=== PATIENT | male | born 2000 | race Caucasian/White ===

== ENCOUNTER 2020-12-19 14:21 | Emergency (ER) | payer OTHER, SELFPAY ==
[2020-12-19 14:35] VITALS: BP 133/93; PULSE 96; RESP 20; TEMP 37.1; O2SAT 100
--- NOTE | 2020-12-19 14:40 | ED.SKABFB ---
HPI - Skin/Abscess/Foreign Bdy General Chief complaint: Skin/Abscess/Foreign Body Stated complaint: Insect Bite Time Seen by Provider: 12/19/20 14:40 Source: patient Mode of arrival: ambulatory Limitations: no limitations History of Present Illness HPI narrative: Erick Triana is a 20 yo male with no PMH who comes to express care with a small lesion on back of L knee. States he has had some pus draining from in the last few days but there is no tenderness no induration no itching. He has been told the past he has high blood pressure he does not take any medication currently does not help PCP Related Data Allergies Allergy/AdvReac Type Severity Reaction Status Date / Time DUST MITES Allergy Unknown Uncoded 12/28/17 16:06 Molds and Smuts Allergy Unknown Uncoded 05/03/19 11:03 Review of Systems Review of Systems: Narrative: CONSTITUTIONAL: Denies fever, chills, sweats. EYES: Denies visual changes, redness, discharge. ENT: Denies rhinorrhea, congestion, sore throat, otalgia. CARDIOVASCULAR: Denies chest pain, palpitations, edema. RESPIRATORY: Denies dyspnea, wheezing, cough GASTROINTESTINAL: Denies abdominal pain, nausea, vomiting, diarrhea. GENITOURINARY: Denies dysuria, hematuria, abnormal discharge SKIN: Denies rash or itching. Lesion back of left knee that is about 2 cm no drainage NEUROLOGIC: Denies numbness, or focal weakness. PSYCHIATRIC: Denies anxiety or depression. [facility], [facility] Past Medical History Medical History Hypertension Family History Family History Other Diabetes mellitus Heart disease Hypertension Social History Social History (Updated 12/19/20 @ 14:53 by Nadine [place] CNP) Smoking status: Never smoker Alcohol intake: current Comments At time of signature, I agree with nursing past medical, surgical, social and family history. There is no relevant family history pertinent to the presenting complaint. Exam Narrative: Exam Narrative: GENERAL: This is a well-nourished, well-developed patient, in mild distress. HEAD: normocephalic, atraumatic. EYES: . Sclera clear/white. Vision is grossly intact. EARS: External ears normal, . Hearing grossly intact. NOSE: External nose normal without nasal discharge, nares without redness, no rhinorrhea. THROAT: Mucous membranes moist, NECK: Neck supple, CARDIOVASCULAR: Regular rate and rhythm without murmurs, gallops, or rubs. RESPIRATORY: Clear to auscultation. Breath sounds equal bilaterally. No wheezes, rales, or rhonchi. GASTROINTESTINAL: Abdomen soft, SKIN: warm, intact with 2 cm lesion on back of left knee with no induration no pain no tenderness it is open but no drainage or pus noted NEURO: awake, alert, and oriented to person, place and time. There were no obvious focal neurologic abnormalities. Steady gait EXTREMITIES: Normal range of motion. BACK: Nontender without deformity Course Course Emergency Course: Patient comes to [facility] states that he has a lesion on the back of his knee( left) he is concerned is a brown recluse spider bite. There is no swelling of his leg he has no tenderness of the area Started on Keflex and told to use Neosporin on area; cover when wearing clothing that will rub on the back of knee Given referral for PCP Vital Signs Vital signs: Vital Signs Temperature 98.7 F 12/19/20 14:35 Pulse Rate 96 12/19/20 14:35 Respiratory Rate 20 12/19/20 14:35 Blood Pressure 133/93 H 12/19/20 14:35 Pulse Oximetry 100 12/19/20 14:35 Temperature 98.7 F 12/19/20 14:35 Pulse Rate 96 12/19/20 14:35 Respiratory Rate 20 12/19/20 14:35 Blood Pressure 133/93 H 12/19/20 14:35 Pulse Oximetry 100 12/19/20 14:35 MDM - Skin/Abscess/Foreign Bdy Differential Diagnosis Differential diagnosis: Likely abscess of skin or subcutaneous tissue, urticaria, cellulitis, insect bites and other
== END 2020-12-19 15:02 | disposition home or self-care (01) ==
PROVIDERS: Emergency Provider Nurse Practitioner
DX: L73.9 Follicular disorder, unspecified (principal); I10 Essential (primary) hypertension; K76.0 Fatty (change of) liver, not elsewhere classified
CPT/HCPCS: 99213; G0463

== ENCOUNTER 2023-11-20 18:43 | Emergency (ER) | payer OTHER, SELFPAY ==
[2023-11-20 18:54] VITALS: BP 126/76; PULSE 60; RESP 16; TEMP 36.4; O2SAT 100
--- NOTE | 2023-11-20 19:01 | ED.ABDPAIN ---
HPI - Abdominal Pain General Chief Complaint: Abdominal Pain Stated Complaint: Stomach and Middle Chest Pain Time Seen by Provider: 11/20/23 19:01 Source: patient Mode of arrival: ambulatory Limitations: no limitations History of Present Illness HPI narrative: 23-year-old male presents with complaint of burning, bubbling and belching to epigastric region and upper esophagus for the past 2 days. Has tried Pepto-Bismol and Tums without relief. Patient reports that he has had problems with indigestion for some time but has never spoke with his primary care physician about it. Patient drinks diet Coke often. Also reports that he eats spicy foods often. Denies nausea vomiting diarrhea. Having normal bowel movements. Afebrile. All systems reviewed and negative except as noted. Related Data Allergies Allergy/AdvReac Type Severity Reaction Status Date / Time No Known Allergies Allergy Verified 11/20/23 18:50 Review of Systems Review of Systems: CONSTITUTIONAL: Denies fever, chills, or sweats. EYES: Denies visual changes, redness, or discharge. ENT: Denies rhinorrhea, congestion, sore throat, or otalgia. CARDIOVASCULAR: Denies chest pain, palpitations, or edema. RESPIRATORY: Denies cough or dyspnea. GASTROINTESTINAL: Denies abdominal pain, nausea, vomiting, or diarrhea. REports burning and bubbling to epigastric region traveling up esophagus with alot of belching. GENITOURINARY: Denies dysuria or hematuria. SKIN: Denies rash or itching. MUSCULOSKELETAL: Denies back pain, joint pain, or myalgia. NEUROLOGIC: Denies headache, numbness, or weakness. PSYCHIATRIC: Denies anxiety or depression. All other systems reviewed are negative, except as documented in HPI. PMFSH Past Medical History Medical History Hypertension Family History Family History Other Diabetes mellitus Heart disease Hypertension Social History Social History (Updated 12/19/20 @ 14:53 by Nadine [place], MAYRLOU) Smoking status: Never smoker Alcohol intake: current Comments At time of signature, agree with nursing past medical, surgical, social and family history. There is no relevant family history pertinent to the presenting complaint. Exam Narrative: GENERAL: This is a well-nourished, well-developed patient, in no apparent distress. HEAD: normocephalic, atraumatic. EYES: PERRL. Sclera clear/white. Vision is grossly intact. EARS: External ears normal NOSE: External nose normal NECK: Neck supple, non-tender without lymphadenopathy, masses or thyromegaly. CARDIOVASCULAR: Regular rate and rhythm without murmurs, gallops, or rubs. RESPIRATORY: Clear to auscultation. Breath sounds equal bilaterally. No wheezes, rales, or rhonchi. GASTROINTESTINAL: Abdomen soft, non-tender, nondistended. Bowel sounds are active. No hepato-splenomegaly, or palpable masses. No guarding. SKIN: warm, Dry, intact with no suspicious lesions or rash, good texture and turgor. NEURO: awake, alert, and oriented to person, place and time. There were no obvious focal neurologic abnormalities. EXTREMITIES: No joint tenderness, effusion, or edema noted. Course Course Level of Care: Express Care Visit Vital Signs Vital signs: Vital Signs Temperature 36.4 C 11/20/23 18:54 Pulse Rate 60 11/20/23 18:54 Respiratory Rate 16 11/20/23 18:54 Blood Pressure 126/76 11/20/23 18:54 Pulse Oximetry 100 11/20/23 18:54 Oxygen Delivery Room Air 11/20/23 18:54 Temperature 36.4 C 11/20/23 18:54 Pulse Rate 60 11/20/23 18:54 Respiratory Rate 16 11/20/23 18:54 Blood Pressure 126/76 11/20/23 18:54 Pulse Oximetry 100 11/20/23 18:54 Oxygen Delivery Room Air 11/20/23 18:54 Reviewed MDM - Abdominal Pain MDM Narrative Medical decision making narrative: no abdominal tenderness on exam. Recommend [id number] Pepcid, improving diet. Recommend follow-up with primary care physician and discuss possible referral to GI specialist. Patient is in no pain distress, nontoxic. Patient is aware of diagnosis, understands and agrees to treatment plan. Anticipatory guidance given. Patient agrees to follow-up as directed and is aware of reasons to seek care at the emergency department. Portions of this record may have been created with voice recognition software Discharge Plan Discharge Clinical Impression: Indigestion Patient Disposition: Home, Self-Care Condition: Stable Instructions: Indigestion (ED) Additional Instructions: Take over the counter pepcid twice a day for indigestion. Avoid foods that increase indigestion symptoms such as spicy, greasy, fatty foods. Carbondated beverages such as soda. Beverages with caffeine such as soda and coffee. [place] fruits and citrus beverages. Chocolate and alcohol. Avoid eating late night meals. See your doctor in 1 week for further evaluation. If you have severe abdominal pain with fever and vomiting go to the ER. Prescriptions: New famotidine 20 mg tablet 20 mg PO BID 30 Days Qty: 60 0RF Follow-up/Referrals: Lio,DAKOTAH Bonilla [Primary Care Provider] - 1 Week Time of Disposition: 19:13
== END 2023-11-20 19:18 | disposition home or self-care (01) ==
PROVIDERS: Emergency Provider Nurse Practitioner Family; PCP Physician Assistant
DX: K30 Functional dyspepsia (principal); I10 Essential (primary) hypertension
CPT/HCPCS: 99213; G0463

== ENCOUNTER 2024-07-30 15:46 | Emergency (ER) | payer OTHER, SELFPAY ==
--- NOTE | ~2024-07-30 | XR_ITS ---
Exam: Abdomen 2V HISTORY: nausea, constipation COMPARISON: None. TECHNIQUE: Supine images of the abdomen and pelvis. FINDINGS: Bowel gas pattern is non-obstructive and nonspecific. There is no free air or deep sulci. No pathologic calcifications are seen. Lung bases are unremarkable. Bones and soft tissues are unremarkable. IMPRESSION: Nonspecific, nonobstructive bowel gas pattern. Reviewed, dictated and finalized at location A. OW GLASS CUTTER OFF
--- NOTE | 2024-07-30 16:07 | ED.URI ---
HPI - URI/Sore Throat General Chief Complaint: Upper Respiratory Infection Stated Complaint: Nausea,Headache,Chills Time Seen by Provider: 07/30/24 16:15 Source: patient and RN notes reviewed Mode of arrival: ambulatory Limitations: no limitations History of Present Illness HPI Narrative: 24-year-old male presented for complaint of nausea for 3 days. Endorses a small episode of vomiting this morning, chills and headache intermittently. Two days ago he went to an outside emergency room on 2 separate occasions for complaint of nausea. He returned the 2nd time requesting a CT scan stating he was dizzy, and was given Ativan but no scan. He says he was prescribed Zofran which helps temporarily. States he had no pain last evening, but pain returned today, and is worse in the mornings. Patient admits to constipation for about 2 weeks. He states he has taken laxatives and several enemas x4 days, but continues to have small stools. Patient denies abdominal pain, hematochezia, melena, fevers or chills. Endorses a diagnosis of gastritis and H pylori 6-8 months ago, and takes pantoprazole occasionally. Stopped taking semaglutide 2 weeks ago. Related Data Home Medications ?Medication ?Instructions ?Recorded ?Confirmed ?Last Taken ?Type pantoprazole 40 mg tablet,delayed 40 mg PO QAM 12/24/23 Unknown History release Allergies Allergy/AdvReac Type Severity Reaction Status Date / Time No Known Allergies Allergy Verified 07/30/24 15:54 Review of Systems Review of Systems: per HPI All systems reviewed & are unremarkable except as noted in HPI and below PMFSH Past Medical History Medical History (Updated 07/30/24 @ 16:46 by Jeanie Lino APRN) H. pylori infection Gastritis Hypertension Surgical History Surgical History History of tonsillectomy Family History Family History Other Diabetes mellitus Heart disease Hypertension Social History Social History Smoking status: Never smoker Alcohol intake: current Substance use: never Do You Feel Safe in your Home?: Yes Lack of Transportation: No Lack of Food: Never True Current Housing: I Have Housing Concerned About Future Housing: No Difficulty Paying Gas/Electric Bills: No Difficulty Paying for Meds: No Currently Unemployed: YES Education: High School Diploma/GED Difficulty w/ Childcare or Family Care: No Comments At time of signature, I have reviewed and agree with nursing past medical, surgical, social and family history unless otherwise noted. Please see nursing chart for further information. There is no relevant family history pertinent to the presenting complaint Exam Narrative: GENERAL: Well-appearing, and in no acute distress. EYES: EOMI. Conjunctivae normal. ENT: Mucous membranes pink and moist. CHEST: No respiratory distress. Clear to auscultation. HEART: Regular rate and rhythm. No murmur appreciated. Normal peripheral pulses. ABDOMEN: abd soft, nondistended, normal active bowel sounds. Nontender abdomen; No guarding, rebound tenderness, asymmetry EXTREMITIES: Normal range of motion. No edema. SKIN: Warm, dry, no rash. Capillary refill normal. Normal skin turgor. NEURO: No focal deficits. Alert and oriented x3. PSYCH: flat affect, appears anxious Course Course Emergency Course: Patient is aware of diagnosis, understands and agrees to treatment plan. Anticipatory guidance given. Patient agrees to follow-up as directed and is aware of reasons to seek care at the emergency department. Portions of this record may have been created with voice recognition software Level of Care: Express Care Visit Vital Signs Vital signs: Vital Signs Temperature 97.4 F L 07/30/24 16:17 Pulse Rate 69 07/30/24 16:17 Respiratory Rate 16 07/30/24 16:17 Blood Pressure 146/89 H 07/30/24 16:17 Pulse Oximetry 99 07/30/24 16:17 Temperature 97.4 F L 07/30/24 16:17 Pulse Rate 69 07/30/24 16:17 Respiratory Rate 16 07/30/24 16:17 Blood Pressure 146/89 H 07/30/24 16:17 Pulse Oximetry 99 07/30/24 16:17 MDM - URI/Sore Throat MDM Narrative Medical decision making narrative: Discussed physical exam findings, neg flu and covid. Offered Rx metoclopramide, refill ppi, and abdominal xray. Pt declined and states he will probably go to another ER. Planned for DC. Advised supportive measures and signs/symptoms to go to the ER. Pt is appropriate for outpt treatment and f/u. At discharge he decided he was agreeable to the abdominal xray. Abdominal xray reviewed with pt. He says he will f/u with pcp tomorrow, nausea is improving and 'it comes and goes.' Advised supportive measures and signs/symptoms to go to the ER. Pt is appropriate for outpt treatment and f/u. Differential Diagnosis Differential diagnosis: Likely other (GERD, PUD, gastritis, pancreatitis, gallbladder disease, hepaitits, acute NM, pericarditis, aortic dissection, pneumonia, pyelonephritis, bowel obstruction, PE, ingested foreign body) Lab Data Labs: Lab Results 07/30/24 Range/Units 16:27 POC Influenza A Ag Negative (Negative) POC Influenza B Ag Negative (Negative) POC SARS CoV-2 Ag Negative (Negative) Discharge Plan Discharge Clinical Impression: Nausea Patient Disposition: Home, Self-Care Condition: Stable Instructions: Acute Nausea and Vomiting (ED) Additional Instructions: Stay hydrated. Take small sips of fluid containing electrolytes frequently. Clear liquids (broth, jello, tea, sprite, pedialyte) slowly advance to [place] foods (bananas, rice, applesauce, toast, crackers) Avoid fatty, greasy, fried or spicy foods. Limit dairy until symptoms are improved. Take the zofran and pantoprazole as previously prescribed Follow-up with your PCP tomorrow. Go to the ER for worsening symptoms or concerns Patient Language: Austrian Prescriptions: No Action pantoprazole 40 mg tablet,delayed release (DR/EC) 40 mg PO QAM Follow-up/Referrals: Lio,DAKOTAH Bonilla [Primary Care Provider] - Time of Disposition: 18:28
[2024-07-30 16:17] VITALS: BP 146/89; PULSE 69; RESP 16; TEMP 36.3; O2SAT 99
[2024-07-30 16:29] LABS: EDCOVIDSCREEN Negative (Negative); EDINFLUASCREEN Negative (Negative); EDINFLUBSCREEN Negative (Negative)
--- OUTSIDE RECORDS SUMMARY | 2024-08-06 19:02 | XMS_ITS | Encounter Summary ---
Author Organization [facility] Address [address] [facility] [place] [address] Care Team Providers Care [employer] Liaison Officer Name Role Phone Godfrey Curry MD Primary Care Provider Dipika Reddy MD Unavailable Reason for Visit * Reason Onset Date Comments Concerns 02/03/2019 Encounter Details Date Type Department Care Team (Late st Contact Info) Description 02/03/[address] [facility] - [facility] [address] [place] [id number] Godfrey Curry MD [address] [place] [phone] Concerns Social History Tobacco Use Types Packs/Day Years Used Date Smoking Tobacco: Never Smokeless Tobacco: Never Alcohol Use Standard Drinks/Week Comments No 0 (1 standard drink = 0.6 oz pur e alcohol) Sex and Gender Information Value Date Recorded Sex Assigned at Not on file Gender Identity Not on file Sexual Orientation Not on file documented as of this encounter Functional Status Functional Status Response Date of Assess ment Is person deaf or have serious hearing difficult y? No 01/20/2018 Is person blind or have serious difficulty seein g? No 01/20/2018 Does person have serious dif ficulty walking/climbing stairs? No 01/20/2018 Does person have difficulty dressing/bathing? No 01/20/2018 Does person have difficulty doing errands alone? No 01/20/2018 Cognitive Status Response Date of Assessm ent Does person have difficulty concentrating/remembering/making decisions? No 01/20/2018 documented as of this encounter Miscellaneous Notes * Telephone Encounter - Sarika Issa MD - 02/03/2019 4:20 PM CDT Mom reports that Erick has had knots on his testicles for quite awhile now. He says one is getting larger. They are not painful and he is having no other symptoms. Does not sound like testicular torsion. Advised that mother make an acute visit for him to come in to be examined. Transferred her to appointment line. Nemesio Issa * Telephone Encounter - Jelly Moulton - 02/03/2019 3:49 PM CDT Erick Triana's, 18 year old male, mother is calling with concerns. Mother requested to speak to or a provider about some concerns she's having about the pt. Mother did not disclose concerns in details but requested a provider please call her back at [phone] Instructed that provider will call back at their earliest convenience. Jelly Moulton 1673 documented in this encounter Plan of Treatment Not on file documented as of this encounter Visit Diagnoses Not on filedocumented in this encounter Care Teams [employer] Liaison Officer Relationship Specialty Start Date End Date Godfrey Curry MD [address] [place] [phone] PCP - General Pediatrics 05/01/14 Dipika eRddy MD [address] [place] [phone] Resident Student Resident 11/27/15 documented as of this encounter
--- OUTSIDE RECORDS SUMMARY | 2024-08-06 19:02 | XMS_ITS | Encounter Summary ---
Author Organization [facility] Address [address] [facility] [place] [address] Care Team Providers Care Outpatient Scheduler Name Role Phone Godfrey Curry MD Primary Care Provider Dipika Reddy MD Unavailable Reason for Visit * Auth/Cert Specialty Diagnoses / Procedures Referred By Contac t Referred To Contact Diagnoses Elevated liver enzymes Elevated liver enzymes [R74.8] Procedures BIOPSY LIVER (NEEDLE/PERCUTANEOUS) Referral ID Status Reason Start Date Expiration Date Visits Re quested Visits Authorized [id number] 1 1 Encounter Details Date Type Department Care Team (Late st Contact Info) Description 01/20/2018 10:48 AM CDT Anesthesia Event [facility] - Endoscopy [address] [place] [address] Js Lang MD [facility] [place] [address] Alok Cisneros MD [address] [place], [place] [id number] Anesthesia Record Procedure Summary Procedure Name Responsible Anesthesiologist Anesthesia Start Time Anesthesia Stop Time BIOPSY LIVER (NEEDLE/PERCUTANEOU S) (Abdomen) Js Lang MD 01/20/18 1048 01/20/18 1110 Events Date Time Event Comment 01/20/2018 0919 1048 An Start 1048 An Start Data 1049 PT Reassessment 1050 An Induction 1056 Timeout Anesthesia part icipated in timeout at the time documented in the record by nursing. 1106 An Emergence 1106 an stop data 1106 Electnc Sig 1106 ANPTO2 1110 An Stop Meds Name Total fentaNYL 100 mcg/2mL injection 25 mcg midazolam 2 mg/2mL injection 2 mg propofol 200mg/20mL injection 300.82 mg isolyte-S pH 7.4 infusion 300 mL * Agents Name Insp. N2O Exp. Sevoflurane Insp. Sevoflurane * Blood No blood administrations on file. Lines, Drains, and Airways Type Details Placement Removal Peripheral IV Date: 01/20/18; Time: 926; Orientation: Left; Placed By: Oliver Lu RN; Tolerance: Well 01/20/18 0927 by Lena Lu RN 01/20/18 1533 by Asif Bateman RN Procedural Site (Incision) 01/20/18; 0959; Right; Flank; 01/20/18; 213901/20/18 0959 by Anna Raman RN 01/20/182139 by Generic, Auto Release documented in this encounter Social History Tobacco Use Types Packs/Day Years Used Date Smoking Tobacco: Never Smokeless Tobacco: Never Alcohol Use Standard Drinks/Week Comments No 0 (1 standard drink = 0.6 oz pur e alcohol) Sex and Gender Information Value Date Recorded Sex Assigned at Not on file Gender Identity Not on file Sexual Orientation Not on file documented as of this encounter Progress Notes * Js Lang MD - 01/20/2018 11:14 AM CDT ANESTHESIA POSTOP EVALUATION NOTE Procedure: BIOPSY LIVER (NEEDLE/PERCUTANEOUS) (Abdomen) Erick Triana is a 17 y.o. male Patient Vitals for the past 6 hrs: BP Temp Pulse Resp SpO2 O2 DEVICE Pain Scale/Observation Pain Rating Score #1 Functional Goal # Sedation Level 01/20/18 0949 117/75 - - - - - - - - - 01/20/18 0911 - 98 ??F (36.7 ??C) 78 16 98 % Room Air No/denies pain;N 0 3 1- Awake and alert Anesthesia Type: MAC Pre-op Diagnosis Codes: * Elevated liver enzymes [R74.8] Postop Diagnosis: See Surgeon Note Mental Status: awake, sufficiently recovered from acute administration of anesthesia to participatein the evaluation and neurologic status has returned to perioperative level Neuro Status: No numbess, tingling or visual disturbances Respiratory Function: natural Cardiac Function: stable Postop Pain: acceptable to the patient Postop Hydration: adequate Postop Nausea: none Assessment: patient tolerated procedure well, no apparent anesthetic complications and no evidence of recall Patient Disposition: Release from Anesthesia Care documented in this encounter Consult Notes * Js Lang MD - 01/20/2018 9:19 AM CDT ANESTHESIA PREOPERATIVE EVALUATION NOTE Procedure: BIOPSY LIVER (NEEDLE/PERCUTANEOUS) (Abdomen) Vitals: Patient Vitals for the past 6 hrs: Temp Pulse Resp SpO2 O2 DEVICE Pain Scale/Observation Pain Rating Score #1 Functional Goal # Sedation Level 01/20/18 0911 98 ??F (36.7 ??C) 78 16 98 % Room Air No/denies pain;N 0 3 1-Awake and alert ANESTHESIA PRE-EVALUATION NOTE History of Present Illness: The patient is a 17-year-old boy with obesity, well- controlled asthma, and elevated liver enzymes (labs checked to start accutane) who is scheduled for liver biopsy with anesthesia. No GERD, KEYANA, or recent URI. NKDA. Grandmother had PONV after anesthesia. Physical Exam: Airway/Mallampati Score: I Mouth Opening Distance: 3 fingerwidths Teeth: normal Heart: regular rate rhythm Lungs: normal Abdomen Exam: obese Review of Systems: History of anesthetic complications: No GERD: GERD: No Shortness of Breath: No ANESTHESIA PLAN ASA Score: 2 NPO Status: No solids since midnight and No liquids within 2 hours Anesthesia Plan: MAC Planned Induction: intravenous Planned Postop Destination: PACU Anesthetic plan was discussed with: family, mother Anesthetic Plan discussion was: Consented The patient's procedural Anesthetic Plan with discussed with the resident. BMI, Height, Weight Tobacco History Estimated body mass index is 36.11 kg/(m^2) as calculated from the following: Height as of this encounter: 1.79 m (5' 10.47 ). Weight as of this encounter: 115.7 kg (255 lb 1.2 oz). History Smoking Status ??? Never Smoker Smokeless Tobacco ??? Never Used Alcohol History Drug History History Alcohol Use No History Drug Use No Outpatient Medications: Inpatient Medications: No current outpatient prescriptions on file. No current facility-administered medications for this encounter. Allergies: No Known Allergies Problem List: Patient Active Problem List Diagnosis Date Noted ??? Elevated liver enzymes 11/10/2017 Priority: Not Prioritized ??? Viral URI 07/12/2015 Priority: Not Prioritized ??? Allergic pharyngitis 12/03/2014 Priority: Not Prioritized ??? Acne 08/23/2015 Onset age 12-13; moderate, inflammatory and comedonal; no Rx; family more motivated to treat than pt; KP; Dad and Grandfather with scarring acne 01/20/16 improvement using ~ 8 g tretinoin and clindamycin per month; significant concern; add BP wash, increase med use, add doxy 50 mg BID 10/14/16 no change S/P minimal meds (filled 1 mo supply 01/2016 only)ec review reviewed treatment details, emphasized the importance of med adherence; Rx doxy 50mg BID, Clindagel, Retin-A 0.05% cr QHS, OTC BPO 07/07/17 reported improvement using therapy, relapse off; restart doxy, tretinoin, BP wash 10/01/17 moderate on max conservative tx; reviewed isotretinoin/iPLEDGE; baseline labs - plan to start 30mg/d (goal 80mg/day) ??? Follow up 05/07/2014 ??? Myopia 11/02/2013 ??? WCC (well child check) 11/02/2013 ??? Obesity 11/02/2013 with acanthosis nigricans and transaminitis (consider RUTLEDGE) 10/05/2017 GI referral Component 10/01/17 11/02/13 Alk Phos 86 (L) ALT 175 (H) 348 (H) AST 66 (H) 164 (H) Protein Total 7.5 Albumin 4.6 Bili 0.4 eGFR Cholesterol 70 TG 109 HDL 31 (L) LDL <20 VLDL CALC (SLH) 22 Chol HDL Ratio <=5.0 2.3 ??? Allergic rhinitis 05/19/2011 ??? Keratosis pilaris 05/19/2011 Upper>lower arms; face; complicated by folliculitis 01/22/16 LE skin Cx neg Strep, neg Staph 10/14/16 unchanged 10/01/17 prominent Medical History: Past Medical History: Diagnosis Date ??? Acne ??? Allergic rhinitis 05/19/2011 ??? Anatomic airway obstruction ??? Ear infection ??? KEYANA (obstructive sleep apnea) post T&A 2006--continued snoring sleep study 09/22/10 AHI 1.5 O2 desat 91% ??? Seasonal allergies ??? Sinusitis ??? Strep throat ??? Thyroid activity decreased ??? Torsion of testicle R testicle ??? Warts Surgical History: Past Surgical History: Procedure Laterality Date ??? ADENOIDECTOMY ??? Tonsillectomy ??? Tonsillectomy and Adenoidectomy 04/01/07 Lab Tests: Recent Labs Component Name 11/12/17 0957 WBC 6.5 HGB 15.3 HCT 45.6 PLTCOUNT 293 INR 1.0 PTT 25.3 Recent Labs Component Name 11/12/17 0957 SODIUM 140 POTASSIUM 4.1 CHLORIDE 104 CO2 27 BUN 17.4 CREATININE 0.68 Recent Labs Component Name 11/12/17 0957 GLUCOSE 85 CALCIUM 9.85 ALT 176* AST 71* No results for input(s): HCG in the last 34674 hours. documented in this encounter Miscellaneous Notes * Addendum Note - Js Lang MD - 01/26/2018 1:22 PM CDT Addendum created 01/26/18 1322 by Js Lang MD Anesthesia Staff edited * Anesthesia Transfer of Care - Alok Cisneros MD - 01/20/2018 11:13 AM CDT ANESTHESIA TRANSFER OF CARE NOTE Today's Date: 01/20/2018 Date of : 2000 Patient: Erick Triana Procedure(s): BIOPSY LIVER (NEEDLE/PERCUTANEOUS) Surgeon(s): Primary: Jose Rafael Thompson MD Preop Diagnosis: Pre-op Diagnois: * Elevated liver enzymes [R74.8] Post-op Diagnosis: * Elevated liver enzymes [R74.8] . No Known Allergies Vitals: Patient Vitals for the past 3 hrs: BP Temp Pulse Resp SpO2 O2 DEVICE Pain Scale/Observation Pain Rating Score #1 Functional Goal # Sedation Level 01/20/1849 117/75 - - - - - - - - - 01/20/18 0911 - 98 ??F (36.7 ??C) 78 16 98 % Room Air No/denies pain;N 0 3 1- Awake and alert Lines, Drains, and Airways Type Details Placement Removal Peripheral IV 01/20/18; 926; Left; Hand; C Aly RN; 20 Gauge; insyte; Anatomical Landmarks; 2; None; Well 01/20/18926 by Lena Lu RN Intraprocedure I/O Totals isolyte-S pH 7.4 infusion Volume infused 300 ml Patient Transfer Location: PACU Transport Airway: supplemental O2 and spontaneous respirations Transport Monitoring: heart rate and continuous pulse oximetry Complications: None Handoff Given? Yes Checklist or Protocol - The guido handoff elements that must be included in the transfer of care checklist include: 1. Identification of patient. 2. Identification of responsible practitioner (PACU nurse or advanced practitioner). 3. Discussion of pertinent medical history. 4. Discussion of the surgical/procedure course (procedure, reason for surgery, procedure performed). 5. Intraoperative anesthetic management and issue/concerns. 6. Expectations/Plans for the early post-procedure period. 7. Opportunity for questions and acknowledgement of understanding of report from the receiving PACUteam. Alok Cisneros MD documented in this encounter Plan of Treatment Not on file documented as of this encounter Visit Diagnoses Not on filedocumented in this encounter Administered Medications Inactive Administered Medications - up to 3 most recent administrations Medication Order MAR Action Action Date Dose Rate Site fentaNYL (PF) (SUBLIMAZE) injection PRN, Starting on Karen 01/20/18 at 1050, Until Karen 01/20/18 at 1113, Anesthesia Intra-op $ Given 01/20/2018 10:50 AM CDT 25 mcg isolyte-S pH 7.4 infusion CONTINUOUS PRN, Starting on Karen 01/20/18 at 1050, Until Karen 01/20/18 at 1113, Anesthesia Intra-op $ New Bag/Syringe 01/20/2018 10:50 AM CDT midazolam (VERSED) injection PRN, Starting on Karen 01/20/18 at 1046, Until Karen 01/20/18 at 1113, Anesthesia Intra-op $ Given 01/20/2018 10:46 AM CDT 2 mg propofol (DIPRIVAN) injection CONTINUOUS PRN, Starting on Karen 01/20/18 at 1050, Until Karen 01/20/18 at 1113, Anesthesia Intra-op $ New Bag/Syringe 01/20/2018 10:50 AM CDT 200 mcg/kg/min 138.84 mL/hr documented in this encounter Care Teams Outpatient Scheduler Relationship Specialty Start Date End Date Labarge, Godfrey Zapata MD [facility] [place] [phone] PCP - General Pediatrics 05/01/14 Dipika Reddy MD [address] [place] [phone] Resident Student Resident 11/27/15 documented as of this encounter
--- OUTSIDE RECORDS SUMMARY | 2024-08-06 19:02 | XMS_ITS | Patient Health Summary ---
Author Organization [facility] Address [address] [place] [address] Care Team Providers Care Svp Monetization Name Role Phone Godfrey Curry MD Primary Care Provider [phone] Dipika Reddy MD Unavailable [phone] Note from [facility],non-owned Affiliates and Associated Physician Practices is amultiple site organization consisting of ambulatory clinics and hospital sitesin [place], [place], [place]. This disclosure is being madepursuant to the Care Everywhere program and may not contain all information available regarding this patient. Last updated 18.[facility] Allergies No known active allergies* Other,Inactive Medications * Be aware that medications may not be up to date on this document. Alwaysverify current medications with the patient. * levocetirizine (XYZAL) 5 MG tablet Take 5 mg by mouth once daily * tretinoin (RETIN-A) 0.05 % cream(Started 07/05/2017) Apply to affected area at bedtime 1 refill remaining * benzoyl peroxide (BENZOYL PEROXIDE) 5 % wash(Started 07/05/2017) Apply to affected area once daily * ibuprofen (MOTRIN) 200 MG tablet Take 400 mg by mouth every 6 hours as needed for Pain * fluticasone propionate (FLONASE) 50 MCG/ACT nasal spray(Started 05/19/2018) [place] 1 spray into each nostril once daily Collaborating Physician: Trevor Mak MD Active Problems Problem Noted Date Diagnosed Date Elevated liver enzymes 11/10/2017 Acne 08/23/2015 Viral URI 07/12/2015 Allergic pharyngitis 12/03/2014 Follow up 05/07/2014 Myopia 11/02/2013 WCC (well child check) 11/02/2013 Obesity 11/02/2013 Allergic rhinitis 05/19/2011 Keratosis pilaris 05/19/2011 Resolved Problems Problem Noted Date Diagnosed Date Resolved Date Cough 05/19/2011 11/02/2013 ADHD (attention deficit hype ractivity disorder) 03/23/2011 12/04/2015 Oppositional defiant disorder 03/23/2011 12/04/2015 Restless legs syndrome (RLS) 12/07/2010 12/04/2015 KEYANA (obstructive sleep apnea) 12/07/2010 12/04/2015 Poor sleep hygiene 12/07/2010 6 Immunizations * DTaP VACCINE IM (6wk-6yrs)(Given 03/19/2006, 01/19/2002, 01/17/2001, 2000, 2000) * HEP A PEDS 2 DOSE(Given 03/19/2006, 10/08/2004) * HEP B VACCINE, PED/ADOL(Given 12/04/2015, 01/19/2002, 2000, 2000) * HIB-PRP-OMP 3 DOSE(Given 01/19/2002, 2000, 2000) * Human Papilloma Virus Vaccine(Given 08/08/2012, 09/25/2011, 07/24/2011) * INFLUENZA(Given 08/17/2013, 06/23/2011) * INFLUENZA VACCINE, QUADR. (FLUZONE; FLULAVAL; FLUARIX; AFLURIA QUADRIVALENT; 6MO+), 0.5 ML (IIV4)(Given 07/12/2015) * MENINGOCOCAL MENINGITIS(Given 07/24/2011) * MMR(Given 03/19/2006, 07/22/2001) * PNEUMOCOCCAL PCV7 CONJ, PEDS(Given 01/19/2002, 01/17/2001, 2000, 2000) * POLIO IPV(Given 03/19/2006, 07/22/2001, 2000, 2000) * TDAP (7yrs+)(Given 07/24/2011) * VARICELLA(Given 12/04/2015, 07/22/2001) Social History Tobacco Use Types Packs/Day Years Used Date Smoking Tobacco: Never Smokeless Tobacco: Never Alcohol Use Standard Drinks/Week Comments No 0 (1 standard drink = 0.6 oz pur e alcohol) Sex and Gender Information Value Date Recorded Sex Assigned at Not on file Gender Identity Not on file Sexual Orientation Not on file Last Filed Vital Signs Vital Sign Reading Time Taken Comments Blood Pressure 150/80 10/25/2018 7:23 PM CDT Pulse 88 10/25/2018 7:24 PM CDT Temperature 36.7 ??C (98 ??F) 10/25/2018 7:23 PM CDT Respiratory Rate 24 10/25/2018 7:24 PM CDT Oxygen Saturation 99% 10/25/2018 7:24 PM CDT Inhaled Oxygen Concentration - - Weight 136.8 kg (301 lb 9.4 oz) 10/25/2018 7:23 PM CDT Height 182.9 cm (6') 05/19/2018 3:25 PM CDT Body Mass Index - - Procedures * EKG 15-LEAD(Performed 10/25/2018) Performed for Other chest pain * XR CHEST 2VW(Performed 10/25/2018) Performed for Other chest pain * HGB HCT PANEL(Performed 01/20/2018) Performed for Liver disorder * US GUIDE NEEDLE PLACEMENT(Performed 01/20/2018) Performed for Elevated liver enzymes * VIRAL CULTURE MISC(Performed 01/20/2018) Performed for Obesity, unspecified classification, unspecified obesity type, unspecified whether serious comorbidity present * BIOPSY LIVER (NEEDLE/PERCUTANEOUS)(Performed 01/20/2018) Performed for Elevated liver enzymes * PATHOLOGY TISSUE EXAM (STL)(Performed 01/20/2018) Performed for Elevated liver enzymes * BLOOD TYPE VERIFICATION(Performed 01/20/2018) * NEEDLE BIOPSY, LIVER(Performed 01/20/2018) Performed for Liver disorder * PREPARE RBC LEUKOREDUCED UNIT(Performed 01/20/2018) * TYPE + SCREEN PANEL(Performed 01/20/2018) Performed for Elevated liver enzymes * PT PTT PANEL(Performed 01/20/2018) Performed for Elevated liver enzymes * CBC W AUTO DIFFERENTIAL(Performed 01/20/2018) Performed for Elevated liver enzymes * CK BLOOD(Performed 11/12/2017) Performed for Liver disorder * PT-INR(Performed 11/12/2017) Performed for Liver disorder * PTT(Performed 11/12/2017) Performed for Liver disorder * TISSUE TRANSGLUTAMINASE AB IGA(Performed 11/12/2017) Performed for Liver disorder * TSH(Performed 11/12/2017) Performed for Liver disorder * IGA BLOOD(Performed 11/12/2017) Performed for Liver disorder * HEPATITIS SCREEN ACUTE(Performed 11/12/2017) Performed for Liver disorder * GGT(Performed 11/12/2017) Performed for Liver disorder * C-REACTIVE PROTEIN(Performed 11/12/2017) Performed for Liver disorder * COMPREHENSIVE METABOLIC PANEL(Performed 11/12/2017) Performed for Liver disorder * CERULOPLASMIN(Performed 11/12/2017) Performed for Liver disorder * BILIRUBIN DIRECT(Performed 11/12/2017) Performed for Liver disorder * SMOOTH MUSCLE ANTIBODY(Performed 11/12/2017) Performed for Liver disorder * MICROSOMAL ANTIBODY LIVER/KIDNEY(Performed 11/12/2017) Performed for Liver disorder * LORI BLOOD SCREEN W/REFLEX TITER(Performed 11/12/2017) Performed for Liver disorder * AMYLASE BLOOD(Performed 11/12/2017) Performed for Liver disorder * LOIJU-0-[id number] BLOOD(Performed 11/12/2017) Performed for Liver disorder * CBC W AUTO DIFFERENTIAL(Performed 11/12/2017) Performed for Liver disorder * TRIGLYCERIDES BLOOD(Performed 10/01/2017) Performed for Encounter for medication monitoring * COMPREHENSIVE METABOLIC PANEL(Performed 10/01/2017) Performed for Encounter for medication monitoring * CBC W AUTO DIFFERENTIAL(Performed 10/01/2017) Performed for Encounter for medication monitoring * CULTURE FUNGUS SKIN HAIR NAIL+FUNGUS SMEAR(Performed 07/05/2017) Performed for Acne vulgaris * CULTURE STAPH AUREUS+STREP A(Performed 01/20/2016) Performed for Acne vulgaris * STREP A SCREEN - POCT (IP) BEAKER(Performed 07/12/2015) * CULTURE STREP GROUP A(Performed 02/04/2015) * STREP A SCREEN DIRECT W RFLX STREP A CULTURE(Performed 02/04/2015) * XR ABD OBSTRUCTION SERIES 2VW(Performed 10/03/2014) Performed for Abdominal pain * URINE MICROSCOPIC ONLY(Performed 10/02/2014) * URINALYSIS REFLEX TO MICROSCOPIC NO CULTURE(Performed 10/02/2014) * CULTURE STREP GROUP A(Performed 04/15/2014) * STREP A SCREEN DIRECT W RFLX STREP A CULTURE(Performed 04/15/2014) * STREP A SCREEN DIRECT W RFLX STREP A CULTURE(Performed 12/18/2013) * CULTURE STREP GROUP A(Performed 12/18/2013) * AST BLOOD(Performed 11/02/2013) Performed for Obesity * ALT(Performed 11/02/2013) Performed for Obesity * LIPID PROFILE(Performed 11/02/2013) Performed for Obesity * URINALYSIS REFLEX TO MICROSCOPIC NO CULTURE(Performed 08/17/2013) * CULTURE URINE(Performed 08/17/2013) * URINE MICROSCOPIC ONLY(Performed 08/17/2013) * LAB RESULTS ORDER(Performed 05/17/2012) * FERRITIN(Performed 04/17/2011) Performed for Restless legs syndrome (RLS) * FERRITIN(Performed 11/13/2010) Performed for Restless legs syndrome (RLS) * PEDIATRIC DIAGNOSTIC POLYSOMNOGRAM(Performed 09/22/2010) * GROSS EXAM PATHOLOGY(Performed 04/01/2007) Results * EKG 15-LEAD (10/25/2018 8:39 PM CDT) Ventricular Rate 74 BPM CG MUSE Atrial Rate 74 BPM CG MUSE P-R Interval 154 ms CG MUSE QRS Duration ms 118 ms CG MUSE Q-T Interval ms 382 ms CG MUSE QTC Calculation (Bezet) 424 ms CG MUSE Calculated P [place] 23 degrees CG MUSE Calculated R [place] -17 degrees CG MUSE Calculated T [place] 22 degrees CG MUSE Interpretation EKG Normal sinus rhythm with sinus arrhythmia Leftward axis No previous ECGs available Confirmed by MICHELET FABIAN ([id number]) on 11/01/2018 12:17:17 PM CG MUSE 10/25/2018 8:39 PM CDT 11/01/2018 12:17 PM CDT Shauna Robles MD ECG ORDERABLES [facility] * XR CHEST PA AND LATERAL (10/25/2018 8:36 PM CDT) Anatomical Region Laterality Modality Chest Radiographic Christine ging 10/26/2018 7:36 AM CDT Impressions 10/26/2018 7:37 AM CDT Clear lungs. Reading Radiologist: Yas Julien MD on 10/26/2018 at 7:37 AM Narrative 10/26/2018 7:37 AM CDT EXAMINATION: CHEST 2 VIEWS HISTORY: 18-year-old with chest pain. COMPARISON: None. FINDINGS: PA and lateral views of the chest demonstrate clear lungs without focal consolidation, pleural effusion, or pneumothorax. The cardiomediastinal silhouette is normal. The visible osseous structures appear intact. Procedure Note Yas Julien MD - 10/26/2018 EXAMINATION: CHEST 2 VIEWS HISTORY: 18-year-old with chest pain. COMPARISON: None. FINDINGS: PA and lateral views of the chest demonstrate clear lungs without focal consolidation, pleural effusion, or pneumothorax. The cardiomediastinal silhouette is normal. The visible osseous structures appear intact. IMPRESSION Clear lungs. Reading Radiologist: Yas Julien MD on 10/26/2018 at 7:37 AM Shauna Robles MD DIAGNOSTIC IMAGIN G ORDERABLES * HGB HCT PANEL (01/20/2018 2:51 PM CDT) Hemoglobin 14.6 13.0 - 16.0 gm/dL 01/20/2018 3:10 PM CDT [facility] Hematocrit 41.5 37.0 - 49.0 % 01/20/2018 3:10 PM CDT [facility] Blood BLOOD SPECIMEN / Unknown Venipuncture / Unknown 01/20/2018 2:51 PM CDT 01/20/2018 3:03 PM CDT Jose Rafael Thompson MD LAB - HEMATOLOGY ORD ERABLES [facility] [address] [place] [address] * US GUIDE NEEDLE PLACEMENT (01/20/2018 11:12 AM CDT) Narrative [facility] - 01/21/2018 9:35 AM CDT No Dictation. Jose Rafael Thompson MD US ORDERABLES [facility] [address] [place] [address] * VIRAL CULTURE MISC (01/20/2018 10:58 AM CDT) Viral Culture No virus isolated. 01/28/2018 8:41 AM CDT [facility] ([facility]) Microbiology NEEDLE BIOPSY OF LIVER / Unknown Collection / Unknown 01/20/2018 10:58 AM CDT 01/20/2018 11:14 AM CDT Narrative [facility] ([facility]) - 01/28/2018 8:41 AM CDT Performed at: ??01 - [facility] [address] ??[id number] Senior Quality Methods Specialist: Wesley Jose MD, Phone: ??[phone] Jose Rafael Thompson MD LAB - MICROBIOLOGY O RDERABLES [facility] ([facility]) [address] [place] [address] * GROSS + MICRO EXAM (STL) (01/20/2018 10:36 AM CDT) Case Report Surgical Pathology Report ? Case: [id number] ? Authorizing Provider: ??Jose Rafael Thompson MD ? Collected: ? 01/20/2018 10:36 AM ? Ordering Location: ? [facility] ?Received: ?01/20/2018 11:34 AM ? Pathologist: ? Judie Childs MD ? Specimen: ?Liver Needle Biopsy, please run ?EM on this specimen ? 01/21/2018 4:03 PM [facility] Final Diagnosis Liver, needle biopsy (A): - Mild steatosis and lobular inflammation - No fibrosis 01/21/2018 4:03 PM [facility] Clinical History The patient is a 17-year-old boy with elevated liver enzymes who underwent liver biopsy to rule out non-alcoholic steatohepatitis (RUTLEDGE). 01/21/2018 4:03 PM [facility] Gross Description Submitted fixed in formalin in one container for gross and microscopic examination labeled with the patient's name, Erick Triana, and liver needle biopsy, is a 1.2 cm in length x 0.1 cm in diameter core of red-brown soft tissue submitted in toto as A1. Additionally submitted in a vial of glutaraldehyde labeled with the patient's name and EM is a 0.3 cm in length x 0.1 cm in diameter core of yellow-mancia soft tissue. The specimen is held for possible electron microscopy. (CT/me) 01/21/2018 4:03 PM [facility] Microscopic Description 2 H&E slides; special stains trichrome, reticulin, PAS, PASD, iron examined. The liver biopsy shows macrovesicular steatosis involving 10-20% of hepatocytes (grade 1), centered on zone 3. There are scattered acidophil bodies present. Few inflammatory infiltrates (<2/20x field, grade 1) are present in the lobules. No ballooning or Nova-Denk bodies are seen. Portal inflammation is minimal to absent, and there is no interface activity or overt bile duct injury. The trichrome stain shows normal portal tracts and central veins without perisinusoidal, portal, or periportal fibrosis. The reticulin stain shows normal lobular architecture with few foci of condensation. The PASD is negative for eoiqt-0-fzdqkzdydop gobules but shows focal pigmented macrophages. The PAS highlights hepatic glycogen. The iron stain is negative. In the correct clinical setting, the histologic findings support a diagnosis of non alcoholic fatty liver disease, with a NAFLD activity score of 2/8. There is no fibrosis (stage 0), and in the absence of ballooning, the findings are insufficient for a diagnosis of non alcoholic steatohepatitis (RUTLEDGE). 01/21/2018 4:03 PM [facility] Disclaimer The performance characteristics of all immunohistochemical and indirect immunofluorescence stains (if any) cited in this report were determined by the Histopathology Laboratory of [facility]. Some of these tests were developed by our own laboratory and have not been cleared or approved by the US Food and Drug Administration (FDA). The FDA does not require this test to go through premarket FDA review. These tests are used for clinical purposes. They should not be regarded as investigational or for research. This laboratory is certified under the Clinical Laboratory Improvement Amendments (CLIA) as qualified to perform high complexity clinical laboratory testing. This case has been personally reviewed and interpreted by the attending (teaching) pathologist. 01/21/2018 4:03 PM [facility] Embedded Images 01/21/2018 4:03 PM T [facility] Pathology/Cytolo gy NEEDLE BIOPSY OF LIVER / Unknown 01/20/2018 10:36 AM CDT 01/20/2018 11:34 AM CDT Jose Rafael Thompson MD LAB - PATHOLOGY/CYTO LOGY ORDERABLES Performing Organization Address City/State/[facility] Co de Phone Number [facility] [address] [place] [address] * BLOOD TYPE VERIFICATION (01/20/2018 10:36 AM CDT) ABO A 01/20/2018 10:43 AM T [facility] Rh Type Positive 01/20/2018 10:43 AM T [facility] Blood Bank BLOOD SPECIMEN / Unknown Lab Venipuncture / Unknown 01/20/2018 10:36 AM CDT 01/20/2018 10:37 AM CDT Jose Rafael Thompson MD LAB - BLOOD BANK ORD ERABLES [facility] [address] [place], [place] [id number] * NEEDLE BIOPSY, LIVER (01/20/2018 9:30 AM CDT) Report Endoscopy POC _ Patient Name: Erick Triana ? Date of : 2000 ? Admit Type: Outpatient Age: 17 ? Gender: Male Attending MD: Jose Rafael Thompson MD ?Order #: [id number] _ Procedure: ? Liver biopsy Indications: ? Abnormal Liver enzymes (no detail) Providers: ? Jose Rafael Thompson MD Referring MD: ?Godfrey Curry MD Medicines: ? General anesthesia Complications: ? No immediate complications. Estimated blood loss: Minimal. _ Procedure: ? Informed consent was obtained. Aseptic technique was used. ? The point of maximal dullness was determined by ? percussion. 1% Lidocaine local anesthesia was injected. ? The depth of the liver was confirmed by spinal needle ? sounding. The liver biopsy was accomplished without ? difficulty. The patient tolerated the procedure fairly ? well. Findings: ? A 9 mm unfragmented core of tissue was obtained. The specimen was ? prepared with formalin and sent for histology. One pass was made with ? the BioPince gun using ultrasound to conor the site. Post Biopsy ? ultrasound looked okay. Impression: ?- Tissue was submitted to pathology. Recommendation: ?- Please call GI office in 2 weeks for the results. ? Keep scheduled appointments. Please keep us informed of ? patient progress. ? Do not hesitate to call GI for any questions / concerns. ? Procedure Code(s): ? --- Professional --- ? 65495, Biopsy of liver, needle; percutaneous ? 50755, Ultrasonic guidance for needle placement (eg, biopsy, aspiration, ? injection, localization device), imaging supervision and interpretation ? --- Technical --- ? 12082, Biopsy of liver, needle; percutaneous ? 02263, Ultrasonic guidance for needle placement (eg, biopsy, aspiration, ? injection, localization device), imaging supervision and interpretation Diagnosis Code(s): ? --- Professional --- ? R74.9, Abnormal serum enzyme level, unspecified ? --- Technical --- ? R74.9, Abnormal serum enzyme level, unspecified CPT copyright 2015 [employer]. All rights reserved. The codes documented in this report are preliminary and upon straight edger review may be revised to meet current compliance requirements. Dr. Jose Rafael Thompson Jose Rafael Thompson MD 01/20/2018 11:15:04 AM This report has been signed electronically. Number of Addenda: 0 Note Initiated On: 01/19/2018 9:30 AM Procedure Date: ? 01/20/2018 9:30:00 AM ? This report has been signed electronically. [facility] 01/20/2018 9:30 AM CDT Jose Rafael Thompson MD GI PROCEDURE ORDERAB LES Performing Organization Address City/State/[facility] Co de Phone Number [facility] [address] [place] [address] * PREPARE (CROSSMATCH) RBC UNIT(S), 1 Units (01/20/2018 9:15 AM CDT) Product Code [id number] [facility] Unit Donor # [id number] C [facility] ABO Donor Type A [facility] Rh Type Unit POS [facility] Unit Status Ret'd [facility] ABO Rh Type Unit APOS [facility] Donor Unit Expiration Date [id number] [facility] Blood Type Barcode [address] [facility] Blood Bank BLOOD SPECIMEN / Unknown 01/20/2018 9:15 AM CDT Jose Rafael Thompson MD LAB - BLOOD BANK ORD ERABLES Performing Organization Address [facility]/ZIP Co de Phone Number [facility] [place] [address] * TYPE + SCREEN PANEL (01/20/2018 9:09 AM CDT) ABO A 01/20/2018 10:42 AM CDT [facility] Rh Type Positive 01/20/2018 10:42 AM CDT [facility] Comment:History checked. Antibody Screen Negative 01/20/2018 10:42 AM CDT [facility] Blood Bank BLOOD SPECIMEN / Unknown Venipuncture / Unknown 01/20/2018 9:09 AM CDT 01/20/2018 9:30 AM CDT Jose Rafael Thompson MD LAB - BLOOD BANK ORD ERABLES Performing Organization Address City/[facility]/ZIP Co de Phone Number [facility] [address] [place] [address] * (ABNORMAL) PT PTT PANEL (01/20/2018 9:09 AM CDT) PT 11.7(H) 9.5 - 11.6 sec 01/20/2018 10:12 AM CDT [facility] INR 1.1 0.9 - 1.1 01/20/2018 10:12 AM CDT [facility] PTT 24.5 21.0 - 32.0 sec 01/20/2018 10:12 AM CDT [facility] Blood BLOOD SPECIMEN / Unknown Venipuncture / Unknown 01/20/2018 9:09 AM CDT 01/20/2018 9:31 AM CDT Narrative [facility] - 01/20/2018 10:12 AM CDT Conventional Warfarin Anticoagulant Therapy: INR Reference Range: ??2.0-3.0 Intensive Warfarin Anticoagulant Therapy: INR Reference Range: ? 2.5-3.5 Heparin Therapeutic Range for PTT: 47.7 - 68.6 seconds. Jose Rafael Thompson MD LAB - COAGULATION OR DERABLES [facility] [address] [place] [address] * (ABNORMAL) CBC W AUTO DIFFERENTIAL (01/20/2018 9:09 AM CDT) Only the most recent of3 resultswithin the time period is included. [facility] WBC 8.5 4.5 - 11.0 x10E9/L 01/20/2018 9:42 AM T [facility] WBC Corrected x10E9/L 01/20/2018 9:42 AM T [facility] RBC 6.07(H) 4.50 - 5.30 x10E12/L 01/20/2018 9:42 AM T [facility] Hemoglobin 16.3(H) 13.0 - 16.0 gm/dL 01/20/2018 9:42 AM T [facility] Hematocrit 47.4 37.0 - 49.0 % 01/20/2018 9:42 AM T [facility] MCV 78.1 78.0 - 98.0 fl 01/20/2018 9:42 AM T [facility] MCH 26.9 25.0 - 35.0 pg 01/20/2018 9:42 AM T [facility] MCHC 34.4 31.0 - 37.0 gm/dL 01/20/2018 9:42 AM [facility] Platelet Count 310 100 - 400 x10E9/L 01/20/2018 9:42 AM T [facility] RDW-CV 12.8 11.5 - 14.0 % 01/20/2018 9:42 AM T [facility] MPV 10.5(H) 6.0 - 9.5 fl 01/20/2018 9:42 AM T [facility] Neutrophils % 49.3 31.0 - 78.0 % 01/20/2018 9:42 AM T [facility] Lymphocytes % 36.9 13.0 - 54.0 % 01/20/2018 9:42 AM T [facility] Monocytes % 7.8 4.0 - 13.0 % 01/20/2018 9:42 AM CDT [facility] Eosinophils % 4.6 0.0 - 8.0 % 01/20/2018 9:42 AM CDT [facility] Basophils % 0.7 % 01/20/2018 9:42 AM CDT [facility] Immature Granulocytes 0.7 % 01/20/2018 9:42 AM CDT [facility] Neutrophil Absolute 4.17 x10E9/L 01/20/2018 9:42 AM CDT [facility] Lymphocytes Absolute 3.12 x10E9/L 01/20/2018 9:42 AM CDT [facility] Monocytes Absolute 0.66 x10E9/L 01/20/2018 9:42 AM CDT [facility] Eosinophils Absolute 0.39 x10E9/L 01/20/2018 9:42 AM CDT [facility] Basophils Absolute 0.06 x10E9/L 01/20/2018 9:42 AM CDT [facility] Immature Granulocytes Absolute 0.06 x10E9/L 01/20/2018 9:42 AM T [facility] nRBC Auto 0 /100 WBC 01/20/2018 9:42 AM T [facility] Blood BLOOD SPECIMEN / Unknown Venipuncture / Unknown 01/20/2018 9:09 AM CDT 01/20/2018 9:30 AM CDT Jose Rafael Thompson MD LAB - HEMATOLOGY ORD ERABLES [place] Organization Address City/State/[facility] Co nj Phone Number [facility] [place] [phone] * TISSUE TRANSGLUTAMINASE AB IGA (11/12/2017 9:57 AM CDT) TTG Antibody IgA <2 0 - 3 U/mL 11/13/2017 3:11 PM CDT [facility] ([facility]) Comment: ?Negative ?0 - ??3 ?Weak Positive ?? 4 - 10 ?Positive ? >10 Tissue Transglutaminase (tTG) has been identified as the endomysial antigen. ??Studies have demonstr- ated that endomysial IgA antibodies have over 99% specificity for gluten sensitive enteropathy. Blood BLOOD SPECIMEN / Unknown Lab Venipuncture / Unknown 11/12/2017 9:57 AM CDT 11/12/2017 10:52 AM CDT Narrative [facility] ([facility]) - 11/13/2017 3:11 PM CDT Performed at: ??01 - [facility] [address] ??[id number] Senior Quality Methods Specialist: Carlos Aleman PhD, Phone: ??[phone] Jose Rafael Thompson MD LAB - SEROLOGY ORDER ASTRID Performing Organization Address City/[facility] Co de Phone Number [facility] ([facility]) [address] [place] [address] * (ABNORMAL) C-REACTIVE PROTEIN (11/12/2017 9:57 AM CDT) Pathologist [facility] C-Reactive Protein 1.00(H) <=0.50 mg/dL 11/12/2017 11:35 AM CDT [facility] Blood BLOOD SPECIMEN / Unknown Lab Venipuncture / Unknown 11/12/2017 9:57 AM CDT 11/12/2017 10:52 AM CDT Jose Rafael Thompson MD LAB - CHEMISTRY HILDA MARIO [facility] [address] [place] [address] * LORI BLOOD SCREEN W/REFLEX TITER (11/12/2017 9:57 AM CDT) LORI Negative Negative 11/13/2017 7:25 AM CDT [facility] Blood BLOOD SPECIMEN / Unknown Lab Venipuncture / Unknown 11/12/2017 9:57 AM CDT 11/12/2017 10:52 AM CDT Jose Rafael Thompson MD LAB - CHEMISTRY HILDA MARIO Performing Organization Address City/[facility]/ZIP Co de Phone Number [facility] [address] [place] [address] * MICROSOMAL ANTIBODY LIVER/KIDNEY (11/12/2017 9:57 AM CDT) Pathologist [facility] Liver-Kidney Microsomal Antibody <1.0 0.0 - 20.0 Units 11/15/2017 4:20 PM CDT [facility] ([facility]) Comment: ?Negative ?0.0 - 20.0 ?Equivocal ??20.1 - 24.9 ?Positive ? >24.9 LKM type 1 antibodies are detected in patients with autoimmune hepatitis type 2 and in up to 8% of patients with chronic HCV infection. Blood BLOOD SPECIMEN / Unknown Lab Venipuncture / Unknown 11/12/2017 9:57 AM CDT 11/12/2017 10:52 AM CDT Narrative [facility] ([facility]) - 11/15/2017 4:20 PM CDT Performed at: ??01 - [facility] [address] [place], [place] ??[id number] Senior Quality Methods Specialist: Carlos Aleman PhD, Phone: ??[phone] Jose Rafael Thompson MD LAB - CHEMISTRY HILDA MARIO Performing Organization Address City/[facility]/ZIP Co de Phone Number [facility] ([facility]) [address] [place] [address] * CERULOPLASMIN (11/12/2017 9:57 AM CDT) Ceruloplasmin 25 17 - 54 mg/dL 11/12/2017 11:56 AM CDT [facility] Blood BLOOD SPECIMEN / Unknown Lab Venipuncture / Unknown 11/12/2017 9:57 AM CDT 11/12/2017 10:52 AM CDT Jose Rafael Thompson MD LAB - CHEMISTRY HILDA MARIO Performing Organization Address [facility]/ZIP Co de Phone Number [facility] [place] [address] * [id number] BLOOD (11/12/2017 9:57 AM CDT) [facility] Tstfw-7-Bvbfzjg psin 147 90 - 200 mg/dL 11/13/2017 8:27 AM CDT [facility] ([facility]) Blood BLOOD SPECIMEN / Unknown Lab Venipuncture / Unknown 11/12/2017 9:57 AM CDT 11/12/2017 10:52 AM CDT Narrative [facility] ([facility]) - 11/13/2017 8:27 AM CDT Performed at: ??01 - [facility] [address] [place], [place] ??[id number] Senior Quality Methods Specialist: Carlos Aleman PhD, Phone: ??[phone] Jose Rafael Thompson MD LAB - CHEMISTRY HILDA MARIO Performing Organization Address City/[facility] Co de Phone Number [facility] ([facility]) [address] [place] [address] * SMOOTH MUSCLE ANTIBODY (11/12/2017 9:57 AM CDT) Pathologist [facility] Actin (Smooth Muscle) Antibody 5 0 - 19 Units 11/13/2017 5:07 PM CDT [facility] ([facility]) Comment: ? Negative ? 0 - 19 ? Weak positive ? 20 - 30 ? Moderate to strong positive ? >30 Actin Antibodies are found in 52-85% of patients with autoimmune hepatitis or chronic active hepatitis and in 22% of patients with primary biliary cirrhosis. Blood BLOOD SPECIMEN / Unknown Lab Venipuncture / Unknown 11/12/2017 9:57 AM CDT 11/12/2017 10:52 AM CDT Narrative [facility] ([facility]) - 11/13/2017 5:07 PM CDT Performed at: ??01 - [facility] [address] [place], [place] ??[id number] Senior Quality Methods Specialist: Carlos Aleman PhD, Phone: ??[phone] Jose Rafael Thompson MD LAB - SEROLOGY ORDER ASTRID [facility] ([facility]) [address] [place] [address] * PTT (11/12/2017 9:57 AM CDT) PTT 25.3 21.0 - 32.0 sec 11/12/2017 11:24 AM CDT [facility] Blood BLOOD SPECIMEN / Unknown Lab Venipuncture / Unknown 11/12/2017 9:57 AM CDT 11/12/2017 10:52 AM CDT Narrative [facility] - 11/12/2017 11:24 AM CDT Heparin Therapeutic Range for PTT: 47.7 - 68.6 seconds. Jose Rafael Thompson MD LAB - COAGULATION OR DERABLES [facility] [place] [address] * PT-INR (11/12/2017 9:57 AM CDT) PT 10.5 9.5 - 11.6 sec 11/12/2017 11:24 AM CDT [facility] INR 1.0 0.9 - 1.1 11/12/2017 11:24 AM CDT [facility] Blood BLOOD SPECIMEN / Unknown Lab Venipuncture / Unknown 11/12/2017 9:57 AM CDT 11/12/2017 10:52 AM CDT Narrative [facility] - 11/12/2017 11:24 AM CDT Conventional Warfarin Anticoagulant Therapy: INR Reference Range: ??2.0-3.0 Intensive Warfarin Anticoagulant Therapy: INR Reference Range: ? 2.5-3.5 Jose Rafael Thompson MD LAB - COAGULATION OR DERABLES Performing Organization Address City/State/[facility] Co [place] Phone Number [facility] [address] [place] [address] * (ABNORMAL) COMPREHENSIVE METABOLIC PANEL (11/12/2017 9:57 AM T) Only the most recent of2 resultswithin the time period is included. [facility] Glucose 85 70 - 105 mg/dL 11/12/2017 11:35 AM [facility] Sodium 140 136 - 145 mmol/L 11/12/2017 11:35 AM [facility] Potassium 4.1 3.5 - 5.1 mmol/L 11/12/2017 11:35 AM [facility] Chloride 104 98 - 107 mmol/L 11/12/2017 11:35 AM [facility] CO2 27 20 - 28 mmol/L 11/12/2017 11:35 AM [facility] Calcium 9.85 9.08 - 10.48 mg/dL 11/12/2017 11:35 AM [facility] Anion Gap 9 5 - 20 mmol/L 11/12/2017 11:35 AM [facility] BUN 17.4 5.3 - 18.7 mg/dL 11/12/2017 11:35 AM [facility] Creatinine 0.68 0.61 - 1.07 mg/dL 11/12/2017 11:35 AM [facility] Alkaline Phosphatase 76(L) 100 - 390 U/L 11/12/2017 11:35 AM [facility] ALT 176(H) 6 - 46 U/L 11/12/2017 11:35 AM [facility] AST 71(H) 3 - 35 U/L 11/12/2017 11:35 AM [facility] Protein Total 7.7 6.3 - 8.2 gm/dL 11/12/2017 11:35 AM CDT [facility] Albumin 4.7 3.3 - 4.9 gm/dL 11/12/2017 11:35 AM T [facility] Bilirubin Total 0.6 0.3 - 1.2 mg/dL 11/12/2017 11:35 AM T [facility] eGFR by MDRD >60 mL/min/1.7 3m2 11/12/2017 11:35 AM T [facility] Comment: eGFR calculations are not performed for children under 18 years old. eGFR by MDRD >60 mL/min/1.7 3m2 11/12/2017 11:35 AM T [facility] Comment: eGFR calculations are not performed for children under 18 years old. Blood BLOOD SPECIMEN / Unknown Lab Venipuncture / Unknown 11/12/2017 9:57 AM CDT 11/12/2017 10:52 AM CDT Jose Rafael Thompson MD LAB - CHEMISTRY HILDA MARIO [facility] [address] [place] [address] * GGT (11/12/2017 9:57 AM CDT) GGT 33 8 - 69 U/L 11/12/2017 11:35 AM T [facility] Blood BLOOD SPECIMEN / Unknown Lab Venipuncture / Unknown 11/12/2017 9:57 AM CDT 11/12/2017 10:52 AM CDT Jose Rafael Thompson MD LAB - CHEMISTRY HILDA MARIO [facility] [address] [place] [address] * CK BLOOD (11/12/2017 9:57 AM CDT) CK 180 30 - 200 U/L 11/12/2017 11:39 AM T [facility] Blood BLOOD SPECIMEN / Unknown Lab Venipuncture / Unknown 11/12/2017 9:57 AM CDT 11/12/2017 10:52 AM CDT Jose Rafael Thompson MD LAB - CHEMISTRY HILDA MARIO Performing Organization Address [facility] Co de Phone Number [facility] [address] [place] [address] * BILIRUBIN DIRECT (11/12/2017 9:57 AM CDT) Bilirubin Direct 0.39 0.11 - 0.64 mg/dL 11/12/2017 11:35 AM CDT [facility] Blood BLOOD SPECIMEN / Unknown Lab Venipuncture / Unknown 11/12/2017 9:57 AM CDT 11/12/2017 10:52 AM CDT Jose Rafael Thompson MD LAB - CHEMISTRY HILDA MARIO Performing Organization Address [facility] Co de Phone Number [facility] [address] [place] [address] * AMYLASE BLOOD (11/12/2017 9:57 AM CDT) Amylase 23 5 - 65 U/L 11/12/2017 11:35 AM CDT [facility] Blood BLOOD SPECIMEN / Unknown Lab Venipuncture / Unknown 11/12/2017 9:57 AM CDT 11/12/2017 10:52 AM CDT Jose Rafael Thompson MD LAB - CHEMISTRY HILDA MARIO Performing Organization Address [facility] Co de Phone Number [facility] [address] [place] [address] * TSH (11/12/2017 9:57 AM CDT) TSH 1.06 0.35 - 4.95 uIU/mL 11/12/2017 11:56 AM CDT [facility] Blood BLOOD SPECIMEN / Unknown Lab Venipuncture / Unknown 11/12/2017 9:57 AM CDT 11/12/2017 10:52 AM CDT Jose Rafael Thompson MD LAB - CHEMISTRY HILDA MARIO Performing Organization Address [facility]/ZIP Co de Phone Number [facility] [address] [place] [address] * HEPATITIS SCREEN ACUTE (11/12/2017 9:57 AM CDT) HAV Antibody IgM Non Reactive Non Reactive 11/12/2017 11:57 AM CDT [facility] HBsAg Non Reactive Non Reactive 11/12/2017 11:57 AM CDT [facility] HBc Antibody IgM Non Reactive Non Reactive 11/12/2017 11:57 AM CDT [facility] HCV Antibody Screen Non Reactive Non Reactive 11/12/2017 11:57 AM CDT [facility] HCV S/C Ratio 0.05 0.00 - 0.79 11/12/2017 11:57 AM CDT [facility] Comment: Ssqlro-vb-irllss ratio (S/CO) <0.80:?? Non Reactive Blood BLOOD SPECIMEN / Unknown Lab Venipuncture / Unknown 11/12/2017 9:57 AM CDT 11/12/2017 10:52 AM CDT Narrative [facility] - 11/12/2017 11:57 AM CDT Non Reactive - Antibodies to Hepatitis C virus (HCV) were not detected, result does not exclude early acute HCV infection. Jose Rafael Thompson MD LAB - CHEMISTRY HILDA MARIO Performing Organization Address [facility] Co de Phone Number [facility] [address] [place] [address] * IGA BLOOD (11/12/2017 9:57 AM CDT) IgA 92 63 - 484 mg/dL 11/12/2017 11:35 AM CDT [facility] Blood BLOOD SPECIMEN / Unknown Lab Venipuncture / Unknown 11/12/2017 9:57 AM CDT 11/12/2017 10:52 AM CDT Jose Rafael Thompson MD LAB - CHEMISTRY HILDA MARIO Performing Organization Address City/[facility]/ZIP Co de Phone Number [facility] [address] [place] [address] * (ABNORMAL) TRIGLYCERIDES BLOOD (10/01/2017 4:54 PM BOOKKEEPING CLERK) Triglycerides 32(L) 46 - 227 mg/dL 10/01/2017 5:49 PM BOOKKEEPING CLERK [facility] Blood BLOOD SPECIMEN / Unknown Lab Venipuncture / Unknown 10/01/2017 4:54 PM BOOKKEEPING CLERK 10/01/2017 5:06 PM BOOKKEEPING CLERK Valdo Pope Jr., MD LAB - CHEMISTRY ORDERABLES Performing Organization Address City/[facility] Co de Phone Number [facility] [address] [place] [address] * CULTURE FUNGUS SKIN HAIR NAIL+FUNGUS SMEAR (07/05/2017 1:50 PM BOOKKEEPING CLERK) Culture No fungus isolated AUNDREA 08/03/2017 9:29 AM BOOKKEEPING CLERK [facility] Fungus Smear No yeast or hyphae seen 08/03/2017 9:29 AM BOOKKEEPING CLERK [facility]CRO[facility] Microbiology TISSUE SPECIMEN FROM SKIN / Unknown Collection / Unknown 07/05/2017 1:50 PM BOOKKEEPING CLERK 07/05/2017 2:49 PM BOOKKEEPING CLERK Elena Eugene PA-C LAB - MICROBIOLOGY ORDERABLES Performing Organization Address [facility] Co de Phone Number [facility] [address] [place] [address], [facility] [phone] * CULTURE STAPH AUREUS+STREP A (01/20/2016 3:00 PM CDT) Culture Negative for Streptococcus Group A/Staphylococcus aureus AUNDREA 01/22/2016 5:49 AM CDT [facility]CRO[facility] Microbiology TISSUE SPECIMEN FROM SKIN / Unknown 01/20/2016 3:00 PM CDT 01/20/2016 5:25 PM CDT Elena Eugene PA-C LAB - MICROBIOLOGY ORDERABLES Performing Organization Address City/[facility]/ZIP Co de Phone Number [facility] [address] [place] [address] [phone] * STREP A SCREEN - POCT (IP) BEAKER (07/12/2015 3:58 PM BOOKKEEPING CLERK) Strep A Rapid POCT negative Negative [facility] POCT TESTING QC Verified Yes Yes [facility] PO CT TESTING Throat swab (specimen) ENTIRE THROAT (SURFACE REGION OF NECK) / Unknown 07/12/2015 3:58 PM BOOKKEEPING CLERK Sarika Aviles MD LAB - POINT OF CARE ORDERABLES Performing Organization Address City/[facility]/ZIP Co de Phone Number [facility] POCT TESTING [address] [place] [address], [facility] [phone] * STREP A SCREEN DIRECT W RFLX STREP A CULTURE (02/04/2015 10:40 PM CDT) Only the most recent of3 resultswithin the time period is included. Strep A Rapid Negative Negative 02/04/2015 10:55 PM CDT [facility] Microbiology ENTIRE THROAT (SURFACE REGION OF NECK) / Unknown 02/04/2015 10:40 PM CDT 02/04/2015 10:45 PM CDT Narrative [facility] - 02/04/2015 10:55 PM CDT Test has reflexed to a Strep A culture. Joselyn Steward MD LAB - MICROB IOLOGY ORDERABLES Performing Organization Address City/[facility]/ZIP Co de Phone Number [facility] [address] [place] [address] * CULTURE STREP GROUP A (02/04/2015 10:40 PM CDT) Only the most recent of3 resultswithin the time period is included. Culture Negative for Beta Hemolytic Streptococcus Group A AUNDREA 02/07/2015 7:16 AM CDT [facility] MICRO[facility] Microbiology ENTIRE THROAT (SURFACE REGION OF NECK) / Unknown 02/04/2015 10:40 PM CDT 02/04/2015 10:45 PM CDT Joselyn Steward MD LAB - MICROB IOLOGY ORDERABLES [facility]CRO[facility] [address] [place], [place] [address], [facility] [phone] * XR ABD OBSTR SERIES (10/03/2014 12:45 AM BOOKKEEPING CLERK) Anatomical Region Laterality Modality Abdomen Radiographic Christine ging 10/03/2014 7:32 AM BOOKKEEPING CLERK Impressions 10/03/2014 7:33 AM BOOKKEEPING CLERK Retained stool. Narrative 10/03/2014 7:33 AM BOOKKEEPING CLERK Exam: Abdomen obstruction series History: 14-year-old male with left-sided back pain and hematuria Comparison: None Findings: Stool is seen throughout the colon and rectum. There is no evidence of bowel obstruction. No pneumatosis or free intraperitoneal air is seen. There are no abnormal calcifications. The visible portions of the lung bases are clear. The osseous structures are intact. Procedure Note Marylou Montano MD - 10/03/2014 Exam: Abdomen obstruction series History: 14-year-old male with left-sided back pain and hematuria Comparison: None Findings: Stool is seen throughout the colon and rectum. There is no evidence of bowel obstruction. No pneumatosis or free intraperitoneal air is seen. There are no abnormal calcifications. The visible portions of the lung bases are clear. The osseous structures are intact. IMPRESSION Retained stool. Marquise Wu MD DIAGNOSTIC IMAGING O RDERABLES * (ABNORMAL) URINALYSIS ROUTINE AUTO (10/02/2014 11:20 PM BOOKKEEPING CLERK) Only the most recent of2 resultswithin the time period is included. Color UA Yellow Straw, Yellow, Dark Yellow 10/02/2014 11:28 PM [facility] Clarity UA Clear 10/02/2014 11:28 PM [facility] Specific [place] UA 1.015 1.005 - 1.030 10/02/2014 11:28 PM [facility] pH UA 6.0 5.0 - 8.0 pH 10/02/2014 11:28 PM [facility] Protein UA Negative Negative 10/02/2014 11:28 PM [facility] Blood UA Trace(A) Negative 10/02/2014 11:28 PM [facility] Leukocyte UA Negative Negative 10/02/2014 11:28 PM [facility] Nitrite UA Negative Negative 10/02/2014 11:28 PM [facility] Glucose UA Negative Negative 10/02/2014 11:28 PM [facility] Ketone UA Negative Negative 10/02/2014 11:28 PM [facility] Bilirubin UA Negative Negative 10/02/2014 11:28 PM [facility] Urobilinogen UA 0.2 0.1 - 1.0 EU/dL 10/02/2014 11:28 PM [facility] Urine URINE SPECIMEN OBTAINED BY CLEAN CATCH PROCEDURE / Unknown 10/02/2014 11:20 PM BOOKKEEPING CLERK 10/02/2014 11:23 PM BOOKKEEPING CLERK Marquise Wu MD LAB - URINALYSIS ORD ERABLES Performing Organization Address [facility] Co de Phone Number [facility] [address] [place] [phone] * URINALYSIS MICROSCOPIC ONLY (10/02/2014 11:20 PM BOOKKEEPING CLERK) Only the most recent of2 resultswithin the time period is included. RBC UA 2-5 0-2, 2-5 # /hpf 10/03/2014 12:13 AM [facility] WBC UA 0-2 0-2, 2-5 # /hpf 10/03/2014 12:13 AM [facility] Bacteria UA None Seen None Seen, Trace 10/03/2014 12:13 AM [facility] Epithelial Cell UA 0-2 0-2, 2-5 10/03/2014 12:13 AM [facility] Urine URINE SPECIMEN OBTAINED BY CLEAN CATCH PROCEDURE / Unknown 10/02/2014 11:20 PM BOOKKEEPING CLERK 10/02/2014 11:23 PM BOOKKEEPING CLERK Jazmin Mathews MD LAB - URINALYSIS ORD ERABLES Performing Organization Address City/[facility]/ZIP Co de Phone Number [facility] [address] [place] [address] * (ABNORMAL) ALT (11/02/2013 4:26 PM CDT) ALT 348(H) 6 - 46 U/L 11/02/2013 5:14 PM CDT [facility] Blood BLOOD SPECIMEN / Unknown Lab Venipuncture / Unknown 11/02/2013 4:26 PM CDT 11/02/2013 4:42 PM CDT [employer] LAB - CHEMISTRY ORDE OpenROV Performing Organization Address [facility] Co de Phone Number [facility] [address] [place] [phone] * (ABNORMAL) AST BLOOD (11/02/2013 4:26 PM CDT) AST 164(H) 3 - 35 U/L 11/02/2013 5:14 PM CDT [facility] Blood BLOOD SPECIMEN / Unknown Lab Venipuncture / Unknown 11/02/2013 4:26 PM CDT 11/02/2013 4:42 PM CDT [employer] LAB - CHEMISTRY ORDE OpenROV Performing Organization Address [facility] Co de Phone Number [facility] [address] [place] [address] * (ABNORMAL) LIPID PROFILE (11/02/2013 4:26 PM CDT) Cholesterol 70 <170 mg/dL 11/02/2013 5:14 PM CDT [facility] Triglycerides 109 42 - 330 mg/dL 11/02/2013 5:14 PM CDT [facility] HDL Cholesterol 31(L) >40 mg/dL 5:14 PM CDT [facility] LDL Calculated <20 <100 mg/dL 11/02/2013 5:14 PM CDT [facility] VLDL Calculated 22 12 - 38 mg/dL 11/02/2013 5:14 PM CDT [facility] Chol HDL Ratio 2.3 <=5.0 11/02/2013 5:14 PM CDT [facility] Blood BLOOD SPECIMEN / Unknown Lab Venipuncture / Unknown 11/02/2013 4:26 PM CDT 11/02/2013 4:42 PM CDT Narrative [facility] - 11/02/2013 5:14 PM CDT Lipid Profile Comment: Adult references ranges are the recommendation of the [employer] , for those patients >18 years old. Cholestrol ??LDL ?? Triglycerides ?HDL ?? -- ?-- ? -- ?<40 ?Low <170 ? <100 ?<150 ? Desirable 170-199 ?? 130-159 ? 150-199 ?Borderline High >200 ?160-189 ? 200-499 ?>60 ?High Risk factor status for Coronary Artery Disease is necessary to place these lab findings in perspective. Note: This test is for fasting patients only. A non-fasting state may alter some of these results. Ivet Hinton DO LAB - CHEMISTRY HILDA MARIO Performing Organization Address [facility] de Phone Number [facility] [address] [place] [address] * GLUCOSE - POINT OF CARE (08/17/2013 3:19 PM BOOKKEEPING CLERK) Blood BLOOD SPECIMEN / Unknown 08/17/2013 3:19 PM BOOKKEEPING CLERK 08/18/2013 9:33 AM BOOKKEEPING CLERK Batsheva Morataya APRN-PRODUCTIVITY ENGINEER LAB - POINT OF CARE ORDERABLES Performing Organization Address [facility] de Phone Number [facility] [address] [place] [address] * CULTURE URINE (08/17/2013 3:15 PM BOOKKEEPING CLERK) Culture <10,000 CFU/mL normal urogenital brian 08/19/2013 6:19 PM BOOKKEEPING CLERK [facility]CRO[facility] Urine URINE SPECIMEN OBTAINED BY CLEAN CATCH PROCEDURE / Unknown 08/17/2013 3:15 PM BOOKKEEPING CLERK 08/17/2013 3:26 PM BOOKKEEPING CLERK Batsheva Morataya CYCLE SPECIALIST-PRODUCTIVITY ENGINEER LAB - MICRO BIOLOGY ORDERABLES Performing Organization Address [facility] Co de Phone Number [facility]CRO[facility] [address] [place] [address], [facility] * LAB RESULTS ORDER (05/17/2012 10:08 AM CDT) Narrative Transcriptions Document, Scanned - 05/17/2012 10:08 AM CDT Scanned Document LAB - THERAPEUTIC DR LYLES MONITORING ORDERABLES * (ABNORMAL) FERRITIN (04/17/2011 10:55 AM CDT) Only the most recent of2 resultswithin the time period is included. Ferritin 124(H) 10 - 105 ng/ml [facility] BLOOD SPECIMEN / Unknown 04/17/2011 10:55 AM CDT 04/17/2011 10:59 AM CDT Daija Lewis MD LAB - CHEMISTRY HILDA MARIO Performing Organization Address [facility] Co de Phone Number [facility] [address] [facility] [place] [address] * PEDIATRIC DIAGNOSTIC POLYSOMNOGRAM (09/22/2010) Signed On Paper Physician [facility] Campbell JACOBSON * GROSS EXAM PATHOLOGY (04/01/2007 1:45 PM CDT) Result CASE NUMBER [id number] [facility] PATH REPORT Comment: ORDERING PHYSICIAN ??MARY MENDOZA SPECIMEN TYPE ?Tonsils CLINICAL HISTORY ? The patient is a 6-year-old boy with adenotonsillar hypertrophy who underwent tonsillectomy and adenoidectomy. GROSS DESCRIPTION ? The specimen labeled with the patient's name and tonsils is received fresh for gross examination only and consists of two egg-shaped, pink-mancia tonsils measuring 3.1 x 2.5 x 1.9 cm and 2.9 x 2.5 x 1.9 cm, weighing approximately 10 grams. On cut surface the tonsils have a cerebriform yellow-mancia appearance. No sections are taken. ??(PN/nab) GROSS DIAGNOSIS ? GROSS DIAGNOSIS ?? TONSILS. This case has been personally reviewed and interpreted by the attending (teaching) pathologist. [employer] ? DAMIR MURPHY PATHOLOGIST ?Elie Rowan M.D. ELECTRONICALLY CHIVO Elie Rowan MISCELLANEOUS SAMPLES / Unknown 04/01/2007 1:45 PM CDT 04/01/2007 2:01 PM CDT Historical Provider LAB - PATHOLOGY/C YTOLOGY ORDERABLES [facility] PATH REPORT Care Teams Svp Monetization Relationship Specialty Start Date End Date Godfrey Curry MD [facility] [place] [id number] PCP - General Pediatrics 05/01/14 Dipika Reddy [facility] [address] [place] [address] Resident Student Resident 11/27/15
--- OUTSIDE RECORDS SUMMARY | 2024-08-06 19:02 | XMS_ITS | Referral Summary ---
Author Organization [facility] Address [address] [place] [address] Care Team Providers Care Low Pressure Boiler Tender Name Role Phone Godfrey Curry MD Primary Care Provider [phone] Dipika Reddy MD Unavailable [phone] Source Comments [facility],non-owned Affiliates and Associated Physician Practices is amultiple site organization consisting of ambulatory clinics and hospital sitesin [place], [place], [place]. This disclosure is being madepursuant to the Care Everywhere program and may not contain all information available regarding this patient. Last updated 18.[facility] Allergies No known active allergies Medications * Be aware that medications may not be up to date on this document. Alwaysverify current medications with the patient. Medication Sig Dispensed Refills Start Date End Date Status levocetirizine (XYZAL) 5 MG tablet Take 5 mg by mouth once daily Active tretinoin (RETIN-A) 0.05 % creamIndications:A cne vulgaris Apply to affected area at bedtime 45 g 1 07/05/2017 Active benzoyl peroxide (BENZOYL PEROXIDE) 5 % wash Apply to affected area once daily 1 bottles 07/05/2017 Active ibuprofen (MOTRIN) 200 MG tablet Take 400 mg by mouth every 6 hours as needed for Pain Active fluticasone propionate (FLONASE) 50 MCG/ACT nasal spray C[place] 1 spray into each nostril once daily Collaborating Physician: Tervor Mak MD 1 bottles 05/19/2018 Active Active Problems Problem Noted Date Diagnosed Date Elevated liver enzymes 11/10/2017 Acne 08/23/2015 Overview (10/01/2017): Onset age 12-13; moderate, inflammatory and comedonal; [...] - plan to start 30mg/d (goal 80mg/day) Viral URI 07/12/2015 Assessment & Plan (07/12/2015 5:00 PM 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 Rapid strep negative. No signs on physical exam of acute bacterial infection. History and physical most consistent with a viral URI. Plan: - Tylenol as needed for fevers and comfort - Encourage plenty of fluids - F/u if symptoms worsen or fail to improve over the next several days - Received flu vaccine today Allergic pharyngitis 12/03/2014 Assessment & Plan (12/03/2014 4:43 PM CDT): Likely is due to worsening in allergies. No posterior erythema, however, cobblestoning present. Sores (?) on tongue are hypertrophic taste buds, non-pathologic. With fever, possibly this is viral pharyngitis, however, based on exam, I still believe this is allergy driven. Plan: Chloriseptic lozenges as needed Encourage fluids and Tylenol as needed Follow up 05/07/2014 Overview (05/02/2022): IMO 2021 Update Assessment & Plan (05/07/2014 4:26 PM CDT): Follow up for ED visit for viral illness now resolved Well exam with some allergic concerns Call or bring patient in for evaluation if symptoms worsen, new symptoms develop, or worried Myopia 11/02/2013 Assessment & Plan (12/04/2015 2:27 PM CDT): Noted on screen. Has seen eye doctor in past and prexcribed contacts. See eye doctor again. Assessment & Plan (11/02/2013 6:47 PM CDT): Difficulty with vision noted especially at school when in back of classroom. Vision screen 20/40 (left) and 20/50 (right). Plan: - Optometry referral [facility] (well child check) 11/02/2013 Assessment & Plan (12/04/2015 2:26 PM CDT): Erick Triana is here for his adolescent well child check and has obesity and normal development. ?? Hep B and Varivax ?? Dental referral for prevention ?? Age appropriate anticipatory guidance provided ?? Return for next well child check; sooner if concerns arise. Assessment & Plan (11/02/2013 6:48 PM CDT): Erick Triana is here for his adolescent well child check with obesity and normal development. Immunizations UTD per report. ?? Immunizations today: none ?? Dental referral for prevention ?? Age appropriate anticipatory guidance provided ?? Return for next well child check sooner if concerns arise. Obesity 11/02/2013 Overview (10/05/2017): with acanthosis nigricans and transaminitis (consider RUTLEDGE) 10/05/2017 GI referral Component 10/01/17 11/02/13 Alk Phos 86 (L) ALT 175 (H) 348 (H) AST 66 (H) 164 (H) Protein Total 7.5 Albumin 4.6 Bili 0.4 eGFR Cholesterol 70 TG 109 HDL 31 (L) LDL <20 VLDL CALC ([facility]) 22 Chol HDL Ratio <=5.0 2.3 Assessment & Plan (12/04/2015 2:29 PM CDT): Discussed continued problem Encouraged diet and exercise. Will check levels including lipid profile, Hgb A1C, AST Assessment & Plan (11/02/2013 6:51 PM CDT): BMI >99%. Has lost approximately 4 lbs in past 2 months. No major lifestyle modifications made. Plan: - Lipid profile - AST/ALT - Follow-up in 3 months if still living in [facility] - Lifestyle modifications reviewed including limiting sugar drinks and sweets. Increased physical activity - Consider referral to weight management clinic if does not move to [place] - Also may be text for teens eligible if still living in [facility] in a year Allergic rhinitis 05/19/2011 Assessment & Plan (05/07/2014 4:28 PM CDT): Hx and exam consistent with allergic rhinitis Has used Claritin in the past Refilled Claritin Social work consult regarding black mold Call or bring patient in for evaluation if symptoms worsen, new symptoms develop, or worried Keratosis pilaris 05/19/2011 Overview (10/01/2017): Upper>lower arms; face; complicated by folliculitis 01/22/16 LE skin Cx neg Strep, neg Staph 10/14/16 unchanged 10/01/17 prominent Resolved Problems Problem Noted Date Diagnosed Date Resolved Date Cough 05/19/2011 11/02/2013 ADHD (attention deficit hype ractivity disorder) 03/23/2011 12/04/2015 Oppositional defiant disorder 03/23/2011 12/04/2015 Overview (10/26/2015): 2015 IMO Updt Restless legs syndrome (RLS) 12/07/2010 12/04/2015 KEYANA (obstructive sleep apnea) 12/07/2010 12/04/2015 Poor sleep hygiene 12/07/2010 6 Immunizations Name Administration Dates Next Due DTaP VACCINE IM (6wk-6yrs) 03/19/2006,,01/17/2001,2000,2000 HEP A PEDS 2 DOSE 03/19/2006,10/08/2004 HEP B VACCINE, PED/ADOL 12/04/2015,01/19,2000,2000 HIB-PRP-OMP 3 DOSE 01/19/2002,2000, 001 Human Papilloma Virus Vaccine 08/08/2012, 012,07/24/2011 INFLUENZA 08/17/2013,06/23/2011 INFLUENZA VACCINE, QUADR. (F LUZONE; FLULAVAL; FLUARIX; AFLURIA QUADRIVALENT; 6MO+), 0.5 ML (IIV4) 07/12/2015 MENINGOCOCAL MENINGITIS 07/24/2011 MMR 03/19/2006,07/22/2001 PNEUMOCOCCAL PCV7 CONJ, PEDS 01/19/2002, 01/17/2001,2000,2000 POLIO IPV 03/19/2006, 1,2000,2000 TDAP (7yrs+) 07/24/2011 VARICELLA 12/04/2015,07/22/2001 Social History Tobacco Use Types Packs/Day Years [...] PM CDT Body Mass Index - - Functional Status Functional Status Response Date of [...] person have difficulty concentrating/remembering/making decisions? No 01/20/2018 Plan of Treatment Not on file Procedures Procedure Name Priority Date/Time Associated Diagnosis Comments HEPATITIS SCREEN ACUTE Routine 11/12/2017 9:57 AM CDT Liver disorder from Last 3 Months or Most Recently Relevant to Health Maintenance Results * HEPATITIS SCREEN ACUTE (11/12/2017 9:57 AM CDT) HAV Antibody IgM Non Reactive Non Reactive 11/12/2017 11:57 AM CDT [facility] HBsAg Non Reactive Non Reactive 11/12/2017 11:57 AM T [facility] HBc Antibody IgM Non Reactive Non Reactive 11/12/2017 11:57 AM T [facility] HCV Antibody Screen Non Reactive Non Reactive 11/12/2017 11:57 AM T [facility] HCV S/C Ratio 0.05 0.00 - 0.79 11/12/2017 11:57 AM T [facility] Comment: Mttlls-yb-glomwa ratio (S/CO) <0.80:?? Non Reactive Blood BLOOD SPECIMEN / Unknown Lab Venipuncture / Unknown 11/12/2017 9:57 AM CDT 11/12/2017 10:52 AM CDT Narrative [facility] - 11/12/2017 11:57 AM CDT Non Reactive - Antibodies to Hepatitis C virus (HCV) were not detected, result does not exclude early acute HCV infection. Jose Rafael Thompson MD LAB - CHEMISTRY HILDA MARIO [facility] [address] [place] [address] from Last 3 Months or Most Recently Relevant to Health Maintenance Care Teams Low Pressure Boiler Tender Relationship Specialty Start Date End Date LabGodfrey griffin MD [address] [place] [phone] PCP - General Pediatrics 05/01/14 Dipika Reddy MD [address] [place] [phone] Resident Student Resident 11/27/15
--- OUTSIDE RECORDS SUMMARY | 2024-08-06 19:02 | XMS_ITS | Encounter Summary ---
Author Organization [facility] Address [address] [place] [address] Care Team Providers Care Wheat Combine Driver Name Role Phone Godfrey Curry MD Primary Care Provider [phone] Dipika Reddy MD Unavailable [phone] Reason for Visit * Reason Onset Date Comments Urinary Problem 11/21/2018 Encounter Details Date Type Department Care Team (Late st Contact Info) Description 11/21/2018 Telephone [facility] Pediatrics - [facility] [place] [address] Fide Lanza, RN Urinary Problem Social History Tobacco Use Types Packs/Day Years [...] encounter Miscellaneous Notes * Telephone Encounter - Sindy Glass - 11/22/2018 1:04 PM CDT Called and mom answered. She states that Erick is worried he has a kidney infection, but he is currently in school. He lives in [place], [place]. I discussed with mom to go to nearby urgent care or health facility to have urine tested and r/o any other pathology. Mom agreeable and will speak with Erick. * Telephone Encounter - Marilu Pisano APRN-CNP - 11/21/2018 11:43 AM CDT Returned call to discuss concerns. No answer, unable to LM. Pt would need to be evaluated, unable to treat without seeing. MARY KATE Jones11/21/201811:45 AM * Telephone Encounter - Fide Lanza RN - 11/21/2018 10:51 AM CDT Erick Alejandrina Triana's called in stating she wants to speak with physician. Requesting antibiotics for a kidney infection. States he is having flank pain to lower back on one side and burning upon urination. Informed that we will not prescribe antibiotics without patient being seen. Erick states he lives far away and cannot make an appointment. Wants a return call from a physician. documented in this encounter Plan of Treatment Not on file documented as of this encounter Visit Diagnoses Not on filedocumented in this encounter Care Teams Wheat Combine Driver Relationship Specialty Start Date End Date Godfrey Curry MD [address] [place] [address] PCP - General Pediatrics 05/01/14 Dipika Reddy MD [address] [place] [phone] Resident Student Resident 11/27/15 documented as of this encounter
--- OUTSIDE RECORDS SUMMARY | 2024-08-06 19:02 | XMS_ITS | Encounter Summary ---
Author Organization [facility] Address [address] [place] [address] Care Team Providers Care Animal Trainer Name Role Phone Godfrey Curry MD Primary Care Provider Dipika Reddy MD Unavailable [phone] Reason for Visit * Auth/Cert Specialty Diagnoses / Procedures Referred By Contac t Referred To Contact Diagnoses Elevated liver enzymes Elevated liver enzymes [R74.8] Procedures BIOPSY LIVER (NEEDLE/PERCUTANEOUS) Referral ID Status Reason Start Date Expiration Date Visits Re quested Visits Authorized [id number] 1 1 Encounter Details Date Type Department Care Team (Late st Contact Info) Description 01/20/2018 10:45 AM CDT - 01/20/2018 11:45 AM CDT Surgery [facility] - Endoscopy [address] [place] [address] Jose Rafael Thompson MD [address] [place] [address] BIOPSY LIVER (NEEDLE/PERCUTANEOUS) Surgery Details Date/Time Status Location OR Service Patient Class Case Class Case Type Trauma Case? 01/20/2018 10:45 AM Posted [facility]o 03 Gastroenterology Surgery Day Care Elective > 5 days Panel 1 Procedure LRB Anes Op Region Wound Class Comments BIOPSY LIVER (NEEDLE/PERCUTANEOUS) General Abdom en Clean Surgeon Surgeon Role Service Panel Jose Rafael Thompson MD Primary Gastroenterology 1 documented in this encounter Social History Tobacco Use Types Packs/Day Years Used Date Smoking Tobacco: Never Smokeless Tobacco: Never Alcohol Use Standard Drinks/Week Comments No 0 (1 standard drink = 0.6 oz pur e alcohol) Sex and Gender Information Value Date Recorded Sex Assigned at Not on file Gender Identity Not on file Sexual Orientation Not on file documented as of this encounter Last Filed Vital Signs Vital Sign Reading Time Taken Comments Blood Pressure 110/62 01/20/2018 3:00 PM CDT Pulse 60 01/20/2018 3:00 PM CDT Temperature 36.6 ??C (97.8 ??F) 01/20/2018 1 1:09 AM CDT Respiratory Rate 16 01/20/2018 3:00 PM CDT Oxygen Saturation 98% 01/20/2018 3:00 PM CDT Inhaled Oxygen Concentration - - Weight 115.7 kg (255 lb 1.2 oz) 01/20/2018 9:01 AM CDT Height 179 cm (5' 10.47 ) 01/20/2018 9:01 AM CDT Body Mass Index 36.11 01/20/2018 9:01 AM CDT Body Mass Index Percentile 98.70% 01/20/2018 9:0 1 AM CDT Growth Chart: [facility] (Boys, 2-2 0 Years) documented in this encounter Functional Status Functional Status Response [...] No 01/20/2018 documented as of this encounter Discharge Summaries * Jose Rafael Thompson MD - 01/20/2018 11:13 AM CDT Images from the original note were not included. SAME DAY SURGERY DISCHARGE SUMMARY Patient ID: Erick Triana [id number] 17 y.o. 2000 Discharge Date: 01/20/2018 Discharge Diagnoses: 1. Elevated liver enzymes 2. Liver disorder 3. Obesity, unspecified classification, unspecified obesity type, unspecified whether serious comorbidity present Discharge Condition: Stable Discharge Medication: Please see Discharge Instructions for a complete list of medications. Discharge Procedure Orders Why you were hospitalized Order Specific Question Answer Comments Your discharge diagnosis is: Liver disorder [20011130] Additional diet instructions Continue pre procedure diet. Activity as tolerated Rest today, and increase activity level tomorrow as tolerated. Post-anesthesia instructions Erick has just had a procedure that required sedation, and should not be left unattended today, since there is a higher risk of falling after having anesthesia. Even though Erick may be awake and alert when he leaves the hospital, the effects of the sedation will most likely be present for at least4 - 6 hours. A quiet day is recommended. Erick should not drive a vehicle, operate farm equipment or heavy machinery, or use the stove to cook for the next 24 hours. When to call provider Call powertrain calibration engineer GI if you have questions or concerns. Follow up with Primary Care Provider (PCP) Followup with primary care doctor. Keep scheduled appointments. Order Specific Question Answer Comments Follow Up Instructions: Followup with primary Care provider. Please followup with GI. Please call GI office for results in 2 weeks. Procedure information Erick had the following procedure performed: Liver Biopsy Order Specific Question Answer Comments Your discharge diagnosis is: Liver disorder [20011130] Recovering after your Uppder Endoscopy -- Erick's throat will probably be slightly sore today. This should go away within the next 24 hours. Use throat lozenges or cough drops to help ease the discomfort. -- Erick may notice small amounts of blood if he had polyps removed or tissue samples taken for biopsy. Recovering after Endoscopy Procedure(s) -- Erick throat will probably be slightly sore today. This should go away within the next 24 hours.Use throat lozenges or cough drops to help ease the discomfort. -- Erick may have some abdominal cramping or bloating. This is caused by the air that is inserted during your procedure, and should go away shortly after your procedure. Biopsy Results Please allow 10-14 days for biopsy results to be finalized. Jose Rafael Thompson MD 01/20/2018 11:13 AM documented in this encounter Discharge Instructions * Discharge Instructions* Asif Bateman RN - 01/20/2018 12:35 PM CDT Rasta received TYLENOL today at 11:30am. Please wait until after 5:30pm to give another dose. If your child has any worsening of their condition, please phone [phone] and ask for the doctor powertrain calibration engineer for GI or return to the Emergency Department. documented in this encounter Medications at Time of Discharge Medication Sig Dispensed Refills Start Date End Date benzoyl peroxide (BENZOYL PEROXIDE) 5 % wash Apply to affected area once daily 1 bottles 07/05/2017 levocetirizine (XYZAL) 5 MG tablet Take 5 mg by mouth once daily tretinoin (RETIN-A) 0.05 % creamIndications:Acne vulgaris Apply to affected area at bedtime 45 g 1 07/05/2017 doxycycline hyclate (VIBRAMYCIN) 100 MG capsule Take 1 capsule by mouth every 12 hours 60 capsule 2 07/05/2017 05/19/2018 documented as of this encounter H&P Notes * Jose Rafael Thompson MD - 01/20/2018 10:24 AM CDT PEDIATRIC GI ATTENDING NOTE 01/20/2018 PRE PROCEDURE NOTE 17 yr/M here for a liver biopsy. PAST MEDICAL HISTORY: Erick's past medical history includes: Past Medical History: Diagnosis Date ??? Acne ??? Allergic rhinitis 05/19/2011 ??? Anatomic airway obstruction ??? Ear infection ??? KEYANA (obstructive sleep apnea) post T&A 2006--continued snoring sleep study 09/22/10 AHI 1.5 O2 desat 91% ??? Seasonal allergies ??? Sinusitis ??? Strep throat ??? Thyroid activity decreased ??? Torsion of testicle R testicle ??? Warts Past Surgical History: Procedure Laterality Date ??? ADENOIDECTOMY ??? Tonsillectomy ??? Tonsillectomy and Adenoidectomy 08/31/07 SOCIAL HISTORY: Social History Social History Narrative Lives at home with mom, step-dad, 3 year old sister and 2 dogs. No smoke exposure at home. Denies sexual activity, alcohol, tobacco, or other drug use. Is bullied at school and in neighbor [place]. For weight and if he were to do anything different including wearing bike helmet. When tells teachers they don't usually do anything. He often ends up getting in trouble. He says doesn't bother him he just ignores them because they are stupid . Never been sexually active. FAMILY HISTORY: Family History Problem Relation Age of Onset ??? Anesthesia Reaction Maternal Grandmother ??? Learning Disability Mother and possibly in maternal grandmother ??? Acne Mother ??? Eczema Mother ??? Miscarriage Mother ??? Depression Other extended maternal family ??? Acne Father ??? Psoriasis Maternal Uncle ??? Heart Disease Maternal Grandfather ??? Bleeding Disorders Neg Hx ??? Childhood Hearing Disorder Neg Hx CURRENT MEDICATIONS: No current facility-administered medications for this encounter. PHYSICAL EXAMINATION: >99 %ile (Z= 2.60) based on CDC 2-20 Years [id number] data using vitals from 01/20/2018. BP 117/75 Pulse 78 Temp 98 ??F (36.7 ??C) Resp 16 Ht 1.79 m (5' 10.47 ) Wt 115.7 kg (255 lb 1.2 oz)SpO2 98% BMI 36.11 kg/m2 General: Patient in no acute distress. HEENT: Atraumatic. Eyes: No redness. No Discharge. Neck: Supple. Nares: Patent. No bleeding. Skin: Okay. Oropharynx: No apparent mouth sores or ulcers. Lymphatic: No significant neck nodes. Chest: Equal air entry bilaterally. Cardiovascular: No apparent murmur. Abdomen: Soft, nontender, nondistended. No organomegaly noted. V/[place] SIGNAL OFFICER: No apparent focal deficits. Extremities: Warm, well perfused. Cap refill less than 2 seconds. 17 yr/M here for a liver biopsy. Physician Declaration: I have explained the nature, purpose, and necessity of the operational/procedure, possible alternative methods of treatment and anesthetic plan, the risks involved and the possibility of complications. documented in this encounter Plan of Treatment Not on file documented as of this encounter Procedures Procedure Name Priority Date/Time Associated Diagnosis Comments HGB HCT PANEL STAT 01/20/2018 2:51 PM CDT Liver disorder VIRAL CULTURE MISC STAT 01/20/2018 10 :58 AM CDT Obesity, unspecified classification, unspecified obesity type, unspecified whether serious comorbidity present BIOPSY LIVER (NEEDLE/PERCUTANEOUS) 01/20/2018 10:36 AM CDT Elevated liver enzymes PATHOLOGY TISSUE EXAM (STL) STAT 01/20/2018 10:36 AM CDT Elevated liver enzymes BLOOD TYPE VERIFICATION Routine 01/20/2018 10:36 AM CDT NEEDLE BIOPSY, LIVER Routine 01/20/2018 9:30 AM CDT Liver disorder PREPARE RBC LEUKOREDUCED UNIT STAT 01/20/2018 9:15 AM CDT TYPE + SCREEN PANEL STAT 01/20/2018 9 :09 AM CDT Elevated liver enzymes PT PTT PANEL STAT 01/20/2018 9:09 AM CDT Elevated liver enzymes CBC W AUTO DIFFERENTIAL AM Draw 01/20/2018 9:09 AM CDT Elevated liver enzymes documented in this encounter Results * HGB HCT PANEL (01/20/2018 2:51 PM CDT) Hemoglobin 14.6 13.0 - 16.0 gm/dL 01/20/2018 3:10 PM CDT [facility] Hematocrit 41.5 37.0 - 49.0 % 01/20/2018 3:10 PM CDT [facility] Blood BLOOD SPECIMEN / Unknown Venipuncture / Unknown 01/20/2018 2:51 PM CDT 01/20/2018 3:03 PM CDT Jose Rafael Thompson MD LAB - HEMATOLOGY ORD ERABLES [facility] [address] [place] [address] * VIRAL CULTURE MISC (01/20/2018 10:58 AM CDT) Viral Culture No virus isolated. 01/28/2018 8:41 AM CDT [facility] ([facility]) Microbiology NEEDLE BIOPSY OF LIVER / Unknown Collection / Unknown 01/20/2018 10:58 AM CDT 01/20/2018 11:14 AM CDT Narrative [facility] ([facility]) - 01/28/2018 8:41 AM CDT Performed at: ??01 - [facility] [address] ??[id number] Photographic Platemaker: Wesley Jose MD, Phone: ??[phone] Jose Rafael Thompson MD LAB - MICROBIOLOGY O [facility] Performing Organization Address City/State/[facility] Co de Phone Number [facility] ([facility]) [address] [place] [address] * GROSS + MICRO EXAM (STL) (01/20/2018 10:36 AM CDT) Case Report Surgical Pathology Report ? Case: [id number] ? Authorizing Provider: ??Jose Rafael Thompson MD ? Collected: ? 01/20/2018 10:36 AM ? Ordering Location: ? [facility] ?Received: ?01/20/2018 11:34 AM ? Pathologist: ? Judie Childs MD ? Specimen: ?Liver Needle Biopsy, please run ?EM on this specimen ? 01/21/2018 4:03 PM [facility] Final Diagnosis Liver, needle biopsy (A): - Mild steatosis and lobular inflammation - No fibrosis 01/21/2018 4:03 PM [facility] Clinical History The patient is a 17-year-old boy with elevated liver enzymes who underwent liver biopsy to rule out non-alcoholic steatohepatitis (RUTLEDGE). 01/21/2018 4:03 PM [facility] Gross Description Submitted fixed in formalin [...] possible electron microscopy. (CT/me) 01/21/2018 4:03 PM [facility] Microscopic Description 2 H&E slides; special [...] of condensation. The PASD is negative for nyvqh-1-abpngsuitiy gobules but shows focal pigmented macrophages. The [...] non alcoholic steatohepatitis (RUTLEDGE). 01/21/2018 4:03 PM [facility] Disclaimer The performance characteristics of all immunohistochemical and indirect immunofluorescence stains (if any) cited in this report were determined by the [facility] of [facility]. Some of these tests were developed by [...] the attending (teaching) pathologist. 01/21/2018 4:03 PM T [facility] Embedded Images 01/21/2018 4:03 PM T [facility] Pathology/Cytolo gy NEEDLE BIOPSY OF LIVER / Unknown 01/20/2018 10:36 AM CDT 01/20/2018 11:34 AM CDT Jose Rafael Thompson MD LAB - PATHOLOGY/CYTO LOGY ORDERABLES Performing Organization Address [facility] Co de Phone Number [facility] [address] [place] [address] * BLOOD TYPE VERIFICATION (01/20/2018 10:36 AM CDT) ABO A 01/20/2018 10:43 AM CDT [facility] Rh Type Positive 01/20/2018 10:43 AM T [facility] Blood Bank BLOOD SPECIMEN / Unknown Lab Venipuncture / Unknown 01/20/2018 10:36 AM CDT 01/20/2018 10:37 AM CDT Jose Rafael Thompson MD LAB - BLOOD BANK ORD ERABLES Performing Organization Address City/[facility]/ZIP Co de Phone Number [facility] [address] [place] [address] * NEEDLE BIOPSY, LIVER (01/20/2018 9:30 AM CDT) Report Endoscopy POC _ Patient Name: Erick Triana ? Date of : 2000 ? Admit Type: Outpatient Age: 17 ? Gender: Male Attending MD: Jose Rafael Thompson MD ?Order #: [id number] _ Procedure: ? Liver biopsy Indications: ? Abnormal Liver enzymes (no detail) Providers: ? Jose Rafael Thompson MD Referring MD: ?Gene Nemesio Curry MD Medicines: ? General anesthesia Complications: [...] Procedure Code(s): ? --- Professional --- ? 45046, Biopsy of liver, needle; percutaneous ? 50674, Ultrasonic guidance for needle placement (eg, biopsy, aspiration, ? injection, localization device), imaging supervision and interpretation ? --- Technical --- ? 09447, Biopsy of liver, needle; percutaneous ? 58444, Ultrasonic guidance for needle placement (eg, biopsy, aspiration, ? injection, localization device), imaging supervision and interpretation Diagnosis Code(s): ? --- Professional --- ? R74.9, Abnormal serum enzyme level, unspecified ? --- Technical --- ? R74.9, Abnormal serum enzyme level, unspecified CPT copyright 2015 [employer]. All rights reserved. The codes documented in this report are preliminary and upon customer field representative review may be revised to meet current compliance requirements. Dr. Jose Rafael Thompson Jose Rafael Thompson MD 01/20/2018 11:15:04 AM This report has been signed electronically. Number of Addenda: 0 Note Initiated On: 01/19/2018 9:30 AM Procedure Date: ? 01/20/2018 9:30:00 AM ? This report has been signed electronically. [facility] 01/20/2018 9:30 AM CDT Jose Rafael Thompson MD GI PROCEDURE ORDERAB LES Performing Organization Address City/State/[facility] Co de Phone Number [facility] [address] [place] [address] * PREPARE (CROSSMATCH) RBC UNIT(S), 1 Units (01/20/2018 9:15 AM CDT) Product Code [id number] [facility] Unit Donor # [id number] C [facility] ABO Donor Type A [facility] Rh Type Unit POS [facility] Unit Status Ret'd [facility] ABO Rh Type Unit APOS [facility] Donor Unit Expiration Date [id number] [facility] Blood Type Barcode [address] [facility] Blood Bank BLOOD SPECIMEN / Unknown 01/20/2018 9:15 AM CDT Jose Rafael Thompson MD LAB - BLOOD BANK ORD ERABLES Performing Organization Address [facility]/ZIP Co de Phone Number [facility] [address] [place] [phone] * TYPE + SCREEN PANEL (01/20/2018 9:09 AM CDT) ABO A 01/20/2018 10:42 AM CDT [facility] Rh Type Positive 01/20/2018 10:42 AM CDT [facility] Comment:History checked. Antibody Screen Negative 01/20/2018 10:42 AM CDT [facility] Blood Bank BLOOD SPECIMEN / Unknown Venipuncture / Unknown 01/20/2018 9:09 AM CDT 01/20/2018 9:30 AM CDT Jose Rafael Thompson MD LAB - BLOOD BANK ORD ERABLES Performing Organization Address [facility] Co de Phone Number [facility] [address] [place] [phone] * (ABNORMAL) PT PTT PANEL (01/20/2018 9:09 AM CDT) PT 11.7(H) 9.5 - 11.6 sec 01/20/2018 10:12 AM CDT [facility] INR 1.1 0.9 - 1.1 01/20/2018 10:12 AM CDT [facility] PTT 24.5 21.0 - 32.0 sec 01/20/2018 10:12 AM CDT [facility] Blood BLOOD SPECIMEN / Unknown Venipuncture / Unknown 01/20/2018 9:09 AM CDT 01/20/2018 9:31 AM CDT Narrative [facility] - 01/20/2018 10:12 AM CDT Conventional Warfarin Anticoagulant Therapy: INR Reference Range: ??2.0-3.0 Intensive Warfarin Anticoagulant Therapy: INR Reference Range: ? 2.5-3.5 Heparin Therapeutic Range for PTT: 47.7 - 68.6 seconds. Jose Rafael Thompson MD LAB - COAGULATION OR DERABLES [facility] [place] [address] * (ABNORMAL) CBC W AUTO DIFFERENTIAL (01/20/2018 9:09 AM CDT) WBC 8.5 4.5 - 11.0 x10E9/L 01/20/2018 9:42 AM CDT [facility] WBC Corrected x10E9/L 01/20/2018 9:42 AM CDT [facility] RBC 6.07(H) 4.50 - 5.30 x10E12/L 01/20/2018 9:42 AM CDT [facility] Hemoglobin 16.3(H) 13.0 - 16.0 gm/dL 01/20/2018 9:42 AM CDT [facility] Hematocrit 47.4 37.0 - 49.0 % 01/20/2018 9:42 AM CDT [facility] MCV 78.1 78.0 - 98.0 fl 01/20/2018 9:42 AM CDT [facility] MCH 26.9 25.0 - 35.0 pg 01/20/2018 9:42 AM CDT [facility] MCHC 34.4 31.0 - 37.0 gm/dL 01/20/2018 9:42 AM CDT [facility] Platelet Count 310 100 - 400 x10E9/L 01/20/2018 9:42 AM CDT [facility] RDW-CV 12.8 11.5 - 14.0 % 01/20/2018 9:42 AM CDT [facility] MPV 10.5(H) 6.0 - 9.5 fl 01/20/2018 9:42 AM CDT [facility] Neutrophils % 49.3 31.0 - 78.0 % 01/20/2018 9:42 AM CDT [facility] Lymphocytes % 36.9 13.0 - 54.0 % 01/20/2018 9:42 AM CDT [facility] Monocytes % 7.8 4.0 - 13.0 % 01/20/2018 9:42 AM CDT [facility] Eosinophils % 4.6 0.0 - 8.0 % 01/20/2018 9:42 AM CDT [facility] Basophils % 0.7 % 01/20/2018 9:42 AM CDT [facility] Immature Granulocytes 0.7 % 01/20/2018 9:42 AM CDT [facility] Neutrophil Absolute 4.17 x10E9/L 01/20/2018 9:42 AM CDT [facility] Lymphocytes Absolute 3.12 x10E9/L 01/20/2018 9:42 AM CDT [facility] Monocytes Absolute 0.66 x10E9/L 01/20/2018 9:42 AM CDT [facility] Eosinophils Absolute 0.39 x10E9/L 01/20/2018 9:42 AM CDT [facility] Basophils Absolute 0.06 x10E9/L 01/20/2018 9:42 AM CDT [facility] Immature Granulocytes Absolute 0.06 x10E9/L 01/20/2018 9:42 AM T [facility] nRBC Auto 0 /100 WBC 01/20/2018 9:42 AM T [facility] Blood BLOOD SPECIMEN / Unknown Venipuncture / Unknown 01/20/2018 9:09 AM CDT 01/20/2018 9:30 AM CDT Jose Rafael Thompson MD LAB - HEMATOLOGY ORD ERABLES Performing Organization Address City/State/[facility] Co de Phone Number [facility] [address] [place] [address] documented in this encounter Visit Diagnoses Diagnosis Elevated liver enzymes- Primary Nonspecific elevation of levels of transaminase or lactic acid dehydrogenase (LDH) Liver disorder Unspecified disorder of liver Obesity, unspecified classification, unspecified obesity type, unspecified whether serious comorbidity present Elevated liver enzymes Nonspecific elevation of levels of transaminase or lactic acid dehydrogenase (LDH) documented in this encounter Administered Medications Inactive Administered Medications - up to 3 most recent administrations Medication Order MAR Action Action Date Dose Rate Site acetaminophen (TYLENOL) tablet 650 mg 650 mg, Oral, EVERY 4 HOURS PRN, Mild Pain, Starting on Karen 01/20/18 at 1127, Until Karen 01/20/18 at 1639 $ Given 01/20/2018 11:32 AM CDT 650 mg isolyte-S pH 7.4 infusion at 115 mL/hr, Intravenous, POST-OP CONTINUOUS, Starting on Karen 01/20/18 at 1130, Until Karen 01/20/18 at 1639, PACU Current Rate 01/20/2018 11:09 AM CDT 115 mL/hr isolyte-S pH 7.4 IV BOLUS 500 mL 500 mL, at 967.74 mL/hr, Administer over 31 Minutes, Intravenous, ONCE, 1 dose, On Karen 01/20/18 at 0945 $ New Bag/Syringe 01/20/2018 9:28 AM CDT 500 mL 967.74 mL/hr lidocaine (XYLOCAINE) 1 % injection PRN, Starting on Karen 01/20/18 at 1101, Until Karen 01/20/18 at 1114, Intra-op $ Given 01/20/2018 11:01 AM CDT 5 mL Operative Site documented in this encounter Active and Recently Administered Medications Times are shown in CDT. Scheduled Medication Order 01/18/2018 01/19/2018 01/20/2018 isolyte-S pH 7.4 IV BOLUS 500 mL (COMPLETED) 500 mL, at 967.74 mL/hr, Administer over 31 Minutes, Intravenous, ONCE, 1 dose, On Karen 01/20/18 at 0945 0928 ($ New Bag/Syri nge - Provider: Lena Lu, CAMRYN)[phone] (Due: Stopped - Provider: Lena Lu, CAMRYN) Continuous Medication Order 01/18/2018 01/19/2018 01/20/2018 isolyte-S pH 7.4 infusion at 115 mL/hr, Intravenous, POST-OP CONTINUOUS, Starting on Karen 01/20/18 at 1130, Until Karen 01/20/18 at 1639, PACU 1109 (Current Rate - Provider: Asif Bateman RN)1445 (Stopped - Provider: Asif Bateman, RN) PRN Medication Order 01/18/2018 01/19/2018 01/20/2018 acetaminophen (TYLENOL) tablet 650 mg 650 mg, Oral, EVERY 4 HOURS PRN, Mild Pain, Starting on Karen 01/20/18 at 1127, Until Karen 01/20/18 at 1639 1132 ($ Given - Prov ider: Asif Bateman, CAMRYN) lidocaine (XYLOCAINE) 1 % injection (CANCELED) PRN, Starting on Karen 01/20/18 at 1101, Until Karen 01/20/18 at 1114, Intra-op 1101 ($ Given - Prov ider: Jose Rafael Thompson MD) ondansetron (ZOFRAN) injection 4 mg 4 mg, Intravenous, ONCE PRN, Nausea/Vomiting, PACU ONLY., 1 dose, Starting on Karen 01/20/18 at 1118, Until Karen 01/20/18 at 1639, Max dose = 4 mg, PACU documented in this encounter Care Teams Animal Trainer Relationship Specialty Start Date End Date Labarge, Godfrey Zapata MD [address] [place] [address] PCP - General Pediatrics 05/01/14 Dipika Reddy MD [facility] [place] [address] Resident Student Resident 11/27/15 documented as of this encounter
--- OUTSIDE RECORDS SUMMARY | 2024-08-06 19:02 | XMS_ITS | Encounter Summary ---
Author Organization [facility] Address [address] [place] [address] Care Team Providers Care Vision Specialist Name Role Phone Godfrey Curry MD Primary Care Provider [phone] Dipika Reddy MD Unavailable [phone] Reason for Referral * Procedure (Routine) - Closed Specialty Diagnoses / Procedures Referred By Nelli pinto Referred To Contact Gastroenterology Diagnoses Liver disorder Procedures NEEDLE BIOPSY, LIVER Jose Rafael Thompson MD [address] [place] [address] Referral ID Status Reason Start Date Expiration Date Visits Re quested Visits Authorized [id number] Closed 11/12/2017 05/11/2018 1 1 Reason for Visit * Auth/Cert Specialty Diagnoses / Procedures Referred By Nelli pinto Referred To Contact Diagnoses Elevated liver enzymes Elevated liver enzymes [R74.8] Procedures BIOPSY LIVER (NEEDLE/PERCUTANEOUS) Referral ID Status Reason Start Date Expiration Date Visits Re quested Visits Authorized [id number] 1 1 Encounter Details Date Type Department Care Team (Latest Contact Info) Description 01/20/2018 8:50 AM CDT - 01/20/2018 3:39 PM CDT Hospital Encounter [facility] - Endoscopy [address] [place] [address] Jose Rafael Thompson MD [address] [place] [address] Surgery General Discharge Disposition: Home or Self Care Social History Tobacco Use Types Packs/Day Years [...] 01/20/2018 9:0 1 AM CDT Growth Chart: [facility] (Boys, 2-2 0 Years) documented in this [...] SURGERY DISCHARGE SUMMARY Patient ID: Erick Triana [id number] 17 y.o. 2000 Discharge Date: 01/20/2018 Discharge [...] 24 hours. When to call provider Call nurse practitioner physicians assistant GI if you have questions or concerns. [...] any worsening of their condition, please phone [phone] and ask for the doctor nurse practitioner physicians assistant for GI or return to the Emergency [...] ??? Tonsillectomy ??? Tonsillectomy and Adenoidectomy 04/01/07 SOCIAL HISTORY: Social History Social History Narrative [...] (Z= 2.60) based on CDC 2-20 Years zldymp-lga-qcm data using vitals from 01/20/2018. BP 117/75 [...] Abdomen: Soft, nontender, nondistended. No organomegaly noted. [employer] ARCHITECT: No apparent focal deficits. Extremities: Warm, well [...] - 16.0 gm/dL 01/20/2018 3:10 PM CDT [facility] Hematocrit 41.5 37.0 - 49.0 % 01/20/2018 3:10 PM CDT [facility] Blood BLOOD SPECIMEN / Unknown Venipuncture / Unknown 01/20/2018 2:51 PM CDT 01/20/2018 3:03 PM CDT Jose Rafael Thompson MD LAB - HEMATOLOGY ORD ERABLES Performing Organization Address City/[facility]/ZIP Co de Phone Number [facility] [place] [address] * VIRAL CULTURE MISC (01/20/2018 10:58 AM CDT) Viral Culture No virus isolated. 01/28/2018 8:41 AM CDT [facility] ([facility]) Microbiology NEEDLE BIOPSY OF LIVER / Unknown Collection / Unknown 01/20/2018 10:58 AM CDT 01/20/2018 11:14 AM CDT Narrative [facility] ([facility]) - 01/28/2018 8:41 AM CDT Performed at: ??01 - [facility] [address] ??[id number] Vice President Business & Corporate Development: Wesley Jose MD, Phone: ??[phone] Jose Rafael Thompson MD LAB - MICROBIOLOGY O RDERABLES [facility] ([facility]) [address] [place] [address] * GROSS + MICRO EXAM (STL) (01/20/2018 10:36 AM CDT) Case Report Surgical Pathology Report ? Case: [id number] ? Authorizing Provider: ??Jose Rafael Thompson MD ? Collected: ? 01/20/2018 10:36 AM ? Ordering Location: ? [facility] ?Received: ?01/20/2018 11:34 AM ? Pathologist: ? Judie Childs MD ? Specimen: ?Liver Needle Biopsy, please run ?EM on this specimen ? 01/21/2018 4:03 PM [facility] Final Diagnosis Liver, needle biopsy (A): - Mild steatosis and lobular inflammation - No fibrosis 01/21/2018 4:03 PM [facility] Clinical History The patient is a 17-year-old boy with elevated liver enzymes who underwent liver biopsy to rule out non-alcoholic steatohepatitis (RUTLEDGE). 01/21/2018 4:03 PM [facility] Gross Description Submitted fixed in formalin [...] possible electron microscopy. (CT/me) 01/21/2018 4:03 PM [facility] Microscopic Description 2 H&E slides; special [...] of condensation. The PASD is negative for thswm-4-juocjqtznva gobules but shows focal pigmented macrophages. The [...] non alcoholic steatohepatitis (RUTLEDGE). 01/21/2018 4:03 PM [facility] Disclaimer The performance characteristics of all immunohistochemical and indirect immunofluorescence stains (if any) cited in this report were determined by the Histopathology Laboratory of [facility]. Some of these tests were developed [...] the attending (teaching) pathologist. 01/21/2018 4:03 PM [facility] Embedded Images 01/21/2018 4:03 PM T [facility] Pathology/Cytolo gy NEEDLE BIOPSY OF LIVER / Unknown 01/20/2018 10:36 AM CDT 01/20/2018 11:34 AM CDT Jose Rafael Thompson MD LAB - PATHOLOGY/CYTO LOGY ORDERABLES Performing Organization Address City/State/[facility] Co de Phone Number [facility] [place] [address] * BLOOD TYPE VERIFICATION (01/20/2018 10:36 AM CDT) ABO A 01/20/2018 10:43 AM CDT [facility] Rh Type Positive 01/20/2018 10:43 AM T [facility] Blood Bank BLOOD SPECIMEN / Unknown Lab Venipuncture / Unknown 01/20/2018 10:36 AM CDT 01/20/2018 10:37 AM CDT Jose Rafael Thompson MD LAB - BLOOD BANK ORD ERABLES [facility] [address] [place] [address] * NEEDLE BIOPSY, LIVER (01/20/2018 9:30 AM CDT) Report Endoscopy POC _ Patient Name: Erick Triana ? Date of : 2000 ? Admit Type: Outpatient Age: 17 ? Gender: Male Attending MD: Jose Rafael Thompson MD ?Order #: [id number] _ Procedure: ? Liver biopsy Indications: ? [...] Procedure Code(s): ? --- Professional --- ? 68065, Biopsy of liver, needle; percutaneous ? 93977, Ultrasonic guidance for needle placement (eg, biopsy, aspiration, ? injection, localization device), imaging supervision and interpretation ? --- Technical --- ? 84473, Biopsy of liver, needle; percutaneous ? 78593, Ultrasonic guidance for needle placement (eg, biopsy, aspiration, ? injection, localization device), imaging supervision and interpretation Diagnosis Code(s): ? --- Professional --- ? R74.9, Abnormal serum enzyme level, unspecified ? --- Technical --- ? R74.9, Abnormal serum enzyme level, unspecified CPT copyright 2015 [employer]. All rights reserved. The codes documented in this report are preliminary and upon tapper bit review may be revised to meet current compliance requirements. Dr. Jose Rafael Thopmson Jose Rafael Thompson MD 01/20/2018 11:15:04 AM This report has been signed electronically. Number of Addenda: 0 Note Initiated On: 01/19/2018 9:30 AM Procedure Date: ? 01/20/2018 9:30:00 AM ? This report has been signed electronically. [facility] 01/20/2018 9:30 AM CDT Jose Rafael Thompson MD GI PROCEDURE ORDERAB LES Performing Organization Address City/State/[facility] Co de Phone Number [facility] [address] [place] [address] * PREPARE (CROSSMATCH) RBC UNIT(S), 1 Units (01/20/2018 9:15 AM CDT) Product Code [id number] [facility] Unit Donor # [id number] [facility] ABO Donor Type A [facility] Rh Type Unit POS [facility] Unit Status Ret'd [facility] ABO Rh Type Unit APOS [facility] Donor Unit Expiration Date [id number] [facility] Blood Type Barcode [address] [facility] Blood Bank BLOOD SPECIMEN / Unknown 01/20/2018 9:15 AM CDT Jose Rafael Thompson MD LAB - BLOOD BANK ORD ERABLES Performing Organization Address [facility]/ZIP Co de Phone Number [facility] [address] [place] [address] * TYPE + SCREEN PANEL (01/20/2018 9:09 AM CDT) ABO A 01/20/2018 10:42 AM CDT [facility] Rh Type Positive 01/20/2018 10:42 AM CDT [facility] Comment:History checked. Antibody Screen Negative 01/20/2018 10:42 AM CDT [facility] Blood Bank BLOOD SPECIMEN / Unknown Venipuncture / Unknown 01/20/2018 9:09 AM CDT 01/20/2018 9:30 AM CDT Jose Rafael Thompson MD LAB - BLOOD BANK ORD ERABLES Performing Organization Address [facility]/ZIP Co de Phone Number [facility] [address] [place] [address] * (ABNORMAL) PT PTT PANEL (01/20/2018 9:09 AM CDT) PT 11.7(H) 9.5 - 11.6 sec 01/20/2018 10:12 AM CDT [facility] INR 1.1 0.9 - 1.1 01/20/2018 10:12 AM CDT [facility] PTT 24.5 21.0 - 32.0 sec 01/20/2018 10:12 AM CDT [facility] Blood BLOOD SPECIMEN / Unknown Venipuncture / Unknown 01/20/2018 9:09 AM CDT 01/20/2018 9:31 AM CDT Narrative [facility] - 01/20/2018 10:12 AM CDT Conventional Warfarin Anticoagulant Therapy: INR Reference Range: ??2.0-3.0 Intensive Warfarin Anticoagulant Therapy: INR Reference Range: ? 2.5-3.5 Heparin Therapeutic Range for PTT: 47.7 - 68.6 seconds. Jose Rafael Thompson MD LAB - COAGULATION OR DERABLES [facility] [address] [place] [address] * (ABNORMAL) CBC W AUTO DIFFERENTIAL (01/20/2018 9:09 AM CDT) WBC 8.5 4.5 - 11.0 x10E9/L 01/20/2018 9:42 AM CDT [facility] WBC Corrected x10E9/L 01/20/2018 9:42 AM T [facility] RBC 6.07(H) 4.50 - 5.30 x10E12/L 01/20/2018 9:42 AM T [facility] Hemoglobin 16.3(H) 13.0 - 16.0 gm/dL 01/20/2018 9:42 AM T [facility] Hematocrit 47.4 37.0 - 49.0 % 01/20/2018 9:42 AM T [facility] MCV 78.1 78.0 - 98.0 fl 01/20/2018 9:42 AM CDT [facility] MCH 26.9 25.0 - 35.0 pg 01/20/2018 9:42 AM CDT [facility] MCHC 34.4 31.0 - 37.0 gm/dL 01/20/2018 9:42 AM T [facility] Platelet Count 310 100 - 400 x10E9/L 01/20/2018 9:42 AM T [facility] RDW-CV 12.8 11.5 - 14.0 % 01/20/2018 9:42 AM T [facility] MPV 10.5(H) 6.0 - 9.5 fl 01/20/2018 9:42 AM T [facility] Neutrophils % 49.3 31.0 - 78.0 % 01/20/2018 9:42 AM CDT [facility] Lymphocytes % 36.9 13.0 - 54.0 % 01/20/2018 9:42 AM CDT [facility] Monocytes % 7.8 4.0 - 13.0 % 01/20/2018 9:42 AM CDT [facility] Eosinophils % 4.6 0.0 - 8.0 % 01/20/2018 9:42 AM CDT [facility] Basophils % 0.7 % 01/20/2018 9:42 AM CDT [facility] Immature Granulocytes 0.7 % 01/20/2018 9:42 AM CDT [facility] Neutrophil Absolute 4.17 x10E9/L 01/20/2018 9:42 AM CDT [facility] Lymphocytes Absolute 3.12 x10E9/L 01/20/2018 9:42 AM CDT [facility] Monocytes Absolute 0.66 x10E9/L 01/20/2018 9:42 AM CDT [facility] Eosinophils Absolute 0.39 x10E9/L 01/20/2018 9:42 AM CDT [facility] Basophils Absolute 0.06 x10E9/L 01/20/2018 9:42 AM CDT [facility] Immature Granulocytes Absolute 0.06 x10E9/L 01/20/2018 9:42 AM T [facility] nRBC Auto 0 /100 WBC 01/20/2018 9:42 AM T [facility] Blood BLOOD SPECIMEN / Unknown Venipuncture / Unknown 01/20/2018 9:09 AM CDT 01/20/2018 9:30 AM CDT Jose Rafael Thompson MD LAB - HEMATOLOGY ORD ERABLES Performing Organization Address City/State/[facility] Co de Phone Number [facility] [place] [address] documented in this encounter Visit Diagnoses Diagnosis Elevated liver enzymes- Primary Nonspecific elevation of levels of transaminase or lactic acid dehydrogenase (LDH) Liver disorder Unspecified disorder of liver Obesity, unspecified classification, unspecified obesity type, unspecified whether serious comorbidity present documented in this encounter Administered Medications Inactive [...] 9:28 AM CDT 500 mL 967.74 mL/hr documented in this encounter Active and Recently Administered Medications Times are shown in CDT. Scheduled Medication Order 01/18/2018 01/19/2018 01/20/2018 isolyte-S pH 7.4 IV BOLUS 500 mL (COMPLETED) 500 mL, at 967.74 mL/hr, Administer over 31 Minutes, Intravenous, ONCE, 1 dose, On Karen 01/20/18 at 0945 0928 ($ New Bag/Syri nge - Provider: Lena Lu RN)0959 (Due: Stopped - Provider: Lena Lu RN) Continuous Medication Order 01/18/2018 01/19/2018 01/20/2018 isolyte-S pH 7.4 infusion at 115 mL/hr, Intravenous, POST-OP CONTINUOUS, Starting on Karen 01/20/18 at 1130, Until Karen 01/20/18 at 1639, PACU 1109 (Current Rate - Provider: Asif Bateman RN)1445 (Stopped - Provider: Asif Bateman RN) PRN Medication Order 01/18/2018 01/19/2018 01/20/2018 acetaminophen (TYLENOL) tablet 650 mg 650 mg, Oral, EVERY 4 HOURS PRN, Mild Pain, Starting on Karen 01/20/18 at 1127, Until Karen 01/20/18 at 1639 1132 ($ Given - Prov ider: Asif Bateman RN) lidocaine (XYLOCAINE) 1 % injection (CANCELED) PRN, [...] PACU documented in this encounter Care Teams Vision Specialist Relationship Specialty Start Date End Date Labarge, Godfrey Zapata MD [facility] [place] [address] PCP - General Pediatrics 05/01/14 Dipika Reddy MD [facility] [place] [address] Resident Student Resident 11/27/15 documented as of this encounter
--- OUTSIDE RECORDS SUMMARY | 2024-08-06 19:02 | XMS_ITS | Clinical Summary ---
Author Organization [facility] Address [address] [facility] [place] [address] Care Team Providers Care Labor Relations Manager Name Role Phone Godfrey Curry MD Primary Care Provider Dipika Reddy MD Unavailable [phone] Source Comments [facility],non-owned Affiliates and Associated Physician Practices is amultiple site organization consisting of ambulatory clinics and hospital sitesin [place], [place], [place] and [place]. This disclosure is being madepursuant to the Care Everywhere program and may not contain all information available regarding this patient. Last updated 18.[facility] Allergies No known active allergies Medications * [...] fluticasone propionate (FLONASE) 50 MCG/ACT nasal spray [place] 1 spray into each nostril once daily Collaborating Physician: Trevor Mak MD 1 bottles 05/19/2018 Active Active [...] 07/12/2015 Assessment & Plan (07/12/2015 5:[address]IO INSTALLER): Assessment: Has had 4 days of cough, [...] and 20/50 (right). Plan: - Optometry referral [facility] (well child check) 11/02/2013 Assessment & Plan [...] in 3 months if [facility] - Lifestyle modifications reviewed including limiting sugar drinks and sweets. Increased physical activity - Consider referral to weight management clinic if does not move to [place] - Also may be text for teens eligible if still living in [facility] in a year Allergic rhinitis 05/19/2011 Assessment [...] 03/19/2006, 1,2000,2000 TDAP (7yrs+) 07/24/2011 VARICELLA 12/04/2015,07/22/2001 Family History Medical History Relation Name Comments Acne Father Heart Disease Maternal Grandfather Anesthesia Reaction Maternal Grandmother Psoriasis Maternal Uncle Acne Mother Eczema Mother Learning Disability Mother and poss ibly in maternal grandmother Miscarriage Mother Depression Other extended matern al family Bleeding Disorders Neg Hx Childhood Hearing Disorder Neg Hx Relation Name Status Comments Father Maternal Grandfather Maternal Grandmother Maternal Uncle Mother Other Social History Tobacco Use Types Packs/Day Years [...] PM CDT Body Mass Index - - Plan of Treatment Health Maintenance Due Date Last Done Comments HIV SCREENING 2015 DTAP/TDAP/TD VACCINES (7 - Td or Tdap) 07/24/2021 07/24/2011, 03/19/2006, 01/19/2002, Additional history exists DEPRESSION SCREENING 08/02/2023 12/04/2015 COVID-19 VACCINE ( season) 2024 INFLUENZA VACCINE (#1) 2024 5, 08/17/2013, 06/23/2011 ZOSTER VACCINE (1 of 2) 2050 HIB VACCINE Completed 01/19/2002, 10/31, 2000 PNEUMOCOCCAL VACCINE Completed 01/19/2002, 01/17/2001, 2000, Additional history exists MENINGOCOCCAL VACCINE Aged Out 07/24/2011 No terri edgard eligible based on patient's age to complete this topic HPV VACCINE Completed 08/08/2012, 09/03, 07/24/2011 HEPATITIS B VACCINE Completed 12/04/2015, 01/19/2002, 2000, Additional history exists HEPATITIS C SCREENING Completed 11/12/2017 Procedures Procedure Name Priority Date/Time Associated Diagnosis Comments HEPATITIS SCREEN ACUTE Routine 11/12/2017 9:57 AM CDT Liver disorder from Last 3 Months or Most Recently Relevant to Health Maintenance Results * HEPATITIS SCREEN ACUTE (11/12/2017 9:57 AM CDT) HAV Antibody IgM Non Reactive Non Reactive 11/12/2017 11:57 AM CDT [facility] HBsAg Non Reactive Non Reactive 11/12/2017 11:57 AM CDT [facility] HBc Antibody IgM Non Reactive Non Reactive 11/12/2017 11:57 AM CDT [facility] HCV Antibody Screen Non Reactive Non Reactive 11/12/2017 11:57 AM CDT [facility] HCV S/C Ratio 0.05 0.00 - 0.79 11/12/2017 11:57 AM CDT [facility] Comment: Oqygnt-re-flsnpg ratio (S/CO) <0.80:?? Non Reactive Blood BLOOD SPECIMEN / Unknown Lab Venipuncture / Unknown 11/12/2017 9:57 AM CDT 11/12/2017 10:52 AM CDT Narrative [facility] - 11/12/2017 11:57 AM CDT Non Reactive - Antibodies to Hepatitis C virus (HCV) were not detected, result does not exclude early acute HCV infection. Jose Rafael Thompson MD LAB - CHEMISTRY HILDA MARIO [facility] [place] [address] from Last 3 Months or Most Recently Relevant to Health Maintenance Care Teams Labor Relations Manager Relationship Specialty Start Date End Date LabargeGodfrey MD [facility] [place] [address] PCP - General Pediatrics 05/01/14 Dipika Reddy MD [address] [place] [address] Resident Student Resident 11/27/15
--- OUTSIDE RECORDS SUMMARY | 2024-08-06 19:02 | XMS_ITS | Encounter Summary ---
Author Organization [facility] Address [address] [facility] [address] Care Team Providers Care Manager Community Name Role Phone Godfrey Curry MD Primary Care Provider [phone] Dipika Reddy MD Unavailable Reason for Visit * Reason Onset Date Comments Results 01/23/2018 Encounter Details Date Type Department Care Team (Late st Contact Info) Description 01/23/2018 Telephone [facility] [address] [place] [id number] Jose Rafael Thompson MD [address] [place] [id number] Results Social History Tobacco Use Types Packs/Day Years [...] Is person blind or have serious difficulty seewilfrido g? No 01/20/2018 Does person have serious dif ficulty walking/climbing stairs? No 01/20/2018 Does person have difficulty dressing/bathing? No 01/20/2018 Does person have difficulty doing errands alone? No 01/20/2018 Cognitive Status Response Date of Assessm ent Does person have difficulty concentrating/remembering/making decisions? No 01/20/2018 documented as of this encounter Miscellaneous Notes * Telephone Encounter - Brianda Irene RN - 01/24/2018 8:[address] Thompson's message with mother. * Telephone Encounter - Jose Rafael Thompson MD - 01/23/2018 11:09 AM CDT Liver biopsy suggests fatty liver disease. Please discuss diet and exercise. Keep us informed of progress. documented in this encounter Plan of Treatment Not on file documented as of this encounter Visit Diagnoses Not on filedocumented in this encounter Care Teams Manager Community Relationship Specialty Start Date End Date Godfrey Curry MD [address] [place] [phone] PCP - General Pediatrics 05/01/14 Dipika Reddy MD [address] [place] [phone] Resident Student Resident 11/27/15 documented as of this encounter
--- OUTSIDE RECORDS SUMMARY | 2024-08-06 19:02 | XMS_ITS | Encounter Summary ---
Author Organization [facility] Address [address] [place] [address] Care Team Providers Care Generation Technologist Name Role Phone Godfrey Curry MD Primary Care Provider [phone] Dipika Reddy MD Unavailable [phone] Reason for Visit * Reason Onset Date Comments Concerns 01/14/2018 Encounter Details Date Type Department Care Team (Late st Contact Info) Description 01/14/[address] [facility] - [facility]ermatology [address] [facility] [place] [address] Rani Solitario MD [address] [facility] [address] [place] [address] Concerns Social History Tobacco Use Types Packs/Day Years Used Date Smoking Tobacco: Never Smokeless Tobacco: Never Alcohol Use Standard Drinks/Week Comments No 0 (1 standard drink = 0.6 oz pur e alcohol) Sex and Gender Information Value Date Recorded Sex Assigned at Not on file Gender Identity Not on file Sexual Orientation Not on file documented as of this encounter Miscellaneous Notes * Telephone Encounter - Marline Gonzáles RN - 01/14/2018 2:42 PM CDT Received phone call from Mom, Giselle, states pt is concerned about having liver biopsy; requestingto have liver enzymes repeated prior to biopsy. Previous note: LV 10/01/17 with plan to initiate isotretinoin. Start of treatment held d/t elevated liver enzymes requiring GI eval. Seen by GI 11/12/17; recs for lab eval, hold isotretinoin--consider alternative treatment. Pt scheduled for liver biopsy 01/06/18. Previously discussed continuing topical acne medications with mom. Of note: Mom called GI 12/06/17 and rescheduled liver biopsy to later date: 01/20/18. D/w Dr. Solitario; recs to have Mom contact GI to discuss. Returned Mom's call with providers recs. documented in this encounter Plan of Treatment Not on file documented as of this encounter Visit Diagnoses Not on filedocumented in this encounter Care Teams Generation Technologist Relationship Specialty Start Date End Date Godfrey Curry MD [facility] [place] [address] PCP - General Pediatrics 05/01/14 Dipika Reddy MD [address] [place] [address] Resident Student Resident 11/27/15 documented as of this encounter
--- OUTSIDE RECORDS SUMMARY | 2024-08-06 19:02 | XMS_ITS | Encounter Summary ---
Author Organization [facility] Address [address] [place] [address] Care Team Providers Care Turbine Engineer Name Role Phone Godfrey Curry MD Primary Care Provider [phone] Dipika Reddy MD Unavailable [phone] Reason for Visit * Reason Comments Chest Pain chest pain off and o n for 4 days - not taking any medication for it. Feels like heart is fluttering per pt. Sharp pain that comes and goes. Denies any pain at this time. Encounter Details Date Type Department Care Team (Late st Contact Info) Description 10/25/2018 7:26 PM CDT - 10/25/2018 9:07 PM CDT Emergency ER at [address] [address] Shane Marquez MD [address] [place] [id number] Other chest pain; Palpitations Discharge Disposition: Home or Self Care Social [...] 9.4 oz) 10/25/2018 7:23 PM CDT Height - - Body Mass Index - - documented in this encounter Functional Status Functional [...] 01/20/2018 documented as of this encounter Discharge Instructions * Discharge Instructions* Shane Marquez MD - 10/25/2018 8:53 PM CDT Heart Palpitations in Adolescents WHAT YOU NEED TO KNOW: Heart palpitations are feelings that your heart races, jumps, throbs, or flutters. You may feel extra beats, no beats for a short time, or skipped beats. You may have these feelings in your chest, throat, or neck. They may happen when you are sitting, standing, or lying. Heart palpitations may be frightening, but are usually not caused by a serious problem. DISCHARGE INSTRUCTIONS: Call 911 or have someone else call for any of the following: ?? You have squeezing, pressure, or pain in your chest. ?? You feel short of breath or have trouble breathing. ?? You faint or lose consciousness. Return to the emergency department if: ?? Your palpitations happen more often or get more intense. Contact your healthcare provider if: ?? You have new or worsening swelling in your feet or ankles. ?? You have questions or concerns about your condition or care. Follow up with your healthcare provider as directed: You may need to follow up with a tombstone carver.You may need more tests to check for heart problems that cause palpitations. Write down your questions so you remember to ask them during your visits. Keep a record: Write down when your palpitations start and stop, what you were doing when they started, and your symptoms. Keep track of what you ate or drank within a few hours of your palpitations.Include anything that seemed to help your symptoms, such as lying down or holding your breath. Thisrecord will help you and your healthcare provider learn what triggers your palpitations. Bring thisrecord with you to your follow up visits. Help prevent heart palpitations: ?? Manage stress and anxiety. Find ways to relax such as listening to music, meditating, exercising, or doing yoga. Talk to someone you trust about your stress or anxiety. You can also talk to a school counselor or a therapist. ?? Get plenty of sleep every night. Ask your healthcare provider how much sleep you need each night. ?? Do not drink caffeine or alcohol. Caffeine and alcohol can make your palpitations worse. Caffeine is found in soda, coffee, tea, chocolate, and drinks that increase your energy. ?? Do not smoke. Nicotine and other chemicals in cigarettes and cigars may damage your heart and blood vessels. Ask your healthcare provider for information if you currently smoke and need help to quit. E-cigarettes or smokeless tobacco still contain nicotine. Talk to your healthcare provider before you use these products. ?? Do not use illegal drugs. Talk to your healthcare provider if you use illegal drugs and want help to quit. ?? Copyright [employer] 2019 Information is for End User's use only and may not be sold, redistributed or otherwise used for commercial purposes. All illustrations and images included in CareNotes?? are the copyrighted property of [employer]. or [employer] The above information is an medication aide only. It is not intended as medical advice for individual conditions or treatments. Talk to your doctor, nurse or pharmacist before following any medical regimen to see if it is safe and effective for you. documented in this encounter Medications at Time of Discharge Medication Sig Dispensed Refills Start Date End Date benzoyl peroxide (BENZOYL PEROXIDE) 5 % wash Apply to affected area once daily 1 bottles 07/05/2017 fluticasone propionate (FLONASE) 50 MCG/ACT nasal spray [place] 1 spray into each nostril once daily Collaborating Physician: Trevor Mak MD 1 bottles 05/19/2018 ibuprofen (MOTRIN) 200 MG tablet Take 400 mg by mouth every 6 hours as needed for Pain levocetirizine (XYZAL) 5 MG tablet Take 5 mg by mouth once daily tretinoin (RETIN-A) 0.05 % creamIndications:Acne vulgaris Apply to affected area at bedtime 45 g 1 07/05/2017 documented as of this encounter ED Notes * Kathrin Carlisle RN - 10/25/2018 9:06 PM CDT Patient discharged in stable condition with [facility]. Instructions provided with verbalized understanding. * Shane Marquez MD - 10/25/2018 8:10 PM CDT Provider contact with the patient: 10/25/2018 8:10 PM [facility] EMERGENCY DEPARTMENT Erick Triana [id number] History Chief Complaint Patient presents with ??? Chest Pain chest pain off and on for 4 days - not taking any medication for it. Feels like heart is flutteringper pt. Sharp pain that comes and goes. Denies any pain at this time. Chief complaint narrative was entered by triage nurse, not by physician. I have read the resident/medical student/LEGAL EXECUTIVE ASSISTANT history. Unless appended by me below, I agree with findings as documented. HPI History provided per: patient Erick Triana is a 18 year old male who presents to ED for evaluation of chest pain that began 4days ago. Pain is intermittent and lasts for a couple seconds then resolves. Patient states that this occurs every 20 minutes. Pain is not made better or worse from anything, it seems random and self-resovles. Patient also endorses intermittent palpitations but states that it does not always occur with chest pain. Denies cough, congestion, and rhinorrhea. No other recent injuries or illnesses. All immunizations are up-to-date. No Known Allergies Review of Systems All relevant systems reviewed and all negative except as noted in resident/medical student/LEGAL EXECUTIVE ASSISTANT and attending HPI/ROS. Constitutional: No activity change, appetite change or fever HENT: No congestion or rhinorrhea Respiratory: No cough or wheezing. +SOB Cardiovascular: +palpitations GI: No abdominal pain, diarrhea, nausea or vomiting : No decreased urine output MS: +chest pain, +left arm pain Neuro: Negative Skin: No rash or wounds All other systems negative except as noted above. Physical Exam I have reviewed the resident/medical student/LEGAL EXECUTIVE ASSISTANT physical exam. Unless appended by me below, I agreewith the PE as documented. Vitals: 10/25/18192210/25/181923 BP: 150/80 Pulse: 88 Resp: 24 Temp: 98 ??F (36.7 ??C) SpO2: 99% Weight: (!) 136.8 kg (301 lb 9.4 oz) Constitutional: Pt appears well-developed and well-nourished; in no acute distress Head: Normocephalic; atraumatic. Eyes: Conjunctivae are normal. ENT: Mucous membranes moist. Neck: Supple. Normal ROM. Cardiovascular: Regular rate and rhythm. S1 and S2 normal. No murmurs, rubs or gallops. Pulmonary: Normal respiratory effort. Breath sounds clear and equal bilaterally; no wheezing, rales, or rhonchi. Abdominal: Soft. No abdominal tenderness. No distension. Musculoskeletal: Chest pain is not reproducible. Extremities: Full ROM. Neurological: Pt is alert and interactive. Skin: No rash or lesions. Nursing notes and vitals reviewed. Procedures Procedures Labs/Orders Orders Placed This Encounter ??? XR CHEST PA AND LATERAL ??? EKG 15-LEAD XR CHEST PA AND LATERAL (Results Pending) 8:40 PM Preliminary view and read of CXR by me: normal No results found for this visit on 10/25/18. ED Course Initial Assessment & Plan: Unclear etiology. Will obtain CXR and EKG. 8:47 PM EKG with questionable delta wave but normal sinus rhythm otherwise. No obvious cause of chest pain.Follow up with cardiology. 8:51 PM The patient remains stable at the time of discharge. My/Our clinical impression was discussed and results were reviewed. The patient/guardian was given the opportunity to ask questions, and I/we addressed them as completely as possible given the information available at present. The therapeutic plan was discussed, instructions were given and the importance of primary care follow up was stressed and encouraged. The patient/guardian voiced understanding of the plan, indications to return, and theneed for follow up. Medical Decision Making Differential Diagnosis: low concern for cardiac etiology vs pulmonary vs GI vs musculoskeletal Medical Decision Making I have reviewed the: Previous Chart, Nursing Notes, Vitals. I have interpreted the following results: 12 Lead EKG, X-Ray, Oxygen Saturation. I have discussed the case with Family/Caregiver. The total time providing critical care (excluding time spent for procedures) was: 0 minutes. Clinical Impression and Disposition Final Diagnosis: Final diagnoses: Other chest pain Palpitations New Medications: Discharge Medication List as of 10/25/2018 9:02 PM I have advised the patient to follow-up with: Godfrey Curry MD [address] [place] [address] [id number] [address] [address] Disposition: Discharged 10/25/2018 8:51 PM Scribe Attestation By signing my name below, I, Shabana Card, attest that this documentation has been prepared under the direction and in the presence of Dr. Marquez Electronically Signed: Shabana Card 10/25/2018 8:10 PM Provider Attestation I, Dr. Marquez, personally performed the services described in this documentation. All medical record entries made by the scribe were at my direction and in my presence. I have reviewed the chart andagree that the record reflects my personal performance and is accurate and complete. I have fully pa rticipated in the care of this patient. I have reviewed all pertinent clinical information available to me during this encounter, including history, physical exam and plan. I have reviewed nursing notes, vital signs, available labs and radiographic studies. With respect to physicians in training and mid-level providers, I, Dr. Marquez, agree with the assessment and plan except if revised in my note. * Shauna Robles MD - 10/25/2018 7:39 PM CDT EMERGENCY DEPARTMENT 10/25/2018 Dear Doctor, We had the pleasure of caring for your patient, Erick Triana in our emergency department on 10/25/2018. A note from the provider(s) who cared for your patient is attached. Should you wish to access any laboratory results, please call . Should you wish to access any radiology results, please call , option 3. In addition, you can access patient information 24 hours a day, from any computer, through [employer], the online version of our electronic medical record. If you would like to use this service, please call Cherise Mejias, Connectivity Coordinator, at . We appreciate the opportunity to care for your patients. If you would like additional information, please call the emergency department directly at . Sincerely, Shauna Robles MD Division of Emergency Medicine [facility], [facility] [place] DES[facility] EMERGENCY DEPARTMENT Provider contact with the patient: 10/25/2018 19:39 Erick Triana [id number] [facility] EMERGENCY DEPARTMENT History Chief Complaint Patient presents with ??? Chest Pain chest pain off and on for 4 days - not taking any medication for it. Feels like heart is flutteringper pt. Sharp pain that comes and goes. Denies any pain at this time. HPI 18 yo male with history of allergies presenting with 4 day history of intermittent chest pain. Describes pain as sharp, 5/10 on left side, episodes last for about 5-10 seconds and self-resolve, come and go about every 20 minutes. L arm pain with one episode last night. Endorsing SOB lately. No light headedness or dizziness, no previous chest pain. Also endorses palpitations during this time, sometimes associated with pain other times no pain. Sometimes having worse pain with deep inspiration. Has not tried any medication for the pain. No nausea, vomiting or diarrhea. Normal PO intake. IUTD, did not receive flu shot. Mother, grandmother and grandfather and uncle with cardiac issues, nothing at young age. No historyof SCD. Unsure of mother's condition but reports that she had a Holter monitor in the past and is currently on daily medication. Reports that he had history of heart murmur at but self-resolved. Past Medical History: Diagnosis Date ??? Acne [...] History: Procedure Laterality Date ??? ADENOIDECTOMY ??? LIVER BIOPSY 01/20/2018 BIOPSY LIVER (NEEDLE/PERCUTANEOUS) ??? Tonsillectomy ??? Tonsillectomy and Adenoidectomy 04/01/07 Social History Social History ??? Marital status: Single Spouse name: N/A ??? Number of children: N/A ??? Years of education: N/A Occupational History ??? Not on file. Social History Main Topics ??? Smoking status: Never Smoker ??? Smokeless tobacco: Never Used ??? Alcohol use No ??? Drug use: No ??? Sexual activity: No Other Topics Concern ??? Not on file Social History Narrative Lives at home with [...] are stupid . Never been sexually active. Medications Current Outpatient Prescriptions Medication Sig Dispense Refill ??? benzoyl peroxide (BENZOYL PEROXIDE) 5 % wash Apply to affected area once daily 1 bottles 0 ??? fluticasone propionate (FLONASE) 50 MCG/ACT nasal spray [place] 1 spray into each nostril once daily Collaborating Physician: Trevor Mak MD 1 bottles 0 ??? ibuprofen (MOTRIN) 200 MG tablet Take 400 mg by mouth every 6 hours as needed for Pain ??? levocetirizine (XYZAL) 5 MG tablet Take 5 mg by mouth once daily ??? tretinoin (RETIN-A) 0.05 % cream Apply to affected area at bedtime 45 g 1 Review of Systems Review of Systems Constitutional: Negative for activity change, appetite change, diaphoresis and fever. HENT: Negative for congestion, mouth sores, rhinorrhea and sore throat. Eyes: Negative for pain, redness and visual disturbance. Respiratory: Positive for shortness of breath. Negative for apnea, cough and wheezing. Cardiovascular: Positive for chest pain and palpitations. Gastrointestinal: Negative for abdominal distention, abdominal pain, constipation, diarrhea, nauseaand vomiting. Genitourinary: Negative for decreased urine volume. Musculoskeletal: Negative. Skin: Negative for rash. Neurological: Negative for dizziness, syncope, weakness, light-headedness and headaches. Psychiatric/Behavioral: Negative for sleep disturbance. BP 150/80 Pulse 88 Temp 98 ??F (36.7 ??C) Resp 24 Wt (!) 136.8 kg (301 lb 9.4 oz) SpO2 99% Physical Exam Physical Exam Constitutional: He is oriented to person, place, and time. He appears well- developed and well-nourished. No distress. Overweight HENT: Head: Normocephalic and atraumatic. Right Ear: External ear normal. Left Ear: External ear normal. Mouth/Throat: Oropharynx is clear and moist. Eyes: Pupils are equal, round, and reactive to light. Conjunctivae are normal. Right eye exhibits no discharge. Left eye exhibits no discharge. Neck: Normal range of motion. Cardiovascular: Normal rate, regular rhythm and normal heart sounds. No murmur heard. Pulmonary/Chest: Effort normal and breath sounds normal. No respiratory distress. He has no wheezes. He exhibits tenderness. Abdominal: Soft. Bowel sounds are normal. He exhibits no distension and no mass. There is no tenderness. Musculoskeletal: Normal range of motion. He exhibits no edema. Neurological: He is alert and oriented to person, place, and time. He exhibits normal muscle tone. Skin: Skin is warm. No rash noted. He is not diaphoretic. No pallor. Procedures Procedures ECG Interpretation ECG Interpretation Lab/SPO2 Interpretation Progress Notes ED Course 18 yo male presenting with 4 day history of intermittent chest pain and palpitations. DDx: cardiac etiology vs MSK pain vs pulmonary process vs palpitations secondary to anxiety. Will obtain CXR and EKG. EKG with possible delta waves, otherwise normal sinus rhythm. CXR unremarkable (no cardiomegaly, nofocal consolidations). Plan: Discharge home with supportive care for chest pain. Should keep diary of palpitations and follow up with Cardiology as an outpatient. Discussed plan with family and they are agreeable to plan. I have reviewed the diagnostic findings with the patient and they have had an opportunity to ask meany questions they have about care, diagnosis and discharge plan. The patient is comfortable with the discharge plan. They will follow up as directed and will return to the ER if their condition worsens or if they develop other urgent concerns. ED Course Medical Decision Making Clinical Impression Final diagnoses: Other chest pain Palpitations documented in this encounter Plan of Treatment Not on file documented as of this encounter Procedures Procedure Name Priority Date/Time Associated Diagnosis Comments EKG 15-LEAD STAT 10/25/2018 8:39 PM CDT Other chest pain XR CHEST 2VW STAT 10/25/2018 8:36 PM CDT Other chest pain documented in this encounter Results * EKG 15-LEAD (10/25/2018 8:39 PM CDT) Ventricular Rate 74 BPM CG MUSE Atrial Rate 74 BPM CG MUSE P-R Interval 154 ms CG MUSE QRS Duration ms 118 ms CG MUSE Q-T Interval ms 382 ms CG MUSE QTC Calculation (Bezet) 424 ms CG MUSE Calculated P [place] 23 degrees CG MUSE Calculated R [place] -17 degrees CG MUSE Calculated T [place] 22 degrees CG MUSE Interpretation EKG Normal sinus rhythm with sinus arrhythmia Leftward axis No previous ECGs available Confirmed by MICHELET FABIAN ([id number]) on 11/01/2018 12:17:17 PM CG MUSE 10/25/2018 [...] Shauna Robles MD DIAGNOSTIC IMAGIN G ORDERABLES documented in this encounter Visit Diagnoses Diagnosis Other chest pain Palpitations documented in this encounter Care Teams Turbine Engineer Relationship Specialty Start Date End Date Labarge, Godfrey Zapata MD [address] [place] [phone] PCP - General Pediatrics 05/01/14 Dipika Reddy MD [address] [place] [phone] Resident Student Resident 11/27/15 documented as of this encounter
--- OUTSIDE RECORDS SUMMARY | 2024-08-06 19:02 | XMS_ITS | Encounter Summary ---
Author Organization [facility] Address [address] [place] [address] Care Team Providers Care Professor Of Special Education Name Role Phone Godfrey Curry MD Primary Care Provider [phone] Dipika Reddy MD Unavailable [phone] Reason for Visit * Reason Onset Date Comments Scheduling 12/06/2017 Encounter Details Date Type Department Care Team (Late st Contact Info) Description 12/06/2017 Telephone [facility] Pediatrics - GI [address] [place] [address] Valencia Betts Scheduling Social History Tobacco Use Types Packs/Day Years [...] encounter Miscellaneous Notes * Telephone Encounter - Fatmata Henriquez RN - 12/06/2017 3:28 PM CDT Updated prep letter mailed to home address. * Telephone Encounter - Valencia Betts - 12/06/2017 3:02 PM CDT Mom called to reschedule Liver Bx, new date 01/20/2018 @ 11:[address] Thompson, [place] dept notified, patient to arrive 2 hours early (Please send Liver Bx prep to home address on file) documented in this encounter Plan of Treatment Not on file documented as of this encounter Visit Diagnoses Not on filedocumented in this encounter Care Teams Professor Of Special Education Relationship Specialty Start Date End Date Godfrey Curry MD [facility] [place] [phone] PCP - General Pediatrics 05/01/14 Dipika Reddy MD [facility] [place] [phone] Resident Student Resident 11/27/15 documented as of this encounter
--- OUTSIDE RECORDS SUMMARY | 2024-08-06 19:02 | XMS_ITS | Data Portability ---
Author Organization [facility] MELODY Darvin aCno Address [address] [place] [address] Care Team Providers Care Body Shop Technician Name Role Phone IRENE DANG Primary Care Provider Assessment Encounter Date Assessment Date Assessment LastModified by Organization Details LastModified Time 11/24/2023 11/24/2023 Sections of the HPI, exam and assessment completed by DAKOTAH Nam student and have been reviewed by me. I agree with the exam findings, assessment and plan except where specifically documented or amended. -Irene Dang, [facility], [place] Not available 11/24/2023 14:25:25 Plan of Treatment Reminders Order Date Submit Date Provider Last Modified By Organization Details Last Modified Time Details Appointments ANY 15 2024 09:00A M ADELITA CLAIRE Not available Not available Not available ANY 30 2024 07:30A M LIAT SINGH PA-C Not available Not available Not available Lab rapid strep group A, throat 2022 023 CHELI In-Office Order, Internal Use Only DO Not Attach Compendium DO Not Attach Compendium, Do Not Delete/merge, [id number] 04/19/2023 13:12:43 rapid SARS CoV 2 Ag, QL IA, respirat ory specimen 2022 023 CHELI In-Office Order, Internal Use Only DO Not Attach Compendium DO Not Attach Compendium, Do Not Delete/merge, [id number] 04/19/2023 13:15:57 rsv (respira tory syncytia l virus), rapid, nasophar yngeal 2022 023 CHELI In-Office Order, Internal Use Only DO Not Attach Compendium DO Not Attach Compendium, Do Not Delete/merge, [id number] 04/19/2023 13:16:13 culture, urine 2022 023 [facility], [address], [address], [place], [address], 07/25/2023 02:06:36 urinalys is, dipstick 2022 023 WALLACE In-Office Order, Internal Use Only DO Not Attach Compendium DO Not Attach Compendium, Do Not Delete/merge, [id number] 07/22/2023 16:55:15 H pylori urea breath test, co2 infrared 2023 024 [facility] (Lab), [address], [place], [address], 12/16/2023 16:16:13 H pylori urea breath test, co2 infrared 2023 024 [facility] [address], [place], [address], 04/12/2024 16:13:40 Referral allergis t referral 2022 023 neil Croft MD, [address] [facility], [place], [address], 05/31/2023 12:49:[address] referral 2023 024 [facility], [address], [place], [address], 12/13/2023 17:01:52 Procedures None recorded . Surgeries None recorded . Imaging None recorded . Medication Orders Zithroma x Z-Harvey 250 mg tablet 2022 023 [id number], [address], [place], [place], [id number], 08/25/2023 10:17:46 pantopra zole 40 mg tablet,d elayed release 2023 024 CHELI [id number], [address] [facility], [place], [place], [id number], 04/10/2024 15:34:55 Patient TargetsNo targets recorded. Patient Instructions Encounter Date Encounter Id Patient Instructions Last Modified By Organization Details Last Modified Time 11/24/2023 [id number] A healthy lifestyle: care instructions [email or web address] Not available 11/24/2023 19:49:15 12/14/2023 [id number] Patient to call with update in 3-5 weeks [email or web address] Not available 12/14/2023 12:26:11 Reason for Referral Reliner Referral for Aller gic rhinitis Referring Physician: Irene Dang [facility], Encounter Date: 04/19/2023 Vibratory Pile Driver Referral for Gastroesophageal reflux disease without esophagitis Referring Physician: Irene Dang [facility], Encounter Date: 11/24/2023 Results Created Date Observation Date Name Description Value Unit Range Abnormal Flag Note LastModifiedBy Organization Detail LastModifiedTime 04/19/2004/19/2023 rsv (resp irato ry syncy tial virus ), rapid , nasop haryn geal RSV negati ve Not Available In-Office Order Internal Use Only DO Not Attach Compendium DO Not Attach Compendium, Do Not Delete/merge, [id number] 04/19/2023 12:57:17 04/19/2004/19/2023 rapid SARS CoV 2 Ag, QL IA, respi rator y speci men rapid SARS CoV 2 Ag, QL IA, respiratory specimen negati ve Not Available In-Office Order Internal Use Only DO Not Attach Compendium DO Not Attach Compendium, Do Not Delete/merge, [id number] 04/19/2023 12:57:12 04/19/2004/19/2023 rapid strep group A, throa t Strep negati ve Not Available In-Office Order Internal Use Only DO Not Attach Compendium DO Not Attach Compendium, Do Not Delete/merge, [id number] 04/19/2023 12:56:59 07/22/20 23 07/25/2023 URINE CULTU RE, ROUTI NE urine culture, routine Final report Not Available [facility] ([facility]) [address] [facility], [place], [address], 07/25/2023 02:06:36 07/22/20 23 07/25/2023 URINE CULTU RE, ROUTI NE result 1 Commen t Cultu re shows less than 10,00 0 colon y formi ng units of bacte kourtney per quinton liter of urine . This colon y count is not gener ally consi dered to be clini jonathan signi fican t. Not Available [facility] ([facility]) [address], [place], [address], 07/25/2023 02:06:36 07/23/20 23 07/23/2023 urina lysis , dipst ick Leukocytes Negati ve Not Available In-Office Order Internal Use Only DO Not Attach Compendium DO Not Attach Compendium, Do Not Delete/merge, [id number] 07/22/2023 12:27:57 07/23/20 23 07/23/2023 urina lysis , dipst ick Nitrite negati ve Not Available In-Office Order Internal Use Only DO Not Attach Compendium DO Not Attach Compendium, Do Not Delete/merge, [id number] 07/22/2023 12:27:57 07/23/20 23 07/23/2023 urina lysis , dipst ick Urobilinogen .2 Not Available In-Of fice Order Internal Use Only DO Not Attach Compendium DO Not Attach Compendium, Do Not Delete/merge, [id number] 07/22/2023 12:27:57 07/23/20 23 07/23/2023 urina lysis , dipst ick Protein Negati ve Not Available In-Office Order Internal Use Only DO Not Attach Compendium DO Not Attach Compendium, Do Not Delete/merge, [id number] 07/22/2023 12:27:57 07/23/20 23 07/23/2023 urina lysis , dipst ick pH 6.0 Not Available In-Office Order Internal Use Only DO Not Attach Compendium DO Not Attach Compendium, Do Not Delete/merge, [id number] 07/22/2023 12:27:57 07/23/20 23 07/23/2023 urina lysis , dipst ick Blood Negati ve Not Available In-Office Order Internal Use Only DO Not Attach Compendium DO Not Attach Compendium, Do Not Delete/merge, [id number] 07/22/2023 12:27:57 07/23/20 23 07/23/2023 urina lysis , dipst ick Specific Nevis 1.015 Not Available In-Off ice Order Internal Use Only DO Not Attach Compendium DO Not Attach Compendium, Do Not Delete/merge, [id number] 07/22/2023 12:27:57 07/23/20 23 07/23/2023 urina lysis , dipst ick Ketone Negati ve Not Available In-Office Order Internal Use Only DO Not Attach Compendium DO Not Attach Compendium, Do Not Delete/merge, [id number] 07/22/2023 12:27:57 07/23/20 23 07/23/2023 urina lysis , dipst ick Bilirubin Negati ve Not Available In-Office Order Internal Use Only DO Not Attach Compendium DO Not Attach Compendium, Do Not Delete/merge, [id number] 07/22/2023 12:27:57 07/23/20 23 07/23/2023 urina lysis , dipst ick Glucose Negati ve Not Available In-Office Order Internal Use Only DO Not Attach Compendium DO Not Attach Compendium, Do Not Delete/merge, [id number] 07/22/2023 12:27:57 07/23/20 23 07/23/2023 urina lysis , dipst ick Appearance Clear Not Available In-Offi ce Order Internal Use Only DO Not Attach Compendium DO Not Attach Compendium, Do Not Delete/merge, [id number] 07/22/2023 12:27:57 07/23/20 23 07/23/2023 urina lysis , dipst ick Color Dark Yellow Not Available In-Office Order Internal Use Only DO Not Attach Compendium DO Not Attach Compendium, Do Not Delete/merge, [id number] 07/22/2023 12:27:57 05/12/16/2023 H PYLOR I BREAT H TEST H pylori breath test *ABNO RMAL* Posit brenda Perfo rmed at: 01 - [facility] [address] [place] [address] 12[address] Lab Direc tor: Morgan arguello PhD, Phone : [phone] Not Available [facility] (Lab) [address] [place], [address], 12/16/2023 16:16:13 04/10/20 24 04/12/2024 H PYLOR I BREAT H TEST H pylori breath test Negat brenda Perfo rmed at: 01 - [facility] [address] [place] [address] 12[address] Lab Direc tor: Morgan arguello PhD, Phone : [phone] Not Available [facility] (Lab) [address] [place], [address], 04/12/2024 16:13:40 Result Notes None recorded. Problems Name Problem SNOMED Code Status Onset Date Resolution Date Notes Provider Name and Address Organization Details Recorded Time Morbid obesity 506432867 Active 2022 DAKOTAH FARIA Attn: Olivier mishra,[address] [place], [address], [place] - [facility] 3 10:38:22 Mixed anxiety and depressive disorder 152849161 Active 2022 DAKOTAH FARIA Attn: Olivier g,[address] [place], [address], [place] [facility] 3 10:38:20 Essential hypertension 18233081 Active 2022 DAKOTAH FARIA Attn: Olivier g,[address] [place], [address], [place] [facility] 3 10:38:19 Gastroesophage al reflux disease without esophagitis 870785506 Active 2023 DAKOTAH FARIA Attn: Olivier g,[address] [place], [address], [place] [facility] 4 19:50:39 Notes:fatty liver disease..p re diabetic Problem Notes None recorded. Procedures Surgical History Date Name Laterality Status Provider Name and Address Organization Details Recorded Time Remove tonsils and adenoids completed Linda Singh MA [facility] 09/11/2022 14:01:41 Imaging Results None recorded. Procedure Notes None recorded. Medical Equipment None Reported. Allergies No known drug allergies Medications Name Sig Start Date Stop Date Status Note LastModified by Organization Details LastModified Time azithromyci n 250 mg tablet TAKE 2 TABLETS BY MOUTH ON DAY 1, THEN TAKE 1 TABLET BY MOUTH DAILY FOR 4 DAYS active Not Available Not Available No t Available clarithromy jose g 500 mg tablet TAKE 1 TABLET BY MOUTH TWICE DAILY FOR 14 DAYS 04/10 completed Not Available Not Available Not Available amoxicillin 500 mg tablet TAKE 2 TABLETS BY MOUTH TWICE DAILY FOR 14 DAYS 04/10 completed Not Available Not Available Not Available famotidine 20 mg tablet TAKE 1 TABLET BY MOUTH TWICE DAILY 04/10 completed Not Available Not Available Not Available chorionic gonadotropi n, human 10,000 unit IM powder for solution DILUTE WITH 5ML SOLVENT INCLUDED IN BOX AND INJECT 25 UNITS SUB-Q TWICE WEEKLY active Not Available Not Available No t Available pantoprazol e 40 mg tablet,rell yed release Take 1 tablet every day by oral route for 30 days. active Not Available Not Available No t Available triamcinolo ne acetonide 0.1 % topical ointment APPLY THIN LAYER TOPICALLY TO AFFECTED AREA TWICE DAILY active Not Available Not Available No t Available polymyxin B sulfate 10,000 unit-trimet hoprim 1 mg/mL eye drops INSTILL 1 DROP INTO AFFECTED EYE(S) EVERY 6 HOURS FOR 5 DAYS 08/25 completed Not Available Not Available Not Available buspirone 7.5 mg tablet Take 1 tablet twice a day by oral route as directed for 30 days. 11/16 completed Not Available Not Available Not Available montelukast 10 mg tablet TAKE 1 TABLET BY MOUTH ONCE DAILY IN THE MORNING 04/19 completed Not Available Not Available Not Available lisinopril 40 mg tablet Take 1 tablet every day by oral route in the morning for 30 days. 11/16 completed Not Available Not Available Not Available buspirone 15 mg tablet TAKE 1 TABLET BY MOUTH TWICE DAILY DIRECTED 04/19 completed Not Available Not Available Not Available Mounjaro 2.5 mg/0.5 mL subcutaneou s pen injector 11/12 completed Not Available Not Available Not Available Vitals Date Recorded Body height Body mass index (BMI) Body weight Oxygen saturation Oxygen saturation in Arterial blood by Pulse oximetry Heart rate Systolic blood pressure Diastolic blood pressure Provider Name and Address Organization Details Last Updated DateTime 3 182.88 cm 45.4 kg/m2 859399. 44 g 98 % 98 % 80 /min 126 mm[Hg] 84 mm[Hg] Linda Singh MA [place] - [facility] 3 12:33:26 Date Recorded Respiratory rate Provider Name a [place] Address Organization Details Last Updated DateTime 04/19/2023 18 /min DAKOTAH FARIA Attn: Accounting,[address] [place], [address], [facility] 04/19/2023 15:34:29 Date Recorded Body height Body mass index (BMI) Body weight Oxygen saturation Oxygen saturation in Arterial blood by Pulse oximetry Heart rate Respiratory rate Systolic blood pressure Diastolic blood pressure Provider Name and Address Organization Details Last Updated DateTime 4 182.88 cm 39.7 kg/m2 329381. 56 g 97 % 97 % 86 /min 16 /min 143 mm[Hg] 80 mm[Hg] Linda Singh MA [place] - [facility] 4 14:01:38 Date Recorded Systolic blood pressure Diastolic blood pressure Provider Name and Address Organization Details Last Updated DateTime 11/24/2023 150 mm[Hg] 90 mm[Hg] DAKOTAH FARIA Attn: Accounting[address] [place], [address], [facility] 11/24/2023 14:19:33 Date Recorded Body height Body mass index (BMI) Body weight Body temperature Heart rate Systolic blood pressure Diastolic blood pressure Provider Name and Address Organization Details Last Updated DateTime 4 182.88 cm 39.7 kg/m2 466073. 56 g 98.7 [degF] 67 /min 136 mm[Hg] 74 mm[Hg] Alexandra Brock MA [facility] 4 12:07:55 Date Recorded Body height Body mass index (BMI) Body weight Body temperature Heart rate Oxygen saturation Oxygen saturation in Arterial blood by Pulse oximetry Systolic blood pressure Diastolic blood pressure Provider Name and Address Organization Details Last Updated DateTime 4 182.88 cm 39.2 kg/m2 958612. 84 g 97.3 [degF] 79 /min 99 % 99 % 156 mm[Hg] 99 mm[Hg] Jeanie Alvarado [facility] 4 15:29:40 Social History Question Answer Notes LastModified by Organizat ion Details LastModified Time Tobacco Smoking Status Never Smoker Linda Singh MA [facility], [facility] 09/11/2022 14:01:23 What Is Your Level Of Alcohol Consumption? Occasional Information not available 09/11/2022 What Is Your Level Of Caffeine Consumption? Occasional [email or web address] Information not available 09/11/2022 In The 14 Days Before Symptom Onset, Have You Had Close Contact With A Laboratory-confir med COVID-19 While That Case Was Ill? No [email or web address] Information not available 09/11/2022 In The 14 Days Before Symptom Onset, Have You Had Close Contact With A Person Who Is Under Investigation For COVID-19 While That Person Was Ill? No [email or web address] Information not available 09/11/2022 Have You Been To An Area Known To Be High Risk For COVID-19? No Information not available 09/11/2022 Do You Or Have You Ever Used E-cigarettes Or Vape? Current User Of Electronic Cigarettes [email or web address] Information not available 11/24/2023 Are There Any Guns Present In Your Home? No Information not available 09/11/2022 What Was The Date Of Your Most Recent Tobacco Screening? 04/10/2024 Information not available 04/10/2024 Do You Have Smoke And Carbon Monoxide Detectors In Your Home? Yes [email or web address] Information not available 09/11/2022 Are You Passively Exposed To Smoke? No Information no t available 09/11/2022 Do You Use Any Illicit Or Recreational Drugs? No Information not available 09/11/2022 Do You Use Sunscreen Routinely? No [email or web address] Information not available 09/11/2022 Has Tobacco Cessation Counseling Been Provided? Yes [email or web address] Information not available 09/11/2022 On What Date Was Tobacco Cessation Counseling Provided? 04/10/2024 Information not available 04/10/2024 Do You Or Have You Ever Used Any Other Forms Of Tobacco Or Nicotine? Yes [email or web address] Information not available 11/24/2023 Sex: Male Functional Status None recorded. Mental Status None recorded. Family History Relationship Description Onset Age of this Age Resolved Age Notes LastModified by Organization Details LastModified Time Paternal Grandfather Hypertensive disorder [email or web address] Not available 2022 14:00:53 Paternal Grandmother Diabetes mellitus Not available 2022 14:01:01 Medical History Condition Response Coronary Artery Disease N Other N High Blood Pressure N Atrial Fibrillation N Thyroid Problems N Kidney or Bladder Problems N GI Problems N Depression N COPD N Blood Clots N Skin Problems N Eating Disorder N Anemia N Heart Attack (MT) N Anxiety Disorder N Diabetes N Muscle, Joint, or Bone Problems N Seizures/Epilepsy N Acid Reflux (GERD) N Cancer N Stroke N Asthma N Allergies N ADHD N Substance Abuse N High Cholesterol N Hepatitis N Liver Disease N Schizophrenia N Headaches N Heart Failure N Osteoporosis N Past Encounters Encounter ID Performer Location Encounter Start Date Encounter Closed Date Diagnosis/Indication Diagnosis SNOMED-CT Code Diagnosis ICD10 Code [id number] DAKOTAH FARIA [facility] [address] [place] [address] 09/11/2022 13:54:07 09/11/2022 14:47:51 Mixed anxiety and depressive disorder 795972010 F41.8 Essential hypertension 15816429 I10 Morbid obesity 316281083 E66.01 Nasal congestion 1793970 0 R09.81 [id number] DAKOTAH FARIA [facility] [address] [place] [address] 11/16/2022 12:19:06 11/16/2022 13:47:30 Morbid obesity 589997013 E66.01 Mixed anxi ety and depressive disorder 473788914 F41.8 Essential hypertension 96690216 I10 [id number] DAKOTAH FARIA [facility] [address] [place] [address] 04/19/2023 12:29:48 04/19/2023 13:22:39 Pharyngitis 895655968 J02.9 Productive cough-yellow sputum 919906064 R09.3 Bacterial upper respiratory infection 081786252 A49.9 Allergic rhinitis 370428 04 J30.9 [id number] Lynnette Ibanez CMA [facility] [address] [place] [address] 07/22/2023 12:01:00 07/28/2023 08:24:46 Dysuria 93521372 R30.0 [id number] DAKOTAH FARIA [facility] [address] [place] [address] 11/24/2023 13:50:33 11/24/2023 14:25:41 Essential hypertension 01970645 I10 Gastroesop hageal reflux disease without esophagitis 719119169 K21.9 Depression screening 171 765534 Z13.31 Obesity 016830351 E66.9 [id number] ADELITA CLAIRE [facility] [address] [place] [address] 12/14/2023 11:48:43 12/16/2023 11:31:01 Excessive belching 154277219 R14.2 Gastritis 7834882 K29.70 [id number] ADELITA CLAIRE [facility] [address] [place] [address] 04/10/2024 15:17:07 04/12/2024 09:52:11 Excessive belching 966388390 R14.2 Gastritis 8693133 K29.70 History of Helicobacter pylori infection 0692480170 1918658 Z86.19 Health Concerns Section Related Observation LastModified by Organization Detai ls LastModified Time None Recorded Concern Status LastModified by Organization Details LastModified Time None Recorded Advance Directives Directive None Recorded Payers Encounter Date Sequence Insurance Name Policy Number Policy Barrientos Covered Member ID Barrientos Member ID Guarantor Name 04/19/2023 1 [facility] ON OR AFTER 01/30/21 (MEDICAID REPLACEMENT - HMO) Erick Garcialivan [id number] Erick Garcialivan 07/22/2023 1 [facility] ON OR AFTER 21 (MEDICAID REPLACEMENT - HMO) Erick Garcialivan [id number] Erick Triana 11/24/2023 1 [facility] - [facility] ON OR AFTER 21 (MEDICAID REPLACEMENT - HMO) Erick Garcialivan [id number] Erick Garcialivan 12/14/2023 1 [facility] - [facility] ON OR AFTER 21 (MEDICAID REPLACEMENT - HMO) Erick Garcialivan [id number] Erick Garcialivan 04/10/2024 1 [facility] ON OR AFTER 01/30/21 (MEDICAID REPLACEMENT - HMO) Erick Garcialivan [id number] Erick Garcialivan Notes Date Note Type Note Provider Name and Address Organization Details Recorded Time 04/19/2023 text/html Pt presents with productive cough with yellow sputum, chest tightness, sore throat, and myalgias x2 days. Reports he had COVID 2 wks ago with cough, headache, and fatigue. States that his symptoms were improving last week. Pt went to [place] over the weekend and developed sx two days ago. Endorses that his throat is on fire when he wakes up in the morning and before he goes to bed. No sick contacts. He has been taking sudafed and ibuprofen w/o relief. Denies fevers, chills, chest pain, SOB, n/v/d, abd pain, ear pain, or headaches. DAKOTAH FARIA Attn: Accounting,[address] [place], [address], [place] [facility] 04/19/2023 15:34:59 11/24/2023 text/html Erick is a 23 y/ o M here for a ED f/u. He reports he had severe epigastric pain that started 5 days ago. He states he has a hx of excessive belching and heartburn x3 yrs, but has not had severe stomach pain before. Describes pain as sharp, stabbing in my upper stomach. He admits to eating spicy foods frequently. He went to the ER four days ago due to pain and was told he has gastritis. He was put on pantoprazole and reports the pain has been controlled. He admits to mild nausea, but denies SOB, chest pain, vomiting, diarrhea, constipation. DAKOTAH FARIA Attn: Accounting,[address] , [place], [address], [facility] 11/24/2023 19:50:51 12/14/2023 text/html Patient presents today c/o burning epigastric pain and acid reflux x 3 weeks. Patient states he thought it was just typical heartburn, but the pain lasted all weekend. He then went to the ER 11/20/2023 and was treated for indigestion with famotidine 20 mg BID. Pt. followed up with PCP who prescribed pantoprazole 40 mg QD. He's been taking consistently as directed in the morning x 2 weeks. Thinks it's helping some, but symptoms still persist. Also c/o excessive belching. Symptoms worse with eating, but also occur in the morning without having eaten. ADELITA CLAIRE [address], [place], [address], [facility] 12/14/2023 12:26:21 04/10/2024 text/html Patient presents today for follow up on H pylori infection. Was treated with triple therapy in December 2023. Symptoms have improved some, but still has a lot of belching. Rarely drinks alcohol or carbonated beverages. ADELITA CLAIRE [address], [place], [address], [facility] 04/10/2024 15:48:09
--- OUTSIDE RECORDS SUMMARY | 2024-08-06 19:02 | XMS_ITS | Encounter Summary ---
Author Organization [facility] Address [address] [place] [address] Care Team Providers Care Cut And Print Machine Operator Name Role Phone Godfrey Curry MD Primary Care Provider [phone] Dipika Reddy MD Unavailable [phone] Reason for Visit * Reason Comments Ear Pain Right ear pain x 1 w [place]. Patient states that it feels like there is water in my ear but I can't get it out . Reports green discharge and excessive wax buildup. Encounter Details Date Type Department Care Team (Late st Contact Info) Description 05/19/2018 3:41 PM CDT - 05/19/2018 4:28 PM CDT Emergency ER at [address] [address] Skin pustule; Middle ear effusion, right Discharge Disposition: Home or Self Care Social [...] Sign Reading Time Taken Comments Blood Pressure - - Pulse 90 05/19/2018 3:25 PM CDT Temperature 37.1 ??C (98.7 ??F) 05/19/2018 3:25 PM CD T Respiratory Rate 16 05/19/2018 3:25 PM CDT Oxygen Saturation - - Inhaled Oxygen Concentration - - Weight 125 kg (275 lb 9.2 oz) 05/19/2018 3:25 PM CDT Height 182.9 cm (6') 05/19/2018 3:25 PM CDT Body Mass Index 37.37 05/19/2018 3:25 PM CDT Body Mass Index Percentile 98.98% 05/19/2018 3:2 5 PM CDT Growth Chart: [facility] [place] (Boys, 2-2 0 Years) documented in this [...] this encounter Discharge Instructions * Discharge Instructions* Maureen Dobbs, DIRECTOR PRODUCT-SECURITY RESEARCHER - 05/19/2018 4:19 PM CDT Images from the original note were not included. Serous Otitis Media WHAT YOU NEED TO KNOW: Serous otitis media is fluid trapped behind your tympanic membrane (eardrum), without an ear infection. Your eardrum is in your middle ear. Serous otitis media is also called otitis media with effusion. You may have fluid in your ear for months, but it usually goes away on its own. The fluid may bein one or both ears. The fluid may cause muffled sounds, and you may feel like your ears are full. Serous otitis media may be caused by an upper respiratory infection or allergies. It is most common in the fall and early spring. DISCHARGE INSTRUCTIONS: Return to the emergency department if: ?? You have a fever. ?? You have a sudden loss of hearing in your affected ear. ?? You develop a severe headache and stiff neck. ?? You have a seizure. Contact your healthcare provider if: ?? You have fluid draining from your ear. ?? You have new symptoms. ?? You have questions or concerns about your condition or care. Follow up with your healthcare provider as directed: Your ears will need to be checked regularly. You may need to see a specialist. Write down your questions so you remember to ask them during your visits. ?? Copyright [employer] 2018 Information is for End User's use only and may not be sold, redistributed or otherwise used for commercial purposes. All illustrations and images included in CareNotes?? are the copyrighted property of [employer] or [employer] The above information is an inhalation therapy aides teacher only. It is not intended as medical [...] fluticasone propionate (FLONASE) 50 MCG/ACT nasal spray [place] 1 spray into each nostril once daily Collaborating Physician: Trevor Mak MD 1 bottles 05/19/2018 ibuprofen (MOTRIN) 200 MG tablet Take 400 mg by mouth every 6 hours as needed for Pain levocetirizine (XYZAL) 5 MG tablet Take 5 mg by mouth once daily tretinoin (RETIN-A) 0.05 % creamIndications:Acn e vulgaris Apply to affected area at bedtime 45 g 1 07/05/2017 amoxicillin-clavulan ate (AUGMENTIN) 875-125 MG tablet Take 1 tablet by mouth 2 times daily with morning and evening meal for 10 days 20 tablet 05/19/2018 05/29/2018 ciprofloxacin-dexame thasone (CIPRODEX) 0.3-0.1 % otic suspension Instill 4 drops into right ear 2 times daily for 7 days Shake well before using. 7.5 mL 05/19/2018 05/26/2018 documented as of this encounter ED Notes * Ann-Marie Camilo RN - 05/19/2018 4:28 PM CDT Reviewed discharge and follow-up instructions at bedside with parent. Educated parent about recommended dosing and administration of medications. Provided opportunity for questions and parent verbalized understanding of all instructions given. Patient alert and in NAD at time of discharge. Pt and family ambulated to exit, left ED without incident. * Maureen Dobbs APRN-CNP - 05/19/2018 4:13 PM CDT EMERGENCY DEPARTMENT 05/19/2018 Dear Doctor, We had the pleasure of caring for your patient, Erick Triana in our emergency department on 05/19/2018. A note from the provider(s) who cared for your patient is attached. Should you wish to access any laboratory results, please call . Should you wish to access any radiology results, please call , option 3. In addition, you can access patient information 24 hours a day, from any computer, through [employer], the online version of our electronic medical record. If you would like to use this service, please call Cherise Mejias, Connectivity Coordinator, at . We appreciate the opportunity to care for your patients. If you would like additional information, please call the emergency department directly at . Sincerely, MARY KATE Caban Division of Emergency Medicine [facility], [place] [facility] [place] I DESIGNATED EMERGENCY DEPARTMENT Provider contact with the patient: 05/19/2018 16:13 Erick Triana [id number] [facility] EMERGENCY DEPARTMENT History Chief Complaint Patient presents with ??? Ear Pain Right ear pain x 1 week. Patient states that it feels like there is water in my ear but I can't get it out . Reports green discharge and excessive wax buildup. HPI Comments: History was provided by the patient, mother. Erick Triana is an 17 y.o. male who presents with symptoms including: right ear pain Right ear pain and popping for the past week. Taking Ibuprofen as needed for pain. Feels like thereis water in his ear. Pops when he plugs his nose and blows. Cleaned his ear out with hydrogen peroxide and got multiple chunks of wax out. Recently noticed a pimple to outer ear the past few days. History of seasonal allergies. Takes allergy medication daily but no nasal spray. Denies fever or coldsymptoms. Eating and drinking well. History of elevated liver enzymes-followed by GI. Immunizations up to date. No sick contacts. No smoke exposure. No daily medications. No Known Allergies Past Medical History: Diagnosis Date ??? Acne [...] ??? Tonsillectomy ??? Tonsillectomy and Adenoidectomy 04/01/07 Medications Current Outpatient Prescriptions Medication Sig Dispense Refill ??? ibuprofen (MOTRIN) 200 MG tablet Take 400 mg by mouth every 6 hours as needed for Pain ??? ciprofloxacin-dexamethasone (CIPRODEX) 0.3-0.1 % otic suspension Instill 4 drops into right ear2 times daily for 7 days Shake well before using. 7.5 mL 0 ??? fluticasone propionate (FLONASE) 50 MCG/ACT nasal spray [place] 1 spray into each nostril once daily Collaborating Physician: Trevor Mak MD 1 bottles 0 ??? amoxicillin-clavulanate (AUGMENTIN) 875-125 MG tablet Take 1 tablet by mouth 2 times daily withmorning and evening meal for 10 days 20 tablet 0 ??? levocetirizine (XYZAL) 5 MG tablet Take 5 mg by mouth once daily ??? tretinoin (RETIN-A) 0.05 % cream Apply to affected area at bedtime 45 g 1 ??? benzoyl peroxide (BENZOYL PEROXIDE) 5 % wash Apply to affected area once daily 1 bottles 0 Review of Systems Review of Systems Constitutional: Negative for activity change, appetite change and fever. HENT: Positive for ear discharge and ear pain. Negative for congestion and rhinorrhea. Respiratory: Negative for cough. Gastrointestinal: Negative for constipation, diarrhea and vomiting. Genitourinary: Negative for decreased urine volume. Skin: Negative for rash. All relevant systems reviewed. Pulse 90 Temp 98.7 ??F (37.1 ??C) Resp 16 Ht 182.9 cm (72 ) Wt 125 kg (275 lb 9.2 oz) BMI37.37 kg/m2 Physical Exam Physical Exam Constitutional: He is oriented to person, place, and time. He appears well- developed and well-nourished. No distress. HENT: Head: Normocephalic and atraumatic. Left Ear: External ear normal. Nose: Nose normal. Mouth/Throat: Oropharynx is clear and moist. No oropharyngeal exudate. Effusion noted to right inner ear Small pustule noted to right outer ear canal with mild surrounding canal swelling. No active drainage. Eyes: Conjunctivae and EOM are normal. Pupils are equal, round, and reactive to light. Right eye exhibits no discharge. Left eye exhibits no discharge. No scleral icterus. Neck: Normal range of motion. Neck supple. No JVD present. No tracheal deviation present. No thyromegaly present. Cardiovascular: Normal rate, regular rhythm, normal heart sounds and intact distal pulses. Pulmonary/Chest: Effort normal and breath sounds normal. No stridor. No respiratory distress. He has no wheezes. He has no rales. He exhibits no tenderness. Abdominal: Soft. Bowel sounds are normal. He exhibits no distension and no mass. There is no tenderness. There is no rebound and no guarding. No hernia. Musculoskeletal: Normal range of motion. Lymphadenopathy: He has no cervical adenopathy. Neurological: He is alert and oriented to person, place, and time. Skin: Skin is warm and dry. He is not diaphoretic. Psychiatric: He has a normal mood and affect. His behavior is normal. Nursing note and vitals reviewed. Procedures Procedures ECG Interpretation ECG Interpretation Lab/SPO2 Interpretation Progress Notes No evidence of distress or dehydration. Mother verbalizes understanding of discharge plan. Patient discharged home, alert, active, and well-appearing. ED Course Orders Placed This Encounter ??? ciprofloxacin-dexamethasone (CIPRODEX) 0.3-0.1 % otic suspension Sig: Instill 4 drops into right ear 2 times daily for 7 days Shake well before using. Dispense: 7.5 mL Refill: 0 Collaborating Physician: Trevor Mak MD ??? fluticasone propionate (FLONASE) 50 MCG/ACT nasal spray Sig: [place] 1 spray into each nostril once daily Collaborating Physician: Trevor Mak MD Dispense: 1 bottles Refill: 0 Collaborating Physician: Trevor Mak MD ??? amoxicillin-clavulanate (AUGMENTIN) 875-125 MG tablet Sig: Take 1 tablet by mouth 2 times daily with morning and evening meal for 10 days Dispense: 20 tablet Refill: 0 Collaborating Physician: Trevor Mak MD Plan: Use ear drops as prescribed. Take antibiotic as prescribed. Take Flonase night in addition to daily oral allergy medication. Follow-up with Primary Care Physician as needed. Medical Decision Making I have reviewed the: Nursing Notes, Vitals. I have discussed the case with Family/Caregiver. Clinical Impression Final diagnoses: Skin pustule - to right outer ear Middle ear effusion, right documented in this encounter Plan of Treatment Not on file documented as of this encounter Visit Diagnoses Diagnosis Skin pustule Unspecified local infection of skin and subcutaneous tissue Middle ear effusion, right documented in this encounter Care Teams Cut And Print Machine Operator Relationship Specialty Start Date End Date Godfrey Curry MD [address] [place] [phone] PCP - General Pediatrics 05/01/14 Dipika Reddy MD [address] [place] [phone] Resident Student Resident 11/27/15 documented as of this encounter
--- OUTSIDE RECORDS SUMMARY | 2024-08-06 19:02 | XMS_ITS | Encounter Summary ---
Author Organization [facility] Address [address] [facility] [place] [address] Care Team Providers Care Florist Name Role Phone Godfrey Curry MD Primary Care Provider Dipika Reddy MD Unavailable [phone] Reason for Visit * Reason Onset Date Comments Update 01/17/2018 Encounter Details Date Type Department Care Team (Late st Contact Info) Description 01/17/2018 Telephone [facility] Pediatrics - [address] [address] Jose Rafael Thompson MD [address] [place] [id number] Update Social History Tobacco Use Types Packs/Day Years [...] Telephone Encounter - Fatmata Henriquez RN - 01/17/2018 4:21 PM CDT Spoke to mom and reviewed Dr. Ackerman's message. Mom verbalizes understanding. * Telephone Encounter - Reid Ackerman MD - 01/17/2018 12:57 PM CDT I dont think there is any need of checking liver enzymes at this time since we are evaluating with liver biopsy and last labs were high. It would be worth to check in next 4-6 weeks. * Telephone Encounter - Fatmata Henriquez RN - 01/17/2018 12:35 PM CDT Mom calling, wants to see if they can have the liver enzymes checked today or tomorrow, before the biopsy on . Will forward to Dr. Ackerman to review as Dr. Thompson is out of the office. documented in this encounter Plan of Treatment Not on file documented as of this encounter Visit Diagnoses Not on filedocumented in this encounter Care Teams Florist Relationship Specialty Start Date End Date Labarge, Godfrey Zapata MD [facility] [place] [phone] PCP - General Pediatrics 05/01/14 Dipika Reddy MD [address] [place] [phone] Resident Student Resident 11/27/15 documented as of this encounter
--- OUTSIDE RECORDS SUMMARY | 2024-08-06 19:03 | XMS_ITS | Encounter Summary ---
Author Organization [facility] Address [address] [facility] [place] [address] Care Team Providers Care Returned Goods Repairer Name Role Phone Godfrey Curry MD Primary Care Provider Dipika Reddy MD Unavailable Reason for Visit * Reason Onset Date Comments Results 11/24/2017 Encounter Details Date Type Department Care Team (Late st Contact Info) Description 11/24/2017 Telephone [facility] Pediatrics - [address] [address] Jose Rafael Thompson MD [address] [place] [id number] Results Social History Tobacco Use Types Packs/Day [...] encounter Miscellaneous Notes * Telephone Encounter - Latricia Leger RN - 11/26/2017 10:12 AM CDT Spoke with mom. Biopsy is scheduled already. * Telephone Encounter - Jose Rafael Thompson MD - 11/26/2017 9:46 AM CDT Transaminases remain high. Please plan a liver biopsy as discussed at the clinic visit. Please keep us informed of progress. * Telephone Encounter - Fatmata Henriquez RN - 11/24/2017 11:35 AM CDT Will forward to Dr. Thompson to review. * Telephone Encounter - Alysia Hopkins - 11/24/2017 10:37 AM CDT Mom calling for lab results. documented in this encounter Plan of Treatment Not on file documented as of this encounter Visit Diagnoses Not on filedocumented in this encounter Care Teams Returned Goods Repairer Relationship Specialty Start Date End Date Labarge, Godfrey Zapata MD [address] [place] [phone] PCP - General Pediatrics 05/01/14 Dipika Reddy MD [address] [place] [phone] Resident Student Resident 11/27/15 documented as of this encounter
--- OUTSIDE RECORDS SUMMARY | 2024-08-06 19:03 | XMS_ITS | Encounter Summary ---
Author Organization [facility] Address [address] [place] [address] Care Team Providers Care Piercing Artist Name Role Phone Godfrey Curry MD Primary Care Provider [phone] Dipika Reddy MD Unavailable [phone] Reason for Referral * Evaluate & Treat (Routine) - Closed Specialty Diagnoses / Procedures Referred By Contact Referred To Contact Pediatric Gastroenterology Diagnoses Transaminitis Rani Solitario MD [address] [place] [address] [place] [address] [place] [id number] Referral ID Status Reason Start Date Expiration Date V isits Requested Visits Authorized [id number] Closed Specialty Services Required 10/06/2017 04/04/2018 1 1 Scheduling Instructions If you have not been contacted by an [facility] General Manager within 48 hours, please call [phone] to schedule an appointment. ANALYST REPORT WRITER Reason for Visit * Reason Onset Date Comments Coordination Of Care 10/04/2017 Encounter Details Date Type Department Care Team (Late st Contact Info) Description 10/04/2017 Telephone [facility] Pediatrics - Dermatology [address] [facility] [place] [address] Rani Solitario MD [address] [facility] [address] [place] [address] Coordination Of Care Social History Tobacco Use Types Packs/Day [...] encounter Miscellaneous Notes * Telephone Encounter - Mary Ellen Cornell RN - 10/04/2017 4:49 PM CST 10/04/17 Mom LM this afternoon; calling for lab results. Spoke with mom; reviewed results, significant for elevated liver enzymes; ALT 175, AST 66. Mom denies pt with recent illness, c/o abd pain, N/V/D, jaundice, ETOH use. Denies pt/family h/o liver issues. Mom does recall h/o significant abd pain 1-2 yrs ago, but cause unknown, issue resolved without treatment. Chart previous labs with elevated liver enzymes 11/02/13; ALT 348, AST 164. Mom does not recall. Mom aware, will need to discuss results with provider and return call tomorrow. 10/05/17 D/w Dr. Solitario; recommends add'l lab eval (hepatic panel, acute hepatitis panel, lipid panel, HgA1C in 2 weeks), refer to Dr. Jay CORTES; hold start of isotretinoin. 10/06/17 LM for mom requesting return call. No future appointments. Mom calls back; relayed provider recs. Pt lives in [place], [place] with alana, but mom will identify local lab and call back with details. Provided contact # to schedule GI appt (referral ordered). 10/13/17 Mom LM this morning; returning call with name of lab. Spoke with mom; now inquires if pt can defer lab draw until GI appt and have labs drawn fasting prior to appt. If provider prefers sooner, would like to have drawn at [facility] in [place], [place] ([phone]). D/w Dr. Solitario; ok to hold lab draw until day of GI appt. Contacted mom; requesting to call back after her doctor's appt. 10/15/17 Mom calls; would like to have labs drawn tomorrow at [facility] in [place], [place] ([phone]). Lab orders entered and faxed. 10/20/17 Faxed lab results reviewed by Dr. Solitario; Hepatic Panel remarkable for elevated ALT (184) and AST (71); Lipid Panel with low cholesterol <50), low Trg (18) and low HDL (38); Hgb A1C 4.8; Acute Hepatitis Panel negative; rec hold start of isotretinoin pending GI eval, ok to resume topical acne medications. Spoke with mom; reviewed results and above. Scheduled Derm f/u appt. Lab results faxed to GI officefor upcoming appt. Future Appointments Date Time Provider Department Center 11/12/2017 9:15 AM Jose Rafael Thompson MD [facility] 12/17/2017 2:30 PM Elena Eugene, [facility] documented in this encounter Plan of Treatment Scheduled Referrals Name Type Priority Associated Diagnoses Order Schedule Amb Pediatric Referral To GI @ [facility] ([facility]) Outpatient Referral Routine Transaminitis 1 Occurrences starting 10/06/2017 until 10/06/2018 documented as of this encounter Visit Diagnoses Diagnosis Transaminitis- Primary Nonspecific elevation of levels of transaminase or lactic acid dehydrogenase (LDH) documented in this encounter Care Teams Piercing Artist Relationship Specialty Start Date End Date Labarge, Godfrey Zapata MD [facility] [place] [phone] PCP - General Pediatrics 05/01/14 Dipika Reddy MD [facility] [place] [address] Resident Student Resident 11/27/15 documented as of this encounter
--- OUTSIDE RECORDS SUMMARY | 2024-08-06 19:03 | XMS_ITS | Encounter Summary ---
Author Organization [facility] Address [address] [facility] [place] [address] Care Team Providers Care Chief Of Field Operations Name Role Phone Marisol Roblero MD Primary Care Provider Encounter Details Date Type Department Care Team (Latest Contact Info) Description 11/13/2010 1:36 PM CDT - 11/13/2010 11:59 PM CDT Hospital Encounter [facility] Pediatrics - Pulmonology [address] [place] [address] Daija Lewis MD [address] [facility] [place] [address] Pulmonary Discharge Disposition: Home or Self Care Social History Tobacco Use Types Packs/Day Years Used Date Smoking Tobacco: Never Assessed Sex and Gender Information Value Date Recorded Sex Assigned at Not on file Gender Identity Not on file Sexual Orientation Not on file documented as of this encounter Medications at Time of Discharge Medication Sig Dispensed Refills Start Date End Date cetirizine (ZYRTEC) 10 MG tablet Take 10 mg by mouth daily. 01/27/2011 ferrous sulfate 325 (65 FE) MG tabletIndications:Restle ss legs syndrome (RLS) Take 1 Tab by mouth 2 times daily. Take with vitamin C such as OJ. Avoid milk in the same 30 minutes. miralax for tummy troubles. 62 Tab 2 11/21/2010 01/27/2011 mometasone (NASONEX) 50 MCG/ACT nasal spray [place] 1 [place] into each nostril 2 times daily. 12/11/2010 documented as of this encounter Plan of Treatment Not on file documented as of this encounter Visit Diagnoses Not on filedocumented in this encounter Care Teams Chief Of Field Operations Relationship Specialty Start Date End Date Marisol Roblero MD [address] [place] [phone] PCP - General 11/13/10 04/30/11 documented as of this encounter
--- OUTSIDE RECORDS SUMMARY | 2024-08-06 19:03 | XMS_ITS | Encounter Summary ---
Author Organization [facility] Address [address] [place] [address] Care Team Providers Care Director Translational Name Role Phone Godfrey Curry MD Primary Care Provider [phone] Dipika Reddy MD Unavailable Reason for Visit * Reason Onset Date Comments MEDICATION REFILL 05/14/2017 Encounter Details Date Type Department Care Team (Late st Contact Info) Description 05/14/2017 Telephone [facility] Pediatrics - Dermatology [facility] [place] [address] Elena Eugene PAJeremyC [address] [place] [address] MEDICATION REFILL Social History Tobacco Use Types Packs/Day Years Used Date Smoking Tobacco: Never Alcohol Use Standard Drinks/Week Comments No 0 (1 standard drink = 0.6 oz pur e alcohol) Sex and Gender Information Value Date Recorded Sex Assigned at Not on file Gender Identity Not on file Sexual Orientation Not on file documented as of this encounter Miscellaneous Notes * Telephone Encounter - Mary Ellen Cornell RN - 05/14/2017 10:02 AM CDT Mom LM yesterday afternoon to inquire how to obtain refills for pt's oral and topical medications. LV 10/14/16; Rx tretinoin, BP, clinda, doxy w/recs to RTC in 3 months. No interval f/u. RFs denied 03/23/17 d/t overdue for f/u. Spoke with mom; discussed need for f/u appt. Providers likely to refill topical meds with f/u, but not doxy. Mom informs she will need to call back when she has pt's school schedule available. RFs pending. documented in this encounter Plan of Treatment Not on file documented as of this encounter Visit Diagnoses Not on filedocumented in this encounter Care Teams Director Translational Relationship Specialty Start Date End Date Godfrey Curry MD [facility] [place] [phone] PCP - General Pediatrics 05/01/14 Dipika Reddy MD [address] [place] [phone] Resident Student Resident 11/27/15 documented as of this encounter
--- OUTSIDE RECORDS SUMMARY | 2024-08-06 19:03 | XMS_ITS | Encounter Summary ---
Author Organization [facility] Address [address] [place] [address] Care Team Providers Care Slitter Cut Off Operator Name Role Phone Kendal Hernandez MD Primary Care Provider [phone] Encounter Details Date Type Department Care Team (Late st Contact Info) Description 09/22/2010 7:15 PM HOTEL DIRECTOR - 09/22/2010 11:59 PM [facility] Hospital Encounter [facility] Pediatrics - Sleep Services [address] [place] [address] Marisol Roblero MD [address] [place] [phone] Sleep Lab Discharge Disposition: Home or Self Care Social [...] Take 10 mg by mouth daily. 01/27/2011 mometasone (NASONEX) 50 MCG/ACT nasal spray [place] 1 [place] into each nostril 2 times daily. 12/11/2010 documented as of this encounter Miscellaneous Notes * Miscellaneous Scans - Document, Scanned - 11/15/2010 7:36 AM CDT * Miscellaneous Scans - Document, Scanned - 11/11/2010 8:33 AM CDT * Miscellaneous Scans - Document, Scanned - 10/13/2010 9:58 AM CDT * Miscellaneous Scans - Document, Scanned - 10/13/2010 9:58 AM CDT * Miscellaneous Scans - Document, Scanned - 10/13/2010 9:58 AM CDT documented in this encounter Plan of Treatment Not on file documented as of this encounter Visit Diagnoses Not on filedocumented in this encounter Care Teams Slitter Cut Off Operator Relationship Specialty Start Date End Date Kendal Hernandez MD [address] [facility] [address] [place] [address] PCP - General 08/21/10 11/12/10 documented as of this encounter
--- OUTSIDE RECORDS SUMMARY | 2024-08-06 19:03 | XMS_ITS | Encounter Summary ---
Author Organization [facility] Address [address] [place] [address] Care Team Providers Care Bar Staff Name Role Phone Marisol Roblero MD Primary Care Provider [phone] Reason for Visit * Reason Comments Follow-up breathing Encounter Details Date Type Department Care Team (Latest Contact Info) Description 04/02/2011 2:35 PM CDT - 04/02/2011 11:59 PM CDT Hospital Encounter [facility] Pediatrics - ENT [address] [facility] [place] [address] Anshu Paredes MD [address] [facility] [address] [place] [address] Discharge Disposition: Home or Self Care Social [...] Taken Comments Blood Pressure - - Pulse - - Temperature - - Respiratory Rate - - Oxygen Saturation - - Inhaled Oxygen Concentration - - Weight 69 kg (152 lb 3.2 oz) 04/02/2011 2:41 PM CDT Height 151 cm (4' 11.45 ) 04/02/2011 2:41 PM CDT Body Mass Index 30.28 04/02/2011 2:41 PM CDT Body Mass Index Percentile 99.35% 04/02/2011 2:4 1 PM CDT Growth Chart: [facility] (Boys, 2-2 0 Years) documented in this encounter Medications at Time of Discharge Medication Sig Dispensed Refills Start Date End Date ferrous sulfate 300 (60 FE) MG tablet Take 300 mg by mouth once daily. 05/05/2011 documented as of this encounter Progress Notes * Anshu Paredes MD - 04/02/2011 2:50 PM CDT Chief Complaint: 10 y.o. 8 m.o. male is having difficulty with nasal sneezing and rhinohrea. Pt hasnot seen the counter caser yet Has tolerated nasal spray well ROS: Erick's speech is age appropriate, and there have been no cardiopulmonary problems. He has been breathing and feeding without difficulty. Exam: Breathing comfortably, without stertor or stridor. Ear exam: patent ear canals bilaterally Nasal exam: no nasal lesions, no erythema, septum straight some clear drainage Oral exam: no lesion Assessment & Plan: get allergy eval RTC in 2 months documented in this encounter Plan of Treatment Not on file documented as of this encounter Visit Diagnoses Not on filedocumented in this encounter Care Teams Bar Staff Relationship Specialty Start Date End Date Marisol Roblero MD [address] [place] [id number] PCP - General 11/13/10 04/30/11 documented as of this encounter
--- OUTSIDE RECORDS SUMMARY | 2024-08-06 19:03 | XMS_ITS | Encounter Summary ---
Author Organization [facility] Address [address] [place] [address] Care Team Providers Care Wire Coating Operator Metal Name Role Phone Marisol Roblero MD Primary Care Provider [phone] Reason for Visit * Reason Comments Cold Symptoms allergies Encounter Details Date Type Department Care Team (Latest Contact Info) Description 12/11/2010 1:00 PM CDT - 12/11/2010 11:59 PM CDT Hospital Encounter [facility] Pediatrics - ENT [address] [place] [address] Discharge Disposition: Home or Self Care Social [...] - Inhaled Oxygen Concentration - - Weight 66.8 kg (147 lb 4.3 oz) 12/11/2010 1:04 P M CDT Height 151 cm (4' 11.45 ) 12/11/2010 1:04 PM CDT Body Mass Index 29.3 12/11/2010 1:04 PM CDT Body Mass Index Percentile 99.21% 12/11/2010 1:0 4 PM CDT Growth Chart: CDC (Boys, 2-2 0 Years) documented in this encounter Discharge Instructions * Patient Instructions* Maddi Clarke, RN - 12/11/2010 1:23 PM CDT Your child has been scheduled for Same Day Surgery (Outpatient Surgery) A natural parent or a court appointed legal guardian MUST accompany the child DATE, TIME, & LOCATION If you know that you will not be able to keep your scheduled surgery date, please call: Wednesday - Wednesday, 9:00am - 4:00pm (or leave a voicemail message anytime 24hr a day/7-days a week) The surgery is: Adenoidectomy By Dr. Paredes on: January 16. TIME OF ARRIVAL: Same Day Surgery will call you 3-4 days before your child's surgery date with the exact time of arrival. If you have not heard from them by 3 days before your surgery date, please call the location below where your child's surgery will take place. [facility] ( DO NOT CANCEL SURGERY WITHOUT NOTIFYING US AT [phone] ) You must notify our office within 48 hours of any changes regarding your insurance or any additional insurance you may have to prevent cancellation of the surgery Insurance changes on the day of or the day before surgery will result in cancel/rescheduling of thesurgery SURGERY INSTRUCTIONS: He cannot have any solid food, milk, or orange juice after midnight before surgery (8 hours prior to the procedure). Clear liquids (water, Pedialyte, apple juice, 7-up, Sprite, Daniel-Aid, Jello, or popsicles) may be administered up to 3 hours prior to the time of arrival at the hospital. All infants 0-6 months may be fed milk 6 hours prior to the procedure. Sugar water or Pedialyte maybe administered up to 3 hours prior to the scheduled time of the procedure. If your child is on medications other than what we have prescribed or you are unsure as to whether a specific medication should be stopped, please call the ENT Nurse at or the prescribing doctor for instructions. In order for your child to take any medicines after midnight, the nightbefore surgery, you must call for instructions. Most medications can be given if needed with a small amount of water, but this must be cleared with the surgeon. Do not give aspirin, motrin/ibuprofen 10 days prior to surgery. Tylenol is OK If your child has been exposed to anyone with chicken pox, measles, or mumps within the last three weeks, OR if your child has a fever greater than 101 degrees or a cold or flu, surgery may be canceled - call for instructions. --The surgery will take place approximately 1 ?? - 2 hours after you arrive (the exact time cannot be predicted). --Your child will be ready to go home a few hours after surgery. Please be prepared to spend a goodpart of the day at the hospital. --No brothers or sisters are permitted, as waiting area space is limited. Patient provided with handouts including Adenoidectomy. Adenoidectomy Introduction Your child is going to have an adenoidectomy. This surgery helps relieve breathing obstruction and frequent infections. Post-Op Instructions for Adenoidectomy Activity Avoid strenuous activity (running, riding bicycle, rollerblading, etc.) for 5-7 days. Your child may return to school in 1-2 days, however, no gym or vigorous activity for 2 weeks after surgery. Diet It is important for your child to maintain his/her fluid intake. Provide him/her with any liquids he/she prefers. Then add foods to the diet as tolerated. Medications Tylenol (acetaminophen) may be taken every 4-6 hours for pain. REMEMBER: It is very important to NOT take aspirin or Motrin. Also, your child may be given a prescription for an antibiotic; if so, follow the instructions as directed. Wound Care Avoid nose blowing for 10 days. If nose is congested or draining mucus, gently use a saline nasal spray (such as [place]) up to 4 times a day as needed. Bleeding Blood tinged mucus is normal for 5-7 days after surgery; any increase in bleeding should be reported to the physician. Follow-up Care Return to clinic as needed. For questions or Emergency Care: Call the office at during the week or after 5 pm and on the weekends. You may need to speak with the [id number]. documented in this encounter Medications at Time [...] tummy troubles. 62 Tab 2 11/21/2010 01/27/2011 documented as of this encounter Progress Notes * Anshu Paredes MD - 12/11/2010 1:36 PM CDT Chief Complaint: 10 y.o. 4 m.o. male is having difficulty with breathing though nose has been on nasal spray and antihistamine with no improvement sleep study shows index of 1.5 hx ot t&a remote. ROS: Erick's speech is age appropriate, and there have been no cardiopulmonary problems. He has been breathing and feeding without difficulty. Exam: Breathing comfortably, without stertor or stridor. Ear exam: patent ear canals bilaterally Nasal exam: no nasal lesions, no erythema Oral exam: no oral lesions; tonsil surgically gone Throat exam: Procedure: nasal endoscopy Indication: nasal obstruction Note: Verbal consent for the procedure was obtained. Patient was anesthetized topically, and the flexible scope was passed through the nares. Findings: 60 % obstruction Assessment & Plan: recurrent adeniod hypertrophy with nasal symptoms and sleep problems, revision adenoidectomy documented in this encounter Plan of Treatment Not on file documented as of this encounter Visit Diagnoses Not on filedocumented in this encounter Care Teams Wire Coating Operator Metal Relationship Specialty Start Date End Date Marisol Roblero MD [address] [place] [phone] PCP - General 11/13/10 04/30/11 documented as of this encounter
--- OUTSIDE RECORDS SUMMARY | 2024-08-06 19:03 | XMS_ITS | Encounter Summary ---
Author Organization [facility] Address [address] [place] [address] Care Team Providers Care Cathead Worker Name Role Phone Godfrey Curry MD Primary Care Provider Dipika Reddy MD Unavailable [phone] Reason for Visit * Reason Comments Acne acne unchanged with intermittent flares, doxycycline 100 mg bid, BP wash 5% qd, Tretinoin q hs. Rash rash to left forearm resolved, rx TAC 0.1% cream qd, rash resolved. Encounter Details Date Type Department Care Team (Latest Contact Info) Description 10/01/2017 3:11 PM WEIGHING STATION OPERATOR - 10/01/2017 4:45 PM [facility] Hospital Encounter [facility] Pediatrics - Dermatology [address] [place] [address]. [place] [address] Elena Eugene PA-C [address] [place] [id number] Discharge Disposition: Home or Self Care Social [...] - Inhaled Oxygen Concentration - - Weight 123.9 kg (273 lb 2.4 oz) 10/01/2017 3:22 PM WEIGHING STATION OPERATOR Height 178.3 cm (5' 10.2 ) 10/01/2017 3:22 PM CS T Body Mass Index 38.97 10/01/2017 3:22 PM WEIGHING STATION OPERATOR Body Mass Index Percentile 99.45% 10/01/2017 3:2 2 PM WEIGHING STATION OPERATOR Growth Chart: [facility] (Boys, 2-2 0 Years) documented in this encounter Discharge Instructions * Patient Instructions* Valdo Pope - 10/01/2017 4:08 PM WEIGHING STATION OPERATOR Erick's acne involves his face is marginally controlled using doxycycline, tretinoin, and benzoyl peroxide wash as prescribed. His acne includes cysts with evidence of early scarring. He is a candidate for isotretinoin. Erick's starting dose of isotretinoin will be 30mg/day. His goal daily dose is 80mg based on his ideal body weight of 80mg, and cumulative dose at 150mg/kg= 12,000 mg. Return in 31+ days Go to the lab at your earliest convenience to get your fasting labs done. Call [phone] option 3, Wednesday-Wednesday between 9 AM and 5 PM in or Wednesday to review lab results. If labs are OK, plan to start taking 30 mg/day (taken with food to maximize absorbtion). iPLEDGE Instructions Participation in the iPLEDGE Program requires monthly counseling, and attending follow-up appointments. Fill your prescriptions at least every 50 days to prevent disqualification from the program. Patients taking isotretinoin must come to the office every month and get a blood test every month until the course has been completed. If you fail to come for your visit or get your blood test, you may not be able to get a prescription refill. Being off the medicine for a period of time will not affect the treatment???s effectiveness, but will prolong the course. Do not share your pills. Do not donate blood while taking isotretinon. Skin care recommendations Facial lotions: CeraVe PM, Aveeno, Cetaphil, Oil of Olay, Vanicream Arms for pink bumps (keratosis pilaris): CeraVe SA and AmLactin Acanthosis Nigricans Acanthosis nigricans (bs-as-[id number]-sis [id number]-[id number]) is a skin condition that features dark, thick,velvety changes most often the armpits, groin, neck and elbows. Acanthosis nigricans can begin at any age. It is more common in people who have dark skin. The skin changes develop slowly, usually over several years. The skin changes do not typically hurt or itch. Acanthosis nigricans can be associated with other health problems, most often an inherited tendencyto be overweight, have increased blood levels of insulin, irregular menstrual periods, type 2 diabetes, high blood pressure and an increased risk of heart attacks. Children who are overweight and have acanthosis nigricans have a very high risk for developing these problems as adults. Certain medications -- such as control pills, and large doses of niacin -- can increase the risk. Other hormone problems, such as low thyroid, or tumors rarely play a role. No treatment has been proven to remove the acanthosis nigricans. However, treating underlying conditions may cause the skin changes to fade, such as: Losing excess pounds if you're overweight Making dietary changes, such as cutting back on starches and sugars Monitoring blood pressure It is often easier to begin to make these lifestyle changes in childhood, and especially important for children and teenagers with acanthosis nigricans. ([facility] program WEIGH OF LIFE! canhelp. See information below and call [phone] or for more information.) If you are concerned about the appearance of your skin, there are treatments that may help fade thediscoloration modified vitamin A prescription creams (tretinoin such as Retin-A, or similar products) non-prescription creams containing urea, salicylic acid, lactic acid or glycolic acid Fish oil supplements Very severe acanthosis nigricans can have a bad odor. Using antibacterial soaps or taking bleach baths can help. WEIGH OF LIFE! Learn healthy eating and exercise habits that will last a lifetime! This is a dynamic behavior-change program offered for overweight or obese children, and at least one parent, who are motivated to make behavioral, nutrition and lifestyle changes. The program includes: 9 weekly lessons which include behavioral skills, physical activity, and food preparation demonstrations. Focus on managing behavior, emotions and self-esteem for weight control. Group setting for 8-12 years old children and their parents. Time and Location: Wednesdays, 4:30-6:30 pm, beginning September 23, 2016. At [facility], [facility]. COST: Free Contact: Call [phone] or for more information. HING STATION OPERATOR documented in this encounter Medications at Time [...] 12 hours 60 capsule 2 07/05/2017 05/19/2018 triamcinolone acetonide (KENALOG) 0.1 % cream APPLY TO THE AFFECTED AREA OF THE ARMS EVERY DAY 0 07/05/2017 11/12/2017 documented as of this encounter Progress Notes * Rani Solitario MD - 10/01/2017 5:33 PM CST Pediatric Dermatology Clinic Visit Progress Note I had the pleasure of seeing your patient, Erick Triana in the Pediatric Dermatology Clinic at [facility]. Chief Complaint Patient presents with ??? Acne acne unchanged with intermittent flares, doxycycline 100 mg bid, BP wash 5% qd, Tretinoin q hs. ??? Rash rash to left forearm resolved, rx TAC 0.1% cream qd, rash resolved. History of Present Illness This is a follow up evalution for Erick Triana. He came to today's visit with his mother, and hissister age 7. Erick is a 17 y.o. male with a h/o acne. He presents for his 5th visit, a 3 month follow-up. Patient records reviewed: [facility] Adherence: Perfect Response to treatment: Minimal Global assessment: Moderate Interval History Onset: Over 3 month ago Course: Fluctuating Severity: Mild Associated symptoms: None Sleep quality: Generally restful sleep Additional HPI Documentation: Erick notes that his acne has improved minimally since his last visit. He is taking doxycycline 100mg BID, BPO wash daily, and tretinoin 30gm/mo. The treatments reduce his acne and today is a good day, but he generally gets bad flares on the face. Interested in more aggressive treatment. Previouslyhesitant to take isotretinoin because of his grandmother's concern for while on the medication. No personal or FH of depression or IBD. Weight: 124kg ([place] body weight: 80kg) Patient Skin Care Regimen Showers: Daily Uses Bath & Body Wash: Daily Uses Bath & Body Lotion qd : Daily Derm Medications Tretinoin: - Patient Supply Remainin g - Calculated Patient Usage: 15.34 g/mo Medications Current Outpatient Prescriptions Medication ??? triamcinolone acetonide (KENALOG) 0.1 % cream ??? levocetirizine (XYZAL) 5 MG tablet ??? doxycycline hyclate (VIBRAMYCIN) 100 MG capsule ??? tretinoin (RETIN-A) 0.05 % cream ??? benzoyl peroxide (BENZOYL PEROXIDE) 5 % wash No current facility-administered medications for this encounter. Allergies No Known Allergies Review of Systems Constitutional: No fever and normal growth. Eyes: No itching in eyes. ENT: No rhinorrhea and no congestion. Cardiovascular: No chest pain. Respiratory: No cough present. Gastrointestinal: No abdominal pain. Genitourinary: No perineal pain. Allergy / Immunology: No seasonal allergies present. Musculoskeletal: No joint pain. Neurologic: No headaches. Dermatologic: Acne. Physical Exam Ht 1.783 m (5' 10.2 ) Wt 123.9 kg (273 lb 2.4 oz) BMI 38.97 kg/m2 65 %ile (Z= 0.39) based on CDC 2-20 Years [id number]-gmo-nll data using vitals from 10/01/2017. Wt Readings from Last 3 Encounters: 10/01/17 123.9 kg (273 lb 2.4 oz) (>99 %, Z= 2.88)* 07/05/17 118.8 kg (261 lb 14.5 oz) (>99 %, Z= 2.78)* 10/14/16 120.9 kg (266 lb 8.6 oz) (>99 %, Z= 3.00)* * Growth percentiles are based on [facility] 2-20 Years data. Ht Readings from Last 3 Encounters: 10/01/17 1.783 m (5' 10.2 ) (65 %, Z= 0.39)* 07/05/17 1.777 m (5' 9.96 ) (63 %, Z= 0.34)* 10/14/16 1.807 m (5' 11.14 ) (82 %, Z= 0.91)* * Growth percentiles are based on [facility] 2-20 Years data. Body mass index is 38.97 kg/(m^2). General: Healthy and alert. Easy to examine Skin Appearance: Type II skin; well hydrated The following pertinent positives and negatives were noted: Involved sites: Waist up skin exam was conducted to include the scalp, face, lips/teeth, lids/conjunctiva, ears, neck, chest, abdomen, back, right and left hands and forearms, and was normal with the following exceptions: Up to 5mm papules and pustules with violaceous change. Distribution: densely scattered Affected areas: face M/S: normal throughout upper and lower extremities Psych: calm affect Relevant sites of sparing: Scalp, palms and soles Hair: Normal Fingernails: Normal Toenails: Normal Lymphadenopathy: No significant lymphadenopathy Assessment & Plan Problem Acne Onset age 12-13; moderate, inflammatory and comedonal; [...] - plan to start 30mg/d (goal 80mg/day) Obesity with acanthosis nigricans Keratosis Pilaris Upper>lower arms; face; complicated by folliculitis 01/22/16 LE skin Cx neg Strep, neg Staph 10/14/16 unchanged 10/01/17 prominent Orders Placed This Encounter ??? CBC W AUTO DIFFERENTIAL Standing Status: Standing Number of Occurrences: 6 Standing Expiration Date: 10/01/2018 ??? COMPREHENSIVE METABOLIC PANEL Standing Status: Standing Number of Occurrences: 6 Standing Expiration Date: 10/01/2018 ??? TRIGLYCERIDES BLOOD Patient should be fasting for at least 8 hours prior to lab. May only drink water while fasting. Standing Status: Standing Number of Occurrences: 6 Standing Expiration Date: 10/01/2018 Patient Instructions Erick's acne involves his face is marginally controlled using doxycycline, tretinoin, and benzoyl peroxide wash as prescribed. His acne includes cysts with evidence of early scarring. He is a candidate for isotretinoin. Erick's starting dose of isotretinoin will be 30mg/day. His goal daily dose is 80mg based on his ideal body weight of 80mg, and cumulative dose at 150mg/kg= 12,000 mg. Return in 31+ days Go to the lab at your earliest convenience to get your fasting labs done. Call [phone] option 3, Wednesday-Wednesday between 9 AM and 5 PM in or Wednesday to review lab results. If labs are OK, plan to start taking 30 mg/day (taken with food to maximize absorbtion). iPLEDGE Instructions Participation in the iPLEDGE Program requires monthly counseling, and attending follow-up appointments. Fill your prescriptions at least every 50 days to prevent disqualification from the program. Patients taking isotretinoin must come to the office every month and get a blood test every month until the course has been completed. If you fail to come for your visit or get your blood test, you may not be able to get a prescription refill. Being off the medicine for a period of time will not affect the treatment???s effectiveness, but will prolong the course. Do not share your pills. Do not donate blood while taking isotretinon. Skin care recommendations Facial lotions: Guevara FRANCO, Esmer, Cetaphil, Oil of Olay, Vanicream Arms for pink bumps (keratosis pilaris): CeraVe SA and AmLactin Acanthosis Nigricans Acanthosis nigricans (fs-oy-FJLG-sis YLJ-plpa-fzktx) is a skin condition that features dark, thick,velvety changes most often the armpits, groin, neck and elbows. Acanthosis nigricans can begin at any age. It is more common in people who have dark skin. The skin changes develop slowly, usually over several years. The skin changes do not typically hurt or itch. Acanthosis nigricans can be associated with other health problems, most often an inherited tendencyto be overweight, have increased blood levels of insulin, irregular menstrual periods, type 2 diabetes, high blood pressure and an increased risk of heart attacks. Children who are overweight and have acanthosis nigricans have a very high risk for developing these problems as adults. Certain medications -- such as control pills, and large doses of niacin -- can increase the risk. Other hormone problems, such as low thyroid, or tumors rarely play a role. No treatment has been proven to remove the acanthosis nigricans. However, treating underlying conditions may cause the skin changes to fade, such as: Losing excess pounds if you're overweight Making dietary changes, such as cutting back on starches and sugars Monitoring blood pressure It is often easier to begin to make these lifestyle changes in childhood, and especially important for children and teenagers with acanthosis nigricans. ([facility] program WEIGH OF LIFE! canhelp. See information below and call [phone] or for more information.) If you are concerned about the appearance of your skin, there are treatments that may help fade thediscoloration modified vitamin A prescription creams (tretinoin such as Retin-A, or similar products) non-prescription creams containing urea, salicylic acid, lactic acid or glycolic acid Fish oil supplements Very severe acanthosis nigricans can have a bad odor. Using antibacterial soaps or taking bleach baths can help. WEIGH OF LIFE! Learn healthy eating and exercise habits that will last a lifetime! This is a dynamic behavior-change program offered for overweight or obese children, and at least one parent, who are motivated to make behavioral, nutrition and lifestyle changes. The program includes: 9 weekly lessons which include behavioral skills, physical activity, and food preparation demonstrations. Focus on managing behavior, emotions and self-esteem for weight control. Group setting for 8-12 years old children and their parents. Time and Location: Wednesdays, 4:30-6:30 pm, beginning September 23, 2016. At [facility], [facility]. COST: Free Contact: Call [phone] or for more information. Attending Note Previous documentation from my team has been reviewed and discussed. In my attending note above, I have confirmed these findings other than where revisions were made. Follow-Up Return in about 31 days (around 11/01/2017). Rani Solitario MD HING STATION OPERATOR documented in this encounter Plan of Treatment Not on file documented as of this encounter Visit Diagnoses Diagnosis Acne vulgaris- Primary Other acne Encounter for medication monitoring Encounter for therapeutic drug monitoring documented in this encounter Care Teams Cathead Worker Relationship Specialty Start Date End Date Godfrey Curry MD [address] [place] [phone] PCP - General Pediatrics 05/01/14 Dipika Reddy MD [facility] [place] [phone] Resident Student Resident 11/27/15 documented as of this encounter
--- OUTSIDE RECORDS SUMMARY | 2024-08-06 19:03 | XMS_ITS | Encounter Summary ---
Author Organization [facility] Address [address] [facility] [place] [address] Care Team Providers Care Wharf Attendant Name Role Phone Bernardino Brown MD Primary Care Provider [phone] Sera Leonard DO Unavailable [phone] Reason for Visit * Reason Comments Sore Throat Sore throat and sore s on the back of his tongue. Seen here Wednesday and was strep negative, dx with URI. Now states he feels like his throat is closing. No respiratory distress. Tylenol taken at 2pm Encounter Details Date Type Department Care Team (Late st Contact Info) Description 04/17/2014 7:26 PM CDT - 04/17/2014 9:02 PM CDT Emergency ER at [address] [address] Herpangina; Allergic rhinitis; Cervical adenitis; Acute pharyngitis Discharge Disposition: Home or Self Care Social [...] Sign Reading Time Taken Comments Blood Pressure 115/73 04/17/2014 6:54 PM CDT Pulse 66 04/17/2014 6:54 PM CDT Temperature 36.6 ??C (97.8 ??F) 04/17/2014 6:54 PM CD T Respiratory Rate 18 04/17/2014 6:54 PM CDT Oxygen Saturation 99% 04/17/2014 8:15 PM CDT Inhaled Oxygen Concentration - - Weight 96.3 kg (212 lb 4.9 oz) 04/17/2014 6:54 P M CDT Height - - Body Mass Index - - documented in this encounter Discharge Instructions * Discharge Instructions* Dana López APRN-AERODYNAMICIST - 04/17/2014 8:41 PM CDT Cervical Adenitis You have a swollen lymph gland in your neck. This commonly happens with Strep and virus infections,dental problems, insect bites, and injuries about the face, scalp, or neck. The lymph glands swell as the body fights the infection or heals the injury. Swelling and firmness typically lasts for several weeks after the infection or injury is healed. Rarely lymph glands can become swollen because of cancer or TB. Antibiotics are prescribed if there is evidence of an infection. Sometimes an infected lymph gland becomes filled with pus. This condition may require opening up the abscessed gland by draining it surgically. Most of the time infected glands return to normal within two weeks. Do not poke or squeezethe swollen lymph nodes. That may keep them from shrinking back to their normal size. If the lymph gland is still swollen after 2 weeks, further medical evaluation is needed. Herpangina Herpangina is a viral illness that causes sores inside the mouth and throat. It can be passed from person to person (contagious). Most cases of herpangina occur in the summer. CAUSES Herpangina is caused by a virus. This virus can be spread by saliva and haxjg-xx-gyuwf contact. It can also be spread through contact with an infected person's stools. It usually takes 3 to 6 days after exposure to show signs of infection. SYMPTOMS ?? Fever. ?? Very sore, red throat. ?? Small blisters in the back of the throat. ?? Sores inside the mouth, lips, cheeks, and in the throat. ?? Blisters around the outside of the mouth. ?? Painful blisters on the palms of the hands and soles of the feet. ?? Irritability. ?? Poor appetite. ?? Dehydration. DIAGNOSIS This diagnosis is made by a physical exam. Lab tests are usually not required. TREATMENT This illness normally goes away on its own within 1 week. Medicines may be given to ease your symptoms. HOME CARE INSTRUCTIONS ?? Avoid salty, spicy, or acidic food and drinks. These foods may make your sores more painful. ?? If the patient is a baby or young child, weigh your child daily to check for dehydration. Rapid weight loss indicates there is not enough fluid intake. Consult your caregiver immediately. ?? Ask your caregiver for specific rehydration instructions. ?? Only take jivr-qet-apcpflv or prescription medicines for pain, discomfort, or fever as directed by your caregiver. SEEK IMMEDIATE MEDICAL CARE IF: ?? Your pain is not relieved with medicine. ?? You have signs of dehydration, such as dry lips and mouth, dizziness, dark urine, confusion, or a rapid pulse. MAKE SURE YOU: ?? Understand these instructions. ?? Will watch your condition. ?? Will get help right away if you are not doing well or get worse. Document Released: 04/16/2004 Document Revised: 10/10/2012 Document Reviewed: 02/08/2012 ExitCare?? Patient Information ??2014 [employer]. Headache and Allergies The relationship between allergies and headaches is unclear. Many people with allergic or infectious nasal problems also have headaches (migraines or sinus headaches). However, sometimes allergies can cause pressure that feels like a headache, and sometimes headaches can cause allergy-like symptoms. It is not always clear whether your symptoms are caused by allergies or by a headache. CAUSES ?? Migraine: The cause of a migraine is not always known. ?? Sinus Headache: The cause of a sinus headache may be a sinus infection. Other conditions that may be related to sinus headaches include: ?? Hay fever (allergic rhinitis). ?? Deviation of the nasal septum. ?? Swelling or clogging of the nasal passages. SYMPTOMS Migraine headache symptoms (which often last 4 to 72 hours) include: ?? Intense, throbbing pain on one or both sides of the head. ?? Nausea. ?? Vomiting. ?? Being extra sensitive to light. ?? Being extra sensitive to sound. ?? Nervous system reactions that appear similar to an allergic reaction: ?? Stuffy nose. ?? Runny nose. ?? Tearing. Sinus headaches are felt as facial pain or pressure. DIAGNOSIS Because there is some overlap in symptoms, sinus and migraine headaches are often misdiagnosed. Forexample, a person with migraines may also feel facial pressure. Likewise, many people with hay fever may get migraine headaches rather than sinus headaches. These migraines can be triggered by the histamine release during an allergic reaction. An antihistamine medicine can eliminate this pain. There are standard criteria that help clarify the difference between these headaches and related allergy or allergy-like symptoms. Your caregiver can use these criteria to determine the proper diagnosis and provide you the best care. TREATMENT Migraine medicine may help people who have persistent migraine headaches even though their hay fever is controlled. For some people, anti-inflammatory treatments do not work to relieve migraines. Medicines called triptans (such as sumatriptan) can be helpful for those people. Document Released: 10/08/2004 Document Revised: 10/10/2012 Document Reviewed: 10/31/2010 ExitCare?? Patient Information ??2014 [employer]. SEEK IMMEDIATE MEDICAL CARE IF: You have difficulty swallowing or breathing, increased swelling, severe pain, or a high fever. Document Released: 2006 Document Revised: 03 Sore Throat A sore throat is a painful, burning, sore, or scratchy feeling of the throat. There may be pain or tenderness when swallowing or talking. You may have other symptoms with a sore throat. These includecoughing, sneezing, fever, or a swollen neck. A sore throat is often the first sign of another sickness. These sicknesses may include a cold, flu, strep throat, or an infection called mono. Most sorethroats go away without medical treatment. HOME CARE ?? Only take medicine as told by your doctor. ?? Drink enough fluids to keep your pee (urine) clear or pale yellow. ?? Rest as needed. ?? Try using throat sprays, lozenges, or suck on hard candy (if older than 4 years or as told). ?? Sip warm liquids, such as broth, herbal tea, or warm water with honey. Try sucking on frozen icepops or drinking cold liquids. ?? Rinse the mouth (gargle) with salt water. Mix 1 teaspoon salt with 8 ounces of water. ?? Do not smoke. Avoid being around others when they are smoking. ?? Put a humidifier in your bedroom at night to moisten the air. You can also turn on a hot shower and sit in the bathroom for 5 10 minutes. Be sure the bathroom door is closed. GET HELP RIGHT AWAY IF: ?? You have trouble breathing. ?? You cannot swallow fluids, soft foods, or your spit (saliva). ?? You have more puffiness (swelling) in the throat. ?? Your sore throat does not get better in 7 days. ?? You feel sick to your stomach (nauseous) and throw up (vomit). ?? You have a fever or lasting symptoms for more than 2 3 days. ?? You have a fever and your symptoms suddenly get worse. MAKE SURE YOU: ?? Understand these instructions. ?? Will watch your condition. ?? Will get help right away if you are not doing well or get worse. Document Released: 04/27/2009 Document Revised: 04/12/2013 Document Reviewed: 03/26/2013 ExitCare?? Patient Information ??2013 [employer]. Document Reviewed: 01/08/2008 ExitCare?? Patient Information ??2014 [employer]. documented in this encounter Medications at Time of Discharge Medication Sig Dispensed Refills Start Date End Date acetaminophen (TYLENOL) 500 MG tablet Take 1 Tab by mouth every 4 hours as needed for Fever or Pain. Maximum allowable Acetaminophen amount = 4 Grams (4000 mg) / 24 hours. 20 Tab 0 12/18/2013 02/04/2015 albuterol HFA (PROVENTIL;VENTOLIN; PROAIR) 108 (90 BASE) MCG/ACT inhaler 2 puffs every 4 hours while awake for the next 48 hours then as needed for cough. 1 Inhaler 5 04/17/2014 12/04/2015 cetirizine (ZYRTEC) 10 MG chew tablet Take 1 Tab by mouth once daily. 30 Tab 0 04/17/2014 10/30/2014 fluticasone propionate (FLONASE) 50 MCG/ACT nasal spray [place] 2 Sprays into each nostril once daily. 1 Bottle 0 04/17/2014 10/30/2014 documented as of this encounter ED Notes * Dana López APRN-CNP - 04/17/2014 7:35 PM CDT EMERGENCY DEPARTMENT 04/17/2014 Dear Doctor, We had the pleasure of caring for your patient, Erick Triana in our emergency department on 04/17/2014. A note from the provider(s) who cared for your patient is attached. Should you wish to access any laboratory results, please call . Should you wish to access any radiology results, please call , option 3. In addition, you can access patient information 24 hours a day, from any computer, through [employer], the online version of our electronic medical record. If you would like to use this service, please call Cherise Mejias, Connectivity Coordinator, at . We appreciate the opportunity to care for your patients. If you would like additional information, please call the emergency department directly at . Sincerely, MARY KATE Villela Division of Emergency Medicine [facility], [place] [facility] [place] DESIGNATED EMERGENCY DEPARTMENT Provider contact with the patient: 04/17/2014 19:35 Erick Triana [id number] [facility] EMERGENCY DEPARTMENT History Chief Complaint Patient presents with ??? Sore Throat Sore throat and sores on the back of his tongue. Seen here Wednesday and was strep negative, dx with URI. Now states he feels like his throat is closing. No respiratory distress. Tylenol taken at 2pm HPI Comments: History was provided by the grandmother, grandfather. Erick Triana is an 13 y.o. male who presents with symptoms including: sore throat and blisters on tongue. Sat morning child started with a sore throat. Sore throat continues, but he now has blisters that he can feel touching the back of his throat and it feels like his throat is closing. Tactile fevers treated with Tylenol, no fever today. No known sick exposures. Child is eating and drinkingnormally, but it is hard to swallow. Normal UOP. Cough, congestion and runny nose since last week. Has some mid sternal chest tightness, has not used his inhaler. Past medical history includes allergies, not taking allergy meds because he doesn't think it helps,has tried zyrtec, claritin, and nasal sprays. Also has hx of asthma but has nor used his inhaler jaimee long time, he thinks it is Immunizations are UTD Seasonal allergies Allergies Past Medical History Diagnosis Date ??? Anatomic airway obstruction ??? Seasonal allergies ??? KEYANA (obstructive sleep apnea) post T&A 2006--continued snoring sleep study 09/22/10 AHI 1.5 O2 desat 91% ??? Thyroid activity decreased ??? Allergic rhinitis 05/19/2011 ??? Torsion of testicle R testicle Past Surgical History Procedure Laterality Date ??? Tonsillectomy and adenoidectomy 04/01/07 ??? Adenoidectomy ??? Tonsillectomy Medications Current Outpatient Prescriptions Medication Sig Dispense Refill ??? acetaminophen (TYLENOL) 500 MG tablet Take 1 Tab by mouth every 4 hours as needed for Fever or Pain. Maximum allowable Acetaminophen amount = 4 Grams (4000 mg) / 24 hours. 20 Tab 0 Review of Systems Review of Systems Constitutional: Negative for activity change and appetite change. HENT: Positive for congestion, rhinorrhea, sore throat and trouble swallowing (hurts). Negative forear discharge and ear pain. Respiratory: Positive for cough and chest tightness. Negative for shortness of breath and wheezing. Allergic/Immunologic: Positive for environmental allergies. Neurological: Positive for headaches (frequently). BP 115/73 Pulse 66 Temp(Src) 97.8 ??F Resp 18 Wt 96.3 kg (212 lb 4.9 oz) Physical Exam Physical Exam Constitutional: He is oriented to person, place, and time. He appears well- developed and well-nourished. No distress. Cooperative, interactive HENT: Head: Normocephalic. Nose: Nose normal. Mouth/Throat: No edematous. Posterior oropharyngeal erythema present. No posterior oropharyngeal edema. Bilateral TMs dull and full, distorted light reflex, no erythema or pus. No soft palate or uvula edema, uvula midline. Posterior portion of tounge with 5 white ulcers with erythematous halo, no drainage. Nasal tone to voice Post nasal drip Eyes: Conjunctivae and EOM are normal. Pupils [...] Bowel sounds are normal. He exhibits no distension. There is no tenderness. Musculoskeletal: Normal range of motion. Lymphadenopathy: He has cervical adenopathy (Left posterior cervical node 2 cm, tender to palpation, mobile, no erythema). Neurological: He is alert and oriented to person, place, and time. Skin: Skin is warm. He is not diaphoretic. Psychiatric: He has a normal mood and affect. His behavior is normal. Nursing note and vitals reviewed. Procedures Procedures ECG Interpretation ECG Interpretation Lab/SPO2 Interpretation Progress Notes Denies chest tightness after 2 puff of albuterol with MDI teaching. BBS clear and equal with good aeration and no wheezing. Patient is well appearing, interactive, attentive and non toxic. No signs of bacterial infection and no signs or symptoms of respiratory distress. ED Course Orders Placed This Encounter ??? PATIENT EDUCATION RESPIRATORY THERAPY Standing Status: Standing Number of Occurrences: 1 Standing Expiration Date: Order Specific Question: Specify type of education Answer: MDI and aerochamber use ??? ibuprofen (MOTRIN) tablet 600 mg Sig: ??? albuterol HFA (PROVENTIL;VENTOLIN;PROAIR) 108 (90 BASE) MCG/ACT inhaler 2 Puff Sig: ??? cetirizine (ZYRTEC) 10 MG chew tablet Sig: Take 1 Tab by mouth once daily. Dispense: 30 Tab Refill: 0 ??? fluticasone propionate (FLONASE) 50 MCG/ACT nasal spray Sig: [place] 2 Sprays into each nostril once daily. Dispense: 1 Bottle Refill: 0 ??? albuterol HFA (PROVENTIL;VENTOLIN;PROAIR) 108 (90 BASE) MCG/ACT inhaler Si puffs every 4 hours while awake for the next 48 hours then as needed for cough. Dispense: 1 Inhaler Refill: 5 ' Medical Decision Making I have reviewed the: Nursing Notes and Vitals. I have interpreted the following results: Oxygen Saturation. I have discussed the case with Family/Caregiver. Clinical Impression ICD-9-CM 1. Herpangina 074.0 2. Allergic rhinitis 477.9 3. Cervical adenitis 289.3 4. Acute pharyngitis 462 Plan Eat soft, cool foods until your sore throat and tounge sores gets better. Drink a lot of water and other fluids Swollen lymph nodes are a sign that your body currently has or has recently had an infection. We worry about swollen lymph nodes if they become infected, that is, if they increase in swelling, becomered, and warm to touch. Follow up with your cardiac cath technician if concerns of infection Take your allergy medications each day as prescribed Use you albuterol inhaler every 4 hours while awake for 48 hours then as needed for cough, chest tightness or wheezing. Humidifier in room at night, must be cleaned daily with a dilute bleach solution and rinse thoroughly Use saline drops to nose several times a day and blow nose Follow up with your PMD if cold symptoms/allergy symptoms continue beyond a week or if he has feverfor more than 3 days Monitor temperature with a thermometer, may treat fevers with Tylenol Return here if difficulty breathing Patient discharged alert, active, and in no acute distress. Grandparents comfortable with plan of care denies further questions or concerns. documented in this encounter Plan of Treatment Scheduled Orders Name Type Priority Associated Diagnoses Order Schedule PATIENT EDUCATION RESPIRATORY THERAPY Respiratory Care Routine ONCE for 1 Occurrences starting 04/17/2014 until 04/17/2014 documented as of this encounter Visit Diagnoses Diagnosis Herpangina Allergic rhinitis Cervical adenitis Lymphadenitis, unspecified, except mesenteric Acute pharyngitis documented in this encounter Administered Medications Inactive Administered Medications - up to 3 most recent administrations Medication Order MAR Action Action Date Dose Rate Site albuterol HFA (PROVENTIL;VENTOLIN;PROAIR) 108 (90 BASE) MCG/ACT inhaler 2 Puff 2 puff, Inhalation, ONCE, 1 dose, On Wed04/17/14 at 2044, Shake well before using. WASTE DISPOSAL INSTRUCTION: Send to Pharmacy for Disposal. $ Given 04/17/2014 8:36 PM CDT 2 puffs ibuprofen (MOTRIN) tablet 600 mg 600 mg, Oral, ONCE, 1 dose, On Wed04/17/14 at 1915, Maximum allowable amount = 3200 mg / 24 hours. $ Given 04/17/2014 6:58 PM CDT 600 mg documented in this encounter Active and Recently Administered Medications Times are shown in CDT. Scheduled Medication Order 04/15/2014 04/16/2014 04/17/2014 albuterol HFA (PROVENTIL;VENTOLIN;PROAIR) 108 (90 BASE) MCG/ACT inhaler 2 Puff (COMPLETED) 2 puff, Inhalation, ONCE, 1 dose, On Wed04/17/14 at 204, Shake well before using. WASTE DISPOSAL INSTRUCTION: Send to Pharmacy for Disposal. 2035 ($ Given - Prov ider: Dipika David RCP) ibuprofen (MOTRIN) tablet 600 mg (COMPLETED) 600 mg, Oral, ONCE, 1 dose, On Wed04/17/14 at 1915, Maximum allowable amount = 3200 mg / 24 hours. 1858 ($ Given - Prov ider: Radha Robins RN) documented in this encounter Care Teams Wharf Attendant Relationship Specialty Start Date End Date Bernardino Brown MD [address] [place] [phone] PCP - General Pediatrics 05/16/13 04/30/14 Sera Leonard DO [address] [place] [phone] Resident Pediatrics 09/27/13 11/04/14 documented as of this encounter
--- OUTSIDE RECORDS SUMMARY | 2024-08-06 19:03 | XMS_ITS | Encounter Summary ---
Author Organization [facility] Address [address] [place] [address] Care Team Providers Care [place] Laborer Name Role Phone Godfrey Curry MD Primary Care Provider Dipika Reddy MD Unavailable Reason for Visit * Reason Onset Date Comments Referral Request 08/12/2016 Encounter Details Date Type Department Care Team (Late st Contact Info) Description 08/12/[address] [facility] Pediatrics - [facility] [address] [place] [id number] Godfrey Curry MD [address] [place] [phone] Referral Request Social History Tobacco Use Types Packs/Day Years Used Date Smoking Tobacco: Never Alcohol Use Standard Drinks/Week Comments No 0 (1 standard drink = 0.6 oz pur e alcohol) Sex and Gender Information Value Date Recorded Sex Assigned at Not on file Gender Identity Not on file Sexual Orientation Not on file documented as of this encounter Miscellaneous Notes * Telephone Encounter - Janine Allan LPN - 08/12/2016 12:36 PM CST Telephone call to mom, she wants to resume care with psychology here at [facility], call transferred to [facility] . D REIMBURSEMENT MANAGER * Telephone Encounter - Isacc Lynn MD - 08/12/2016 11:53 AM CST Called but no answer. Left message to call back D REIMBURSEMENT MANAGER * Telephone Encounter - Bandar Radha Stella - 08/12/2016 11:39 AM CST Mom would like rEick to start seeing a psychologist to discuss his anger issues D REIMBURSEMENT MANAGER documented in this encounter Plan of Treatment Not on file documented as of this encounter Visit Diagnoses Not on filedocumented in this encounter Care Teams [place] Laborer Relationship Specialty Start Date End Date Godfrey Curry MD [address] [place] [phone] PCP - General Pediatrics 05/01/14 Dipika Reddy MD [address] [place] [phone] Resident Student Resident 11/27/15 documented as of this encounter
--- OUTSIDE RECORDS SUMMARY | 2024-08-06 19:03 | XMS_ITS | Encounter Summary ---
Author Organization [facility] Address [address] [facility] [place] [address] Care Team Providers Care Plc Engineer Name Role Phone Marisol Roblero MD Primary Care Provider [phone] Reason for Referral * Evaluate & Treat Specialty Diagnoses / Procedures Referred By Nelli pinto Referred To Contact Anshu Paredes MD [address] [place] [id number] [facility] [address] [place] [id number] Referral ID Status Reason Start Date Expiration Date V isits Requested Visits Authorized Specialty Services Required Reason for Visit * Reason Comments Follow-up Adenoidectomy Continues to snore and have sinus congestion Encounter Details Date Type Department Care Team (Latest Contact Info) Description 03/05/2011 2:56 PM CDT - 03/05/2011 11:59 PM CDT Hospital Encounter [facility] Pediatrics - ENT [address] [place] [id number] Discharge Disposition: Home or Self Care Social [...] - Inhaled Oxygen Concentration - - Weight 68.3 kg (150 lb 9.6 oz) 03/05/2011 2:57 P M CDT Height 151 cm (4' 11.45 ) 03/05/2011 2:57 PM CDT Body Mass Index 29.96 03/05/2011 2:57 PM CDT Body Mass Index Percentile 99.30% 03/05/2011 2:5 7 PM CDT Growth Chart: [facility] (Boys, 2-2 0 Years) documented in this encounter Medications at Time of Discharge Medication Sig Dispensed Refills Start Date End Date ferrous sulfate 300 (60 FE) MG tablet Take 300 mg by mouth once daily. 05/05/2011 fluticasone propionate (FLONASE) 50 MCG/ACT nasal spray [place] 2 Sprays into each nostril once daily. 1 Bottle 5 03/05/2011 04/02/2011 documented as of this encounter Progress Notes * Ansuh Paredes MD - 03/05/2011 3:35 PM CDT Chief Complaint: 10 y.o. 7 m.o. male is having difficulty with nasal congestion after adenoidectomy, seasonal post nasal drip, sneezing and congestion. ROS: Erick's speech is age appropriate, and there have been no cardiopulmonary problems. He has been breathing and feeding without difficulty. Exam: Breathing comfortably, without stertor or stridor. Ear exam: patent ear canals bilaterally Nasal exam: no nasal lesions, no erythema, clear mucus and hypertrophy of tubinates consistent withallergy Oral exam: no oral lesions; : Assessment & Plan: allergic rhinitis: flonase nasal spray, allergy test RTC in one month documented in this encounter Miscellaneous Notes * Miscellaneous Scans - Document, Scanned - 05/11/2011 9:00 PM CDT documented in this encounter Plan of Treatment Scheduled Referrals Name Type Priority Associated Diagnoses Orde r Schedule Faheem referral to Allergy Outpatient Referral Routine Allergic rhinitis Ordered: 03/05/2011 documented as of this encounter Visit Diagnoses Diagnosis Allergic rhinitis Allergic rhinitis, cause unspecified documented in this encounter Care Teams Plc Engineer Relationship Specialty Start Date End Date Marisol Roblero MD [address] [place] [phone] PCP - General 11/13/10 04/30/11 documented as of this encounter
--- OUTSIDE RECORDS SUMMARY | 2024-08-06 19:03 | XMS_ITS | Encounter Summary ---
Author Organization [facility] Address [address] [facility] [place] [address] Care Team Providers Care Product Engineer Name Role Phone Kendal Hernandez MD Primary Care Provider [phone] Marisol Roblero MD Primary Care Provider [phone] Sandra Nettles MD Primary Care Provider [phone] Marisol Roblero MD Primary Care Provider [phone] Sandra Nettles MD Primary Care Provider [phone] Marisol Roblero MD Primary Care Provider [phone] Sandra Nettles MD Primary Care Provider [phone] Marisol Roblero MD Primary Care Provider [phone] Sandra Nettles MD Primary Care Provider [phone] Marisol Roblero MD Primary Care Provider [phone] Bernardino Brown MD Primary Care Provider [phone] Bernardino Brown MD Unavailable [phone] Encounter Details Date Type Department Care Team (Late st Contact Info) Description 04/01/2007 Orders Only [facility] - Laboratory [address] [place] [address]. [place] [address] Provider, MD Rikki Social History Tobacco Use Types Packs/Day Years Used Date Smoking Tobacco: Never Assessed Sex and Gender Information Value Date Recorded Sex Assigned at Not on file Gender Identity Not on file Sexual Orientation Not on file documented as of this encounter Plan of Treatment Not on file documented as of this encounter Procedures Procedure Name Priority Date/Time Associated Diagnosis Comments GROSS EXAM PATHOLOGY ANITA 04/01/2007 1:45 PM CDT documented in this encounter Results * GROSS EXAM PATHOLOGY (04/01/2007 1:45 PM CDT) Result CASE NUMBER [id number] [facility] PATH REPORT Comment: ORDERING PHYSICIAN ??MARY [...] and interpreted by the attending (teaching) pathologist. Fashion Editor ? DAMIR MURPHY A PATHOLOGIST ?Elie Rowan M.D. ELECTRONICALLY CHIVO Elie Rowan MISCELLANEOUS SAMPLES / Unknown 04/01/2007 1:45 PM CDT 04/01/2007 2:01 PM CDT Historical Provider LAB - PATHOLOGY/C YTOLOGY ORDERABLES [facility] PATH REPORT documented in this encounter Visit Diagnoses Not on filedocumented in this encounter Care Teams Product Engineer Relationship Specialty Start Date End Date Kendal Hernandez MD [address] [place] [address] PCP - General 08/21/10 11/12/10 Marisol Roblero MD [facility] [place] [phone] PCP - General 11/13/10 04/30/11 [place] [address] [place] [address] PCP - General 05/01/11 05/01/11 Marisol Roblero MD [address] [place] [phone] PCP - General 05/02/11 05/17/11 [place] [address] [place] [address] PCP - General 05/18/11 05/20/11 Marisol Roblero MD [address] [place] [phone] PCP - General 05/21/11 06/03/11 [place] [address] [place] [address] PCP - General 06/04/11 07/07/11 Marisol Roblero MD [address] [place] [phone] PCP - General 07/08/11 08/24/11 [place] [address] [place] [address] PCP - General 08/25/11 09/02/11 Marisol Roblero MD [address] [place] [phone] PCP - General 09/03/11 05/15/13 Bernardino Brown MD [address] [place] [phone] PCP - General Pediatrics 05/16/13 04/30/14 Bernardino Brown MD [address] [place] [phone] [facility] 05/16/13 09/26/13 documented as of this encounter
--- OUTSIDE RECORDS SUMMARY | 2024-08-06 19:03 | XMS_ITS | Encounter Summary ---
Author Organization [facility] Address [address] [facility] [place] [address] Care Team Providers Care Attenuator Name Role Phone Godfrey Curry MD Primary Care Provider Dipika Reddy MD Unavailable Reason for Visit * Reason Onset Date Comments Refill Request 05/24/2017 Encounter Details Date Type Department Care Team (Late st Contact Info) Description 05/24/2017 Telephone [facility] - [facility] [address] [place] [id number] Godfrey Curry MD [address] [place] [phone] Refill Request Social History Tobacco Use Types Packs/Day Years Used Date Smoking Tobacco: Never Alcohol Use Standard Drinks/Week Comments No 0 (1 standard drink = 0.6 oz pur e alcohol) Sex and Gender Information Value Date Recorded Sex Assigned at Not on file Gender Identity Not on file Sexual Orientation Not on file documented as of this encounter Miscellaneous Notes * Telephone Encounter - Ortiz Ila - 05/24/2017 11:46 AM CDT Erick Triana's, 16 y.o. male, mother is calling requesting medication refill. Medication: loratadine (CLARITIN) 10 MG tablet Last well child checkup: 12/04/15 Mom is checking with patient and school to get dates to schedule well child checkup Pharmacy verified. Future Appointments Date Time Provider Department Center 07/05/2017 1:00 PM Elena Eugene PA-C [facility] documented in this encounter Plan of Treatment Not on file documented as of this encounter Visit Diagnoses Not on filedocumented in this encounter Care Teams Attenuator Relationship Specialty Start Date End Date Labarge, Godfrey Zapata MD [address] [place] [phone] PCP - General Pediatrics 05/01/14 Dipika Reddy MD [address] [place] [phone] Resident Student Resident 11/27/15 documented as of this encounter
--- OUTSIDE RECORDS SUMMARY | 2024-08-06 19:03 | XMS_ITS | Encounter Summary ---
Author Organization [facility] Address [address] [place] [address] Care Team Providers Care Insurance Service Representative Name Role Phone Godfrey Curry MD Primary Care Provider Dipika Reddy MD Unavailable [phone] Reason for Visit * Reason Comments Well Child Check Encounter Details Date Type Department Care Team (Latest Contact Info) Description 12/04/2015 1:30 PM CDT - 12/04/2015 11:59 PM CDT Hospital Encounter [facility] - [facility] [address] [id number] John Roland MD [facility] [place] [address] Discharge Disposition: Home or Self Care Social [...] Sign Reading Time Taken Comments Blood Pressure 112/62 12/04/2015 1:31 PM CDT Pulse - - Temperature - - Respiratory Rate - - Oxygen Saturation - - Inhaled Oxygen Concentration - - Weight 110 kg (242 lb 8 oz) 12/04/2015 1:31 PM C DT Height 173.5 cm (5' 8.31 ) 12/04/2015 1:31 PM CD T Body Mass Index 36.54 12/04/2015 1:31 PM CDT Body Mass Index Percentile 99.36% 12/04/2015 1:3 1 PM CDT Growth Chart: CDC (Boys, 2-2 0 Years) documented in this encounter Discharge Instructions * Patient Instructions* John Roland MD - 12/04/2015 2:19 PM CDT Images from the original note were not included. YOUR GROWING CHILD: FIFTEEN to EIGHTEEN YEARS Child???s Name: Erick Triana Today???s Date: 12/04/2015 Wt Readings from Last 1 Encounters: 12/04/15 109.997 kg (242 lb 8 oz) (100 %*, Z = 2.88) * Growth percentiles are based on CDC 2-20 Years data. Ht Readings from Last 1 Encounters: 12/04/15 1.735 m (5' 8.31 ) (60 %*, Z = 0.25) * Growth percentiles are based on CDC 2-20 Years data. If you need to reach a barrel rifler button after normal business hours, please call our After Hours number at [phone]. IMMUNIZATIONS Your child may receive vaccines today. Please see our current immunization schedule for upcoming immunizations. AGE of YOUR CHILD IMMUNIZATIONS 16 YEARS Menactra (Meningococcal) Yearly Influenza vaccine HPV vaccine is 3 doses; 2nd dose is 1-2 months after first dose and 3rd dose is 6 months after the first dose DEVELOPMENT At this age, many girls have completed the physical changes associated with puberty, and most boys are continuing to gain height and muscle mass, along with completing the other physical changes associated with puberty. Sexual feelings are normal but reinforce with your child the importance of delaying sexual behavior. Teach him/her how to say no to sex. If your child is sexually active, discuss the importance of practicing safe sex and the health consequences of unprotected sex, such as and sexually transmitted diseases (including HIV/AIDS). The adolescent???s peer group continues to be very important to him/her. Regularly talk with your child about the consequences of drinking, smoking, drugs, inhalants, and especially drinking and driving. It is important to support and enhance your child???s self-esteem and self-confidence, as children who feel better about themselves are more likely to withstand peer pressure. Spend time with your child, show affection, praise his/her efforts and accomplishments, support his/her interests, and keep up with your child???s schoolwork and social experience in school. Communicate with your child???s teachers regularly, especially if there are concerns or questions. Stress the importance of school to your teenager and begin to discuss your child???s interest and goals for after high school. Encourage your child to be engage in regular physical activity and limit nonacademic screen time toless than 2 hours a day. This is also a good age for increasing your child???s responsibilities by allowing your child to share in (or continuing to share in) drilling superintendent. Also increase awareness about community issues and needs. However, if your teen has an after school job, limit the hours so your child can maintain a healthy balance between school, work, and extracurricular activities. Continue to teach good hygiene and make sure your child gets enough sleep. At this age most children require 8 to 10 hours of sleep per night. DIET Continue to offer 3 healthy meals a day and stress the importance of breakfast. Teach your child how to choose appropriate foods to eat a balanced diet. Parents and other family members have the mostinfluence on children???s eating behavior and attitudes toward food. Be a positive role model by having nutritious foods available at home, and eating them yourself. Continue to encourage vegetables, fruits, whole grains, and low fat dairy products. If your child does not drink milk, provide other calcium-rich foods such as calcium-fortified orange juice, yogurt, cheese, broccoli, and turnip greens. Avoid having junk food, high calorie food, and soda available at home. DISCIPLINE Adolescents can present a challenge for their parents, as they frequently test your limits and question authority. Rules should be clear and consequences for unacceptable behavior should be enforced consistently. Your adolescent is maturing rapidly but still does not have the experience and judgment of an adult. Continue to be actively involved in your child???s life, providing loving parenting, appropriate limits, and respect for authority. Teach respect for authority, how to resolve conflicts, and how to handle anger appropriately. Most importantly, be a good role model! documented in this encounter Medications at Time of Discharge Medication Sig Dispensed Refills Start Date End Date clindamycin (CLINDAGEL) 1 % gel Apply to affected area every morning 1 Bottle 2 08/23/2015 11/06/2016 tretinoin (RETIN-A) 0.05 % cream Apply to affected area at bedtime 45 g 0 08/23/2015 01/20/2016 documented as of this encounter Progress Notes * John Roland MD - 12/04/2015 1:58 PM CDT Images from the original note were not included. Division of General Academic Pediatrics [address] [address] ? Name: Erick Triana Age: 15 y.o. 4 m.o. Sex: male Date: 12/04/2015 : 2000 Pediatric Clinic Well Child Visit Erick Triana is a 15 y.o. male brought here today for his 12-21 year well child visit. He is accompanied today by his mother. Subjective Persons living in home: grandparent(s) Nutrition Nutrition: 3 meals with snacks, Variety of foods and Soft drinks / soda Types of food: fruits, vegetables, meats, bread / cereal and dairy Urinary / GI Urine: normal urination Stool: normal Sleep Sleep quality: Sleeps well, 8 hrs/night Sleep location: own bed Cell phone, TV or internet connected device in bedroom: yes Screen hrs per day: ; has a cell phone, caregiver has access to the phone Activity Activity level: normal activity level Injuries: no Exercising >= 60 min / day: no School Grade in school: 8th Future plans: wants to attend college School performance: A - B student Homework: completes on own Teacher concerns: nervous/anxious and no concerns Concerns voiced by child: none; Does not visit school counselor Behavior Behavior concerns: no Peer involvement: socializing appropriately with peers and socializing appropriately with siblings Attention: appropriate Parent - child - sibling interaction: normal Cooperation / Oppositional behavior: normal Wool Brusher Arrangements: Access to books / reading: yes HEADSS Assessment H - Lives with grandparent(s) E - A - B student in grade 8th; wants to attend college A - Active D - During private interview, denies alcohol use, denies using marijuana and denies using any otherillicit drugs S - Is not sexually active; no history of sexually transmitted infections S - Patient is nervous/anxiousdenies depression and does not have thoughts of suicide; is not currently being treated for mental health problem Hearing / Vision Child perception of hearing: perception of hearing is normal Child perception of vision: concerns with vision (abnormal eye exam for which he was given a prescription) Psychosocial Concerns with having enough food: no Concerns about being hungry: no Tobacco users in the house: None Psychosocial concerns: None Anticipatory Guidance Discussed Home Environment: family time/ traditions and gun safety Oral Health: brush teeth twice a day, regular dental visits and floss daily Activity: cell phone safety Current Medications Current Outpatient Prescriptions Medication ??? clindamycin (CLINDAGEL) 1 % gel ??? tretinoin (RETIN-A) 0.05 % cream Current Facility-Administered Medications Medication ??? hepatitis b vaccine 10 mcg/0.5 ml (ENGERIX-B) injection 10 mcg ??? varicella virus vaccine (VARIVAX) injection 0.5 mL History Past Medical History Diagnosis Date ??? Anatomic airway obstruction ??? Seasonal allergies ??? KEYANA (obstructive sleep apnea) post T&A 2006--continued snoring sleep study 09/22/10 AHI 1.5 O2 desat 91% ??? Thyroid activity decreased ??? Allergic rhinitis 05/19/2011 ??? Torsion of testicle R testicle ??? Acne ??? Strep throat ??? Ear infection ??? Sinusitis ??? Warts Family History Problem Relation Age of Onset ??? Bleeding Disorders Neg Hx ??? Childhood Hearing Disorder Neg Hx ??? Anesthesia Reaction Maternal Grandmother ??? Learning Disability Mother and possibly in maternal grandmother ??? Acne Mother ??? Eczema Mother ??? Miscarriage Mother ??? Depression extended maternal family ??? Acne Father ??? Psoriasis Maternal Uncle ??? Heart Disease Maternal Grandfather History Social History Narrative Lives at home [...] are stupid . Never been sexually active. No history on file. Allergies Review of patient's allergies indicates no known allergies. Immunizations Immunization History Administered Date(s) Administered ??? DTaP 2000, 2000, 01/17/2001, 03/19/2006 ??? HEP A PEDS 2 DOSE 10/08/2004, 03/19/2006 ??? HEP B VACCINE, PED/ADOL 2000, 2000 ??? HIB-PRP-OMP 3 DOSE 2000, 2000 ??? Human Papilloma Virus Vaccine 07/24/2011, 09/25/2011, 08/08/2012 ??? Influenza 06/23/2011, 08/17/2013 ??? Influenza Pf (3-adult) 4 Eri 07/12/2015 ??? MENINGOCOCAL MENINGITIS 07/24/2011 ??? MMR 07/22/2001, 03/19/2006 ??? POLIO IPV 2000, 2000, 07/22/2001, 03/19/2006 ??? Pneumococcal Pcv7 Conj, Peds 2000, 2000, 01/17/2001 ??? Tdap 07/24/2011 ??? VARICELLA 07/22/2001 Up to date, age appropriate vaccines ordered today Dental Screening Does child have a Dental Home: Yes Brushing: Child brushes teeth regularly Dental evaluation within the last 12 months: Yes Patient Health Questionnaire (PHQ-9) PHQ-9 score: 0 CRAFFT Screening CRAFFT score: 0 Review of Systems Psychiatric / Behavioral: (-) suicidal ideation / attempt, (-) depression and (- ) substance abuse Objective Vitals and Growth Parameters Temp: Height: 173.5 cm (5' 8.31 ) 60%ile (Z=0.25) based on CDC 2-20 Years [id number] data using vitals from 12/04/2015. Weight: 109.997 kg (242 lb 8 oz) 100%ile (Z=2.88) based on CDC 2-20 Years yopeuf-jip-[id number] data usingvitals from 12/04/2015. BMI: 36.62 99%ile (Z=2.52) based on CDC 2-20 Years BMI-for-age data using vitals from 12/04/2015. BP: 112/62 mmHg Blood pressure percentiles are 37% systolic and 39% diastolic based on 2000 NHANES data. Blood pressure percentile targets: 90: 129/80, 95: 133/84, 99 + 5 mmH/97. Physical Exam Constitutional: Alert, active, well-developed and well-nourished. Obese Head: Normocephalic. Ears: Normal tympanic membranes. Eyes: Pupils are equal, round, and reactive to light and conjunctivae normal. Nose: Nose normal. Throat: Oropharynx clear. Neck: Normal range of motion and cervical adenopathy present. Cardiovascular: Regular rhythm. Rate: Normal Murmur: No Pulmonary: Breath sounds normal and effort normal. No wheezes. No rhonchi. No rales. Abdominal: Soft. No mass noted. Bowel sounds: Normal Musculoskeletal: Normal range of motion and normal muscle mass. Genitourinary/Anorectal: normal external genitalia, right testicle descended, left testicle descended and circumcised. Nba male genitalia: 4 Skin: Warm and moist. No rash. Neurological: Alert, normal reflexes and normal strength. Hearing / Vision Screening No exam data present Labs No results found for this visit on 12/04/15. Assessment and Plan WCC (well child check) Erick Triana is here for his adolescent well child check and has obesity and normal development. ?? Hep B and Varivax ?? Dental referral for prevention ?? Age appropriate anticipatory guidance provided ?? Return for next well child check; sooner if concerns arise. Myopia Noted on screen. Has seen eye doctor in past and prexcribed contacts. See eye doctor again. Obesity Discussed continued problem Encouraged diet and exercise. Will check levels including lipid profile, Hgb A1C, AST Orders Placed This Encounter ??? LIPID PROFILE ??? AST BLOOD ??? HEMOGLOBIN A1C ??? hepatitis b vaccine 10 mcg/0.5 ml (ENGERIX-B) injection 10 mcg ??? varicella virus vaccine (VARIVAX) injection 0.5 mL Return in about 1 year (around 12/03/2016) for well child check. John Roland MD * Trevor Ku - 12/04/2015 1:36 PM CDT Images from the original note were not included. Division of General Academic Pediatrics [address] [address] ? Name: Erick Triana Age: 15 y.o. 4 m.o. Sex: male Date: 12/04/2015 : 2000 Pediatric Clinic Well Child Visit Erick Triana is a 15 y.o. male brought here today for his 12-21 year well child visit. He is accompanied today by his patient. Subjective Persons living in home: grandparent(s) Nutrition Nutrition: Variety of foods and Soft drinks / soda Types of food: fruits, vegetables, meats and bread / cereal Fruit servings per day: 2 Vegetable servings per day: 3 Meat servings per day: 3 Soda intake: 2 cups per day # of snacks per day: 3 Urinary / GI Urine: normal urination, 5-6 times per day Enuresis: No Stool: normal, 1 - 2 times per day Sleep Sleep quality: Sleeps well, 8 hrs/night Sleep location: own bed Cell phone, TV or internet connected device in bedroom: yes Screen hrs per day: 3; has a cell phone, caregiver has access to the phone Activity Activity level: normal activity level Injuries: no Exercising >= 60 min / day: no School Grade in school: 8th Future plans: wants to attend college School performance: A - B student Homework: completes on own Teacher concerns: nervous/anxious and no concerns Concerns voiced by child: none; Does not visit school counselor Behavior Behavior concerns: no Peer involvement: socializing appropriately with peers Attention: appropriate Parent - child - sibling interaction: normal Cooperation / Oppositional behavior: normal HEADSS Assessment H - Lives with grandparent(s) E - A - B student in grade 8th; wants to attend college A - Hunting and Active D - During private interview, denies alcohol use, denies using marijuana and denies using any otherillicit drugs S - Is not sexually active S - Patient is nervous/anxiousdenies depression and does not have thoughts of suicide Hearing / Vision Parental perception of hearing: perception of hearing is normal Parental perception of vision: concerns with vision (has had abnormal vision exams in the past. Is looking into getting glasses. ) Psychosocial Concerns with having enough food: no Tobacco users in the house: None Psychosocial concerns: None Anticipatory Guidance Discussed Home Environment: family time/ traditions and gun safety Oral Health: brush teeth twice a day and regular dental visits Screen time: no/limit screen time Behavior: stress management and mental health concerns School: planning for after high school Childcare: appropriately restrained in all vehicles and avoid drugs, tobacco, and alcohol Hearing / Vision: protect hearing Current Medications Current Outpatient Prescriptions Medication ??? clindamycin (CLINDAGEL) 1 % gel ??? tretinoin (RETIN-A) 0.05 % cream ??? albuterol HFA (PROVENTIL;VENTOLIN;PROAIR) 108 (90 BASE) MCG/ACT inhaler No current facility-administered medications for this encounter. History Past Medical History Diagnosis Date ??? Anatomic airway obstruction ??? Seasonal allergies ??? KEYANA (obstructive sleep apnea) post T&A 2006--continued snoring sleep study 09/22/10 AHI 1.5 O2 desat 91% ??? Thyroid activity decreased ??? Allergic rhinitis 05/19/2011 ??? Torsion of testicle R testicle ??? Acne ??? Strep throat ??? Ear infection ??? Sinusitis ??? Warts Family History Problem Relation Age of Onset ??? Bleeding Disorders Neg Hx ??? Childhood Hearing Disorder Neg Hx ??? Anesthesia Reaction Maternal Grandmother ??? Learning Disability Mother and possibly in maternal grandmother ??? Acne Mother ??? Eczema Mother ??? Miscarriage Mother ??? Depression extended maternal family ??? Acne Father ??? Psoriasis Maternal Uncle ??? Heart Disease Maternal Grandfather History Social History Narrative Lives at home [...] are stupid . Never been sexually active. No history on file. Allergies Review of patient's allergies indicates no known allergies. Immunizations Immunization History Administered Date(s) Administered ??? DTaP 2000, 2000, 01/17/2001, 03/19/2006 ??? HEP A PEDS 2 DOSE 10/08/2004, 03/19/2006 ??? HEP B VACCINE, PED/ADOL 2000, 2000 ??? HIB-PRP-OMP 3 DOSE 2000, 2000 ??? Human Papilloma Virus Vaccine 07/24/2011, 09/25/2011, 08/08/2012 ??? Influenza 06/23/2011, 08/17/2013 ??? Influenza Pf (3-adult) 4 Eri 07/12/2015 ??? MENINGOCOCAL MENINGITIS 07/24/2011 ??? MMR 07/22/2001, 03/19/2006 ??? POLIO IPV 2000, 2000, 07/22/2001, 03/19/2006 ??? Pneumococcal Pcv7 Conj, Peds 2000, 2000, 01/17/2001 ??? Tdap 07/24/2011 ??? VARICELLA 07/22/2001 Up to date Dental Screening Does child have a Dental Home: Yes Brushing: Child brushes teeth regularly Flossing: Child flosses teeth regularly Dental evaluation within the last 12 months: Yes Fluoride varnish applied this visit: No Review of Systems Constitutional: (-) fever, (-) fatigue, (-) weight loss and (-) nausea Eyes: (+) eye itching (seasonal allergies) (-) eye discharge ENT: (+) rhinorrhea (seasonal allergies) and (+) sneezing (seasonal allergies) (-) hearing loss, (-) mouth sores, (-) dysphagia and (-) drooling Cardiovascular: (-) chest pain and (-) palpitations Respiratory: (-) cough, (-) shortness of breath and (-) wheezing Gastrointestinal: (-) nausea, (-) diarrhea, (-) vomiting and (-) constipation Genitourinary: (-) bladder incontinence and (-) dysuria Musculoskeletal: (-) joint tenderness and (-) muscle weakness Integumentary / Skin: (-) rash and (-) eczema Neurological: (-) headache, (-) hypotonia and (-) seizures Psychiatric / Behavioral: (+) anxiety (-) suicidal ideation / attempt, (-) depression and (-) substance abuse Endocrine: (-) excessive appetite, (-) cold intolerance and (-) polydipsia Hematologic / Lymphatic: (-) adenopathy Allergy / Immunology: (+) seasonal allergies Objective Vitals and Growth Parameters Temp: Height: 173.5 cm (5' 8.31 ) 60%ile (Z=0.25) based on CDC 2-20 Years trglbro-gep-[id number] data using vitals from 12/04/2015. Weight: 109.997 kg (242 lb 8 oz) 100%ile (Z=2.88) based on CDC 2-20 Years yostag-jbf-ydh data usingvitals from 12/04/2015. BMI: 36.62 99%ile (Z=2.52) based on CDC 2-20 Years BMI-for-age data using vitals from 12/04/2015. BP: 112/62 mmHg Blood pressure percentiles are 37% systolic and 39% diastolic based on 2000 NHANES data. Blood pressure percentile targets: 90: 129/80, 95: 133/84, 99 + 5 mmH/97. Physical Exam Constitutional: Alert and active. Head: Normocephalic. Ears: Normal tympanic membranes. Nose: Nose normal. Throat: Oropharynx clear. Neck: No neck mass. Cardiovascular: Regular rhythm. Pulmonary: Breath sounds normal. Abdominal: Soft. Musculoskeletal: Normal range of motion. Skin: Acne. Neurological: Alert. Pt also had possible acanthosis nigricans around neck as possible consequence of obesity. Hearing / Vision Screening No exam data present Labs No results found for this visit on 12/04/15. Assessment and Plan Erick Triana is a 15 y.o. Male who came in with his mother for a well child check up and physicalfor school. His PE was unremarkable aside from BMI characteristic for obesity. Obesity: Pt was advised to stop drinking sugary drinks and to change snacks to a healthier alternative. Alsoadvised to begin exercising 5-6 times a week at home gym for at least 30 minutes. No orders of the defined types were placed in this encounter. No Follow-up on file. Trevor Ku Associated attestation - John Roland MD - 12/04/2015 4:11 PM CDT For educational purposes only. Discussed with MS3. See attending note documented in this encounter Plan of Treatment Not on file documented as of this encounter Visit Diagnoses Diagnosis Encounter for routine child health examination with abnormal findings- Primary Routine or child health check Need for vaccination Need for prophylactic vaccination and inoculation against unspecified single disease * Assessment & Plan Note - John Roland MD - 12/04/2015 2:29 PM CDT Associated Problem(s): Obesity Discussed continued problem Encouraged diet and exercise. Will check levels including lipid profile, Hgb A1C, AST * Assessment & Plan Note - John Roland MD - 12/04/2015 2:27 PM CDT Associated Problem(s): Myopia Noted on screen. Has seen eye doctor in past and prexcribed contacts. See eye doctor again. * Assessment & Plan Note - John Roland MD - 12/04/2015 2:26 PM CDT Associated Problem(s): WCC (well child check) Erick Triana is here for his adolescent well child check and has obesity and normal development. ?? Hep B and Varivax ?? Dental referral for prevention ?? Age appropriate anticipatory guidance provided ?? Return for next well child check; sooner if concerns arise. documented in this encounter Care Teams Insurance Service Representative Relationship Specialty Start Date End Date Labarge, Godfrey Zapata MD [address] [place] [address] PCP - General Pediatrics 05/01/14 Dipika Reddy MD [facility] [place] [address] Resident Student Resident 11/27/15 documented as of this encounter
--- OUTSIDE RECORDS SUMMARY | 2024-08-06 19:03 | XMS_ITS | Encounter Summary ---
Author Organization [facility] Address [address] [place] [address] Care Team Providers Care Licensing Specialist Name Role Phone Marisol Roblero MD Primary Care Provider [phone] Encounter Details Date Type Department Care Team (Latest Contact Info) Description 02/12/2011 1:59 PM CDT - 02/12/2011 11:59 PM CDT Hospital Encounter [facility] - Sleep Services [address] [place] [address] Daija Lewis MD [address] [place] [address] Sleep Lab Discharge Disposition: Home or Self [...] MG tablet Take 10 mg by mouth once daily. 03/05/2011 ferrous sulfate 300 (60 FE) MG tablet Take 300 mg by mouth once daily. 05/05/2011 documented as of this encounter Miscellaneous Notes * Miscellaneous Scans - Document, Scanned - 03/31/2011 8:50 AM CDT * Miscellaneous Scans - Document, Scanned - 02/16/2011 10:08 AM CDT documented in this encounter Plan of Treatment Not on file documented as of this encounter Visit Diagnoses Not on filedocumented in this encounter Care Teams Licensing Specialist Relationship Specialty Start Date End Date Marisol Roblero MD [address] [place] [id number] PCP - General 11/13/10 04/30/11 documented as of this encounter
--- OUTSIDE RECORDS SUMMARY | 2024-08-06 19:03 | XMS_ITS | Encounter Summary ---
Author Organization [facility] Address [address] [place] [address] Care Team Providers Care Stock Wetter Name Role Phone Sera Leonard DO Unavailable [phone] Godfrey Curry MD Primary Care Provider [phone] Reason for Visit * Reason Comments Pain Flank Pt with left-sided b ack pain; pt points to upper back and flank area as pain sites. Pain started tonight. Pt denies fevers. Grandfather concerned about musculoskeletal pain d/t pt bowls every Wednesday. Blood in urine Pt noticed blood in urine tonight. Denies pain with urination. Encounter Details Date Type Department Care Team (Late st Contact Info) Description 10/02/2014 10:37 PM FINANCIAL REPORTING MANAGER - 10/03/2014 1:33 AM FINANCIAL REPORTING MANAGER Emergency ER at [address] [address] Marquise Wu MD No Updated information Abdominal pain Discharge Disposition: Home or Self Care Social [...] Sign Reading Time Taken Comments Blood Pressure 125/83 10/02/2014 9:59 PM FINANCIAL REPORTING MANAGER Pulse 64 10/03/2014 1:25 AM FINANCIAL REPORTING MANAGER Temperature 36.3 ??C (97.4 ??F) 10/03/2014 1:25 AM CS T Respiratory Rate 16 10/03/2014 1:25 AM FINANCIAL REPORTING MANAGER Oxygen Saturation 99% 10/02/2014 9:59 PM FINANCIAL REPORTING MANAGER Inhaled Oxygen Concentration - - Weight 99.2 kg (218 lb 11.1 oz) 10/02/2014 9:59 PM FINANCIAL REPORTING MANAGER Height - - Body Mass Index - - documented in this encounter Discharge Instructions * Discharge Instructions* Marquise Wu MD - 10/03/2014 1:24 AM FINANCIAL REPORTING MANAGER Images from the original note were not included. Abdominal Pain, Child Your child's exam may not have shown the exact reason for his/her abdominal pain. Many cases can beobserved and treated at home. Sometimes, a child's abdominal pain may appear to be a minor condition; but may become more serious over time. Since there are many different causes of abdominal pain, another checkup and more tests may be needed. It is very important to follow up for lasting (persistent) or worsening symptoms. One of the many possible causes of abdominal pain in any person who has not had their appendix removed is Acute Appendicitis. Appendicitis is often very difficult to diagnosis. Normal blood tests, urine tests, CT scan, and even ultrasound can not ensure there is not early appendicitis or another cause of abdominal pain. Sometimes only the changes which occur over time will allow appendicitis and other causes of abdominal pain to be found. Other potential problems that may require surgery may also take time to become more clear. Because of this, it is important you follow all of the instructions below. HOME CARE INSTRUCTIONS ?? Do not give laxatives unless directed by your caregiver. ?? Give pain medication only if directed by your caregiver. ?? Start your child off with a clear liquid diet - broth or water for as long as directed by your caregiver. You may then slowly move to a bland diet as can be handled by your child. SEEK IMMEDIATE MEDICAL CARE IF: ?? The pain does not go away or the abdominal pain increases. ?? The pain stays in one portion of the belly (abdomen). Pain on the right side could be appendicitis. ?? An oral temperature above 102?? F (38.9?? C) develops. ?? Repeated vomiting occurs. ?? Blood is being passed in stools (red, dark red, or black). ?? There is persistent vomiting for 24 hours (cannot keep anything down) or blood is vomited. ?? There is a swollen or bloated abdomen. ?? Dizziness develops. ?? Your child pushes your hand away or screams when their belly is touched. ?? You notice extreme irritability in infants or weakness in older children. ?? Your child develops new or severe problems or becomes dehydrated. Signs of this include: ?? No wet diaper in 4 to 5 hours in an . ?? No urine output in 6 to 8 hours in an older child. ?? Small amounts of dark urine. ?? Increased drowsiness. ?? The child is too sleepy to eat. ?? Dry mouth and lips or no saliva or tears. ?? Excessive thirst. ?? Your child's finger does not pink-up right away after squeezing. MAKE SURE YOU: ?? Understand these instructions. ?? Will watch your condition. ?? Will get help right away if you are not doing well or get worse. Document Released: 09/23/2006 Document Revised: 10/10/2012 Document Reviewed: 08/17/2011 ExitCare?? Patient Information ??2013 [employer]. Hematuria, Child Hematuria is when blood is found in the urine. It may have been found during a routine exam of the urine under a microscope. You may also be able to see blood in the urine (red or brown color). Most causes of microscopic hematuria (where the blood can only be seen if the urine is examined under a microscope) are benign (not of concern). At this point, the reason for your child's hematuria is not clear. CAUSES Blood in the urine can come from any part of the urinary system. Blood can come from the kidneys tothe tube draining the urine out of the bladder (urethra). Some of the common causes of blood in theurine are: ?? Infection of the urinary tract. ?? Irritation of the urethra or vagina. ?? Injury. ?? Kidney stones or high calcium levels in the urine. ?? Recent vigorous exercise. ?? Inherited problems. ?? Blood disease. More serious problems are much less common or rare. SYMPTOMS Many children with blood in the urine have no symptoms at all. If your child has symptoms, they canvary a lot depending upon the cause. A couple of common examples are: ?? If there is a urinary infection, there may be: ?? Belly pain. ?? Frequent urination (including getting up at night to go to the bathroom). ?? Fevers. ?? Feeling sick to the stomach. ?? Painful urination. ?? If there is a problem with the immune system that affects the kidneys, there may be: ?? Joint pains. ?? Skin rashes. ?? Low energy. ?? Fevers. DIAGNOSIS If your child has no symptoms and the blood is only seen under the microscope, your child's caregiver may choose to repeat the urine test and repeat the exam before further testing. If tests are ordered, they may include one or more of the following: ?? Urine culture. ?? Calcium level in the urine. ?? Blood tests that include tests of kidney function. ?? Ultrasound of the kidneys and bladder. ?? CAT scan of the kidneys. Finding out the results of your test If tests have been ordered, the results may not be back as yet. If your test results are not back during the visit, make an appointment with your caregiver to find out the results. Do not assume everything is normal if you have not heard from your caregiver or the medical facility. It is important for you to follow up on all of your test results. TREATMENT Treatment depends on the problem that causes the blood. If a child has no symptoms and the blood isonly a tiny amount that can only be seen under the microscope, your caregiver may not recommend anytreatment. If a problem is found in a part of the urinary tract, the treatment will vary depending on what problem is found. Your caregiver will discuss this with you. SEEK MEDICAL CARE IF: ?? Your child has pain or frequent urination. ?? Your child has urinary accidents. ?? Your child develops a fever. ?? Your child has abdominal pain. ?? Your child has side or back pain. ?? Your child has a rash. ?? Your child develops bruising or bleeding. ?? Your child has joint pain or swelling. ?? Your child has swelling of the face, belly or legs. ?? Your child develops a headache. ?? Your child has obvious blood (red or brown color) in the urine if not seen before. SEEK IMMEDIATE MEDICAL CARE IF: ?? Your child has uncontrolled bleeding. ?? Your child develops shortness of breath. ?? Your child has an unexplained oral temperature above 102?? F (38.9?? C). MAKE SURE YOU: ?? Understand these instructions. ?? Will watch your condition. ?? Will get help right away if you are not doing well or get worse. Document Released: 04/13/2002 Document Revised: 10/10/2012 Document Reviewed: 03/12/2009 ExitCare?? Patient Information ??2013 [employer]. NCIAL REPORTING MANAGER documented in this encounter Medications at Time [...] fluticasone propionate (FLONASE) 50 MCG/ACT nasal spray Accident 2 Sprays into each nostril once daily. 1 Bottle 0 04/17/2014 10/30/2014 loratadine (CLARITIN) 10 MG tabletIndications:Al lergic rhinitis Take 1 Tab by mouth once daily. 30 Tab 3 05/07/2014 10/30/2014 documented as of this encounter ED Notes * Xiomy Childs RN - 10/03/2014 1:40 AM CST Pt alert, NAD noted. Discharge instructions reviewed with dad. Follow up with PMD reviewed. Opportunity for questions provided. Mo states understanding at this time\ NCIAL REPORTING MANAGER * Senthil Baehna, RN - 10/03/2014 12:30 AM CST PT labs result shows trace blood in urine at this time. PT described possible clot at home. PT to get abdominal xray per MD Y * Marquise Wu MD - 10/03/2014 12:08 AM CST EMERGENCY DEPARTMENT 10/03/2014 Dear Doctor, We had the pleasure of caring for your patient, Erick Triana in our emergency department on 10/03/2014. A note from the provider(s) who cared for your patient is attached. Should you wish to access any laboratory results, please call . Should you wish to access any radiology results, please call , option 3. In addition, you can access patient information 24 hours a day, from any computer, through [employer], the online version of our electronic medical record. If you would like to use this service, please call Cherise Mejias, Connectivity Coordinator, at . We appreciate the opportunity to care for your patients. If you would like additional information, please call the emergency department directly at . Sincerely, Marquise Wu MD Division of Emergency Medicine [facility], [place] [facility] [place] Provider contact with the patient: 10/03/2014 00:08 Erick Triana [id number] [facility] EMERGENCY DEPARTMENT History Chief Complaint Patient presents with ??? Pain Flank Pt with left-sided back pain; pt points to upper back and flank area as pain sites. Pain started tonight. Pt denies fevers. Grandfather concerned about musculoskeletal pain d/t pt bowls every Wednesday. ??? Blood in urine Pt noticed blood in urine tonight. Denies pain with urination. HPI Comments: 14 yr old male with gross red urine once today after urination and has left sided flank pain now. Patient reports that he didn't have any symptoms prior to gross red color urine when hedidn't have pain. He took tylenol which helped his pain to some extent. Denies constipation. Has pain in the left flank and left renal angle. No fever. No vomiting, no diarrhea. No URI, no sorethroat. No other symptoms. Skips breakfast and lunch and eats snacks and eats huge dinner. Healthy in past Family hx Mom had kidney stones in the past. Past Medical History Diagnosis Date ??? Anatomic airway obstruction ??? Seasonal allergies ??? KEYANA (obstructive sleep apnea) post T&A 2006--continued snoring sleep study 09/22/10 AHI 1.5 O2 desat 91% ??? Thyroid activity decreased ??? Allergic rhinitis 05/19/2011 ??? Torsion of testicle R testicle Past Surgical History Procedure Laterality Date ??? Tonsillectomy and adenoidectomy 04/01/07 ??? Adenoidectomy ??? Tonsillectomy History Social History ??? Marital Status: Single Spouse Name: N/A Number of Children: N/A ??? Years of Education: N/A Occupational History ??? Not on file. Social History Main Topics ??? Smoking status: Never Smoker ??? Smokeless tobacco: Not on file ??? Alcohol Use: No ??? Drug Use: No ??? Sexual Activity: No Other Topics Concern ??? Not on [...] Outpatient Prescriptions Medication Sig Dispense Refill ??? loratadine (CLARITIN) 10 MG tablet Take 1 Tab by mouth once daily. 30 Tab 3 ??? cetirizine (ZYRTEC) 10 MG chew tablet Take 1 Tab by mouth once daily. 30 Tab 0 ??? fluticasone propionate (FLONASE) 50 MCG/ACT nasal spray Accident 2 Sprays into each nostril once daily. 1 Bottle 0 ??? albuterol HFA (PROVENTIL;VENTOLIN;PROAIR) 108 (90 BASE) MCG/ACT inhaler 2 puffs every 4 hours while awake for the next 48 hours then as needed for cough. 1 Inhaler 5 ??? acetaminophen (TYLENOL) 500 MG tablet Take 1 Tab by mouth every 4 hours as needed for Fever or Pain. Maximum allowable Acetaminophen amount = 4 Grams (4000 mg) / 24 hours. 20 Tab 0 Review of Systems Review of Systems All other systems reviewed and are negative. BP 125/83 Pulse 88 Temp(Src) 98.2 ??F Resp 24 Wt 99.2 kg (218 lb 11.1 oz) SpO2 99% Physical Exam Physical Exam Constitutional: He is oriented to person, place, and time. He appears well- developed and well-nourished. No distress. obese HENT: Mouth/Throat: Oropharynx is clear and moist. Eyes: Conjunctivae are normal. Neck: Normal range of motion. Neck supple. Cardiovascular: Normal rate. No murmur heard. Pulmonary/Chest: Effort normal and breath sounds normal. No respiratory distress. He has no wheezes. He has no rales. Abdominal: Soft. He exhibits no distension. There is tenderness. Mild tenderness left mid quadrant. Points to left CVA pain, but no specific tenderness. Neurological: He is alert and oriented to person, place, and time. Skin: Skin is warm. He is not diaphoretic. Psychiatric: His behavior is normal. Nursing note and vitals reviewed. Procedures Procedures ECG Interpretation ECG Interpretation Lab/SPO2 Interpretation Progress Notes ED Course UA done which is negative Recent Results (from the past 24 hour(s)) URINALYSIS ROUTINE AUTO Collection Time 10/02/14 11:20 PM Result Value Ref Range Color UA Yellow Straw, Yellow, Dark Yellow Clarity UA Clear Specific [place] UA 1.015 1.005-1.030 pH UA 6.0 5.0-8.0 pH Protein UA Negative Negative Blood UA Trace (*) Negative Leukocyte UA Negative Negative Nitrite UA Negative Negative Glucose UA Negative Negative Ketone UA Negative Negative Bili UA Negative Negative Urobilinogen UA 0.2 0.1-1.0 EU/dL URINALYSIS MICROSCOPIC ONLY Collection Time 10/02/14 11:20 PM Result Value Ref Range RBC UA 2-5 0-2, 2-5 # /hpf WBC UA 0-2 0-2, 2-5 # /hpf Bacteria UA None Seen None Seen, Trace Epithelial Cell UA 0-2 0-2, 2-5 AXR done - some retained stool, no obstruction noted. No other abn noted. Patient after AXR reportsthat he has no abdominal pain now. Symptoms likely due to GERD vs mild gastritis, advised to FU with PCP. Adv to eat healthy, not to skip meals. Adv to try maalox OTC for abdominal pain. Adv to FU with PCP for repeat urine check since patient reported large blood in urine today. Medical Decision Making I have personally seen and examined this patient. I have fully participated in the care of this patient. I have reviewed all pertinent clinical information, including history, physical exam and plan.I have reviewed the nurses notes. I have reviewed available labs and radiographic studies. Clinical Impression Final diagnoses: Abdominal pain abnormal urine color history NCIAL REPORTING MANAGER * Senthil Bahena, RN - 10/02/2014 10:30 PM CST PT in room with father sitting on bed. No distress noted. No needs at this time. PT reporting tylenol working well from triage NCIAL REPORTING MANAGER documented in this encounter Plan of Treatment Not on file documented as of this encounter Procedures Procedure Name Priority Date/Time Associated Diagnosis Comments XR ABD OBSTRUCTION SERIES 2VW STAT 10/03/2014 12:45 AM FINANCIAL REPORTING MANAGER Abdominal pain URINALYSIS REFLEX TO MICROSCOPIC NO CULTURE STAT 10/02/2014 11:20 PM FINANCIAL REPORTING MANAGER URINE MICROSCOPIC ONLY STAT 10/02/2014 11:20 PM FINANCIAL REPORTING MANAGER documented in this encounter Results * XR ABD OBSTR SERIES (10/03/2014 12:45 AM FINANCIAL REPORTING MANAGER) Anatomical Region Laterality Modality Abdomen Radiographic Christine ging 10/03/2014 7:32 AM FINANCIAL REPORTING MANAGER Impressions 10/03/2014 7:33 AM FINANCIAL REPORTING MANAGER Retained stool. Narrative 10/03/2014 7:33 AM FINANCIAL REPORTING MANAGER Exam: Abdomen obstruction series History: 14-year-old male [...] Wu MD DIAGNOSTIC IMAGING O RDERABLES * URINALYSIS MICROSCOPIC ONLY (10/02/2014 11:20 PM FINANCIAL REPORTING MANAGER) RBC UA 2-5 0-2, 2-5 # /hpf 10/03/2014 12:13 AM [facility] WBC UA 0-2 0-2, 2-5 # /hpf 10/03/2014 12:13 AM [facility] Bacteria UA None Seen None Seen, Trace 10/03/2014 12:13 AM [facility] Epithelial Cell UA 0-2 0-2, 2-5 10/03/2014 12:13 AM [facility] Urine URINE SPECIMEN OBTAINED BY CLEAN CATCH PROCEDURE / Unknown 10/02/2014 11:20 PM FINANCIAL REPORTING MANAGER 10/02/2014 11:23 PM FINANCIAL REPORTING MANAGER Jazmin Mathews MD LAB - URINALYSIS ORD ERABLES [facility] [address] [place] [id number] * (ABNORMAL) URINALYSIS ROUTINE AUTO (10/02/2014 11:20 PM FINANCIAL REPORTING MANAGER) Color UA Yellow Straw, Yellow, Dark Yellow 10/02/2014 11:28 PM [facility] Clarity UA Clear 10/02/2014 11:28 PM [facility] Specific [place] UA 1.015 1.005 - 1.030 10/02/2014 11:28 PM [facility] pH UA 6.0 5.0 - 8.0 pH 10/02/2014 11:28 PM [facility] Protein UA Negative Negative 10/02/2014 11:28 PM [facility] Blood UA Trace(A) Negative 10/02/2014 11:28 PM [facility] Leukocyte UA Negative Negative 10/02/2014 11:28 PM [facility] Nitrite UA Negative Negative 10/02/2014 11:28 PM [facility] Glucose UA Negative Negative 10/02/2014 11:28 PM [facility] Ketone UA Negative Negative 10/02/2014 11:28 PM [facility] Bilirubin UA Negative Negative 10/02/2014 11:28 PM [facility] Urobilinogen UA 0.2 0.1 - 1.0 EU/dL 10/02/2014 11:28 PM [facility] Urine URINE SPECIMEN OBTAINED BY CLEAN CATCH PROCEDURE / Unknown 10/02/2014 11:20 PM FINANCIAL REPORTING MANAGER 10/02/2014 11:23 PM FINANCIAL REPORTING MANAGER Marquise Wu MD LAB - URINALYSIS ORD ERABLES Performing Organization Address City/State/[facility] Co de Phone Number [facility] [place] [address] documented in this encounter Visit Diagnoses Diagnosis Hematuria, unspecified- Primary Abdominal pain documented in this encounter Administered Medications Inactive Administered Medications - up to 3 most recent administrations Medication Order MAR Action Action Date Dose Rate Site acetaminophen (TYLENOL) tablet 1,000 mg 1,000 mg, Oral, ONCE, 1 dose, On Wed10/02/14 at 2230 $ Given 10/02/2014 10:01 PM FINANCIAL REPORTING MANAGER 1,000 mg documented in this encounter Active and Recently Administered Medications Times are shown in FINANCIAL REPORTING MANAGER. Scheduled Medication Order 10/01/2014 10/02/2014 10/03/2014 acetaminophen (TYLENOL) tablet 1,000 mg (COMPLETED) 1,000 mg, Oral, ONCE, 1 dose, On Wed10/02/14 at 2230 2201 ($ Given - Provider: Shital Hudson RN) documented in this encounter Care Teams Stock Wetter Relationship Specialty Start Date End Date LabargeGodfrey MD [address] [place] [address] PCP - General Pediatrics 05/01/14 Sera Leonard DO Resident Pediatrics 09/27/13 11/04/14 documented as of this encounter
--- OUTSIDE RECORDS SUMMARY | 2024-08-06 19:03 | XMS_ITS | Encounter Summary ---
Author Organization [facility] Address [address] [place] [address] Care Team Providers Care Sales Associate Key Holder Name Role Phone Marisol Roblero MD Primary Care Provider [phone] Reason for Visit * Reason Comments Sleep Apnea f/u appt Encounter Details Date Type Department Care Team (Latest Contact Info) Description 04/17/2011 9:30 AM CDT - 04/17/2011 11:59 PM CDT Hospital Encounter [facility] - Sleep [address] [place] [address] Discharge Disposition: Home or Self Care Social [...] Sign Reading Time Taken Comments Blood Pressure 104/60 04/17/2011 9:49 AM CDT Pulse 62 04/17/2011 9:49 AM CDT Temperature - - Respiratory Rate 20 04/17/2011 9:49 AM CDT Oxygen Saturation 97% 04/17/2011 9:49 AM CDT Inhaled Oxygen Concentration - - Weight 67.9 kg (149 lb 12.8 oz) 04/17/2011 9:49 AM CDT Height 150.9 cm (4' 11.41 ) 04/17/2011 9:49 AM C DT Body Mass Index 29.84 04/17/2011 9:49 AM CDT Body Mass Index Percentile 99.21% 04/17/2011 9:4 9 AM CDT Growth Chart: [facility] (Boys, 2-2 0 Years) documented in this encounter Discharge Instructions * Patient Instructions* Daija Lewis MD - 04/17/2011 10:16 AM CDT 1. Check Ferritin today 2. Continue Nasal Rinse 3. Improved sleep symptoms. 4. Miralax as needed for constipation 5. Follow up in 3 months. documented in this encounter Medications at Time of Discharge Medication Sig Dispensed Refills Start Date End Date ferrous sulfate 300 (60 FE) MG tablet Take 300 mg by mouth once daily. 05/05/2011 documented as of this encounter Progress Notes * Dajia Lewis MD - 05/06/2011 4:06 AM CDT [facility] NAME: ERICK TRIANA : 2000 UNIT #: [id number] DATE SEEN: 04/17/2011 ATTENDING PHYSICIAN: DAIJA LEWIS MD Dear doctor, We had the pleasure of seeing Erick Triana, a 10-year-old male, at the Pediatric Sleep Disorders Clinic at [facility] for a followup of restless leg syndrome and difficulty with sleep maintenance. He was accompanied to this visit by his mother and grandmother. He has been taking iron therapy, ferrous sulfate 325 milligrams p.o. daily for resless leg symptoms, and has had improved sleep since taking iron. He has no difficulty falling asleep and staying asleep. He goes to sleep around 9:30 p.m. and sleeps until 8:00 a.m. He is feeling rested during the daywithout napping during the day which was occurring on his initial visit here. He has also had no sleep walking, sleep talking, or nightmares. He does have behavioral problems and difficulty in schoolperformance and is been followed by our colleague, Dr. Jiménez, for family therapy. They do feel like this is helping them work through their problems, and they would like to continue this family therapy. He also had a history of snoring in the past which has resolved. He has been advised to use nasal saline rinses as needed for nasal congestion. He has a calm wind down routine lasting approximately 45 minutes and has no difficulty falling asleep. I reviewed the past medical, surgical, social, family history with no new updates since his last visit. His school performance is suffering. He has transferred back to a previous school in which he has a reputation of being a troublesome child in terms of behavior. ALLERGIES: No known drug allergies. His ferritin in October 2010 was 61. EXAM: His height is 150 cm. Weight is 149 pounds. Blood pressure is 104/60. Pulse is 62, respiratory rate 20, oxygen saturation 97%. General: He is alert, oriented, well-appearing. Cardiovascular: Regular rate and rhythm. No murmurs, rubs, or gallops. Lungs: Clear to auscultation bilaterally. Head and face: No lesions. Symmetrical. Eyes: Extraocular muscles are intact. Ears: Normal pinna shape and position. He has normal external nose, mucous membranes, and septum. Oral cavity: Tonsils are absent. Mallampati score 4. Neck is supple without tenderness or crepitus. No palpable adenopathy. IMPRESSION AND PLAN: 1. Restless leg syndrome. Erick is on ferrous sulfate. We will check his ferritin today and will discontinue it if the levels are maintained adequately above 60. His sleep feels more settled, and he has no complaints of leg pain. 2. Sleep hygiene and routine have improved. Regarding borderline obstructive sleep apnea, there are no more symptoms of snoring with nasal rinses that were used. He should use rinses p.r.n. as needed if the symptoms should recur. He will continue with monitoring diet and weight management. 4. He will follow up with Dr. Jiménez regarding school behavior and general behavior. Thank you for allowing me to participate in the care of your patient. Please call me with any questions at [phone]. Dictated By: DAIJA LEWIS MD MM/Patricia JOB ID: [id number] cc: MARISOL ROBLERO MD * Daija Lewis MD - 05/05/2011 6:00 PM CDT Discussed with Erick's family stopping Iron therapy after ferritin results of 124. Erick's restlessness symptoms are improved. We will follow up in 3 months as needed. documented in this encounter Miscellaneous Notes * Miscellaneous Scans - Document, Scanned - 06/04/2011 7:13 PM CDT documented in this encounter Plan of Treatment Not on file documented as of this encounter Procedures Procedure Name Priority Date/Time Associated Diagnosis Comments FERRITIN Routine 04/17/2011 10:55 AM CDT Restless legs syndrome (RLS) documented in this encounter Results * (ABNORMAL) FERRITIN (04/17/2011 10:55 AM CDT) Ferritin 124(H) 10 - 105 ng/ml [facility] BLOOD SPECIMEN / Unknown 04/17/2011 10:55 AM CDT 04/17/2011 10:59 AM CDT Daija Lewis MD LAB - CHEMISTRY [facility]IL[facility] Organization Address City/State/ZIP Co de Phone Number [facility] [address] [place] [address] documented in this encounter Visit Diagnoses Diagnosis Restless legs syndrome (RLS) documented in this encounter Care Teams Sales Associate Key Holder Relationship Specialty Start Date End Date Marisol Roblero MD [address] [place] [phone] PCP - General 11/13/10 04/30/11 documented as of this encounter
--- OUTSIDE RECORDS SUMMARY | 2024-08-06 19:03 | XMS_ITS | Encounter Summary ---
Author Organization [facility] Address [address] [place] [address] Care Team Providers Care Industrial Sociologist Name Role Phone Godfrey Curry MD Primary Care Provider [phone] Dipika Reddy MD Unavailable [phone] Reason for Visit * Reason Onset Date Comments MEDICATION REFILL 11/06/2016 Encounter Details Date Type Department Care Team (Late st Contact Info) Description 11/06/2016 Refill [facility] - Dermatology [address] [place] [address] Rani Solitario MD [address] [facility] [address] [place] [address] MEDICATION REFILL Social History Tobacco Use Types [...] encounter Miscellaneous Notes * Telephone Encounter - Rach Monterroso RN - 11/06/2016 10:49 AM CDT 11/06/2016 Received fax refill request from patient's pharmacy on 11/06/16 for: doxycycline hyclate 50 mg capsule; quantity dispensed: 60 caps. Last filled: 10/14/16. Per last visit AVS 01/20/2016: Name Apply AM AM AM Apply PM Additional Instructions tretinoin 0.05% cream X Wait at least 20 minutes after washing your face. Apply sparingly. If irritation occurs, use a moisturizer-best applied immediately after washing. Use at least 20 gm/month foryour face. benzoyl peroxide* X Buy this over the counter clindamycin gel X doxycycline X X Take 50mg twice daily RF's not provided at . Contacted mom who also requested RF's on clindamycin gel & tretinoin cream. Future Appointments Date Time Provider Department Center 01/15/2017 1:00 PM Elena Eugene, [facility] Refills have been authorized per prior written physician order; ePrescribed to pharmacy on 11/06/16 w/2 RF's on doxy, 1 RF each topical. documented in this encounter Plan of Treatment Not on file documented as of this encounter Visit Diagnoses Diagnosis Acne vulgaris- Primary Other acne documented in this encounter Care Teams Industrial Sociologist Relationship Specialty Start Date End Date Godfrey Curry MD [address] [place] [phone] PCP - General Pediatrics 05/01/14 Dipika Reddy MD [address] [place] [phone] Resident Student Resident 11/27/15 documented as of this encounter
--- OUTSIDE RECORDS SUMMARY | 2024-08-06 19:03 | XMS_ITS | Encounter Summary ---
Author Organization [facility] Address [address] [place] [address] Care Team Providers Care Cyber Security Manager Name Role Phone Sandra Nettles MD Primary Care Provider [phone] Encounter Details Date Type Department Care Team (Latest Contact Info) Description 05/01/2011 12:01 AM CDT - 05/01/2011 11:59 PM CDT Hospital Encounter [facility] - Weight Management [address] [place] [phone] Prabha Apodaca, PB/LD [address] [place] [phone] Weight Management Discharge Disposition: Home or Self Care Social [...] Sign Reading Time Taken Comments Blood Pressure 90/66 05/01/2011 2:34 PM CDT Pulse - - Temperature - - Respiratory Rate - - Oxygen Saturation - - Inhaled Oxygen Concentration - - Weight 68.2 kg (150 lb 5.7 oz) 05/01/2011 2:34 P M CDT Height 148.3 cm (4' 10.39 ) 05/01/2011 2:34 PM C DT Body Mass Index 31.01 05/01/2011 2:34 PM CDT Body Mass Index Percentile 99.50% 05/01/2011 2:3 4 PM CDT Growth Chart: [facility] (Boys, 2-2 0 Years) documented in this encounter Discharge Instructions * Discharge Instructions* Xavier Schaffer RD/LD - 05/01/2011 3:16 PM CDT - Switch to Sugar free drinks (substitute SF sarai aid for regular sarai aid) - Switch to 1% or skim milk - Start having breakfast everyday - Bring school lunch at least one day a week Follow-up with weight management dietitian in 1 month. documented in this encounter Medications at Time of Discharge Medication Sig Dispensed Refills Start Date End Date ferrous sulfate 300 (60 FE) MG tablet Take 300 mg by mouth once daily. 05/05/2011 documented as of this encounter Progress Notes * Xavier Schaffer RD/LD - 05/01/2011 2:45 PM CDT NUTRITION ASSESSMENT NOTE Erick Triana is a 10 y.o. 9 m.o. male. He presents for his 2 week follow up with the [facility] accompanied by his mother. Past Medical History Diagnosis Date ??? Anatomic airway obstruction ??? Seasonal allergies ??? KEYANA (obstructive sleep apnea) post T&A 2006--continued snoring sleep study 09/22/10 AHI 1.5 O2 desat 91% ??? Thyroid activity decreased Weight: 68.2 kg (150 lb 5.7 oz) 99.45% of growth percentile based on ygidyk-dvv-pky. Height: 148.3 cm (4' 10.39 ) 79.90% of growth percentile based on yxashni-dko-wzp. Body mass index is 31.01 kg/(m^2). 99.19% of growth percentile based on BMI-for-age. Assessment: Erick has lost 1.9lbs since his last visit. Since that last encounter Erick has cut out all soda and sweets from his diet, and he has dramatically reduced the amount of fried foods he is getting which are primarily coming from school. The family hasn't switched to 1% milk and is having sarai-aid fordinner almost every night. Dinner is served at 4-5pm and Erick reports sometimes his father goes out to a fast food for an additional meal and Erick will sometimes have something from there as well. Erick reports that in the morning he is not hungry and he doesn't like what is served for school lunch. Also, in today's session there was a lot of talk about the fad diets that the family members have/are following including the HCG diet and only eating oatmeal to lose weight. Erick seems to think that he should try those to lose weight. Reminded him that those diets are not healthy and are not easy to stick to. 24 Hour Recall No breakfast Lunch: [place] dog, pears, green beans, and fries, with chocolate milk. Dinner: @ [facility] restaurant grilled chicken, tortillas, and green peppers with chips and salsa andlemonade. 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 Intervention: Nutrition Counseling: Discussed the importance of starting the day off with breakfast and what foods would fit into a healthy breakfast. Also discussed the importance of implementing an overall healthy diet and to avoid following the fad diets that others including family may be trying. Erick's Goals: -Start having breakfast everyday. -Replace all sugar sweetened beverages with sugar free substitutes -Change to 1% milk (currently drinking whole milk) -Try bringing lunch 1 day per week and increase from there. Follow-up with weight management dietitian in 1 month. Monitor: Weight Motivation for change. Xavier Schaffer RD/HANG documented in this encounter Miscellaneous Notes * Miscellaneous Scans - Document, Scanned - 06/15/2011 2:11 PM CST UCTION TECHNOLOGIST documented in this encounter Plan of Treatment Not on file documented as of this encounter Visit Diagnoses Not on filedocumented in this encounter Care Teams Cyber Security Manager Relationship Specialty [place] [address] [place] [address] PCP - General 05/01/11 05/01/11 documented as of this encounter
--- OUTSIDE RECORDS SUMMARY | 2024-08-06 19:03 | XMS_ITS | Encounter Summary ---
Author Organization [facility] Address [address] [facility] [place] [address] Care Team Providers Care Card Feeder Name Role Phone Bernardino Brown MD Primary Care Provider [phone] Sera Leonard DO Unavailable [phone] Reason for Visit * Reason Onset Date Comments Concerns 04/17/2014 Encounter Details Date Type Department Care Team (Late st Contact Info) Description 04/17/2014 Telephone [facility] [address] [place] [phone] Bernardino Brown MD [address] [place] [phone] Concerns Social History Tobacco Use Types [...] Miscellaneous Notes * Telephone Encounter - Fatmata Matamoros RN - 04/17/2014 2:06 PM CDT Appointment made for tomorrow. * Telephone Encounter - Lissett Rivers - 04/17/2014 12:50 PM CDT Erick Triana's, 13 y.o. male, mother is calling with concerns. Mom called stated pt is not feeling better from ER visit on 04/15/14. Stated pt now have white patches in pt mouth Instructed that provider will call back at their earliest convience. documented in this encounter Plan of Treatment Not on file documented as of this encounter Visit Diagnoses Not on filedocumented in this encounter Care Teams Card Feeder Relationship Specialty Start Date End Date Bernardino Brown MD [address] [place] [phone] PCP - General Pediatrics 05/16/13 04/30/14 Sera Leonard DO [address] [place] [phone] Resident Pediatrics 09/27/13 11/04/14 documented as of this encounter
--- OUTSIDE RECORDS SUMMARY | 2024-08-06 19:03 | XMS_ITS | Encounter Summary ---
Author Organization [facility] Address [address] [place] [address] Care Team Providers Care Senior Lead Developer Name Role Phone Marisol Roblero MD Primary Care Provider [phone] Reason for Visit * Reason Comments Weight Problem new pt Encounter Details Date Type Department Care Team (Latest Contact Info) Description 04/10/2011 12:01 AM CDT - 04/10/2011 11:59 PM CDT Hospital Encounter [facility] - Weight Management [facility] [place] [address] [place] [address] [place] [address] Weight Management Discharge Disposition: Home or Self [...] Sign Reading Time Taken Comments Blood Pressure 100/60 04/10/2011 1:42 PM CDT Pulse - - Temperature - - Respiratory Rate - - Oxygen Saturation - - Inhaled Oxygen Concentration - - Weight 69.1 kg (152 lb 5.4 oz) 04/10/2011 1:31 P M CDT Height 149.1 cm (4' 10.7 ) 04/10/2011 1:31 PM CD T Body Mass Index 31.08 04/10/2011 1:31 PM CDT Body Mass Index Percentile 99.53% 04/10/2011 1:3 1 PM CDT Growth Chart: [facility] (Boys, 2-2 0 Years) documented in this encounter Medications at Time of Discharge Medication Sig Dispensed Refills Start Date End Date ferrous sulfate 300 (60 FE) MG tablet Take 300 mg by mouth once daily. 05/05/2011 documented as of this encounter Progress Notes * Xavier Schaffer, PB/LD - 04/10/2011 4:55 PM CDT NUTRITION ASSESSMENT NOTE Erick Triana is a 10 y.o. 8 m.o. male. He presents to the [facility] for his initial visit accompanied by his mother. Past Medical History Diagnosis Date ??? Anatomic airway obstruction ??? Seasonal allergies ??? KEYANA (obstructive sleep apnea) post T&A 2006--continued snoring sleep study 09/22/10 AHI 1.5 O2 desat 91% ??? Thyroid activity decreased Weight: 69.1 kg (152 lb 5.4 oz) 99.53% of growth percentile based on [id number]. Height: 149.1 cm (4' 10.7 ) 84.01% of growth percentile based on [id number]. Body mass index is 31.08 kg/(m^2). 99.21% of growth percentile based on BMI-for-age. Assessment: Mom and Erick asked appropriate questions during education. Current beverages include juice, sarai-aide and whole milk. Mom reports that Erick eats a lot of fried foods at home as well. Erick and his mother both appeared eager and motivated to make dietary changes. Nutrition diagnosis: Obesity related to excessive portion sizes and undesirable food choices as evidenced by BMI>95th%. Intervention: Erick and parent attended the initial Weight Management Nutrition Class and Learning Lunch. Age appropriate nutrition, serving sizes, and calorie cutting strategies were discussed, while emphasizing the importance of nutrient dense food choices. A sample meal plan displaying 3 meals and 2 snacks was provided and discussed. Erick and parents set specific food related goals to aid weight loss efforts while improving overall nutrition. -Cut out all fried foods -Switch to skim or 1% milk - Cut out all sugar sweetened beverages Erick is to bring a 3 day food record to the next Weight Management appointment. Monitor: Weight and motivation Xavier Schaffer RD/HANG * Sandra Nettles MD - 04/10/2011 1:25 PM CDT Subjective: We had the pleasure of seeing Erick Triana in the [facility] at [facility]. Erick Triana is a 10 y.o. year old boy referred for evaluation of obesity. Erick has had sleep apnea diagnosed and restless legs syndrome treated with iron therapy. He has had tonsilloadenoidectomy and weight loss has been suggested as a way to avoid using CPAP. Erick is here with his mom and younger sister today. Diet: Erick skips breakfast then eats school lunch. He comes home and sometimes eats a snack but usually waits until supper. Mom prepares a lot of fried food and gives Erick KoolAide and juice to drink. Hetends to eat at night and often eats cold breakfast cereal like Fruity Shweta and Special K with Strawberries. Physical activity: Erick is in the 5th grade and has PE twice a week. He gets teased and bullied a lot and often is solitary during recess. He does not play outside much or participate in any sports. He tends to listento music in his room. There is a treadmill in the home and bill is starting to walk more at a local track. Screen time: 1 hour per day. No TV in bedroom Past Medical History: Diagnosed with obstructive sleep apnea and restless legs syndrome Allergic rhinitis treated with nasal sprays Psychosocial History: Lives with mom, baby sister and step dad Family History: Mom has obesity. A grandmother has type 2 diabetes. Dad is healthy and thin. Review of Systems No polyuria, polydipsia, headaches, constipation, abdominal pain, nausea, vomiting or diarrhea Objective: Blood pressure 100/60 Wt Readings from Last 3 Encounters: 04/10/11 69.1 kg (152 lb 5.4 oz) (99.53%) 04/02/11 69.037 kg (152 lb 3.2 oz) (99.53%) 03/05/11 68.312 kg (150 lb 9.6 oz) (99.53%) Ht Readings from Last 3 Encounters: 04/10/11 1.491 m (4' 10.7 ) (84.01%) 04/02/11 1.51 m (4' 11.45 ) (89.97%) 03/05/11 1.51 m (4' 11.45 ) (90.95%) Body mass index is 31.08 kg/(m^2).Z-score: 2.41 99.21% of growth percentile based on BMI-for-age. 99.53% of growth percentile based on kdobrq-oxm-lyq. 84.01% of growth percentile based on psxmzyz-aki-cli. General: Well appearing, obese, pleasant Thyroid: No goiter or nodules Lung: Clear to auscultation Heart: RRR with no murmurs Abdomen: Obese, soft, no hepatomegaly Maturation Nba stage one for pubic hair and testicular volume Extremities: No edema Skin: Warm and moist with no rashes; acanthosis nigricans is quite evident around the neck, axillary skin, umbilicus Neuro Non focal with normal affect Lab Review 08/09/2010: cholesterol 78, HDL 44, LDL 28, trig 32, glucose 87, TSH 0.99, Assessment: Erick is a 10 y.o. male with a BMI for age and gender that places him in the severely obese category of weight and already has obstructive sleep apnea and what appears to be significant psychosocial distress due to his excess weight. Due to his excess weight, Erick is at high risk for developing obesity related comorbidities including diabetes, hypertension, hyperlipidemia and orthopedic problems. Erick's acanthosis and significant central obesity really places him at very high risk of diabetesand other metabolic problems. I have discussed with mom a need for appropriate weight loss over thenext 3-4 months and then a need to stabilize BMI z score. Plan: 1. Erick Triana and his caregivers met extensively with our dietitian today during a one-hour nutrition class. Topics covered included age-appropriate portion sizes, recommended daily allowances,providing balanced meals, how to read food labels, and choosing only zero calorie drinks between meals. Sample menus and a three day food diary were provided. 2. The following dietary/eating goals were set: 1. Mom will switch to non-fried foods; 2. Switch toskim milk; 3. No caloric beverages; 4. Mom will try to give something for breakfast; 5. Mom will stop purchasing cold breakfast cereals with added sugar 3. Erick and his caregivers met with our psychologist today to discuss some of the issues with teasing and bullying and goal setting. 4. I set a goal with mom to try one strategy to increase Erick's physical activity. I suggested a TV or music exchange where Erick needs to do some activity prior to engaging in sedentary activities.This will take a lot of support and structure from mom. 5. Follow up: 2-4 weeks with registered dietitian; 2-3 months with me documented in this encounter Procedure Notes * Document, Scanned - 05/17/2012 10:08 AM CDTAssociated Order(s): LAB RESULTS ORDER documented in this encounter Consult Notes * Danny Leung, PhD - 04/10/2011 4:06 PM CDT [facility] Psychosocial Assessment Erick Triana [id number] [birth year] 10 y.o. 8 m.o. Individuals Present: mother and Erick Family constellation: Composition of Primary Household: mother, step-father, Erick, baby sister. Biological father is notinvolved, per mother. If parents have separate households, schedule with non-fdc parent: n/a Other caregivers (after-school program, extended family): n/a School Issues: Current Grade: 5th Academic Performance: very good Behavioral concerns: None reported by mother today, but he has history of diagnoses of OppositionalDefiant Disorder (ODD) and Attention- Deficit/Hyperactivity Disorder (ADHD) Special Education or remedial supports (describe): no Ever repeated a grade? No If concerns, please explain: Erick said that he does not like any subjects at school. Assessment Parental Concerns for Child: Health Concerns Another doctor said to come If concerns, please explain: n/a Household routines: Child has regular chores Regular meals Regular homework times If concerns, please explain: n/a Responsibility for change: Family focus of change If concerns, please explain: n/a Household/ parenting style: Flexible and Structured If concerns, please explain: n/a Family interactions: Connected If concerns, please explain: n/a Social Environment: 1-3 Care Providers Erick made comment that he hates biological father (he has not seen him for years) Interaction between parents: not observed Parent/ Child Interactions: Strong Interactions among siblings: Strong Neighborhood: safe If concerns, please explain: Erick questioned this safety Parents??? Health Habits: No smoking No regular excercise Mother said that step-father is obese If concerns, please explain: as above Child's Concerns: Health Concerns Worried about appearance If concerns, please explain: n/a Child's Perception of support: Good family support If concerns, please explain: n/a Peer Issues: Gets teased at school Erick is said to have very poor peer relations at school, excluded, teased, picked-on If concerns, please explain: as above Sleeping Habits: Sleeps in own room/ bed DX sleep apnea If concerns, please explain: as above, not on CPAP, trying first to remedy situation with weight loss, lifestyle changes Possible Barriers to Change: CAREGIVERS: Secure finances Low knowledge level If concerns, please explain: as above CHILD: Low knowledge level Young age If concerns, please explain: as above Family Motivation for Change: Ask each caregiver ???On a scale of 0-10, with being extremely motivated, how motivated are you to change??? For Example, ???10?? would indicate that you intend to follow all eating and activity recommendations, along with your child, and a ???0?? would indicate that you do not intend to change any habits. 8, mother Ask child, ???On a scale of 0-10, with 10 being extremely motivated, how motivated are you to change??? For example, ???10?? would indicate that you intend to follow all eating and activity recommendations, and a ???0?? would indicate that you do not intend to change any of your current habits. Child: 8 Impression of patient and family: Mother and Erick appear to have close relationship. The family is purported to have already made some good lifestyle changes. Also, mother said that she wishes to lose weight, as does her . Family is focus of change, per mother. Erick presents as bright child. There is concern about his history of social difficulties, however. He is involved in psychotherapy with Dr. Jiménez of the Psychology Department. Recommendations: 1. Erick will benefit from adult monitoring to support lifestyle changes. 2. The caregivers will benefit from ongoing support and guidance to support lifestyle changes. 3. Continue counseling 4. It will be important for parents to support Erick's activity by engaging in activities with him. Initial Goals: Behavioral Goals: At least 30 minutes daily activity (e.g., walking, biking, dancing) No more than 2 hours screen time daily Eating Goals: No sugared drinks Change to skim milk No fried foods Please call with any questions or concerns . Danny Leung, PHD 04/10/2011 Clinical Psychologist [place] Licensed Psychologist [facility] documented in this encounter Miscellaneous Notes * Miscellaneous Scans - Document, Scanned - 05/17/2012 10:08 AM CDT * Miscellaneous Scans - Document, Scanned - 05/17/2012 10:08 AM CDT * Miscellaneous Scans - Document, Scanned - 05/17/2012 10:08 AM CDT * Miscellaneous Scans - Document, Scanned - 05/17/2012 10:08 AM CDT * Miscellaneous Scans - Document, Scanned - 05/17/2012 10:08 AM CDT * Miscellaneous Scans - Document, Scanned - 04/13/2011 3:43 PM CDT documented in this encounter Plan of Treatment Not on file documented as of this encounter Procedures Procedure Name Priority Date/Time Associated Diagnosis Comments LAB RESULTS ORDER 05/17/2012 10: 08 AM CDT documented in this encounter Results * LAB RESULTS ORDER (05/17/2012 10:08 AM CDT) Narrative Transcriptions Document, Scanned - 05/17/2012 10:08 AM CDT Scanned Document LAB - THERAPEUTIC DR LYLES MONITORING ORDERABLES documented in this encounter Visit Diagnoses Not on filedocumented in this encounter Care Teams Senior Lead Developer Relationship Specialty Start Date End Date Marisol Roblero MD [address] [place] [phone] PCP - General 11/13/10 04/30/11 documented as of this encounter
--- OUTSIDE RECORDS SUMMARY | 2024-08-06 19:03 | XMS_ITS | Encounter Summary ---
Author Organization [facility] Address [address] [place] [address] Care Team Providers Care Cement Mason Helper Name Role Phone Bernardino Brown MD Primary Care Provider Sera Leonard DO Unavailable [phone] Reason for Visit * Reason Comments Sore Throat sore throat since fr iday, denies fevers. Encounter Details Date Type Department Care Team (Late st Contact Info) Description 12/18/2013 9:36 AM CDT - 12/18/2013 10:25 AM CDT Emergency ER at [address] [address] Angel Patel MD [address] [place] [phone] Seasonal allergies (Primary Dx) Discharge Disposition: Home or Self Care Social [...] Sign Reading Time Taken Comments Blood Pressure 126/74 12/18/2013 9:41 AM CDT Pulse 60 12/18/2013 9:41 AM CDT Temperature 36.1 ??C (97 ??F) 12/18/2013 9:41 AM CDT Respiratory Rate 16 12/18/2013 9:41 AM CDT Oxygen Saturation - - Inhaled Oxygen Concentration - - Weight 97.7 kg (215 lb 6.2 oz) 12/18/2013 9:41 A M CDT Height - - Body Mass Index - - documented in this encounter Discharge Instructions * Discharge Instructions* Angel Patel MD - 12/18/2013 10:08 AM CDT Images from the original note were not included. Allergies, Generic Allergies may happen from anything your body is sensitive to. This may be food, medicines, pollens,chemicals, and nearly anything around you in everyday life that produces allergens. An allergen is anything that causes an allergy producing substance. Heredity is often a factor in causing these problems. This means you may have some of the same allergies as your parents. Food allergies happen in all age groups. Food allergies are some of the most severe and life threatening. Some common food allergies are cow's milk, seafood, eggs, nuts, wheat, and soybeans. SYMPTOMS ?? Swelling around the mouth. ?? An itchy red rash or hives. ?? Vomiting or diarrhea. ?? Difficulty breathing. SEVERE ALLERGIC REACTIONS ARE LIFE-THREATENING. This reaction is called anaphylaxis. It can cause the mouth and throat to swell and cause difficulty with breathing and swallowing. In severe reactions only a trace amount of food (for example, peanut oil in a salad) may cause within seconds. Seasonal allergies occur in all age groups. These are seasonal because they usually occur during the same season every year. They may be a reaction to molds, grass pollens, or tree pollens. Other causes of problems are house dust mite allergens, pet dander, and mold spores. The symptoms often consist of nasal congestion, a runny itchy nose associated with sneezing, and tearing itchy eyes. There is often an associated itching of the mouth and ears. The problems happen when you come in contact with pollens and other allergens. Allergens are the particles in the air that the body reacts to with an allergic reaction. This causes you to release allergic antibodies. Through a chain of events, these eventually cause you to release histamine into the blood stream. Although it is meant to be protective to the body, it is this release that causes your discomfort. This is why you were given anti-histamines to feel better.?? If you are unable to pinpoint the offending allergen, it may be determined by skin or blood testing. Allergies cannot be cured but can be controlled with medicine. Hay fever is a collection of all or some of the seasonal allergy problems. It may often be treated with simple hgvh-fai-jiusmqo medicine such as diphenhydramine. Take medicine as directed. Do not drink alcohol or drive while taking this medicine. Check with your caregiver or package insert for child dosages. If these medicines are not effective, there are many new medicines your caregiver can prescribe. Stronger medicine such as nasal spray, eye drops, and corticosteroids may be used if the first things you try do not work well. Other treatments such as immunotherapy or desensitizing injections can be used if all else fails. Follow up with your caregiver if problems continue. These seasonal allergiesare usually not life threatening. They are generally more of a nuisance that can often be handled using medicine. HOME CARE INSTRUCTIONS ?? If unsure what causes a reaction, keep a diary of foods eaten and symptoms that follow. Avoid foods that cause reactions. ?? If hives or rash are present: ?? Take medicine as directed. ?? You may use an yaza-zwj-dkfsatt antihistamine (diphenhydramine) for hives and itching as needed. ?? Apply cold compresses (cloths) to the skin or take baths in cool water. Avoid hot baths or showers. Heat will make a rash and itching worse. ?? If you are severely allergic: ?? Following a treatment for a severe reaction, hospitalization is often required for closer follow-up. ?? Wear a medic-alert bracelet or necklace stating the allergy. ?? You and your family must learn how to give adrenaline or use an anaphylaxis kit. ?? If you have had a severe reaction, always carry your anaphylaxis kit or EpiPen?? with you. Use this medicine as directed by your caregiver if a severe reaction is occurring. Failure to do so couldhave a fatal outcome. SEEK MEDICAL CARE IF: ?? You suspect a food allergy. Symptoms generally happen within 30 minutes of eating a food. ?? Your symptoms have not gone away within 2 days or are getting worse. ?? You develop new symptoms. ?? You want to retest yourself or your child with a food or drink you think causes an allergic reaction. Never do this if an anaphylactic reaction to that food or drink has happened before. Only do this under the care of a caregiver. SEEK IMMEDIATE MEDICAL CARE IF: ?? You have difficulty breathing, are wheezing, or have a tight feeling in your chest or throat. ?? You have a swollen mouth, or you have hives, swelling, or itching all over your body. ?? You have had a severe reaction that has responded to your anaphylaxis kit or an EpiPen??. These reactions may return when the medicine has worn off. These reactions should be considered life threatening. MAKE SURE YOU: ?? Understand these instructions. ?? Will watch your condition. ?? Will get help right away if you are not doing well or get worse. Document Released: 10/12/2003 Document Revised: 10/10/2012 Document Reviewed: 03/18/2009 ExitCare?? Patient Information ??2013 [employer]. * Discharge Instructions* Document, Scanned - 12/19/2013 5:03 PM CDT documented in this encounter Medications at Time of Discharge Medication Sig Dispensed Refills Start Date End Date acetaminophen (TYLENOL) 500 MG tablet Take 1 Tab by mouth every 4 hours as needed for Fever or Pain. Maximum allowable Acetaminophen amount = 4 Grams (4000 mg) / 24 hours. 20 Tab 0 12/18/2013 02/04/2015 cetirizine (ZYRTEC) 5 MG/5ML syrup Take 10 mL by mouth once daily for 7 days. 300 mL 0 12/18/2013 12/25/2013 documented as of this encounter ED Notes * Anna Craig RN - 12/18/2013 10:24 AM CDT Discharge instructions reviewed with mom. Medications discussed, verbalized understanding. No questions at this time. Pt is alert and oriented at this time, playing on phone. Pt is ambulatory to exit. * Angel Patel MD - 12/18/2013 10:05 AM CDT Images from the original note were not included. EMERGENCY DEPARTMENT 12/18/2013 Dear Doctor, We had the pleasure of caring for your patient, Erick Triana in our emergency department on 12/18/2013. A note from the provider(s) who cared for your patient is attached. Should you wish to access any laboratory results, please call . Should you wish to access any radiology results, please call , option 3. In addition, you can access patient information 24 hours a day, from any computer, through [employer], the online version of our electronic medical record. If you would like to use this service, please call Cherise Mejias, Connectivity Coordinator, at . We appreciate the opportunity to care for your patients. If you would like additional information, please call the emergency department directly at . Sincerely, Angel Patel MD Division of Emergency Medicine [facility], [facility] [place] EMERGENCY DEPARTMENT Provider contact with the patient: 12/18/2013 10:05 Erick Tinoco Triana [id number] [facility] EM[facility]GENCY [facility] History Chief Complaint Patient presents with ??? Sore Throat sore throat since wednesday, denies fevers. HPI 13 yr old with sore throat for 2 days, no fever, no vomiting, no diarrhea, no urinary signs, Past Medical History Diagnosis Date ??? Anatomic airway obstruction ??? Seasonal allergies ??? KEYANA (obstructive sleep apnea) post T&A 2006--continued snoring sleep study 09/22/10 AHI 1.5 O2 desat 91% ??? Thyroid activity decreased ??? Allergic rhinitis 05/19/2011 ??? Torsion of testicle R testicle Past Surgical History Procedure Date ??? Tonsillectomy and adenoidectomy 04/01/07 ??? Adenoidectomy ??? Tonsillectomy History Social History ??? Marital Status: Single Spouse Name: N/A Number of Children: N/A ??? Years of Education: N/A Occupational History ??? Not on file. Social History Main Topics ??? Smoking status: Never Smoker ??? Smokeless tobacco: Not on file ??? Alcohol Use: No ??? Drug Use: No ??? Sexually Active: No Other Topics Concern ??? Not on [...] stupid . Never been sexually active. Medications No current outpatient prescriptions on file. Review of Systems Review of Systems Constitutional: Negative for fever, activity change, appetite change and fatigue. HENT: Positive for sneezing and trouble swallowing. Musculoskeletal: Positive for myalgias. All other systems reviewed and are negative. BP 126/74 Pulse 60 Temp 97 ??F Resp 16 Wt 97.7 kg (215 lb 6.2 oz) Physical Exam Physical Exam Vitals reviewed. Constitutional: He appears well-developed and well-nourished. HENT: Head: Normocephalic. Mouth/Throat: Oropharynx is clear and moist. Congested pharynx Eyes: Pupils are equal, round, and reactive to light. Neck: Normal range of motion. Cardiovascular: Normal rate. Pulmonary/Chest: Effort normal. Abdominal: Soft. Musculoskeletal: Normal range of motion. Neurological: He is alert. Skin: Skin is warm. Procedures Procedures Lab/SPO2 Interpretation Progress Notes ED Course Results for orders placed during the hospital encounter of 12/18/13 STREP A SCREEN DIRECT W RFLX STREP A CULTURE Component Value Range Strep A Rapid Negative Negative Pt looks well, with seasonal allergies advised on symptomatic treatment, Zyrtec and Tylenol, fluidsand return to ED for any concerns. Parents explained about care plan and advised follow up as needed Medical Decision Making I have reviewed the: Nursing Notes and Vitals. I have interpreted the following results: Labs. The total time providing critical care (excluding time spent for procedures) was: 0 mins minutes. I have personally seen and examined this patient. I have fully participated in the care of this patient. I have reviewed all pertinent clinical information available to me during this encounter, including history, physical exam and plan. I have reviewed available labs and radiographic studies. I reviewed the nurses notes I reviewed the vital signs ASSESSMENT: Sore throat R/o Viral Illness, Strep Pharyngitis, Allergies Clinical Impression Final diagnoses: None Allergies documented in this encounter Miscellaneous Notes * Miscellaneous Scans - Document, Scanned - 12/19/2013 5:03 PM CDT documented in this encounter Plan of Treatment Not on file documented as of this encounter Procedures Procedure Name Priority Date/Time Associated Diagnosis Comments STREP A SCREEN DIRECT W RFLX STREP A CULTURE STAT 12/18/2013 9:45 AM CDT CULTURE STREP GROUP A STAT 12/18/2013 9:45 AM CDT documented in this encounter Results * STREP A SCREEN DIRECT W RFLX STREP A CULTURE (12/18/2013 9:45 AM CDT) Strep A Rapid Negative Negative 12/18/2013 10:12 AM CDT [facility] Microbiology ENTIRE THROAT (SURFACE REGION OF NECK) / Unknown 12/18/2013 9:45 AM CDT 12/18/2013 9:57 AM CDT Narrative [facility] - 12/18/2013 10:12 AM CDT Test has reflexed to a Strep A culture. Angel Patel MD LAB - MICROBIOLOGY O RDERABLES [facility] [address] [place] [address] * CULTURE STREP GROUP A (12/18/2013 9:45 AM CDT) Culture Negative for Beta Hemolytic Streptococcus Group A 12/20/2013 9:01 AM CDT [facility] Microbiology ENTIRE THROAT (SURFACE REGION OF NECK) / Unknown 12/18/2013 9:45 AM CDT 12/18/2013 9:57 AM CDT Angel Patel MD LAB - MICROBIOLOGY O RDERABLES [facility] [address] [place] [address], [facility] documented in this encounter Visit Diagnoses Diagnosis Seasonal allergies- Primary Allergic rhinitis, cause unspecified documented in this encounter Administered Medications Inactive Administered Medications - up to 3 most recent administrations Medication Order MAR Action Action Date Dose Rate Site ibuprofen (MOTRIN) tablet 600 mg 600 mg, Oral, ONCE, 1 dose, On Wed12/18/13 at 1000, Maximum allowable amount = 3200 mg / 24 hours. $ Given 12/18/2013 9:44 AM CDT 600 mg documented in this encounter Active and Recently Administered Medications Times are shown in CDT. Scheduled Medication Order 12/16/2013 12/17/2013 12/18/2013 ibuprofen (MOTRIN) tablet 600 mg (COMPLETED) 600 mg, Oral, ONCE, 1 dose, On Wed12/18/13 at 1000, Maximum allowable amount = 3200 mg / 24 hours. 0944 ($ Given - Prov ider: Rosemarie [place] RN) documented in this encounter Care Teams Cement Mason Helper Relationship Specialty Start Date End Date Bernardino Brown MD [address] [place] [phone] PCP - General Pediatrics 05/16/13 04/30/14 Sera Leonard DO [address] [place] [phone] Resident Pediatrics 09/27/13 11/04/14 documented as of this encounter
--- OUTSIDE RECORDS SUMMARY | 2024-08-06 19:03 | XMS_ITS | Encounter Summary ---
Author Organization [facility] Address [address] [place] [address] Care Team Providers Care Carding Supervisor Name Role Phone Godfrey Curry MD Primary Care Provider Dipika Reddy MD Unavailable Encounter Details Date Type Department Care Team (Late st Contact Info) Description 11/12/2017 Orders Only [facility] Pediatrics - [address] [address] Jose Rafael Thompson MD [address] [place] [id number] Elevated liver enzymes Social History Tobacco Use Types Packs/Day Years [...] Procedure Name Priority Date/Time Associated Diagnosis Comments US GUIDE NEEDLE PLACEMENT Routine 01/20/2018 11:12 AM CDT Elevated liver enzymes documented in this encounter Results * US GUIDE NEEDLE PLACEMENT (01/20/2018 11:12 AM CDT) Narrative [facility] - 01/21/2018 9:35 AM CDT No Dictation. Jose Rafael Thompson MD US ORDERABLES [facility] [address] [place] [address] documented in this encounter Visit Diagnoses Diagnosis Elevated liver enzymes- Primary Nonspecific elevation of levels of transaminase or lactic acid dehydrogenase (LDH) documented in this encounter Care Teams Carding Supervisor Relationship Specialty Start Date End Date Labarge, Godfrey Zapata MD [address] [place] [phone] PCP - General Pediatrics 05/01/14 Dipika Reddy MD [address] [place] [phone] Resident Student Resident 11/27/15 documented as of this encounter
--- OUTSIDE RECORDS SUMMARY | 2024-08-06 19:03 | XMS_ITS | Encounter Summary ---
Author Organization [facility] Address [address] [place] [address] Care Team Providers Care Caterpillar Tractor Operator Name Role Phone Godfrey Curry MD Primary Care Provider Dipika Reddy MD Unavailable [phone] Encounter Details Date Type Department Care Team (Latest Contact Info) Description 10/01/2017 4:46 PM ENERGY TECHNICIAN - 10/01/2017 11:59 PM [facility] Hospital Encounter [facility] Pediatric[facility] - Lab [address] [place] [address] Elena Eugene PASara [address] [place] [address] Discharge Disposition: Home or Self Care Social [...] 07/05/2017 11/12/2017 documented as of this encounter Plan of Treatment Not on file documented as of this encounter Procedures Procedure Name Priority Date/Time Associated Diagnosis Comments CBC W AUTO DIFFERENTIAL Routine 10/01/2017 4:54 PM ENERGY TECHNICIAN Encounter for medication monitoring TRIGLYCERIDES BLOOD Routine 10/01/2017 4 :54 PM ENERGY TECHNICIAN Encounter for medication monitoring COMPREHENSIVE METABOLIC PANEL Routine 10/01/2017 4:54 PM ENERGY TECHNICIAN Encounter for medication monitoring documented in this encounter Results * (ABNORMAL) TRIGLYCERIDES BLOOD (10/01/2017 4:54 PM ENERGY TECHNICIAN) Triglycerides 32(L) 46 - 227 mg/dL 10/01/2017 5:49 PM ENERGY TECHNICIAN [facility] Blood BLOOD SPECIMEN / Unknown Lab Venipuncture / Unknown 10/01/2017 4:54 PM ENERGY TECHNICIAN 10/01/2017 5:06 PM ENERGY TECHNICIAN Valdo Pope Jr., MD LAB - CHEMISTRY ORDERABLES Performing Organization Address City/State/[facility] Co de Phone Number [facility] [place], [place] [phone] * (ABNORMAL) COMPREHENSIVE METABOLIC PANEL (10/01/2017 4:54 PM ENERGY TECHNICIAN) Pathologist [facility] Glucose 92 70 - 105 mg/dL 10/01/2017 5:49 PM [facility] Sodium 138 136 - 145 mmol/L 10/01/2017 5:49 PM [facility] Potassium 4.2 3.5 - 5.1 mmol/L 10/01/2017 5:49 PM [facility] Chloride 105 98 - 107 mmol/L 10/01/2017 5:49 PM [facility] CO2 27 20 - 28 mmol/L 10/01/2017 5:49 PM [facility] Calcium 9.56 9.08 - 10.48 mg/dL 10/01/2017 5:49 PM [facility] Anion Gap 6 5 - 20 mmol/L 10/01/2017 5:49 PM [facility] BUN 15.4 5.3 - 18.7 mg/dL 10/01/2017 5:49 PM [facility] Creatinine 0.83 0.61 - 1.07 mg/dL 10/01/2017 5:49 PM [facility] Alkaline Phosphatase 86(L) 100 - 390 U/L 10/01/2017 5:49 PM [facility] ALT 175(H) 6 - 46 U/L 10/01/2017 5:49 PM [facility] AST 66(H) 3 - 35 U/L 10/01/2017 5:49 PM [facility] Protein Total 7.5 6.3 - 8.2 gm/dL 10/01/2017 5:49 PM [facility] Albumin 4.6 3.3 - 4.9 gm/dL 10/01/2017 5:49 PM [facility] Bilirubin Total 0.4 0.3 - 1.2 mg/dL 10/01/2017 5:49 PM [facility] eGFR by MDRD >60 mL/min/1.7 3m2 10/01/2017 5:49 PM [facility] Comment: eGFR calculations are not performed for children under 18 years old. eGFR by MDRD >60 mL/min/1.7 3m2 10/01/2017 5:49 PM [facility] Comment: eGFR calculations are not performed for children under 18 years old. Blood BLOOD SPECIMEN / Unknown Lab Venipuncture / Unknown 10/01/2017 4:54 PM ENERGY TECHNICIAN 10/01/2017 5:06 PM [facility] Valdo Pope Jr., MD LAB - CHEMISTRY ORDERABLES [facility] [address] [place] [phone] * (ABNORMAL) CBC W AUTO DIFFERENTIAL (10/01/2017 4:54 PM [facility]) [facility] Signature WBC 8.8 4.5 - 11.0 x10E9/L 10/01/2017 5:29 PM [facility] WBC Corrected x10E9/L 10/01/2017 5:29 PM [facility] RBC 5.67(H) 4.50 - 5.30 x10E12/L 10/01/2017 5:29 PM [facility] Hemoglobin 15.2 13.0 - 16.0 gm/dL 10/01/2017 5:29 PM [facility] Hematocrit 44.8 37.0 - 49.0 % 10/01/2017 5:29 PM [facility] MCV 79.0 78.0 - 98.0 fl 10/01/2017 5:29 PM [facility] MCH 26.8 25.0 - 35.0 pg 10/01/2017 5:29 PM [facility] MCHC 33.9 31.0 - 37.0 gm/dL 10/01/2017 5:29 PM [facility] Platelet Count 316 100 - 400 x10E9/L 10/01/2017 5:29 PM [facility] RDW-CV 13.2 11.5 - 14.0 % 10/01/2017 5:29 PM [facility] MPV 10.4(H) 6.0 - 9.5 fl 10/01/2017 5:29 PM [facility] Neutrophils % 56.3 31.0 - 78.0 % 10/01/2017 5:29 PM [facility] Lymphocytes % 32.0 13.0 - 54.0 % 10/01/2017 5:29 PM [facility] Monocytes % 7.8 4.0 - 13.0 % 10/01/2017 5:29 PM [facility] Eosinophils % 2.6 0.0 - 8.0 % 10/01/2017 5:29 PM [facility] Basophils % 0.7 % 10/01/2017 5:29 PM [facility] Immature Granulocytes 0.6 % 10/01/2017 5:29 PM [facility] Neutrophil Absolute 4.97 x10E9/L 10/01/2017 5:29 PM [facility] Lymphocytes Absolute 2.83 x10E9/L 10/01/2017 5:29 PM ENERGY TECHNICIAN [facility] Monocytes Absolute 0.69 x10E9/L 10/01/2017 5:29 PM [facility] Eosinophils Absolute 0.23 x10E9/L 10/01/2017 5:29 PM [facility] Basophils Absolute 0.06 x10E9/L 10/01/2017 5:29 PM [facility] Immature Granulocytes Absolute 0.05 x10E9/L 10/01/2017 5:29 PM [facility] nRBC Auto 0 /100 WBC 10/01/2017 5:29 PM [facility] Blood BLOOD SPECIMEN / Unknown Lab Venipuncture / Unknown 10/01/2017 4:54 PM ENERGY TECHNICIAN 10/01/2017 5:06 PM [facility] Valdo Pope Jr., MD LAB - HEMATOLOG Y ORDERABLES Performing Organization Address [facility] de Phone Number [facility] [address] [place] [phone] documented in this encounter Visit Diagnoses Diagnosis Encounter for medication monitoring Encounter for therapeutic drug monitoring documented in this encounter Care Teams C[employer]pillar Tractor Operator Relationship Specialty Start Date End Date Godfrey Curry MD [address] [place] [phone] PCP - General Pediatrics 05/01/14 Dipika Reddy MD [address] [place] [phone] Resident Student Resident 11/27/15 documented as of this encounter
--- OUTSIDE RECORDS SUMMARY | 2024-08-06 19:03 | XMS_ITS | Encounter Summary ---
Author Organization [facility] Address [address] [facility] [address] Care Team Providers Care Case Briefer Name Role Phone Bernardino Brown MD Primary Care Provider [phone] Sera Leonard DO Unavailable Encounter Details Date Type Department Care Team (Latest Contact Info) Description 11/02/2013 4:21 PM CDT - 11/02/2013 11:59 PM T Hospital Encounter [address] [place] [address] Ivet Hinton DO [address] [place] [address] Discharge Disposition: Home or Self Care Social [...] on filedocumented in this encounter Care Teams Case Briefer Relationship Specialty Start Date End Date Bernardino Brown MD [address] [place] [phone] PCP - General Pediatrics 05/16/13 04/30/14 Sera Leonrad DO [address] [place] [phone] Resident Pediatrics 09/27/13 11/04/14 documented as of this encounter
--- OUTSIDE RECORDS SUMMARY | 2024-08-06 19:03 | XMS_ITS | Encounter Summary ---
Author Organization [facility] Address [address] [place] [address] Care Team Providers Care Heat Seal Operator Name Role Phone Marisol Roblero MD Primary Care Provider [phone] Reason for Visit * Reason Comments Injury Head Pt fell from bed tod ay approx 1500 hit back of his head on concrete. No LOC. Denies n/v. After he bent over this pm reported some flashes of light when he stood up. MAYTERLA 3-2mm Encounter Details Date Type Department Care Team (Late st Contact Info) Description 01/31/2011 10:48 PM CDT - 01/31/2011 11:51 PM CDT Emergency ER at [address] [address] Fritz Rivera, PNP Minor head injury Discharge Disposition: Home or Self Care Social [...] Sign Reading Time Taken Comments Blood Pressure 117/81 01/31/2011 10:55 PM CDT Pulse 68 01/31/2011 10:55 PM CDT Temperature 36.8 ??C (98.3 ??F) 01/31/2011 1 0:55 PM CDT Respiratory Rate 16 01/31/2011 10:5 5 PM CDT Oxygen Saturation - - Inhaled Oxygen Concentration - - Weight 67 kg (147 lb 11.3 oz) 1 10:55 PM CDT Height - - Body Mass Index 29.54 01/30/2011 10:35 AM CDT Body Mass Index Percentile 99.22% 01/31 10:55 PM CDT Growth Chart: [facility] (Boys, 2-2 0 Years) documented in this encounter Discharge Instructions * Discharge Instructions* Fritz Rivera, PNP - 01/31/2011 11:40 PM CDT Tylenol as needed for pain. Return if unusually sleepy, hard to arouse, vomiting, mental status changes, unsteady gait or worried. Head Injuries, Child Your or child has received a head injury. It does not appear serious at this time. Drowsiness, headache and vomiting are common following head injury. It should be easy to awaken your child orinfant from a sleep. Sometimes it is necessary to keep your infant or child in the emergency department for a while for observation. Sometimes admission to the hospital may be needed. DEPENDING ON THE AGE OF THE CHILD, THESE MINOR PROBLEMS MAY BE SEEN AFTER A HEAD INJURY: ?? Memory difficulties. ?? Dizziness. ?? Headaches. ?? Double vision. ?? Hearing difficulties. ?? Depression. ?? Tiredness. ?? Weakness. ?? Difficulty with concentration. If you notice any of these problems (symptoms) you should not be alarmed. A bruise on the brain (concussion) requires a few days to heal. This is the same as a bruise elsewhere on the body. Usually, these problems disappear without medical care. If symptoms continue for more than one day, tell yourcaregiver. See your caregiver sooner if symptoms are becoming worse rather than better. HOME CARE INSTRUCTIONS ?? During the next 24 hours you must observe your child for the above warning signs. ?? If problems are getting worse, you should call or return immediately to the facility where you were just seen. In case of emergency or unconsciousness, call your local emergency services. (call 911 in [place] Although it is unlikely that serious side effects will occur, you should be aware of signs and symptoms which may necessitate that you bring your child back to this location. Side effects may occur up to 7 - 10 days following the injury. It is important for you to carefully monitor your child???s condition and contact your caregiver or seek immediate medical attention if there is a change in condition. RETURN TO ATHLETICS ?? Your child may exhibit late signs of a concussion. If your child has any of the symptoms below they should not return to playing contact sports until one week after the symptoms have resolved. Your child should be reevaluated by your caregiver prior to returning to playing contact sports. ?? A child/adolescent who returns to contact sports too early is at risk for reinjuring their head before the brain is completely healed. This is called Second Impact Syndrome. It has also been associated with sudden . A second head injury may be minor but can cause a concussion and worsen thesymptoms listed below. l Persistent headache l Dizziness / vertigo l Poor attention and concentration l Feeling fuzzy l Memory problems l Nausea or vomiting l Fatigue or tire easily l Irritability l Intolerant of bright lights and / or loud noises l Anxiety and / or depression l Disturbed sleep SEEK IMMEDIATE MEDICAL CARE IF: ?? There is confusion or drowsiness. Children frequently become drowsy following damage caused by an accident (trauma) or injury. ?? You can not awaken the or child. ?? They are feeling sick to their stomach (nausea) or continued, forceful vomiting. ?? You notice dizziness or unsteadiness which is getting worse. ?? Your child has convulsions or unconsciousness. ?? Your child has severe, continued headaches not relieved by medication. Only give your child aooq-bag-grrnjnw or prescription medicines for pain, discomfort, or fever as directed by their caregiver. Do not give your child aspirin as this lessens blood clotting abilities and is associated with risks for Herminia's syndrome. ?? Your child can not use arms or legs normally or is unable to walk. ?? There are changes in pupil sizes. The pupils are the black spots in the center of the colored part of the eye. ?? There is clear or bloody discharge from nose or ears. ?? There is a loss of vision. See your caregiver about concerns or problems. MAKE SURE YOU: ?? Understand these instructions. ?? Will watch your condition. ?? Will get help right away if you are not doing well or get worse. Document Released: 2006 Document Re-Released: 07/01/2009 ExitCare?? Patient Information ??2009 [employer]. * Discharge Instructions* Document, Scanned - 02/03/2011 3:33 PM CDT documented in this encounter Medications at Time of Discharge Medication Sig Dispensed Refills Start Date End Date acetaminophen (TYLENOL) 325 MG tablet Take 325 mg by mouth every 4 hours as needed. Maximum allowable Acetaminophen amount = 4 Grams (4000 mg) / 24 hours. 02/12/2011 ferrous sulfate 300 (60 FE) MG tablet Take 300 mg by mouth once daily. 05/05/2011 documented as of this encounter ED Notes * Fritz Rivera PNP - 01/31/2011 11:35 PM CDT 01/31/2011 11:35 PM Erick Triana [id number] [facility] EMERGENCY DEPT History Chief Complaint Patient presents with ??? Injury Head Pt fell from bed today approx 1500 hit back of his head on concrete. No LOC. Denies n/v. After he bent over this pm reported some flashes of light when he stood up. PERRLA 3-2mm Trauma The history is provided by the parent. The current episode started 6-12 hours ago. He came to the ER via personal transport. The problem has been rapidly improving. The incident occurred home. There was no loss of consciousness. The current glascow coma score is 15.The injury/pain location is head.The amount of blood lost was no blood loss. The pain has been rapidly improving since the injury. The pain is mild. Associated symptoms include visual change.Pertinent negatives include no disorientation or no numbness.Associated symptoms comments: Pt states was taking shower and was bending over when he started having blurred vision, but once stood up blurred vision resolved.. Past Medical History Diagnosis Date ??? Anatomic airway obstruction ??? Seasonal allergies ??? KEYANA (obstructive sleep apnea) post T&A 2006--continued snoring sleep study 09/22/10 AHI 1.5 O2 desat 91% ??? Thyroid activity decreased Past Surgical History Procedure Date ??? Tonsillectomy and adenoidectomy 04/01/07 History Social History ??? Marital Status: Single Spouse Name: N/A Number of Children: N/A ??? Years of Education: N/A Occupational History ??? Not on file. Social History Main Topics ??? Smoking status: Never Smoker ??? Smokeless tobacco: Not on file ??? Alcohol Use: No ??? Drug Use: No ??? Sexually Active: Other Topics Concern ??? Not on file Social History Narrative ??? No narrative on file Medications Current Outpatient Prescriptions Medication Sig Dispense Refill ??? acetaminophen (TYLENOL) 325 MG tablet Take 325 mg by mouth every 4 hours as needed. Maximum allowable Acetaminophen amount = 4 Grams (4000 mg) / 24 hours. ??? ferrous sulfate 300 (60 FE) MG tablet Take 300 mg by mouth once daily. Review of Systems Review of Systems Constitutional: Negative. HENT: Negative. Eyes: Positive for visual disturbance. Respiratory: Negative. Cardiovascular: Negative. Gastrointestinal: Negative. Genitourinary: Negative. Musculoskeletal: Negative. Skin: Negative. Neurological: Negative for dizziness, tremors, seizures, syncope, speech difficulty, weakness, light-headedness and numbness. All relevant systems reviewed. BP 117/81 Pulse 68 Temp 98.3 ??F Resp 16 Wt 67 kg (147 lb 11.3 oz) Physical Exam Physical Exam Nursing note and vitals reviewed. Constitutional: He appears well-nourished. He is active. HENT: Right Ear: Tympanic membrane normal. Left Ear: Tympanic membrane normal. Mouth/Throat: Mucous membranes are moist. Oropharynx is clear. Eyes: Conjunctivae and EOM are normal. Pupils are equal, round, and reactive to light. Neck: Normal range of motion. Neck supple. Cardiovascular: Normal rate and regular rhythm. Pulmonary/Chest: Effort normal and breath sounds normal. Abdominal: Soft. Bowel sounds are normal. Musculoskeletal: Normal range of motion. Neurological: He is alert. He has normal reflexes. He displays normal reflexes. No cranial nerve deficit. He exhibits normal muscle tone. Coordination normal. A & O x 3. Cranial Nerves II - XII grossly intact Skin: Skin is warm and dry. Capillary refill takes less than 3 seconds. Procedures Procedures EKG Interpretation Lab/SPO2 Interpretation Progress Notes ED Course Medical Decision Making Tylenol as needed for pain. Return if unusually sleepy, hard to arouse, vomiting, mental status changes, unsteady gait or worried. Clinical Impression Encounter Diagnosis Name Primary? Minor head injury documented in this encounter Miscellaneous Notes * Miscellaneous Scans - Document, Scanned - 04/23/2011 11:12 AM CDT * Miscellaneous Scans - Document, Scanned - 04/21/2011 8:08 PM CDT documented in this encounter Plan of Treatment Not on file documented as of this encounter Visit Diagnoses Diagnosis Minor head injury Head injury, unspecified documented in this encounter Care Teams Heat Seal Operator Relationship Specialty Start Date End Date Marisol Roblero MD [address] [place] [phone] PCP - General 11/13/10 04/30/11 documented as of this encounter
--- OUTSIDE RECORDS SUMMARY | 2024-08-06 19:03 | XMS_ITS | Encounter Summary ---
Author Organization [facility] Address [address] [facility] [place] [address] Care Team Providers Care Station Worker Name Role Phone Godfrey Curry MD Primary Care Provider Dipika Reddy MD Unavailable [phone] Encounter Details Date Type Department Care Team (Latest Contact Info) Description 11/12/2017 9:56 AM CDT - 11/12/2017 11:59 PM CDT Hospital Encounter [facility] - Lab [address] [place] [id number] Jose Rafael Thompson MD [address] [place] [phone] Discharge Disposition: Home or Self Care Social [...] 07/05/2017 05/19/2018 documented as of this encounter Plan of Treatment Not on file documented as of this encounter Procedures Procedure Name Priority Date/Time Associated Diagnosis Comments CK BLOOD Routine 11/12/2017 9:57 AM CDT Liver disorder documented in this encounter Results * CK BLOOD (11/12/2017 9:57 AM CDT) CK 180 30 - 200 U/L 11/12/2017 11:39 AM CDT [facility] Blood BLOOD SPECIMEN / Unknown Lab Venipuncture / Unknown 11/12/2017 9:57 AM CDT 11/12/2017 10:52 AM CDT Jose Rafael Thompson MD LAB - CHEMISTRY HILDA MARIO [facility] [address] [place] [id number] documented in this encounter Visit Diagnoses Diagnosis Liver disorder- Primary Unspecified disorder of liver documented in this encounter Care Teams Station Worker Relationship Specialty Start Date End Date LabargeGodfrye MD [address] [place] [phone] PCP - General Pediatrics 05/01/14 Dipika Reddy MD [address] [place] [phone] Resident Student Resident 11/27/15 documented as of this encounter
--- OUTSIDE RECORDS SUMMARY | 2024-08-06 19:03 | XMS_ITS | Encounter Summary ---
Author Organization [facility] Address [address] [facility] [place] [address] Care Team Providers Care Customer Contact Representative Name Role Phone Godfrey Curry MD Primary Care Provider Dipika Reddy MD Unavailable Reason for Visit * Reason Onset Date Comments Results 11/02/2017 Question 11/02/2017 Encounter Details Date Type Department Care Team (Late st Contact Info) Description 11/02/2017 Telephone [facility] Pediatric[facility] - Dermatology [address] [place] [place] [address] Rani Solitario MD [address] [facility] [address] [place] [address] Results; Question Social History Tobacco Use Types Packs/Day Years [...] Encounter - Mary Ellen Cornell RN - 11/02/2017 11:24 AM CDT Mom LM this morning; inquires about lab results and has a question. Chart reflects most recent labs reviewed with mom via telephone encounter 10/20/17 with plan for GI eval, hold start of isotretinoin pending appt. Spoke with mom; relayed above, reviewed results and recommendations again. Mom states she also wants to relay pt update in case it's related to abnormal lab results. Reports pt with blood in his urine. Instructed mom to contact PCP re: concerns of hematuria. documented in this encounter Plan of Treatment Not on file documented as of this encounter Visit Diagnoses Not on filedocumented in this encounter Care Teams Customer Contact Representative Relationship Specialty Start Date End Date Labarge, Godfrey Zapata MD [facility] [place] [phone] PCP - General Pediatrics 05/01/14 Dipika Reddy MD [facility] [place] [phone] Resident Student Resident 11/27/15 documented as of this encounter
--- OUTSIDE RECORDS SUMMARY | 2024-08-06 19:03 | XMS_ITS | Encounter Summary ---
Author Organization [facility] Address [address] [place] [address] Care Team Providers Care Security Officers And Guards Name Role Phone Godfrey Curry MD Primary Care Provider [phone] Dipika Reddy MD Unavailable [phone] Reason for Visit * Reason Comments Acne Acne on face worse. Pt stated facial acne had improved until he ran out of oral and topical medicine 1 month ago then acne got worse. Keratosis on bilateral arms and legs unchanged. Encounter Details Date Type Department Care Team (Latest Contact Info) Description 07/05/2017 12:36 PM MANAGER HRIS - 07/05/2017 11:59 PM [facility] Hospital Encounter [facility] - Dermatology [address] [place] [address]. [place] [address] Elena Eugene PA-C [address] [place] [id number] Discharge Disposition: Home or Self Care Social [...] - Inhaled Oxygen Concentration - - Weight 118.8 kg (261 lb 14. 5 oz) 07/05/2017 12:57 PM MANAGER HRIS Height 177.7 cm (5' 9.96 ) 07/05/2017 1 2:57 PM MANAGER HRIS Body Mass Index 37.62 07/05/2017 12:57 PM MANAGER HRIS Body Mass Index Percentile 99.24% 07/05 12:57 PM MANAGER HRIS Growth Chart: [facility] [place] 2[place] (Boys, 2-2 0 Years) documented in this encounter Discharge Instructions * Patient Instructions* Elena Eugene PA-C - 07/05/2017 1:38 PM MANAGER HRIS Erick has moderate acne. He is off medication now. We will maximize the doses of his medication forthe next 3 months, then revisit isotretinoin if he is not doing well. Return to the clinic in three months You may request FAXed refills from the pharmacy for up to 3 months. Please allow 24-48 hours to process the request. Note, requests received after noon on Wednesday may not be addressed until the following Wednesday. Call if you have additional questions. Option 2: Schedule a follow - up appointment Option 3: Questions for a nurse or to obtain lab results Erick also has mild dermatitis (rash) on the crease of his elbow. We took a fungal culture today torule out ringworm. We also prescribed triamcinolone to decrease the inflammation. Apply daily for 1-2 weeks, then every other day up to 15-20 g a month. WHAT YOU NEED TO KNOW ABOUT ACNE Most teenagers get acne, but some get bad acne. Acne can be treated but it can???t be cured. So if you want to prevent you acne from getting worse, and you want clear skin, you have to get in the habit of using medication every day, just like brushing your teeth. You have to brush your teeth twice a day for the rest of your life, but you only have to use acne medication for several months, or years. What causes acne? Pimples begin in your pores, which are connected to oil glands. You probably noticed that your skinand hair are more oily. The same hormones that kick in at puberty cause the oil glands to grow and make more oil. When the oil and cells that line your pores stick together, the pore gets blocked, forming a blackhead or gonzalez. The blackhead is not dirt, so scrubbing can???t remove it. Whiteheads form larger pimples when the oil, cells and germs collected in the pore break through the pore wall and cause irritation under the skin. What makes acne worse? ?? Picking ?? Washing too often or scrubbing ?? Friction - for example, helmet chin straps or tight hatbands ?? Menstrual cycles ?? Stress makes everything worse, including acne. Exercise, plenty of sleep and a healthy diet helpreduce stress. ?? Experts disagree about whether certain foods make acne worse. [place] foods can make skin more oily. A few experts think drinking a lot of milk can make acne worse, and that reducing carbohydrates ( low glycemic diet ) can improve acne. What does not make acne worse? ?? Dirt does not cause acne. You do not need to wash multiple times a day or use astringents, masksor scrubbers. ?? Makeup does not cause acne, but the safest products are labeled ???oil- free?? , ??? nonacnegenic?? or ???noncomedogenic.?? . How is acne treated? There are many effective medications to choose from. The biggest difference in the products is the feel or smell. Some medications cause side effects in some people. Your doctor will help you choose the medication that you will like best. Some people need to use more than one medication. You will need to use medicine every day for about 6 weeks to see a change in your skin. Be patient. Don???t give up. How to use topical medications ?? Start with a little and increase the amount gradually. Too much medicine can make your skin dry or red. The right starting amount is a pea-sized dab. Dot the cream on each side of your forehead, each side of your cheek and your chin, then spread a thin layer over your entire face. Use twice as much on your back and chest. Gradually increase the amount, as tolerated. ?? Remember that the medicine should be placed over the entire problem area and not just on the pimples. ?? If your skin gets dry, use a moisturizer (e.g. mineral oil), best applied immediately after washing. ?? If your skin becomes red or sore, call our office for advice. How long must the medicines be used? Acne can last for years but usually gets better after age 25. If you have a lot of relatives who had acne, or your acne started before you were 8 years old, you may need stronger or prolonged treatment. The kind of medication and length of treatment you will need depends on your skin. Prescribed Medications Name Apply AM ApplyPM Additional Instructions tretinoin X Wait at least 20 minutes after washing your face. Apply sparingly. If irritation occurs, use a moisturizer-best applied immediately after washing. Use at least 20 gm/month benzoyl peroxide/clinamycin (Benzaclin, Acanya) X Use at least 20 gm/month oral antibiotics (doxy 100 mg BID) X X Doxycycline Be aware that some foods will interfere with doxycyline absorption. You may take the pill with any food except those that contain milk or calcium. These include fortified orange juice, cheese, yogurtand ice cream. If a pill gets stuck in your throat for several hours, it can cause heartburn or even an ulcer. To prevent this problem, wash the pill down with a whole glass of water and do not lie down for 10-20 minutes after taking. Doxycycline will increase your sensitivity to sun exposure, and make you more likely to sunburn. Tominimize your risk while taking this medication: ?? Wear a hat with a wide brim or a bill facing forward and glasses that block ultraviolet rays. ?? Apply Broad Spectrum sunscreen before going outside. ?? Read the product label. Make sure the active ingredients list includes at least one of the following: zinc oxide, titanium dioxide, avobenzone (Parsol 1789) or mexoryl ?? Some brands with these features are: Elta Block, Blue Lizard Baby, Neutrogena UVA/UVB Sunblock Lotion, Vanicream, Ombrelle Sunscreen Lotion, Cotz, L???Susan Calixto (Check the internet for information about where to purchase these products). ?? Apply a sufficient quantity as indicated on the bottle (directions will vary with different products). It takes about one ounce to cover a young adult. ?? Reapply sunscreen every 1-2 two hours while outdoors, even on cloudy days. Reapply after every hour of swimming or sweating. ?? Avoid outdoor activity between 11 am and 2 pm (when your shadow is shorter than you are), use extra sun protection at high altitudes (in the mountains), low latitudes (where it???s warm), and where there is a lot of reflected sunlight (near lots of water and snow). ?? Wear sun protective clothing made of tightly woven, dark-colored, lightweight fabric. Some brandnames of clothing designed and tested to provide sun protection are Coolibar and Solumbra, but Grisel ???Beefy -T?? shirts also blocks sunlight. Rit Sun Guard Laundry Treatment is a rinse that can add extra SPF to clothing. ?? If your skin is dry, itchy or easily irritated, avoid products that contain alcohol, fragrance, dyes or many preservatives. Sun protective clothing and preservative-free zinc oxide ointment are the safest alternatives. WHEN YOU COME BACK, BRING IN ALL THE MEDICATIONS YOU HAVE FILLED - INCLUDING THE EMPTY CONTAINERS GER HRIS documented in this encounter Medications at Time of Discharge Medication Sig Dispensed Refills Start Date End Date benzoyl peroxide (BENZOYL PEROXIDE) 5 % wash Apply to affected area once daily 1 bottles 07/05/2017 levocetirizine (XYZAL) 5 MG tablet Take 5 mg by mouth once daily tretinoin (RETIN-A) 0.05 % creamIndications:Acne vulgaris Apply to affected area at bedtime 45 g 1 07/05/2017 clindamycin (CLINDAGEL) 1 % gelIndications:Acne vulgaris Apply to affected area 2 times daily 75 mL 1 11/06/2016 10/01/2017 doxycycline (VIBRAMYCIN) 50 MG capsuleIndications:Acn e vulgaris Take 1 Cap by mouth every 12 hours 60 Cap 2 11/06/2016 10/01/2017 doxycycline hyclate (VIBRAMYCIN) 100 MG capsule Take 1 capsule by mouth every 12 hours 60 capsule 2 07/05/2017 05/19/2018 triamcinolone acetonide (KENALOG) 0.1 % cream APPLY TO THE AFFECTED AREA OF THE ARMS EVERY DAY 0 07/05/2017 11/12/2017 triamcinolone acetonide (KENALOG) 0.1 % ointment Apply to the affected area on your arms daily. 80 g 07/05/2017 10/01/2017 documented as of this encounter Progress Notes * Elena Eugene PA-C - 07/05/2017 1:26 PM CST Pediatric Dermatology Clinic Visit Progress Note I had the pleasure of seeing your patient, Erick Triana in the Pediatric Dermatology Clinic at [facility]. Chief Complaint Patient presents with ??? Acne Acne on face worse. Pt stated facial acne had improved until he ran out of oral and topical medicine 1 month ago then acne got worse. Keratosis on bilateral arms and legs unchanged. History of Present Illness This is a follow up evalution for Erick Triana. He came to today's visit with his mother, also accompanied by 1 others (sister). Erick is a 16 y.o. male with a h/o acne. He presents for his visit, a month follow-up. Patient Skin Care Regimen Showers: Daily Uses Dove shampoo and Ax or Dove bodywash. : Daily Uses Mens bath and body lotion : Daily Uses other product: Deodorant Derm Medications Tretinoin: - Patient Supply Remainin g - Calculated Patient Usage: 5.84 g/mo Erick has acne with cystic lesions and scarring. His course is complicated by prolonged follow-up. At his last visit, 10/14/16, he had stopped doxy and tretinoin after 1.5 months due to lack of improvement. He requested isotretinoin. He was instructed to take doxy 50 mg BID, apply clinda gel q AM, wash with BP, and apply tretinoin 0.05% hs. Epic review: 11/06/16: RF doxy, tretinoin, clinda 03/23/17: RF request for doxy denied; no f/u 05/14/17: Mom called requesting RF; encouraged f/u Today, Erick reports improvement when taking doxy and applying topical medications, but flare off medication. He tolerated doxy well without GI disturbance, photosensitivity. He continues to get new inflammatory lesions including cystic lesions. Both he and mom are concerned for scarring, but also h esitant to start a medication like isotretinoin. He is currently living with his grandmother - mom describes multiple teachers giving him trouble and this was one solution. His grandmother is concerned for pseudotumor cerebri. Medications Current Outpatient Prescriptions Medication ??? levocetirizine (XYZAL) 5 MG tablet ??? triamcinolone acetonide (KENALOG) 0.1 % ointment ??? doxycycline hyclate (VIBRAMYCIN) 100 MG capsule ??? tretinoin (RETIN-A) 0.05 % cream ??? benzoyl peroxide (BENZOYL PEROXIDE) 5 % wash ??? doxycycline (VIBRAMYCIN) 50 MG capsule ??? clindamycin (CLINDAGEL) 1 % gel No current facility-administered medications for this encounter. Allergies No Known Allergies Review of Systems Constitutional: No fever. ENT: No congestion and no sore throat. Respiratory: No cough present. Gastrointestinal: No constipation, no diarrhea and no vomiting. Allergy / Immunology: Seasonal allergies present. Dermatologic: Acne and dry skin. Physical Exam Ht 1.777 m (5' 9.96 ) Wt 118.8 kg (261 lb 14.5 oz) BMI 37.62 kg/m2 63 %ile (Z= 0.34) based on CDC 2-20 Years [id number] data using vitals from 07/05/2017. Wt Readings from Last 3 Encounters: 07/05/17 118.8 kg (261 lb 14.5 oz) (>99 %, Z= 2.78)* 10/14/16 120.9 kg (266 lb 8.6 oz) (>99 %, Z= 3.00)* 01/20/16 116.6 kg (257 lb 0.9 oz) (>99 %, Z= 3.06)* * Growth percentiles are based on CDC 2-20 Years data. Ht Readings from Last 3 Encounters: 07/05/17 1.777 m (5' 9.96 ) (63 %, Z= 0.34)* 10/14/16 1.807 m (5' 11.14 ) (82 %, Z= 0.91)* 01/20/16 1.761 m (5' 9.33 ) (71 %, Z= 0.54)* * Growth percentiles are based on [facility] [place]NOTE 2] 2-20 Years data. Body mass index is 37.62 kg/(m^2). General: Healthy and alert. Easy to examine Skin Appearance: Type II skin; fairly well hydrated The following pertinent positives and negatives were noted: Involved sites: Evaluation of face, neck, chest, abdomen, back, R & L upper extremities, R & L lower extremities revealed: Inflammatory papules, pustules, and a few cysts>comedones on face with violaceous, textural change; small inflammatory papules + keratotic papules on back; sparse inflammatory papules on chest; keratotic papules on upper arms M/S: ambulates well Psych: pleasant affect Assessment & Plan Problem Keratosis Pilaris Upper>lower arms; face; complicated by folliculitis 01/22/16 LE skin Cx neg Strep, neg Staph 10/14/2016 unchanged 07/07/17 reported improvement using therapy, relapse off; restart doxy, tretinoin, BP wash Orders Placed This Encounter ??? CULTURE FUNGUS SKIN HAIR NAIL+FUNGUS SMEAR Right elbow Standing Status: Standing Number of Occurrences: 1 ??? triamcinolone acetonide (KENALOG) 0.1 % ointment Sig: Apply to the affected area on your arms daily. Dispense: 80 g Refill: 0 ??? doxycycline hyclate (VIBRAMYCIN) 100 MG capsule Sig: Take 1 capsule by mouth every 12 hours Dispense: 60 capsule Refill: 2 ??? tretinoin (RETIN-A) 0.05 % cream Sig: Apply to affected area at bedtime Dispense: 45 g Refill: 1 ??? benzoyl peroxide (BENZOYL PEROXIDE) 5 % wash Sig: Apply to affected area once daily Dispense: 1 bottles Refill: 0 Patient Instructions Erick has moderate acne. He is off medication now. We will maximize the doses of his medication forthe next 3 months, then revisit isotretinoin if he is not doing well. Return to the clinic in three months You may request FAXed refills from the pharmacy for up to 3 months. Please allow 24-48 hours to process the request. Note, requests received after noon on Wednesday may not be addressed until the following Wednesday. Call [phone] if you have additional questions. Option 2: Schedule a follow - up appointment Option 3: Questions for a nurse or to obtain lab results Erick also has mild dermatitis (rash) on the crease of his elbow. We took a fungal culture today torule out ringworm. We also prescribed triamcinolone to decrease the inflammation. Apply daily for 1-2 weeks, then every other day up to 15-20 g a month. WHAT YOU NEED TO KNOW ABOUT ACNE Most teenagers get acne, but some get bad acne. Acne can be treated but it can???t be cured. So if you want to prevent you acne from getting worse, and you want clear skin, you have to get in the habit of using medication every day, just like brushing your teeth. You have to brush your teeth twice a day for the rest of your life, but you only have to use acne medication for several months, or years. What causes acne? Pimples begin in your pores, which are connected to oil glands. You probably noticed that your skinand hair are more oily. The same hormones that kick in at puberty cause the oil glands to grow and make more oil. When the oil and cells that line your pores stick together, the pore gets blocked, forming a blackhead or gonzalez. The blackhead is not dirt, so scrubbing can???t remove it. Whiteheads form larger pimples when the oil, cells and germs collected in the pore break through the pore wall and cause irritation under the skin. What makes acne worse? ?? Picking ?? Washing too often or scrubbing ?? Friction - for example, helmet chin straps or tight hatbands ?? Menstrual cycles ?? Stress makes everything worse, including acne. Exercise, plenty of sleep and a healthy diet helpreduce stress. ?? Experts disagree about whether certain foods make acne worse. [place] foods can make skin more oily. A few experts think drinking a lot of milk can make acne worse, and that reducing carbohydrates ( low glycemic diet ) can improve acne. What does not make acne worse? ?? Dirt does not cause acne. You do not need to wash multiple times a day or use astringents, masksor scrubbers. ?? Makeup does not cause acne, but the safest products are labeled ???oil- free?? , ??? nonacnegenic?? or ???noncomedogenic.?? . How is acne treated? There are many effective medications to choose from. The biggest difference in the products is the feel or smell. Some medications cause side effects in some people. Your doctor will help you choose the medication that you will like best. Some people need to use more than one medication. You will need to use medicine every day for about 6 weeks to see a change in your skin. Be patient. Don???t give up. How to use topical medications ?? Start with a little and increase the amount gradually. Too much medicine can make your skin dry or red. The right starting amount is a pea-sized dab. Dot the cream on each side of your forehead, each side of your cheek and your chin, then spread a thin layer over your entire face. Use twice as much on your back and chest. Gradually increase the amount, as tolerated. ?? Remember that the medicine should be placed over the entire problem area and not just on the pimples. ?? If your skin gets dry, use a moisturizer (e.g. mineral oil), best applied immediately after washing. ?? If your skin becomes red or sore, call our office for advice. How long must the medicines be used? Acne can last for years but usually gets better after age 25. If you have a lot of relatives who had acne, or your acne started before you were 8 years old, you may need stronger or prolonged treatment. The kind of medication and length of treatment you will need depends on your skin. Prescribed Medications Name Apply AM ApplyPM Additional Instructions tretinoin X Wait at least 20 minutes after washing your face. Apply sparingly. If irritation occurs, use a moisturizer-best applied immediately after washing. Use at least 20 gm/month benzoyl peroxide/clinamycin (Benzaclin, Acanya) X Use at least 20 gm/month oral antibiotics (doxy 100 mg BID) X X Doxycycline Be aware that some foods will interfere with doxycyline absorption. You may take the pill with any food except those that contain milk or calcium. These include fortified orange juice, cheese, yogurtand ice cream. If a pill gets stuck in your throat for several hours, it can cause heartburn or even an ulcer. To prevent this problem, wash the pill down with a whole glass of water and do not lie down for 10-20 minutes after taking. Doxycycline will increase your sensitivity to sun exposure, and make you more likely to sunburn. Tominimize your risk while taking this medication: ?? Wear a hat with a wide brim or a bill facing forward and glasses that block ultraviolet rays. ?? Apply Broad Spectrum sunscreen before going outside. ?? Read the product label. Make sure the active ingredients list includes at least one of the following: zinc oxide, titanium dioxide, avobenzone (Parsol 1789) or mexoryl ?? Some brands with these features are: Elta Block, Blue Lizard Baby, Neutrogena UVA/UVB Sunblock Lotion, Vanicream, Ombrelle Sunscreen Lotion, Cotz, L???Raulal Anthelios (Check the internet for information about where to purchase these products). ?? Apply a sufficient quantity as indicated on the bottle (directions will vary with different products). It takes about one ounce to cover a young adult. ?? Reapply sunscreen every 1-2 two hours while outdoors, even on cloudy days. Reapply after every hour of swimming or sweating. ?? Avoid outdoor activity between 11 am and 2 pm (when your shadow is shorter than you are), use extra sun protection at high altitudes (in the mountains), low latitudes (where it???s warm), and where there is a lot of reflected sunlight (near lots of water and snow). ?? Wear sun protective clothing made of tightly woven, dark-colored, lightweight fabric. Some brandnames of clothing designed and tested to provide sun protection are Coolibar and Solumbra, but Grisel ???Beefy -T?? shirts also blocks sunlight. Rit Sun Guard Laundry Treatment is a rinse that can add extra SPF to clothing. ?? If your skin is dry, itchy or easily irritated, avoid products that contain alcohol, fragrance, dyes or many preservatives. Sun protective clothing and preservative-free zinc oxide ointment are the safest alternatives. WHEN YOU COME BACK, BRING IN ALL THE MEDICATIONS YOU HAVE FILLED - INCLUDING THE EMPTY CONTAINERS Follow-Up As above Elena Eugene PA-C GER HRIS documented in this encounter Plan of Treatment Not on file documented as of this encounter Procedures Procedure Name Priority Date/Time Associated Diagnosis Comments CULTURE FUNGUS SKIN HAIR NAIL+FUNGUS SMEAR Routine 07/05/2017 1:50 PM MANAGER HRIS Acne vulgaris documented in this encounter Results * CULTURE FUNGUS SKIN HAIR NAIL+FUNGUS SMEAR (07/05/2017 1:50 PM MANAGER HRIS) Culture No fungus isolated AUNDREA 08/03/2017 9:29 AM MANAGER HRIS [facility] MICROBIOLOGY Fungus Smear No yeast or hyphae seen 08/03/2017 9:29 AM MANAGER HRIS [facility] MICROBIOLOGY Microbiology TISSUE SPECIMEN FROM SKIN / Unknown Collection / Unknown 07/05/2017 1:50 PM MANAGER HRIS 07/05/2017 2:49 PM MANAGER HRIS Elena Eugene PA-C LAB - MICROBIOLOGY ORDERABLES [facility] MICROBIOLOGY [address] [phone] documented in this encounter Visit Diagnoses Diagnosis Acne vulgaris Other acne documented in this encounter Care Teams Security Officers And Guards Relationship Specialty Start Date End Date LabargeGodfrey MD [address] [place] [id number] PCP - General Pediatrics 05/01/14 Dipika Reddy MD [address] [place] [id number] Resident Student Resident 11/27/15 documented as of this encounter
--- OUTSIDE RECORDS SUMMARY | 2024-08-06 19:03 | XMS_ITS | Encounter Summary ---
Author Organization [facility] Address [address] [place] [address] Care Team Providers Care Cake Former Name Role Phone Bernardino Brown MD Primary Care Provider [phone] Sera Leonard DO Unavailable [phone] Reason for Visit * Reason Onset Date Comments Concerns 04/18/2014 Encounter Details Date Type Department Care Team (Late st Contact Info) Description 04/18/2014 Telephone [facility] [address] [place] [id number] Bernardino Brown MD [address] [place] [phone] Concerns Social History Tobacco Use Types [...] encounter Miscellaneous Notes * Telephone Encounter - Kedar Ngo MD - 04/18/2014 2:32 PM CDT Spoke to mother and told her that Erick can go back to school. Only active blisters are in his mouth. No active draining blisters in on skin. No fevers. * Telephone Encounter - Mary Ellen Sanchez - 04/18/2014 12:17 PM CDT Erick Triana's, 13 y.o. male, mother is calling with concerns regarding Erick's school. Erick was diagnosed at the ER last night with hand foot & mouth and sent home from school. Mother wishes to speak to a provider so that she knows when he will no longer contagious and able to return to school. She was not present at the ER so would like a trained medical professional to walk her through this. Instructed that provider will call back at their earliest convience. documented in this encounter Plan of Treatment Not on file documented as of this encounter Visit Diagnoses Not on filedocumented in this encounter Care Teams Cake Former Relationship Specialty Start Date End Date Bernardino Brown MD [address] [place] [phone] PCP - General Pediatrics 05/16/13 04/30/14 Sera Leonard DO [address] [place] [phone] Resident Pediatrics 09/27/13 11/04/14 documented as of this encounter
--- OUTSIDE RECORDS SUMMARY | 2024-08-06 19:03 | XMS_ITS | Encounter Summary ---
Author Organization [facility] Address [address] [facility] [place] [address] Care Team Providers Care Fiber Technologist Name Role Phone Godfrey Curry MD Primary Care Provider [phone] Dipika Reddy MD Unavailable [phone] Reason for Visit * Reason Onset Date Comments Concerns 10/21/2016 Encounter Details Date Type Department Care Team (Late st Contact Info) Description 10/21/2016 Telephone [facility] - [facility] [address] [place] [id number] Godfrey Curry MD [address] [place] [phone] Concerns Social History Tobacco Use Types [...] encounter Miscellaneous Notes * Telephone Encounter - Xiomy Bailey APRN-MARYLOU - 10/21/2016 12:15 PM CDT Reviewed transmission of viruses with mother and ways to help decrease the spread of infection. * Telephone Encounter - Jeanie Pritchett - 10/21/2016 11:57 AM CDT Erick Garcialivan's, 16 y.o. male, mother is calling with concerns. Mom states that he was diagnosedwith an URI and mom wants to know if it is contagious. Instructed that provider will call back at their earliest convenience. documented in this encounter Plan of Treatment Not on file documented as of this encounter Visit Diagnoses Not on filedocumented in this encounter Care Teams Fiber Technologist Relationship Specialty Start Date End Date Godfrey Curry MD [facility] [place] [phone] PCP - General Pediatrics 05/01/14 Dipika Reddy MD [facility] [place] [phone] Resident Student Resident 11/27/15 documented as of this encounter
--- OUTSIDE RECORDS SUMMARY | 2024-08-06 19:03 | XMS_ITS | Encounter Summary ---
Author Organization [facility] Address [address] [place] [address] Care Team Providers Care Animal Husbandry Teacher Name Role Phone Bernardino Brown MD Primary Care Provider [phone] Sera Leonard DO Unavailable [phone] Reason for Referral * - Closed Specialty Diagnoses / Procedures Referred By Contonesimo t Referred To Contact Diagnoses Vision disturbance Ivet Hinton DO [address] [place] [address] Referral ID Status Reason Start Date Expiration Date V isits Requested Visits Authorized [id number] Closed Specialty Services Required 11/02/2013 05/01/2014 1 1 Reason for Visit * Reason Comments Complete Physical Exam Encounter Details Date Type Department Care Team (Latest Contact Info) Description 11/02/2013 2:11 PM CDT - 11/02/2013 4:20 PM CDT Hospital Encounter [facility] [address] [place] [address] Ivet Hinton DO [address] [place] [address] Discharge Disposition: Home or Self Care Social [...] Sign Reading Time Taken Comments Blood Pressure 118/68 11/02/2013 2:13 PM CDT Pulse - - Temperature 36.9 ??C (98.4 ??F) 11/02/2013 2:13 PM CD T Respiratory Rate - - Oxygen Saturation - - Inhaled Oxygen Concentration - - Weight 97.1 kg (214 lb) 11/02/2013 2:13 PM CDT Height 163.5 cm (5' 4.37 ) 11/02/2013 2:13 PM CD T Body Mass Index 36.31 11/02/2013 2:13 PM CDT Body Mass Index Percentile 99.73% 11/02/2013 2:1 3 PM CDT Growth Chart: CDC (Boys, 2-2 0 Years) documented in this encounter Discharge Instructions * Patient Instructions* Ivet Hinton DO - 11/02/2013 4:03 PM CDT Images from the original note were not included. Keep working on being active and good food choices. Decrease sweets and sugary drinks. Get blood work drawn before leaving today. Referral sent to optometry for eye exam. Follow-up in 3 months for weight check if still in town. YOUR GROWING CHILD: ELEVEN to FOURTEEN YEARS Child???s Name: Erick Triana Today???s Date: 11/02/2013 Wt Readings from Last 1 Encounters: 11/02/13 97.07 kg (214 lb) (99.83%*) * Growth percentiles are based on CDC 2-20 Years data. Ht Readings from Last 1 Encounters: 11/02/13 1.635 m (5' 4.37 ) (74.02%*) * Growth percentiles are based on CDC 2-20 Years data. If you need to reach a smoke chaser after normal business hours, please call our After Hours number at [phone]. Poison Control: IMMUNIZATIONS Your child may receive vaccines today. Please see our current immunization schedule for details around this age. AGE of YOUR CHILD IMMUNIZATIONS 11 YEARS Menactra (Meningococcal) Tdap Gardasil (HPV) 16 YEARS Menactra (Meningococcal) Yearly Influenza vaccine HPV vaccine is 3 doses; 2nd dose is 1-2 months after first dose and 3rd dose is 6 months after the first dose DEVELOPMENT Girls: In early adolescence most girls have a growth spurt, accompanied by pubertal changes such aschanges in fat distribution to a more womanly shape and development (or further development) of breasts, underarm hair, pubic hair, acne, and menstrual cycles. Boys: At this age, most boys are beginning puberty, with testicular growth, underarm and pubic hairdevelopment, voice changes, and acne. A growth spurt may occur now or later. With all of these physical as well as emotional changes, boys and girls at this age have an increased need for privacy. Parents should provide information about and discuss with their child the physical and emotional changes that occur with puberty. Encourage your teenager to talk to you about their feelings, concerns, and questions, and make them feel comfortable when they do. Also teach your chi ld the importance of delaying sexual behavior. The adolescent???s peer group continues to be very important to him/her. Regularly talk with your child about avoiding cigarettes, alcohol, drugs, and inhalants. Also discuss how to deal with peer pressure. It is important to support and enhance [...] especially if there are concerns or questions. Encourage your child to engage in physical activity 60 minutes a day and limit nonacademic screen time to less than 2 hours a day. This is also a good age for increasing your child???s responsibilities by allowing your child to share in (or continuing to share in) auto body straightener. Also increase awareness about community issues and needs. Continue to teach good hygiene and make [...] food, and soda available at home. DISCIPLINE While your adolescent is developing physically and mentally, he/she still does not have the experience and judgment of an adult. Continue to be actively involved in your child???s life, providing loving parenting, appropriate limits, and respect for your maturing child. Parents must continue consistent, loving discipline so the child will know what behavior is expected of him/her. Teach respect for authority, how to resolve conflicts, and how to handle anger appropriately. Explain and establish consequences for unacceptable behavior to your child and enforce these consequences. Most importantly, be a good role model! documented in this encounter Progress Notes * Ivet Hinton DO - 11/02/2013 6:47 PM CDT Images from the original note were not included. [facility] Well Child Visit Erick Triana is a 13 y.o. male who is here today for his adolescent well child checkup. SUBJECTIVE Acute concerns today Vision. Difficulty seeing especially when in back of class. Has not seen optometry previously. Medication list reviewed with mother and child: Currently on no medications Allergies: Review of patient's allergies indicates no known allergies. Nutrition: Variety of food and Obesity Sleep/Fatique: Well Screen Time: Is there a TV or Internet connected device in the bedroom? Yes Hours of screen time per day: i-phone several hours per day H - Lives with Parents mom, step-dad, sister 3 years. 2 dogs no smoke exposure E - Grades are fair to poor in 7th grade; better in previous years. States a lot of issues with teachers not caring and calling students stupid. Many students have left school previously because of similar issues. Mom has tried to discuss with principal without any results. Family is looking to move to [place] soon. Education/future plans: wants to be vet for marine animals A - Involved in [employer] racing D - During private interview, denies alcohol, marijuana, or other illicit drug use S - Is not sexually active; hetero-sexual preference, no history of previous sexually transmitted infections S - Denies depression, anxiety, or thoughts of suicide Adolescent concerns: none Urine: Normal urination Stool: Normal stooling Hearing/Vision: Parental perception of hearing is normal and Child's perception of hearing is normal Vision- difficulty Dental: Discussed teeth brushing with parents, Referral for routine preventative dental care every 6 monthsand getting braces Tuberculosis Screening: Tuberculosis screening not performed this visit Anticipatory Guidance: The following topics were discussed: Peer relations, School performance, Exercise/Physical activity, Television, Bicycle safety/helmet, Seatbelts/Airbags, Chores, Alcohol, Drugs and Smoking HISTORY Family History Problem Relation Age of Onset ??? Bleeding Disorders Neg Hx ??? Childhood Hearing Disorder Neg Hx ??? Anesthesia Reaction Maternal Grandmother ??? Learning Disability Mother and possibly in maternal grandmother ??? Depression extended maternal family Past Medical History Diagnosis Date ??? Anatomic airway obstruction ??? Seasonal allergies ??? KEYANA (obstructive sleep apnea) post T&A 2006--continued snoring sleep study 09/22/10 AHI 1.5 O2 desat 91% ??? Thyroid activity decreased ??? Allergic rhinitis 05/19/2011 ??? Torsion of testicle R testicle History Social History Narrative Lives at home [...] are stupid . Never been sexually active. DEVELOPMENT School performance and Peers Handwriting within normal limits and Sports and gross motor skills within normal limits OBJECTIVE Vitals: Temp: 98.4 ??F Height: 163.5 cm (5' 4.37 ) 74.02%ile based on CDC 2-20 Years [id number] data. Weight: 97.07 kg (214 lb) 99.83%ile based on CDC 2-20 Years [id number] data. BP: 118/68, 73.8% systolic and 64.2% diastolic of BP percentile by age, sex, and height. 129/83 is approximately the 95th BP percentile reading. BMI: Body mass index is 36.31 kg/(m^2). 99.43%ile based on CDC 2-20 Years BMI-for-age data. Physical Exam: General: Obese, healthy, alert and no distress, cooperative. Head: normocephalic, atraumatic Neuro: alert, oriented, normal speech, no focal findings or movement disorder noted. Gait and station normal. Eyes: no conjunctival injection, crusting or discharge, PERRL Ears: canals clear, tympanic membranes normal, hearing intact to voice Nose: septum midline, no deformities, nares patent, normal mucosa without swelling, no polyps, no bleeding, no significant discharge Oropharynx: tongue, pharynx and palate have no inflammation or suspicious lesions. Tonsils - tonsils are absent. Teeth normal. Neck: no adenopathy, supple, ROM intact Lungs: breath sounds symmetrical without rales or wheezes, good air movement and relaxed breathing without tachypnea or accessory muscle use Heart: regular rate and rhythm, normal S1 and S2, no murmurs Abdomen: soft, non-tender,+ bowel sounds, non-distended and no hepatosplenomegaly or masses appreciated Skin: no rashes Extremities: No clubbing, cyanosis or edema, moves extremities well Genitourinary: Normal male genitalia, Nba 2 Labs/Immunizations: Labs indicated today: LIPID PROFILE: Indicated and ordered due to risk factors, AST/ALT and Labs ordered and family instructed to obtain labs IUTD per parental report. Records were faxed over and was told had his as well when sister was seenseveral months ago, but could not locate today in clinic Visual Acuity Screening Right eye Left eye Both eyes Without correction: 20/50 20/40 With correction: ASSESSMENT AND PLAN Visual disturbance Difficulty with vision noted especially at school when in back of classroom. Vision screen 20/40 (left) and 20/50 (right). Plan: - Optometry referral WCC (well child check) Erick Triana is here for his adolescent well child check with obesity and normal development. Immunizations UTD per report. ?? Immunizations today: none ?? Dental referral for prevention ?? Age appropriate anticipatory guidance provided ?? Return for next well child check sooner if concerns arise. Obesity BMI >99%. Has lost approximately 4 lbs in past 2 months. No major lifestyle modifications made. Plan: - Lipid profile - AST/ALT - Follow-up in 3 months if still living in town - Lifestyle modifications reviewed including limiting sugar drinks and sweets. Increased physical activity - Consider referral to weight management clinic if does not move to [place] - Also may be text for teens eligible if still living in [facility] in a year Return in about 3 months (around 02/01/2014). Plan of care discussed with Dr. Stephanie Hinton DO * Bernardino Brown MD - 11/02/2013 6:47 PM CDT I reviewed history and physical exam with Resident at the time of the visit. Patient seen and discussed with patient and mother Patient presents for [facility] as new patient; difficulty seeing at school Considering move to [facility] property in [place] Exam: BP 118/68 Temp 98.4 ??F (Tympanic) Wt 97.07 kg (214 lb) BMI 36.31 kg/m2 Overweight Alert, interactive Assessment: overweight teen with some wt control recent past Plan: Optometry assessment Weight management here or in [place] RTC in 3 months if still residing locally I agree with diagnosis as documented in resident note. I agree with documented plan of care. Bernardino Brown MD documented in this encounter Miscellaneous Notes * Miscellaneous Scans - Document, Scanned - 11/03/2013 5:37 PM CDT documented in this encounter Plan of Treatment Scheduled Referrals Name Type Priority Associated Diagnoses Orde r Schedule Referral to Optometry Outpatient Referral Routine Vision disturbance 1 Occurrences starting 11/02/2013 until 11/02/2014 documented as of this encounter Procedures Procedure Name Priority Date/Time Associated Diagnosis Comments ALT Routine 11/02/2013 4:26 PM CDT Obesity AST BLOOD Routine 11/02/2013 4:26 PM CDT Obesity LIPID PROFILE Routine 11/02/2013 4:26 PM CDT Obesity documented in this encounter Results * (ABNORMAL) AST BLOOD (11/02/2013 4:26 PM CDT) AST 164(H) 3 - 35 U/L 11/02/2013 5:14 PM CDT [facility] Blood BLOOD SPECIMEN / Unknown Lab Venipuncture / Unknown 11/02/2013 4:26 PM CDT 11/02/2013 4:42 PM CDT Ivet Hinton DO LAB - CHEMISTRY ORDE [employer] Performing Organization Address City/[facility]/ZIP Co de Phone Number [facility] [address] [place] [address] * (ABNORMAL) ALT (11/02/2013 4:26 PM CDT) Pathologist [facility] ALT 348(H) 6 - 46 U/L 11/02/2013 5:14 PM CDT [facility] Blood BLOOD SPECIMEN / Unknown Lab Venipuncture / Unknown 11/02/2013 4:26 PM CDT 11/02/2013 4:42 PM CDT Ivet Hinton DO LAB - CHEMISTRY ORDE [employer] Performing Organization Address City/[facility]/[place] Co de Phone Number [facility] [address] [place] [address] * (ABNORMAL) LIPID PROFILE (11/02/2013 4:26 PM CDT) Pathologist [facility] Cholesterol 70 <170 mg/dL 11/02/2013 5:14 PM CDT [facility] Triglycerides 109 42 - 330 mg/dL 11/02/2013 5:14 PM T [facility] HDL Cholesterol 31(L) >40 mg/dL 5:14 PM T [facility] LDL Calculated <20 <100 mg/dL 11/02/2013 5:14 PM T [facility] VLDL Calculated 22 12 - 38 mg/dL 11/02/2013 5:14 PM T [facility] Chol HDL Ratio 2.3 <=5.0 11/02/2013 5:14 PM T [facility] Blood BLOOD SPECIMEN / Unknown Lab Venipuncture / Unknown 11/02/2013 4:26 PM CDT 11/02/2013 4:42 PM CDT Narrative [facility] - 11/02/2013 5:14 PM CDT Lipid Profile Comment: Adult references ranges are the recommendation of the [place] [employer] , for those patients >18 [...] Ivet Hinton DO LAB - CHEMISTRY HILDA [employer] Organization Address City/State/ZIP Co de Phone Number [facility] [address] [facility] [place] [address] documented in this encounter Visit Diagnoses Diagnosis Vision disturbance- Primary Unspecified visual disturbance Obesity Obesity, unspecified * Assessment & Plan Note - Ivet Hinton DO - 11/02/2013 6:51 PM CDT Associated Problem(s): Obesity BMI >99%. Has lost approximately 4 lbs in past 2 months. No major lifestyle modifications made. Plan: - Lipid profile - AST/ALT - Follow-up in 3 months if still living in town - Lifestyle modifications reviewed including limiting sugar drinks and sweets. Increased physical activity - Consider referral to weight management clinic if does not move to [place] - Also may be text for teens eligible if still living in [facility] in a year * Assessment & Plan Note - Ivet Hinton DO - 11/02/2013 6:48 PM CDT Associated Problem(s): WCC (well child check) Erick Triana is here for his adolescent well child check with obesity and normal development. Immunizations UTD per report. ?? Immunizations today: none ?? Dental referral for prevention ?? Age appropriate anticipatory guidance provided ?? Return for next well child check sooner if concerns arise. * Assessment & Plan Note - Ivet Hinton DO - 11/02/2013 6:46 PM CDT Associated Problem(s): Myopia Difficulty with vision noted especially at school when in back of classroom. Vision screen 20/40 (left) and 20/50 (right). Plan: - Optometry referral documented in this encounter Care Teams Animal Husbandry Teacher Relationship Specialty Start Date End Date Bernardino Brown MD [address] [place] [phone] PCP - General Pediatrics 05/16/13 04/30/14 Sera Leonard DO [address] [place] [phone] Resident Pediatrics 09/27/13 11/04/14 documented as of this encounter
--- OUTSIDE RECORDS SUMMARY | 2024-08-06 19:03 | XMS_ITS | Encounter Summary ---
Author Organization [facility] Address [address] [place] [address] Care Team Providers Care Reports Analyst Name Role Phone Bernardino Brown MD Primary Care Provider [phone] Bernardino Brown MD Unavailable [phone] Reason for Visit * Reason Comments Pain Head mom states that pt h as been having more frequent NG. Pt states that his head hurt this am but got better after he ate lunch. 0/10 now. denies blurriness, dizziness, fevers. Pain Side started last night p ointing to left flank. denies frequency or burning. pt states that it hurts to sit down and when he takes deep breath in. Encounter Details Date Type Department Care Team (Late st Contact Info) Description 08/17/2013 1:54 PM NAPPER TENDER - 08/17/2013 4:45 PM NAPPER TENDER Emergency ER at [address] [address] Batsheva Morataya, SKI TOP TRIMMER-TYPEWRITER OPERATOR AUTOMAT[employer] [address] [place] [address] [address] [place] [address] Headache (Primary Dx); Left flank pain Discharge Disposition: Home or Self Care [...] Sign Reading Time Taken Comments Blood Pressure 119/57 08/17/2013 2:03 PM NAPPER TENDER Pulse 88 08/17/2013 2:02 PM NAPPER TENDER Temperature 36.8 ??C (98.2 ??F) 08/17/2013 2:03 PM CS T Respiratory Rate 16 08/17/2013 2:02 PM NAPPER TENDER Oxygen Saturation - - Inhaled Oxygen Concentration - - Weight 98.7 kg (217 lb 9.5 oz) 08/17/2013 2:02 P M NAPPER TENDER Height - - Body Mass Index - - documented in this encounter Discharge Instructions * Discharge Instructions* Batsheva Morataya, SKI TOP TRIMMER-TYPEWRITER OPERATOR AUTOMATIC - 08/17/2013 4:29 PM NAPPER TENDER Images from the original note were not included. General Headache Without Cause A general headache is pain or discomfort felt around the head or neck area. The cause may not be found. HOME CARE ?? Keep all doctor visits. ?? Only take medicines as told by your doctor. ?? Lie down in a dark, quiet room when you have a headache. ?? Keep a journal to find out if certain things bring on headaches. For example, write down: ?? What you eat and drink. ?? How much sleep you get. ?? Any change to your diet or medicines. ?? Relax by getting a massage or doing other relaxing activities. ?? Put ice or heat packs on the head and neck area as told by your doctor. ?? Lessen stress. ?? Sit up straight. Do not tighten (tense) your muscles. ?? Lessen how much caffeine you drink, or stop drinking caffeine. ?? Eat and sleep on a regular schedule. ?? Get 7 to 9 hours of sleep, or as told by your doctor. ?? Keep lights dim if bright lights bother you or make your headaches worse. GET HELP RIGHT AWAY IF: ?? Your headache becomes really bad. ?? You have a fever. ?? You have a stiff neck. ?? You have trouble seeing. ?? Your muscles are weak, or you lose muscle control. ?? You lose your balance or have trouble walking. ?? You feel like you will pass out (faint), or you pass out. ?? You have really bad symptoms that are different than your first symptoms. ?? You have problems with the medicines given to you by your doctor. ?? Your medicines do not work. ?? Your headache feels different than the other headaches. ?? You feel sick to your stomach (nauseous) or throw up (vomit). MAKE SURE YOU: ?? Understand these instructions. ?? Will watch your condition. ?? Will get help right away if you are not doing well or get worse. Document Released: 04/27/2009 Document Revised: 10/10/2012 Document Reviewed: 07/08/2012 ExitCare?? Patient Information ??2013 [employer].General Headache Without Cause A general headache is pain or discomfort felt around the head or neck area. The cause may not be found. HOME CARE ?? Keep all doctor visits. ?? Only take medicines as told by your doctor. ?? Lie down in a dark, quiet room when you have a headache. ?? Keep a journal to find out if certain things bring on headaches. For example, write down: ?? What you eat and drink. ?? How much sleep you get. ?? Any change to your diet or medicines. ?? Relax by getting a massage or doing other relaxing activities. ?? Put ice or heat packs on the head and neck area as told by your doctor. ?? Lessen stress. ?? Sit up straight. Do not tighten (tense) your muscles. ?? Quit smoking if you smoke. ?? Lessen how much alcohol you drink. ?? Lessen how much caffeine you drink, or stop drinking caffeine. ?? Eat and sleep on a regular schedule. ?? Get 7 to 9 hours of sleep, or as told by your doctor. ?? Keep lights dim if bright lights bother you or make your headaches worse. GET HELP RIGHT AWAY IF: ?? Your headache becomes really bad. ?? You have a fever. ?? You have a stiff neck. ?? You have trouble seeing. ?? Your muscles are weak, or you lose muscle control. ?? You lose your balance or have trouble walking. ?? You feel like you will pass out (faint), or you pass out. ?? You have really bad symptoms that are different than your first symptoms. ?? You have problems with the medicines given to you by your doctor. ?? Your medicines do not work. ?? Your headache feels different than the other headaches. ?? You feel sick to your stomach (nauseous) or throw up (vomit). MAKE SURE YOU: ?? Understand these instructions. ?? Will watch your condition. ?? Will get help right away if you are not doing well or get worse. Document Released: 04/27/2009 Document Revised: 10/10/2012 Document Reviewed: 07/08/2012 ExitCare?? Patient Information ??2013 [employer]. ER TENDER * Discharge Instructions* Document, Scanned - 08/18/2013 6:46 PM NAPPER TENDER ER TENDER documented in this encounter Medications at Time of Discharge Medication Sig Dispensed Refills Start Date End Date albuterol HFA (PROVENTIL;VENTOLIN;PROA IR) 108 (90 BASE) MCG/ACT inhalerIndications:Cough Inhale 2 Puffs by mouth every 6 hours as needed (per an action plan). 1 Inhaler 6 05/19/2011 11/02/2013 fexofenadine (PATRIZIA) 180 MG tablet Take 1 Tab by mouth at bedtime. 30 Tab 0 04/05/2013 11/02/2013 documented as of this encounter ED Notes * Batsheva Morataya APRN-CNP - 08/17/2013 2:26 PM CST Images from the original note were not included. EMERGENCY DEPARTMENT 08/17/2013 Dear Doctor, We had the pleasure of caring for your patient, Erick Triana in our emergency department on 08/17/2013. A note from the provider(s) who cared for your patient is attached. Should you wish to access any laboratory results, please call . Should you wish to access any radiology results, please call , option 3. In addition, you can access patient information 24 hours a day, from any computer, through [employer] the online version of our electronic medical record. If you would like to use this service, please call Cherise Mejias, Connectivity Coordinator, at . We appreciate the opportunity to care for your patients. If you would like additional information, please call the emergency department directly at . Sincerely, Batsheva Morataya APRN-MARYLOU Division of Emergency Medicine [place], [place] [facility] EMERGENCY DEPARTMENT Provider contact with the patient: 08/17/2013 14:26 Erick Triana [id number] [facility] EMERGENCY DEPARTMENT History Chief Complaint Patient presents with ??? Pain Head mom states that pt has been having more frequent NG. Pt states that his head hurt this am but got better after he ate lunch. 0/10 now. denies blurriness, dizziness, fevers. ??? Pain Side started last night pointing to left flank. denies frequency or burning. pt states that it hurts to sit down and when he takes deep breath in. HPI Comments: 13 y/o male presents with Mom for one month history of intermittent HAs and 2 day history of left flank pain. Patient states the HAs occur at different times throughout the day but do not wake him up at night. No vision changes, photophobia, or vomiting with HAs. Mom usually gives Advil when HAs occur and patient reports relief when given. Today patient had a NG before lunch at school, but states it went away after he ate. Pt does not normally eat breakfast. Admits to drinking too much soda even though Mom does not keep it in the house. Also eats a lot of sugary foods. Also concerned with left flank pain that started last night. States he had dysuria lasting about 10 minutes today, but states it's from drinking too much soda. Also reports a few minutes of testicular pain several days ago but thinks it is from wearing pants that were too tight. Pain quickly went away after he changed into looser fitting pants. Mom wanted us to know that since he had testicular torsion at 5 years old. Denies any swelling at the time of incident and has not had any pain since then. 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 Anatomic airway obstruction ??? Seasonal allergies ??? KEYANA (obstructive sleep apnea) post T&A 2006--continued snoring sleep study 09/22/10 AHI 1.5 O2 desat 91% ??? Thyroid activity decreased ??? Allergic rhinitis 05/19/2011 ??? Torsion of testicle R testicle Past Surgical History Procedure Date ??? Tonsillectomy and adenoidectomy 04/01/07 ??? Adenoidectomy ??? Tonsillectomy Medications Current Outpatient Prescriptions Medication Status Sig Dispense Refill ??? fexofenadine (PATRIZIA) 180 MG tablet Active Take 1 Tab by mouth at bedtime. 30 Tab 0 ??? albuterol HFA (PROVENTIL;VENTOLIN;PROAIR) 108 (90 BASE) MCG/ACT inhaler Active Inhale 2 Puffs by mouth every 6 hours as needed (per an action plan). 1 Inhaler 6 Review of Systems Review of Systems Constitutional: Negative for fever, activity change and appetite change. HENT: Negative for congestion, sore throat and rhinorrhea. Respiratory: Negative for cough. Gastrointestinal: Negative for vomiting and diarrhea. Genitourinary: Positive for dysuria (occasional), flank pain (left) and testicular pain (for a few minutes earlier this week, thinks it was from wearing tight pants). Negative for frequency, decreased urine volume, penile swelling and scrotal swelling. Musculoskeletal: Negative for back pain. Neurological: Positive for headaches. All relevant systems reviewed. BP 119/57 Pulse 88 Temp 98.2 ??F Resp 16 Wt 98.7 kg (217 lb 9.5 oz) Physical Exam Physical Exam Nursing note and vitals reviewed. Constitutional: He is oriented to person, place, and time. He appears well- developed and well-nourished. No distress. Obese white male, sitting up on stretcher, answers questions appropriately HENT: Head: Normocephalic and atraumatic. Right Ear: External ear normal. Left Ear: External ear normal. Nose: Nose normal. Mouth/Throat: Oropharynx is clear and moist. No oropharyngeal exudate. Eyes: EOM are normal. Pupils are equal, round, and reactive to light. Neck: Normal range of motion. Neck supple. Cardiovascular: Normal rate, regular rhythm and normal heart sounds. Pulmonary/Chest: Effort normal and breath sounds normal. No respiratory distress. Abdominal: Soft. Bowel sounds are normal. He exhibits no distension and no mass. There is no tenderness. There is no rebound and no guarding. No CVA tenderness; points to left lateral side for location of pain; no worse on palpation Musculoskeletal: Normal range of motion. Lymphadenopathy: He has no cervical adenopathy. Neurological: He is alert and oriented to person, place, and time. Skin: Skin is warm and dry. Psychiatric: He has a normal mood and affect. Procedures Procedures Lab/SPO2 Interpretation Progress Notes Pt alert and calm. Appears well-hydrated without signs of serious illness. No concern for diabetes at this time based on urinalysis and random blood glucose. Discussed maintaining a healthy weight and eating a balanced diet, eating breakfast every day, avoiding junk food/sodas, and getting daily exercise. Referred to [facility] clinic at [facility] for further evaluation. HAs likely related to patient not eating breakfast or having any food until lunch time. Also likely related to high caffeine intake. Supportive care instructions given for left-sided flank/back pain. Reassurance given to Mom and patient. Will f/u with PMD. Discharge instructions as detailed below. Mother verbalized understanding. ED Course Results for orders placed during the hospital encounter of 08/17/13 URINALYSIS ROUTINE AUTO Component Value Range Color UA Yellow Straw, Yellow, Dark Yellow Clarity UA Clear Specific [place] UA 1.020 1.005-1.030 pH UA 7.0 5.0-8.0 pH Protein UA Negative Negative Blood UA Negative Negative Leukocyte UA Negative Negative Nitrite UA Negative Negative Glucose UA Negative Negative Ketone UA Negative Negative Bili UA Negative Negative Urobilinogen UA 1.0 0.1-1.0 EU/dL CULTURE URINE Component Value Range Culture <10,000 CFU/mL normal urogenital brian URINALYSIS MICROSCOPIC ONLY Component Value Range RBC UA 0-2 0-2, 2-5 # /hpf WBC UA 0-2 0-2, 2-5 # /hpf Bacteria UA 1+ (*) None Seen, Trace Epithelial Cell UA 2-5 0-2, 2-5 Mucus GLUCOSE - POINT OF CARE Component Value Range Glucose WB/POC 84 70-106 mg/dL Urine culture pending Blood glucose 84; visual acuity WNL to both eyes Medical Decision Making I have reviewed the: Nursing Notes and Vitals. I have discussed the case with Family/Caregiver. Plan: May take 600 mg ibuprofen every 6 hours or 1000 mg Tylenol every 4 hours as needed for headache Drink plenty of water each day (aim for at least 40 ounces per day) and eat a healthy breakfast every morning Avoid sodas and other sugary junk foods Get 30-60 minutes of exercise each day Follow up with the [facility] to discuss safe and healthy weight loss Follow up with PMD in about 1 week if headaches continue Orders Placed This Encounter ??? CULTURE URINE ??? URINALYSIS ROUTINE AUTO ??? URINALYSIS MICROSCOPIC ONLY Pt discharged active, alert and in no acute distress. Clinical Impression Final diagnoses: Headache (Primary) Left flank pain Obesity Parental concern ER TENDER documented in this encounter Miscellaneous Notes * Miscellaneous Scans - Document, Scanned - 08/18/2013 6:46 PM CST ER TENDER documented in this encounter Plan of Treatment Scheduled Orders Name Type Priority Associated Diagnoses Order Schedule GLUCOSE - POINT OF CARE POCT No Acknowledgement Routine ONCE for 1 Occurrences starting 08/18/2013 until 08/18/2013 documented as of this encounter Procedures Procedure Name Priority Date/Time Associated Diagnosis Comments URINALYSIS REFLEX TO MICROSCOPIC NO CULTURE STAT 08/17/2013 3:15 PM NAPPER TENDER CULTURE URINE STAT 08/17/2013 3:15 PM NAPPER TENDER URINE MICROSCOPIC ONLY STAT 08/17/2013 3:15 PM NAPPER TENDER documented in this encounter Results * GLUCOSE - POINT OF CARE (08/17/2013 3:19 PM NAPPER TENDER) Blood BLOOD SPECIMEN / Unknown 08/17/2013 3:19 PM NAPPER TENDER 08/18/2013 9:33 AM NAPPER TENDER Batsheva Morataya APRN-TYPEWRITER OPERATOR AUTOMATIC LAB - POINT OF CARE ORDERABLES [facility] [address] [place] [address] * CULTURE URINE (08/17/2013 3:15 PM NAPPER TENDER) Culture <10,000 CFU/mL normal urogenital brian 08/19/2013 6:19 PM [facility] MICROBIOLOGY Urine URINE SPECIMEN OBTAINED BY CLEAN CATCH PROCEDURE / Unknown 08/17/2013 3:15 PM NAPPER TENDER 08/17/2013 3:26 PM NAPPER TENDER Batsheva Morataya SKI TOP TRIMMER-[facility] - MICRO BIOLOGY ORDERABLES Performing Organization Address City/[facility]/ZIP Co de Phone Number [facility] MICRO[facility]OLOG[facility] [address] * URINALYSIS ROUTINE AUTO (08/17/2013 3:15 PM NAPPER TENDER) Color UA Yellow Straw, Yellow, Dark Yellow 08/17/2013 3:34 PM [facility] Clarity UA Clear 08/17/2013 3:34 PM [facility] Specific [place] UA 1.020 1.005 - 1.030 08/17/2013 3:34 PM [facility] pH UA 7.0 5.0 - 8.0 pH 08/17/2013 3:34 PM [facility] Protein UA Negative Negative 08/17/2013 3:34 PM [facility] Blood UA Negative Negative 08/17/2013 3:34 PM [facility] Leukocyte UA Negative Negative 08/17/2013 3:34 PM [facility] Nitrite UA Negative Negative 08/17/2013 3:34 PM [facility] Glucose UA Negative Negative 08/17/2013 3:34 PM [facility] Ketone UA Negative Negative 08/17/2013 3:34 PM [facility] Bilirubin UA Negative Negative 08/17/2013 3:34 PM [facility] Urobilinogen UA 1.0 0.1 - 1.0 EU/dL 08/17/2013 3:34 PM [facility] Urine URINE SPECIMEN OBTAINED BY CLEAN CATCH PROCEDURE / Unknown 08/17/2013 3:15 PM NAPPER TENDER 08/17/2013 3:26 PM NAPPER TENDER Batsheva Morataya SKI TOP TRIMMER-TYPEWRITER OPERATOR AUTOMATIC LAB - URINA LYSIS ORDERABLES Performing Organization Address [facility] Co de Phone Number [facility] [address] [place] [address] * (ABNORMAL) URINALYSIS MICROSCOPIC ONLY (08/17/2013 3:15 PM NAPPER TENDER) RBC UA 0-2 0-2, 2-5 # /hpf 08/17/2013 3:40 PM NAPPER TENDER [facility] WBC UA 0-2 0-2, 2-5 # /hpf 08/17/2013 3:40 PM NAPPER TENDER [facility] Bacteria UA 1+(A) None Seen, Trace 08/17/2013 3:40 PM NAPPER TENDER [facility] Epithelial Cell UA 2-5 0-2, 2-5 08/17/2013 3:40 PM NAPPER TENDER [facility] Mucus UA 08/17/2013 3:40 PM NAPPER TENDER [facility] Comment:Trace Urine URINE SPECIMEN OBTAINED BY CLEAN CATCH PROCEDURE / Unknown 08/17/2013 3:15 PM NAPPER TENDER 08/17/2013 3:26 PM NAPPER TENDER Batsheva Morataya SKI TOP TRIMMER-TYPEWRITER OPERATOR AUTOMATIC LAB - URINA LYSIS ORDERABLES Performing Organization Address [facility] de Phone Number [facility] [address] [place] [phone] documented in this encounter Visit Diagnoses Diagnosis Headache(784.0)- Primary Headache Left flank pain Abdominal pain, unspecified site documented in this encounter Care Teams Reports Analyst Relationship Specialty Start Date End Date Bernardino Brown MD [address] [place] [phone] PCP - General Pediatrics 05/16/13 04/30/14 Bernardino Brown MD [address] [place] [phone] [facility] 05/16/13 09/26/13 documented as of this encounter
--- OUTSIDE RECORDS SUMMARY | 2024-08-06 19:03 | XMS_ITS | Encounter Summary ---
Author Organization [facility] Address [address] [place] [address] Care Team Providers Care Senior Stereo Compiler Team Lead Name Role Phone Sera Leonard DO Unavailable [phone] Godfrey Curry MD Primary Care Provider [phone] Reason for Referral * Social Work - Closed Specialty Diagnoses / Procedures Referred By Nelli pinto Referred To Contact Diagnoses Allergic rhinitis Procedures AMB CONSULT TO SOCIAL WORK Xiomy Bailey APRN-CNP [address] [place] [id number] Referral ID Status Reason Start Date Expiration Date Visits Re quested Visits Authorized [id number] Closed 05/07/2014 11/03/2014 1 1 Reason for Visit * Reason Comments ER UC Follow-up resp, congestion, mae nd foot and mouth Encounter Details Date Type Department Care Team (Latest Contact Info) Description 05/07/2014 2:40 PM CDT - 05/07/2014 11:59 PM CDT Hospital Encounter [facility] - [facility] [address] [place] [address] Xiomy Bailey APRN-CNP [address] [place] [address] Discharge Disposition: Home or Self Care Social [...] Sign Reading Time Taken Comments Blood Pressure 100/62 05/07/2014 3:28 PM CDT Pulse 63 05/07/2014 3:28 PM CDT Temperature 36.9 ??C (98.5 ??F) 05/07/2014 3:28 PM CD T Respiratory Rate - - Oxygen Saturation 98% 05/07/2014 3:28 PM CDT Inhaled Oxygen Concentration - - Weight 94.4 kg (208 lb 3.2 oz) 05/07/2014 3:28 P M CDT Height - - Body Mass Index - - documented in this encounter Discharge Instructions * Patient Instructions* Xiomy Bailey APRN-CNP - 05/07/2014 3:57 PM CDT Call or bring patient in for evaluation if symptoms worsen, new symptoms develop, or worried documented in this encounter Medications at Time [...] fluticasone propionate (FLONASE) 50 MCG/ACT nasal spray [place] 2 Sprays into each nostril once daily. 1 Bottle 0 04/17/2014 10/30/2014 loratadine (CLARITIN) 10 MG tabletIndications:Al lergic rhinitis Take 1 Tab by mouth once daily. 30 Tab 3 05/07/2014 10/30/2014 documented as of this encounter Progress Notes * Xiomy Bailey, YOUTH ADV[employer]ATE-CUSTOM FRAMING SPECIALIST - 05/07/2014 3:05 PM CDT Images from the original note were not included. CHIEF COMPLAINT Chief Complaint Patient presents with ??? ER UC Follow-up resp, congestion, hand foot and mouth HPI Erick Triana is a 13 y.o.male who presents to the clinic today with his mother and sibling. Pt was seen in the ED on 04/17/14 for a herpangina. Patient has been much improved since this time. Mother is also concerned because there is black mold in the home they are living in. (In laws own home and are in the process of fixing). Patient has allergies to dust mites and mold and has been having some itchy eyes and nasal congestion in the morning. Pt has had good PO. Appropriate urine output. Neg for Hx of allergies, has taken allergy medication in the past but hasn't been taking it regularly ROS History obtained from: mother and patient General:negative for - fever ENT: positive for - nasal congestion Allergy: positive for - itchy/watery eyes, nasal congestion, seasonal allergies Respiratory: no cough, shortness of breath, or wheezing Cardiovascular: no chest pain or dyspnea on exertion Gastrointestinal: no abdominal pain, change in bowel habits, or black or bloody stools PMH/FmHx/SocHx History reviewed and appropriate changes made. PE BP 100/62 Pulse 63 Temp(Src) 98.5 ??F (Tympanic) Wt 94.439 kg (208 lb 3.2 oz) SpO2 98% General: healthy, alert and no distress Neuro: alert, oriented, normal speech, no focal findings or movement disorder noted Eyes: bilateral conjunctival injection, but no crusting or discharge, cobblestoning to lower eyelids bilaterally. Ears: canals clear, tympanic membranes normal, hearing intact to voice Nose: clear mucous drainage from both nares. Oropharynx: mucosa not inflamed Neck: no adenopathy, supple Lungs: breath sounds symmetrical without rales or wheezes, good air movement and relaxed breathing without tachypnea or accessory muscle use Heart: regular rate and rhythm, normal S1 and S2, no murmurs Abdomen: soft, non-tender, non-distended and no hepatosplenomegaly or masses Labs/Other Information Mother defers flu vaccine today ASSESSMENT AND PLAN Allergic rhinitis Hx and exam consistent with allergic rhinitis Has used Claritin in the past Refilled Claritin Social work consult regarding black mold Call or bring patient in for evaluation if symptoms worsen, new symptoms develop, or worried Follow up Follow up for ED visit for viral illness now resolved Well exam with some allergic concerns Call or bring patient in for evaluation if symptoms worsen, new symptoms develop, or worried Return in about 3 months (around 08/07/2014). MARY KATE Regan documented in this encounter Plan of Treatment Not on file documented as of this encounter Visit Diagnoses Diagnosis Allergic rhinitis * Assessment & Plan Note - Xiomy Bailey APRN-CNP - 05/07/2014 4:26 PM CDT Associated Problem(s): Follow up Follow up for ED visit for viral illness now resolved Well exam with some allergic concerns Call or bring patient in for evaluation if symptoms worsen, new symptoms develop, or worried * Assessment & Plan Note - Xiomy Bailey APRN-CNP - 05/07/2014 4:25 PM CDT Associated Problem(s): Allergic rhinitis Hx and exam consistent with allergic rhinitis Has used Claritin in the past Refilled Claritin Social work consult regarding black mold Call or bring patient in for evaluation if symptoms worsen, new symptoms develop, or worried documented in this encounter Care Teams Senior Stereo Compiler Team Lead Relationship Specialty Start Date End Date Labarge, Gene M, MD [address] [place] [id number] PCP - General Pediatrics 05/01/14 Sera Leonard DO Resident Pediatrics 09/27/13 11/04/14 documented as of this encounter
--- OUTSIDE RECORDS SUMMARY | 2024-08-06 19:03 | XMS_ITS | Encounter Summary ---
Author Organization [facility] Address [address] [place] [address] Care Team Providers Care Registered Sales Assistant Name Role Phone Godfrey Curry MD Primary Care Provider Dipika Reddy MD Unavailable Reason for Referral * Procedure (Routine) - Closed Specialty Diagnoses / Procedures Referred By Contonesimo pinto Referred To Contact Gastroenterology Diagnoses Liver disorder Procedures NEEDLE BIOPSY, LIVER Jose Rafael Thompson MD [address] [place] [address] Referral ID Status Reason Start Date Expiration Date Visits Re quested Visits Authorized [id number] Closed 11/12/2017 05/11/2018 1 1 * Evaluate & Treat (Routine) - Closed Specialty Diagnoses / Procedures Referred By Contact Referred To Contact Pediatric Gastroenterology Diagnoses Transaminitis Rani Solitario MD [address] [place] [address] [address] [place] [address] Jose Rafael Thompson MD [address] [place] [address] Referral ID Status Reason Start Date Expiration Date V isits Requested Visits Authorized [id number] Closed Specialty Services Required 10/06/2017 04/04/2018 1 1 Scheduling Instructions If you have not been contacted by an [facility] Business Database Analyst within 48 hours, please call [phone] to schedule an appointment. Reason for Visit * Reason Comments Elevated Liver Enzymes referred by derma tologist for elevated liver enzymes. pt would like to start taking acne medication but derm will not start him on it with elevated liver enzymes. he says when he drinks soda his left side hurts. * Evaluate & Treat (Routine) - Closed Specialty Diagnoses / Procedures Referred By Contact Referred To Contact Pediatric Gastroenterology Diagnoses Transaminitis Rani Solitario MD [address] [place] [address] [place] [address] Jose Rafael Thompson MD [address] [place] [address] Referral ID Status Reason Start Date Expiration Date V isits Requested Visits Authorized [id number] Closed Specialty Services Required 10/06/2017 04/04/2018 1 1 Encounter Details Date Type Department Care Team (Latest Contact Info) Description 11/12/2017 8:36 AM CDT - 11/12/2017 9:55 AM CDT Hospital Encounter [facility] Pediatrics - GI [address] [place] [address]. [place] [address] Jose Rafael Thompson MD [address] [place] [address] Discharge Disposition: Home or Self Care Social [...] Sign Reading Time Taken Comments Blood Pressure 120/84 11/12/2017 8:47 AM CDT Pulse - - Temperature - - Respiratory Rate - - Oxygen Saturation - - Inhaled Oxygen Concentration - - Weight 119.4 kg (263 lb 3.7 oz) 11/12/2017 8:47 AM CDT Height 179.4 cm (5' 10.63 ) 11/12/2017 8:47 AM C DT Body Mass Index 37.1 11/12/2017 8:47 AM CDT Body Mass Index Percentile 99.04% 11/12/2017 8:4 7 AM CDT Growth Chart: [facility] (Boys, 2-2 0 Years) documented in this [...] 07/05/2017 05/19/2018 documented as of this encounter Progress Notes * Jose Rafael Thompson MD - 11/12/2017 9:31 AM CDT Dear Godfrey Hui MD. Thank you for your consult on Erick Triana. I had the pleasure of seeing Erick in the Gastroenterology Clinic at [facility] on 11/12/2017. CHIEF COMPLAINT: He comes in for evaluation of 'elevated liver numbers'. HISTORY OF PRESENT ILLNESS: Patient was noted to have abnormal ALT. History by mom and child. He denies abdominal pain. Denies vomiting. Denies altered sensorium. He is obese and has minimal exercise. He has normal soft non bloody, non mucoid stools almost daily. He otherwise seems to be growing well. He denies any apparent stressors or trauma. Denies any fever, rashes, joint pain, mouth sores, lack or paucity of any limb movements, jaundice,hematemesis, or bleeding from any other site. REVIEW OF SYSTEMS: Constitutional : Fever (-), rashes (-) Eyes : Discharge (-) ENT : Mouth sores (-) CVS : Shortness of breath (-) Respiratory : Tachypnea (-) GI : Denies hematochesia. Musculoskeletal : Joint Swelling (-) MANAGER STARS : Altered Sensorium (-) Allergic : Anaphylaxis (-) Hematological : Petechiae (-) Review of Systems is positive per details in history. 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 levocetirizine (XYZAL) 5 MG tablet Take 5 mg by mouth once daily ??? doxycycline hyclate (VIBRAMYCIN) 100 MG capsule Take 1 capsule by mouth every 12 hours 60 capsule 2 ??? tretinoin (RETIN-A) 0.05 % cream Apply to affected area at bedtime 45 g 1 ??? benzoyl peroxide (BENZOYL PEROXIDE) 5 % wash Apply to affected area once daily 1 bottles 0 No current facility-administered medications for this encounter. PHYSICAL EXAMINATION: >99 %ile (Z= 2.74) based on CDC 2-20 Years [id number] data using vitals from 11/12/2017. BP 120/84 Ht 1.794 m (5' 10.63 ) Wt 119.4 kg (263 lb 3.7 oz) BMI 37.1 kg/m2 General: Patient in no acute distress. Acanthosis. HEENT: Atraumatic. Eyes: No redness. No Discharge. No Icterus. Neck: Supple. Nares: Patent. No bleeding. Skin: Okay. Oropharynx: No apparent mouth sores or ulcers. Lymphatic: No significant neck nodes. Chest: Equal air entry bilaterally. Cardiovascular: No apparent murmur. Abdomen: Soft, nontender, nondistended. No organomegaly noted. MANAGER STARS: No apparent focal deficits. Extremities: Warm, well perfused. Cap refill less than 2 seconds. IMPRESSION: Erick is a 17 y.o. 3 m.o. male who comes in for evaluation of elevated liver numbers. - I discussed extensively with caregivers the probable etiology for Erick's problems as well as treatment options. - Reviewed prior labs. - Infectious, rheumatological, genetic, metabolic causes, autoimmune disorders including RUTLEDGE can result in elevated transaminases. - Given presentation, likely RUTLEDGE which can cause steatosis and inflammation in the liver. - I suggest we get a CBC, CRP, CMP, Conjugated bilirubin, GGT, PT, PTT, INR, Viral Hepatitis panel,CK. - Alpha 1 antitrypsin, ceruloplasmin, anti LKM, LORI, F-actin would be a consideration. - Further testing based on these results could include vitamin levels, urine succinyl acetone, reducing substances. - Suggest to hold off on accutane - consider alternatives. - A liver biopsy may be required in future. - Would plan ultrasound abdomen. - Discussed portion size control. - Discussed the need for exercise and a healthy lifestyle. - Suggest visit with the dietitian. - Please keep us informed of progress. I would like to see him back in 2-3 month / earlier for any concerns. Plan of care, including education on the safe and effective use of medication(s) and/or medical equipment if prescribed, was discussed with the patient/family. Patient/family verbalized understandingand agreed with the treatment options discussed. Thank you for letting me participate in the care of your patient. Please do not hesitate to call back for any questions or concerns. documented in this encounter Plan of Treatment Scheduled Referrals Name Type Priority Associated Diagnoses Order Schedule Amb Pediatric Referral To GI @ ([facility]) Outpatient Referral Routine Transaminitis 1 Occurrences starting 11/12/2017 until 11/12/2017 documented as of this encounter Procedures Procedure Name Priority Date/Time Associated Diagnosis Comments TISSUE TRANSGLUTAMINASE AB IGA Routine 11/12/2017 9:57 AM CDT Liver disorder C-REACTIVE PROTEIN Routine 11/12/2017 9: 57 AM CDT Liver disorder LORI BLOOD SCREEN W/REFLEX TITER Routine 11/12/2017 9:57 AM CDT Liver disorder MICROSOMAL ANTIBODY LIVER/KIDNEY Routine 11/12/2017 9:57 AM CDT Liver disorder CERULOPLASMIN Routine 11/12/2017 9:57 AM CDT Liver disorder [id number] BLOOD Routine 11/12/2017 9:57 AM CDT Liver disorder SMOOTH MUSCLE ANTIBODY Routine 8 9:57 AM CDT Liver disorder PTT Routine 11/12/2017 9:57 AM CDT Liver disorder PT-INR Routine 11/12/2017 9:57 AM CDT Liver disorder CBC W AUTO DIFFERENTIAL Routine 11/13/19 18 9:57 AM CDT Liver disorder COMPREHENSIVE METABOLIC PANEL Routine 11/12/2017 9:57 AM CDT Liver disorder GGT Routine 11/12/2017 9:57 AM CDT Liver disorder BILIRUBIN DIRECT Routine 11/12/2017 9:57 AM CDT Liver disorder AMYLASE BLOOD Routine 11/12/2017 9:57 AM CDT Liver disorder TSH Routine 11/12/2017 9:57 AM CDT Liver disorder HEPATITIS SCREEN ACUTE Routine 8 9:57 AM CDT Liver disorder IGA BLOOD Routine 11/12/2017 9:57 AM CDT Liver disorder documented in this encounter Results * NEEDLE BIOPSY, LIVER (01/20/2018 9:30 AM CDT) Report Endoscopy POC _ Patient Name: Erick Triana ? Date of : 2000 ? Admit Type: Outpatient Age: 17 ? Gender: Male Attending MD: Jose Rafael Thompson MD ?Order #: [id number] _ Procedure: ? Liver biopsy Indications: ? [...] Procedure Code(s): ? --- Professional --- ? 32292, Biopsy of liver, needle; percutaneous ? 96832, Ultrasonic guidance for needle placement (eg, biopsy, aspiration, ? injection, localization device), imaging supervision and interpretation ? --- Technical --- ? 24235, Biopsy of liver, needle; percutaneous ? 08142, Ultrasonic guidance for needle placement (eg, biopsy, aspiration, ? injection, localization device), imaging supervision and interpretation Diagnosis Code(s): ? --- Professional --- ? R74.9, Abnormal serum enzyme level, unspecified ? --- Technical --- ? R74.9, Abnormal serum enzyme level, unspecified CPT copyright 2015 [employer]. All rights reserved. The codes documented in this report are preliminary and upon clerical and office support workers review may be revised to meet current compliance requirements. Dr. Jose Rafael Thompson Jose Rafael Thompson MD 01/20/2018 11:15:04 AM This report has been signed electronically. Number of Addenda: 0 Note Initiated On: 01/19/2018 9:30 AM Procedure Date: ? 01/20/2018 9:30:00 AM ? This report has been signed electronically. [facility] 01/20/2018 9:30 AM CDT Jose Rafael Thompson MD GI PROCEDURE ORDERAB LES [facility] [address] [place] [address] * PT-INR (11/12/2017 9:57 AM CDT) PT 10.5 9.5 - 11.6 sec 11/12/2017 11:24 AM CDT [facility] INR 1.0 0.9 - 1.1 11/12/2017 11:24 AM CDT [facility] Blood BLOOD SPECIMEN / Unknown Lab Venipuncture / Unknown 11/12/2017 9:57 AM CDT 11/12/2017 10:52 AM CDT Narrative [facility] - 11/12/2017 11:24 AM CDT Conventional Warfarin Anticoagulant Therapy: INR Reference Range: ??2.0-3.0 Intensive Warfarin Anticoagulant Therapy: INR Reference Range: ? 2.5-3.5 Jose Rafael Thompson MD LAB - COAGULATION OR DERABLES Performing Organization Address [facility] Co de Phone Number [facility] [place] [address] * PTT (11/12/2017 9:57 AM CDT) PTT 25.3 21.0 - 32.0 sec 11/12/2017 11:24 AM CDT [facility] Blood BLOOD SPECIMEN / Unknown Lab Venipuncture / Unknown 11/12/2017 9:57 AM CDT 11/12/2017 10:[address] [facility] - 11/12/2017 11:24 AM CDT Heparin Therapeutic Range for PTT: 47.7 - 68.6 seconds. Jose Rafael Thompson MD LAB - COAGULATION OR DERABLES Performing Organization Address [facility] de Phone Number [facility] [address] [place] [phone] * TISSUE TRANSGLUTAMINASE AB IGA (11/12/2017 9:57 AM CDT) TTG Antibody IgA <2 0 - 3 U/mL 11/13/2017 3:11 PM CDT [facility] ([facility]) Comment: ?Negative ?0 - ??3 ?Weak Positive ?? 4 - 10 ?Positive ? >10 Tissue Transglutaminase (tTG) has been identified as the endomysial antigen. ??Studies have demonstr- ated that endomysial IgA antibodies have over 99% specificity for gluten sensitive enteropathy. Blood BLOOD SPECIMEN / Unknown Lab Venipuncture / Unknown 11/12/2017 9:57 AM CDT 11/12/2017 10:52 AM CDT Narrative [facility] ([facility]) - 11/13/2017 3:11 PM CDT Performed at: ??01 - [facility] [address] ??[id number] Honing Job Setter: Carlos Aleman PhD, Phone: ??[phone] Jose Rafael Thompson MD LAB - SEROLOGY ORDER ASTRID Performing Organization Address [facility] Co de Phone Number [facility] ([facility]) [address] [place] [address] * TSH (11/12/2017 9:57 AM CDT) TSH 1.06 0.35 - 4.95 uIU/mL 11/12/2017 11:56 AM CDT [facility] Blood BLOOD SPECIMEN / Unknown Lab Venipuncture / Unknown 11/12/2017 9:57 AM CDT 11/12/2017 10:52 AM CDT Jose Rafael Thompson MD LAB - CHEMISTRY HILDA MARIO [facility] [address] [place] [address] * IGA BLOOD (11/12/2017 9:57 AM CDT) Pathologist [facility] IgA 92 63 - 484 mg/dL 11/12/2017 11:35 AM CDT [facility] Blood BLOOD SPECIMEN / Unknown Lab Venipuncture / Unknown 11/12/2017 9:57 AM CDT 11/12/2017 10:52 AM CDT Jose Rafael Thompson MD LAB - CHEMISTRY HILDA MARIO Performing Organization Address [facility]/ZIP Co de Phone Number [facility] [address] [place] [address] * HEPATITIS SCREEN ACUTE (11/12/2017 9:57 AM CDT) [facility] HAV Antibody IgM Non Reactive Non Reactive 11/12/2017 11:57 AM T [facility] HBsAg Non Reactive Non Reactive 11/12/2017 11:57 AM T [facility] HBc Antibody IgM Non Reactive Non Reactive 11/12/2017 11:57 AM T [facility] HCV Antibody Screen Non Reactive Non Reactive 11/12/2017 11:57 AM T [facility] HCV S/C Ratio 0.05 0.00 - 0.79 11/12/2017 11:57 AM T [facility] Comment: Uliaed-im-fogbzv ratio (S/CO) <0.80:?? Non Reactive Blood BLOOD SPECIMEN / Unknown Lab Venipuncture / Unknown 11/12/2017 9:57 AM CDT 11/12/2017 10:52 AM CDT Narrative [facility] - 11/12/2017 11:57 AM CDT Non Reactive - Antibodies to Hepatitis C virus (HCV) were not detected, result does not exclude early acute HCV infection. Jose Rafael Thompson MD LAB - CHEMISTRY HILDA MARIO Performing Organization Address City/[facility]/ZIP Co de Phone Number [facility] [address] [place] [address] * GGT (11/12/2017 9:57 AM CDT) Pathologist [facility] GGT 33 8 - 69 U/L 11/12/2017 11:35 AM T [facility] Blood BLOOD SPECIMEN / Unknown Lab Venipuncture / Unknown 11/12/2017 9:57 AM CDT 11/12/2017 10:52 AM CDT Jose Rafael Thompson MD LAB - CHEMISTRY HILDA MARIO Performing Organization Address [facility] Co de Phone Number [facility] [address] [place] [address] * (ABNORMAL) C-REACTIVE PROTEIN (11/12/2017 9:57 AM CDT) Pathologist [facility] C-Reactive Protein 1.00(H) <=0.50 mg/dL 11/12/2017 11:35 AM CDT [facility] Blood BLOOD SPECIMEN / Unknown Lab Venipuncture / Unknown 11/12/2017 9:57 AM CDT 11/12/2017 10:52 AM CDT Jose Rafael Thompson MD LAB - CHEMISTRY HILDA MARIO Performing Organization Address [facility] Co de Phone Number [facility] [address] [place] [address] * (ABNORMAL) COMPREHENSIVE METABOLIC PANEL (11/12/2017 9:57 AM CDT) [facility] Glucose 85 70 - 105 mg/dL 11/12/2017 11:35 AM T [facility] Sodium 140 136 - 145 mmol/L 11/12/2017 11:35 AM T [facility] Potassium 4.1 3.5 - 5.1 mmol/L 11/12/2017 11:35 AM T [facility] Chloride 104 98 - 107 mmol/L 11/12/2017 11:35 AM T [facility] CO2 27 20 - 28 mmol/L 11/12/2017 11:35 AM T [facility] Calcium 9.85 9.08 - 10.48 mg/dL 11/12/2017 11:35 AM [facility] Anion Gap 9 5 - 20 mmol/L 11/12/2017 11:35 AM [facility] BUN 17.4 5.3 - 18.7 mg/dL 11/12/2017 11:35 AM T [facility] Creatinine 0.68 0.61 - 1.07 mg/dL 11/12/2017 11:35 AM T [facility] Alkaline Phosphatase 76(L) 100 - 390 U/L 11/12/2017 11:35 AM T [facility] ALT 176(H) 6 - 46 U/L 11/12/2017 11:35 AM T [facility] AST 71(H) 3 - 35 U/L 11/12/2017 11:35 AM T [facility] Protein Total 7.7 6.3 - 8.2 gm/dL 11/12/2017 11:35 AM T [facility] Albumin 4.7 3.3 - 4.9 gm/dL 11/12/2017 11:35 AM T [facility] Bilirubin Total 0.6 0.3 - 1.2 mg/dL 11/12/2017 11:35 AM [facility] eGFR by MDRD >60 mL/min/1.7 3m2 11/12/2017 11:35 AM [facility] Comment: eGFR calculations are not performed for children under 18 years old. eGFR by MDRD >60 mL/min/1.7 3m2 11/12/2017 11:35 AM [facility] Comment: eGFR calculations are not performed for children under 18 years old. Blood BLOOD SPECIMEN / Unknown Lab Venipuncture / Unknown 11/12/2017 9:57 AM CDT 11/12/2017 10:52 AM CDT Jose Rafael Thompson MD LAB - CHEMISTRY HILDA MARIO Performing Organization Address [facility] Phone Number [facility] [place] [address] * CERULOPLASMIN (11/12/2017 9:57 AM CDT) Ceruloplasmin 25 17 - 54 mg/dL 11/12/2017 11:56 AM T [facility] Blood BLOOD SPECIMEN / Unknown Lab Venipuncture / Unknown 11/12/2017 9:57 AM CDT 11/12/2017 10:52 AM CDT Jose Rafael Thompson MD LAB - CHEMISTRY HILDA MARIO Performing Organization Address City/State/[facility] de Phone Number [facility] [place] [address] * BILIRUBIN DIRECT (11/12/2017 9:57 AM CDT) [facility] Bilirubin Direct 0.39 0.11 - 0.64 mg/dL 11/12/2017 11:35 AM CDT [facility] Blood BLOOD SPECIMEN / Unknown Lab Venipuncture / Unknown 11/12/2017 9:57 AM CDT 11/12/2017 10:52 AM CDT Jose Rafael Thompson MD LAB - CHEMISTRY HILDA MARIO Performing Organization Address [facility] de Phone Number [facility] [address] [place] [address] * SMOOTH MUSCLE ANTIBODY (11/12/2017 9:57 AM CDT) [facility] Actin (Smooth Muscle) Antibody 5 0 - 19 Units 11/13/2017 5:07 PM CDT [facility] ([facility]) Comment: ? Negative ? 0 - 19 [...] CDT 11/12/2017 10:52 AM CDT Narrative [facility] ([facility]) - 11/13/2017 5:07 PM CDT Performed at: ??01 - [facility] [address], [place], [place] ??[id number] Honing Job Setter: Carlos Aleman PhD, Phone: ??[phone] Jose Rafael Thompson MD LAB - SEROLOGY ORDER ASTRID Performing Organization Address City/[facility]/ZIP Co de Phone Number [facility] [address] [place] [address] * MICROSOMAL ANTIBODY LIVER/KIDNEY (11/12/2017 9:57 AM CDT) Liver-Kidney Microsomal Antibody <1.0 0.0 - 20.0 Units 11/15/2017 4:20 PM CDT [facility] ([facility]) Comment: ?Negative ?0.0 - 20.0 ?Equivocal ??20.1 - 24.9 ?Positive ? >24.9 LKM type 1 antibodies are detected in patients with autoimmune hepatitis type 2 and in up to 8% of patients with chronic HCV infection. Blood BLOOD SPECIMEN / Unknown Lab Venipuncture / Unknown 11/12/2017 9:57 AM CDT 11/12/2017 10:52 AM CDT Narrative [facility] ([facility]) - 11/15/2017 4:20 PM CDT Performed at: ??01 - [address] ??[id number] Honing Job Setter: Carlos Aleman PhD, Phone: ??[phone] Jose Rafael Thompson MD LAB - CHEMISTRY ORDE RABLES Performing Organization Address City/[facility]/ZIP Co de Phone Number [facility] ([facility]) [address] [place] [address] * LORI BLOOD SCREEN W/REFLEX TITER (11/12/2017 9:57 AM CDT) LORI Negative Negative 11/13/2017 7:25 AM CDT [facility] Blood BLOOD SPECIMEN / Unknown Lab Venipuncture / Unknown 11/12/2017 9:57 AM CDT 11/12/2017 10:52 AM CDT Jose Rafael Thompson MD LAB - CHEMISTRY HILDA MARIO [facility] [address] [place] [address] * AMYLASE BLOOD (11/12/2017 9:57 AM CDT) Amylase 23 5 - 65 U/L 11/12/2017 11:35 AM CDT [facility] Blood BLOOD SPECIMEN / Unknown Lab Venipuncture / Unknown 11/12/2017 9:57 AM CDT 11/12/2017 10:52 AM CDT Jose Rafael Thompson MD LAB - CHEMISTRY HILDA MARIO Performing Organization Address City/[facility]/ZIP Co de Phone Number [facility] [address] [place] [address] * [id number] BLOOD (11/12/2017 9:57 AM CDT) Dpkgj-9-Kmyvugn psin 147 90 - 200 mg/dL 11/13/2017 8:27 AM CDT [facility] ([facility]) Blood BLOOD SPECIMEN / Unknown Lab Venipuncture / Unknown 11/12/2017 9:57 AM CDT 11/12/2017 10:52 AM CDT Narrative [facility] ([facility]) - 11/13/2017 8:27 AM CDT Performed at: ??01 - [facility] [place] [address] [place] [address] ??[id number] Honing Job Setter: Carlos Aleman PhD, Phone: ??[phone] Jose Rafael Thompson MD LAB - CHEMISTRY HILDA MARIO Performing Organization Address City/[facility]/ZIP Co de Phone Number [facility] ([facility]) [address] [place] [address] * (ABNORMAL) CBC W AUTO DIFFERENTIAL (11/12/2017 9:57 AM CDT) [facility] WBC 6.5 4.5 - 11.0 x10E9/L 11/12/2017 11:11 AM [facility] WBC Corrected x10E9/L 11/12/2017 11:11 AM [facility] RBC 5.74(H) 4.50 - 5.30 x10E12/L 11/12/2017 11:11 AM [facility] Hemoglobin 15.3 13.0 - 16.0 gm/dL 11/12/2017 11:11 AM [facility] Hematocrit 45.6 37.0 - 49.0 % 11/12/2017 11:11 AM [facility] MCV 79.4 78.0 - 98.0 fl 11/12/2017 11:11 AM [facility] MCH 26.7 25.0 - 35.0 pg 11/12/2017 11:11 AM [facility] MCHC 33.6 31.0 - 37.0 gm/dL 11/12/2017 11:11 AM [facility] Platelet Count 293 100 - 400 x10E9/L 11/12/2017 11:11 AM [facility] RDW-CV 13.2 11.5 - 14.0 % 11/12/2017 11:11 AM [facility] MPV 10.6(H) 6.0 - 9.5 fl 11/12/2017 11:11 AM [facility] Neutrophils % 50.8 31.0 - 78.0 % 11/12/2017 11:11 AM [facility] Lymphocytes % 36.4 13.0 - 54.0 % 11/12/2017 11:11 AM [facility] Monocytes % 8.2 4.0 - 13.0 % 11/12/2017 11:11 AM [facility] Eosinophils % 3.2 0.0 - 8.0 % 11/12/2017 11:11 AM [facility] Basophils % 0.6 % 11/12/2017 11:11 AM [facility] Immature Granulocytes 0.8 % 11/12/2017 11:11 AM [facility] Neutrophil Absolute 3.30 x10E9/L 11/12/2017 11:11 AM [facility] Lymphocytes Absolute 2.36 x10E9/L 11/12/2017 11:11 AM CDT [facility] Monocytes Absolute 0.53 x10E9/L 11/12/2017 11:11 AM CDT [facility] Eosinophils Absolute 0.21 x10E9/L 11/12/2017 11:11 AM CDT [facility] Basophils Absolute 0.04 x10E9/L 11/12/2017 11:11 AM CDT [facility] Immature Granulocytes Absolute 0.05 x10E9/L 11/12/2017 11:11 AM CDT [facility] nRBC Auto 0 /100 WBC 11/12/2017 11:11 AM CDT [facility] Blood BLOOD SPECIMEN / Unknown Lab Venipuncture / Unknown 11/12/2017 9:57 AM CDT 11/12/2017 10:52 AM CDT Jose Rafael Thompson MD LAB - HEMATOLOGY ORD [facility] [address] [place] [id number] documented in this encounter Visit Diagnoses Diagnosis Liver disorder- Primary Unspecified disorder of liver Transaminitis Nonspecific elevation of levels of transaminase or lactic acid dehydrogenase (LDH) documented in this encounter Care Teams Registered Sales Assistant Relationship Specialty Start Date End Date LabargeGodfrey MD [address] [place] [phone] PCP - General Pediatrics 05/01/14 Dipika Reddy MD [address] [place] [phone] Resident Student Resident 11/27/15 documented as of this encounter
--- OUTSIDE RECORDS SUMMARY | 2024-08-06 19:03 | XMS_ITS | Encounter Summary ---
Author Organization [facility] Address [address] [place] [address] Care Team Providers Care Aerial Applicator Pilot Name Role Phone Bernardino Brown MD Primary Care Provider [phone] Sera Leonard DO Unavailable [phone] Reason for Visit * Reason Comments Pain Head Sore throat since night. felt warm but unsure of any fevers. pt also complaining of abdominal pain. doesnt hurt right now per patient but was hurting eariler. denies vomiting, diarrhea or cough. + for runny nose. decreased appetite. with adequate UOP. Sore Throat Encounter Details Date Type Department Care Team (Late st Contact Info) Description 04/15/2014 1:11 PM CDT - 04/15/2014 3:13 PM CDT Emergency ER at [address] [address] URI (upper respiratory infection) Discharge Disposition: Home or Self Care Social [...] Sign Reading Time Taken Comments Blood Pressure 124/69 04/15/2014 1:16 PM CDT Pulse 96 04/15/2014 1:16 PM CDT Temperature 36.9 ??C (98.4 ??F) 04/15/2014 1:16 PM CD T Respiratory Rate 20 04/15/2014 1:16 PM CDT Oxygen Saturation - - Inhaled Oxygen Concentration - - Weight 96.9 kg (213 lb 10 oz) 04/15/2014 1:16 PM CDT Height - - Body Mass Index - - documented in this encounter Discharge Instructions * Discharge Instructions* Adonis Gill, MATT-PACKAGING SPECIALIST - 04/15/2014 3:00 PM CDT Images from the original note were not included. Common Cold, Child Colds are caused by a virus which affects the air passages to the lung. This is also called an upper respiratory tract infection. Colds are easy to spread (contagious), especially during the first 3 or 4 days. Medications that kill germs (antibiotics) cannot cure a cold. Cold germs are spread by coughs, sneezes, and vwre-pz-xibg contact. A cold will usually clear up in a few days, but some children may be sick for a week or two. HOME CARE INSTRUCTIONS ?? Use saline nose drops frequently to keep the nose open from secretions. It works better than suctioning with the bulb syringe, which can cause minor bruising inside the child???s nose. Occasionally you may have to use bulb suctioning, but it is strongly believed than saline rinsing of the nostrils is more effective in keeping the nose open. This is especially important for the infant who needsan open nose to be able to suck with a closed mouth. ?? Only give your child qmii-kau-bgtvalr or prescription medicines for pain, discomfort, or fever as directed by your child's caregiver. ?? Use a cool-mist humidifier (vaporizer) to increase air moisture. This will make it easier for your child to breath. Do not use hot steam. ?? Have your child rest as much as possible with plenty of sleep. ?? Wash hands often. ?? Encourage your child to drink clear liquids such as water, fruit juices, clear soups, and carbonated beverages. SEEK MEDICAL CARE IF: ?? An oral temperature above 102?? F (38.9?? C) develops, or as your caregiver suggests, which lasts two days or more. ?? Your child has a sore throat that gets worse or you see white or yellow spots in their throat. ?? Your child's cough is getting worse or lasts more than 10 days. ?? Your child develops a rash. ?? Your child develops large and tender lumps in their neck. ?? An earache, headache or stiff neck develops. ?? Thick, greenish or yellowish discharge develops from the nose. ?? Thick yellow, green, burroughs or bloody mucus (secretions) is coughed up. SEEK IMMEDIATE MEDICAL CARE IF: ?? Your child has trouble breathing, chest pain or is very sleepy. ?? Your child's skin or nails look burroughs or blue. ?? You think anything is getting worse. MAKE SURE YOU: ?? Understand these instructions. ?? Will watch your condition. ?? Will get help right away if you are not doing well or get worse. Document Released: 04/28/2006 Document Re-Released: 07/01/2009 ExitCare?? Patient Information ??2010 [employer]. Cool Mist Vaporizers Vaporizers may help relieve the symptoms of a cough and cold. By adding water to the air, mucus maybecome thinner and less sticky. This makes it easier to breathe and cough up secretions. Vaporizershave not been proven to show they help with colds. You should not use a vaporizer if you are allergic to mold. Cool mist vaporizers do not cause serious crystal like hot mist vaporizers ( steamers ). HOME CARE INSTRUCTIONS ?? Follow the package instructions for your vaporizer. ?? Use a vaporizer that holds a large volume of water (1?? to 2 gallons [5.7 to 7.5 liters]). ?? Do not use anything other than distilled water in the vaporizer. ?? Do not run the vaporizer all of the time. This can cause mold or bacteria to grow in the vaporizer. ?? Clean the vaporizer after each time you use it. ?? Clean and dry the vaporizer well before you store it. ?? Stop using a vaporizer if you develop worsening respiratory symptoms. Document Released: 04/15/2005 Document Revised: 10/10/2012 Document Reviewed: 03/13/2010 ExitCare?? Patient Information ??2014 [employer]. Saline Nose Drops To help clear a stuffy nose, put salt water (saline) nose drops in your infant's nose. This helps to loosen the secretions in the nose. Use a bulb syringe to clean the nose out: ?? Before feeding. ?? Before putting your down for naps. ?? No more than once every 3 hours to avoid irritating your 's nostrils. HOME CARE ?? Buy nose drops at your local drug store. You can also make nose drops yourself. Mix 1 cup of water with ?? teaspoon of salt. Stir. Store this mixture at room temperature. Make a new batch daily. ?? To use the drops: ?? Put 1 or 2 drops in each side of infant's nose with a clean medicine dropper. Do not use this dropper for any other medicine. ?? Squeeze the air out of the suction bulb before inserting it into your infant's nose. ?? While still squeezing the bulb flat, place the tip of the bulb into a nostril. Let air come backinto the bulb. The suction will pull snot out of the nose and into the bulb. ?? Repeat on other nostril. ?? Squeeze the bulb several times into a tissue and wash the bulb tip in soapy water. Store the bulb with the tip side down on paper towel. ?? Use the bulb syringe with only the saline drops to avoid irritating your infant's nostrils. GET HELP RIGHT AWAY IF: ?? The snot changes to green or yellow. ?? The snot gets thicker. ?? Your is 3 months or younger with a rectal temperature of 100.4?? F (38?? C) or higher. ?? Your is older than 3 months with a rectal temperature of 102?? F (38.9?? C) or higher. ?? The stuffy nose lasts 10 days or longer. ?? There is trouble breathing or feeding. MAKE SURE YOU: ?? Understand these instructions. ?? Will watch your infant's condition. ?? Will get help right away if your is not doing well or gets worse. Document Released: 05/16/2010 Document Revised: 10/10/2012 Document Reviewed: 05/16/2010 ExitCare?? Patient Information ??2013 [employer]. documented in this encounter Medications at Time of Discharge Medication Sig Dispensed Refills Start Date End Date acetaminophen (TYLENOL) 500 MG tablet Take 1 Tab by mouth every 4 hours as needed for Fever or Pain. Maximum allowable Acetaminophen amount = 4 Grams (4000 mg) / 24 hours. 20 Tab 0 12/18/2013 02/04/2015 documented as of this encounter ED Notes * Jaimie Matute RN - 04/15/2014 3:11 PM CDT Pt in NAD at time of discharge. Pt talking of phone at time of discharge. Pt dad verbalized discharge instructions. * Adonis Gill APRN-CNP - 04/15/2014 2:46 PM CDT EMERGENCY DEPARTMENT 04/15/2014 Dear Doctor, We had the pleasure of caring for your patient, Erick Triana in our emergency department on 04/15/2014. A note from the provider(s) who cared for your patient is attached. Should you wish to access any laboratory results, please call . Should you wish to access any radiology results, please call , option 3. In addition, you can access patient information 24 hours a day, from any computer, through [employer], the online version of our electronic medical record. If you would like to use this service, please call Cherise Mejias, Connectivity Coordinator, at . We appreciate the opportunity to care for your patients. If you would like additional information, please call the emergency department directly at . Sincerely, MARY KATE Velasco Division of Emergency Medicine [facility], [place] [facility] [place] DESIGN[facility] EMERGENCY DEPARTMENT Provider contact with the patient: 04/15/2014 14:46 Erick Triana [id number] [facility] EMERGENCY DEPARTMENT History Chief Complaint Patient presents with ??? Pain Head Sore throat since last night. felt warm but unsure of any fevers. pt also complaining of abdominal pain. doesnt hurt right now per patient but was hurting eariler. denies vomiting, diarrhea or cough.+ for runny nose. decreased appetite. with adequate UOP. ??? Sore Throat HPI Comments: Alert and well appearing 13 year old male presents to ED this afternoon with grandfather. Erick states that for the past two days he has had runny nose, cough and congestion. He has notfever. He has not taken any medications. PMH is noncontributory and immunizations are up to date per grandparent report. Past Medical History Diagnosis Date ??? Anatomic [...] Systems Review of Systems Constitutional: Negative. HENT: Positive for congestion and rhinorrhea. Eyes: Negative. Respiratory: Positive for cough. Cardiovascular: Negative. Gastrointestinal: Negative. Skin: Negative. Allergic/Immunologic: Negative. Psychiatric/Behavioral: Negative. All other systems reviewed and are negative. BP 124/69 Pulse 96 Temp(Src) 98.4 ??F Resp 20 Wt 96.9 kg (213 lb 10 oz) Physical Exam Physical Exam Constitutional: He is oriented to person, place, and time. He appears well- developed and well-nourished. No distress. HENT: Head: Normocephalic. Right Ear: External ear normal. Left Ear: External ear normal. Mouth/Throat: Oropharynx is clear and moist. Pharynx slightly pink, uvula slightly swollen Nares pink/boggy slightly swollen, clear/white drainage Eyes: EOM are normal. Pupils are equal, round, and reactive to light. Right eye exhibits no discharge. Left eye exhibits no discharge. Neck: Normal range of motion. Neck supple. Cardiovascular: Normal rate, regular rhythm and normal heart sounds. Pulmonary/Chest: Effort normal and breath sounds normal. No respiratory distress. He has no wheezes. He has no rales. He exhibits no tenderness. Abdominal: Soft. He exhibits no distension and no mass. There is no tenderness. Musculoskeletal: Normal range of motion. Neurological: He is alert and oriented to person, place, and time. Skin: Skin is warm. He is not diaphoretic. Psychiatric: He has a normal mood and affect. His behavior is normal. Judgment and thought content normal. Vitals reviewed. Procedures Procedures ECG Interpretation ECG Interpretation Lab/SPO2 Interpretation Progress Notes ED Course Orders Placed This Encounter ??? STREP A SCREEN DIRECT W RFLX STREP A CULTURE Standing Status: Standing Number of Occurrences: 1 Standing Expiration Date: ??? CULTURE STREP GROUP A Standing Status: Standing Number of Occurrences: 1 Standing Expiration Date: Results for orders placed during the hospital encounter of 04/15/14 STREP A SCREEN DIRECT W RFLX STREP A CULTURE Result Value Range Strep A Rapid Negative Negative PLAN Supportive care instructions Encourage fluids, elevate the head of the bed, and use saline nasal mist often, cool mist humidifier Medical Decision Making I have reviewed the: Nursing Notes and Vitals. I have discussed the case with Family/Caregiver. Clinical Impression Final diagnoses: URI (upper respiratory infection) documented in this encounter Plan of Treatment Not on file documented as of this encounter Procedures Procedure Name Priority Date/Time Associated Diagnosis Comments STREP A SCREEN DIRECT W RFLX STREP A CULTURE STAT 04/15/2014 1:19 PM CDT CULTURE STREP GROUP A STAT 04/15/2014 1:19 PM CDT documented in this encounter Results * CULTURE STREP GROUP A (04/15/2014 1:19 PM CDT) Culture Negative for Beta Hemolytic Streptococcus Group A AUNDREA 04/17/2014 6:24 AM CDT [facility] Microbiology ENTIRE THROAT (SURFACE REGION OF NECK) / Unknown 04/15/2014 1:19 PM CDT 04/15/2014 1:31 PM CDT Sathya Bingham MD LAB - MICROBIOLOGY [facility] [address] [place] [address] * STREP A SCREEN DIRECT W RFLX STREP A CULTURE (04/15/2014 1:19 PM CDT) Strep A Rapid Negative Negative 04/15/2014 1:42 PM CDT [facility] Microbiology ENTIRE THROAT (SURFACE REGION OF NECK) / Unknown 04/15/2014 1:19 PM CDT 04/15/2014 1:31 PM CDT Narrative [facility] - 04/15/2014 1:42 PM CDT Test has reflexed to a Strep A culture. Sathya Bingham MD LAB - MICROBIOLOGY [facility] [address] [place] [address] documented in this encounter Visit Diagnoses Diagnosis URI (upper respiratory infection) Acute upper respiratory infections of unspecified site documented in this encounter Care Teams Aerial Applicator Pilot Relationship Specialty Start Date End Date Bernardino Brown MD [address] [place] [phone] PCP - General Pediatrics 05/16/13 04/30/14 [place] [address] [place] [phone] Resident Pediatrics 09/27/13 11/04/14 documented as of this encounter
--- OUTSIDE RECORDS SUMMARY | 2024-08-06 19:03 | XMS_ITS | Encounter Summary ---
Author Organization [facility] Address [address] [place] [address] Care Team Providers Care Public Relations Coordinator Name Role Phone Godfrey Curry MD Primary Care Provider [phone] Dipika Reddy MD Unavailable [phone] Reason for Visit * Reason Comments Acne Acne began three yea rs ago. Current Rx: Clindamycin 1% gel & Tretinoin cream 0.05%; previously tried OTC medications (clearasil) Encounter Details Date Type Department Care Team (Latest Contact Info) Description 01/20/2016 1:51 PM CDT - 01/20/2016 11:59 PM CDT Hospital Encounter [facility] Pediatrics - Dermatology [address] [place] [address] Rani Solitario MD [address] [place] [address] Discharge Disposition: Home or Self Care Social [...] - Inhaled Oxygen Concentration - - Weight 116.6 kg (257 lb 0.9 oz) 01/20/2016 2:23 PM CDT Height 176.1 cm (5' 9.33 ) 01/20/2016 2:23 PM CD T Body Mass Index 37.6 01/20/2016 2:23 PM CDT Body Mass Index Percentile 99.52% 01/20/2016 2:2 3 PM CDT Growth Chart: [facility] (Boys, 2-2 0 Years) documented in this encounter Discharge Instructions * Patient Instructions* Elena Eugene PA-C - 01/20/2016 3:23 PM CDT Erick's acne improved using ~ 8 g of clindamycin gel and tretinoin 0.05% cream per month. He continues to get bleach heads and pustules. He discussed several ways to optimize his medication: 1. Wash with benzoyl peroxide. 2. Increase the amount of topical medication - you want to see slight dryness. 3. Add doxycycline. Take 50 mg twice a day. You do not have scarring acne at this point. If it gets worse rather than better, we could pursue Accutane, but we never want the treatment to be worse than the disease. At this point, his acne is controlled and we can make the changes above for more improvement. Doxycycline There are two types of doxycycline (hyclate and monohydrate). Doxycycline in either form is not covered by all insurances. In addition, the drug is sometimes not available and your insurance may limit dispensing to a 14 day supply. You may need to return to the pharmacy in 2 weeks to pickling grader the rest of your medicine. Be sure to confirm amount dispensed and day supply with your pharmacy when you pickling grader your medicine. Be aware that some foods will interfere [...] the following: zinc oxide, titanium dioxide, avobenzone (Cardiiool 178) or mexoryl ?? Some brands with these [...] zinc oxide ointment are the safest alternatives. The bumps on Erick's arms and legs are characteristic of keratosis pilaris. KERATOSIS PILARIS The name keratosis pilaris (KP) is derived from keratosis, meaning ???too much keratin?? , and pilaris, from the Latin pilus, meaning hair. The term is lyrical, but does not truly describe the condition. KP occurs around hair follicles, as firm plugs of excess skin cells. The cause of the condition is undoubtedly an inherited genetic defect in a molecule made by these skin cells. People with KP often seek a aircraft life support fitter???s help. But while this condition causes as much distress as acne vulgaris, dermatologists know much less about the cause of the condition, or prescribing effective therapy. People with KP often have dry, sensitive skin, but may have a lower risk of acne. KP gradually improves by adulthood, but some people have persistent KP that waxes and wanes. Famous people with KP include Reginald Duckworth, [facility]'s Prince Westfall and his mother Princess Gillis and Terrell Thomas. KP features tiny, firm bumps on a background of pink skin. The hair-bearing areas at the cheeks, upper outer arms and front of the thighs are most often involved. Sometimes the bumps are the most obvious problem. Other people are more bothered by the prominent skin redness. There are a few different types of KP. Uncommon forms have more widespread involvement, and may have pus-filled bumps or leave scar-like depressions. These uncommon types of have been given a variety of descriptive, bewildering names, such as ulerythema ophryogenes, KP atrophicans faceii and erythromelanosis follicularia faciei et colli, and often appear on people with other genetic problems. Until the cause of KP is identified, treatment is aimed at relieving the 2 bothersome features-bumps & redness. Unfortunately, medications that smooth the bumps will often make the redness worse,and treatments that minimize the redness have no effect on the bumps. Lotions or creams that can help smooth the bumps include those that contain: glycolic acid (e.g. Glytone cream), lactic acid (Lac-Hydrin, Am-Lactin), salicylic acid (Salex, CeraVe SA) or urea (Carmol 10). There are no well-defined treatments to erase the redness, but products that may help include: nicotinamide cream, vitamin Kcream or B vitamins (folic acid or pyridoxine). Check the internet for sources of all these ravl-gag-oivqimh products. Other options include pulsed-dye laser and low-strength doxycycline tablets. No single lotion or cream has been shown to be the most effective. All work best if used twice a day, especially when applied immediately after bathing. If the medication is discontinued, the KP usually comes back. To ease itch, try a lotion containing pramoxine (e.g. Sarna Sensitive, Aveeno Anti-itch lotion); check the internet for availability. Additional information can be found on the internet, e.g. www.dermnetnz.org/acne/keratosis-pilaris.html. However, many of these are commercial sites are focused on promoting products. Acanthosis Nigricans Acanthosis nigricans (pz-fs-WMFS-sis BAB-dlrj-zawft) is a skin condition that features dark, [...] children and teenagers with acanthosis nigricans. ([facility] can help [phone]). If you are concerned about the appearance of your skin, there are treatments that may help fade thediscoloration modified vitamin A prescription creams (tretinoin such as Retin-A, or similar products) non-prescription creams containing urea, salicylic acid, lactic acid or glycolic acid Fish oil supplements Very severe acanthosis nigricans can have a bad odor. Using antibacterial soaps or taking bleach baths can help. documented in this encounter Medications at Time of Discharge Medication Sig Dispensed Refills Start Date End Date clindamycin (CLINDAGEL) 1 % gel Apply to affected area every morning 1 Bottle 2 08/23/2015 11/06/2016 doxycycline (VIBRAMYCIN) 50 MG capsule Take 1 Cap by mouth every 12 hours 60 Cap 2 01/20/2016 11/06/2016 tretinoin (RETIN-A) 0.05 % cream Apply to affected area at bedtime 45 g 1 01/20/2016 11/06/2016 documented as of this encounter Progress Notes * Elena Eugene PA-C - 01/20/2016 3:02 PM CDT Pediatric Dermatology Clinic Visit Progress Note I had the pleasure of seeing your patient, Erick Triana in the Pediatric Dermatology Clinic at [facility]. Chief Complaint Patient presents with ??? Acne Acne began three years ago. Current Rx: Clindamycin 1% gel & Tretinoin cream 0.05%; previously tried OTC medications (clearasil) History of Present Illness This is a follow up evalution for Erick Triana. He came to today's visit with his parents, alsoaccompanied by 1 others (sister). Erick is a 15 y.o. male with a h/o acne. He presents for his 2nd visit, a 5 month follow-up. Patient Skin Care Regimen Showers: Daily Uses Dove bar soap (pt states contain cocoa butter); pt unsure of shampoo: Daily Uses other product: Sunscreen, hair styling products and deodorant At his last visit, 08/23/15, was his first visit - he was not using Rx medication. Grandmother inquired about Accutane via phone as his father had scarring acne. He whe was instructed to apply tretinoin hs, clindamycin q am and wash with BP. In the interval, he had a WCC with lipid panel, AST, and HbA1c ordered due to obesity. They have not been drawn. Today, he reports improvement to acne, but continues to get pustules and open comedones that cause him distress. Mom is also concerned about the lesions. He has used ~8 g clindamycin and tretinoin per month with no dryness or irritation. He is not washing with BP. He again asks about isotretinoin, though parents are supportive of other options. Mom also asks about the dark pigment on his neck, elbows, and knees. Present for years - use to be darker. PCP is monitoring HbA1c and labs are WNL per mom. KP persists. Not treating, but concerned about the appearance. ?? Lives at home with mom, step-dad, 3 year old sister and 2 dogs. Medications Current Outpatient Prescriptions Medication ??? doxycycline (VIBRAMYCIN) 50 MG capsule ??? tretinoin (RETIN-A) 0.05 % cream ??? clindamycin (CLINDAGEL) 1 % gel No current facility-administered medications for this encounter. Allergies No Known Allergies Review of Systems Constitutional: No fever. ENT: Rhinorrhea, congestion and sore throat. No ear pain. Cardiovascular: No chest pain. Respiratory: No cough present and no wheezing present. Gastrointestinal: No constipation, no diarrhea and no vomiting. Allergy / Immunology: Seasonal allergies present. Musculoskeletal: No joint pain and no joint swelling. Neurologic: No headaches. Dermatologic: Acne. No rash, no dry skin and no eczema. Physical Exam Wt 116.6 kg (257 lb 0.9 oz) BMI 37.60 kg/m2 71%ile (Z=0.54) based on CDC 2-20 Years cqaqwrp-gzr-kky data using vitals from 01/20/2016. Wt Readings from Last 3 Encounters: 01/20/16 116.6 kg (257 lb 0.9 oz) (100 %*, Z = 3.06) 12/04/15 109.997 kg (242 lb 8 oz) (100 %*, Z = 2.88) 08/23/15 107.9 kg (237 lb 14 oz) (100 %*, Z = 2.88) * Growth percentiles are based on CDC 2-20 Years data. Ht Readings from Last 3 Encounters: 01/20/16 1.761 m (5' 9.33 ) (71 %*, Z = 0.54) 12/04/15 1.735 m (5' 8.31 ) (60 %*, Z = 0.25) 08/23/15 1.744 m (5' 8.66 ) (70 %*, Z = 0.52) * Growth percentiles are based on [facility] 2-20 Years data. Body mass index is 37.6 kg/(m^2). General: Healthy and alert. Easy to examine Skin Appearance: Type II skin; fairly well hydrated The following pertinent positives and negatives were noted: Involved sites: No scalp or postauricular scale; inflammatory papules, pusules>open > closed comedones on forehead, chin>cheeks, ears; spares chest and back; one pitted scar on cheeks; keratotic papules on arms>cheeks, upper anterior legs; velvety plaques on posterior neck, axilla, elbows, knees, knuckles Assessment & Plan Problem Acne Onset age 12-13; moderate, inflammatory and comedonal; no Rx; family more motivated to treat than pt; KP; Dad and Grandfather with scarring acne 01/20/16 improvement using ~ 8 g tretinoin and clindamycin per month; significant concern; add BP wash, increase med use, add doxy 50 mg BID Obesity With acanthosis nigricans Keratosis Pilaris Upper>lower arms; face; complicated by folliculitis Skin Cx: Orders Placed This Encounter ??? CULTURE STAPH AUREUS+STREP A Standing Status: Standing Number of Occurrences: 1 Standing Expiration Date: ??? doxycycline (VIBRAMYCIN) 50 MG capsule Sig: Take 1 Cap by mouth every 12 hours Dispense: 60 Cap Refill: 2 ??? tretinoin (RETIN-A) 0.05 % cream Sig: Apply to affected area at bedtime Dispense: 45 g Refill: 1 Patient Instructions Erick's acne improved using ~ 8 g of clindamycin gel and tretinoin 0.05% cream per month. He continues to get bleach heads and pustules. He discussed several ways to optimize his medication: 1. Wash with benzoyl peroxide. 2. Increase the amount of topical medication - you want to see slight dryness. 3. Add doxycycline. Take 50 mg twice a day. You do not have scarring acne at this point. If it gets worse rather than better, we could pursue Accutane, but we never want the treatment to be worse than the disease. At this point, his acne is controlled and we can make the changes above for more improvement. Doxycycline There are two types of doxycycline (hyclate and monohydrate). Doxycycline in either form is not covered by all insurances. In addition, the drug is sometimes not available and your insurance may limit dispensing to a 14 day supply. You may need to return to the pharmacy in 2 weeks to pickling grader the rest of your medicine. Be sure to confirm amount dispensed and day supply with your pharmacy when you pickling grader your medicine. Be aware that some foods will interfere [...] zinc oxide ointment are the safest alternatives. The bumps on Erick's arms and legs are characteristic of keratosis pilaris. KERATOSIS PILARIS The name keratosis pilaris (KP) is derived from keratosis, meaning ???too much keratin?? , and pilaris, from the Latin pilus, meaning hair. The term is lyrical, but does not truly describe the condition. KP occurs around hair follicles, as firm plugs of excess skin cells. The cause of the condition is undoubtedly an inherited genetic defect in a molecule made by these skin cells. People with KP often seek a aircraft life support fitter???s help. But while this condition causes as much distress as acne vulgaris, dermatologists know much less about the cause of the condition, or prescribing effective therapy. People with KP often have dry, sensitive skin, but may have a lower risk of acne. KP gradually improves by adulthood, but some people have persistent KP that waxes and wanes. Famous people with KP include Reginald Duckworth, [facility]'s Prince Westfall and his mother Princess Gillis and Terrell Thomas. KP features tiny, firm bumps on a background of pink skin. The hair-bearing areas at the cheeks, upper outer arms and front of the thighs are most often involved. Sometimes the bumps are the most obvious problem. Other people are more bothered by the prominent skin redness. There are a few different types of KP. Uncommon forms have more widespread involvement, and may have pus-filled bumps or leave scar-like depressions. These uncommon types of have been given a variety of descriptive, bewildering names, such as ulerythema ophryogenes, KP atrophicans faceii and erythromelanosis follicularia faciei et colli, and often appear on people with other genetic problems. Until the cause of KP is identified, treatment is aimed at relieving the 2 bothersome features-bumps & redness. Unfortunately, medications that smooth the bumps will often make the redness worse,and treatments that minimize the redness have no effect on the bumps. Lotions or creams that can help smooth the bumps include those that contain: glycolic acid (e.g. Glytone cream), lactic acid (Lac-Hydrin, Am-Lactin), salicylic acid (Salex, CeraVe SA) or urea (Carmol 10). There are no well-defined treatments to erase the redness, but products that may help include: nicotinamide cream, vitamin Kcream or B vitamins (folic acid or pyridoxine). Check the internet for sources of all these osav-vnx-qpagfby products. Other options include pulsed-dye laser and low-strength doxycycline tablets. No single lotion or cream has been shown to be the most effective. All work best if used twice a day, especially when applied immediately after bathing. If the medication is discontinued, the KP usually comes back. To ease itch, try a lotion containing pramoxine (e.g. Sarna Sensitive, Aveeno Anti-itch lotion); check the internet for availability. Additional information can be found on the internet, e.g. www.dermnetnz.org/acne/keratosis-pilaris.html. However, many of these are commercial sites are focused on promoting products. Acanthosis Nigricans Acanthosis nigricans (tb-ci-LISW-sis VFQ-ujea-xvjsb) is a skin condition that features dark, [...] children and teenagers with acanthosis nigricans. ([facility] can help [phone]). If you are concerned about the appearance of your skin, there are treatments that may help fade thediscoloration modified vitamin A prescription creams (tretinoin such as Retin-A, or similar products) non-prescription creams containing urea, salicylic acid, lactic acid or glycolic acid Fish oil supplements Very severe acanthosis nigricans can have a bad odor. Using antibacterial soaps or taking bleach baths can help. Follow-Up As above Elena Eugene PA-C documented in this encounter Plan of Treatment Not on file documented as of this encounter Procedures Procedure Name Priority Date/Time Associated Diagnosis Comments CULTURE STAPH AUREUS+STREP A Routine 01/20/2016 3:00 PM CDT Acne vulgaris documented in this encounter Results * CULTURE STAPH AUREUS+STREP A (01/20/2016 3:00 PM CDT) Culture Negative for Streptococcus Group A/Staphylococcus aureus AUNDREA 01/22/2016 5:49 AM CDT [facility] Microbiology TISSUE SPECIMEN FROM SKIN / Unknown 01/20/2016 3:00 PM CDT 01/20/2016 5:25 PM CDT Elena Eugene PA-C LAB - MICROBIOLOGY ORDERABLES [facility] [address] [place] [phone] documented in this encounter Visit Diagnoses Diagnosis Acne vulgaris- Primary Other acne documented in this encounter Care Teams Public Relations Coordinator Relationship Specialty Start Date End Date Labarge, Godfrey Zaapta MD [address] [place] [phone] PCP - General Pediatrics 05/01/14 Dipika Reddy MD [address] [place] [phone] Resident Student Resident 11/27/15 documented as of this encounter
--- OUTSIDE RECORDS SUMMARY | 2024-08-06 19:03 | XMS_ITS | Encounter Summary ---
Author Organization [facility] Address [address] [address] Care Team Providers Care Development Rep Name Role Phone Godfrey Dorman MD Primary Care Provider Abram Gaspar MD Unavailable Unavailabl e Reason for Visit * Reason Comments Acne Facial acne, onset 2 -3 years ago. No topicals. Encounter Details Date Type Department Care Team (Latest Contact Info) Description 08/23/2015 1:30 PM PICK PULLING MACHINE OPERATOR - 08/23/2015 11:59 PM [facility] Hospital Encounter [facility] Pediatrics - Dermatology [facility] [place] [address] Elena Eugene PA-C [address] [place] [address] Discharge Disposition: Home or Self Care Social [...] - Inhaled Oxygen Concentration - - Weight 107.9 kg (237 lb 14 oz) 08/23/2015 1:55 P M PICK PULLING MACHINE OPERATOR Height 174.4 cm (5' 8.66 ) 08/23/2015 1:55 PM CS T Body Mass Index 35.48 08/23/2015 1:55 PM PICK PULLING MACHINE OPERATOR Body Mass Index Percentile 99.19% 08/23/2015 1:5 5 PM PICK PULLING MACHINE OPERATOR Growth Chart: [facility] (Boys, 2-2 0 Years) documented in this encounter Discharge Instructions * Patient Instructions* Elena Eugene PA-C - 08/23/2015 2:31 PM PICK PULLING MACHINE OPERATOR Erikc has mild-moderate acne. The most important medications are topical and the most important factor in Erick's treatment is regular use of adequate amounts of topical medication. Pills are not a substitute for topicals. WHAT YOU NEED TO KNOW ABOUT ACNE [...] about whether certain foods make acne worse. [place] foods can make skin more oily. A [...] applied immediately after washing. Use at least 10 gm/month clindamycin X Use at least 10 gm/month benzoyl peroxide Please purchase and ogcf-qnp-bcsdrxj benzoyl peroxide wash. An example brand is Panoxyl which can be purchase online or found at [employer]. Please wash your face, chest, and back 1-2X daily. Be aware, this product can bleach towels and clothes. To minimize this problem rinse well and/or use white towels. WHEN YOU COME BACK, BRING IN ALL THE MEDICATIONS YOU HAVE FILLED - INCLUDING THE EMPTY CONTAINERS Followup Dermatology in 3 months The bumps on Erick's arms are characteristic of keratosis pilaris. KERATOSIS PILARIS [...] cells. People with KP often seek a telephone clerks supervisor???s help. But while this condition causes as [...] Famous people with KP include Reginald Duckworth, [facility]'s Prince Westfall and his mother Princess Gillis [...] the internet for sources of all these oema-whq-taqyybr products. Other options include pulsed-dye laser and [...] commercial sites are focused on promoting products. PULLING MACHINE OPERATOR documented in this encounter Medications at Time of Discharge Medication Sig Dispensed Refills Start Date End Date albuterol HFA (PROVENTIL;VENTOLIN;PRO AIR) 108 (90 BASE) MCG/ACT inhaler 2 puffs every 4 hours while awake for the next 48 hours then as needed for cough. 1 Inhaler 5 04/17/2014 12/04/2015 clindamycin (CLINDAGEL) 1 % gel Apply to affected area every morning 1 Bottle 2 08/23/2015 11/06/2016 tretinoin (RETIN-A) 0.05 % cream Apply to affected area at bedtime 45 g 0 08/23/2015 01/20/2016 documented as of this encounter Progress Notes * Elena Eugene PA-C - 08/23/2015 2:14 PM CST Pediatric Dermatology Clinic Visit Progress Note I had the pleasure of seeing your patient, Erick Triana in the Pediatric Dermatology Clinic at [facility]. Chief Complaint Patient presents with ??? Acne Facial acne, onset 2-3 years ago. No topicals. History of Present Illness This is a new patient evaluation for Erick Triana who was referred by Godfrey Dorman MD. He came to today's visit with his mother, also accompanied by 2 others (grandmother and sister age 4). Erick is a 15 y.o. male who presents today for his first visit for evaluation of acne. Patient Skin Care Regimen Uses Dove Bar: Daily Onset of acne age 12-13; has never used Rx, but past use of many OTC products including Clearasil line. Mom would like him to treat his acne daily. He would like to treat it, but admits daily could be difficult. Grandmother who lives with the patient calls mom during the visit and requests Accutane. Dad and Grandfather had significant acne with scarring. Mom also asks about bumps on his arms, not painful or pruritic. She has similar bumps on her arms and was told by a derm that they could not be treated. Medications Current Outpatient Prescriptions Medication ??? clindamycin (CLINDAGEL) 1 % gel ??? tretinoin (RETIN-A) 0.05 % cream ??? albuterol HFA (PROVENTIL;VENTOLIN;PROAIR) 108 (90 BASE) MCG/ACT inhaler No current facility-administered medications for this encounter. Allergies No Known Allergies Review of Systems Constitutional: No fever. Eyes: No itching in eyes. ENT: No congestion. Cardiovascular: No chest pain. Respiratory: No cough present. Gastrointestinal: No abdominal pain and no vomiting. Musculoskeletal: No joint pain. Neurologic: No headaches. Dermatologic: Acne. Physical Exam Wt 107.9 kg (237 lb 14 oz) BMI 35.48 kg/m2 70%ile (Z=0.52) based on CDC 2-20 Years zsexzao-ame-the data using vitals from 08/23/2015. Wt Readings from Last 3 Encounters: 08/23/15 107.9 kg (237 lb 14 oz) (100 %*, Z = 2.88) 07/12/15 107.7 kg (237 lb 7 oz) (100 %*, Z = 2.90) 02/04/15 102.6 kg (226 lb 3.1 oz) (100 %*, Z = 2.83) * Growth percentiles are based on [facility] 2-20 Years data. Ht Readings from Last 3 Encounters: 08/23/15 1.744 m (5' 8.66 ) (70 %*, Z = 0.52) 07/12/15 1.771 m (5' 9.72 ) (83 %*, Z = 0.95) 10/30/14 1.741 m (5' 8.54 ) (85 %*, Z = 1.05) * Growth percentiles are based on [facility] 2-20 Years data. Body mass index is 35.48 kg/(m^2). General: Healthy and alert. Easy to examine Skin Appearance: Type II skin; fairly well hydrated The following pertinent positives and negatives were noted: Involved sites: Inflammatory papules and pustules>comedones at lateral aspects of forehead and chin; open comedones on nose and ear canals; erythematous patch beginning at mandibular angle and extending to cheek without acneiform lesions; keratotic papules densely scattered on upper>lower arms Assessment & Plan Problem Acne Onset age 12-13; moderate, inflammatory and comedonal; no Rx; family more motivated to treat than pt; KP; Dad and Grandfather with scarring acne Keratosis Pilaris Upper>lower arms; patch on face Orders Placed This Encounter ??? clindamycin (CLINDAGEL) 1 % gel Sig: Apply to affected area every morning Dispense: 1 Bottle Refill: 2 ??? tretinoin (RETIN-A) 0.05 % cream Sig: Apply to affected area at bedtime Dispense: 45 g Refill: 0 Patient Instructions Erick has mild-moderate acne. The most important medications are topical and the most important factor in Erick's treatment is regular use of adequate amounts of topical medication. Pills are not a substitute for topicals. WHAT YOU NEED TO KNOW ABOUT ACNE [...] about whether certain foods make acne worse. [place] foods can make skin more oily. A [...] applied immediately after washing. Use at least 10 gm/month clindamycin X Use at least 10 gm/month benzoyl peroxide Please purchase and cvve-jsi-smppfrs benzoyl peroxide wash. An example brand is Panoxyl which can be purchase online or found at [employer]. Please wash your face, chest, and back 1-2X daily. Be aware, this product can bleach towels and clothes. To minimize this problem rinse well and/or use white towels. WHEN YOU COME BACK, BRING IN ALL THE MEDICATIONS YOU HAVE FILLED - INCLUDING THE EMPTY CONTAINERS Followup Dermatology in 3 months The bumps on Erick's arms are characteristic of keratosis pilaris. KERATOSIS PILARIS [...] cells. People with KP often seek a telephone clerks supervisor???s help. But while this condition causes as [...] Famous people with KP include Reginald Duckworth, [place]'s Prince Westfall and his mother Princess Gillis [...] the internet for sources of all these rnbt-wvx-inarexu products. Other options include pulsed-dye laser and [...] commercial sites are focused on promoting products. Follow-Up As above DAKOTAH Rolon PULLING MACHINE OPERATOR documented in this encounter Plan of Treatment Not on file documented as of this encounter Visit Diagnoses Not on filedocumented in this encounter Care Teams Development Rep Relationship Specialty Start Date End Date Godfrey Dorman MD [facility] [place] [address] PCP - General Pediatrics 05/01/14 Abram Gaspar MD [facility] [place] [address] Student Resident 11/05/14 11/26/15 documented as of this encounter
--- OUTSIDE RECORDS SUMMARY | 2024-08-06 19:03 | XMS_ITS | Encounter Summary ---
Author Organization [facility] Address [address] [address] Care Team Providers Care Machine Operator Replanter Name Role Phone Marisol Roblero MD Primary Care Provider [phone] Reason for Visit * Reason Comments Sore Throat c/o sore throat this am, sent home from school nurse today. Unsure if he has had a fever at home. Has had usp problems with allergies and nasal congestion. States throat feels tight and is worse in the morning, admits to sinus drainage in throat. Encounter Details Date Type Department Care Team (Late st Contact Info) Description 04/05/2013 9:57 AM CDT - 04/05/2013 11:21 AM CDT Emergency ER at [address] [address] Chrissie Murry, YOUTH AGENT[address] [phone] Seasonal allergies (Primary Dx); Obesity Discharge Disposition: Home or Self Care Social [...] Sign Reading Time Taken Comments Blood Pressure 113/82 04/05/2013 10:03 AM CDT Pulse 80 04/05/2013 10:03 AM CDT Temperature 36.6 ??C (97.8 ??F) 04/05/2013 10:03 AM C DT Respiratory Rate 16 04/05/2013 10:03 AM CDT Oxygen Saturation - - Inhaled Oxygen Concentration - - Weight 93.3 kg (205 lb 11 oz) 04/05/2013 10:03 A M CDT Height - - Body Mass Index - - documented in this encounter Discharge Instructions * Discharge Instructions* Chrissie Murry RN,NP - 04/05/2013 11:13 AM CDT Images from the original [...] It may often be treated with simple eoxm-yoj-wqbrmju medicine such as diphenhydramine. Take medicine as [...] as directed. ?? You may use an ykva-hko-xlvruiy antihistamine (diphenhydramine) for hives and itching as [...] Document Reviewed: 03/18/2009 ExitCare?? Patient Information ??2013 [employer]. Hay Fever Hay fever is an allergic reaction to particles in the air. It cannot be passed from person to person. It cannot be cured, but it can be controlled. CAUSES Hay fever is caused by something that triggers an allergic reaction (allergens). The following are examples of allergens: ?? Ragweed. ?? Feathers. ?? Animal dander. ?? Grass and tree pollens. ?? Cigarette smoke. ?? House dust. ?? Pollution. SYMPTOMS ?? Sneezing. ?? Runny or stuffy nose. ?? Tearing eyes. ?? Itchy eyes, nose, mouth, throat, skin, or other area. ?? Sore throat. ?? Headache. ?? Decreased sense of smell or taste. DIAGNOSIS Your caregiver will perform a physical exam and ask questions about the symptoms you are having.??Allergy testing may be done to determine exactly what triggers your hay fever.?? TREATMENT ?? Xdyx-rrz-orklxrp medicines may help symptoms. These include: ?? Antihistamines. ?? Decongestants. These may help with nasal congestion. ?? Your caregiver may prescribe medicines if wkhp-cac-znkzcnu medicines do not work. ?? Some people benefit from allergy shots when other medicines are not helpful. HOME CARE INSTRUCTIONS ?? Avoid the allergen that is causing your symptoms, if possible. ?? Take all medicine as told by your caregiver. SEEK MEDICAL CARE IF: ?? You have severe allergy symptoms and your current medicines are not helping. ?? Your treatment was working at one time, but you are now experiencing symptoms. ?? You have sinus congestion and pressure. ?? You develop a fever or headache. ?? You have thick nasal discharge. ?? You have asthma and have a worsening cough and wheezing. SEEK IMMEDIATE MEDICAL CARE IF: ?? You have swelling of your tongue or lips. ?? You have trouble breathing. ?? You feel lightheaded or like you are going to faint. ?? You have cold sweats. ?? You have a fever. Document Released: 2006 Document Revised: 10/10/2012 Document Reviewed: 10/14/2011 Exercise to Lose Weight Exercise and a healthy diet may help you lose weight. Your doctor may suggest specific exercises. EXERCISE IDEAS AND TIPS ?? Choose low-cost things you enjoy doing, such as walking, bicycling, or exercising to workout videos. ?? Take stairs instead of the elevator. ?? Walk during your lunch break. ?? Park your car further away from work or school. ?? Go to a gym or an exercise class. ?? Start with 5 to 10 minutes of exercise each day. Build up to 30 minutes of exercise 4 to 6 days a week. ?? Wear shoes with good support and comfortable clothes. ?? Stretch before and after working out. ?? Work out until you breathe harder and your heart beats faster. ?? Drink extra water when you exercise. ?? Do not do so much that you hurt yourself, feel dizzy, or get very short of breath. Exercises that burn about 150 calories: ?? Running 1 ?? miles in 15 minutes. ?? Playing volleyball for 45 to 60 minutes. ?? Washing and waxing a car for 45 to 60 minutes. ?? Playing touch football for 45 minutes. ?? Walking 1 ?? miles in 35 minutes. ?? Pushing a stroller 1 ?? miles in 30 minutes. ?? Playing basketball for 30 minutes. ?? Raking leaves for 30 minutes. ?? Bicycling 5 miles in 30 minutes. ?? Walking 2 miles in 30 minutes. ?? Dancing for 30 minutes. ?? Shoveling snow for 15 minutes. ?? Swimming laps for 20 minutes. ?? Walking up stairs for 15 minutes. ?? Bicycling 4 miles in 15 minutes. ?? Gardening for 30 to 45 minutes. ?? Jumping rope for 15 minutes. ?? Washing windows or floors for 45 to 60 minutes. Document Released: 08/21/2011 Document Revised: 03/30/2012 Document Reviewed: 08/21/2011 ExitCare?? Patient Information ??2011 [employer]. * Discharge Instructions* Document, Scanned - 04/06/2013 8:30 PM CDT documented in this encounter Medications [...] as of this encounter ED Notes * Radha Robins RN - 04/05/2013 11:21 AM CDT Discharge instructions given to mother who verbalized understanding. Discussed d/c instructions, f/u information, medication administration, and s/s of worsening condition. Pt ambulatory and alert atdischarge in NAD. Mother denies any further questions at this time, * Chrissie Murry RN,CPNP - 04/05/2013 10:44 AM CDT Images from the original note were not included. EMERGENCY DEPARTMENT 04/05/2013 Dear Doctor, We had the pleasure of caring for your patient, Erick Triana in our emergency department on 04/05/2013. A note from the provider(s) who cared for your patient is attached. Should you wish to access any laboratory results, please call . Should you wish to access any radiology results, please call , option 3. In addition, you can access patient information 24 hours a day, from any computer, through [employer], the online version of our electronic medical record. If you would like to use this service, please call Cherise Mejias, Connectivity Coordinator, at . We appreciate the opportunity to care for your patients. If you would like additional information, please call the emergency department directly at . Sincerely, Chrissie Murry RN,CPNP Division of Emergency Medicine [facility], [place] [facility] [place] I DESIGNATED EMERGENCY DEPARTMENT Provider contact with the patient: 04/05/2013 10:44 Erick Triana [id number] [facility] EMERGENCY DEPARTMENT History Chief Complaint Patient presents with ??? Sore Throat c/o sore throat this am, sent home from school nurse today. Unsure if he has had a fever at home. Has had usp problems with allergies and nasal congestion. States throat feels tight and is worse in the morning, admits to sinus drainage in throat. Sore Throat The history is provided by the parent and patient. This is a new problem. The current episode started 3 to 5 hours ago. The problem has been gradually improving. There has been no fever. There has been congestion, cough and oral intake. There has been no diarrhea, no vomiting, no abdominal pain andno fever.Associated symptoms comments: Rhinorrhea, sneezing. Treatments tried: cough drop. The treatment provided no relief. Past Medical History Diagnosis Date ??? Anatomic airway obstruction ??? Seasonal allergies ??? KEYANA (obstructive sleep apnea) post T&A 2006--continued snoring sleep study 09/22/10 AHI 1.5 O2 desat 91% ??? Thyroid activity decreased ??? Allergic rhinitis 05/19/2011 Past Surgical History Procedure Date ??? Tonsillectomy [...] on file Medications Current Outpatient Prescriptions Medication Status Sig Dispense Refill ??? fexofenadine (PATRIZIA) 180 MG tablet Active Take 1 Tab by mouth at bedtime. 30 Tab 0 ??? albuterol HFA (PROVENTIL;VENTOLIN;PROAIR) 108 (90 BASE) MCG/ACT inhaler Active Inhale 2 Puffs by mouth every 6 hours as needed (per an action plan). 1 Inhaler 6 ??? montelukast (SINGULAIR) 5 MG chew tablet Discontinued Take 1 Tab by mouth at bedtime. 30 Tab 6 Review of Systems Review of Systems Constitutional: Negative. NKA; hx environmental allergies; hx T&A; vaccinations UTD. HENT: Positive for congestion, rhinorrhea, sneezing and postnasal drip. Pt says throat felt bad on waking but has gotten much better and does not really hurt now. Eyes: Negative. Respiratory: Positive for cough. Cardiovascular: Negative. Gastrointestinal: Negative. Negative for vomiting and diarrhea. Genitourinary: Negative. Musculoskeletal: Negative. Skin: Negative. BP 113/82 Pulse 80 Temp 97.8 ??F Resp 16 Wt 93.3 kg (205 lb 11 oz) Physical Exam Physical Exam Nursing note and vitals reviewed. Constitutional: He appears well-developed and well-nourished. He is active. HENT: Head: Atraumatic. Right Ear: Tympanic membrane normal. Left Ear: Tympanic membrane normal. Nose: Nose normal. Mouth/Throat: Mucous membranes are moist. Dentition is normal. Oropharynx is clear. TMs effused Eyes: Conjunctivae normal and EOM are normal. Pupils are equal, round, and reactive to light. Neck: Normal range of motion. Neck supple. No adenopathy. acanthosis nigricans present to posterior neck Cardiovascular: Normal rate and regular rhythm. Pulmonary/Chest: Effort normal and breath sounds normal. Neurological: He is alert. Skin: Skin is warm and dry. Capillary refill takes less than 3 seconds. Procedures Procedures Lab/SPO2 Interpretation Progress Notes Pt alert, well-appearing. ED Course Gma concerned about weight, asks about resources; tips about diet and exercise given, household involvement in changes; wt mgmt clinic # given. Medical Decision Making I have reviewed the: Nursing Notes and Vitals. I have discussed the case with Family/Caregiver. No signs of resp distress or bacterial infection. Avoid allergy triggers, if known. Take medicines as directed. Shower before bed. Call your compress trucker for persistence/worsening or other concerns. [facility] ext [phone]. Clinical Impression Final diagnoses: Seasonal allergies (Primary) Obesity * Nova Patricia RN - 04/05/2013 10:11 AM CDT Introduced self to pt and pt family member. Oriented to call light system. Pt states comfortable atthis time, sitting on stretcher in nad. Informed milk bottling machine operator to see. documented in this encounter Miscellaneous Notes * Miscellaneous Scans - Document, Scanned - 04/06/2013 8:30 PM CDT documented in this encounter Plan of Treatment Not on file documented as of this encounter Visit Diagnoses Diagnosis Seasonal allergies- Primary Allergic rhinitis, cause unspecified Obesity Obesity, unspecified documented in this encounter Care Teams Machine Operator Replanter Relationship Specialty Start Date End Date Marisol Roblero MD [address] [place] [phone] PCP - General 09/03/11 05/15/13 documented as of this encounter
--- OUTSIDE RECORDS SUMMARY | 2024-08-06 19:03 | XMS_ITS | Encounter Summary ---
Author Organization [facility] Address [address] [facility] [place] [address] Care Team Providers Care Visual Display Manager Name Role Phone Kendal Hernandez MD Primary Care Provider [phone] Encounter Details Date Type Department Care Team (Latest Contact Info) Description 09/22/2010 7:34 PM ACCOUNT LIAISON - 09/22/2010 11:59 PM ACCOUNT LIAISON Hospital Encounter [facility] Pediatrics - Sleep Services [address] [place] [address] Discharge Disposition: Home or Self Care Social [...] 01/27/2011 mometasone (NASONEX) 50 MCG/ACT nasal spray [place] 1 [place] into each nostril 2 times daily. 12/11/2010 documented as of this encounter Miscellaneous Notes * Miscellaneous Scans - Document, Scanned - 10/11/2010 7:24 AM ACCOUNT LIAISON documented in this encounter Plan of Treatment Not on file documented as of this encounter Procedures Procedure Name Priority Date/Time Associated Diagnosis Comments PEDIATRIC DIAGNOSTIC POLYSOMNOGRAM Routine 09/22/2010 documented in this encounter Results * PEDIATRIC DIAGNOSTIC POLYSOMNOGRAM (09/22/2010) Signed On Paper Physician [facility] documented in this encounter Visit Diagnoses Not on filedocumented in this encounter Care Teams Visual Display Manager Relationship Specialty Start Date End Date Kendal Hernandez MD [address] [address] PCP - General 08/21/10 11/12/10 documented as of this encounter
--- OUTSIDE RECORDS SUMMARY | 2024-08-06 19:03 | XMS_ITS | Encounter Summary ---
Author Organization [facility] Address [address] [facility] [place] [address] Care Team Providers Care Roll Tube Setter Name Role Phone Godfrey Curry MD Primary Care Provider [phone] Dipika Reddy MD Unavailable [phone] Reason for Visit * Reason Onset Date Comments MEDICATION REFILL 03/23/2017 Encounter Details Date Type Department Care Team (Late st Contact Info) Description 03/23/2017 Refill [facility] Pediatrics - Dermatology [address] [place] [address] Rani Solitario MD [address] [facility] [address] [place] [address] MEDICATION REFILL Social History Tobacco Use Types [...] Telephone Encounter - Rach Monterroso RN - 03/23/2017 12:28 PM CDT RF request for doxycycline hyclate 50 mg caps denied. LW 11/06/16 w/2RF's. LRF per pharmacy; 02/09/17 LV 10/14/16; RTC 3 mos. Pt cxl'd 01/15/17 appt & has not rescheduled. Denial faxed back to pharmacy on 03/23/17 w/instructions to have pt schedule Derm f/u or obtain RF's from PCP. documented in this encounter Plan of Treatment Not on file documented as of this encounter Visit Diagnoses Not on filedocumented in this encounter Care Teams Roll Tube Setter Relationship Specialty Start Date End Date Godfrey Curry MD [address] [place] [phone] PCP - General Pediatrics 05/01/14 Dipika Reddy MD [facility] [place] [address] Resident Student Resident 11/27/15 documented as of this encounter
--- OUTSIDE RECORDS SUMMARY | 2024-08-06 19:03 | XMS_ITS | Encounter Summary ---
Author Organization [facility] Address [address] [place] [address] Care Team Providers Care Stone Derrickman And Rigger Name Role Phone Godfrey Curry MD Primary Care Provider Abram Gaspar MD Unavailable Unavailabl e Reason for Visit * Reason Comments Chills Started today with b ruddy aches, sore throat, and chills. Unknown temp. Normal PO intake, difficulty swallowing. Normal UOP. Denies NVD. Encounter Details Date Type Department Care Team (Late st Contact Info) Description 02/04/2015 10:47 PM CDT - 02/04/2015 11:36 PM CDT Emergency ER at [address] [address] Viral pharyngitis Discharge Disposition: Home or Self Care [...] Sign Reading Time Taken Comments Blood Pressure 141/97 02/04/2015 10:37 PM CDT Pulse 92 02/04/2015 10:37 PM CDT Temperature 36.7 ??C (98.1 ??F) 02/04/2015 1 0:37 PM CDT Respiratory Rate 18 02/04/2015 10:3 7 PM CDT Oxygen Saturation - - Inhaled Oxygen Concentration - - Weight 102.6 kg (226 lb 3.1 oz) 015 10:37 PM CDT Height - - Body Mass Index - - documented in this encounter Discharge Instructions * Discharge Instructions* Tio Fuentes MD - 02/04/2015 11:11 PM CDT Images from the original note were not included. Viral Pharyngitis Viral pharyngitis is a viral infection that produces redness, pain, and swelling (inflammation) of the throat. It can spread from person to person (contagious).?? CAUSES Viral pharyngitis is caused by inhaling a large amount of certain germs called viruses. Many different viruses cause viral pharyngitis. SYMPTOMS Symptoms of viral pharyngitis include: ?? Sore throat. ?? Tiredness. ?? Stuffy nose. ?? Low-grade fever. ?? Congestion. ?? Cough. TREATMENT Treatment includes rest, drinking plenty of fluids, and the use of jhyx-ukr-oebuvzd medication (approved by your caregiver). HOME CARE INSTRUCTIONS ?? Drink enough fluids to keep your urine clear or pale yellow. ?? Eat soft, cold foods such as ice cream, frozen ice pops, or gelatin dessert. ?? Gargle with warm salt water (1 tsp salt per 1 qt of water). ?? If over age 7, throat lozenges may be used safely. ?? Only take mtro-aiy-tojbfhr or prescription medicines for pain, discomfort, or fever as directed by your caregiver. Do not take aspirin. To help prevent spreading viral pharyngitis to others, avoid: ?? Pbufi-pv-yuymp contact with others. ?? Sharing utensils for eating and drinking. ?? Coughing around others. SEEK MEDICAL CARE IF: ?? You are better in a few days, then become worse. ?? You have a fever or pain not helped by pain medicines. ?? There are any other changes that concern you. Document Released: 04/28/2006 Document Revised: 10/10/2012 Document Reviewed: 09/24/2011 ExitCare?? Patient Information ??2013 [employer]. documented in this encounter Medications at Time of Discharge Medication Sig Dispensed Refills Start Date End Date albuterol HFA (PROVENTIL;VENTOLIN;PRO AIR) 108 (90 BASE) MCG/ACT inhaler 2 puffs every 4 hours while awake for the next 48 hours then as needed for cough. 1 Inhaler 5 04/17/2014 12/04/2015 benzocaine-menthol (CHLORASEPTIC) 6-10 MG lozenge Take 1 Lozenge by mouth as needed for Sore Throat. 18 Lozenge 0 12/03/2014 08/23/2015 documented as of this encounter ED Notes * Tio Fuentes MD - 02/04/2015 11:02 PM CDT EMERGENCY DEPARTMENT 02/04/2015 Dear Doctor, We had the pleasure of caring for your patient, Erick Triana in our emergency department on 02/04/2015. A note from the provider(s) who cared for your patient is attached. Should you wish to access any laboratory results, please call . Should you wish to access any radiology results, please call , option 3. In addition, you can access patient information 24 hours a day, from any computer, through [employer], the online version of our electronic medical record. If you would like to use this service, please call Cherise Mejias, Connectivity Coordinator, at . We appreciate the opportunity to care for your patients. If you would like additional information, please call the emergency department directly at . Sincerely, Tio Fuentes MD Division of Emergency Medicine [facility], [place] [facility] EMERGENCY DEPARTMENT AND [facility] [place] TRA[facility]MA C[facility] Provider contact with the patient: 02/04/2015 23:02 Erick Triana [id number] [facility] EMERGENCY DEPARTMENT History Chief Complaint Patient presents with ??? Chills Started today with body aches, sore throat, and chills. Unknown temp. Normal PO intake, difficulty swallowing. Normal UOP. Denies NVD. HPI Comments: Erick Triana is a 14 y.o. Male with a pmh of asthma presenting with chills and sore throat. Symptoms started this morning and continued to worsen today. Noted to have body aches of entire body. Subjective warmth. He hasn't tried any medications at home. Eating and drinking normal but swallowing worsens his pain. Nothing else seems to make her symptoms better or worse. No other associated symptoms identified by the family. No known sick contacts Past Medical History Diagnosis Date ??? Anatomic [...] Outpatient Prescriptions Medication Sig Dispense Refill ??? benzocaine-menthol (CHLORASEPTIC) 6-10 MG lozenge Take 1 Lozenge by mouth as needed for Sore Throat. 18 Lozenge 0 ??? albuterol HFA (PROVENTIL;VENTOLIN;PROAIR) 108 (90 BASE) MCG/ACT inhaler 2 puffs every 4 hours while awake for the next 48 hours then as needed for cough. 1 Inhaler 5 Review of Systems Review of Systems Constitutional: Positive for fatigue. Negative for activity change. HENT: Positive for congestion (chronic, unchanged) and sore throat. Eyes: Negative for discharge and redness. Respiratory: Negative for shortness of breath and wheezing. Cardiovascular: Negative for chest pain and leg swelling. Gastrointestinal: Negative for vomiting, abdominal pain, diarrhea and constipation. Genitourinary: Negative for dysuria and hematuria. Musculoskeletal: Negative for joint swelling. Skin: Negative for rash. Neurological: Negative for syncope and headaches. Hematological: Does not bruise/bleed easily. BP 141/97 mmHg Pulse 92 Temp(Src) 98.1 ??F Resp 18 Wt 102.6 kg (226 lb 3.1 oz) Physical Exam Physical Exam Constitutional: He appears well-developed. No distress. HENT: Head: Normocephalic. Mouth/Throat: Oropharynx is clear and moist. Minor redness of the posterior pharynx, no exudate Eyes: EOM are normal. Right eye exhibits no discharge. Left eye exhibits no discharge. Neck: No tracheal deviation present. Cardiovascular: Normal rate, regular rhythm and normal heart sounds. No murmur heard. Pulmonary/Chest: Effort normal and breath sounds normal. No respiratory distress. He has no wheezes. He has no rales. Abdominal: Soft. Bowel sounds are normal. He exhibits no distension. There is no tenderness. There is no rebound and no guarding. Musculoskeletal: Normal range of motion. He exhibits no tenderness. Neurological: He is alert. He has normal reflexes. No cranial nerve deficit. Skin: Skin is warm. No rash noted. Procedures Procedures ECG Interpretation ECG Interpretation Lab/SPO2 Interpretation Progress Notes Results for orders placed during the hospital encounter of 02/04/15 STREP A SCREEN DIRECT W RFLX STREP A CULTURE Result Value Ref Range Strep A Rapid Negative Negative ED Course Medical Decision Making Plan Discharge home Return for elevated fevers, worsening symptoms or other concerns Ibuprofen and tylenol prn Increase fluid hydration Family verbalized understanding of all education See educational handouts provided Clinical Impression Final diagnoses: Viral pharyngitis documented in this encounter Plan of Treatment Not on file documented as of this encounter Procedures Procedure Name Priority Date/Time Associated Diagnosis Comments STREP A SCREEN DIRECT W RFLX STREP A CULTURE STAT 02/04/2015 10:40 PM CDT CULTURE STREP GROUP A STAT 02/04/2015 10:40 PM CDT documented in this encounter Results * CULTURE STREP GROUP A (02/04/2015 10:40 PM CDT) Culture Negative for Beta Hemolytic Streptococcus Group A AUNDREA 02/07/2015 7:16 AM CDT [facility] Microbiology ENTIRE THROAT (SURFACE REGION OF NECK) / Unknown 02/04/2015 10:40 PM CDT 02/04/2015 10:45 PM CDT Joselyn Steward MD LAB - MICROB IOLOGY ORDERABLES Performing Organization Address City/[facility]/ZIP Co de Phone Number [facility] [address] [phone] * STREP A SCREEN DIRECT W RFLX STREP A CULTURE (02/04/2015 10:40 PM CDT) Strep A Rapid Negative Negative 02/04/2015 10:55 PM CDT [facility] Microbiology ENTIRE THROAT (SURFACE REGION OF NECK) / Unknown 02/04/2015 10:40 PM CDT 02/04/2015 10:45 PM CDT Narrative [facility] - 02/04/2015 10:55 PM CDT Test has reflexed to a Strep A culture. Joselyn Steward MD LAB - MICROB IOLOGY ORDERABLES [facility] [address] [place] [id number] documented in this encounter Visit Diagnoses Diagnosis Viral pharyngitis Acute pharyngitis documented in this encounter Administered Medications Inactive Administered Medications - up to 3 most recent administrations Medication Order MAR Action Action Date Dose Rate Site ibuprofen (MOTRIN) tablet 800 mg 800 mg, Oral, ONCE, 1 dose, On Wed02/04/15 at 2300, Maximum allowable amount = 3200 mg / 24 hours. $ Given 02/04/2015 10:39 PM CDT 800 mg documented in this encounter Active and Recently Administered Medications Times are shown in CDT. Scheduled Medication Order 02/02/2015 02/03/2015 02/04/2015 ibuprofen (MOTRIN) tablet 800 mg (COMPLETED) 800 mg, Oral, ONCE, 1 dose, On Wed02/04/15 at 2300, Maximum allowable amount = 3200 mg / 24 hours. 2239 ($ Given - Prov ider: Dana Rivera RN) documented in this encounter Care Teams Stone Derrickman And Rigger Relationship Specialty Start Date End Date Godfrey Curry MD [facility] [place] [address] PCP - General Pediatrics 05/01/14 Abram Gaspar MD [facility] [place] [address] Student Resident 11/05/14 11/26/15 documented as of this encounter
--- OUTSIDE RECORDS SUMMARY | 2024-08-06 19:03 | XMS_ITS | Encounter Summary ---
Author Organization [facility] Address [address] [facility] [place] [address] Care Team Providers Care Lidar Technician Name Role Phone Sera Leonard DO Unavailable [phone] Godfrey Curry MD Primary Care Provider [phone] Reason for Visit * Reason Onset Date Comments Follow-up 05/09/2014 Encounter Details Date Type Department Care Team (Late st Contact Info) Description 05/09/[address] [facility] - [employer] Project Manager [address] [place] [phone] Debo Rodriguez [address] [address] Follow-up Social History Tobacco Use Types Packs/Day Years Used Date Smoking Tobacco: Never Alcohol Use Standard Drinks/Week Comments No 0 (1 standard drink = 0.6 oz pur e alcohol) Sex and Gender Information Value Date Recorded Sex Assigned at Not on file Gender Identity Not on file Sexual Orientation Not on file documented as of this encounter Miscellaneous Notes * Telephone Encounter - Debo Rodriguez LCSW - 05/09/2014 3:48 PM CDT SOCIAL SERVICE CONSULT - BRIEF Reason for Referral: SW consulted to assist family with resources for mold removal. Assessment/Interventions/Plan: SW reviewed chart and contacted mom via telephone. Mom reports patient resides with her and her spouse in her in-laws home. There is a present mold concern in the home due to an on going leaky roof. Patient's paternal grandparents own the home and are not in a financial situation to fix the mold. Mom is presently seeking independent contractors formold removal. Referred her to her local health department for assistance. Because family owns the home there are no legal services available to aide in pursuit of removal. Mom is strictly seeking financial assistance to assist her in laws while the family resides in the home. No known resources to assist at this time. Will research options and follow up with mom accordingly. Debo Rodriguez LCSW [phone] Pager: [phone] documented in this encounter Plan of Treatment Not on file documented as of this encounter Visit Diagnoses Not on filedocumented in this encounter Care Teams Lidar Technician Relationship Specialty Start Date End Date Godfrey Curry MD [address] [place] [address] PCP - General Pediatrics 05/01/14 Sera Leonard DO Resident Pediatrics 09/27/13 11/04/14 documented as of this encounter
--- OUTSIDE RECORDS SUMMARY | 2024-08-06 19:03 | XMS_ITS | Encounter Summary ---
Author Organization [facility] Address [address] [facility] [place] [address] Care Team Providers Care Mat Repairer Name Role Phone Godfrey Curry MD Primary Care Provider Abram Gaspar MD Unavailable Unavailabl e Reason for Visit * Reason Comments Sore Throat Cough Encounter Details Date Type Department Care Team (Latest Contact Info) Description 07/12/2015 1:57 PM [facility] CREASER - 07/12/2015 11:59 PM [facility] Hospital Encounter [facility] - [facility] [address] [place] [phone] Sarika Aviles MD [address] [place] [phone] Discharge Disposition: Home or Self Care Social [...] Sign Reading Time Taken Comments Blood Pressure 100/72 07/12/2015 2:02 PM [facility] CREASER Pulse 94 07/12/2015 2:02 PM [facility]AMP CREASER Temperature 36.9 ??C (98.5 ??F) 07/12/2015 2:02 PM CS T Respiratory Rate - - Oxygen Saturation 97% 07/12/2015 2:02 PM VAMP CREASER Inhaled Oxygen Concentration - - Weight 107.7 kg (237 lb 7 oz) 07/12/2015 2:02 PM VAMP CREASER Height 177.1 cm (5' 9.72 ) 07/12/2015 2:02 PM CS T Body Mass Index 34.34 07/12/2015 2:02 PM VAMP CREASER Body Mass Index Percentile 98.91% 07/12/2015 2:0 2 PM VAMP CREASER Growth Chart: [facility] (Boys, 2-2 0 Years) documented in this [...] 12/03/2014 08/23/2015 documented as of this encounter Progress Notes * Sarika Aviles MD - 07/12/2015 3:06 PM CST Images from the original note were not included. Division of General [facility] Pediatrics [address] [address] ? Name: Erick Triana Age: 14 y.o. 11 m.o. Sex: male Date: 07/12/2015 : [facility] Acute Visit Erick Triana is a 14 y.o. male brought here today for an acute visit. He is accompanied today by his patient. 14 yo male with a history of allergic rhinitis who presents with sore throat and myalgias. Has had congestion, cough and sore throat for 4 days and myalgias for one day. Still eating and drinking well and attending school. No fevers, abdominal pain, vomiting, or diarrhea. No known sick contacts. Current Medications No outpatient prescriptions have been marked as taking for the 07/12/15 encounter (Hospital Encounter) with Sarika Issa MD. History Past Medical History Diagnosis Date ??? Anatomic airway obstruction ??? Seasonal allergies ??? KEYANA (obstructive sleep apnea) post T&A 2006--continued snoring sleep study 09/22/10 AHI 1.5 O2 desat 91% ??? Thyroid activity decreased ??? Allergic rhinitis 05/19/2011 ??? Torsion of testicle R testicle Allergies Review of patient's allergies indicates no known allergies. Immunizations Up to date except flu vaccine Review of Systems Constitutional: (-) fever Eyes: (-) eye discharge ENT: (+) rhinorrhea and (+) sore throat (-) otalgia Cardiovascular: (-) chest pain Respiratory: (+) cough (-) shortness of breath Gastrointestinal: (-) abdominal pain and (-) vomiting Genitourinary: (-) dysuria Musculoskeletal: (+) myalgia (-) joint tenderness Integumentary / Skin: (-) rash Neurological: (-) headache Hematologic / Lymphatic: (-) adenopathy Allergy / Immunology: (+) seasonal allergies Vitals and Growth Parameters Temp: 98.5 ??F Height: 177.1 cm (5' 9.72 ) 83%ile (Z=0.95) based on CDC 2-20 Years glujstw-afr-ttr data using vitals from 07/12/2015. Weight: 107.7 kg (237 lb 7 oz) 100%ile (Z=2.90) based on CDC 2-20 Years gewsmw-kgd-otq data using vitals from 07/12/2015. BMI: 34.41 99%ile (Z=2.39) based on CDC 2-20 Years BMI-for-age data using vitals from 07/12/2015. BP: 100/72 mmHg Blood pressure percentiles are 6% systolic and 71% diastolic based on 2000 NHANES data. Blood pressure percentile targets: 90: 130/81, 95: 134/85, 99 + 5 mmH/98. Physical Exam Constitutional: Alert, active and well-nourished. Head: Normocephalic. Ears: Normal tympanic membranes. Eyes: Pupils are equal, round, and reactive to light and conjunctivae normal. Nose: Nose normal. Throat: Tonsils absent, erythematous posterior pharynx. Neck: No cervical adenopathy present. Cardiovascular: Regular rhythm, S1 normal and S2 normal. Rate: Normal Murmur: No Pulmonary: Breath sounds normal and effort normal. No respiratory distress. No wheezes . Abdominal: Soft. No distension and no tenderness. Bowel sounds: Normal Musculoskeletal: No edema. Skin: Warm and dry. No rash. Neurological: Alert. Assessment and Plan Viral URI Assessment: Has had 4 days of cough, congestion, and sore throat but no fevers. Rapid strep negative. No signs on physical exam of acute bacterial infection. History and physical most consistent witha viral URI. Plan: - Tylenol as needed for fevers and comfort - Encourage plenty of fluids - F/u if symptoms worsen or fail to improve over the next several days - Received flu vaccine today Orders Placed This Encounter ??? STREP A SCREEN DIRECT W RFLX STREP A CULTURE ??? STREP A SCREEN - POCT (IP) BEAKER ??? influenza quadrivalent vac (FLUZONE PF;FLUARIX PF) injection 0.5 mL ??? DISCONTD: cefTRIAXone (ROCEPHIN) injection 250 mg ??? DISCONTD: azithromycin (ZITHROMAX) tablet 1,000 mg ??? DISCONTD: metroNIDAZOLE (FLAGYL) tablet 2,000 mg Return if symptoms worsen or fail to improve. Sarika Issa MD CREASER Associated attestation - Godfrey Curry MD - 07/21/2015 3:13 PM VAMP CREASER I reviewed history and physical exam with Resident at the time of the visit. Patient presents with Chief Complaint Patient presents with ??? Sore Throat ??? Cough Pt is a 14 yo male here for evaluation of ST, headache and myalgias for the past 4 days. No fever. Tolerating po. I have discussed the history, physical examination, assessment and plan for this patient at length with the resident above. 2 I agree with diagnosis as documented in resident note. Pharyngitis, viral. I agree with documented plan of care. Supportive care. Follow up by phone or in office if symptoms persist or progress. documented in this encounter Plan of Treatment Not on file documented as of this encounter Procedures Procedure Name Priority Date/Time Associated Diagnosis Comments STREP A SCREEN - POCT (IP) BEAKER Routine 07/12/2015 3:58 PM VAMP CREASER documented in this encounter Results * STREP A SCREEN - POCT (IP) BEAKER (07/12/2015 3:58 PM VAMP CREASER) Strep A Rapid POCT negative Negative [facility] POCT TESTING QC Verified Yes Yes [facility] PO CT TESTING Throat swab (specimen) ENTIRE THROAT (SURFACE REGION OF NECK) / Unknown 07/12/2015 3:58 PM VAMP CREASER Sarika Aviles MD LAB - POINT OF CARE ORDERABLES [facility] POCT TESTING [address] [phone] documented in this encounter Visit Diagnoses Diagnosis Sore throat- Primary Acute pharyngitis * Assessment & Plan Note - Sarika Aviles MD - 07/12/2015 5:00 PM VAMP CREASER Associated Problem(s): Viral URI Assessment: Has had 4 days of cough, congestion, and sore throat but no fevers. Rapid strep negative. No signs on physical exam of acute bacterial infection. History and physical most consistent witha viral URI. Plan: - Tylenol as needed for fevers and comfort - Encourage plenty of fluids - F/u if symptoms worsen or fail to improve over the next several days - Received flu vaccine today CREASER documented in this encounter Care Teams Mat Repairer Relationship Specialty Start Date End Date Godfrey Curry MD [address] [place] [phone] PCP - General Pediatrics 05/01/14 Abram Gaspar MD [address] [place] [phone] Student Resident 11/05/14 11/26/15 documented as of this encounter
--- OUTSIDE RECORDS SUMMARY | 2024-08-06 19:03 | XMS_ITS | Encounter Summary ---
Author Organization [facility] Address [address] [facility] [place] [address] Care Team Providers Care Dictating Transcribing Machine Servicer Name Role Phone Marisol Roblero MD Primary Care Provider [phone] Reason for Visit * Reason Comments Cough x 3-4 days; yest whe ezey cough; didn't use inhaler. no fevers. alert, lungs clear. Encounter Details Date Type Department Care Team (Late st Contact Info) Description 11/18/2011 3:03 PM CDT - 11/18/2011 4:56 PM CDT Emergency ER at [address] [address] Dana Carrillo RN,CPNP [address] [place] [id number] URI (upper respiratory infection) Discharge Disposition: [...] Sign Reading Time Taken Comments Blood Pressure 100/70 11/18/2011 3:27 PM CDT Pulse 88 11/18/2011 3:27 PM CDT Temperature 36 ??C (96.8 ??F) 11/18/2011 3:27 PM CDT Respiratory Rate 20 11/18/2011 3:27 PM CDT Oxygen Saturation 97% 11/18/2011 3:27 PM CDT Inhaled Oxygen Concentration - - Weight 74.1 kg (163 lb 5.8 oz) 11/18/2011 3:32 P M CDT Height - - Body Mass Index - - documented in this encounter Discharge Instructions * Discharge Instructions* Dana Carrillo RN,CPNP - 11/18/2011 4:24 PM CDT Cool Mist Vaporizers Vaporizers help relieve the symptoms of a cough and cold. By adding water to the air, mucus becomesthinner, and less sticky. This makes it easier to breathe and also assists you in coughing up secretions. Cool mist vaporizers do not cause serious crystal like hot mist vaporizers ( steamers ). FOLLOW THESE INSTRUCTIONS: ?? Follow the package instructions for your vaporizer. ?? Use a vaporizer that holds a large volume of water (1 and 1/2 to 2 gallons). ?? Do not use anything other than water in the vaporizer. ?? When using the vaporizer, close the windows and doors so the moisture stays in the room. ?? Do not run the vaporizer all of the time as it can cause mold to grow. ?? Clean the vaporizer after each time you use it. ?? Clean and dry the vaporizer well before you store it. Document Released: 04/15/2005 Document Re-Released: 10/15/2009 ExitCare?? Patient Information ??2009 [employer]. Common Cold, Child Colds are caused by a virus which affects the air passages to the lung. This is also called an upper respiratory tract infection. Colds are easy to spread (contagious), especially during the first 3 or 4 days. Medications that kill germs (antibiotics) cannot cure a cold. Cold germs are spread by coughs, sneezes, and klvf-jr-liev contact. A cold will usually clear up [...] closed mouth. ?? Only give your child wcxr-xls-bfokvwn or prescription medicines for pain, discomfort, or [...] worse. Document Released: 04/28/2006 Document Re-Released: 07/01/2009 [facility]?? Patient Information ??2009 [employer]. * Discharge Instructions* Document, Scanned - 11/23/2011 12:51 PM CDT documented in this encounter Medications at Time of Discharge Medication Sig Dispensed Refills Start Date End Date albuterol HFA (PROVENTIL;VENTOLIN;MD OAIR) 108 (90 BASE) MCG/ACT inhalerIndications:Cou gh Inhale 2 Puffs by mouth every 6 hours as needed (per an action plan). 1 Inhaler 6 05/19/2011 11/02/2013 cetirizine (ZYRTEC) 5 MG/5ML syrup Take 10 mL by mouth once daily. 10 mL = 2 teaspoons 300 mL 0 11/18/2011 04/05/2013 ibuprofen (MOTRIN) 400 MG tablet Take 1 Tab by mouth every 6 hours as needed for Pain. 20 Tab 0 08/25/2011 04/05/2013 montelukast (SINGULAIR) 5 MG chew tabletIndications:Roc rgic rhinitis,Cough Take 1 Tab by mouth at bedtime. 30 Tab 6 05/19/2011 04/05/2013 documented as of this encounter ED Notes * Leena Thompson RN - 11/18/2011 4:56 PM CDT Pt active, smiling and playful on discharge. Respirations easy & unlabored. NAD * Dana Carrillo RN,CPNP - 11/18/2011 4:21 PM CDT Images from the original note were not included. EMERGENCY DEPARTMENT 11/18/[address] Marisol Roblero MD We had the pleasure of caring for your patient, Erick Triana in our emergency department on 11/18/2011. A note from the provider(s) who cared for your patient is attached. Should you wish to access any laboratory results, please call . Should you wish to access any radiology results, please call , option 3. In addition, you can access patient information 24 hours a day, from any computer, through [employer]rypted Cloud, the online version of our electronic medical record. If you would like to use this service, please call Cherise Mejias, Connectivity Coordinator, at . We appreciate the opportunity to care for your patients. If you would like additional information, please call the emergency department directly at . Sincerely, Dana Carrillo RN,CPNP Division of Emergency Medicine [place], [place] [facility] [place] DESIGN[facility] EMERGENCY DEPARTMENT Provider contact with the patient: 11/18/2011 4:21 PM Erick Triana [id number] [facility] EMERGENCY DEPT History Chief Complaint Patient presents with ??? Cough x 3-4 days; yest wheezey cough; didn't use inhaler. no fevers. alert, lungs clear. HPI Comments: 11 yo male presents with cough for 3-4 days. Mother reports the cough was wheezy yesterday and patient reports coughing phlem. Mother denies giving Albuterol, stating it is only used as needed for wheezing. Fever, runny nose, congestion and vomiting denied. PMH: Asthma Past Medical History Diagnosis Date ??? Anatomic [...] Outpatient Prescriptions Medication Sig Dispense Refill ??? cetirizine (ZYRTEC) 5 MG/5ML syrup Take 10 mL by mouth once daily. 10 mL = 2 teaspoons 300 mL 0 ??? ibuprofen (MOTRIN) 400 MG tablet Take 1 Tab by mouth every 6 hours as needed for Pain. 20 Tab 0 ??? montelukast (SINGULAIR) 5 MG chew tablet Take 1 Tab by mouth at bedtime. 30 Tab 6 ??? albuterol HFA (PROVENTIL;VENTOLIN;PROAIR) 108 (90 BASE) MCG/ACT inhaler Inhale 2 Puffs by mouthevery 6 hours as needed (per an action plan). 1 Inhaler 6 Review of Systems Review of Systems Constitutional: Negative. HENT: Negative. Eyes: Negative. Respiratory: Positive for cough and wheezing. Negative for apnea, choking, chest tightness, shortness of breath and stridor. Cardiovascular: Negative. Gastrointestinal: Negative. Musculoskeletal: Negative. Neurological: Negative. Hematological: Negative. All relevant systems reviewed. BP 100/70 Pulse 88 Temp 96.8 ??F Resp 20 Wt 74.1 kg (163 lb 5.8 oz) SpO2 97% Physical Exam Physical Exam Nursing note and vitals reviewed. Constitutional: He appears well-developed and well-nourished. He is active. No distress. HENT: Head: Atraumatic. Right Ear: Tympanic membrane normal. Left Ear: Tympanic membrane normal. Nose: Nasal discharge (clear rhinorrhea in both nares) present. Mouth/Throat: Mucous membranes are moist. Dentition is normal. No tonsillar exudate. Oropharynx is clear. Pharynx is normal. Post-nasal drip noted on posterior pharynx. Eyes: Conjunctivae and EOM are normal. Pupils are equal, round, and reactive to light. Right eye exhibits no discharge. Left eye exhibits no discharge. Neck: Normal range of motion. Neck supple. No rigidity or adenopathy. Cardiovascular: Normal rate, regular rhythm, S1 normal and S2 normal. Pulses are palpable. Pulmonary/Chest: Effort normal and breath sounds normal. There is normal air entry. No stridor. No respiratory distress. Air movement is not decreased. He has no wheezes. He has no rhonchi. He has parish. He exhibits no retraction. Lungs CTA bilaterally with good aeration and equal chest expansion. No cough or wheezing present onexam. Patient denies chest pain or shortness of breath. SUSAN = 0+0+0+0+0. Abdominal: Soft. Bowel sounds are normal. He exhibits no distension. There is no tenderness. There is no guarding. Musculoskeletal: Normal range of motion. Neurological: He is alert. Skin: Skin is warm and dry. Capillary refill takes less than 3 seconds. No petechiae, no purpura and no rash noted. He is not diaphoretic. No cyanosis. No jaundice or pallor. Procedures Procedures EKG Interpretation Lab/SPO2 Interpretation Progress Notes Discharge instructions provided: Encourage fluids frequently Promote bed rest until feeling well May give Albuterol, 2 puffs, every 4 hours as needed for wheezing, shortness of breath or cough Follow up with primary care doctor for fever, wheezing despite use of Albuterol or other concerns ED Course Patient discharged to home in stable condition, afebrile and alert. Discussed prescriptions provided, home care and f/u with PMD. Mother verbalizes understanding and has no questions at discharge. Medical Decision Making I have reviewed the: Nursing Notes and Vitals. I have discussed the case with Family/Caregiver. No signs of respiratory distress/discomfort on exam. Clinical Impression Encounter Diagnosis Name Primary? URI (upper respiratory infection) documented in this encounter Miscellaneous Notes * Miscellaneous Scans - Document, Scanned - 01/17/2012 12:30 PM CDT * Miscellaneous Scans - Document, Scanned - 12/30/2011 10:26 AM CDT documented in this encounter Plan of Treatment Not on file documented as of this encounter Visit Diagnoses Diagnosis URI (upper respiratory infection) Acute upper respiratory infections of unspecified site documented in this encounter Care Teams Dictating Transcribing Machine Servicer Relationship Specialty Start Date End Date Marisol Roblero MD [address] [place], [place] [address] [place] [address] PCP - General 09/03/11 05/15/13 documented as of this encounter
--- OUTSIDE RECORDS SUMMARY | 2024-08-06 19:03 | XMS_ITS | Encounter Summary ---
Author Organization [facility] Address [address] [place] [address] Care Team Providers Care Chauffeur Motorbus Name Role Phone Marisol Roblero MD Primary Care Provider [phone] Encounter Details Date Type Department Care Team (Latest Contact Info) Description 01/30/2011 10:24 AM CDT - 01/30/2011 3:15 PM CDT Hospital Encounter [facility] [address] [facility] [place] [address] Anshu Paredes MD [address] [facility] [address] [place] [address] Ear Nose Throat Discharge Disposition: Home or Self Care Social [...] Sign Reading Time Taken Comments Blood Pressure 84/64 01/30/2011 2:05 PM CDT Pulse 100 01/30/2011 2:34 PM CDT Temperature 36.6 ??C (97.8 ??F) 01/30/2011 2:05 PM CD T Respiratory Rate 24 01/30/2011 2:34 PM CDT Oxygen Saturation 98% 01/30/2011 1:45 PM CDT Inhaled Oxygen Concentration - - Weight 66.3 kg (146 lb 2.6 oz) 01/31/20 11 10:35 AM CDT Height 150.6 cm (4' 11.29 ) 01/30/2011 10:35 AM CDT Body Mass Index 29.23 01/30/2011 10:35 AM CDT Body Mass Index Percentile 99.12% 01/30 10:35 AM CDT Growth Chart: [facility] (Boys, 2-2 0 Years) documented in this encounter Discharge Summaries * Prabha Ojeda MD - 01/30/2011 12:39 PM CDT Images from the original note were not included. SAME DAY SURGERY DISCHARGE SUMMARY Patient ID: Erick Triana [id number] 10 y.o. 2000 Discharge Date: 01/30/2011 Discharge Diagnoses: 1. Hypertrophy of adenoids alone Discharge Condition: Stable Discharge Medication: Please see Discharge Instructions for a complete list of medications. No discharge procedures on file. Follow-Up: PRN only Prabha Ojeda MD documented in this encounter Discharge Instructions * Discharge Instructions* Prabha Saenz RN - 01/30/2011 2:52 PM CDT Discharge Instructions for: Erick Triana Discharge Procedure Orders GENERAL ANESTHESIA /IV SEDATION INSTRUCTIONS For the remainder of the day, patient should relax. A feeling of dizziness, light-headedness or drowsiness is not unusual. Move cautiously, fast movements can make this feeling worse. If patient has been lying down, he/she should sit up slowly and pause briefly before standing. We strongly suggest that a responsible adult monitor the patient more closely than usual until tomorrow morning for his/her comfort and safety. CALL PHYSICIAN If unrelieved pain; excessive bleeding at surgical site; excessive redness/unusual drainage at surgical site or IV site; or fever over 102 degrees orally. CALL PHYSICIAN For vomiting that is unrelenting. HOME DIET INSTRUCTIONS Regular diet RETURN TO SCHOOL / DAYCARE In 1-2 days. RETURN TO SPORTS/PHYSICAL EDUCATION CLASSES In 1-2 days. FOLLOW UP ...As needed The following belonging have been returned to you If your child has any worsening of his or her condition, please call your primary care doctor (or their exchange if after hours) or return to the ED if your primary care doctor cannot be reached. 01/30/2011 Discharge Instructions for: Erick Triana Discharge Procedure Orders GENERAL ANESTHESIA /IV SEDATION INSTRUCTIONS For the remainder of the day, patient should relax. A feeling of dizziness, light-headedness or drowsiness is not unusual. Move cautiously, fast movements can make this feeling worse. If patient has been lying down, he/she should sit up slowly and pause briefly before standing. We strongly suggest that a responsible adult monitor the patient more closely than usual until tomorrow morning for his/her comfort and safety. CALL PHYSICIAN If unrelieved pain; excessive bleeding at surgical site; excessive redness/unusual drainage at surgical site or IV site; or fever over 102 degrees orally. CALL PHYSICIAN For vomiting that is unrelenting. HOME DIET INSTRUCTIONS Regular diet RETURN TO SCHOOL / DAYCARE In 1-2 days. RETURN TO SPORTS/PHYSICAL EDUCATION CLASSES In 1-2 days. FOLLOW UP ...As needed The following belonging have been returned to you If your child has any worsening of his or her condition, please call your primary care doctor (or their exchange if after hours) or return to the ED if your primary care doctor cannot be reached. 01/30/2011 Tylenol given at 2:30 PM May be repeated at 6:30 PM * Discharge Instructions* Document, Scanned - 02/02/2011 10:37 AM CDT documented in this encounter Medications at Time of Discharge Medication Sig Dispensed Refills Start Date End Date ferrous sulfate 300 (60 FE) MG tablet Take 300 mg by mouth once daily. 05/05/2011 documented as of this encounter Progress Notes * Nolberto Dotson MD - 01/30/2011 2:15 PM CDT POST-OP ANESTHESIA EVALUATION Erick Triana is Post Op from Scheduled Procedure Scheduled procedure: Adenoidectomy Revision The patient is sufficiently recovered from the acute administration of the anesthesia so as to participate in the evaluation or neurologic status has returned to pre-operative or expected level of consciousness. The post-anesthesia assessment was completed based upon the elements below. The patient is stable and has adequately recovered from anesthesia unless otherwise noted. Post-op Evaluation: Temp: 98.4 ??F Pulse: 88 Resp: 16 SpO2: 98 % BP: 99/52 mmHg Pain Rating Score #: 0 Resp function: Natural Airway Cardiac Function: Stable Mental Status : Awake/Alert Pain: Comfortable / acceptable Nausea / Vomiting: None Post Procedure Hydration: Adequate Other complications A post-op evaluation was performed on the patient with the following assessment: No Apparent Anesthesia Complications Unless otherwise indicated, the patient is being discharged from anesthesia care. * Carlos Pacheco Anes Asst - 01/30/2011 11:09 AM CDT Erick Triana 10 y.o. male : 2000 PRE-ANESTHESIA EVALUATION Scheduled Procedure Scheduled procedure: Adenoidectomy Revision Patient Active Problem List Diagnoses ??? Restless legs syndrome (RLS) ??? KEYANA (obstructive sleep apnea) ??? Poor sleep hygiene Allergies Review of patient's allergies indicates no known allergies. Meds Prescriptions prior to admission Medication Sig Dispense Refill ??? ferrous sulfate 300 (60 FE) MG tablet Take 300 mg by mouth once daily. Current Facility-Administered Medications Medication Dose Route Frequency Provider Last Rate Last Dose ??? midazolam (VERSED) solution 8 mg 8 mg Oral pre-OP once Nolberto Dotson MD Past Medical History Diagnosis Date ??? Anatomic airway obstruction ??? Seasonal allergies ??? KEYANA (obstructive sleep apnea) post T&A 2006--continued snoring sleep study 09/22/10 AHI 1.5 O2 desat 91% ??? Thyroid activity decreased Past Surgical History Procedure Date ??? Tonsillectomy and adenoidectomy 04/01/07 Family History Problem Relation Age of Onset ??? Bleeding Disorders Neg Hx ??? Childhood Hearing Disorder Neg Hx ??? Anesthesia Reaction Maternal Grandmother Labs:No results found for this basename: WBC,HGB,HCT,PLTCOUNT in the last 45018 hoursNo results found for this basename: SODIUM,POTASSIUM,CLORIDE,CO2,BUN,CREATININE,GLUCOSE in the last 78441 hoursNo r esults found for this basename: PT,INR,PTT in the last 21327 hours Test:No results found for this basename: HCGURINE,HCGQUAL in the last 76346 hours VITAL SIGNS Temp: 97.8 ??F Pulse: 78 Resp: 24 BP: 107/50 mmHg Weight: 66.3 kg (146 lb 2.6 oz) Height: 150.6 cm (4' 11.29 ) SpO2: 97 % Pre-Eval ExamPrevious Review I reviewed previous documentation: Yes PHYSICAL EXAM NPO status: Since Midnight Heart Sounds: S1 S2 Respiratory Pattern/Effort: CTA Oriented x 3: Yes Teeth: Loose (L lower and R upper canines ) Airway Class: II ANESTHESIA ASA: II Anesthesia Choices: General Post-Op: PACU PRE-EVAL REVIEW I have reviewed all previously documented physician evaluations: Yes Patient prefers [place] I have discussed anesthesia with the mom including possible complications and techniques. He/She/They understand(s) and consent(s). * Nolberto Dotson MD - 01/30/2011 11:09 AM CDT I have personally reviewed the patient's condition and agree with the above evaluation and anesthetic plan. documented in this encounter H&P Notes * Yoel Martines MD - 01/30/2011 10:56 AM CDT Otolaryngology Short Stay Form Patient name: Erick Triana Date of : 2000 Today's Date: 01/30/2011 HPI: Erick Triana is a 10 y.o. male with adenoid hypertrophy, s/p T+A, nasal obstruction despite nasal sprays and antihistamines REVIEW OF SYMPTOMS: Within normal limits except as above MEDICATIONS: No current facility-administered medications on file prior to encounter. No current outpatient prescriptions on file prior to encounter. ALLERGIES: No Known Allergies IMMUNIZATIONS: UTD DEVELOPMENTAL HISTORY: Age appropriate PREVIOUS SERIOUS ILLNESS/SURGERY: Past Surgical History Procedure Date ??? Adenoidectomy PREVIOUS CHILDHOOD ILLNESS: Past Medical History Diagnosis Date ??? Anatomic airway obstruction ??? Seasonal allergies ??? KEYANA (obstructive sleep apnea) PERINENT FAMILY / SOCIAL HISTORY: Family History Problem Relation Age of Onset ??? Bleeding Disorders Neg Hx ??? Childhood Hearing Disorder Neg Hx ??? Anesthesia Reaction Maternal Grandmother PHYSICAL EXAM: BP 107/50 Pulse 78 Temp 97.8 ??F Resp 24 Wt 66.3 kg (146 lb 2.6 oz) BMI 29.23 kg/m2 GEN: NAD HEAD: NCAT EYES: EOMI EARS: deferred NOSE: patent THROAT: clear NECK: supple HEART: Regular rate and rhythm, normal pulses and capillary refill LUNGS: clear to auscultation, no wheezes, rales, or rhonchi ABDOMEN: Abdomen is soft, no tenderness, masses, or organomegaly EXTREMITIES: no clubbing, cyanosis or edema NEURO: no focal findings or movement disorder note SKIN: wnl ASSESMENT: AH PLAN: adenoidectomy documented in this encounter OR Notes * Operative - Prabha Ojeda MD - 01/30/2011 12:39 PM CDT Patient name: Erick Triana Date of : 2000 Date of Procedure: 01/30/11 Pre-Op Diagnosis: Adenoid hypertrophy Post-Op Diagnosis: Same Procedure: Adenoidectomy Surgeon: Reggie Resident: Rusty Anesthesia: General endotracheal Indications for procedure: Erick Triana is a 10 y.o. male with a history of adenoid hypertrophy. They present today for adenoidectomy. Risks & benefits were discussed with the parents who agree to proceed. Details of Procedure: After appropriate informed consent was obtained, the patient was taken to the operating room and placed in a supine position on the table. A McIvor mouth gag was placed in the patient's mouth and opened to reveal tonsils which were absent in size. A red rubber catheter was then placed through each nostril and around the soft palate so as to retract it anteriorly. A mirror was used to visualize the adenoids which were noted to be 2+ in size. These were then fully ablated to the choana using coblation at settings of 9 and 3. The patient was then allowed to awaken whereupon they were extubated & taken to recovery in stable condition. Dr. Paredes was present for the entirity of this case. Estimated Blood Loss: Minimal Complications: None Condition: Stable Dispo: Home Medications: 1. Tylenol as needed for pain Follow-Up: Patient to follow-up as needed 01/30/2011 documented in this encounter Miscellaneous Notes * Miscellaneous Scans - Document, Scanned - 02/02/2011 10:37 AM CDT * Miscellaneous Scans - Document, Scanned - 02/02/2011 10:37 AM CDT * Miscellaneous Scans - Document, Scanned - 02/02/2011 10:37 AM CDT * Miscellaneous Scans - Document, Scanned - 02/02/2011 10:37 AM CDT documented in this encounter Plan of Treatment Not on file documented as of this encounter Visit Diagnoses Diagnosis Hypertrophy of adenoids alone documented in this encounter Administered Medications Inactive Administered Medications - up to 3 most recent administrations Medication Order MAR Action Action Date Dose Rate Site acetaminophen (TYLENOL) solution 994.5 mg 994.5 mg (15 mg/kg ? 66.3 kg), Oral, ONCE, 1 dose, On Wed01/30/11 at 1445, Maximum recommended doses should not exceed 5 doses per 24 hours. $ Given 01/30/2011 2:45 PM CDT 994.5 mg isolyte-S pH 7.4 infusion 75 mL/hr, Intravenous, POST-OP CONTINUOUS, Starting on Wed01/30/11 at 1245, Until 01/31/11 at 0457 Current Rate 01/30/2011 1:14 PM CDT 75 mL/hr 75 mL/hr midazolam (VERSED) solution 8 mg 8 mg, Oral, PRE-OP ONCE, 1 dose, On Wed01/30/11 at 1200 $ Given 01/30/2011 12:08 PM CDT 8 mg midazolam (VERSED) solution ADS Med 1 dose, Starting on Wed01/30/11 at 1208, Until Wed01/30/11 at 1209, ANITHA TEJADA: cabinet override $ Given 01/30/2011 12:09 PM CDT 8 mg documented in this encounter Active and Recently Administered Medications Times are shown in CDT. Scheduled Medication Order 01/28/2011 01/29/2011 01/30/2011 acetaminophen (TYLENOL) solution 994.5 mg (COMPLETED) 994.5 mg (15 mg/kg ? 66.3 kg), Oral, ONCE, 1 dose, On Wed01/30/11 at 1445, Maximum recommended doses should not exceed 5 doses per 24 hours. 1445 ($ Given - Prov ider: Prabha Pierson RN) midazolam (VERSED) solution 8 mg (COMPLETED) 8 mg, Oral, PRE-OP ONCE, 1 dose, On Wed01/30/11 at 1200 1208 ($ Given - Prov ider: Lovely Gama RN) Continuous Medication Order 01/28/2011 01/29/2011 01/30/2011 isolyte-S pH 7.4 infusion (CANCELED) 75 mL/hr, Intravenous, POST-OP CONTINUOUS, Starting on Wed01/30/11 at 1245, Until 01/31/11 at 0457 1314 (Current Rate - Provider: Alba Silva RN - Comment: isolyte started in OR)1504 (Stopped - Provider: Prabha Anderson CAMRYN) No Frequency Medication Order 01/28/2011 01/29/2011 01/30/2011 midazolam (VERSED) solution ADS Med (COMPLETED) 1 dose, Starting on Wed01/30/11 at 1208, Until Wed01/30/11 at 1209, ANITHA TEJADA: cabinet override 1209 ($ Given - Prov ider: Lovely Gama RN) documented in this encounter Care Teams Chauffeur [employer] Relationship Specialty Start Date End Date Marisol Roblero MD [address] [place] [address] PCP - General 11/13/10 04/30/11 documented as of this encounter
--- OUTSIDE RECORDS SUMMARY | 2024-08-06 19:03 | XMS_ITS | Encounter Summary ---
Author Organization [facility] Address [address] [place] [address] Care Team Providers Care Welder Tech Name Role Phone Godfrey Curry MD Primary Care Provider [phone] Dipika Reddy MD Unavailable [phone] Reason for Visit * Reason Onset Date Comments MEDICATION REFILL 12/02/2017 Encounter Details Date Type Department Care Team (Late st Contact Info) Description 12/02/2017 Refill [facility] Pediatrics - Dermatology [facility] [place] [address] Mary Ellen Cornell RN MEDICATION REFILL Social History Tobacco Use Types [...] Encounter - Mary Ellen Cornell RN - 12/02/2017 12:54 PM CDT Received faxed refill request from pts pharmacy for: ?? doxycycline hyclate 100 mg caps, qty 60; last RF 10/05/17 (Rx dated 07/05/17 w/2 RFs) LV 10/01/17 with plan to initiate isotretinoin. Start of treatment held d/t elevated liver enzymes requiring GI eval. Seen by GI 11/12/17; recs for lab eval, hold isotretinoin--consider alternative treatment. Pt scheduled for liver biopsy 01/06/18. Previously discussed continuing topical acne medications with mom. D/w Dr. Solitario; rec to continue topical treatment only pending GI work-up. Spoke with mom; relayed above. Mom agrees. Pt reportedly feels acne improved when taking doxy, but returns when off medication. Dosing inconsistent. Encouraged use of topical medications. Confirmed f/u appt. Future Appointments Date Time Provider Department Center 12/17/2017 2:30 PM Elena Eugene PA-C [facility] 01/06/2018 10:30 AM [facility] 02/11/2018 10:45 AM Jose Rafael Thompson MD [facility] documented in this encounter Plan of Treatment Not on file documented as of this encounter Visit Diagnoses Not on filedocumented in this encounter Care Teams Welder Tech Relationship Specialty Start Date End Date Godfrey Curry MD [address] [place] [phone] PCP - General Pediatrics 05/01/14 Dipika Reddy MD [facility] [place] [address] Resident Student Resident 11/27/15 documented as of this encounter
--- OUTSIDE RECORDS SUMMARY | 2024-08-06 19:03 | XMS_ITS | Encounter Summary ---
Author Organization [facility] Address [address] [place] [address] Care Team Providers Care Pocket Flap Creasing Machine Operator Name Role Phone Sandra Nettles MD Primary Care Provider [phone] Reason for Visit * Reason Comments Pain Leg per pt, muscle in ba ck of thigh has been hurting for the past week (hamstring muscle) Encounter Details Date Type Department Care Team (Late st Contact Info) Description 08/25/2011 8:16 PM MECHANICAL SYSTEM TECHNICIAN - 08/25/2011 9:46 PM MECHANICAL SYSTEM TECHNICIAN Emergency ER at [address] [address] Ese Morin, TRACER BULLET SECTION SUPERVISOR[address] [id number] Unspecified site of sprain and strain Discharge Disposition: Home or Self Care Social [...] Sign Reading Time Taken Comments Blood Pressure 119/76 08/25/2011 8:30 PM MECHANICAL SYSTEM TECHNICIAN Pulse 88 08/25/2011 8:30 PM MECHANICAL SYSTEM TECHNICIAN Temperature 36.4 ??C (97.6 ??F) 08/25/2011 8:30 PM CS T Respiratory Rate 16 08/25/2011 8:30 PM MECHANICAL SYSTEM TECHNICIAN c ta Oxygen Saturation - - Inhaled Oxygen Concentration - - Weight 74.8 kg (164 lb 14.5 oz) 08/25/2011 8:30 PM MECHANICAL SYSTEM TECHNICIAN Height - - Body Mass Index - - documented in this encounter Discharge Instructions * Discharge Instructions* Ese Morin RN,CPNP - 08/25/2011 9:16 PM MECHANICAL SYSTEM TECHNICIAN Sprains Sprains are painful injuries to the joints. The pain comes from partial or complete tearing of ligaments. Ligaments hold bones together at the joint. A sprain may cause puffiness (swelling) and bruising at the place of injury. RAMIN E CARE ?? For the first 24 hours, keep the injured limb raised on 2 pillows when lying down. ?? Place the ice in a plastic bag with a towel around it. Apply ice bags every 2 hours for 20 to 30minutes to the injured area. Do this for the first 24 hours. Then apply as told by your doctor. ?? Take medicine as told by your doctor. ?? If an alex bandage was applied, remove and reapply every 3 to 4 hours. Apply firmly, but not tight enough to cause your skin to turn bluish in color. If your skin becomes cold, numb, or puffs up (swells) more, the alex wrap may be to tight. If any of these things happen, remove the alex bandage andreapply more loosely. GET HELP IF: ?? You have ongoing pain and are not able to use the injured area for more than 2 to 3 days. Document Released: 01/04/2009 ExitCare?? Patient Information ??2009 [employer] ANICAL SYSTEM TECHNICIAN * Discharge Instructions* Document, Scanned - 08/29/2011 12:42 PM MECHANICAL SYSTEM TECHNICIAN ANICAL SYSTEM TECHNICIAN documented in this encounter Medications at Time of Discharge Medication Sig Dispensed Refills Start Date End Date albuterol HFA (PROVENTIL;VENTOLIN;PROA IR) 108 (90 BASE) MCG/ACT inhalerIndications:Cough Inhale 2 Puffs by mouth every 6 hours as needed (per an action plan). 1 Inhaler 6 05/19/2011 11/02/2013 ibuprofen (MOTRIN) 400 MG tablet Take 1 Tab by mouth every 6 hours as needed for Pain. 20 Tab 0 08/25/2011 04/05/2013 montelukast (SINGULAIR) 5 MG chew tabletIndications:Allerg ic rhinitis,Cough Take 1 Tab by mouth at bedtime. 30 Tab 6 05/19/2011 04/05/2013 documented as of this encounter ED Notes * Ese Morin RN,CPNP - 08/25/2011 8:50 PM CST Images from the original note were not included. EMERGENCY DEPARTMENT 08/25/[address] Sandra Nettles MD We had the pleasure of caring for your patient, Erick Triana in our emergency department on 08/25/2011. A note from the provider(s) who cared for your patient is attached. Should you wish to access any laboratory results, please call . Should you wish to access any radiology results, please call , option 3. In addition, you can access patient information 24 hours a day, from any computer, through [employer], the online version of our electronic medical record. If you would like to use this service, please call Cherise Mejias, Connectivity Coordinator, at . We appreciate the opportunity to care for your patients. If you would like additional information, please call the emergency department directly at . Sincerely, Ese Morin RN,CPNP Division of Emergency Medicine [facility], [facility] [place] FIRST TRAUMA I DESIGNATED EMERGENCY DEPARTMENT 08/25/2011 8:50 PM Erick Garcialivan [id number] [facility] EMERGENCY DEPT History Chief Complaint Patient presents with ??? Pain Leg per pt, muscle in back of thigh has been hurting for the past week (hamstring muscle) General The history is provided by the parent. This is a new problem. The current episode started more than2 days ago. The problem occurs daily. The problem has not changed since onset.The pain is mild. Thesymptoms are localized to the left leg.The symptoms are aggravated by bending. The symptoms are relieved by nothing. Treatments tried: advil. The treatment provided mild relief. Past Medical History Diagnosis Date ??? [...] Medication Sig Dispense Refill ??? ibuprofen (MOTRIN) 400 MG tablet Take [...] Systems Review of Systems Constitutional: Negative for fever. Gastrointestinal: Negative for vomiting and diarrhea. Musculoskeletal: Complains of pain in his left hamstring when he goes up and down stairs. No complaints of pain whenat rest or when walking normally. Denies injury to leg. Skin: Negative for rash and wound. BP 119/76 Pulse 88 Temp 97.6 ??F Resp 16 Wt 74.8 kg (164 lb 14.5 oz) Physical Exam Physical Exam Nursing note and vitals reviewed. Constitutional: He appears well-developed and well-nourished. He is active. No distress. HENT: Mouth/Throat: Mucous membranes are moist. Cardiovascular: Normal rate and regular rhythm. Pulmonary/Chest: Effort normal and breath sounds normal. No respiratory distress. Air movement is not decreased. He exhibits no retraction. Abdominal: Soft. Bowel sounds are normal. Musculoskeletal: Normal range of motion. He exhibits no edema, no tenderness, no deformity and no signs of injury. No complaints with extension, flexion, external rotation, internal rotation, Lifting, or walking. No complaints of pain with gentle and deep palpation. No swelling or erythema. Neurological: He is alert. Skin: Skin is warm. Capillary refill takes less than 3 seconds. He is not diaphoretic. Procedures Procedures EKG Interpretation Lab/SPO2 Interpretation Progress Notes ED Course Medical Decision Making Clinical Impression Encounter Diagnosis Name Primary? Unspecified site of sprain and strain ANICAL SYSTEM TECHNICIAN documented in this encounter Miscellaneous Notes * Miscellaneous Scans - Document, Scanned - 09/11/2011 12:12 PM CST ANICAL SYSTEM TECHNICIAN * Miscellaneous Scans - Document, Scanned - 09/11/2011 11:35 AM CST ANICAL SYSTEM TECHNICIAN documented in this encounter Plan of Treatment Not on file documented as of this encounter Visit Diagnoses Diagnosis Unspecified site of sprain and strain documented in this encounter Care Teams Pocket Flap Creasing Machine Operator Relationship Specialty [place] [address] [place] [address] PCP - General 08/25/11 09/02/11 documented as of this encounter
--- OUTSIDE RECORDS SUMMARY | 2024-08-06 19:03 | XMS_ITS | Encounter Summary ---
Author Organization [facility] Address [address] [place] [address] Care Team Providers Care Dietary Supervisor Name Role Phone Marisol Roblero MD Primary Care Provider [phone] Reason for Visit * Reason Comments Sleep Apnea Encounter Details Date Type Department Care Team (Latest Contact Info) Description 11/13/2010 1:00 PM CDT - 11/13/2010 1:35 PM CDT Hospital Encounter [facility] Pediatrics - Sleep [address] [place] [address] Discharge Disposition: Home or Self Care Social History Tobacco Use Types Packs/Day Years Used Date Smoking Tobacco: Never Assessed Sex and Gender Information Value Date Recorded Sex Assigned at Not on file Gender Identity Not on file Sexual Orientation Not on file documented as of this encounter Discharge Instructions * Patient Instructions* Daija Lewis MD - 11/13/2010 2:28 PM CDT 1. Nasal Rinses. 2. Diet modification. 3. Continue to follow thyroid function with child development consultant. 4. ENT evaluation of adenoids. 5. CPAP packet/teaching given today. 6. Sleep hygiene suggestions: wind down routine 1 hour before bedtime. Calming and consistent. 7. Suggested reading: What to do when you worry too much, by Ladi Rouse. 8. Consider CPAP in the future if snoring persists. 9. Ferritin check today, if low will start iron. documented in this encounter Medications at Time [...] 01/27/2011 mometasone (NASONEX) 50 MCG/ACT nasal spray [place] 1 [place] into each nostril 2 times daily. 12/11/2010 documented as of this encounter Progress Notes * Daija Lewis MD - 12/07/2010 9:35 PM CDT Dear Doctor, We had the pleasure of seeing your patient Erick Triana, a 10 y.o. male, at the [facility] at [facility] for evaluation of snoring and concern about obstructive sleep apnea. He was accompanied by his mother and grandmother who assisted in providing the history. Erick had a polysomnogram on 09/22/10 which showed obstructive sleep apnea characterized primarily by hypopneas with an AHI of 1.5 and hypopnea index of 1.1. Erick has been heard snoring softly occasionally at home. He has frequent tossing and turning. He does feel tired in the am at school but has not fallen asleep at school. He has had behavior problems both and home and school for a few years. However, he does feel he is being bullied at school. Weekday: Bedtime: 9:30/10 pm Waketime: 6:30 am Weekend: Bedtime: 11 pm/ 1 am Waketime: 10 am/noon Naps: very rare Bedtime routine: no wind down time. No routine. Falls asleep easily. Sleep Apnea Symptoms: soft snoring, sweating, tossing and turning, problems concentrating, low mood/ irritability and behavior problems. RLS Symptoms: restless sleep. Mom with RLS. There are no nightmares, night terrors, sleepwalking, sleep talking. ROS: 10 systems reviewed with pertinents noted above. [place] Sleepiness Scale: 3 Past Medical History : Adenotonsillectomy when Erick was approximately 7 years old. Recent abnormal thyroid test and is following up with his PCP. Family history of sleep disorder RLS: mom SLEEP APNEA: Grandmother, Grandfather SOCIAL HX: SCHOOL PERFORMANCE: A's B's C's. Difficulty getting along with other children at school. He is being teased and bullied by the other children. At home there are frequent arguments with his mother. His mother describes him as generally a worrier . No Known Allergies Current outpatient prescriptions:ferrous sulfate 325 (65 FE) MG tablet, Take 1 Tab by mouth 2 timesdaily. Take with vitamin C such as OJ. Avoid milk in the same 30 minutes. miralax for tummy troubles. , Disp: 62 Tab, Rfl: 2; cetirizine (ZYRTEC) 10 MG tablet, Take 10 mg by mouth daily., Disp: , Rfl: ; mometasone (NASONEX) 50 MCG/ACT nasal spray, [place] 1 [place] into each nostril 2 times daily., Disp:, Rfl: Component Name 11/13/10 1525 FERRITIN 61 Exam: Height: 147.9 cm (4' 10.23 ) Weight: 65.681 kg (144 lb 12.8 oz) Empty flowsheet group. Vitals: 11/13/10 1343 BP: 112/72 Pulse: 80 Resp: 20 Weight: 65.681 kg (144 lb 12.8 oz) SpO2: 98% General: alert, oriented, well appearing CV: RRR, no murmurs Lungs: Clear to auscultation bilaterally Head and Face: no lesions, symmetrical. Eyes: extraocular muscles intact Ears: inspection: normal pinnae shape and position, Nasal: normal external nose, mucous membranes, septum, turbinates are erthematous and boggy. Oral Cavity: Throat: tonsil: absent Mallampati score: 3 Neck: supple without tenderness or crepitus, no palpable adenopathy. Impression/Plan: 1. Obstructive sleep apnea, characterized primarily by hypopneas and a low AHI. The patient is hesitant to try CPAP at this time; A CPAP packet was reviewed with the patient and his family. Will start nasal rinses. Nasonex as prescribed. Diet modification for weight management. A follow up with theP is suggested to review the thyroid tests. The patient has a history of adenotonsillectomy but wi ll follow up with ENT to evaluate any adenoidal regrowth. 2. Poor Sleep hygiene: Suggestions: wind down routine 1 hour before bedtime. Calming and consistentroutine. 3. Regarding behavior problems. Discussed talking to the school and counceling. Suggested reading: What to do when you worry too much, by Ladi Rouse. 4. Restlessness during sleep/Restless Leg Syndrome: Ferritin check today, if low will start iron. Thank you for allowing me to participate in the care of your patient. Please call with any questions at [phone]. Daija Lewis MD [facility] Anode Adjuster, [facility] documented in this encounter Miscellaneous Notes * Miscellaneous Scans - Document, Scanned - 01/22/2011 3:52 PM CDT documented in this encounter Plan of Treatment Not on file documented as of this encounter Procedures Procedure Name Priority Date/Time Associated Diagnosis Comments FERRITIN Routine 11/13/2010 3:25 PM CDT Restless legs syndrome (RLS) documented in this encounter Results * FERRITIN (11/13/2010 3:25 PM CDT) Ferritin 61 10 - 105 ng/ml [facility] BLOOD SPECIMEN / Unknown 11/13/2010 3:25 PM CDT 11/13/2010 3:33 PM CDT Daija Lewis MD LAB - CHEMISTRY HILDA Gross Organization Address City/State/ZIP Co de Phone Number [facility] [address] [place] [id number] documented in this encounter Visit Diagnoses Diagnosis Restless legs syndrome (RLS) KEYANA (obstructive sleep apnea) Obstructive sleep apnea (adult) (pediatric) Poor sleep hygiene Other specific disorder of sleep of nonorganic origin documented in this encounter Care Teams Dietary Supervisor Relationship Specialty Start Date End Date Marisol Roblero MD [address] [place] [address] PCP - General 11/13/10 04/30/11 documented as of this encounter
--- OUTSIDE RECORDS SUMMARY | 2024-08-06 19:03 | XMS_ITS | Encounter Summary ---
Author Organization [facility] Address [address] [place] [address] Care Team Providers Care Chemical Production Machine Operator Name Role Phone Godfrey Curry MD Primary Care Provider Dipika Reddy MD Unavailable Reason for Visit * Reason Comments Acne LV 01/20/16. skin is worse since LV, concerned with face only. scarring present. using only Dove bar soap. stopped doxy after 1-1/2 months when did not see improvement in skin, stopped tretinoin cream after 1 1/2-2 months Encounter Details Date Type Department Care Team (Latest Contact Info) Description 10/14/2016 3:30 PM CDT - 10/14/2016 11:59 PM CDT Hospital Encounter [facility] Pediatrics - Dermatology [address] [place] [address] Elena Eugene PA-C [address] [place] [address] Discharge Disposition: Home or Self Care Social [...] - Inhaled Oxygen Concentration - - Weight 120.9 kg (266 lb 8.6 oz) 10/14/2016 4:08 PM CDT Height 180.7 cm (5' 11.14 ) 10/14/2016 4:08 PM C DT Body Mass Index 37.03 10/14/2016 4:08 PM CDT Body Mass Index Percentile 99.27% 10/14/2016 4:0 8 PM CDT Growth Chart: [facility] (Boys, 2-2 0 Years) documented in this encounter Discharge Instructions * Patient Instructions* Zach Du MD - 10/14/2016 4:50 PM CDT Erick's acne has not improved using minimal amounts of tretnoin as the only topical. Using additional medications can help, but the most important factor in treatment efficacy is regular use of adequate amounts of medication. Pills are not a substitute for topicals. Consider hormonal therapy if her acne worsens with more aggressive topical treatment. Prescribed Medications Name Apply AM AM AM Apply PM Additional Instructions tretinoin 0.05% cream X Wait at least 20 minutes after washing your face. Apply sparingly. If irritation occurs, use a moisturizer-best applied immediately after washing. Use at least 20 gm/month foryour face. benzoyl peroxide* X Buy this over the counter clindamycin gel X doxycycline X X Take 50mg twice daily *Be aware using 2 different topical medications together may decrease effectiveness. Please purchase and [id number] 5% benzoyl peroxide wash. An example brand is Panoxyl which can be purchase online or found at [employer]. Please wash your face, chest, and back 1-2X daily. Be aware, this product can bleach towels and clothes. To minimize this problem rinse well and/or use white towels. Be aware that some foods will interfere [...] Tominimize your risk while taking this medication: Write down when you start taking medication to monitor that you are taking it regularly ?? Wear a hat with a wide brim or a bill facing forward and glasses that block ultraviolet rays. ?? Apply Broad Spectrum sunscreen before going outside. ?? Read the product label. Make sure the active ingredients list includes at least one of the following: zinc oxide, titanium dioxide, avobenzone (Exploretripol 1789) or mexoryl ?? Some brands with [...] HAVE FILLED - INCLUDING THE EMPTY CONTAINERS documented in this encounter Medications at Time of Discharge Medication Sig Dispensed Refills Start Date End Date clindamycin (CLINDAGEL) 1 % gel Apply to affected area 2 times daily 75 mL 10/14/2016 11/06/2016 clindamycin (CLINDAGEL) 1 % gel Apply to affected area every morning 1 Bottle 2 08/23/2015 11/06/2016 doxycycline (VIBRAMYCIN) 50 MG capsule Take 1 Cap by mouth every 12 hours 60 Cap 10/14/2016 11/06/2016 doxycycline (VIBRAMYCIN) 50 MG capsule Take 1 Cap by mouth every 12 hours 60 Cap 2 01/20/2016 11/06/2016 tretinoin (RETIN-A) 0.05 % cream Apply to affected area at bedtime 45 g 10/14/2016 11/06/2016 tretinoin (RETIN-A) 0.05 % cream Apply to affected area at bedtime 45 g 1 01/20/2016 11/06/2016 documented as of this encounter Progress Notes * Rani Solitario MD - 10/14/2016 7:49 PM CDT Pediatric Dermatology Clinic Visit Progress Note I had the pleasure of seeing your patient, Erick Triana in the Pediatric Dermatology Clinic at [facility]. Chief Complaint Patient presents with ??? Acne LV 01/20/16. skin is worse since LV, concerned with face only. scarring present. using only Dove barsoap. stopped doxy after 1-1/2 months when did not see improvement in skin, stopped tretinoin creamafter 1 1/2-2 months History of Present Illness This is a follow up evalution for Erick Triana. He came to today's visit with his mother, also accompanied by his sister. Erick is a 16 y.o. male with a h/o acne. He presents for his visit, a 9 month follow-up. Patient records reviewed: Epic Adherence: Poor Response to treatment: None Global assessment: Moderate and Severe Interval History Severity: Severe Associated symptoms: Pain Additional HPI Documentation: Was last seen in 01/2016 and given Rx Doxy 50mg BID and Retin-A 0.05% cream. Erick used both medications for approx 1.5 months and did not notice improvement so stopped using medications. He denies any side effects from Doxy. He states that the Retin-A made his skin more oily. He is not using OTC BPO. He is requesting Accutane because his father had bad acne as a teen and responded well to a course of Accutane. Mother and Erick are concerned because they have noted scarring on his b/l cheeks. Medications Current Outpatient Prescriptions Medication ??? clindamycin (CLINDAGEL) 1 % gel ??? doxycycline (VIBRAMYCIN) 50 MG capsule ??? tretinoin (RETIN-A) 0.05 % cream ??? doxycycline (VIBRAMYCIN) 50 MG capsule ??? tretinoin (RETIN-A) 0.05 % cream ??? clindamycin (CLINDAGEL) 1 % gel No current facility-administered medications for this encounter. Allergies No Known Allergies Review of Systems Constitutional: No fever. Eyes: No itching in eyes. ENT: No rhinorrhea. Cardiovascular: No chest pain. Respiratory: No cough present. Gastrointestinal: No constipation. Genitourinary: No dysuria. Endocrine: No heat intolerance. Allergy / Immunology: No seasonal allergies present. Hematologic: No enlarged nodes. Musculoskeletal: No joint pain. Neurologic: No headaches. Dermatologic: Acne. Behavioral: No changes in patient behavior patterns. Physical Exam Ht 1.807 m (5' 11.14 ) Wt 120.9 kg (266 lb 8.6 oz) BMI 37.03 kg/m2 82 %ile (Z= 0.91) based on CDC 2-20 Years edvrgvj-wye-wyu data using vitals from 10/14/2016. Wt Readings from Last 3 Encounters: 10/14/16 120.9 kg (266 lb 8.6 oz) (>99 %, Z= 3.00)* 01/20/16 116.6 kg (257 lb 0.9 oz) (>99 %, Z= 3.06)* 12/04/15 110 kg (242 lb 8 oz) (>99 %, Z= 2.88)* * Growth percentiles are based on CDC 2-20 Years data. Ht Readings from Last 3 Encounters: 10/14/16 1.807 m (5' 11.14 ) (82 %, Z= 0.91)* 01/20/16 1.761 m (5' 9.33 ) (71 %, Z= 0.54)* 12/04/15 1.735 m (5' 8.31 ) (60 %, Z= 0.25)* * Growth percentiles are based on [facility] 2-20 Years data. Body mass index is 37.03 kg/(m^2). General: Healthy and alert. Easy to examine Skin Appearance: Type II skin; fairly well hydrated Full body skin examination was performed including face, scalp neck, arms, legs, palms, soles, chest, abdomen, back and axillae. The following pertinent positives and negatives were noted: Involved sites: Numerous 3-4 mm inflammatory pink papules and pustules > comedones on forehead/cheeks/chin > upper back > chest Mild rolling textural change and violaceous discoloration on b/l cheeks Relevant sites of sparing: Neck, palms, soles and folds Fingernails: Normal Toenails: Normal Lymphadenopathy: No significant [...] emphasized the importance of med adherence; Rx Doxy 50mg BID, Clindagel, Retin-A 0.05% cream QHS, OTC BPO Keratosis Pilaris Upper>lower arms; face; complicated by folliculitis 01/22/16 LE skin Cx neg Strep, neg Staph 10/14/2016 unchanged Orders Placed This Encounter ??? clindamycin (CLINDAGEL) 1 % gel Sig: Apply to affected area 2 times daily Dispense: 75 mL Refill: 0 ??? doxycycline (VIBRAMYCIN) 50 MG capsule Sig: Take 1 Cap by mouth every 12 hours Dispense: 60 Cap Refill: 0 ??? tretinoin (RETIN-A) 0.05 % cream Sig: Apply to affected area at bedtime Dispense: 45 g Refill: 0 Patient Instructions Erick'scott acne has not improved using minimal amounts of tretnoin as the only topical. Using additional medications can help, but the most important factor in treatment efficacy is regular use of adequate amounts of medication. Pills are not a substitute for topicals. Consider hormonal therapy if her acne worsens with more aggressive topical treatment. Prescribed Medications Name Apply AM AM AM Apply PM Additional Instructions tretinoin 0.05% cream X Wait at least 20 minutes after washing your face. Apply sparingly. If irritation occurs, use a moisturizer-best applied immediately after washing. Use at least 20 gm/month foryour face. benzoyl peroxide* X Buy this over the counter clindamycin gel X doxycycline X X Take 50mg twice daily *Be aware using 2 different topical medications together may decrease effectiveness. Please purchase and hnul-ins-dvtcgga 5% benzoyl peroxide wash. An example brand is Panoxyl which can be purchase online or found at [employer]. Please wash your face, chest, and back 1-2X daily. Be aware, this product can bleach towels and clothes. To minimize this problem rinse well and/or use white towels. Be aware that some foods will interfere [...] Tominimize your risk while taking this medication: Write down when you start taking medication to monitor that you are taking it regularly ?? Wear a hat with a wide brim or a bill facing forward and glasses that block ultraviolet rays. ?? Apply Broad Spectrum sunscreen before going outside. ?? Read the product label. Make sure the active ingredients list includes at least one of the following: zinc oxide, titanium dioxide, avobenzone (Parsol 178) or mexoryl ?? Some brands with [...] HAVE FILLED - INCLUDING THE EMPTY CONTAINERS Attending Note Previous documentation from my team has been reviewed and discussed. In my attending note above, I have confirmed these findings other than where revisions were made. Follow-Up Return in about 3 months (around 01/14/2017). Rani Solitario MD documented in this encounter Plan of Treatment Not on file documented as of this encounter Visit Diagnoses Diagnosis Acne vulgaris Other acne Keratosis pilaris Other specified congenital anomaly of skin documented in this encounter Care Teams Chemical Production Machine Operator Relationship Specialty Start Date End Date Godfrey Curry MD [address] [place] [address] PCP - General Pediatrics 05/01/14 Dipika Reddy MD [address] [place] [phone] Resident Student Resident 11/27/15 documented as of this encounter
--- OUTSIDE RECORDS SUMMARY | 2024-08-06 19:03 | XMS_ITS | Encounter Summary ---
Author Organization [facility] Address [address] [place] [address] Care Team Providers Care Systems Administrator Name Role Phone Sandra Nettles MD Primary Care Provider [phone] Reason for Visit * Reason Comments Allergy Symptoms first visit asthma w hen younger Encounter Details Date Type Department Care Team (Latest Contact Info) Description 05/19/2011 12:01 AM CDT - 05/19/2011 11:59 PM CDT Hospital Encounter [facility] Pediatrics - Allergy [address] [place] [id number] Sreedhar Gaston MD [address] [place] [address] Allergy Discharge Disposition: Home or Self Care Social [...] Sign Reading Time Taken Comments Blood Pressure 100/76 05/19/2011 1:36 PM CDT Pulse 84 05/19/2011 1:36 PM CDT Temperature 36.6 ??C (97.8 ??F) 05/19/2011 1:36 PM CD T Respiratory Rate 24 05/19/2011 1:36 PM CDT Oxygen Saturation - - Inhaled Oxygen Concentration - - Weight 68.1 kg (150 lb 2.1 oz) 05/19/2011 1:36 P M CDT Height 150.5 cm (4' 11.25 ) 05/19/2011 1:36 PM C DT Body Mass Index 30.07 05/19/2011 1:36 PM CDT Body Mass Index Percentile 99.24% 05/19/2011 1:3 6 PM CDT Growth Chart: [facility] (Boys, 2-2 0 Years) documented in this encounter Medications at Time of Discharge Medication Sig Dispensed Refills Start Date End Date albuterol HFA (PROVENTIL;VENTOLIN;PRO AIR) 108 (90 BASE) MCG/ACT inhalerIndications:Coug h Inhale 2 Puffs by mouth every 6 hours as needed (per an action plan). 1 Inhaler 6 05/19/2011 11/02/2013 fluticasone propionate (FLONASE) 50 MCG/ACT nasal sprayIndications:Allerg ic rhinitis Melcher Dallas 1 Melcher Dallas into each nostril once daily. 1 Bottle 6 05/19/2011 08/25/2011 montelukast (SINGULAIR) 5 MG chew tabletIndications:Aller gic rhinitis,Cough Take 1 Tab by mouth at bedtime. 30 Tab 6 05/19/2011 04/05/2013 documented as of this encounter Progress Notes * Sreedhar Gaston MD - 05/19/2011 2:40 PM CDT I had the pleasue of seeing Erick Triana for an initial visit in Allergy and Immunology at [facility] . He is a 10 y.o. male. His history was provided by the mother. Dr Paredes referrred him for evaluation of AR. He is SP T and A. He sniffs, has nasal congestion, has sneezing. He occasionally coughs with exertion. He does not awaken with cough. He has not wheeze. He gets a rash with red bumps over his upper legs, and upper arms. He has not had a reaction to food. He did get a rash once when touching a tomato plant. ENVIRONMENTAL HISTORY: home type: house type of heat: Forced air gas type of air conditioning: Central A/C type of aniyah: wfkq-fs-sags carpeting type of foundation: Basement moisture exposure: dampness negative for mice positive for cockroach, pets: dog TOBACCO HISTORY: No INFECTIONS: (Number/ organism if identified): Otitis Media past Sinustitis 0 Pneumonia 0 RSV 0 Croup 0 Thrush 0 Skin infections/Abcesses 0 Other infections requiring IV antibiotics or hospitalization (specify) PAST MEDICAL HISTORY: he has a history of Past Medical History Diagnosis Date ??? Anatomic airway obstruction ??? Seasonal allergies ??? KEYANA (obstructive sleep apnea) post T&A 2006--continued snoring sleep study 09/22/10 AHI 1.5 O2 desat 91% ??? Thyroid activity decreased ??? Allergic rhinitis 05/19/2011 PAST SURGICAL HISTORY: Past Surgical History Procedure Date ??? Tonsillectomy and adenoidectomy 04/01/07 ??? Adenoidectomy ??? Tonsillectomy FAMILY HISTORY: he has a family history includes Anesthesia Reaction in his maternal grandmother; Depression in an unspecified family member; and Learning Disability in his mother. There is no history of Bleeding Disorders and Childhood Hearing Disorder. DRUG REACTIONS: None HISTORY: Term, , uncomplicated IMMUNIZATIONS: up to date and documented. REVIEW OF SYSTEMS: ENT: positive for - positive for sleep apnea Respiratory: positive for - cough Gastrointestinal: negative for - abdominal pain Dermatological: positive for - rash EXAMINATION: BP 100/76 Pulse 84 Temp(Src) 97.8 ??F (Oral) Resp 24 Wt 68.1 kg (150 lb 2.1 oz) BMI 30.07kg/m2 General Assessment: Erick is a well-appearing, in no apparent distress Skin Exam: papular rash on upper arms and upper legs Eyes: bilateral conjunctival injection, but no crusting or discharge Ears: normal TMs bilaterally Nose: mucosal edema and mucosal pallor Mouth: 2+ tonsils Neck: no adenopathy Heart: Normal PMI, regular rate & rhythm, normal S1,S2, no murmurs, rubs, or gallops Chest: clear to auscultation Abdomen: soft, non-tender. Bowel sounds normal. No masses, no organomegaly Extremities: no clubbing RESULTS FROM TODAYS EVALUATION: Quality of Life Questionnaire Quality of Life Symptoms Sneezin-Some of the time Stuffy nose: 1-All of the time Runny nose: 3-Some of the time Postnasal drainage: 4-A little of the time Itchy eyes/ itchy nose: 4-A little of the time Quality of Life Total Score: 15 Quality of Life Total Score %: 60 Skin Test Data Ordered and performed to help determine if allergic sensitization was contributing to the patient'ssypmtoms Board 1 Percutaneous Skin Test Test Date: 05/19/11 Rat Result: 0 Mouse Result: 0 Dog Result: 0 Cat Result: 0 Dermatophagoides pteronyssinus Result: 3+ Dermatophagoides farinae Result: 0 Cockroach Result: 0 Trichophyton Result: 0 Board 2 Percutaneous Skin Test Histamine Result: 3+ Saline Result: 0 Bermuda Grass Result: 0 Hood Grass Result: 0 Alternaria Result: 3+ Hormodendrum Result: 0 Aspergillus furnigatus Result: 0 Helminthosporium Result: 0 Board 3 Percutaneous Skin Test Justyn Result: 0 Elm Result: 0 Maple/Boxelder Result: 0 Catahoula/Pecan Result: 0 Giant Ragweed Result: 0 Plantain Result: 0 Chancellor Result: 0 Meridian Result: 0 Board 4 Percutaneous Skin Test Short Ragweed Result: 0 Bernardino Grass: 0 Mugwort Result: 0 Bahia Result: 0 Wheaton Result: 0 Radnor Pollen Result: 0 Juniper Result: 0 Birch Result: 0 IMPRESSIONS: Patient Active Problem List Diagnoses Date Noted ??? Allergic rhinitis 05/19/2011 ??? Cough 05/19/2011 ??? Keratosis pilaris 05/19/2011 ??? ADHD (attention deficit hyperactivity disorder) 03/23/2011 ??? ODD (oppositional defiant disorder) 03/23/2011 ??? Restless legs syndrome (RLS) 12/07/2010 ??? KEYANA (obstructive sleep apnea) 12/07/2010 ??? Poor sleep hygiene 12/07/2010 PLAN: For Erick, I have prescribed: Orders Placed This Encounter ??? montelukast (SINGULAIR) 5 MG chew tablet Sig: Take 1 Tab by mouth at bedtime. Dispense: 30 Tab Refill: 6 ??? fluticasone propionate (FLONASE) 50 MCG/ACT nasal spray Sig: Melcher Dallas 1 Melcher Dallas into each nostril once daily. Dispense: 1 Bottle Refill: 6 ??? albuterol HFA (PROVENTIL;VENTOLIN;PROAIR) 108 (90 BASE) MCG/ACT inhaler Sig: Inhale 2 Puffs by mouth every 6 hours as needed (per an action plan). Dispense: 1 Inhaler Refill: 6 EDUCATION: We have reviewed: Environmental controls for the above, his medication use, and an action plan for the albuterol. Return in about 4 months (around 09/15/2011). documented in this encounter Plan of Treatment Not on file documented as of this encounter Visit Diagnoses Diagnosis Allergic rhinitis Allergic rhinitis, cause unspecified Cough Restless legs syndrome (RLS) KEYANA (obstructive sleep apnea) Obstructive sleep apnea (adult) (pediatric) Poor sleep hygiene Other specific disorder of sleep of nonorganic origin ADHD (attention deficit hyperactivity disorder) Attention deficit disorder with hyperactivity ODD (oppositional defiant disorder) Oppositional defiant disorder of childhood or adolescence Keratosis pilaris Other specified congenital anomaly of skin documented in this encounter Care Teams Systems Administrator Relationship Specialty [place] [address] [place] [address] PCP - General 05/18/11 05/20/11 documented as of this encounter
--- OUTSIDE RECORDS SUMMARY | 2024-08-06 19:03 | XMS_ITS | Encounter Summary ---
Author Organization [facility] Address [address] [place] [address] Care Team Providers Care Field Engineer Name Role Phone Godfrey Curry MD Primary Care Provider Dipika Reddy MD Unavailable Reason for Visit * Reason Onset Date Comments Refill Request 05/24/2017 Encounter Details Date Type Department Care Team (Late st Contact Info) Description 05/24/2017 Telephone [facility] Pediatrics - [facility] Pediatrics [address] [place] [id number] Godfrey Curry MD [address] [place] [phone] Refill Request Social History Tobacco Use [...] * Telephone Encounter - Sindy Glass - 05/24/2017 12:00 PM CDT Spoke with mom. She states patient needs refill of claritin. Discussed that he needs to be seen forWCC. Mother states that she will speak with Erick when he gets home from school about when to schedule WCC. She will call back this afternoon or tomorrow to schedule appointment. Claritin refilled for 1 month. * Telephone Encounter - Ila Ortiz - 05/24/2017 11:50 AM CDT Erick Triana's, 16 y.o. male, mother is calling requesting medication refill. Medication: loratadine (CLARITIN) 10 MG tablet Last well child checkup: 12/04/15 Pharmacy verified. Future Appointments Date Time Provider Department Center 07/05/2017 1:00 PM Elena Eugene PA-C [facility] documented in this encounter Plan of Treatment Not on file documented as of this encounter Visit Diagnoses Diagnosis Seasonal allergic rhinitis, unspecified chronicity, unspecified trigger documented in this encounter Care Teams Field Engineer Relationship Specialty Start Date End Date Godfrey Curry MD [address] [place] [phone] PCP - General Pediatrics 05/01/14 Dipika Reddy MD [address] [place] [phone] Resident Student Resident 11/27/15 documented as of this encounter
--- OUTSIDE RECORDS SUMMARY | 2024-08-06 19:03 | XMS_ITS | Encounter Summary ---
Author Organization [facility] Address [address] [place] [address] Care Team Providers Care Singer And Unloader Name Role Phone Marisol Roblero MD Primary Care Provider [phone] Reason for Visit * Reason Comments Follow-up adenoidectomy 2 week s ago. Encounter Details Date Type Department Care Team (Latest Contact Info) Description 02/12/2011 2:04 PM CDT - 02/12/2011 11:59 PM CDT Hospital Encounter [facility] Pediatrics - Sleep [address] [place] [address] Discharge Disposition: Home or Self Care Social [...] Sign Reading Time Taken Comments Blood Pressure 102/62 02/12/2011 2:05 PM CDT Pulse 85 02/12/2011 2:05 PM CDT Temperature - - Respiratory Rate 20 02/12/2011 2:05 PM CDT Oxygen Saturation 97% 02/12/2011 2:05 PM CDT Inhaled Oxygen Concentration - - Weight 67.3 kg (148 lb 4.8 oz) 02/12/2011 2:05 P M CDT Height 147.8 cm (4' 10.19 ) 02/12/2011 2:05 PM C DT Body Mass Index 30.79 02/12/2011 2:05 PM CDT Body Mass Index Percentile 99.52% 02/12/2011 2:0 5 PM CDT Growth Chart: [facility] (Boys, 2-2 0 Years) documented in this encounter Discharge Instructions * Patient Instructions* Daija Lewis MD - 02/12/2011 2:31 PM CDT Schedule School Year: Wake 6:30 am Leave home 7:20 am Return from school at 3 pm Homework/free time 5:00 set the table 5:30 pm 6:00 pm trash 6:30 bath 7:30 pm wind down- get clothes ready for school, pj's, brush teeth, read a calm book etc 8:30 in bed lights out 2. Nasal Rinses 3. Continue iron for 2 months 4. Follow up with Dr Jiménez regarding school behavior. 5. Observe breathing during sleep 6. Healthy eating. documented in this encounter Medications at Time of Discharge Medication Sig Dispensed Refills Start Date End Date cetirizine (ZYRTEC) 10 MG tablet Take 10 mg by mouth once daily. 03/05/2011 ferrous sulfate 300 (60 FE) MG tablet Take 300 mg by mouth once daily. 05/05/2011 documented as of this encounter Progress Notes * Daija Lewis MD - 02/12/2011 3:56 PM CDT Chief Complaint Patient presents with ??? Follow-up adenoidectomy 2 weeks ago. Dear Doctor, We had the pleasure of seeing Erick Triana, a 10 y.o. male, at the Pediatric Sleep Disorders Clinic at [facility] for follow up of restlesslegs syndrome, sleep apnea, and poor sleep hygiene.He was accompanied by his mom and grandmother tothis visit. Since his last visit to the sleep clinic in October 2010 he has had an adenoidectomy and has been taking Ferrous sulfate for approximately 2 months. They have have noticed improvement in sleep in that he sleeps through the night from 10:30 pm to 9:30 am (approximatley 11 hours every night). He does not have sleepiness during the day which is an improvement. He does not take daytime naps. He has notbeen heard snoring, though his mom hasn't been paying close attention as she has been busy with hernew baby. Erick has also been taking 1 hour prior to his bedtime to wind down . Erick continues to have some nasal drainage. He has not been doing nasal rinses but is willing to try. His baseline polysomnogram 09/2010 had an AHI of 1.5 and min O2 sat of 91%. ROS: 10 systems reviewed with pertinents noted above. I reviewed his past medical, past surgical, and family history with no new updates since I last sawhim. Social Hx: Erick has cut down on sodas. He will be starting school in 1 month and had a previous history of behavioral problems at school. His mother would like him to go to counceling prior to the school year starting so the problems can be managed early so Erick can enjoy school. Allergies Allergen Reactions ??? Other Chronic rhinitis Current outpatient prescriptions:cetirizine (ZYRTEC) 10 MG tablet, Take 10 mg by mouth once daily.,Disp: , Rfl: ; ferrous sulfate 300 (60 FE) MG tablet, Take 300 mg by mouth once daily. , Disp: , Rfl: Component Name 11/13/10 1525 FERRITIN 61 Exam: Height: 147.8 cm (4' 10.19 ) Weight: 67.268 kg (148 lb 4.8 oz) Patient Vitals for the past 24 hrs: Pulse Resp BP 02/12/11 1405 85 20 102/62 mmHg Vitals: 02/12/11 1405 BP: 102/62 Pulse: 85 Resp: 20 Weight: 67.268 kg (148 lb 4.8 oz) SpO2: 97% General: alert, oriented, well appearing, overweight. CV: RRR, no murmurs Lungs: Clear to auscultation bilaterally Head and Face: no lesions, symmetrical. Eyes: extraocular muscles intact Ears: inspection: normal pinnae shape and position, Nasal: normal external nose, mucous membranes and septum. Oral Cavity: Postnasal drainage visible Throat: tonsil: absent Mallampati score: 4 Neck: supple without tenderness or crepitus, no palpable adenopathy. Impression/Plan: 1. Obstructive sleep apnea: symptoms have improved after adenoidectomy. There is still nasal drainage. 2. Restless Legs Syndrome: Erick has been on Ferrous sulfate for approximately 2 months. His sleep feels more settled and he has no complaints of leg pains. 3. Sleep Hygiene/Routine: They have made many improvements with his wind down time. Plan: 1. Nasal Rinses. Observe for any snoring. 2. Continue iron for 2 months. Will recheck Ferritin/assess clinically in 2 months. 3. Reviewed sleep hygiene. Went over target schedule with Erick. He will start gradually shifting his bedtime earlier starting 2 weeks prior to school starting. 4. Follow up with Dr Jiménez regarding school behavior. 5. Weight management. Thank you for allowing me to participate in the care of your patient. Please call me with any questions at [phone]. Daija Lewis MD [facility] documented in this encounter Plan of Treatment Not on file documented as of this encounter Visit Diagnoses Not on filedocumented in this encounter Care Teams Singer And Unloader Relationship Specialty [place] [address] [place] [phone] PCP - General 11/13/10 04/30/11 documented as of this encounter
--- OUTSIDE RECORDS SUMMARY | 2024-08-06 19:03 | XMS_ITS | Encounter Summary ---
Author Organization [facility] Address [address] [facility] [place] [address] Care Team Providers Care Street Roller Engineer Name Role Phone Marisol Roblero MD Primary Care Provider [phone] Encounter Details Date Type Department Care Team (Latest Contact Info) Description 03/05/2011 2:48 PM CDT - 03/05/2011 2:55 PM CDT Hospital Encounter [facility] Pediatrics - ENT [address] [place] [address] Anshu Paredes MD [address] [facility] [address] [place] [address] Ear Nose Throat Discharge Disposition: Home or [...] daily. 05/05/2011 documented as of this encounter Plan of Treatment Not on file documented as of this encounter Visit Diagnoses Not on filedocumented in this encounter Care Teams Street Roller Engineer Relationship Specialty Start Date End Date Marisol Roblero MD [address] [place] [phone] PCP - General 11/13/10 04/30/11 documented as of this encounter
--- OUTSIDE RECORDS SUMMARY | 2024-08-06 19:03 | XMS_ITS | Encounter Summary ---
Author Organization [facility] Address [address] [place] [address] Care Team Providers Care Livestock Sales Representative Name Role Phone Marisol Roblero MD Primary Care Provider [phone] Reason for Visit * Reason Comments Injury Head Pt fell out of large truck and hit back of head on metal foot rail on truck. No LOC, no vomiting. Pt acting appropriate. + bump to back of head. Initally dizzy, but not anymore. + headache. Encounter Details Date Type Department Care Team (Late st Contact Info) Description 09/03/2011 3:10 PM DIRECTOR OF DANCE - 09/03/2011 4:47 PM DIRECTOR OF DANCE Emergency ER at [address] [address] Js Gao, CONTRACTING MANAGER-[address] [address] Head injury, unspecified Discharge Disposition: Home or Self Care Social [...] Sign Reading Time Taken Comments Blood Pressure 113/71 09/03/2011 3:14 PM DIRECTOR OF DANCE Pulse 71 09/03/2011 3:14 PM DIRECTOR OF DANCE Temperature 36.4 ??C (97.6 ??F) 09/03/2011 3:14 PM CS T Respiratory Rate 16 09/03/2011 3:14 PM DIRECTOR OF DANCE Oxygen Saturation 98% 09/03/2011 3:14 PM DIRECTOR OF DANCE Inhaled Oxygen Concentration - - Weight 72.3 kg (159 lb 6.3 oz) 09/03/2011 3:14 P M DIRECTOR OF DANCE Height - - Body Mass Index - - documented in this encounter Discharge Instructions * Discharge Instructions* Js Gao HAIRSPRING CUTTER - 09/03/2011 4:27 PM DIRECTOR OF DANCE Concussion and Brain Injury, Child A blow or jolt to the head can disrupt the normal function of the brain. Doctors often call this type of brain injury a ???concussion?? or a ???closed head injury.?? Concussions are usually not life threatening. Even so, the effects of a concussion can be serious. CAUSES ?? A blow or jolt to the head. ?? Sometimes whiplash can cause a concussion. SYMPTOMS The brain is very complex. Every brain injury is different. Some symptoms may appear right away, while others may not show up for days or weeks after the concussion. The signs of concussion can be hard to notice. Early on, problems may be missed by patients, family members, and caregivers. Childrenmay look fine even though they are acting or feeling differently. SYMPTOMS IN YOUNG CHILDREN Although children can have the same symptoms of brain injury as adults, it is harder for young children to let others know how they are feeling. Call your child's caregiver if your child seems to be getting worse or if you notice any of the following: ?? Listlessness, tiring easily. ?? Irritability, crankiness. ?? Change in eating or sleeping patterns. ?? Change in the way they play. ?? Change in the way they perform or act at school. ?? Lack of interest in favorite toys. ?? Loss of new skills, such as toilet training. ?? Loss of balance, unsteady walking. SYMPTOMS OF BRAIN INJURY - ALL AGES These symptoms are usually temporary, but may last for days, weeks, or even longer. Some symptoms include: ?? Low-grade headaches that will not go away. ?? Having more trouble than usual with: l Remembering things. l Paying attention or concentrating. l Organizing daily tasks. l Making decisions and solving problems. l Slowness in thinking, acting, speaking or reading. l Getting lost or easily confused. l Neck pain. l Feeling tired all the time, lack of energy. l Change in sleeping pattern. (Sleeping for much longer periods of time than before. Trouble sleeping or insomnia.) l Loss of balance, feeling light-headed or dizzy. Increased sensitivity to: ?? Sounds. ?? Lights. ?? Distractions. Other symptoms might include: ?? Blurred vision or eyes that tire easily. ?? Loss of sense of taste or smell. ?? Ringing in the ears. ?? Mood changes: Feeling sad, anxious or listless. ?? Becoming easily irritated ?? Lack of motivation. DIAGNOSIS Your child???s caregiver can diagnose a concussion or mild brain injury based on your description of injury and your description of your child???s symptoms. Your child's evaluation might include: ?? A brain scan to look for signs of injury to the brain. Even if the test shows no injury, you maystill have a concussion. ?? Blood tests to be sure other problems are not present. ?? Depending on your circumstances, your caregivers might evaluate you for other injuries. TREATMENT ?? Children with a concussion need to be seen by a doctor. ?? Most children with concussions are treated in an emergency department or a doctor's office. Somechildren must stay in the hospital overnight for further treatment. ?? The doctors may do a CT scan of the brain or other tests to help diagnose your child's injuries.Even if the brain injury does not show up on these tests, your child may still have a concussion. ?? Your child's caregiver will send you home with important instructions to follow. For example, your caregiver may ask you to wake your child up every few hours during the first night and day after the injury. Follow all your caregiver's instructions. ?? Tell your caregiver if your child is already taking any medicines (prescription, vrhn-ibf-[id number] or natural remedies). Also, talk with your child's caregiver if your child is taking blood thinners (anticoagulant drugs). These drugs may increase the chances of complications. ?? Only give your child mokh-bwr-[id number] or prescription medicines for pain, discomfort or fever asdirected by your child's caregiver. How fast children recover from brain injury varies. Although most children have a good recovery, how quickly they improve depends on many factors. These factors include how severe their concussion was, what part of the brain was injured, their age, and how healthy they were before the concussion. Even after the brain injury has healed, you should protect your child from having another concussion. HOME CARE INSTRUCTIONS - CHILDREN Parents and caretakers of children who have had a concussion can help them heal by: ?? Having the child get plenty of rest. This is very important after a concussion because it helps the brain to heal. ?? Making sure the child avoids activities that could result in a second blow or jolt to the head such as riding a bicycle, playing sports, or climbing playground equipment until the caregiver says the child is well enough to take part in these activities. Receiving another concussion before a brain injury has healed can be dangerous. People who have had repeated brain injuries, may have serious problems later in life. These problems include difficulty with concentration and memory, and sometimes with physical coordination. ?? Giving the child only those drugs that the caregiver has approved. ?? Talking with the caregiver about when the child should return to school and other activities andhow to deal with the challenges the child may face. ?? Sharing information about concussion with teachers, counselors, babysitters, coaches and others who interact with the child so they can understand what has happened and help meet the child's needs. HOME CARE INSTRUCTIONS - OLDER CHILDREN AND TEENAGERS ?? Get plenty of sleep at night, and rest during the day. ?? Return to your normal activities gradually, not all at once. ?? Avoid activities that could lead to a second brain injury, such as contact or recreational sports. Stop these for one week after symptoms resolve, or until your caregiver says you are well enough to take part in these activities. ?? Talk with your caregiver about when you can return to school, sports, or work. Ask your caregiver about ways to help your teachers, coaches or employer understand what has happened to you. ?? Ask your caregiver when you can drive a car, ride a bike, or operate heavy equipment. Your ability to react may be slower after a brain injury. ?? Consider talking with your teachers, coaches and employer about returning to school, sports, andwork gradually and changing your activities until you recover. ?? Take only those drugs that your caregiver has approved ?? If it is harder than usual to remember things, write them down. ?? Consult with family members or close friends when making important decisions. ?? Do not forget your basic needs such as eating well and getting enough rest. SEEK MEDICAL CARE IF: Although children can have the same symptoms of brain injury as adults, it is harder for young children to let others know how they are feeling. Call your child's caregiver if your child seems to be getting worse or if you notice any of the following: ?? Listlessness, tiring easily. ?? Irritability, crankiness. ?? Change in eating or sleeping patterns. ?? Change in the way they play. ?? Change in the way they perform or act at school. ?? Lack of interest in favorite toys. ?? Loss of new skills such as toilet training. ?? Loss of balance, unsteady walking. SEEK IMMEDIATE MEDICAL CARE IF: The child has received a blow or jolt to the head and you notice: ?? Headaches that get worse. ?? Weakness, numbness or decreased coordination. ?? Repeated vomiting. ?? Continuous crying that cannot be consoled. ?? Refusal to nurse or eat. ?? The child can not be awakened. ?? One pupil (the black part in the middle of the eye) is larger than the other. ?? Convulsions or seizures. ?? Slurred speech. ?? Confused, restless, or agitated behavior. FOR MORE INFORMATION Several groups help people with brain injury and their families. They provide information and put people in touch with local resources, such as support groups, rehabilitation services, and a variety of health acute care nurse practitioner. Among these groups, the Brain Injury Association (OSIEL, www.biausa.org)has a national office that gathers scientific and educational information and works on a national level to help people with brain injury. MAKE SURE YOU: ?? Understand these instructions. ?? Will watch your condition. ?? Will get help right away if you are not doing well or get worse. Information courtesy of the OSIEL, CDC & [facility]. OSIEL National Help Line: OSIEL Web site: www.biausa.org CDC Web site: www.cdc.gov/ncipc/tbi Document Released: 11/22/2007 Document Re-Released: 07/01/2009 ExitCare?? Patient Information ??2009 [employer] CTOR OF DANCE * Discharge Instructions* Document, Scanned - 09/08/2011 8:43 AM DIRECTOR OF DANCE CTOR OF DANCE documented in this encounter Medications at Time [...] as of this encounter ED Notes * Tawana Franco RN - 09/03/2011 4:46 PM CST Alert in room with mother. In no distress on discharge. CTOR OF DANCE * Karla Resendez RN - 09/03/2011 4:24 PM CST Patient has hematoma to occipital area of scalp, denies loss of consciousness, GCS 15 CTOR OF DANCE * Js Gao NP - 09/03/2011 4:20 PM CST Images from the original note were not included. EMERGENCY DEPARTMENT 09/04/[address] Marisol Roblero MD We had the pleasure of caring for your patient, Erick Triana in our emergency department on 09/04/2011. A note from the provider(s) who cared for your patient is attached. Should you wish to access any laboratory results, please call . Should you wish to access any radiology results, please call , option 3. In addition, you can access patient information 24 hours a day, from any computer, through [employer], the online version of our electronic medical record. If you would like to use this service, please call Cherise Mejias, Connectivity Coordinator, at . We appreciate the opportunity to care for your patients. If you would like additional information, please call the emergency department directly at . Sincerely, Js Gao NP Division of Emergency Medicine [facility], [place] [facility] [place] DESIGNATED EMERGENCY DEPARTMENT 09/03/2011 4:20 PM Erick Triana [id number] [facility] EMERGENCY DEPT History Chief Complaint Patient presents with ??? Injury Head Pt fell out of large truck and hit back of head on metal foot rail on truck. No LOC, no vomiting. Pt acting appropriate. + bump to back of head. Initally dizzy, but not anymore. + headache. HPI Comments: Erick comes in today after hitting his head on his mom's truck. No LOC at the time, no vomiting. Has been feeling fine other than NG - says ng is better with motrin. No medical problems, shots are up to date. Injury Head The history is provided by the parent and patient. The incident occurred 12 to 24 hours ago. There is an injury to the head. Past Medical History Diagnosis Date ??? Anatomic [...] Constitutional: Negative. HENT: Negative. Eyes: Negative. Respiratory: Negative. Cardiovascular: Negative. Gastrointestinal: Negative. Musculoskeletal: Negative. Skin: Negative. Neurological: Negative for dizziness. Headaches: now resolved. BP 113/71 Pulse 71 Temp 97.6 ??F Resp 16 Wt 72.3 kg (159 lb 6.3 oz) SpO2 98% Physical Exam Physical Exam Constitutional: He is active. HENT: Right Ear: Tympanic membrane normal. Left Ear: Tympanic membrane normal. Mouth/Throat: Mucous membranes are moist. Eyes: Conjunctivae and EOM are normal. Pupils are equal, round, and reactive to light. Neck: Normal range of motion. Cardiovascular: Normal rate and regular rhythm. Pulses are palpable. Pulmonary/Chest: Effort normal. There is normal air entry. No respiratory distress. Abdominal: Soft. He exhibits no distension. Musculoskeletal: Normal range of motion. He exhibits no tenderness. Neurological: He is alert. He has normal reflexes. No cranial nerve deficit. Coordination normal. Skin: Skin is warm and dry. Palpable bump to the back of his head, no break in the skin, sl tender to palpation Procedures Procedures EKG Interpretation Lab/SPO2 Interpretation Progress Notes ED Course Medical Decision Making Very well appearing here with normal neuro exam Clinical Impression Encounter Diagnosis Name Primary? Head injury, unspecified call md or return to ER if there are any behavioral changes CTOR OF DANCE documented in this encounter Miscellaneous Notes * Miscellaneous Scans - Document, Scanned - 09/22/2011 6:18 PM CST CTOR OF DANCE * Miscellaneous Scans - Document, Scanned - 09/22/2011 11:48 AM CST CTOR OF DANCE documented in this encounter Plan of Treatment Not on file documented as of this encounter Visit Diagnoses Diagnosis Head injury, unspecified documented in this encounter Administered Medications Inactive Administered Medications - up to 3 most recent administrations Medication Order MAR Action Action Date Dose Rate Site ibuprofen (MOTRIN) tablet 600 mg 600 mg, Oral, ONCE, 1 dose, On Karen 09/03/11 at 1600, Maximum dose 600 mg $ Given 09/03/2011 3:45 PM DIRECTOR OF DANCE 600 mg documented in this encounter Active and Recently Administered Medications Times are shown in DIRECTOR OF DANCE. Scheduled Medication Order 09/01/2011 09/02/2011 09/03/2011 ibuprofen (MOTRIN) tablet 600 mg (COMPLETED) 600 mg, Oral, ONCE, 1 dose, On Karen 09/03/11 at 1600, Maximum dose 600 mg 1545 ($ Given - Prov ider: Tamara Elena) documented in this encounter Care Teams Livestock Sales Representative Relationship Specialty Start Date End Date Marisol Roblero MD [address] [place] [phone] PCP - General 09/03/11 05/15/13 documented as of this encounter
--- OUTSIDE RECORDS SUMMARY | 2024-08-06 19:03 | XMS_ITS | Encounter Summary ---
Author Organization [facility] Address [address] [facility] [place] [address] Care Team Providers Care Drier Transfer Car Operator Name Role Phone Godfrey Curry MD Primary Care Provider Abram Gaspar MD Unavailable Unavailabl e Reason for Visit * Reason Comments Sore Throat started Wednesday night /Wednesday morning, bumps to back of throat and around mouth Fever last night 12/02/14 tm ax 100F, tylenol last dose given 0900 12/03/14 Encounter Details Date Type Department Care Team (Latest Contact Info) Description 12/03/2014 2:40 PM CDT - 12/03/2014 11:59 PM CDT Hospital Encounter [facility] Pediatrics - [facility] [address] [place] [phone] Godfrey Curry MD [address] [place] [phone] Discharge Disposition: Home or Self Care Social [...] Sign Reading Time Taken Comments Blood Pressure 110/78 12/03/2014 3:13 PM CDT Pulse - - Temperature 36.8 ??C (98.2 ??F) 12/03/2014 3:13 PM CD T Respiratory Rate - - Oxygen Saturation - - Inhaled Oxygen Concentration - - Weight 98.1 kg (216 lb 3.2 oz) 12/03/2014 3:13 P M CDT Height - - Body Mass Index - - documented in this encounter Discharge Instructions * Patient Instructions* Cindy Goodman MD - 12/03/2014 3:40 PM CDT Drink lots of water, Tylenol for pain or fever, and lozenges for pain. documented in this encounter Medications at Time [...] Sore Throat. 18 Lozenge 0 12/03/2014 08/23/2015 ibuprofen (MOTRIN) 400 MG tablet Take 400 mg by mouth every 6 hours as needed for Pain. 02/04/2015 documented as of this encounter Progress Notes * Cindy Goodman MD - 12/03/2014 4:38 PM CDT Images from the original note were not included. CHIEF COMPLAINT Chief Complaint Patient presents with ??? Sore Throat started Wednesday night/Wednesday morning, bumps to back of throat and around mouth ??? Fever last night 12/02/14 tmax 100F, tylenol last dose given 0900 12/03/14 HPI Erick Triana is a 14 y.o. male with 1 day history of sore throat. Sputum that is mancia/yellow, hard to swallow and hurts with swallowing,+ cough, + runny nose, + fever up to 100F, sore on back of tongue, and some sores on lips. No rash, no vomiting or diarrhea, no conjunctival injection. ROS History obtained from: father and patient General:negative Ophthalmic: negative for - excessive tearing, itchy eyes ENT: negative for - frequent ear infections, headaches; positive - sore throat, rhinorrhea, sneezing Allergy: positive for - nasal congestion, post-nasal drip, seasonal allergies - takes Jill Respiratory: no cough, shortness of breath, or wheezing Dermatological: negative PMH/FmHx/SocHx History reviewed and appropriate changes made. PE BP 110/78 Temp(Src) 98.2 ??F (Oral) Wt 98.068 kg (216 lb 3.2 oz) General: overweight, acanthosis on posterior neck, otherwise talkative and pleasant Eyes: no conjunctival injection, crusting or discharge Ears: canals clear, tympanic membranes normal, hearing intact to voice Nose: Boggy mucosa, minimal clear drainage Oropharynx: NO posterior pharyngeal erythema, tonsils not present, + 2x aphthous ulcers, cobblestoning present Neck: range of motion is intact, no masses, thyroid not enlarged, no adenopathy, supple Lungs: breath sounds symmetrical without rales or wheezes Labs/Other Information My review of labs, imaging, notes and other tests shows no new significant findings. ASSESSMENT AND PLAN Allergic pharyngitis Likely is due to worsening in allergies. No posterior erythema, however, cobblestoning present. Sores (?) on tongue are hypertrophic taste buds, non- pathologic. With fever, possibly this is viral pharyngitis, however, based on exam, I still believe this is allergy driven. Plan: Chloriseptic lozenges as needed Encourage fluids and Tylenol as needed Return if symptoms worsen or fail to improve. Cindy Goodman MD * Fabio Torrez MD - 12/03/2014 3:34 PM CDT I reviewed history and physical exam with Resident at the time of the visit and agree with their documentation and plan with additional information below. Please see the resident note for further details. Chief Complaint Patient presents with ??? Sore Throat started Wednesday night/Wednesday morning, bumps to back of throat and around mouth ??? Fever last night 12/02/14 tmax 100F, tylenol last dose given 0900 12/03/14 HPI: 1 day of runny nose, cough (productive of mancia sputum), no sick contacts. Temp of 100 last night. Tylenol with minimal effect. Current outpatient prescriptions:ibuprofen (MOTRIN) 400 MG tablet, Take 400 mg by mouth every 6 hours as needed for Pain., Disp: , Rfl: ; albuterol HFA (PROVENTIL;VENTOLIN;PROAIR) 108 (90 BASE) MCG/ACT inhaler, 2 puffs every 4 hours while awake for the next 48 hours then as needed for cough., Disp:1 Inhaler, Rfl: 5 acetaminophen (TYLENOL) 500 MG tablet, Take 1 Tab by mouth every 4 hours as needed for Fever or Pain. Maximum allowable Acetaminophen amount = 4 Grams (4000 mg) / 24 hours., Disp: 20 Tab, Rfl: 0 has a past medical history of Anatomic airway obstruction; Seasonal allergies; KEYANA (obstructive sleep apnea); Thyroid activity decreased; Allergic rhinitis (05/19/2011); and Torsion of testicle. He also has no past medical history of Asthma, Bronchopulmonary dysplasia, History of cancer, Cleft lip,Cleft palate, Diabetes mellitus, Otitis media, Hearing loss, Heart disease, unspecified, or Tonsillitis. No history on file. family history includes Anesthesia Reaction in his maternal grandmother; Depression in an other family member; Learning Disability in his mother. There is no history of Bleeding Disorders or Childhood Hearing Disorder. BP 110/78 Temp(Src) 98.2 ??F (Oral) Wt 98.068 kg (216 lb 3.2 oz) A/P: Erick Triana is a 14 y.o. male who presents for sore throat. Postnasal drip and cobblestoning. Likely viral pharyngitis. Otherwise benign exam. Benzocaine lozenges prescribed. Symptomatic treatment recommended. Fabio Torrez MD [phone] documented in this encounter Plan of Treatment Not on file documented as of this encounter Visit Diagnoses * Assessment & Plan Note - Cindy Goodman MD - 12/03/2014 4:43 PM CDT Associated Problem(s): Allergic pharyngitis Likely is due to worsening in allergies. No posterior erythema, however, cobblestoning present. Sores (?) on tongue are hypertrophic taste buds, non- pathologic. With fever, possibly this is viral pharyngitis, however, based on exam, I still believe this is allergy driven. Plan: Chloriseptic lozenges as needed Encourage fluids and Tylenol as needed documented in this encounter Care Teams Drier Transfer Car Operator Relationship Specialty Start Date End Date Godfrey Curry MD [facility] [place] [phone] PCP - General Pediatrics 05/01/14 Abram Gaspar MD [facility] [place] [address] Student Resident 11/05/14 11/26/15 documented as of this encounter
--- OUTSIDE RECORDS SUMMARY | 2024-08-06 19:03 | XMS_ITS | Encounter Summary ---
Author Organization [facility] Address [address] [place] [address] Care Team Providers Care Pigment Making Supervisor Name Role Phone Sera Leonard DO Unavailable [phone] Godfrey Curry MD Primary Care Provider [phone] Reason for Referral * - Closed Specialty Diagnoses / Procedures Referred By Nelli pinto Referred To Contact Diagnoses Vision disturbance Ivet Hinton DO [address] [place] [address] Referral ID Status Reason Start Date Expiration Date V isits Requested Visits Authorized [id number] Closed Specialty Services Required 11/02/2013 05/01/2014 1 1 LAB OPERATOR Reason for Visit * Reason Comments Failed Vision Screening C/O Failed visio n screening at school, thinks he has had difficulty with distance for a few months. No other eye problems. * - Closed Specialty Diagnoses / Procedures Referred By Nelli pinto Referred To Contact Diagnoses Vision disturbance Ivet Hinton DO [address] [place] [address] Referral ID Status Reason Start Date Expiration Date V isits Requested Visits Authorized [id number] Closed Specialty Services Required 11/02/2013 05/01/2014 1 1 Encounter Details Date Type Department Care Team (Latest Contact Info) Description 09/10/2014 2:36 PM MINILAB OPERATOR - 09/10/2014 11:59 PM MINILAB OPERATOR Hospital Encounter [facility] Pediatrics - Ophthalmology [address] [place] [address] Ivet Hinton, DO [address] [place] [address] Harpreet Sy MD [address] [place], [place] [id number] Discharge Disposition: Home or Self Care Social [...] fluticasone propionate (FLONASE) 50 MCG/ACT nasal spray [place] 2 Sprays into each nostril once daily. 1 Bottle 0 04/17/2014 10/30/2014 loratadine (CLARITIN) 10 MG tabletIndications:Al lergic rhinitis Take 1 Tab by mouth once daily. 30 Tab 3 05/07/2014 10/30/2014 documented as of this encounter Progress Notes * Harpreet Sy MD - 09/10/2014 3:02 PM CST Erick Triana is a 14 y.o. male who is being seen at the request of Dr. Curry for Chief Complaint Patient presents with ??? Failed Vision Screening C/O Failed vision screening at school, thinks he has had difficulty with distance for a few months.No other eye problems. Patient accompanied by mother. Allergies: has No Known Allergies. EXAM: Base Eye Exam Visual Acuity (Snellen - Linear) Right Left Dist sc 20/30 -2 20/20 -2 Near sc J1+ J1+ Tonometry (Palpation, 3:00 PM) Right Left Pressure s s Pupils Pupils Right PERRL Left PERRL Visual Kramer (Counting fingers) Right Left Result Full Full Extraocular Movement Right Left Result Full Full Dilation Both eyes: C1%, PE2.5% @ 3:15/3:20 PM Additional Tests Stereo Fly: + Animals: 10/02 Circles: 04/10 Strabismus Exam Method: Alternate cover Distance Near Near +3.00DS Near Bifocals Correction: sc Ortho X(T)' flick Slit Lamp and Fundus Exam External Exam Right Left External Normal Normal Pen Light Exam Right Left Lids/Lashes Normal Normal Conjunctiva/Sclera White and quiet White and quiet Cornea Clear Clear Anterior Chamber Deep and quiet Deep and quiet Iris Round and reactive Round and reactive Lens Clear Clear Fundus Exam Right Left Disc Normal Normal C/D Ratio 0.3 0.3 Macula Normal Normal Vessels Normal Normal Edited by: Louis Danielson MD Refraction Cycloplegic Refraction Sphere Cylinder [place] Right -1.00 +0.50 30 Left -0.50 sph Final Rx Sphere Cylinder [place] Right -1.00 +0.50 30 Left -0.50 sph IMPRESSION: Slight decrease visual acuity OD Great alignment / decent stereo RECOMMENDATION: CRx / DFE. Glasses prescription given. FU yearly as needed Louis Danielson MD Patient seen and examined with resident/seed corn production manager. I confirm the history,exam, assessment and plan. In addition, I note History: Says things get blurry OU, worse OD Exam: Mild myopia, good binocularity Assessment/Plan: Rx for school/driving Conside CL's RTC 1 year Please see resident's/seed corn production manager's note for further details Harpreet Sy M.D. 09/10/2014 4:10 PM LAB OPERATOR documented in this encounter Plan of Treatment Scheduled Referrals Name Type Priority Associated Diagnoses Orde r Schedule Referral to Optometry Outpatient Referral Routine Vision disturbance 1 Occurrences starting 09/10/2014 until 09/10/2014 documented as of this encounter Visit Diagnoses Diagnosis Vision disturbance Unspecified visual disturbance documented in this encounter Care Teams Pigment Making Supervisor Relationship Specialty Start Date End Date Godfrey Curry MD [address] [place] [address] PCP - General Pediatrics 05/01/14 Sera Leonard DO Resident Pediatrics 09/27/13 11/04/14 documented as of this encounter
--- OUTSIDE RECORDS SUMMARY | 2024-08-06 19:03 | XMS_ITS | Encounter Summary ---
Author Organization [facility] Address [address] [place] [address] Care Team Providers Care Checker Bakery Products Name Role Phone Sera Leonard DO Unavailable [phone] Godfrey Dorman MD Primary Care Provider Reason for Visit * Reason Comments Evaluation left rayne Encounter Details Date Type Department Care Team (Latest Contact Info) Description 10/30/2014 1:03 PM CDT - 10/30/2014 11:59 PM CDT Hospital Encounter [facility] Pediatrics - Orthopedics [facility] [facility] [place] [address] Marilu Cosby MD Discharge Disposition: Home or Self Care Social [...] Pressure - - Pulse - - Temperature 36 ??C (96.8 ??F) 10/30/2014 1:05 PM CDT Respiratory Rate - - Oxygen Saturation - - Inhaled Oxygen Concentration - - Weight 99.5 kg (219 lb 4 oz) 10/30/2014 1:05 PM CDT Height 174.1 cm (5' 8.54 ) 10/30/2014 1:05 PM CD T Body Mass Index 32.81 10/30/2014 1:05 PM CDT Body Mass Index Percentile 98.66% 10/30/2014 1:0 5 PM CDT Growth Chart: [facility] (Boys, 2-2 0 Years) documented in this encounter Discharge Instructions * Patient Instructions* Akbar Oliver PA-C - 10/30/2014 1:24 PM CDT ORTHOPAEDIC CLINIC DISCHARGE INSTRUCTIONS SHEET Follow Up: As needed only Keep fingers marisol taped for 2 weeks. Work on range of motion with left small finger. May participate in PE, sports, and all activities as tolerated. Limit use of left hand for 3 weeks. School excuse: 10/30/2014 Tylenol and Ibuprofen (over the counter medication) may be used per instructions. If you have any questions or concerns in the interim, or if you need to schedule surgery for your child, you may contact our orthopedic office at . If you need to make a clinic appointment, please call . documented in this encounter Medications at Time [...] for cough. 1 Inhaler 5 04/17/2014 12/04/2015 ibuprofen (MOTRIN) 400 MG tablet Take 400 mg by mouth every 6 hours as needed for Pain. 02/04/2015 documented as of this encounter Progress Notes * Akbar Oliver PA-C - 10/30/2014 1:30 PM CDT PEDIATRIC ORTHOPAEDIC CLINIC NOTE NAME: Erick Triana DATE OF SERVICE: 10/30/2014 DATE: 2000 PCP: Godfrey Dorman HISTORY: Erick Triana is a 14 y.o. 3 m.o. male who presents 3 day(s) status post a left small finger injury. He was wrestling with his friend when he felt a pop in the finger. Erick Triana was xrayed at [facility] and presents for further evaluation. The patient rates his pain as a 0out of 10. The patient denies new onset of numbness in his upper extremities. PAST MEDICAL HISTORY: Past Medical History Diagnosis Date ??? Anatomic airway obstruction ??? Seasonal allergies ??? KEYANA (obstructive sleep apnea) post T&A 2006--continued snoring sleep study 09/22/10 AHI 1.5 O2 desat 91% ??? Thyroid activity decreased ??? Allergic rhinitis 05/19/2011 ??? Torsion of testicle R testicle PAST SURGICAL HISTORY: Past Surgical History Procedure Laterality Date ??? Tonsillectomy and adenoidectomy 04/01/07 ??? Adenoidectomy ??? Tonsillectomy MEDICATIONS: Current outpatient prescriptions:ibuprofen (MOTRIN) 400 MG tablet, Take 400 mg by mouth every 6 hours as needed for Pain., Disp: , Rfl: ; albuterol HFA (PROVENTIL;VENTOLIN;PROAIR) 108 (90 BASE) MCG/ACT inhaler, 2 puffs every 4 hours while awake for the next 48 hours then as needed for cough., Disp: 1 Inhaler, Rfl: 5 acetaminophen (TYLENOL) 500 MG tablet, Take 1 Tab by mouth every 4 hours as needed for Fever or Pain. Maximum allowable Acetaminophen amount = 4 Grams (4000 mg) / 24 hours., Disp: 20 Tab, Rfl: 0 ALLERGIES: Allergies as of 10/30/2014 ??? (No Known Allergies) IMMUNIZATIONS: Immunization status: stated as current, but no records available. SOCIAL HISTORY: Patient lives with his grandparents. he does attend school. FAMILY HISTORY: Negative for any genetic conditions affecting children. ROS: A 12 point review of systems was obtained today and is positive for what is stated above. PHYSICAL EXAMINATION: Temp(Src) 96.8 ??F Wt 219 lb 4 oz (99.451 kg) BMI 32.81 kg/m2 General appearance: alert, cooperative, no distress. He has good head control. No rashes or abnormal dyspigmentation Extremities: The uninjured right upper extremity was examined and demonstrated normal skin, normal range of motion and alignment of all joint, normal motor, sensory and vascular examination, and was without pain.It was used for comparison when examining the injured left upper extremity. General appearance: no acute distress The examination was performed out of tape Skin: bruising at small finger PIP joint Swelling: minimal at small finger PIP joint Tenderness: mild, located at small finger PIP joint, nontender at small finger distal phalanx. Deformity: No ROM: limited by pain at small finger Strength: limited by pain Gait: normal Neurological Exam: normal Vascular Exam: normal RADIOGRAPHS: AP, lateral, & oblique xrays of the left small finger were taken and assessed today. -Radiographic Assessment: They show a linear lucency at the distal phalanx, however that does not correlate clinically with his tenderness. The remainder of the xray is normal. ASSESSMENT: 1. Injury of fifth finger, left, initial encounter PLAN: We recommend that he keep the 4th/5th fingers marisol taped for 2 more weeks. The patient will limit the use of the left hand in PE/sports for 3 more weeks. After that, he may then resume all activities as tolerated. If he has any difficulties returning to activities, or any pain/problems in 3-4 weeks, we recommend they return to clinic. If he is doing well at that point, they do not need to follow up for this injury. The family was understanding of this plan and will follow up PRN. * Magaly Stovall RN - 10/30/2014 1:07 PM CDT Patient injured his left pinkie while wrestling with his friend. This happened on Wednesday and he heard a pop. Last night patient went to [facility] for xrays. He is here for further evaluation and treatment. documented in this encounter Plan of Treatment Not on file documented as of this encounter Visit Diagnoses Diagnosis Injury of fifth finger, left, initial encounter- Primary Closed fracture of unspecified phalanx or phalanges of hand documented in this encounter Care Teams Checker Bakery Products Relationship Specialty Start Date End Date Labarge, Godfrey Zapata MD [address] [place] [address] PCP - General Pediatrics 05/01/14 Sera Leonard DO Resident Pediatrics 09/27/13 11/04/14 documented as of this encounter
--- OUTSIDE RECORDS SUMMARY | 2024-08-06 19:03 | XMS_ITS | Encounter Summary ---
Author Organization [facility] Address [address] [facility] [place] [address] Care Team Providers Care Retail Aide Name Role Phone Godfrey Curry MD Primary Care Provider [phone] Dipika Reddy MD Unavailable Reason for Visit * Reason Onset Date Comments Scheduling 11/12/2017 Encounter Details Date Type Department Care Team (Late st Contact Info) Description 11/12/2017 Telephone [facility] Pediatrics - [address] [address] Jose Rafael Thompson MD [address] [place] [id number] Scheduling Social History Tobacco Use Types Packs/Day [...] encounter Miscellaneous Notes * Telephone Encounter - Alysia Hopkins - 11/12/2017 9:44 AM CDT Spoke with Elena in clinic, outpatient Liver Bx scheduled for 01/06/18 at 10:[address] Thompson. documented in this encounter Plan of Treatment Not on file documented as of this encounter Visit Diagnoses Not on filedocumented in this encounter Care Teams Retail Aide Relationship Specialty Start Date End Date Godfrey Curry MD [address] [place] [phone] PCP - General Pediatrics 05/01/14 Dipika Reddy MD [address] [place] [phone] Resident Student Resident 11/27/15 documented as of this encounter
--- OUTSIDE RECORDS SUMMARY | 2024-08-06 19:04 | XMS_ITS | Encounter Summary ---
Author Organization [facility] Address [facility] [facility] [place], [place] [id number] [place], [place] [id number] Care Team Providers Care Trading Specialist Name Role Phone None, Provider Primary Care Provider Unavaila ble Encounter Details Date Type Department Care Team (Latest Contact Info) Description 09/19/2019 Travel Social History Tobacco Use Types Packs/Day Years Used Date Smoking Tobacco: Never Smokeless Tobacco: Never Alcohol Use Standard Drinks/Week Comments Not Currently 0 (1 standard drink = 0.6 oz pur e alcohol) Sex and Gender Information Value Date Recorded Sex Assigned at Not on file Legal Sex Male 8:11 PM CDT Gender Identity Not on file Sexual Orientation Not on file documented as of this encounter Plan of Treatment Not on file documented as of this encounter Visit Diagnoses Not on filedocumented in this encounter Care Teams Trading Specialist Relationship Specialty Start Date End Date None, Provider, PCP - General 09/19/19 documented as of this encounter
--- OUTSIDE RECORDS SUMMARY | 2024-08-06 19:04 | XMS_ITS | Encounter Summary ---
Author Organization [facility] Address [facility], [id number] [facility]. [place] [id number] [place], [place] [id number] Care Team Providers Care Business Analyst Manager Name Role Phone None, Provider Primary Care Provider Unavaila ble Encounter Details Date Type Department Care Team (Latest Contact Info) Description 07/28/2024 Travel Social History Tobacco Use Types Packs/Day [...] on filedocumented in this encounter Care Teams Business Analyst Manager Relationship Specialty Start Date End Date None, Provider, PCP - General 09/19/19 documented as of this encounter
--- OUTSIDE RECORDS SUMMARY | 2024-08-06 19:04 | XMS_ITS | Encounter Summary ---
Author Organization [facility] [place] Address [facility]. [place], [place] [id number] [place] [id number] Care Team Providers Care Geospatial Image Analyst Name Role Phone None, Provider Primary Care Provider Unavaila ble Reason for Referral * Imaging (Urgent) - Closed Specialty Diagnoses / Procedures Referred By Nelli t Referred To Contact RADIOLOGY Procedures CT ABD+PEL WWO CON Lemuel Angulo MD [address] [address] Phone: tel: fax: Referral ID Status Reason Start Date Expiration Date Visits Re quested Visits Authorized [id number] Closed 09/20/2019 10/18/2020 1 1 [facility] Reason for Visit * Reason Comments Urinary Symptoms Constipation Encounter Details Date Type Department Care Team (Late st Contact Info) Description 09/19/2019 10:33 PM [facility] - 09/20/2019 3:09 AM [facility] Emergency [facility] [place] [address] Lemuel Angulo MD [address] [id number] Urinary Symptoms; Constipation Discharge Disposition: Home or Self Care (Routine Discharge) Social History Tobacco Use Types Packs/Day Years [...] Sign Reading Time Taken Comments Blood Pressure 135/84 09/20/2019 12:36 AM [facility] Pulse 76 09/20/2019 12:36 AM [facility] Temperature 36.6 ??C (97.8 ??F) 09/19/2019 1 0:02 PM [facility] Respiratory Rate 18 09/20/2019 12:3 6 AM [facility] Oxygen Saturation 97% 09/20/2019 12: 36 AM [facility] Inhaled Oxygen Concentration - - Weight 143.8 kg (317 lb 0.3 oz) 020 10:08 PM [facility] Height 182.9 cm (6') 09/19/2019 10:02 PM [facility] Body Mass Index 43 09/19/2019 10:02 PM [facility] documented in this encounter Discharge Instructions * Discharge Instructions* Lemuel Angulo MD - 09/20/2019 2:57 AM [facility] Our practice is committed to providing you the very best in healthcare. We want to hear from you! Please fill out the survey you get from us. Your feedback is anonymous and helps us improve the patient experience for you and others in the community we serve. [employer] * Attachments The following attachments cannot be sent through Care Everywhere. * Constipation Discharge Instructions, Adult (Maldivian) * Blood in the Urine (Hematuria) in Adults (Maldivian) documented in this encounter Medications at Time of Discharge docusate sodium 100 MG capsule Take 1 capsule (100 mg total) by mouth 2 (two) times daily for 10 days. 20 capsule 09/20/2019 09/30/2019 documented as of this encounter ED Notes * Lemuel Angulo MD - 09/20/2019 12:39 AM CST Emergency Department Note Chief Complaint Chief Complaint Patient presents with ??? Urinary Symptoms ??? 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 Patient reports hematuria and dysuria that began today along with lightheadedness an diaphoresis prior to coming to the ED. He states his last bowel movement was ~4 days ago. Patient had a liver biopsy complete a yearago due to elevated liver enzymes but results are unknown as they state the office never called them with the results. He denies any testicular pain. He denies any back pain or abdominal pain. Patient reports some mild swelling to left testicle. He states that this is been there for 3 years and has not changed. He denies any pain in the testicles. Medical History ALLERGIES: No Known Allergies MEDICATIONS: Prior to Admission medications Medication Sig Start Date End Date Taking? Authorizing Provider docusate sodium 100 MG capsule Take 1 capsule (100 mg total) by mouth 2 (two) times daily for 10 days. 09/20/19 09/30/19 Yes Lemuel Angulo MD PAST MEDICAL HISTORY: History reviewed. No pertinent past medical history. PAST SURGICAL HISTORY: Past Surgical History: Procedure Laterality Date ??? BIOPSY liver FAMILY HISTORY: No family history on file. SOCIAL HISTORY: Social History Tobacco Use ??? Smoking status: Never Smoker ??? Smokeless tobacco: Never Used Substance Use Topics ??? Alcohol use: Not Currently ??? Drug use: Not Currently Review of Systems Review of Systems Constitutional: Denies fever Eyes: Denies visual changes HENT: Denies sore throat or ear pain. Respiratory: Denies shortness of breath. Cardiovascular: Denies chest pain GI: Denies abdominal pain Musculoskeletal: Denies back pain Skin: Denies rash. Neurologic: Denies headache Endocrine: Denies hypoglycemia Lymphatic: Denies swollen glands. Psychiatric: Denies depression, SI See HPI for further details. All systems negative except as marked. Physical Exam Filed Vitals: 09/19/19 2202 09/19/19 2208 09/20/19 0036 BP: (!) 159/100 135/84 Pulse: 104 76 Resp: 18 Temp: 97.8 ??F (36.6 ??C) TempSrc: Oral SpO2: 99% 97% Weight: (!) 143.8 kg (317 lb 0.3 oz) Height: 6' (1.829 m) Physical Exam Constitutional: Well developed, obese HEENT: Normocephalic, Atraumatic, Bilateral external ears normal, EOMI, Conjunctiva normal, No discharge.Oropharynx moist, Nose normal. Respiratory: Normal breath sounds, No respiratory distress. Cardiovascular: Normal heart rate, Normal rhythm GI: Soft, No tenderness, No masses, No pulsatile masses. Testicular exam- nontender testicles. Area of swelling appears to be the epididymis Neck: Normal range of motion, No tenderness, Supple, No stridor. Back: No tenderness Extremities: Intact distal pulses, No edema, No tenderness, Good range of motion in all major joints. No tenderness Skin: Warm, Dry, No erythema, No rash. Neurologic: Alert & oriented x 3, Normal motor function, Normal sensory function, No focal deficits noted. Psychiatric: Affect normal, Judgment normal, Mood normal. Medical decision making: [facility] Diagnosis management comments: 19-year-old male presents w/ urinary symptoms and constipation Rhythm strip interpreted by me: Normal sinus rhythm, rate of 76. No arrhythmias. Differential: UTI, cystitis, kidney stone, other Plan: - Labs -CT abd + pelv - Meds Treat with fluids Diagnostic Studies / Procedures ELECTROCARDIOGRAMS: No results found for this visit on 09/19/19. PULSE OX: SpO2: 99 % Interpretation: Room air, no hypoxia LABORATORY STUDIES: Results for orders placed or performed during the hospital encounter of 09/19/19 CBC W/DIFF AUTOMATED Result Value Ref Range WBC 11.2 4.5 - 13.0 x10'3/uL RBC 5.78 4.70 - 6.10 x10'6/uL HGB 15.8 14.0 - 18.0 G/DL HCT 45.4 43.0 - 54.0 % MCV 78.5 (L) 80.0 - 94.0 FL MCH 27.3 27.0 - 31.0 PG MCHC 34.8 32.0 - 36.0 G/DL RDW 13.2 11.5 - 14.5 % PLT 368 130 - 400 x10'3/uL MPV 10.1 9.3 - 12.2 FL DIFFERENTIAL TYPE AUTOMATED DIFFERENTIAL NEUTROPHILS 62.4 % LYMPHOCYTES 25.6 % MONOCYTES 8.8 % EOSINOPHILS 2.0 % BASOPHILS 0.5 % IMMATURE GRANS 0.7 % ABS. NEUTROPHILS TOTAL 6.98 1.80 - 8.00 x10'3/uL ABS. LYMPHOCYTES 2.87 1.20 - 5.20 x10'3/uL ABS. MONOCYTES 0.99 (H) 0.30 - 0.82 x10'3/uL ABS. EOSINOPHILS 0.22 0.04 - 0.54 x10'3/uL ABS. BASOPHILS 0.06 0.01 - 0.08 x10'3/uL ABS. IMMATURE GRANULOCYTES 0.08 0.00 - 0.49 x10'3/uL COMPREHENSIVE METABOLIC PANEL Result Value Ref Range GLUCOSE 113 (H) 70 - 99 MG/DL BUN 14 7 - 18 MG/DL CREATININE 0.92 0.7 - 1.3 MG/DL SODIUM 139 136 - 145 MMOL/L POTASSIUM 3.7 3.5 - 5.1 MMOL/L CHLORIDE 106 100 - 108 MMOL/L CO2 27.4 21 - 32 MMOL/L CALCIUM 10.1 8.5 - 10.1 MG/DL TOTAL BILIRUBIN 0.6 0.2 - 1.1 MG/DL TOTAL PROTEIN 8.2 6.4 - 8.2 G/DL ALBUMIN 4.7 3.4 - 5.0 G/DL AST 217 (H) 15 - 37 U/L ALT 567 (H) 16 - 60 U/L ALK PHOS 74 50 - 136 U/L ANION GAP 5.6 5 - 15 MMOL/L BUN CREATININE RATIO 15.2 6 - 26 A/G RATIO 1.3 1.0 - 2.0 RATIO eGFR Non-Afr. Amer. >90 >90 ML/MIN/1.73 M2 eGFR Afr. Amer. >90 >90 ML/MIN/1.73 M2 URINALYSIS Result Value Ref Range Specimen Type URINE CLEAN CATCH COLOR YELLOW TRANSPARENCY CLEAR Specific [place] (U) 1.025 1.001 - 1.030 U PH 5.0 5.0 - 9.0 LEUKOCYTE ESTERASE NEGATIVE NEGATIVE NITRITES NEGATIVE NEGATIVE PROTEIN, URINE NEGATIVE <30 MG/DL URINE GLUCOSE NEGATIVE NEGATIVE MG/DL U KETONES TRACE (A) NEGATIVE MG/DL UROBILINOGEN 2.0 (A) NEGATIVE MG/DL Urine Bilirubin NEGATIVE NEGATIVE MG/DL BLOOD NEGATIVE NEGATIVE CULTURE & SENSITIVITY INDICATED? CULTURE IS NOT INDICATED IMAGING STUDIES Xr Abd Ap+uprt Or Decub Result Date: 09/19/2019 IMPRESSION: Nonobstructive bowel gas pattern. Moderate stool burden. Ct Abd+pel Wwo Con Result Date: 09/20/2019 =====IMPRESSION:===== Normal CT urogram. Course Reviewed care everywhere. Patient had elevated liver enzymes in the past. His biopsies showed fatty liver. Discussed this with the patient. Recommended patient follow-up with GI as an outpatient. Regarding constipation will start patient on stool softeners. Urine analysis does not show any red blood cells or blood; CT without evidence of stone or abnormalities of the kidneys. Will hold on antibiotics at this time. Recommended patient follow-up with primary care physician. I discussed with the patient the workup as well as plan of care. I discussed medications and well as other therapies needed. I discussed with the patient follow-up instructions as well as return precautions. The patient agrees with the plan of care and is stable for discharge at this time. Medications iopamidol (ISOVUE-370) 76 % injection 100 mL (100 mLs Intravenous Given 09/20/19 014) Clinical Impression Testicular swelling, left (Primary) Constipation Hematuria Elevated LFTs Current Discharge Medication List START taking these medications Details docusate sodium 100 MG capsule Take 1 capsule (100 mg total) by mouth 2 (two) times daily for 10 days. Qty: 20 capsule, Refills: 0 Class: Print Disposition: Discharge Follow-Up: Leny Macias DO [address] [facility] [address] [facility] [address] Call in 1 day for pcp follow-up Nathan Shelley MD [address] [facility] [address] [facility] [address] Call in 1 day for GI follow-up IMary Ellen, acting as a scribe, am personally taking down the notes in the presence of Dr. Lemuel Angulo,*. Take no action on this note until reviewed and authenticated by the physician. Lemuel Angulo MD 09/20/19 0308 [employer] * Radha Gan RN - 09/19/2019 10:03 PM CST Patient arrived to er via triage with c/o painful urination and blood in urine starting today. Alsostates constipation, last normal BM 3-4 days ago. Denies pain now [facility] documented in this encounter Plan of Treatment Not on file documented as of this encounter Procedures Procedure Name Priority Date/Time Associated Diagnosis Comments CT ABD+PEL WWO CON STAT 09/20/2019 1: 47 AM [facility] HC URINALYSIS AUTO W/O MICRO STAT 09/19/2019 10:57 PM [facility] COMPREHENSIVE METABOLIC PANEL STAT 09/19/2019 10:57 PM [facility] CBC W/DIFF AUTOMATED STAT 09/19/2019 10:57 PM [facility] XR ABD AP+UPRT OR DECUB STAT 09/19/2019 10:38 PM [facility] documented in this encounter Results * CT ABD+PEL WWO CON (09/20/2019 1:47 AM [facility]) Anatomical Region Laterality Modality Abdomen Computed Tomogra phy 09/20/2019 1:52 AM [facility] Impressions 09/20/2019 1:58 AM [facility] =====IMPRESSION:===== Normal CT urogram. Narrative 09/20/2019 1:58 AM [facility] EXAMINATION: CT Abdomen and pelvis with and without contrast EXAM DATE/TIME: 09/20/2019 1:39 AM REASON FOR EXAM: Hematuria, painful urination. Denies pain now. COMPARISON: None TECHNIQUE: Contrast enhanced CT examination of the chest and abdomen was obtained before and after administration of 100 mL Isovue 370 contrast in the nephrographic and delayed phases. Reformatted images submitted in coronal and sagittal planes. A dose lowering technique was used for this procedure, which may include, but is not limited to, dose reduction technique, automated exposure control, iterative reconstruction, ALARA (As Low As Reasonably Achievable), or Image Gently techniques. FINDINGS: Precontrast imaging demonstrates no urinary tract stones. Nephrographic phase demonstrates normal and symmetric parenchymal enhancement without evidence of mass. Delayed phase demonstrates no hydronephrosis. Renal collecting system shows no filling defects. Ureters and partially opacified bladder are unremarkable. The liver, gallbladder, spleen, adrenal glands, pancreas, and prostate appear normal. Gastrointestinal tract shows no evidence of obstruction or other significant pathology. The appendix is normal. No abdominal or pelvic lymphadenopathy. Major vascular structures are of normal course and caliber. Ventral abdominal wall and inguinal regions appear normal. Visible lung bases are clear. Visible bones unremarkable. Procedure Note Patrick Zuleta MD - 09/20/2019 EXAMINATION: CT Abdomen and pelvis with and without contrast EXAM DATE/TIME: 09/20/2019 1:39 AM REASON FOR EXAM: Hematuria, painful urination. Denies pain now. COMPARISON: None TECHNIQUE: Contrast enhanced CT examination of the chest and abdomen was obtained before and after administration of 100 mL Isovue 370 contrastin the nephrographic and delayed phases. Reformatted images submitted in coronal and sagittal planes. A dose lowering technique was used for this procedure, which mayinclude, but is not limited to, dose reduction technique, automated exposure control, iterative reconstruction, ALARA (As Low As ReasonablyAchievable), or Image Gently techniques. FINDINGS: Precontrast imaging demonstrates no urinary tract stones. Nephrographic phase demonstrates normal and symmetric parenchymal enhancement without evidence of mass. Delayed phase demonstrates no hydronephrosis. Renal collecting systemshows no filling defects. Ureters and partially opacified bladder are unremarkable. The liver, gallbladder, spleen, adrenal glands, pancreas, and prostate appear normal. Gastrointestinal tract shows no evidence of obstructionor other significant pathology. The appendix is normal. No abdominal or pelvic lymphadenopathy. Major vascular structures are of normal course and caliber. Ventral abdominal wall and inguinal regions appear normal. Visible lung bases are clear. Visible bones unremarkable. =====IMPRESSION:===== Normal CT urogram. us Lemuel Angulo MD CT Final Result * (ABNORMAL) URINALYSIS (09/19/2019 10:57 PM [facility]) SPECIMEN TYPE URINE CLEAN CATCH 09/19/2019 10:51 PM [facility] COLOR (U) YELLOW 09/19/2019 11:26 PM [facility] TRANSPARENCY CLEAR 09/19/2019 11:26 PM [facility] SPECIFIC GRAVITY (U) 1.025 1.001 - 1.030 09/19/2019 11:26 PM [facility] U PH 5.0 5.0 - 9.0 09/19/2019 11:26 PM [facility] LEUKOCYTES (U) NEGATIVE NEGATIVE 09/19/2019 11:26 PM [facility] NITRITES NEGATIVE NEGATIVE 09/19/2019 11:26 PM [facility] PROTEIN (U) NEGATIVE <30 MG/DL 09/19/2019 11:26 PM [facility] URINE GLUCOSE NEGATIVE NEGATIVE MG/DL 09/19/2019 11:26 PM [facility] KETONES MG/DL (U) TRACE(A) NEGATIVE MG/DL 09/19/2019 11:26 PM [facility] UROBILINOGEN 2.0(A) NEGATIVE MG/DL 09/19/2019 11:26 PM [facility] BILIRUBIN (U) NEGATIVE NEGATIVE MG/DL 09/19/2019 11:26 PM [facility] BLOOD (U) NEGATIVE NEGATIVE 09/19/2019 11:26 PM [facility] CULTURE & SENSITIVITY INDICATED? CULTURE IS NOT INDICATED 09/19/2019 11:26 PM [facility] URINE SPECIMEN OBTAINED BY CLEAN CATCH PROCEDURE / Unknown 09/19/2019 10:57 PM [facility] Eloisa CLAIRE URINE ORDERABLES Final Resu lt [facility] [address] [place] [address], [place] [phone] * (ABNORMAL) COMPREHENSIVE METABOLIC PANEL (09/19/2019 10:57 PM [facility]) Pathologist [facility] GLUCOSE 113(H) 70 - 99 MG/DL 09/19/2019 11:50 PM [facility] BUN 14 7 - 18 MG/DL 09/19/2019 11:50 PM [facility] CREATININE S/P/B 0.92 0.7 - 1.3 MG/DL 09/19/2019 11:50 PM [facility] SODIUM S/P/B 139 136 - 145 MMOL/L 09/19/2019 11:50 PM [facility] POTASSIUM S/P/B 3.7 3.5 - 5.1 MMOL/L 09/19/2019 11:50 PM [facility] CHLORIDE S/P/B 106 100 - 108 MMOL/L 09/19/2019 11:50 PM [facility] CO2 27.4 21 - 32 MMOL/L 09/19/2019 11:50 PM [facility] CALCIUM S/P/B 10.1 8.5 - 10.1 MG/DL 09/19/2019 11:50 PM [facility] BILIRUBIN TOTAL S/P/B 0.6 0.2 - 1.1 MG/DL 09/19/2019 11:50 PM [facility] TOTAL PROTEIN S/P/B 8.2 6.4 - 8.2 G/DL 09/19/2019 11:50 PM [facility] ALBUMIN S/P/B 4.7 3.4 - 5.0 G/DL 09/19/2019 11:50 PM [facility] AST 217(H) 15 - 37 U/L 09/19/2019 11:50 PM [facility] ALT 567(H) 16 - 60 U/L 09/19/2019 11:50 PM [facility] ALKALINE PHOSPHATASE S/P/B 74 50 - 136 U/L 09/19/2019 11:50 PM [facility] ANION GAP 5.6 5 - 15 MMOL/L 09/19/2019 11:50 PM [facility] BUN CREATININE RATIO 15.2 6 - 26 09/19/2019 11:50 PM [facility] A/G RATIO 1.3 1.0 - 2.0 RATIO 09/19/2019 11:50 PM [facility] EGFR NON-AFR. AMER. >90 >90 ML/MIN/1.7 3 M2 09/19/2019 11:50 PM [facility] EGFR AFR. AMER. >90 >90 ML/MIN/1.7 3 M2 09/19/2019 11:50 PM [facility] Comment: NOTE: eGFR is not calculated for patients <18 years of age. This is an estimated GFR (CKD EPI) and should not be used for calculating drug doses. 09/19/2019 10:5 7 PM [facility] us Eloisa CLAIRE LABORATORY Final Resul t [facility] [address] [place] [address], [place] [phone] * (ABNORMAL) CBC W/DIFF AUTOMATED (09/19/2019 10:57 PM [facility]) [facility] WBC 11.2 4.5 - 13.0 x10'3/uL 09/19/2019 11:29 PM [facility] RBC 5.78 4.70 - 6.10 x10'6/uL 09/19/2019 11:29 PM [facility] HGB 15.8 14.0 - 18.0 G/DL 09/19/2019 11:29 PM [facility] HCT 45.4 43.0 - 54.0 % 09/19/2019 11:29 PM [facility] MCV 78.5(L) 80.0 - 94.0 FL 09/19/2019 11:29 PM [facility] MCH 27.3 27.0 - 31.0 PG 09/19/2019 11:29 PM [facility] MCHC 34.8 32.0 - 36.0 G/DL 09/19/2019 11:29 PM [facility] RDW 13.2 11.5 - 14.5 % 09/19/2019 11:29 PM [facility] PLT 368 130 - 400 x10'3/uL 09/19/2019 11:29 PM [facility] MPV 10.1 9.3 - 12.2 FL 09/19/2019 11:29 PM [facility] DIFFERENTIAL TYPE AUTOMATED DIFFERENTIAL 09/19/2019 11:29 PM [facility] NEUTROPHILS % 62.4 % 09/19/2019 11:29 PM [facility] LYMPHOCYTES % 25.6 % 09/19/2019 11:29 PM [facility] MONOCYTES % 8.8 % 09/19/2019 11:29 PM [facility] EOSINOPHILS 2.0 % 09/19/2019 11:29 PM [facility] BASOPHILS 0.5 % 09/19/2019 11:29 PM [facility] IMMATURE GRANS % 0.7 % 09/19/19 20 11:29 PM [facility] ABS. NEUTROPHILS TOTAL 6.98 1.80 - 8.00 x10'3/uL 09/19/2019 11:29 PM [facility] ABS. LYMPHOCYTES 2.87 1.20 - 5.20 x10'3/uL 09/19/2019 11:29 PM [facility] ABS. MONOCYTES 0.99(H) 0.30 - 0.82 x10'3/uL 09/19/2019 11:29 PM [facility] ABS. EOSINOPHILS 0.22 0.04 - 0.54 x10'3/uL 09/19/2019 11:29 PM [facility] ABS. BASOPHILS 0.06 0.01 - 0.08 x10'3/uL 09/19/2019 11:29 PM [facility] ABS. IMMATURE GRANULOCYTES 0.08 0.00 - 0.49 x10'3/uL 09/19/2019 11:29 PM [facility] 09/19/2019 10:5 7 PM [facility] Eloisa CLAIRE LABORATORY Final Resul t [facility] [address] [place] [address], [place] [phone] * XR ABD AP+UPRT OR DECUB (09/19/2019 10:38 PM [facility]) Anatomical Region Laterality Modality Abdomen Radiographic Christine ging 09/19/2019 10:5 6 PM [facility] Impressions 09/19/2019 10:56 PM [facility] IMPRESSION: Nonobstructive bowel gas pattern. Moderate stool burden. Narrative 09/19/2019 10:56 PM [facility] Examination: Abdomen obstruction series Date: ??09/19/2019 10:25 PM Clinical history: Diffuse abdominal pain, constipation Comparison: None Technique: 3 views of the abdomen to include supine, upright and/or left lateral decubitus demonstrated. Findings: Bowel gas pattern appears nonobstructive. Stool burden is moderate. No obstruction is seen. No free air identified. No abnormal radiopaque calcifications. Procedure Note Patrick Zuleta MD - 09/19/2019 Examination: Abdomen obstruction series Date: 09/19/2019 10:25 PM Clinical history: Diffuse abdominal pain, constipation Comparison: None Technique: 3 views of the abdomen to include supine, upright and/or left lateral decubitus demonstrated. Findings: Bowel gas pattern appears nonobstructive. Stool burden is moderate. No obstruction is seen. No free air identified. No abnormal radiopaque calcifications. IMPRESSION: Nonobstructive bowel gas pattern. Moderate stool burden. Eloisa CLAIRE [facility] Final Resul t documented in this encounter Visit Diagnoses Diagnosis Testicular swelling, left- Primary Edema of male genital organs Constipation Unspecified constipation Hematuria Hematuria, unspecified Elevated LFTs Other abnormal blood chemistry documented in this encounter Administered Medications Inactive Administered Medications - up to 3 most recent administrations Medication Order MAR Action Action Date Dose Rate Site iopamidol (ISOVUE-370) 76 % injection 100 mL 100 mL, Intravenous, IMG once as needed, Contrast, 1 dose, Starting on Wed09/20/19 at 0147, Until Wed09/20/19 at 0147 Given 09/20/2019 1:47 AM [facility] 100 mLs documented in this encounter Active and Recently Administered Medications Times are shown in [facility] [facility]. PRN Medication Order 09/18/2019 09/19/2019 09/20/2019 iopamidol (ISOVUE-370) 76 % injection 100 mL (COMPLETED) 100 mL, Intravenous, IMG once as needed, Contrast, 1 dose, Starting on Wed09/20/19 at 0147, Until Wed09/20/19 at 0147 0147 (Given - Provid er: David Abdi, RTR) documented in this encounter Care Teams Geospatial Image Analyst Relationship Specialty Start Date End Date None, Provider, PCP - General 09/19/19 documented as of this encounter
--- OUTSIDE RECORDS SUMMARY | 2024-08-06 19:04 | XMS_ITS | Encounter Summary ---
Author Organization [facility] Address [facility]6 [facility]. [place], [place] [id number] [place] [id number] Care Team Providers Care Manual Lathe Machinist Name Role Phone None, Provider Primary Care Provider Unavaila ble Reason for Visit * Reason Comments Nausea Encounter Details Date Type Department Care Team (Late st Contact Info) Description 07/28/2024 4:21 PM THREAD CLIPPER - 07/28/2024 7:32 PM THREAD CLIPPER Emergency [facility] [place] [address] Dhruv Nettles MD [address] [place] [address] Nausea Discharge Disposition: Home or Self Care (Routine [...] Sign Reading Time Taken Comments Blood Pressure 169/110 07/28/2024 4:16 PM THREAD CLIPPER Pulse 73 07/28/2024 4:16 PM THREAD CLIPPER Temperature 36.3 ??C (97.4 ??F) 07/28/2024 4:16 PM CS T Respiratory Rate 16 07/28/2024 4:16 PM THREAD CLIPPER Oxygen Saturation 99% 07/28/2024 4:16 PM THREAD CLIPPER Inhaled Oxygen Concentration - - Weight 122.5 kg (270 lb) 07/28/2024 4:16 PM THREAD CLIPPER Height 180.3 cm (5' 11 ) 07/28/2024 4:16 PM THREAD CLIPPER Body Mass Index 37.66 07/28/2024 4:16 PM THREAD CLIPPER documented in this encounter Discharge Instructions * Attachments The following attachments cannot be sent through Care Everywhere. * Dealing With Nausea and Vomiting From the Drugs You Take (Czech) * Constipation, Adult ED (Czech) * Clear Liquid Diet (Czech) documented in this encounter Medications at Time of Discharge docusate sodium (COLACE) 100 MG capsule Take 1 capsule (100 mg total) by mouth 2 (two) times daily for 10 days. 10 capsule 07/28/2024 08/07/2024 ondansetron (ZOFRAN) 4 MG tablet Take 1 tablet (4 mg total) by mouth every 8 (eight) hours as needed for Nausea. 7 tablet 07/28/2024 sucralfate (CARAFATE) 1 G tablet Take 1 tablet (1 g total) by mouth 4 (four) times daily before meals and nightly. 120 tablet 07/28/2024 hydrOXYzine (ATARAX) 25 MG tablet Take 1-3 tablets (25-75 mg total) by mouth 3 (three) times daily as needed for Anxiety. 45 tablet 07/29/2024 08/03/2024 documented as of this encounter ED Notes * Judie Roth RN - 07/28/2024 4:14 PM CSTSummary: TRIAGE Pt presents to ED from home for nausea & dizziness x 3 days. A&Ox4. Pt also reports testosterone injections x 5 months. AD CLIPPER AD CLIPPER documented in this encounter Plan of Treatment Not on file documented as of this encounter Procedures Procedure Name Priority Date/Time Associated Diagnosis Comments TSH W/REFLEX STAT 07/28/2024 4:24 PM THREAD CLIPPER COMPREHENSIVE METABOLIC PANEL STAT 07/28/2024 4:24 PM THREAD CLIPPER CBC W/DIFF AUTOMATED STAT 07/28/2024 4:24 PM THREAD CLIPPER MAGNESIUM STAT 07/28/2024 4:24 PM THREAD CLIPPER documented in this encounter Results * TSH W/REFLEX (07/28/2024 4:24 PM THREAD CLIPPER) TSH 0.836 0.358 - 3.74 uIU/ML 07/28/2024 5:16 PM THREAD CLIPPER [facility] Comment: HIGH DOSES OF BIOTIN MAY INTERFERE WITH THIS TEST RESULT. CORRELATION TO CLINICAL HISTORY AND PRESENTATION RECOMMENDED. FREE T4 NOT INDICATED 07/28/2024 4:24 PM THREAD CLIPPER [facility] Final Result Performing Organization Address [facility]/ZIP Co de Phone Number [facility] [address] [place] [address], [place] [phone] * MAGNESIUM (07/28/2024 4:24 PM THREAD CLIPPER) Pathologist [facility] MAGNESIUM 2.1 1.8 - 2.4 MG/DL 07/28/2024 5:16 PM THREAD CLIPPER [facility] 07/28/2024 4:24 PM THREAD CLIPPER [facility] Final Result [facility] [address] [place] [address], [place] [phone] * (ABNORMAL) COMPREHENSIVE METABOLIC PANEL (07/28/2024 4:24 PM THREAD CLIPPER) Pathologist [facility] GLUCOSE 108(H) 70 - 99 MG/DL 07/28/2024 5:16 PM THREAD CLIPPER [facility] BUN 9 7 - 18 MG/DL 07/28/2024 5:16 PM THREAD CLIPPER [facility] CREATININE S/P/B 0.94 0.7 - 1.3 MG/DL 07/28/2024 5:16 PM [facility] SODIUM S/P/B 135(L) 136 - 145 MMOL/L 07/28/2024 5:16 PM [facility] POTASSIUM S/P/B 3.6 3.5 - 5.1 MMOL/L 07/28/2024 5:16 PM [facility] CHLORIDE S/P/B 103 97 - 115 MMOL/L 07/28/2024 5:16 PM [facility] CO2 25.9 21 - 32 MMOL/L 07/28/2024 5:16 PM [facility] CALCIUM S/P/B 9.5 8.5 - 10.1 MG/DL 07/28/2024 5:16 PM [facility] BILIRUBIN TOTAL S/P/B 0.7 0.2 - 1.2 MG/DL 07/28/2024 5:16 PM [facility] Comment: THIS ASSAY IS NOT RECOMMENDED FOR PATIENTS UNDERGOING TREATMENT WITH ELTROMBOPAG DUE TO THE POTENTIAL FOR FALSELY ELEVATED RESULTS. TOTAL PROTEIN S/P/B 8.2 6.4 - 8.2 G/DL 07/28/2024 5:16 PM [facility] ALBUMIN S/P/B 4.4 3.4 - 5.0 G/DL 07/28/2024 5:16 PM [facility] AST 24 15 - 37 U/L 07/28/2024 5:16 PM [facility] ALT 47 16 - 60 U/L 07/28/2024 5:16 PM [facility] ALKALINE PHOSPHATASE S/P/B 60 50 - 136 U/L 07/28/2024 5:16 PM [facility] ANION GAP 6.1 2 - 10 MMOL/L 07/28/2024 5:16 PM [facility] BUN CREATININE RATIO 9.6 6 - 26 07/28/2024 5:16 PM [facility] A/G RATIO 1.2 1.0 - 2.0 RATIO 07/28/2024 5:16 PM [facility] GFR ESTIMATE >90 >90 ML/MIN/1.7 3 M2 07/28/2024 5:16 PM [facility] Comment: NOTE: eGFR is not calculated for patients <18 years of age or gender unknown. This is an estimated GFR calculation using the new CKD EPI creatinine equation without race and so does not require a correction factor for race. This estimated GFR should not be used for calculating drug doses. 07/28/2024 4:24 PM THREAD CLIP[facility] Final Result [facility] [address] [place] [id number], * (ABNORMAL) CBC W/DIFF AUTOMATED (07/28/2024 4:24 PM THREAD CLIPPER) WBC 8.11 4.5 - 11.0 x10'3/uL 07/28/2024 4:42 PM [facility] RBC 6.03 4.70 - 6.10 x10'6/uL 07/28/2024 4:42 PM [facility] HGB 16.1 14.0 - 18.0 G/DL 07/28/2024 4:42 PM [facility] HCT 46.2 43.0 - 54.0 % 07/28/2024 4:42 PM [facility] MCV 76.6(L) 80.0 - 94.0 FL 07/28/2024 4:42 PM [facility] MCH 26.7(L) 27.0 - 31.0 PG 07/28/2024 4:42 PM [facility] MCHC 34.8 32.0 - 36.0 G/DL 07/28/2024 4:42 PM [facility] RDW 14.1 11.5 - 14.5 % 07/28/2024 4:42 PM [facility] PLT 305 130 - 400 x10'3/uL 07/28/2024 4:42 PM [facility] MPV 9.9 9.3 - 12.2 FL 07/28/2024 4:42 PM [facility] DIFFERENTIAL TYPE AUTOMATED DIFFERENTIAL 07/28/2024 4:42 PM [facility] NEUTROPHILS % 71.6 % 07/28/2024 4:42 PM [facility] LYMPHOCYTES % 20.8 % 07/28/2024 4:42 PM [facility] MONOCYTES % 5.4 % 07/28/2024 4:42 PM [facility] EOSINOPHILS 1.2 % 07/28/2024 4:42 PM [facility] BASOPHILS 0.5 % 07/28/2024 4:42 PM [facility] IMMATURE GRANS % 0.5 % 07/28/20 4:42 PM [facility] ABS. NEUTROPHILS 5.80 1.80 - 7.70 x10'3/uL 07/28/2024 4:42 PM [facility] ABS. LYMPHOCYTES 1.69 1.00 - 4.80 x10'3/uL 07/28/2024 4:42 PM [facility] ABS. MONOCYTES 0.44 0.30 - 0.82 x10'3/uL 07/28/2024 4:42 PM THREAD CLIPPER [facility] ABS. EOSINOPHILS 0.10 0.04 - 0.54 x10'3/uL 07/28/2024 4:42 PM THREAD CLIPPER [facility] ABS. BASOPHILS 0.04 0.01 - 0.08 x10'3/uL 07/28/2024 4:42 PM THREAD CLIPPER [facility] ABS. IMMATURE GRANULOCYTES 0.04 0.00 - 0.49 x10'3/uL 07/28/2024 4:42 PM THREAD CLIPPER [facility] 07/28/2024 4:24 PM THREAD CLIPPER [facility] Final Result [facility] [address] [place] [address], documented in this encounter Visit Diagnoses Diagnosis Nausea- Primary Nausea alone Constipation Unspecified constipation documented in this encounter Administered Medications Inactive Administered Medications - up to 3 most recent administrations Medication Order MAR Action Action Date Dose Rate Site ondansetron (ZOFRAN) injection 4 mg 4 mg, Intravenous, Once, 1 dose, On Wed07/28/24 at 1630, IV push over 2-5 minutes. Given 07/28/2024 4:25 PM THREAD CLIPPER 4 mg documented in this encounter Active and Recently Administered Medications Times are shown in THREAD CLIPPER. Scheduled Medication Order 07/26/2024 07/27/2024 07/28/2024 ondansetron (ZOFRAN) injection 4 mg (COMPLETED) 4 mg, Intravenous, Once, 1 dose, On Wed07/28/24 at 1630, IV push over 2-5 minutes. 1625 (Given - Provid er: Blas Zavala RN) documented in this encounter Care Teams Manual Lathe Machinist Relationship Specialty Start Date End Date None, Provider, MD PCP - General 09/19/19 documented as of this encounter
--- OUTSIDE RECORDS SUMMARY | 2024-08-06 19:04 | XMS_ITS | Encounter Summary ---
Author Organization [facility] Address Formerly [facility]6 [facility] [place] [address] [place] [address] Care Team Providers Care Leather Finisher Name Role Phone None, Provider Primary Care Provider Unavaila ble Reason for Referral * Imaging (Emergency) - New Request Specialty Diagnoses / Procedures Referred By Nelli pinto Referred To Contact RADIOLOGY Procedures CT ABD+PEL W IV CON ONLY Ese Michelle NP [address] [address] Phone: tel: fax: Referral ID Status Reason Start Date Expiration Date V isits Requested Visits Authorized [id number] New Request 11/22/2023 11/21/2024 1 1 Reason for Visit * Reason Comments Abdominal Pain Encounter Details Date Type Department Care Team (Late st Contact Info) Description 11/22/2023 6:06 PM CDT - 11/22/2023 9:07 PM CDT Emergency [facility] Emergency Room [place], [place] [id number] Lemuel Baez MD [address] [place] [address] Abdominal Pain Discharge Disposition: Home or Self Care (Routine [...] Sign Reading Time Taken Comments Blood Pressure 134/80 11/22/2023 9:05 PM CDT Pulse 65 11/22/2023 9:05 PM CDT Temperature 36.9 ??C (98.4 ??F) 11/22/2023 6:02 PM CD T Respiratory Rate 18 11/22/2023 6:02 PM CDT Oxygen Saturation 99% 11/22/2023 6:02 PM CDT Inhaled Oxygen Concentration - - Weight 129.3 kg (285 lb) 11/22/2023 6:02 PM CDT Height 182.9 cm (6') 11/22/2023 6:02 PM CDT Body Mass Index 38.65 11/22/2023 6:02 PM CDT documented in this encounter Discharge Instructions * Discharge Instructions* Lemuel Baez MD - 11/22/2023 8:57 PM CDT Thank you for entrusting your health with me. I have obtained information about your health and reviewed your work-up. Please access Simphatic to see my note and work-up. Medical care is complex and your health is important to me. I encourage you to ask questions for further understanding of today's visit and return if something changes. Sincerely, Dr. Baez * Attachments The following attachments cannot be sent through Care Everywhere. * Abdominal pain (Rwandan) documented in this encounter ED Notes * Azeb Celaya RN - 11/22/2023 9:07 PM CDT Patient examined by provider prior to nurse discharge. Please see provider documentation. RN only discharged the patient. Discharge instructions reviewed with patient. No further questions. IV removed. No s/s distress. Ambulatory out of ED. * Lemuel Baez MD - 11/22/2023 8:57 PM CDT Emergency Department Note Chief Complaint Chief Complaint Patient presents with Abdominal Pain History of Present Illness The patient is a 23-year-old male who presents with epigastric abdominal pain. Pain is described asa burning sensation. Pain was initially intermittent and is now constant. He reports taking Tums, Pepto-Bismol without relief. Patient also took 2 dosages of Pepcid. No prior abdominal surgeries. Mild nausea. No vomiting. No diarrhea or constipation. No fevers or chills. Hx obtained by patient Medical History MEDICATIONS: Prior to Admission medications Not on File PAST MEDICAL HISTORY: History reviewed. No pertinent past medical history. PAST SURGICAL HISTORY: Past Surgical History: Procedure Laterality Date BIOPSY liver Physical Exam Vital 24 Hour Range Most Recent Value Temperature Temp Min: 98.4 ??F (36.9 ??C) Max: 98.4 ??F (36.9 ??C) 98.4 ??F (36.9 ??C) Pulse Pulse Min: 77 Max: 77 77 Respiratory Resp Min: 18 Max: 18 18 Blood Pressure BP Min: 144/81 Max: 144/81 (!) 144/81 Pulse Oximetry SpO2 Min: 99 % Max: 99 % 99 % O2 No data recorded Constitutional: Well developed, Well nourished, No acute distress, Non-toxic appearance. HEENT: Normocephalic, Atraumatic, Bilateral external ears normal, EOMI, Conjunctiva normal, No discharge.Oropharynx moist, Nose normal. Respiratory: Normal breath sounds, No respiratory distress. Cardiovascular: Normal heart rate, Normal rhythm GI: Soft, mild epigastric tenderness Neck: Normal range of motion, No tenderness, Supple, No stridor. Back: No tenderness Extremities: Intact distal pulses, No edema, No tenderness, Good range of motion in all major joints. Skin: Warm, Dry, No erythema, No rash. Neurologic: Alert & oriented x 3, Normal motor function, Normal sensory function, No focal deficits noted. Psychiatric: Affect normal, Judgment normal, Mood normal. Medical Decision Making/ ED course: Problem list: Epigastric abdominal pain Differentials:Peptic ulcer disease, biliary pathology, pancreatitis, other Labs: Results for orders placed or performed during the hospital encounter of 11/22/23 CBC W/DIFF AUTOMATED Result Value Ref Range WBC 10.53 4.5 - 11.0 x10'3/uL RBC 5.78 4.70 - 6.10 x10'6/uL HGB 15.3 14.0 - 18.0 G/DL HCT 45.3 43.0 - 54.0 % MCV 78.4 (L) 80.0 - 94.0 FL MCH 26.5 (L) 27.0 - 31.0 PG MCHC 33.8 32.0 - 36.0 G/DL RDW 13.4 11.5 - 14.5 % PLT 313 130 - 400 x10'3/uL MPV 10.0 9.3 - 12.2 FL DIFFERENTIAL TYPE AUTOMATED DIFFERENTIAL NEUTROPHILS 70.2 % LYMPHOCYTES 21.3 % MONOCYTES 6.4 % EOSINOPHILS 1.4 % BASOPHILS 0.2 % IMMATURE GRANS 0.5 % ABS. NEUTROPHILS 7.40 1.80 - 7.70 x10'3/uL ABS. LYMPHOCYTES 2.24 1.00 - 4.80 x10'3/uL ABS. MONOCYTES 0.67 0.30 - 0.82 x10'3/uL ABS. EOSINOPHILS 0.15 0.04 - 0.54 x10'3/uL ABS. BASOPHILS 0.02 0.01 - 0.08 x10'3/uL ABS. IMMATURE GRANULOCYTES 0.05 0.00 - 0.49 x10'3/uL COMPREHENSIVE METABOLIC PANEL Result Value Ref Range GLUCOSE 95 70 - 99 MG/DL BUN 14 7 - 18 MG/DL CREATININE S/P/B 0.82 0.7 - 1.3 MG/DL SODIUM S/P/B 139 136 - 145 MMOL/L POTASSIUM S/P/B 4.0 3.5 - 5.1 MMOL/L CHLORIDE S/P/B 107 100 - 108 MMOL/L CO2 26.3 21 - 32 MMOL/L CALCIUM S/P/B 10.1 8.5 - 10.1 MG/DL BILIRUBIN TOTAL S/P/B 0.6 0.2 - 1.2 MG/DL TOTAL PROTEIN S/P/B 8.0 6.4 - 8.2 G/DL ALBUMIN S/P/B 4.4 3.4 - 5.0 G/DL AST 18 15 - 37 U/L ALT 50 16 - 60 U/L ALKALINE PHOSPHATASE S/P/B 68 50 - 136 U/L ANION GAP 5.7 5 - 15 MMOL/L BUN CREATININE RATIO 17.1 6 - 26 A/G RATIO 1.2 1.0 - 2.0 RATIO GFR ESTIMATE >90 >90 ML/MIN/1.73 M2 LIPASE Result Value Ref Range LIPASE 23 13 - 75 UNITS/L Imaging: CT ABD+PEL W IV CON ONLY Result Date: 11/22/2023 IMPRESSION: No acute findings of the abdomen or pelvis. Referred By: Interpreted By: Radha Huang DO, 11/22/2023 7:42 PM ' My independent interpretation of labs/imaging: Normal white count. Hemoglobin 15. LFTs and lipase are unremarkable. CT without signs of biliary pathology or pancreatitis. My independent interpretation of pulse ox: Normal Consults: no emergent consult indicated Communication: I discussed the workup as well as plan of care when possible. I discussed medications as well as other therapies as needed. Recommended patient continue 40 mg of Pepcid daily for 2 weeks. Recommended close follow-up with primary care provider. Medications sodium chloride 0.9% bolus infusion 1,000 mL (1,000 mLs Intravenous New Bag 11/22/231814) ondansetron (ZOFRAN) injection 4 mg (4 mg Intravenous Given 11/22/231815) famotidine (PF) (PEPCID) injection 20 mg (20 mg Intravenous Given 11/22/231815) iopamidol (ISOVUE-370) 76 % injection 100 mL (100 mLs Intravenous Given 11/22/231923) Clinical Impression Epigastric abdominal pain (Primary) There are no discharge medications for this patient. Disposition: Discharge Follow-Up: [facility] Emergency Room [address] [facility] [id number] If symptoms worsen Deisy Guzman DO [address] [facility] [address] Call in 1 day for primary care follow-up LEMUEL BAEZ MD 11/22/2023 Please excuse any grammatical or spelling errors as this chart was likely documented using a dictation software. Lemuel Baez MD 11/22/232058 * Monica Smith RN - 11/22/2023 6:03 PM CDT Pt here from home via pov with complaints of abd pain for the past 4 days. Pt states he has taken some medications for it but has not helped. Pt locates pain in the epigastric region. * Ese Michelle NP - 11/22/2023 6:02 PM CDT [facility] [place] EMERGENCY DEPARTMENT ENCOUNTER Medical Screening Examination 11/22/23 6:03 PM Chief Complaint : No chief complaint on file. HPI : Erick Triana is a 23-year-old male who presents to the Emergency Department today for evaluation of epigastric pain for 3 days, taking tums and pepto with some relief. No hx of abd problems. Vital Signs: Filed Vitals: 11/22/23 1802 BP: (!) 144/81 Pulse: 77 Resp: 18 Temp: 98.4 ??F (36.9 ??C) TempSrc: Temporal SpO2: 99% Weight: 129.3 kg (285 lb) Height: 1.829 m (6') Physical exam: A brief physical exam was completed to facilitate/expedite patient care. Bailey findings include: alert, abd soft. Limited exam. Plan: Necessary labs/imaging/medications ordered to initiate pt care. Initial EKG noted at time of performance. Please note that due to size capacity of triage room where the MSE exam was performed, and patient privacy concerns I am unable to do a full complete physical assessment on patient. Ese Michelle APRN, dictated portions of this note using Netskope speech recognition software. Occasional wrong word or sound-alike substitutions may have occurred due to the inherent limitations ofvoice recognition software. Please read carefully and recognize, using context, where the substitutions may have occurred. Ese Michelle NP 11/22/23 180 Cosigned by Lemuel Baez MD at 11/22/2023 8:43 PM CDT documented in this encounter Plan of Treatment Not on file documented as of this encounter Procedures Procedure Name Priority Date/Time Associated Diagnosis Comments CT ABD+PEL W CON STAT 11/22/2023 7:23 PM CDT COMPREHENSIVE METABOLIC PANEL STAT 11/22/2023 6:11 PM CDT CBC W/DIFF AUTOMATED STAT 11/22/2023 6:11 PM CDT LIPASE STAT 11/22/2023 6:11 PM CDT documented in this encounter Results * CT ABD+PEL W IV CON ONLY (11/22/2023 7:23 PM CDT) Anatomical Region Laterality Modality Abdomen Computed Tomogra phy 11/22/2023 7:42 PM CDT Impressions 11/22/2023 7:46 PM CDT IMPRESSION: No acute findings of the abdomen or pelvis. Referred By: ?? Interpreted By: Radha Huang DO, 11/22/2023 7:42 PM Narrative 11/22/2023 7:46 PM CDT STUDY: CT ABD+PEL W CON: 11/22/2023 7:08 PM CLINICAL INFORMATION: LLQ abdominal pain COMPARISON: 09/20/2019 TECHNIQUE: CT acquisition of the abdomen and pelvis. Coronal and sagittal reformatted images provided. A dose lowering technique was utilized for this procedure which may include but is not limited to dose reduction techniques, automated exposure control, and/or the use of iterative reconstruction in accordance with ALARA principle. IV Contrast: 100 mL Isovue 370 Oral contrast: None. ?? FINDINGS: LOWER CHEST: Unremarkable. ABDOMEN/PELVIS: Liver: Normal. Gallbladder/biliary: Normal gallbladder. No biliary ductal dilation. Pancreas: Unremarkable. Spleen: Normal. Adrenal glands: Normal. Kidneys and ureters: Normal. Bladder: Normal. Reproductive organs: Normal for age. Stomach/bowel: Normal. Appendix: Normal. Lymph nodes: Multiple small mesenteric lymph nodes, not enlarged by size criteria, no significant change from 2019 comparison. Peritoneum: No intraperitoneal free air. No intraperitoneal free fluid. Vessels: Normal. MUSCULOSKELETAL: Abdominal wall: No soft tissue mass. Bones: No acute osseous abnormality. Soft tissues: Unremarkable. Procedure Note Radha Huang DO - 11/22/2023 STUDY: CT ABD+PEL W CON: 11/22/2023 7:08 PM CLINICAL INFORMATION: LLQ abdominal pain COMPARISON: 09/20/2019 TECHNIQUE: CT acquisition of the abdomen and pelvis. Coronal and sagittalreformatted images provided. A dose lowering technique was utilized forthis procedure which may include but is not limited to dose reductiontechniques, automated exposure control, and/or the use of iterativereconstruction in accordance with ALARA principle. IV Contrast: 100 mL Isovue 370 Oral contrast: None. FINDINGS: LOWER CHEST: Unremarkable. ABDOMEN/PELVIS: Liver: Normal. Gallbladder/biliary: Normal gallbladder. No biliary ductal dilation. Pancreas: Unremarkable. Spleen: Normal. Adrenal glands: Normal. Kidneys and ureters: Normal. Bladder: Normal. Reproductive organs: Normal for age. Stomach/bowel: Normal. Appendix: Normal. Lymph nodes: Multiple small mesenteric lymph nodes, not enlarged by sizecriteria, no significant change from 2019 comparison. Peritoneum: No intraperitoneal free air. No intraperitoneal free fluid. Vessels: Normal. MUSCULOSKELETAL: Abdominal wall: No soft tissue mass. Bones: No acute osseous abnormality. Soft tissues: Unremarkable. IMPRESSION: No acute findings of the abdomen or pelvis. Referred By: Interpreted By: Radha Huang DO, 11/22/2023 7:42 PM sEe Michelle BACK END WEB DEVELOPER CT Final Result * LIPASE (11/22/2023 6:11 PM CDT) LIPASE 23 13 - 75 UNITS/L 11/22/2023 6:56 PM CDT [facility] 11/22/2023 6:11 PM CDT Ese Michelle NP LABORATORY Final Result [facility] [address] [place] [address], [place] [phone] * COMPREHENSIVE METABOLIC PANEL (11/22/2023 6:11 PM CDT) [facility] GLUCOSE 95 70 - 99 MG/DL 11/22/2023 6:[address] [facility] BUN 14 7 - 18 MG/DL 11/22/2023 6:[address] [facility] CREATININE S/P/B 0.82 0.7 - 1.3 MG/DL 11/22/2023 6:[address] [facility] SODIUM S/P/B 139 136 - 145 MMOL/L 11/22/2023 6:[address] [facility] POTASSIUM S/P/B 4.0 3.5 - 5.1 MMOL/L 11/22/2023 6:[address] [facility] CHLORIDE S/P/B 107 100 - 108 MMOL/L 11/22/2023 6:[address] [facility] CO2 26.3 21 - 32 MMOL/L 11/22/2023 6:[address] [facility] CALCIUM S/P/B 10.1 8.5 - 10.1 MG/DL 11/22/2023 6:[address] [facility] BILIRUBIN TOTAL S/P/B 0.6 0.2 - 1.2 MG/DL 11/22/2023 6:[address] [facility] Comment: THIS ASSAY IS NOT RECOMMENDED FOR PATIENTS UNDERGOING TREATMENT WITH ELTROMBOPAG DUE TO THE POTENTIAL FOR FALSELY ELEVATED RESULTS. TOTAL PROTEIN S/P/B 8.0 6.4 - 8.2 G/DL 11/22/2023 6:[address] [facility] ALBUMIN S/P/B 4.4 3.4 - 5.0 G/DL 11/22/2023 6:[address] [facility] AST 18 15 - 37 U/L 11/22/2023 6:[address] [facility] ALT 50 16 - 60 U/L 11/22/2023 6:[address] [facility] ALKALINE PHOSPHATASE S/P/B 68 50 - 136 U/L 11/22/2023 6:[address] [facility] ANION GAP 5.7 5 - 15 MMOL/L 11/22/2023 6:[address] [facility] BUN CREATININE RATIO 17.1 6 - 26 11/22/2023 6:[address] [facility] A/G RATIO 1.2 1.0 - 2.0 RATIO 11/22/2023 6:[address] [facility] GFR ESTIMATE >90 >90 ML/MIN/1.7 3 M2 11/22/2023 6:[address] [facility] Comment: NOTE: eGFR is not calculated for patients <18 years of age. This is an estimated GFR calculation using the new CKD EPI creatinine equation without race and so does not require a correction factor for race. This estimated GFR should not be used for calculating drug doses. 11/22/2023 6:11 PM CDT us Ese Michelle NP LABORATORY Final Result [facility] [address] [place] [address], [place] [phone] * (ABNORMAL) CBC W/DIFF AUTOMATED (11/22/2023 6:11 PM CDT) [facility] WBC 10.53 4.5 - 11.0 x10'3/uL 11/22/2023 6:[address] [facility] RBC 5.78 4.70 - 6.10 x10'6/uL 11/22/2023 6:[address] [facility] HGB 15.3 14.0 - 18.0 G/DL 11/22/2023 6:[address] [facility] HCT 45.3 43.0 - 54.0 % 11/22/2023 6:[address] [facility] MCV 78.4(L) 80.0 - 94.0 FL 11/22/2023 6:[address] [facility] MCH 26.5(L) 27.0 - 31.0 PG 11/22/2023 6:[address] [facility] MCHC 33.8 32.0 - 36.0 G/DL 11/22/2023 6:[address] [facility] RDW 13.4 11.5 - 14.5 % 11/22/2023 6:[address] [facility] PLT 313 130 - 400 x10'3/uL 11/22/2023 6:[address] [facility] MPV 10.0 9.3 - 12.2 FL 11/22/2023 6:[address] [facility] DIFFERENTIAL TYPE AUTOMATED DIFFERENTIAL 11/22/2023 6:[address] [facility] NEUTROPHILS % 70.2 % 11/22/2023 6:[address] [facility] LYMPHOCYTES % 21.3 % 11/22/2023 6:[address] [facility] MONOCYTES % 6.4 % 11/22/2023 6:[address] [facility] EOSINOPHILS 1.4 % 11/22/2023 6:[address] [facility] BASOPHILS 0.2 % 11/22/2023 6:[address] [facility] IMMATURE GRANS % 0.5 % 11/22/19 6:[address] [facility] ABS. NEUTROPHILS 7.40 1.80 - 7.70 x10'3/uL 11/22/2023 6:[address] [facility] ABS. LYMPHOCYTES 2.24 1.00 - 4.80 x10'3/uL 11/22/2023 6:[address] [facility] ABS. MONOCYTES 0.67 0.30 - 0.82 x10'3/uL 11/22/2023 6:[address] [facility] ABS. EOSINOPHILS 0.15 0.04 - 0.54 x10'3/uL 11/22/2023 6:[address] [facility] ABS. BASOPHILS 0.02 0.01 - 0.08 x10'3/uL 11/22/2023 6:[address] [facility] ABS. IMMATURE GRANULOCYTES 0.05 0.00 - 0.49 x10'3/uL 11/22/2023 6:[address] [facility] 11/22/2023 6:11 PM CDT us Ese Michelle NP LABORATORY Final Result [facility] [address] [place] [address], [place] [phone] documented in this encounter Visit Diagnoses Diagnosis Epigastric abdominal pain- Primary Abdominal pain, epigastric documented in this encounter Administered Medications Inactive Administered Medications - up to 3 most recent administrations Medication Order MAR Action Action Date Dose Rate Site famotidine (PF) (PEPCID) injection 20 mg 20 mg, Intravenous, Once, 1 dose, On Wed11/22/23 at 1815, IV Push over 2 minutes Given 11/22/2023 6:16 PM CDT 20 mg iopamidol (ISOVUE-370) 76 % injection 100 mL 100 mL, Intravenous, IMG once as needed, Contrast, 1 dose, Starting on Wed11/22/23 at 1923, Until Wed11/22/23 at 1924 Given 11/22/2023 7:24 PM CDT 100 mLs ondansetron (ZOFRAN) injection 4 mg 4 mg, Intravenous, Once, 1 dose, On Wed11/22/23 at 1815, IV push over 2-5 minutes. Given 11/22/2023 6:16 PM CDT 4 mg sodium chloride 0.9% bolus infusion 1,000 mL 1,000 mL, Intravenous, Administer over 60 Minutes, Once, 1 dose, On Wed11/22/23 at 1815 New Bag 11/22/2023 6:15 PM CDT 1,000 mLs documented in this encounter Active and Recently Administered Medications Times are shown in CDT. Scheduled Medication Order 11/20/2023 11/21/2023 11/22/2023 famotidine (PF) (PEPCID) injection 20 mg (COMPLETED) 20 mg, Intravenous, Once, 1 dose, On Wed11/22/23 at 1815, IV Push over 2 minutes 181 (Given - Provid er: Essie Briceno RN) ondansetron (ZOFRAN) injection 4 mg (COMPLETED) 4 mg, Intravenous, Once, 1 dose, On Wed11/22/23 at 1815, IV push over 2-5 minutes. 181 (Given - Provid er: Essie Briceno RN) sodium chloride 0.9% bolus infusion 1,000 mL (COMPLETED) 1,000 mL, Intravenous, Administer over 60 Minutes, Once, 1 dose, On Wed11/22/23 at 1815 1815 (New Bag - Prov ider: Essie Briceno RN)210 (Infusion Stop Time - Provider: Azeb Celaya RN) PRN Medication Order 11/20/2023 11/21/2023 11/22/2023 iopamidol (ISOVUE-370) 76 % injection 100 mL (COMPLETED) 100 mL, Intravenous, IMG once as needed, Contrast, 1 dose, Starting on Wed11/22/23 at 1922, Until Wed11/22/23 at 1923 1923 (Given - Provid er: Liz Hernandez, RTR) documented in this encounter Care Teams Leather Finisher Relationship Specialty Start Date End Date None, Provider, PCP - General 09/19/19 documented as of this encounter
--- OUTSIDE RECORDS SUMMARY | 2024-08-06 19:04 | XMS_ITS | Encounter Summary ---
Author Organization [facility] Address [facility]. [place], [place] [id number] [place] [id number] Care Team Providers Care Ict Trainer Name Role Phone None, Provider Primary Care Provider Unavaila ble Reason for Visit * Reason Comments Dizziness Encounter Details Date Type Department Care Team (Late st Contact Info) Description 07/28/2024 11:56 PM ELECTRIC BLANKET PACKER - 07/29/2024 12:27 AM ELECTRIC BLANKET PACKER Emergency [facility] Emergency Room [place], [place] [address] Unique Benites PA [address] [place], [place] [address] Dizziness Discharge Disposition: Home or Self Care (Routine [...] Sign Reading Time Taken Comments Blood Pressure 172/97 07/28/2024 11:49 PM ELECTRIC BLANKET PACKER Pulse 85 07/28/2024 11:49 PM ELECTRIC BLANKET PACKER Temperature 36.7 ??C (98 ??F) 07/28/2024 11:49 PM ELECTRIC BLANKET PACKER Respiratory Rate 16 07/28/2024 11:49 PM ELECTRIC BLANKET PACKER Oxygen Saturation 99% 07/28/2024 11:49 PM ELECTRIC BLANKET PACKER Inhaled Oxygen Concentration - - Weight 122.5 kg (270 lb) 07/28/2024 11:49 PM ELECTRIC BLANKET PACKER Height 180.3 cm (5' 11 ) 07/28/2024 11:49 PM ELECTRIC BLANKET PACKER Body Mass Index 37.66 07/28/2024 11:49 PM ELECTRIC BLANKET PACKER documented in this encounter Discharge Instructions * Discharge Instructions* DAKOTAH Gaviria - 07/28/2024 11:54 PM ELECTRIC BLANKET PACKER Images from the original note were not included. Use these helpful tips when feeling anxious. If your symptoms persist or worsen, please return to the ER. Thank you for allowing me to care for you today. I have attached some suggested discharge instructions for you to use to aid in your recovery. Please take any medications prescribed to you as directed. If your symptoms are not improving or are significantly worsening, please return to the ER for further evaluation and treatment. Thank you, Unique Benites PA-C ADDITIONAL DISCHARGE INFORMATION: Emergency rooms (ER) and urgent cares (UC) provide medical screening exams and initial stabilizing treatment of emergency medical conditions. Medicine is an inexact science and many conditions cannotbe diagnosed or completely treated during a single ER visit. Your treating healthcare provider(s) today feel your condition has been stabilized so further evaluation and treatment as an outpatient isreasonable. Emergency care does not substitute for complete, ongoing, or follow-up care by your primary care physician or jury consultant. Please mention to your follow-up physician that you were in the emergency department and request that they review your labs and/or imaging to ensure all findings are followed up on. TRIC BLANKET PACKER * Attachments The following attachments cannot be sent through Care Everywhere. * Anxiety Discharge Instructions, Adult (Cambodian) documented in this encounter Medications at Time [...] as of this encounter ED Notes * DAKOTAH Gaviria - 07/28/2024 11:54 PM CST [place], [place] EMERGENCY DEPARTMENT ENCOUNTER HISTORICAL INFORMATION Primary Care Doctor: Provider MD Neo Patient information was obtained primarily from the patient, nursing notes. History/Exam limitations: None Provider at Bedside Date/Time Event User Comments 07/28/24 1038 Provider at Bedside Assessing Patient UNIQUE BENITES -- CHIEF COMPLAINT Dizziness Chief Complaint Patient presents with Dizziness HPI Erick Triana is a 24-year-old male who presents for head tingling and feeling weird . Patient was seen at this facility earlier for nausea, dizziness, and lightheadedness and discharged with zofran and colace. He states he was having trouble laying down to go to sleep because he felt weird . States he has felt weird all day. He has h/o htn but was taken off medications, took 20 mg lisinopril that he had left at home once he was discharged because he was concerned about his BP. No CP, SOB, NG, double vision, abd pain. PAST MEDICAL HISTORY History reviewed. No pertinent past medical history. SURGICAL HISTORY Past Surgical History: Procedure Laterality Date BIOPSY liver CURRENT MEDICATIONS No current facility-administered medications for this encounter. Current Outpatient Medications: hydrOXYzine (ATARAX) 25 MG tablet, Take 1-3 tablets (25-75 mg total) by mouth 3 (three) times dailyas needed for Anxiety., Disp: 45 tablet, Rfl: 0 docusate sodium (COLACE) 100 MG capsule, Take 1 capsule (100 mg total) by mouth 2 (two) times dailyfor 10 days., Disp: 10 capsule, Rfl: 0 ondansetron (ZOFRAN) 4 MG tablet, Take 1 tablet (4 mg total) by mouth every 8 (eight) hours as needed for Nausea., Disp: 7 tablet, Rfl: 0 sucralfate (CARAFATE) 1 G tablet, Take 1 tablet (1 g total) by mouth 4 (four) times daily before meals and nightly., Disp: 120 tablet, Rfl: 0 ALLERGIES Review of patient's allergies indicates: No Known Allergies FAMILY HISTORY No family history on file. SOCIAL HISTORY Social History Socioeconomic History Marital status: Single Tobacco Use Smoking status: Never Smokeless tobacco: Never Substance and Sexual Activity Alcohol use: Not Currently Drug use: Not Currently REVIEW OF SYMPTOMS provided by: Patient Neuro: + head tingling. No headache. No dizziness or weakness. No slurred speech. No facial droop Physical Exam VITAL SIGNS: Filed Vitals: 07/28/24 2349 BP: (!) 172/97 Pulse: 85 Resp: 16 Temp: 98 ??F (36.7 ??C) TempSrc: Temporal SpO2: 99% Weight: 122.5 kg (270 lb) Height: 1.803 m (5' 11 ) General: Awake and alert. Well nourished. Non-toxic appearing. No acute distress. Anxious, fidgeting Head: Normocephalic. Atraumatic. Skin: Warm, dry. Good skin turgor. No visible rashes Eyes: Sclera normal. Conjunctiva normal. Lids and lashes normal. Lens normal. EOMs within normal limit. Eyebrows raise symmetrically. No nystagmus. Ears: Normal external ears bilaterally. Hearing intact. Nose: Nose normal. No active discharge Oropharynx: Voice normal. Lips normal. Oral mucosa is pink and moist. . No facial droop. Speech is normal Respiratory: No respiratory distress MSK: ROM normal. No obvious deformities Neuro: AOX3. Answers all questions appropriately. Speech is normal. Mood/affect: anxious [facility] ED Course as of 07/29/24 0015 Sat Jul 29, 2024 0010 Patient is a nontoxic but anxious appearing 24 y/o presenting with not feeling well and tingling in head all day, evaluated at this facility a few hours ago with negative workup. No new symptoms since initial visit. No pain, neuro exam normal. Elevated BP however suspect this may be influenced by his anxiety. H/o HTN, encouraged monitoring at home and f/u with PCP. No CP, SOB. No indication for repeat labs or additional imaging at this time as his workup earlier today was negative and reassuring. Return precautions discussed and patient v/u and is agreeable to the plan. Patient was given the opportunity to ask questions. All questions were answered to the best of my ability. Discharged home in stable condition. [AP] ED Course User Index [AP] DAKOTAH Gaviria Amount and/or Complexity of Data Reviewed Source of information/historian: Patient Review of internal medical records with patient's permission Impression/Disposition SNOMED CT(R) 1. Anxiety ANXIETY Disposition: Discharge Medications LORazepam (ATIVAN) tablet 1 mg (1 mg Oral Given 07/29/24 0003) Current Discharge Medication List START taking these medications Details hydrOXYzine (ATARAX) 25 MG tablet Take 1-3 tablets (25-75 mg total) by mouth 3 (three) times daily as needed for Anxiety. Qty: 45 tablet, Refills: 0 Class: Eprescribe Pharmacy: [id number] AT [facility] [id number] (Ph #: [phone]) DAKOTAH GAVIRIA Disclaimer: Portions of this note were created using teextee, a speech recognition software. Occasional wrong word or sound alike substitutions may have occurred due to the inherent limitations of voice recognition software. Please read the note carefully and use context to recognize when substitutions may have occurred. DAKOTAH Gaviria 07/29/24 0015 Cosigned by Jesus Jaimes MD,PHD at 07/29/2024 3:35 AM ELECTRIC BLANKET PACKER TRIC BLANKET PACKER TRIC BLANKET PACKER * Gabby Rivera RN - 07/28/2024 11:45 PM CST Pt presents to the ER with c/o tingling head and brain fog, stated had the feelings like this earlier, when he was here, for dizziness. TRIC BLANKET PACKER documented in this encounter Plan of Treatment Not on file documented as of this encounter Visit Diagnoses Diagnosis Anxiety- Primary Anxiety state, unspecified documented in this encounter Administered Medications Inactive Administered Medications - up to 3 most recent administrations Medication Order MAR Action Action Date Dose Rate Site LORazepam (ATIVAN) tablet 1 mg 1 mg, Oral, Once, 1 dose, On 07/29/24 at 0000 Given 07/29/2024 12:03 AM ELECTRIC BLANKET PACKER 1 mg documented in this encounter Active and Recently Administered Medications Times are shown in ELECTRIC BLANKET PACKER. Scheduled Medication Order 07/27/2024 07/28/2024 07/29/2024 LORazepam (ATIVAN) tablet 1 mg (COMPLETED) 1 mg, Oral, Once, 1 dose, On 07/29/24 at 0000 0003 (Given - Provid er: Irene Bridges RN) documented in this encounter Care Teams Ict Trainer Relationship Specialty Start Date End Date None, Provider, PCP - General 09/19/19 documented as of this encounter
--- OUTSIDE RECORDS SUMMARY | 2024-08-06 19:04 | XMS_ITS | Clinical Summary ---
Author Organization [facility] Address [facility] [place] [address] [place] [address] Care Team Providers Care Supervisor Waterworks Name Role Phone None, Provider MD Primary Care Provider Unavaila ble Allergies No known active allergies Medications sucralfate (CARAFATE) 1 G tablet Take 1 tablet (1 g total) by mouth 4 (four) times daily before meals and nightly. 120 tablet 07/28/2024 Active ondansetron (ZOFRAN) 4 MG tablet Take 1 tablet (4 mg total) by mouth every 8 (eight) hours as needed for Nausea. 7 tablet 07/28/2024 Active docusate sodium (COLACE) 100 MG capsule Take 1 capsule (100 mg total) by mouth 2 (two) times daily for 10 days. 10 capsule 07/28/2024 08/07/19 25 Active hydrOXYzine (ATARAX) 25 MG tablet Take 1-3 tablets (25-75 mg total) by mouth 3 (three) times daily as needed for Anxiety. 45 tablet 07/29/2024 08/03/19 25 Encounters Date Type Department Care Team Description 07/28/2024 11:56 PM FULL DECATOR OPERATOR - 07/29/2024 12:27 AM [facility] Emergency [facility] [place] [address] Unique Cardenas PA Dizziness Discharge Disposition: Home or Self Care (Routine Discharge) 07/28/2024 4:21 PM FULL DECATOR OPERATOR - 07/28/2024 7:32 PM [facility] Emergency [facility] [place] [address] Dhruv Nettles MD Nausea Discharge Disposition: Home or Self Care (Routine Discharge) 07/28/2024 Travel from Last 3 Months Social History Tobacco Use Types Packs/Day Years [...] Comments Blood Pressure 172/97 07/28/2024 11:49 PM FULL DECATOR OPERATOR Pulse 85 07/28/2024 11:49 PM FULL DECATOR OPERATOR Temperature 36.7 ??C (98 ??F) 07/28/2024 11:49 PM FULL DECATOR OPERATOR Respiratory Rate 16 07/28/2024 11:49 PM FULL DECATOR OPERATOR Oxygen Saturation 99% 07/28/2024 11:49 PM FULL DECATOR OPERATOR Inhaled Oxygen Concentration - - Weight 122.5 kg (270 lb) 07/28/2024 11:49 PM FULL DECATOR OPERATOR Height 180.3 cm (5' 11 ) 07/28/2024 11:49 PM FULL DECATOR OPERATOR Body Mass Index 37.66 07/28/2024 11:49 PM FULL DECATOR OPERATOR Plan of Treatment Health Maintenance Due Date Last Done Comments Annual Physical 2003 DTaP, Tdap and Td Vaccines (7 - Td or Tdap) 07/24/2021 07/24/2011, 03/19/2006, 01/19/2002, Additional history exists COVID-19 Vaccine ( season) 2024 Influenza Adult (#1) 2024 07/12/2015, 08/17/2013, 06/23/2011 Pneumococcal Vaccine: Pediatrics (0 to 5 Years) and At-Risk Patients (6 to 64 Years) Aged Out 01/19/2002, 01/17/2001, 2000, Additional history exists No longer eligible based on patient's age to complete this topic HPV Vaccines Completed 08/08/2012, 09/03, 07/24/2011 Hepatitis B Vaccines Completed 12/04/2015, 01/19/2002, 2000, Additional history exists Hepatitis C Completed 11/12/2017 Meningococcal Vaccine Completed 05/24/2019 , 07/24/2011, 07/24/2011 RSV Immunizations Under 20 Months Aged Out No longer eligible based on patient's age to complete this topic Procedures Procedure Name Priority Date/Time Associated Diagnosis Comments TSH W/REFLEX STAT 07/28/2024 4:24 PM FULL DECATOR OPERATOR MAGNESIUM STAT 07/28/2024 4:24 PM FULL DECATOR OPERATOR COMPREHENSIVE METABOLIC PANEL STAT 07/28/2024 4:24 PM FULL DECATOR OPERATOR CBC W/DIFF AUTOMATED STAT 07/28/2024 4:24 PM FULL DECATOR OPERATOR from Last 3 Months Results * TSH W/REFLEX (07/28/2024 4:24 PM FULL DECATOR OPERATOR) TSH 0.836 0.358 - 3.74 uIU/ML 07/28/2024 5:16 PM FULL DECATOR OPERATOR [facility] Comment: HIGH DOSES OF BIOTIN MAY INTERFERE WITH THIS TEST RESULT. CORRELATION TO CLINICAL HISTORY AND PRESENTATION RECOMMENDED. FREE T4 NOT INDICATED 07/28/2024 4:24 PM FULL DECATOR OPERATOR [facility] Final Result [facility] [address] [place] [id number], [place] [phone] * (ABNORMAL) COMPREHENSIVE METABOLIC PANEL (07/28/2024 4:24 PM FULL DECATOR OPERATOR) GLUCOSE 108(H) 70 - 99 MG/DL 07/28/2024 5:16 PM FULL DECATOR OPERATOR [facility] BUN 9 7 - 18 MG/DL 07/28/2024 5:16 PM FULL DECATOR OPERATOR [facility] CREATININE S/P/B 0.94 0.7 - 1.3 MG/DL 07/28/2024 5:16 PM FULL DECATOR OPERATOR [facility] SODIUM S/P/B 135(L) 136 - 145 MMOL/L 07/28/2024 5:16 PM [facility] POTASSIUM S/P/B 3.6 3.5 - 5.1 MMOL/L 07/28/2024 5:16 PM [facility] CHLORIDE S/P/B 103 97 - 115 MMOL/L 07/28/2024 5:16 PM [facility] CO2 25.9 21 - 32 MMOL/L 07/28/2024 5:16 PM [facility] CALCIUM S/P/B 9.5 8.5 - 10.1 MG/DL 07/28/2024 5:16 PM [facility] BILIRUBIN TOTAL S/P/B 0.7 0.2 - 1.2 MG/DL 07/28/2024 5:16 PM [facility] Comment: THIS ASSAY IS NOT RECOMMENDED FOR PATIENTS UNDERGOING TREATMENT WITH ELTROMBOPAG DUE TO THE POTENTIAL FOR FALSELY ELEVATED RESULTS. TOTAL PROTEIN S/P/B 8.2 6.4 - 8.2 G/DL 07/28/2024 5:16 PM [facility] ALBUMIN S/P/B 4.4 3.4 - 5.0 G/DL 07/28/2024 5:16 PM [facility] AST 24 15 - 37 U/L 07/28/2024 5:16 PM [facility] ALT 47 16 - 60 U/L 07/28/2024 5:16 PM [facility] ALKALINE PHOSPHATASE S/P/B 60 50 - 136 U/L 07/28/2024 5:16 PM [facility] ANION GAP 6.1 2 - 10 MMOL/L 07/28/2024 5:16 PM [facility] BUN CREATININE RATIO 9.6 6 - 26 07/28/2024 5:16 PM [facility] A/G RATIO 1.2 1.0 - 2.0 RATIO 07/28/2024 5:16 PM FULL DECATOR OPERATOR [facility] GFR ESTIMATE >90 >90 ML/MIN/1.7 3 M2 07/28/2024 5:16 PM [facility] Comment: NOTE: eGFR is not calculated for patients <18 years of age or gender unknown. This is an estimated GFR calculation using the new CKD EPI creatinine equation without race and so does not require a correction factor for race. This estimated GFR should not be used for calculating drug doses. 07/28/2024 4:24 PM FULL DECATOR OPERATOR [facility] Final Result [facility] [address] [place] [address], * (ABNORMAL) CBC W/DIFF AUTOMATED (07/28/2024 4:24 PM FULL DECATOR OPERATOR) WBC 8.11 4.5 - 11.0 x10'3/uL 07/28/2024 4:42 PM [facility] RBC 6.03 4.70 - 6.10 x10'6/uL 07/28/2024 4:42 PM [facility] HGB 16.1 14.0 - 18.0 G/DL 07/28/2024 4:42 PM [facility] HCT 46.2 43.0 - 54.0 % 07/28/2024 4:42 PM FULL DECATOR OPERATOR [facility] MCV 76.6(L) 80.0 - 94.0 FL 07/28/2024 4:42 PM [facility] MCH 26.7(L) 27.0 - 31.0 PG 07/28/2024 4:42 PM [facility] MCHC 34.8 32.0 - 36.0 G/DL 07/28/2024 4:42 PM [facility] RDW 14.1 11.5 - 14.5 % 07/28/2024 4:42 PM [facility] PLT 305 130 - 400 x10'3/uL 07/28/2024 4:42 PM [facility] MPV 9.9 9.3 - 12.2 FL 07/28/2024 4:42 PM [facility] DIFFERENTIAL TYPE AUTOMATED DIFFERENTIAL 07/28/2024 4:42 PM [facility] NEUTROPHILS % 71.6 % 07/28/2024 4:42 PM [facility] LYMPHOCYTES % 20.8 % 07/28/2024 4:42 PM [facility] MONOCYTES % 5.4 % 07/28/2024 4:42 PM [facility] EOSINOPHILS 1.2 % 07/28/2024 4:42 PM [facility] BASOPHILS 0.5 % 07/28/2024 4:42 PM [facility] IMMATURE GRANS % 0.5 % 07/28/20 4:42 PM [facility] ABS. NEUTROPHILS 5.80 1.80 - 7.70 x10'3/uL 07/28/2024 4:42 PM FULL DECATOR OPERATOR [facility] ABS. LYMPHOCYTES 1.69 1.00 - 4.80 x10'3/uL 07/28/2024 4:42 PM [facility] ABS. MONOCYTES 0.44 0.30 - 0.82 x10'3/uL 07/28/2024 4:42 PM [facility] ABS. EOSINOPHILS 0.10 0.04 - 0.54 x10'3/uL 07/28/2024 4:42 PM FULL DECATOR OPERATOR [facility] ABS. BASOPHILS 0.04 0.01 - 0.08 x10'3/uL 07/28/2024 4:42 PM FULL DECATOR OPERATOR [facility] ABS. IMMATURE GRANULOCYTES 0.04 0.00 - 0.49 x10'3/uL 07/28/2024 4:42 PM FULL DECATOR OPERATOR [facility] 07/28/2024 4:24 PM FULL DECATOR OPERATOR [facility] Final Result [facility] [address] [place] [address], [place] [phone] * MAGNESIUM (07/28/2024 4:24 PM FULL DECATOR OPERATOR) MAGNESIUM 2.1 1.8 - 2.4 MG/DL 07/28/2024 5:16 PM FULL DECATOR OPERATOR [facility] 07/28/2024 4:24 PM FULL DECATOR OPERATOR [facility] Final Result [facility] [address] [place] [address], [place] [phone] from Last 3 Months Insurance Care Teams Supervisor Waterworks Relationship Specialty Start Date End Date None, Provider, PCP - General 09/19/19
--- OUTSIDE RECORDS SUMMARY | 2024-08-06 19:04 | XMS_ITS | Encounter Summary ---
Author Organization [facility] Address [facility]. [place] [id number] [place], [place] [id number] Care Team Providers Care Supervisory Aide Name Role Phone None, Provider Primary Care Provider Unavaila ble Encounter Details Date Type Department Care Team (Latest Contact Info) Description 11/22/2023 Travel Social History Tobacco Use Types Packs/Day [...] on filedocumented in this encounter Care Teams Supervisory Aide Relationship Specialty Start Date End Date None, Provider, PCP - General 09/19/19 documented as of this encounter
--- OUTSIDE RECORDS SUMMARY | 2024-08-06 19:04 | XMS_ITS | Encounter Summary ---
Author Organization [facility] Address [facility]. [place], [place] [id number] [place], [place] [id number] Care Team Providers Care Mixing Supervisor Name Role Phone Unavailable Primary Care Provider Unavailabl e Encounter Details Date Type Department Care Team (Late st Contact Info) Description 03/02/2007 [place] [address] , Generic Conversion, Social History Tobacco Use Types Packs/Day Years [...]
== END 2024-07-30 18:29 | disposition home or self-care (01) ==
PROVIDERS: Emergency Provider Nurse Practitioner Family; PCP Physician Assistant
DX: R11.0 Nausea (principal); Z20.822 Contact with and (suspected) exposure to COVID-19; I10 Essential (primary) hypertension
CPT/HCPCS: 74018; 87426; 87804; 99213; G0463

== ENCOUNTER 2024-07-30 22:11 | Emergency (ER) | payer OTHER, SELFPAY ==
--- NOTE | ~2024-07-30 | CT_ITS ---
Non-contrast Head CT History: Dizziness, weakness Technique: Axial non-contrast imaging of the brain was performed. Dose reduction technique was used on this scan by utilizing automated exposure control and iterative reconstruction technique. The dose -length product (DLP) was 681.00 mGy-cm. Findings: There is no evidence of intracranial hemorrhage, mass lesion, or acute infarct. Brain par enchyma appears normal. The ventricles and subarachnoid spaces are normal in size. The calvarium ap pears normal. The visualized paranasal sinuses and mastoid air cells are clear. Impression: No significant abnormality seen. Reviewed, dictated and finalized at location . TYPE ARTIST Impression: No significant abnormality seen.
--- NOTE | ~2024-07-30 | XR_ITS ---
Portable chest x-ray Comparison: None Clinical History: Nausea Findings: Lungs are clear, without focal consolidation or pleural effusion. Cardiomediastinal silho uette is unremarkable. Bones and soft tissues are unremarkable. Impression: Clear lungs. Reviewed, dictated and finalized at location M. R UNLOADER Impression: Clear lungs.
[2024-07-30 22:14] VITALS: BP 164/87; PULSE 84; RESP 20; TEMP 36.7; O2SAT 99
--- NOTE | 2024-07-30 23:53 | ECG_ITS ---
Test Date: 2024-07-31 00:09:04 Measurements Intervals [place] Rate: 84 P: 22 PA: 140 QRS: -24 QRSD: 114 T: 26 QT: 354 QTc: 419 Interpretive Statements SINUS RHYTHM BORDERLINE LEFT AXIS DEVIATION [QRS AXIS < -20] INCOMPLETE RIGHT BUNDLE BRANCH BLOCK [90+ ms QRS DURATION, TERMINAL R IN V1/V2, 40+ ms S IN I/aVL/V4/V5/V6] VOLTAGE CRITERIA FOR LVH [MEETS CRITERIA IN ONE OF: R(aVL), S(V1), R(V5), R(V5/V6)+S(V1)] No previous ECG available for comparison Electronically Signed On 07-31-2024 18:19:26 FINANCIAL ACCOUNTANT by Pardeep Santiago M.D.
--- NOTE | 2024-07-30 23:57 | ED_ITS ---
HPI - General Adult General Chief complaint: Dizziness Stated complaint: dizzy and lightheadedness x3d Time Seen by Provider: 07/30/24 23:41 History of Present Illness HPI narrative: Patient 24-year-old gentleman presents emergency department with chief complaint of feeling tingly over his body the patient states that he was seen at [facility] had blood test done that was seen in urgent care patient states that he is concerned there may be something going on with his brain report and would like a CT scan the patient reports that he was treated with an injectable weight loss medication but has not used it for over 2 weeks. Patient reports he has also cut back his caffeine intake patient denies fever the patient denies focal weakness patient reports that he had 1 episode of vomiting Related Data Home Medications ?Medication ?Instructions ?Recorded ?Confirmed ?Last Taken ?Type pantoprazole 40 mg tablet,delayed 40 mg PO QAM 12/24/23 Unknown History release Allergies Allergy/AdvReac Type Severity Reaction Status Date / Time No Known Allergies Allergy Verified 07/30/24 22:12 Review of Systems 2 Review of Systems: A 10 system review of systems was completed on the patient and is negative except for what is stated in the HPI. Nursing and ancillary documentation was reviewed. [facility] Past Medical History Medical History H. pylori infection Gastritis Hypertension Surgical History Surgical History History of tonsillectomy Family History Family History Other Diabetes mellitus Heart disease Hypertension Social History Social History Smoking status: Never smoker Alcohol intake: current Substance use: never Do You Feel Safe in your Home?: Yes Lack of Transportation: No Lack of Food: Never True Current Housing: I Have Housing Concerned About Future Housing: No Difficulty Paying Gas/Electric Bills: No Difficulty Paying for Meds: No Currently Unemployed: YES Education: High School Diploma/GED Difficulty w/ Childcare or Family Care: No Exam 2 Narrative: GENERAL: Well-appearing, well-nourished, and in no acute distress. HEAD: Normocephalic, atraumatic. EYES: PERRLA and EOMI. ENT: Nares clear, no rhinorrhea or epistaxis. Mucous membranes moist. NECK: Supple. CHEST: Clear to auscultation. No respiratory distress. HEART: Regular rate and rhythm. No murmur heard. Normal peripheral pulses. ABDOMEN: Soft, nontender, nondistended, normal active bowel sounds. EXTREMITIES: Normal range of motion. No edema. SKIN: Warm, dry, no rash. NEURO: No focal deficits. Alert and oriented x3. GCS is PSYCH: Normal mood and affect. Course Vital Signs Vital signs: Vital Signs Temperature 36.7 C 07/30/24 22:14 Pulse Rate 84 07/30/24 22:14 Respiratory Rate 20 07/30/24 22:14 Blood Pressure 164/87 H 07/30/24 22:14 Pulse Oximetry 99 07/30/24 22:14 Oxygen Delivery Room Air 07/30/24 22:14 Temperature 36.7 C 07/30/24 22:14 Pulse Rate 84 07/30/24 22:14 Respiratory Rate 20 07/30/24 22:14 Blood Pressure 164/87 H 07/30/24 22:14 Pulse Oximetry 99 07/30/24 22:14 Oxygen Delivery Room Air 07/30/24 22:14 Medical Decision Making MDM Narrative Medical decision making narrative: Differential diagnosis includes dehydration, electrolyte abnormality, infection, UTI, rhabdomyolysis CT head was obtained that showed no acute intracranial pathology S Electrolytes were obtained which were within normal limits urinalysis showed 3+ ketones CPK was obtained as well due to the elevated ketones in the urine patient was given IV fluids in the emergency department and is starting to have some improvement Vital Signs Vital Signs: Vital Signs Temperature 36.7 C 07/30/24 22:14 Pulse Rate 84 07/30/24 22:14 Respiratory Rate 20 07/30/24 22:14 Blood Pressure 164/87 H 07/30/24 22:14 Pulse Oximetry 99 07/30/24 22:14 Oxygen Delivery Room Air 07/30/24 22:14 Temperature 36.7 C 07/30/24 22:14 Pulse Rate 84 07/30/24 22:14 Respiratory Rate 20 07/30/24 22:14 Blood Pressure 164/87 H 07/30/24 22:14 Pulse Oximetry 99 07/30/24 22:14 Oxygen Delivery Room Air 07/30/24 22:14 Lab Data 07/31/24 00:08 07/31/24 00:08 Labs: Lab Results 07/31/24 07/31/24 Range/Units 00:08 00:19 WBC 11.2 H (4.5-10.0) K/mm3 RBC 5.90 (4.6-6.20) M/mm3 Hgb 16.1 (14.0-18.0) g/dL Hct 46.1 (42.0-52.0) % MCV 78.1 L (80-100) fl MCH 27.3 (26-34) pg MCHC 34.9 (32-36) g/dl RDW 14.2 (11.5-14.5) % Plt Count 309 (150-375) k/mm3 MPV 9.6 (7.4-10.4) fl Immature Gran % (Auto) 0.4 (0-0.5) % Neut % (Auto) 81.7 H (45.5-73.1) % Lymph % (Auto) 12.7 L (18.3-44.2) % [place] % (Auto) 4.7 (2.6-8.5) % Eos % (Auto) 0.2 (0-4.4) % Baso % (Auto) 0.3 (0.2-1.2) % Lymph # (Auto) 1.42 (0.9-3.2) K/mm3 [place] # (Auto) 0.5 (0.1-0.6) K/mm3 Eos # (Auto) 0.0 (0-0.3) K/mm3 Baso # (Auto) 0.0 (0.0-0.1) K/mm3 Abs Immat Gran (auto) 0.04 H (0.00-0.031) K/mm3 Absolute Neuts (auto) 9.2 H (1.3-6.7) K/mm3 Absolute Nucleated RBC 0.000 (0.0-0.012) K/mm3 Nucleated RBC % 0.0 (0.0-0.2) % Sodium 139 (137-145) mmol/L Potassium 4.1 (3.4-5.0) mmol/L Chloride 106 (98-107) mmol/L Carbon Dioxide 26 (22-30) mmol/L Anion Gap 7 (4-12) mmol/L BUN 10 (9-20) mg/dL Creatinine 0.90 (0.7-1.3) mg/dL Estim Creat Clear Calc 150 ml/min Estimated GFR > 60 (59 - ) Glucose 101 (65-110) mg/dL Lactic Acid 0.9 (0.7-2.0) mmol/L Calcium 9.8 (8.4-10.2) mg/dL Magnesium 2.0 (1.6-2.3) mg/dL Total Bilirubin 0.8 (0.2-1.3) mg/dL AST 30 (17-59) U/L ALT 45 (6-50) U/L Alkaline Phosphatase 63 (38-126) U/L Total Creatine Kinase 78 (55-170) U/L Total Protein 8.0 (6.3-8.2) g/dL Albumin 4.9 (3.5-5.1) g/dL Urine Color Yellow (Yellow) Urine Appearance Clear (Clear) Urine pH 7.5 (5.0-9.0) Ur Specific [place] 1.018 (1.001-1.035) Urine Protein Negative (Negative) mg/dL Urine Glucose (UA) Negative (Negative) mg/dL Urine Ketones 3+ H (Negative) mg/dL Ur Blood (Man) Negative (Negative) Urine Nitrate Negative (Negative) Urine Bilirubin Negative (Negative) Urine Urobilinogen 1.0 (<2.0) mg/dL Leukocyte Esterase Rfl Negative (Negative) GARY/UL Discharge Plan Discharge Clinical Impression: Dizziness, Dehydration Patient Disposition: Home, Self-Care Condition: Stable Instructions: Antibiotic Form, Dehydration (ED), Dizziness (ED) Patient Language: Barb[place] Prescriptions: No Action pantoprazole 40 mg tablet,delayed release (DR/EC) 40 mg PO QAM Follow-up/Referrals: Lio,DAKOTAH Bonilla [Primary Care Provider] - Time of Disposition: 01:07
[2024-07-31] MEDS: SODIUM CHLORIDE 0.9% IV 1,000 ML 999 ML IV CONT ×2 (00:08→00:54)
[2024-07-31 00:19] LABS: Basophils Percent Auto 0.3 % (0.2-1.2); Eosinophils Percent Auto 0.2 % (0-4.4); Hematocrit 46.1 % (42.0-52.0); Hemoglobin 16.1 g/dL (14.0-18.0); Immature Granulocyte Absolute 0.04 K/mm3 (0.00-0.031); Immature Granulocyte Percent A 0.4 % (0-0.5); Lymphocytes Absolute Auto 1.42 K/mm3 (0.9-3.2); Lymphocytes Percent Auto 12.7 % (18.3-44.2); Mean Corpuscular HGB Conc 34.9 g/dl (32-36); Mean Corpuscular Hemoglobin 27.3 pg (26-34); Mean Corpuscular Volume 78.1 fl (80-100); Mean Platelet Volume 9.6 fl (7.4-10.4); Monocytes Absolute Auto 0.5 K/mm3 (0.1-0.6); Monocytes Percent Auto 4.7 % (2.6-8.5); Neutrophils Absolute Auto 9.2 K/mm3 (1.3-6.7); Neutrophils Percent Auto 81.7 % (45.5-73.1); Platelet Count Result 309 k/mm3 (150-375); Red Cell Distribution Width 14.2 % (11.5-14.5); White Blood Count 11.2 K/mm3 (4.5-10.0)
[2024-07-31 00:28] LABS: Add Urine Microscopic? NO; Appearance Urine Clear (Clear); Bilirubin Urine Negative (Negative); Blood Urine Negative (Negative); Color Urine Yellow (Yellow); Glucose Urine UA Negative (Negative); Ketones Urine 3+ mg/dL (Negative); Leukocyte Esterase Ur Negative LEU/UL (Negative); Nitrate Urine Negative (Negative); Protein Urine Negative (Negative); Specific Grav Ur 1.018 (1.001-1.035); pH Urine 7.5 (5.0-9.0)
[2024-07-31 00:33] LABS: Lactic Acid Reflex 0.9 mmol/L (0.7-2.0)
[2024-07-31 00:46] LABS: Alanine Aminotransferase 45 U/L (6-50); Albumin Level 4.9 g/dL (3.5-5.1); Alkaline Phosphatase 63 U/L (38-126); Anion Gap 7 mmol/L (4-12); Aspartate Amino Transferase 30 U/L (17-59); Bilirubin,Total 0.8 mg/dL (0.2-1.3); Blood Urea Nitrogen 10 mg/dL (9-20); Calcium 9.8 mg/dL (8.4-10.2); Carbon Dioxide 26 mmol/L (22-30); Chloride 106 mmol/L (98-107); Estimated CRCL calculation 150 ml/min; Estimated Glomerular Filt Rate > 60; Glucose 101 mg/dL (65-110); Potassium 4.1 mmol/L (3.4-5.0); Sodium 139 mmol/L (137-145)
[2024-07-31 00:58] LABS: Creatine Kinase 78 U/L (55-170)
[2024-07-31 01:50] VITALS: BP 134/79; PULSE 72; RESP 16; O2SAT 100
== END 2024-07-31 01:52 | disposition home or self-care (01) ==
PROVIDERS: Emergency Provider Emergency Medicine; PCP Physician Assistant
DX: R42 Dizziness and giddiness (principal); E86.0 Dehydration; I10 Essential (primary) hypertension
CPT/HCPCS: 36415; 70450; 71045; 74018; 80053; 81003; 82550; 83605; 83735; 85025; 87426; 87804; 93005; 96360; 96361; 99213; 99283; G0463; J7030

== ENCOUNTER 2024-07-31 18:08 | Emergency (ER) | payer OTHER, SELFPAY ==
[2024-07-31 18:32] VITALS: BP 151/95; PULSE 95; RESP 18; TEMP 36.6; O2SAT 100
[2024-07-31 19:36] VITALS: BP 147/92; PULSE 71; RESP 19; TEMP 36.3; O2SAT 100
--- NOTE | 2024-07-31 20:31 | ED_ITS ---
HPI - General Adult General Chief complaint: Unspecified Stated complaint: lightheaded, nausea, upper back pain Time Seen by Provider: 07/31/24 19:29 History of Present Illness HPI narrative: 24-year-old male history of anxiety presenting with a chief complaint of feeling off. Patient has been seen 4 times at various hospitals over the last 2 days for vague complaints like lightheadedness/dizziness and 1 episode of vomiting. The patient is waking up in night and shaking feels like something is wrong. Patient is concerned that something may be wrong with his pancreas or kidneys he has had lab work performed and outside of some ketones in his urine they have been normal. His viral swabs are negative. Last night he requested a CT scan which was provided and had a normal CT scan. I reviewed the previous laboratory studies and imaging and considered other serious dx but do not feel they are likely. Patient was prescribed hydroxyzine but only took it once and said it did not help. He has not follow-up with his primary care physician. Patient was on Ozempic but discontinued it several weeks ago due to constipation. He relieved his sxs by taking mag citrate and giving himself an enema. Patient is denying fevers chills chest pain difficulty breathing abdominal pain symptoms. Related Data Home Medications ?Medication ?Instructions ?Recorded ?Confirmed ?Last Taken ?Type pantoprazole 40 mg tablet,delayed 40 mg PO QAM 12/24/23 Unknown History release Allergies Allergy/AdvReac Type Severity Reaction Status Date / Time No Known Allergies Allergy Verified 07/31/24 18:08 [facility] Past Medical History Medical History H. pylori infection Gastritis Hypertension Surgical History Surgical History History of tonsillectomy Family History Family History Other Diabetes mellitus Heart disease Hypertension Social History Social History Smoking status: Never smoker Alcohol intake: current Substance use: never Do You Feel Safe in your Home?: Yes Lack of Transportation: No Lack of Food: Never True Current Housing: I Have Housing Concerned About Future Housing: No Difficulty Paying Gas/Electric Bills: No Difficulty Paying for Meds: No Currently Unemployed: YES Education: High School Diploma/GED Difficulty w/ Childcare or Family Care: No Exam Narrative: APPEARANCE: Patient is tremulous, he cannot stop moving, he is tapping his foot on the ground Head: atraumatic. EYES: EOMI, NOSE: Atraumatic NECK: Trachea midline RESPIRATORY: No increased rate of breathing, clear to auscultation CARDIOVASCULAR: RRR, ABDOMINAL: Non-distended soft nontender MUSCULOSKELETAl: No obvious deformities NEURO: Alert. Moving 4/4 extremities SKIN:: Warm, dry. Normal color PSYCHIATRIC: Anxious Course Vital Signs Vital signs: Vital Signs Temperature 97.8 F 07/31/24 18:32 Pulse Rate 95 07/31/24 18:32 Respiratory Rate 18 07/31/24 18:32 Blood Pressure 151/95 H 07/31/24 18:32 Pulse Oximetry 100 07/31/24 18:32 Oxygen Delivery Room Air 07/31/24 18:32 Temperature 97.4 F L 07/31/24 19:36 Pulse Rate 71 07/31/24 19:36 Respiratory Rate 19 07/31/24 19:36 Blood Pressure 147/92 H 07/31/24 19:36 Pulse Oximetry 100 07/31/24 19:36 Oxygen Delivery Room Air 07/31/24 18:32 Medical Decision Making MDM Narrative Medical decision making narrative: -Course: 24-year-old male presenting ED with CC of lightheadedness/nausea. Patient has been seen in multiple ERs. He is obviously very anxious about his health and is tremulous and shaking in the room. Other than being anxious he is very well appearing. There are no findings on physical exam. His vital signs are within acceptable limits. Other serious causes of lightheadedness and nausea were considered but are far less likely. I discussed the utility of repeating studies that have already been normal in the last 2 days and the patient and his patient's mother agree there is no point repeating Patient will be given Valium for his anxiety. He is instructed to follow-up with his primary care physician. -Shared decision making / Disposition: Discharged. Vital Signs Vital Signs: Vital Signs Temperature 97.8 F 07/31/24 18:32 Pulse Rate 95 07/31/24 18:32 Respiratory Rate 18 07/31/24 18:32 Blood Pressure 151/95 H 07/31/24 18:32 Pulse Oximetry 100 07/31/24 18:32 Oxygen Delivery Room Air 07/31/24 18:32 Temperature 97.4 F L 07/31/24 19:36 Pulse Rate 71 07/31/24 19:36 Respiratory Rate 19 07/31/24 19:36 Blood Pressure 147/92 H 07/31/24 19:36 Pulse Oximetry 100 07/31/24 19:36 Oxygen Delivery Room Air 07/31/24 18:32 Discharge Plan Discharge Clinical Impression: Dizziness and giddiness Patient Disposition: Home, Self-Care Condition: Stable Instructions: Antibiotic Form, Anxiety (ED) Additional Instructions: Please follow-up with your primary care physician as soon as possible. Please continue taking the hydroxyzine for your anxiety. If you develop any new or worsening symptoms he can return to the ED at any time for re-evaluation. Patient Language: Gibraltarian Prescriptions: No Action pantoprazole 40 mg tablet,delayed release (DR/EC) 40 mg PO QAM Follow-up/Referrals: Lio,DAKOTAH Bonilla [Primary Care Provider] - 1 Week (ED f/u, Anxiety)
[2024-07-31 21:14] VITALS: BP 135/79; PULSE 70; RESP 19; TEMP 36.6; O2SAT 100
[2024-07-31] MEDS: diazePAM INJ (*CRX) 10 MG/2 ML SYRINGE 5 MG IM (21:29)
== END 2024-07-31 21:35 | disposition home or self-care (01) ==
PROVIDERS: Emergency Provider Emergency Medicine; PCP Physician Assistant
DX: R42 Dizziness and giddiness (principal); I10 Essential (primary) hypertension; F41.9 Anxiety disorder, unspecified
CPT/HCPCS: 96372; 96374; 99284; J3360

== ENCOUNTER 2024-08-04 23:47 | Emergency (ER) | payer OTHER, SELFPAY ==
[2024-08-04 23:50] VITALS: BP 149/87; PULSE 64; RESP 14; TEMP 37.1; O2SAT 100
--- OUTSIDE RECORDS SUMMARY | 2024-08-12 05:17 | XMS_ITS | Data Portability ---
Author Organization [facility] MELODYRidge aDrvin Jerome Address [address] [place] [address] Care Team Providers Care Cat Swamper Name Role Phone IRENE VACA Primary Care Provider [phone] Assessment Encounter Date Assessment Date Assessment LastModified by Organization Details LastModified Time 11/24/2023 11/24/2023 Sections of the HPI, exam and assessment completed by DAKOTAH Nam student and have been reviewed by me. I agree with the exam findings, assessment and plan except where specifically documented or amended. -Irene Vaca, [facility] [place] EVELYN Not available 11/24/2023 14:25:25 Plan of Treatment Reminders Order Date Submit Date Provider Last Modified By Organization Details Last Modified Time Details Appointments ANY 30 2024 07:30A Benny SINGH PA-C Not available Not available Not available Lab culture, urine 2022 023 [facility], [address], [address], [place], [address], 07/25/2023 02:06:36 urinalysi s, dipstick 2022 023 CHELI In-Office Order, Internal Use Only DO Not Attach Compendium DO Not Attach Compendium, Do Not Delete/merge, [id number] 07/22/2023 16:55:15 H pylori urea breath test, co2 infrared 2023 024 [facility] (Lab), [address] [place], [address], 12/16/2023 16:16:13 H pylori urea breath test, co2 infrared 2023 024 [facility] [address] [facility] [place], [address], 04/12/2024 16:13:40 H pylori urea breath test, co2 infrared 2024 025 [email or web address] [facility] (Lab), [address] [place], [address], 08/10/2024 15:23:11 Referral gastroent erologist referral 2023 024 [facility], [address], [place], [address], 12/13/2023 17:01:52 Procedures gastric emptying study (PROC) 2024 025 [id number]- Rad[facility], [address], [place], [address], 08/10/2024 12:32:24 Surgeries None recorded. Imaging None recorded. Medication Orders pantopraz ole 40 mg tablet,de layed release 2023 024 [id number], [address], [place], [place], [id number], 04/10/2024 15:34:55 Senna with Docusate Sodium 8.6 mg-50 mg tablet 2024 025 [facility]99182, [address], [place], [place], [phone], 08/10/2024 12:09:10 lactulose 10 gram/15 mL oral solution 2024 025 [facility], [address], [place], [id number], 08/10/2024 12:09:07 Patient TargetsNo targets recorded. 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) [address] [place], [address], 07/25/2023 02:06:36 07/22/20 23 07/25/2023 URINE CULTU RE, ROUTI NE result 1 Commen t Cultu re shows less than 10,00 0 colon y formi ng units of bacte kourtney per quinton liter of urine . This colon y count is not gener ally consi dered to be clini jonathan signi fican t. Not Available [facility] ([facility]) [address] [place], [address], 07/25/2023 02:06:36 07/23/20 23 07/23/2023 urina lysis , dipst ick Leukocytes Negati ve Not Available In-Office Order Internal Use Only DO Not Attach Compendium DO Not Attach Compendium, Do Not Delete/merge, [id number] 07/22/2023 12:27:57 07/23/20 23 07/23/2023 urina lysis , dipst ick Nitrite negati ve Not Available In-Office Order Internal Use Only DO Not Attach Compendium DO Not Attach Compendium, Do Not Delete/merge, [id number] 07/22/2023 12:27:57 07/23/20 23 07/23/2023 urina lysis , dipst ick Urobilinogen .2 Not Available In-Of fice Order Internal Use Only DO Not Attach Compendium DO Not Attach Compendium, Do Not Delete/merge, [id number] 07/22/2023 12:27:57 07/23/20 23 07/23/2023 urina lysis , dipst ick Protein Negati ve Not Available In-Office Order Internal Use Only DO Not Attach Compendium DO Not Attach Compendium, Do Not Delete/merge, [id number] 07/22/2023 12:27:57 07/23/20 23 07/23/2023 urina lysis , dipst ick pH 6.0 Not Available In-Office Order Internal Use Only DO Not Attach Compendium DO Not Attach Compendium, Do Not Delete/merge, [id number] 07/22/2023 12:27:57 07/23/20 23 07/23/2023 urina lysis , dipst ick Blood Negati ve Not Available In-Office Order Internal Use Only DO Not Attach Compendium DO Not Attach Compendium, Do Not Delete/merge, [id number] 07/22/2023 12:27:57 07/23/20 23 07/23/2023 urina lysis , dipst ick Specific [place] 1.015 Not Available In-Off ice Order Internal Use Only DO Not Attach Compendium DO Not Attach Compendium, Do Not Delete/merge, [id number] 07/22/2023 12:27:57 07/23/20 23 07/23/2023 urina lysis , dipst ick Ketone Negati ve Not Available In-Office Order Internal Use Only DO Not Attach Compendium DO Not Attach Compendium, Do Not Delete/merge, [id number] 07/22/2023 12:27:57 07/23/20 23 07/23/2023 urina lysis , dipst ick Bilirubin Negati ve Not Available In-Office Order Internal Use Only DO Not Attach Compendium DO Not Attach Compendium, Do Not Delete/merge, [id number] 07/22/2023 12:27:57 07/23/20 23 07/23/2023 urina lysis , dipst ick Glucose Negati ve Not Available In-Office Order Internal Use Only DO Not Attach Compendium DO Not Attach Compendium, Do Not Delete/merge, [id number] 07/22/2023 12:27:57 07/23/20 23 07/23/2023 urina lysis , dipst ick Appearance Clear Not Available In-Offi ce Order Internal Use Only DO Not Attach Compendium DO Not Attach Compendium, Do Not Delete/merge, [id number] 07/22/2023 12:27:57 07/23/20 23 07/23/2023 urina lysis , dipst ick Color Dark Yellow Not Available In-Office Order Internal Use Only DO Not Attach Compendium DO Not Attach Compendium, Do Not Delete/merge, [id number] 07/22/2023 12:27:57 12/14/19 24 12/16/2023 H PYLOR I BREAT H TEST H pylori breath test *ABNO RMAL* Posit brenda Perfo rmed at: 01 - [facility] [id number] [place] [address] 12[address] Lab Direc tor: Morgan arguello PhD, Phone : [phone] Not Available [facility] [address] [place], [address], 12/16/2023 16:16:13 04/10/20 24 04/12/2024 H PYLOR I BREAT H TEST H pylori breath test Negat brenda [facility] [address] [place] [address] Lab Direc tor: Morgan arguello PhD, Phone : [phone] Not Available [facility] [address] [place], [address], 04/12/2024 16:13:40 Result Notes None recorded. Problems Name Problem SNOMED Code Status Onset Date Resolution Date Notes Provider Name and Address Organization Details Recorded Time Morbid obesity 649667750 Active 2022 DAKOTAH FARIA Attn: Olivier g,[address] [facility], [place], [address] , [facility] 3 10:38:22 Mixed anxiety and depressive disorder 854493588 Active 2022 DAKOTAH FARIA Attn: Olivier mishra,[address] [facility], [place], [address], [facility] 3 10:38:20 Essential hypertension 92557402 Active 2022 DAKOTAH FARIA Attn: Olivier mishra,[address] [facility], [place], [address], [facility] 3 10:38:19 Gastroesophage al reflux disease without esophagitis 633495726 Active 2023 DAKOTAH FARIA Attn: Olivier mishra,[address] [facility], [place], [address], [facility] 4 19:50:39 Notes:fatty liver disease..p re diabetic Problem Notes None recorded. Procedures Surgical History Date Name Laterality Status Provider Name and Address Organization Details Recorded Time Remove tonsils and adenoids completed Linda Singh MA [facility] 09/11/2022 14:01:41 Imaging Results None recorded. Procedure Notes None recorded. Medical Equipment None Reported. Allergies No known drug allergies Medications Name Sig Start Date Stop Date Status Note LastModified by Organization Details LastModified Time cyclobenzap rine 10 mg tablet active Not Available Not Available Not Available azithromyci n 250 mg tablet TAKE 2 TABLETS BY MOUTH ON DAY 1, THEN TAKE 1 TABLET BY MOUTH DAILY FOR 4 DAYS active Not Available Not Available No t Available clarithromy jose g 500 mg tablet TAKE 1 TABLET BY MOUTH TWICE DAILY FOR 14 DAYS 04/10 completed Not Available Not Available Not Available sucralfate 1 gram tablet active Not Available Not Available Not Available ondansetron HCl 4 mg tablet active Not Available Not Available Not Available amoxicillin 500 mg tablet TAKE 2 TABLETS BY MOUTH TWICE DAILY FOR 14 DAYS 04/10 completed Not Available Not Available Not Available famotidine 20 mg tablet TAKE 1 TABLET BY MOUTH TWICE DAILY 04/10 completed Not Available Not Available Not Available meclizine 25 mg tablet active Not Available Not Available Not Available chorionic [...] completed Not Available Not Available Not Available docusate sodium 100 mg capsule TAKE 1 CAPSULE BY MOUTH TWICE DAILY active Not Available Not Available No t Available buspirone 7.5 mg tablet Take 1 tablet twice a day by oral route as directed for 30 days. 11/16 completed Not Available Not Available Not Available montelukast 10 mg tablet TAKE 1 TABLET BY MOUTH ONCE DAILY IN THE MORNING 04/19 completed Not Available Not Available Not Available hydroxyzine HCl 25 mg tablet active Not Available Not Available Not Available lisinopril 40 mg tablet Take 1 tablet every day by oral route in the morning for 30 days. 11/16 completed Not Available Not Available Not Available metoclopram lisa 10 mg tablet active Not Available Not Available Not Available buspirone 15 mg tablet TAKE 1 TABLET BY MOUTH TWICE DAILY DIRECTED 04/19 completed Not Available Not Available Not Available lactulose 10 gram/15 mL oral solution Take 15 mL every day by oral route for 30 days. 2024 active Not Available Not Available Not Avai lable Senna with Docusate Sodium 8.6 mg-50 mg tablet Take 2 tablets every day by oral route for 30 days. 2024 active Not Available Not Available Not Avai lable Mounjaro 2.5 mg/0.5 mL subcutaneou s pen injector 11/12 completed Not Available Not Available Not Available Vitals Date Recorded Body height Body mass index (BMI) Body weight Oxygen saturation Oxygen saturation in Arterial blood by Pulse oximetry Heart rate Respiratory rate Systolic blood pressure Diastolic blood pressure Provider Name and Address Organization Details Last Updated DateTime 4 182.88 cm 39.7 kg/m2 508621. 56 g 97 % 97 % 86 /min 16 /min 143 mm[Hg] 80 mm[Hg] Linda Singh MA [facility] 4 14:01:38 Date Recorded Systolic blood pressure Diastolic blood pressure Provider Name and Address Organization Details Last Updated DateTime 11/24/2023 150 mm[Hg] 90 mm[Hg] DAKOTAH FARIA Attn: Accounting,[address] [facility], [place], [address], [facility] 11/24/2023 14:19:33 Date Recorded Body height Body mass index (BMI) Body weight Body temperature Heart rate Systolic blood pressure Diastolic blood pressure Provider Name and Address Organization Details Last Updated DateTime 4 182.88 cm 39.7 kg/m2 258427. 56 g 98.7 [degF] 67 /min 136 mm[Hg] 74 mm[Hg] Alexandra Brock MA [facility] 4 12:07:55 Date Recorded Body height Body mass index (BMI) Body weight Body temperature Heart rate Oxygen saturation Oxygen saturation in Arterial blood by Pulse oximetry Systolic blood pressure Diastolic blood pressure Provider Name and Address Organization Details Last Updated DateTime 4 182.88 cm 39.2 kg/m2 209943. 84 g 97.3 [degF] 79 /min 99 % 99 % 156 mm[Hg] 99 mm[Hg] Jeanie Goodsonborn [facility] 4 15:29:40 Date Recorded Body height Body mass index (BMI) Body weight Heart rate Respiratory rate Body temperature Oxygen saturation Oxygen saturation in Arterial blood by Pulse oximetry Systolic blood pressure Diastolic blood pressure Provider Name and Address Organization Details Last Updated DateTime 5 182.88 cm 36.6 kg/m2 742969. 58 g 68 /min 18 /min 97.5 [degF] 99 % 99 % 120 mm[Hg] 77 mm[Hg] Rimma Marie MA [facility] 5 11:44:05 Social History Question Answer Notes LastModified by Organizat ion Details LastModified Time Tobacco Smoking Status Never Smoker Linda Singh MA null, [facility] 09/11/2022 14:01:23 What Is Your Level Of Alcohol Consumption? Occasional [email or web address] Information not available 09/11/2022 What Is Your Level Of Caffeine Consumption? Occasional [email or web address] Information not available 09/11/2022 In The 14 Days Before Symptom Onset, Have You Had Close Contact With A Laboratory-confir med COVID-19 While That Case Was Ill? No [email or web address] Information not available 09/11/2022 In The 14 Days Before Symptom Onset, Have You Had Close Contact With A Person Who Is Under Investigation For COVID-19 While That Person Was Ill? No Information not available 09/11/2022 Have You Been To An Area Known To Be High Risk For COVID-19? No [email or web address] Information not available 09/11/2022 Do You Or Have You Ever Used E-cigarettes Or Vape? Current User Of Electronic Cigarettes [email or web address] Information not available 11/24/2023 Are There Any Guns Present In Your Home? No [email or web address] Information not available 09/11/2022 What Was The Date Of Your Most Recent Tobacco Screening? 04/10/2024 Information not available 04/10/2024 Do You Have Smoke And Carbon Monoxide Detectors In Your Home? Yes [email or web address] Information not available 09/11/2022 Are You Passively Exposed To Smoke? No [email or web address] Information no t available 09/11/2022 Do You Use Any Illicit Or Recreational Drugs? No [email or web address] Information not available 09/11/2022 Do You Use Sunscreen Routinely? No [email or web address] Information not available 09/11/2022 Has Tobacco Cessation Counseling Been Provided? Yes [email or web address] Information not available 09/11/2022 On What Date Was Tobacco Cessation Counseling Provided? 04/10/2024 Information not available 04/10/2024 Do You Or Have You Ever Used Any Other Forms Of Tobacco Or Nicotine? Yes [email or web address] Information not available 11/24/2023 Sex: Male Functional Status None recorded. Mental Status None recorded. Family History Relationship Description Onset Age of this Age Resolved Age Notes LastModified by Organization Details LastModified Time Paternal Grandfather Hypertensive disorder [email or web address] Not available 2022 14:00:53 Paternal Grandmother Diabetes mellitus [email or web address] Not available 2022 14:01:01 Medical History Condition Response Coronary Artery Disease N Other N Atrial Fibrillation N High Blood Pressure N Thyroid Problems N Kidney or Bladder Problems N Depression N COPD N Blood Clots N GI Problems N Skin Problems N Eating Disorder N Anemia N Heart Attack (AK) N Diabetes N Anxiety Disorder N Muscle, Joint, or Bone Problems N Seizures/Epilepsy N Acid Reflux (GERD) N Cancer N Stroke N Allergies N Asthma N ADHD N Substance Abuse N High Cholesterol N Hepatitis N Liver Disease N Schizophrenia N Headaches N Osteoporosis N Heart Failure N Past Encounters Encounter ID Performer Location Encounter Start Date Encounter Closed Date Diagnosis/Indication Diagnosis SNOMED-CT Code Diagnosis ICD10 Code Diagnosis Note [id number] DAKOTAH FARIA [facility] [address] [place] [address] 09/11/2022 13:54:07 09/11/2022 14:47:51 Mixed anxiety and depressive disorder 972307602 F41.8 PHQ 5GAD 6discussed medication and counseling pt would like to try anxiety medication , aware of ADRf/u in 1 mo Essential hypertension 71881861 I10 BP 150/110, 160/114too k at [facility], 150/100asx start lisinopril 40advised to check BP at home, goal BP <130/80, f/u with BP log in 1 wk Morbid obesity 632926343 E66.01 BMI 46.4pre diabetic in the pasthas tried diets and exercising w/o successdif ficulty losing weightwant s to try mounjaro with discount card, advised pt of ADRa1c 5.0 Nasal congestion 2944998 0 R09.81 tried OTC allergy meds w/o relieftria l singulairi f no relief will refer to administrative library assistant [id number] DAKOTAH FARIA [facility] [address] [place] [address] 11/16/2022 12:19:06 11/16/2022 13:47:30 Morbid obesity 861700858 E66.01 11/16/22:lo st 12 lbs since last visit 09/11/22:BM I 46.4pre diabetic in the pasthas tried diets and exercising w/o successdif ficulty losing weightwant s to try mounjaro with discount card, advised pt of ADRa1c 5.0 Mixed anxi ety and depressive disorder 621666746 F41.8 11/16/22:PH Q 11GAD 13mild improvemen t with buspirone, would like to increase dosetrial buspirone 15 mg BIDf/u if sx do not improve with increased doserefer to counseling at [facility] 09/11/22:PH Q 5GAD 6discussed medication and counseling pt would like to try anxiety medication , aware of ADRf/u in 1 mo Essential hypertension 06596614 I10 11/16/22:BP today 132/86not taking lisinopril , checking BP at home 110s-130s/ 70-80s 09/11/22:BP 150/110, 160/114too k at [facility], 150/100asx start lisinopril 40advised to check BP at home, goal BP <130/80, f/u with BP log in 1 wk [id number] DAKOTAH FARIA [facility] [address] [place] [address] 04/19/2023 12:29:48 04/19/2023 13:22:39 Pharyngitis 388296816 J02.9 strep negative Productive cough-yellow sputum 446567596 R09.3 COVID and RSV negative Bacterial upper respiratory infection 089325069 A49.9 COVID 2 wks ago with symptoms improvings x re-occurre d 2 days agono relief with OTC medsVSSPEx - middle ear fluid bilaterall y, mild erythema to oropharynx strep, COVID, RSV negativelo ng COVID vs bacterial URIwill treat with abxdiscuss ed with pt if sx do not improve with abx, most likely viral and continue to treat with OTC meds- Drink lots of fluids, water, gatorade.- Run a cool-mist humidifier in your room at night.- For sore throat, gargle warm salt water.- Get extra rest and do not over-exert yourself.- Robitussin DM at bed time only (if cough keeps you awake) (and if not or on SSRI antidepres sants. Allergic rhinitis 006147 04 J30.9 tried singulairo n zyrtec and flonase PRN w/o reliefrefe r to administrative library assistant [id number] Lynnette Ibanez CMA [facility] [address] [place] [address] 07/22/2023 12:01:00 07/28/2023 08:24:46 Dysuria 14768348 R30.0 [id number] DAKOTAH FARIA [facility] [address] [place] [address] 11/24/2023 13:50:33 11/24/2023 14:25:41 Essential hypertension 49393427 I10 11/24/23: BP 143/80, 150/90stat es that BP was normal in EDadvised to check BP at home, goal BP <130/80, f/u with BP log in 1 wk 11/16/22:BP today 132/86not taking lisinopril , checking BP at home 110s-130s/ 70-80s 09/11/22:BP 150/110, 160/114too k at [facility], 150/100asx start lisinopril 40advised to check BP at home, goal BP <130/80, f/u with BP log in 1 wk Gastroesop hageal reflux disease without esophagitis 166022962 K21.9 belching and heart burn x3 days, took TUMS w/ reliefc/o sharp, stabbing epigastric pain x5 daysadmits to eating spicy foods frequently went to ER and was given pantoprazo le, pain has been controlled continue pantoprazo le 40pt requesting GI referral Depression screening 171 800558 Z13.31 0 Obesity 663583336 E66.9 discussed increasing exercise and healthier food options, high protein, low fat dietpt has lost 42 lbs since 04/2023 [id number] ADELITA CLAIRE [facility] [address] [place] [address] 12/14/2023 11:48:43 12/16/2023 11:31:01 Excessive belching 265715291 R14.2 Gastritis 3082247 K29.70 No epigastric or LUQ tenderness on today's exam. Discussed EGD to eval for possible ulceration . Patient has elected to defer at this time. Will rule out H. pylori today. Patient to continue consistent pantoprazo le daily x 4-6 weeks. If no improvemen t, can reconsider EGD evaluation . Patient is in agreement with this plan. [id number] ADELITA CLAIRE [facility] [address] [place] [address] 04/10/2024 15:17:07 04/12/2024 09:52:11 Excessive belching 878426699 R14.2 await H pylori results and continue daily PPI Gastritis 8959691 K29.70 Patient to continue consistent pantoprazo le daily x 4-6 weeks. If no improvemen t, can reconsider EGD evaluation . History of Helicobacter pylori infection 8420795770 9263636 Z86.19 completed clarithrom ycin triple therapy in December 2023.Eradi cation testing [id number] ADELITA CLAIRE [facility] [address] [place] [address] 08/10/2024 11:25:05 08/10/2024 14:40:54 Constipation 47110334 K59.00 Minimal relief with docusate sodium 100 mg BID with miralax. Patient to try either senna with docusate or lactulose. Both prescripti ons sent to pharmacy to see which option is more affordable via patient's insurance. Delayed ga stric emptying 880628989 K30 likely 2/2 ozempic use. Discussed with patient that there's a small percentage some patient's experience irreversib le symptoms. History of Helicobacter pylori infection 8146961105 7417603 Z86.19 completed clarithrom ycin triple therapy in December 2023.Eradi cation testing 04/10/2024: negative.P atient requesting repeat testing. Health Concerns Section Related Observation LastModified by Organization Detai ls LastModified Time None Recorded Concern Status LastModified by Organization Details LastModified Time None Recorded Advance Directives Directive None Recorded Payers Encounter Date Sequence Insurance Name Policy Number Policy Barrientos Covered Member ID Barrientos Member ID Guarantor Name 07/22/[address] [facility] - DOS ON OR AFTER 21 (MEDICAID REPLACEMENT - HMO) Erick Triana [id number] Erick Garcialivan 11/24/[address] [facility] - DOS ON OR AFTER 21 (MEDICAID REPLACEMENT - HMO) Erick Garcialivan [id number] Erick Triana 12/14/[address] [facility] - DOS ON OR AFTER 21 (MEDICAID REPLACEMENT - HMO) Erick Garcialivan [id number] Erick Garcialivan 04/10/[address] [facility] - DOS ON OR AFTER 21 (MEDICAID REPLACEMENT - HMO) Erick Garcialivan [id number] Erick Garcialivan 08/10/[address] [facility] - DOS ON OR AFTER 21 (MEDICAID REPLACEMENT - HMO) Erick Garcialivan [id number] Erick Garcialivan Notes Date Note Type Note Provider Name and Address Organization Details Recorded Time 11/24/2023 text/html Erick is a 23 y/ [...] vomiting, diarrhea, constipation. DAKOTAH FARIA Attn: Accounting,[address] [place], [address], [facility] 11/24/2023 19:50:51 12/14/2023 text/html Patient presents today [...] having eaten. ADELITA CLAIRE [address], [place], [address], [facility] 12/14/2023 12:26:21 04/10/2024 text/html Patient presents today for follow up on H pylori infection. Was treated with triple therapy in December 2023. Symptoms have improved some, but still has a lot of belching. Rarely drinks alcohol or carbonated beverages. ADELITA CLAIRE [address], [place], [address], [facility] 04/10/2024 15:48:09 08/10/2024 text/html Patient presents today for follow up. States he started taking ozempic injections purchased from an online clinic x 2 months. States he experienced brain fog, nausea, vomiting, loss of appetite, and abdominal pain. Stopped taking the injections 3-4 weeks ago and now experiencing constipation. Has been to the ER four times from 07/28/24-08/08/2024. CT scans unremarkable. Tried magnesium citrate in the past which helped. Was discharged home with docusate sodium 100 mg BID. States wasn't providing much relief, so he added miralax and still feeling constipated. Patient also concered for recurrent H pylori infection. ADELITA CLAIRE [address], [place], [address], [facility] 08/10/2024 12:20:52
--- OUTSIDE RECORDS SUMMARY | 2024-08-12 05:17 | XMS_ITS | Encounter Summary ---
Author Organization [facility] Address [address] [facility] [address] Care Team Providers Care Assistant Manager Trainee Name Role Phone Godfrey Curry MD Primary Care Provider Dipika Reddy MD Unavailable [phone] Encounter Details Date Type Department Care Team (Late st Contact Info) Description 11/12/2017 Orders Only [facility] - [address] [address] Jose Rafael Thompson MD [address] [place] [phone] Elevated liver enzymes Social History Tobacco Use [...] NEEDLE PLACEMENT (01/20/2018 11:12 AM CDT) Narrative [facility] - 01/21/2018 9:35 AM CDT No Dictation. Jose Rafael Thompson MD US ORDERABLES [facility] [address] [place] [address] documented in this encounter Visit Diagnoses Diagnosis Elevated liver enzymes- Primary Nonspecific elevation of levels of transaminase or lactic acid dehydrogenase (LDH) documented in this encounter Care Teams Assistant Manager Trainee Relationship Specialty Start Date End Date Labarge, Godfrey Zapata MD [address] [place] [phone] PCP - General Pediatrics 05/01/14 Dipika Reddy MD [address] [place] [phone] Resident Student Resident 11/27/15 documented as of this encounter
--- OUTSIDE RECORDS SUMMARY | 2024-08-12 05:17 | XMS_ITS | Encounter Summary ---
Author Organization [facility] Address [address] [facility] [place] [address] Care Team Providers Care Good Humor Vendor Name Role Phone Godfrey Curry MD Primary Care Provider Dipika Reddy MD Unavailable Encounter Details Date Type Department Care Team (Latest Contact Info) Description 11/12/2017 9:56 AM CDT - 11/12/2017 11:59 PM CDT Hospital Encounter [facility] - Lab [address] [place] [address] Jose Rafael Thompson MD [address] [place] [address] Discharge Disposition: Home or Self Care Social [...] - 200 U/L 11/12/2017 11:39 AM CDT [facility] Blood BLOOD SPECIMEN / Unknown Lab Venipuncture / Unknown 11/12/2017 9:57 AM CDT 11/12/2017 10:52 AM CDT Jose Rafael Thompson MD LAB - CHEMISTRY HILDA MARIO [facility] [address] [place] [phone] documented in this encounter Visit Diagnoses Diagnosis Liver disorder- Primary Unspecified disorder of liver documented in this encounter Care Teams Good Humor Vendor Relationship Specialty Start Date End Date LabargeGodfrey MD [address] [place] [phone] PCP - General Pediatrics 05/01/14 Dipika Reddy MD [address] [place] [phone] Resident Student Resident 11/27/15 documented as of this encounter
--- OUTSIDE RECORDS SUMMARY | 2024-08-12 05:17 | XMS_ITS | Encounter Summary ---
Author Organization [facility] Address [address] [place] [address] Care Team Providers Care Final Canoe Inspector Name Role Phone Godfrey Curry MD Primary Care Provider [phone] Dipika Reddy MD Unavailable [phone] Reason for Visit * Reason Comments Ear Pain Right ear pain x 1 w koi. Patient states that it feels like there is water in my ear but I can't get it out . Reports green discharge and excessive wax buildup. Encounter Details Date Type Department Care Team (Late st Contact Info) Description 05/19/2018 3:41 PM CDT - 05/19/2018 4:28 PM CDT Emergency ER at [address] [address] Skin pustule; Middle ear effusion, right Discharge [...] 05/19/2018 3:2 5 PM CDT Growth Chart: [facility] (Boys, 2-2 0 Years) documented in this [...] Discharge Instructions * Discharge Instructions* Maureen Dobbs, INJECTION MOLDING MACHINE TENDER-COMMODITY MANAGEMENT SPECIALIST - 05/19/2018 4:19 PM CDT Images from [...] ask them during your visits. ?? Copyright [employer] 2018 Information is for End User's use only and may not be sold, redistributed or otherwise used for commercial purposes. All illustrations and images included in CareNotes?? are the copyrighted property of [employer] or [employer] The above information is an nutrition services aide only. It is not intended as [...] fluticasone propionate (FLONASE) 50 MCG/ACT nasal spray Lopez 1 spray into each nostril once daily [...] hours a day, from any computer, through [employer], the online version of our electronic medical record. If you would like to use this service, please call Cherise Mejias, Connectivity Coordinator, at . We appreciate the opportunity to care for your patients. If you would like additional information, please call the emergency department directly at . Sincerely, MARY KATE Caban Division of Emergency Medicine [facility], [place] [facility] [place]???S FIRST TRAUMA I DESIGNATED EMERGENCY DEPARTMENT Provider contact with the patient: 05/19/2018 16:13 Erick Triana [id number] [facility] EM[facility]GENCY [facility]PARTMENT History Chief Complaint Patient presents [...] fluticasone propionate (FLONASE) 50 MCG/ACT nasal spray Lopez 1 spray into each nostril once daily [...] propionate (FLONASE) 50 MCG/ACT nasal spray Sig: Lopez 1 spray into each nostril once daily [...] right documented in this encounter Care Teams Final Canoe Inspector Relationship Specialty Start Date End Date Godfrey Curry MD [address] [place] [phone] PCP - General Pediatrics 05/01/14 Dipika Reddy MD [address] [place] [phone] Resident Student Resident 11/27/15 documented as of this encounter
--- OUTSIDE RECORDS SUMMARY | 2024-08-12 05:17 | XMS_ITS | Clinical Summary ---
Author Organization [facility] Address [address] [place] [address] Care Team Providers Care Retread Builder Name Role Phone Godfrey Curry MD Primary Care Provider [phone] Dipika Reddy MD Unavailable [phone] Source Comments [facility],non-owned Affiliates and Associated Physician Practices is amultiple site organization consisting of ambulatory clinics and hospital sitesin [place], [place], [place] and [place]. This disclosure is being madepursuant to the Care Everywhere program and may not contain all information available regarding this patient. Last updated 18.[facility] Allergies No known active allergies Medications * [...] fluticasone propionate (FLONASE) 50 MCG/ACT nasal spray [place] 1 spray into each nostril once daily [...] 07/12/2015 Assessment & Plan (07/12/2015 5:00 PM SUSTAINABLE AGRICULTURE FACULTY): Assessment: Has had 4 days of cough, [...] and 20/50 (right). Plan: - Optometry referral [facility] (well child check) 11/02/2013 Assessment & [...] in 3 months if still living in [facility] - Lifestyle modifications reviewed including limiting sugar drinks and sweets. Increased physical activity - Consider referral to weight management clinic if does not move to [place] - Also may be text for teens eligible if still living in [facility] in a year Allergic rhinitis 05/19/2011 Assessment [...] Human Papilloma Virus Vaccine 08/08/2012, 012,07/24/2011 INFLUENZA VACCINE 08/17/2013,06/23/2011 INFLUENZA VACCINE, QUADR. (F LUZONE; FLULAVAL; [...] 07/24/2011, 03/19/2006, 01/19/2002, Additional history exists COVID-19 VACCINE ( season) 2024 INFLUENZA VACCINE (#1) 2024 5, 08/17/2013, 06/23/2011 DEPRESSION SCREENING 08/02/2024 12/04/2015 ZOSTER VACCINE (1 of 2) 2050 HIB VACCINE Completed 01/19/2002, 10/31, 2000 PNEUMOCOCCAL VACCINE Completed 01/19/2002, 01/17/2001, 2000, Additional history exists MENINGOCOCCAL VACCINE Aged Out 07/24/2011 No terri edgard eligible based on patient's age to complete this topic HPV VACCINE Completed 08/08/2012, 09/03, 07/24/2011 HEPATITIS B VACCINE Completed 12/04/2015, 01/19/2002, 2000, Additional history exists HEPATITIS C SCREENING Completed 11/12/2017 MENINGOCOCCAL (Group B) VACCINE Aged Out No longer eligible based on patient's age to complete this topic Procedures Procedure Name Priority Date/Time Associated Diagnosis Comments HEPATITIS SCREEN ACUTE Routine 11/12/2017 9:57 AM CDT Liver disorder from Last 3 Months or Most Recently Relevant to Health Maintenance Results * HEPATITIS SCREEN ACUTE (11/12/2017 9:57 AM CDT) HAV Antibody IgM Non Reactive Non Reactive 11/12/2017 11:57 AM CDT [facility] HBsAg Non Reactive Non Reactive 11/12/2017 11:57 AM CDT [facility] HBc Antibody IgM Non Reactive Non Reactive 11/12/2017 11:57 AM CDT [facility] HCV Antibody Screen Non Reactive Non Reactive 11/12/2017 11:57 AM CDT [facility] HCV S/C Ratio 0.05 0.00 - 0.79 11/12/2017 11:57 AM CDT [facility] Comment: Pymgfw-wf-cxtbks ratio (S/CO) <0.80:?? Non Reactive Blood BLOOD SPECIMEN / Unknown Lab Venipuncture / Unknown 11/12/2017 9:57 AM CDT 11/12/2017 10:52 AM CDT Narrative [facility] - 11/12/2017 11:57 AM CDT Non Reactive - Antibodies to Hepatitis C virus (HCV) were not detected, result does not exclude early acute HCV infection. Jose Rafael Thompson MD LAB - CHEMISTRY HILDA MARIO [facility] Organization Address City/State/[facility] Co de Phone Number [facility] [place] [address] from Last 3 Months or Most Recently Relevant to Health Maintenance Care Teams Retread Builder Relationship Specialty Start Date End Date LabargeGodfrey MD [address] [place] [phone] PCP - General Pediatrics 05/01/14 Dipika Reddy MD [address] [place] [phone] Resident Student Resident 11/27/15
--- OUTSIDE RECORDS SUMMARY | 2024-08-12 05:17 | XMS_ITS | Encounter Summary ---
Author Organization [facility] Address [address] [place] [address] Care Team Providers Care Talent Acquisition Administrator Name Role Phone Godfrey Curry MD Primary Care Provider Dipika Reddy MD Unavailable Reason for Visit * Auth/Cert Specialty Diagnoses / Procedures Referred By Contac t Referred To Contact Diagnoses Elevated liver enzymes Elevated liver enzymes [R74.8] Procedures BIOPSY LIVER (NEEDLE/PERCUTANEOUS) Referral ID Status Reason Start Date Expiration Date Visits Re quested Visits Authorized [id number] 1 1 Encounter Details Date Type Department Care Team (Late st Contact Info) Description 01/20/2018 10:45 AM CDT - 01/20/2018 11:45 AM CDT Surgery [facility] - Endoscopy [address] [place] [address] Jose Rafael Thompson MD [address] [place] [address] BIOPSY LIVER (NEEDLE/PERCUTANEOUS) Surgery Details Date/Time Status [...] 01/20/2018 9:0 1 AM CDT Growth Chart: [facility] (Boys, 2-2 0 Years) documented in [...] SURGERY DISCHARGE SUMMARY Patient ID: Erick Triana [id number] y.o. 2000 Discharge Date: 01/20/2018 Discharge [...] 24 hours. When to call provider Call application architect GI if you have questions or concerns. [...] any worsening of their condition, please phone [phone] and ask for the doctor application architect for GI or return to the Emergency [...] (Z= 2.60) based on CDC 2-20 Years wgdrvv-znb-nuy data using vitals from 01/20/2018. BP 117/75 [...] Abdomen: Soft, nontender, nondistended. No organomegaly noted. STAFFING RECRUITER: No apparent focal deficits. Extremities: Warm, well [...] - 16.0 gm/dL 01/20/2018 3:10 PM CDT [facility] Hematocrit 41.5 37.0 - 49.0 % 01/20/2018 3:10 PM CDT [facility] Blood BLOOD SPECIMEN / Unknown Venipuncture / Unknown 01/20/2018 2:51 PM CDT 01/20/2018 3:03 PM CDT Jose Rafael Thompson MD LAB - HEMATOLOGY ORD ERABLES [facility] [address] [place] [address] * VIRAL CULTURE MISC (01/20/2018 10:58 AM CDT) Viral Culture No virus isolated. 01/28/2018 8:41 AM CDT [facility] ([facility]) Microbiology NEEDLE BIOPSY OF LIVER / Unknown Collection / Unknown 01/20/2018 10:58 AM CDT 01/20/2018 11:14 AM CDT Narrative [facility] ([facility]) - 01/28/2018 8:41 AM CDT Performed at: ??01 - [facility] [address] ??[id number] Health Care Aide: Wesley Jose MD, Phone: ??[phone] Jose Rafael Thompson MD LAB - MICROBIOLOGY [facility] Performing Organization Address City/State/[facility] Co de Phone Number [facility] ([facility]) [address] [place] [address] * GROSS + MICRO EXAM (STL) (01/20/2018 10:36 AM CDT) Case Report Surgical Pathology Report ? Case: [id number] ? Authorizing Provider: ??Jose Rafael Thompson MD ? Collected: ? 01/20/2018 10:36 AM ? Ordering Location: ? [facility] ?Received: ?01/20/2018 11:34 AM ? Pathologist: ? Judie Childs MD ? Specimen: ?Liver Needle Biopsy, please run ?EM on this specimen ? 01/21/2018 4:03 PM [facility] Final Diagnosis Liver, needle biopsy (A): - Mild steatosis and lobular inflammation - No fibrosis 01/21/2018 4:03 PM [facility] Clinical History The patient is a 17-year-old boy with elevated liver enzymes who underwent liver biopsy to rule out non-alcoholic steatohepatitis (RUTLEDGE). 01/21/2018 4:03 PM [facility] Gross Description Submitted fixed in formalin [...] possible electron microscopy. (CT/me) 01/21/2018 4:03 PM [facility] Microscopic Description 2 H&E slides; special [...] of condensation. The PASD is negative for iyewm-4-yxjmgxragju gobules but shows focal pigmented macrophages. The [...] non alcoholic steatohepatitis (RUTLEDGE). 01/21/2018 4:03 PM [facility] Disclaimer The performance characteristics of all immunohistochemical and indirect immunofluorescence stains (if any) cited in this report were determined by the Histopathology Laboratory of [facility]. Some of these tests were developed by [...] attending (teaching) pathologist. 01/21/2018 4:03 PM T [facility] Embedded Images 01/21/2018 4:03 PM T [facility] Pathology/Cytolo gy NEEDLE BIOPSY OF LIVER / Unknown 01/20/2018 10:36 AM CDT 01/20/2018 11:34 AM CDT Jose Rafael Thompson MD LAB - PATHOLOGY/CYTO LOGY ORDERABLES Performing Organization Address [facility] Co de Phone Number [facility] [address] [place] [address] * BLOOD TYPE VERIFICATION (01/20/2018 10:36 AM CDT) ABO A 01/20/2018 10:43 AM CDT [facility] Rh Type Positive 01/20/2018 10:43 AM T [facility] Blood Bank BLOOD SPECIMEN / Unknown Lab Venipuncture / Unknown 01/20/2018 10:36 AM CDT 01/20/2018 10:37 AM CDT Jose Rafael Thompson MD LAB - BLOOD BANK ORD ERABLES Performing Organization Address City/[facility]/ZIP Co de Phone Number [facility] [address] [place] [address] * NEEDLE BIOPSY, LIVER (01/20/2018 9:30 AM CDT) Report Endoscopy POC _ Patient Name: Erick Triana ? Date of : 2000 ? Admit Type: Outpatient Age: 17 ? Gender: Male Attending MD: Jose Rafael Thompson MD ?Order #: [id number] _ Procedure: ? Liver biopsy Indications: ? [...] Procedure Code(s): ? --- Professional --- ? 54788, Biopsy of liver, needle; percutaneous ? 62293, Ultrasonic guidance for needle placement (eg, biopsy, aspiration, ? injection, localization device), imaging supervision and interpretation ? --- Technical --- ? 48774, Biopsy of liver, needle; percutaneous ? 83572, Ultrasonic guidance for needle placement (eg, biopsy, aspiration, ? injection, localization device), imaging supervision and interpretation Diagnosis Code(s): ? --- Professional --- ? R74.9, Abnormal serum enzyme level, unspecified ? --- Technical --- ? R74.9, Abnormal serum enzyme level, unspecified CPT copyright 2015 [employer]. All rights reserved. The codes documented in this report are preliminary and upon supervisor special services review may be revised to meet current compliance requirements. Dr. Jose Rafael Thompson Jose Rafael Thompson MD 01/20/2018 11:15:04 AM This report has been signed electronically. Number of Addenda: 0 Note Initiated On: 01/19/2018 9:30 AM Procedure Date: ? 01/20/2018 9:30:00 AM ? This report has been signed electronically. [facility] 01/20/2018 9:30 AM CDT Jose Rafael Thompson MD GI PROCEDURE ORDERAB LES Performing Organization Address City/State/[facility] Co de Phone Number [facility] [address] [place] [address] * PREPARE (CROSSMATCH) RBC UNIT(S), 1 Units (01/20/2018 9:15 AM CDT) Product Code [id number] [facility] Unit Donor # [id number] C [facility] ABO Donor Type A [facility] Rh Type Unit POS [facility] Unit Status Ret'd [facility] ABO Rh Type Unit APOS [facility] Donor Unit Expiration Date [id number] [facility] Blood Type Barcode [address] [facility] Blood Bank BLOOD SPECIMEN / Unknown 01/20/2018 9:15 AM CDT Jose Rafael Thompson MD LAB - BLOOD BANK ORD ERABLES Performing Organization Address [facility]/ZIP Co de Phone Number [facility] [address] [place] [phone] * TYPE + SCREEN PANEL (01/20/2018 9:09 AM CDT) ABO A 01/20/2018 10:42 AM CDT [facility] Rh Type Positive 01/20/2018 10:42 AM CDT [facility] Comment:History checked. Antibody Screen Negative 01/20/2018 10:42 AM CDT [facility] Blood Bank BLOOD SPECIMEN / Unknown Venipuncture / Unknown 01/20/2018 9:09 AM CDT 01/20/2018 9:30 AM CDT Jose Rafael Thompson MD LAB - BLOOD BANK ORD ERABLES Performing Organization Address [facility] Co de Phone Number [facility] [address] [place] [phone] * (ABNORMAL) PT PTT PANEL (01/20/2018 9:09 AM CDT) PT 11.7(H) 9.5 - 11.6 sec 01/20/2018 10:12 AM CDT [facility] INR 1.1 0.9 - 1.1 01/20/2018 10:12 AM CDT [facility] PTT 24.5 21.0 - 32.0 sec 01/20/2018 10:12 AM CDT [facility] Blood BLOOD SPECIMEN / Unknown Venipuncture / Unknown 01/20/2018 9:09 AM CDT 01/20/2018 9:31 AM CDT Narrative [facility] - 01/20/2018 10:12 AM CDT Conventional Warfarin Anticoagulant Therapy: INR Reference Range: ??2.0-3.0 Intensive Warfarin Anticoagulant Therapy: INR Reference Range: ? 2.5-3.5 Heparin Therapeutic Range for PTT: 47.7 - 68.6 seconds. Jose Rafael Thompson MD LAB - COAGULATION OR DERABLES [facility] [place] [address] * (ABNORMAL) CBC W AUTO DIFFERENTIAL (01/20/2018 9:09 AM CDT) WBC 8.5 4.5 - 11.0 x10E9/L 01/20/2018 9:42 AM CDT [facility] WBC Corrected x10E9/L 01/20/2018 9:42 AM CDT [facility] RBC 6.07(H) 4.50 - 5.30 x10E12/L 01/20/2018 9:42 AM CDT [facility] Hemoglobin 16.3(H) 13.0 - 16.0 gm/dL 01/20/2018 9:42 AM CDT [facility] Hematocrit 47.4 37.0 - 49.0 % 01/20/2018 9:42 AM CDT [facility] MCV 78.1 78.0 - 98.0 fl 01/20/2018 9:42 AM CDT [facility] MCH 26.9 25.0 - 35.0 pg 01/20/2018 9:42 AM CDT [facility] MCHC 34.4 31.0 - 37.0 gm/dL 01/20/2018 9:42 AM CDT [facility] Platelet Count 310 100 - 400 x10E9/L 01/20/2018 9:42 AM CDT [facility] RDW-CV 12.8 11.5 - 14.0 % 01/20/2018 9:42 AM CDT [facility] MPV 10.5(H) 6.0 - 9.5 fl 01/20/2018 9:42 AM CDT [facility] Neutrophils % 49.3 31.0 - 78.0 % 01/20/2018 9:42 AM CDT [facility] Lymphocytes % 36.9 13.0 - 54.0 % 01/20/2018 9:42 AM CDT [facility] Monocytes % 7.8 4.0 - 13.0 % 01/20/2018 9:42 AM CDT [facility] Eosinophils % 4.6 0.0 - 8.0 % 01/20/2018 9:42 AM CDT [facility] Basophils % 0.7 % 01/20/2018 9:42 AM CDT [facility] Immature Granulocytes 0.7 % 01/20/2018 9:42 AM CDT [facility] Neutrophil Absolute 4.17 x10E9/L 01/20/2018 9:42 AM CDT [facility] Lymphocytes Absolute 3.12 x10E9/L 01/20/2018 9:42 AM CDT [facility] Monocytes Absolute 0.66 x10E9/L 01/20/2018 9:42 AM CDT [facility] Eosinophils Absolute 0.39 x10E9/L 01/20/2018 9:42 AM CDT [facility] Basophils Absolute 0.06 x10E9/L 01/20/2018 9:42 AM CDT [facility] Immature Granulocytes Absolute 0.06 x10E9/L 01/20/2018 9:42 AM T [facility] nRBC Auto 0 /100 WBC 01/20/2018 9:42 AM T [facility] Blood BLOOD SPECIMEN / Unknown Venipuncture / Unknown 01/20/2018 9:09 AM CDT 01/20/2018 9:30 AM CDT Jose Rafael Thompson MD LAB - HEMATOLOGY ORD ERABLES Performing Organization Address City/State/[facility] Co de Phone Number [facility] [address] [place] [address] documented in this encounter Visit [...] PACU documented in this encounter Care Teams Talent Acquisition Administrator Relationship Specialty Start Date End Date Labarge, Godfrey Zapata MD [address] [place] [phone] PCP - General Pediatrics 05/01/14 Dipika Reddy MD [facility] [place] [phone] Resident Student Resident 11/27/15 documented as of this encounter
--- OUTSIDE RECORDS SUMMARY | 2024-08-12 05:17 | XMS_ITS | Encounter Summary ---
Author Organization [facility] Address [address] [place] [address] Care Team Providers Care Investment Advisor Name Role Phone Godfrey Curry MD Primary Care Provider Dipika Reddy MD Unavailable Reason for Visit * Reason Comments Chest [...] 10/25/2018 9:07 PM CDT Emergency ER at [address] [address] Shane Marquez MD [address] [place] [address] Other chest pain; Palpitations Discharge Disposition: [...] may need to follow up with a child care specialist.You may need more tests to check for [...] and want help to quit. ?? Copyright [employer] 2019 Information is for End User's use only and may not be sold, redistributed or otherwise used for commercial purposes. All illustrations and images included in CareNotes?? are the copyrighted property of [employer] or [employer] The above information is an rehab aid only. It is not intended as medical [...] fluticasone propionate (FLONASE) 50 MCG/ACT nasal spray [place] 1 spray into each nostril once daily [...] CDT Patient discharged in stable condition with [facility]. Instructions provided with verbalized understanding. * Shane Marquez MD - 10/25/2018 8:10 PM CDT Provider contact with the patient: 10/25/2018 8:10 PM [facility] EMERGENCY [facility]PARTMENT Erick Triana [id number] History Chief Complaint Patient presents with ??? Chest Pain chest pain off and on for 4 days - not taking any medication for it. Feels like heart is flutteringper pt. Sharp pain that comes and goes. Denies any pain at this time. Chief complaint narrative was entered by triage nurse, not by physician. I have read the resident/medical student/SCREEN HANDLER history. Unless appended by me below, I [...] all negative except as noted in resident/medical student/SCREEN HANDLER and attending HPI/ROS. Constitutional: No activity change, [...] Physical Exam I have reviewed the resident/medical student/SCREEN HANDLER physical exam. Unless appended by me below, [...] patient to follow-up with: Godfrey Curry MD [address] [place] [id number] [address] Disposition: Discharged 10/25/2018 8:51 PM Scribe Attestation [...] hours a day, from any computer, through [employer], the online version of our electronic medical record. If you would like to use this service, please call Cherise Mejias, Connectivity Coordinator, at . We appreciate the opportunity to care for your patients. If you would like additional information, please call the emergency department directly at . Sincerely, Shauna Robles MD Division of Emergency Medicine [facility], [place] [facility] [place] TRAU[facility] I DESIGNATED EMERGENCY DEPARTMENT Provider contact with the patient: 10/25/2018 19:39 Erick Triana [id number] [facility] EM[facility] History Chief Complaint [...] fluticasone propionate (FLONASE) 50 MCG/ACT nasal spray [place] 1 spray into each nostril once daily [...] (Bezet) 424 ms CG MUSE Calculated P [place] 23 degrees CG MUSE Calculated R [place] -17 degrees CG MUSE Calculated T [place] 22 degrees CG MUSE Interpretation EKG Normal sinus rhythm with sinus arrhythmia Leftward axis No previous ECGs available Confirmed by MICHELET FABIAN ([id number]) on 11/01/2018 12:17:17 PM CG MUSE 10/25/2018 [...] Palpitations documented in this encounter Care Teams Investment Advisor Relationship Specialty Start Date End Date Labarge, Godfrey Zapata MD [address] [place] [phone] PCP - General Pediatrics 05/01/14 Dipika Reddy MD [address] [place] [phone] Resident Student Resident 11/27/15 documented as of this encounter
--- OUTSIDE RECORDS SUMMARY | 2024-08-12 05:17 | XMS_ITS | Encounter Summary ---
Author Organization [facility] Address [address] [facility] [place] [address] Care Team Providers Care Hand Spring Repairer Helper Name Role Phone Godfrey Curry MD Primary Care Provider Dipika Reddy MD Unavailable Reason for Visit * Reason Onset Date Comments Update 01/17/2018 Encounter Details Date Type Department Care Team (Late st Contact Info) Description 01/17/2018 Telephone [facility] Pediatrics - [address] [address] Jose Rafael Thompson MD [address] [place] [address] Update Social History Tobacco Use Types Packs/Day [...] on filedocumented in this encounter Care Teams Hand Spring Repairer Helper Relationship Specialty Start Date End Date Labarge, Godfrey Zapata MD [facility] [place] [address] PCP - General Pediatrics 05/01/14 Dipika Reddy MD [address] [place] [address] Resident Student Resident 11/27/15 documented as of this encounter
--- OUTSIDE RECORDS SUMMARY | 2024-08-12 05:17 | XMS_ITS | Encounter Summary ---
Author Organization [facility] Address [address] [facility] [place] [address] Care Team Providers Care Rapid Transit Operator Name Role Phone Godfrey Curry MD Primary Care Provider [phone] Dipika Reddy MD Unavailable [phone] Reason for Visit * Reason Onset Date Comments Scheduling 12/06/2017 Encounter Details Date Type Department Care Team (Late st Contact Info) Description 12/06/2017 Telephone [facility] Pediatrics - GI [address] [facility] [place] [address] Valencia Betts Scheduling Social History Tobacco Use [...] on filedocumented in this encounter Care Teams Rapid Transit Operator Relationship Specialty Start Date End Date Godfrey Curry MD [facility] [place] [address] PCP - General Pediatrics 05/01/14 Dipika Reddy MD [facility] [place] [address] Resident Student Resident 11/27/15 documented as of this encounter
--- OUTSIDE RECORDS SUMMARY | 2024-08-12 05:17 | XMS_ITS | Encounter Summary ---
Author Organization [facility] Address [address] [facility] [place] [address] Care Team Providers Care Planer Feeder Name Role Phone Godfrey Curry MD Primary Care Provider Dipika Reddy MD Unavailable Reason for Visit * Reason Onset Date Comments Results 01/23/2018 Encounter Details Date Type Department Care Team (Late st Contact Info) Description 01/23/2018 Telephone [facility] [address] [place] [address] Jose Rafael Thompson MD [address] [place] [address] Results Social History Tobacco Use Types Packs/Day [...] on filedocumented in this encounter Care Teams Planer Feeder Relationship Specialty Start Date End Date Godfrey Curry MD [address] [place] [phone] PCP - General Pediatrics 05/01/14 Dipika Reddy MD [address] [place] [phone] Resident Student Resident 11/27/15 documented as of this encounter
--- OUTSIDE RECORDS SUMMARY | 2024-08-12 05:17 | XMS_ITS | Encounter Summary ---
Author Organization [facility] Address [address] [place] [address] Care Team Providers Care Foam Molder Name Role Phone Godfrey Curry MD Primary Care Provider Dipika Reddy MD Unavailable Reason for Visit * Reason Onset Date Comments Concerns 02/03/2019 Encounter Details Date Type Department Care Team (Late st Contact Info) Description 02/03/2019 Telephone [facility] Pediatrics - [facility] Pediatrics [address] [place] [address] Godfrey Curry MD [address] [place] [phone] Concerns Social History Tobacco Use Types [...] a provider please call her back at [phone] Instructed that provider will call back at their earliest convenience. Jelly Moulton 1673 documented in this encounter Plan of Treatment Not on file documented as of this encounter Visit Diagnoses Not on filedocumented in this encounter Care Teams Foam Molder Relationship Specialty Start Date End Date Godfrey Curry MD [address] [place] [phone] PCP - General Pediatrics 05/01/14 Dipika Reddy MD [address] [place] [phone] Resident Student Resident 11/27/15 documented as of this encounter
--- OUTSIDE RECORDS SUMMARY | 2024-08-12 05:17 | XMS_ITS | Encounter Summary ---
Author Organization [facility] Address [address] [facility] [place] [address] Care Team Providers Care Supervisor Product Inspection Name Role Phone Godfrey Curry MD Primary Care Provider [phone] Dipika Reddy MD Unavailable Reason for Visit * Reason Onset Date Comments Concerns 01/14/2018 Encounter Details Date Type Department Care Team (Late st Contact Info) Description 01/14/2018 Telephone [facility] Pediatrics - Dermatology [address] [facility] [place] [address] Rani Solitario MD [address] [facility] [address] [place] [address] Concerns Social History Tobacco Use Types Packs/Day [...] on filedocumented in this encounter Care Teams Supervisor Product Inspection Relationship Specialty Start Date End Date Godfrey Curry MD [facility] [place] [address] PCP - General Pediatrics 05/01/14 Dipika Reddy MD [address] [place] [address] Resident Student Resident 11/27/15 documented as of this encounter
--- OUTSIDE RECORDS SUMMARY | 2024-08-12 05:17 | XMS_ITS | Encounter Summary ---
Author Organization [facility] Address [address] [facility] [place] [address] Care Team Providers Care Vapor Coater Name Role Phone Godfrey Curry MD Primary Care Provider [phone] Dipika Reddy MD Unavailable [phone] Reason for Visit * Reason Onset Date Comments MEDICATION REFILL 12/02/2017 Encounter Details Date Type Department Care Team (Late st Contact Info) Description 12/02/2017 Refill [facility] Pediatrics - Dermatology [facility] [place] [address] Mary Ellen Cornell RN MEDICATION REFILL Social [...] Center 12/17/2017 2:30 PM Elena Eugene PA-C [facility] 01/06/2018 10:30 AM [facility] 02/11/2018 10:45 AM Jose Rafael Thompson MD [facility] documented in this encounter Plan of Treatment Not on file documented as of this encounter Visit Diagnoses Not on filedocumented in this encounter Care Teams Vapor Coater Relationship Specialty Start Date End Date Godfrey Curry MD [address] [place] [phone] PCP - General Pediatrics 05/01/14 Dipkia Reddy MD [facility] [place] [address] Resident Student Resident 11/27/15 documented as of this encounter
--- OUTSIDE RECORDS SUMMARY | 2024-08-12 05:17 | XMS_ITS | Encounter Summary ---
Author Organization [facility] Address [address] [facility] [place] [address] Care Team Providers Care Product Ambassador Name Role Phone Godfrey uCrry MD Primary Care Provider [phone] Dipika Reddy MD Unavailable [phone] Reason for Visit * Reason Onset Date Comments Urinary Problem 11/21/2018 Encounter Details Date Type Department Care Team (Late st Contact Info) Description 11/21/2018 Telephone [facility] Pediatrics - [facility] Pediatrics [facility] [place] [address] Fide Lanza, RN Urinary Problem Social History [...] is currently in school. He lives in [place], [place]. I discussed with mom to go [...] filedocumented in this encounter Care Teams Product Ambassador Relationship Specialty Start Date End Date Godfrey Curry MD [address] [place] [address] PCP - General Pediatrics 05/01/14 Dipika Reddy MD [address] [place] [address] Resident Student Resident 11/27/15 documented as of this encounter
--- OUTSIDE RECORDS SUMMARY | 2024-08-12 05:17 | XMS_ITS | Referral Summary ---
Author Organization [facility] Address [address] [facility] [place] [address] Care Team Providers Care Medical Authorization Specialist Name Role Phone Godfrey Curry MD Primary Care Provider Dipika Reddy MD Unavailable [phone] Source Comments [facility],non-owned Affiliates and Associated Physician Practices is amultiple site organization consisting of ambulatory clinics and hospital sitesin [place], [place], [place] and [place]. This disclosure is being madepursuant to the Care Everywhere program and may not contain all information available regarding this patient. 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 Plan: - Optometry referral [facility] (well child check) 11/02/2013 Assessment & [...] in 3 months if still living in [place] [facility] - Lifestyle modifications reviewed including limiting sugar drinks and sweets. Increased physical activity - Consider referral to weight management clinic if does not move to [place] - Also may be text for teens eligible if still living in [facility] in a year Allergic rhinitis 05/19/2011 [...] Reactive Non Reactive 11/12/2017 11:57 AM CDT [facility] HBsAg Non Reactive Non Reactive 11/12/2017 11:57 AM T [facility] HBc Antibody IgM Non Reactive Non Reactive 11/12/2017 11:57 AM T [facility] HCV Antibody Screen Non Reactive Non Reactive 11/12/2017 11:57 AM T [facility] HCV S/C Ratio 0.05 0.00 - 0.79 11/12/2017 11:57 AM T [facility] Comment: Notodi-ka-wqrdjy ratio (S/CO) <0.80:?? Non Reactive Blood BLOOD SPECIMEN / Unknown Lab Venipuncture / Unknown 11/12/2017 9:57 AM CDT 11/12/2017 10:52 AM CDT Narrative [facility] - 11/12/2017 11:57 AM CDT Non Reactive - Antibodies to Hepatitis C virus (HCV) were not detected, result does not exclude early acute HCV infection. Jose Rafael Thompson MD LAB - CHEMISTRY HILDA MARIO [facility] [address] [place] [address] from Last 3 Months or Most Recently Relevant to Health Maintenance Care Teams Medical Authorization Specialist Relationship Specialty Start Date End Date LabargeGodfrey MD [address] [place] [phone] PCP - General Pediatrics 05/01/14 Dipika Reddy MD [address] [place] [phone] Resident Student Resident 11/27/15
--- OUTSIDE RECORDS SUMMARY | 2024-08-12 05:17 | XMS_ITS | Encounter Summary ---
Author Organization [facility] Address [address] [place] [address] Care Team Providers Care Mule Developer Name Role Phone Godfrey Curry MD Primary Care Provider Dipika Reddy MD Unavailable Reason for Visit * Reason Onset Date Comments Results 11/24/2017 Encounter Details Date Type Department Care Team (Late st Contact Info) Description 11/24/2017 Telephone [facility] Pediatrics - [address] [address] Jose Rafael Thompson MD [address] [place] [address] Results Social History Tobacco Use Types Packs/Day [...] on filedocumented in this encounter Care Teams Mule Developer Relationship Specialty Start Date End Date Labarge, Godfrey Zapata MD [address] [place] [phone] PCP - General Pediatrics 05/01/14 Dipika Reddy MD [address] [place] [phone] Resident Student Resident 11/27/15 documented as of this encounter
--- OUTSIDE RECORDS SUMMARY | 2024-08-12 05:17 | XMS_ITS | Encounter Summary ---
Author Organization [facility] Address [address] [place] [address] Care Team Providers Care Elastic Yarn Twister Helper Name Role Phone Godfrey Curry MD Primary Care Provider Dipika Reddy MD Unavailable Reason for Visit * Auth/Cert Specialty Diagnoses / Procedures Referred By Contac t Referred To Contact Diagnoses Elevated liver enzymes Elevated liver enzymes [R74.8] Procedures BIOPSY LIVER (NEEDLE/PERCUTANEOUS) Referral ID Status Reason Start Date Expiration Date Visits Re quested Visits Authorized [id number] 1 1 Encounter Details Date Type Department Care Team (Late st Contact Info) Description 01/20/2018 10:48 AM CDT Anesthesia Event [facility] - Endoscopy [address] [place] [address] Js Lang MD [facility]5 [place] [address] Alok Cisneros MD [address] [place], [place] [phone] Anesthesia Record Procedure Summary Procedure Name Responsible [...] results for input(s): HCG in the last [id number] hours. documented in this encounter Miscellaneous Notes [...] mL/hr documented in this encounter Care Teams Elastic Yarn Twister Helper Relationship Specialty Start Date End Date Labarge, Godfrey Zapata MD [facility] [place] [address] PCP - General Pediatrics 05/01/14 Dipika Reddy MD [address] [place] [address] Resident Student Resident 11/27/15 documented as of this encounter
--- OUTSIDE RECORDS SUMMARY | 2024-08-12 05:17 | XMS_ITS | Patient Health Summary ---
Author Organization [facility] Address [address] [place] [address] Care Team Providers Care 5Th Grade Teacher Name Role Phone Godfrey Curry MD Primary Care Provider [phone] Dipika Reddy MD Unavailable [phone] Note from [facility],non-owned Affiliates and Associated Physician Practices is amultiple site organization consisting of ambulatory clinics and hospital sitesin [place], [place], [place] and [place]. This disclosure is being madepursuant to the Care Everywhere program and may not contain all information available regarding this patient. Last updated 18.[facility] Allergies No known active allergies* Other,Inactive Medications [...] propionate (FLONASE) 50 MCG/ACT nasal spray(Started 05/19/2018) [place] 1 spray into each nostril once daily [...] Papilloma Virus Vaccine(Given 08/08/2012, 09/25/2011, 07/24/2011) * INFLUENZA VACCINE(Given 08/17/2013, 06/23/2011) * INFLUENZA VACCINE, QUADR. (FLUZONE; [...] BLOOD(Performed 11/12/2017) Performed for Liver disorder * [id number] BLOOD(Performed 11/12/2017) Performed for Liver disorder * [...] (Bezet) 424 ms CG MUSE Calculated P [place] 23 degrees CG MUSE Calculated R [place] -17 degrees CG MUSE Calculated T [place] 22 degrees CG MUSE Interpretation EKG Normal sinus rhythm with sinus arrhythmia Leftward axis No previous ECGs available Confirmed by MICHELET FABIAN ([id number]) on 11/01/2018 12:17:17 PM CG MUSE 10/25/2018 [...] - 16.0 gm/dL 01/20/2018 3:10 PM CDT [facility] Hematocrit 41.5 37.0 - 49.0 % 01/20/2018 3:10 PM CDT [facility] Blood BLOOD SPECIMEN / Unknown Venipuncture / Unknown 01/20/2018 2:51 PM CDT 01/20/2018 3:03 PM CDT Jose Rafael Thompson MD LAB - HEMATOLOGY ORD ERABLES [facility] [address] [place] [address] * US GUIDE NEEDLE PLACEMENT (01/20/2018 11:12 AM CDT) Narrative [facility] - 01/21/2018 9:35 AM CDT No Dictation. Jose Rafael Thompson MD US ORDERABLES [facility] [address] [place] [address] * VIRAL CULTURE MISC (01/20/2018 10:58 AM CDT) Viral Culture No virus isolated. 01/28/2018 8:41 AM CDT [facility] ([facility]) Microbiology NEEDLE BIOPSY OF LIVER / Unknown Collection / Unknown 01/20/2018 10:58 AM CDT 01/20/2018 11:14 AM CDT Narrative [facility] ([facility]) - 01/28/2018 8:41 AM CDT Performed at: ??01 - [facility] [address] ??[id number] Safe Deposit Box Rental Clerk: Wesley Jose MD, Phone: ??[phone] Jose Rafael Thompson MD LAB - MICROBIOLOGY O RDERABLES [facility] ([facility]) [address] [place] [address] * GROSS + MICRO EXAM (STL) (01/20/2018 10:36 AM CDT) Case Report Surgical Pathology Report ? Case: [id number] ? Authorizing Provider: ??Jose Rafael Thompson MD ? Collected: ? 01/20/2018 10:36 AM ? Ordering Location: ? [facility] ?Received: ?01/20/2018 11:34 AM ? Pathologist: ? Judie Childs MD ? Specimen: ?Liver Needle Biopsy, please run ?EM on this specimen ? 01/21/2018 4:03 PM [facility] Final Diagnosis Liver, needle biopsy (A): - Mild steatosis and lobular inflammation - No fibrosis 01/21/2018 4:03 PM [facility] Clinical History The patient is a 17-year-old boy with elevated liver enzymes who underwent liver biopsy to rule out non-alcoholic steatohepatitis (RUTLEDGE). 01/21/2018 4:03 PM [facility] Gross Description Submitted fixed in formalin [...] possible electron microscopy. (CT/me) 01/21/2018 4:03 PM [facility] Microscopic Description 2 H&E slides; special [...] of condensation. The PASD is negative for cvsvq-5-fujxavuotpp gobules but shows focal pigmented macrophages. The [...] non alcoholic steatohepatitis (RUTLEDGE). 01/21/2018 4:03 PM T [facility] Disclaimer The performance characteristics of all immunohistochemical and indirect immunofluorescence stains (if any) cited in this report were determined by the Histopathology Laboratory of [facility]. Some of these tests [...] the attending (teaching) pathologist. 01/21/2018 4:03 PM [facility] Embedded Images 01/21/2018 4:03 PM T [facility] Pathology/Cytolo gy NEEDLE BIOPSY OF LIVER / Unknown 01/20/2018 10:36 AM CDT 01/20/2018 11:34 AM CDT Jose Rafael Thompson MD LAB - PATHOLOGY/CYTO LOGY ORDERABLES Performing Organization Address City/State/[facility] Co de Phone Number [facility] [address], [place] [phone] * BLOOD TYPE VERIFICATION (01/20/2018 10:36 AM CDT) ABO A 01/20/2018 10:43 AM T [facility] Rh Type Positive 01/20/2018 10:43 AM T [facility] Blood Bank BLOOD SPECIMEN / Unknown Lab Venipuncture / Unknown 01/20/2018 10:36 AM CDT 01/20/2018 10:37 AM CDT Jose Rafael Thompson MD LAB - BLOOD BANK ORD ERABLES [facility] [address] [place] [address] * NEEDLE BIOPSY, LIVER (01/20/2018 9:30 AM CDT) Report Endoscopy POC _ Patient Name: Erick Triana ? Date of : 2000 ? Admit Type: Outpatient Age: 17 ? Gender: Male Attending MD: Jose Rafael Thompson MD ?Order #: [id number] _ Procedure: ? Liver biopsy Indications: ? [...] Procedure Code(s): ? --- Professional --- ? 98497, Biopsy of liver, needle; percutaneous ? 32406, Ultrasonic guidance for needle placement (eg, biopsy, aspiration, ? injection, localization device), imaging supervision and interpretation ? --- Technical --- ? 33786, Biopsy of liver, needle; percutaneous ? 52096, Ultrasonic guidance for needle placement (eg, biopsy, aspiration, ? injection, localization device), imaging supervision and interpretation Diagnosis Code(s): ? --- Professional --- ? R74.9, Abnormal serum enzyme level, unspecified ? --- Technical --- ? R74.9, Abnormal serum enzyme level, unspecified CPT copyright 2015 [employer]. All rights reserved. The codes documented in this report are preliminary and upon pattern scratcher review may be revised to meet current compliance requirements. Dr. Jose Rafael Thompson Jose Rafael Thompson MD 01/20/2018 11:15:04 AM This report has been signed electronically. Number of Addenda: 0 Note Initiated On: 01/19/2018 9:30 AM Procedure Date: ? 01/20/2018 9:30:00 AM ? This report has been signed electronically. [facility] 01/20/2018 9:30 AM CDT Jose Rafael Thompson MD GI PROCEDURE ORDERAB LES Performing Organization Address City/State/[facility] Co de Phone Number [facility] [address] [place] [address] * PREPARE (CROSSMATCH) RBC UNIT(S), 1 Units (01/20/2018 9:15 AM CDT) Product Code [id number] [facility] Unit Donor # [id number] C [facility] ABO Donor Type A [facility] Rh Type Unit POS [facility] Unit Status Ret'd [facility] ABO Rh Type Unit APOS [facility] Donor Unit Expiration Date [id number] [facility] Blood Type Barcode 6200 [facility] Blood Bank BLOOD SPECIMEN / Unknown 01/20/2018 9:15 AM CDT Jose Rafael Thompson MD LAB - BLOOD BANK ORD ERABLES Performing Organization Address [facility]/ZIP Co de Phone Number [facility] [address] [place] [address] * TYPE + SCREEN PANEL (01/20/2018 9:09 AM CDT) ABO A 01/20/2018 10:42 AM CDT [facility] Rh Type Positive 01/20/2018 10:42 AM CDT [facility] Comment:History checked. Antibody Screen Negative 01/20/2018 10:42 AM CDT [facility] Blood Bank BLOOD SPECIMEN / Unknown Venipuncture / Unknown 01/20/2018 9:09 AM CDT 01/20/2018 9:30 AM CDT Jose Rafael Thompson MD LAB - BLOOD BANK ORD ERABLES Performing Organization Address [facility]/ZIP Co de Phone Number [facility] [address] [place] [phone] * (ABNORMAL) PT PTT PANEL (01/20/2018 9:09 AM CDT) PT 11.7(H) 9.5 - 11.6 sec 01/20/2018 10:12 AM CDT [facility] INR 1.1 0.9 - 1.1 01/20/2018 10:12 AM CDT [facility] PTT 24.5 21.0 - 32.0 sec 01/20/2018 10:12 AM CDT [facility] Blood BLOOD SPECIMEN / Unknown Venipuncture / Unknown 01/20/2018 9:09 AM CDT 01/20/2018 9:31 AM CDT Narrative [facility] - 01/20/2018 10:12 AM CDT Conventional Warfarin Anticoagulant Therapy: INR Reference Range: ??2.0-3.0 Intensive Warfarin Anticoagulant Therapy: INR Reference Range: ? 2.5-3.5 Heparin Therapeutic Range for PTT: 47.7 - 68.6 seconds. Jose Rafael Thompson MD LAB - COAGULATION OR DERABLES [facility] [address] [place] [address] * (ABNORMAL) CBC W AUTO DIFFERENTIAL (01/20/2018 9:09 AM CDT) Only the most recent of3 resultswithin the time period is included. [facility] WBC 8.5 4.5 - 11.0 x10E9/L 01/20/2018 9:42 AM T [facility] WBC Corrected x10E9/L 01/20/2018 9:42 AM [facility] RBC 6.07(H) 4.50 - 5.30 x10E12/L 01/20/2018 9:42 AM T [facility] Hemoglobin 16.3(H) 13.0 - 16.0 gm/dL 01/20/2018 9:42 AM T [facility] Hematocrit 47.4 37.0 - 49.0 % 01/20/2018 9:42 AM T [facility] MCV 78.1 78.0 - 98.0 fl 01/20/2018 9:42 AM T [facility] MCH 26.9 25.0 - 35.0 pg 01/20/2018 9:42 AM T [facility] MCHC 34.4 31.0 - 37.0 gm/dL 01/20/2018 9:42 AM [facility] Platelet Count 310 100 - 400 x10E9/L 01/20/2018 9:42 AM T [facility] RDW-CV 12.8 11.5 - 14.0 % 01/20/2018 9:42 AM T [facility] MPV 10.5(H) 6.0 - 9.5 fl 01/20/2018 9:42 AM T [facility] Neutrophils % 49.3 31.0 - 78.0 % 01/20/2018 9:42 AM T [facility] Lymphocytes % 36.9 13.0 - 54.0 % 01/20/2018 9:42 AM [facility] Monocytes % 7.8 4.0 - 13.0 % 01/20/2018 9:42 AM CDT [facility] Eosinophils % 4.6 0.0 - 8.0 % 01/20/2018 9:42 AM CDT [facility] Basophils % 0.7 % 01/20/2018 9:42 AM CDT [facility] Immature Granulocytes 0.7 % 01/20/2018 9:42 AM CDT [facility] Neutrophil Absolute 4.17 x10E9/L 01/20/2018 9:42 AM CDT [facility] Lymphocytes Absolute 3.12 x10E9/L 01/20/2018 9:42 AM CDT [facility] Monocytes Absolute 0.66 x10E9/L 01/20/2018 9:42 AM CDT [facility] Eosinophils Absolute 0.39 x10E9/L 01/20/2018 9:42 AM CDT [facility] Basophils Absolute 0.06 x10E9/L 01/20/2018 9:42 AM CDT [facility] Immature Granulocytes Absolute 0.06 x10E9/L 01/20/2018 9:42 AM T [facility] nRBC Auto 0 /100 WBC 01/20/2018 9:42 AM T [facility] Blood BLOOD SPECIMEN / Unknown Venipuncture / Unknown 01/20/2018 9:09 AM CDT 01/20/2018 9:30 AM CDT Jose Rafael Thompson MD LAB - HEMATOLOGY ORD ERABLES Performing Organization Address City/State/[facility] Co de Phone Number [facility] [place] [phone] * TISSUE TRANSGLUTAMINASE AB IGA (11/12/2017 9:57 [...] CDT 11/12/2017 10:52 AM CDT Narrative [facility] ([facility]) - 11/13/2017 3:11 PM CDT Performed at: ??01 - [facility] [address] ??[id number] Safe Deposit Box Rental Clerk: Carlos Aleman PhD, Phone: ??[phone] Jose Rafael Thompson MD LAB - SEROLOGY ORDER ASTRID Performing Organization Address City/[facility] Co de Phone Number [facility] ([facility]) [address] [place] [address] * (ABNORMAL) C-REACTIVE PROTEIN (11/12/2017 9:57 AM CDT) C-Reactive Protein 1.00(H) <=0.50 mg/dL 11/12/2017 11:35 AM CDT [facility] Blood BLOOD SPECIMEN / Unknown Lab Venipuncture / Unknown 11/12/2017 9:57 AM CDT 11/12/2017 10:52 AM CDT Jose Rafael Thompson MD LAB - CHEMISTRY HILDA MARIO [facility] [address] [place] [address] * LORI BLOOD SCREEN W/REFLEX TITER (11/12/2017 9:57 AM CDT) LORI Negative Negative 11/13/2017 7:25 AM CDT [facility] Blood BLOOD SPECIMEN / Unknown Lab Venipuncture / Unknown 11/12/2017 9:57 AM CDT 11/12/2017 10:52 AM CDT Jose Rafael Thompson MD LAB - CHEMISTRY HILDA MARIO [facility] [address] [place] [address] * MICROSOMAL ANTIBODY LIVER/KIDNEY (11/12/2017 9:57 AM CDT) Pathologist [facility] Liver-Kidney Microsomal Antibody <1.0 0.0 - 20.0 Units 11/15/2017 4:20 PM CDT [facility] ([facility]) Comment: ?Negative ?0.0 - 20.0 ?Equivocal ??20.1 - 24.9 ?Positive ? >24.9 LKM type 1 antibodies are detected in patients with autoimmune hepatitis type 2 and in up to 8% of patients with chronic HCV infection. Blood BLOOD SPECIMEN / Unknown Lab Venipuncture / Unknown 11/12/2017 9:57 AM CDT 11/12/2017 10:52 AM CDT Narrative [facility] ([facility]) - 11/15/2017 4:20 PM CDT Performed at: ??01 - [facility] [place] [address] [place], [place] ??[id number] Safe Deposit Box Rental Clerk: Carlos Aleman PhD, Phone: ??[phone] Jose Rafael Thompson MD LAB - CHEMISTRY HILDA MARIO Performing Organization Address City/[facility]/ZIP Co de Phone Number [facility] ([facility]) [address] [place] [address] * CERULOPLASMIN (11/12/2017 9:57 AM CDT) Ceruloplasmin 25 17 - 54 mg/dL 11/12/2017 11:56 AM CDT [facility] Blood BLOOD SPECIMEN / Unknown Lab Venipuncture / Unknown 11/12/2017 9:57 AM CDT 11/12/2017 10:52 AM CDT Jose Rafael Thompson MD LAB - CHEMISTRY HILDA MARIO Performing Organization Address City/[facility]/ZIP Co de Phone Number [facility] [address] [place] [address] * [id number] BLOOD (11/12/2017 9:57 AM CDT) Pathologist [facility] Wowhh-3-Poacijl psin 147 90 - 200 mg/dL 11/13/2017 8:27 AM CDT [facility] ([facility]) Blood BLOOD SPECIMEN / Unknown Lab Venipuncture / Unknown 11/12/2017 9:57 AM CDT 11/12/2017 10:52 AM CDT Narrative [facility] ([facility]) - 11/13/2017 8:27 AM CDT Performed at: ??01 - [facility] [place] [id number] [place], [place] ??[id number] Safe Deposit Box Rental Clerk: Carlos Aleman PhD, Phone: ??[phone] Jose Rafael Thompson MD LAB - CHEMISTRY HILDA MARIO Performing Organization Address City/[facility] Co de Phone Number [facility] ([facility]) [address] [place] [address] * SMOOTH MUSCLE ANTIBODY (11/12/2017 9:57 AM CDT) Pathologist [facility] Actin (Smooth Muscle) Antibody 5 0 - 19 Units 11/13/2017 5:07 PM CDT [facility] ([facility]) Comment: ? Negative ? 0 - 19 [...] CDT 11/12/2017 10:52 AM CDT Narrative [facility] ([facility]) - 11/13/2017 5:07 PM CDT Performed at: ??01 - [facility] [place] [address] [place], [place] ??[id number] Safe Deposit Box Rental Clerk: Carlos Aleman PhD, Phone: ??[phone] Jose Rafael Thompson MD LAB - SEROLOGY ORDER ASTRID Performing Organization Address City/[facility]/ZIP Co de Phone Number [facility] ([facility]) [address] [place] [address] * PTT (11/12/2017 9:57 AM CDT) PTT 25.3 21.0 - 32.0 sec 11/12/2017 11:24 AM CDT [facility] Blood BLOOD SPECIMEN / Unknown Lab Venipuncture / Unknown 11/12/2017 9:57 AM CDT 11/12/2017 10:52 AM CDT Narrative [facility] - 11/12/2017 11:24 AM CDT Heparin Therapeutic Range for PTT: 47.7 - 68.6 seconds. Jose Rafael Thompson MD LAB - COAGULATION OR DERABLES [facility] [address] [place] [address] * PT-INR (11/12/2017 9:57 AM CDT) PT 10.5 9.5 - 11.6 sec 11/12/2017 11:24 AM CDT [facility] INR 1.0 0.9 - 1.1 11/12/2017 11:24 AM CDT [facility] Blood BLOOD SPECIMEN / Unknown Lab Venipuncture / Unknown 11/12/2017 9:57 AM CDT 11/12/2017 10:52 AM CDT Narrative [facility] - 11/12/2017 11:24 AM CDT Conventional Warfarin Anticoagulant Therapy: INR Reference Range: ??2.0-3.0 Intensive Warfarin Anticoagulant Therapy: INR Reference Range: ? 2.5-3.5 Jose Rafael Thompson MD LAB - COAGULATION OR DERABLES Performing Organization Address City/State/[facility] Co de Phone Number [facility] [address] [place] [address] * (ABNORMAL) COMPREHENSIVE METABOLIC PANEL (11/12/2017 9:57 AM T) Only the most recent of2 resultswithin the time period is included. [facility] Glucose 85 70 - 105 mg/dL 11/12/2017 11:35 AM [facility] Sodium 140 136 - 145 mmol/L 11/12/2017 11:35 AM [facility] Potassium 4.1 3.5 - 5.1 mmol/L 11/12/2017 11:35 AM [facility] Chloride 104 98 - 107 mmol/L 11/12/2017 11:35 AM [facility] CO2 27 20 - 28 mmol/L 11/12/2017 11:35 AM [facility] Calcium 9.85 9.08 - 10.48 mg/dL 11/12/2017 11:35 AM [facility] Anion Gap 9 5 - 20 mmol/L 11/12/2017 11:35 AM [facility] BUN 17.4 5.3 - 18.7 mg/dL 11/12/2017 11:35 AM [facility] Creatinine 0.68 0.61 - 1.07 mg/dL 11/12/2017 11:35 AM [facility] Alkaline Phosphatase 76(L) 100 - 390 U/L 11/12/2017 11:35 AM [facility] ALT 176(H) 6 - 46 U/L 11/12/2017 11:35 AM [facility] AST 71(H) 3 - 35 U/L 11/12/2017 11:35 AM [facility] Protein Total 7.7 6.3 - 8.2 gm/dL 11/12/2017 11:35 AM T [facility] Albumin 4.7 3.3 - 4.9 gm/dL 11/12/2017 11:35 AM T [facility] Bilirubin Total 0.6 0.3 - 1.2 mg/dL 11/12/2017 11:35 AM T [facility] eGFR by MDRD >60 mL/min/1.7 3m2 11/12/2017 11:35 AM T [facility] Comment: eGFR calculations are not performed for children under 18 years old. eGFR by MDRD >60 mL/min/1.7 3m2 11/12/2017 11:35 AM T [facility] Comment: eGFR calculations are not performed for children under 18 years old. Blood BLOOD SPECIMEN / Unknown Lab Venipuncture / Unknown 11/12/2017 9:57 AM CDT 11/12/2017 10:52 AM CDT Jose Rafael Thompson MD LAB - CHEMISTRY ORDFanny MARIO [facility] [address] [place] [address] * GGT (11/12/2017 9:57 AM CDT) GGT 33 8 - 69 U/L 11/12/2017 11:35 AM T [facility] Blood BLOOD SPECIMEN / Unknown Lab Venipuncture / Unknown 11/12/2017 9:57 AM CDT 11/12/2017 10:52 AM CDT Jose Rafael Thompson MD LAB - CHEMISTRY ORDFanny MARIO [facility] [address] [place] [address] * CK BLOOD (11/12/2017 9:57 AM CDT) CK 180 30 - 200 U/L 11/12/2017 11:39 AM T [facility] Blood BLOOD SPECIMEN / Unknown Lab Venipuncture / Unknown 11/12/2017 9:57 AM CDT 11/12/2017 10:52 AM CDT Jose Rafael Thompson MD LAB - CHEMISTRY IHLDA MARIO Performing Organization Address [facility] Co de Phone Number [facility] [address] [place] [phone] * BILIRUBIN DIRECT (11/12/2017 9:57 AM CDT) Bilirubin Direct 0.39 0.11 - 0.64 mg/dL 11/12/2017 11:35 AM CDT [facility] Blood BLOOD SPECIMEN / Unknown Lab Venipuncture / Unknown 11/12/2017 9:57 AM CDT 11/12/2017 10:52 AM CDT Jose Rafael Thompson MD LAB - CHEMISTRY HILDA MARIO Performing Organization Address [facility] Co de Phone Number [facility] [address] [place] [address] * AMYLASE BLOOD (11/12/2017 9:57 AM CDT) Amylase 23 5 - 65 U/L 11/12/2017 11:35 AM CDT [facility] Blood BLOOD SPECIMEN / Unknown Lab Venipuncture / Unknown 11/12/2017 9:57 AM CDT 11/12/2017 10:52 AM CDT Jose Rafael Thompson MD LAB - CHEMISTRY HILDA MARIO Performing Organization Address [facility] Co de Phone Number [facility] [address] [place] [phone] * TSH (11/12/2017 9:57 AM CDT) TSH 1.06 0.35 - 4.95 uIU/mL 11/12/2017 11:56 AM CDT [facility] Blood BLOOD SPECIMEN / Unknown Lab Venipuncture / Unknown 11/12/2017 9:57 AM CDT 11/12/2017 10:52 AM CDT Jose Rafael Thompson MD LAB - CHEMISTRY HILDA MARIO Performing Organization Address City/[facility]/ZIP Co de Phone Number [facility] [address] [place] [address] * HEPATITIS SCREEN ACUTE (11/12/2017 9:57 AM CDT) HAV Antibody IgM Non Reactive Non Reactive 11/12/2017 11:57 AM CDT [facility] HBsAg Non Reactive Non Reactive 11/12/2017 11:57 AM CDT [facility] HBc Antibody IgM Non Reactive Non Reactive 11/12/2017 11:57 AM CDT [facility] HCV Antibody Screen Non Reactive Non Reactive 11/12/2017 11:57 AM CDT [facility] HCV S/C Ratio 0.05 0.00 - 0.79 11/12/2017 11:57 AM CDT [facility] Comment: Slfpga-wp-pbkpdm ratio (S/CO) <0.80:?? Non Reactive Blood BLOOD SPECIMEN / Unknown Lab Venipuncture / Unknown 11/12/2017 9:57 AM CDT 11/12/2017 10:52 AM CDT Narrative [facility] - 11/12/2017 11:57 AM CDT Non Reactive - Antibodies to Hepatitis C virus (HCV) were not detected, result does not exclude early acute HCV infection. Jose Rafael Thompson MD LAB - CHEMISTRY HILDA MARIO Performing Organization Address City/[facility]/ZIP Co de Phone Number [facility] [address] [place] [address] * IGA BLOOD (11/12/2017 9:57 AM CDT) IgA 92 63 - 484 mg/dL 11/12/2017 11:35 AM CDT [facility] Blood BLOOD SPECIMEN / Unknown Lab Venipuncture / Unknown 11/12/2017 9:57 AM CDT 11/12/2017 10:52 AM CDT Jose Rafael Thompson MD LAB - CHEMISTRY HILDA MARIO [facility] [address] [place] [address] * (ABNORMAL) TRIGLYCERIDES BLOOD (10/01/2017 4:54 PM ATMOSPHERIC SCIENCES PROFESSOR) Triglycerides 32(L) 46 - 227 mg/dL 10/01/2017 5:49 PM ATMOSPHERIC SCIENCES PROFESSOR [facility] Blood BLOOD SPECIMEN / Unknown Lab Venipuncture / Unknown 10/01/2017 4:54 PM ATMOSPHERIC SCIENCES PROFESSOR 10/01/2017 5:06 PM ATMOSPHERIC SCIENCES PROFESSOR Valdo Pope Jr., MD LAB - CHEMISTRY ORDERABLES Performing Organization Address [facility] Co de Phone Number [facility] [address] [place] [phone] * CULTURE FUNGUS SKIN HAIR NAIL+FUNGUS SMEAR (07/05/2017 1:50 PM ATMOSPHERIC SCIENCES PROFESSOR) Culture No fungus isolated AUNDREA 08/03/2017 9:29 [address]IC SCIENC[employer] [address] [facility] Fungus Smear No yeast or hyphae seen 08/03/2017 9:29 AM [employer]OSPHERIC SCIENCES PROFESS[address] [facility]CRO[facility] Microbiology TISSUE SPECIMEN FROM SKIN / Unknown Collection / Unknown 07/05/2017 1:50 PM ATMOSPHERIC SCIENCES PROFESSOR 07/05/2017 2:49 PM ATMOSPHERIC SCIENCES PROFESSOR Elena Eugene PA-C LAB - MICROBIOLOGY ORDERABLES Performing Organization Address [facility] Co de Phone Number [facility] [address] [place] [address], [facility] [phone] * CULTURE STAPH AUREUS+STREP A (01/20/2016 3:00 PM CDT) Culture Negative for Streptococcus Group A/Staphylococcus aureus AUNDREA 01/22/2016 5:[address] [facility] Microbiology TISSUE SPECIMEN FROM SKIN / Unknown 01/20/2016 3:00 PM CDT 01/20/2016 5:25 PM CDT Elena Eugene PA-C LAB - MICROBIOLOGY ORDERABLES Performing Organization Address [facility]/ZIP Co de Phone Number [facility] [address] [place] [address] [phone] * STREP A SCREEN - POCT (IP) BEAKER (07/12/2015 3:58 PM ATMOSPHERIC SCIENCES PROFESSOR) Strep A Rapid POCT negative Negative [facility] QC Verified Yes Yes [facility] PO CT TESTING Throat swab (specimen) ENTIRE THROAT (SURFACE REGION OF NECK) / Unknown 07/12/2015 3:58 PM ATMOSPHERIC SCIENCES PROFESSOR Sarika Aviles MD LAB - POINT OF CARE ORDERABLES Performing Organization Address City/[facility]/ZIP Co de Phone Number [facility] [address] [place] [address], [facility] [phone] * STREP A SCREEN DIRECT W RFLX STREP A CULTURE (02/04/2015 10:40 PM CDT) Only the most recent of3 resultswithin the time period is included. Strep A Rapid Negative Negative 02/04/2015 10:55 PM CDT [facility] Microbiology ENTIRE THROAT (SURFACE REGION OF NECK) / Unknown 02/04/2015 10:40 PM CDT 02/04/2015 10:45 PM CDT Narrative [facility] - 02/04/2015 10:55 PM CDT Test has reflexed to a Strep A culture. Joselyn Steward MD LAB - MICROB IOLOGY ORDERABLES Performing Organization Address City/[facility]/ZIP Co de Phone Number [facility] [address] [place] [phone] * CULTURE STREP GROUP A (02/04/2015 10:40 PM CDT) Only the most recent of3 resultswithin the time period is included. Culture Negative for Beta Hemolytic Streptococcus Group A AUNDREA 02/07/2015 7:[address] [facility]CRO[facility] Microbiology ENTIRE THROAT (SURFACE REGION OF NECK) / Unknown 02/04/2015 10:40 PM CDT 02/04/2015 10:45 PM CDT Joselyn Steward MD LAB - MICROB IOLOGY ORDERABLES [facility] [address] [place], [place] [address], [facility] [phone] * XR ABD OBSTR SERIES (10/03/2014 12:45 AM ATMOSPHERIC SCIENCES PROFESSOR) Anatomical Region Laterality Modality Abdomen Radiographic Christine ging 10/03/2014 7:32 AM ATMOSPHERIC SCIENCES PROFESSOR Impressions 10/03/2014 7:33 AM ATMOSPHERIC SCIENCES PROFESSOR Retained stool. Narrative 10/03/2014 7:33 AM ATMOSPHERIC SCIENCES PROFESSOR Exam: Abdomen obstruction series History: 14-year-old male [...] (ABNORMAL) URINALYSIS ROUTINE AUTO (10/02/2014 11:20 PM ATMOSPHERIC SCIENCES PROFESSOR) Only the most recent of2 resultswithin the time period is included. Color UA Yellow Straw, Yellow, Dark Yellow 10/02/2014 11:28 PM [facility] Clarity UA Clear 10/02/2014 11:28 PM [facility] Specific [place] UA 1.015 1.005 - 1.030 10/02/2014 11:28 PM [facility] pH UA 6.0 5.0 - 8.0 pH 10/02/2014 11:28 PM [facility] Protein UA Negative Negative 10/02/2014 11:28 PM [facility] Blood UA Trace(A) Negative 10/02/2014 11:28 PM [facility] Leukocyte UA Negative Negative 10/02/2014 11:28 PM [facility] Nitrite UA Negative Negative 10/02/2014 11:28 PM [facility] Glucose UA Negative Negative 10/02/2014 11:28 PM [facility] Ketone UA Negative Negative 10/02/2014 11:28 PM [facility] Bilirubin UA Negative Negative 10/02/2014 11:28 PM [facility] Urobilinogen UA 0.2 0.1 - 1.0 EU/dL 10/02/2014 11:28 PM [facility] Urine URINE SPECIMEN OBTAINED BY CLEAN CATCH PROCEDURE / Unknown 10/02/2014 11:20 PM ATMOSPHERIC SCIENCES PROFESSOR 10/02/2014 11:23 PM [facility] Marquise Wu MD LAB - URINALYSIS ORD ERABLES Performing Organization Address [facility] Co de Phone Number [facility] [address] [place] [address] * URINALYSIS MICROSCOPIC ONLY (10/02/2014 11:20 PM ATMOSPHERIC SCIENCES PROFESSOR) Only the most recent of2 resultswithin the time period is included. 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 ATMOSPHERIC SCIENCES PROFESSOR Jazmin Mathews MD LAB - URINALYSIS ORD ERABLES Performing Organization Address City/[facility]/ZIP Co de Phone Number [facility] [address] [place] [address] * (ABNORMAL) ALT (11/02/2013 4:26 PM CDT) ALT 348(H) 6 - 46 U/L 11/02/2013 5:14 PM CDT [facility] Blood BLOOD SPECIMEN / Unknown Lab Venipuncture / Unknown 11/02/2013 4:26 PM CDT 11/02/2013 4:42 PM CDT Ivet Zapata [employer] LAB - CHEMISTRY ORDE [employer] Performing Organization Address [facility] Co de Phone Number [facility] [address] [place] [phone] * (ABNORMAL) AST BLOOD (11/02/2013 4:26 PM CDT) AST 164(H) 3 - 35 U/L 11/02/2013 5:14 PM CDT [facility] Blood BLOOD SPECIMEN / Unknown Lab Venipuncture / Unknown 11/02/2013 4:26 PM CDT 11/02/2013 4:42 PM CDT Ivet Zapata [employer] LAB - CHEMISTRY ORDE [employer] Performing Organization Address [facility] Co de Phone Number [facility] [address] [place] [address] * (ABNORMAL) LIPID PROFILE (11/02/2013 4:26 PM CDT) Cholesterol 70 <170 mg/dL 11/02/2013 5:14 PM CDT [facility] Triglycerides 109 42 - 330 mg/dL 11/02/2013 5:14 PM CDT [facility] HDL Cholesterol 31(L) >40 mg/dL 5:14 PM CDT [facility] LDL Calculated <20 <100 mg/dL 11/02/2013 5:14 PM CDT [facility] VLDL Calculated 22 12 - 38 mg/dL 11/02/2013 5:14 PM CDT [facility] Chol HDL Ratio 2.3 <=5.0 11/02/2013 5:14 PM CDT [facility] Blood BLOOD SPECIMEN / Unknown Lab Venipuncture / Unknown 11/02/2013 4:26 PM CDT 11/02/2013 4:42 PM CDT Narrative [facility] - 11/02/2013 5:14 PM CDT Lipid Profile Comment: Adult references ranges are the recommendation of the [place] [employer] , for those patients >18 [...] - CHEMISTRY HILDA MARIO Performing Organization Address [facility] de Phone Number [facility] [address] [place] [address] * GLUCOSE - POINT OF CARE (08/17/2013 3:19 PM ATMOSPHERIC SCIENCES PROFESSOR) Blood BLOOD SPECIMEN / Unknown 08/17/2013 3:19 PM ATMOSPHERIC SCIENCES PROFESSOR 08/18/2013 9:33 AM ATMOSPHERIC SCIENCES PROFESSOR Batsheva Morataya APRN-RIG MECHANIC LAB - POINT OF CARE ORDERABLES Performing Organization Address [facility] de Phone Number [facility] [address] [place] [address] * CULTURE URINE (08/17/2013 3:15 PM ATMOSPHERIC SCIENCES PROFESSOR) Pathologist [facility] Culture <10,000 CFU/mL normal urogenital brian 08/19/2013 6:19 PM ATMOSPHERIC SCIENCES PROFESSOR [facility] Urine URINE SPECIMEN OBTAINED BY CLEAN CATCH PROCEDURE / Unknown 08/17/2013 3:15 PM ATMOSPHERIC SCIENCES PROFESSOR 08/17/2013 3:26 PM ATMOSPHERIC SCIENCES PROFESSOR Batsheva Morataya ARTIST'S MODEL-RIG MECHANIC LAB - MICRO BIOLOGY ORDERABLES Performing Organization Address [facility] Co de Phone Number [facility] [address] [facility] [place] [address], [facility] * LAB RESULTS ORDER (05/17/2012 10:08 AM CDT) Narrative Transcriptions Document, Scanned - 05/17/2012 10:08 AM CDT Scanned Document LAB - THERAPEUTIC DR TRUPTI MONITORING ORDERABLES * (ABNORMAL) FERRITIN (04/17/2011 10:55 AM CDT) Only the most recent of2 resultswithin the time period is included. Ferritin 124(H) 10 - 105 ng/ml [facility] BLOOD SPECIMEN / Unknown 04/17/2011 10:55 AM CDT 04/17/2011 10:59 AM CDT Daija Lewis MD LAB - CHEMISTRY HILDA MARIO Performing Organization Address [facility] Co de Phone Number [facility] [address] [place] [address] * PEDIATRIC DIAGNOSTIC POLYSOMNOGRAM (09/22/2010) Signed On Paper Physician [facility] Campbell JACOBSON * GROSS EXAM PATHOLOGY (04/01/2007 1:45 PM CDT) Result CASE NUMBER [id number] [facility] PATH REPORT Comment: ORDERING PHYSICIAN ??MARY [...] and interpreted by the attending (teaching) pathologist. Insurance Attorney ? DAMIR MURPHY PATHOLOGIST ?Elie Rowan M.D. ELECTRONICALLY CHIVO Elie Rowan MISCELLANEOUS SAMPLES / Unknown 04/01/2007 1:45 PM CDT 04/01/2007 2:01 PM CDT Historical Provider LAB - PATHOLOGY/C YTOLOGY ORDERABLES [facility] PATH REPORT Care Teams 5Th Grade Teacher Relationship Specialty Start Date End Date LabGodfrey griffin MD [facility] [place] [address] PCP - General Pediatrics 05/01/14 Dipika Reddy MD [facility] [place] [address] Resident Student Resident 11/27/15
--- OUTSIDE RECORDS SUMMARY | 2024-08-12 05:17 | XMS_ITS | Encounter Summary ---
Author Organization [facility] Address [address] [facility] [place] [address] Care Team Providers Care Weigh Boss Name Role Phone Godfrey Curry MD Primary Care Provider [phone] Dipika Reddy MD Unavailable Reason for Visit * Reason Onset Date Comments Scheduling 11/12/2017 Encounter Details Date Type Department Care Team (Late st Contact Info) Description 11/12/2017 Telephone [facility] Pediatrics - [address] [address] Jose Rafael Thompson MD [address] [place] [address] Scheduling Social History Tobacco Use Types Packs/Day [...] on filedocumented in this encounter Care Teams Weigh Boss Relationship Specialty Start Date End Date Godfrey Curry MD [address] [place] [phone] PCP - General Pediatrics 05/01/14 Dipika Reddy MD [address] [place] [phone] Resident Student Resident 11/27/15 documented as of this encounter
--- OUTSIDE RECORDS SUMMARY | 2024-08-12 05:17 | XMS_ITS | Encounter Summary ---
Author Organization [facility] Address [address] [facility] [address] [facility] [place] [address] Care Team Providers Care Airborne Operations Name Role Phone Godfrey Curry MD Primary Care Provider [phone] Dipika Reddy MD Unavailable Reason for Referral * Procedure (Routine) - Closed Specialty Diagnoses / Procedures Referred By Nelli pinto Referred To Contact Gastroenterology Diagnoses Liver disorder Procedures NEEDLE BIOPSY, LIVER Jose Rafael Thompson MD [address] [place] [address] Referral ID Status Reason Start Date Expiration Date Visits Re quested Visits Authorized [id number] Closed 11/12/2017 05/11/2018 1 1 Reason for Visit * Auth/Cert Specialty Diagnoses / Procedures Referred By Nelli pinto Referred To Contact Diagnoses Elevated liver enzymes Elevated liver enzymes [R74.8] Procedures BIOPSY LIVER (NEEDLE/PERCUTANEOUS) Referral ID Status Reason Start Date Expiration Date Visits Re quested Visits Authorized [id number] 1 1 Encounter Details Date Type Department Care Team (Latest Contact Info) Description 01/20/2018 8:50 AM CDT - 01/20/2018 3:39 PM CDT Hospital Encounter [facility] - Endoscopy [address] [place] [address] Jose Rafael Thompson MD [address] [place] [address] Surgery General Discharge Disposition: Home or Self [...] 01/20/2018 9:0 1 AM CDT Growth Chart: [facility] (Boys, 2-2 0 Years) documented [...] SURGERY DISCHARGE SUMMARY Patient ID: Erick Triana [id number] 17 y.o. 2000 Discharge Date: 01/20/2018 Discharge [...] 24 hours. When to call provider Call environmental geologist GI if you have questions or concerns. [...] any worsening of their condition, please phone [phone] and ask for the doctor environmental geologist for GI or return to the Emergency [...] (Z= 2.60) based on CDC 2-20 Years [id number] data using vitals from 01/20/2018. BP 117/75 [...] Abdomen: Soft, nontender, nondistended. No organomegaly noted. COTTON CHOPPER: No apparent focal deficits. Extremities: Warm, well [...] - 16.0 gm/dL 01/20/2018 3:10 PM CDT [facility] Hematocrit 41.5 37.0 - 49.0 % 01/20/2018 3:10 PM CDT [facility] Blood BLOOD SPECIMEN / Unknown Venipuncture / Unknown 01/20/2018 2:51 PM CDT 01/20/2018 3:03 PM CDT Jose Rafael Thompson MD LAB - HEMATOLOGY ORD ERABLES Performing Organization Address City/[facility]/ZIP Co de Phone Number [facility] [place] [address] * VIRAL CULTURE MISC (01/20/2018 10:58 AM CDT) Viral Culture No virus isolated. 01/28/2018 8:41 AM CDT [facility] Microbiology NEEDLE BIOPSY OF LIVER / Unknown Collection / Unknown 01/20/2018 10:58 AM CDT 01/20/2018 11:14 AM CDT Narrative [facility]) - 01/28/2018 8:41 AM CDT Performed at: ??01 - [facility] [address] ??[id number] Dust Mill Operator: Wesley Jose MD, Phone: ??[phone] Jose Raafel Thompson MD LAB - MICROBIOLOGY O RDERABLES [facility]) [address] [place] [address] * GROSS + MICRO EXAM (STL) (01/20/2018 10:36 AM CDT) Case Report Surgical Pathology Report ? Case: [id number] ? Authorizing Provider: ??Jose Rafael Thompson MD ? Collected: ? 01/20/2018 10:36 AM ? Ordering Location: ? [facility] ?Received: ?01/20/2018 11:34 AM ? Pathologist: ? Judie Childs MD ? Specimen: ?Liver Needle Biopsy, please run ?EM on this specimen ? 01/21/2018 4:03 PM [facility] Final Diagnosis Liver, needle biopsy (A): - Mild steatosis and lobular inflammation - No fibrosis 01/21/2018 4:03 PM [facility] Clinical History The patient is a 17-year-old boy with elevated liver enzymes who underwent liver biopsy to rule out non-alcoholic steatohepatitis (RUTLEDGE). 01/21/2018 4:03 PM [facility] Gross Description Submitted fixed in formalin [...] microscopy. (CT/me) 01/21/2018 4:03 PM [facility] Microscopic Description 2 H&E slides; special [...] of condensation. The PASD is negative for vtvit-1-jmxyszygqwh gobules but shows focal pigmented macrophages. The [...] non alcoholic steatohepatitis (RUTLEDGE). 01/21/2018 4:03 PM [facility] Disclaimer The performance characteristics of all immunohistochemical and indirect immunofluorescence stains (if any) cited in this report were determined by the Histopathology Laboratory of [facility]. Some of these tests were developed [...] (teaching) pathologist. 01/21/2018 4:03 PM [facility] Embedded Images 01/21/2018 4:03 PM T [facility] Pathology/Cytolo gy NEEDLE BIOPSY OF LIVER / Unknown 01/20/2018 10:36 AM CDT 01/20/2018 11:34 AM CDT Jose Rafael Thompson MD LAB - PATHOLOGY/CYTO LOGY ORDERABLES Performing Organization Address City/State/[facility] Co de Phone Number [facility] [place] [address] * BLOOD TYPE VERIFICATION (01/20/2018 10:36 AM CDT) ABO A 01/20/2018 10:43 AM CDT [facility] Rh Type Positive 01/20/2018 10:43 AM T [facility] Blood Bank BLOOD SPECIMEN / Unknown Lab Venipuncture / Unknown 01/20/2018 10:36 AM CDT 01/20/2018 10:37 AM CDT Jose Rafael Thompson MD LAB - BLOOD BANK ORD ERABLES [facility] [address] [place] [address] * NEEDLE BIOPSY, LIVER (01/20/2018 9:30 AM CDT) Report Endoscopy POC _ Patient Name: Erick Triana ? Date of : 2000 ? Admit Type: Outpatient Age: 17 ? Gender: Male Attending MD: Jose Rafael Thompson MD ?Order #: [id number] _ Procedure: ? Liver biopsy Indications: ? [...] Procedure Code(s): ? --- Professional --- ? 49940, Biopsy of liver, needle; percutaneous ? 15994, Ultrasonic guidance for needle placement (eg, biopsy, aspiration, ? injection, localization device), imaging supervision and interpretation ? --- Technical --- ? 24094, Biopsy of liver, needle; percutaneous ? 67436, Ultrasonic guidance for needle placement (eg, biopsy, aspiration, ? injection, localization device), imaging supervision and interpretation Diagnosis Code(s): ? --- Professional --- ? R74.9, Abnormal serum enzyme level, unspecified ? --- Technical --- ? R74.9, Abnormal serum enzyme level, unspecified CPT copyright 2015 [employer]. All rights reserved. The codes documented in this report are preliminary and upon metal coater review may be revised to meet current compliance requirements. Dr. Jose Rafael Thompson Jose Rafael Thompson MD 01/20/2018 11:15:04 AM This report has been signed electronically. Number of Addenda: 0 Note Initiated On: 01/19/2018 9:30 AM Procedure Date: ? 01/20/2018 9:30:00 AM ? This report has been signed electronically. [facility] 01/20/2018 9:30 AM CDT Jose Rafael Thompson MD GI PROCEDURE ORDERAB LES Performing Organization Address City/State/[facility] Co de Phone Number [facility] [address] [place] [address] * PREPARE (CROSSMATCH) RBC UNIT(S), 1 Units (01/20/2018 9:15 AM CDT) Product Code [id number] [facility] Unit Donor # [id number] C [facility] ABO Donor Type A [facility] Rh Type Unit POS [facility] Unit Status Ret'd [facility] ABO Rh Type Unit APOS [facility] Donor Unit Expiration Date [id number] [facility] Blood Type Barcode 6200 [facility] Blood Bank BLOOD SPECIMEN / Unknown 01/20/2018 9:15 AM CDT Jose Rafael Thompson MD LAB - BLOOD BANK ORD ERABLES Performing Organization Address [facility]/ZIP Co de Phone Number [facility] [address] [place] [address] * TYPE + SCREEN PANEL (01/20/2018 9:09 AM CDT) ABO A 01/20/2018 10:42 AM CDT [facility] Rh Type Positive 01/20/2018 10:42 AM CDT [facility] Comment:History checked. Antibody Screen Negative 01/20/2018 10:42 AM CDT [facility] Blood Bank BLOOD SPECIMEN / Unknown Venipuncture / Unknown 01/20/2018 9:09 AM CDT 01/20/2018 9:30 AM CDT Jose Rafael Thompson MD LAB - BLOOD BANK ORD ERABLES Performing Organization Address [facility]/ZIP Co de Phone Number [facility] [address] [place] [address] * (ABNORMAL) PT PTT PANEL (01/20/2018 9:09 AM CDT) PT 11.7(H) 9.5 - 11.6 sec 01/20/2018 10:12 AM CDT [facility] INR 1.1 0.9 - 1.1 01/20/2018 10:12 AM CDT [facility] PTT 24.5 21.0 - 32.0 sec 01/20/2018 10:12 AM CDT [facility] Blood BLOOD SPECIMEN / Unknown Venipuncture / Unknown 01/20/2018 9:09 AM CDT 01/20/2018 9:31 AM CDT Narrative [facility] - 01/20/2018 10:12 AM CDT Conventional Warfarin Anticoagulant Therapy: INR Reference Range: ??2.0-3.0 Intensive Warfarin Anticoagulant Therapy: INR Reference Range: ? 2.5-3.5 Heparin Therapeutic Range for PTT: 47.7 - 68.6 seconds. Jose Rafael Thompson MD LAB - COAGULATION OR DERABLES [facility] [address] [place] [address] * (ABNORMAL) CBC W AUTO DIFFERENTIAL (01/20/2018 9:09 AM CDT) WBC 8.5 4.5 - 11.0 x10E9/L 01/20/2018 9:42 AM CDT [facility] WBC Corrected x10E9/L 01/20/2018 9:42 AM T [facility] RBC 6.07(H) 4.50 - 5.30 x10E12/L 01/20/2018 9:42 AM T [facility] Hemoglobin 16.3(H) 13.0 - 16.0 gm/dL 01/20/2018 9:42 AM T [facility] Hematocrit 47.4 37.0 - 49.0 % 01/20/2018 9:42 AM T [facility] MCV 78.1 78.0 - 98.0 fl 01/20/2018 9:42 AM CDT [facility] MCH 26.9 25.0 - 35.0 pg 01/20/2018 9:42 AM CDT [facility] MCHC 34.4 31.0 - 37.0 gm/dL 01/20/2018 9:42 AM T [facility] Platelet Count 310 100 - 400 x10E9/L 01/20/2018 9:42 AM T [facility] RDW-CV 12.8 11.5 - 14.0 % 01/20/2018 9:42 AM T [facility] MPV 10.5(H) 6.0 - 9.5 fl 01/20/2018 9:42 AM T [facility] Neutrophils % 49.3 31.0 - 78.0 % 01/20/2018 9:42 AM CDT [facility] Lymphocytes % 36.9 13.0 - 54.0 % 01/20/2018 9:42 AM CDT [facility] Monocytes % 7.8 4.0 - 13.0 % 01/20/2018 9:42 AM CDT [facility] Eosinophils % 4.6 0.0 - 8.0 % 01/20/2018 9:42 AM CDT [facility] Basophils % 0.7 % 01/20/2018 9:42 AM CDT [facility] Immature Granulocytes 0.7 % 01/20/2018 9:42 AM CDT [facility] Neutrophil Absolute 4.17 x10E9/L 01/20/2018 9:42 AM CDT [facility] Lymphocytes Absolute 3.12 x10E9/L 01/20/2018 9:42 AM CDT [facility] Monocytes Absolute 0.66 x10E9/L 01/20/2018 9:42 AM CDT [facility] Eosinophils Absolute 0.39 x10E9/L 01/20/2018 9:42 AM CDT [facility] Basophils Absolute 0.06 x10E9/L 01/20/2018 9:42 AM CDT [facility] Immature Granulocytes Absolute 0.06 x10E9/L 01/20/2018 9:42 AM T [facility] nRBC Auto 0 /100 WBC 01/20/2018 9:42 AM T [facility] Blood BLOOD SPECIMEN / Unknown Venipuncture / Unknown 01/20/2018 9:09 AM CDT 01/20/2018 9:30 AM CDT Jose Rafael Thompson MD LAB - HEMATOLOGY ORD ERABLES Performing Organization Address City/State/[facility] Co de Phone Number [facility] [place] [address] documented in this encounter Visit Diagnoses Diagnosis [...] 4 HOURS PRN, Mild Pain, Starting on Karne 01/20/18 at 1127, Until Karen 01/20/18 at [...] PACU documented in this encounter Care Teams Airborne Operations Relationship Specialty Start Date End Date Labarge, Godfrey Zapata MD [facility] [place] [address] PCP - General Pediatrics 05/01/14 Dipika Reddy MD [facility] [place] [address] Resident Student Resident 11/27/15 documented as of this encounter
--- OUTSIDE RECORDS SUMMARY | 2024-08-12 05:18 | XMS_ITS | Encounter Summary ---
Author Organization [facility] Address [address] [facility] [place] [address] Care Team Providers Care Trimmer Loader Name Role Phone Godfrey Dorman MD Primary Care Provider [phone] Abram Gaspar MD Unavailable Unavailabl e Reason for Visit * Reason Comments Acne Facial acne, onset 2 -3 years ago. No topicals. Encounter Details Date Type Department Care Team (Latest Contact Info) Description 08/23/2015 1:30 PM NURSE CHARGE RN - 08/23/2015 11:59 PM [facility] Hospital Encounter [facility] Pediatrics - Dermatology [facility] [place] [address] Elena Eugene PA-C [address] [place] [address] Discharge Disposition: Home or Self Care Social [...] lb 14 oz) 08/23/2015 1:55 P M NURSE CHARGE RN Height 174.4 cm (5' 8.66 ) 08/23/2015 1:55 PM CS T Body Mass Index 35.48 08/23/2015 1:55 PM NURSE CHARGE RN Body Mass Index Percentile 99.19% 08/23/2015 1:5 5 PM NURSE CHARGE RN Growth Chart: [facility] (Boys, 2-2 0 Years) documented in this encounter Discharge Instructions * Patient Instructions* Elena Eugene PA-C - 08/23/2015 2:31 PM NURSE CHARGE RN Erick has mild-moderate acne. The most important [...] about whether certain foods make acne worse. [place] foods can make skin more oily. A [...] 10 gm/month benzoyl peroxide Please purchase and aydt-lic-wsgrvxp benzoyl peroxide wash. An example brand is Panoxyl which can be purchase online or found at [employer]. Please wash your face, chest, and back [...] cells. People with KP often seek a photo lab manager???s help. But while this condition causes as [...] Famous people with KP include Reginald Duckworth, [facility]'s Prince Westfall and his mother Princess Gillis [...] the internet for sources of all these mlvw-qee-uoucdoc products. Other options include pulsed-dye laser and [...] commercial sites are focused on promoting products. E CHARGE RN documented in this encounter Medications at Time [...] Triana in the Pediatric Dermatology Clinic at [facility]???s [facility] Chief Complaint Patient presents with ??? Acne [...] 70%ile (Z=0.52) based on CDC 2-20 Years kqgrwxe-siy-gta data using vitals from 08/23/2015. Wt Readings from Last 3 Encounters: 08/23/15 107.9 kg (237 lb 14 oz) (100 %*, Z = 2.88) 07/12/15 107.7 kg (237 lb 7 oz) (100 %*, Z = 2.90) 02/04/15 102.6 kg (226 lb 3.1 oz) (100 %*, Z = 2.83) * Growth percentiles are based on [facility] 2-20 Years data. Ht Readings from Last 3 Encounters: 08/23/15 1.744 m (5' 8.66 ) (70 %*, Z = 0.52) 07/12/15 1.771 m (5' 9.72 ) (83 %*, Z = 0.95) 10/30/14 1.741 m (5' 8.54 ) (85 %*, Z = 1.05) * Growth percentiles are based on [facility] 2-20 Years data. Body mass index is [...] about whether certain foods make acne worse. [place] foods can make skin more oily. A [...] 10 gm/month benzoyl peroxide Please purchase and tjwo-xzs-qvvdlvp benzoyl peroxide wash. An example brand is Panoxyl which can be purchase online or found at [employer]. Please wash your face, chest, and back [...] cells. People with KP often seek a photo lab manager???s help. But while this condition causes as [...] the internet for sources of all these iywo-icq-dklufhf products. Other options include pulsed-dye laser and [...] promoting products. Follow-Up As above DAKOTAH Rolon E CHARGE RN documented in this encounter Plan of Treatment Not on file documented as of this encounter Visit Diagnoses Not on filedocumented in this encounter Care Teams Trimmer Loader Relationship Specialty Start Date End Date Godfrey Dorman MD [facility] [place] [address] PCP - General Pediatrics 05/01/14 Abram Gaspar MD [facility] [place] [address] Student Resident 11/05/14 11/26/15 documented as of this encounter
--- OUTSIDE RECORDS SUMMARY | 2024-08-12 05:18 | XMS_ITS | Encounter Summary ---
Author Organization [facility] Address [address] [place] [address] Care Team Providers Care Broadband Installer Name Role Phone Marisol Roblero MD Primary Care Provider [phone] Reason for Visit * Reason Comments Sleep Apnea f/u appt Encounter Details Date Type Department Care Team (Latest Contact Info) Description 04/17/2011 9:30 AM CDT - 04/17/2011 11:59 PM CDT Hospital Encounter [facility] Pediatrics - Sleep [address] [place] [address] Discharge Disposition: Home or Self Care Social [...] 04/17/2011 9:4 9 AM CDT [facility] [...] Progress Notes * Daija Lewis MD - 05/06/2011 4:06 AM CDT [facility] NAME: ERICK TRIANA : 2000 UNIT #: [id number] DATE SEEN: 04/17/2011 ATTENDING PHYSICIAN: DAIJA LEWIS MD Dear doctor, We had the pleasure of seeing Erick Triana, a 10-year-old male, at the Pediatric Sleep Disorders Clinic at [facility] at [facility] for a followup of restless leg [...] Please call me with any questions at [phone]. Dictated By: DAIJA LEWIS MD MM/Patricia JOB ID: [id number] cc: MARISOL ROBLERO MD * Daija Lewis [...] CDT) Ferritin 124(H) 10 - 105 ng/ml [facility] BLOOD SPECIMEN / Unknown 04/17/2011 10:55 AM CDT 04/17/2011 10:59 AM CDT Daija Lewis MD LAB - CHEMISTRY HILDA MARIO [facility] Organization Address City/State/ZIP Co de Phone Number [facility] [address] [place] [address] documented in this encounter Visit Diagnoses Diagnosis Restless legs syndrome (RLS) documented in this encounter Care Teams Broadband Installer Relationship Specialty Start Date End Date Marisol Roblero MD [address] [place] [phone] PCP - General 11/13/10 04/30/11 documented as of this encounter
--- OUTSIDE RECORDS SUMMARY | 2024-08-12 05:18 | XMS_ITS | Encounter Summary ---
Author Organization [facility] Address [address] [facility] [place] [address] Care Team Providers Care Railway Traction Line Worker Name Role Phone Marisol Roblero MD Primary Care Provider [phone] Reason for Visit * Reason Comments Follow-up breathing Encounter Details Date Type Department Care Team (Latest Contact Info) Description 04/02/2011 2:35 PM CDT - 04/02/2011 11:59 PM CDT Hospital Encounter [facility]s - ENT [address] [facility] [place] [address] Anshu Paredes MD [address] [facility] [address] [place] [address] Discharge Disposition: Home or Self Care Social [...] 04/02/2011 2:4 1 PM CDT Growth Chart: [facility] (Boys, 2-2 [...] sneezing and rhinohrea. Pt hasnot seen the hoop puncher yet Has tolerated nasal spray well ROS: [...] on filedocumented in this encounter Care Teams Railway Traction Line Worker Relationship Specialty Start Date End Date Marisol Roblero MD [address] [place] [phone] PCP - General 11/13/10 04/30/11 documented as of this encounter
--- OUTSIDE RECORDS SUMMARY | 2024-08-12 05:18 | XMS_ITS | Encounter Summary ---
Author Organization [facility] Address [address] [facility] [place] [address] Care Team Providers Care Substance Abuse Nurse Name Role Phone Marisol Roblero MD Primary Care Provider [phone] Reason for Visit * Reason Comments Injury [...] 01/31/2011 11:51 PM CDT Emergency ER at [address] [address] Fritz Rivera, PNP Minor head injury Discharge [...] 99.22% 01/31 10:55 PM CDT Growth Chart: [facility] (Boys, 2-2 0 Years) documented in this [...] Sometimes it is necessary to keep your or child in the emergency department for [...] relieved by medication. Only give your child uhdb-bqb-ddgeeyu or prescription medicines for pain, discomfort, or [...] Document Re-Released: 07/01/2009 ExitCare?? Patient Information ??2009 [employer]. * Discharge Instructions* Document, Scanned - 02/03/2011 [...] PM CDT 01/31/2011 11:35 PM Erick Triana [id number] [facility] EMERGENCY DEPT History Chief [...] unspecified documented in this encounter Care Teams Substance Abuse Nurse Relationship Specialty Start Date End Date Marisol Roblero MD [address] [place] [phone] PCP - General 11/13/10 04/30/11 documented as of this encounter
--- OUTSIDE RECORDS SUMMARY | 2024-08-12 05:18 | XMS_ITS | Encounter Summary ---
Author Organization [facility] Address [address] [facility] [place] [address] Care Team Providers Care Mail Caller Name Role Phone Godfrey Curry MD Primary Care Provider [phone] Dipika Reddy MD Unavailable [phone] Reason for Visit * Reason Comments Acne Acne began three yea rs ago. Current Rx: Clindamycin 1% gel & Tretinoin cream 0.05%; previously tried OTC medications (clearasil) Encounter Details Date Type Department Care Team (Latest Contact Info) Description 01/20/2016 1:51 PM CDT - 01/20/2016 11:59 PM CDT Hospital Encounter [facility] Pediatrics - Dermatology [address] [facility] [place] [address] Rani Solitario MD [address] [address] Discharge Disposition: Home or Self Care Social [...] 01/20/2016 2:2 3 PM CDT Growth Chart: [facility] (Boys, 2-2 0 Years) documented in this [...] to the pharmacy in 2 weeks to apple picking supervisor the rest of your medicine. Be sure to confirm amount dispensed and day supply with your pharmacy when you apple picking supervisor your medicine. Be aware that some foods [...] the following: zinc oxide, titanium dioxide, avobenzone (LeddarTechol 178) or mexoryl ?? Some brands with [...] cells. People with KP often seek a reservoir caretaker???s help. But while this condition causes as [...] Famous people with KP include Reginald Duckworth, [facility]'s Prince Westfall and his mother Princess Gillis [...] the internet for sources of all these vpgd-vfn-drigcox products. Other options include pulsed-dye laser and [...] on promoting products. Acanthosis Nigricans Acanthosis nigricans (cr-qj-WMTZ-sis MWA-yfho-pgxvq) is a skin condition that features dark, [...] nigricans. ([facility] can help [phone]). If you are concerned about the [...] Triana in the Pediatric [facility] at [facility]. Chief Complaint Patient presents with ??? [...] 71%ile (Z=0.54) based on CDC 2-20 Years rlcchsg-wur-spp data using vitals from 01/20/2016. Wt Readings [...] 0.52) * Growth percentiles are based on [facility] 2-20 Years data. Body mass index is [...] to the pharmacy in 2 weeks to apple picking supervisor the rest of your medicine. Be sure to confirm amount dispensed and day supply with your pharmacy when you apple picking supervisor your medicine. Be aware that some foods [...] cells. People with KP often seek a reservoir caretaker???s help. But while this condition causes as [...] Famous people with KP include Reginald Duckworth, [facility]'s Prince Westfall and his mother Princess iGllis and Terrell Thomas. KP features tiny, firm [...] the internet for sources of all these mobt-lej-jaotgvt products. Other options include pulsed-dye laser and [...] on promoting products. Acanthosis Nigricans Acanthosis nigricans (pc-us-VCWO-sis DVB-lezd-gjtya) is a skin condition that features dark, [...] nigricans. ([facility] can help [phone]). If you are concerned about the [...] A/Staphylococcus aureus AUNDREA 01/22/2016 5:49 AM CDT [facility] MICROBIOLOGY Microbiology TISSUE SPECIMEN FROM SKIN / Unknown 01/20/2016 3:00 PM CDT 01/20/2016 5:25 PM CDT Elena Eugene PA-C LAB - MICROBIOLOGY ORDERABLES [facility] [address] [place] [phone] documented in this encounter Visit Diagnoses Diagnosis Acne vulgaris- Primary Other acne documented in this encounter Care Teams Mail Caller Relationship Specialty Start Date End Date Labarge, Godfrey Zapata MD [address] [place] [phone] PCP - General Pediatrics 05/01/14 Dipika Reddy MD [address] [place] [phone] Resident Student Resident 11/27/15 documented as of this encounter
--- OUTSIDE RECORDS SUMMARY | 2024-08-12 05:18 | XMS_ITS | Encounter Summary ---
Author Organization [facility] Address [address] [facility] [place] [address] Care Team Providers Care Interlocking Machine Operator Name Role Phone Godfrey Curry MD Primary Care Provider [phone] Dipika Reddy MD Unavailable [phone] Reason for Visit * Reason Onset Date Comments MEDICATION REFILL 11/06/2016 Encounter Details Date Type Department Care Team (Late st Contact Info) Description 11/06/2016 Refill [facility] Pediatrics - Dermatology [address] [facility] [place] [address] Rani Solitario MD [address] [facility] [address] [place] [address] MEDICATION REFILL Social History Tobacco Use Types [...] encounter Miscellaneous Notes * Telephone Encounter - aRch Monterroso RN - 11/06/2016 10:49 AM CDT [...] Center 01/15/2017 1:00 PM Elena Eugene, [facility] Refills have been authorized per prior written physician order; ePrescribed to pharmacy on 11/06/16 w/2 RF's on doxy, 1 RF each topical. documented in this encounter Plan of Treatment Not on file documented as of this encounter Visit Diagnoses Diagnosis Acne vulgaris- Primary Other acne documented in this encounter Care Teams Interlocking Machine Operator Relationship Specialty Start Date End Date Godfrey Curry MD [address] [place] [phone] PCP - General Pediatrics 05/01/14 Dipika Reddy MD [address] [place] [phone] Resident Student Resident 11/27/15 documented as of this encounter
--- OUTSIDE RECORDS SUMMARY | 2024-08-12 05:18 | XMS_ITS | Encounter Summary ---
Author Organization [facility] Address [address] [place] [address] Care Team Providers Care Team Coordinator Name Role Phone Godfrey Curry MD Primary Care Provider Dipika Reddy MD Unavailable Reason for Visit * Reason Onset Date Comments Results 11/02/2017 Question 11/02/2017 Encounter Details Date Type Department Care Team (Late st Contact Info) Description 11/02/2017 Telephone [facility] Pediatrics - Dermatology [address] [facility] [place] [address] Rani Solitario MD [address] [facility] 3 [place] [address] Results; Question Social History Tobacco Use Types [...] on filedocumented in this encounter Care Teams Team Coordinator Relationship Specialty Start Date End Date Labarge, Godfrey Zapata MD [facility] [place] [address] PCP - General Pediatrics 05/01/14 Dipika Reddy MD [facility] [place] [address] Resident Student Resident 11/27/15 documented as of this encounter
--- OUTSIDE RECORDS SUMMARY | 2024-08-12 05:18 | XMS_ITS | Encounter Summary ---
Author Organization [facility] Address [address] [facility] [place] [address] Care Team Providers Care Language Therapist Name Role Phone Kendal Hernandez MD Primary Care Provider [phone] Encounter Details Date Type Department Care Team (Late st Contact Info) Description 09/22/2010 7:15 PM REAL ESTATE OFFICE SUPERVISOR - 09/22/2010 11:59 PM [facility] Hospital Encounter [facility] Pediatrics - Sleep Services [address] [place] [address] Marisol Roblero MD [address] [place] [phone] Sleep Lab Discharge Disposition: Home or Self [...] 01/27/2011 mometasone (NASONEX) 50 MCG/ACT nasal spray [facility] into each nostril 2 times daily. 12/11/2010 [...] on filedocumented in this encounter Care Teams Language Therapist Relationship Specialty Start Date End Date Kendal Hernandez MD [address] [facility] 2 [place] [address] PCP - General 08/21/10 11/12/10 documented as of this encounter
--- OUTSIDE RECORDS SUMMARY | 2024-08-12 05:18 | XMS_ITS | Encounter Summary ---
Author Organization [facility] Address [address] [facility] [place] [address] Care Team Providers Care Provider Service Representative Name Role Phone Godfrey Curry MD Primary Care Provider Dipika Reddy MD Unavailable [phone] Reason for Visit * Reason Onset Date Comments Concerns 10/21/2016 Encounter Details Date Type Department Care Team (Late st Contact Info) Description 10/21/2016 Telephone [facility] Pediatrics - [facility] Pediatrics [address] [place] [address] Godfrey Curry MD [address] [place] [phone] Concerns Social History Tobacco Use Types [...] on filedocumented in this encounter Care Teams Provider Service Representative Relationship Specialty Start Date End Date Godfrey Curry MD [facility] [place] [phone] PCP - General Pediatrics 05/01/14 Dipika Reddy MD [facility] [place] [address] Resident Student Resident 11/27/15 documented as of this encounter
--- OUTSIDE RECORDS SUMMARY | 2024-08-12 05:18 | XMS_ITS | Encounter Summary ---
Author Organization [facility] Address [address] [facility] [place] [address] Care Team Providers Care Transactional Paralegal Name Role Phone Sandra Nettles MD Primary Care Provider [phone] Reason for Visit * Reason Comments Allergy Symptoms first visit asthma w hen younger Encounter Details Date Type Department Care Team (Latest Contact Info) Description 05/19/2011 12:01 AM CDT - 05/19/2011 11:59 PM CDT Hospital Encounter [facility] Pediatrics - Allergy [address] [place] [address] Sreedhar Gaston MD [address] [place] [address] Allergy Discharge Disposition: Home or Self Care [...] 05/19/2011 1:3 6 PM CDT Growth Chart: [facility] (Boys, 2-2 0 Years) documented in this encounter Medications at Time of Discharge Medication Sig Dispensed Refills Start Date End Date albuterol HFA (PROVENTIL;VENTOLIN;PRO AIR) 108 (90 BASE) MCG/ACT inhalerIndications:Coug h Inhale 2 Puffs by mouth every 6 hours as needed (per an action plan). 1 Inhaler 6 05/19/2011 11/02/2013 fluticasone propionate (FLONASE) 50 MCG/ACT nasal sprayIndications:Allerg ic rhinitis [place] 1 [place] into each nostril once daily. 1 Bottle [...] visit in Allergy and Immunology at [facility] . He is a 10 y.o. male. [...] air conditioning: Central A/C type of aniyah: cmuy-bf-xola carpeting type of foundation: Basement moisture exposure: [...] 0 Elm Result: 0 Maple/Boxelder Result: 0 [place]/Pecan Result: 0 Giant Ragweed Result: 0 Plantain Result: 0 Brock Result: 0 Locke Result: 0 Board 4 Percutaneous Skin Test Short Ragweed Result: 0 [place] Grass: 0 Mugwort Result: 0 [place] Result: 0 [place] Result: 0 [place] Pollen Result: 0 Juniper Result: 0 Birch [...] propionate (FLONASE) 50 MCG/ACT nasal spray Sig: [place] 1 [place] into each nostril once daily. Dispense: 1 [...] skin documented in this encounter Care Teams Transactional Paralegal Relationship Specialty [place] [address] [place] [address] PCP - General 05/18/11 05/20/11 documented as of this encounter
--- OUTSIDE RECORDS SUMMARY | 2024-08-12 05:18 | XMS_ITS | Encounter Summary ---
Author Organization [facility] Address [address] [place] [address] Care Team Providers Care Block Engraver Name Role Phone Godfrey Curry MD Primary Care Provider [phone] Dipika Reddy MD Unavailable Reason for Visit * Reason Onset Date Comments Refill Request 05/24/2017 Encounter Details Date Type Department Care Team (Late st Contact Info) Description 05/24/2017 Telephone [facility] Pediatrics - [facility] Pediatrics [address] [place] [address] Godfrey Curry MD [address] [place] [phone] Refill Request Social History Tobacco Use [...] Center 07/05/2017 1:00 PM Elena Eugene PA-C [facility] documented in this encounter Plan of Treatment Not on file documented as of this encounter Visit Diagnoses Diagnosis Seasonal allergic rhinitis, unspecified chronicity, unspecified trigger documented in this encounter Care Teams Block Engraver Relationship Specialty Start Date End Date Godfrey Curry MD [address] [place] [phone] PCP - General Pediatrics 05/01/14 Dipika Reddy MD [address] [place] [phone] Resident Student Resident 11/27/15 documented as of this encounter
--- OUTSIDE RECORDS SUMMARY | 2024-08-12 05:18 | XMS_ITS | Encounter Summary ---
Author Organization [facility] Address [address] [facility] [place] [place] [address] Care Team Providers Care Rug Sample Beveler Name Role Phone Marisol Roblero MD Primary Care Provider [phone] Reason for Visit * Reason Comments Sore Throat c/o sore throat this am, sent home from school nurse today. Unsure if he has had a fever at home. Has had halfway problems with allergies and nasal congestion. States throat feels tight and is worse in the morning, admits to sinus drainage in throat. Encounter Details Date Type Department Care Team (Late st Contact Info) Description 04/05/2013 9:57 AM CDT - 04/05/2013 11:21 AM CDT Emergency ER at [address] [address] Chrissie Murry, SENIOR J2EE DEVELOPER[address] [phone] Seasonal allergies (Primary Dx); Obesity Discharge Disposition: [...] It may often be treated with simple bvrn-mqo-whmhlud medicine such as diphenhydramine. Take medicine as [...] as directed. ?? You may use an uana-gko-lrvmgfb antihistamine (diphenhydramine) for hives and itching as [...] Document Reviewed: 03/18/2009 ExitCare?? Patient Information ??2013 [employer]. Hay Fever Hay fever is an allergic [...] what triggers your hay fever.?? TREATMENT ?? Nzjb-ojd-uhqynvv medicines may help symptoms. These include: ?? Antihistamines. ?? Decongestants. These may help with nasal congestion. ?? Your caregiver may prescribe medicines if ssuq-aig-tufjhkg medicines do not work. ?? Some people [...] Document Reviewed: 08/21/2011 ExitCare?? Patient Information ??2011 [employer]. * Discharge Instructions* Document, Scanned - 04/06/2013 [...] hours a day, from any computer, through [employer], the online version of our electronic medical record. If you would like to use this service, please call Cherise Mejias, Connectivity Coordinator, at . We appreciate the opportunity to care for your patients. If you would like additional information, please call the emergency department directly at . Sincerely, Chrissie Murry RN,CPNP Division of Emergency Medicine [facility], [place] [facility] [place] FIRST TRAUMA I DESIGNATED EMERGENCY DEPARTMENT Provider contact with the patient: 04/05/2013 10:[id number] [facility] EMERGENCY DEPARTMENT History Chief Complaint Patient presents with ??? Sore Throat c/o sore throat this am, sent home from school nurse today. Unsure if he has had a fever at home. Has had halfway problems with allergies and nasal congestion. States [...] as directed. Shower before bed. Call your healthcare interpreter for persistence/worsening or other concerns. [facility] ext [phone]. Clinical Impression Final diagnoses: Seasonal allergies (Primary) Obesity * Nova Patricia RN - 04/05/2013 10:11 AM CDT Introduced self to pt and pt family member. Oriented to call light system. Pt states comfortable atthis time, sitting on stretcher in nad. Informed fermenter wine to see. documented in this encounter Miscellaneous Notes * Miscellaneous Scans - Document, Scanned - 04/06/2013 8:30 PM CDT documented in this encounter Plan of Treatment Not on file documented as of this encounter Visit Diagnoses Diagnosis Seasonal allergies- Primary Allergic rhinitis, cause unspecified Obesity Obesity, unspecified documented in this encounter Care Teams Rug Sample Beveler Relationship Specialty Start Date End Date Marisol Roblero MD [address] [place] [phone] PCP - General 09/03/11 05/15/13 documented as of this encounter
--- OUTSIDE RECORDS SUMMARY | 2024-08-12 05:18 | XMS_ITS | Encounter Summary ---
Author Organization [facility] Address [address] [facility] [place] [address] Care Team Providers Care Tile Edger Name Role Phone Kendal Hernandez MD Primary Care Provider [phone] Encounter Details Date Type Department Care Team (Latest Contact Info) Description 09/22/2010 7:34 PM SIDE SEAM TENDER - 09/22/2010 11:59 PM SIDE SEAM TENDER Hospital Encounter [facility] Pediatrics - Sleep Services [address] [place] [address] Discharge Disposition: Home or Self Care Social [...] 01/27/2011 mometasone (NASONEX) 50 MCG/ACT nasal spray Kite 1 Kite into each nostril 2 times daily. 12/11/2010 documented as of this encounter Miscellaneous Notes * Miscellaneous Scans - Document, Scanned - 10/11/2010 7:24 AM SIDE SEAM TENDER documented in this encounter Plan of Treatment Not on file documented as of this encounter Procedures Procedure Name Priority Date/Time Associated Diagnosis Comments PEDIATRIC DIAGNOSTIC POLYSOMNOGRAM Routine 09/22/2010 documented in this encounter Results * PEDIATRIC DIAGNOSTIC POLYSOMNOGRAM (09/22/2010) Signed On Paper Physician [facility] documented in this encounter Visit Diagnoses Not on filedocumented in this encounter Care Teams Tile Edger Relationship Specialty Start Date End Date Kendal Hernandez MD [address] [address] PCP - General 08/21/10 11/12/10 documented as of this encounter
--- OUTSIDE RECORDS SUMMARY | 2024-08-12 05:18 | XMS_ITS | Encounter Summary ---
Author Organization [facility] Address [address] [facility] [place] [address] Care Team Providers Care Parts Finisher Name Role Phone Bernardino Brown MD Primary Care Provider Sera Leonard DO Unavailable [phone] Reason for Visit * Reason Comments Sore Throat sore throat since fr iday, denies fevers. Encounter Details Date Type Department Care Team (Late st Contact Info) Description 12/18/2013 9:36 AM CDT - 12/18/2013 10:25 AM CDT Emergency ER at [address] [address] Angel Patel MD [address] [place] [phone] Seasonal allergies (Primary Dx) Discharge Disposition: [...] It may often be treated with simple mxdi-qzq-dwufcyv medicine such as diphenhydramine. Take medicine as [...] as directed. ?? You may use an gqeo-vcl-eavkyao antihistamine (diphenhydramine) for hives and itching as [...] Document Reviewed: 03/18/2009 ExitCare?? Patient Information ??2013 [employer]. * Discharge Instructions* Document, Scanned - 12/19/2013 [...] hours a day, from any computer, through [employer] the online version of our electronic medical record. If you would like to use this service, please call Cherise Mejias, Connectivity Coordinator, at . We appreciate the opportunity to care for your patients. If you would like additional information, please call the emergency department directly at . Sincerely, Angel Patel MD Division of Emergency Medicine [facility], [place] [facility] [place] FIRST TRAUMA I DESIGNATED EMERGENCY DEPARTMENT Provider contact with the patient: 12/18/2013 10:05 Erick Tinoco Triana [id number] [facility] EMERGENCY DEPARTMENT History Chief Complaint [...] Rapid Negative Negative 12/18/2013 10:12 AM CDT [facility] Microbiology ENTIRE THROAT (SURFACE REGION OF NECK) / Unknown 12/18/2013 9:45 AM CDT 12/18/2013 9:57 AM CDT Narrative [facility] - 12/18/2013 10:12 AM CDT Test has reflexed to a Strep A culture. Angel Patel MD LAB - MICROBIOLOGY O RDERABLES [facility] [address] [place] [address] * CULTURE STREP GROUP A (12/18/2013 9:45 AM CDT) Culture Negative for Beta Hemolytic Streptococcus Group A 12/20/2013 9:01 AM CDT [facility] MICROBIOLOGY Microbiology ENTIRE THROAT (SURFACE REGION OF NECK) / Unknown 12/18/2013 9:45 AM CDT 12/18/2013 9:57 AM CDT Angel Patel MD LAB - MICROBIOLOGY O RDERABLES [facility] MICROBIOLOGY [address] [place] [address], [facility] documented in this encounter Visit Diagnoses Diagnosis [...] RN) documented in this encounter Care Teams Parts Finisher Relationship Specialty Start Date End Date Bernardino Brown MD [address] [place] [phone] PCP - General Pediatrics 05/16/13 04/30/14 Sera Leonard DO [address] [place] [phone] Resident Pediatrics 09/27/13 11/04/14 documented as of this encounter
--- OUTSIDE RECORDS SUMMARY | 2024-08-12 05:18 | XMS_ITS | Encounter Summary ---
Author Organization [facility] Address [address] [facility] [place] [address] Care Team Providers Care Site Medical Director Name Role Phone Bernardino Brown MD Primary Care Provider [phone] Sera Leonard DO Unavailable [phone] Reason for Visit * Reason Onset Date Comments Concerns 04/17/2014 Encounter Details Date Type Department Care Team (Late st Contact Info) Description 04/17/2014 Telephone [facility] - [facility] [address] [place] [phone] Bernardino Brown MD [address] [place] [phone] Concerns Social History Tobacco Use Types [...] on filedocumented in this encounter Care Teams Site Medical Director Relationship Specialty Start Date End Date Bernardino Brown MD [address] [place] [phone] PCP - General Pediatrics 05/16/13 04/30/14 Sera Leonard DO [address] [place] [phone] Resident Pediatrics 09/27/13 11/04/14 documented as of this encounter
--- OUTSIDE RECORDS SUMMARY | 2024-08-12 05:18 | XMS_ITS | Encounter Summary ---
Author Organization [facility] Address [address] [facility] [place] [address] Care Team Providers Care Surgical Physician Assistant Name Role Phone Godfrey Curry MD Primary Care Provider [phone] Abram Gaspar MD Unavailable Unavailabl e Reason for Visit * Reason Comments Sore Throat started Wednesday night /Wednesday morning, bumps to back of throat and around mouth Fever last night 12/02/14 tm ax 100F, tylenol last dose given 0900 12/03/14 Encounter Details Date Type Department Care Team (Latest Contact Info) Description 12/03/2014 2:40 PM CDT - 12/03/2014 11:59 PM CDT Hospital Encounter [facility] Pediatrics - [facility] Pediatrics [address] [place] [phone] Godfrey Curry MD [address] [place] [phone] Discharge Disposition: Home or Self Care Social [...] prescribed. Symptomatic treatment recommended. Fabio Torrez MD [phone] documented in this encounter Plan of Treatment [...] needed documented in this encounter Care Teams Surgical Physician Assistant Relationship Specialty Start Date End Date Godfrey Curry MD [facility] [place] [phone] PCP - General Pediatrics 05/01/14 Abram Gaspar MD [facility] [place] [phone] Student Resident 11/05/14 11/26/15 documented as of this encounter
--- OUTSIDE RECORDS SUMMARY | 2024-08-12 05:18 | XMS_ITS | Encounter Summary ---
Author Organization [facility] Address [address] [facility] [place] [address] Care Team Providers Care Facing End Trimmer Name Role Phone Bernardino Brown MD Primary Care Provider [phone] Sera Leonard DO Unavailable [phone] Reason for Visit * Reason Comments Sore [...] 04/17/2014 9:02 PM CDT Emergency ER at [address] [address] [place]; Allergic rhinitis; Cervical adenitis; Acute pharyngitis [...] Discharge Instructions * Discharge Instructions* Dana López APRN-FISHER LINE - 04/17/2014 8:41 PM CDT Cervical Adenitis [...] virus can be spread by saliva and yoywb-vs-rjdqf contact. It can also be spread through [...] for specific rehydration instructions. ?? Only take cgdq-ngr-jeyzamd or prescription medicines for pain, discomfort, or [...] Document Reviewed: 02/08/2012 ExitCare?? Patient Information ??2014 [employer]. Headache and Allergies The relationship between allergies [...] Document Reviewed: 10/31/2010 ExitCare?? Patient Information ??2014 [employer]. SEEK IMMEDIATE MEDICAL CARE IF: You have [...] Document Reviewed: 03/26/2013 ExitCare?? Patient Information ??2013 [employer]. Document Reviewed: 01/08/2008 ExitCare?? Patient Information ??2014 [employer]. documented in this encounter Medications at Time [...] fluticasone propionate (FLONASE) 50 MCG/ACT nasal spray Fulda 2 Sprays into each nostril once daily. [...] hours a day, from any computer, through [employer], the online version of our electronic medical record. If you would like to use this service, please call Cherise Mejias, Connectivity Coordinator, at . We appreciate the opportunity to care for your patients. If you would like additional information, please call the emergency department directly at . Sincerely, MARY KATE Villela Division of Emergency Medicine [facility], [place] [facility] [place]???S FIRST TRAUMA I DESIGNATED EMERGENCY DEPARTMENT Provider contact with the patient: 04/17/2014 19:35 Erick Triana [id number] [facility] EMERGENCY DEPARTMENT History Chief Complaint Patient [...] propionate (FLONASE) 50 MCG/ACT nasal spray Sig: Fulda 2 Sprays into each nostril once daily. [...] warm to touch. Follow up with your outreach analyst if concerns of infection Take your allergy [...] RN) documented in this encounter Care Teams Facing End Trimmer Relationship Specialty Start Date End Date Bernardino Brown MD [address] [place] [phone] PCP - General Pediatrics 05/16/13 04/30/14 Sera Leonard DO [address] [place] [phone] Resident Pediatrics 09/27/13 11/04/14 documented as of this encounter
--- OUTSIDE RECORDS SUMMARY | 2024-08-12 05:18 | XMS_ITS | Encounter Summary ---
Author Organization [facility] Address [address] [facility] [place] [address] Care Team Providers Care Channel Program Manager Name Role Phone Godfrey Curry MD Primary Care Provider Dipika Reddy MD Unavailable [phone] Reason for Referral * Evaluate & Treat (Routine) - Closed Specialty Diagnoses / Procedures Referred By Contact Referred To Contact Pediatric Gastroenterology Diagnoses Transaminitis Rani Solitario MD [address] [place] [address] Jose Rafael Thompson MD [address] [place] [address] Referral ID Status Reason Start Date Expiration Date V isits Requested Visits Authorized [id number] Closed Specialty Services Required 10/06/2017 04/04/2018 1 1 Scheduling Instructions If you have not been contacted by an [facility] Superintendent Drivers within 48 hours, please call [phone] to schedule an appointment. AGE MAKER Reason for Visit * Reason Onset Date Comments Coordination Of Care 10/04/2017 Encounter Details Date Type Department Care Team (Late st Contact Info) Description 10/04/2017 Telephone [facility] Pediatrics - Dermatology [address] [facility] [place] [address] Rani Solitario MD [address] [facility] [address] [place] [address] Coordination Of Care Social History Tobacco Use [...] back; relayed provider recs. Pt lives in [place], [place] with alana, but mom will identify [...] sooner, would like to have drawn at [facility] in [place], [place] ([phone]). D/w Dr. Solitario; ok to hold lab draw until day of GI appt. Contacted mom; requesting to call back after her doctor's appt. 10/15/17 Mom calls; would like to have labs drawn tomorrow at [facility] in [place], [place] ([phone]). Lab orders entered and faxed. 10/20/17 Faxed [...] 11/12/2017 9:15 AM Jose Rafael Thompson MD [facility] 12/17/2017 2:30 PM Elena Eugene, [facility] documented in this encounter Plan [...] (LDH) documented in this encounter Care Teams Channel Program Manager Relationship Specialty Start Date End Date Labarge, Godfrey Zapata MD [facility] [place] [phone] PCP - General Pediatrics 05/01/14 Dipika Reddy MD [facility] [place] [phone] Resident Student Resident 11/27/15 documented as of this encounter
--- OUTSIDE RECORDS SUMMARY | 2024-08-12 05:18 | XMS_ITS | Encounter Summary ---
Author Organization [facility] Address [address] [place] [address] Care Team Providers Care Commercial Account Manager Name Role Phone Godfrey Curry MD Primary Care Provider Dipika Reddy MD Unavailable Reason for Referral * Procedure (Routine) - Closed Specialty Diagnoses / Procedures Referred By Contonesimo pinto Referred To Contact Gastroenterology Diagnoses Liver disorder Procedures NEEDLE BIOPSY, LIVER Jose Rafael Thompson MD [address] [place] [address] Referral ID Status Reason Start Date Expiration Date Visits Re quested Visits Authorized [id number] Closed 11/12/2017 05/11/2018 1 1 * Evaluate & Treat (Routine) - Closed Specialty Diagnoses / Procedures Referred By Contact Referred To Contact Pediatric Gastroenterology Diagnoses Transaminitis Rani Solitario MD [address] [place] [address] [address] [place] [address] Jose Rafael Thompson MD [address] [place] [address] Referral ID Status Reason Start Date Expiration Date V isits Requested Visits Authorized [id number] Closed Specialty Services Required 10/06/2017 04/04/2018 1 1 Scheduling Instructions If you have not been contacted by an [facility] Centrifugal Casting Machine Operator within 48 hours, please call [phone] to schedule an appointment. Reason for Visit [...] Pediatric Gastroenterology Diagnoses Transaminitis Rani Solitario MD [address] [place] [address] [place] [address] Jose Rafael Thompson MD [address] [place] [address] Referral ID Status Reason Start Date Expiration Date V isits Requested Visits Authorized [id number] Closed Specialty Services Required 10/06/2017 04/04/2018 1 1 Encounter Details Date Type Department Care Team (Latest Contact Info) Description 11/12/2017 8:36 AM CDT - 11/12/2017 9:55 AM CDT Hospital Encounter [facility] Pediatrics - GI [address] [place] [address]. [place] [address] Jose Rafael Thompson MD [address] [place] [address] Discharge Disposition: Home or Self Care Social [...] 11/12/2017 8:4 7 AM CDT Growth Chart: [facility] (Boys, 2-2 0 Years) documented [...] seeing Erick in the Gastroenterology Clinic at [facility] on 11/12/2017. CHIEF COMPLAINT: He [...] Denies hematochesia. Musculoskeletal : Joint Swelling (-) JR. SYSTEMS ADMINISTRATOR : Altered Sensorium (-) Allergic : Anaphylaxis [...] (Z= 2.74) based on CDC 2-20 Years svgxhx-eac-hbk data using vitals from 11/12/2017. BP 120/84 [...] Abdomen: Soft, nontender, nondistended. No organomegaly noted. JR. SYSTEMS ADMINISTRATOR: No apparent focal deficits. Extremities: Warm, well [...] Routine 11/12/2017 9:57 AM CDT Liver disorder [id number] BLOOD Routine 11/12/2017 9:57 AM CDT Liver [...] MD: Jose Rafael Thompson MD ?Order #: [id number] _ Procedure: ? Liver biopsy Indications: ? [...] Procedure Code(s): ? --- Professional --- ? 62902, Biopsy of liver, needle; percutaneous ? 89739, Ultrasonic guidance for needle placement (eg, biopsy, aspiration, ? injection, localization device), imaging supervision and interpretation ? --- Technical --- ? 57334, Biopsy of liver, needle; percutaneous ? 47463, Ultrasonic guidance for needle placement (eg, biopsy, aspiration, ? injection, localization device), imaging supervision and interpretation Diagnosis Code(s): ? --- Professional --- ? R74.9, Abnormal serum enzyme level, unspecified ? --- Technical --- ? R74.9, Abnormal serum enzyme level, unspecified CPT copyright 2015 [employer]. All rights reserved. The codes documented in this report are preliminary and upon special inspector review may be revised to meet current compliance requirements. Dr. Jose Rafael Thompson Jose Rafael Thompson MD 01/20/2018 11:15:04 AM This report has been signed electronically. Number of Addenda: 0 Note Initiated On: 01/19/2018 9:30 AM Procedure Date: ? 01/20/2018 9:30:00 AM ? This report has been signed electronically. [facility] 01/20/2018 9:30 AM CDT Jose Rafael Thompson MD GI PROCEDURE ORDERAB LES [facility] [address] [place] [address] * PT-INR (11/12/2017 9:57 AM CDT) PT 10.5 9.5 - 11.6 sec 11/12/2017 11:24 AM CDT [facility] INR 1.0 0.9 - 1.1 11/12/2017 11:24 AM CDT [facility] Blood BLOOD SPECIMEN / Unknown Lab Venipuncture / Unknown 11/12/2017 9:57 AM CDT 11/12/2017 10:52 AM CDT Narrative [facility] - 11/12/2017 11:24 AM CDT Conventional Warfarin Anticoagulant Therapy: INR Reference Range: ??2.0-3.0 Intensive Warfarin Anticoagulant Therapy: INR Reference Range: ? 2.5-3.5 Jose Rafael Thompson MD LAB - COAGULATION OR DERABLES Performing Organization Address [facility] Co de Phone Number [facility] [place] [address] * PTT (11/12/2017 9:57 AM CDT) PTT 25.3 21.0 - 32.0 sec 11/12/2017 11:24 AM CDT [facility] Blood BLOOD SPECIMEN / Unknown Lab Venipuncture / Unknown 11/12/2017 9:57 AM CDT 11/12/2017 10:52 AM CDT [facility] - 11/12/2017 11:24 AM CDT Heparin Therapeutic Range for PTT: 47.7 - 68.6 seconds. Jose Rafael Thompson MD LAB - COAGULATION OR DERABLES Performing Organization Address [facility] de Phone Number [facility] [address] [place] [address] * TISSUE TRANSGLUTAMINASE AB IGA (11/12/2017 9:57 AM CDT) TTG Antibody IgA <2 0 - 3 U/mL 11/13/2017 3:11 PM CDT [facility] ([facility]) Comment: ?Negative ?0 - ??3 ?Weak Positive ?? 4 - 10 ?Positive ? >10 Tissue Transglutaminase (tTG) has been identified as the endomysial antigen. ??Studies have demonstr- ated that endomysial IgA antibodies have over 99% specificity for gluten sensitive enteropathy. Blood BLOOD SPECIMEN / Unknown Lab Venipuncture / Unknown 11/12/2017 9:57 AM CDT 11/12/2017 10:52 AM CDT Narrative [facility] ([facility]) - 11/13/2017 3:11 PM CDT Performed at: ??01 - [facility] [address] ??[id number] Other Spatial Scientist: Carlos Aleman PhD, Phone: ??[phone] Jose Rafael Thompson MD LAB - SEROLOGY ORDER ASTRID Performing Organization Address [facility] Co de Phone Number [facility] ([facility]) [address] [place] [address] * TSH (11/12/2017 9:57 AM CDT) TSH 1.06 0.35 - 4.95 uIU/mL 11/12/2017 11:56 AM CDT [facility] Blood BLOOD SPECIMEN / Unknown Lab Venipuncture / Unknown 11/12/2017 9:57 AM CDT 11/12/2017 10:52 AM CDT Jose Rafael Thompson MD LAB - CHEMISTRY HILDA MARIO [facility] [address] [place] [address] * IGA BLOOD (11/12/2017 9:57 AM CDT) Pathologist [facility] IgA 92 63 - 484 mg/dL 11/12/2017 11:35 AM CDT [facility] Blood BLOOD SPECIMEN / Unknown Lab Venipuncture / Unknown 11/12/2017 9:57 AM CDT 11/12/2017 10:52 AM CDT Jose Rafael Thompson MD LAB - CHEMISTRY HILDA MARIO Performing Organization Address [facility]/ZIP Co de Phone Number [facility] [address] [place] [address] * HEPATITIS SCREEN ACUTE (11/12/2017 9:57 AM CDT) [facility] HAV Antibody IgM Non Reactive Non Reactive 11/12/2017 11:57 AM T [facility] HBsAg Non Reactive Non Reactive 11/12/2017 11:57 AM T [facility] HBc Antibody IgM Non Reactive Non Reactive 11/12/2017 11:57 AM T [facility] HCV Antibody Screen Non Reactive Non Reactive 11/12/2017 11:57 AM T [facility] HCV S/C Ratio 0.05 0.00 - 0.79 11/12/2017 11:57 AM T [facility] Comment: Mjzomc-or-rvlwml ratio (S/CO) <0.80:?? Non Reactive Blood BLOOD SPECIMEN / Unknown Lab Venipuncture / Unknown 11/12/2017 9:57 AM CDT 11/12/2017 10:52 AM CDT Narrative [facility] - 11/12/2017 11:57 AM CDT Non Reactive - Antibodies to Hepatitis C virus (HCV) were not detected, result does not exclude early acute HCV infection. Jose Rafael Thompson MD LAB - CHEMISTRY HILDA MARIO Performing Organization Address City/[facility]/ZIP Co de Phone Number [facility] [address] [place] [address] * GGT (11/12/2017 9:57 AM CDT) Pathologist [facility] GGT 33 8 - 69 U/L 11/12/2017 11:35 AM T [facility] Blood BLOOD SPECIMEN / Unknown Lab Venipuncture / Unknown 11/12/2017 9:57 AM CDT 11/12/2017 10:52 AM CDT Jose Rafael Thompson MD LAB - CHEMISTRY HILDA MARIO Performing Organization Address [facility] Co de Phone Number [facility] [address] [place] [address] * (ABNORMAL) C-REACTIVE PROTEIN (11/12/2017 9:57 AM CDT) Pathologist [facility] C-Reactive Protein 1.00(H) <=0.50 mg/dL 11/12/2017 11:35 AM CDT [facility] Blood BLOOD SPECIMEN / Unknown Lab Venipuncture / Unknown 11/12/2017 9:57 AM CDT 11/12/2017 10:52 AM CDT Jose Rafael Thompson MD LAB - CHEMISTRY HILDA MARIO Performing Organization Address [facility] Co de Phone Number [facility] [address] [place] [address] * (ABNORMAL) COMPREHENSIVE METABOLIC PANEL (11/12/2017 9:57 AM CDT) [facility] Glucose 85 70 - 105 mg/dL 11/12/2017 11:35 AM T [facility] Sodium 140 136 - 145 mmol/L 11/12/2017 11:35 AM T [facility] Potassium 4.1 3.5 - 5.1 mmol/L 11/12/2017 11:35 AM T [facility] Chloride 104 98 - 107 mmol/L 11/12/2017 11:35 AM T [facility] CO2 27 20 - 28 mmol/L 11/12/2017 11:35 AM T [facility] Calcium 9.85 9.08 - 10.48 mg/dL 11/12/2017 11:35 AM [facility] Anion Gap 9 5 - 20 mmol/L 11/12/2017 11:35 AM [facility] BUN 17.4 5.3 - 18.7 mg/dL 11/12/2017 11:35 AM T [facility] Creatinine 0.68 0.61 - 1.07 mg/dL 11/12/2017 11:35 AM T [facility] Alkaline Phosphatase 76(L) 100 - 390 U/L 11/12/2017 11:35 AM T [facility] ALT 176(H) 6 - 46 U/L 11/12/2017 11:35 AM T [facility] AST 71(H) 3 - 35 U/L 11/12/2017 11:35 AM T [facility] Protein Total 7.7 6.3 - 8.2 gm/dL 11/12/2017 11:35 AM T [facility] Albumin 4.7 3.3 - 4.9 gm/dL 11/12/2017 11:35 AM T [facility] Bilirubin Total 0.6 0.3 - 1.2 mg/dL 11/12/2017 11:35 AM [facility] eGFR by MDRD >60 mL/min/1.7 3m2 11/12/2017 11:35 AM [facility] Comment: eGFR calculations are not performed for children under 18 years old. eGFR by MDRD >60 mL/min/1.7 3m2 11/12/2017 11:35 AM [facility] Comment: eGFR calculations are not performed for children under 18 years old. Blood BLOOD SPECIMEN / Unknown Lab Venipuncture / Unknown 11/12/2017 9:57 AM CDT 11/12/2017 10:52 AM CDT Jose Rafael Thompson MD LAB - CHEMISTRY HILDA MARIO Performing Organization Address [facility] Phone Number [facility] [place] [address] * CERULOPLASMIN (11/12/2017 9:57 AM CDT) Ceruloplasmin 25 17 - 54 mg/dL 11/12/2017 11:56 AM T [facility] Blood BLOOD SPECIMEN / Unknown Lab Venipuncture / Unknown 11/12/2017 9:57 AM CDT 11/12/2017 10:52 AM CDT Jose Rafael Thompson MD LAB - CHEMISTRY HILDA MARIO Performing Organization Address City/State/[facility] de Phone Number [facility] [place] [address] * BILIRUBIN DIRECT (11/12/2017 9:57 AM CDT) [facility] Bilirubin Direct 0.39 0.11 - 0.64 mg/dL 11/12/2017 11:35 AM CDT [facility] Blood BLOOD SPECIMEN / Unknown Lab Venipuncture / Unknown 11/12/2017 9:57 AM CDT 11/12/2017 10:52 AM CDT Jose Rafael Thompson MD LAB - CHEMISTRY HILDA MARIO Performing Organization Address [facility] de Phone Number [facility] [address] [place] [address] * SMOOTH MUSCLE ANTIBODY (11/12/2017 9:57 AM CDT) [facility] Actin (Smooth Muscle) Antibody 5 0 - 19 Units 11/13/2017 5:07 PM CDT [facility] ([facility]) Comment: ? Negative ? 0 - [...] CDT 11/12/2017 10:52 AM CDT Narrative [facility] ([facility]) - 11/13/2017 5:07 PM CDT Performed at: ??01 - [facility] [address], [place], [place] ??[id number] Other Spatial Scientist: Carlos Aleman PhD, Phone: ??[phone] Jose Rafael Thompson MD LAB - SEROLOGY ORDER ASTRID Performing Organization Address City/[facility]/ZIP Co de Phone Number [facility]) [address] [place] [address] * MICROSOMAL ANTIBODY LIVER/KIDNEY (11/12/2017 9:57 AM CDT) Liver-Kidney Microsomal Antibody <1.0 0.0 - 20.0 Units 11/15/2017 4:20 PM CDT [facility] ([facility]) Comment: ?Negative ?0.0 - 20.0 ?Equivocal ??20.1 - 24.9 ?Positive ? >24.9 LKM type 1 antibodies are detected in patients with autoimmune hepatitis type 2 and in up to 8% of patients with chronic HCV infection. Blood BLOOD SPECIMEN / Unknown Lab Venipuncture / Unknown 11/12/2017 9:57 AM CDT 11/12/2017 10:52 AM CDT Narrative [facility] ([facility]) - 11/15/2017 4:20 PM CDT Performed at: ??01 - [address] ??[id number] Other Spatial Scientist: Carlos Aleman PhD, Phone: ??[phone] Jose Rafael Thompson MD LAB - CHEMISTRY ORDE RABLES Performing Organization Address City/[facility]/ZIP Co de Phone Number [facility] ([facility]) [address] [place] [address] * LORI BLOOD SCREEN W/REFLEX TITER (11/12/2017 9:57 AM CDT) LORI Negative Negative 11/13/2017 7:25 AM CDT [facility] Blood BLOOD SPECIMEN / Unknown Lab Venipuncture / Unknown 11/12/2017 9:57 AM CDT 11/12/2017 10:52 AM CDT Jose Rafael Thompson MD LAB - CHEMISTRY HILDA MARIO [facility] [address] [place] [address] * AMYLASE BLOOD (11/12/2017 9:57 AM CDT) Amylase 23 5 - 65 U/L 11/12/2017 11:35 AM CDT [facility] Blood BLOOD SPECIMEN / Unknown Lab Venipuncture / Unknown 11/12/2017 9:57 AM CDT 11/12/2017 10:52 AM CDT Jose Rafael Thompson MD LAB - CHEMISTRY HILDA MARIO Performing Organization Address City/[facility]/ZIP Co de Phone Number [facility] [address] [place] [address] * WNDWI-8-IDQRHFOSDAH BLOOD (11/12/2017 9:57 AM CDT) Bnbyz-5-Vbozdcx psin 147 90 - 200 mg/dL 11/13/2017 8:27 AM CDT [facility] ([facility]) Blood BLOOD SPECIMEN / Unknown Lab Venipuncture / Unknown 11/12/2017 9:57 AM CDT 11/12/2017 10:52 AM CDT Narrative [facility] ([facility]) - 11/13/2017 8:27 AM CDT Performed at: ??01 - [facility] [place] [address] [place] [address] ??[id number] Other Spatial Scientist: Carlos Aleman PhD, Phone: ??[phone] Jose Rafael Thompson MD LAB - CHEMISTRY HILDA MARIO Performing Organization Address City/[facility]/ZIP Co de Phone Number [facility] ([facility]) [address] [place] [address] * (ABNORMAL) CBC W AUTO DIFFERENTIAL (11/12/2017 9:57 AM CDT) [facility] WBC 6.5 4.5 - 11.0 x10E9/L 11/12/2017 11:11 AM [facility] WBC Corrected x10E9/L 11/12/2017 11:11 AM [facility] RBC 5.74(H) 4.50 - 5.30 x10E12/L 11/12/2017 11:11 AM [facility] Hemoglobin 15.3 13.0 - 16.0 gm/dL 11/12/2017 11:11 AM [facility] Hematocrit 45.6 37.0 - 49.0 % 11/12/2017 11:11 AM [facility] MCV 79.4 78.0 - 98.0 fl 11/12/2017 11:11 AM [facility] MCH 26.7 25.0 - 35.0 pg 11/12/2017 11:11 AM [facility] MCHC 33.6 31.0 - 37.0 gm/dL 11/12/2017 11:11 AM [facility] Platelet Count 293 100 - 400 x10E9/L 11/12/2017 11:11 AM [facility] RDW-CV 13.2 11.5 - 14.0 % 11/12/2017 11:11 AM [facility] MPV 10.6(H) 6.0 - 9.5 fl 11/12/2017 11:11 AM [facility] Neutrophils % 50.8 31.0 - 78.0 % 11/12/2017 11:11 AM [facility] Lymphocytes % 36.4 13.0 - 54.0 % 11/12/2017 11:11 AM [facility] Monocytes % 8.2 4.0 - 13.0 % 11/12/2017 11:11 AM [facility] Eosinophils % 3.2 0.0 - 8.0 % 11/12/2017 11:11 AM [facility] Basophils % 0.6 % 11/12/2017 11:11 AM [facility] Immature Granulocytes 0.8 % 11/12/2017 11:11 AM [facility] Neutrophil Absolute 3.30 x10E9/L 11/12/2017 11:11 AM [facility] Lymphocytes Absolute 2.36 x10E9/L 11/12/2017 11:11 AM CDT [facility] Monocytes Absolute 0.53 x10E9/L 11/12/2017 11:11 AM CDT [facility] Eosinophils Absolute 0.21 x10E9/L 11/12/2017 11:11 AM CDT [facility] Basophils Absolute 0.04 x10E9/L 11/12/2017 11:11 AM CDT [facility] Immature Granulocytes Absolute 0.05 x10E9/L 11/12/2017 11:11 AM CDT [facility] nRBC Auto 0 /100 WBC 11/12/2017 11:11 AM CDT [facility] Blood BLOOD SPECIMEN / Unknown Lab Venipuncture / Unknown 11/12/2017 9:57 AM CDT 11/12/2017 10:52 AM CDT Jose Rafael Thompson MD LAB - HEMATOLOGY ORD ERABLES [facility] [address] [place] [address] documented in this encounter Visit Diagnoses Diagnosis Liver disorder- Primary Unspecified disorder of liver Transaminitis Nonspecific elevation of levels of transaminase or lactic acid dehydrogenase (LDH) documented in this encounter Care Teams Commercial Account Manager Relationship Specialty Start Date End Date LabargeGodfrey MD [address] [place] [phone] PCP - General Pediatrics 05/01/14 Dipika Reddy MD [address] [place] [phone] Resident Student Resident 11/27/15 documented as of this encounter
--- OUTSIDE RECORDS SUMMARY | 2024-08-12 05:18 | XMS_ITS | Encounter Summary ---
Author Organization [facility] Address [address] [place] [address] Care Team Providers Care Accountant Property Name Role Phone Marisol Roblero MD Primary Care Provider [phone] Reason for Visit * Reason Comments Sleep Apnea Encounter Details Date Type Department Care Team (Latest Contact Info) Description 11/13/2010 1:00 PM CDT - 11/13/2010 1:35 PM CDT Hospital Encounter [facility] Pediatrics - Sleep [address] [place] [address] Discharge Disposition: Home or Self Care Social [...] 3. Continue to follow thyroid function with diamond cutter. 4. ENT evaluation of adenoids. 5. CPAP [...] 01/27/2011 mometasone (NASONEX) 50 MCG/ACT nasal spray Plains 1 Plains into each nostril 2 times daily. 12/11/2010 documented as of this encounter Progress Notes * Daija Lewis MD - 12/07/2010 9:35 PM CDT Dear Doctor, We had the pleasure of seeing your patient Erick Triana, a 10 y.o. male, at the [facility] at [facility] at [facility] for evaluation of snoring and concern [...] 10 systems reviewed with pertinents noted above. [place] Sleepiness Scale: 3 Past Medical History : [...] ; mometasone (NASONEX) 50 MCG/ACT nasal spray, Plains 1 Plains into each nostril 2 times daily., Disp:, [...] patient. Please call with any questions at [phone]. Daija Lewis MD [facility], [facility] documented in this encounter Miscellaneous Notes [...] CDT) Ferritin 61 10 - 105 ng/ml [facility] BLOOD SPECIMEN / Unknown 11/13/2010 3:25 PM CDT 11/13/2010 3:33 PM CDT Daija Lewis MD LAB - CHEMISTRY HILDA Gross Organization Address City/State/ZIP Co de Phone Number [facility] [address] [place] [phone] documented in this encounter Visit Diagnoses Diagnosis Restless legs syndrome (RLS) KEYANA (obstructive sleep apnea) Obstructive sleep apnea (adult) (pediatric) Poor sleep hygiene 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
--- OUTSIDE RECORDS SUMMARY | 2024-08-12 05:18 | XMS_ITS | Encounter Summary ---
Author Organization [facility] Address [address] [place] [address] Care Team Providers Care Label Remover Name Role Phone Sera Leonard DO Unavailable [phone] Godfrey Dorman MD Primary Care Provider [phone] Reason for Visit * Reason Comments Evaluation left rayne Encounter Details Date Type Department Care Team (Latest Contact Info) Description 10/30/2014 1:03 PM CDT - 10/30/2014 11:59 PM CDT Hospital Encounter [facility] Pediatrics - Orthopedics [facility] [facility] [place] [address] Marilu Cosby MD Discharge Disposition: Home or [...] 10/30/2014 1:0 5 PM CDT Growth Chart: [facility] (Boys, 2-2 0 Years) documented [...] the finger. Erick Triana was xrayed at [facility] and presents for further evaluation. The patient [...] a pop. Last night patient went to [facility] for x[facility]. He is here for further evaluation and treatment. documented in this encounter Plan of Treatment Not on file documented as of this encounter Visit Diagnoses Diagnosis Injury of fifth finger, left, initial encounter- Primary Closed fracture of unspecified phalanx or phalanges of hand documented in this encounter Care Teams Label Remover Relationship Specialty Start Date End Date Labarge, Godfrey Zapata MD [address] [place] [address] PCP - General Pediatrics 05/01/14 Sera Leonard DO Resident Pediatrics 09/27/13 11/04/14 documented as of this encounter
--- OUTSIDE RECORDS SUMMARY | 2024-08-12 05:18 | XMS_ITS | Encounter Summary ---
Author Organization [facility] Address [address] [place] [place] [address] Care Team Providers Care Mannequin Molder Name Role Phone Marisol Roblero MD Primary Care Provider [phone] Encounter Details Date Type Department Care Team (Latest Contact Info) Description 02/12/2011 1:59 PM CDT - 02/12/2011 11:59 PM CDT Hospital Encounter [facility] Pediatrics - Sleep Services [address] [place] [address] Daija Lewis MD [address] [place] [address] Sleep Lab Discharge Disposition: Home [...] on filedocumented in this encounter Care Teams Mannequin Molder Relationship Specialty Start Date End Date Marisol Roblero MD [address] [place] [phone] PCP - General 11/13/10 04/30/11 documented as of this encounter
--- OUTSIDE RECORDS SUMMARY | 2024-08-12 05:18 | XMS_ITS | Encounter Summary ---
Author Organization [facility] Address [address] [facility] [place] [address] Care Team Providers Care Silk Screen Layout Drafter Name Role Phone Bernardino Brown MD Primary Care Provider Sera Leonard DO Unavailable [phone] Reason for Visit * Reason Onset Date Comments Concerns 04/18/2014 Encounter Details Date Type Department Care Team (Late st Contact Info) Description 04/18/2014 Telephone [facility] - [facility] [address] [place] [address] Bernardino Brown MD [address] [place] [phone] Concerns Social History Tobacco Use Types [...] on filedocumented in this encounter Care Teams Silk Screen Layout Drafter Relationship Specialty Start Date End Date Bernardino Brown MD [address] [place] [phone] PCP - General Pediatrics 05/16/13 04/30/14 Sera Leonard DO [address] [place] [phone] Resident Pediatrics 09/27/13 11/04/14 documented as of this encounter
--- OUTSIDE RECORDS SUMMARY | 2024-08-12 05:18 | XMS_ITS | Encounter Summary ---
Author Organization [facility] Address [address] [place] [address] Care Team Providers Care Crusher Assembler Name Role Phone Bernardino Brown MD Primary Care Provider Sera Leonard DO Unavailable [phone] Reason for Visit * Reason Comments Pain [...] 04/15/2014 3:13 PM CDT Emergency ER at [address] [address] URI (upper respiratory infection) Discharge [...] Discharge Instructions * Discharge Instructions* Adonis Gill, MATT-YARN EXAMINER - 04/15/2014 3:00 PM CDT Images from [...] germs are spread by coughs, sneezes, and fslq-lf-tyvq contact. A cold will usually clear up [...] open. This is especially important for the who needsan open nose to be able to suck with a closed mouth. ?? Only give your child kcsg-ppx-wsffllj or prescription medicines for pain, discomfort, or [...] Document Re-Released: 07/01/2009 ExitCare?? Patient Information ??2010 [employer] Cool Mist Vaporizers Vaporizers may help relieve [...] Document Reviewed: 03/13/2010 ExitCare?? Patient Information ??2014 [employer] Saline Nose Drops To help clear a stuffy nose, put salt water (saline) nose drops in your 's nose. This helps to loosen the secretions in the nose. Use a bulb syringe to clean the nose out: ?? Before feeding. ?? Before putting your infant down for naps. ?? No more than [...] Will get help right away if your infant is not doing well or gets worse. Document Released: 05/16/2010 Document Revised: 10/10/2012 Document Reviewed: 05/16/2010 ExitCare?? Patient Information ??2013 [employer] documented in this encounter Medications at Time [...] hours a day, from any computer, through L[employer]ie, the online version of our electronic medical record. If you would like to use this service, please call Cherise Mejias, Connectivity Coordinator, at . We appreciate the opportunity to care for your patients. If you would like additional information, please call the emergency department directly at . Sincerely, MARY KATE Velasco Division of Emergency Medicine [facility], [place] [facility] [place] DESIGNATED EMERGENCY DEPARTMENT Provider contact with the patient: 04/15/2014 14:46 Erick Triana [id number] [facility] EMERGENCY DEPARTMENT History Chief Complaint Patient [...] Group A AUNDREA 04/17/2014 6:24 AM CDT [facility] MICROBIOLOGY Microbiology ENTIRE THROAT (SURFACE REGION OF NECK) / Unknown 04/15/2014 1:19 PM CDT 04/15/2014 1:31 PM CDT Sathya Bingham MD LAB - MICROBIOLOGY O [place] MICROBIOLOGY [address] [address] * STREP A SCREEN DIRECT W RFLX STREP A CULTURE (04/15/2014 1:19 PM CDT) Strep A Rapid Negative Negative 04/15/2014 1:42 PM CDT [facility] Microbiology ENTIRE THROAT (SURFACE REGION OF NECK) / Unknown 04/15/2014 1:19 PM CDT 04/15/2014 1:31 PM CDT Narrative [facility] - 04/15/2014 1:42 PM CDT Test has reflexed to a Strep A culture. Sathya Bingham MD LAB - MICROBIOLOGY O [place] [address] [place] [address] documented in this encounter Visit Diagnoses Diagnosis URI (upper respiratory infection) Acute upper respiratory infections of unspecified site documented in this encounter Care Teams Crusher Assembler Relationship Specialty Start Date End Date Bernardino Brown MD [address] [place] [address] PCP - General Pediatrics 05/16/13 04/30/[place] [address] [place] [phone] Resident Pediatrics 09/27/13 11/04/14 documented as of this encounter
--- OUTSIDE RECORDS SUMMARY | 2024-08-12 05:18 | XMS_ITS | Encounter Summary ---
Author Organization [facility] Address [address] [facility] [place] [address] Care Team Providers Care Applicator Sprayer Name Role Phone Godfrey Curry MD Primary Care Provider Dipika Reddy MD Unavailable Reason for Visit * Reason Onset Date Comments Refill Request 05/24/2017 Encounter Details Date Type Department Care Team (Late st Contact Info) Description 05/24/2017 Telephone [facility] Pediatrics - [facility] Pediatrics [address] [place] [address] Godfrey Curry MD [address] [place] [phone] Refill Request Social History Tobacco Use [...] encounter Miscellaneous Notes * Telephone Encounter - Ila - 05/24/2017 11:46 AM CDT Erick Triana's, 16 y.o. male, mother is calling requesting medication refill. Medication: loratadine (CLARITIN) 10 MG tablet Last well child checkup: 12/04/15 Mom is checking with patient and school to get dates to schedule well child checkup Pharmacy verified. Future Appointments Date Time Provider Department Center 07/05/2017 1:00 PM Elena Eugeen PA-C [facility] documented in this encounter Plan of Treatment Not on file documented as of this encounter Visit Diagnoses Not on filedocumented in this encounter Care Teams Applicator Sprayer Relationship Specialty Start Date End Date Labarge, Godfrey Zapata MD [address] [place] [phone] PCP - General Pediatrics 05/01/14 Dipika Reddy MD [address] [place] [phone] Resident Student Resident 11/27/15 documented as of this encounter
--- OUTSIDE RECORDS SUMMARY | 2024-08-12 05:18 | XMS_ITS | Encounter Summary ---
Author Organization [facility] Address [address] [facility] [place] [address] Care Team Providers Care Bulbs Farmworker Name Role Phone Bernardino Brown MD Primary Care Provider [phone] Sera Leonard DO Unavailable [phone] Reason for Referral * - Closed Specialty Diagnoses / Procedures Referred By Contonesimo t Referred To Contact Diagnoses Vision disturbance Ivet Hinton DO [address] [place] [address] Referral ID Status Reason Start Date Expiration Date V isits Requested Visits Authorized [id number] Closed Specialty Services Required 11/02/2013 05/01/2014 1 1 Reason for Visit * Reason Comments Complete Physical Exam Encounter Details Date Type Department Care Team (Latest Contact Info) Description 11/02/2013 2:11 PM CDT - 11/02/2013 4:20 PM CDT Hospital Encounter [facility] - [facility] [address] [place] [address] Ivet Hinton DO [address] [place] [address] Discharge Disposition: Home or Self Care Social [...] data. If you need to reach a rolling attendant after normal business hours, please call our After Hours number at [phone]. Poison Control: IMMUNIZATIONS Your child may receive [...] share in (or continuing to share in) underground utility locator. Also increase awareness about community issues and [...] from the original note were not included. [facility] Pediatrics Well Child Visit Erick Triana is [...] results. Family is looking to move to [place] soon. Education/future plans: wants to be vet for marine animals A - Involved in [employer] racing D - During private interview, denies [...] ) 74.02%ile based on CDC 2-20 Years yydixvt-eqf-rxk data. Weight: 97.07 kg (214 lb) 99.83%ile based on CDC 2-20 Years yfvclg-pag-orh data. BP: 118/68, 73.8% systolic and 64.2% [...] management clinic if does not move to [place] - Also may be text for teens eligible if still living in [facility] in a year Return in about 3 months (around 02/01/2014). Plan of care discussed with Dr. Stephanie Hinton DO * Bernardino Brown MD - 11/02/2013 6:47 PM CDT I reviewed history and physical exam with Resident at the time of the visit. Patient seen and discussed with patient and mother Patient presents for [facility] as new patient; difficulty seeing at school Considering move to [facility] property in [place] Exam: BP 118/68 Temp 98.4 ??F (Tympanic) [...] - 35 U/L 11/02/2013 5:14 PM CDT [facility] Blood BLOOD SPECIMEN / Unknown Lab Venipuncture / Unknown 11/02/2013 4:26 PM CDT 11/02/2013 4:42 PM CDT Ivet Hinton DO LAB - CHEMISTRY ORDE [employer] Performing Organization Address City/[facility]/ZIP Co de Phone Number [facility] [address] [place] [address] * (ABNORMAL) ALT (11/02/2013 4:26 PM CDT) Pathologist [facility] ALT 348(H) 6 - 46 U/L 11/02/2013 5:14 PM CDT [facility] Blood BLOOD SPECIMEN / Unknown Lab Venipuncture / Unknown 11/02/2013 4:26 PM CDT 11/02/2013 4:42 PM CDT Ivet Hinton DO LAB - CHEMISTRY ORDE [employer] Performing Organization Address City/[facility] Co de Phone Number [facility] [address] [place] [address] * (ABNORMAL) LIPID PROFILE (11/02/2013 4:26 PM CDT) Pathologist [facility] Cholesterol 70 <170 mg/dL 11/02/2013 5:14 PM CDT [facility] Triglycerides 109 42 - 330 mg/dL 11/02/2013 5:14 PM T [facility] HDL Cholesterol 31(L) >40 mg/dL 5:14 PM T [facility] LDL Calculated <20 <100 mg/dL 11/02/2013 5:14 PM T [facility] VLDL Calculated 22 12 - 38 mg/dL 11/02/2013 5:14 PM T [facility] Chol HDL Ratio 2.3 <=5.0 11/02/2013 5:14 PM T [facility] Blood BLOOD SPECIMEN / Unknown Lab Venipuncture / Unknown 11/02/2013 4:26 PM CDT 11/02/2013 4:42 PM CDT Narrative [facility] - 11/02/2013 5:14 PM CDT Lipid Profile Comment: Adult references ranges are the recommendation of the [place] [employer] , for those patients >18 [...] may alter some of these results. Ivet Hniton DO LAB - CHEMISTRY HILDA Gross Organization Address City/State/ZIP Co de Phone Number [facility] [address] [facility] [place] [address] documented in this encounter Visit Diagnoses Diagnosis [...] management clinic if does not move to [place] - Also may be text for teens eligible if still living in [facility] in a year * Assessment & Plan [...] referral documented in this encounter Care Teams Bulbs Farmworker Relationship Specialty Start Date End Date Bernardino Brown MD [address] [place] [phone] PCP - General Pediatrics 05/16/13 04/30/14 Sera Leonard DO [address] [place] [phone] Resident Pediatrics 09/27/13 11/04/14 documented as of this encounter
--- OUTSIDE RECORDS SUMMARY | 2024-08-12 05:18 | XMS_ITS | Encounter Summary ---
Author Organization [facility] Address [address] [facility] [place] [address] Care Team Providers Care Noc Technician Name Role Phone Godfrey Curry MD Primary Care Provider Dipika Reddy MD Unavailable [phone] Reason for Visit * Reason Comments Acne acne unchanged with intermittent flares, doxycycline 100 mg bid, BP wash 5% qd, Tretinoin q hs. Rash rash to left forearm resolved, rx TAC 0.1% cream qd, rash resolved. Encounter Details Date Type Department Care Team (Latest Contact Info) Description 10/01/2017 3:11 PM QC MANAGER - 10/01/2017 4:45 PM [facility] Hospital Encounter [facility] Pediatrics - Dermatology [address] [place] [address]. [place] [address] Elena Eugene PA-C [address] [place] [address] Discharge Disposition: Home or Self Care Social [...] (273 lb 2.4 oz) 10/01/2017 3:22 PM QC MANAGER Height 178.3 cm (5' 10.2 ) 10/01/2017 3:22 PM CS T Body Mass Index 38.97 10/01/2017 3:22 PM QC MANAGER Body Mass Index Percentile 99.45% 10/01/2017 3:2 2 PM QC MANAGER Growth Chart: [facility] (Boys, 2-2 0 Years) documented in this encounter Discharge Instructions * Patient Instructions* Valdo Pope - 10/01/2017 4:08 PM QC MANAGER Erick's acne involves his face is marginally [...] to get your fasting labs done. Call [phone] option 3, Wednesday-Wednesday between 9 AM and [...] SA and AmLactin Acanthosis Nigricans Acanthosis nigricans (yj-tl-BSXV-sis KXC-lzgz-aswna) is a skin condition that features dark, [...] LIFE! canhelp. See information below and call [phone] or for more [...] 4:30-6:30 pm, beginning September 23, 2016. At [facility], [facility] Chin. COST: Free Contact: Call [phone] or for more information. MANAGER documented in this encounter Medications at [...] Triana in the Pediatric Dermatology Clinic at [facility]. Chief Complaint Patient presents with ??? Acne [...] a 3 month follow-up. Patient records reviewed: [facility] Adherence: Perfect Response to treatment: Minimal Global [...] FH of depression or IBD. Weight: 124kg (Gary body weight: 80kg) Patient Skin Care Regimen [...] (Z= 0.39) based on CDC 2-20 Years gtottej-tsj-wtr data using vitals from 10/01/2017. Wt Readings from Last 3 Encounters: 10/01/17 123.9 kg (273 lb 2.4 oz) (>99 %, Z= 2.88)* 07/05/17 118.8 kg (261 lb 14.5 oz) (>99 %, Z= 2.78)* 10/14/16 120.9 kg (266 lb 8.6 oz) (>99 %, Z= 3.00)* * Growth percentiles are based on [facility] 2-20 Years data. Ht Readings from Last 3 Encounters: 10/01/17 1.783 m (5' 10.2 ) (65 %, Z= 0.39)* 07/05/17 1.777 m (5' 9.96 ) (63 %, Z= 0.34)* 10/14/16 1.807 m (5' 11.14 ) (82 %, Z= 0.91)* * Growth percentiles are based on [facility] 2-20 Years data. Body mass index is [...] to get your fasting labs done. Call [phone] option 3, Wednesday-Wednesday between 9 AM and [...] SA and AmLactin Acanthosis Nigricans Acanthosis nigricans (vf-tf-YDXO-sis RWB-gxgt-ryqwu) is a skin condition that features dark, [...] LIFE! canhelp. See information below and call [phone] or for more [...] 4:30-6:30 pm, beginning September 23, 2016. At [facility], [facility]. COST: Free Contact: Call [phone] or for more information. Attending Note Previous documentation from my team has been reviewed and discussed. In my attending note above, I have confirmed these findings other than where revisions were made. Follow-Up Return in about 31 days (around 11/01/2017). Rani Solitario MD MANAGER documented in this encounter Plan of Treatment Not on file documented as of this encounter Visit Diagnoses Diagnosis Acne vulgaris- Primary Other acne Encounter for medication monitoring Encounter for therapeutic drug monitoring documented in this encounter Care Teams Noc Technician Relationship Specialty Start Date End Date Godfrey Curry MD [address] [place] [phone] PCP - General Pediatrics 05/01/14 Dipika Reddy MD [facility] [place] [address] Resident Student Resident 11/27/15 documented as of this encounter
--- OUTSIDE RECORDS SUMMARY | 2024-08-12 05:18 | XMS_ITS | Encounter Summary ---
Author Organization [facility] Address [address] [facility] [place] [address] Care Team Providers Care Equipment Driver Name Role Phone Marisol Roblero MD Primary Care Provider [phone] Encounter Details Date Type Department Care Team (Latest Contact Info) Description 03/05/2011 2:48 PM CDT - 03/05/2011 2:55 PM CDT Hospital Encounter [facility] Pediatrics - ENT [address] [facility] [place] [address] Anshu Paredes MD [address] [facility] [address] [place] [address] Ear Nose Throat Discharge Disposition: Home or [...] on filedocumented in this encounter Care Teams Equipment Driver Relationship Specialty Start Date End Date Marisol Roblero MD [address] [place] [phone] PCP - General 11/13/10 04/30/11 documented as of this encounter
--- OUTSIDE RECORDS SUMMARY | 2024-08-12 05:18 | XMS_ITS | Encounter Summary ---
Author Organization [facility] Address [address] [facility] [place] [address] Care Team Providers Care Spa Director Name Role Phone Godfrey Curry MD Primary Care Provider Dipika Reddy MD Unavailable [phone] Reason for Visit * Reason Comments Well Child Check Encounter Details Date Type Department Care Team (Latest Contact Info) Description 12/04/2015 1:30 PM CDT - 12/04/2015 11:59 PM CDT Hospital Encounter [facility] Pediatrics - [facility] Pediatrics [facility] [address] [phone] John Roland MD [facility] [place] [address] Discharge Disposition: Home or Self [...] data. If you need to reach a insulation packer after normal business hours, please call our After Hours number at [phone]. IMMUNIZATIONS Your child may receive vaccines today. [...] share in (or continuing to share in) metal cabinet finisher. Also increase awareness about community issues and [...] not included. Division of General Academic Pediatrics [address] [address] ? Name: Erick Triana Age: 15 y.o. [...] interaction: normal Cooperation / Oppositional behavior: normal Environmental Program Manager Arrangements: Access to books / reading: yes [...] 60%ile (Z=0.25) based on CDC 2-20 Years ujzfdre-xxo-bgr data using vitals from 12/04/2015. Weight: 109.997 kg (242 lb 8 oz) 100%ile (Z=2.88) based on CDC 2-20 Years sixows-ewg-rkc data usingvitals from 12/04/2015. BMI: 36.62 99%ile [...] not included. Division of General Academic Pediatrics [address] [address] ? Name: Erick Triana Age: 15 y.o. [...] 60%ile (Z=0.25) based on CDC 2-20 Years zgzndzl-vil-upn data using vitals from 12/04/2015. Weight: 109.997 kg (242 lb 8 oz) 100%ile (Z=2.88) based on CDC 2-20 Years eygvjy-tko-mex data usingvitals from 12/04/2015. BMI: 36.62 99%ile [...] health examination with abnormal findings- Primary Routine infant or child health check Need for vaccination [...] arise. documented in this encounter Care Teams Spa Director Relationship Specialty Start Date End Date Labarge, Godfrey Zapata MD [address] [place] [phone] PCP - General Pediatrics 05/01/14 Dipika Reddy MD [facility] [place] [address] Resident Student Resident 11/27/15 documented as of this encounter
--- OUTSIDE RECORDS SUMMARY | 2024-08-12 05:18 | XMS_ITS | Encounter Summary ---
Author Organization [facility] Address [address] [facility] [place] [address] Care Team Providers Care Truer Pinion And Wheel Name Role Phone Godfrey Curry MD Primary Care Provider Dipika Reddy MD Unavailable Reason for Visit * Reason Onset Date Comments MEDICATION REFILL 05/14/2017 Encounter Details Date Type Department Care Team (Late st Contact Info) Description 05/14/2017 Telephone [facility] Pediatrics - Dermatology [facility] [place] [address] Elena Eugene PAJeremyC [address] [place] [address] MEDICATION REFILL Social History Tobacco Use Types [...] on filedocumented in this encounter Care Teams Truer Pinion And Wheel Relationship Specialty Start Date End Date Godfrey Curry MD [facility] [place] [phone] PCP - General Pediatrics 05/01/14 Dipika Reddy MD [address] [place] [address] Resident Student Resident 11/27/15 documented as of this encounter
--- OUTSIDE RECORDS SUMMARY | 2024-08-12 05:18 | XMS_ITS | Encounter Summary ---
Author Organization [facility] Address [address] [place] [address] Care Team Providers Care Supervisor Extrusion Name Role Phone Godfrey Curry MD Primary [...] (Latest Contact Info) Description 07/05/2017 12:36 PM HAIR CUTTER - 07/05/2017 11:59 PM [facility] Hospital Encounter [facility] Pediatrics - Dermatology [address] [place] [address]. [place] [address] Elena Eugene PA-C [address] [place] [address] Discharge Disposition: Home or Self Care Social [...] lb 14. 5 oz) 07/05/2017 12:57 PM HAIR CUTTER Height 177.7 cm (5' 9.96 ) 07/05/2017 1 2:57 PM HAIR CUTTER Body Mass Index 37.62 07/05/2017 12:57 PM HAIR CUTTER Body Mass Index Percentile 99.24% 07/05 12:57 PM HAIR CUTTER Growth Chart: [facility] (Boys, 2-2 0 Years) documented in this encounter Discharge Instructions * Patient Instructions* Elena Eugene PA-C - 07/05/2017 1:38 PM HAIR CUTTER Erick has moderate acne. He is off [...] about whether certain foods make acne worse. [place] foods can make skin more oily. A [...] HAVE FILLED - INCLUDING THE EMPTY CONTAINERS CUTTER documented in this encounter Medications at Time [...] the pleasure of seeing your patient, Erick rTiana in the Pediatric Dermatology Clinic at [facility]. Chief Complaint Patient presents with ??? [...] (Z= 0.34) based on CDC 2-20 Years wbyhioo-skj-wiv data using vitals from 07/05/2017. Wt Readings [...] 0.54)* * Growth percentiles are based on [facility] 2-20 Years data. Body mass index [...] about whether certain foods make acne worse. [place] foods can make skin more oily. A [...] CONTAINERS Follow-Up As above Elena Eugene PA-C CUTTER documented in this encounter Plan of Treatment Not on file documented as of this encounter Procedures Procedure Name Priority Date/Time Associated Diagnosis Comments CULTURE FUNGUS SKIN HAIR NAIL+FUNGUS SMEAR Routine 07/05/2017 1:50 PM HAIR CUTTER Acne vulgaris documented in this encounter Results * CULTURE FUNGUS SKIN HAIR NAIL+FUNGUS SMEAR (07/05/2017 1:50 PM HAIR CUTTER) Culture No fungus isolated AUNDREA 08/03/2017 9:29 AM HAIR CUTTER [facility] MICROBIOLOGY Fungus Smear No yeast or hyphae seen 08/03/2017 9:29 AM HAIR CUTTER [facility]CRO[facility] Microbiology TISSUE SPECIMEN FROM SKIN / Unknown Collection / Unknown 07/05/2017 1:50 PM HAIR CUTTER 07/05/2017 2:49 PM HAIR CUTTER Elena Eugene PA-C LAB - MICROBIOLOGY ORDERABLES [facility] [address] [phone] documented in this encounter Visit Diagnoses Diagnosis Acne vulgaris Other acne documented in this encounter Care Teams Supervisor Extrusion Relationship Specialty Start Date End Date LabargeGodfrey MD [address] [place] [phone] PCP - General Pediatrics 05/01/14 Dipika Reddy MD [address] [place] [address] Resident Student Resident 11/27/15 documented as of this encounter
--- OUTSIDE RECORDS SUMMARY | 2024-08-12 05:18 | XMS_ITS | Encounter Summary ---
Author Organization [facility] Address [address] [facility] [place] [address] Care Team Providers Care Employer Relations Representative Name Role Phone Bernardino Brown MD Primary Care Provider [phone] Sera Leonard DO Unavailable [phone] Encounter Details Date Type Department Care Team (Latest Contact Info) Description 11/02/2013 4:21 PM CDT - 11/02/2013 11:59 PM T Hospital Encounter [id number] [place] [address] Ivet Hinton DO [address] [place] [address] Discharge Disposition: Home or Self Care Social [...] on filedocumented in this encounter Care Teams Employer Relations Representative Relationship Specialty Start Date End Date Bernardino Brown MD [address] [place] [address] PCP - General Pediatrics 05/16/13 04/30/14 Sera Leonard DO [address] [place] [address] Resident Pediatrics 09/27/13 11/04/14 documented as of this encounter
--- OUTSIDE RECORDS SUMMARY | 2024-08-12 05:18 | XMS_ITS | Encounter Summary ---
Author Organization [facility] Address [address] [place] [address] Care Team Providers Care Manager Database Name Role Phone Sera Leonard DO Unavailable [phone] Godfrey Curry MD Primary Care Provider [phone] Reason for Visit * Reason Comments Pain [...] st Contact Info) Description 10/02/2014 10:37 PM INPATIENT SERVICES RN - 10/03/2014 1:33 AM INPATIENT SERVICES RN Emergency ER at [address] [address] Marquise Wu MD No Updated [...] Comments Blood Pressure 125/83 10/02/2014 9:59 PM INPATIENT SERVICES RN Pulse 64 10/03/2014 1:25 AM INPATIENT SERVICES RN Temperature 36.3 ??C (97.4 ??F) 10/03/2014 1:25 AM CS T Respiratory Rate 16 10/03/2014 1:25 AM INPATIENT SERVICES RN Oxygen Saturation 99% 10/02/2014 9:59 PM INPATIENT SERVICES RN Inhaled Oxygen Concentration - - Weight 99.2 kg (218 lb 11.1 oz) 10/02/2014 9:59 PM INPATIENT SERVICES RN Height - - Body Mass Index - - documented in this encounter Discharge Instructions * Discharge Instructions* Marquise Wu MD - 10/03/2014 1:24 AM INPATIENT SERVICES RN Images from the original note were not [...] Document Reviewed: 08/17/2011 ExitCare?? Patient Information ??2013 [employer]. Hematuria, Child Hematuria is when blood is [...] Document Reviewed: 03/12/2009 ExitCare?? Patient Information ??2013 [employer]. TIENT SERVICES RN documented in this encounter Medications at [...] fluticasone propionate (FLONASE) 50 MCG/ACT nasal spray [place] 2 Sprays into each nostril once daily. [...] provided. Mo states understanding at this time\ TIENT SERVICES RN * Senthil Bahena, RN - 10/03/2014 12:30 AM CST PT [...] hours a day, from any computer, through [employer], the online version of our electronic medical record. If you would like to use this service, please call Cherise Mejias, Connectivity Coordinator, at . We appreciate the opportunity to care for your patients. If you would like additional information, please call the emergency department directly at . Sincerely, Marquise Wu MD Division of Emergency Medicine [facility], [place] [facility] EMERGENCY DEPARTMENT AND TRAUMA CENTER [place] LONGEST STANDING LEVEL I PEDIATRIC TRAUMA CENTER Provider contact with the patient: 10/03/2014 00:08 Erick Triana [id number] [facility] EMERGENCY [facility]PARTMENT History [...] fluticasone propionate (FLONASE) 50 MCG/ACT nasal spray [place] 2 Sprays into each nostril once daily. [...] Yellow, Dark Yellow Clarity UA Clear Specific [place] UA 1.015 1.005-1.030 pH UA 6.0 5.0-8.0 [...] diagnoses: Abdominal pain abnormal urine color history TIENT SERVICES RN * Senthil Bahena, RN - 10/02/2014 10:30 PM CST PT in room with father sitting on bed. No distress noted. No needs at this time. PT reporting tylenol working well from triage TIENT SERVICES RN documented in this encounter Plan of Treatment Not on file documented as of this encounter Procedures Procedure Name Priority Date/Time Associated Diagnosis Comments XR ABD OBSTRUCTION SERIES 2VW STAT 10/03/2014 12:45 AM INPATIENT SERVICES RN Abdominal pain URINALYSIS REFLEX TO MICROSCOPIC NO CULTURE STAT 10/02/2014 11:20 PM INPATIENT SERVICES RN URINE MICROSCOPIC ONLY STAT 10/02/2014 11:20 PM INPATIENT SERVICES RN documented in this encounter Results * XR ABD OBSTR SERIES (10/03/2014 12:45 AM INPATIENT SERVICES RN) Anatomical Region Laterality Modality Abdomen Radiographic Christine ging 10/03/2014 7:32 AM INPATIENT SERVICES RN Impressions 10/03/2014 7:33 AM INPATIENT SERVICES RN Retained stool. Narrative 10/03/2014 7:33 AM INPATIENT SERVICES RN Exam: Abdomen obstruction series History: 14-year-old male [...] * URINALYSIS MICROSCOPIC ONLY (10/02/2014 11:20 PM INPATIENT SERVICES RN) RBC UA 2-5 0-2, 2-5 # /hpf 10/03/2014 12:13 AM [facility] WBC UA 0-2 0-2, 2-5 # /hpf 10/03/2014 12:13 AM [facility] Bacteria UA None Seen None Seen, Trace 10/03/2014 12:13 AM [facility] Epithelial Cell UA 0-2 0-2, 2-5 10/03/2014 12:13 AM [facility] Urine URINE SPECIMEN OBTAINED BY CLEAN CATCH PROCEDURE / Unknown 10/02/2014 11:20 PM INPATIENT SERVICES RN 10/02/2014 11:23 PM INPATIENT SERVICES RN Jazmin Mathews MD LAB - URINALYSIS ORD ERABLES [facility] [address] [place] [address] * (ABNORMAL) URINALYSIS ROUTINE AUTO (10/02/2014 11:20 PM INPATIENT SERVICES RN) Color UA Yellow Straw, Yellow, Dark Yellow 10/02/2014 11:28 PM [facility] Clarity UA Clear 10/02/2014 11:28 PM [facility] Specific [place] UA 1.015 1.005 - 1.030 10/02/2014 11:28 PM [facility] pH UA 6.0 5.0 - 8.0 pH 10/02/2014 11:28 PM [facility] Protein UA Negative Negative 10/02/2014 11:28 PM [facility] Blood UA Trace(A) Negative 10/02/2014 11:28 PM [facility] Leukocyte UA Negative Negative 10/02/2014 11:28 PM [facility] Nitrite UA Negative Negative 10/02/2014 11:28 PM [facility] Glucose UA Negative Negative 10/02/2014 11:28 PM [facility] Ketone UA Negative Negative 10/02/2014 11:28 PM [facility] Bilirubin UA Negative Negative 10/02/2014 11:28 PM [facility] Urobilinogen UA 0.2 0.1 - 1.0 EU/dL 10/02/2014 11:28 PM [facility] Urine URINE SPECIMEN OBTAINED BY CLEAN CATCH PROCEDURE / Unknown 10/02/2014 11:20 PM INPATIENT SERVICES RN 10/02/2014 11:23 PM INPATIENT SERVICES RN Marquise Wu MD LAB - URINALYSIS ORD ERABLES Performing Organization Address City/State/[facility] Co de Phone Number [facility] [place] [address] documented in this encounter Visit Diagnoses Diagnosis Hematuria, unspecified- Primary Abdominal pain documented in this encounter Administered Medications Inactive Administered Medications - up to 3 most recent administrations Medication Order MAR Action Action Date Dose Rate Site acetaminophen (TYLENOL) tablet 1,000 mg 1,000 mg, Oral, ONCE, 1 dose, On Wed10/02/14 at 2230 $ Given 10/02/2014 10:01 PM INPATIENT SERVICES RN 1,000 mg documented in this encounter Active and Recently Administered Medications Times are shown in INPATIENT SERVICES RN. Scheduled Medication Order 10/01/2014 10/02/2014 10/03/2014 acetaminophen (TYLENOL) tablet 1,000 mg (COMPLETED) 1,000 mg, Oral, ONCE, 1 dose, On Wed10/02/14 at 2230 2201 ($ Given - Provider: Shital Hudson RN) documented in this encounter Care Teams Manager Database Relationship Specialty Start Date End Date LabargeGodfrey MD [address] [place] [address] PCP - General Pediatrics 05/01/14 Sera Leonard DO Resident Pediatrics 09/27/13 11/04/14 documented as of this encounter
--- OUTSIDE RECORDS SUMMARY | 2024-08-12 05:18 | XMS_ITS | Encounter Summary ---
Author Organization [facility] Address [address] [facility] [place] [address] Care Team Providers Care Clinching Machine Operator Name Role Phone Sera Leonard DO Unavailable [phone] Godfrey Curry MD Primary Care Provider [phone] Reason for Visit * Reason Onset Date Comments Follow-up 05/09/2014 Encounter Details Date Type Department Care Team (Late st Contact Info) Description 05/09/2014 Telephone [facility] - Structural Engineer [address] [place] [id number] Debo Rodriguez [address] [address] Follow-up Social History Tobacco Use Types Packs/Day [...] up with mom accordingly. Debo Rodriguez LCSW [phone] Pager: [phone] documented in this encounter Plan of Treatment Not on file documented as of this encounter Visit Diagnoses Not on filedocumented in this encounter Care Teams Clinching Machine Operator Relationship Specialty Start Date End Date Godfrey Curry MD [address] [place] [address] PCP - General Pediatrics 05/01/14 Sera Leonard DO Resident Pediatrics 09/27/13 11/04/14 documented as of this encounter
--- OUTSIDE RECORDS SUMMARY | 2024-08-12 05:18 | XMS_ITS | Encounter Summary ---
Author Organization [facility] Address [address] [facility] [place] [address] Care Team Providers Care Urban Planning Teacher Name Role Phone Bernardino Brown MD Primary Care Provider [phone] Bernardino Brown MD Unavailable [phone] Reason for Visit * Reason Comments Pain [...] st Contact Info) Description 08/17/2013 1:54 PM COLORMAN - 08/17/2013 4:45 PM COL[facility]MAN Emergency ER at [address] [address] Batsheva Morataya, LOCK UP WORKER-EXTENSION CLERK [address] [place] [address] [address] [place] [address] Headache (Primary Dx); Left flank [...] Comments Blood Pressure 119/57 08/17/2013 2:03 PM COLORMAN Pulse 88 08/17/2013 2:02 PM COLORMAN Temperature 36.8 ??C (98.2 ??F) 08/17/2013 2:03 PM CS T Respiratory Rate 16 08/17/2013 2:02 PM COLORMAN Oxygen Saturation - - Inhaled Oxygen Concentration - - Weight 98.7 kg (217 lb 9.5 oz) 08/17/2013 2:02 P M COLORMAN Height - - Body Mass Index - - documented in this encounter Discharge Instructions * Discharge Instructions* Batsheva Morataya, LOCK UP WORKER-EXTENSION CLERK - 08/17/2013 4:29 PM COLORMAN Images from the original note were not [...] Document Reviewed: 07/08/2012 ExitCare?? Patient Information ??2013 This Week In.General Headache Without Cause A general headache is [...] Document Reviewed: 07/08/2012 ExitCare?? Patient Information ??2013 This Week In. RMAN * Discharge Instructions* Document, Scanned - 08/18/2013 6:46 PM COLORMAN RMAN documented in this encounter Medications at Time [...] hours a day, from any computer, through [employer], the online version of our electronic medical record. If you would like to use this service, please call Cherise Mejias, Connectivity Coordinator, at . We appreciate the opportunity to care for your patients. If you would like additional information, please call the emergency department directly at . Sincerely, Batsheva Morataya APRN-MARYLOU Division of Emergency Medicine [place], [place] [facility] [place] FIRST TRAUMA I DESIGNATED EMERGENCY DEPARTMENT Provider contact with the patient: 08/17/2013 14:26 Erick Triana [id number] [facility] EMERGENCY DEPARTMENT History Chief Complaint Patient [...] food/sodas, and getting daily exercise. Referred to [facility] clinic at [facility] for further evaluation. HAs likely related to [...] Yellow, Dark Yellow Clarity UA Clear Specific [place] UA 1.020 1.005-1.030 pH UA 7.0 5.0-8.0 [...] exercise each day Follow up with the [facility] to discuss safe and healthy weight loss Follow up with PMD in about 1 week if headaches continue Orders Placed This Encounter ??? CULTURE URINE ??? URINALYSIS ROUTINE AUTO ??? URINALYSIS MICROSCOPIC ONLY Pt discharged active, alert and in no acute distress. Clinical Impression Final diagnoses: Headache (Primary) Left flank pain Obesity Parental concern RMAN documented in this encounter Miscellaneous Notes * Miscellaneous Scans - Document, Scanned - 08/18/2013 6:46 PM CST RMAN documented in this encounter Plan of Treatment Scheduled Orders Name Type Priority Associated Diagnoses Order Schedule GLUCOSE - POINT OF CARE POCT No Acknowledgement Routine ONCE for 1 Occurrences starting 08/18/2013 until 08/18/2013 documented as of this encounter Procedures Procedure Name Priority Date/Time Associated Diagnosis Comments URINALYSIS REFLEX TO MICROSCOPIC NO CULTURE STAT 08/17/2013 3:15 PM COLORMAN CULTURE URINE STAT 08/17/2013 3:15 PM COLORMAN URINE MICROSCOPIC ONLY STAT 08/17/2013 3:15 PM COLORMAN documented in this encounter Results * GLUCOSE - POINT OF CARE (08/17/2013 3:19 PM COLORMAN) Blood BLOOD SPECIMEN / Unknown 08/17/2013 3:19 PM COLORMAN 08/18/2013 9:33 AM COLORMAN Batsheva Morataya APRN-EXTENSION CLERK LAB - POINT OF CARE ORDERABLES [facility] [address] [place] [address] * CULTURE URINE (08/17/2013 3:15 PM COLORMAN) Culture <10,000 CFU/mL normal urogenital brian 08/19/2013 6:19 PM [facility] Urine URINE SPECIMEN OBTAINED BY CLEAN CATCH PROCEDURE / Unknown 08/17/2013 3:15 PM COLORMAN 08/17/2013 3:26 PM COLORMAN Batsheva Morataya LOCK UP WORKER-[facility] LAB - MICRO BIOLOGY ORDERABLES Performing Organization Address City/[facility]/ZIP Co de Phone Number [facility] [address] * URINALYSIS ROUTINE AUTO (08/17/2013 3:15 PM COLORMAN) Color UA Yellow Straw, Yellow, Dark Yellow 08/17/2013 3:34 PM [facility] Clarity UA Clear 08/17/2013 3:34 PM [facility] Specific [place] UA 1.020 1.005 - 1.030 08/17/2013 3:34 PM [facility] pH UA 7.0 5.0 - 8.0 pH 08/17/2013 3:34 PM [facility] Protein UA Negative Negative 08/17/2013 3:34 PM [facility] Blood UA Negative Negative 08/17/2013 3:34 PM [facility] Leukocyte UA Negative Negative 08/17/2013 3:34 PM [facility] Nitrite UA Negative Negative 08/17/2013 3:34 PM [facility] Glucose UA Negative Negative 08/17/2013 3:34 PM [facility] Ketone UA Negative Negative 08/17/2013 3:34 PM [facility] Bilirubin UA Negative Negative 08/17/2013 3:34 PM [facility] Urobilinogen UA 1.0 0.1 - 1.0 EU/dL 08/17/2013 3:34 PM [facility] Urine URINE SPECIMEN OBTAINED BY CLEAN CATCH PROCEDURE / Unknown 08/17/2013 3:15 PM COLORMAN 08/17/2013 3:26 PM COLORMAN Batsheva Morataya LOCK UP WORKER-EXTENSION CLERK LAB - URINA LYSIS ORDERABLES Performing Organization Address [facility] Co de Phone Number [facility] [address] [place] [address] * (ABNORMAL) URINALYSIS MICROSCOPIC ONLY (08/17/2013 3:15 PM COLORMAN) RBC UA 0-2 0-2, 2-5 # /hpf 08/17/2013 3:40 PM COLORMAN [facility] WBC UA 0-2 0-2, 2-5 # /hpf 08/17/2013 3:40 PM COLORMAN [facility] Bacteria UA 1+(A) None Seen, Trace 08/17/2013 3:40 PM COLORMAN [facility] Epithelial Cell UA 2-5 0-2, 2-5 08/17/2013 3:40 PM COLORMAN [facility] Mucus UA 08/17/2013 3:40 PM COLORMAN [facility] Comment:Trace Urine URINE SPECIMEN OBTAINED BY CLEAN CATCH PROCEDURE / Unknown 08/17/2013 3:15 PM COLORMAN 08/17/2013 3:26 PM COLORMAN Batsheva Morataya LOCK UP WORKER-EXTENSION CLERK LAB - URINA LYSIS ORDERABLES Performing Organization Address [facility] de Phone Number [facility] [address] [place] [address] documented in this encounter Visit Diagnoses Diagnosis Headache(784.0)- Primary Headache Left flank pain Abdominal pain, unspecified site documented in this encounter Care Teams Urban Planning Teacher Relationship Specialty Start Date End Date Bernardino Brown MD [address] [place] [phone] PCP - General Pediatrics 05/16/13 04/30/14 Bernardino Brown MD [address] [place] [phone] Academic Affairs Specialist Pediatrics 05/16/13 09/26/13 documented as of this encounter
--- OUTSIDE RECORDS SUMMARY | 2024-08-12 05:18 | XMS_ITS | Encounter Summary ---
Author Organization [facility] Address [address] [place] [address] Care Team Providers Care Pacu Nurse Name Role Phone Marisol Roblero MD Primary Care Provider [phone] Reason for Visit * Reason Comments Injury Head Pt fell out of large truck and hit back of head on metal foot rail on truck. No LOC, no vomiting. Pt acting appropriate. + bump to back of head. Initally dizzy, but not anymore. + headache. Encounter Details Date Type Department Care Team (Late st Contact Info) Description 09/03/2011 3:10 PM BRAKE RIDER - 09/03/2011 4:47 PM BRAKE RIDER Emergency ER at [address] [address] Js Gao, FOREIGN CAR MECHANIC-[address] [address] Head injury, unspecified Discharge Disposition: [...] Comments Blood Pressure 113/71 09/03/2011 3:14 PM BRAKE RIDER Pulse 71 09/03/2011 3:14 PM BRAKE RIDER Temperature 36.4 ??C (97.6 ??F) 09/03/2011 3:14 PM CS T Respiratory Rate 16 09/03/2011 3:14 PM BRAKE RIDER Oxygen Saturation 98% 09/03/2011 3:14 PM BRAKE RIDER Inhaled Oxygen Concentration - - Weight 72.3 kg (159 lb 6.3 oz) 09/03/2011 3:14 P M BRAKE RIDER Height - - Body Mass Index - - documented in this encounter Discharge Instructions * Discharge Instructions* Js Gao SENIOR ENGINEER - 09/03/2011 4:27 PM BRAKE RIDER Concussion and Brain Injury, Child A blow [...] child is already taking any medicines (prescription, labs-pug-uhjuvcz or natural remedies). Also, talk with your child's caregiver if your child is taking blood thinners (anticoagulant drugs). These drugs may increase the chances of complications. ?? Only give your child mand-vog-dgurmau or prescription medicines for pain, discomfort or [...] rehabilitation services, and a variety of health care consultant. Among these groups, the Brain Injury Association [...] Information courtesy of the [employer]EL, CDC & [facility]. [employer] National Help Line: [employer] Web site: www.biausa.org CDC Web site: www.cdc.gov/ncipc/tbi Document Released: 11/22/2007 Document Re-Released: 07/01/2009 ExitCare?? Patient Information ??2009 [employer] E RIDER * Discharge Instructions* Document, Scanned - 09/08/2011 8:43 AM BRAKE RIDER E RIDER documented in this encounter Medications at Time [...] with mother. In no distress on discharge. E RIDER * Karla Resendez RN - 09/03/2011 4:24 PM CST Patient has hematoma to occipital area of scalp, denies loss of consciousness, GCS 15 E RIDER * Js Gao NP - 09/03/2011 4:20 [...] hours a day, from any computer, through [employer], the online version of our electronic medical record. If you would like to use this service, please call Cherise Mejias, Connectivity Coordinator, at . We appreciate the opportunity to care for your patients. If you would like additional information, please call the emergency department directly at . Sincerely, Js Gao NP Division of Emergency Medicine [facility], [place] [facility] [place]???[facility] FIRST TRAUMA I DESIGNATED EMERGENCY DEPARTMENT 09/03/2011 4:20 PM Erick Triana [id number] [facility] EMERGENCY DEPT History Chief Complaint Patient [...] ER if there are any behavioral changes E RIDER documented in this encounter Miscellaneous Notes * Miscellaneous Scans - Document, Scanned - 09/22/2011 6:18 PM CST E RIDER * Miscellaneous Scans - Document, Scanned - 09/22/2011 11:48 AM CST E RIDER documented in this encounter Plan of Treatment [...] 600 mg $ Given 09/03/2011 3:45 PM BRAKE RIDER 600 mg documented in this encounter Active and Recently Administered Medications Times are shown in BRAKE RIDER. Scheduled Medication Order 09/01/2011 09/02/2011 09/03/2011 ibuprofen (MOTRIN) tablet 600 mg (COMPLETED) 600 mg, Oral, ONCE, 1 dose, On Karen 09/03/11 at 1600, Maximum dose 600 mg 1545 ($ Given - Prov ider: Tamara Elena) documented in this encounter Care Teams Pacu Nurse Relationship Specialty Start Date End Date Marisol Roblero MD [address] [place] [address] PCP - General 09/03/11 05/15/13 documented as of this encounter
--- OUTSIDE RECORDS SUMMARY | 2024-08-12 05:18 | XMS_ITS | Encounter Summary ---
Author Organization [facility] Address [address] [place] [address] Care Team Providers Care Ice Skating Teacher Name Role Phone Godfrey Curry MD Primary Care Provider Dipika Reddy MD Unavailable Reason for Visit * Reason Onset Date Comments Referral Request 08/12/2016 Encounter Details Date Type Department Care Team (Late st Contact Info) Description 08/12/2016 Telephone [facility] - [facility] Pediatrics [address] [place] [address] Godfrey Curry MD [address] [place] [phone] Referral Request Social History Tobacco Use [...] to resume care with psychology here at [facility], call transferred to the rehabilitation institute . OSOFT BI ARCHITECT * Telephone Encounter - Isacc Lynn MD - 08/12/2016 11:53 AM CST Called but no answer. Left message to call back OSOFT BI ARCHITECT * Telephone Encounter - Bandar Radha Stella - 08/12/2016 11:39 AM CST Mom would like Erick to start seeing a psychologist to discuss his anger issues OSOFT BI ARCHITECT documented in this encounter Plan of Treatment Not on file documented as of this encounter Visit Diagnoses Not on filedocumented in this encounter Care Teams Ice Skating Teacher Relationship Specialty Start Date End Date Godfrey Curry MD [address] [place] [phone] PCP - General Pediatrics 05/01/14 Dipika Reddy MD [address] [place] [phone] Resident Student Resident 11/27/15 documented as of this encounter
--- OUTSIDE RECORDS SUMMARY | 2024-08-12 05:18 | XMS_ITS | Encounter Summary ---
Author Organization [facility] Address [address] [facility] [address] [place] [address] Care Team Providers Care Otr Company Driver Name Role Phone Marisol Roblero MD Primary Care Provider [phone] Reason for Visit * Reason Comments Cold Symptoms allergies Encounter Details Date Type Department Care Team (Latest Contact Info) Description 12/11/2010 1:00 PM CDT - 12/11/2010 11:59 PM CDT Hospital Encounter [facility] Pediatrics - ENT [address] [place] [address] Discharge Disposition: Home or Self Care Social [...] where your child's surgery will take place. [facility] ( DO NOT CANCEL SURGERY WITHOUT NOTIFYING US AT [phone] ) You must notify our office within [...] use a saline nasal spray (such as Early Hammond) up to 4 times a day as needed. Bleeding Blood tinged mucus is normal for 5-7 days after surgery; any increase in bleeding should be reported to the physician. Follow-up Care Return to clinic as needed. For questions or Emergency Care: Call the office at during the week or after 5 pm and on the weekends. You may need to speak with the [id number]. documented in this encounter Medications at Time [...] on filedocumented in this encounter Care Teams Otr Company Driver Relationship Specialty Start Date End Date Marisol Roblero MD [address] [place] [phone] PCP - General 11/13/10 04/30/11 documented as of this encounter
--- OUTSIDE RECORDS SUMMARY | 2024-08-12 05:18 | XMS_ITS | Encounter Summary ---
Author Organization [facility] Address [address] [facility] [place] [address] Care Team Providers Care Match Up Worker Name Role Phone Godfrey Curry MD Primary Care Provider [phone] Dipika Reddy MD Unavailable [phone] Encounter Details Date Type Department Care Team (Latest Contact Info) Description 10/01/2017 4:46 PM LUMP ROLLER - 10/01/2017 11:59 PM [facility] [[email or web address] Hospital Encounter [facility] Pediatrics - Lab [address] [place] [address] Elena Eugene PASara [address] [place] [address] Discharge Disposition: Home or Self Care Social [...] W AUTO DIFFERENTIAL Routine 10/01/2017 4:54 PM LUMP ROLLER Encounter for medication monitoring TRIGLYCERIDES BLOOD Routine 10/01/2017 4 :54 PM LUMP ROLLER Encounter for medication monitoring COMPREHENSIVE METABOLIC PANEL Routine 10/01/2017 4:54 PM LUMP ROLLER Encounter for medication monitoring documented in this encounter Results * (ABNORMAL) TRIGLYCERIDES BLOOD (10/01/2017 4:54 PM LUMP ROLLER) Triglycerides 32(L) 46 - 227 mg/dL 10/01/2017 5:49 PM LUMP ROLLER [facility] Blood BLOOD SPECIMEN / Unknown Lab Venipuncture / Unknown 10/01/2017 4:54 PM LUMP ROLLER 10/01/2017 5:06 PM LUMP ROLLER Valdo Pope Jr., MD LAB - CHEMISTRY ORDERABLES Performing Organization Address City/State/[facility] Co de Phone Number [facility] [place], [place] [phone] * (ABNORMAL) COMPREHENSIVE METABOLIC PANEL (10/01/2017 4:54 PM LUMP ROLLER) Pathologist [facility] Glucose 92 70 - 105 mg/dL 10/01/2017 5:49 PM [facility] Sodium 138 136 - 145 mmol/L 10/01/2017 5:49 PM [facility] Potassium 4.2 3.5 - 5.1 mmol/L 10/01/2017 5:49 PM [facility] Chloride 105 98 - 107 mmol/L 10/01/2017 5:49 PM [facility] CO2 27 20 - 28 mmol/L 10/01/2017 5:49 PM [facility] Calcium 9.56 9.08 - 10.48 mg/dL 10/01/2017 5:49 PM [facility] Anion Gap 6 5 - 20 mmol/L 10/01/2017 5:49 PM [facility] BUN 15.4 5.3 - 18.7 mg/dL 10/01/2017 5:49 PM [facility] Creatinine 0.83 0.61 - 1.07 mg/dL 10/01/2017 5:49 PM [facility] Alkaline Phosphatase 86(L) 100 - 390 U/L 10/01/2017 5:49 PM [facility] ALT 175(H) 6 - 46 U/L 10/01/2017 5:49 PM [facility] AST 66(H) 3 - 35 U/L 10/01/2017 5:49 PM [facility] Protein Total 7.5 6.3 - 8.2 gm/dL 10/01/2017 5:49 PM [facility] Albumin 4.6 3.3 - 4.9 gm/dL 10/01/2017 5:49 PM [facility] Bilirubin Total 0.4 0.3 - 1.2 mg/dL 10/01/2017 5:49 PM [facility] eGFR by MDRD >60 mL/min/1.7 3m2 10/01/2017 5:49 PM [facility] Comment: eGFR calculations are not performed for children under 18 years old. eGFR by MDRD >60 mL/min/1.7 3m2 10/01/2017 5:49 PM [facility] Comment: eGFR calculations are not performed for children under 18 years old. Blood BLOOD SPECIMEN / Unknown Lab Venipuncture / Unknown 10/01/2017 4:54 PM LUMP ROLLER 10/01/2017 5:06 PM [facility] [[email or web address]] Valdo Pope Jr., MD LAB - CHEMISTRY ORDERABLES [facility] [address] [phone] * (ABNORMAL) CBC W AUTO DIFFERENTIAL (10/01/2017 4:54 PM [facility] [[email or web address] Signature WBC 8.8 4.5 - 11.0 x10E9/L 10/01/2017 5:29 PM [facility] WBC Corrected x10E9/L 10/01/2017 5:29 PM [facility] RBC 5.67(H) 4.50 - 5.30 x10E12/L 10/01/2017 5:29 PM [facility] Hemoglobin 15.2 13.0 - 16.0 gm/dL 10/01/2017 5:29 PM [facility] Hematocrit 44.8 37.0 - 49.0 % 10/01/2017 5:29 PM [facility] MCV 79.0 78.0 - 98.0 fl 10/01/2017 5:29 PM [facility] MCH 26.8 25.0 - 35.0 pg 10/01/2017 5:29 PM [facility] MCHC 33.9 31.0 - 37.0 gm/dL 10/01/2017 5:29 PM [facility] Platelet Count 316 100 - 400 x10E9/L 10/01/2017 5:29 PM [facility] RDW-CV 13.2 11.5 - 14.0 % 10/01/2017 5:29 PM [facility] MPV 10.4(H) 6.0 - 9.5 fl 10/01/2017 5:29 PM [facility] Neutrophils % 56.3 31.0 - 78.0 % 10/01/2017 5:29 PM [facility] Lymphocytes % 32.0 13.0 - 54.0 % 10/01/2017 5:29 PM [facility] Monocytes % 7.8 4.0 - 13.0 % 10/01/2017 5:29 PM [facility] Eosinophils % 2.6 0.0 - 8.0 % 10/01/2017 5:29 PM [facility] Basophils % 0.7 % 10/01/2017 5:29 PM [facility] Immature Granulocytes 0.6 % 10/01/2017 5:29 PM [facility] Neutrophil Absolute 4.97 x10E9/L 10/01/2017 5:29 PM [facility] Lymphocytes Absolute 2.83 x10E9/L 10/01/2017 5:29 PM LUMP ROLLER [facility] Monocytes Absolute 0.69 x10E9/L 10/01/2017 5:29 PM [facility] Eosinophils Absolute 0.23 x10E9/L 10/01/2017 5:29 PM [facility] Basophils Absolute 0.06 x10E9/L 10/01/2017 5:29 PM [facility] Immature Granulocytes Absolute 0.05 x10E9/L 10/01/2017 5:29 PM [facility] nRBC Auto 0 /100 WBC 10/01/2017 5:29 PM [facility] Blood BLOOD SPECIMEN / Unknown Lab Venipuncture / Unknown 10/01/2017 4:54 PM LUMP ROLLER 10/01/2017 5:06 PM [facility] [[email or web address]] Valdo Pope Jr., MD LAB - HEMATOLOG Y ORDERABLES Performing Organization Address [facility] de Phone Number [facility] [address] [place] [phone] documented in this encounter Visit Diagnoses Diagnosis Encounter for medication monitoring Encounter for therapeutic drug monitoring documented in this encounter Care Teams Match Up Worker Relationship Specialty Start Date End Date Godfrey Curry MD [address] [place] [phone] PCP - General Pediatrics 05/01/14 Dipika Reddy MD [address] [place] [phone] Resident Student Resident 11/27/15 documented as of this encounter
--- OUTSIDE RECORDS SUMMARY | 2024-08-12 05:18 | XMS_ITS | Encounter Summary ---
Author Organization [facility] Address [address] [place] [address] Care Team Providers Care Twisthand Name Role Phone Sera Leonard DO Unavailable [phone] Godfrey Curry MD Primary Care Provider [phone] Reason for Referral * Social Work - Closed Specialty Diagnoses / Procedures Referred By Nelli pinto Referred To Contact Diagnoses Allergic rhinitis Procedures AMB CONSULT TO SOCIAL WORK Xiomy Bailey APRN-CNP [address] [place] [address] Referral ID Status Reason Start Date Expiration Date Visits Re quested Visits Authorized [id number] Closed 05/07/2014 11/03/2014 1 1 Reason for Visit * Reason Comments ER UC Follow-up resp, congestion, mae nd foot and mouth Encounter Details Date Type Department Care Team (Latest Contact Info) Description 05/07/2014 2:40 PM CDT - 05/07/2014 11:59 PM CDT Hospital Encounter [facility] - [facility] [address] [place] [address] Xiomy Bailey APRN-CNP [address] [place] [address] Discharge Disposition: Home or Self Care Social [...] fluticasone propionate (FLONASE) 50 MCG/ACT nasal spray [place] 2 Sprays into each nostril once daily. 1 Bottle 0 04/17/2014 10/30/2014 loratadine (CLARITIN) 10 MG tabletIndications:Al lergic rhinitis Take 1 Tab by mouth once daily. 30 Tab 3 05/07/2014 10/30/2014 documented as of this encounter Progress Notes * Xiomy Bailey, INTERNET RETAILER-MORTGAGE PROCESSOR - 05/07/2014 3:05 PM CDT Images from [...] worried documented in this encounter Care Teams Twisthand Relationship Specialty Start Date End Date Labarge, Gene M, MD [address] [place] [address] PCP - General Pediatrics 05/01/14 Sera Leonard DO Resident Pediatrics 09/27/13 11/04/14 documented as of this encounter
--- OUTSIDE RECORDS SUMMARY | 2024-08-12 05:18 | XMS_ITS | Encounter Summary ---
Author Organization [facility] Address [address] [place] [address] Care Team Providers Care Cotton Ball Bagger Name Role Phone Godfrey Curry MD Primary Care Provider [phone] Dipika Reddy MD Unavailable [phone] Reason for Visit * Reason Onset Date Comments MEDICATION REFILL 03/23/2017 Encounter Details Date Type Department Care Team (Late st Contact Info) Description 03/23/2017 Refill [facility] Pediatrics - Dermatology [address] [place] [address] Rani Solitario MD [address] [facility] [address] [place] [address] MEDICATION REFILL Social History Tobacco Use Types [...] on filedocumented in this encounter Care Teams Cotton Ball Bagger Relationship Specialty Start Date End Date Godfrey Curry MD [address] [place] [phone] PCP - General Pediatrics 05/01/14 Dipika Reddy MD [facility] [place] [address] Resident Student Resident 11/27/15 documented as of this encounter
--- OUTSIDE RECORDS SUMMARY | 2024-08-12 05:18 | XMS_ITS | Encounter Summary ---
Author Organization [facility] Address [address] [facility] [place] [address] Care Team Providers Care Marketing Consultant Name Role Phone Godfrey Curry MD Primary Care Provider [phone] Abram Gaspar MD Unavailable Unavailabl e Reason for Visit * Reason Comments Chills Started today with b ruddy aches, sore throat, and chills. Unknown temp. Normal PO intake, difficulty swallowing. Normal UOP. Denies NVD. Encounter Details Date Type Department Care Team (Late st Contact Info) Description 02/04/2015 10:47 PM CDT - 02/04/2015 11:36 PM CDT Emergency ER at [address] [address] Viral pharyngitis Discharge Disposition: Home or Self [...] plenty of fluids, and the use of thje-hsx-gcmtgin medication (approved by your caregiver). HOME CARE INSTRUCTIONS ?? Drink enough fluids to keep your urine clear or pale yellow. ?? Eat soft, cold foods such as ice cream, frozen ice pops, or gelatin dessert. ?? Gargle with warm salt water (1 tsp salt per 1 qt of water). ?? If over age 7, throat lozenges may be used safely. ?? Only take vneq-ibn-xtuuuft or prescription medicines for pain, discomfort, or fever as directed by your caregiver. Do not take aspirin. To help prevent spreading viral pharyngitis to others, avoid: ?? Ktpid-bs-nfwts contact with others. ?? Sharing utensils for eating and drinking. ?? Coughing around others. SEEK MEDICAL CARE IF: ?? You are better in a few days, then become worse. ?? You have a fever or pain not helped by pain medicines. ?? There are any other changes that concern you. Document Released: 04/28/2006 Document Revised: 10/10/2012 Document Reviewed: 09/24/2011 ExitCare?? Patient Information ??2013 Doodle. documented in this encounter Medications at Time [...] hours a day, from any computer, through [employer], the online version of our electronic medical record. If you would like to use this service, please call Cherise Mejias, Connectivity Coordinator, at . We appreciate the opportunity to care for your patients. If you would like additional information, please call the emergency department directly at . Sincerely, Tio Fuentes MD Division of Emergency Medicine [facility], [place] [facility] EMERGENCY DEPART[facility] [place] LONGE[place] STANDING LEVEL I PEDIATRIC TRAUMA CENTER Provider contact with the patient: 02/04/2015 23:02 Erick Triana [id number] [facility] History Chief Complaint Patient presents [...] Group A AUNDREA 02/07/2015 7:16 AM CDT [facility] Microbiology ENTIRE THROAT (SURFACE REGION OF NECK) / Unknown 02/04/2015 10:40 PM CDT 02/04/2015 10:45 PM CDT Joselyn Steward MD LAB - MICROB IOLOGY ORDERABLES Performing Organization Address City/[facility]/ZIP Co de Phone Number [facility] [address] [phone] * STREP A SCREEN DIRECT W RFLX STREP A CULTURE (02/04/2015 10:40 PM CDT) Strep A Rapid Negative Negative 02/04/2015 10:55 PM CDT [facility] Microbiology ENTIRE THROAT (SURFACE REGION OF NECK) / Unknown 02/04/2015 10:40 PM CDT 02/04/2015 10:45 PM CDT Narrative [facility] - 02/04/2015 10:55 PM CDT Test has reflexed to a Strep A culture. Joselyn Steward MD LAB - MICROB IOLOGY ORDERABLES [facility] [address] [place] [address] documented in this encounter Visit Diagnoses Diagnosis [...] RN) documented in this encounter Care Teams Marketing Consultant Relationship Specialty Start Date End Date Godfrey Curry MD [facility] [place] [address] PCP - General Pediatrics 05/01/14 Abram Gaspar MD [facility] [place] [address] Student Resident 11/05/14 11/26/15 documented as of this encounter
--- OUTSIDE RECORDS SUMMARY | 2024-08-12 05:18 | XMS_ITS | Encounter Summary ---
Author Organization [facility] Address [address] [facility] [place] [address] Care Team Providers Care Machinist Supervisor Name Role Phone Godfrey uCrry MD Primary Care Provider Dipika Reddy MD [...] - 10/14/2016 11:59 PM CDT Hospital Encounter [facility] Pediatrics - Dermatology [address] [place] [address] Elena Eugene PA-C [address] [place] [address] Discharge Disposition: Home or Self Care Social [...] 10/14/2016 4:0 8 PM CDT Growth Chart: [facility] (Boys, 2-2 0 Years) documented in this [...] together may decrease effectiveness. Please purchase and wswg-tha-qxiwveq 5% benzoyl peroxide wash. An example brand is Panoxyl which can be purchase online or found at [employer]. Please wash your face, chest, and back [...] the following: zinc oxide, titanium dioxide, avobenzone ([employer] 1789) or mexoryl ?? Some brands with [...] Triana in the Pediatric Dermatology Clinic at [facility]. Chief Complaint Patient presents [...] (Z= 0.91) based on CDC 2-20 Years tdcalvq-iia-gfg data using vitals from 10/14/2016. Wt Readings [...] 0.25)* * Growth percentiles are based on [facility] 2-20 Years data. Body mass index is [...] together may decrease effectiveness. Please purchase and cjin-nfq-lkermvq 5% benzoyl peroxide wash. An example brand is Panoxyl which can be purchase online or found at [employer]. Please wash your face, chest, and back [...] skin documented in this encounter Care Teams Machinist Supervisor Relationship Specialty Start Date End Date Godfrey Curry MD [address] [place] [address] PCP - General Pediatrics 05/01/14 Dipika Reddy MD [address] [place] [address] Resident Student Resident 11/27/15 documented as of this encounter
--- OUTSIDE RECORDS SUMMARY | 2024-08-12 05:18 | XMS_ITS | Encounter Summary ---
Author Organization [facility] Address [address] [facility] [place] [address] Care Team Providers Care Armament Repairer Name Role Phone Sera Leonard DO Unavailable [phone] Godfrey Curry MD Primary Care Provider [phone] Reason for Referral * - Closed Specialty Diagnoses / Procedures Referred By Nelli pinto Referred To Contact Diagnoses Vision disturbance Ivet Hinton DO [address] [place] [address] Referral ID Status Reason Start Date Expiration Date V isits Requested Visits Authorized [id number] Closed Specialty Services Required 11/02/2013 05/01/2014 1 1 [facility] Reason for Visit * Reason Comments Failed Vision Screening C/O Failed visio n screening at school, thinks he has had difficulty with distance for a few months. No other eye problems. * - Closed Specialty Diagnoses / Procedures Referred By Nelli pinto Referred To Contact Diagnoses Vision disturbance Ivet Hinton DO [address] [place] [address] Referral ID Status Reason Start Date Expiration Date V isits Requested Visits Authorized [id number] Closed Specialty Services Required 11/02/2013 05/01/2014 1 1 Encounter Details Date Type Department Care Team (Latest Contact Info) Description 09/10/2014 2:36 PM [facility] - 09/10/2014 11:59 PM [facility] Hospital Encounter [facility] Pediatrics - Ophthalmology [address] [place] [address] Ivet Hinton, DO [address] [place] [address] Harpreet Sy MD [address] [place], [place] [id number] Discharge Disposition: Home or Self Care Social [...] fluticasone propionate (FLONASE) 50 MCG/ACT nasal spray [place] 2 Sprays into each nostril once daily. [...] Danielson MD Refraction Cycloplegic Refraction Sphere Cylinder [place] Right -1.00 +0.50 30 Left -0.50 sph Final Rx Sphere Cylinder [place] Right -1.00 +0.50 30 Left -0.50 sph IMPRESSION: Slight decrease visual acuity OD Great alignment / decent stereo RECOMMENDATION: CRx / DFE. Glasses prescription given. FU yearly as needed Louis Danielson MD Patient seen and examined with resident/machine set up. I confirm the history,exam, assessment and plan. In addition, I note History: Says things get blurry OU, worse OD Exam: Mild myopia, good binocularity Assessment/Plan: Rx for school/driving Conside CL's RTC 1 year Please see resident's/machine set up's note for further details Harpreet Sy M.D. 09/10/2014 4:10 PM [facility] documented in this encounter Plan of Treatment Scheduled Referrals Name Type Priority Associated Diagnoses Orde r Schedule Referral to Optometry Outpatient Referral Routine Vision disturbance 1 Occurrences starting 09/10/2014 until 09/10/2014 documented as of this encounter Visit Diagnoses Diagnosis Vision disturbance Unspecified visual disturbance documented in this encounter Care Teams Armament Repairer Relationship Specialty Start Date End Date Godfrey Curry MD [address] [place] [address] PCP - General Pediatrics 05/01/14 Sera Leonard DO Resident Pediatrics 09/27/13 11/04/14 documented as of this encounter
--- OUTSIDE RECORDS SUMMARY | 2024-08-12 05:18 | XMS_ITS | Encounter Summary ---
Author Organization [facility] Address [address] [place] [address] Care Team Providers Care Insurance Marketing Rep Name Role Phone Marisol Roblero MD Primary Care Provider [phone] Reason for Visit * Reason Comments Follow-up adenoidectomy 2 week s ago. Encounter Details Date Type Department Care Team (Latest Contact Info) Description 02/12/2011 2:04 PM CDT - 02/12/2011 11:59 PM CDT Hospital Encounter [facility] Pediatrics - Sleep [address] [place] [address] Discharge Disposition: Home or Self Care Social [...] 02/12/2011 2:0 5 PM CDT Growth Chart: [facility] (Boys, 2-2 0 Years) documented in this [...] the Pediatric Sleep Disorders Clinic at [facility] for follow up of restlesslegs syndrome, sleep [...] Please call me with any questions at [phone]. Daija Lewis MD [facility] documented in this encounter Plan of Treatment Not on file documented as of this encounter Visit Diagnoses Not on filedocumented in this encounter Care Teams Insurance Marketing Rep Relationship Specialty [place] [address] [place] [phone] PCP - General 11/13/10 04/30/11 documented as of this encounter
--- OUTSIDE RECORDS SUMMARY | 2024-08-12 05:18 | XMS_ITS | Encounter Summary ---
Author Organization [facility] Address [address] [facility] [place] [address] Care Team Providers Care Protection Engineer Name Role Phone Sandra Nettles MD Primary Care Provider [phone] Encounter Details Date Type Department Care Team (Latest Contact Info) Description 05/01/2011 12:01 AM CDT - 05/01/2011 11:59 PM CDT Hospital Encounter [facility] Pediatrics - Weight Management [address] [place] [address] Prabha Apodaca, PB/LD [address] [place] [address] Weight Management Discharge Disposition: Home or Self [...] 05/01/2011 2:3 4 PM CDT Growth Chart: [facility] (Boys, 2-2 0 Years) [...] of this encounter Progress Notes * Xavier Shcaffer RD/LD - 05/01/2011 2:45 PM CDT NUTRITION [...] oz) 99.45% of growth percentile based on pkdubz-bdy-sve. Height: 148.3 cm (4' 10.39 ) 79.90% of growth percentile based on ilqdqij-nqm-icy. Body mass index is 31.01 kg/(m^2). 99.19% [...] night. Dinner is served at 4-5pm and rEick reports sometimes his father goes out to [...] to. 24 Hour Recall No breakfast Lunch: [place] dog, pears, green beans, and fries, with chocolate milk. Dinner: @ [facility] restaurant grilled chicken, tortillas, and green peppers [...] Document, Scanned - 06/15/2011 2:11 PM CST PHONE OPERATORS SUPERVISOR documented in this encounter Plan of Treatment Not on file documented as of this encounter Visit Diagnoses Not on filedocumented in this encounter Care Teams Protection Engineer Relationship Specialty [place] [address] [place] [address] PCP - General 05/01/11 05/01/11 documented as of this encounter
--- OUTSIDE RECORDS SUMMARY | 2024-08-12 05:18 | XMS_ITS | Encounter Summary ---
Author Organization [facility] Address [address] [facility] [place] [address] Care Team Providers Care Mortar Maker Name Role Phone Marisol Roblero MD Primary Care Provider [phone] Encounter Details Date Type Department Care Team (Latest Contact Info) Description 01/30/2011 10:24 AM CDT - 01/30/2011 3:15 PM CDT Hospital Encounter [facility] [address] [facility] [place] [address] Anshu Paredes MD [address] [facility] [address] [place] [address] Ear Nose Throat Discharge Disposition: Home or [...] 99.12% 01/30 10:35 AM CDT Growth Chart: [facility] (Boys, 2-2 0 Years) documented in this encounter Discharge Summaries * Prabha Ojeda MD - 01/30/2011 12:39 PM CDT Images from the original note were not included. SAME DAY SURGERY DISCHARGE SUMMARY Patient ID: Erick Triana [id number] 10 y.o. 2000 Discharge Date: 01/30/2011 Discharge [...] for this basename: WBC,HGB,HCT,PLTCOUNT in the last 49559 hoursNo results found for this basename: SODIUM,POTASSIUM,CLORIDE,CO2,BUN,CREATININE,GLUCOSE in the last 14832 hoursNo r esults found for this basename: PT,INR,PTT in the last 43145 hours Test:No results found for this basename: HCGURINE,HCGQUAL in the last 15564 hours VITAL SIGNS Temp: 97.8 ??F Pulse: [...] RN) documented in this encounter Care Teams Mortar Maker Relationship Specialty Start Date End Date Marisol Roblero MD [address] [place] [address] PCP - General 11/13/10 04/30/11 documented as of this encounter
--- OUTSIDE RECORDS SUMMARY | 2024-08-12 05:18 | XMS_ITS | Encounter Summary ---
Author Organization [facility] Address [address] [facility] [address] Care Team Providers Care Golf Ball Marker Name Role Phone Marisol Roblero MD Primary Care Provider [phone] Reason for Referral * Evaluate & Treat Specialty Diagnoses / Procedures Referred By Nelli pinto Referred To Contact Anshu Paredes MD [address] [place] [address] [facility] REFERRAL [address] [place] [address] Referral ID Status Reason Start Date Expiration Date V isits Requested Visits Authorized Specialty Services Required Reason for Visit * Reason Comments Follow-up Adenoidectomy Continues to snore and have sinus congestion Encounter Details Date Type Department Care Team (Latest Contact Info) Description 03/05/2011 2:56 PM CDT - 03/05/2011 11:59 PM CDT Hospital Encounter [facility] Pediatrics - ENT [address] [place] [address] Discharge Disposition: Home or Self Care Social [...] 03/05/2011 2:5 7 PM CDT Growth Chart: [facility] (Boys, 2-2 0 Years) documented in this encounter Medications at Time of Discharge Medication Sig Dispensed Refills Start Date End Date ferrous sulfate 300 (60 FE) MG tablet Take 300 mg by mouth once daily. 05/05/2011 fluticasone propionate (FLONASE) 50 MCG/ACT nasal spray [place] 2 Sprays into each nostril once daily. 1 Bottle 5 03/05/2011 04/02/2011 documented as of this encounter Progress Notes * Anshu Paredes MD - 03/05/2011 3:35 PM CDT [...] unspecified documented in this encounter Care Teams Golf Ball Marker Relationship Specialty Start Date End Date Marisol Roblero MD [address] [place] [phone] PCP - General 11/13/10 04/30/11 documented as of this encounter
--- OUTSIDE RECORDS SUMMARY | 2024-08-12 05:18 | XMS_ITS | Encounter Summary ---
Author Organization [facility] Address [address] [facility] [place] [address] Care Team Providers Care Staining Machine Operator Name Role Phone Marisol Roblero MD Primary Care Provider [phone] Reason for Visit * Reason Comments Weight Problem new pt Encounter Details Date Type Department Care Team (Latest Contact Info) Description 04/10/2011 12:01 AM CDT - 04/10/2011 11:59 PM CDT Hospital Encounter [facility] Pediatrics - Weight Management [facility] [place] [address] [place] [address] [place] [address] Weight Management Discharge Disposition: Home or Self [...] 04/10/2011 1:3 1 PM CDT Growth Chart: [facility] [...] oz) 99.53% of growth percentile based on pzvvva-ddm-psu. Height: 149.1 cm (4' 10.7 ) 84.01% of growth percentile based on gebsuak-kht-svd. Body mass index is 31.08 kg/(m^2). 99.21% [...] the [facility] at [facility]. Erick Triana is a 10 y.o. year [...] BMI-for-age. 99.53% of growth percentile based on fkmfml-lhi-izb. 84.01% of growth percentile based on bcmmqsy-nuf-aym. General: Well appearing, obese, pleasant Thyroid: No [...] CDT [facility] Psychosocial Assessment Erick Triana [id number] 04/10/2011 2000 10 y.o. 8 m.o. Individuals Present: mother and Erick Family constellation: Composition of Primary Household: mother, step-father, Erick, baby sister. Biological father is notinvolved, per mother. If parents have separate households, schedule with non-residential parent: n/a Other caregivers (after-school program, extended [...] . Danny Leung, PHD 04/10/2011 Clinical Psychologist [place] Licensed Psychologist [facility] Program documented in this encounter [...] on filedocumented in this encounter Care Teams Staining Machine Operator Relationship Specialty Start Date End Date Marisol Roblero MD [address] [place] [phone] PCP - General 11/13/10 04/30/11 documented as of this encounter
--- OUTSIDE RECORDS SUMMARY | 2024-08-12 05:18 | XMS_ITS | Encounter Summary ---
Author Organization [facility] Address [address] [facility] [place] [address] Care Team Providers Care Market Research Interviewer Name Role Phone Marisol Roblero MD Primary Care Provider [phone] Encounter Details Date Type Department Care Team (Latest Contact Info) Description 11/13/2010 1:36 PM CDT - 11/13/2010 11:59 PM CDT Hospital Encounter [facility] Pediatrics - Pulmonology [address] [place] [address] Daija Lewis MD [address] [facility] [place] [address] Pulmonary Discharge Disposition: Home or [...] 01/27/2011 mometasone (NASONEX) 50 MCG/ACT nasal spray [place] 1 [place] into each nostril 2 times daily. 12/11/2010 documented as of this encounter Plan of Treatment Not on file documented as of this encounter Visit Diagnoses Not on filedocumented in this encounter Care Teams Market Research Interviewer Relationship Specialty Start Date End Date Marisol Roblero MD [address] [place] [phone] PCP - General 11/13/10 04/30/11 documented as of this encounter
--- OUTSIDE RECORDS SUMMARY | 2024-08-12 05:18 | XMS_ITS | Encounter Summary ---
Author Organization [facility] Address [address] [facility] [place] [address] Care Team Providers Care Development And Housing Director Name Role Phone Kendal Hernandez MD Primary Care Provider [phone] Marisol Roblero MD Primary Care Provider [phone] Sandra Nettles MD Primary Care Provider [phone] Marisol Roblero MD Primary Care Provider [phone] Sandra Nettles MD Primary Care Provider [phone] Marisol Roblero MD Primary Care Provider [phone] Sandra Nettles MD Primary Care Provider [phone] Marisol Roblero MD Primary Care Provider [phone] Sandra Nettles MD Primary Care Provider [phone] Marisol Roblero MD Primary Care Provider [phone] Bernardino Brown MD Primary Care Provider [phone] Bernardino Brown MD Unavailable [phone] Encounter Details Date Type Department Care Team (Late st Contact Info) Description 04/01/2007 Orders Only [facility] - Laboratory [address] [place] [address]. [place] [address] Provider, MD Rikki Social History Tobacco Use [...] PM CDT) Result CASE NUMBER [id number] [facility] PATH REPORT Comment: ORDERING PHYSICIAN ??MARY [...] and interpreted by the attending (teaching) pathologist. Biztalk Developer ? DAMIR MURPHY A PATHOLOGIST ?Elie Rowan M.D. ELECTRONICALLY CHIVO Elie Rowan MISCELLANEOUS SAMPLES / Unknown 04/01/2007 1:45 PM CDT 04/01/2007 2:01 PM CDT Historical Provider LAB - PATHOLOGY/C YTOLOGY ORDERABLES [facility] PATH REPORT documented in this encounter Visit Diagnoses Not on filedocumented in this encounter Care Teams Development And Housing Director Relationship Specialty Start Date End Date Kendal Hernandez MD [address] [place] [address] PCP - General 08/21/10 11/12/10 Marisol Roblero MD [facility] [place] [phone] PCP - General 11/13/10 04/30/11 [place] [address] [place] [address] PCP - General 05/01/11 05/01/11 Marisol Roblero MD [address] [place] [phone] PCP - General 05/02/11 05/17/11 [place] [address] [place] [address] PCP - General 05/18/11 05/20/11 Marisol Roblero MD [address] [place] [phone] PCP - General 05/21/11 06/03/11 [place] [address] [place] [address] PCP - General 06/04/11 07/07/11 Marisol Roblero MD [address] [place] [address] PCP - General 07/08/11 08/24/11 [place] [address] [place] [address] PCP - General 08/25/11 09/02/11 Marisol Roblero MD [address] [place] [phone] PCP - General 09/03/11 05/15/13 Bernardino Brown MD [address] [place] [phone] PCP - General Pediatrics 05/16/13 04/30/14 Bernardino Brown MD [address] [place] [phone] Licensed Sales Producer Pediatrics 05/16/13 09/26/13 documented as of this encounter
--- OUTSIDE RECORDS SUMMARY | 2024-08-12 05:18 | XMS_ITS | Encounter Summary ---
Author Organization [facility] Address [address] [facility] [place] [address] Care Team Providers Care Ornamental Metal Erector Name Role Phone Godfrey Curry MD Primary Care Provider Abram Gaspar MD Unavailable Unavailabl e Reason for Visit * Reason Comments Sore Throat Cough Encounter Details Date Type Department Care Team (Latest Contact Info) Description 07/12/2015 1:57 PM SUPERVISOR ROVING - 07/12/2015 11:59 PM [facility] Hospital Encounter [facility] Pediatrics - [facility] [address] [place] [address] Sarika Aviles MD [address] [place] [address] Discharge Disposition: Home or Self Care Social [...] Comments Blood Pressure 100/72 07/12/2015 2:02 PM SUPERVISOR ROVING Pulse 94 07/12/2015 2:02 PM SUPERVISOR ROVING Temperature 36.9 ??C (98.5 ??F) 07/12/2015 2:02 PM CS T Respiratory Rate - - Oxygen Saturation 97% 07/12/2015 2:02 PM SUPERVISOR ROVING Inhaled Oxygen Concentration - - Weight 107.7 kg (237 lb 7 oz) 07/12/2015 2:02 PM SUPERVISOR ROVING Height 177.1 cm (5' 9.72 ) 07/12/2015 2:02 PM CS T Body Mass Index 34.34 07/12/2015 2:02 PM SUPERVISOR ROVING Body Mass Index Percentile 98.91% 07/12/2015 2:0 2 PM SUPERVISOR ROVING Growth Chart: [facility] (Boys, [...] note were not included. Division [facility] [address] [address] ? Name: Erick Triana Age: 14 y.o. [...] 83%ile (Z=0.95) based on CDC 2-20 Years wiboarg-cdh-tvd data using vitals from 07/12/2015. Weight: 107.7 kg (237 lb 7 oz) 100%ile (Z=2.90) based on CDC 2-20 Years zewmcw-bfq-vdy data using vitals from 07/12/2015. BMI: 34.41 [...] or fail to improve. Sarika Issa MD RVISOR ROVING Associated attestation - Godfrey Curry MD - 07/21/2015 3:13 PM SUPERVISOR ROVING I reviewed history and physical exam with [...] POCT (IP) BEAKER Routine 07/12/2015 3:58 PM SUPERVISOR ROVING documented in this encounter Results * STREP A SCREEN - POCT (IP) BEAKER (07/12/2015 3:58 PM SUPERVISOR ROVING) Strep A Rapid POCT negative Negative [facility] POCT TESTING QC Verified Yes Yes [facility] PO CT TESTING Throat swab (specimen) ENTIRE THROAT (SURFACE REGION OF NECK) / Unknown 07/12/2015 3:58 PM SUPERVISOR ROVING Sarika Aviles MD LAB - POINT OF CARE ORDERABLES [facility] POCT TESTING [address] [phone] documented in this encounter Visit Diagnoses Diagnosis Sore throat- Primary Acute pharyngitis * Assessment & Plan Note - Sarika Aviles MD - 07/12/2015 5:00 PM SUPERVISOR ROVING Associated Problem(s): Viral URI Assessment: Has had [...] several days - Received flu vaccine today RVISOR ROVING documented in this encounter Care Teams Ornamental Metal Erector Relationship Specialty Start Date End Date Godfrey Curry MD [address] [place] [phone] PCP - General Pediatrics 05/01/14 Abram Gaspar MD [address] [place] [phone] Student Resident 11/05/14 11/26/15 documented as of this encounter
--- OUTSIDE RECORDS SUMMARY | 2024-08-12 05:18 | XMS_ITS | Encounter Summary ---
Author Organization [facility] Address [address] [facility] [place] [address] Care Team Providers Care Sewing Machine Maintenance Mechanic Name Role Phone Marisol Roblero MD Primary Care Provider [phone] Reason for Visit * Reason Comments Cough x 3-4 days; yest whe ezey cough; didn't use inhaler. no fevers. alert, lungs clear. Encounter Details Date Type Department Care Team (Late st Contact Info) Description 11/18/2011 3:03 PM CDT - 11/18/2011 4:56 PM CDT Emergency ER at [address] [address] Dana Carrillo RN,CPNP [address] [place] [address] URI (upper respiratory infection) Discharge Disposition: [...] Document Re-Released: 10/15/2009 ExitCare?? Patient Information ??2009 [employer]. Common Cold, Child Colds are caused by a virus which affects the air passages to the lung. This is also called an upper respiratory tract infection. Colds are easy to spread (contagious), especially during the first 3 or 4 days. Medications that kill germs (antibiotics) cannot cure a cold. Cold germs are spread by coughs, sneezes, and gcks-vi-iuon contact. A cold will usually clear up [...] closed mouth. ?? Only give your child ltry-axa-doukqby or prescription medicines for pain, discomfort, or [...] worse. Document Released: 04/28/2006 Document Re-Released: 07/01/2009 [facility]?? Patient Information ??2009 [employer]. * Discharge Instructions* Document, Scanned - 11/23/2011 12:51 PM CDT documented in this encounter Medications at Time of Discharge Medication Sig Dispensed Refills Start Date End Date albuterol HFA (PROVENTIL;VENTOLIN;DE OAIR) 108 (90 BASE) MCG/ACT inhalerIndications:Cou gh [...] hours a day, from any computer, through [employer], the online version of our electronic medical record. If you would like to use this service, please call Cherise Mejias, Connectivity Coordinator, at . We appreciate the opportunity to care for your patients. If you would like additional information, please call the emergency department directly at . Sincerely, Dana Carrillo RN,CPNP Division of Emergency Medicine [place], [place] [facility] [place]???[facility] FIRST TRAUMA I DESIGNATED EMERGENCY DEPARTMENT Provider contact with the patient: 11/18/2011 4:21 PM Erick Triana [id number] [facility] EMERGENCY DEPT History Chief Complaint Patient [...] site documented in this encounter Care Teams Sewing Machine Maintenance Mechanic Relationship Specialty Start Date End Date Marisol Roblero MD [address] [place], [place] [address] [place] [address] PCP - General 09/03/11 05/15/13 documented as of this encounter
--- OUTSIDE RECORDS SUMMARY | 2024-08-12 05:18 | XMS_ITS | Encounter Summary ---
Author Organization [facility] Address [address] [facility] [place] [address] Care Team Providers Care Wheel Polisher Name Role Phone Sandra Nettles MD Primary Care Provider [phone] Reason for Visit * Reason Comments Pain Leg per pt, muscle in ba ck of thigh has been hurting for the past week (hamstring muscle) Encounter Details Date Type Department Care Team (Late st Contact Info) Description 08/25/2011 8:16 PM DOCK BUILDER - 08/25/2011 9:46 PM DOCK BUILDER Emergency ER at [address] [address] Ese Morin, CLINICAL SOCIAL WORKER[address] [phone] Unspecified site of sprain and strain Discharge [...] Comments Blood Pressure 119/76 08/25/2011 8:30 PM DOCK BUILDER Pulse 88 08/25/2011 8:30 PM DOCK BUILDER Temperature 36.4 ??C (97.6 ??F) 08/25/2011 8:30 PM CS T Respiratory Rate 16 08/25/2011 8:30 PM DOCK BUILDER c ta Oxygen Saturation - - Inhaled Oxygen Concentration - - Weight 74.8 kg (164 lb 14.5 oz) 08/25/2011 8:30 PM DOCK BUILDER Height - - Body Mass Index - - documented in this encounter Discharge Instructions * Discharge Instructions* Ese Morin RN,CPNP - 08/25/2011 9:16 PM DOCK BUILDER Sprains Sprains are painful injuries to the [...] Document Released: 01/04/2009 ExitCare?? Patient Information ??2009 [employer]. BUILDER * Discharge Instructions* Document, Scanned - 08/29/2011 12:42 PM DOCK BUILDER BUILDER documented in this encounter Medications at Time [...] hours a day, from any computer, through [facility], the online version of our electronic medical record. If you would like to use this service, please call Cherise Mejias, Connectivity Coordinator, at . We appreciate the opportunity to care for your patients. If you would like additional information, please call the emergency department directly at . Sincerely, Ese Morin RN,CPNP Division of Emergency Medicine [facility], [place] [facility] [place] FIRST TRAUMA I DESIGNATED EMERGENCY DEPARTMENT 08/25/2011 8:50 PM Erick Garcialivan [id number] [facility] EMERGENCY DEPT History Chief Complaint Patient [...] Primary? Unspecified site of sprain and strain BUILDER documented in this encounter Miscellaneous Notes * Miscellaneous Scans - Document, Scanned - 09/11/2011 12:12 PM CST BUILDER * Miscellaneous Scans - Document, Scanned - 09/11/2011 11:35 AM CST BUILDER documented in this encounter Plan of Treatment Not on file documented as of this encounter Visit Diagnoses Diagnosis Unspecified site of sprain and strain documented in this encounter Care Teams Wheel Polisher Relationship Specialty Start [place] [address] [place] [address] PCP - General 08/25/11 09/02/11 documented as of this encounter
--- OUTSIDE RECORDS SUMMARY | 2024-08-12 05:19 | XMS_ITS | Encounter Summary ---
Author Organization [facility] Address [address] [place] [address]. [place] [id number] [place], [place] [id number] Care Team Providers Care Certified Maintenance Welder Name Role Phone None, Provider Primary Care [...] on filedocumented in this encounter Care Teams Certified Maintenance Welder Relationship Specialty Start Date End Date None, Provider, PCP - General 09/19/19 documented as of this encounter
--- OUTSIDE RECORDS SUMMARY | 2024-08-12 05:19 | XMS_ITS | Encounter Summary ---
Author Organization [facility] Address [address] [place] [address]. [place] [phone] [place], [place] [id number] Care Team Providers Care Home Office Claims Examiner Name Role Phone None, Provider Primary Care [...] on filedocumented in this encounter Care Teams Home Office Claims Examiner Relationship Specialty Start Date End Date None, Provider, PCP - General 09/19/19 documented as of this encounter
--- OUTSIDE RECORDS SUMMARY | 2024-08-12 05:19 | XMS_ITS | Encounter Summary ---
Author Organization [facility] Address [address] [place] [address]. [place], [place] [phone] [place] [address] Care Team Providers Care Mask Former Name Role Phone Unavailable Primary Care Provider Unavailabl e Encounter Details Date Type Department Care Team (Late st Contact Info) Description 03/02/2007 [place] [address] , Generic Conversion, Social History Tobacco Use [...]
--- OUTSIDE RECORDS SUMMARY | 2024-08-12 05:19 | XMS_ITS | Encounter Summary ---
Author Organization [facility] Address [address] [place] [address]. [place], [place] [id number] [place] [address] Care Team Providers Care Industrial Tractor Driver Name Role Phone None, Provider MD Primary Care Provider Unavaila ble Reason for Referral * Imaging (Urgent) - Closed Specialty Diagnoses / Procedures Referred By Contac t Referred To Contact RADIOLOGY Procedures CT ABD+PEL WWO CON Lemuel Angulo MD [address] [address] Phone: tel: fax: Referral ID Status Reason Start Date Expiration Date Visits Re quested Visits Authorized [id number] Closed 09/20/2019 10/18/2020 1 1 T BUYER Reason for Visit * Reason Comments Urinary Symptoms Constipation Encounter Details Date Type Department Care Team (Late st Contact Info) Description 09/19/2019 10:33 PM PLANT BUYER - 09/20/2019 3:09 AM PLANT BUYER Emergency [facility] [place] [address] Lemuel Angulo MD [address] [address] Urinary Symptoms; Constipation Discharge Disposition: Home or [...] Comments Blood Pressure 135/84 09/20/2019 12:36 AM PLANT BUYER Pulse 76 09/20/2019 12:36 AM PLANT BUYER Temperature 36.6 ??C (97.8 ??F) 09/19/2019 1 0:02 PM PLANT BUYER Respiratory Rate 18 09/20/2019 12:3 6 AM PLANT BUYER Oxygen Saturation 97% 09/20/2019 12: 36 AM PLANT BUYER Inhaled Oxygen Concentration - - Weight 143.8 kg (317 lb 0.3 oz) 020 10:08 PM PLANT BUYER Height 182.9 cm (6') 09/19/2019 10:02 PM PLANT BUYER Body Mass Index 43 09/19/2019 10:02 PM PLANT BUYER documented in this encounter Discharge Instructions * Discharge Instructions* Lemuel Angulo MD - 09/20/2019 2:57 AM PLANT BUYER Our practice is committed to providing you the very best in healthcare. We want to hear from you! Please fill out the survey you get from us. Your feedback is anonymous and helps us improve the patient experience for you and others in the community we serve. T BUYER * Attachments The following attachments cannot be sent through Care Everywhere. * Constipation Discharge Instructions, Adult (American) * Blood in the Urine (Hematuria) in Adults (American) documented in this encounter Medications at Time [...] of Present Illness History provided by: Patient cosmetics demonstrator used: No Patient is a 19-year-old male [...] (!) 159/100 135/84 Pulse: 104 76 Resp: Temp: 97.8 ??F (36.6 ??C) TempSrc: Oral [...] Judgment normal, Mood normal. Medical decision making: [facility] Diagnosis management comments: 19-year-old male presents [...] CLEAN CATCH COLOR YELLOW TRANSPARENCY CLEAR Specific [place] (U) 1.025 1.001 - 1.030 U PH [...] Disposition: Discharge Follow-Up: Leny Macias DO 3 [facility] [address] [facility] [address] Call in 1 day for pcp follow-up Nathan Shelley MD 3 [facility] [address] [facility] [address] Call in 1 day for GI follow-up IMary Ellen, acting as a scribe, am personally taking down the notes in the presence of Dr. Lemuel Angulo,*. Take no action on this note until reviewed and authenticated by the physician. Lemuel Angulo MD 09/20/19 0308 T BUYER * Radha Gan RN - 09/19/2019 10:03 PM CST Patient arrived to er via triage with c/o painful urination and blood in urine starting today. Alsostates constipation, last normal BM 3-4 days ago. Denies pain now T BUYER documented in this encounter Plan of Treatment Not on file documented as of this encounter Procedures Procedure Name Priority Date/Time Associated Diagnosis Comments CT ABD+PEL WWO CON STAT 09/20/2019 1: 47 AM PLANT BUYER HC URINALYSIS AUTO W/O MICRO STAT 09/19/2019 10:57 PM PLANT BUYER COMPREHENSIVE METABOLIC PANEL STAT 09/19/2019 10:57 PM PLANT BUYER CBC W/DIFF AUTOMATED STAT 09/19/2019 10:57 PM PLANT BUYER XR ABD AP+UPRT OR DECUB STAT 09/19/2019 10:38 PM PLANT BUYER documented in this encounter Results * CT ABD+PEL WWO CON (09/20/2019 1:47 AM PLANT BUYER) Anatomical Region Laterality Modality Abdomen Computed Tomogra phy 09/20/2019 1:52 AM PLANT BUYER Impressions 09/20/2019 1:58 AM PLANT BUYER =====IMPRESSION:===== Normal CT urogram. Narrative 09/20/2019 1:58 AM PLANT BUYER EXAMINATION: CT Abdomen and pelvis with and [...] Visible bones unremarkable. =====IMPRESSION:===== Normal CT urogram. Lemuel Angulo MD CT Final Result * (ABNORMAL) URINALYSIS (09/19/2019 10:57 PM PLANT BUYER) SPECIMEN TYPE URINE CLEAN CATCH 09/19/2019 10:51 PM [facility] COLOR (U) YELLOW 09/19/2019 11:26 PM [facility] TRANSPARENCY CLEAR 09/19/2019 11:26 PM [facility] SPECIFIC GRAVITY (U) 1.025 1.001 - 1.030 09/19/2019 11:26 PM [facility] U PH 5.0 5.0 - 9.0 09/19/2019 11:26 PM [facility] LEUKOCYTES (U) NEGATIVE NEGATIVE 09/19/2019 11:26 PM [facility] NITRITES NEGATIVE NEGATIVE 09/19/2019 11:26 PM [facility] PROTEIN (U) NEGATIVE <30 MG/DL 09/19/2019 11:26 PM [facility] URINE GLUCOSE NEGATIVE NEGATIVE MG/DL 09/19/2019 11:26 PM [facility] KETONES MG/DL (U) TRACE(A) NEGATIVE MG/DL 09/19/2019 11:26 PM [facility] UROBILINOGEN 2.0(A) NEGATIVE MG/DL 09/19/2019 11:26 PM [facility] BILIRUBIN (U) NEGATIVE NEGATIVE MG/DL 09/19/2019 11:26 PM [facility] BLOOD (U) NEGATIVE NEGATIVE 09/19/2019 11:26 PM [facility] CULTURE & SENSITIVITY INDICATED? CULTURE IS NOT INDICATED 09/19/2019 11:26 PM PLANT BUYER [facility] URINE SPECIMEN OBTAINED BY CLEAN CATCH PROCEDURE / Unknown 09/19/2019 10:57 PM PLANT BUYER Eloisa CLAIRE URINE ORDERABLES Final Resu lt [facility] [address] [place] [address], * (ABNORMAL) COMPREHENSIVE METABOLIC PANEL (09/19/2019 10:57 PM PLANT BUYER) GLUCOSE 113(H) 70 - 99 MG/DL 09/19/2019 11:50 PM [facility] BUN 14 7 - 18 MG/DL 09/19/2019 11:50 PM [facility] CREATININE S/P/B 0.92 0.7 - 1.3 MG/DL 09/19/2019 11:50 PM [facility] SODIUM S/P/B 139 136 - 145 MMOL/L 09/19/2019 11:50 PM [facility] POTASSIUM S/P/B 3.7 3.5 - 5.1 MMOL/L 09/19/2019 11:50 PM [facility] CHLORIDE S/P/B 106 100 - 108 MMOL/L 09/19/2019 11:50 PM [facility] CO2 27.4 21 - 32 MMOL/L 09/19/2019 11:50 PM [facility] CALCIUM S/P/B 10.1 8.5 - 10.1 MG/DL 09/19/2019 11:50 PM [facility] BILIRUBIN TOTAL S/P/B 0.6 0.2 - 1.1 MG/DL 09/19/2019 11:50 PM [facility] TOTAL PROTEIN S/P/B 8.2 6.4 - 8.2 G/DL 09/19/2019 11:50 PM [facility] ALBUMIN S/P/B 4.7 3.4 - 5.0 G/DL 09/19/2019 11:50 PM [facility] AST 217(H) 15 - 37 U/L 09/19/2019 11:50 PM [facility] ALT 567(H) 16 - 60 U/L 09/19/2019 11:50 PM [facility] ALKALINE PHOSPHATASE S/P/B 74 50 - 136 U/L 09/19/2019 11:50 PM [facility] ANION GAP 5.6 5 - 15 MMOL/L 09/19/2019 11:50 PM [facility] BUN CREATININE RATIO 15.2 6 - 26 09/19/2019 11:50 PM [facility] A/G RATIO 1.3 1.0 - 2.0 RATIO 09/19/2019 11:50 PM [facility] EGFR NON-AFR. AMER. >90 >90 ML/MIN/1.7 3 M2 09/19/2019 11:50 PM [facility] EGFR AFR. AMER. >90 >90 ML/MIN/1.7 3 M2 09/19/2019 11:50 PM [facility] Comment: NOTE: eGFR is not calculated for patients <18 years of age. This is an estimated GFR (CKD EPI) and should not be used for calculating drug doses. 09/19/2019 10:5 7 PM PLANT BUYER us Eloisa CLAIRE LABORATORY Final Resul t [facility] [address] [place] [address], [place] [phone] * (ABNORMAL) CBC W/DIFF AUTOMATED (09/19/2019 10:57 PM [facility] WBC 11.2 4.5 - 13.0 x10'3/uL 09/19/2019 11:29 PM [facility] RBC 5.78 4.70 - 6.10 x10'6/uL 09/19/2019 11:29 PM [facility] HGB 15.8 14.0 - 18.0 G/DL 09/19/2019 11:29 PM [facility] HCT 45.4 43.0 - 54.0 % 09/19/2019 11:29 PM [facility] MCV 78.5(L) 80.0 - 94.0 FL 09/19/2019 11:29 PM [facility] MCH 27.3 27.0 - 31.0 PG 09/19/2019 11:29 PM [facility] MCHC 34.8 32.0 - 36.0 G/DL 09/19/2019 11:29 PM [facility] RDW 13.2 11.5 - 14.5 % 09/19/2019 11:29 PM [facility] PLT 368 130 - 400 x10'3/uL 09/19/2019 11:29 PM [facility] MPV 10.1 9.3 - 12.2 FL 09/19/2019 11:29 PM [facility] DIFFERENTIAL TYPE AUTOMATED DIFFERENTIAL 09/19/2019 11:29 PM [facility] NEUTROPHILS % 62.4 % 09/19/2019 11:29 PM [facility] LYMPHOCYTES % 25.6 % 09/19/2019 11:29 PM [facility] MONOCYTES % 8.8 % 09/19/2019 11:29 PM [facility] EOSINOPHILS 2.0 % 09/19/2019 11:29 PM PLANT BUYER [facility] BASOPHILS 0.5 % 09/19/2019 11:29 PM PLANT BUYER [facility] IMMATURE GRANS % 0.7 % 09/19/19 20 11:29 PM PLANT BUYER [facility] ABS. NEUTROPHILS TOTAL 6.98 1.80 - 8.00 x10'3/uL 09/19/2019 11:29 PM PLANT BUYER [facility] ABS. LYMPHOCYTES 2.87 1.20 - 5.20 x10'3/uL 09/19/2019 11:29 PM PLANT BUYER [facility] ABS. MONOCYTES 0.99(H) 0.30 - 0.82 x10'3/uL 09/19/2019 11:29 PM PLANT BUYER [facility] ABS. EOSINOPHILS 0.22 0.04 - 0.54 x10'3/uL 09/19/2019 11:29 PM PLANT BUYER [facility] ABS. BASOPHILS 0.06 0.01 - 0.08 x10'3/uL 09/19/2019 11:29 PM PLANT BUYER [facility] ABS. IMMATURE GRANULOCYTES 0.08 0.00 - 0.49 x10'3/uL 09/19/2019 11:29 PM PLANT BUYER [facility] 09/19/2019 10:5 7 PM PLANT BUYER us Eloisa Plummer PA LABORATORY Final Resul t [facility] [address] [place] [address], * XR ABD AP+UPRT OR DECUB (09/19/2019 10:38 PM PLANT BUYER) Anatomical Region Laterality Modality Abdomen Radiographic Christine ging 09/19/2019 10:5 6 PM PLANT BUYER Impressions 09/19/2019 10:56 PM PLANT BUYER IMPRESSION: Nonobstructive bowel gas pattern. Moderate stool burden. Narrative 09/19/2019 10:56 PM PLANT BUYER Examination: Abdomen obstruction series Date: ??09/19/2019 10:25 [...] Wed09/20/19 at 0147 Given 09/20/2019 1:47 AM PLANT BUYER 100 mLs documented in this encounter Active and Recently Administered Medications Times are shown in PLANT BUYER. PRN Medication Order 09/18/2019 09/19/2019 09/20/2019 iopamidol (ISOVUE-370) 76 % injection 100 mL (COMPLETED) 100 mL, Intravenous, IMG once as needed, Contrast, 1 dose, Starting on Wed09/20/19 at 0147, Until Wed09/20/19 at 0147 0147 (Given - Provid er: David Abdi, RTR) documented in this encounter Care Teams Industrial Tractor Driver Relationship Specialty Start Date End Date None, Provider, PCP - General 09/19/19 documented as of this encounter
--- OUTSIDE RECORDS SUMMARY | 2024-08-12 05:19 | XMS_ITS | Clinical Summary ---
Author Organization [facility] Address [facility]. [place], [place] [address] [place] [address] Care Team Providers Care Order Picker Name Role Phone None, Provider MD Primary [...] 10 days. 10 capsule 07/28/2024 08/07/19 25 hydrOXYzine (ATARAX) 25 MG tablet Take 1-3 tablets (25-75 mg total) by mouth 3 (three) times daily as needed for Anxiety. 45 tablet 07/29/2024 08/03/19 25 Encounters Date Type Department Care Team Description 07/28/2024 11:56 PM COUNTRY MANAGER - 07/29/2024 12:27 AM [facility] Emergency [facility] [place] [address] Unique Cardenas PA Dizziness Discharge Disposition: Home or Self Care (Routine Discharge) 07/28/2024 4:21 PM COUNTRY MANAGER - 07/28/2024 7:32 PM [facility] Emergency [facility] [place] [address] Dhruv Nettles MD Nausea Discharge Disposition: Home [...] Comments Blood Pressure 172/97 07/28/2024 11:49 PM COUNTRY MANAGER Pulse 85 07/28/2024 11:49 PM COUNTRY MANAGER Temperature 36.7 ??C (98 ??F) 07/28/2024 11:49 PM COUNTRY MANAGER Respiratory Rate 16 07/28/2024 11:49 PM COUNTRY MANAGER Oxygen Saturation 99% 07/28/2024 11:49 PM COUNTRY MANAGER Inhaled Oxygen Concentration - - Weight 122.5 kg (270 lb) 07/28/2024 11:49 PM COUNTRY MANAGER Height 180.3 cm (5' 11 ) 07/28/2024 11:49 PM COUNTRY MANAGER Body Mass Index 37.66 07/28/2024 11:49 PM COUNTRY MANAGER Plan of Treatment Health Maintenance Due Date [...] Comments TSH W/REFLEX STAT 07/28/2024 4:24 PM COUNTRY MANAGER MAGNESIUM STAT 07/28/2024 4:24 PM COUNTRY MANAGER COMPREHENSIVE METABOLIC PANEL STAT 07/28/2024 4:24 PM COUNTRY MANAGER CBC W/DIFF AUTOMATED STAT 07/28/2024 4:24 PM COUNTRY MANAGER from Last 3 Months Results * TSH W/REFLEX (07/28/2024 4:24 PM COUNTRY MANAGER) TSH 0.836 0.358 - 3.74 uIU/ML 07/28/2024 5:16 PM COUNTRY MANAGER [facility] Comment: HIGH DOSES OF BIOTIN MAY INTERFERE WITH THIS TEST RESULT. CORRELATION TO CLINICAL HISTORY AND PRESENTATION RECOMMENDED. FREE T4 NOT INDICATED 07/28/2024 4:24 PM COUNTRY MANAGER Unique CLAIRE LABORATORY Final Result [facility] [address] [place] [address], [place] [phone] * (ABNORMAL) COMPREHENSIVE METABOLIC PANEL (07/28/2024 4:24 PM COUNTRY MANAGER) GLUCOSE 108(H) 70 - 99 MG/DL 07/28/2024 5:16 PM COUNTRY MANAGER [facility] BUN 9 7 - 18 MG/DL 07/28/2024 5:16 PM COUNTRY MANAGER [facility] CREATININE S/P/B 0.94 0.7 - 1.3 MG/DL 07/28/2024 5:16 PM COUNTRY MANAGER [facility] SODIUM S/P/B 135(L) 136 - 145 MMOL/L 07/28/2024 5:16 PM [facility] POTASSIUM S/P/B 3.6 3.5 - 5.1 MMOL/L 07/28/2024 5:16 PM [facility] CHLORIDE S/P/B 103 97 - 115 MMOL/L 07/28/2024 5:16 PM [facility] CO2 25.9 21 - 32 MMOL/L 07/28/2024 5:16 PM [facility] CALCIUM S/P/B 9.5 8.5 - 10.1 MG/DL 07/28/2024 5:16 PM [facility] BILIRUBIN TOTAL S/P/B 0.7 0.2 - 1.2 MG/DL 07/28/2024 5:16 PM [facility] Comment: THIS ASSAY IS NOT RECOMMENDED FOR PATIENTS UNDERGOING TREATMENT WITH ELTROMBOPAG DUE TO THE POTENTIAL FOR FALSELY ELEVATED RESULTS. TOTAL PROTEIN S/P/B 8.2 6.4 - 8.2 G/DL 07/28/2024 5:16 PM [facility] ALBUMIN S/P/B 4.4 3.4 - 5.0 G/DL 07/28/2024 5:16 PM [facility] AST 24 15 - 37 U/L 07/28/2024 5:16 PM [facility] ALT 47 16 - 60 U/L 07/28/2024 5:16 PM [facility] ALKALINE PHOSPHATASE S/P/B 60 50 - 136 U/L 07/28/2024 5:16 PM [facility] ANION GAP 6.1 2 - 10 MMOL/L 07/28/2024 5:16 PM [facility] BUN CREATININE RATIO 9.6 6 - 26 07/28/2024 5:16 PM [facility] A/G RATIO 1.2 1.0 - 2.0 RATIO 07/28/2024 5:16 PM [facility] GFR ESTIMATE >90 >90 ML/MIN/1.7 3 M2 07/28/2024 5:16 PM [facility] Comment: NOTE: eGFR is not calculated for patients <18 years of age or gender unknown. This is an estimated GFR calculation using the new CKD EPI creatinine equation without race and so does not require a correction factor for race. This estimated GFR should not be used for calculating drug doses. 07/28/2024 4:24 PM COUNTRY MANAGER us Unique CLAIRE LABORATORY Final Result [facility] [address] [place] [address], * (ABNORMAL) CBC W/DIFF AUTOMATED (07/28/2024 4:24 PM COUNTRY MANAGER) WBC 8.11 4.5 - 11.0 x10'3/uL 07/28/2024 4:42 PM [facility] RBC 6.03 4.70 - 6.10 x10'6/uL 07/28/2024 4:42 PM [facility] HGB 16.1 14.0 - 18.0 G/DL 07/28/2024 4:42 PM [facility] HCT 46.2 43.0 - 54.0 % 07/28/2024 4:42 PM [facility] MCV 76.6(L) 80.0 - 94.0 FL 07/28/2024 4:42 PM [facility] MCH 26.7(L) 27.0 - 31.0 PG 07/28/2024 4:42 PM [facility] MCHC 34.8 32.0 - 36.0 G/DL 07/28/2024 4:42 PM [facility] RDW 14.1 11.5 - 14.5 % 07/28/2024 4:42 PM [facility] PLT 305 130 - 400 x10'3/uL 07/28/2024 4:42 PM [facility] MPV 9.9 9.3 - 12.2 FL 07/28/2024 4:42 PM [facility] DIFFERENTIAL TYPE AUTOMATED DIFFERENTIAL 07/28/2024 4:42 PM [facility] NEUTROPHILS % 71.6 % 07/28/2024 4:42 PM [facility] LYMPHOCYTES % 20.8 % 07/28/2024 4:42 PM [facility] MONOCYTES % 5.4 % 07/28/2024 4:42 PM [facility] EOSINOPHILS 1.2 % 07/28/2024 4:42 PM [facility] BASOPHILS 0.5 % 07/28/2024 4:42 PM [facility] IMMATURE GRANS % 0.5 % 07/28/20 4:42 PM [facility] ABS. NEUTROPHILS 5.80 1.80 - 7.70 x10'3/uL 07/28/2024 4:42 PM [facility] ABS. LYMPHOCYTES 1.69 1.00 - 4.80 x10'3/uL 07/28/2024 4:42 PM [facility] ABS. MONOCYTES 0.44 0.30 - 0.82 x10'3/uL 07/28/2024 4:42 PM [facility] ABS. EOSINOPHILS 0.10 0.04 - 0.54 x10'3/uL 07/28/2024 4:42 PM COUNTRY MANAGER [facility] ABS. BASOPHILS 0.04 0.01 - 0.08 x10'3/uL 07/28/2024 4:42 PM COUNTRY MANAGER [facility] ABS. IMMATURE GRANULOCYTES 0.04 0.00 - 0.49 x10'3/uL 07/28/2024 4:42 PM COUNTRY MANAGER [facility] 07/28/2024 4:24 PM COUNTRY MANAGER Unique CLAIRE LABORATORY Final Result [facility] [address] [place] [address], [place] [phone] * MAGNESIUM (07/28/2024 4:24 PM COUNTRY MANAGER) MAGNESIUM 2.1 1.8 - 2.4 MG/DL 07/28/2024 5:16 PM COUNTRY MANAGER [facility] 07/28/2024 4:24 PM COUNTRY MANAGER Unique CLAIRE LABORATORY Final Result [facility] [address] [place] [address], [place] [phone] from Last 3 Months Insurance [place] Care Teams Order Picker Relationship Specialty Start Date End Date None, Provider, PCP - General 09/19/19
--- OUTSIDE RECORDS SUMMARY | 2024-08-12 05:19 | XMS_ITS | Encounter Summary ---
Author Organization [facility] Address [address] [place] [address]. [place], [place] [id number] [place] [id number] Care Team Providers Care Hotel Administrative Assistant Name Role Phone None, Provider MD Primary Care Provider Unavaila ble Reason for Visit * Reason Comments Nausea Encounter Details Date Type Department Care Team (Late st Contact Info) Description 07/28/2024 4:21 PM NURSING SERVICES MANAGER - 07/28/2024 7:32 PM NURSING SERVICES MANAGER Emergency [facility] [place] [address] Dhruv Nettles MD [address] [place], [place] [id number] Nausea Discharge Disposition: Home or Self Care [...] Comments Blood Pressure 169/110 07/28/2024 4:16 PM NURSING SERVICES MANAGER Pulse 73 07/28/2024 4:16 PM NURSING SERVICES MANAGER Temperature 36.3 ??C (97.4 ??F) 07/28/2024 4:16 PM CS T Respiratory Rate 16 07/28/2024 4:16 PM NURSING SERVICES MANAGER Oxygen Saturation 99% 07/28/2024 4:16 PM NURSING SERVICES MANAGER Inhaled Oxygen Concentration - - Weight 122.5 kg (270 lb) 07/28/2024 4:16 PM NURSING SERVICES MANAGER Height 180.3 cm (5' 11 ) 07/28/2024 4:16 PM NURSING SERVICES MANAGER Body Mass Index 37.66 07/28/2024 4:16 PM NURSING SERVICES MANAGER documented in this encounter Discharge Instructions * Attachments The following attachments cannot be sent through Care Everywhere. * Dealing With Nausea and Vomiting From the Drugs You Take (Omani) * Constipation, Adult ED (Omani) * Clear Liquid Diet (Omani) documented in this encounter Medications at Time of Discharge ondansetron (ZOFRAN) 4 MG tablet Take 1 tablet (4 mg total) by mouth every 8 (eight) hours as needed for Nausea. 7 tablet 07/28/2024 sucralfate (CARAFATE) 1 G tablet Take 1 tablet (1 g total) by mouth 4 (four) times daily before meals and nightly. 120 tablet 07/28/2024 docusate sodium (COLACE) 100 MG capsule Take 1 capsule (100 mg total) by mouth 2 (two) times daily for 10 days. 10 capsule 07/28/2024 08/07/2024 hydrOXYzine (ATARAX) 25 MG tablet Take 1-3 [...] also reports testosterone injections x 5 months. ING SERVICES MANAGER ING SERVICES MANAGER documented in this encounter Plan of Treatment Not on file documented as of this encounter Procedures Procedure Name Priority Date/Time Associated Diagnosis Comments TSH W/REFLEX STAT 07/28/2024 4:24 PM NURSING SERVICES MANAGER COMPREHENSIVE METABOLIC PANEL STAT 07/28/2024 4:24 PM NURSING SERVICES MANAGER CBC W/DIFF AUTOMATED STAT 07/28/2024 4:24 PM NURSING SERVICES MANAGER MAGNESIUM STAT 07/28/2024 4:24 PM NURSING SERVICES MANAGER documented in this encounter Results * TSH W/REFLEX (07/28/2024 4:24 PM NURSING SERVICES MANAGER) TSH 0.836 0.358 - 3.74 uIU/ML 07/28/2024 5:16 PM NURSING SERVICES MANAGER [facility] Comment: HIGH DOSES OF BIOTIN MAY INTERFERE WITH THIS TEST RESULT. CORRELATION TO CLINICAL HISTORY AND PRESENTATION RECOMMENDED. FREE T4 NOT INDICATED 07/28/2024 4:24 PM NURSING SERVICES MANAGER us [facility] Final Result Performing Organization Address [facility]/ZIP Co de Phone Number [facility] [address] [place] [address], [place] [phone] * MAGNESIUM (07/28/2024 4:24 PM NURSING SERVICES MANAGER) Pathologist [facility] MAGNESIUM 2.1 1.8 - 2.4 MG/DL 07/28/2024 5:16 PM NURSING SERVICES MANAGER [facility] 07/28/2024 4:24 PM NURSING SERVICES MANAGER us [facility] Final Result Performing Organization Address City/[facility]/ZIP Co de Phone Number [facility] [address] [place] [address], [place] [phone] * (ABNORMAL) COMPREHENSIVE METABOLIC PANEL (07/28/2024 4:24 PM NURSING SERVICES MANAGER) Pathologist [facility] GLUCOSE 108(H) 70 - 99 MG/DL 07/28/2024 5:16 PM NURSING SERVICES MANAGER [facility] BUN 9 7 - 18 MG/DL 07/28/2024 5:16 PM [facility] CREATININE S/P/B 0.94 0.7 - 1.3 MG/DL 07/28/2024 5:16 PM [facility] SODIUM S/P/B 135(L) 136 - 145 MMOL/L 07/28/2024 5:16 PM [facility] POTASSIUM S/P/B 3.6 3.5 - 5.1 MMOL/L 07/28/2024 5:16 PM [facility] CHLORIDE S/P/B 103 97 - 115 MMOL/L 07/28/2024 5:16 PM [facility] CO2 25.9 21 - 32 MMOL/L 07/28/2024 5:16 PM [facility] CALCIUM S/P/B 9.5 8.5 - 10.1 MG/DL 07/28/2024 5:16 PM [facility] BILIRUBIN TOTAL S/P/B 0.7 0.2 - 1.2 MG/DL 07/28/2024 5:16 PM [facility] Comment: THIS ASSAY IS NOT RECOMMENDED FOR PATIENTS UNDERGOING TREATMENT WITH ELTROMBOPAG DUE TO THE POTENTIAL FOR FALSELY ELEVATED RESULTS. TOTAL PROTEIN S/P/B 8.2 6.4 - 8.2 G/DL 07/28/2024 5:16 PM [facility] ALBUMIN S/P/B 4.4 3.4 - 5.0 G/DL 07/28/2024 5:16 PM [facility] AST 24 15 - 37 U/L 07/28/2024 5:16 PM [facility] ALT 47 16 - 60 U/L 07/28/2024 5:16 PM [facility] ALKALINE PHOSPHATASE S/P/B 60 50 - 136 U/L 07/28/2024 5:16 PM [facility] ANION GAP 6.1 2 - 10 MMOL/L 07/28/2024 5:16 PM [facility] BUN CREATININE RATIO 9.6 6 - 26 07/28/2024 5:16 PM [facility] A/G RATIO 1.2 1.0 - 2.0 RATIO 07/28/2024 5:16 PM [facility] GFR ESTIMATE >90 >90 ML/MIN/1.7 3 M2 07/28/2024 5:16 PM [facility] Comment: NOTE: eGFR is not calculated for patients <18 years of age or gender unknown. This is an estimated GFR calculation using the new CKD EPI creatinine equation without race and so does not require a correction factor for race. This estimated GFR should not be used for calculating drug doses. 07/28/2024 4:24 PM NURSING SERVICES MANAGER [facility] Final Result [facility] [address] [place] [address], * (ABNORMAL) CBC W/DIFF AUTOMATED (07/28/2024 4:24 PM NURSING SERVICES MANAGER) WBC 8.11 4.5 - 11.0 x10'3/uL 07/28/2024 4:42 PM [facility] RBC 6.03 4.70 - 6.10 x10'6/uL 07/28/2024 4:42 PM [facility] HGB 16.1 14.0 - 18.0 G/DL 07/28/2024 4:42 PM [facility] HCT 46.2 43.0 - 54.0 % 07/28/2024 4:42 PM [facility] MCV 76.6(L) 80.0 - 94.0 FL 07/28/2024 4:42 PM NURSING SERVICES MANAGER [facility] MCH 26.7(L) 27.0 - 31.0 PG 07/28/2024 4:42 PM [facility] MCHC 34.8 32.0 - 36.0 G/DL 07/28/2024 4:42 PM [facility] RDW 14.1 11.5 - 14.5 % 07/28/2024 4:42 PM [facility] PLT 305 130 - 400 x10'3/uL 07/28/2024 4:42 PM [facility] MPV 9.9 9.3 - 12.2 FL 07/28/2024 4:42 PM [facility] DIFFERENTIAL TYPE AUTOMATED DIFFERENTIAL 07/28/2024 4:42 PM [facility] NEUTROPHILS % 71.6 % 07/28/2024 4:42 PM [facility] LYMPHOCYTES % 20.8 % 07/28/2024 4:42 PM [facility] MONOCYTES % 5.4 % 07/28/2024 4:42 PM [facility] EOSINOPHILS 1.2 % 07/28/2024 4:42 PM [facility] BASOPHILS 0.5 % 07/28/2024 4:42 PM [facility] IMMATURE GRANS % 0.5 % 07/28/20 4:42 PM [facility] ABS. NEUTROPHILS 5.80 1.80 - 7.70 x10'3/uL 07/28/2024 4:42 PM [facility] ABS. LYMPHOCYTES 1.69 1.00 - 4.80 x10'3/uL 07/28/2024 4:42 PM [facility] ABS. MONOCYTES 0.44 0.30 - 0.82 x10'3/uL 07/28/2024 4:42 PM NURSING SERVICES MANAGER [facility] ABS. EOSINOPHILS 0.10 0.04 - 0.54 x10'3/uL 07/28/2024 4:42 PM NURSING SERVICES MANAGER [facility] ABS. BASOPHILS 0.04 0.01 - 0.08 x10'3/uL 07/28/2024 4:42 PM NURSING SERVICES MANAGER [facility] ABS. IMMATURE GRANULOCYTES 0.04 0.00 - 0.49 x10'3/uL 07/28/2024 4:42 PM NURSING SERVICES MANAGER [facility] 07/28/2024 4:24 PM NURSING SERVICES MANAGER [facility] Final Result [facility] [address] [place] [address], [place] [phone] documented in this encounter Visit Diagnoses Diagnosis Nausea- Primary Nausea alone Constipation Unspecified constipation documented in this encounter Administered Medications Inactive Administered Medications - up to 3 most recent administrations Medication Order MAR Action Action Date Dose Rate Site ondansetron (ZOFRAN) injection 4 mg 4 mg, Intravenous, Once, 1 dose, On Wed07/28/24 at 1630, IV push over 2-5 minutes. Given 07/28/2024 4:25 PM NURSING SERVICES MANAGER 4 mg documented in this encounter Active and Recently Administered Medications Times are shown in NURSING SERVICES MANAGER. Scheduled Medication Order 07/26/2024 07/27/2024 07/28/2024 ondansetron (ZOFRAN) injection 4 mg (COMPLETED) 4 mg, Intravenous, Once, 1 dose, On Wed07/28/24 at 1630, IV push over 2-5 minutes. 1625 (Given - Provid er: Blas Zavala RN) documented in this encounter Care Teams Hotel Administrative Assistant Relationship Specialty Start Date End Date None, Provider, PCP - General 09/19/19 documented as of this encounter
--- OUTSIDE RECORDS SUMMARY | 2024-08-12 05:19 | XMS_ITS | Encounter Summary ---
Author Organization [facility] Address [facility]. [place], [place] [address] [place] [address] Care Team Providers Care Hand Cigar Making Supervisor Name Role Phone None, Provider Primary Care Provider Unavaila ble Reason for Referral * Imaging (Emergency) - New Request Specialty Diagnoses / Procedures Referred By Nelli t Referred To Contact RADIOLOGY Procedures CT ABD+PEL W IV CON ONLY Ese Michelle, TREVOR [address] [address] Phone: tel: fax: Referral ID Status Reason Start Date Expiration Date V isits Requested Visits Authorized [id number] New Request 11/22/2023 11/21/2024 1 1 Reason for Visit * Reason Comments Abdominal Pain Encounter Details Date Type Department Care Team (Late st Contact Info) Description 11/22/2023 6:06 PM CDT - 11/22/2023 9:07 PM CDT Emergency [facility] Emergency Room [place], [place] [address] Lemuel Baez MD [address] [place] [id number] Abdominal Pain Discharge Disposition: Home or Self [...] health and reviewed your work-up. Please access IDverget to see my note and work-up. Medical care is complex and your health is important to me. I encourage you to ask questions for further understanding of today's visit and return if something changes. Sincerely, Dr. Baez * Attachments The following attachments cannot be sent through Care Everywhere. * Abdominal pain ([place]) documented in this encounter ED Notes * [...] medications for this patient. Disposition: Discharge Follow-Up: [facility] Emergency Room [address] [facility] [address] If symptoms worsen Deisy Guzman DO [address] [facility] [address] Call in 1 day for primary care [...] Michelle NP - 11/22/2023 6:02 PM CDT [place], [place] EMERGENCY DEPARTMENT ENCOUNTER Medical Screening Examination 11/22/23 6:03 PM Chief Complaint : No chief complaint on file. HPI : Erick Triana is a 23-year-old male who presents to the Emergency Department today for evaluation of epigastric pain for 3 days, taking tums and pepto with some relief. No hx of abd problems. Vital Signs: Filed Vitals: 11/22/231801 BP: (!) 144/81 Pulse: 77 Resp: 18 [...] APRN, dictated portions of this note using Physitrack speech recognition software. Occasional wrong word or sound-alike substitutions may have occurred due to the inherent limitations ofvoice recognition software. Please read carefully and recognize, using context, where the substitutions may have occurred. Ese Michelle NP 11/22/231802 Cosigned by Lemuel Baez MD at 11/22/2023 [...] by size criteria, no significant change from 2020 comparison. Peritoneum: No intraperitoneal free air. No [...] enlarged by sizecriteria, no significant change from 2020 comparison. Peritoneum: No intraperitoneal free air. No intraperitoneal free fluid. Vessels: Normal. MUSCULOSKELETAL: Abdominal wall: No soft tissue mass. Bones: No acute osseous abnormality. Soft tissues: Unremarkable. IMPRESSION: No acute findings of the abdomen or pelvis. Referred By: Interpreted By: Radha Huang DO, 11/22/2023 7:42 PM us Ese Michelle PRODUCTION SAMPLER CT Final Result * LIPASE (11/22/2023 6:11 PM CDT) LIPASE 23 13 - 75 UNITS/L 11/22/2023 6:56 PM CDT [facility] 11/22/2023 6:11 PM CDT us Ese Michelle NP LABORATORY Final Result [facility] [address] [place] [address], [place] [phone] * COMPREHENSIVE METABOLIC PANEL (11/22/2023 6:11 PM CDT) [facility] GLUCOSE 95 70 - 99 MG/DL 11/22/2023 6:56 PM CDT [facility] BUN 14 7 - 18 MG/DL 11/22/2023 6:56 PM CDT [facility] CREATININE S/P/B 0.82 0.7 - 1.3 MG/DL 11/22/2023 6:56 PM CDT [facility] SODIUM S/P/B 139 136 - 145 MMOL/L 11/22/2023 6:56 PM CDT [facility] POTASSIUM S/P/B 4.0 3.5 - 5.1 MMOL/L 11/22/2023 6:56 PM CDT [facility] CHLORIDE S/P/B 107 100 - 108 MMOL/L 11/22/2023 6:56 PM CDT [facility] CO2 26.3 21 - 32 MMOL/L 11/22/2023 6:56 PM CDT [facility] CALCIUM S/P/B 10.1 8.5 - 10.1 MG/DL 11/22/2023 6:56 PM CDT [facility] BILIRUBIN TOTAL S/P/B 0.6 0.2 - 1.2 MG/DL 11/22/2023 6:56 PM CDT [facility] Comment: THIS ASSAY IS NOT RECOMMENDED FOR PATIENTS UNDERGOING TREATMENT WITH ELTROMBOPAG DUE TO THE POTENTIAL FOR FALSELY ELEVATED RESULTS. TOTAL PROTEIN S/P/B 8.0 6.4 - 8.2 G/DL 11/22/2023 6:56 PM CDT [facility] ALBUMIN S/P/B 4.4 3.4 - 5.0 G/DL 11/22/2023 6:56 PM CDT [facility] AST 18 15 - 37 U/L 11/22/2023 6:56 PM CDT [facility] ALT 50 16 - 60 U/L 11/22/2023 6:56 PM CDT [facility] ALKALINE PHOSPHATASE S/P/B 68 50 - 136 U/L 11/22/2023 6:56 PM CDT [facility] ANION GAP 5.7 5 - 15 MMOL/L 11/22/2023 6:56 PM CDT [facility] BUN CREATININE RATIO 17.1 6 - 26 11/22/2023 6:56 PM CDT [facility] A/G RATIO 1.2 1.0 - 2.0 RATIO 11/22/2023 6:56 PM CDT [facility] GFR ESTIMATE >90 >90 ML/MIN/1.7 3 M2 11/22/2023 6:56 PM CDT [facility] Comment: NOTE: eGFR is not calculated for patients <18 years of age. This is an estimated GFR calculation using the new CKD EPI creatinine equation without race and so does not require a correction factor for race. This estimated GFR should not be used for calculating drug doses. 11/22/2023 6:11 PM CDT us Ese Michelle NP LABORATORY Final Result [facility] [address] [place] [address], [place] [phone] * (ABNORMAL) CBC W/DIFF AUTOMATED (11/22/2023 6:11 PM CDT) [facility] WBC 10.53 4.5 - 11.0 x10'3/uL 11/22/2023 6:31 PM CDT [facility] RBC 5.78 4.70 - 6.10 x10'6/uL 11/22/2023 6:31 PM CDT [facility] HGB 15.3 14.0 - 18.0 G/DL 11/22/2023 6:31 PM CDT [facility] HCT 45.3 43.0 - 54.0 % 11/22/2023 6:31 PM CDT [facility] MCV 78.4(L) 80.0 - 94.0 FL 11/22/2023 6:31 PM CDT [facility] MCH 26.5(L) 27.0 - 31.0 PG 11/22/2023 6:31 PM CDT [facility] MCHC 33.8 32.0 - 36.0 G/DL 11/22/2023 6:31 PM CDT [facility] RDW 13.4 11.5 - 14.5 % 11/22/2023 6:31 PM CDT [facility] PLT 313 130 - 400 x10'3/uL 11/22/2023 6:31 PM CDT [facility] MPV 10.0 9.3 - 12.2 FL 11/22/2023 6:31 PM CDT [facility] DIFFERENTIAL TYPE AUTOMATED DIFFERENTIAL 11/22/2023 6:31 PM CDT [facility] NEUTROPHILS % 70.2 % 11/22/2023 6:31 PM CDT [facility] LYMPHOCYTES % 21.3 % 11/22/2023 6:31 PM CDT [facility] MONOCYTES % 6.4 % 11/22/2023 6:31 PM CDT [facility] EOSINOPHILS 1.4 % 11/22/2023 6:31 PM CDT [facility] BASOPHILS 0.2 % 11/22/2023 6:31 PM CDT [facility] IMMATURE GRANS % 0.5 % 11/22/19 6:31 PM CDT [facility] ABS. NEUTROPHILS 7.40 1.80 - 7.70 x10'3/uL 11/22/2023 6:31 PM CDT [facility] ABS. LYMPHOCYTES 2.24 1.00 - 4.80 x10'3/uL 11/22/2023 6:31 PM CDT [facility] ABS. MONOCYTES 0.67 0.30 - 0.82 x10'3/uL 11/22/2023 6:31 PM CDT [facility] ABS. EOSINOPHILS 0.15 0.04 - 0.54 x10'3/uL 11/22/2023 6:31 PM CDT [facility] ABS. BASOPHILS 0.02 0.01 - 0.08 x10'3/uL 11/22/2023 6:31 PM CDT [facility] ABS. IMMATURE GRANULOCYTES 0.05 0.00 - 0.49 x10'3/uL 11/22/2023 6:31 PM CDT [facility] 11/22/2023 6:11 PM CDT us Ese Michelle NP LABORATORY Final Result [facility] [address] [place] [address], [place] [phone] documented in this encounter Visit Diagnoses Diagnosis [...] on Wed11/22/23 at 1923, Until Wed11/22/23 at 1923 1923 (Given - Provid er: Liz Hernandez, RTR) documented in this encounter Care Teams Hand Cigar Making Supervisor Relationship Specialty Start Date End Date None, Provider, PCP - General 09/19/19 documented as of this encounter
--- OUTSIDE RECORDS SUMMARY | 2024-08-12 05:19 | XMS_ITS | Encounter Summary ---
Author Organization [facility] Address [address] [place] [address]. [place], [place] [address] [place] [address] Care Team Providers Care Die Baker Name Role Phone None, Provider MD Primary Care Provider Unavaila ble Reason for Visit * Reason Comments Dizziness Encounter Details Date Type Department Care Team (Late st Contact Info) Description 07/28/2024 11:56 PM SENIOR SALES MANAGER - 07/29/2024 12:27 AM SENIOR SALES MANAGER Emergency [facility] [place] [address] [facility] [address] [place] [address] Dizziness Discharge Disposition: Home or Self Care [...] Comments Blood Pressure 172/97 07/28/2024 11:49 PM SENIOR SALES MANAGER Pulse 85 07/28/2024 11:49 PM SENIOR SALES MANAGER Temperature 36.7 ??C (98 ??F) 07/28/2024 11:49 PM SENIOR SALES MANAGER Respiratory Rate 16 07/28/2024 11:49 PM SENIOR SALES MANAGER Oxygen Saturation 99% 07/28/2024 11:49 PM SENIOR SALES MANAGER Inhaled Oxygen Concentration - - Weight 122.5 kg (270 lb) 07/28/2024 11:49 PM SENIOR SALES MANAGER Height 180.3 cm (5' 11 ) 07/28/2024 11:49 PM SENIOR SALES MANAGER Body Mass Index 37.66 07/28/2024 11:49 PM SENIOR SALES MANAGER documented in this encounter Discharge Instructions * Discharge Instructions* DAKOTAH Gaviria - 07/28/2024 11:54 PM SENIOR SALES MANAGER Images from the original note were [...] care by your primary care physician or protection consultant. Please mention to your follow-up physician that you were in the emergency department and request that they review your labs and/or imaging to ensure all findings are followed up on. OR SALES MANAGER * Attachments The following attachments cannot be sent through Care Everywhere. * Anxiety Discharge Instructions, Adult (Croatian) documented in this encounter Medications at Time [...] DAKOTAH Gaviria - 07/28/2024 11:54 PM CST [place], [place] EMERGENCY DEPARTMENT ENCOUNTER HISTORICAL INFORMATION Primary Care Doctor: Provider Neo, Patient information was obtained primarily from the patient, nursing notes. History/Exam limitations: None Provider at Bedside Date/Time Event User Comments 07/28/24 2939 Provider at Bedside Assessing Patient UNIQUE BENITES [...] questions appropriately. Speech is normal. Mood/affect: anxious [facility] ED Course as of 07/29/24 0015 Sat [...] tablet 1 mg (1 mg Oral Given 07/29/242) Current Discharge Medication List START taking these medications Details hydrOXYzine (ATARAX) 25 MG tablet Take 1-3 tablets (25-75 mg total) by mouth 3 (three) times daily as needed for Anxiety. Qty: 45 tablet, Refills: 0 Class: Eprescribe Pharmacy: [id number] [facility] [address] (Ph #: [phone]) DAKOTAH GAVIRIA Disclaimer: Portions of this note were created using H2scan, a speech recognition software. Occasional wrong word or sound alike substitutions may have occurred due to the inherent limitations of voice recognition software. Please read the note carefully and use context to recognize when substitutions may have occurred. DAKOTAH Gaviria 07/29/24 0015 Cosigned by Jesus Jaimes MD,PHD at 07/29/2024 3:35 AM SENIOR SALES MANAGER OR SALES MANAGER OR SALES MANAGER * Gabby Rivera RN - 07/28/2024 11:45 PM CST Pt presents to the ER with c/o tingling head and brain fog, stated had the feelings like this earlier, when he was here, for dizziness. OR SALES MANAGER documented in this encounter Plan of [...] 07/29/24 at 0000 Given 07/29/2024 12:03 AM SENIOR SALES MANAGER 1 mg documented in this encounter Active and Recently Administered Medications Times are shown in SENIOR SALES MANAGER. Scheduled Medication Order 07/27/2024 07/28/2024 07/29/2024 LORazepam (ATIVAN) tablet 1 mg (COMPLETED) 1 mg, Oral, Once, 1 dose, On 07/29/24 at 0000 0003 (Given - Provid er: Irene Bridges RN) documented in this encounter Care Teams Die Baker Relationship Specialty Start Date End Date None, Provider, PCP - General 09/19/19 documented as of this encounter
--- OUTSIDE RECORDS SUMMARY | 2024-08-12 05:19 | XMS_ITS | Encounter Summary ---
Author Organization [facility] Address [address] [place] [address]. [place] [id number] [place] [address] Care Team Providers Care Supervisor [employer] Name Role Phone None, Provider Primary Care [...] filedocumented in this encounter Care Teams Supervisor [employer] Relationship Specialty Start Date End Date None, Provider, PCP - General 09/19/19 documented as of this encounter
== END 2024-08-05 | disposition left against medical advice (07) ==
PROVIDERS: PCP Physician Assistant
DX: R11.2 Nausea with vomiting, unspecified (principal)
CPT/HCPCS: 99199

== ENCOUNTER 2024-09-07 00:49 | Day surgery (SDC) | payer OTHER, SELFPAY ==
[2024-08-29 14:03] VITALS: BMI 35.2
--- OUTSIDE RECORDS SUMMARY | 2024-09-07 00:52 | XMS_ITS | Encounter Summary ---
Author Organization [facility] Healthcare Address [address] [place] [address] Care Team Providers Care Endodontic Assistant Name Role Phone Sivan Boyd Primary Care Provider + Reason for Visit * Reason Comments Arm Pain Encounter Details Date Type Department Care Team (Late st Contact Info) Description 09/06/2024 2:43 PM CURATORIAL SPECIALIST - 09/06/2024 3:49 PM [facility] Emergency [facility] ([place], [place]) Emergency Department [address] [place] [id number] Left arm pain (Primary Dx) Discharge Disposition: Discharge to home or self care Social History Tobacco Use Types Packs/Day Years Used Date Smoking Tobacco: Never Smokeless Tobacco: Never AUDIT-C Answer Date Recorded Q1: How often do you have a drink containing alcohol? Never 08/31/2024 Q2: How many drinks containi ng alcohol do you have on a typical day when you are drinking? Patient does not drink Q3: How often do you have si x or more drinks on one occasion? Never 08/31/2024 PHQ-2 Answer Date Recorded PHQ-2 Total Score (If total score is 3 or more points, staff should administer the PHQ-9) 2 08/24/2024 Personal Safety Answer Date Recorded Have you ever been in or are you currently in a harmful physical or emotional relationship or is someone making you feel afraid or unsafe? Denies 09/06/2024 Sex and Gender Information Value Date Recorded Sex Assigned at Not on file Legal Sex Male 12:57 PM CURATORIAL SPECIALIST Gender Identity Not on file Sexual Orientation Not on file documented as of this encounter Last Filed Vital Signs Vital Sign Reading Time Taken Comments Blood Pressure 138/92 09/06/2024 3:42 PM CURATORIAL SPECIALIST Pulse 79 09/06/2024 3:42 PM CURATORIAL SPECIALIST Temperature 36.6 C (97.9 F) 09/06/2024 1:45 PM CURATORIAL SPECIALIST Respiratory Rate 18 09/06/2024 3:42 PM CURATORIAL SPECIALIST Oxygen Saturation 100% 09/06/2024 3:42 PM CURATORIAL SPECIALIST Inhaled Oxygen Concentration - - Weight 120.1 kg (264 lb 12.4 oz) 09/06/2024 1:45 PM CURATORIAL SPECIALIST Height - - Body Mass Index 35.91 08/27/2024 6:21 AM CURATORIAL SPECIALIST documented in this encounter Discharge Instructions * Discharge Instructions* Chrissie Jean PA - 09/06/2024 3:37 PM CURATORIAL SPECIALIST Thank you for allowing us to take care of you at [facility]. Please follow up with your primary care physician or specialist, as soon as possible, and ideally within 7 days. Please take any new medications as prescribed. Please return to the emergency department for worsening of your symptoms or any new problems which may arise. It is mandatory that you follow up, as recommended, with a primary care physician or specialist, per your discharge paperwork.You have received emergency care only at your visit today, an this is nota substitute for ongoing care, further evaluation, or treatment. Therefore, follow-up as directed is not optional, but mandatory. This ensures that any incidental abnormal radiographic and laboratoryfindings are evaluated appropriately. Return immediately for any new symptoms, worsening of symptoms, or persistent symptoms. We are open22/02 and will take care of you. You can take gefa-nzs-hcylrcc ibuprofen and Tylenol for your pain. If you start to experience worsening pain, redness, swelling, chest pain or shortness breath please return to the emergency room immediately. TORIAL SPECIALIST TORIAL SPECIALIST * Attachments The following attachments cannot be sent through Care Everywhere. * Arm Pain (AfterCare(R) Instructions(ER/ED)) (Polish) documented in this encounter Medications at Time of Discharge azithromycin (ZITHROMAX) 250 mg tablet Take 2 tabs (500 mg) by mouth today, than 1 tab (250 mg) daily for 4 days. 6 tablet 08/28/2024 cyclobenzaprine (FLEXERIL) 10 mg tablet Take 1 tablet (10 mg total) by mouth 2 (two) times a day as needed for muscle spasms 20 tablet 08/05/2024 meclizine (ANTIVERT) 25 mg tablet Take 1 tablet (25 mg total) by mouth 3 (three) times a day as needed for dizziness 30 tablet 08/08/2024 documented as of this encounter Discharge Disposition Disposition Code Departure Means Destination Comment s Discharge to home or self care documented in this encounter ED Notes * Chrissie Jena PA - 09/06/2024 3:33 PM CST CHIEF COMPLAINT: Chief Complaint Patient presents with Arm Pain HPI 3:37 PM Erick Triana is a 24 y.o. male presenting to the ED c/o intermittent pain in his left arm after his IV infiltrated 2 weeks ago. Patient states pain is intermittent lasts for a few minutesand goes away. Patient states he feels like it is into his hand and into his left-sided chest. Patient denies any shortness of breath, chest pain and states pain originates in his arm. Patient deniesany swelling, redness, CP in his arm. Patient denies taking any pain medication for her symptoms. Patient denies any numbness, tingling, coldness in his left hand. PCP: Sivan Boyd PA PAST MEDICAL HISTORY Past Medical History: Diagnosis Date H. pylori infection Nausea & vomiting Ongoing n/v x1 month PAST SURGICAL HISTORY Past Surgical History: Procedure Laterality Date TONSILLECTOMY N/A 7 years old FAMILY HISTORY Family History Problem Relation Age of Onset Supraventricular tachycardia Mother No Known Problems Father No Known Problems Sister No Known Problems Sister Diabetes Maternal Grandfather Diabetes Paternal Grandfather MEDICATIONS GIVEN IN THE ED Medications - No data to display CURRENT HOME MEDICATIONS No current facility-administered medications for this encounter. Current Outpatient Medications: azithromycin (ZITHROMAX) 250 mg tablet, Take 2 tabs (500 mg) by mouth today, than 1 tab (250 mg) daily for 4 days., Disp: 6 tablet, Rfl: 0 cyclobenzaprine (FLEXERIL) 10 mg tablet, Take 1 tablet (10 mg total) by mouth 2 (two) times a day as needed for muscle spasms (Patient not taking: Reported on 08/24/2024), Disp: 20 tablet, Rfl: 0 meclizine (ANTIVERT) 25 mg tablet, Take 1 tablet (25 mg total) by mouth 3 (three) times a day as needed for dizziness (Patient not taking: Reported on 08/24/2024), Disp: 30 tablet, Rfl: 0 ALLERGIES No Known Allergies SOCIAL HISTORY Social History Tobacco Use Smoking status: Never Smokeless tobacco: Never Substance and Sexual Activity Drug use: Never Sexual activity: Defer Alcohol Use: Not At Risk (08/31/2024) AUDIT-C Frequency of Alcohol Consumption: Never Average Number of Drinks: Patient does not drink Frequency of Binge Drinking: Never PHYSICAL EXAM TRIAGE VITAL SIGNS: ED Triage Vitals [09/06/24 1345] Temp Pulse Resp BP SpO2 36.6 ??C (97.9 ??F) 58 16 152/100 96 % Temp src Heart Rate Source Patient Position BP Location FiO2 (%) Oral -- -- -- -- Height Height Method Weight Weight Method -- -- 120.1 kg (264 lb 12.4 oz) Standing scale Physical Exam Vitals and nursing note reviewed. Constitutional: General: He is not in acute distress. Appearance: He is well-developed. HENT: Head: Normocephalic and atraumatic. Eyes: Conjunctiva/sclera: Conjunctivae normal. Cardiovascular: Rate and Rhythm: Normal rate and regular rhythm. Heart sounds: No murmur heard. Pulmonary: Effort: Pulmonary effort is normal. No respiratory distress. Breath sounds: Normal breath sounds. Abdominal: Palpations: Abdomen is soft. Tenderness: There is no abdominal tenderness. Musculoskeletal: General: No swelling. Left shoulder: No tenderness, bony tenderness or crepitus. Normal range of motion. Normal strength.Normal pulse. Left upper arm: No swelling, deformity, tenderness or bony tenderness. Left elbow: No swelling. Normal range of motion. No tenderness. Left forearm: No swelling, edema, lacerations, tenderness or bony tenderness. Left wrist: No swelling or tenderness. Normal range of motion. Normal pulse. Left hand: No bony tenderness. Normal range of motion. Normal strength. Normal sensation. There is no disruption of two-point discrimination. Normal capillary refill. Normal pulse. Cervical back: Neck supple. Skin: General: Skin is warm and dry. Capillary Refill: Capillary refill takes less than 2 seconds. Neurological: Mental Status: He is alert. Psychiatric: Mood and Affect: Mood normal. LABS Labs Reviewed - No data to display RADIOLOGY Impression: NA EKG NA ED COURSE/MEDICAL DECISION MAKING Differential diagnosis included but not limited to arm pain, DVT, thrombophlebitis, cellulitis Patient's medical records were reviewed. Patient seen in the ED for pain in his left arm that has been intermittent for the past 2 weeks. Onexam patient has no abnormality of the left upper extremity. Patient has no tenderness, swelling, redness, induration, fluctuance or any signs of infection or DVT seen to the left upper extremity. Patient has full range motion of the left elbow shoulder wrist and hand with no pain or abnormalities.Patient has intact pulses, normal sensation, normal strength normal capillary refill of the left upper extremity. Patient has no tenderness to the chest. Patient states he does not have pain as of right now. Findings discussed with the patient who feels comfortable going home and taking cviz-orz-uhufyja pain medication. Patient given strict return precautions symptoms worsen. Patient is stable for discharge home follow up with the PCP. Procedures FINAL IMPRESSION Left arm pain DISPOSITION: Home All findings were discussed with patient. Pt agreeable with plan. Non toxic appearing, vitals stable. Patient stable for discharge home. Given return to ER precautions Close outpatient follow-up with a low threshold to return has been mandated, concerning symptoms have been emphasized in detail, and this patient expresses understanding PATIENT INSTRUCTED TO FOLLOW UP Sivan Boyd PA [address] [address] DISCHARGE MEDICATIONS Your medication list ASK your doctor about these medications Instructions Last Dose Given Next Dose Due azithromycin 250 mg tablet Commonly known as: ZITHROMAX Take 2 tabs (500 mg) by mouth today, than 1 tab (250 mg) daily for 4 days. cyclobenzaprine 10 mg tablet Commonly known as: FLEXERIL 10 mg, oral, 2 times daily PRN meclizine 25 mg tablet Commonly known as: ANTIVERT 25 mg, oral, 3 times daily PRN This examination was transcribed using the IT[employer] voice recognition system without human technology administrator. In an effort to expedite patient care, this report has not been adjusted for typographical, grammatical, and syntax by a trained medical numerical control operator. Chrissie Jean PA 09/06/24 1537 TORIAL SPECIALIST * Hailey Elkins RN - 09/06/2024 1:40 PM CST Pt reports had CT with IV contrast approx 2 weeks ago. Reports IV infiltrated and has been having int shooting pains down L arm and up into L anterior chest since. No redness/swelling noted at this time. TORIAL SPECIALIST documented in this encounter Plan of Treatment Not on file documented as of this encounter Visit Diagnoses Diagnosis Left arm pain- Primary Pain in soft tissues of limb documented in this encounter Care Teams Endodontic Assistant Relationship Specialty Start Date End Date Sivan Boyd PA [address] [address] PCP - General Family Medicine 08/24/24 documented as of this encounter
--- OUTSIDE RECORDS SUMMARY | 2024-09-07 00:52 | XMS_ITS | Encounter Summary ---
Author Organization [facility] Address [address] [facility] [place] [address] Care Team Providers Care Manager Sap Name Role Phone Godfrey Curry MD Primary Care Provider Dipika Reddy MD Unavailable Reason for Visit * Reason Onset Date Comments Refill Request 05/24/2017 Encounter Details Date Type Department Care Team (Late st Contact Info) Description 05/24/2017 Telephone [facility] - [facility] [address] [place] [id number] Godfrey Curry MD [address] [place] [phone] Refill Request Social History Tobacco Use [...] Center 07/05/2017 1:00 PM Elena Eugene PA-C [facility] documented in this encounter Plan of Treatment Not on file documented as of this encounter Visit Diagnoses Diagnosis Seasonal allergic rhinitis, unspecified chronicity, unspecified trigger documented in this encounter Care Teams Manager Sap Relationship Specialty Start Date End Date Godfrey Curry MD [address] [place] [phone] PCP - General Pediatrics 05/01/14 Dipika Reddy MD [address] [place] [phone] Resident Student Resident 11/27/15 documented as of this encounter
--- OUTSIDE RECORDS SUMMARY | 2024-09-07 00:52 | XMS_ITS | Encounter Summary ---
Author Organization [facility] Address [address] [facility] [place] [address] Care Team Providers Care Straw Hat Brim Raiser Operator Name Role Phone Godfrey Curry MD Primary Care Provider [phone] Dipika Reddy MD Unavailable Reason for Visit * Reason Onset Date Comments Concerns 02/03/2019 Encounter Details Date Type Department Care Team (Late st Contact Info) Description 02/03/2019 Telephone [facility] - [facility] [address] [place] [phone] Godfrey Curry MD [address] [place] [phone] Concerns Social History Tobacco Use Types [...] a provider please call her back at [phone] Instructed that provider will call back at their earliest convenience. Jelly Moulton 1673 documented in this encounter Plan of Treatment Not on file documented as of this encounter Visit Diagnoses Not on filedocumented in this encounter Care Teams Straw Hat Brim Raiser Operator Relationship Specialty Start Date End Date Godfrey Curry MD [address] [place] [phone] PCP - General Pediatrics 05/01/14 Dipika Reddy MD [address] [place] [phone] Resident Student Resident 11/27/15 documented as of this encounter
--- OUTSIDE RECORDS SUMMARY | 2024-09-07 00:52 | XMS_ITS | Clinical Summary ---
Author Organization [facility] Address [address] [facility] [place] [address] Care Team Providers Care House Furnishings Supervisor Name Role Phone Godfrey Curry MD Primary Care Provider [phone] Dipika Reddy MD Unavailable [phone] Source Comments [facility],non-owned Affiliates and Associated Physician Practices is amultiple site organization consisting of ambulatory clinics and hospital sitesin [place], [place], [place] and [place]. This disclosure is being madepursuant to the Care Everywhere program and may not contain all information available regarding this patient. 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 Plan: - Optometry referral [facility] (well child check) 11/02/2013 Assessment & Plan (12/04/2015 2:26 PM CDT): Erick Triana is here for his adolescent well child check and has obesity and normal development. Hep B and Varivax Dental referral for prevention Age appropriate anticipatory guidance provided Return for next well child check; sooner if concerns arise. Assessment & Plan (11/02/2013 6:48 PM CDT): Erick Triana is here for his adolescent well child check with obesity and normal development. Immunizations UTD per report. Immunizations today: none Dental referral for prevention Age appropriate anticipatory guidance provided Return for next well child check sooner [...] management clinic if does not move to [place] - Also may be text for teens eligible if still living in [facility] in a year Allergic rhinitis 05/19/2011 [...] 88 10/25/2018 7:24 PM CDT Temperature 36.7 C (98 F) 10/25/2018 7:23 PM CDT Respiratory Rate 24 [...] Reactive Non Reactive 11/12/2017 11:57 AM CDT [facility] HBsAg Non Reactive Non Reactive 11/12/2017 11:57 AM CDT [facility] HBc Antibody IgM Non Reactive Non Reactive 11/12/2017 11:57 AM CDT [facility] HCV Antibody Screen Non Reactive Non Reactive 11/12/2017 11:57 AM CDT [facility] HCV S/C Ratio 0.05 0.00 - 0.79 11/12/2017 11:57 AM CDT [facility] Comment: Ahxyoq-iq-vogvkb ratio (S/CO) <0.80: Non Reactive Blood BLOOD SPECIMEN / Unknown Lab Venipuncture / Unknown 11/12/2017 9:57 AM CDT 11/12/2017 10:52 AM CDT Narrative [facility] - 11/12/2017 11:57 AM CDT Non Reactive - Antibodies to Hepatitis C virus (HCV) were not detected, result does not exclude early acute HCV infection. Jose Rafael Thompson MD LAB - CHEMISTRY HILDA MARIO [facility] [place] [address] from Last 3 Months or Most Recently Relevant to Health Maintenance Care Teams House Furnishings Supervisor Relationship Specialty Start Date End Date LabargeGodfrey MD [facility] [place] [phone] PCP - General Pediatrics 05/01/14 Dipika Reddy MD [address] [place] [phone] Resident Student Resident 11/27/15
--- OUTSIDE RECORDS SUMMARY | 2024-09-07 00:52 | XMS_ITS | Clinical Summary ---
Author Organization [facility] Address [address] [place] [address] Care Team Providers Care Gravity Prospecting Observer Helper Name Role Phone Sivan Boyd Primary Care Provider + Allergies No known active allergies Medications cyclobenzaprine (FLEXERIL) 10 mg tablet Take 1 tablet (10 mg total) by mouth 2 (two) times a day as needed for muscle spasms 20 tablet 08/05/19 25 Active Additional Information Patient not taking.Reported on 08/24/2024 meclizine (ANTIVERT) 25 mg tablet Take 1 tablet (25 mg total) by mouth 3 (three) times a day as needed for dizziness 30 tablet 08/08/19 25 Active Additional Information Patient not taking.Reported on 08/24/2024 azithromycin (ZITHROMAX) 250 mg tablet Take 2 tabs (500 mg) by mouth today, than 1 tab (250 mg) daily for 4 days. 6 tablet 08/28/19 25 Active ciprofloxacin (CIPRO) 500 mg tablet Take 1 tablet (500 mg total) by mouth 2 (two) times a day for 7 days 14 tablet 08/24/19 25 025 Discontinu ed(Therapy completed) metroNIDAZOLE (FLAGYL) 500 mg tablet Take 1 tablet (500 mg total) by mouth 3 (three) times a day for 7 days 21 tablet 08/24/19 25 025 Discontinu ed(Therapy completed) polyethylene glycol (GoLYTELY) 236-22.74-6.74 -5.86 gram solutionIndicat ions:Weight loss,Nausea and vomiting, unspecified vomiting type,Abdominal pain Take 4,000 mL by mouth once for 1 dose 4000 mL 08/28/19 25 025 Active Problems Problem Noted Date Diagnosed Date Weight loss 08/28/2024 Nausea and vomiting 08/28/2024 Abdominal pain 08/28/2024 Diverticulosis 08/25/2024 Assessment & Plan (08/25/2024 12:48 PM SENIOR MARKETING SPECIALIST): Diverticulosis seen on CT of the abdomen/pelvis. Patient is following with GI. They are setting him up for a colonoscopy. Possible that he did have a diverticulitis flare? Ongoing symptoms, some worsening some improved or stable. Start Cipro/Flagyl Gastroesophageal reflux disease without esophagi tis 11/24/2023 Essential hypertension 09/13/2022 Mixed anxiety and depressive disorder 09/13/2022 Acne 08/23/2015 Overview (08/05/2024): Onset age 12-13; moderate, inflammatory and comedonal; [...] - plan to start 30mg/d (goal 80mg/day) Myopia 11/02/2013 Obesity 11/02/2013 Overview (08/05/2024): with acanthosis nigricans and transaminitis (consider RUTLEDGE) 10/05/2017 GI referral Component 10/01/17 11/02/13 Alk Phos 86 (L) ALT 175 (H) 348 (H) AST 66 (H) 164 (H) Protein Total 7.5 Albumin 4.6 Bili 0.4 eGFR Cholesterol 70 TG 109 HDL 31 (L) LDL <20 VLDL CALC ([facility]) 22 Chol HDL Ratio <=5.0 2.3 Allergic rhinitis 05/19/2011 Keratosis pilaris 05/19/2011 Overview (08/05/2024): Upper>lower arms; face; complicated by folliculitis 01/22/16 LE skin Cx neg Strep, neg Staph 10/14/16 unchanged 10/01/17 prominent Resolved Problems Problem Noted Date Diagnosed Date Resolved Date Elevated liver enzymes 11/10/201708/24 Viral URI 07/12/2015 08/24/2024 Encounters Date Type Department Care Team Description 09/06/2024 2:43 PM SENIOR MARKETING SPECIALIST - 09/06/2024 3:49 PM [facility] Emergency [facility] Emergency Department [address] [place] [id number] Left arm pain (Primary Dx) Discharge Disposition: Discharge to home or self care 09/05/2024 10:54 AM SENIOR MARKETING SPECIALIST - 09/05/2024 11:59 PM [facility] Hospital Encounter [facility] Cardiac Testing [address] [place] [id number] Bradycardia Discharge Disposition: Discharge to home or self care 09/04/2024 Telephone [facility] at [address] [place] [phone] Omar Dao MD 08/28/2024 Orders Only [facility] at [address] [place] [phone] Omar Dao MD Weight loss (Primary Dx); Nausea and vomiting, unspecified vomiting type; Abdominal pain 08/27/2024 8:13 AM SENIOR MARKETING SPECIALIST - 08/27/2024 11:03 AM [facility] Emergency [facility] Emergency Department [address] [place] [phone] Mello Ariza MD Abdominal pain (Primary Dx) Discharge Disposition: Discharge to home or self care 08/24/2024 12:30 PM SENIOR MARKETING SPECIALIST Office Visit [facility] [address] [place] [phone] Sivan Boyd PA Dizziness (Primary Dx); Bradycardia; Abnormal EKG; Near syncope; New daily persistent headache; Diverticulosis 08/08/2024 10:30 AM SENIOR MARKETING SPECIALIST - 08/08/2024 12:50 PM [facility] Emergency [facility] Emergency Department [address] [place] [address] Intermittent abdominal pain (Primary Dx); Dizziness Discharge Disposition: Discharge to home or self care 08/05/2024 3:40 PM SENIOR MARKETING SPECIALIST - 08/05/2024 9:54 PM [facility] Emergency [facility] Emergency Department [address] [place] [phone] Epigastric pain (Primary Dx); Strain of neck muscle, initial encounter Discharge Disposition: Discharge to home or self care from Last 3 Months Immunizations Name Administration Dates Next Due DTaP 03/19/2006, 2,01/17/2001,11/15,2000 HPV, Quadrivalent 08/08/2012,09/25/2011,07/24/20 11 Hep A, Ped Unspecified 03/19/2006,10/08/2004 Hep B / HiB 2000,2000 Hep B, Adolescent or Pediatric 12/04/2015,2000,2000 Hep B, Unspecified 01/19/2002 Hib (PRP-OMP) 01/19/2002,2000,2000 IPV 03/19/2006, 1,2000,09/14 Influenza, Quadrivalent, Spl it, Preservative Free, Intramuscular 07/12/2015 Influenza, Trivalent, IM (MDV) 08/17/2013 Influenza, Unspecified 05/19/2024(Deferr ed: Patient decision),05/19/2023(Deferred: Patient decision),06/23/2011 MMR 03/19/2006,07/22/2001 Meningococcal Conjugate (Menveo) 07/24/2011 Meningococcal MCV4P (Menactra) 05/24/2019 Pneumococcal Conjugate 7-Valent 01/20/20 02,01/17/2001,2000,09/14 Tdap 07/24/2011 Varicella 12/04/2015,07/22/2001 Surgical History Surgery Date Site/Laterality Comments TONSILLECTOMY N/A 7 years old Medical History Medical History Date Comments H. pylori infection Nausea & vomiting Ongoing n/v x1 month Family History Medical History Relation Name Comments No Known Problems Father Diabetes Maternal Grandfather Supraventricular tachycardia Mother Diabetes Paternal Grandfather No Known Problems Sister 1 No Known Problems Sister 2 Relation Name Status Comments Father Alive Maternal Grandfather Maternal Grandmother Alive Mother Alive Paternal Grandfather Paternal Grandmother Alive Sister 1 Alive Sister 2 Alive Social History Tobacco Use Types Packs/Day Years Used Date Smoking Tobacco: Never Smokeless Tobacco: Never Tobacco Cessation:Counseling Given: Not Answered AUDIT-C Answer Date Recorded Q1: How often [...] on file Legal Sex Male 12:57 PM SENIOR MARKETING SPECIALIST Gender Identity Not on file Sexual Orientation Not on file Obstetrics History Last Filed Vital Signs Vital Sign Reading Time Taken Comments Blood Pressure 138/92 09/06/2024 3:42 PM SENIOR MARKETING SPECIALIST Pulse 79 09/06/2024 3:42 PM SENIOR MARKETING SPECIALIST Temperature 36.6 C (97.9 F) 09/06/2024 1:45 PM SENIOR MARKETING SPECIALIST Respiratory Rate 18 09/06/2024 3:42 PM SENIOR MARKETING SPECIALIST Oxygen Saturation 100% 09/06/2024 3:42 PM SENIOR MARKETING SPECIALIST Inhaled Oxygen Concentration - - Weight 120.1 kg (264 lb 12.4 oz) 09/06/2024 1:45 PM SENIOR MARKETING SPECIALIST Height 182.9 cm (6') 08/27/2024 6:21 AM SENIOR MARKETING SPECIALIST Body Mass Index 35.91 08/27/2024 6:21 AM SENIOR MARKETING SPECIALIST Plan of Treatment Health Maintenance Due Date Last Done Comments Hepatitis C Screening 2000 Regular Well Visit/Exam 18-64 2018 DTaP/Tdap/Td Vaccine (7 - Td or Tdap) 07/24/2021 07/24/2011, 03/19/2006, 01/19/2002, Additional history exists Influenza Vaccine (#1) 2024 5, 08/17/2013, 06/23/2011 Depression Screening 08/24/2025 08/24/2024, 08/24/19 25 Pneumococcal vaccine <65 Completed 002, 01/17/2001, 2000, Additional history exists HPV Vaccines Completed 08/08/2012, 09/03, 07/24/2011 Hepatitis B Screening Completed 12/04/2015 , 01/19/2002, 2000, Additional history exists Varicella Vaccines Completed 12/04/2015, 07/22/2001 Procedures Procedure Name Priority Date/Time Associated Diagnosis Comments HEMOGLOBIN A1C Routine 08/31/2024 1:45 PM SENIOR MARKETING SPECIALIST Screening for diabetes mellitus COMPREHENSIVE METABOLIC PANEL Routine 08/31/2024 1:45 PM SENIOR MARKETING SPECIALIST Hypercalcemia PTH Routine 08/31/2024 1:45 PM SENIOR MARKETING SPECIALIST Hypercalcemia CTA ABDOMEN PELVIS W WO CONTRAST ED 08/27/2024 9:33 AM SENIOR MARKETING SPECIALIST TROPONIN T HIGH-SENSITIVITY 2-HOUR Timed 08/27/2024 8:24 AM SENIOR MARKETING SPECIALIST URINALYSIS AND REFLEX TO MICROSCOPIC AND CULTURE STAT 08/27/2024 6:51 AM SENIOR MARKETING SPECIALIST ECG 12-LEAD STAT 08/27/2024 6:45 AM SENIOR MARKETING SPECIALIST EGFR STAT 08/27/2024 6:41 AM SENIOR MARKETING SPECIALIST DIFFERENTIAL AUTO STAT 08/27/2024 6:4 1 AM SENIOR MARKETING SPECIALIST PROTIME-INR STAT 08/27/2024 6:41 AM SENIOR MARKETING SPECIALIST THYROID FUNCTION CASCADE STAT 08/27/2024 6:41 AM SENIOR MARKETING SPECIALIST TROPONIN T HIGH-SENSITIVITY SERIES (BASELINE, 2HR, 4HR, 6HR) STAT 08/27/2024 6:41 AM SENIOR MARKETING SPECIALIST SEPSIS LACTATE WITH REFLEX STAT 08/27/2024 6:41 AM SENIOR MARKETING SPECIALIST LIPASE STAT 08/27/2024 6:41 AM SENIOR MARKETING SPECIALIST COMPREHENSIVE METABOLIC PANEL STAT 08/27/2024 6:41 AM SENIOR MARKETING SPECIALIST CBC WITH AUTO DIFFERENTIAL STAT 08/27/2024 6:41 AM SENIOR MARKETING SPECIALIST EGFR STAT 08/08/2024 9:27 AM SENIOR MARKETING SPECIALIST DIFFERENTIAL AUTO STAT 08/08/2024 9:2 7 AM SENIOR MARKETING SPECIALIST LIPASE STAT 08/08/2024 9:27 AM SENIOR MARKETING SPECIALIST COMPREHENSIVE METABOLIC PANEL STAT 08/08/2024 9:27 AM SENIOR MARKETING SPECIALIST CBC WITH AUTO DIFFERENTIAL STAT 08/08/2024 9:27 AM SENIOR MARKETING SPECIALIST URINALYSIS AND REFLEX TO MICROSCOPIC AND CULTURE STAT 08/08/2024 9:[address] ABDOMEN PELVIS W CONTRAST ED 08/05/2024 6:19 PM SENIOR MARKETING SPECIALIST EGFR STAT 08/05/2024 5:15 PM SENIOR MARKETING SPECIALIST DIFFERENTIAL AUTO STAT 08/05/2024 5:1 5 PM SENIOR MARKETING SPECIALIST URINALYSIS AND REFLEX TO MICROSCOPIC STAT 08/05/2024 5:15 PM SENIOR MARKETING SPECIALIST LIPASE STAT 08/05/2024 5:15 PM SENIOR MARKETING SPECIALIST COMPREHENSIVE METABOLIC PANEL STAT 08/05/2024 5:15 PM SENIOR MARKETING SPECIALIST CBC WITH AUTO DIFFERENTIAL STAT 08/05/2024 5:15 PM SENIOR MARKETING SPECIALIST from Last 3 Months Results * (ABNORMAL) PTH (08/31/2024 1:45 PM SENIOR MARKETING SPECIALIST) Pathologist [facility] Parathyroid hormone, intact 12(L) 16 - 77 pg/mL [facility] Comment: Interpretive Guide Intact PTH Calcium ------- Normal Parathyroid Normal Normal Hypoparathyroidism Low or Low Normal Low Hyperparathyroidism Primary Normal or High High Secondary High Normal or Low Tertiary High High Non-Parathyroid Hypercalcemia Low or Low Normal High Blood 08/31/2024 1:45 PM SENIOR MARKETING SPECIALIST 08/31/2024 1:45 PM SENIOR MARKETING SPECIALIST Sivan CLAIRE LAB BLOOD ORDERABLES [facility] al Result [facility] [address] [place] [phone] * Hemoglobin A1c (08/31/2024 1:45 PM SENIOR MARKETING SPECIALIST) Pathologist [facility] Hgb A1C 4.8 <5.7 % of total Hgb [facility] Comment: For the purpose of screening for the presence of diabetes: <5.7% Consistent with the absence of diabetes 5.7-6.4% Consistent with increased risk for diabetes (prediabetes) > or =6.5% Consistent with diabetes This assay result is consistent with a decreased risk of diabetes. Currently, no consensus exists regarding use of hemoglobin A1c for diagnosis of diabetes in children. According to [place] [employer] (ADA) guidelines, hemoglobin A1c <7.0% represents optimal control in non- diabetic patients. Different metrics may apply to specific patient populations. Standards of Medical Care in Diabetes(ADA). Blood 08/31/2024 1:45 PM SENIOR MARKETING SPECIALIST 08/31/2024 1:45 PM SENIOR MARKETING SPECIALIST Sivan CLAIRE LAB BLOOD ORDERABLES Fin al Result [facility] [address] [place] [address] * (ABNORMAL) Comprehensive metabolic panel (08/31/2024 1:45 PM SENIOR MARKETING SPECIALIST) Pathologist [facility] Glucose 93 65 - 99 mg/dL [facility] Comment: Fasting reference interval BUN 13 7 - 25 mg/dL [facility] Creatinine 0.86 0.60 - 1.24 mg/dL [facility] eGFR 124 > OR = 60 mL/min/1.7 3m2 [facility] BUN/creat ratio SEE NOTE: 6 - 22 (calc) [facility] Comment: Not Reported: BUN and Creatinine are within reference range. Sodium 138 135 - 146 mmol/L [facility] Potassium, pl 4.4 3.5 - 5.3 mmol/L [facility] Chloride 101 98 - 110 mmol/L [facility] CO2 26 20 - 32 mmol/L [facility] Calcium 10.1 8.6 - 10.3 mg/dL [facility] Protein, sr 7.3 6.1 - 8.1 g/dL [facility] Albumin 5.1 3.6 - 5.1 g/dL [facility] GLOBULIN 2.2 1.9 - 3.7 g/dL (calc) [facility] Alb/glob ratio 2.3 1.0 - 2.5 (calc) [facility] Bilirubin, total 0.6 0.2 - 1.2 mg/dL [facility] Alk phos 46 36 - 130 U/L [facility] AST 25 10 - 40 U/L [facility] ALT (SGPT) 50(H) 9 - 46 U/L [facility] Blood 08/31/2024 1:45 PM SENIOR MARKETING SPECIALIST 08/31/2024 1:45 PM SENIOR MARKETING SPECIALIST us Sivan CLAIRE LAB BLOOD ORDERABLES Fin al Result [id number] [address] [place] [address] * CTA Abdomen Pelvis (08/27/2024 9:33 AM SENIOR MARKETING SPECIALIST) Anatomical Region Laterality Modality Body N/A Computed Tomogra phy 08/27/2024 10:0 4 AM SENIOR MARKETING SPECIALIST Narrative 08/27/2024 10:17 AM SENIOR MARKETING SPECIALIST EXAM DESCRIPTION: CTA ABDOMEN PELVIS REASON FOR STUDY: Mesenteric ischemia, acute c/o abd pain and vomiting that has been going on for over a month. Pt states he had a ct scan with labs and currently on abx for dx of diverticulitis. Pt states he doesn't think that is it. States he was unable to sleep last night due to the pain. Had to repeat injection due to bolus tracking never triggered- ok per Dr Ariza TECHNIQUE: CTA scan of the abdomen and pelvis performed without and with intravenous and without oral contrast using helical scanning technique with dynamic intravenous contrast injection. Precontrast, arterial, and portal venous phase images of the abdomen and pelvis were acquired. Images reviewed with lung, soft tissue and bone windows. Reconstructed coronal and sagittal MPR images reviewed. All images stored on PACS. 3D MIP images rendered on scanning unit and reviewed at time of interpretation. Automated exposure control was used as a dose optimization technique for this examination. CONTRAST TYPE/DOSE: 180mL of IOVERSOL 350 MG IODINE/ML INTRAVENOUS SYRINGE injected via intravenous COMPARISON: CT of the abdomen pelvis with contrast dated 08/05/2024 FINDINGS: The initial arterial phase performed at 9:24 a.m. is a late venous phase. Per the cath lab radiological technologist the bolus tracking never triggered. Repeat contrast bolus was performed which is in the arterial phase. VASCULATURE: No dissection, aneurysm, intramural hematoma, rupture, or penetrating atherosclerotic ulcer. No large vessel occlusion. CELIAC TRUNK: No flow limiting stenosis, dissection, or aneurysm. SUPERIOR MESENTERIC ARTERY: No flow limiting stenosis, dissection, or aneurysm. RIGHT RENAL ARTERY: No flow limiting stenosis, dissection, or aneurysm. LEFT RENAL ARTERY: No flow limiting stenosis, dissection, or aneurysm. INFERIOR MESENTERIC ARTERY: No flow limiting stenosis, dissection, or aneurysm. AORTA: No flow limiting stenosis, dissection, or aneurysm. ILIAC ARTERIES: No flow limiting stenosis, dissection, or aneurysm. LOWER CHEST: No significant pulmonary abnormalities. No effusion. LIVER: Normal size. No identified cystic or solid masses. GALLBLADDER: No stones identified. No wall thickening or inflammatory changes. BILE DUCTS: No intrahepatic or extrahepatic ductal dilatation. SPLEEN: No focal lesion. PANCREAS: No identified cystic or solid masses. No significant calcifications. No adjacent inflammation or peripancreatic fluid collections. Pancreatic duct not dilated. ADRENALS: Normal. KIDNEYS/URINARY TRACT: No identified significant cystic or solid masses. No stones. No hydronephrosis or hydroureter. Symmetric enhancement. Normal collecting systems without filling defect. Normal bladder. Contrast within the bladder from the 1st contrast injection is noted. GI: No dilated bowel loops. No obvious wall thickening. Normal appendix. No significant diverticular disease. Nvkk-bi-uvkqiprs colonic stool burden may represent mild constipation in the appropriate clinical setting. PERITONEUM: No ascites or free air. RETROPERITONEUM: No mass or adenopathy. REPRODUCTIVE: No significant abnormality. MUSCULOSKELETAL: No significant abnormality. OTHER: No other abnormality. IMPRESSION: No acute findings in the abdomen or pelvis. Specifically, no CT evidence of mesenteric ischemia. THIS IS AN ELECTRONICALLY VERIFIED FINAL REPORT 08/27/2024 10:17 AM - Electronically signed by Ramon White M.D. MM: MM Report ID: [id number] Reading Location: [place] [address] Procedure Note Ramon White MD - 08/27/2024 EXAM DESCRIPTION: CTA ABDOMEN PELVIS REASON FOR STUDY: Mesenteric ischemia, acute c/o abd pain and vomiting that has been going on for over a month. Ptstates he had a ct scan with labs and currently on abx for dx of diverticulitis.Pt states he doesn't think that is it. States he was unable to sleep lastnight due to the pain. Had to repeat injection due to bolus tracking never triggered- ok per Dr Ariza TECHNIQUE: CTA scan of the abdomen and pelvis performed without and with intravenous and without oral contrast using helical scanning techniquewith dynamic intravenous contrast injection. Precontrast, arterial, and portal venous phase images of the abdomen and pelvis were acquired. Images reviewed with lung, soft tissue and bone windows. Reconstructed coronaland sagittal MPR images reviewed. All images stored on PACS. 3D MIP images rendered on scanning unit and reviewed at time of interpretation.Automated exposure control was used as a dose optimization technique for this examination. CONTRAST TYPE/DOSE: 180mL of IOVERSOL 350 MG IODINE/ML INTRAVENOUSSYRINGE injected via intravenous COMPARISON: CT of the abdomen pelvis with contrast dated 08/05/2024 FINDINGS: The initial arterial phase performed at 9:24 a.m. is a latevenous phase. Per the cath lab radiological technologist the bolus tracking never triggered.Repeat contrast bolus was performed which is in the arterial phase. VASCULATURE: No dissection, aneurysm, intramural hematoma, rupture, or penetrating atherosclerotic ulcer. No large vessel occlusion. CELIAC TRUNK: No flow limiting stenosis, dissection, or aneurysm. SUPERIOR MESENTERIC ARTERY: No flow limiting stenosis, dissection, or aneurysm. RIGHT RENAL ARTERY: No flow limiting stenosis, dissection, or aneurysm. LEFT RENAL ARTERY: No flow limiting stenosis, dissection, or aneurysm. INFERIOR MESENTERIC ARTERY: No flow limiting stenosis, dissection, or aneurysm. AORTA: No flow limiting stenosis, dissection, or aneurysm. ILIAC ARTERIES: No flow limiting stenosis, dissection, or aneurysm. LOWER CHEST: No significant pulmonary abnormalities. No effusion. LIVER: Normal size. No identified cystic or solid masses. GALLBLADDER: No stones identified. No wall thickening or inflammatory changes. BILE DUCTS: No intrahepatic or extrahepatic ductal dilatation. SPLEEN: No focal lesion. PANCREAS: No identified cystic or solid masses. No significant calcifications. No adjacent inflammation or peripancreatic fluidcollections. Pancreatic duct not dilated. ADRENALS: Normal. KIDNEYS/URINARY TRACT: No identified significant cystic or solid masses.No stones. No hydronephrosis or hydroureter. Symmetric enhancement. Normal collecting systems without filling defect. Normal bladder. Contrastwithin the bladder from the 1st contrast injection is noted. GI: No dilated bowel loops. No obvious wall thickening. Normalappendix. No significant diverticular disease. Gmvv-po-wbxgsmcj colonic stoolburden may represent mild constipation in the appropriate clinical setting. PERITONEUM: No ascites or free air. RETROPERITONEUM: No mass or adenopathy. REPRODUCTIVE: No significant abnormality. MUSCULOSKELETAL: No significant abnormality. OTHER: No other abnormality. IMPRESSION: No acute findings in the abdomen or pelvis. Specifically, noCT evidence of mesenteric ischemia. THIS IS AN ELECTRONICALLY VERIFIED FINAL REPORT 08/27/2024 10:17 AM - Electronically signed by Ramon White M.D. MM: MM Report ID: [id number] Reading Location: [place] [address] Mello Ariza MD IMG CT PROCEDURES F inal Result * Troponin T high-sensitivity 2-hour (08/27/2024 8:24 AM SENIOR MARKETING SPECIALIST) Trop T hs <6 <=22 ng/L Comment: Interpretive Data For further hscTnT resources including the diagnostic algorithm and an aid in interpretation, copy and paste this link: https://nrl.testcatalog.org/show/hsTrop Current Interpretive Data last revised 2020. Testing performed by: [address] [address] Trop T hs delta 0 ng/L [facility] Comment:Testing performed by : [address] [address] Trop T hs interp Insignificant [facility] Comment:Testing performed by : [address] [address] Blood 08/27/2024 8:24 AM SENIOR MARKETING SPECIALIST 08/27/2024 8:26 AM SENIOR MARKETING SPECIALIST Mello Ariza MD LAB BLOOD ORDERABLE S Final Result [facility] [address] [facility] Department [place] [address] * Urinalysis reflex to microscopic and culture Urine (08/27/2024 6:51 AM SENIOR MARKETING SPECIALIST) Color, ur Straw Yellow Comment:Testing performed by : [address] [address] Clarity, ur Clear Clear [facility] GIANG Comment:Testing performed by : [address] [address] Specific gravity, ur 1.006 1.003 - 1.030 [facility] Comment:Testing performed by : [facility], [address] [place] [address], [place]., [address] pH, urine 6.0 [facility] Comment: Interpretive Data U rine pH is affected by diet, medications, systemic acid-base disturbances, and renal tubular function. pH may affect urinary stone formation. For example, urine pH below 6.0 may help reduce the tendency for calcium phosphate stones and pH greater than 6.0 may reduce the tendency for uric acid stone formation. Source: [facility] [address] Devices Current Interpretive Data was last revised on 2017 Testing performed by: [facility], [address] [place] [address], [place]., [address] Protein, ur ql Negative Negative [facility] Comment:Testing performed by : [address], [place]., [address] Glucose, ur ql Negative Negative [facility] Comment:Testing performed by : [address], [place]., [address] Ketones, ur Negative Negative [facility] Comment:Testing performed by : [address], [place]., [address] Bilirubin, ur Negative Negative [facility] Comment:Testing performed by : [address], [place]., [address] Blood, ur Negative Negative [facility] Comment:Testing performed by : [address], [place]., [address] Urobilinogen, ur <2.0 <2.0 mg/dL [facility] Comment:Testing performed by : [address] [address] Nitrite, ur Negative Negative [facility] Comment:Testing performed by : [address], [place]., [address] Leukocyte esterase, ur Negative Negative [facility] Comment:Testing performed by : [address] [address] UA reflex comment Reflex conditions for microscopic UA and culture not met. [facility] Comment:Testing performed by : [address], [place]., [address] Urine 08/27/2024 6:51 AM SENIOR MARKETING SPECIALIST 08/27/2024 6:56 AM SENIOR MARKETING SPECIALIST us Mello Ariza MD LAB MICROBIOLOGY - GENERAL ORDERABLES Final Result [facility] [address] [facility] Department [place] [address] * ECG 12 lead (08/27/2024 6:45 AM SENIOR MARKETING SPECIALIST) Ventricular Rate EKG/Min 50 BPM [facility] Atrial Rate 50 BPM [facility] WI-Interval (MSEC) 168 ms [facility] QRS-Interval (MSEC) 112 ms [facility] QT-Interval (MSEC) 416 ms [facility] QTc 379 ms [facility] P [place] 13 degrees [facility] R [place] -16 degrees [facility] T [place] 2 degrees [facility] Diagnosis Sinus bradycardia with sinus arrhythmia Incomplete right bundle branch block Moderate voltage criteria for LVH, may be normal variant Borderline ECG No previous ECGs available Confirmed by TIMOTHY BEAUCHAMP M.D. ([id number]) on 08/28/2024 8:33:23 PM [facility] 08/27/2024 6:45 AM SENIOR MARKETING SPECIALIST 08/28/2024 8:33 PM SENIOR MARKETING SPECIALIST us Mello Ariza MD ECG ORDERABLES Fin al Result Performing Organization Address [facility] Co de Phone Number [facility] * Troponin T high-sensitivity series (baseline, 2hr, 4hr, 6hr) (08/27/2024 6:41 AM SENIOR MARKETING SPECIALIST) Trop T hs <6 <=22 ng/L Comment: Interpretive Data For further hscTnT resources including the diagnostic algorithm and an aid in interpretation, copy and paste this link: [email or web address].testcatalog.org/show/hsTrop Current Interpretive Data last revised 2020. Testing performed by: [facility], [address] [place] [address]., [address] Blood 08/27/2024 6:41 AM SENIOR MARKETING SPECIALIST 08/27/2024 6:56 AM SENIOR MARKETING SPECIALIST us Mello Ariza MD LAB BLOOD ORDERABLE S Final Result [facility] [address] [place] [address] * Sepsis Lactate w/ Reflex (08/27/2024 6:41 AM SENIOR MARKETING SPECIALIST) Sepsis Lactate 0.9 0.7 - 2.0 mmol/L Comment:Testing performed by : [facility], [address] [place] [address]., [id number] Blood 08/27/2024 6:41 AM SENIOR MARKETING SPECIALIST 08/27/2024 6:56 AM SENIOR MARKETING SPECIALIST us Mello Ariza MD LAB BLOOD ORDERABLE S Final Result Performing Organization Address [facility] Co de Phone Number [facility] [address] [address] * eGFR (08/27/2024 6:41 AM SENIOR MARKETING SPECIALIST) eGFR >90 >=60 mL/min/1. 73 m2 Comment: Interpretive Data Reference Interval Normal >/= 90 mL/min/1.73m2 Mildly decreased* 60 - 89 mL/min/1.73m2 Mildly to moderately decreased 45 - 59 mL/min/1.73m2 Moderately to severely decreased 30 - 44 mL/min/1.73m2 Severely decreased 15 - 29 mL/min/1.73m2 Kidney Failure < 15 mL/min/1.73m2 *Relative to young adult level Estimated glomerular filtration rate is determined by the 2020 CKD-EPI equation recommended by the National Kidney Foundation (A Unifying Approach to GFR Estimation: Recommendations of the NKF-ASK Task Force on Reassessing the Inclusion of Race in Diagnosing Kidney Disease, JASN 2020). The CKD-EPI equation should not be used for patients with unstable renal function and has not been validated in children and those over 70. Current interpretive data was last reviewed 2021. Testing performed by: [facility], [address] [place] [address]., [address] Blood 08/27/2024 6:41 AM SENIOR MARKETING SPECIALIST 08/27/2024 6:56 AM SENIOR MARKETING SPECIALIST us Mello Ariza MD LAB BLOOD ORDERABLE S Final Result [facility] [address] [facility] Department [place] [address] * Differential, auto (08/27/2024 6:41 AM SENIOR MARKETING SPECIALIST) Neutrophil abs 4.7 1.5 - 6.5 K/cumm Comment:Testing performed by : [address] [address] Imm gran abs 0.0 0.0 - 0.1 K/cumm [facility] Comment:Testing performed by : [address] [address] Lymphocyte abs 2.4 0.8 - 3.3 K/cumm [facility] Comment:Testing performed by : [address] [address] Monocyte abs 0.7 0.2 - 0.8 K/cumm [facility] Comment:Testing performed by : [address] [address] Eosinophil abs 0.2 0.0 - 0.5 K/cumm [facility] Comment:Testing performed by : [address] [address] Basophil abs 0.0 0.0 - 0.1 K/cumm [facility] Comment:Testing performed by : [address] [address] Neutrophil pct 58.3 % [facility] Comment: Interpretive Data Percent cell count reference ranges are not reported, since discordance with absolute values may lead to misinterpretation of CBC data. Current Interpretive Data was last revised on 2017. Testing performed by: [address] [address] Imm gran pct 0.4 % [facility] Comment: Interpretive Data Percent cell count reference ranges are not reported, since discordance with absolute values may lead to misinterpretation of CBC data. Current Interpretive Data was last revised on 2017. Testing performed by: [address] [address] Lymphocyte pct 29.1 % [facility] Comment: Interpretive Data Percent cell count reference ranges are not reported, since discordance with absolute values may lead to misinterpretation of CBC data. Current Interpretive Data was last revised on 2017. Testing performed by: [address] [address] Monocyte pct 8.8 % [facility] Comment: Interpretive Data Percent cell count reference ranges are not reported, since discordance with absolute values may lead to misinterpretation of CBC data. Current Interpretive Data was last revised on 2017. Testing performed by: [address] [address] Eosinophil pct 3.0 % [facility] Comment: Interpretive Data Percent cell count reference ranges are not reported, since discordance with absolute values may lead to misinterpretation of CBC data. Current Interpretive Data was last revised on 2017. Testing performed by: [address] [address] Basophil pct 0.4 % [facility] Comment: Interpretive Data Percent cell count reference ranges are not reported, since discordance with absolute values may lead to misinterpretation of CBC data. Current Interpretive Data was last revised on 2017. Testing performed by: [address] [address] Blood 08/27/2024 6:41 AM SENIOR MARKETING SPECIALIST 08/27/2024 6:56 AM SENIOR MARKETING SPECIALIST us Mello Ariza MD LAB BLOOD ORDERABLE S Final Result [facility] GIANG [address] [facility] Department [place] [address] * Thyroid Function [place] (08/27/2024 6:41 AM SENIOR MARKETING SPECIALIST) TSH 1.51 0.30 - 4.20 mcIUnit/mL Comment:Testing performed by : [address] [address] Blood 08/27/2024 6:41 AM SENIOR MARKETING SPECIALIST 08/27/2024 6:56 AM SENIOR MARKETING SPECIALIST us Mello Ariza MD LAB BLOOD ORDERABLE S Final Result [facility] [address] [facility] Department [place] [address] * (ABNORMAL) CBC with auto differential (08/27/2024 6:41 AM SENIOR MARKETING SPECIALIST) WBC 8.1 3.8 - 9.9 K/cumm Comment:Testing performed by : [address] [address] Hgb 14.7 13.0 - 17.5 g/dL [facility] Comment:Testing performed by : [address] [address] Hct 41.7 38.9 - 50.3 % [facility] Comment:Testing performed by : [address] [address] Plt 307 150 - 400 K/cumm [facility] Comment:Testing performed by : [address] [address] MPV 10.0 9.1 - 12.3 fL [facility] Comment:Testing performed by : [address] [address] RBC 5.43 4.30 - 5.80 M/cumm [facility] GIANG Comment:Testing performed by : [address] [address] MCV 76.8(L) 81.3 - 96.4 fL [facility] GIANG Comment:Testing performed by : [address] [address] MCH 27.1 27.1 - 33.3 pg [facility] GIANG Comment:Testing performed by : [address] [address] MCHC 35.3 32.3 - 35.7 g/dL [facility] GIANG Comment:Testing performed by : [address] [address] RDW CV 14.0 11.1 - 14.9 % [facility] GIANG Comment:Testing performed by : [address] [address] RDW SD 38.5 35.7 - 48.1 fL [facility] GIANG Comment:Testing performed by : [address] [address] NRBC abs 0.00 0.00 - 0.01 K/cumm [facility] Comment:Testing performed by : [address] [address] Blood 08/27/2024 6:41 AM SENIOR MARKETING SPECIALIST 08/27/2024 6:56 AM SENIOR MARKETING SPECIALIST us Mello Ariza MD LAB BLOOD ORDERABLE S Final Result Performing Organization Address City/[facility] de Phone Number [facility] [address] [facility] Department [place] [address] * Protime-INR (08/27/2024 6:41 AM SENIOR MARKETING SPECIALIST) PT 13.4 12.0 - 14.6 sec Comment:Testing performed by : [address] [address] INR 1.0 0.9 - 1.2 [facility] Comment: Ref Range High Interpretive data Oral anticoagulant therapeutic ranges: Venous thromboembolism prophylaxis or treatment: 2.0-3.0 CARDIOLOGY Standard range: 2.0-3.0 High-intensity range: 2.5-3.5 Refer to indication-specific guidelines for appropriate target ranges for prosthetic heart valve replacement. Current interpretive data was last revised on 2019. Testing performed by: [address] [address] Blood 08/27/2024 6:41 AM SENIOR MARKETING SPECIALIST 08/27/2024 6:56 AM SENIOR MARKETING SPECIALIST Mello Ariza MD LAB BLOOD ORDERABLE S Final Result Performing Organization Address City/[facility]/ZIP Co de Phone Number [facility] [place] [address] * Lipase (08/27/2024 6:41 AM SENIOR MARKETING SPECIALIST) Pathologist [facility] Lipase 23 10 - 99 Units/L Comment:Testing performed by : [address] [address] Blood 08/27/2024 6:41 AM SENIOR MARKETING SPECIALIST 08/27/2024 6:56 AM SENIOR MARKETING SPECIALIST us Mello Ariza MD LAB BLOOD ORDERABLE S Final Result Performing Organization Address [facility] Co de Phone Number [facility] [address] [place] [address] * (ABNORMAL) Comprehensive metabolic panel (08/27/2024 6:41 AM SENIOR MARKETING SPECIALIST) [facility] Sodium 138 135 - 145 mmol/L Comment:Testing performed by : [address] [address] Potassium, pl 4.6 3.3 - 4.9 mmol/L [facility] Comment: Hemolyzed; Potassium value may be falsely elevated by as much as 1.0 mmol/L. Suggest redraw and reanalysis. Testing performed by: [address] [address] Chloride 102 97 - 110 mmol/L [facility] Comment:Testing performed by : [address] [address] CO2 23 22 - 32 mmol/L [facility] Comment:Testing performed by : [address] [address] Anion gap 13 2 - 15 mmol/L [facility] Comment:Testing performed by : [address] [address] BUN 13 6 - 25 mg/dL [facility] Comment:Testing performed by : [address] [address] Creatinine 0.82 0.80 - 1.30 mg/dL [facility] Comment:Testing performed by : [address] [address] Glucose 93 70 - 199 mg/dL [facility] Comment: Interpretive Data Fasting glucose >/= 126 mg/dl is diagnostic for diabetes. Fasting is defined as no caloric intake for at least 8 hours. Fasting glucose between 100 mg/dl to 125 mg/dl is diagnostic of prediabetes. In a patient with classic symptoms of hyperglycemia or hyperglycemic crisis, a random glucose >/= 200 mg/dl is diagnostic for diabetes. In the absence of unequivocal hyperglycemia, results should be confirmed by repeat testing. The classification and Diagnosis of Diabetes Diabetes Care 2021; 46: S19-S40. Current interpretive data was last revised 2022. Testing performed by: [address] [address] Calcium 10.8(H) 8.5 - 10.3 mg/dL [facility] Comment:Testing performed by : [address] [address] Bilirubin, total 0.5 0.1 - 1.2 mg/dL [facility] Comment:Testing performed by : [address] [address] Protein, pl 7.6 6.5 - 8.5 g/dL [facility] Comment:Testing performed by : [address] [address] Albumin 4.8 3.5 - 5.0 g/dL [facility] Comment:Testing performed by : [address] [address] Alk phos 58 40 - 130 Units/L [facility] Comment:Testing performed by : [address] [address] ALT 60(H) 7 - 55 Units/L [facility] Comment:Testing performed by : [address] [address] AST 41 10 - 50 Units/L [facility] Comment: Hemolyzed; result may be falsely elevated Testing performed by: [address] [address] Blood 08/27/2024 6:41 AM SENIOR MARKETING SPECIALIST 08/27/2024 6:56 AM SENIOR MARKETING SPECIALIST us Mello Ariza MD LAB BLOOD ORDERABLE S Final Result [facility] [address] [place] [address] * eGFR (08/08/2024 9:27 AM SENIOR MARKETING SPECIALIST) Pathologist [facility] eGFR >90 >=60 mL/min/1. 73 m2 Comment: Interpretive Data Reference Interval Normal >/= 90 mL/min/1.73m2 Mildly decreased* 60 - 89 mL/min/1.73m2 Mildly to moderately decreased 45 - 59 mL/min/1.73m2 Moderately to severely decreased 30 - 44 mL/min/1.73m2 Severely decreased 15 - 29 mL/min/1.73m2 Kidney Failure < 15 mL/min/1.73m2 *Relative to young adult level Estimated glomerular filtration rate is determined by the 2020 CKD-EPI equation recommended by the National Kidney Foundation (A Unifying Approach to GFR Estimation: Recommendations of the NKF-ASK Task Force on Reassessing the Inclusion of Race in Diagnosing Kidney Disease, JASN 2020). The CKD-EPI equation should not be used for patients with unstable renal function and has not been validated in children and those over 70. Current interpretive data was last reviewed 2021. Testing performed by: [address] [address] Blood 08/08/2024 9:27 AM SENIOR MARKETING SPECIALIST 08/08/2024 9:32 AM SENIOR MARKETING SPECIALIST us Iglesia Triplett MD LAB BLOOD ORDERABLES Final Resul t [facility] [address] [place] [address] * Differential, auto (08/08/2024 9:27 AM SENIOR MARKETING SPECIALIST) Pathologist [facility] Neutrophil abs 6.1 1.5 - 6.5 K/cumm Comment:Testing performed by : [address] [address] Imm gran abs 0.1 0.0 - 0.1 K/cumm CERNER Comment:Testing performed by : [address] [address] Lymphocyte abs 2.0 0.8 - 3.3 K/cumm CERNER Comment:Testing performed by : [address] [address] Monocyte abs 0.6 0.2 - 0.8 K/cumm CERNER Comment:Testing performed by : [address] [address] Eosinophil abs 0.1 0.0 - 0.5 K/cumm C[facility]ER Comment:Testing performed by : [address] [address] Basophil abs 0.0 0.0 - 0.1 K/cumm [facility] Comment:Testing performed by : [address] [address] Neutrophil pct 68.6 % C[facility]ER Comment: Interpretive Data Percent cell count reference ranges are not reported, since discordance with absolute values may lead to misinterpretation of CBC data. Current Interpretive Data was last revised on 2017. Testing performed by: [address] [address] Imm gran pct 0.6 % [facility] Comment: Interpretive Data Percent cell count reference ranges are not reported, since discordance with absolute values may lead to misinterpretation of CBC data. Current Interpretive Data was last revised on 2017. Testing performed by: [address] [address] Lymphocyte pct 22.6 % [facility] Comment: Interpretive Data Percent cell count reference ranges are not reported, since discordance with absolute values may lead to misinterpretation of CBC data. Current Interpretive Data was last revised on 2017. Testing performed by: [address] [address] Monocyte pct 6.6 % [facility] Comment: Interpretive Data Percent cell count reference ranges are not reported, since discordance with absolute values may lead to misinterpretation of CBC data. Current Interpretive Data was last revised on 2017. Testing performed by: [address] [address] Eosinophil pct 1.3 % [facility] Comment: Interpretive Data Percent cell count reference ranges are not reported, since discordance with absolute values may lead to misinterpretation of CBC data. Current Interpretive Data was last revised on 2017. Testing performed by: [address] [address] Basophil pct 0.3 % [facility] Comment: Interpretive Data Percent cell count reference ranges are not reported, since discordance with absolute values may lead to misinterpretation of CBC data. Current Interpretive Data was last revised on 2017. Testing performed by: [address] [address] Blood 08/08/2024 9:27 AM SENIOR MARKETING SPECIALIST 08/08/2024 9:32 AM SENIOR MARKETING SPECIALIST us Iglesia Triplett MD LAB BLOOD ORDERABLES Final Resul t [facility] [address] [facility] Department [place] [address] * (ABNORMAL) Urinalysis reflex to microscopic and culture Urine (08/08/2024 9:27 AM SENIOR MARKETING SPECIALIST) Color, ur Yellow Yellow Comment:Testing performed by : [address] [address] Clarity, ur Clear Clear [facility] Comment:Testing performed by : [address] [address] Specific gravity, ur 1.014 1.003 - 1.030 [facility] Comment:Testing performed by : [address] [address] pH, urine 6.0 [facility] Comment: Interpretive Data U rine pH is affected by diet, medications, systemic acid-base disturbances, and renal tubular function. pH may affect urinary stone formation. For example, urine pH below 6.0 may help reduce the tendency for calcium phosphate stones and pH greater than 6.0 may reduce the tendency for uric acid stone formation. Source: [facility] [address] Current Interpretive Data was last revised on 2017 Testing performed by: [facility], [address] [place] [address]., [address] Protein, ur ql Negative Negative [facility] Comment:Testing performed by : [facility], [address] [place] [address], [place]., [address] Glucose, ur ql Negative Negative [facility] Comment:Testing performed by : [address], [place]., [address] Ketones, ur 1+(A) Negative [facility] Comment:Testing performed by : [address], [place]., [address] Bilirubin, ur Negative Negative [facility] Comment:Testing performed by : [address], [place]., [address] Blood, ur Negative Negative [facility] Comment:Testing performed by : [address], [place]., [address] Urobilinogen, ur <2.0 <2.0 mg/dL [facility] Comment:Testing performed by : [address], [place]., [address] Nitrite, ur Negative Negative [facility] Comment:Testing performed by : [address], [place]., [address] Leukocyte esterase, ur Negative Negative [facility] Comment:Testing performed by : [address], [place]., [address] UA reflex comment Reflex conditions for microscopic UA and culture not met. [facility] Comment:Testing performed by : [address] [address] Urine 08/08/2024 9:27 AM SENIOR MARKETING SPECIALIST 08/08/2024 9:32 AM SENIOR MARKETING SPECIALIST us Iglesia Triplett MD LAB MICROBIOLOGY - GENERAL ORDER ASTRID Final Result [facility] GIANG [address] [facility] Department [place] [address] * (ABNORMAL) CBC with auto differential (08/08/2024 9:27 AM SENIOR MARKETING SPECIALIST) WBC 8.9 3.8 - 9.9 K/cumm Comment:Testing performed by : [address], [address] Hgb 15.3 13.0 - 17.5 g/dL [facility] Comment:Testing performed by : [address] [address] Hct 44.0 38.9 - 50.3 % [facility] Comment:Testing performed by : [address] [address] Plt 305 150 - 400 K/cumm [facility] Comment:Testing performed by : [address], [address] MPV 10.0 9.1 - 12.3 fL [facility] Comment:Testing performed by : [address], [address] RBC 5.68 4.30 - 5.80 M/cumm [facility] Comment:Testing performed by : [address], [address] MCV 77.5(L) 81.3 - 96.4 fL [facility] Comment:Testing performed by : [address], [address] MCH 26.9(L) 27.1 - 33.3 pg [facility] Comment:Testing performed by : [address], [address] MCHC 34.8 32.3 - 35.7 g/dL [facility] Comment:Testing performed by : [address], [address] RDW CV 14.2 11.1 - 14.9 % [facility] Comment:Testing performed by : [address], [address] RDW SD 38.9 35.7 - 48.1 fL [facility] Comment:Testing performed by : [address], [address] NRBC abs 0.00 0.00 - 0.01 K/cumm [facility] Comment:Testing performed by : [address], [address] Blood (Blood, Venous) 08/08/2024 9:27 AM SENIOR MARKETING SPECIALIST 08/08/2024 9:32 AM SENIOR MARKETING SPECIALIST us Iglesia Triplett MD LAB BLOOD ORDERABLES Final Resul t Performing Organization Address [facility] Co de Phone Number [address] [address] * Lipase (08/08/2024 9:27 AM SENIOR MARKETING SPECIALIST) Pathologist [facility] Lipase 16 10 - 99 Units/L Comment:Testing performed by : [address] [address] Blood (Blood, Venous) 08/08/2024 9:27 AM SENIOR MARKETING SPECIALIST 08/08/2024 9:32 AM SENIOR MARKETING SPECIALIST us Iglesia Triplett MD LAB BLOOD ORDERABLES Final Resul t Performing Organization Address [facility] de Phone Number [address] [address] * Comprehensive metabolic panel (08/08/2024 9:27 AM SENIOR MARKETING SPECIALIST) [facility] Sodium 137 135 - 145 mmol/L Comment:Testing performed by : [address] [address] Potassium, pl 3.7 3.3 - 4.9 mmol/L [facility] Comment:Testing performed by : [address] [address] Chloride 103 97 - 110 mmol/L [facility] Comment:Testing performed by : [address] [address] CO2 24 22 - 32 mmol/L [facility] Comment:Testing performed by : [address] [address] Anion gap 10 2 - 15 mmol/L [facility] Comment:Testing performed by : [address] [address] BUN 9 6 - 25 mg/dL [facility] Comment:Testing performed by : [address] [address] Creatinine 0.80 0.80 - 1.30 mg/dL [facility] Comment:Testing performed by : [address] [address] Glucose 91 70 - 199 mg/dL [facility] Comment: Interpretive Data Fasting glucose >/= 126 mg/dl is diagnostic for diabetes. Fasting is defined as no caloric intake for at least 8 hours. Fasting glucose between 100 mg/dl to 125 mg/dl is diagnostic of prediabetes. In a patient with classic symptoms of hyperglycemia or hyperglycemic crisis, a random glucose >/= 200 mg/dl is diagnostic for diabetes. In the absence of unequivocal hyperglycemia, results should be confirmed by repeat testing. The classification and Diagnosis of Diabetes Diabetes Care 2021; 46: S19-S40. Current interpretive data was last revised 2022. Testing performed by: [address] [address] Calcium 9.7 8.5 - 10.3 mg/dL [facility] Comment:Testing performed by : [address] [address] Bilirubin, total 0.8 0.1 - 1.2 mg/dL [facility] Comment:Testing performed by : [address] [address] Protein, pl 7.3 6.5 - 8.5 g/dL [facility] Comment:Testing performed by : [address] [address] Albumin 4.7 3.5 - 5.0 g/dL [facility] Comment:Testing performed by : [address] [address] Alk phos 62 40 - 130 Units/L [facility] Comment:Testing performed by : [address] [address] ALT 26 7 - 55 Units/L [facility] Comment:Testing performed by : [address] [address] AST 18 10 - 50 Units/L [facility] Comment:Testing performed by : [address] [address] Blood 08/08/2024 9:27 AM SENIOR MARKETING SPECIALIST 08/08/2024 9:32 AM SENIOR MARKETING SPECIALIST us Iglesia Triplett MD LAB BLOOD ORDERABLES Final Resul t [facility] [address] [facility] Department [place] [address] * CT Abdomen Pelvis W Contrast (08/05/2024 6:19 PM SENIOR MARKETING SPECIALIST) Anatomical Region Laterality Modality Body N/A Computed Tomogra phy 08/05/2024 6:26 PM SENIOR MARKETING SPECIALIST Impressions 08/05/2024 6:30 PM SENIOR MARKETING SPECIALIST No acute finding in the abdomen or pelvis. Dictated by: James Harrell MD PHD The radiology attending physician has personally reviewed this study, and had reviewed and/or edited this written report and agrees with it. Electronically signed by: Bishop Viramontes M.D. Narrative 08/05/2024 6:30 PM SENIOR MARKETING SPECIALIST EXAMINATION: CT ABDOMEN PELVIS W CONTRAST HISTORY: Nausea and vomiting, nonlocalized abdominal pain TECHNIQUE: Transaxial computed tomographic images of the abdomen and pelvis were obtained with intravenous contrast according to the standard protocol after the uneventful administration of 95 mL Opti-Ray 350 intravenous contrast. COMPARISON: None FINDINGS: Lung bases are clear. Imaged heart is normal in size with no pericardial effusion. No suspicious hepatic lesion. Area of hypoattenuation on image 40 adjacent the falciform ligament could represent focal fat. Patent portal vein. No biliary ductal dilatation. Normal gallbladder. The spleen, pancreas, and adrenal glands are normal. Kidneys enhance symmetrically without hydronephrosis or suspicious exophytic renal lesion. Incompletely distended urinary bladder. Normal appendix. Minimal colonic diverticulosis. The stomach and duodenal sweep are normal. No evidence of bowel obstruction. No ascites or pneumoperitoneum. Intra-abdominal vasculature is patent. High attenuation material is seen within the colon, compatible with ingested contents. The abdominal aorta is normal in course and caliber. No lymphadenopathy is seen in the abdomen or pelvis. No suspicious osseous lesion. Procedure Note Bishop Viramontes MD - 08/05/2024 EXAMINATION: CT ABDOMEN PELVIS W CONTRAST HISTORY: Nausea and vomiting, nonlocalized abdominal pain TECHNIQUE: Transaxial computed tomographic images of the abdomen and pelvis were obtained with intravenous contrast according to the standard protocol after the uneventful administration of 95 mL Opti-Ray 350 intravenous contrast. COMPARISON: None FINDINGS: Lung bases are clear. Imaged heart is normal in size with no pericardial effusion. No suspicious hepatic lesion. Area of hypoattenuation on image 40 adjacent the falciform ligament could represent focal fat. Patent portal vein. No biliary ductal dilatation. Normal gallbladder. The spleen, pancreas, and adrenal glands are normal. Kidneys enhance symmetrically without hydronephrosis or suspicious exophytic renal lesion. Incompletely distended urinary bladder. Normal appendix. Minimal colonic diverticulosis. The stomach and duodenal sweep are normal. No evidence of bowel obstruction. No ascites or pneumoperitoneum. Intra-abdominal vasculature is patent. High attenuation material is seen within the colon, compatible with ingested contents. The abdominal aorta is normal in course and caliber. No lymphadenopathy is seen in the abdomen or pelvis. No suspicious osseous lesion. IMPRESSION: No acute finding in the abdomen or pelvis. Dictated by: James Harrell MD PHD The radiology attending physician has personally reviewed this study, and had reviewed and/or edited this written report and agrees with it. Electronically signed by: Bishop Viramontes M.D. Wesley Tompkins NP [facility] CT PROCEDURES Final Result * eGFR (08/05/2024 5:15 PM SENIOR MARKETING SPECIALIST) eGFR >90 >=60 mL/min/1. 73 m2 Comment: Interpretive Data Reference Interval Normal >/= 90 mL/min/1.73m2 Mildly decreased* 60 - 89 mL/min/1.73m2 Mildly to moderately decreased 45 - 59 mL/min/1.73m2 Moderately to severely decreased 30 - 44 mL/min/1.73m2 Severely decreased 15 - 29 mL/min/1.73m2 Kidney Failure < 15 mL/min/1.73m2 *Relative to young adult level Estimated glomerular filtration rate is determined by the 2020 CKD-EPI equation recommended by the National Kid[employer] (A Unifying Approach to GFR Estimation: Recommendations of the NKF-ASK Task Force on Reassessing the Inclusion of Race in Diagnosing Kidney Disease, JASN 2020). The CKD-EPI equation should not be used for patients with unstable renal function and has not been validated in children and those over 70. Current interpretive data was last reviewed 2021. Blood 08/05/2024 5:15 PM SENIOR MARKETING SPECIALIST 08/05/2024 5:25 PM SENIOR MARKETING SPECIALIST Isacc Carolina MD LAB BLOOD ORDERABLES F inal Result [facility] [place] [address] * (ABNORMAL) Differential, auto (08/05/2024 5:15 PM SENIOR MARKETING SPECIALIST) Neutrophil abs 9.1(H) 1.5 - 6.5 K/cumm Imm gran abs 0.1 0.0 - 0.1 K/cumm [facility] Lymphocyte abs 1.7 0.8 - 3.3 K/cumm [facility] Monocyte abs 0.7 0.2 - 0.8 K/cumm [facility] Eosinophil abs 0.0 0.0 - 0.5 K/cumm [facility] Basophil abs 0.0 0.0 - 0.1 K/cumm [facility] Neutrophil pct 77.2 % [facility] Comment: Interpretive Data Percent cell count reference ranges are not reported, since discordance with absolute values may lead to misinterpretation of CBC data. Current Interpretive Data was last revised on 2017. Imm gran pct 1.2 % [facility] Comment: Interpretive Data Percent cell count reference ranges are not reported, since discordance with absolute values may lead to misinterpretation of CBC data. Current Interpretive Data was last revised on 2017. Lymphocyte pct 14.7 % [facility] Comment: Interpretive Data Percent cell count reference ranges are not reported, since discordance with absolute values may lead to misinterpretation of CBC data. Current Interpretive Data was last revised on 2017. Monocyte pct 6.3 % [facility] Comment: Interpretive Data Percent cell count reference ranges are not reported, since discordance with absolute values may lead to misinterpretation of CBC data. Current Interpretive Data was last revised on 2017. Eosinophil pct 0.3 % [facility] Comment: Interpretive Data Percent cell count reference ranges are not reported, since discordance with absolute values may lead to misinterpretation of CBC data. Current Interpretive Data was last revised on 2017. Basophil pct 0.3 % [facility] Comment: Interpretive Data Percent cell count reference ranges are not reported, since discordance with absolute values may lead to misinterpretation of CBC data. Current Interpretive Data was last revised on 2017. Blood 08/05/2024 5:15 PM SENIOR MARKETING SPECIALIST 08/05/2024 5:25 PM SENIOR MARKETING SPECIALIST us Isacc Carolina MD LAB BLOOD ORDERABLES F inal Result [facility] [place] [address] * (ABNORMAL) Urinalysis reflex to microscopic (08/05/2024 5:15 PM SENIOR MARKETING SPECIALIST) Color, ur Straw Yellow Clarity, ur Clear Clear [facility] Specific gravity, ur 1.017 1.003 - 1.030 [facility] pH, urine 7.5 [facility] Comment: Interpretive Data U rine pH is affected by diet, medications, systemic acid-base disturbances, and renal tubular function. pH may affect urinary stone formation. For example, urine pH below 6.0 may help reduce the tendency for calcium phosphate stones and pH greater than 6.0 may reduce the tendency for uric acid stone formation. Source: [facility] [address] Devices Current Interpretive Data was last revised on 2017 Protein, ur ql Trace Negative [facility] Glucose, ur ql Negative Negative [facility] Ketones, ur 2+(A) Negative [facility] Bilirubin, ur Negative Negative [facility] Blood, ur Negative Negative [facility] Urobilinogen, ur <2.0 <2.0 mg/dL [facility] Nitrite, ur Negative Negative [facility] Leukocyte esterase, ur Negative Negative [facility] UA reflex comment Reflex conditions for microscopic UA not met. [facility] Urine 08/05/2024 5:15 PM SENIOR MARKETING SPECIALIST 08/05/2024 5:20 PM SENIOR MARKETING SPECIALIST Isacc Carolina MD LAB URINE ORDERABLES F inal Result Performing Organization Address [facility] de Phone Number [facility] Department [place] [address] * (ABNORMAL) CBC with auto differential (08/05/2024 5:15 PM SENIOR MARKETING SPECIALIST) Pathologist [facility] WBC 11.8(H) 3.8 - 9.9 K/cumm Hgb 17.0 13.0 - 17.5 g/dL [facility] Hct 48.5 38.9 - 50.3 % [facility] Plt 384 150 - 400 K/cumm [facility] MPV 10.2 9.1 - 12.3 fL [facility] RBC 6.30(H) 4.30 - 5.80 M/cumm [facility] MCV 77.0(L) 81.3 - 96.4 fL [facility] MCH 27.0(L) 27.1 - 33.3 pg [facility] MCHC 35.1 32.3 - 35.7 g/dL [facility] RDW CV 14.3 11.1 - 14.9 % [facility] RDW SD 37.9 35.7 - 48.1 fL [facility] NRBC abs 0.00 0.00 - 0.01 K/cumm [facility] Blood (Blood, Venous) 08/05/2024 5:15 PM SENIOR MARKETING SPECIALIST 08/05/2024 5:25 PM SENIOR MARKETING SPECIALIST Isacc Carolina MD LAB BLOOD ORDERABLES F inal Result Performing Organization Address [facility]/ZIP Co de Phone Number [facility] Department [place] [address] * Lipase (08/05/2024 5:15 PM SENIOR MARKETING SPECIALIST) Pathologist [facility] Lipase 20 10 - 99 Units/L Blood (Blood, Venous) 08/05/2024 5:15 PM SENIOR MARKETING SPECIALIST 08/05/2024 5:25 PM SENIOR MARKETING SPECIALIST Isacc Carolina MD LAB BLOOD ORDERABLES F inal Result [facility] [place] [address] * (ABNORMAL) Comprehensive metabolic panel (08/05/2024 5:15 PM SENIOR MARKETING SPECIALIST) Sodium 140 135 - 145 mmol/L Potassium, pl 4.7 3.3 - 4.9 mmol/L [facility] Comment:Hemolyzed; Potassium value may be falsely elevated by as much as 0.6-1.0 mmol/L. Suggest redraw and reanalysis. Chloride 99 97 - 110 mmol/L [facility] CO2 27 22 - 32 mmol/L [facility] Anion gap 14 2 - 15 mmol/L [facility] BUN 12 6 - 25 mg/dL [facility] Creatinine 0.91 0.80 - 1.30 mg/dL [facility] Glucose 97 70 - 199 mg/dL [facility] Comment: Interpretive Data Fasting glucose >/= 126 mg/dl is diagnostic for diabetes. Fasting is defined as no caloric intake for at least 8 hours. Fasting glucose between 100 mg/dl to 125 mg/dl is diagnostic of prediabetes. In a patient with classic symptoms of hyperglycemia or hyperglycemic crisis, a random glucose >/= 200 mg/dl is diagnostic for diabetes. In the absence of unequivocal hyperglycemia, results should be confirmed by repeat testing. The classification and Diagnosis of Diabetes Diabetes Care 2021; 46: S19-S40. Current interpretive data was last revised 2022. Calcium 10.5(H) 8.5 - 10.3 mg/dL [facility] Bilirubin, total 0.8 0.1 - 1.2 mg/dL [facility] Protein, pl 8.5 6.5 - 8.5 g/dL [facility] Albumin 5.3(H) 3.5 - 5.0 g/dL [facility] Alk phos 74 40 - 130 Units/L [facility] ALT 39 7 - 55 Units/L [facility] AST 35 10 - 50 Units/L [facility] Comment:Hemolyzed; result ma y be falsely elevated Blood 08/05/2024 5:15 PM SENIOR MARKETING SPECIALIST 08/05/2024 5:25 PM SENIOR MARKETING SPECIALIST Isacc Carolina MD LAB BLOOD ORDERABLES F inal Result [facility] [place] [address] from Last 3 Months Insurance [id number] [place] [address] [place] [address] Care Teams Gravity Prospecting Observer Helper Relationship Specialty Start Date End Date Sivan Boyd PA [address] [facility] [address] [place] [address] PCP - General Family Medicine 08/24/24
--- OUTSIDE RECORDS SUMMARY | 2024-09-07 00:52 | XMS_ITS | Referral Summary ---
Author Organization [facility] Address [address] [place] [address] Care Team Providers Care Model Artists' Name Role Phone Sivan Boyd Primary Care Provider + Encounters Date Type Department Care Team Description 09/06/2024 2:43 PM DIRECTOR OF ANALYTICS - 09/06/2024 3:49 PM [facility] Emergency [facility] Emergency Department [address] [place] [address] [phone] Left arm pain (Primary Dx) Discharge Disposition: Discharge to home or self care 09/05/2024 10:54 AM DIRECTOR OF ANALYTICS - 09/05/2024 11:59 PM [facility] Hospital Encounter [facility] Cardiac Testing [address] [place] [address] [phone] Bradycardia Discharge Disposition: Discharge to home or self care 09/04/2024 Telephone [facility] Gastroenterology at [address] [place] [phone] Omar Dao MD 08/28/2024 Orders Only [facility] Gastroenterology at [address] [place] [address] Omar Dao MD Weight loss (Primary Dx); Nausea and vomiting, unspecified vomiting type; Abdominal pain 08/27/2024 8:13 AM DIRECTOR OF ANALYTICS - 08/27/2024 11:03 AM [facility] Emergency [facility] Emergency Department [address] [place] [address] [phone] Mello Ariza MD Abdominal pain (Primary Dx) Discharge Disposition: Discharge to home or self care 08/24/2024 12:30 PM DIRECTOR OF ANALYTICS Office Visit [facility] Family Medicine [address] [phone] Sivan Boyd PA Dizziness (Primary Dx); Bradycardia; Abnormal EKG; Near syncope; New daily persistent headache; Diverticulosis 08/08/2024 10:30 AM DIRECTOR OF ANALYTICS - 08/08/2024 12:50 PM [facility] Emergency [facility] Emergency Department [address] [place] [address] Intermittent abdominal pain (Primary Dx); Dizziness Discharge Disposition: Discharge to home or self care 08/05/2024 3:40 PM DIRECTOR OF ANALYTICS - 08/05/2024 9:54 PM [facility] Emergency [facility] Emergency Department [address] [place] [address] Epigastric pain (Primary Dx); Strain of neck muscle, initial encounter Discharge Disposition: Discharge to home or self care from Last 3 Months Allergies No known active allergies Medications cyclobenzaprine [...] 08/25/2024 Assessment & Plan (08/25/2024 12:48 PM DIRECTOR OF ANALYTICS): Diverticulosis seen on CT of the abdomen/pelvis. [...] liver enzymes 11/10/201708/24 Viral URI 07/12/2015 08/24/2024 Immunizations Name Administration Dates Next Due DTaP [...] 7-Valent 01/20/20 02,01/17/2001,2000,09/14 Tdap 07/24/2011 Varicella 12/04/2015,07/22/2001 Social History Tobacco Use Types Packs/Day [...] on file Legal Sex Male 12:57 PM DIRECTOR OF ANALYTICS Gender Identity Not on file Sexual Orientation Not on file Last Filed Vital Signs Vital Sign Reading Time Taken Comments Blood Pressure 138/92 09/06/2024 3:42 PM DIRECTOR OF ANALYTICS Pulse 79 09/06/2024 3:42 PM DIRECTOR OF ANALYTICS Temperature 36.6 C (97.9 F) 09/06/2024 1:45 PM DIRECTOR OF ANALYTICS Respiratory Rate 18 09/06/2024 3:42 PM DIRECTOR OF ANALYTICS Oxygen Saturation 100% 09/06/2024 3:42 PM DIRECTOR OF ANALYTICS Inhaled Oxygen Concentration - - Weight 120.1 kg (264 lb 12.4 oz) 09/06/2024 1:45 PM DIRECTOR OF ANALYTICS Height 182.9 cm (6') 08/27/2024 6:21 AM DIRECTOR OF ANALYTICS Body Mass Index 35.91 08/27/2024 6:21 AM DIRECTOR OF ANALYTICS Plan of Treatment Not on file Procedures Procedure Name Priority Date/Time Associated Diagnosis Comments HEMOGLOBIN A1C Routine 08/31/2024 1:45 PM DIRECTOR OF ANALYTICS Screening for diabetes mellitus COMPREHENSIVE METABOLIC PANEL Routine 08/31/2024 1:45 PM DIRECTOR OF ANALYTICS Hypercalcemia PTH Routine 08/31/2024 1:45 PM DIRECTOR OF ANALYTICS Hypercalcemia CTA ABDOMEN PELVIS W WO CONTRAST ED 08/27/2024 9:33 AM DIRECTOR OF ANALYTICS TROPONIN T HIGH-SENSITIVITY 2-HOUR Timed 08/27/2024 8:24 AM DIRECTOR OF ANALYTICS URINALYSIS AND REFLEX TO MICROSCOPIC AND CULTURE STAT 08/27/2024 6:51 AM DIRECTOR OF ANALYTICS ECG 12-LEAD STAT 08/27/2024 6:45 AM DIRECTOR OF ANALYTICS EGFR STAT 08/27/2024 6:41 AM DIRECTOR OF ANALYTICS DIFFERENTIAL AUTO STAT 08/27/2024 6:4 1 AM DIRECTOR OF ANALYTICS PROTIME-INR STAT 08/27/2024 6:41 AM DIRECTOR OF ANALYTICS THYROID FUNCTION CASCADE STAT 08/27/2024 6:41 AM DIRECTOR OF ANALYTICS TROPONIN T HIGH-SENSITIVITY SERIES (BASELINE, 2HR, 4HR, 6HR) STAT 08/27/2024 6:41 AM DIRECTOR OF ANALYTICS SEPSIS LACTATE WITH REFLEX STAT 08/27/2024 6:41 AM DIRECTOR OF ANALYTICS LIPASE STAT 08/27/2024 6:41 AM DIRECTOR OF ANALYTICS COMPREHENSIVE METABOLIC PANEL STAT 08/27/2024 6:41 AM DIRECTOR OF ANALYTICS CBC WITH AUTO DIFFERENTIAL STAT 08/27/2024 6:41 AM DIRECTOR OF ANALYTICS EGFR STAT 08/08/2024 9:27 AM DIRECTOR OF ANALYTICS DIFFERENTIAL AUTO STAT 08/08/2024 9:2 7 AM DIRECTOR OF ANALYTICS LIPASE STAT 08/08/2024 9:27 AM DIRECTOR OF ANALYTICS COMPREHENSIVE METABOLIC PANEL STAT 08/08/2024 9:27 AM DIRECTOR OF ANALYTICS CBC WITH AUTO DIFFERENTIAL STAT 08/08/2024 9:27 AM DIRECTOR OF ANALYTICS URINALYSIS AND REFLEX TO MICROSCOPIC AND CULTURE STAT 08/08/2024 9:[address] ABDOMEN PELVIS W CONTRAST ED 08/05/2024 6:19 PM DIRECTOR OF ANALYTICS EGFR STAT 08/05/2024 5:15 PM DIRECTOR OF ANALYTICS DIFFERENTIAL AUTO STAT 08/05/2024 5:1 5 PM DIRECTOR OF ANALYTICS URINALYSIS AND REFLEX TO MICROSCOPIC STAT 08/05/2024 5:15 PM DIRECTOR OF ANALYTICS LIPASE STAT 08/05/2024 5:15 PM DIRECTOR OF ANALYTICS COMPREHENSIVE METABOLIC PANEL STAT 08/05/2024 5:15 PM DIRECTOR OF ANALYTICS CBC WITH AUTO DIFFERENTIAL STAT 08/05/2024 5:15 PM DIRECTOR OF ANALYTICS from Last 3 Months Results * (ABNORMAL) PTH (08/31/2024 1:45 PM DIRECTOR OF ANALYTICS) Parathyroid hormone, intact 12(L) 16 - 77 pg/mL [facility] Comment: Interpretive Guide Intact PTH Calcium ------- Normal Parathyroid Normal Normal Hypoparathyroidism Low or Low Normal Low Hyperparathyroidism Primary Normal or High High Secondary High Normal or Low Tertiary High High Non-Parathyroid Hypercalcemia Low or Low Normal High Blood 08/31/2024 1:45 PM DIRECTOR OF ANALYTICS 08/31/2024 1:45 PM DIRECTOR OF ANALYTICS us Sivan CLAIRE LAB BLOOD ORDERABLES Fin al Result [facility] [address] [phone] * Hemoglobin A1c (08/31/2024 1:45 PM DIRECTOR OF ANALYTICS) [facility] Hgb A1C 4.8 <5.7 % of total Hgb [facility] Comment: For the purpose of screening for the presence of diabetes: <5.7% Consistent with the absence of diabetes 5.7-6.4% Consistent with increased risk for diabetes (prediabetes) > or =6.5% Consistent with diabetes This assay result is consistent with a decreased risk of diabetes. Currently, no consensus exists regarding use of hemoglobin A1c for diagnosis of diabetes in children. According to [place] Diabetes Association (ADA) guidelines, hemoglobin A1c <7.0% represents optimal control in non- diabetic patients. Different metrics may apply to specific patient populations. Standards of Medical Care in Diabetes(ADA). Blood 08/31/2024 1:45 PM DIRECTOR OF ANALYTICS 08/31/2024 1:45 PM DIRECTOR OF ANALYTICS us Sivan CLAIRE LAB BLOOD ORDERABLES Fin al Result [facility] [address] [place] [address] * (ABNORMAL) Comprehensive metabolic panel (08/31/2024 1:45 PM DIRECTOR OF ANALYTICS) [facility] Glucose 93 65 - 99 mg/dL [facility] Comment: Fasting reference interval BUN 13 7 - 25 mg/dL [facility] Creatinine 0.86 0.60 - 1.24 mg/dL [facility] eGFR 124 > OR = 60 mL/min/1.7 3m2 [facility] BUN/creat ratio SEE NOTE: 6 - 22 (calc) [facility] Comment: Not Reported: BUN and Creatinine are within reference range. Sodium 138 135 - 146 mmol/L [facility] Potassium, pl 4.4 3.5 - 5.3 mmol/L [facility] Chloride 101 98 - 110 mmol/L [facility] CO2 26 20 - 32 mmol/L [facility] Calcium 10.1 8.6 - 10.3 mg/dL [facility] Protein, sr 7.3 6.1 - 8.1 g/dL [facility] Albumin 5.1 3.6 - 5.1 g/dL [facility] GLOBULIN 2.2 1.9 - 3.7 g/dL (calc) [facility] Alb/glob ratio 2.3 1.0 - 2.5 (calc) [facility] Bilirubin, total 0.6 0.2 - 1.2 mg/dL [facility] Alk phos 46 36 - 130 U/L [facility] AST 25 10 - 40 U/L [facility] ALT (SGPT) 50(H) 9 - 46 U/L [facility] Blood 08/31/2024 1:45 PM DIRECTOR OF ANALYTICS 08/31/2024 1:45 PM DIRECTOR OF ANALYTICS us Sivan CLAIRE LAB BLOOD ORDERABLES Fin al Result [facility] [address] [place] [address] * CTA Abdomen Pelvis (08/27/2024 9:33 AM DIRECTOR OF ANALYTICS) Anatomical Region Laterality Modality Body N/A Computed Tomogra phy 08/27/2024 10:0 4 AM DIRECTOR OF ANALYTICS Narrative 08/27/2024 10:17 AM DIRECTOR OF ANALYTICS EXAM DESCRIPTION: CTA ABDOMEN PELVIS REASON FOR [...] is a late venous phase. Per the radiation therapy technologist the bolus tracking never triggered. Repeat [...] thickening. Normal appendix. No significant diverticular disease. Qmuy-[id number] colonic stool burden may represent mild constipation [...] Ramon White M.D. MM: MM Report ID: [id number] Reading Location: [id number] Procedure Note Ramon White MD - 08/27/2024 [...] a.m. is a latevenous phase. Per the radiation therapy technologist the bolus tracking never triggered.Repeat contrast [...] wall thickening. Normalappendix. No significant diverticular disease. [id number] colonic stoolburden may represent mild constipation in [...] Ramon White M.D. MM: MM Report ID: [id number] Reading Location: [place] [address] Mellojayme Ariza MD IM CT PROCEDURES F inal Result * Troponin T high-sensitivity 2-hour (08/27/2024 8:24 AM DIRECTOR OF ANALYTICS) Trop T hs <6 <=22 ng/L Comment: Interpretive Data For further hscTnT resources including the diagnostic algorithm and an aid in interpretation, copy and paste this link: https://nrl.testcatalog.org/show/hsTrop Current Interpretive Data last revised 2020. Testing performed by: [address] [address] Trop T hs delta 0 ng/L [facility] GIANG Comment:Testing performed by : [address] [address] Trop T hs interp Insignificant [facility] GIANG Comment:Testing performed by : [address] [address] Blood 08/27/2024 8:24 AM DIRECTOR OF ANALYTICS 08/27/2024 8:26 AM DIRECTOR OF ANALYTICS us Mello Ariza MD LAB BLOOD ORDERABLE S Final Result [facility] GIANG [address] [facility] Department [place] [address] * Urinalysis reflex to microscopic and culture Urine (08/27/2024 6:51 AM DIRECTOR OF ANALYTICS) Color, ur Straw Yellow Comment:Testing performed by : [address] [address] Clarity, ur Clear Clear [facility] Comment:Testing performed by : [address] [address] Specific gravity, ur 1.006 1.003 - 1.030 [facility] Comment:Testing performed by : [address] [address] pH, urine 6.0 [facility] Comment: Interpretive Data U rine pH is affected by diet, medications, systemic acid-base disturbances, and renal tubular function. pH may affect urinary stone formation. For example, urine pH below 6.0 may help reduce the tendency for calcium phosphate stones and pH greater than 6.0 may reduce the tendency for uric acid stone formation. Source: [facility] Current Interpretive Data was last revised on 2017 Testing performed by: [address] [address] Protein, ur ql Negative Negative [facility] Comment:Testing performed by : [address] [address] Glucose, ur ql Negative Negative [facility] Comment:Testing performed by : [address] [address] Ketones, ur Negative Negative AP[facility] GIANG Comment:Testing performed by : [address] [address] Bilirubin, ur Negative Negative AP[facility] GIANG Comment:Testing performed by : [address] [address] Blood, ur Negative Negative [facility] Comment:Testing performed by : [address] [place] [address] Urobilinogen, ur <2.0 <2.0 mg/dL [facility] Comment:Testing performed by : [address] [address] Nitrite, ur Negative Negative [facility] Comment:Testing performed by : [address] [address] Leukocyte esterase, ur Negative Negative [facility] Comment:Testing performed by : [address] [address] UA reflex comment Reflex conditions for microscopic UA and culture not met. [facility] Comment:Testing performed by : [address] [address] Urine 08/27/2024 6:51 AM DIRECTOR OF ANALYTICS 08/27/2024 6:56 AM DIRECTOR OF ANALYTICS us Mello Ariza MD LAB MICROBIOLOGY - GENERAL ORDERABLES Final Result [facility] [address] [facility] Department [place] [address] * ECG 12 lead (08/27/2024 6:45 AM DIRECTOR OF ANALYTICS) Ventricular Rate EKG/Min 50 BPM [facility] Atrial Rate 50 BPM [facility] TN-Interval (MSEC) 168 ms [facility] QRS-Interval (MSEC) 112 ms [facility] QT-Interval (MSEC) 416 ms [facility] QTc 379 ms [facility] P [place] 13 degrees [facility] R [place] -16 degrees [facility] T [place] 2 degrees [facility] Diagnosis Sinus bradycardia with sinus arrhythmia Incomplete right bundle branch block Moderate voltage criteria for LVH, may be normal variant Borderline ECG No previous ECGs available Confirmed by TIMOTHY BEAUCHAMP M.D. ([id number]) on 08/28/2024 8:33:23 PM [facility] 08/27/2024 6:45 AM DIRECTOR OF ANALYTICS 08/28/2024 8:33 PM DIRECTOR OF ANALYTICS us Mello Ariza MD ECG ORDERABLES Fin al Result [facility] * Troponin T high-sensitivity series (baseline, 2hr, 4hr, 6hr) (08/27/2024 6:41 AM DIRECTOR OF ANALYTICS) [facility] Trop T hs <6 <=22 ng/L Comment: Interpretive Data For further hscTnT resources including the diagnostic algorithm and an aid in interpretation, copy and paste this link: https://nrl.testcatalog.org/show/hsTrop Current Interpretive Data last revised 2020. Testing performed by: [address] [address] Blood 08/27/2024 6:41 AM DIRECTOR OF ANALYTICS 08/27/2024 6:56 AM DIRECTOR OF ANALYTICS us Mello Ariza MD LAB BLOOD ORDERABLE S Final Result Performing Organization Address [facility] Co de Phone Number [facility] [address] [place] [address] * Sepsis Lactate w/ Reflex (08/27/2024 6:41 AM DIRECTOR OF ANALYTICS) [facility] Sepsis Lactate 0.9 0.7 - 2.0 mmol/L Comment:Testing performed by : [address] [address] Blood 08/27/2024 6:41 AM DIRECTOR OF ANALYTICS 08/27/2024 6:56 AM DIRECTOR OF ANALYTICS Mello Ariza MD LAB BLOOD ORDERABLE S Final Result Performing Organization Address [facility] Co de Phone Number AP[facility] [address] [place] [address] * eGFR (08/27/2024 6:41 AM DIRECTOR OF ANALYTICS) [facility] eGFR >90 >=60 mL/min/1. 73 m2 Comment: [...] was last reviewed 2021. Testing performed by: [address] [address] Blood 08/27/2024 6:41 AM DIRECTOR OF ANALYTICS 08/27/2024 6:56 AM DIRECTOR OF ANALYTICS us Mello Ariza MD LAB BLOOD ORDERABLE S Final Result [facility] [address] [facility] Department [place] [address] * Differential, auto (08/27/2024 6:41 AM DIRECTOR OF ANALYTICS) Neutrophil abs 4.7 1.5 - 6.5 K/cumm Comment:Testing performed by : [address] [address] Imm gran abs 0.0 0.0 - 0.1 K/cumm [facility] Comment:Testing performed by : [address] [address] Lymphocyte abs 2.4 0.8 - 3.3 K/cumm [facility] Comment:Testing performed by : [address] [address] Monocyte abs 0.7 0.2 - 0.8 K/cumm [facility] Comment:Testing performed by : [address] [address] Eosinophil abs 0.2 0.0 - 0.5 K/cumm [facility] Comment:Testing performed by : [address] [address] Basophil abs 0.0 0.0 - 0.1 K/cumm [facility] Comment:Testing performed by : [address] [address] Neutrophil pct 58.3 % [facility] Comment: Interpretive Data Percent cell count reference ranges are not reported, since discordance with absolute values may lead to misinterpretation of CBC data. Current Interpretive Data was last revised on 2017. Testing performed by: [address] [address] Imm gran pct 0.4 % [facility] Comment: Interpretive Data Percent cell count reference ranges are not reported, since discordance with absolute values may lead to misinterpretation of CBC data. Current Interpretive Data was last revised on 2017. Testing performed by: [address] [address] Lymphocyte pct 29.1 % [facility] Comment: Interpretive Data Percent cell count reference ranges are not reported, since discordance with absolute values may lead to misinterpretation of CBC data. Current Interpretive Data was last revised on 2017. Testing performed by: [address] [address] Monocyte pct 8.8 % [facility] Comment: Interpretive Data Percent cell count reference ranges are not reported, since discordance with absolute values may lead to misinterpretation of CBC data. Current Interpretive Data was last revised on 2017. Testing performed by: [address] [address] Eosinophil pct 3.0 % [facility] Comment: Interpretive Data Percent cell count reference ranges are not reported, since discordance with absolute values may lead to misinterpretation of CBC data. Current Interpretive Data was last revised on 2017. Testing performed by: [address] [address] Basophil pct 0.4 % [facility] Comment: Interpretive Data Percent cell count reference ranges are not reported, since discordance with absolute values may lead to misinterpretation of CBC data. Current Interpretive Data was last revised on 2017. Testing performed by: [address] [address] Blood 08/27/2024 6:41 AM DIRECTOR OF ANALYTICS 08/27/2024 6:56 AM DIRECTOR OF ANALYTICS Mello Ariza MD LAB BLOOD ORDERABLE S Final Result Performing Organization Address [facility] de Phone Number [address] [place] [address] * Thyroid Function Ralls (08/27/2024 6:41 AM DIRECTOR OF ANALYTICS) TSH 1.51 0.30 - 4.20 mcIUnit/mL Comment:Testing performed by : [address] [address] Blood 08/27/2024 6:41 AM DIRECTOR OF ANALYTICS 08/27/2024 6:56 AM DIRECTOR OF ANALYTICS us Mello Ariza MD LAB BLOOD ORDERABLE S Final Result Performing Organization Address [facility] de Phone Number [address] [facility] [address] * (ABNORMAL) CBC with auto differential (08/27/2024 6:41 AM DIRECTOR OF ANALYTICS) WBC 8.1 3.8 - 9.9 K/cumm Comment:Testing performed by : [address] [address] Hgb 14.7 13.0 - 17.5 g/dL [facility] Comment:Testing performed by : [address] [address] Hct 41.7 38.9 - 50.3 % [facility] GIANG Comment:Testing performed by : [address] [address] Plt 307 150 - 400 K/cumm [facility] GIANG Comment:Testing performed by : [address] [address] MPV 10.0 9.1 - 12.3 fL [facility] GIANG Comment:Testing performed by : [address], [address] RBC 5.43 4.30 - 5.80 M/cumm [facility]UR[facility] GIANG Comment:Testing performed by : [address] [address] MCV 76.8(L) 81.3 - 96.4 fL [facility] Comment:Testing performed by : [address] [address] MCH 27.1 27.1 - 33.3 pg APURVA GIANG Comment:Testing performed by : [address], [address] MCHC 35.3 32.3 - 35.7 g/dL [facility] Comment:Testing performed by : [address], [address] RDW CV 14.0 11.1 - 14.9 % [facility] Comment:Testing performed by : [address], [address] RDW SD 38.5 35.7 - 48.1 fL [facility] Comment:Testing performed by : [address], [address] NRBC abs 0.00 0.00 - 0.01 K/cumm [facility] Comment:Testing performed by : [address] [address] Blood 08/27/2024 6:41 AM DIRECTOR OF ANALYTICS 08/27/2024 6:56 AM DIRECTOR OF ANALYTICS us Mello Ariza MD LAB BLOOD ORDERABLE S Final Result [facility] [address] [facility] Department [place] [address] * Protime-INR (08/27/2024 6:41 AM DIRECTOR OF ANALYTICS) PT 13.4 12.0 - 14.6 sec Comment:Testing performed by : [address], [address] INR 1.0 0.9 - 1.2 [facility] Comment: Ref Range High Interpretive data Oral anticoagulant therapeutic ranges: Venous thromboembolism prophylaxis or treatment: 2.0-3.0 CARDIOLOGY Standard range: 2.0-3.0 High-intensity range: 2.5-3.5 Refer to indication-specific guidelines for appropriate target ranges for prosthetic heart valve replacement. Current interpretive data was last revised on 2019. Testing performed by: [address] [address] Blood 08/27/2024 6:41 AM DIRECTOR OF ANALYTICS 08/27/2024 6:56 AM DIRECTOR OF ANALYTICS Mello Ariza MD LAB BLOOD ORDERABLE S Final Result Performing Organization Address [facility] Co de Phone Number [address] [place] [address] * Lipase (08/27/2024 6:41 AM DIRECTOR OF ANALYTICS) Pathologist [facility] Lipase 23 10 - 99 Units/L Comment:Testing performed by : [address] [address] Blood 08/27/2024 6:41 AM DIRECTOR OF ANALYTICS 08/27/2024 6:56 AM DIRECTOR OF ANALYTICS Mello Ariza MD LAB BLOOD ORDERABLE S Final Result Performing Organization Address [facility] Co de Phone Number [address] [address] * (ABNORMAL) Comprehensive metabolic panel (08/27/2024 6:41 AM DIRECTOR OF ANALYTICS) Pathologist [facility] Sodium 138 135 - 145 mmol/L Comment:Testing performed by : [address] [address] Potassium, pl 4.6 3.3 - 4.9 mmol/L [facility] Comment: Hemolyzed; Potassium value may be falsely elevated by as much as 1.0 mmol/L. Suggest redraw and reanalysis. Testing performed by: [address] [address] Chloride 102 97 - 110 mmol/L [facility] Comment:Testing performed by : [address] [address] CO2 23 22 - 32 mmol/L [facility] Comment:Testing performed by : [address], [place]., [address] Anion gap 13 2 - 15 mmol/L [facility] Comment:Testing performed by : [address], [place]., [address] BUN 13 6 - 25 mg/dL [facility] Comment:Testing performed by : [address], [place]., [address] Creatinine 0.82 0.80 - 1.30 mg/dL [facility] Comment:Testing performed by : [address], [place]., [address] Glucose 93 70 - 199 mg/dL APURVA [...] was last revised 2022. Testing performed by: [address] [address] Calcium 10.8(H) 8.5 - 10.3 mg/dL [facility] Comment:Testing performed by : [address] [address] Bilirubin, total 0.5 0.1 - 1.2 mg/dL [facility] Comment:Testing performed by : [address] [address] Protein, pl 7.6 6.5 - 8.5 g/dL [facility] Comment:Testing performed by : [address] [address] Albumin 4.8 3.5 - 5.0 g/dL [facility] Comment:Testing performed by : [address] [address] Alk phos 58 40 - 130 Units/L [facility] Comment:Testing performed by : [address] [address] ALT 60(H) 7 - 55 Units/L [facility] Comment:Testing performed by : [address] [address] AST 41 10 - 50 Units/L [facility] Comment: Hemolyzed; result may be falsely elevated Testing performed by: [address] [address] Blood 08/27/2024 6:41 AM DIRECTOR OF ANALYTICS 08/27/2024 6:56 AM DIRECTOR OF ANALYTICS us Mello Ariza MD LAB BLOOD ORDERABLE S Final Result [facility] [address] [facility] Department of Laboratories [place] [address] * eGFR (08/08/2024 9:27 AM DIRECTOR OF ANALYTICS) eGFR >90 >=60 mL/min/1. 73 m2 Comment: [...] was last reviewed 2021. Testing performed by: [address] [address] Blood 08/08/2024 9:27 AM DIRECTOR OF ANALYTICS 08/08/2024 9:32 AM DIRECTOR OF ANALYTICS us Iglesia Triplett MD LAB BLOOD ORDERABLES Final Resul t [facility] [address] [facility] Department [place] [address] * Differential, auto (08/08/2024 9:27 AM DIRECTOR OF ANALYTICS) Neutrophil abs 6.1 1.5 - 6.5 K/cumm Comment:Testing performed by : [address] [address] Imm gran abs 0.1 0.0 - 0.1 K/cumm [facility] Comment:Testing performed by : [address] [address] Lymphocyte abs 2.0 0.8 - 3.3 K/cumm [facility] Comment:Testing performed by : [address] [address] Monocyte abs 0.6 0.2 - 0.8 K/cumm [facility] Comment:Testing performed by : [address] [address] Eosinophil abs 0.1 0.0 - 0.5 K/cumm [facility] Comment:Testing performed by : [address] [address] Basophil abs 0.0 0.0 - 0.1 K/cumm [facility] Comment:Testing performed by : [address] [address] Neutrophil pct 68.6 % [facility] Comment: Interpretive Data Percent cell count reference ranges are not reported, since discordance with absolute values may lead to misinterpretation of CBC data. Current Interpretive Data was last revised on 2017. Testing performed by: [address] [address] Imm gran pct 0.6 % [facility] Comment: Interpretive Data Percent cell count reference ranges are not reported, since discordance with absolute values may lead to misinterpretation of CBC data. Current Interpretive Data was last revised on 2017. Testing performed by: [address] [address] Lymphocyte pct 22.6 % [facility] Comment: Interpretive Data Percent cell count reference ranges are not reported, since discordance with absolute values may lead to misinterpretation of CBC data. Current Interpretive Data was last revised on 2017. Testing performed by: [address] [address] Monocyte pct 6.6 % [facility] Comment: Interpretive Data Percent cell count reference ranges are not reported, since discordance with absolute values may lead to misinterpretation of CBC data. Current Interpretive Data was last revised on 2017. Testing performed by: [address] [address] Eosinophil pct 1.3 % [facility] Comment: Interpretive Data Percent cell count reference ranges are not reported, since discordance with absolute values may lead to misinterpretation of CBC data. Current Interpretive Data was last revised on 2017. Testing performed by: [address] [address] Basophil pct 0.3 % [facility] Comment: Interpretive Data Percent cell count reference ranges are not reported, since discordance with absolute values may lead to misinterpretation of CBC data. Current Interpretive Data was last revised on 2017. Testing performed by: [address] [address] Blood 08/08/2024 9:27 AM DIRECTOR OF ANALYTICS 08/08/2024 9:32 AM DIRECTOR OF ANALYTICS us Iglesia Triplett MD LAB BLOOD ORDERABLES Final Resul t [facility] [address] [facility] Department [place] [address] * (ABNORMAL) Urinalysis reflex to microscopic and culture Urine (08/08/2024 9:27 AM DIRECTOR OF ANALYTICS) Color, ur Yellow Yellow Comment:Testing performed by : [address] [address] Clarity, ur Clear Clear [facility] Comment:Testing performed by : [address] [address] Specific gravity, ur 1.014 1.003 - 1.030 [facility] Comment:Testing performed by : [address], [place]., [address] pH, urine 6.0 [facility] Comment: Interpretive Data U rine pH is affected by diet, medications, systemic acid-base disturbances, and renal tubular function. pH may affect urinary stone formation. For example, urine pH below 6.0 may help reduce the tendency for calcium phosphate stones and pH greater than 6.0 may reduce the tendency for uric acid stone formation. Source: [place] [facility] Current Interpretive Data was last revised on 2017 Testing performed by: [address] [address] Protein, ur ql Negative Negative [facility] Comment:Testing performed by : [address] [address] Glucose, ur ql Negative Negative [facility] Comment:Testing performed by : [address] [address] Ketones, ur 1+(A) Negative [facility] Comment:Testing performed by : [address] [address] Bilirubin, ur Negative Negative [facility] Comment:Testing performed by : [address] [address] Blood, ur Negative Negative [facility] Comment:Testing performed by : [address] [address] Urobilinogen, ur <2.0 <2.0 mg/dL [facility] Comment:Testing performed by : [address] [address] Nitrite, ur Negative Negative [facility] Comment:Testing performed by : [address] [address] Leukocyte esterase, ur Negative Negative [facility] Comment:Testing performed by : [address] [address] UA reflex comment Reflex conditions for microscopic UA and culture not met. [facility] Comment:Testing performed by : [address] [address] Urine 08/08/2024 9:27 AM DIRECTOR OF ANALYTICS 08/08/2024 9:32 AM DIRECTOR OF ANALYTICS us Iglesia Triplett MD LAB MICROBIOLOGY - GENERAL ORDER ASTRID Final Result [facility] [address] [facility] Department [place] [address] * (ABNORMAL) CBC with auto differential (08/08/2024 9:27 AM DIRECTOR OF ANALYTICS) WBC 8.9 3.8 - 9.9 K/cumm Comment:Testing performed by : [address] [address] Hgb 15.3 13.0 - 17.5 g/dL [facility] Comment:Testing performed by : [address] [address] Hct 44.0 38.9 - 50.3 % [facility] Comment:Testing performed by : [address] [address] Plt 305 150 - 400 K/cumm [facility] Comment:Testing performed by : [address] [address] MPV 10.0 9.1 - 12.3 fL [facility] Comment:Testing performed by : [address] [address] RBC 5.68 4.30 - 5.80 M/cumm [facility] Comment:Testing performed by : [address] [address] MCV 77.5(L) 81.3 - 96.4 fL [facility] Comment:Testing performed by : [address] [address] MCH 26.9(L) 27.1 - 33.3 pg [facility] Comment:Testing performed by : [address] [place]., [address] MCHC 34.8 32.3 - 35.7 g/dL [facility] Comment:Testing performed by : [address] [address] RDW CV 14.2 11.1 - 14.9 % [facility] Comment:Testing performed by : [address], [address] RDW SD 38.9 35.7 - 48.1 fL [facility] Comment:Testing performed by : [address] [address] NRBC abs 0.00 0.00 - 0.01 K/cumm [facility] Comment:Testing performed by : [address], [address] Blood (Blood, Venous) 08/08/2024 9:27 AM DIRECTOR OF ANALYTICS 08/08/2024 9:32 AM DIRECTOR OF ANALYTICS us Iglesia Triplett MD LAB BLOOD ORDERABLES Final Resul t Performing Organization Address City/[facility] Co de Phone Number [address] [place], [place] [id number] * Lipase (08/08/2024 9:27 AM DIRECTOR OF ANALYTICS) Pathologist [facility] Lipase 16 10 - 99 Units/L Comment:Testing performed by : [address], [address] Blood (Blood, Venous) 08/08/2024 9:27 AM DIRECTOR OF ANALYTICS 08/08/2024 9:32 AM DIRECTOR OF ANALYTICS us Iglesia Triplett MD LAB BLOOD ORDERABLES Final Resul t Performing Organization Address City/[facility] Co de Phone Number [address] [place] [address] * Comprehensive metabolic panel (08/08/2024 9:27 AM DIRECTOR OF ANALYTICS) Sodium 137 135 - 145 mmol/L Comment:Testing performed by : [address] [place]., [address] Potassium, pl 3.7 3.3 - 4.9 mmol/L [facility] Comment:Testing performed by : [address] [address] Chloride 103 97 - 110 mmol/L [facility] Comment:Testing performed by : [address], [place]., [address] CO2 24 22 - 32 mmol/L [facility] Comment:Testing performed by : [address] [address] Anion gap 10 2 - 15 mmol/L [facility] Comment:Testing performed by : [address] [address] BUN 9 6 - 25 mg/dL [facility] Comment:Testing performed by : [address], [place]., [address] Creatinine 0.80 0.80 - 1.30 mg/dL [facility] Comment:Testing performed by : [address] [address] Glucose 91 70 - 199 mg/dL [facility] Comment: Interpretive Data Fasting glucose >/= 126 [...] was last revised 2022. Testing performed by: [address] [address] Calcium 9.7 8.5 - 10.3 mg/dL [facility] Comment:Testing performed by : [address] [address] Bilirubin, total 0.8 0.1 - 1.2 mg/dL [facility] Comment:Testing performed by : [address] [address] Protein, pl 7.3 6.5 - 8.5 g/dL [facility] Comment:Testing performed by : [facility], [address] [place] [address]., [address] Albumin 4.7 3.5 - 5.0 g/dL [facility] Comment:Testing performed by : [address] [address] Alk phos 62 40 - 130 Units/L [facility] Comment:Testing performed by : [address] [address] ALT 26 7 - 55 Units/L [facility] Comment:Testing performed by : [address] [address] AST 18 10 - 50 Units/L [facility] Comment:Testing performed by : [address] [address] Blood 08/08/2024 9:27 AM DIRECTOR OF ANALYTICS 08/08/2024 9:32 AM DIRECTOR OF ANALYTICS us Iglesia Triplett MD LAB BLOOD ORDERABLES Final Resul t [facility] Department [place] [address] * CT Abdomen Pelvis W Contrast (08/05/2024 6:19 PM DIRECTOR OF ANALYTICS) Anatomical Region Laterality Modality Body N/A Computed Tomogra phy 08/05/2024 6:26 PM DIRECTOR OF ANALYTICS Impressions 08/05/2024 6:30 PM DIRECTOR OF ANALYTICS No acute finding in the abdomen or pelvis. Dictated by: James Harrell MD PHD The radiology attending physician has personally reviewed this study, and had reviewed and/or edited this written report and agrees with it. Electronically signed by: Bishop Viramontes M.D. Narrative 08/05/2024 6:30 PM DIRECTOR OF ANALYTICS EXAMINATION: CT ABDOMEN PELVIS W CONTRAST HISTORY: [...] by: Bishop Viramontes M.D. Wesley Tompkins NP [facility] CT PROCEDURES Final Result * eGFR (08/05/2024 5:15 PM DIRECTOR OF ANALYTICS) [facility] eGFR >90 >=60 mL/min/1. 73 m2 Comment: [...] last reviewed 2021. Blood 08/05/2024 5:15 PM DIRECTOR OF ANALYTICS 08/05/2024 5:25 PM DIRECTOR OF ANALYTICS Isacc Carolina MD LAB BLOOD ORDERABLES F inal Result [facility] Department [place] [address] * (ABNORMAL) Differential, auto (08/05/2024 5:15 PM DIRECTOR OF ANALYTICS) [facility] Neutrophil abs 9.1(H) 1.5 - 6.5 K/cumm Imm gran abs 0.1 0.0 - 0.1 K/cumm [facility] Lymphocyte abs 1.7 0.8 - 3.3 K/cumm [facility] Monocyte abs 0.7 0.2 - 0.8 K/cumm [facility] Eosinophil abs 0.0 0.0 - 0.5 K/cumm [facility] Basophil abs 0.0 0.0 - 0.1 K/cumm [facility] Neutrophil pct 77.2 % [facility] Comment: Interpretive Data Percent cell count reference ranges are not reported, since discordance with absolute values may lead to misinterpretation of CBC data. Current Interpretive Data was last revised on 2017. Imm gran pct 1.2 % [facility] Comment: Interpretive Data Percent cell count reference ranges are not reported, since discordance with absolute values may lead to misinterpretation of CBC data. Current Interpretive Data was last revised on 2017. Lymphocyte pct 14.7 % [facility] Comment: Interpretive Data Percent cell count reference ranges are not reported, since discordance with absolute values may lead to misinterpretation of CBC data. Current Interpretive Data was last revised on 2017. Monocyte pct 6.3 % [facility] Comment: Interpretive Data Percent cell count reference ranges are not reported, since discordance with absolute values may lead to misinterpretation of CBC data. Current Interpretive Data was last revised on 2017. Eosinophil pct 0.3 % [facility] Comment: Interpretive Data Percent cell count reference ranges are not reported, since discordance with absolute values may lead to misinterpretation of CBC data. Current Interpretive Data was last revised on 2017. Basophil pct 0.3 % [facility] Comment: Interpretive Data Percent cell count reference ranges are not reported, since discordance with absolute values may lead to misinterpretation of CBC data. Current Interpretive Data was last revised on 2017. Blood 08/05/2024 5:15 PM DIRECTOR OF ANALYTICS 08/05/2024 5:25 PM DIRECTOR OF ANALYTICS Isacc Carolina MD LAB BLOOD ORDERABLES F inal Result [facility] Department of Laboratories [place], [place] [id number] * (ABNORMAL) Urinalysis reflex to microscopic (08/05/2024 5:15 PM DIRECTOR OF ANALYTICS) Color, ur Straw Yellow Clarity, ur Clear Clear [facility] Specific gravity, ur 1.017 1.003 - 1.030 [facility] pH, urine 7.5 [facility] Comment: Interpretive Data U rine pH is affected by diet, medications, systemic acid-base disturbances, and renal tubular function. pH may affect urinary stone formation. For example, urine pH below 6.0 may help reduce the tendency for calcium phosphate stones and pH greater than 6.0 may reduce the tendency for uric acid stone formation. Source: [facility] Current Interpretive Data was last revised on 2017 Protein, ur ql Trace Negative [facility] Glucose, ur ql Negative Negative [facility] Ketones, ur 2+(A) Negative [facility] Bilirubin, ur Negative Negative [facility] Blood, ur Negative Negative [facility] Urobilinogen, ur <2.0 <2.0 mg/dL [facility] Nitrite, ur Negative Negative [facility] Leukocyte esterase, ur Negative Negative [facility] UA reflex comment Reflex conditions for microscopic UA not met. [facility] Urine 08/05/2024 5:15 PM DIRECTOR OF ANALYTICS 08/05/2024 5:20 PM DIRECTOR OF ANALYTICS Isacc Carolina MD LAB URINE ORDERABLES F inal Result [facility] Department [place] [address] * (ABNORMAL) CBC with auto differential (08/05/2024 5:15 PM DIRECTOR OF ANALYTICS) WBC 11.8(H) 3.8 - 9.9 K/cumm Hgb 17.0 13.0 - 17.5 g/dL [facility] Hct 48.5 38.9 - 50.3 % [facility] Plt 384 150 - 400 K/cumm [facility] MPV 10.2 9.1 - 12.3 fL [facility] RBC 6.30(H) 4.30 - 5.80 M/cumm [facility] MCV 77.0(L) 81.3 - 96.4 fL [facility] MCH 27.0(L) 27.1 - 33.3 pg [facility] MCHC 35.1 32.3 - 35.7 g/dL [facility] RDW CV 14.3 11.1 - 14.9 % [facility] RDW SD 37.9 35.7 - 48.1 fL [facility] NRBC abs 0.00 0.00 - 0.01 K/cumm [facility] Blood (Blood, Venous) 08/05/2024 5:15 PM DIRECTOR OF ANALYTICS 08/05/2024 5:25 PM DIRECTOR OF ANALYTICS Isacc Carolina MD LAB BLOOD ORDERABLES F inal Result Performing Organization Address City/[facility] de Phone Number [facility] [place] [address] * Lipase (08/05/2024 5:15 PM DIRECTOR OF ANALYTICS) [facility] Lipase 20 10 - 99 Units/L Blood (Blood, Venous) 08/05/2024 5:15 PM DIRECTOR OF ANALYTICS 08/05/2024 5:25 PM DIRECTOR OF ANALYTICS Isacc Carolina MD LAB BLOOD ORDERABLES F inal Result Performing Organization Address [facility] de Phone Number [facility] Department [place] [address] * (ABNORMAL) Comprehensive metabolic panel (08/05/2024 5:15 PM DIRECTOR OF ANALYTICS) [facility] Sodium 140 135 - 145 mmol/L Potassium, pl 4.7 3.3 - 4.9 mmol/L [facility] Comment:Hemolyzed; Potassium value may be falsely elevated by as much as 0.6-1.0 mmol/L. Suggest redraw and reanalysis. Chloride 99 97 - 110 mmol/L [facility] CO2 27 22 - 32 mmol/L [facility] Anion gap 14 2 - 15 mmol/L [facility] BUN 12 6 - 25 mg/dL [facility] Creatinine 0.91 0.80 - 1.30 mg/dL [facility] Glucose 97 70 - 199 mg/dL [facility] Comment: Interpretive Data Fasting glucose >/= 126 [...] 2022. Calcium 10.5(H) 8.5 - 10.3 mg/dL [facility] Bilirubin, total 0.8 0.1 - 1.2 mg/dL [facility] Protein, pl 8.5 6.5 - 8.5 g/dL [facility] Albumin 5.3(H) 3.5 - 5.0 g/dL [facility] Alk phos 74 40 - 130 Units/L [facility] ALT 39 7 - 55 Units/L [facility] AST 35 10 - 50 Units/L [facility] Comment:Hemolyzed; result ma y be falsely elevated Blood 08/05/2024 5:15 PM DIRECTOR OF ANALYTICS 08/05/2024 5:25 PM DIRECTOR OF ANALYTICS Isacc Carolina MD LAB BLOOD ORDERABLES F inal Result [facility] Department [place] [address] from Last 3 Months Insurance [facility] Care Teams Model Artists' Relationship Specialty Start Date End Date Sivan Boyd PA [phone] [address] PCP - General Family Medicine 08/24/24
--- OUTSIDE RECORDS SUMMARY | 2024-09-07 00:52 | XMS_ITS | Data Portability ---
Author Organization [facility] MELODYRidge Darvin Jerome Address [address] [place] [address] Care Team Providers Care Snow Plow Tractor Operator Name Role Phone IRENE VACA Primary Care Provider Assessment Encounter Date Assessment Date Assessment LastModified by Organization Details LastModified Time 11/24/2023 11/24/2023 Sections of the HPI, exam and assessment completed by DAKOTAH Nam student and have been reviewed by me. I agree with the exam findings, assessment and plan except where specifically documented or amended. -Irene Vaca, [facility], [place] Not available 11/24/2023 14:25:25 Plan of Treatment Reminders Order Date Submit Date Provider Last Modified By Organization Details Last Modified Time Details Appointments ANY 30 2024 07:30A Benny SINGH PA-C Not available Not available Not available Lab culture, urine 2022 023 [facility], [address], [address], [place], [address], 07/25/2023 02:06:36 urinalysi s, dipstick 2022 023 [facility] In-Office Order, Internal Use Only DO Not Attach Compendium DO Not Attach Compendium, Do Not Delete/merge, [id number] 07/22/2023 16:55:15 H pylori urea breath test, co2 infrared 2023 024 [facility] (Lab), [address] [place], [address], 12/16/2023 16:16:13 H pylori urea breath test, co2 infrared 2023 024 [facility] (Lab), [address] [place], [address], 04/12/2024 16:13:40 H pylori urea breath test, co2 infrared 2024 025 [facility] (Lab), [address], [place], [address], 08/13/2024 16:10:01 Referral gastroent erologist referral 2023 024 [facility], [address], [place], [address], 12/13/2023 17:01:52 Procedures gastric emptying study (PROC) 2024 025 [facility]-[id number] [facility], [address] [facility], [place], [address], 08/14/2024 15:39:46 Surgeries None recorded. Imaging None recorded. Medication Orders pantopraz ole 40 mg tablet,de layed release [facility]23 [facility]24 [id number], [address], [place], [id number], 04/10/2024 15:34:55 Senna with Docusate Sodium 8.6 mg-50 mg tablet 2024 025 [id number], [address], [place], [place], [id number], 08/10/2024 12:09:10 lactulose 10 gram/15 mL oral solution 2024 025 [id number], [address], [place], [place], [id number], 08/10/2024 12:09:07 Patient TargetsNo targets recorded. Patient Instructions Encounter Date Encounter Id Patient Instructions Last Modified By Organization Details Last Modified Time 11/24/2023 [id number] A healthy lifestyle: care instructions rosa Not available 11/24/2023 19:49:15 12/14/2023 [id number] Patient to call with update in 3-5 weeks Not available 12/14/2023 12:26:11 08/10/2024 [id number] Will follow up after GES and with H pylori results [email or web address] Not available 08/10/2024 12:20:37 Reason for Referral Internet Architect Referral for Gastroesophageal reflux disease without esophagitis Referring Physician: Irene Vaca, Family Medicine, Encounter Date: 11/24/2023 Results Created Date Observation Date Name Description Value Unit Range Abnormal Flag Note LastModifiedBy Organization Detail LastModifiedTime 07/22/2007/25/2023 URINE CULTU RE, ROUTI NE urine culture, routine Final report Not Available [facility] ([facility]) [address] [place], [address], 07/25/2023 02:06:36 07/22/20 23 07/25/2023 URINE CULTU RE, ROUTI NE result 1 Commen t Cultu re shows less than 10,00 0 colon y formi ng units of bacte kourtney per quinton liter of urine . This colon y count is not gener ally consi dered to be clini jonathan signi fican t. Not Available [facility] ([facility]) [address] [place], [address], 07/25/2023 02:06:36 07/23/20 23 07/23/2023 urina lysis , dipst ick Leukocytes Negati ve Not Available In-Office Order Internal Use Only DO Not Attach Compendium DO Not Attach Compendium, Do Not Delete/merge, [id number] 07/22/2023 12:27:57 07/23/20 23 07/23/2023 urina lysis , dipst ick Nitrite negati ve Not Available In-Office Order Internal Use Only DO Not Attach Compendium DO Not Attach Compendium, Do Not Delete/merge, [id number] 07/22/2023 12:27:57 07/23/20 23 07/23/2023 urina lysis , dipst ick Urobilinogen .2 Not Available In-Of fice Order Internal Use Only DO Not Attach Compendium DO Not Attach Compendium, Do Not Delete/merge, [id number] 07/22/2023 12:27:57 07/23/20 23 07/23/2023 urina lysis , dipst ick Protein Negati ve Not Available In-Office Order Internal Use Only DO Not Attach Compendium DO Not Attach Compendium, Do Not Delete/merge, [id number] 07/22/2023 12:27:57 07/23/20 23 07/23/2023 urina lysis , dipst ick pH 6.0 Not Available In-Office Order Internal Use Only DO Not Attach Compendium DO Not Attach Compendium, Do Not Delete/merge, [id number] 07/22/2023 12:27:57 07/23/20 23 07/23/2023 urina lysis , dipst ick Blood Negati ve Not Available In-Office Order Internal Use Only DO Not Attach Compendium DO Not Attach Compendium, Do Not Delete/merge, [id number] 07/22/2023 12:27:57 07/23/20 23 07/23/2023 urina lysis , dipst ick Specific [place] 1.015 Not Available In-Off ice Order Internal Use Only DO Not Attach Compendium DO Not Attach Compendium, Do Not Delete/merge, [id number] 07/22/2023 12:27:57 07/23/20 23 07/23/2023 urina lysis , dipst ick Ketone Negati ve Not Available In-Office Order Internal Use Only DO Not Attach Compendium DO Not Attach Compendium, Do Not Delete/merge, [id number] 07/22/2023 12:27:57 07/23/20 23 07/23/2023 urina lysis , dipst ick Bilirubin Negati ve Not Available In-Office Order Internal Use Only DO Not Attach Compendium DO Not Attach Compendium, Do Not Delete/merge, [id number] 07/22/2023 12:27:57 07/23/20 23 07/23/2023 urina lysis , dipst ick Glucose Negati ve Not Available In-Office Order Internal Use Only DO Not Attach Compendium DO Not Attach Compendium, Do Not Delete/merge, [id number] 07/22/2023 12:27:57 07/23/20 23 07/23/2023 urina lysis , dipst ick Appearance Clear Not Available In-Offi ce Order Internal Use Only DO Not Attach Compendium DO Not Attach Compendium, Do Not Delete/merge, [id number] 07/22/2023 12:27:57 07/23/20 23 07/23/2023 urina lysis , dipst ick Color Dark Yellow Not Available In-Office Order Internal Use Only DO Not Attach Compendium DO Not Attach Compendium, Do Not Delete/merge, [id number] 07/22/2023 12:27:57 12/14/19 24 12/16/2023 H PYLOR I BREAT H TEST H pylori breath test *ABNO RMAL* Posit brenda [facility]: [facility] [address] [facility] [place] [address] 12[address] Lab Direc tor: Morgan arguello PhD, Phone : [phone] Not Available [facility] (Lab) [address] [place], [address], 12/16/2023 16:16:13 04/10/20 24 04/12/2024 H PYLOR I BREAT H TEST H pylori breath test Negat brenda [facility]fo rmed at: [facility] [address] [facility] [place] [address] Lab Direc tor: Morgan arguello PhD, Phone : [phone] Not Available [facility] (Lab) [address] [place], [address], 04/12/2024 16:13:40 08/10/19 25 08/13/2024 H PYLOR I BREAT H TEST H pylori breath test Negat brenda Perfo rmed at: 01 - [facility] [address] [facility] [address] [facility], [place] [address] Lab Direc tor: Morgan arguello PhD, Phone : [phone] Not Available [facility] (Lab) [address] [place], [address], 08/13/2024 16:10:00 08/23/19 25 08/24/2024 H. PYLOR I STOOL AG, EIA H. pylori stool Ag, EIA Negati ve negati ve [facility] at: [facility] [address] [place] [address] Lab Direc tor: Morgan arguello PhD, Phone : [phone] Not Available [facility] ([facility]) [address] [place], [address], 08/24/2024 11:12:22 08/23/19 25 08/24/2024 GIARD IA LAMBL IA AG, EIA giardia lamblia Ag, EIA Negat brenda Not Available [facility] (Lab) [address] [place], [address], 08/24/2024 14:10:53 08/23/19 25 08/24/2024 CRYPT OSPOR IDIUM EIA cryptosporid ium EIA Negat brenda Perfo rmed at: 01 - [facility] [address] [place] [address] Lab Direc tor: Morgan arguello PhD, Phone : [phone] Not Available [facility] (Lab) [address] [place], [address], 08/24/2024 14:10:53 08/23/19 25 08/24/2024 GIARD IA LAMBL IA AG, EIA giardia lamblia Ag, EIA Negat brenda Not Available [facility] (Lab) [address] [place], [address], 08/24/2024 14:10:55 08/23/19 25 08/24/2024 CRYPT OSPOR IDIUM EIA cryptosporid ium EIA Negat brenda Perfo rmed at: 01 - [facility] [address] [place] [address] Lab Direc tor: Morgan arguello PhD, Phone : [phone] Not Available [facility] (Lab) [address], [place], [address], 08/24/2024 14:10:55 08/24/19 25 08/22/2024 gastr ic empty ing study (PROC ) No observ ation record ed. BARCODE Not Available 2024 13:24:54 Result Notes None recorded. Problems Name Problem SNOMED Code Status Onset Date Resolution Date Notes Provider Name and Address Organization Details Recorded Time Morbid obesity 829841288 Active 2022 DAKOTAH FARIA Attn: Accountin g,[address] [facility], [place], [address], [facility] 3 10:38:22 Mixed anxiety and depressive disorder 585327196 Active 2022 DAKOTAH FARIA Attn: Accountin g,[address] [place], [address], [facility] 3 10:38:20 Essential hypertension 48533683 Active 2022 DAKOTAH FARIA Attn: Accountin g,[address] [facility], [place], [address], [facility] 3 10:38:19 Gastroesophage al reflux disease without esophagitis 890091959 Active 2023 DAKOTAH FARIA Attn: Accountin g,[address] [place], [address], [facility] 4 19:50:39 Notes:fatty liver disease..p re diabetic Problem Notes None recorded. Procedures Surgical History Date Name Laterality Status Provider Name and Address Organization Details Recorded Time Remove tonsils and adenoids completed Linda Singh MA ID - [facility] 09/11/2022 14:01:41 Imaging Results Imaging Date Name Status LastModified by Organiz ation Details LastModified Time 08/22/2024 gastric emptying study (PROC) completed BARCODE Information not available 08/24/2024 13:24:54 Procedure Notes None recorded. Medical Equipment None [...] Not Available Not Available Not Avai lable Stimulant Laxative Plus 8.6 mg-50 mg tablet TAKE 2 TABLETS BY MOUTH DAILY active Not Available Not Available No t Available Mounjaro 2.5 mg/0.5 mL subcutaneou s pen injector 11/12 completed Not Available Not Available Not Available Vitals Date Recorded Body height Body mass index (BMI) Body weight Oxygen saturation Oxygen saturation in Arterial blood by Pulse oximetry Heart rate Respiratory rate Systolic blood pressure Diastolic blood pressure Provider Name and Address Organization Details Last Updated DateTime 4 182.88 cm 39.7 kg/m2 580549. 56 g 97 % 97 % 86 /min 16 /min 143 mm[Hg] 80 mm[Hg] Linda Singh MA [facility] 4 14:01:38 Date Recorded Systolic blood pressure Diastolic blood pressure Provider Name and Address Organization Details Last Updated DateTime 11/24/2023 150 mm[Hg] 90 mm[Hg] DAKOTAH FARIA Attn: Accounting,[address] [place], [address], [facility] 11/24/2023 14:19:33 Date Recorded Body height Body mass index (BMI) Body weight Body temperature Heart rate Systolic blood pressure Diastolic blood pressure Provider Name and Address Organization Details Last Updated DateTime 4 182.88 cm 39.7 kg/m2 488833. 56 g 98.7 [degF] 67 /min 136 mm[Hg] 74 mm[Hg] Alexandra Brock MA [facility] 4 12:07:55 Date Recorded Body height Body mass index (BMI) Body weight Body temperature Heart rate Oxygen saturation Oxygen saturation in Arterial blood by Pulse oximetry Systolic blood pressure Diastolic blood pressure Provider Name and Address Organization Details Last Updated DateTime 4 182.88 cm 39.2 kg/m2 468982. 84 g 97.3 [degF] 79 /min 99 % 99 % 156 mm[Hg] 99 mm[Hg] Jeanie Alvarado [facility] 4 15:29:40 Date Recorded Body height Body mass index (BMI) Body weight Heart rate Respiratory rate Body temperature Pain severity - 0-10 verbal numeric rating [Score] - Reported Oxygen saturation Oxygen saturation in Arterial blood by Pulse oximetry Systolic blood pressure Diastolic blood pressure Provider Name and Address Organization Details Last Updated DateTime 5 182.88 cm 36.6 kg/m2 623477. 58 g 68 /min 18 /min 97.5 [degF] 0 99 % 99 % 120 mm[Hg] 77 mm[Hg] Rimma Marie MA [facility] 5 11:44:05 Social History Question Answer Notes LastModified by Organizat ion Details LastModified Time Tobacco Smoking Status Never Smoker Linda Singh MA [facility], [facility] 09/11/2022 14:01:23 What Is Your Level Of Alcohol Consumption? Occasional Information not available 09/11/2022 What Is Your Level Of Caffeine Consumption? Occasional [email or web address] Information not available 09/11/2022 In The 14 Days Before Symptom Onset, Have You Had Close Contact With A Laboratory-confir med COVID-19 While That Case Was Ill? No [email or web address] Information not available 09/11/2022 In The 14 Days Before Symptom Onset, Have You Had Close Contact With A Person Who Is Under Investigation For COVID-19 While That Person Was Ill? No Information not available 09/11/2022 Have You Been To An Area Known To Be High Risk For COVID-19? No [email or web address] Information not available 09/11/2022 Do You Or Have You Ever Used E-cigarettes Or Vape? Current User Of Electronic Cigarettes [email or web address] Information not available 11/24/2023 Are There Any Guns Present In Your Home? No [email or web address] Information not available 09/11/2022 What Was The Date Of Your Most Recent Tobacco Screening? 04/10/2024 Information not available 04/10/2024 Do You Have Smoke And Carbon Monoxide Detectors In Your Home? Yes [email or web address] Information not available 09/11/2022 Are You Passively Exposed To Smoke? No [email or web address] Information no t available 09/11/2022 Do You Use Any Illicit Or Recreational Drugs? No [email or web address] Information not available 09/11/2022 Do You Use Sunscreen Routinely? No Information not available 09/11/2022 Has Tobacco Cessation Counseling Been Provided? Yes [email or web address] Information not available 09/11/2022 On What Date Was Tobacco Cessation Counseling Provided? 04/10/2024 Information not available 04/10/2024 Do You Or Have You Ever Used Any Other Forms Of Tobacco Or Nicotine? Yes Information not available 11/24/2023 Sex: Male Functional Status None recorded. Mental Status None recorded. Family History Relationship Description Onset Age of this Age Resolved Age Notes LastModified by Organization Details LastModified Time Paternal Grandfather Hypertensive disorder [email or web address] Not available 2022 14:00:53 Paternal Grandmother Diabetes mellitus [email or web address] Not available 2022 14:01:01 Medical History Condition Response Coronary Artery Disease N Other N Atrial Fibrillation N High Blood Pressure N Kidney or Bladder Problems N Thyroid Problems N GI Problems N Depression N COPD N Blood Clots N Skin Problems N Eating Disorder N Anemia N Heart Attack (ND) N Diabetes N Anxiety Disorder N Muscle, [...] SNOMED-CT Code Diagnosis ICD10 Code Diagnosis Note [id number] DAKOTAH FARIA [facility] [address] [place] [address] 09/11/2022 13:54:07 09/11/2022 14:47:51 Mixed anxiety and depressive disorder 914916441 F41.8 PHQ 5GAD 6discussed medication and counseling pt would like to try anxiety medication , aware of ADRf/u in 1 mo Essential hypertension 47389728 I10 BP 150/110, 160/114too k at [facility], 150/100asx start lisinopril 40advised to check BP at home, goal BP <130/80, f/u with BP log in 1 wk Morbid obesity 641067372 E66.01 BMI 46.4pre diabetic in the tried diets and exercising w/o successdif ficulty losing weightwant s to try mounjaro with discount card, advised pt of ADRa1c 5.0 Nasal congestion 6250919 0 R09.81 tried OTC allergy meds w/o relieftria l singulairi f no relief will refer to byproducts operator [id number] DAKOTAH FARIA [facility] [address] [place] [address] 11/16/2022 12:19:06 11/16/2022 13:47:30 Morbid obesity 339591193 E66.01 11/16/22:lo st 12 lbs since last visit 09/11/22:BM I 46.4pre diabetic in the tried diets and exercising w/o successdif ficulty losing weightwant s to try mounjaro with discount card, advised pt of ADRa1c 5.0 Mixed anxi ety and depressive disorder 026050731 F41.8 11/16/22:PH Q 11GAD 13mild improvemen t with buspirone, would like to increase dosetrial buspirone 15 mg BIDf/u if sx do not improve with increased doserefer to counseling at [facility] 09/11/22:PH Q 5GAD 6discussed medication and counseling pt would like to try anxiety medication , aware of ADRf/u in 1 mo Essential hypertension 10255648 I10 11/16/22:BP today 132/86not taking lisinopril , checking BP at home 110s-130s/ 70-80s 09/11/22:BP 150/110, 160/114too k at [facility], 150/100asx start lisinopril 40advised to check BP at home, goal BP <130/80, f/u with BP log in 1 wk [id number] DAKOTAH FARIA [facility] [address] [place] [address] 04/19/2023 12:29:48 04/19/2023 13:22:39 Pharyngitis 759601152 J02.9 strep negative Productive cough-yellow sputum 478199959 R09.3 COVID and RSV negative Bacterial upper respiratory infection 337128445 A49.9 COVID 2 wks ago with symptoms [...] or on SSRI antidepres sants. Allergic rhinitis 118296 04 J30.9 tried singulairo n zyrtec and flonase PRN w/o reliefrefe r to byproducts operator [id number] Lynnette Ibanez CMA [facility] [address] [place] [address] 07/22/2023 12:01:00 07/28/2023 08:24:46 Dysuria 47351480 R30.0 [id number] DAKOTAH FARIA [facility] [address] [place] [address] 11/24/2023 13:50:33 11/24/2023 14:25:41 Essential hypertension 83085102 I10 11/24/23: BP 143/80, 150/90stat es that BP was normal in EDadvised to check BP at home, goal BP <130/80, f/u with BP log in 1 wk 11/16/22:BP today 132/86not taking lisinopril , checking BP at home 110s-130s/ 70-80s 09/11/22:BP 150/110, 160/114too k at [facility], 150/100asx start lisinopril 40advised to check BP at home, goal BP <130/80, f/u with BP log in 1 wk Gastroesop hageal reflux disease without esophagitis 101949192 K21.9 belching and heart burn x3 days, took TUMS w/ reliefc/o sharp, stabbing epigastric pain x5 daysadmits to eating spicy foods frequently went to ER and was given pantoprazo le, pain has been controlled continue pantoprazo le 40pt requesting GI referral Depression screening 171 649018 Z13.31 0 Obesity 995645201 E66.9 discussed increasing exercise and healthier food options, high protein, low fat dietpt has lost 42 lbs since 04/2023 [id number] ADELITA CLAIRE [facility] [address] [place] [address] 12/14/2023 11:48:43 12/16/2023 11:31:01 Excessive belching 285631226 R14.2 Gastritis 7406873 K29.70 No epigastric or LUQ tenderness on today's exam. Discussed EGD to eval for possible ulceration . Patient has elected to defer at this time. Will rule out H. pylori today. Patient to continue consistent pantoprazo le daily x 4-6 weeks. If no improvemen t, can reconsider EGD evaluation . Patient is in agreement with this plan. [id number] [facility] [address] [place] [address] 04/10/2024 15:17:07 04/12/2024 09:52:11 Excessive belching 093242501 R14.2 await H pylori results and continue daily PPI Gastritis 5334228 K29.70 Patient to continue consistent pantoprazo le daily x 4-6 weeks. If no improvemen t, can reconsider EGD evaluation . History of Helicobacter pylori infection 9732434218 8325321 Z86.19 completed clarithrom ycin triple therapy in December 2023.Eradi cation testing [id number] [facility] [address] [place] [address] 08/10/2024 11:25:05 08/10/2024 14:40:54 Constipation 36491298 K59.00 Minimal relief with docusate sodium 100 mg BID with miralax. Patient to try either senna with docusate or lactulose. Both prescripti ons sent to pharmacy to see which option is more affordable via patient's insurance. Delayed ga stric emptying 333161328 K30 likely 2/2 ozempic use. Discussed with patient that there's a small percentage some patient's experience irreversib le symptoms. History of Helicobacter pylori infection 4752508396 1730059 Z86.19 completed clarithrom ycin triple therapy in [...] Barrientos Member ID Guarantor Name 07/22/2023 1 [facility] ON OR AFTER 01/30/21 (MEDICAID REPLACEMENT - HMO) Erick Triana [id number] Erick Triana 11/24/2023 1 [facility] ON OR AFTER 01/30/21 (MEDICAID REPLACEMENT - HMO) Erick Triana [id number] Erick Triana 12/14/2023 1 [facility] ON OR AFTER 01/30/21 (MEDICAID REPLACEMENT - HMO) Erick Triana [id number] Erick Triana 04/10/2024 1 [facility] ON OR AFTER 01/30/21 (MEDICAID REPLACEMENT - HMO) Erick Triana [id number] Erick Triana 08/10/2024 1 [facility] ON OR AFTER 01/30/21 (MEDICAID REPLACEMENT - HMO) Erick Triana [id number] Erick Triana Notes Date Note Type Note Provider Name [...] diarrhea, constipation. DAKOTAH FARIA Attn: Accounting,[address] [facility], [place], [address], [facility] 11/24/2023 19:50:51 12/14/2023 text/html Patient presents today [...] having eaten. ADELITA CLAIRE [address], [place], [address], [facility] 12/14/2023 12:26:21 04/10/2024 text/html Patient presents today for follow up on H pylori infection. Was treated with triple therapy in December 2023. Symptoms have improved some, but still has a lot of belching. Rarely drinks alcohol or carbonated beverages. ADELITA CLAIRE [address], [place], [address], [facility] 04/10/2024 15:48:09 08/10/2024 text/html Patient presents today [...] for recurrent H pylori infection. ADELITA CLAIRE [address], [place], [address], [facility] 08/10/2024 12:20:52
--- OUTSIDE RECORDS SUMMARY | 2024-09-07 00:52 | XMS_ITS | Referral Summary ---
Author Organization [facility] Address [address] [place] [address] Care Team Providers Care Vegetable Harvest Worker Name Role Phone Godfrey Curry MD Primary Care Provider [phone] Dipika Reddy MD Unavailable [phone] Source Comments [facility],non-owned Affiliates and Associated Physician Practices is amultiple site organization consisting of ambulatory clinics and hospital sitesin [place], [place], [place] and [place]. This disclosure is being madepursuant to the Care Everywhere program and may not contain all information available regarding this patient. Last updated 18.[facility] Allergies No known active allergies Medications [...] fluticasone propionate (FLONASE) 50 MCG/ACT nasal spray Pettibone 1 spray into each nostril once daily [...] 07/12/2015 Assessment & Plan (07/12/2015 5:00 PM BUSINESS SERVICES INTERN): Assessment: Has had 4 days of cough, [...] management clinic if [place] - Also may be text for teens eligible if still living in [facility] in a year Allergic rhinitis 05/19/2011 Assessment [...] Reactive Non Reactive 11/12/2017 11:57 AM CDT [facility] HBsAg Non Reactive Non Reactive 11/12/2017 11:57 AM CDT [facility] HBc Antibody IgM Non Reactive Non Reactive 11/12/2017 11:57 AM T [facility] HCV Antibody Screen Non Reactive Non Reactive 11/12/2017 11:57 AM T [facility] HCV S/C Ratio 0.05 0.00 - 0.79 11/12/2017 11:57 AM T [facility] Comment: Toythl-ri-rpconq ratio (S/CO) <0.80: Non Reactive Blood BLOOD SPECIMEN / Unknown Lab Venipuncture / Unknown 11/12/2017 9:57 AM CDT 11/12/2017 10:52 AM CDT Narrative [facility] - 11/12/2017 11:57 AM CDT Non Reactive - Antibodies to Hepatitis C virus (HCV) were not detected, result does not exclude early acute HCV infection. Jose Rafael Thompson MD LAB - CHEMISTRY HILDA MARIO [facility] Organization Address City/State/ZIP Co de Phone Number [facility] [place] [address] from Last 3 Months or Most Recently Relevant to Health Maintenance Care Teams Vegetable Harvest Worker Relationship Specialty Start Date End Date Godfrey Curry MD [address] [place] [phone] PCP - General Pediatrics 05/01/14 Dipika Reddy MD [facility] [place] [address] Resident Student Resident 11/27/15
--- OUTSIDE RECORDS SUMMARY | 2024-09-07 00:52 | XMS_ITS | Encounter Summary ---
Author Organization [facility] Address [address] [place] [address] Care Team Providers Care Stone Sandblaster Name Role Phone Sivan Boyd Primary Care Provider + Reason for Referral * Cardiology (Routine) - Closed Specialty Diagnoses / Procedures Referred By Humzaac t Referred To Contact Diagnoses Bradycardia Procedures 24 HR Holter Monitor Sivan Boyd PA [address] [address] Phone: tel: fax: [address] [phone] Referral ID Status Reason Start Date Expiration Date Visits Re quested Visits Authorized [id number] Closed 08/24/2024 09/23/2025 1 1 AL NUTRITIONIST Reason for Visit * Cardiology (Routine) - Closed Specialty Diagnoses / Procedures Referred By Contac t Referred To Contact Diagnoses Bradycardia Procedures 24 HR Holter Monitor Sivan Boyd PA [address] [address] Phone: tel: fax: [address] [phone] Referral ID Status Reason Start Date Expiration Date Visits Re quested Visits Authorized [id number] Closed 08/24/2024 09/23/2025 1 1 Encounter Details Date Type Department Care Team (Latest Contact Info) Description 09/05/2024 10:54 AM ANIMAL NUTRITIONIST - 09/05/2024 11:59 PM ANIMAL NUTRITIONIST Hospital Encounter [facility] Cardiac Testing [facility] [place] [address] Bradycardia Discharge Disposition: Discharge to home or [...] on file Legal Sex Male 12:57 PM ANIMAL NUTRITIONIST Gender Identity Not on file Sexual Orientation [...] Discharge Disposition Disposition Code Departure Means Destination Discharge to home or self care documented in this encounter Plan of Treatment Pending Results Name Type Priority Associated Diagnoses Date /Time 24 HR Holter Monitor Cardiac Services Routine Bradycardia 09/05/2024 11:09 AM ANIMAL NUTRITIONIST Scheduled Orders Name Type Priority Associated Diagnoses Orde r Schedule 24 HR Holter Monitor Cardiac Services Routine Bradycardia Once for 1 Occurrences starting 09/05/2024 until 09/05/2024 documented as of this encounter Visit Diagnoses Diagnosis Bradycardia Other specified cardiac dysrhythmias documented in this encounter Care Teams Stone Sandblaster Relationship Specialty Start Date End Date Sivan Boyd PA [address] [facility] [address] [place] [address] PCP - General Family Medicine 08/24/24 documented as of this encounter
--- OUTSIDE RECORDS SUMMARY | 2024-09-07 00:52 | XMS_ITS | Clinical Summary ---
Author Organization [facility] Address [facility] [place] [address] Care Team Providers Care Technical Services Librarian Name Role Phone None, Provider MD Primary [...] needed for Nausea. 7 tablet 07/28/2024 Active Encounters Date Type Department Care Team Description 08/22/2024 7:17 AM CHARTERED FINANCIAL ANALYST - 08/22/2024 11:59 PM [facility] Hospital Encounter [facility] [place] [address] Adelita Goldstein PA-C Discharge Disposition: Home or Self Care (Routine Discharge) 08/22/2024 Travel 07/28/2024 11:56 PM CHARTERED FINANCIAL ANALYST - 07/29/2024 12:27 AM CHARTERED FINANCIAL ANALYST Emergency [facility] [place] [address] Unique Cardenas PA Dizziness Discharge Disposition: Home or Self Care (Routine Discharge) 07/28/2024 4:21 PM CHARTERED FINANCIAL ANALYST - 07/28/2024 7:32 PM [facility] Emergency [facility] [place] [address] Dhruv Nettles MD Nausea Discharge Disposition: Home or Self Care (Routine Discharge) 07/28/2024 Travel from Last 3 Months Social History Tobacco Use Types Packs/Day Years Used Date Smoking Tobacco: Never Smokeless Tobacco: Never Alcohol Use Standard Drinks/Week Comments Not Currently 0 (1 standard drink = 0.6 oz pur e alcohol) Sex and Gender Information Value Date Recorded Sex Assigned at Male 08/22/2024 7:16 AM CHARTERED FINANCIAL ANALYST Legal Sex Male 8:11 PM CDT Gender Identity Not on file Sexual Orientation Not on file Last Filed Vital Signs Vital Sign Reading Time Taken Comments Blood Pressure 172/97 07/28/2024 11:49 PM CHARTERED FINANCIAL ANALYST Pulse 85 07/28/2024 11:49 PM CHARTERED FINANCIAL ANALYST Temperature 36.7 C (98 F) 07/28/2024 11:49 PM CHARTERED FINANCIAL ANALYST Respiratory Rate 16 07/28/2024 11:49 PM CHARTERED FINANCIAL ANALYST Oxygen Saturation 99% 07/28/2024 11:49 PM CHARTERED FINANCIAL ANALYST Inhaled Oxygen Concentration - - Weight 122.5 kg (270 lb) 07/28/2024 11:49 PM CHARTERED FINANCIAL ANALYST Height 180.3 cm (5' 11 ) 07/28/2024 11:49 PM CHARTERED FINANCIAL ANALYST Body Mass Index 37.66 07/28/2024 11:49 PM CHARTERED FINANCIAL ANALYST Plan of Treatment Health Maintenance Due Date [...] Meningococcal Vaccine Completed 05/24/2019 , 07/24/2011, 07/24/2011 Meningococcal B Vaccine Aged Out No l onger eligible based on patient's age to complete this topic RSV Immunizations Under 20 Months Aged Out No longer eligible based on patient's age to complete this topic Procedures Procedure Name Priority Date/Time Associated Diagnosis Comments NM GASTRIC EMPTYING STUDY Routine 08/22/2024 10:44 AM CHARTERED FINANCIAL ANALYST Functional dyspepsia TSH W/REFLEX STAT 07/28/2024 4:24 PM CHARTERED FINANCIAL ANALYST MAGNESIUM STAT 07/28/2024 4:24 PM CHARTERED FINANCIAL ANALYST COMPREHENSIVE METABOLIC PANEL STAT 07/28/2024 4:24 PM CHARTERED FINANCIAL ANALYST CBC W/DIFF AUTOMATED STAT 07/28/2024 4:24 PM CHARTERED FINANCIAL ANALYST from Last 3 Months Results * NM GASTRIC EMPTYING STUDY (08/22/2024 10:44 AM CHARTERED FINANCIAL ANALYST) Anatomical Region Laterality Modality Abdomen Nuclear Medicine 08/22/2024 11:1 7 AM CHARTERED FINANCIAL ANALYST Impressions 08/22/2024 11:20 AM CHARTERED FINANCIAL ANALYST IMPRESSION: Normal gastric emptying study. Referred By: ADELITA GOLDSTEIN Interpreted By: Gino Morataya MD, 08/22/2024 11:17 AM Narrative 08/22/2024 11:20 AM CHARTERED FINANCIAL ANALYST [facility] [address] [place], [place] [address] Gastric Emptying Scintigraphy Exam date: 08/22/2024. Indications: 24-year-old male with functional dyspepsia and abdominal pain. Evaluate rate of gastric emptying. Radiopharmaceutical: 1.1 mCi Tc-99m sulfur colloid incorporated into 2 scrambled eggs, along with 2 slices toast with jelly, and 4 ounces water PO. Comparison: -CT abdomen and pelvis with contrast dated 11/20/2023. Technique: After oral ingestion of the radiolabeled meal, immediate, 1, 2, and 3-hour delayed anterior and posterior abdominal images were obtained. Findings: There is normal emptying of gastric contents into the intestine. Percent Emptying: * Time: 59 minutes, percent emptyin%; (1hr norm =>10%, =<70%). * Time: 117 minutes, percent emptyin%; (2hr =>40%). * Time: 177 minutes, percent emptyin%; (3hr =>70%). Procedure Note Gino Morataya MD - 08/22/2024 [facility] [address] [place], [place] [address] Gastric Emptying Scintigraphy Exam date: 08/22/2024. Indications: 24-year-old male with functional dyspepsia and abdominal pain. Evaluaterate of gastric emptying. Radiopharmaceutical: 1.1 mCi Tc-99m sulfur colloid incorporated into 2 scrambled eggs, alongwith 2 slices toast with jelly, and 4 ounces water PO. Comparison: -CT abdomen and pelvis with contrast dated 11/20/2023. Technique: After oral ingestion of the radiolabeled meal, immediate, 1, 2, and 3- hourdelayed anterior and posterior abdominal images were obtained. Findings: There is normal emptying of gastric contents into the intestine. Percent Emptying: * Time: 59 minutes, percent emptyin%; (1hr norm =>10%, =<70%). * Time: 117 minutes, percent emptyin%; (2hr =>40%). * Time: 177 minutes, percent emptyin%; (3hr =>70%). IMPRESSION: Normal gastric emptying study. Referred By: ADELITA GOLDSTEIN Interpreted By: Gino Morataya MD, 08/22/2024 11:17 AM us Adelita Goldstein PA-C [facility] Final Re sult * TSH W/REFLEX (07/28/2024 4:24 PM CHARTERED FINANCIAL ANALYST) TSH 0.836 0.358 - 3.74 uIU/ML 07/28/2024 5:16 PM CHARTERED FINANCIAL ANALYST [facility] Comment: HIGH DOSES OF BIOTIN MAY INTERFERE WITH THIS TEST RESULT. CORRELATION TO CLINICAL HISTORY AND PRESENTATION RECOMMENDED. FREE T4 NOT INDICATED 07/28/2024 4:24 PM CHARTERED FINANCIAL ANALYST us [facility] Final Result [facility] [address] [place] [address], [place] [phone] * (ABNORMAL) COMPREHENSIVE METABOLIC PANEL (07/28/2024 4:24 PM CHARTERED FINANCIAL ANALYST) GLUCOSE 108(H) 70 - 99 MG/DL 07/28/2024 5:16 PM [facility] BUN 9 7 - 18 MG/DL 07/28/2024 5:16 PM [facility] CREATININE S/P/B 0.94 0.7 - 1.3 MG/DL 07/28/2024 5:16 PM [facility] SODIUM S/P/B 135(L) 136 - 145 MMOL/L 07/28/2024 5:16 PM [facility] POTASSIUM S/P/B 3.6 3.5 - 5.1 MMOL/L 07/28/2024 5:16 PM [facility] CHLORIDE S/P/B 103 97 - 115 MMOL/L 07/28/2024 5:16 PM CHARTERED FINANCIAL ANALYST [facility] CO2 25.9 21 - 32 MMOL/L 07/28/2024 5:16 PM [facility] CALCIUM S/P/B 9.5 8.5 - 10.1 MG/DL 07/28/2024 5:16 PM [facility] BILIRUBIN TOTAL S/P/B 0.7 0.2 - 1.2 MG/DL 07/28/2024 5:16 PM [facility] Comment: THIS ASSAY IS NOT RECOMMENDED FOR PATIENTS UNDERGOING TREATMENT WITH ELTROMBOPAG DUE TO THE POTENTIAL FOR FALSELY ELEVATED RESULTS. TOTAL PROTEIN S/P/B 8.2 6.4 - 8.2 G/DL 07/28/2024 5:16 PM CHARTERED FINANCIAL ANALYST [facility] ALBUMIN S/P/B 4.4 3.4 - 5.0 G/DL 07/28/2024 5:16 PM CHARTERED FINANCIAL ANALYST [facility] AST 24 15 - 37 U/L 07/28/2024 5:16 PM [facility] ALT 47 16 - 60 U/L 07/28/2024 5:16 PM [facility] ALKALINE PHOSPHATASE S/P/B 60 50 - 136 U/L 07/28/2024 5:16 PM [facility] ANION GAP 6.1 2 - 10 MMOL/L 07/28/2024 5:16 PM [facility] BUN CREATININE RATIO 9.6 6 - 26 07/28/2024 5:16 PM [facility] A/G RATIO 1.2 1.0 - 2.0 RATIO 07/28/2024 5:16 PM [facility] GFR ESTIMATE >90 >90 ML/MIN/1.7 3 M2 07/28/2024 5:16 PM [facility] Comment: NOTE: eGFR is not calculated for patients <18 years of age or gender unknown. This is an estimated GFR calculation using the new CKD EPI creatinine equation without race and so does not require a correction factor for race. This estimated GFR should not be used for calculating drug doses. 07/28/2024 4:24 PM CHARTERED FINANCIAL ANALYST [facility] Final Result [facility] [address] [place] [address], [place] [phone] * (ABNORMAL) CBC W/DIFF AUTOMATED (07/28/2024 4:24 PM CHARTERED FINANCIAL ANALYST) [facility] WBC 8.11 4.5 - 11.0 x10'3/uL 07/28/2024 4:42 PM CHARTERED FINANCIAL ANALYST [facility] RBC 6.03 4.70 - 6.10 x10'6/uL 07/28/2024 4:42 PM [facility] HGB 16.1 14.0 - 18.0 G/DL 07/28/2024 4:42 PM [facility] HCT 46.2 43.0 - 54.0 % 07/28/2024 4:42 PM [facility] MCV 76.6(L) 80.0 - 94.0 FL 07/28/2024 4:42 PM [facility] MCH 26.7(L) 27.0 - 31.0 PG 07/28/2024 4:42 PM [facility] MCHC 34.8 32.0 - 36.0 G/DL 07/28/2024 4:42 PM [facility] RDW 14.1 11.5 - 14.5 % 07/28/2024 4:42 PM [facility] PLT 305 130 - 400 x10'3/uL 07/28/2024 4:42 PM [facility] MPV 9.9 9.3 - 12.2 FL 07/28/2024 4:42 PM [facility] DIFFERENTIAL TYPE AUTOMATED DIFFERENTIAL 07/28/2024 4:42 PM [facility] NEUTROPHILS % 71.6 % 07/28/2024 4:42 PM [facility] LYMPHOCYTES % 20.8 % 07/28/2024 4:42 PM CHARTERED FINANCIAL ANALYST [facility] MONOCYTES % 5.4 % 07/28/2024 4:42 PM CHARTERED FINANCIAL ANALYST [facility] EOSINOPHILS 1.2 % 07/28/2024 4:42 PM CHARTERED FINANCIAL ANALYST [facility] BASOPHILS 0.5 % 07/28/2024 4:42 PM CHARTERED FINANCIAL ANALYST [facility] IMMATURE GRANS % 0.5 % 07/28/20 4:42 PM CHARTERED FINANCIAL ANALYST [facility] ABS. NEUTROPHILS 5.80 1.80 - 7.70 x10'3/uL 07/28/2024 4:42 PM CHARTERED FINANCIAL ANALYST [facility] ABS. LYMPHOCYTES 1.69 1.00 - 4.80 x10'3/uL 07/28/2024 4:42 PM CHARTERED FINANCIAL ANALYST [facility] ABS. MONOCYTES 0.44 0.30 - 0.82 x10'3/uL 07/28/2024 4:42 PM CHARTERED FINANCIAL ANALYST [facility] ABS. EOSINOPHILS 0.10 0.04 - 0.54 x10'3/uL 07/28/2024 4:42 PM CHARTERED FINANCIAL ANALYST [facility] ABS. BASOPHILS 0.04 0.01 - 0.08 x10'3/uL 07/28/2024 4:42 PM CHARTERED FINANCIAL ANALYST [facility] ABS. IMMATURE GRANULOCYTES 0.04 0.00 - 0.49 x10'3/uL 07/28/2024 4:42 PM CHARTERED FINANCIAL ANALYST [facility] 07/28/2024 4:24 PM CHARTERED FINANCIAL ANALYST us [facility] Final Result [facility] [address] [place] [address], * MAGNESIUM (07/28/2024 4:24 PM CHARTERED FINANCIAL ANALYST) MAGNESIUM 2.1 1.8 - 2.4 MG/DL 07/28/2024 5:16 PM CHARTERED FINANCIAL ANALYST [facility] 07/28/2024 4:24 PM CHARTERED FINANCIAL ANALYST [facility] Final Result [facility] [address] [place] [address], [place] [phone] from Last 3 Months Insurance [place] Care Teams Technical Services Librarian Relationship Specialty Start Date End Date None, Provider, PCP - General 09/19/19
--- OUTSIDE RECORDS SUMMARY | 2024-09-07 00:52 | XMS_ITS | Patient Health Summary ---
Author Organization [facility] Address [address] [address] Care Team Providers Care Human Service Coordinator Name Role Phone Godfrey Curry MD Primary Care Provider [phone] Dipika Reddy MD Unavailable [phone] Note from [facility],non-owned Affiliates and Associated Physician Practices is amultiple site organization consisting of ambulatory clinics and hospital sitesin [place], [place], [place] and [place]. This disclosure is being madepursuant to the Care Everywhere program and may not contain all information available regarding this patient. Last updated 18.[facility] Allergies No known active allergies* [...] propionate (FLONASE) 50 MCG/ACT nasal spray(Started 05/19/2018) [place] 1 spray into each nostril once daily [...] BLOOD(Performed 11/12/2017) Performed for Liver disorder * [id number] BLOOD(Performed 11/12/2017) Performed for Liver disorder * [...] (Bezet) 424 ms CG MUSE Calculated P [place] 23 degrees CG MUSE Calculated R [place] -17 degrees CG MUSE Calculated T [place] 22 degrees CG MUSE Interpretation EKG Normal sinus rhythm with sinus arrhythmia Leftward axis No previous ECGs available Confirmed by MICHELET FABIAN ([id number]) on 11/01/2018 12:17:17 PM CG MUSE 10/25/2018 [...] - 16.0 gm/dL 01/20/2018 3:10 PM CDT [facility] Hematocrit 41.5 37.0 - 49.0 % 01/20/2018 3:10 PM CDT [facility] Blood BLOOD SPECIMEN / Unknown Venipuncture / Unknown 01/20/2018 2:51 PM CDT 01/20/2018 3:03 PM CDT Jose Rafael Thompson MD LAB - HEMATOLOGY ORD ERABLES [facility] [address] [place] [address] * US GUIDE NEEDLE PLACEMENT (01/20/2018 11:12 AM CDT) Narrative [facility] - 01/21/2018 9:35 AM CDT No Dictation. Jose Rafael Thompson MD US ORDERABLES [facility] [address] [place] [address] * VIRAL CULTURE MISC (01/20/2018 10:58 AM CDT) Viral Culture No virus isolated. 01/28/2018 8:41 AM CDT [facility] ([facility]) Microbiology NEEDLE BIOPSY OF LIVER / Unknown Collection / Unknown 01/20/2018 10:58 AM CDT 01/20/2018 11:14 AM CDT Narrative [facility] ([facility]) - 01/28/2018 8:41 AM CDT Performed at: - [facility] [id number] Central Supply Nurse: Wesley Jose MD, Phone: [phone] Jose Rafael Thompson MD LAB - MICROBIOLOGY O RDERABLES [facility] ([facility]) [address] [place] [address] * GROSS + MICRO EXAM (STL) (01/20/2018 10:36 AM CDT) Case Report Surgical Pathology Report Case: [id number] Authorizing Provider: Jose Rafael Thompson MD Collected: 01/20/2018 10:36 AM Ordering Location: ENDOSCOPY SERVICES Received: 01/20/2018 11:34 AM Pathologist: Judie Childs MD Specimen: Liver Needle Biopsy, please run EM on this specimen 01/21/2018 4:03 PM CDT [facility] Final Diagnosis Liver, needle biopsy (A): - Mild steatosis and lobular inflammation - No fibrosis 01/21/2018 4:03 PM CDT [facility] Clinical History The patient is a 17-year-old boy with elevated liver enzymes who underwent liver biopsy to rule out non-alcoholic steatohepatitis (RUTLEDGE). 01/21/2018 4:03 PM CDT [facility] Gross Description Submitted fixed [...] possible electron microscopy. (CT/me) 01/21/2018 4:03 PM [facility] Microscopic Description 2 H&E [...] of condensation. The PASD is negative for psvff-1-wpvlqqujnuk gobules but shows focal pigmented macrophages. The [...] non alcoholic steatohepatitis (RUTLEDGE). 01/21/2018 4:03 PM [facility] Disclaimer The performance characteristics of all immunohistochemical and indirect immunofluorescence stains (if any) cited in this report were determined by the Histopathology Laboratory of [facility]. Some of these tests were developed [...] the attending (teaching) pathologist. 01/21/2018 4:03 PM CDT [facility] Embedded Images 01/21/2018 4:03 PM CDT [facility] Pathology/Cytolo gy NEEDLE BIOPSY OF LIVER / Unknown 01/20/2018 10:36 AM CDT 01/20/2018 11:34 AM CDT Jose Rafael Thompson MD LAB - PATHOLOGY/CYTO LOGY ORDERABLES Performing Organization Address [facility] Co de Phone Number [facility] [address] [place] [address] * BLOOD TYPE VERIFICATION (01/20/2018 10:36 AM CDT) ABO A 01/20/2018 10:43 AM CDT [facility] Rh Type Positive 01/20/2018 10:43 AM CDT [facility] Blood Bank BLOOD SPECIMEN / Unknown Lab Venipuncture / Unknown 01/20/2018 10:36 AM CDT 01/20/2018 10:37 AM CDT Jose Rafael Thompson MD LAB - BLOOD BANK ORD ERABLES Performing Organization Address [facility] Co de Phone Number [facility] [address] [place] [address] * NEEDLE BIOPSY, LIVER (01/20/2018 9:30 AM CDT) Report Endoscopy POC _ Patient Name: Erick Triana Date of : 2000 Admit Type: Outpatient Age: 17 Gender: Male Attending MD: Jose Rafael Thompson MD Order #: [id number] _ Procedure: Liver biopsy Indications: Abnormal Liver enzymes (no detail) Providers: Jose Rafael Thompson MD Referring MD: Godfrey Curry MD Medicines: General anesthesia Complications: No immediate complications. Estimated blood loss: Minimal. _ Procedure: Informed consent was obtained. Aseptic technique was used. The point of maximal dullness was determined by percussion. 1% Lidocaine local anesthesia was injected. The depth of the liver was confirmed by spinal needle sounding. The liver biopsy was accomplished without difficulty. The patient tolerated the procedure fairly well. Findings: A 9 mm unfragmented core of tissue was obtained. The specimen was prepared with formalin and sent for histology. One pass was made with the BioPince gun using ultrasound to conor the site. Post Biopsy ultrasound looked okay. Impression: - Tissue was submitted to pathology. Recommendation: - Please call GI office in 2 weeks for the results. Keep scheduled appointments. Please keep us informed of patient progress. Do not hesitate to call GI for any questions / concerns. Procedure Code(s): --- Professional --- 29292, Biopsy of liver, needle; percutaneous 58752, Ultrasonic guidance for needle placement (eg, biopsy, aspiration, injection, localization device), imaging supervision and interpretation --- Technical --- 89996, Biopsy of liver, needle; percutaneous 82714, Ultrasonic guidance for needle placement (eg, biopsy, aspiration, injection, localization device), imaging supervision and interpretation Diagnosis Code(s): --- Professional --- R74.9, Abnormal serum enzyme level, unspecified --- Technical --- R74.9, Abnormal serum enzyme level, unspecified CPT copyright 2015 [employer]. All rights reserved. The codes documented in this report are preliminary and upon residential leasing manager review may be revised to meet current compliance requirements. Dr. Jose Rafael Thompson Jose Rafael Thompson MD 01/20/2018 11:15:04 AM This report has been signed electronically. Number of Addenda: 0 Note Initiated On: 01/19/2018 9:30 AM Procedure Date: 01/20/2018 9:30:00 AM This report has been signed electronically. [facility] 01/20/2018 9:30 AM CDT Jose Rafael Thompson MD GI PROCEDURE ORDERAB LES Performing Organization Address [facility] Co de Phone Number [facility] [address] [place] [address] * PREPARE (CROSSMATCH) RBC UNIT(S), 1 Units (01/20/2018 9:15 AM CDT) Product Code [id number] [facility] Unit Donor # [id number] C [facility] ABO Donor Type A [facility] Rh Type Unit POS [facility] Unit Status Ret'd [facility] ABO Rh Type Unit APOS [facility] Donor Unit Expiration Date [id number] [facility] Blood Type Barcode [address] [facility] Blood Bank BLOOD SPECIMEN / Unknown 01/20/2018 9:15 AM CDT Jose Rafael Thompson MD LAB - BLOOD BANK ORD ERABLES Performing Organization Address [facility]/ZIP Co de Phone Number [facility] [address] [place] [address] * TYPE + SCREEN PANEL (01/20/2018 9:09 AM CDT) ABO A 01/20/2018 10:42 AM CDT [facility] Rh Type Positive 01/20/2018 10:42 AM CDT [facility] Comment:History checked. Antibody Screen Negative 01/20/2018 10:42 AM CDT [facility] Blood Bank BLOOD SPECIMEN / Unknown Venipuncture / Unknown 01/20/2018 9:09 AM CDT 01/20/2018 9:30 AM CDT Jose Rafael Thompson MD LAB - BLOOD BANK ORD ERABLES Performing Organization Address City/[facility]/ZIP Co de Phone Number [facility] [address] [place] [address] * (ABNORMAL) PT PTT PANEL (01/20/2018 9:09 AM CDT) PT 11.7(H) 9.5 - 11.6 sec 01/20/2018 10:12 AM CDT [facility] INR 1.1 0.9 - 1.1 01/20/2018 10:12 AM T [facility] PTT 24.5 21.0 - 32.0 sec 01/20/2018 10:12 AM T [facility] Blood BLOOD SPECIMEN / Unknown Venipuncture / Unknown 01/20/2018 9:09 AM CDT 01/20/2018 9:31 AM CDT Narrative [facility] - 01/20/2018 10:12 AM CDT Conventional Warfarin Anticoagulant Therapy: INR Reference Range: 2.0-3.0 Intensive Warfarin Anticoagulant Therapy: INR Reference Range: 2.5-3.5 Heparin Therapeutic Range for PTT: 47.7 - 68.6 seconds. Jose Rafael Thompson MD LAB - COAGULATION OR DERABLES Performing Organization Address City/[facility]/ZIP Co de Phone Number [facility] [address] [place] [address] * (ABNORMAL) CBC W AUTO DIFFERENTIAL (01/20/2018 9:09 AM CDT) Only the most recent of3 resultswithin the time period is included. WBC 8.5 4.5 - 11.0 x10E9/L 01/20/2018 9:42 AM CDT [facility] WBC Corrected x10E9/L 01/20/2018 9:42 AM [facility] RBC 6.07(H) 4.50 - 5.30 x10E12/L 01/20/2018 9:42 AM [facility] Hemoglobin 16.3(H) 13.0 - 16.0 gm/dL 01/20/2018 9:42 AM [facility] Hematocrit 47.4 37.0 - 49.0 % 01/20/2018 9:42 AM [facility] MCV 78.1 78.0 - 98.0 fl 01/20/2018 9:42 AM [facility] MCH 26.9 25.0 - 35.0 pg 01/20/2018 9:42 AM [facility] MCHC 34.4 31.0 - 37.0 gm/dL 01/20/2018 9:42 AM [facility] Platelet Count 310 100 - 400 x10E9/L 01/20/2018 9:42 AM [facility] RDW-CV 12.8 11.5 - 14.0 % 01/20/2018 9:42 AM [facility] MPV 10.5(H) 6.0 - 9.5 fl 01/20/2018 9:42 AM [facility] Neutrophils % 49.3 31.0 - 78.0 % 01/20/2018 9:42 AM [facility] Lymphocytes % 36.9 13.0 - 54.0 % 01/20/2018 9:42 AM [facility] Monocytes % 7.8 4.0 - 13.0 % 01/20/2018 9:42 AM [facility] Eosinophils % 4.6 0.0 - 8.0 % 01/20/2018 9:42 AM [facility] Basophils % 0.7 % 01/20/2018 9:42 AM [facility] Immature Granulocytes 0.7 % 01/20/2018 9:42 AM [facility] Neutrophil Absolute 4.17 x10E9/L 01/20/2018 9:42 AM [facility] Lymphocytes Absolute 3.12 x10E9/L 01/20/2018 9:42 AM [facility] Monocytes Absolute 0.66 x10E9/L 01/20/2018 9:42 AM [facility] Eosinophils Absolute 0.39 x10E9/L 01/20/2018 9:42 AM CDT [facility] Basophils Absolute 0.06 x10E9/L 01/20/2018 9:42 AM CDT [facility] Immature Granulocytes Absolute 0.06 x10E9/L 01/20/2018 9:42 AM CDT [facility] nRBC Auto 0 /100 WBC 01/20/2018 9:42 AM CDT [facility] Blood BLOOD SPECIMEN / Unknown Venipuncture / Unknown 01/20/2018 9:09 AM CDT 01/20/2018 9:30 AM CDT Jose Rafael Thompson MD LAB - HEMATOLOGY ORD ERABLES [facility] [place] [phone] * TISSUE TRANSGLUTAMINASE AB IGA (11/12/2017 9:57 AM CDT) TTG Antibody IgA <2 0 - 3 U/mL 11/13/2017 3:11 PM CDT [facility] ([facility]) Comment: Negative 0 - 3 Weak Positive 4 - 10 Positive >10 Tissue Transglutaminase (tTG) has been identified as the endomysial antigen. Studies have demonstr- ated that endomysial IgA antibodies have over 99% specificity for gluten sensitive enteropathy. Blood BLOOD SPECIMEN / Unknown Lab Venipuncture / Unknown 11/12/2017 9:57 AM CDT 11/12/2017 10:52 AM CDT Narrative [facility] ([facility]) - 11/13/2017 3:11 PM CDT Performed at: 01 - [facility] [address] [id number] Central Supply Nurse: Carlos Aleman PhD, Phone: [phone] Jose Rafael Thompson MD LAB - SEROLOGY ORDER ASTRID [facility] ([facility]) [address] [place] [address] * (ABNORMAL) C-REACTIVE PROTEIN (11/12/2017 9:57 AM CDT) [facility] C-Reactive Protein 1.00(H) <=0.50 mg/dL 11/12/2017 11:35 AM CDT [facility] Blood BLOOD SPECIMEN / Unknown Lab Venipuncture / Unknown 11/12/2017 9:57 AM CDT 11/12/2017 10:52 AM CDT Jose Rafael Thompson MD LAB - CHEMISTRY HILDA MARIO Performing Organization Address City/[facility]/ZIP Co de Phone Number [facility] [address] [place] [phone] * LORI BLOOD SCREEN W/REFLEX TITER (11/12/2017 9:57 AM CDT) [facility] LORI Negative Negative 11/13/2017 7:25 AM CDT [facility] Blood BLOOD SPECIMEN / Unknown Lab Venipuncture / Unknown 11/12/2017 9:57 AM CDT 11/12/2017 10:52 AM CDT Jose Rafael Thompson MD LAB - CHEMISTRY HILDA MARIO Performing Organization Address City/[facility] Co de Phone Number [facility] [address] [place] [address] * MICROSOMAL ANTIBODY LIVER/KIDNEY (11/12/2017 9:57 AM CDT) [facility] Liver-Kidney Microsomal Antibody <1.0 0.0 - 20.0 Units 11/15/2017 4:20 PM CDT [facility] ([facility]) Comment: Negative 0.0 - 20.0 Equivocal 20.1 - 24.9 Positive >24.9 LKM type 1 antibodies are detected in patients with autoimmune hepatitis type 2 and in up to 8% of patients with chronic HCV infection. Blood BLOOD SPECIMEN / Unknown Lab Venipuncture / Unknown 11/12/2017 9:57 AM CDT 11/12/2017 10:52 AM CDT Narrative [facility] ([facility]) - 11/15/2017 4:20 PM CDT Performed at: [facility] [id number] Central Supply Nurse: Carlos Aleman PhD, Phone: [phone] Jose Rafael Thompson MD LAB - CHEMISTRY HILDA MARIO [facility]) [address] [place] [address] * CERULOPLASMIN (11/12/2017 9:57 AM CDT) Ceruloplasmin 25 17 - 54 mg/dL 11/12/2017 11:56 AM CDT [facility] Blood BLOOD SPECIMEN / Unknown Lab Venipuncture / Unknown 11/12/2017 9:57 AM CDT 11/12/2017 10:52 AM CDT Jose Rafael Thompson MD LAB - CHEMISTRY HILDA MARIO Performing Organization Address City/[facility] Co de Phone Number [facility] [address] [place] [address] * [id number] BLOOD (11/12/2017 9:57 AM CDT) Hffus-1-Rwceloo psin 147 90 - 200 mg/dL 11/13/2017 8:27 AM CDT [facility] ([facility]) Blood BLOOD SPECIMEN / Unknown Lab Venipuncture / Unknown 11/12/2017 9:57 AM CDT 11/12/2017 10:52 AM CDT Narrative [facility] ([facility]) - 11/13/2017 8:27 AM CDT Performed at: - [facility] [id number] Central Supply Nurse: Carlos Aleman PhD, Phone: [phone] Jose Rafael Thompson MD LAB - CHEMISTRY HILDA MARIO Performing Organization Address City/[facility]/ZIP Co de Phone Number [facility] ([facility]) [address] [place] [address] * SMOOTH MUSCLE ANTIBODY (11/12/2017 9:57 AM CDT) Actin (Smooth Muscle) Antibody 5 0 - 19 Units 11/13/2017 5:07 PM CDT [facility] ([facility]) Comment: Negative 0 - 19 Weak positive 20 - 30 Moderate to strong positive >30 Actin Antibodies are found in 52-85% of patients with autoimmune hepatitis or chronic active hepatitis and in 22% of patients with primary biliary cirrhosis. Blood BLOOD SPECIMEN / Unknown Lab Venipuncture / Unknown 11/12/2017 9:57 AM CDT 11/12/2017 10:52 AM CDT [facility]) - 11/13/2017 5:07 PM CDT [facility]formed [facility]: [facility] [address] [place], [place] [id number] Central Supply Nurse: Carlos Aleman PhD, Phone: [phone] Jose Rafael Thompson MD LAB - SEROLOGY ORDER ASTRID [facility] ([facility]) [address] [place] [address] * PTT (11/12/2017 9:57 AM CDT) PTT 25.3 21.0 - 32.0 sec 11/12/2017 11:24 AM CDT [facility] Blood BLOOD SPECIMEN / Unknown Lab Venipuncture / Unknown 11/12/2017 9:57 AM CDT 11/12/2017 10:52 AM CDT [facility] - 11/12/2017 11:24 AM CDT Heparin Therapeutic Range for PTT: 47.7 - 68.6 seconds. Jose Rafael Thompson MD LAB - COAGULATION OR DERABLES [facility] [place] [address] * PT-INR (11/12/2017 9:57 AM CDT) PT 10.5 9.5 - 11.6 sec 11/12/2017 11:24 AM CDT [facility] INR 1.0 0.9 - 1.1 11/12/2017 11:24 AM CDT [facility] Blood BLOOD SPECIMEN / Unknown Lab Venipuncture / Unknown 11/12/2017 9:57 AM CDT 11/12/2017 10:52 AM CDT Narrative [facility] - 11/12/2017 11:24 AM CDT Conventional Warfarin Anticoagulant Therapy: INR Reference Range: 2.0-3.0 Intensive Warfarin Anticoagulant Therapy: INR Reference Range: 2.5-3.5 Jose Rafael Thompson MD LAB - COAGULATION OR DERABLES Performing Organization Address City/State/[facility] Co ne Phone Number [facility] [address] [place] [address] * (ABNORMAL) COMPREHENSIVE METABOLIC PANEL (11/12/2017 9:57 AM T) Only the most recent of2 resultswithin the time period is included. [facility] Glucose 85 70 - 105 mg/dL 11/12/2017 11:35 AM [facility] Sodium 140 136 - 145 mmol/L 11/12/2017 11:35 AM [facility] Potassium 4.1 3.5 - 5.1 mmol/L 11/12/2017 11:35 AM [facility] Chloride 104 98 - 107 mmol/L 11/12/2017 11:35 AM [facility] CO2 27 20 - 28 mmol/L 11/12/2017 11:35 AM [facility] Calcium 9.85 9.08 - 10.48 mg/dL 11/12/2017 11:35 AM [facility] Anion Gap 9 5 - 20 mmol/L 11/12/2017 11:35 AM [facility] BUN 17.4 5.3 - 18.7 mg/dL 11/12/2017 11:35 AM [facility] Creatinine 0.68 0.61 - 1.07 mg/dL 11/12/2017 11:35 AM [facility] Alkaline Phosphatase 76(L) 100 - 390 U/L 11/12/2017 11:35 AM [facility] ALT 176(H) 6 - 46 U/L 11/12/2017 11:35 AM [facility] AST 71(H) 3 - 35 U/L 11/12/2017 11:35 AM [facility] Protein Total 7.7 6.3 - 8.2 gm/dL 11/12/2017 11:35 AM CDT [facility] Albumin 4.7 3.3 - 4.9 gm/dL 11/12/2017 11:35 AM T [facility] Bilirubin Total 0.6 0.3 - 1.2 mg/dL 11/12/2017 11:35 AM T [facility] eGFR by MDRD >60 mL/min/1.7 3m2 11/12/2017 11:35 AM T [facility] Comment: eGFR calculations are not performed for children under 18 years old. eGFR by MDRD >60 mL/min/1.7 3m2 11/12/2017 11:35 AM T [facility] Comment: eGFR calculations are not performed for children under 18 years old. Blood BLOOD SPECIMEN / Unknown Lab Venipuncture / Unknown 11/12/2017 9:57 AM CDT 11/12/2017 10:52 AM CDT Jose Rafael Thompson MD LAB - CHEMISTRY HILDA MARIO Performing Organization Address City/[facility]/ZIP Co de Phone Number [facility] [address] [place] [address] * GGT (11/12/2017 9:57 AM CDT) GGT 33 8 - 69 U/L 11/12/2017 11:35 AM T [facility] Blood BLOOD SPECIMEN / Unknown Lab Venipuncture / Unknown 11/12/2017 9:57 AM CDT 11/12/2017 10:52 AM CDT Jose Rafael Thompson MD LAB - CHEMISTRY HILDA MARIO [facility] [address] [place] [address] * CK BLOOD (11/12/2017 9:57 AM CDT) CK 180 30 - 200 U/L 11/12/2017 11:39 AM T [facility] Blood BLOOD SPECIMEN / Unknown Lab Venipuncture / Unknown 11/12/2017 9:57 AM CDT 11/12/2017 10:52 AM CDT Jose Rafael Thompson MD LAB - CHEMISTRY HILDA MARIO Performing Organization Address [facility]/ZIP Co de Phone Number [facility] [address] [place] [phone] * BILIRUBIN DIRECT (11/12/2017 9:57 AM CDT) Bilirubin Direct 0.39 0.11 - 0.64 mg/dL 11/12/2017 11:35 AM CDT [facility] Blood BLOOD SPECIMEN / Unknown Lab Venipuncture / Unknown 11/12/2017 9:57 AM CDT 11/12/2017 10:52 AM CDT Jose Rafael Thompson MD LAB - CHEMISTRY HILDA MARIO Performing Organization Address [facility] Co de Phone Number [facility] [address] [place] [phone] * AMYLASE BLOOD (11/12/2017 9:57 AM CDT) Amylase 23 5 - 65 U/L 11/12/2017 11:35 AM CDT [facility] Blood BLOOD SPECIMEN / Unknown Lab Venipuncture / Unknown 11/12/2017 9:57 AM CDT 11/12/2017 10:52 AM CDT Jose Rafael Thompson MD LAB - CHEMISTRY HILDA MARIO Performing Organization Address [facility] Co de Phone Number [facility] [address] [place] [phone] * TSH (11/12/2017 9:57 AM CDT) TSH 1.06 0.35 - 4.95 uIU/mL 11/12/2017 11:56 AM CDT [facility] Blood BLOOD SPECIMEN / Unknown Lab Venipuncture / Unknown 11/12/2017 9:57 AM CDT 11/12/2017 10:52 AM CDT Jose Rafael Thompson MD LAB - CHEMISTRY HILDA MARIO Performing Organization Address City/[facility]/ZIP Co de Phone Number [facility] [address] [place] [address] * HEPATITIS SCREEN ACUTE (11/12/2017 9:57 AM CDT) HAV Antibody IgM Non Reactive Non Reactive 11/12/2017 11:57 AM CDT [facility] HBsAg Non Reactive Non Reactive 11/12/2017 11:57 AM CDT [facility] HBc Antibody IgM Non Reactive Non Reactive 11/12/2017 11:57 AM CDT [facility] HCV Antibody Screen Non Reactive Non Reactive 11/12/2017 11:57 AM CDT [facility] HCV S/C Ratio 0.05 0.00 - 0.79 11/12/2017 11:57 AM CDT [facility] Comment: Ykhumy-eo-xnhtpc ratio (S/CO) <0.80: Non Reactive Blood BLOOD SPECIMEN / Unknown Lab Venipuncture / Unknown 11/12/2017 9:57 AM CDT 11/12/2017 10:52 AM CDT Narrative [facility] - 11/12/2017 11:57 AM CDT Non Reactive - Antibodies to Hepatitis C virus (HCV) were not detected, result does not exclude early acute HCV infection. Jose Rafael Thompson MD LAB - CHEMISTRY HILDA MARIO Performing Organization Address [facility]/ZIP Co de Phone Number [facility] [address] [place] [address] * IGA BLOOD (11/12/2017 9:57 AM CDT) Pathologist [facility] IgA 92 63 - 484 mg/dL 11/12/2017 11:35 AM CDT [facility] Blood BLOOD SPECIMEN / Unknown Lab Venipuncture / Unknown 11/12/2017 9:57 AM CDT 11/12/2017 10:52 AM CDT Jose Rafael Thompson MD LAB - CHEMISTRY HILDA MARIO Performing Organization Address City/[facility]/ZIP Co de Phone Number [facility] [address] [place] [address] * (ABNORMAL) TRIGLYCERIDES BLOOD (10/01/2017 4:54 PM [facility]) Triglycerides 32(L) 46 - 227 mg/dL 10/01/2017 5:49 PM [facility] Blood BLOOD SPECIMEN / Unknown Lab Venipuncture / Unknown 10/01/2017 4:54 PM [facility] 10/01/2017 5:06 PM [facility] Valdo Pope Jr., MD LAB - CHEMISTRY ORDERABLES [facility] [place] [address] * CULTURE FUNGUS SKIN HAIR NAIL+FUNGUS SMEAR (07/05/2017 1:50 PM MILL TURNER) Culture No fungus isolated AUNDREA 08/03/2017 9:29 AM MILL TURNER [facility] MICROBIOLOGY Fungus Smear No yeast or hyphae seen 08/03/2017 9:29 AM MILL TURNER [facility] MICROBIOLOGY Microbiology TISSUE SPECIMEN FROM SKIN / Unknown Collection / Unknown 07/05/2017 1:50 PM MILL TURNER 07/05/2017 2:49 PM MILL TURNER Elena Eugene PA-C LAB - MICROBIOLOGY ORDERABLES Performing Organization Address [facility] Co de Phone Number [facility] MICROBIOLOGY [address] [place] [address], [facility] [phone] * CULTURE STAPH AUREUS+STREP A (01/20/2016 3:00 PM CDT) Culture Negative for Streptococcus Group A/Staphylococcus aureus AUNDREA 01/22/2016 5:49 AM CDT [facility] MICROBIOLOGY Microbiology TISSUE SPECIMEN FROM SKIN / Unknown 01/20/2016 3:00 PM CDT 01/20/2016 5:25 PM CDT Elena Eugene PA-C LAB - MICROBIOLOGY ORDERABLES Performing Organization Address City/[facility]/ZIP Co de Phone Number [facility] MICROBIOLOGY [address] [place] [address], [facility] [phone] * STREP A SCREEN - POCT (IP) BEAKER (07/12/2015 3:58 PM MILL TURNER) Strep A Rapid POCT negative Negative [facility] POCT TESTING QC Verified Yes Yes [facility] PO CT TESTING Throat swab (specimen) ENTIRE THROAT (SURFACE REGION OF NECK) / Unknown 07/12/2015 3:58 PM MILL TURNER Sarika Aviles MD LAB - POINT OF CARE ORDERABLES Performing Organization Address [facility] Co de Phone Number [facility] POCT TESTING [address] [place], [place] [phone] [place] [address] * STREP A SCREEN DIRECT W RFLX STREP A CULTURE (02/04/2015 10:40 PM CDT) Only the most recent of3 resultswithin the time period is included. Strep A Rapid Negative Negative 02/04/2015 10:55 PM CDT [facility] Microbiology ENTIRE THROAT (SURFACE REGION OF NECK) / Unknown 02/04/2015 10:40 PM CDT 02/04/2015 10:45 PM CDT Narrative [facility] - 02/04/2015 10:55 PM CDT Test has reflexed to a Strep A culture. Joselyn Steward MD LAB - MICROB IOLOGY ORDERABLES Performing Organization Address [facility] Co de Phone Number [facility] [address] [place] [address] * CULTURE STREP GROUP A (02/04/2015 10:40 PM CDT) Only the most recent of3 resultswithin the time period is included. Culture Negative for Beta Hemolytic Streptococcus Group A AUNDREA 02/07/2015 7:16 AM CDT [facility] MICROBIOLOGY Microbiology ENTIRE THROAT (SURFACE REGION OF NECK) / Unknown 02/04/2015 10:40 PM CDT 02/04/2015 10:45 PM CDT Joselyn Steward MD LAB - MICROB IOLOGY ORDERABLES [facility] MICROBIOLOGY [address] [place], [place] [address], [facility] [phone] * XR ABD OBSTR SERIES (10/03/2014 12:45 AM MILL TURNER) Anatomical Region Laterality Modality Abdomen Radiographic Christine ging 10/03/2014 7:32 AM MILL TURNER Impressions 10/03/2014 7:33 AM MILL TURNER Retained stool. Narrative 10/03/2014 7:33 AM MILL TURNER Exam: Abdomen obstruction series History: 14-year-old male [...] (ABNORMAL) URINALYSIS ROUTINE AUTO (10/02/2014 11:20 PM MILL TURNER) Only the most recent of2 resultswithin the time period is included. Color UA Yellow Straw, Yellow, Dark Yellow 10/02/2014 11:28 PM [facility] Clarity UA Clear 10/02/2014 11:28 PM [facility] Specific Wood UA 1.015 1.005 - 1.030 10/02/2014 11:28 PM [facility] pH UA 6.0 5.0 - 8.0 pH 10/02/2014 11:28 PM [facility] Protein UA Negative Negative 10/02/2014 11:28 PM [facility] Blood UA Trace(A) Negative 10/02/2014 11:28 PM [facility] Leukocyte UA Negative Negative 10/02/2014 11:28 PM [facility] Nitrite UA Negative Negative 10/02/2014 11:28 PM [facility] Glucose UA Negative Negative 10/02/2014 11:28 PM [facility] Ketone UA Negative Negative 10/02/2014 11:28 PM [facility] Bilirubin UA Negative Negative 10/02/2014 11:28 PM [facility] Urobilinogen UA 0.2 0.1 - 1.0 EU/dL 10/02/2014 11:28 PM [facility] Urine URINE SPECIMEN OBTAINED BY CLEAN CATCH PROCEDURE / Unknown 10/02/2014 11:20 PM M[facility] TURNER 10/02/2014 11:23 PM MILL TURNER Marquise Wu MD LAB - URINALYSIS ORD ERABLES Performing Organization Address [facility] Co de Phone Number [facility] [address] [place] [phone] * URINALYSIS MICROSCOPIC ONLY (10/02/2014 11:20 PM MILL TURNER) Only the most recent of2 resultswithin the time period is included. RBC UA 2-5 0-2, 2-5 # /hpf 10/03/2014 12:13 AM [facility] WBC UA 0-2 0-2, 2-5 # /hpf 10/03/2014 12:13 AM [facility] Bacteria UA None Seen None Seen, Trace 10/03/2014 12:13 AM [facility] Epithelial Cell UA 0-2 0-2, 2-5 10/03/2014 12:13 AM [facility] Urine URINE SPECIMEN OBTAINED BY CLEAN CATCH PROCEDURE / Unknown 10/02/2014 11:20 PM M[facility] TURNER 10/02/2014 11:23 PM M[facility] TURNER Jazmin Mathews MD LAB - URINALYSIS ORD ERABLES Performing Organization Address [facility] Co de Phone Number [facility] [address] [place] [phone] * (ABNORMAL) ALT (11/02/2013 4:26 PM CDT) ALT 348(H) 6 - 46 U/L 11/02/2013 5:14 PM CDT [facility] Blood BLOOD SPECIMEN / Unknown Lab Venipuncture / Unknown 11/02/2013 4:26 PM CDT 11/02/2013 4:42 PM CDT Ivet WoodardCCM [employer] LAB - CHEMISTRY ORDE Watch-Sites Performing Organization Address [facility] Co de Phone Number [facility] [address] [place] [phone] * (ABNORMAL) AST BLOOD (11/02/2013 4:26 PM CDT) AST 164(H) 3 - 35 U/L 11/02/2013 5:14 PM CDT [facility] Blood BLOOD SPECIMEN / Unknown Lab Venipuncture / Unknown 11/02/2013 4:26 PM CDT 11/02/2013 4:42 PM CDT Ivet Zapata Braclet LAB - CHEMISTRY ORDE Watch-Sites Performing Organization Address [facility] Co de Phone Number [facility] [address] [place] [phone] * (ABNORMAL) LIPID PROFILE (11/02/2013 4:26 PM CDT) Cholesterol 70 <170 mg/dL 11/02/2013 5:14 PM CDT [facility] Triglycerides 109 42 - 330 mg/dL 11/02/2013 5:14 PM CDT [facility] HDL Cholesterol 31(L) >40 mg/dL 5:14 PM CDT [facility] LDL Calculated <20 <100 mg/dL 11/02/2013 5:14 PM CDT [facility] VLDL Calculated 22 12 - 38 mg/dL 11/02/2013 5:14 PM CDT [facility] Chol HDL Ratio 2.3 <=5.0 11/02/2013 5:14 PM CDT [facility] Blood BLOOD SPECIMEN / Unknown Lab Venipuncture / Unknown 11/02/2013 4:26 PM CDT 11/02/2013 4:42 PM CDT Narrative [facility] - 11/02/2013 5:14 PM CDT Lipid Profile Comment: Adult references ranges are the recommendation of the [place] [employer] , for those patients >18 years old. Cholestrol LDL Triglycerides HDL -- -- -- <40 Low <170 <100 <150 Desirable 170-199 130-159 150-199 Borderline High >200 160-189 200-499 >60 High Risk factor status for Coronary Artery Disease is necessary to place these lab findings in perspective. Note: This test is for fasting patients only. A non-fasting state may alter some of these results. Ivet Hinton DO LAB - CHEMISTRY ORDE SHELBI Performing Organization Address [facility] Co de Phone Number [facility] [address] [place] [address] * GLUCOSE - POINT OF CARE (08/17/2013 3:19 PM MILL TURNER) Blood BLOOD SPECIMEN / Unknown 08/17/2013 3:19 PM MILL TURNER 08/18/2013 9:33 AM MILL TURNER Batsheva Morataya PRIMARY COUNSELOR-PHYSICIAN LIAISON LAB - POINT OF CARE ORDERABLES Performing Organization Address [facility] de Phone Number [facility] [address] [place] [address] * CULTURE URINE (08/17/2013 3:15 PM MILL TURNER) Culture <10,000 CFU/mL normal urogenital brian 08/19/2013 6:19 PM M[facility] TURNER [facility] MICROBIOLOGY Urine URINE SPECIMEN OBTAINED BY CLEAN CATCH PROCEDURE / Unknown 08/17/2013 3:15 PM MILL TURNER 08/17/2013 3:26 PM M[facility] TURNER Batsheva Morataya PRIMARY COUNSELOR-PHYSICIAN LIAISON LAB - MICRO BIOLOGY ORDERABLES Performing Organization Address [facility] Co de Phone Number [facility] MICROBIOLOGY [address] [place], [place] [address], [facility] * LAB RESULTS ORDER (05/17/2012 10:08 AM CDT) Narrative Transcriptions Document, Scanned - 05/17/2012 10:08 AM CDT Scanned Document LAB - THERAPEUTIC DR LYLES MONITORING ORDERABLES * (ABNORMAL) FERRITIN (04/17/2011 10:55 AM CDT) Only the most recent of2 resultswithin the time period is included. Ferritin 124(H) 10 - 105 ng/ml [facility] BLOOD SPECIMEN / Unknown 04/17/2011 10:55 AM CDT 04/17/2011 10:59 AM CDT Daija Lewis MD LAB - CHEMISTRY HILDA MARIO Performing Organization Address City/[facility]/ZIP Co de Phone Number [facility] [address] [place] [address] * PEDIATRIC DIAGNOSTIC POLYSOMNOGRAM (09/22/2010) Signed On Paper Physician [facility] JACOBSON * GROSS EXAM PATHOLOGY (04/01/2007 1:45 PM CDT) Result CASE NUMBER [id number] [facility] LAB PATH REPORT Comment: ORDERING PHYSICIAN MARY MENDOZA SPECIMEN TYPE Tonsils CLINICAL HISTORY The patient is a 6-year-old boy with adenotonsillar hypertrophy who underwent tonsillectomy and adenoidectomy. GROSS DESCRIPTION The specimen labeled with the patient's name and tonsils is received fresh for gross examination only and consists of two egg-shaped, pink-mancia tonsils measuring 3.1 x 2.5 x 1.9 cm and 2.9 x 2.5 x 1.9 cm, weighing approximately 10 grams. On cut surface the tonsils have a cerebriform yellow-mancia appearance. No sections are taken. (PN/nab) GROSS DIAGNOSIS GROSS DIAGNOSIS TONSILS. This case has been personally reviewed and interpreted by the attending (teaching) pathologist. Business Change Manager DAMIR MURPHY PATHOLOGIST Elie Rowan M.D. ELECTRONICALLY CHIVO Elie Rowan MISCELLANEOUS SAMPLES / Unknown 04/01/2007 1:45 PM CDT 04/01/2007 2:01 PM CDT Historical Provider LAB - PATHOLOGY/C YTOLOGY ORDERABLES [facility] LAB PATH REPORT Care Teams Human Service Coordinator Relationship Specialty Start Date End Date Labarge, Godfrey Zapata MD [address] [place] [address] PCP - General Pediatrics 05/01/14 Dipika Reddy MD [address] [place] [address] Resident Student Resident 11/27/15
[2024-09-07 13:10] VITALS: BP 148/80; PULSE 81; RESP 18; TEMP 36.4; O2SAT 100; BMI 35.0
[2024-09-07] MEDS: LACTATED RINGERS 1,000 ML 150 ML IV CONT (13:19)
--- NOTE | 2024-09-07 13:32 | P.PNAN_ITS ---
Anes - Initial Pre Proc Eval Procedure: Operation Date: 09/07/24 14:30 Proposed Procedures p Esophagogastroduodenoscopy & Colonoscopy - Jai Zavaleta MD Date/Time: 09/07/24 13:32 Surgeon: Jai Zavaleta MD Pre Op Diagnosis: fecal abn, hem of anus/rectum, other symptoms of Patient Data Age: 24 Gender: M Height: 1.83 m Weight: 117.2 kg Last Vital Signs Temp 36.4 C 09/07/24 13:10 Pulse 81 09/07/24 13:10 Resp 18 09/07/24 13:10 BP 148/80 H 09/07/24 13:10 Pulse Ox 100 09/07/24 13:10 O2 Del Method Room Air 09/07/24 13:10 Allergies Allergy/AdvReac Type Severity Reaction Status Date / Time No Known Allergies Allergy Verified 09/07/24 13:09 Home Medications ?Medication ?Instructions ?Recorded ?Confirmed ?Type Saccharomyces boulardii 250 mg 250 mg PO DAILY 08/23/24 09/07/24 History capsule (Daily Probiotic (S. boulardii)) Patient hx anesthesia problems: none Family hx anesthesia problems: none Results Review: All pre-operative results and documents have been reviewed as part of the pre- operative evaluation. [facility] Past Medical History Medical History Tenesmus (rectal) BRBPR (bright red blood per rectum) Mucus in stool H. pylori infection Gastritis Hypertension Surgical History Surgical History History of tonsillectomy Family History Family History Other Diabetes mellitus Heart disease Hypertension Social History Social History Smoking status: Never smoker Alcohol intake: current Substance use: never Do You Feel Safe in your Home?: Yes Lack of Transportation: No Lack of Food: Never True Current Housing: I Have Housing Concerned About Future Housing: No Difficulty Paying Gas/Electric Bills: No Difficulty Paying for Meds: No Currently Unemployed: YES Education: High School Diploma/GED Difficulty w/ Childcare or Family Care: No Living arrangements: with family Spiritual care concerns: No Anes - Eval Final PreProcedure Day of Procedure 09/07/24 13:32 Patient weight: obese Heart: regular rate and rhythm Lungs: clear to auscultation Airway: Mallampati scale class II Neurological: alert and oriented Last oral intake: >/= 8 hours ASA classification: III Emergent: no Anesthetic plan: proceed Anesthesia type and monitoring: general GIVS and standard monitoring Results Review: All pre-operative results and documents have been reviewed as part of the pre- operative evaluation. Informed Consent: The patient's anesthetic plan and its attendant risks and benefits were discussed with the patient/family/POA. Questions were solicited and answers provided to the satisfaction of the patient/family/POA.
--- NOTE | 2024-09-07 14:26 | P.HP_ITS ---
H&P: HPI History of Present Illness Date/Time: 09/07/24 14:26 Chief Complaint: Persistent nausea -change in bowel habits. Narrative: The patient is seen recently in our office for persistent nausea for approxima tely 3 weeks. In addition, he has noticed a change in stool consistency with occasional passage of blood in stool, minimal amounts. He is referred for EGD and colonoscopy. Review of Systems Review of Systems: All systems reviewed & are unremarkable except as noted in HPI and below PMFSH Past Medical History Medical History Tenesmus (rectal) BRBPR (bright red blood per rectum) Mucus in stool H. pylori infection Gastritis Hypertension Surgical History Surgical History History of tonsillectomy Family History Family History Other Diabetes mellitus Heart disease Hypertension Social History Social History Smoking status: Never smoker Alcohol intake: current Substance use: never Do You Feel Safe in your Home?: Yes Lack of Transportation: No Lack of Food: Never True Current Housing: I Have Housing Concerned About Future Housing: No Difficulty Paying Gas/Electric Bills: No Difficulty Paying for Meds: No Currently Unemployed: YES Education: High School Diploma/GED Difficulty w/ Childcare or Family Care: No Living arrangements: with family Spiritual care concerns: No Meds Home Medications and Allergies Home Medications ?Medication ?Instructions ?Recorded ?Confirmed ?Type Saccharomyces boulardii 250 mg 250 mg PO DAILY 08/23/24 09/07/24 History capsule (Daily Probiotic (S. boulardii)) Allergies Allergy/AdvReac Type Severity Reaction Status Date / Time No Known Allergies Allergy Verified 09/07/24 13:09 Vital Signs Vital Signs - 24 hr 09/07/24 13:10 Temperature 97.6 F Pulse Rate 81 Respiratory Rate 18 Blood Pressure 148/80 H Pulse Oximetry 100 Oxygen Delivery Room Air Exam Const: General: cooperative and healthy appearing Resp: Effort & Inspection: normal respiratory effort and able to speak in complete sentences Auscultation: clear to auscultation bilaterally Cardio: Rate: regular rate Rhythm: regular rhythm GI: Inspection: normal to inspection GI Palp: No No hepatosplenomegaly present Auscultation: normal bowel sounds Rectal Exam: deferred Skin: General skin exam: normal color Psych: Appearance: grossly normal Mental Status: mental status grossly normal Assessment and Plan Assessment and plan (1) Nausea and vomiting: Code(s): R11.2 - Nausea with vomiting, unspecified Status: Acute Assessment and Plan: The patient is deemed a good candidate for the procedures. Consent signed. Will proceed. (2) BRBPR (bright red blood per rectum): Code(s): K62.5 - Hemorrhage of anus and rectum Status: Acute
--- NOTE | 2024-09-07 14:47 | SUR.OPER ---
EGD ended at 1441, colonoscopy began at 1447.
[2024-09-07 15:00] VITALS: BP 104/65; PULSE 66; RESP 15; O2SAT 99
[2024-09-07 15:10] VITALS: BP 115/77; PULSE 63; RESP 22; O2SAT 100
[2024-09-07 15:20] VITALS: BP 119/79; PULSE 61; RESP 16; O2SAT 100
== END 2024-09-07 15:32 | disposition home or self-care (01) ==
PROVIDERS: PCP Physician Assistant; Referring Provider Nurse Practitioner Family; Visit Provider Internal Medicine Gastroenterology
PROC: 0DJ08ZZ Inspection of Upper Intestinal Tract, Via Natural or Artificial Opening Endoscopic (ICD-10-PCS; CPT 45378; principal; 2024-09-07 14:30)
DX: K62.5 Hemorrhage of anus and rectum (principal); K62.89 Other specified diseases of anus and rectum; R11.2 Nausea with vomiting, unspecified
CPT/HCPCS: 45385; 43239; 88305; J2003; J2704; J7120

== ENCOUNTER 2024-09-24 13:34 | Emergency (ER) | payer OTHER, SELFPAY ==
--- OUTSIDE RECORDS SUMMARY | 2024-09-24 13:37 | XMS_ITS | Encounter Summary ---
Author Organization [facility] Address [address] [place] [address] Care Team Providers Care Supervisor Painting Shipyard Name Role Phone Sivan Boyd Primary Care Provider + Reason for Referral * Diagnostic Imaging (Routine) - Authorized Specialty Diagnoses / Procedures Referred By Contac t Referred To Contact Diagnoses Abdominal pain Elevated LFTs Procedures NM Hepatobiliary Imaging W Sivan Gudino PA [address] [address] Phone: tel: fax: [address] [phone] Referral ID Status Reason Start Date Expiration Date V isits Requested Visits Authorized [id number] Authorized 09/13/2024 10/13/2025 2 2 SALES CONSULTANT Reason for Visit * Diagnostic Imaging (Routine) - Authorized Specialty Diagnoses / Procedures Referred By Contac t Referred To Contact Diagnoses Abdominal pain Elevated LFTs Procedures NM Hepatobiliary Imaging W Sivan Gudino PA [address] [address] Phone: tel: fax: [address] [phone] Referral ID Status Reason Start Date Expiration Date V isits Requested Visits Authorized [id number] Authorized 09/13/2024 10/13/2025 2 2 Encounter Details Date Type Department Care Team (Latest Contact Info) Description 09/22/2024 12:46 PM HOME SALES CONSULTANT - 09/22/2024 11:59 PM HOME SALES CONSULTANT Hospital Encounter [facility] Nuclear Medicine [address] [place] [id number] Abdominal pain; Elevated LFTs Discharge Disposition: Discharge to home or self [...] more points, staff should administer the PHQ-9) 0 09/11/2024 Personal Safety Answer Date Recorded Have you ever been in or are you currently in a harmful physical or emotional relationship or is someone making you feel afraid or unsafe? Denies 09/12/2024 Sex and Gender Information Value Date Recorded Sex Assigned at Not on file Legal Sex Male 12:57 PM HOME SALES CONSULTANT Gender Identity Not on file Sexual Orientation Not on file documented as of this encounter Discharge Disposition Disposition Code Departure Means Destination Discharge to home or self care documented in this encounter Plan of Treatment Not on file documented as of this encounter Procedures Procedure Name Priority Date/Time Associated Diagnosis Comments NM HEPATOBILIARY IMAGING W PHARMACEUTICAL INTERVENTION Schedule Routine, Read Routine (OP Routine) 09/22/2024 3:27 PM HOME SALES CONSULTANT Abdominal pain Elevated LFTs documented in this encounter Results * NM Hepatobiliary Imaging W GBEF (09/22/2024 3:27 PM HOME SALES CONSULTANT) Anatomical Region Laterality Modality Body N/A Nuclear Medicine 09/22/2024 3:33 PM HOME SALES CONSULTANT Narrative 09/22/2024 3:41 PM HOME SALES CONSULTANT EXAM DESCRIPTION: NM HEPATOBILIARY IMAGING W PHARMACEUTICAL INTERVENTION REASON FOR STUDY: Abdominal pain, upper, chronic, assess gallbladder motility RADIOPHARMACEUTICAL: 5.3 mCi Tc-99m mebrofenin via a right antecubital IV site and 8 oz Ensure Plus or equivalent p.o. COMPARISON: CTA 09/12/2024. TECHNIQUE: Following the intravenous administration of the radiopharmaceutical, sequential abdominal images were obtained. A region of interest was drawn around the gallbladder with an ejection fraction calculated. FINDINGS: There is prompt, homogenous tracer localization throughout the liver. There is normal visualization of the intrahepatic ducts, common bile duct, and gallbladder. There is normal biliary to bowel transit. Following the oral administration of Ensure Plus, the gallbladder ejection fraction was calculated and was 35 % (normal: greater than 40%, equivocal: 30-40%, and abnormal: less than 30%). IMPRESSION: 1. No evidence of cystic duct obstruction. 2. Equivocal gallbladder ejection fraction, raises possibility of biliary dyskinesia or chronic cholecystitis. THIS IS AN ELECTRONICALLY VERIFIED FINAL REPORT 09/22/2024 3:41 PM - Electronically signed by Collins Sawant M.D. CH: Report ID: [id number] Reading Location: [id number] Procedure Note Collins Sawant Jr., MD - 09/22/2024 EXAM DESCRIPTION: NM HEPATOBILIARY IMAGING W PHARMACEUTICAL INTERVENTION REASON FOR STUDY: Abdominal pain, upper, chronic, assess gallbladdermotility RADIOPHARMACEUTICAL: 5.3 mCi Tc-99m mebrofenin via a right antecubitalIV site and 8 oz Ensure Plus or equivalent p.o. COMPARISON: CTA 09/12/2024. TECHNIQUE: Following the intravenous administration of the radiopharmaceutical, sequential abdominal images were obtained. A regionof interest was drawn around the gallbladder with an ejection fraction calculated. FINDINGS: There is prompt, homogenous tracer localization throughout the liver. There is normal visualization of the intrahepatic ducts, commonbile duct, and gallbladder. There is normal biliary to bowel transit. Following the oral administration of Ensure Plus, the gallbladder ejection fraction was calculated and was 35 % (normal: greater than 40%,equivocal: 30-40%, and abnormal: less than 30%). IMPRESSION: 1. No evidence of cystic duct obstruction. 2. Equivocal gallbladder ejection fraction, raises possibility ofbiliary dyskinesia or chronic cholecystitis. THIS IS AN ELECTRONICALLY VERIFIED FINAL REPORT 09/22/2024 3:41 PM - Electronically signed by Collins Sawant M.D. CH: BHARAT Report ID: [id number] Reading Location: [id number] Sivan CLAIRE IMG NM PROCEDURES Final Result documented in this encounter Visit Diagnoses Diagnosis Abdominal pain Abdominal pain, unspecified site Elevated LFTs Other abnormal blood chemistry documented in this encounter Administered Medications Inactive Administered Medications - up to 3 most recent administrations Medication Order MAR Action Action Date Dose Rate Site tc-99m mebrofenin (choletec) injection 5.3 millicurie 5.3 millicurie, intravenous, Once in imaging, radiopharmaceutical, Starting on Wed09/22/24 at 1339, For 1 dose, Indications: Diagnostic RadiographyIndicatio ns:Diagnostic Radiography Given 09/22/2024 1:41 PM HOME SALES CONSULTANT 5.3 millicuries Right Antecubital documented in this encounter Orders Medications Ordered That Harley ht Not Have Been Administered Count Last Ordered Date First Ordered Date tc-99m mebrofenin (choletec) injection 5.3 millicurie 1 09/22/2024 documented in this encounter Care Teams Supervisor Painting Shipyard Relationship Specialty Start Date End Date Sivan Boyd PA [address] [facility] [address] [place] [address] PCP - General Family Medicine 08/24/24 documented as of this encounter
--- OUTSIDE RECORDS SUMMARY | 2024-09-24 13:37 | XMS_ITS | Referral Summary ---
Author Organization [facility] Address [address] [place] [address] Care Team Providers Care Surface Grinder Tender Name Role Phone Godfrey Curry MD Primary Care Provider [phone] Dipika Reddy MD Unavailable [phone] Source Comments [facility],non-owned Affiliates and Associated Physician Practices is amultiple site organization consisting of ambulatory clinics and hospital sitesin [place], [place], [place] and [place]. This disclosure is being madepursuant to the Care Everywhere program and may not contain all information available regarding this patient. Last updated 18.[facility] Allergies No known active allergies Medications [...] fluticasone propionate (FLONASE) 50 MCG/ACT nasal spray Cohagen 1 spray into each nostril once daily [...] 07/12/2015 Assessment & Plan (07/12/2015 5:00 PM SUPERVISOR WELDING EQUIPMENT REPAIRER): Assessment: Has had 4 days of cough, [...] and 20/50 (right). Plan: - Optometry referral [facility] (well child check) 11/02/2013 Assessment & Plan [...] management clinic if does not move to [place] - Also may be text for teens eligible if still living in [facility] in a year Allergic rhinitis 05/19/2011 [...] concentrating/remembering/making decisions? No 01/20/2018 Plan of Treatment Upcoming Encounters Date Type Department Care Team (Late st Contact Info) Description 09/25/2024 1:30 PM SUPERVISOR WELDING EQUIPMENT REPAIRER Office Visit [facility] [address] [place] [address] Genia Del Angel, LEATHER CARTRIDGE BELT MAKER-COMBER OPERATOR [address] [place] [address] Procedures Procedure Name Priority Date/Time Associated Diagnosis Comments HEPATITIS SCREEN ACUTE Routine 11/12/2017 9:57 AM CDT Liver disorder from Last 3 Months or Most Recently Relevant to Health Maintenance Results * HEPATITIS SCREEN ACUTE (11/12/2017 9:57 AM CDT) HAV Antibody IgM Non Reactive Non Reactive 11/12/2017 11:57 AM [facility] HBsAg Non Reactive Non Reactive 11/12/2017 11:57 AM T [facility] HBc Antibody IgM Non Reactive Non Reactive 11/12/2017 11:57 AM T [facility] HCV Antibody Screen Non Reactive Non Reactive 11/12/2017 11:57 AM T [facility] HCV S/C Ratio 0.05 0.00 - 0.79 11/12/2017 11:57 AM [facility] Comment: Gcplsq-ns-nkpolk ratio (S/CO) <0.80: Non Reactive Blood BLOOD SPECIMEN / Unknown Lab Venipuncture / Unknown 11/12/2017 9:57 AM CDT 11/12/2017 10:52 AM CDT Narrative [facility] - 11/12/2017 11:57 AM CDT Non Reactive - Antibodies to Hepatitis C virus (HCV) were not detected, result does not exclude early acute HCV infection. Jose Rafael Thompson MD LAB - CHEMISTRY HILDA MARIO [facility] [address] [place] [address] from Last 3 Months or Most Recently Relevant to Health Maintenance Care Teams Surface Grinder Tender Relationship Specialty Start Date End Date Godfrey Curry MD [address] [place] [id number] PCP - General Pediatrics 05/01/14 Dipika Reddy MD [address] [place] [id number] Resident Student Resident 11/27/15
--- OUTSIDE RECORDS SUMMARY | 2024-09-24 13:37 | XMS_ITS | Encounter Summary ---
Author Organization [facility] Address [address] [place] [address] Care Team Providers Care Manager Logistic Name Role Phone Sivan Boyd Primary Care Provider + Encounter Details Date Type Department Care Team (Late st Contact Info) Description 09/19/2024 Results Follow-Up [facility] Family Medicine [address] [phone] Sivan Boyd PA [address] [place] [address] Social History Tobacco Use Types Packs/Day Years [...] on file Legal Sex Male 12:57 PM REVERSE UNIT OPERATOR Gender Identity Not on file Sexual Orientation Not on file documented as of this encounter Miscellaneous Notes * Telephone Encounter - Bridget Bateman MA - 09/22/2024 1:30 PM CST Called pt LVM for CB. RSE UNIT OPERATOR * Result Encounter Note - Janneth Gomez LPN - 09/20/2024 9:29 AM REVERSE UNIT OPERATOR Call placed, no answer, lmtc RSE UNIT OPERATOR * Telephone Encounter - Janneth Gomez LPN - 09/19/2024 8:59 AM CST Call placed, no answer, lmtc. ----- Message from DAKOTAH Morales sent at 09/19/2024 7:39 AM REVERSE UNIT OPERATOR ----- Let pt know his echo looks fairly normal overall. His top chambers of his heart are mildly dilated.Normal ejection fraction. Recommend he see cardiology - we already did referral but I don't see that's he scheduled yet RSE UNIT OPERATOR RSE UNIT OPERATOR documented in this encounter Plan of Treatment Not on file documented as of this encounter Visit Diagnoses Not on filedocumented in this encounter Care Teams Manager Logistic Relationship Specialty Start Date End Date Sivan Boyd PA [address] [facility] [address] [place] [address] PCP - General Family Medicine 08/24/24 documented as of this encounter
--- OUTSIDE RECORDS SUMMARY | 2024-09-24 13:37 | XMS_ITS | Patient Health Summary ---
Author Organization [facility] Address [address] [place] [address] Care Team Providers Care White Lead Grinder Name Role Phone Godfrey Curry MD Primary Care Provider [phone] Dipika Reddy MD Unavailable [phone] [facility],non-owned Affiliates and Associated Physician Practices is amultiple site organization consisting of ambulatory clinics and hospital sitesin [place], [place], [place] and [place]. This disclosure is being madepursuant to the Care Everywhere program and may not contain all information available regarding this patient. Last updated 18.[facility] Allergies No known active allergies* Other,Inactive Medications [...] propionate (FLONASE) 50 MCG/ACT nasal spray(Started 05/19/2018) [place] 1 spray into each nostril once daily [...] BLOOD(Performed 11/12/2017) Performed for Liver disorder * [id number] BLOOD(Performed 11/12/2017) Performed for Liver disorder * [...] (Bezet) 424 ms CG MUSE Calculated P [place] 23 degrees CG MUSE Calculated R [place] -17 degrees CG MUSE Calculated T [place] 22 degrees CG MUSE Interpretation EKG Normal sinus rhythm with sinus arrhythmia Leftward axis No previous ECGs available Confirmed by MICHELET FABIAN ([id number]) on 11/01/2018 12:17:17 PM CG MUSE 10/25/2018 [...] - 16.0 gm/dL 01/20/2018 3:10 PM CDT [facility] Hematocrit 41.5 37.0 - 49.0 % 01/20/2018 3:10 PM CDT [facility] Blood BLOOD SPECIMEN / Unknown Venipuncture / Unknown 01/20/2018 2:51 PM CDT 01/20/2018 3:03 PM CDT Jose Rafael Thompson MD LAB - HEMATOLOGY ORD ERABLES [facility] [address] [place] [address] * US GUIDE NEEDLE PLACEMENT (01/20/2018 11:12 AM CDT) Narrative [facility] - 01/21/2018 9:35 AM CDT No Dictation. Jose Rafael Thompson MD US ORDERABLES [facility] [address] [place] [address] * VIRAL CULTURE MISC (01/20/2018 10:58 AM CDT) Viral Culture No virus isolated. 01/28/2018 8:41 AM CDT [facility] ([facility]) Microbiology NEEDLE BIOPSY OF LIVER / Unknown Collection / Unknown 01/20/2018 10:58 AM CDT 01/20/2018 11:14 AM CDT Narrative [facility] ([facility]) - 01/28/2018 8:41 AM CDT Performed at: [address] [place] [id number] Jig Hand: Wesley Jose MD, Phone: [phone] Jose Rafael Thompson MD LAB - MICROBIOLOGY O RDERABLES [facility] ([facility]) [address] [place] [address] * GROSS + MICRO EXAM (STL) (01/20/2018 10:36 AM CDT) Case Report Surgical Pathology Report Case: [id number] Authorizing Provider: Jose Rafael Thompson MD Collected: 01/20/2018 10:36 AM Ordering Location: ENDOSCOPY SERVICES Received: 01/20/2018 11:34 AM Pathologist: Judie Childs MD Specimen: Liver Needle Biopsy, please run EM on this specimen 01/21/2018 4:03 PM CDT [facility] Final Diagnosis Liver, needle biopsy (A): - Mild steatosis and lobular inflammation - No fibrosis 01/21/2018 4:03 PM T [facility] Clinical History The patient is a 17-year-old boy with elevated liver enzymes who underwent liver biopsy to rule out non-alcoholic steatohepatitis (RUTLEDGE). 01/21/2018 4:03 PM CDT [facility] Gross Description Submitted fixed in [...] possible electron microscopy. (CT/me) 01/21/2018 4:03 PM [facility] Microscopic Description 2 H&E slides; [...] of condensation. The PASD is negative for iknfm-3-lrrqfogmukw gobules but shows focal pigmented macrophages. The [...] non alcoholic steatohepatitis (RUTLEDGE). 01/21/2018 4:03 PM [facility] Disclaimer The performance characteristics of all immunohistochemical and indirect immunofluorescence stains (if any) cited in this report were determined by the Histopathology Laboratory of [facility]. Some of these tests were developed by [...] attending (teaching) pathologist. 01/21/2018 4:03 PM CDT [facility] Embedded Images 01/21/2018 4:03 PM CDT [facility] Pathology/Cytolo gy NEEDLE BIOPSY OF LIVER / Unknown 01/20/2018 10:36 AM CDT 01/20/2018 11:34 AM CDT Jose Rafael Thompson MD LAB - PATHOLOGY/CYTO LOGY ORDERABLES Performing Organization Address [facility] Co de Phone Number [facility] [address] [place] [address] * BLOOD TYPE VERIFICATION (01/20/2018 10:36 AM CDT) ABO A 01/20/2018 10:43 AM CDT [facility] Rh Type Positive 01/20/2018 10:43 AM CDT [facility] Blood Bank BLOOD SPECIMEN / Unknown Lab Venipuncture / Unknown 01/20/2018 10:36 AM CDT 01/20/2018 10:37 AM CDT Jose Rafael Thompson MD LAB - BLOOD BANK ORD ERABLES Performing Organization Address [facility] de Phone Number [facility] [address] [place] [address] * NEEDLE BIOPSY, LIVER (01/20/2018 9:30 AM CDT) Report Endoscopy POC _ Patient Name: Erick Triana Date of : 2000 Admit Type: Outpatient Age: 17 Gender: Male Attending MD: Jose Rafael Thompson MD Order #: [id number] _ Procedure: Liver biopsy Indications: Abnormal Liver [...] / concerns. Procedure Code(s): --- Professional --- 90440, Biopsy of liver, needle; percutaneous 44471, Ultrasonic guidance for needle placement (eg, biopsy, aspiration, injection, localization device), imaging supervision and interpretation --- Technical --- 43728, Biopsy of liver, needle; percutaneous 23796, Ultrasonic guidance for needle placement (eg, biopsy, aspiration, injection, localization device), imaging supervision and interpretation Diagnosis Code(s): --- Professional --- R74.9, Abnormal serum enzyme level, unspecified --- Technical --- R74.9, Abnormal serum enzyme level, unspecified CPT copyright 2015 [employer]. All rights reserved. The codes documented in this report are preliminary and upon milieu coordinator review may be revised to meet current compliance requirements. Dr. Jose Rafael Thompson Jose Rafael Thompson MD 01/20/2018 11:15:04 AM This report has been signed electronically. Number of Addenda: 0 Note Initiated On: 01/19/2018 9:30 AM Procedure Date: 01/20/2018 9:30:00 AM This report has been signed electronically. [facility] 01/20/2018 9:30 AM CDT Jose Rafael Thompson MD GI PROCEDURE ORDERAB LES Performing Organization Address City/[facility] Co de Phone Number [facility] [address] [place] [address] * PREPARE (CROSSMATCH) RBC UNIT(S), 1 Units (01/20/2018 9:15 AM CDT) Product Code [id number] [facility] Unit Donor # [id number] C [facility] ABO Donor Type A [facility] Rh Type Unit POS [facility] Unit Status Ret'd [facility] ABO Rh Type Unit APOS [facility] Donor Unit Expiration Date [id number] [facility] Blood Type Barcode [address] [facility] Blood Bank BLOOD SPECIMEN / Unknown 01/20/2018 9:15 AM CDT Jose Rafael Thompson MD LAB - BLOOD BANK ORD ERABLES Performing Organization Address City/[facility]/ZIP Co de Phone Number [facility] [address] [place] [address] * TYPE + SCREEN PANEL (01/20/2018 9:09 AM CDT) ABO A 01/20/2018 10:42 AM CDT [facility] Rh Type Positive 01/20/2018 10:42 AM CDT [facility] Comment:History checked. Antibody Screen Negative 01/20/2018 10:42 AM T [facility] Blood Bank BLOOD SPECIMEN / Unknown Venipuncture / Unknown 01/20/2018 9:09 AM CDT 01/20/2018 9:30 AM CDT Jose Rafael Thompson MD LAB - BLOOD BANK ORD ERABLES Performing Organization Address [facility]/ZIP Co de Phone Number [facility] [address] [place] [address] * (ABNORMAL) PT PTT PANEL (01/20/2018 9:09 AM CDT) PT 11.7(H) 9.5 - 11.6 sec 01/20/2018 10:12 AM T [facility] INR 1.1 0.9 - 1.1 01/20/2018 10:12 AM [facility] PTT 24.5 21.0 - 32.0 sec 01/20/2018 10:12 AM T [facility] Blood BLOOD SPECIMEN / Unknown Venipuncture / Unknown 01/20/2018 9:09 AM CDT 01/20/2018 9:31 AM CDT Narrative [facility] - 01/20/2018 10:12 AM CDT Conventional Warfarin Anticoagulant Therapy: INR Reference Range: 2.0-3.0 Intensive Warfarin Anticoagulant Therapy: INR Reference Range: 2.5-3.5 Heparin Therapeutic Range for PTT: 47.7 - 68.6 seconds. Jose Rafael Thompson MD LAB - COAGULATION OR DERABLES Performing Organization Address City/[facility]/ZIP Co de Phone Number [facility] [address] [place] [address] * (ABNORMAL) CBC W AUTO DIFFERENTIAL (01/20/2018 9:09 AM CDT) Only the most recent of3 resultswithin the time period is included. WBC 8.5 4.5 - 11.0 x10E9/L 01/20/2018 9:42 AM T [facility] WBC Corrected x10E9/L 01/20/2018 9:42 AM [facility] RBC 6.07(H) 4.50 - 5.30 x10E12/L 01/20/2018 9:42 AM [facility] Hemoglobin 16.3(H) 13.0 - 16.0 gm/dL 01/20/2018 9:42 AM [facility] Hematocrit 47.4 37.0 - 49.0 % 01/20/2018 9:42 AM [facility] MCV 78.1 78.0 - 98.0 fl 01/20/2018 9:42 AM [facility] MCH 26.9 25.0 - 35.0 pg 01/20/2018 9:42 AM [facility] MCHC 34.4 31.0 - 37.0 gm/dL 01/20/2018 9:42 AM [facility] Platelet Count 310 100 - 400 x10E9/L 01/20/2018 9:42 AM [facility] RDW-CV 12.8 11.5 - 14.0 % 01/20/2018 9:42 AM [facility] MPV 10.5(H) 6.0 - 9.5 fl 01/20/2018 9:42 AM [facility] Neutrophils % 49.3 31.0 - 78.0 % 01/20/2018 9:42 AM [facility] Lymphocytes % 36.9 13.0 - 54.0 % 01/20/2018 9:42 AM [facility] Monocytes % 7.8 4.0 - 13.0 % 01/20/2018 9:42 AM [facility] Eosinophils % 4.6 0.0 - 8.0 % 01/20/2018 9:42 AM [facility] Basophils % 0.7 % 01/20/2018 9:42 AM [facility] Immature Granulocytes 0.7 % 01/20/2018 9:42 AM [facility] Neutrophil Absolute 4.17 x10E9/L 01/20/2018 9:42 AM [facility] Lymphocytes Absolute 3.12 x10E9/L 01/20/2018 9:42 AM [facility] Monocytes Absolute 0.66 x10E9/L 01/20/2018 9:42 AM [facility] Eosinophils Absolute 0.39 x10E9/L 01/20/2018 9:42 AM CDT [facility] Basophils Absolute 0.06 x10E9/L 01/20/2018 9:42 AM CDT [facility] Immature Granulocytes Absolute 0.06 x10E9/L 01/20/2018 9:42 AM CDT [facility] nRBC Auto 0 /100 WBC 01/20/2018 9:42 AM CDT [facility] Blood BLOOD SPECIMEN / Unknown Venipuncture / Unknown 01/20/2018 9:09 AM CDT 01/20/2018 9:30 AM CDT Jose Rafael Thompson MD LAB - HEMATOLOGY ORD ERABLES [facility] [employer] [place] [address] * TISSUE TRANSGLUTAMINASE AB IGA (11/12/2017 9:57 AM CDT) Pathologist [facility] TTG Antibody IgA <2 0 - 3 U/mL 11/13/2017 3:11 PM CDT [facility] ([facility]) Comment: Negative 0 - 3 Weak Positive 4 - 10 Positive >10 Tissue Transglutaminase (tTG) has been identified as the endomysial antigen. Studies have demonstr- ated that endomysial IgA antibodies have over 99% specificity for gluten sensitive enteropathy. Blood BLOOD SPECIMEN / Unknown Lab Venipuncture / Unknown 11/12/2017 9:57 AM CDT 11/12/2017 10:52 AM CDT Narrative [facility] ([facility]) - 11/13/2017 3:11 PM CDT Performed at: [facility] [id number] Jig Hand: Carlos Aleman PhD, Phone: [phone] Jose Rafael Thompson MD LAB - SEROLOGY ORDER ASTRID [facility] ([facility]) [address] [place] [address] * (ABNORMAL) C-REACTIVE PROTEIN (11/12/2017 9:57 AM CDT) Pathologist [facility] C-Reactive Protein 1.00(H) <=0.50 mg/dL 11/12/2017 11:35 AM CDT [facility] Blood BLOOD SPECIMEN / Unknown Lab Venipuncture / Unknown 11/12/2017 9:57 AM CDT 11/12/2017 10:52 AM CDT Jose Rafael Thompson MD LAB - CHEMISTRY HILDA MARIO Performing Organization Address City/[facility]/ZIP Co de Phone Number [facility] [address] [place] [address] * LORI BLOOD SCREEN W/REFLEX TITER (11/12/2017 9:57 AM CDT) Pathologist [facility] LORI Negative Negative 11/13/2017 7:25 AM CDT [facility] Blood BLOOD SPECIMEN / Unknown Lab Venipuncture / Unknown 11/12/2017 9:57 AM CDT 11/12/2017 10:52 AM CDT Jose Rafael Thompson MD LAB - CHEMISTRY HILDA MARIO Performing Organization Address City/[facility] Co de Phone Number [facility] [address] [place] [address] * MICROSOMAL ANTIBODY LIVER/KIDNEY (11/12/2017 9:57 AM CDT) Pathologist [facility] Liver-Kidney Microsomal Antibody <1.0 0.0 - 20.0 Units 11/15/2017 4:20 PM CDT [facility] ([facility]) Comment: Negative 0.0 - 20.0 Equivocal 20.1 - 24.9 Positive >24.9 LKM type 1 antibodies are detected in patients with autoimmune hepatitis type 2 and in up to 8% of patients with chronic HCV infection. Blood BLOOD SPECIMEN / Unknown Lab Venipuncture / Unknown 11/12/2017 9:57 AM CDT 11/12/2017 10:52 AM CDT Narrative [facility] ([facility]) - 11/15/2017 4:20 PM CDT Performed at: [address] [place] [id number] Jig Hand: Carlos Aleman PhD, Phone: [phone] Jose Rafael Thompson MD LAB - CHEMISTRY HILDA MARIO Performing Organization Address City/[facility]/ZIP Co de Phone Number [facility] ([facility]) [address] [place] [address] * CERULOPLASMIN (11/12/2017 9:57 AM CDT) Ceruloplasmin 25 17 - 54 mg/dL 11/12/2017 11:56 AM CDT [facility] Blood BLOOD SPECIMEN / Unknown Lab Venipuncture / Unknown 11/12/2017 9:57 AM CDT 11/12/2017 10:52 AM CDT Jose Rafael Thompson MD LAB - CHEMISTRY HILDA MARIO Performing Organization Address City/[facility] Co de Phone Number [facility] [address] [place] [address] * [id number] BLOOD (11/12/2017 9:57 AM CDT) Coktd-8-Fhyjssw psin 147 90 - 200 mg/dL 11/13/2017 8:27 AM CDT [facility] ([facility]) Blood BLOOD SPECIMEN / Unknown Lab Venipuncture / Unknown 11/12/2017 9:57 AM CDT 11/12/2017 10:52 AM CDT Narrative [facility] ([facility]) - 11/13/2017 8:27 AM CDT Performed at: [address] [place] [id number] Jig Hand: Carlos Aleman PhD, Phone: [phone] Jose Rafael Thompson MD LAB - CHEMISTRY HILDA MARIO Performing Organization Address City/[facility] Co de Phone Number [facility] ([facility]) [address] [place] [address] * SMOOTH MUSCLE ANTIBODY (11/12/2017 9:57 AM CDT) Actin (Smooth Muscle) Antibody 5 0 - 19 Units 11/13/2017 5:07 PM CDT [facility] ([facility]) Comment: Negative 0 - 19 Weak positive 20 - 30 Moderate to strong positive >30 Actin Antibodies are found in 52-85% of patients with autoimmune hepatitis or chronic active hepatitis and in 22% of patients with primary biliary cirrhosis. Blood BLOOD SPECIMEN / Unknown Lab Venipuncture / Unknown 11/12/2017 9:57 AM CDT 11/12/2017 10:52 AM CDT Narrative [facility] ([facility]) - 11/13/2017 5:07 PM CDT Performed at: 01 - [facility] [address] [place], [place] [id number] Jig Hand: Carlos Aleman PhD, Phone: [phone] Jose Rafael Thompson MD LAB - SEROLOGY ORDER ASTRID Performing Organization Address City/[facility]/ZIP Co de Phone Number [facility] ([facility]) [address] [place] [address] * PTT (11/12/2017 9:57 AM CDT) PTT 25.3 21.0 - 32.0 sec 11/12/2017 11:24 AM CDT [facility] Blood BLOOD SPECIMEN / Unknown Lab Venipuncture / Unknown 11/12/2017 9:57 AM CDT 11/12/2017 10:52 AM CDT [facility] - 11/12/2017 11:24 AM CDT Heparin Therapeutic Range for PTT: 47.7 - 68.6 seconds. Jose Rafael Thompson MD LAB - COAGULATION OR DERABLES [facility] [address] [place] [address] * PT-INR (11/12/2017 9:57 AM CDT) PT 10.5 9.5 - 11.6 sec 11/12/2017 11:24 AM CDT [facility] INR 1.0 0.9 - 1.1 11/12/2017 11:24 AM CDT [facility] Blood BLOOD SPECIMEN / Unknown Lab Venipuncture / Unknown 11/12/2017 9:57 AM CDT 11/12/2017 10:52 AM CDT Narrative [facility] - 11/12/2017 11:24 AM CDT Conventional Warfarin Anticoagulant Therapy: INR Reference Range: 2.0-3.0 Intensive Warfarin Anticoagulant Therapy: INR Reference Range: 2.5-3.5 Jose Rafael Thompson MD LAB - COAGULATION OR DERABLES Performing Organization Address City/State/[facility] Co de Phone Number [facility] [address] [place] [address] * (ABNORMAL) COMPREHENSIVE METABOLIC PANEL (11/12/2017 9:57 AM CDT) Only the most recent of2 resultswithin the time period is included. [facility] [address] Glucose 85 70 - 105 mg/dL 11/12/2017 11:35 AM [facility] Sodium 140 136 - 145 mmol/L 11/12/2017 11:35 AM [facility] Potassium 4.1 3.5 - 5.1 mmol/L 11/12/2017 11:35 AM [facility] Chloride 104 98 - 107 mmol/L 11/12/2017 11:35 AM [facility] CO2 27 20 - 28 mmol/L 11/12/2017 11:35 AM [facility] Calcium 9.85 9.08 - 10.48 mg/dL 11/12/2017 11:35 AM [facility] Anion Gap 9 5 - 20 mmol/L 11/12/2017 11:35 AM [facility] BUN 17.4 5.3 - 18.7 mg/dL 11/12/2017 11:35 AM [facility] Creatinine 0.68 0.61 - 1.07 mg/dL 11/12/2017 11:35 AM [facility] Alkaline Phosphatase 76(L) 100 - 390 U/L 11/12/2017 11:35 AM [facility] ALT 176(H) 6 - 46 U/L 11/12/2017 11:35 AM [facility] AST 71(H) 3 - 35 U/L 11/12/2017 11:35 AM [facility] Protein Total 7.7 6.3 - 8.2 gm/dL 11/12/2017 11:35 AM [facility] Albumin 4.7 3.3 - 4.9 gm/dL 11/12/2017 11:35 AM [facility] Bilirubin Total 0.6 0.3 - 1.2 mg/dL 11/12/2017 11:35 AM [facility] eGFR by MDRD >60 mL/min/1.7 3m2 11/12/2017 11:35 AM [facility] Comment: eGFR calculations are not performed for children under 18 years old. eGFR by MDRD >60 mL/min/1.7 3m2 11/12/2017 11:35 AM T [facility] Comment: eGFR calculations are not performed for children under 18 years old. Blood BLOOD SPECIMEN / Unknown Lab Venipuncture / Unknown 11/12/2017 9:57 AM CDT 11/12/2017 10:52 AM CDT Jose Rafael Thompson MD LAB - CHEMISTRY HILDA MARIO Performing Organization Address City/[facility]/ZIP Co de Phone Number [facility] [address] [place] [phone] * GGT (11/12/2017 9:57 AM CDT) GGT 33 8 - 69 U/L 11/12/2017 11:35 AM T [facility] Blood BLOOD SPECIMEN / Unknown Lab Venipuncture / Unknown 11/12/2017 9:57 AM CDT 11/12/2017 10:52 AM CDT Jose Rafael Thompson MD LAB - CHEMISTRY HILDA MARIO [facility] [address] [place] [address] * CK BLOOD (11/12/2017 9:57 AM CDT) CK 180 30 - 200 U/L 11/12/2017 11:39 AM T [facility] Blood BLOOD SPECIMEN / Unknown Lab Venipuncture / Unknown 11/12/2017 9:57 AM CDT 11/12/2017 10:52 AM CDT Jose Rafael Thompson MD LAB - CHEMISTRY HILDA MARIO Performing Organization Address [facility]/ZIP Co de Phone Number [facility] [address] [place] [phone] * BILIRUBIN DIRECT (11/12/2017 9:57 AM CDT) Bilirubin Direct 0.39 0.11 - 0.64 mg/dL 11/12/2017 11:35 AM CDT [facility] Blood BLOOD SPECIMEN / Unknown Lab Venipuncture / Unknown 11/12/2017 9:57 AM CDT 11/12/2017 10:52 AM CDT Jose Rafael Thompson MD LAB - CHEMISTRY HILDA MARIO Performing Organization Address [facility] Co de Phone Number [facility] [address] [place] [address] * AMYLASE BLOOD (11/12/2017 9:57 AM CDT) Amylase 23 5 - 65 U/L 11/12/2017 11:35 AM CDT [facility] Blood BLOOD SPECIMEN / Unknown Lab Venipuncture / Unknown 11/12/2017 9:57 AM CDT 11/12/2017 10:52 AM CDT Jose Rafael Thompson MD LAB - CHEMISTRY HILDA MARIO Performing Organization Address [facility] Co de Phone Number [facility] [address] [place] [phone] * TSH (11/12/2017 9:57 AM CDT) TSH 1.06 0.35 - 4.95 uIU/mL 11/12/2017 11:56 AM CDT [facility] Blood BLOOD SPECIMEN / Unknown Lab Venipuncture / Unknown 11/12/2017 9:57 AM CDT 11/12/2017 10:52 AM CDT Jose Rafael Thompson MD LAB - CHEMISTRY HILDA MARIO Performing Organization Address City/[facility]/ZIP Co de Phone Number [facility] [address] [place] [address] * HEPATITIS SCREEN ACUTE (11/12/2017 9:57 AM CDT) [facility] [address] HAV Antibody IgM Non Reactive Non Reactive 11/12/2017 11:57 AM CDT [facility] HBsAg Non Reactive Non Reactive 11/12/2017 11:57 AM CDT [facility] HBc Antibody IgM Non Reactive Non Reactive 11/12/2017 11:57 AM CDT [facility] HCV Antibody Screen Non Reactive Non Reactive 11/12/2017 11:57 AM CDT [facility] HCV S/C Ratio 0.05 0.00 - 0.79 11/12/2017 11:57 AM CDT [facility] Comment: Opeoun-ig-yprlil ratio (S/CO) <0.80: Non Reactive Blood BLOOD SPECIMEN / Unknown Lab Venipuncture / Unknown 11/12/2017 9:57 AM CDT 11/12/2017 10:52 AM CDT Narrative [facility] - 11/12/2017 11:57 AM CDT Non Reactive - Antibodies to Hepatitis C virus (HCV) were not detected, result does not exclude early acute HCV infection. Jose Rafael Thompson MD LAB - CHEMISTRY HILDA MARIO Performing Organization Address [facility]/ZIP Co de Phone Number [facility] [address] [place] [address] * IGA BLOOD (11/12/2017 9:57 AM CDT) [facility] [address] IgA 92 63 - 484 mg/dL 11/12/2017 11:35 AM CDT [facility] Blood BLOOD SPECIMEN / Unknown Lab Venipuncture / Unknown 11/12/2017 9:57 AM CDT 11/12/2017 10:52 AM CDT Jose Rafael Thompson MD LAB - CHEMISTRY HILDA MARIO Performing Organization Address [facility]/ZIP Co de Phone Number [facility] [address] [place] [phone] * (ABNORMAL) TRIGLYCERIDES BLOOD (10/01/2017 4:[address] MANAGER) Triglycerides 32(L) 46 - 227 mg/dL 10/01/2017 5:[address]NAGER [facility] Blood BLOOD SPECIMEN / Unknown Lab Venipuncture / Unknown 10/01/2017 4:[address] MANAGER 10/01/2017 5:[address] MANAGER Valdo Pope Jr., MD LAB - CHEMISTRY ORDERABLES Performing Organization Address City/[facility]/ZIP Co de Phone Number [facility] [place] [address] * CULTURE FUNGUS SKIN HAIR NAIL+FUNGUS SMEAR (07/05/2017 1:[address] MANAGER) Culture No fungus isolated AUNDREA 08/03/2017 9:[address] MANAGER [facility] Fungus Smear No yeast or hyphae seen 08/03/2017 9:[address] MANAGER [facility] Microbiology TISSUE SPECIMEN FROM SKIN / Unknown Collection / Unknown 07/05/2017 1:[address] MANAGER 07/05/2017 2:[address] MANAGER Elena Eugene PA-C LAB - MICROBIOLOGY ORDERABLES Performing Organization Address [facility] Co de Phone Number [facility] [address] [place] [address], [facility] [phone] * CULTURE STAPH AUREUS+STREP A (01/20/2016 3:00 PM CDT) Culture Negative for Streptococcus Group A/Staphylococcus aureus AUNDREA 01/22/2016 5:49 AM CDT [facility] Microbiology TISSUE SPECIMEN FROM SKIN / Unknown 01/20/2016 3:00 PM CDT 01/20/2016 5:25 PM CDT Elena Eugene PA-C LAB - MICROBIOLOGY ORDERABLES Performing Organization Address [facility] Co de Phone Number [facility] [address] [place] [address], [facility] [phone] * STREP A SCREEN - POCT (IP) BEGABINO (07/12/2015 3:[address] MANAGER) Strep A Rapid POCT negative Negative [facility] QC Verified Yes Yes [facility] PO CT TESTING Throat swab (specimen) ENTIRE THROAT (SURFACE REGION OF NECK) / Unknown 07/12/2015 3:[address] MANAGER Sarika Aviles MD LAB - POINT OF CARE ORDERABLES Performing Organization Address [facility] de Phone Number [facility] PO[facility] TEST[facility] [address] [place] [address], [facility] [phone] * STREP A SCREEN DIRECT W RFLX STREP A CULTURE (02/04/2015 10:40 PM CDT) Only the most recent of3 resultswithin the time period is included. Strep A Rapid Negative Negative 02/04/2015 10:55 PM CDT [facility] Microbiology ENTIRE THROAT (SURFACE REGION OF NECK) / Unknown 02/04/2015 10:40 PM CDT 02/04/2015 10:45 PM CDT Narrative [facility] - 02/04/2015 10:55 PM CDT Test has reflexed to a Strep A culture. Joselyn Steward MD LAB - MICROB IOLOGY ORDERABLES Performing Organization Address [facility] de Phone Number [facility] [address] [place] [address] * CULTURE STREP GROUP A (02/04/2015 10:40 PM CDT) Only the most recent of3 resultswithin the time period is included. Culture Negative for Beta Hemolytic Streptococcus Group A AUNDREA 02/07/2015 7:16 AM CDT [facility] Microbiology ENTIRE THROAT (SURFACE REGION OF NECK) / Unknown 02/04/2015 10:40 PM CDT 02/04/2015 10:45 PM CDT Joselyn Steward MD LAB - MICROB IOLOGY ORDERABLES [facility] [address] [place], [place] [address], [facility] [phone] * XR ABD OBSTR SERIES (10/03/2014 12:[address] MANAGER) Anatomical Region Laterality Modality Abdomen Radiographic Christine ging 10/03/2014 7:[address] MANAGER Impressions 10/03/2014 7:[address] MANAGER Retained stool. Narrative 10/03/2014 7:[address] MANAGER Exam: Abdomen obstruction series History: 14-year-old [...] (ABNORMAL) URINALYSIS ROUTINE AUTO (10/02/2014 11:[address] MANAGER) Only the most recent of2 resultswithin the time period is included. Color UA Yellow Straw, Yellow, Dark Yellow 10/02/2014 11:28 PM [facility] Clarity UA Clear 10/02/2014 11:28 PM [facility] Specific [place] UA 1.015 1.005 - 1.030 10/02/2014 11:28 PM [facility] pH UA 6.0 5.0 - 8.0 pH 10/02/2014 11:28 PM [facility] Protein UA Negative Negative 10/02/2014 11:28 PM [facility] Blood UA Trace(A) Negative 10/02/2014 11:28 PM [facility] Leukocyte UA Negative Negative 10/02/2014 11:28 PM [facility] Nitrite UA Negative Negative 10/02/2014 11:28 PM [facility] Glucose UA Negative Negative 10/02/2014 11:28 PM [facility] Ketone UA Negative Negative 10/02/2014 11:28 PM [facility] Bilirubin UA Negative Negative 10/02/2014 11:28 PM [facility] Urobilinogen UA 0.2 0.1 - 1.0 EU/dL 10/02/2014 11:28 PM [facility] Urine URINE SPECIMEN OBTAINED BY CLEAN CATCH PROCEDURE / Unknown 10/02/2014 11:20 PM [facility] 10/02/2014 11:[address] MANAGER Marquise Wu MD LAB - URINALYSIS ORD ERABLES Performing Organization Address City/[facility] Co de Phone Number [facility] [address] [place] [address] * URINALYSIS MICROSCOPIC ONLY (10/02/2014 11:[address] MANAGER) Only the most recent of2 resultswithin the time period is included. RBC UA 2-5 0-2, 2-5 # /hpf 10/03/2014 12:13 AM [facility] WBC UA 0-2 0-2, 2-5 # /hpf 10/03/2014 12:13 AM [facility] Bacteria UA None Seen None Seen, Trace 10/03/2014 12:13 AM [facility] Epithelial Cell UA 0-2 0-2, 2-5 10/03/2014 12:13 AM [facility] Urine URINE SPECIMEN OBTAINED BY CLEAN CATCH PROCEDURE / Unknown 10/02/2014 11:[address] MANAGER 10/02/2014 11:[address] MANAGER Jazmin Mathews MD LAB - URINALYSIS ORD ERABLES Performing Organization Address City/[facility]/ZIP Co de Phone Number [facility] [address] [place] [phone] * (ABNORMAL) ALT (11/02/2013 4:26 PM CDT) ALT 348(H) 6 - 46 U/L 11/02/2013 5:14 PM CDT [facility] Blood BLOOD SPECIMEN / Unknown Lab Venipuncture / Unknown 11/02/2013 4:26 PM CDT 11/02/2013 4:42 PM CDT Ivet Hinton DO LAB - CHEMISTRY ORDFanny MARIO Performing Organization Address [facility] Co de Phone Number [facility] [address] [place] [phone] * (ABNORMAL) AST BLOOD (11/02/2013 4:26 PM CDT) AST 164(H) 3 - 35 U/L 11/02/2013 5:14 PM CDT [facility] Blood BLOOD SPECIMEN / Unknown Lab Venipuncture / Unknown 11/02/2013 4:26 PM CDT 11/02/2013 4:42 PM CDT Ivet Hinton LAB - CHEMISTRY ORDFanny MARIO Performing Organization Address [facility] Co de Phone Number [facility] [address] [place] [phone] * (ABNORMAL) LIPID PROFILE (11/02/2013 4:26 PM CDT) Cholesterol 70 <170 mg/dL 11/02/2013 5:14 PM CDT [facility] Triglycerides 109 42 - 330 mg/dL 11/02/2013 5:14 PM CDT [facility] HDL Cholesterol 31(L) >40 mg/dL 5:14 PM CDT [facility] LDL Calculated <20 <100 mg/dL 11/02/2013 5:14 PM CDT [facility] VLDL Calculated 22 12 - 38 mg/dL 11/02/2013 5:14 PM CDT [facility] Chol HDL Ratio 2.3 <=5.0 11/02/2013 5:14 PM CDT [facility] Blood BLOOD SPECIMEN / Unknown Lab Venipuncture / Unknown 11/02/2013 4:26 PM CDT 11/02/2013 4:42 PM CDT Narrative [facility] - 11/02/2013 5:14 PM CDT [...] - CHEMISTRY HILDA MARIO Performing Organization Address [facility] Co de Phone Number [facility] [employer] [place] [address] * GLUCOSE - POINT OF CARE (08/17/2013 3:[address] MANAGER) Blood BLOOD SPECIMEN / Unknown 08/17/2013 3:[address] MANAGER 08/18/2013 9:[address] MANAGER Batsheva Morataya APRN-ESTIMATOR AND DRAFTER LAB - POINT OF CARE ORDERABLES Performing Organization Address [facility] de Phone Number [facility] [employer] [place] [address] * CULTURE URINE (08/17/2013 3:[address] MANAGER) Pathologist [facility] Culture <10,000 CFU/mL normal urogenital brian 08/19/2013 6:[address] MANAGER [facility] Urine URINE SPECIMEN OBTAINED BY CLEAN CATCH PROCEDURE / Unknown 08/17/2013 3:[address] MANAGER 08/17/2013 3:[address] MANAGER Batsheva Morataya BUCKLE WIRE INSERTER-ESTIMATOR AND DRAFTER LAB - MICRO BIOLOGY ORDERABLES Performing Organization Address [facility] de Phone Number [facility] [address] [place] [address], [place] * LAB RESULTS ORDER (05/17/2012 10:08 AM CDT) Narrative Transcriptions Document, Scanned - 05/17/2012 10:08 AM CDT Scanned Document LAB - THERAPEUTIC DR LYLES MONITORING ORDERABLES * (ABNORMAL) FERRITIN (04/17/2011 10:55 AM CDT) Only the most recent of2 resultswithin the time period is included. Ferritin 124(H) 10 - 105 ng/ml [facility] BLOOD SPECIMEN / Unknown 04/17/2011 10:55 AM CDT 04/17/2011 10:59 AM CDT Daija Lewis MD LAB - CHEMISTRY HILDA MARIO [facility] [address] [facility] [place] [address] * PEDIATRIC DIAGNOSTIC POLYSOMNOGRAM (09/22/2010) Signed On Paper Physician [facility] Campbell JACOBSON * GROSS EXAM PATHOLOGY (04/01/2007 1:45 PM CDT) Result CASE NUMBER [id number] [facility] PATH REPORT Comment: ORDERING PHYSICIAN MARY [...] and interpreted by the attending (teaching) pathologist. Clinical Lab Specialist DAMIR MURPHY PATHOLOGIST Elie Rowan M.D. ELECTRONICALLY CHIVO Elie Rowan MISCELLANEOUS SAMPLES / Unknown 04/01/2007 1:45 PM CDT 04/01/2007 2:01 PM CDT Historical Provider LAB - PATHOLOGY/C YTOLOGY ORDERABLES [facility] PATH REPORT Care Teams White Lead Grinder Relationship Specialty Start Date End Date Godfrey Curry MD [address] [place] [address] PCP - General Pediatrics 05/01/14 Dipika Reddy MD [address] [place] [address] Resident Student Resident 11/27/15
--- OUTSIDE RECORDS SUMMARY | 2024-09-24 13:37 | XMS_ITS | Encounter Summary ---
Author Organization [facility] Address [address] [place] [address] Care Team Providers Care Assistant Distribution Manager Name Role Phone Godfrey Curry MD Primary Care Provider Dipika Reddy MD Unavailable [phone] Reason for Visit * Reason Onset Date Comments Concerns 02/03/2019 Encounter Details Date Type Department Care Team (Late st Contact Info) Description 02/03/2019 Telephone [facility] Pediatrics - [facility] Pediatrics [address] [place] [address] Godfrey Curry MD [address] [place] [phone] Concerns Social History Tobacco Use Types [...] a provider please call her back at [phone] Instructed that provider will call back at their earliest convenience. Jelly Moulton 1673 documented in this encounter Plan of Treatment Upcoming Encounters Date Type Department Care Team (Late st Contact Info) Description 09/25/2024 1:30 PM DBAS Office Visit [facility] - GI [address] [facility] [address] [place] [address] Genia Del Angel, MATT-SPRINKLER TENDER [address] [place] [address]. [address] [place] [address] documented as of this encounter Visit Diagnoses Not on filedocumented in this encounter Care Teams Assistant Distribution Manager Relationship Specialty Start Date End Date Labarge, Godfrey Zapata MD [facility] [place] [address] PCP - General Pediatrics 05/01/14 Dipika Reddy MD [address] [place] [address] Resident Student Resident 11/27/15 documented as of this encounter
--- OUTSIDE RECORDS SUMMARY | 2024-09-24 13:37 | XMS_ITS | Encounter Summary ---
Author Organization [facility] Address [address] [address] Care Team Providers Care Algologist Name Role Phone Godfrey Curry MD Primary Care Provider [phone] Dipika Reddy MD Unavailable Reason for Visit * Reason Onset Date Comments Refill Request 05/24/2017 Encounter Details Date Type Department Care Team (Late st Contact Info) Description 05/24/2017 Telephone [facility] Pediatrics - [facility] Pediatrics [address] [place] [address] Godfrey Curry MD [address] [place] [phone] Refill Request Social History Tobacco Use Types [...] Discussed that he needs to be seen forCC. Mother states that she will speak with [...] Provider Department Center 07/05/2017 1:00 PM Elena Eugene, EVELYN CGCMCDER CG [facility] documented in this encounter Plan of Treatment Upcoming Encounters Date Type Department Care Team (Late st Contact Info) Description 09/25/2024 1:30 PM SKIVER HAND Office Visit [facility] - [address] [place] [address] [address] [place] [address] Genia Del Angel, MATT-[address] [place] [phone] documented as of this encounter Visit Diagnoses Diagnosis Seasonal allergic rhinitis, unspecified chronicity, unspecified trigger documented in this encounter Care Teams Algologist Relationship Specialty Start Date End Date Godfrey Curry MD [address] [place] [phone] PCP - General Pediatrics 05/01/14 Dipika Reddy MD [address] [place] [phone] Resident Student Resident 11/27/15 documented as of this encounter
--- OUTSIDE RECORDS SUMMARY | 2024-09-24 13:37 | XMS_ITS | Clinical Summary ---
Author Organization [facility] Address [facility] [place] [address] Care Team Providers Care Data Librarian Name Role Phone None, Provider MD Primary Care Provider Unavaila ble Allergies No known active allergies Medications sucralfate (CARAFATE) 1 G tablet Take 1 tablet (1 g total) by mouth 4 (four) times daily before meals and nightly. 120 tablet 07/28/20 24 Active ondansetron (ZOFRAN) 4 MG tablet Take 1 tablet (4 mg total) by mouth every 8 (eight) hours as needed for Nausea. 7 tablet 07/28/20 24 Active hydrocortisone (ANUSOL-HC) [address] 1 suppository (25 mg total) rectally 2 (two) times daily for 10 days. 20 suppository 09/11/19 25 025 Encounters Date Type Department Care Team Description 09/13/2024 2:59 AM FACILITATOR - 09/13/2024 4:04 AM [facility] Emergency [facility] [place] [address] Dhruv Nettles MD Abdominal Pain Discharge Disposition: Home or Self Care (Routine Discharge) 09/13/2024 Travel 09/11/2024 8:40 PM FACILITATOR - 09/11/2024 8:52 PM [facility] Emergency [facility] [place] [address] Unique Cardenas PA Abdominal Pain Discharge Disposition: Home or Self Care (Routine Discharge) 09/11/2024 Travel 08/22/2024 7:17 AM FACILITATOR - 08/22/2024 11:59 PM FACILITATOR Hospital Encounter [facility] [place] [address] Adelita Goldstein PA-C Discharge Disposition: Home or Self Care (Routine Discharge) 08/22/2024 Travel 07/28/2024 11:56 PM FACILITATOR - 07/29/2024 12:27 AM FACILITATOR Emergency [facility] [place] [address] Unique Cardenas PA Dizziness Discharge Disposition: Home or Self Care (Routine Discharge) 07/28/2024 4:21 PM FACILITATOR - 07/28/2024 7:32 PM FACILITATOR Emergency [facility] [place] [address] Dhruv Nettles MD Nausea Discharge Disposition: Home [...] Sex Assigned at Male 08/22/2024 7:16 AM FACILITATOR Legal Sex Male 8:11 PM CDT Gender Identity Not on file Sexual Orientation Not on file Last Filed Vital Signs Vital Sign Reading Time Taken Comments Blood Pressure 182/107 09/13/2024 2:44 AM FACILITATOR Pulse 67 09/13/2024 2:44 AM FACILITATOR Temperature 36.2 C (97.1 F) 09/13/2024 2:44 AM FACILITATOR Respiratory Rate 20 09/13/2024 2:44 AM FACILITATOR Oxygen Saturation 99% 09/13/2024 2:44 AM FACILITATOR Inhaled Oxygen Concentration - - Weight 117.9 kg (260 lb) 09/13/2024 2:44 AM FACILITATOR Height 182.9 cm (6') 09/13/2024 2:44 AM FACILITATOR Body Mass Index 35.26 09/13/2024 2:44 AM FACILITATOR Plan of Treatment Health Maintenance Due Date [...] 07/24/2011 Hepatitis B Vaccines Completed 12/04/2015, 01/19/2002, 01/19/2002, Additional history exists Hepatitis C Completed 11/12/2017 Meningococcal Vaccine Completed 05/24/2019 , 07/24/2011, 07/24/2011 Meningococcal B Vaccine Aged Out No l onger eligible based on patient's age to complete this topic RSV Immunizations Under 20 Months Aged Out No longer eligible based on patient's age to complete this topic Procedures Procedure Name Priority Date/Time Associated Diagnosis Comments COMPREHENSIVE METABOLIC PANEL STAT 09/13/2024 2:49 AM FACILITATOR CBC W/DIFF AUTOMATED STAT 09/13/2024 2:49 AM FACILITATOR NM GASTRIC EMPTYING STUDY Routine 08/22/2024 10:44 AM FACILITATOR Functional dyspepsia TSH W/REFLEX STAT 07/28/2024 4:24 PM FACILITATOR MAGNESIUM STAT 07/28/2024 4:24 PM FACILITATOR COMPREHENSIVE METABOLIC PANEL STAT 07/28/2024 4:24 PM FACILITATOR CBC W/DIFF AUTOMATED STAT 07/28/2024 4:24 PM FACILITATOR from Last 3 Months Results * (ABNORMAL) COMPREHENSIVE METABOLIC PANEL (09/13/2024 2:49 AM FACILITATOR) Only the most recent of2 resultswithin the time period is included. [facility] Signature GLUCOSE 112(H) 70 - 99 MG/DL 09/13/2024 3:40 AM [facility] BUN 8 7 - 18 MG/DL 09/13/2024 3:40 AM [facility] CREATININE S/P/B 0.82 0.7 - 1.3 MG/DL 09/13/2024 3:40 AM [facility] SODIUM S/P/B 136 136 - 145 MMOL/L 09/13/2024 3:40 AM [facility] POTASSIUM S/P/B 3.5 3.5 - 5.1 MMOL/L 09/13/2024 3:40 AM [facility] CHLORIDE S/P/B 103 97 - 115 MMOL/L 09/13/2024 3:40 AM [facility] CO2 31.2 21 - 32 MMOL/L 09/13/2024 3:40 AM [facility] CALCIUM S/P/B 10.3(H) 8.5 - 10.1 MG/DL 09/13/2024 3:40 AM [facility] BILIRUBIN TOTAL S/P/B 0.7 0.2 - 1.2 MG/DL 09/13/2024 3:40 AM [facility] Comment: THIS ASSAY IS NOT RECOMMENDED FOR PATIENTS UNDERGOING TREATMENT WITH ELTROMBOPAG DUE TO THE POTENTIAL FOR FALSELY ELEVATED RESULTS. TOTAL PROTEIN S/P/B 7.8 6.4 - 8.2 G/DL 09/13/2024 3:40 AM [facility] ALBUMIN S/P/B 4.4 3.4 - 5.0 G/DL 09/13/2024 3:40 AM [facility] AST 15 15 - 37 U/L 09/13/2024 3:40 AM [facility] ALT 38 16 - 60 U/L 09/13/2024 3:40 AM [facility] ALKALINE PHOSPHATASE S/P/B 62 50 - 136 U/L 09/13/2024 3:40 AM [facility] ANION GAP 1.8(L) 2 - 10 MMOL/L 09/13/2024 3:40 AM [facility] BUN CREATININE RATIO 9.7 6 - 26 09/13/2024 3:40 AM [facility] A/G RATIO 1.3 1.0 - 2.0 RATIO 09/13/2024 3:40 AM [facility] GFR ESTIMATE >90 >90 ML/MIN/1.7 3 M2 09/13/2024 3:40 AM [facility] Comment: NOTE: eGFR is not calculated for patients <18 years of age or gender unknown. This is an estimated GFR calculation using the new CKD EPI creatinine equation without race and so does not require a correction factor for race. This estimated GFR should not be used for calculating drug doses. 09/13/2024 2:49 AM FACILITATOR Dhruv Nettles MD LABORATORY Final Result [facility] [address] [place] [address], [place] [phone] * (ABNORMAL) CBC W/DIFF AUTOMATED (09/13/2024 2:49 AM FACILITATOR) Only the most recent of2 resultswithin the time period is included. WBC 7.29 4.5 - 11.0 x10'3/uL 09/13/2024 3:02 AM [facility] RBC 5.46 4.70 - 6.10 x10'6/uL 09/13/2024 3:02 AM [facility] HGB 14.7 14.0 - 18.0 G/DL 09/13/2024 3:02 AM [facility] HCT 42.6(L) 43.0 - 54.0 % 09/13/2024 3:02 AM [facility] MCV 78.0(L) 80.0 - 94.0 FL 09/13/2024 3:02 AM [facility] MCH 26.9(L) 27.0 - 31.0 PG 09/13/2024 3:02 AM [facility] MCHC 34.5 32.0 - 36.0 G/DL 09/13/2024 3:02 AM [facility] RDW 13.3 11.5 - 14.5 % 09/13/2024 3:02 AM [facility] PLT 299 130 - 400 x10'3/uL 09/13/2024 3:02 AM [facility] MPV 10.0 9.3 - 12.2 FL 09/13/2024 3:02 AM [facility] DIFFERENTIAL TYPE AUTOMATED DIFFERENTIAL 09/13/2024 3:02 AM [facility] NEUTROPHILS % 56.4 % 09/13/2024 3:02 AM [facility] LYMPHOCYTES % 32.6 % 09/13/2024 3:02 AM [facility] MONOCYTES % 7.3 % 09/13/2024 3:02 AM [facility] EOSINOPHILS 2.9 % 09/13/2024 3:02 AM [facility] BASOPHILS 0.4 % 09/13/2024 3:02 AM [facility] IMMATURE GRANS % 0.4 % 09/13/19 25 3:02 AM FACILITATOR [facility] ABS. NEUTROPHILS 4.11 1.80 - 7.70 x10'3/uL 09/13/2024 3:02 AM FACILITATOR [facility] ABS. LYMPHOCYTES 2.38 1.00 - 4.80 x10'3/uL 09/13/2024 3:02 AM FACILITATOR [facility] ABS. MONOCYTES 0.53 0.30 - 0.82 x10'3/uL 09/13/2024 3:02 AM FACILITATOR [facility] ABS. EOSINOPHILS 0.21 0.04 - 0.54 x10'3/uL 09/13/2024 3:02 AM FACILITATOR [facility] ABS. BASOPHILS 0.03 0.01 - 0.08 x10'3/uL 09/13/2024 3:02 AM FACILITATOR [facility] ABS. IMMATURE GRANULOCYTES 0.03 0.00 - 0.49 x10'3/uL 09/13/2024 3:02 AM FACILITATOR [facility] 09/13/2024 2:49 AM FACILITATOR Dhruv Nettles MD LABORATORY Final Result [facility] [address] [place] [address], * NM GASTRIC EMPTYING STUDY (08/22/2024 10:44 AM FACILITATOR) Anatomical Region Laterality Modality Abdomen Nuclear Medicine 08/22/2024 11:1 7 AM FACILITATOR Impressions 08/22/2024 11:20 AM FACILITATOR IMPRESSION: Normal gastric emptying study. Referred By: ADELITA GOLDSTEIN Interpreted By: Gino Morataya MD, 08/22/2024 11:17 AM Narrative 08/22/2024 11:20 AM FACILITATOR [address] [address] Gastric Emptying Scintigraphy Exam date: 08/22/2024. Indications: [...] Procedure Note Gino Morataya MD - 08/22/[address] [address] Gastric Emptying Scintigraphy Exam date: 08/22/2024. Indications: [...] By: Gino Morataya MD, 08/22/2024 11:17 AM Adelita Goldstein PA-C NUC MED Final Re sult * TSH W/REFLEX (07/28/2024 4:24 PM FACILITATOR) TSH 0.836 0.358 - 3.74 uIU/ML 07/28/2024 5:16 PM FACILITATOR [facility] Comment: HIGH DOSES OF BIOTIN MAY INTERFERE WITH THIS TEST RESULT. CORRELATION TO CLINICAL HISTORY AND PRESENTATION RECOMMENDED. FREE T4 NOT INDICATED 07/28/2024 4:24 PM FACILITATOR Unique CLAIRE LABORATORY Final Result [facility] [address] [place] [address], [place] [phone] * MAGNESIUM (07/28/2024 4:24 PM FACILITATOR) MAGNESIUM 2.1 1.8 - 2.4 MG/DL 07/28/2024 5:16 PM FACILITATOR [facility] 07/28/2024 4:24 PM FACILITATOR [facility]AT[facility] Final Result [facility] [address] [place] [address], [place] [phone] from Last 3 Months Insurance [employer] Care Teams Data Librarian Relationship Specialty Start Date End Date None, Provider, PCP - General 09/19/19
--- OUTSIDE RECORDS SUMMARY | 2024-09-24 13:38 | XMS_ITS | Referral Summary ---
Author Organization [facility] Address [facility] [place] [address] Care Team Providers Care Financial Sales Manager Name Role Phone Sivan Boyd Primary Care Provider + Encounters Date Type Department Care Team Description 09/22/2024 12:46 PM PUTTY REMOVER - 09/22/2024 11:59 PM PUTTY REMOVER Hospital Encounter [facility] Nuclear Medicine [address] [place] [address] [phone] Abdominal pain; Elevated LFTs Discharge Disposition: Discharge to home or self care 09/19/2024 Results Follow-Up [facility] Medicine [address] [phone] Sivan Boyd PA 09/18/2024 1:47 PM PUTTY REMOVER - 09/18/2024 11:59 PM PUTTY REMOVER Hospital Encounter [facility] Cardiac Testing [address] [place] [address] [phone] Dizziness; Bradycardia; Abnormal EKG; Near syncope; New daily persistent headache Discharge Disposition: Discharge to home or self care 09/12/2024 12:44 AM PUTTY REMOVER - 09/12/2024 3:09 AM PUTTY REMOVER Emergency [facility] Emergency Department [address] [place] [address] [phone] Idris Crespo Jr., MD Gastrointestinal hemorrhage, unspecified gastrointestinal hemorrhage type (Primary Dx) Discharge Disposition: Discharge to home or self care 09/11/2024 Telephone [facility] Family Medicine [address] [phone] Sivan Boyd PA 09/11/2024 2:00 PM PUTTY REMOVER Office Visit [facility] [address] [phone] Sivan Boyd PA Rectal bleeding (Primary Dx); Abdominal pain; Bradycardia; Near syncope; Visual changes; UTI symptoms; Elevated liver enzymes; Belching; Hypercalcemia; Low serum parathyroid hormone (PTH); Anxiousness 09/06/2024 2:43 PM PUTTY REMOVER - 09/06/2024 3:49 PM [facility] Emergency Department [address] [place] [phone] Kev Ackerman MD Left arm pain (Primary Dx) Discharge Disposition: Discharge to home or self care 09/05/2024 10:54 AM PUTTY REMOVER - 09/05/2024 11:59 PM [facility] Cardiac Testing [address] [place] [phone] Bradycardia Discharge Disposition: Discharge to home or self care 09/04/2024 Telephone [facility] Gastroenterology at [address] [place] [phone] Omar Dao MD 08/28/2024 Orders Only [facility] Gastroenterology at [address] [place] [address] Omar Dao MD Weight loss (Primary Dx); Nausea and vomiting, unspecified vomiting type; Abdominal pain 08/27/2024 8:13 AM PUTTY REMOVER - 08/27/2024 11:03 AM [facility] Emergency Department [address] [place] [phone] Mello Ariza MD Abdominal pain (Primary Dx) Discharge Disposition: Discharge to home or self care 08/24/2024 12:30 PM PUTTY REMOVER Office Visit [facility] Medicine [address] [place] [phone] Sivan Boyd PA Dizziness (Primary Dx); Bradycardia; Abnormal EKG; Near syncope; New daily persistent headache; Diverticulosis 08/08/2024 10:30 AM PUTTY REMOVER - 08/08/2024 12:50 PM [facility] Emergency [facility] Emergency Department [facility] [place] [address] Intermittent abdominal pain (Primary Dx); Dizziness Discharge Disposition: Discharge to home or self care 08/05/2024 3:40 PM PUTTY REMOVER - 08/05/2024 9:54 PM [facility] Emergency [facility] Emergency Department [address] [place] [address] Epigastric pain (Primary Dx); Strain of neck muscle, initial encounter Discharge Disposition: Discharge to home or self care from Last 3 Months Allergies No known active allergies Medications cyclobenzaprine (FLEXERIL) 10 mg tablet Take 1 tablet (10 mg total) by mouth 2 (two) times a day as needed for muscle spasms 20 tablet 5 09/11/19 25 Discontinu ed(Therapy completed) meclizine (ANTIVERT) 25 mg tablet Take 1 tablet (25 mg total) by mouth 3 (three) times a day as needed for dizziness 30 tablet 5 09/11/19 25 Discontinu ed(Therapy completed) ciprofloxacin (CIPRO) 500 mg tablet Take 1 tablet (500 mg total) by mouth 2 (two) times a day for 7 days 14 tablet 5 08/28/19 Discontinu ed(Therapy completed) metroNIDAZOLE (FLAGYL) 500 mg tablet Take 1 tablet (500 mg total) by mouth 3 (three) times a day for 7 days 21 tablet 5 08/28/19 25 Discontinu ed(Therapy completed) azithromycin (ZITHROMAX) 250 mg tablet Take 2 tabs (500 mg) by mouth today, than 1 tab (250 mg) daily for 4 days. 6 tablet 5 09/11/19 25 Discontinu ed(Therapy completed) polyethylene glycol (GoLYTELY) 236-22.74-6.74 -5.86 gram solutionIndicat ions:Weight loss,Nausea and vomiting, unspecified vomiting type,Abdominal pain Take 4,000 mL by mouth once for 1 dose 4000 mL 5 08/28/19 25 Active Problems Problem Noted Date Diagnosed Date Weight loss 08/28/2024 Nausea and vomiting 08/28/2024 Abdominal pain 08/28/2024 Diverticulosis 08/25/2024 Assessment & Plan (08/25/2024 12:48 PM PUTTY REMOVER): Diverticulosis seen on CT of the abdomen/pelvis. [...] enzymes 11/10/201708/24 Viral URI 07/12/2015 08/24/2024 Immunizations Immunization Administration Dates Next Due DTaP 03/19/2006, 2,01/17/2001,11/15,2000 HPV, Quadrivalent 08/08/2012,09/25/2011,07/24/20 11 Hep A, Ped Unspecified 03/19/2006,10/08/2004 Hep B / HiB 2000,2000 Hep B, Adolescent or Pediatric 12/04/2015,2000,2000 Hep B, Unspecified 01/19/2002 Hib (PRP-OMP) 01/19/2002,2000,2000 IPV 03/19/2006, 1,2000,09/14 Influenza, Quadrivalent, Spl it, Preservative Free, Intramuscular 07/12/2015 Influenza, Trivalent, IM (MDV) 08/17/2013 Influenza, Unspecified 09/11/2024(Deferr ed: Patient Refused),05/19/2024(Deferred: Patient decision),05/19/2023(Deferred: Patient decision),05/02/2023(Deferred: Patient Refused),06/23/2011 MMR 03/19/2006,07/22/2001 Meningococcal Conjugate (Menveo) 07/24/2011 Meningococcal [...] on file Legal Sex Male 12:57 PM PUTTY REMOVER Gender Identity Not on file Sexual Orientation Not on file Last Filed Vital Signs Vital Sign Reading Time Taken Comments Blood Pressure 129/79 09/12/2024 3:05 AM PUTTY REMOVER Pulse 62 09/12/2024 3:05 AM PUTTY REMOVER Temperature 36.2 C (97.2 F) 09/12/2024 12:08 AM PUTTY REMOVER Respiratory Rate 16 09/12/2024 3:05 AM PUTTY REMOVER Oxygen Saturation 99% 09/12/2024 3:05 AM PUTTY REMOVER Inhaled Oxygen Concentration - - Weight 119.6 kg (263 lb 10.7 oz) 2024 12:08 AM PUTTY REMOVER Height 182.9 cm (6') 09/11/2024 1:58 PM PUTTY REMOVER Body Mass Index 35.76 09/11/2024 1:58 PM PUTTY REMOVER Plan of Treatment Not on file Procedures Procedure Name Priority Date/Time Associated Diagnosis Comments NM HEPATOBILIARY IMAGING W PHARMACEUTICAL INTERVENTION Schedule Routine, Read Routine (OP Routine) 09/22/2024 3:27 PM PUTTY REMOVER Abdominal pain Elevated LFTs TRANSTHORACIC ECHO (TTE) COMPLETE W DOPPLER/CF WO CONTRAST Routine 09/18/2024 2:26 PM PUTTY REMOVER Dizziness Bradycardia Abnormal EKG Near syncope New daily persistent headache CTA ABDOMEN PELVIS W WO CONTRAST ED 09/12/2024 1:29 AM PUTTY REMOVER EGFR STAT 09/12/2024 12:16 AM PUTTY REMOVER DIFFERENTIAL AUTO STAT 09/12/2024 12: 16 AM PUTTY REMOVER LIPASE STAT 09/12/2024 12:16 AM PUTTY REMOVER COMPREHENSIVE METABOLIC PANEL STAT 09/12/2024 12:16 AM PUTTY REMOVER CBC WITH AUTO DIFFERENTIAL STAT 09/12/2024 12:16 AM PUTTY REMOVER URINE CULTURE Routine 09/11/2024 2:21 PM PUTTY REMOVER UTI symptoms POCT URINALYSIS DIPSTICK Routine 09/11/2024 2:20 PM PUTTY REMOVER UTI symptoms HM COLONOSCOPY Routine 09/07/2024 HOLTER MONITOR 24 HR Routine 09/05/2024 11:09 AM PUTTY REMOVER Bradycardia FERRITIN Routine 08/31/2024 1:45 PM PUTTY REMOVER IRON PROFILE W/ IBC Routine 08/31/2024 1 :45 PM PUTTY REMOVER HEMOGLOBIN A1C Routine 08/31/2024 1:45 PM PUTTY REMOVER Screening for diabetes mellitus VITAMIN B12 Routine 08/31/2024 1:45 PM PUTTY REMOVER Encounter for vitamin deficiency screening VITAMIN D 25 HYDROXY Routine 08/31/2024 1:45 PM PUTTY REMOVER Hypercalcemia Encounter for vitamin deficiency screening COMPREHENSIVE METABOLIC PANEL Routine 08/31/2024 1:45 PM PUTTY REMOVER Hypercalcemia PTH Routine 08/31/2024 1:45 PM PUTTY REMOVER Hypercalcemia CTA ABDOMEN PELVIS W WO CONTRAST ED 08/27/2024 9:33 AM PUTTY REMOVER TROPONIN T HIGH-SENSITIVITY 2-HOUR Timed 08/27/2024 8:24 AM PUTTY REMOVER URINALYSIS AND REFLEX TO MICROSCOPIC AND CULTURE STAT 08/27/2024 6:51 AM PUTTY REMOVER ECG 12-LEAD STAT 08/27/2024 6:45 AM PUTTY REMOVER EGFR STAT 08/27/2024 6:41 AM PUTTY REMOVER DIFFERENTIAL AUTO STAT 08/27/2024 6:4 1 AM PUTTY REMOVER PROTIME-INR STAT 08/27/2024 6:41 AM PUTTY REMOVER THYROID FUNCTION CASCADE STAT 08/27/2024 6:41 AM PUTTY REMOVER TROPONIN T HIGH-SENSITIVITY SERIES (BASELINE, 2HR, 4HR, 6HR) STAT 08/27/2024 6:41 AM PUTTY REMOVER SEPSIS LACTATE WITH REFLEX STAT 08/27/2024 6:41 AM PUTTY REMOVER LIPASE STAT 08/27/2024 6:41 AM PUTTY REMOVER COMPREHENSIVE METABOLIC PANEL STAT 08/27/2024 6:41 AM PUTTY REMOVER CBC WITH AUTO DIFFERENTIAL STAT 08/27/2024 6:41 AM PUTTY REMOVER EGFR STAT 08/08/2024 9:27 AM PUTTY REMOVER DIFFERENTIAL AUTO STAT 08/08/2024 9:2 7 AM PUTTY REMOVER LIPASE STAT 08/08/2024 9:27 AM PUTTY REMOVER COMPREHENSIVE METABOLIC PANEL STAT 08/08/2024 9:27 AM PUTTY REMOVER CBC WITH AUTO DIFFERENTIAL STAT 08/08/2024 9:27 AM PUTTY REMOVER URINALYSIS AND REFLEX TO MICROSCOPIC AND CULTURE STAT 08/08/2024 9:[address] ABDOMEN PELVIS W CONTRAST ED 08/05/2024 6:19 PM PUTTY REMOVER EGFR STAT 08/05/2024 5:15 PM PUTTY REMOVER DIFFERENTIAL AUTO STAT 08/05/2024 5:1 5 PM PUTTY REMOVER URINALYSIS AND REFLEX TO MICROSCOPIC STAT 08/05/2024 5:15 PM PUTTY REMOVER LIPASE STAT 08/05/2024 5:15 PM PUTTY REMOVER COMPREHENSIVE METABOLIC PANEL STAT 08/05/2024 5:15 PM PUTTY REMOVER CBC WITH AUTO DIFFERENTIAL STAT 08/05/2024 5:15 PM PUTTY REMOVER from Last 3 Months Results * NM Hepatobiliary Imaging W GBEF (09/22/2024 3:27 PM PUTTY REMOVER) Anatomical Region Laterality Modality Body N/A Nuclear Medicine 09/22/2024 3:33 PM PUTTY REMOVER Narrative 09/22/2024 3:41 PM PUTTY REMOVER EXAM DESCRIPTION: NM HEPATOBILIARY IMAGING W PHARMACEUTICAL [...] Collins Sawant M.D. CH: BHARAT Report ID: [id number] Reading Location: [id number] Procedure Note Collins Sawant Jr., MD - [...] Collins Sawant M.D. CH: BHARAT Report ID: [id number] Reading Location: [id number] Sivan CLAIRE IMG NM PROCEDURES Final Result * TRANSTHORACIC ECHO (TTE) COMPLETE W DOPPLER/CF WO CONTRAST (09/18/2024 2:26 PM PUTTY REMOVER) LV EF 57 % CONS SCIMAGE Anatomical Region Laterality Modality Ultrasound 09/18/2024 1:50 PM PUTTY REMOVER Narrative 09/18/2024 8:28 PM PUTTY REMOVER Transthoracic Echocardiographic Report Patient Name: ERICK PIERRE L : 2000 (24y 1m) Gender: M Study Date: 09/18/2024 01:50:54 PM Ht(Inch): 72 Wt(Lb): 263.01 BSA: 2.46 Laboratory Animal Facility Supervisor: Christy Medellin RDCS Order Provider: SIVAN BOYD Heart Rate: 64 BMI: 35.67 BP: 130 / 80 Ref Provider: SIVAN BOYD PROCEDURES: Echocardiographic Report: ([id number]) Transthoracic complete echo, 2D, spectral and tissue Doppler, color flow Doppler, M-mode. INDICATIONS: R42 Dizziness and giddiness, R00.1 Bradycardia, unspecified, R94.31 Abnormal electrocardiogram (ECG) (EKG), R55 Syncope and collapse, and G44.52 New daily persistent headache (ndph). FINDINGS: Left Ventricle: Normal left ventricular cavity size. Normal left ventricular systolic function. The Ejection Fraction is visually estimated to be 57 %. Diastolic Function Left ventricular diastolic function is normal, mitral inflow pattern is Normal and E to E' ratio <8 suggesting normal pulmonary wedge pressure and no LV diastolic dysfunction. No Thrombus noted in Left Ventricle. Regional Wall Motion: There are no regional wall motion abnormalities. Right Ventricle: Normal right ventricular size. Normal right ventricular systolic function. Left Atrium: Mildly dilated left atrium. Right Atrium: Mildly dilated right atrium. Atrial Septum: The interatrial septum is normal in appearance. Mitral Valve: Normal mitral valve leaflet structure. No mitral regurgitation seen. No stenosis present. The mitral valve area by pressure half-time is 3.3 cm2. Aortic Valve: Trileaflet aortic valve. No aortic valve stenosis. There is no echocardiographic evidence of aortic valve vegetation. The aortic valve area by the continuity equation (using Peak Ash) is 2.49 cm2. Tricuspid Valve: The Tricuspid Valve is grossly normal. No tricuspid regurgitation seen. The estimated right ventricular systolic pressure is 23 mmHg. Pulmonic Valve: Pulmonic Valve not well visualized due to poor echo windows. Pericardium: Normal pericardium without evidence of pericardial effusion. Aorta: Normal aortic root. IVC: IVC is normal in size. The estimated RA pressure is 3 mmHg. CONCLUSIONS: 1. The Ejection Fraction is visually estimated to be 57 %. MEASUREMENTS: 2D/MM Value Range Doppler Value LVIDd 2D 5.57 cm [ 3.50 - 5.70 ] AV Peak Ash 1.41 m/s LVIDs 2D 3.60 cm [ 3.10 - 4.60 ] AV Peak PG 7.95 mmHg IVSd 2D 0.98 cm [ 0.60 - 1.20 ] LVOT Peak Ash 1.12 m/s LVPWd 2D 0.98 cm [ 0.60 - 1.10 ] LVOT Peak PG 5.02 mmHg LV Thickness Ratio 1.00 LVOT Diam 2.00 cm LV Mass 2D 217.58 g KEHINDE Vmax 2.49 cm2 LV Mass Index 2D 88.45 g/m2 MV E Peak Ash 0.75 m/s RWT 0.35 MV A Peak Ash 0.52 m/s Visually Estimated EF 57 % MV E/A 1.40 ratio LA Dimension 2D 4.30 cm [ 1.90 - 4.00 ] MV PHT 67.00 ms LA Length 2C 5.88 cm MVA PHT 3.28 cm2 LA Length 4C 6.11 cm MV Decel Time 228.00 msec LA Volume BP 60.90 ml Med E` Ash 9.90 cm/sec LA Volume Index 24.76 ml/m2 [ 16.00 - 34.00 ] Lat E` Ash 14.70 cm/sec AoR Diam 2D 3.20 cm [ 2.00 - 3.70 ] Average E/E` 6.10 Ao Root Index 1.30 cm/m2 [ 1.00 - 2.00 ] TV Peak Ash 0.65 m/s TV Peak PG 1.69 mmHg RV S` 14.40 cm/sec TR Peak Ash 2.23 m/s TR Peak PG 19.9 mmHg RA Pressure 3.00 mmHg RVSP 22.90 mmHg PV Peak Ash 1.59 m/s PV Peak PG 10.11 mmHg - ATTESTATION: I have reviewed and interpreted the pertinent images and measurements of this study. I attest to the conclusions in the final report that is provided above. DISCLAIMER: The study images and the final report will be retained in the patient chart by the Echo Laboratory for the legally required time period. This chart constitutes the legal record of any testing performed. Electronically Signed By: Sultan Michael NORTON 09/18/2024 8:27:56 PM PUTTY REMOVER Procedure Note Sultan Mary Carmen Rodriguez MD - 09/18/2024 Transthoracic Echocardiographic Report Patient Name: ERICK PIERRE L : 2000 (24y 1m) Gender: M Study Date: 09/18/2024 01:50:54 PM Ht(Inch): 72 Wt(Lb): 263.01 BSA: 2.46 Laboratory Animal Facility Supervisor: Christy Medellin RDCS Order Provider: SIVAN BOYD Heart Rate: 64 BMI: 35.67 BP: 130 / 80 Ref Provider: SIVAN BOYD PROCEDURES: Echocardiographic Report: ([id number]) Transthoracic complete echo, 2D,spectral and tissue Doppler, color flow Doppler, M-mode. INDICATIONS: R42 Dizziness and giddiness, R00.1 Bradycardia, unspecified, R94.31Abnormal electrocardiogram (ECG) (EKG), R55 Syncope and collapse, and G44.52 Newdaily persistent headache (ndph). FINDINGS: Left Ventricle: Normal left ventricular cavity size. Normal leftventricular systolic function. The Ejection Fraction is visually estimated to be 57 %.Diastolic Function Left ventricular diastolic function is normal, mitral inflow pattern is Normaland E to E' ratio <8 suggesting normal pulmonary wedge pressure and no LV diastolicdysfunction. No Thrombus noted in Left Ventricle. Regional Wall Motion: There are no regional wall motion abnormalities. Right Ventricle: Normal right ventricular size. Normal right ventricularsystolic function. Left Atrium: Mildly dilated left atrium. Right Atrium: Mildly dilated right atrium. Atrial Septum: The interatrial septum is normal in appearance. Mitral Valve: Normal mitral valve leaflet structure. No mitralregurgitation seen. No stenosis present. The mitral valve area by pressure half-time is 3.3cm2. Aortic Valve: Trileaflet aortic valve. No aortic valve stenosis. There isno echocardiographic evidence of aortic valve vegetation. The aortic valvearea by the continuity equation (using Peak Ash) is 2.49 cm2. Tricuspid Valve: The Tricuspid Valve is grossly normal. No tricuspidregurgitation seen. The estimated right ventricular systolic pressure is 23 mmHg. Pulmonic Valve: Pulmonic Valve not well visualized due to poor echowindows. Pericardium: Normal pericardium without evidence of pericardialeffusion. Aorta: Normal aortic root. IVC: IVC is normal in size. The estimated RA pressure is 3 mmHg. CONCLUSIONS: 1. The Ejection Fraction is visually estimated to be 57 %. MEASUREMENTS: 2D/MM Value Range DopplerValue LVIDd 2D 5.57 cm [ 3.50 - 5.70 ] AV Peak Vel1.41 m/s LVIDs 2D 3.60 cm [ 3.10 - 4.60 ] AV Peak PG7.95 mmHg IVSd 2D 0.98 cm [ 0.60 - 1.20 ] LVOT Peak Vel1.12 m/s LVPWd 2D 0.98 cm [ 0.60 - 1.10 ] LVOT Peak PG5.02 mmHg LV Thickness Ratio 1.00 LVOT Diam2.00 cm LV Mass 2D 217.58 g KEHINDE Vmax2.49 cm2 LV Mass Index 2D 88.45 g/m2 MV E Peak Vel0.75 m/s RWT 0.35 MV A Peak Vel0.52 m/s Visually Estimated EF 57 % MV E/A1.40 ratio LA Dimension 2D 4.30 cm [ 1.90 - 4.00 ] MV PHT67.00 ms LA Length 2C 5.88 cm MVA PHT3.28 cm2 LA Length 4C 6.11 cm MV Decel Kakx413.00 msec LA Volume BP 60.90 ml Med E` Vel9.90 cm/sec LA Volume Index 24.76 ml/m2 [ 16.00 - 34.00 ] Lat E` Vel14.70 cm/sec AoR Diam 2D 3.20 cm [ 2.00 - 3.70 ] Average E/E`6.10 Ao Root Index 1.30 cm/m2 [ 1.00 - 2.00 ] TV Peak Vel0.65 m/s TV Peak PG 1.69 mmHg RV S` 14.40 cm/sec TR Peak Ash 2.23 m/s TR Peak PG 19.9 mmHg RA Pressure 3.00 mmHg RVSP 22.90 mmHg PV Peak Ash 1.59 m/s PV Peak PG 10.11 mmHg - ATTESTATION: I have reviewed and interpreted the pertinent images and measurements ofthis study. I attest to the conclusions in the final report that is provided above. DISCLAIMER: The study images and the final report will be retained in the patientchart by the [facility] Laboratory for the legally required time period. This chart constitutesthe legal record of any testing performed. Electronically Signed By: Sultan Michael NORTON 09/18/2024 8:27:56 PM PUTTY REMOVER Sivan CLAIRE CV ECHO PROCEDURES Final Result * CTA Abdomen Pelvis (09/12/2024 1:29 AM PUTTY REMOVER) Anatomical Region Laterality Modality Body N/A Computed Tomogra phy 09/12/2024 1:43 AM PUTTY REMOVER Narrative 09/12/2024 1:48 AM PUTTY REMOVER EXAM DESCRIPTION: CTA ABDOMEN PELVIS REASON FOR STUDY: Lower GI bleed Pt arrives complaining of a mixture of bright red and dark stools . Pt reports periods of dizziness as well. Pt states this started yesterday morning. Its been a mix and I have been getting dizzy prior to this episode. Pt reports recent EGD and colonoscopy with no acute findings. Skin pwd. TECHNIQUE: CTA scan of the abdomen and [...] optimization technique for this examination. CONTRAST TYPE/DOSE: 100mL of IOVERSOL 350 MG IODINE/ML INTRAVENOUS SYRINGE injected via intravenous COMPARISON: 08/27/2024 FINDINGS: VASCULAR: Normal. LOWER CHEST: Lung bases are clear. Heart size normal. No effusion. LIVER/BILIARY: Liver unremarkable. Biliary tree normal in caliber. GALLBLADDER: Normal. SPLEEN: Normal. PANCREAS: Normal. ADRENAL GLANDS: Normal. KIDNEYS/URINARY TRACT: Normal. GI: No obstruction or inflammation. OTHER ABDOMINAL/PELVIS: Unremarkable. MSK: Unremarkable. BODY WALL: Unremarkable. IMPRESSION: No abnormality identified to account for presentation. THIS IS AN ELECTRONICALLY VERIFIED FINAL REPORT 09/12/2024 1:48 AM - Electronically signed by Patric Schaefer M.D. AR: ANDRIY Report ID: [id number] Reading Location: [place] [id number] Procedure Note Patric Schaefer MD - 09/12/2024 EXAM DESCRIPTION: CTA ABDOMEN PELVIS REASON FOR STUDY: Lower GI bleed Pt arrives complaining of a mixture of bright red and dark stools . Ptreports periods of dizziness as well. Pt states this started yesterday morning. Its been a mix and I have been getting dizzy prior to this episode. Ptreports recent EGD and colonoscopy with no acute findings. Skin pwd. TECHNIQUE: CTA scan of the abdomen and [...] optimization technique for this examination. CONTRAST TYPE/DOSE: 100mL of IOVERSOL 350 MG IODINE/ML INTRAVENOUSSYRINGE injected via intravenous COMPARISON: 08/27/2024 FINDINGS: VASCULAR: Normal. LOWER CHEST: Lung bases are clear. Heart size normal. No effusion. LIVER/BILIARY: Liver unremarkable. Biliary tree normal in caliber. GALLBLADDER: Normal. SPLEEN: Normal. PANCREAS: Normal. ADRENAL GLANDS: Normal. KIDNEYS/URINARY TRACT: Normal. GI: No obstruction or inflammation. OTHER ABDOMINAL/PELVIS: Unremarkable. MSK: Unremarkable. BODY WALL: Unremarkable. IMPRESSION: No abnormality identified to account for presentation. THIS IS AN ELECTRONICALLY VERIFIED FINAL REPORT 09/12/2024 1:48 AM - Electronically signed by Patric Schaefer M.D. AR: ANDRIY Report ID: [id number] Reading Location: [place] [address] PROCEDURES Final Re sult * eGFR (09/12/2024 12:16 AM PUTTY REMOVER) eGFR >90 >=60 mL/min/1. 73 m2 Comment: [...] was last reviewed 2021. Testing performed by: [address] [address] Blood 09/12/2024 12:1 6 AM PUTTY REMOVER 09/12/2024 12:39 AM PUTTY REMOVER Xiomy CLA[facility] LAB BLOOD ORDERABLES Final Result [facility] [address] Department [place] [address] * Differential, auto (09/12/2024 12:16 AM PUTTY REMOVER) Neutrophil abs 4.9 1.5 - 6.5 K/cumm Comment:Testing performed by : [address] [address] Imm gran abs 0.1 0.0 - 0.1 K/cumm [facility] Comment:Testing performed by : [address] [address] Lymphocyte abs 2.6 0.8 - 3.3 K/cumm APURVA Comment:Testing performed by : [address] [address] Monocyte abs 0.6 0.2 - 0.8 K/cumm [facility] Comment:Testing performed by : [address] [address] Eosinophil abs 0.2 0.0 - 0.5 K/cumm [facility] Comment:Testing performed by : [address] [address] Basophil abs 0.0 0.0 - 0.1 K/cumm [facility] Comment:Testing performed by : [address] [address] Neutrophil pct 58.0 % [facility] Comment: Interpretive Data Percent cell count reference ranges are not reported, since discordance with absolute values may lead to misinterpretation of CBC data. Current Interpretive Data was last revised on 2017. Testing performed by: [address] [address] Imm gran pct 0.6 % [facility] Comment: Interpretive Data Percent cell count reference ranges are not reported, since discordance with absolute values may lead to misinterpretation of CBC data. Current Interpretive Data was last revised on 2017. Testing performed by: [address] [address] Lymphocyte pct 31.0 % [facility] Comment: Interpretive Data Percent cell count reference ranges are not reported, since discordance with absolute values may lead to misinterpretation of CBC data. Current Interpretive Data was last revised on 2017. Testing performed by: [address] [address] Monocyte pct 7.3 % [facility] Comment: Interpretive Data Percent cell count reference ranges are not reported, since discordance with absolute values may lead to misinterpretation of CBC data. Current Interpretive Data was last revised on 2017. Testing performed by: [address] [address] Eosinophil pct 2.6 % [facility] Comment: Interpretive Data Percent cell count reference ranges are not reported, since discordance with absolute values may lead to misinterpretation of CBC data. Current Interpretive Data was last revised on 2017. Testing performed by: [address] [address] Basophil pct 0.5 % [facility] Comment: Interpretive Data Percent cell count reference ranges are not reported, since discordance with absolute values may lead to misinterpretation of CBC data. Current Interpretive Data was last revised on 2017. Testing performed by: [address] [address] Blood 09/12/2024 12:1 6 AM PUTTY REMOVER 09/12/2024 12:34 AM PUTTY REMOVER Xiomy CLAIRE LAB BLOOD ORDERABLES Final Result [facility] [address] [place] [address] * (ABNORMAL) CBC with auto differential (09/12/2024 12:16 AM PUTTY REMOVER) Pathologist [facility] WBC 8.4 3.8 - 9.9 K/cumm Comment:Testing performed by : [address], [address] Hgb 14.9 13.0 - 17.5 g/dL [facility] Comment:Testing performed by : [address], [address] Hct 41.9 38.9 - 50.3 % [facility] Comment:Testing performed by : [address], [address] Plt 305 150 - 400 K/cumm APURVA Comment:Testing performed by : [address], [address] MPV 10.5 9.1 - 12.3 fL APURVA Comment:Testing performed by : [address], [address] RBC 5.36 4.30 - 5.80 M/cumm APURVA Comment:Testing performed by : [address], [address] MCV 78.2(L) 81.3 - 96.4 fL APURVA Comment:Testing performed by : [address], [address] MCH 27.8 27.1 - 33.3 pg AP[facility]VA Comment:Testing performed by : [address], [address] MCHC 35.6 32.3 - 35.7 g/dL APURVA Comment:Testing performed by : [address], [address] RDW CV 13.3 11.1 - 14.9 % APURVA Comment:Testing performed by : [address], [address] RDW SD 37.3 35.7 - 48.1 fL AP[facility]VA Comment:Testing performed by : [address], [address] NRBC abs 0.00 0.00 - 0.01 K/cumm APURVA Comment:Testing performed by : [address], [address] Blood (Blood, Venous) 09/12/2024 12:16 AM PUTTY REMOVER 09/12/2024 12:34 AM PUTTY REMOVER Idris Crespo Jr., MD LAB BLOOD ORDERABLES Fi nal Result Performing Organization Address [facility] de Phone Number [id number] [address] * Lipase (09/12/2024 12:16 AM PUTTY REMOVER) Pathologist [facility] Lipase 24 10 - 99 Units/L Comment:Testing performed by : [address] [address] Blood (Blood, Venous) 09/12/2024 12:16 AM PUTTY REMOVER 09/12/2024 12:34 AM PUTTY REMOVER Idris Crespo Jr., MD LAB BLOOD ORDERABLES Fi nal Result Performing Organization Address [facility] de Phone Number [id number] [address] * Comprehensive metabolic panel (09/12/2024 12:16 AM PUTTY REMOVER) [facility] Sodium 141 135 - 145 mmol/L Comment:Testing performed by : [address] [address] Potassium, pl 3.8 3.3 - 4.9 mmol/L APURVA Comment:Testing performed by : [address] [address] Chloride 103 97 - 110 mmol/L APURVA Comment:Testing performed by : [address] [address] CO2 27 22 - 32 mmol/L AP[facility]VA Comment:Testing performed by : [address] [address] Anion gap 11 2 - 15 mmol/L AP[facility]VA Comment:Testing performed by : [address] [address] BUN 12 6 - 25 mg/dL [facility]VA Comment:Testing performed by : [address] [address] Creatinine 0.82 0.80 - 1.30 mg/dL AP[facility]VA Comment:Testing performed by : [address] [address] Glucose 108 70 - 199 mg/dL [facility] Comment: Interpretive Data Fasting glucose >/= 126 [...] was last revised 2022. Testing performed by: [address] [address] Calcium 10.2 8.5 - 10.3 mg/dL APURVA Comment:Testing performed by : [address] [address] Bilirubin, total 0.4 0.1 - 1.2 mg/dL [facility] Comment:Testing performed by : [address] [address] Protein, pl 7.8 6.5 - 8.5 g/dL [facility] Comment:Testing performed by : [address] [address] Albumin 4.9 3.5 - 5.0 g/dL [facility] Comment:Testing performed by : [address] [address] Alk phos 65 40 - 130 Units/L AP[facility]VA Comment:Testing performed by : [address] [address] ALT 35 7 - 55 Units/L AP[facility]VA Comment:Testing performed by : [address] [address] AST 22 10 - 50 Units/L [facility]VA Comment:Testing performed by : [address] [address] Blood 09/12/2024 12:1 6 AM PUTTY REMOVER 09/12/2024 12:34 AM PUTTY REMOVER Result [facility] Idris Crespo Jr., MD LAB BLOOD ORDERABLES Fi nal Result APURVA [facility] Department [place] [address] * Urine culture Urine, clean voided (09/11/2024 2:21 PM PUTTY REMOVER) Urine culture flatev [facility] Comment: CULTURE, URINE, ROUTINE Micro Number: [id number] Test Status: Final Specimen Source: Urine Specimen Quality: Adequate Result: No Growth Urine, clean voided 09/11/2024 2:21 PM PUTTY REMOVER 09/12/2024 3:07 AM PUTTY REMOVER Result [facility] Sivan CLAIRE LAB MICROBIOLOGY - GENER AL ORDERABLES Final Result Performing Organization Address City/[facility]/ZIP Co de Phone Number [facility] [address] [place] [address] * POCT urinalysis dipstick (09/11/2024 2:20 PM PUTTY REMOVER) Color, Urine, POC Light Yellow Clarity, ur, POC Clear Clear Glucose, ur, POC Negative Negative MG/DL Bilirubin, ur, POC Negative Negative, Small, Moderate, Large Ketones, ur, POC Negative Negative Specific [place], POC 1.020 1.003 - 1.030 Blood, ur, POC Negative Negative pH, ur, POC 8.0 5.0 - 8.0 Protein, ur, POC Negative Negative Urobilinogen, urine, POC 0.2 0.2 - 1.0 mg/dL Nitrite, ur, POC Negative Negative Leukocytes, ur, POC Negative Negative Lot Number [id number] Urine 09/11/2024 2:20 PM PUTTY REMOVER Result [facility] Sivan CLAIRE POINT OF CARE TEST ORDER ASTRID Final Result * HM COLONOSCOPY (09/07/2024) us Historical Provider HEALTH MAINTENANCE Final Result * 24 HR Holter Monitor (09/05/2024 11:09 AM PUTTY REMOVER) Anatomical Region Laterality Modality Electrocardiogra phy Narrative 09/08/2024 4:25 PM PUTTY REMOVER Patient Id: Erick Pierre is a 24 y.o. male. MR#: [id number] Date of the procedure: September 05, 2024 Diagnosis: Bradycardia Findings: 24 hour Holter done on the 05 September 2024 showed a sinus rhythm at baseline. Heart rate varies from 39 beats per minute 152 beats per minute. Average heart rate is 65 beats per minute. Rhythm is bradycardia for 42% of the time and tachycardic for 2% of the time. No atrial fibrillation noted. One PVC noted. During minimum and maximum heart rate rhythm is sinus rhythm. Maximum RR interval is 1.5 seconds. No ventricular or supraventricular tachycardia noted. Patient did not report any symptoms. Copy to Sivan Boyd PA 09/08/2024 Sivan CLAIRE [facility] Final Result * Iron profile w/ IBC (08/31/2024 1:45 PM PUTTY REMOVER) Pathologist [facility] Iron 91 50 - 195 mcg/dL [facility] TIBC 294 250 - 425 mcg/dL (calc) [facility] Iron saturation 31 20 - 48 % (calc) [facility] 08/31/2024 1:45 PM PUTTY REMOVER 08/31/2024 1:45 PM PUTTY REMOVER Sivan CLAIRE LAB BLOOD ORDERABLES Fin al Result [facility] [address] [place] [address] * Vitamin D 25 hydroxy (08/31/2024 1:45 PM PUTTY REMOVER) Pathologist [facility] Vitamin D 25-OH 58 30 - 100 ng/mL [facility] Comment: Vitamin D Status 25-OH Vitamin D: Deficiency: <20 ng/mL Insufficiency: 20 - 29 ng/mL Optimal: > or = 30 ng/mL For 25-OH Vitamin D testing on patients on D2-supplementation and patients for whom quantitation of D2 and D3 fractions is required, the QuestAssureD(TM) 25-OH VIT D, (D2,D3), LC/MS/MS is recommended: order code 04786 (patients >2yrs). See Note 1 Note 1 For additional information, please refer to http://education.Manjrasoft/faq/LUV444 (This link is being provided for informational/ educational purposes only.) Blood 08/31/2024 1:45 PM PUTTY REMOVER 08/31/2024 1:45 PM PUTTY REMOVER Sivan CLAIRE LAB BLOOD ORDERABLES Fin al Result Performing Organization Address [facility] Co de Phone Number [facility] [address] [place] [address] * (ABNORMAL) PTH (08/31/2024 1:45 PM PUTTY REMOVER) Pathologist [facility] Parathyroid hormone, intact 12(L) 16 - 77 pg/mL [facility] Comment: Interpretive Guide Intact PTH Calcium ------- Normal Parathyroid Normal Normal Hypoparathyroidism Low or Low Normal Low Hyperparathyroidism Primary Normal or High High Secondary High Normal or Low Tertiary High High Non-Parathyroid Hypercalcemia Low or Low Normal High Blood 08/31/2024 1:45 PM PUTTY REMOVER 08/31/2024 1:45 PM PUTTY REMOVER Sivan CLAIRE LAB BLOOD ORDERABLES Fin al Result Performing Organization Address [facility] Co de Phone Number [facility] [address] [facility] [address] * Hemoglobin A1c (08/31/2024 1:45 PM PUTTY REMOVER) Pathologist [facility] Hgb A1C 4.8 <5.7 % of total Hgb [facility] Comment: For the purpose of screening for the presence of diabetes: <5.7% Consistent with the absence of diabetes 5.7-6.4% Consistent with increased risk for diabetes (prediabetes) > or =6.5% Consistent with diabetes This assay result is consistent with a decreased risk of diabetes. Currently, no consensus exists regarding use of hemoglobin A1c for diagnosis of diabetes in children. According to [place] [employer] (ADA) guidelines, hemoglobin A1c <7.0% represents optimal control in non- diabetic patients. Different metrics may apply to specific patient populations. Standards of Medical Care in Diabetes(ADA). Blood 08/31/2024 1:45 PM PUTTY REMOVER 08/31/2024 1:45 PM PUTTY REMOVER Sivan CLAIRE LAB BLOOD ORDERABLES Fin al Result Performing Organization Address City/[facility]/ZIP Co de Phone Number [facility] [address] [place] [address] * Ferritin (08/31/2024 1:45 PM PUTTY REMOVER) Ferritin 279 38 - 380 ng/mL [facility] 08/31/2024 1:45 PM PUTTY REMOVER 08/31/2024 1:45 PM PUTTY REMOVER Sivan CLAIRE LAB BLOOD ORDERABLES Fin al Result Performing Organization Address City/[facility]/ZIP Co de Phone Number [facility] [address] [place] [address] * Vitamin B12 (08/31/2024 1:45 PM PUTTY REMOVER) Vitamin B12 769 200 - 1,100 pg/mL [facility] Blood 08/31/2024 1:45 PM PUTTY REMOVER 08/31/2024 1:45 PM PUTTY REMOVER Sivan CLAIRE LAB BLOOD ORDERABLES Fin al Result Performing Organization Address City/[facility]/ZIP Co de Phone Number [facility] [address] [facility] [address] * (ABNORMAL) Comprehensive metabolic panel (08/31/2024 1:45 PM PUTTY REMOVER) Glucose 93 65 - 99 mg/dL [facility] Comment: Fasting reference interval BUN 13 7 - 25 mg/dL [facility] Creatinine 0.86 0.60 - 1.24 mg/dL [facility] eGFR 124 > OR = 60 mL/min/1.7 3m2 [facility] BUN/creat ratio SEE NOTE: 6 - 22 (calc) [facility] Comment: Not Reported: BUN and Creatinine are within reference range. Sodium 138 135 - 146 mmol/L [facility] Potassium, pl 4.4 3.5 - 5.3 mmol/L [facility] Chloride 101 98 - 110 mmol/L [facility] CO2 26 20 - 32 mmol/L [facility] Calcium 10.1 8.6 - 10.3 mg/dL [facility] Protein, sr 7.3 6.1 - 8.1 g/dL [facility] Albumin 5.1 3.6 - 5.1 g/dL [facility] GLOBULIN 2.2 1.9 - 3.7 g/dL (calc) [facility] Alb/glob ratio 2.3 1.0 - 2.5 (calc) [facility] Bilirubin, total 0.6 0.2 - 1.2 mg/dL [facility] Alk phos 46 36 - 130 U/L [facility] AST 25 10 - 40 U/L [facility] ALT (SGPT) 50(H) 9 - 46 U/L [facility] Blood 08/31/2024 1:45 PM PUTTY REMOVER 08/31/2024 1:45 PM PUTTY REMOVER us Sivan CLAIRE LAB BLOOD ORDERABLES Fin al Result [facility] [address] [place] [address] * CTA Abdomen Pelvis (08/27/2024 9:33 AM PUTTY REMOVER) Anatomical Region Laterality Modality Body N/A Computed Tomogra phy 08/27/2024 10:0 4 AM PUTTY REMOVER Narrative 08/27/2024 10:17 AM PUTTY REMOVER EXAM DESCRIPTION: CTA ABDOMEN PELVIS REASON FOR [...] is a late venous phase. Per the certified ophthalmic technologist the bolus tracking never triggered. Repeat [...] thickening. Normal appendix. No significant diverticular disease. Mutf-ro-yfjpmfpf colonic stool burden may represent mild constipation [...] Ramon White M.D. MM: MM Report ID: [id number] Reading Location: [id number] Procedure Note Ramon White MD - 08/27/2024 [...] a.m. is a latevenous phase. Per the certified ophthalmic technologist the bolus tracking never triggered.Repeat contrast [...] wall thickening. Normalappendix. No significant diverticular disease. Hdzv-sa-ldmhhyrr colonic stoolburden may represent mild constipation in [...] Ramon White M.D. MM: MM Report ID: [id number] Reading Location: [place] [address] us Mello Ariza MD IMG CT PROCEDURES F inal Result * Troponin T high-sensitivity 2-hour (08/27/2024 8:24 AM PUTTY REMOVER) Trop T hs <6 <=22 ng/L Comment: Interpretive Data For further hscTnT resources including the diagnostic algorithm and an aid in interpretation, copy and paste this link: https://nrl.testcatalog.org/show/hsTrop Current Interpretive Data last revised 2020. Testing performed by: [address] [address] Trop T hs delta 0 ng/L APURVA GIANG Comment:Testing performed by : [address] [address] Trop T hs interp Insignificant APURVA GIANG Comment:Testing performed by : [address] [address] Blood 08/27/2024 8:24 AM PUTTY REMOVER 08/27/2024 8:26 AM PUTTY REMOVER us Mello Ariza MD LAB BLOOD ORDERABLE S Final Result AP[facility]VA [address] Department [place] [address] * Urinalysis reflex to microscopic and culture Urine (08/27/2024 6:51 AM PUTTY REMOVER) Color, ur Straw Yellow Comment:Testing performed by : [address] [address] Clarity, ur Clear Clear APURVA GIANG Comment:Testing performed by : [address] [address] Specific gravity, ur 1.006 1.003 - 1.030 APURVA GIANG Comment:Testing performed by : [address] [address] pH, urine 6.0 APURVA GIANG Comment: Interpretive Data U rine pH is affected by diet, medications, systemic acid-base disturbances, and renal tubular function. pH may affect urinary stone formation. For example, urine pH below 6.0 may help reduce the tendency for calcium phosphate stones and pH greater than 6.0 may reduce the tendency for uric acid stone formation. Source: [facility] HCI Current Interpretive Data was last revised on 2017 Testing performed by: [facility], [address] [place] [address], [place]., [address] Protein, ur ql Negative Negative APURVA Comment:Testing performed by : [address], [place]., [address] Glucose, ur ql Negative Negative APURVA Comment:Testing performed by : [address], [place]., [address] Ketones, ur Negative Negative AP[facility]VA Comment:Testing performed by : [address], [place]., [address] Bilirubin, ur Negative Negative [facility]VA Comment:Testing performed by : [address], [place]., [address] Blood, ur Negative Negative [facility]VA Comment:Testing performed by : [address], [place]., [address] Urobilinogen, ur <2.0 <2.0 mg/dL [facility] Comment:Testing performed by : [address], [place]., [address] Nitrite, ur Negative Negative [facility]VA Comment:Testing performed by : [address], [place]., [address] Leukocyte esterase, ur Negative Negative [facility]VA Comment:Testing performed by : [address], [place]., [address] UA reflex comment Reflex conditions for microscopic UA and culture not met. APURVA Comment:Testing performed by : [address], [place]., [address] Urine 08/27/2024 6:51 AM PUTTY REMOVER 08/27/2024 6:56 AM PUTTY REMOVER us Mello Ariza MD LAB MICROBIOLOGY - GENERAL ORDERABLES Final Result APURVA GIANG [address] [place] [address] * ECG 12 lead (08/27/2024 6:45 AM PUTTY REMOVER) Ventricular Rate EKG/Min 50 BPM [facility] Atrial Rate 50 BPM [facility] NV-Interval (MSEC) 168 ms [facility] QRS-Interval (MSEC) 112 ms [facility] QT-Interval (MSEC) 416 ms [facility] QTc 379 ms [facility] P [place] 13 degrees [facility] R [place] -16 degrees [facility] T [place] 2 degrees [facility] Diagnosis Sinus bradycardia with sinus arrhythmia Incomplete right bundle branch block Moderate voltage criteria for LVH, may be normal variant Borderline ECG No previous ECGs available Confirmed by TIMOTHY BEAUCHAMP M.D. ([id number]) on 08/28/2024 8:33:23 PM [facility] 08/27/2024 6:45 AM PUTTY REMOVER 08/28/2024 8:33 PM PUTTY REMOVER us Mello Ariza MD ECG ORDERABLES Fin al Result Performing Organization Address City/[facility]/ZIP Co de Phone Number [facility] * Troponin T high-sensitivity series (baseline, 2hr, 4hr, 6hr) (08/27/2024 6:41 AM PUTTY REMOVER) Pathologist [facility] Trop T hs <6 <=22 ng/L Comment: Interpretive Data For further hscTnT resources including the diagnostic algorithm and an aid in interpretation, copy and paste this link: https://nrl.testcatalog.org/show/hsTrop Current Interpretive Data last revised 2020. Testing performed by: [facility], [address] [place] [address]., [address] Blood 08/27/2024 6:41 AM PUTTY REMOVER 08/27/2024 6:56 AM PUTTY REMOVER us Mello Ariza MD LAB BLOOD ORDERABLE S Final Result [facility] [address] [place] [address] * Sepsis Lactate w/ Reflex (08/27/2024 6:41 AM PUTTY REMOVER) Pathologist [facility] Sepsis Lactate 0.9 0.7 - 2.0 mmol/L Comment:Testing performed by : [address] [address] Blood 08/27/2024 6:41 AM PUTTY REMOVER 08/27/2024 6:56 AM PUTTY REMOVER us Mello Ariza MD LAB BLOOD ORDERABLE S Final Result APURVA MH [address] [facility] [place] [address] * eGFR (08/27/2024 6:41 AM PUTTY REMOVER) [facility] eGFR >90 >=60 mL/min/1. 73 m2 Comment: [...] was last reviewed 2021. Testing performed by: [address] [address] Blood 08/27/2024 6:41 AM PUTTY REMOVER 08/27/2024 6:56 AM PUTTY REMOVER us Mello Ariza MD LAB BLOOD ORDERABLE S Final Result [facility] [address] Department [place] [address] * Differential, auto (08/27/2024 6:41 AM PUTTY REMOVER) Neutrophil abs 4.7 1.5 - 6.5 K/cumm Comment:Testing performed by : [address] [address] Imm gran abs 0.0 0.0 - 0.1 K/cumm APURVA Comment:Testing performed by : [address] [address] Lymphocyte abs 2.4 0.8 - 3.3 K/cumm APURVA Comment:Testing performed by : [address] [address] Monocyte abs 0.7 0.2 - 0.8 K/cumm APURVA Comment:Testing performed by : [address] [address] Eosinophil abs 0.2 0.0 - 0.5 K/cumm [facility] Comment:Testing performed by : [address] [address] Basophil abs 0.0 0.0 - 0.1 K/cumm [facility] Comment:Testing performed by : [address] [address] Neutrophil pct 58.3 % [facility] Comment: Interpretive Data Percent cell count reference ranges are not reported, since discordance with absolute values may lead to misinterpretation of CBC data. Current Interpretive Data was last revised on 2017. Testing performed by: [address] [address] Imm gran pct 0.4 % APURVA Comment: Interpretive Data Percent cell count reference ranges are not reported, since discordance with absolute values may lead to misinterpretation of CBC data. Current Interpretive Data was last revised on 2017. Testing performed by: [address] [address] Lymphocyte pct 29.1 % [facility]VA Comment: Interpretive Data Percent cell count reference ranges are not reported, since discordance with absolute values may lead to misinterpretation of CBC data. Current Interpretive Data was last revised on 2017. Testing performed by: [address] [address] Monocyte pct 8.8 % AP[facility]VA Comment: Interpretive Data Percent cell count reference ranges are not reported, since discordance with absolute values may lead to misinterpretation of CBC data. Current Interpretive Data was last revised on 2017. Testing performed by: [address] [address] Eosinophil pct 3.0 % AP[facility]VA Comment: Interpretive Data Percent cell count reference ranges are not reported, since discordance with absolute values may lead to misinterpretation of CBC data. Current Interpretive Data was last revised on 2017. Testing performed by: [address] [address] Basophil pct 0.4 % [facility] Comment: Interpretive Data Percent cell count reference ranges are not reported, since discordance with absolute values may lead to misinterpretation of CBC data. Current Interpretive Data was last revised on 2017. Testing performed by: [address] [address] Blood 08/27/2024 6:41 AM PUTTY REMOVER 08/27/2024 6:56 AM PUTTY REMOVER Mello Ariza MD LAB BLOOD ORDERABLE S Final Result [facility] [address] Department of Laboratories [place], [place] [id number] * Thyroid Function [place] (08/27/2024 6:41 AM PUTTY REMOVER) TSH 1.51 0.30 - 4.20 mcIUnit/mL Comment:Testing performed by : [address] [address] Blood 08/27/2024 6:41 AM PUTTY REMOVER 08/27/2024 6:56 AM PUTTY REMOVER us Mello Ariza MD LAB BLOOD ORDERABLE S Final Result [facility] [address] Department of Laboratories [place], [place] [id number] * (ABNORMAL) CBC with auto differential (08/27/2024 6:41 AM PUTTY REMOVER) WBC 8.1 3.8 - 9.9 K/cumm Comment:Testing performed by : [address] [address] Hgb 14.7 13.0 - 17.5 g/dL AP[facility]VA Comment:Testing performed by : [address] [address] Hct 41.7 38.9 - 50.3 % APURVA Comment:Testing performed by : [address] [address] Plt 307 150 - 400 K/cumm APURVA Comment:Testing performed by : [address] [address] MPV 10.0 9.1 - 12.3 fL AP[facility]VA Comment:Testing performed by : [address] [address] RBC 5.43 4.30 - 5.80 M/cumm APURVA Comment:Testing performed by : [address] [address] MCV 76.8(L) 81.3 - 96.4 fL AP[facility]VA Comment:Testing performed by : [address] [address] MCH 27.1 27.1 - 33.3 pg AP[facility]VA Comment:Testing performed by : [address] [address] MCHC 35.3 32.3 - 35.7 g/dL [facility] Comment:Testing performed by : [address] [address] RDW CV 14.0 11.1 - 14.9 % AP[facility]VA Comment:Testing performed by : [address], [address] RDW SD 38.5 35.7 - 48.1 fL [facility]VA Comment:Testing performed by : [address] [address] NRBC abs 0.00 0.00 - 0.01 K/cumm APURVA GIANG Comment:Testing performed by : [address] [address] Blood 08/27/2024 6:41 AM PUTTY REMOVER 08/27/2024 6:56 AM PUTTY REMOVER Mello Ariza MD LAB BLOOD ORDERABLE S Final Result Performing Organization Address City/[facility] Co de Phone Number [address] [place] [address] * Protime-INR (08/27/2024 6:41 AM PUTTY REMOVER) PT 13.4 12.0 - 14.6 sec Comment:Testing performed by : [address] [address] INR 1.0 0.9 - 1.2 AP[facility]VA Comment: Ref Range High Interpretive data Oral anticoagulant therapeutic ranges: Venous thromboembolism prophylaxis or treatment: 2.0-3.0 CARDIOLOGY Standard range: 2.0-3.0 High-intensity range: 2.5-3.5 Refer to indication-specific guidelines for appropriate target ranges for prosthetic heart valve replacement. Current interpretive data was last revised on 2019. Testing performed by: [address] [address] Blood 08/27/2024 6:41 AM PUTTY REMOVER 08/27/2024 6:56 AM PUTTY REMOVER Mello Ariza MD LAB BLOOD ORDERABLE S Final Result [address] [place] [address] * Lipase (08/27/2024 6:41 AM PUTTY REMOVER) Lipase 23 10 - 99 Units/L Comment:Testing performed by : [address] [address] Blood 08/27/2024 6:41 AM PUTTY REMOVER 08/27/2024 6:56 AM PUTTY REMOVER us Mello Ariza MD LAB BLOOD ORDERABLE S Final Result [facility] [address] Department [place] [address] * (ABNORMAL) Comprehensive metabolic panel (08/27/2024 6:41 AM PUTTY REMOVER) Pathologist [facility] Sodium 138 135 - 145 mmol/L Comment:Testing performed by : [address] [address] Potassium, pl 4.6 3.3 - 4.9 mmol/L [facility] Comment: Hemolyzed; Potassium value may be falsely elevated by as much as 1.0 mmol/L. Suggest redraw and reanalysis. Testing performed by: [address] [address] Chloride 102 97 - 110 mmol/L [facility] Comment:Testing performed by : [address] [address] CO2 23 22 - 32 mmol/L [facility] Comment:Testing performed by : [address] [address] Anion gap 13 2 - 15 mmol/L [facility] Comment:Testing performed by : [address] [address] BUN 13 6 - 25 mg/dL [facility] Comment:Testing performed by : [address] [address] Creatinine 0.82 0.80 - 1.30 mg/dL [facility] Comment:Testing performed by : [address] [address] Glucose 93 70 - 199 mg/dL [facility] [...] was last revised 2022. Testing performed by: [address] [address] Calcium 10.8(H) 8.5 - 10.3 mg/dL [facility] Comment:Testing performed by : [address] [address] Bilirubin, total 0.5 0.1 - 1.2 mg/dL [facility] Comment:Testing performed by : [address] [address] Protein, pl 7.6 6.5 - 8.5 g/dL [facility] Comment:Testing performed by : [address] [address] Albumin 4.8 3.5 - 5.0 g/dL [facility] Comment:Testing performed by : [address] [address] Alk phos 58 40 - 130 Units/L [facility] Comment:Testing performed by : [address] [address] ALT 60(H) 7 - 55 Units/L [facility] Comment:Testing performed by : [address] [address] AST 41 10 - 50 Units/L [facility] Comment: Hemolyzed; result may be falsely elevated Testing performed by: [address] [address] Blood 08/27/2024 6:41 AM PUTTY REMOVER 08/27/2024 6:56 AM PUTTY REMOVER us Mello Ariza MD LAB BLOOD ORDERABLE S Final Result [facility] [place] [address] * eGFR (08/08/2024 9:27 AM PUTTY REMOVER) eGFR >90 >=60 mL/min/1. 73 m2 Comment: [...] was last reviewed 2021. Testing performed by: [address] [address] Blood 08/08/2024 9:27 AM PUTTY REMOVER 08/08/2024 9:32 AM PUTTY REMOVER us Iglesia Triplett MD LAB BLOOD ORDERABLES Final Resul t [place] [id number] [facility] [place] [address] * Differential, auto (08/08/2024 9:27 AM PUTTY REMOVER) Neutrophil abs 6.1 1.5 - 6.5 K/cumm Comment:Testing performed by : [address] [address] Imm gran abs 0.1 0.0 - 0.1 K/cumm [facility] Comment:Testing performed by : [address] [address] Lymphocyte abs 2.0 0.8 - 3.3 K/cumm [facility] Comment:Testing performed by : [address], [place]., [address] Monocyte abs 0.6 0.2 - 0.8 K/cumm [facility] Comment:Testing performed by : [address], [place]., [address] Eosinophil abs 0.1 0.0 - 0.5 K/cumm [facility] Comment:Testing performed by : [address], [place]., [address] Basophil abs 0.0 0.0 - 0.1 K/cumm [facility] Comment:Testing performed by : [address] [address] Neutrophil pct 68.6 % [facility] Comment: Interpretive Data Percent cell count reference ranges are not reported, since discordance with absolute values may lead to misinterpretation of CBC data. Current Interpretive Data was last revised on 2017. Testing performed by: [address] [address] Imm gran pct 0.6 % [facility] Comment: Interpretive Data Percent cell count reference ranges are not reported, since discordance with absolute values may lead to misinterpretation of CBC data. Current Interpretive Data was last revised on 2017. Testing performed by: [address] [address] Lymphocyte pct 22.6 % [facility] Comment: Interpretive Data Percent cell count reference ranges are not reported, since discordance with absolute values may lead to misinterpretation of CBC data. Current Interpretive Data was last revised on 2017. Testing performed by: [address] [address] Monocyte pct 6.6 % [facility] Comment: Interpretive Data Percent cell count reference ranges are not reported, since discordance with absolute values may lead to misinterpretation of CBC data. Current Interpretive Data was last revised on 2017. Testing performed by: [address] [address] Eosinophil pct 1.3 % [facility] Comment: Interpretive Data Percent cell count reference ranges are not reported, since discordance with absolute values may lead to misinterpretation of CBC data. Current Interpretive Data was last revised on 2017. Testing performed by: [address] [address] Basophil pct 0.3 % [facility] Comment: Interpretive Data Percent cell count reference ranges are not reported, since discordance with absolute values may lead to misinterpretation of CBC data. Current Interpretive Data was last revised on 2017. Testing performed by: [address] [address] Blood 08/08/2024 9:27 AM PUTTY REMOVER 08/08/2024 9:32 AM PUTTY REMOVER us Iglesia Triplett MD LAB BLOOD ORDERABLES Final Resul t [facility] [place] [address] * (ABNORMAL) Urinalysis reflex to microscopic and culture Urine (08/08/2024 9:27 AM PUTTY REMOVER) Color, ur Yellow Yellow Comment:Testing performed by : [address] [address] Clarity, ur Clear Clear [facility] Comment:Testing performed by : [address] [address] Specific gravity, ur 1.014 1.003 - 1.030 [facility] Comment:Testing performed by : [address] [address] pH, urine 6.0 [facility] Comment: Interpretive Data U rine pH is affected by diet, medications, systemic acid-base disturbances, and renal tubular function. pH may affect urinary stone formation. For example, urine pH below 6.0 may help reduce the tendency for calcium phosphate stones and pH greater than 6.0 may reduce the tendency for uric acid stone formation. Source: [employer] Current Interpretive Data was last revised on 2017 Testing performed by: [address] [address] Protein, ur ql Negative Negative [facility] Comment:Testing performed by : [address] [address] Glucose, ur ql Negative Negative [facility] Comment:Testing performed by : [address], [place]., [address] Ketones, ur 1+(A) Negative [facility] Comment:Testing performed by : [address], [place]., [address] Bilirubin, ur Negative Negative [facility] Comment:Testing performed by : [address], [place]., [address] Blood, ur Negative Negative [facility] Comment:Testing performed by : [address], [place]., [address] Urobilinogen, ur <2.0 <2.0 mg/dL [facility]AGN Comment:Testing performed by : [address], [place]., [address] Nitrite, ur Negative Negative [facility] Comment:Testing performed by : [address], [place]., [address] Leukocyte esterase, ur Negative Negative [facility] Comment:Testing performed by : [address], [place]., [address] UA reflex comment Reflex conditions for microscopic UA and culture not met. [facility] Comment:Testing performed by : [address], [place]., [address] Urine 08/08/2024 9:27 AM PUTTY REMOVER 08/08/2024 9:32 AM PUTTY REMOVER us Iglesia Triplett MD LAB MICROBIOLOGY - GENERAL ORDER ASTRID Final Result [facility] [address] Department of Laboratories [place], [place] [id number] * (ABNORMAL) CBC with auto differential (08/08/2024 9:27 AM PUTTY REMOVER) WBC 8.9 3.8 - 9.9 K/cumm Comment:Testing performed by : [address], [place]., [address] Hgb 15.3 13.0 - 17.5 g/dL [facility] Comment:Testing performed by : [address], [address] Hct 44.0 38.9 - 50.3 % [facility] Comment:Testing performed by : [address], [address] Plt 305 150 - 400 K/cumm [facility] Comment:Testing performed by : [address] [address] MPV 10.0 9.1 - 12.3 fL [facility] Comment:Testing performed by : [address], [address] RBC 5.68 4.30 - 5.80 M/cumm [facility] Comment:Testing performed by : [address], [address] MCV 77.5(L) 81.3 - 96.4 fL [facility] Comment:Testing performed by : [address], [address] MCH 26.9(L) 27.1 - 33.3 pg [facility] Comment:Testing performed by : [address], [address] MCHC 34.8 32.3 - 35.7 g/dL [facility] Comment:Testing performed by : [address], [address] RDW CV 14.2 11.1 - 14.9 % [facility] Comment:Testing performed by : [address], [address] RDW SD 38.9 35.7 - 48.1 fL [facility] Comment:Testing performed by : [address], [address] NRBC abs 0.00 0.00 - 0.01 K/cumm [facility] Comment:Testing performed by : [address], [address] Blood (Blood, Venous) 08/08/2024 9:27 AM PUTTY REMOVER 08/08/2024 9:32 AM PUTTY REMOVER us Iglesia Triplett MD LAB BLOOD ORDERABLES Final Resul t Performing Organization Address [facility] Co de Phone Number [place] [id number] [place] [address] * Lipase (08/08/2024 9:27 AM PUTTY REMOVER) Pathologist [facility] Lipase 16 10 - 99 Units/L Comment:Testing performed by : [address] [address] Blood (Blood, Venous) 08/08/2024 9:27 AM PUTTY REMOVER 08/08/2024 9:32 AM PUTTY REMOVER us Iglesia Triplett MD LAB BLOOD ORDERABLES Final Resul t Performing Organization Address [facility] de Phone Number [address] [address] * Comprehensive metabolic panel (08/08/2024 9:27 AM PUTTY REMOVER) [facility] Sodium 137 135 - 145 mmol/L Comment:Testing performed by : [address] [address] Potassium, pl 3.7 3.3 - 4.9 mmol/L [facility] Comment:Testing performed by : [address] [address] Chloride 103 97 - 110 mmol/L [facility] Comment:Testing performed by : [address] [address] CO2 24 22 - 32 mmol/L [facility] Comment:Testing performed by : [address] [address] Anion gap 10 2 - 15 mmol/L [facility] Comment:Testing performed by : [address] [address] BUN 9 6 - 25 mg/dL [facility] Comment:Testing performed by : [address] [address] Creatinine 0.80 0.80 - 1.30 mg/dL [facility] Comment:Testing performed by : [address] [address] Glucose 91 70 - 199 mg/dL [facility] [...] classification and Diagnosis of Diabetes Diabetes Care 202; 46: S19-S40. Current interpretive data was last revised 2022. Testing performed by: [address] [address] Calcium 9.7 8.5 - 10.3 mg/dL [facility] Comment:Testing performed by : [address] [address] Bilirubin, total 0.8 0.1 - 1.2 mg/dL [facility] Comment:Testing performed by : [address] [address] Protein, pl 7.3 6.5 - 8.5 g/dL [facility] Comment:Testing performed by : [address] [address] Albumin 4.7 3.5 - 5.0 g/dL [facility] Comment:Testing performed by : [address] [address] Alk phos 62 40 - 130 Units/L [facility] Comment:Testing performed by : [address] [address] ALT 26 7 - 55 Units/L [facility] Comment:Testing performed by : [address] [address] AST 18 10 - 50 Units/L [facility] Comment:Testing performed by : [address] [address] Blood 08/08/2024 9:27 AM PUTTY REMOVER 08/08/2024 9:32 AM PUTTY REMOVER us Iglesia Triplett MD LAB BLOOD ORDERABLES Final Resul t [facility] [address] [place] [address] * CT Abdomen Pelvis W Contrast (08/05/2024 6:19 PM PUTTY REMOVER) Anatomical Region Laterality Modality Body N/A Computed Tomogra phy 08/05/2024 6:26 PM PUTTY REMOVER Impressions 08/05/2024 6:30 PM PUTTY REMOVER No acute finding in the abdomen or pelvis. Dictated by: James Harrell MD PHD The radiology attending physician has personally reviewed this study, and had reviewed and/or edited this written report and agrees with it. Electronically signed by: Bishop Viramontes M.D. Narrative 08/05/2024 6:30 PM PUTTY REMOVER EXAMINATION: CT ABDOMEN PELVIS W CONTRAST HISTORY: [...] by: Bishop Viramontes M.D. Wesley Tompkins NP IM CT PROCEDURES Final Result * eGFR (08/05/2024 5:15 PM PUTTY REMOVER) eGFR >90 >=60 mL/min/1. 73 m2 Comment: [...] last reviewed 2021. Blood 08/05/2024 5:15 PM PUTTY REMOVER 08/05/2024 5:25 PM PUTTY REMOVER us Isacc Carolina MD LAB BLOOD ORDERABLES F inal Result [facility] Department [place] [address] * (ABNORMAL) Differential, auto (08/05/2024 5:15 PM PUTTY REMOVER) Neutrophil abs 9.1(H) 1.5 - 6.5 K/cumm Imm gran abs 0.1 0.0 - 0.1 K/cumm [facility] Lymphocyte abs 1.7 0.8 - 3.3 K/cumm [facility] Monocyte abs 0.7 0.2 - 0.8 K/cumm [facility] Eosinophil abs 0.0 0.0 - 0.5 K/cumm [facility] Basophil abs 0.0 0.0 - 0.1 K/cumm [facility] Neutrophil pct 77.2 % [facility] Comment: Interpretive Data Percent cell count reference ranges are not reported, since discordance with absolute values may lead to misinterpretation of CBC data. Current Interpretive Data was last revised on 2017. Imm gran pct 1.2 % [facility] Comment: Interpretive Data Percent cell count reference ranges are not reported, since discordance with absolute values may lead to misinterpretation of CBC data. Current Interpretive Data was last revised on 2017. Lymphocyte pct 14.7 % [facility] Comment: Interpretive Data Percent cell count reference ranges are not reported, since discordance with absolute values may lead to misinterpretation of CBC data. Current Interpretive Data was last revised on 2017. Monocyte pct 6.3 % [facility] Comment: Interpretive Data Percent cell count reference ranges are not reported, since discordance with absolute values may lead to misinterpretation of CBC data. Current Interpretive Data was last revised on 2017. Eosinophil pct 0.3 % [facility] Comment: Interpretive Data Percent cell count reference ranges are not reported, since discordance with absolute values may lead to misinterpretation of CBC data. Current Interpretive Data was last revised on 2017. Basophil pct 0.3 % [facility] Comment: Interpretive Data Percent cell count reference ranges are not reported, since discordance with absolute values may lead to misinterpretation of CBC data. Current Interpretive Data was last revised on 2017. Blood 08/05/2024 5:15 PM PUTTY REMOVER 08/05/2024 5:25 PM PUTTY REMOVER Isacc Carolina MD LAB BLOOD ORDERABLES F inal Result [facility] Department [place] [address] * (ABNORMAL) Urinalysis reflex to microscopic (08/05/2024 5:15 PM PUTTY REMOVER) Color, ur Straw Yellow Clarity, ur Clear Clear [facility] Specific gravity, ur 1.017 1.003 - 1.030 [facility] pH, urine 7.5 [facility] Comment: Interpretive Data U rine pH is affected by diet, medications, systemic acid-base disturbances, and renal tubular function. pH may affect urinary stone formation. For example, urine pH below 6.0 may help reduce the tendency for calcium phosphate stones and pH greater than 6.0 may reduce the tendency for uric acid stone formation. Source: [facility] Current Interpretive Data was last revised on 2017 Protein, ur ql Trace Negative [facility] Glucose, ur ql Negative Negative [facility] Ketones, ur 2+(A) Negative [facility] Bilirubin, ur Negative Negative [facility] Blood, ur Negative Negative [facility] Urobilinogen, ur <2.0 <2.0 mg/dL [facility] Nitrite, ur Negative Negative [facility] Leukocyte esterase, ur Negative Negative [facility] UA reflex comment Reflex conditions for microscopic UA not met. [facility] Urine 08/05/2024 5:15 PM PUTTY REMOVER 08/05/2024 5:20 PM PUTTY REMOVER Isacc Carolina MD LAB URINE ORDERABLES F inal Result Performing Organization Address [facility] de Phone Number [facility] Department [place] [address] * (ABNORMAL) CBC with auto differential (08/05/2024 5:15 PM PUTTY REMOVER) [facility] WBC 11.8(H) 3.8 - 9.9 K/cumm Hgb 17.0 13.0 - 17.5 g/dL [facility] Hct 48.5 38.9 - 50.3 % [facility] Plt 384 150 - 400 K/cumm [facility] MPV 10.2 9.1 - 12.3 fL [facility] RBC 6.30(H) 4.30 - 5.80 M/cumm [facility] MCV 77.0(L) 81.3 - 96.4 fL [facility] MCH 27.0(L) 27.1 - 33.3 pg [facility] MCHC 35.1 32.3 - 35.7 g/dL [facility] RDW CV 14.3 11.1 - 14.9 % [facility] RDW SD 37.9 35.7 - 48.1 fL [facility] NRBC abs 0.00 0.00 - 0.01 K/cumm [facility] Blood (Blood, Venous) 08/05/2024 5:15 PM PUTTY REMOVER 08/05/2024 5:25 PM PUTTY REMOVER Isacc Carolina MD LAB BLOOD ORDERABLES F inal Result Performing Organization Address [facility] Co de Phone Number [facility] Department [place] [address] * Lipase (08/05/2024 5:15 PM PUTTY REMOVER) [facility] Lipase 20 10 - 99 Units/L Blood (Blood, Venous) 08/05/2024 5:15 PM PUTTY REMOVER 08/05/2024 5:25 PM PUTTY REMOVER Isacc Carolina MD LAB BLOOD ORDERABLES F inal Result [facility] Department [place] [address] * (ABNORMAL) Comprehensive metabolic panel (08/05/2024 5:15 PM PUTTY REMOVER) Sodium 140 135 - 145 mmol/L Potassium, pl 4.7 3.3 - 4.9 mmol/L [facility] Comment:Hemolyzed; Potassium value may be falsely elevated by as much as 0.6-1.0 mmol/L. Suggest redraw and reanalysis. Chloride 99 97 - 110 mmol/L [facility] CO2 27 22 - 32 mmol/L [facility] Anion gap 14 2 - 15 mmol/L [facility] BUN 12 6 - 25 mg/dL [facility] Creatinine 0.91 0.80 - 1.30 mg/dL [facility] Glucose 97 70 - 199 mg/dL [facility] Comment: Interpretive Data Fasting glucose [...] 2022. Calcium 10.5(H) 8.5 - 10.3 mg/dL [facility] Bilirubin, total 0.8 0.1 - 1.2 mg/dL [facility] Protein, pl 8.5 6.5 - 8.5 g/dL [facility] Albumin 5.3(H) 3.5 - 5.0 g/dL [facility] Alk phos 74 40 - 130 Units/L [facility] ALT 39 7 - 55 Units/L [facility] AST 35 10 - 50 Units/L [facility] Comment:Hemolyzed; result ma y be falsely elevated Blood 08/05/2024 5:15 PM PUTTY REMOVER 08/05/2024 5:25 PM PUTTY REMOVER Isacc Carolina MD LAB BLOOD ORDERABLES F inal Result [facility] Department [place] [address] from Last 3 Months Insurance [facility] Care Teams Financial Sales Manager Relationship Specialty Start Date End Date Sivan Boyd PA [address] [facility] [address] [place] [address] PCP - General Family Medicine 08/24/24
--- OUTSIDE RECORDS SUMMARY | 2024-09-24 13:38 | XMS_ITS | Clinical Summary ---
Author Organization [facility] Address [address] [place] [address] Care Team Providers Care Lineworker Name Role Phone Sivan Boyd Primary Care [...] for 7 days 14 tablet 5 08/28/19 25 Discontinu ed(Therapy completed) metroNIDAZOLE (FLAGYL) 500 mg [...] 08/25/2024 Assessment & Plan (08/25/2024 12:48 PM PAY STATION COLLECTOR): Diverticulosis seen on CT of the abdomen/pelvis. [...] Department Care Team Description 09/22/2024 12:46 PM PAY STATION COLLECTOR - 09/22/2024 11:59 PM PAY STATION COLLECTOR Hospital Encounter [facility] Nuclear Medicine [address] [place] [phone] Abdominal pain; Elevated LFTs Discharge Disposition: Discharge to home or self care 09/19/2024 Results Follow-Up [facility] Family Medicine [address] [phone] Sivan Boyd PA 09/18/2024 1:47 PM PAY STATION COLLECTOR - 09/18/2024 11:59 PM PAY STATION COLLECTOR Hospital Encounter [facility] Cardiac Testing [address] [place] [address] Dizziness; Bradycardia; Abnormal EKG; Near syncope; New daily persistent headache Discharge Disposition: Discharge to home or self care 09/12/2024 12:44 AM PAY STATION COLLECTOR - 09/12/2024 3:09 AM PAY STATION COLLECTOR Emergency [facility] Emergency Department [address] [place] [address] Idris Crespo Jr., MD Gastrointestinal hemorrhage, unspecified gastrointestinal hemorrhage type (Primary Dx) Discharge Disposition: Discharge to home or self care 09/11/2024 2:00 PM PAY STATION COLLECTOR Office Visit [facility] Family Medicine [address] [place] [phone] Sivan Boyd PA Rectal bleeding (Primary Dx); Abdominal pain; Bradycardia; Near syncope; Visual changes; UTI symptoms; Elevated liver enzymes; Belching; Hypercalcemia; Low serum parathyroid hormone (PTH); Anxiousness 09/11/[address] [phone] Sivan Boyd PA 09/06/2024 2:43 PM PAY STATION COLLECTOR - 09/06/2024 3:49 PM [facility] Emergency Department [address] [place] [phone] Kev Ackerman MD Left arm pain (Primary Dx) Discharge Disposition: Discharge to home or self care 09/05/2024 10:54 AM PAY STATION COLLECTOR - 09/05/2024 11:59 PM [facility] Cardiac Testing [address] [place] [address] Bradycardia Discharge Disposition: Discharge to home or self care 09/04/2024 Telephone [facility] Gastroenterology at [address] [place] [phone] Omar Dao MD 08/28/2024 Orders Only [facility] Gastroenterology at [address] [place] [phone] Omar Dao MD Weight loss (Primary Dx); Nausea and vomiting, unspecified vomiting type; Abdominal pain 08/27/2024 8:13 AM PAY STATION COLLECTOR - 08/27/2024 11:03 AM [facility] Emergency Department [address] [place] [address] Mello Ariza MD Abdominal pain (Primary Dx) Discharge Disposition: Discharge to home or self care 08/24/2024 12:30 PM PAY STATION COLLECTOR Office Visit [address] [phone] Sivna Boyd PA Dizziness (Primary Dx); Bradycardia; Abnormal EKG; Near syncope; New daily persistent headache; Diverticulosis 08/08/2024 10:30 AM PAY STATION COLLECTOR - 08/08/2024 12:50 PM PAY STATION COLLECTOR Emergency [facility] Emergency Department [address] [place] [address] Intermittent abdominal pain (Primary Dx); Dizziness Discharge Disposition: Discharge to home or self care 08/05/2024 3:40 PM PAY STATION COLLECTOR - 08/05/2024 9:54 PM [facility] Emergency [facility] Emergency Department [address] [place] [address] Epigastric pain (Primary Dx); Strain of neck muscle, initial encounter Discharge Disposition: Discharge to home or self care from Last 3 Months Immunizations Immunization Administration Dates Next Due DTaP [...] on file Legal Sex Male 12:57 PM PAY STATION COLLECTOR Gender Identity Not on file Sexual Orientation Not on file Obstetrics History Last Filed Vital Signs Vital Sign Reading Time Taken Comments Blood Pressure 129/79 09/12/2024 3:05 AM PAY STATION COLLECTOR Pulse 62 09/12/2024 3:05 AM PAY STATION COLLECTOR Temperature 36.2 C (97.2 F) 09/12/2024 12:08 AM PAY STATION COLLECTOR Respiratory Rate 16 09/12/2024 3:05 AM PAY STATION COLLECTOR Oxygen Saturation 99% 09/12/2024 3:05 AM PAY STATION COLLECTOR Inhaled Oxygen Concentration - - Weight 119.6 kg (263 lb 10.7 oz) 2024 12:08 AM PAY STATION COLLECTOR Height 182.9 cm (6') 09/11/2024 1:58 PM PAY STATION COLLECTOR Body Mass Index 35.76 09/11/2024 1:58 PM PAY STATION COLLECTOR Plan of Treatment Health Maintenance Due Date Last Done Comments Hepatitis C Screening 2000 Regular Well Visit/Exam 18-64 2018 DTaP/Tdap/Td Vaccine (7 - Td or Tdap) 07/24/2021 07/24/2011, 03/19/2006, 01/19/2002, Additional history exists Influenza Vaccine (#1) 2024 5, 08/17/2013, 06/23/2011 Depression Screening 09/11/2025 09/11/2024, 08/24/2024, 08/24/2024 Pneumococcal vaccine <65 Completed 002, 01/17/2001, 2000, Additional history exists HPV Vaccines Completed 08/08/2012, 09/03, 07/24/2011 Hepatitis B Screening Completed 12/04/2015 , 01/19/2002, 2000, Additional history exists Varicella Vaccines Completed 12/04/2015, 07/22/2001 Procedures Procedure Name Priority Date/Time Associated Diagnosis Comments NM HEPATOBILIARY IMAGING W PHARMACEUTICAL INTERVENTION Schedule Routine, Read Routine (OP Routine) 09/22/2024 3:27 PM PAY STATION COLLECTOR Abdominal pain Elevated LFTs TRANSTHORACIC ECHO (TTE) COMPLETE W DOPPLER/CF WO CONTRAST Routine 09/18/2024 2:26 PM PAY STATION COLLECTOR Dizziness Bradycardia Abnormal EKG Near syncope New daily persistent headache CTA ABDOMEN PELVIS W WO CONTRAST ED 09/12/2024 1:29 AM PAY STATION COLLECTOR EGFR STAT 09/12/2024 12:16 AM PAY STATION COLLECTOR DIFFERENTIAL AUTO STAT 09/12/2024 12: 16 AM PAY STATION COLLECTOR LIPASE STAT 09/12/2024 12:16 AM PAY STATION COLLECTOR COMPREHENSIVE METABOLIC PANEL STAT 09/12/2024 12:16 AM PAY STATION COLLECTOR CBC WITH AUTO DIFFERENTIAL STAT 09/12/2024 12:16 AM PAY STATION COLLECTOR URINE CULTURE Routine 09/11/2024 2:21 PM PAY STATION COLLECTOR UTI symptoms POCT URINALYSIS DIPSTICK Routine 09/11/2024 2:20 PM PAY STATION COLLECTOR UTI symptoms HM COLONOSCOPY Routine 09/07/2024 HOLTER MONITOR 24 HR Routine 09/05/2024 11:09 AM PAY STATION COLLECTOR Bradycardia FERRITIN Routine 08/31/2024 1:45 PM PAY STATION COLLECTOR IRON PROFILE W/ IBC Routine 08/31/2024 1 :45 PM PAY STATION COLLECTOR HEMOGLOBIN A1C Routine 08/31/2024 1:45 PM PAY STATION COLLECTOR Screening for diabetes mellitus VITAMIN B12 Routine 08/31/2024 1:45 PM PAY STATION COLLECTOR Encounter for vitamin deficiency screening VITAMIN D 25 HYDROXY Routine 08/31/2024 1:45 PM PAY STATION COLLECTOR Hypercalcemia Encounter for vitamin deficiency screening COMPREHENSIVE METABOLIC PANEL Routine 08/31/2024 1:45 PM PAY STATION COLLECTOR Hypercalcemia PTH Routine 08/31/2024 1:45 PM PAY STATION COLLECTOR Hypercalcemia CTA ABDOMEN PELVIS W WO CONTRAST ED 08/27/2024 9:33 AM PAY STATION COLLECTOR TROPONIN T HIGH-SENSITIVITY 2-HOUR Timed 08/27/2024 8:24 AM PAY STATION COLLECTOR URINALYSIS AND REFLEX TO MICROSCOPIC AND CULTURE STAT 08/27/2024 6:51 AM PAY STATION COLLECTOR ECG 12-LEAD STAT 08/27/2024 6:45 AM PAY STATION COLLECTOR EGFR STAT 08/27/2024 6:41 AM PAY STATION COLLECTOR DIFFERENTIAL AUTO STAT 08/27/2024 6:4 1 AM PAY STATION COLLECTOR PROTIME-INR STAT 08/27/2024 6:41 AM PAY STATION COLLECTOR THYROID FUNCTION CASCADE STAT 08/27/2024 6:41 AM PAY STATION COLLECTOR TROPONIN T HIGH-SENSITIVITY SERIES (BASELINE, 2HR, 4HR, 6HR) STAT 08/27/2024 6:41 AM PAY STATION COLLECTOR SEPSIS LACTATE WITH REFLEX STAT 08/27/2024 6:41 AM PAY STATION COLLECTOR LIPASE STAT 08/27/2024 6:41 AM PAY STATION COLLECTOR COMPREHENSIVE METABOLIC PANEL STAT 08/27/2024 6:41 AM PAY STATION COLLECTOR CBC WITH AUTO DIFFERENTIAL STAT 08/27/2024 6:41 AM PAY STATION COLLECTOR EGFR STAT 08/08/2024 9:27 AM PAY STATION COLLECTOR DIFFERENTIAL AUTO STAT 08/08/2024 9:2 7 AM PAY STATION COLLECTOR LIPASE STAT 08/08/2024 9:27 AM PAY STATION COLLECTOR COMPREHENSIVE METABOLIC PANEL STAT 08/08/2024 9:27 AM PAY STATION COLLECTOR CBC WITH AUTO DIFFERENTIAL STAT 08/08/2024 9:27 AM PAY STATION COLLECTOR URINALYSIS AND REFLEX TO MICROSCOPIC AND CULTURE STAT 08/08/2024 9:27 AM PAY STATION COL[address] CT ABDOMEN PELVIS W CONTRAST ED 08/05/2024 6:19 PM PAY STATION COLLECTOR EGFR STAT 08/05/2024 5:15 PM PAY STATION COLLECTOR DIFFERENTIAL AUTO STAT 08/05/2024 5:1 5 PM PAY STATION COLLECTOR URINALYSIS AND REFLEX TO MICROSCOPIC STAT 08/05/2024 5:15 PM PAY STATION COLLECTOR LIPASE STAT 08/05/2024 5:15 PM PAY STATION COLLECTOR COMPREHENSIVE METABOLIC PANEL STAT 08/05/2024 5:15 PM PAY STATION COLLECTOR CBC WITH AUTO DIFFERENTIAL STAT 08/05/2024 5:15 PM PAY STATION COLLECTOR from Last 3 Months Results * NM Hepatobiliary Imaging W GBEF (09/22/2024 3:27 PM PAY STATION COLLECTOR) Anatomical Region Laterality Modality Body N/A Nuclear Medicine 09/22/2024 3:33 PM PAY STATION COLLECTOR Narrative 09/22/2024 3:41 PM PAY STATION COLLECTOR EXAM DESCRIPTION: NM HEPATOBILIARY IMAGING W PHARMACEUTICAL [...] by Collins Sawant M.D. CH: Report ID: [id number] Reading Location: [id number] Procedure Note Collins Sawant Jr., MD - [...] Collins Sawant M.D. CH: BHARAT Report ID: [id number] Reading Location: [place] [address] Sivan CLAIRE IMVA [facility] PROCEDURES Final Result * TRANSTHORACIC ECHO (TTE) COMPLETE W DOPPLER/CF WO CONTRAST (09/18/2024 2:26 PM PAY STATION COLLECTOR) LV EF 57 % CONS SCIMAGE Anatomical Region Laterality Modality Ultrasound 09/18/2024 1:50 PM PAY STATION COLLECTOR Narrative 09/18/2024 8:28 PM PAY STATION COLLECTOR Transthoracic Echocardiographic Report Patient Name: ERICK PIERRE L : 2000 (24y 1m) Gender: M Study Date: 09/18/2024 01:50:54 PM Ht(Inch): 72 Wt(Lb): 263.01 BSA: 2.46 Wheat Shipper: Christy Medellin RDCS Order Provider: SIVAN BOYD Heart Rate: 64 BMI: 35.67 BP: 130 / 80 Ref Provider: SIVAN BOYD PROCEDURES: Echocardiographic Report: ([id number]) Transthoracic complete echo, 2D, spectral and tissue [...] By: Sultan Michael NORTON 09/18/2024 8:27:56 PM PAY STATION COLLECTOR Procedure Note Sultan Mary Carmen Rodriguez MD - 09/18/2024 Transthoracic Echocardiographic Report Patient Name: ERICK PIERRE L : 2000 (24y 1m) Gender: M Study Date: 09/18/2024 01:50:54 PM Ht(Inch): 72 Wt(Lb): 263.01 BSA: 2.46 Wheat Shipper: Christy Medellin RDCS Order Provider: SIVAN BOYD Heart Rate: 64 BMI: 35.67 BP: 130 / 80 Ref Provider: SIVAN BOYD PROCEDURES: Echocardiographic Report: ([id number]) Transthoracic complete echo, 2D,spectral and tissue Doppler, [...] LA Length 4C 6.11 cm MV Decel [id number] msec LA Volume BP 60.90 ml Med [...] By: Sultan Michael NORTON 09/18/2024 8:27:56 PM PAY STATION COLLECTOR us Sivan CLAIRE CV ECHO PROCEDURES Final Result * CTA Abdomen Pelvis (09/12/2024 1:29 AM PAY STATION COLLECTOR) Anatomical Region Laterality Modality Body N/A Computed Tomogra phy 09/12/2024 1:43 AM PAY STATION COLLECTOR Narrative 09/12/2024 1:48 AM PAY STATION COLLECTOR EXAM DESCRIPTION: CTA ABDOMEN PELVIS REASON FOR [...] Patric Schaefer M.D. AR: ANDRIY Report ID: [id number] Reading Location: [place] [address] Procedure Note Patric Schaefer MD - 09/12/2024 [...] Patric Schaefer M.D. AR: ANDRIY Report ID: [id number] Reading Location: [id number] Xiomy CLAIRE IMG CT PROCEDURES Final Re sult * eGFR (09/12/2024 12:16 AM PAY STATION COLLECTOR) eGFR >90 >=60 mL/min/1. 73 m2 Comment: [...] was last reviewed 2021. Testing performed by: [address] [address] Blood 09/12/2024 12:1 6 AM PAY STATION COLLECTOR 09/12/2024 12:39 AM PAY STATION COLLECTOR Xiomy CLAIRE LAB BLOOD ORDERABLES Final Result [facility] [address] [facility] Department [place] [address] * Differential, auto (09/12/2024 12:16 AM PAY STATION COLLECTOR) Neutrophil abs 4.9 1.5 - 6.5 K/cumm Comment:Testing performed by : [address] [place]., [address] Imm gran abs 0.1 0.0 - 0.1 K/cumm [facility] Comment:Testing performed by : [address] [address] Lymphocyte abs 2.6 0.8 - 3.3 K/cumm [facility] Comment:Testing performed by : [address] [address] Monocyte abs 0.6 0.2 - 0.8 K/cumm [facility] Comment:Testing performed by : [address] [address] Eosinophil abs 0.2 0.0 - 0.5 K/cumm [facility] Comment:Testing performed by : [address] [address] Basophil abs 0.0 0.0 - 0.1 K/cumm [facility] Comment:Testing performed by : [address] [address] Neutrophil pct 58.0 % [facility] Comment: Interpretive Data Percent cell count reference ranges are not reported, since discordance with absolute values may lead to misinterpretation of CBC data. Current Interpretive Data was last revised on 2017. Testing performed by: [address] [address] Imm gran pct 0.6 % [facility] Comment: Interpretive Data Percent cell count reference ranges are not reported, since discordance with absolute values may lead to misinterpretation of CBC data. Current Interpretive Data was last revised on 2017. Testing performed by: [address] [address] Lymphocyte pct 31.0 % [facility] Comment: Interpretive Data Percent cell count reference ranges are not reported, since discordance with absolute values may lead to misinterpretation of CBC data. Current Interpretive Data was last revised on 2017. Testing performed by: [address] [address] Monocyte pct 7.3 % [facility] Comment: Interpretive Data Percent cell count reference ranges are not reported, since discordance with absolute values may lead to misinterpretation of CBC data. Current Interpretive Data was last revised on 2017. Testing performed by: [address] [address] Eosinophil pct 2.6 % [facility] Comment: Interpretive Data Percent cell count reference ranges are not reported, since discordance with absolute values may lead to misinterpretation of CBC data. Current Interpretive Data was last revised on 2017. Testing performed by: [address] [address] Basophil pct 0.5 % [facility] Comment: Interpretive Data Percent cell count reference ranges are not reported, since discordance with absolute values may lead to misinterpretation of CBC data. Current Interpretive Data was last revised on 2017. Testing performed by: [address] [address] Blood 09/12/2024 12:1 6 AM PAY STATION COLLECTOR 09/12/2024 12:34 AM PAY STATION COLLECTOR Xiomy CLAIRE LAB BLOOD ORDERABLES Final Result [facility] Department [place] [address] * (ABNORMAL) CBC with auto differential (09/12/2024 12:16 AM PAY STATION COLLECTOR) WBC 8.4 3.8 - 9.9 K/cumm Comment:Testing performed by : [address] [address] Hgb 14.9 13.0 - 17.5 g/dL [facility] Comment:Testing performed by : [address] [address] Hct 41.9 38.9 - 50.3 % [facility] Comment:Testing performed by : [address] [address] Plt 305 150 - 400 K/cumm [facility] Comment:Testing performed by : [address] [address] MPV 10.5 9.1 - 12.3 fL [facility] Comment:Testing performed by : [address] [address] RBC 5.36 4.30 - 5.80 M/cumm [facility] Comment:Testing performed by : [address] [address] MCV 78.2(L) 81.3 - 96.4 fL [facility] Comment:Testing performed by : [address], [address] MCH 27.8 27.1 - 33.3 pg [facility] Comment:Testing performed by : [address] [address] MCHC 35.6 32.3 - 35.7 g/dL [facility] Comment:Testing performed by : [address], [address] RDW CV 13.3 11.1 - 14.9 % [facility] Comment:Testing performed by : [address], [address] RDW SD 37.3 35.7 - 48.1 fL [facility] Comment:Testing performed by : [address], [address] NRBC abs 0.00 0.00 - 0.01 K/cumm [facility] Comment:Testing performed by : [address], [address] Blood (Blood, Venous) 09/12/2024 12:16 AM PAY STATION COLLECTOR 09/12/2024 12:34 AM PAY STATION COLLECTOR us Idris Crespo Jr., MD LAB BLOOD ORDERABLES Fi nal Result [facility] [address] [facility] Department [place] [address] * Lipase (09/12/2024 12:16 AM PAY STATION COLLECTOR) Lipase 24 10 - 99 Units/L Comment:Testing performed by : [address], [address] Blood (Blood, Venous) 09/12/2024 12:16 AM PAY STATION COLLECTOR 09/12/2024 12:34 AM PAY STATION COLLECTOR us Idris Crespo Jr., MD LAB BLOOD ORDERABLES Fi nal Result [facility] [address] [facility] Department [place] [address] * Comprehensive metabolic panel (09/12/2024 12:16 AM PAY STATION COLLECTOR) Sodium 141 135 - 145 mmol/L Comment:Testing performed by : [address] [address] Potassium, pl 3.8 3.3 - 4.9 mmol/L [facility] Comment:Testing performed by : [address] [address] Chloride 103 97 - 110 mmol/L [facility] Comment:Testing performed by : [address] [address] CO2 27 22 - 32 mmol/L [facility] Comment:Testing performed by : [address] [address] Anion gap 11 2 - 15 mmol/L [facility] Comment:Testing performed by : [address] [address] BUN 12 6 - 25 mg/dL [facility] Comment:Testing performed by : [address] [address] Creatinine 0.82 0.80 - 1.30 mg/dL [facility] Comment:Testing performed by : [address] [address] Glucose 108 70 - 199 mg/dL [facility] Comment: Interpretive [...] was last revised 2022. Testing performed by: [facility], [address] [place] [address], [address] Calcium 10.2 8.5 - 10.3 mg/dL [facility] Comment:Testing performed by : [address] [address] Bilirubin, total 0.4 0.1 - 1.2 mg/dL [facility] Comment:Testing performed by : [address], [address] Protein, pl 7.8 6.5 - 8.5 g/dL [facility] Comment:Testing performed by : [address] [address] Albumin 4.9 3.5 - 5.0 g/dL [facility] Comment:Testing performed by : [address], [address] Alk phos 65 40 - 130 Units/L [facility] Comment:Testing performed by : [address] [address] ALT 35 7 - 55 Units/L [facility] Comment:Testing performed by : [address] [address] AST 22 10 - 50 Units/L [facility] Comment:Testing performed by : [address] [address] Blood 09/12/2024 12:1 6 AM PAY STATION COLLECTOR 09/12/2024 12:34 AM PAY STATION COLLECTOR us Idris Crespo Jr., MD LAB BLOOD ORDERABLES Fi nal Result [facility] [address] [facility] Department [place] [address] * Urine culture Urine, clean voided (09/11/2024 2:21 PM PAY STATION COLLECTOR) Pathologist [facility] Urine culture [facility] Comment: CULTURE, URINE, ROUTINE Micro Number: [id number] Test Status: Final Specimen Source: Urine Specimen Quality: Adequate Result: No Growth Urine, clean voided 09/11/2024 2:21 PM PAY STATION COLLECTOR 09/12/2024 3:07 AM PAY STATION COLLECTOR Sivan CLAIRE LAB MICROBIOLOGY - [facility] AL ORDERABLES Final Result [facility] [address] [place] [address] * POCT urinalysis dipstick (09/11/2024 2:20 PM PAY STATION COLLECTOR) Color, Urine, POC Light Yellow Clarity, ur, POC Clear Clear Glucose, ur, POC Negative Negative MG/DL Bilirubin, ur, POC Negative Negative, Small, Moderate, Large Ketones, ur, POC Negative Negative Specific [place], POC 1.020 1.003 - 1.030 Blood, ur, POC Negative Negative pH, ur, POC 8.0 5.0 - 8.0 Protein, ur, POC Negative Negative Urobilinogen, urine, POC 0.2 0.2 - 1.0 mg/dL Nitrite, ur, POC Negative Negative Leukocytes, ur, POC Negative Negative Lot Number [id number] Urine 09/11/2024 2:20 PM PAY STATION COLLECTOR Sivan CLAIRE POINT OF CARE TEST ORDER ASTRID Final Result * HM COLONOSCOPY (09/07/2024) Historical Provider MD HEALTH MAINTENANCE Final Result * 24 HR Holter Monitor (09/05/2024 11:09 AM PAY STATION COLLECTOR) Anatomical Region Laterality Modality Electrocardiogra phy Narrative 09/08/2024 4:25 PM PAY STATION COLLECTOR Patient Id: Erick Pierre is a 24 y.o. male. MR#: [id number] Date of the procedure: September 05, 2024 [...] 09/08/2024 Sivan CLAIRE CV CARDIAC SERVICES PROC EDURES Final Result * Iron profile w/ IBC (08/31/2024 1:45 PM PAY STATION COLLECTOR) Pathologist [facility] Iron 91 50 - 195 mcg/dL [facility] TIBC 294 250 - 425 mcg/dL (calc) [facility] Iron saturation 31 20 - 48 % (calc) [facility] 08/31/2024 1:45 PM PAY STATION COLLECTOR 08/31/2024 1:45 PM PAY STATION COLLECTOR Sivan CLAIRE LAB BLOOD ORDERABLES Fin al Result [facility] [address] [place] [address] * Vitamin D 25 hydroxy (08/31/2024 1:45 PM PAY STATION COLLECTOR) [facility] Vitamin D 25-OH 58 30 - 100 ng/mL [facility] Comment: Vitamin D Status 25-OH Vitamin D: Deficiency: <20 ng/mL Insufficiency: 20 - 29 ng/mL Optimal: > or = 30 ng/mL For 25-OH Vitamin D testing on patients on D2-supplementation and patients for whom quantitation of D2 and D3 fractions is required, the [facility](TM) 25-OH VIT D, (D2,D3), LC/MS/MS is recommended: order code 47573 (patients >2yrs). See Note 1 Note 1 For additional information, please refer to http://education.[employer].AlterGeo/faq/OFQ741 (This link is being provided for informational/ educational purposes only.) Blood 08/31/2024 1:45 PM PAY STATION COLLECTOR 08/31/2024 1:45 PM PAY STATION COLLECTOR Sivan CLAIRE LAB BLOOD ORDERABLES Fin al Result Performing Organization Address [facility] Co de Phone Number [facility] [address] [place] [address] * (ABNORMAL) PTH (08/31/2024 1:45 PM PAY STATION COLLECTOR) Parathyroid hormone, intact 12(L) 16 - 77 pg/mL [facility] Comment: Interpretive Guide Intact PTH Calcium ------- Normal Parathyroid Normal Normal Hypoparathyroidism Low or Low Normal Low Hyperparathyroidism Primary Normal or High High Secondary High Normal or Low Tertiary High High Non-Parathyroid Hypercalcemia Low or Low Normal High Blood 08/31/2024 1:45 PM PAY STATION COLLECTOR 08/31/2024 1:45 PM PAY STATION COLLECTOR Sivan CLAIRE LAB BLOOD ORDERABLES Fin al Result Performing Organization Address [facility] de Phone Number [facility] [address] [place] [address] * Hemoglobin A1c (08/31/2024 1:45 PM PAY STATION COLLECTOR) Pathologist [facility] Hgb A1C 4.8 <5.7 % of total Hgb [facility] Comment: For the purpose of screening for the presence of diabetes: <5.7% Consistent with the absence of diabetes 5.7-6.4% Consistent with increased risk for diabetes (prediabetes) > or =6.5% Consistent with diabetes This assay result is consistent with a decreased risk of diabetes. Currently, no consensus exists regarding use of hemoglobin A1c for diagnosis of diabetes in children. According to [place] Diabetes Association (ADA) guidelines, hemoglobin A1c <7.0% represents optimal control in non- diabetic patients. Different metrics may apply to specific patient populations. Standards of Medical Care in Diabetes(ADA). Blood 08/31/2024 1:45 PM PAY STATION COLLECTOR 08/31/2024 1:45 PM PAY STATION COLLECTOR Sivan CLAIRE LAB BLOOD ORDERABLES Fin al Result [facility] [address] [place] [address] * Ferritin (08/31/2024 1:45 PM PAY STATION COLLECTOR) Pathologist [facility] Ferritin 279 38 - 380 ng/mL [facility] 08/31/2024 1:45 PM PAY STATION COLLECTOR 08/31/2024 1:45 PM PAY STATION COLLECTOR Sivan CLAIRE LAB BLOOD ORDERABLES Fin al Result Performing Organization Address [facility] Co de Phone Number [facility] [address] [place] [address] * Vitamin B12 (08/31/2024 1:45 PM PAY STATION COLLECTOR) [facility] Vitamin B12 769 200 - 1,100 pg/mL [facility] Blood 08/31/2024 1:45 PM PAY STATION COLLECTOR 08/31/2024 1:45 PM PAY STATION COLLECTOR Sivan CLAIRE LAB BLOOD ORDERABLES Fin al Result Performing Organization Address [facility] de Phone Number [facility] [address] [place] [address] * (ABNORMAL) Comprehensive metabolic panel (08/31/2024 1:45 PM PAY STATION COLLECTOR) [facility] Glucose 93 65 - 99 mg/dL [facility] Comment: Fasting reference interval BUN 13 7 - 25 mg/dL [facility] Creatinine 0.86 0.60 - 1.24 mg/dL [facility] eGFR 124 > OR = 60 mL/min/1.7 3m2 [facility] BUN/creat ratio SEE NOTE: 6 - 22 (calc) [facility] Comment: Not Reported: BUN and Creatinine are within reference range. Sodium 138 135 - 146 mmol/L [facility] Potassium, pl 4.4 3.5 - 5.3 mmol/L [facility] Chloride 101 98 - 110 mmol/L [facility] CO2 26 20 - 32 mmol/L [facility] Calcium 10.1 8.6 - 10.3 mg/dL [...] phos 46 36 - 130 U/L [facility] AST 25 10 - 40 U/L [facility] ALT (SGPT) 50(H) 9 - 46 U/L [facility] Blood 08/31/2024 1:45 PM PAY STATION COLLECTOR 08/31/2024 1:45 PM PAY STATION COLLECTOR us Sivan CLAIRE LAB BLOOD ORDERABLES Fin al Result REJI Babb [address] [place] [address] * CTA Abdomen Pelvis (08/27/2024 9:33 AM PAY STATION COLLECTOR) Anatomical Region Laterality Modality Body N/A Computed Tomogra phy 08/27/2024 10:0 4 AM PAY STATION COLLECTOR Narrative 08/27/2024 10:17 AM PAY STATION COLLECTOR EXAM DESCRIPTION: CTA ABDOMEN PELVIS REASON FOR [...] is a late venous phase. Per the engineering technologist the bolus tracking never triggered. Repeat [...] thickening. Normal appendix. No significant diverticular disease. Epvj-al-bcehnucj colonic stool burden may represent mild constipation [...] Ramon White M.D. MM: MM Report ID: [id number] Reading Location: [id number] Procedure Note Ramon White MD - 08/27/2024 [...] a.m. is a latevenous phase. Per the engineering technologist the bolus tracking never triggered.Repeat contrast [...] wall thickening. Normalappendix. No significant diverticular disease. Aidu-sn-zhdovejh colonic stoolburden may represent mild constipation in [...] Ramon White M.D. MM: MM Report ID: [id number] Reading Location: [place] [address] [facility] IM CT PROCEDURES F inal Result * Troponin T high-sensitivity 2-hour (08/27/2024 8:24 AM PAY STATION COLLECTOR) Trop T hs <6 <=22 ng/L Comment: Interpretive Data For further hscTnT resources including the diagnostic algorithm and an aid in interpretation, copy and paste this link: https://nrl.testcatalog.org/show/hsTrop Current Interpretive Data last revised 2020. Testing performed by: [facility], [address] [place] [address]., [address] Trop T hs delta 0 ng/L APURVA GIANG Comment:Testing performed by : [address] [address] Trop T hs interp Insignificant AP[facility]VA GIANG Comment:Testing performed by : [address] [address] Blood 08/27/2024 8:24 AM PAY STATION COLLECTOR 08/27/2024 8:26 AM PAY STATION COLLECTOR us Mello Ariza MD LAB BLOOD ORDERABLE S Final Result [facility] [address] [facility] Department of Laboratories [place], [place] [id number] * Urinalysis reflex to microscopic and culture Urine (08/27/2024 6:51 AM PAY STATION COLLECTOR) Color, ur Straw Yellow Comment:Testing performed by : [address] [address] Clarity, ur Clear Clear APURVA GIANG Comment:Testing performed by : [address] [address] Specific gravity, ur 1.006 1.003 - 1.030 AP[facility]VA GIANG Comment:Testing performed by : [address] [address] pH, urine 6.0 AP[facility] Comment: Interpretive Data U rine pH is affected by diet, medications, systemic acid-base disturbances, and renal tubular function. pH may affect urinary stone formation. For example, urine pH below 6.0 may help reduce the tendency for calcium phosphate stones and pH greater than 6.0 may reduce the tendency for uric acid stone formation. Source: [facility] Current Interpretive Data was last revised on 2017 Testing performed by: [address] [address] Protein, ur ql Negative Negative APURVA GIANG Comment:Testing performed by : [address] [address] Glucose, ur ql Negative Negative APURVA GIANG Comment:Testing performed by : [address] [address] Ketones, ur Negative Negative APURVA GIANG Comment:Testing performed by : [facility], [address] [place] [address]., [address] Bilirubin, ur Negative Negative APURAV Comment:Testing performed by : [address] [address] Blood, ur Negative Negative AP[facility]VA Comment:Testing performed by : [address], [place]., [address] Urobilinogen, ur <2.0 <2.0 mg/dL [facility] Comment:Testing performed by : [address], [place]., [address] Nitrite, ur Negative Negative [facility] Comment:Testing performed by : [address], [place]., [address] Leukocyte esterase, ur Negative Negative [facility] Comment:Testing performed by : [address], [place]., [address] UA reflex comment Reflex conditions for microscopic UA and culture not met. [facility]VA Comment:Testing performed by : [address] [address] Urine 08/27/2024 6:51 AM PAY STATION COLLECTOR 08/27/2024 6:56 AM PAY STATION COLLECTOR us Mello Ariza MD LAB MICROBIOLOGY - GENERAL ORDERABLES Final Result APURVA GIANG [address] [facility] Department of Laboratories [place], [place] [id number] * ECG 12 lead (08/27/2024 6:45 AM PAY STATION COLLECTOR) Ventricular Rate EKG/Min 50 BPM [facility] Atrial Rate 50 BPM [facility] OR-Interval (MSEC) 168 ms [facility] QRS-Interval (MSEC) 112 ms [facility] QT-Interval (MSEC) 416 ms [facility] QTc 379 ms [facility] P Mccurtain 13 degrees [facility] R [place] -16 degrees [facility] T [place] 2 degrees [facility] Diagnosis Sinus bradycardia with sinus arrhythmia Incomplete right bundle branch block Moderate voltage criteria for LVH, may be normal variant Borderline ECG No previous ECGs available Confirmed by TIMOTHY BEAUCHAMP M.D. ([id number]) on 08/28/2024 8:33:23 PM [facility] 08/27/2024 6:45 AM PAY STATION COLLECTOR 08/28/2024 8:33 PM PAY STATION COLLECTOR Mello Ariza MD ECG ORDERABLES Fin al Result Performing Organization Address City/[facility]/ZIP Co de Phone Number [facility] * Troponin T high-sensitivity series (baseline, 2hr, 4hr, 6hr) (08/27/2024 6:41 AM PAY STATION COLLECTOR) Trop T hs <6 <=22 ng/L Comment: Interpretive Data For further hscTnT resources including the diagnostic algorithm and an aid in interpretation, copy and paste this link: https://nrl.testcatalog.org/show/hsTrop Current Interpretive Data last revised 2020. Testing performed by: [address] [address] Blood 08/27/2024 6:41 AM PAY STATION COLLECTOR 08/27/2024 6:56 AM PAY STATION COLLECTOR Mello Ariza MD LAB BLOOD ORDERABLE S Final Result Performing Organization Address [facility] de Phone Number [id number] [employer] [place] [address] * Sepsis Lactate w/ Reflex (08/27/2024 6:41 AM PAY STATION COLLECTOR) Pathologist [facility] Sepsis Lactate 0.9 0.7 - 2.0 mmol/L Comment:Testing performed by : [address] [address] Blood 08/27/2024 6:41 AM PAY STATION COLLECTOR 08/27/2024 6:56 AM PAY STATION COLLECTOR Mello Ariza MD LAB BLOOD ORDERABLE S Final Result Performing Organization Address City/[facility] Co de Phone Number [id number] of [place] [address] * eGFR (08/27/2024 6:41 AM PAY STATION COLLECTOR) eGFR >90 >=60 mL/min/1. 73 m2 Comment: [...] was last reviewed 2021. Testing performed by: [address] [address] Blood 08/27/2024 6:41 AM PAY STATION COLLECTOR 08/27/2024 6:56 AM PAY STATION COLLECTOR us Mello Ariza MD LAB BLOOD ORDERABLE S Final Result [facility] [address] [facility] Department [place] [address] * Differential, auto (08/27/2024 6:41 AM PAY STATION COLLECTOR) Pathologist [facility] Neutrophil abs 4.7 1.5 - 6.5 K/cumm Comment:Testing performed by : [address] [address] Imm gran abs 0.0 0.0 - 0.1 K/cumm APURVA GIANG Comment:Testing performed by : [address] [address] Lymphocyte abs 2.4 0.8 - 3.3 K/cumm APURVA GIANG Comment:Testing performed by : [address] [address] Monocyte abs 0.7 0.2 - 0.8 K/cumm APURVA Comment:Testing performed by : [address] [address] Eosinophil abs 0.2 0.0 - 0.5 K/cumm [facility] Comment:Testing performed by : [address] [address] Basophil abs 0.0 0.0 - 0.1 K/cumm [facility] Comment:Testing performed by : [address] [address] Neutrophil pct 58.3 % [facility] Comment: Interpretive Data Percent cell count reference ranges are not reported, since discordance with absolute values may lead to misinterpretation of CBC data. Current Interpretive Data was last revised on 2017. Testing performed by: [address] [address] Imm gran pct 0.4 % [facility] Comment: Interpretive Data Percent cell count reference ranges are not reported, since discordance with absolute values may lead to misinterpretation of CBC data. Current Interpretive Data was last revised on 2017. Testing performed by: [address] [address] Lymphocyte pct 29.1 % [facility] Comment: Interpretive Data Percent cell count reference ranges are not reported, since discordance with absolute values may lead to misinterpretation of CBC data. Current Interpretive Data was last revised on 2017. Testing performed by: [address] [address] Monocyte pct 8.8 % [facility] Comment: Interpretive Data Percent cell count reference ranges are not reported, since discordance with absolute values may lead to misinterpretation of CBC data. Current Interpretive Data was last revised on 2017. Testing performed by: [address] [address] Eosinophil pct 3.0 % [facility] Comment: Interpretive Data Percent cell count reference ranges are not reported, since discordance with absolute values may lead to misinterpretation of CBC data. Current Interpretive Data was last revised on 2017. Testing performed by: [address] [address] Basophil pct 0.4 % APURVA GIANG Comment: Interpretive Data Percent cell count reference ranges are not reported, since discordance with absolute values may lead to misinterpretation of CBC data. Current Interpretive Data was last revised on 2017. Testing performed by: [address] [address] Blood 08/27/2024 6:41 AM PAY STATION COLLECTOR 08/27/2024 6:56 AM PAY STATION COLLECTOR Mello Ariza MD LAB BLOOD ORDERABLE S Final Result Performing Organization Address City/[facility] Co de Phone Number [address] [place] [address] * Thyroid Function Curry (08/27/2024 6:41 AM PAY STATION COLLECTOR) Pathologist [facility] TSH 1.51 0.30 - 4.20 mcIUnit/mL Comment:Testing performed by : [address] [address] Blood 08/27/2024 6:41 AM PAY STATION COLLECTOR 08/27/2024 6:56 AM PAY STATION COLLECTOR us Mello Ariza MD LAB BLOOD ORDERABLE S Final Result Performing Organization Address City/[facility] Co de Phone Number [address] [address] * (ABNORMAL) CBC with auto differential (08/27/2024 6:41 AM PAY STATION COLLECTOR) Pathologist [facility] WBC 8.1 3.8 - 9.9 K/cumm Comment:Testing performed by : [address] [address] Hgb 14.7 13.0 - 17.5 g/dL APURVA GIANG Comment:Testing performed by : [address] [address] Hct 41.7 38.9 - 50.3 % APURVA GIANG Comment:Testing performed by : [address], [address] Plt 307 150 - 400 K/cumm APURVA GIANG Comment:Testing performed by : [address] [address] MPV 10.0 9.1 - 12.3 fL APURVA GIANG Comment:Testing performed by : [address], [address] RBC 5.43 4.30 - 5.80 M/cumm APURVA GIANG Comment:Testing performed by : [address], [address] MCV 76.8(L) 81.3 - 96.4 fL APURVA GIANG Comment:Testing performed by : [address] [address] MCH 27.1 27.1 - 33.3 pg APURVA GIANG Comment:Testing performed by : [address], [address] MCHC 35.3 32.3 - 35.7 g/dL APURVA Comment:Testing performed by : [address], [address] RDW CV 14.0 11.1 - 14.9 % APURVA Comment:Testing performed by : [address], [address] RDW SD 38.5 35.7 - 48.1 fL AP[facility]VA Comment:Testing performed by : [address], [address] NRBC abs 0.00 0.00 - 0.01 K/cumm APURVA GIANG Comment:Testing performed by : [address], [address] Blood 08/27/2024 6:41 AM PAY STATION COLLECTOR 08/27/2024 6:56 AM PAY STATION COLLECTOR us Mello Ariza MD LAB BLOOD ORDERABLE S Final Result [facility] [address] Department [place] [address] * Protime-INR (08/27/2024 6:41 AM PAY STATION COLLECTOR) Pathologist [facility] PT 13.4 12.0 - 14.6 sec Comment:Testing performed by : [address] [address] INR 1.0 0.9 - 1.2 APURVA Comment: Ref Range High Interpretive data Oral anticoagulant therapeutic ranges: Venous thromboembolism prophylaxis or treatment: 2.0-3.0 CARDIOLOGY Standard range: 2.0-3.0 High-intensity range: 2.5-3.5 Refer to indication-specific guidelines for appropriate target ranges for prosthetic heart valve replacement. Current interpretive data was last revised on 2019. Testing performed by: [address] [address] Blood 08/27/2024 6:41 AM PAY STATION COLLECTOR 08/27/2024 6:56 AM PAY STATION COLLECTOR Mello Ariza MD LAB BLOOD ORDERABLE S Final Result Performing Organization Address City/[facility]/ZIP Co de Phone Number [address] [address] * Lipase (08/27/2024 6:41 AM PAY STATION COLLECTOR) [facility] Lipase 23 10 - 99 Units/L Comment:Testing performed by : [address] [address] Blood 08/27/2024 6:41 AM PAY STATION COLLECTOR 08/27/2024 6:56 AM PAY STATION COLLECTOR Mello Ariza MD LAB BLOOD ORDERABLE S Final Result [address] [address] * (ABNORMAL) Comprehensive metabolic panel (08/27/2024 6:41 AM PAY STATION COLLECTOR) [facility] Sodium 138 135 - 145 mmol/L Comment:Testing performed by : [address] [address] Potassium, pl 4.6 3.3 - 4.9 mmol/L [facility] Comment: Hemolyzed; Potassium value may be falsely elevated by as much as 1.0 mmol/L. Suggest redraw and reanalysis. Testing performed by: [address], [place]., [address] Chloride 102 97 - 110 mmol/L [facility] Comment:Testing performed by : [address], [place]., [address] CO2 23 22 - 32 mmol/L [facility] Comment:Testing performed by : [address], [place]., [address] Anion gap 13 2 - 15 mmol/L [facility] Comment:Testing performed by : [address], [place]., [address] BUN 13 6 - 25 mg/dL [facility] Comment:Testing performed by : [address], [place]., [address] Creatinine 0.82 0.80 - 1.30 mg/dL [facility] Comment:Testing performed by : [address] [address] Glucose 93 70 - 199 mg/dL [facility] Comment: Interpretive Data Fasting glucose >/= [...] was last revised 2022. Testing performed by: [address], [place]., [address] Calcium 10.8(H) 8.5 - 10.3 mg/dL [facility] Comment:Testing performed by : [address], [place]., [address] Bilirubin, total 0.5 0.1 - 1.2 mg/dL APURVA GIANG Comment:Testing performed by : [facility], [address] [place] [address]., [address] Protein, pl 7.6 6.5 - 8.5 g/dL APURVA GIANG Comment:Testing performed by : [address] [address] Albumin 4.8 3.5 - 5.0 g/dL AP[facility]VA Comment:Testing performed by : [address] [address] Alk phos 58 40 - 130 Units/L AP[facility]VA Comment:Testing performed by : [address] [address] ALT 60(H) 7 - 55 Units/L [facility] Comment:Testing performed by : [address] [address] AST 41 10 - 50 Units/L [facility] Comment: Hemolyzed; result may be falsely elevated Testing performed by: [address] [address] Blood 08/27/2024 6:41 AM PAY STATION COLLECTOR 08/27/2024 6:56 AM PAY STATION COLLECTOR us Mello Ariza MD LAB BLOOD ORDERABLE S Final Result [facility] [address] [facility] Department of Laboratories [place], [place] [id number] * eGFR (08/08/2024 9:27 AM PAY STATION COLLECTOR) eGFR >90 >=60 mL/min/1. 73 m2 Comment: [...] was last reviewed 2021. Testing performed by: [address] [address] Blood 08/08/2024 9:27 AM PAY STATION COLLECTOR 08/08/2024 9:32 AM PAY STATION COLLECTOR us Iglesia Triplett MD LAB BLOOD ORDERABLES Final Resul t [facility] Department [place] [address] * Differential, auto (08/08/2024 9:27 AM PAY STATION COLLECTOR) Neutrophil abs 6.1 1.5 - 6.5 K/cumm Comment:Testing performed by : [address] [address] Imm gran abs 0.1 0.0 - 0.1 K/cumm APURVA Comment:Testing performed by : [address] [address] Lymphocyte abs 2.0 0.8 - 3.3 K/cumm AP[facility]VA Comment:Testing performed by : [address] [address] Monocyte abs 0.6 0.2 - 0.8 K/cumm AP[facility] Comment:Testing performed by : [address] [address] Eosinophil abs 0.1 0.0 - 0.5 K/cumm AP[facility] Comment:Testing performed by : [address] [address] Basophil abs 0.0 0.0 - 0.1 K/cumm AP[facility]VA Comment:Testing performed by : [address] [address] Neutrophil pct 68.6 % [facility] Comment: Interpretive Data Percent cell count reference ranges are not reported, since discordance with absolute values may lead to misinterpretation of CBC data. Current Interpretive Data was last revised on 2017. Testing performed by: [address] [address] Imm gran pct 0.6 % [facility] Comment: Interpretive Data Percent cell count reference ranges are not reported, since discordance with absolute values may lead to misinterpretation of CBC data. Current Interpretive Data was last revised on 2017. Testing performed by: [address] [address] Lymphocyte pct 22.6 % [facility] Comment: Interpretive Data Percent cell count reference ranges are not reported, since discordance with absolute values may lead to misinterpretation of CBC data. Current Interpretive Data was last revised on 2017. Testing performed by: [address] [address] Monocyte pct 6.6 % [facility] Comment: Interpretive Data Percent cell count reference ranges are not reported, since discordance with absolute values may lead to misinterpretation of CBC data. Current Interpretive Data was last revised on 2017. Testing performed by: [address] [address] Eosinophil pct 1.3 % [facility] Comment: Interpretive Data Percent cell count reference ranges are not reported, since discordance with absolute values may lead to misinterpretation of CBC data. Current Interpretive Data was last revised on 2017. Testing performed by: [address] [address] Basophil pct 0.3 % [facility] Comment: Interpretive Data Percent cell count reference ranges are not reported, since discordance with absolute values may lead to misinterpretation of CBC data. Current Interpretive Data was last revised on 2017. Testing performed by: [address] [address] Blood 08/08/2024 9:27 AM PAY STATION COLLECTOR 08/08/2024 9:32 AM PAY STATION COLLECTOR us Iglesia Triplett MD LAB BLOOD ORDERABLES Final Resul t [facility] [address] [facility] Department [place] [address] * (ABNORMAL) Urinalysis reflex to microscopic and culture Urine (08/08/2024 9:27 AM PAY STATION COLLECTOR) Color, ur Yellow Yellow Comment:Testing performed by : [address] [address] Clarity, ur Clear Clear AP[facility]VA Comment:Testing performed by : [address] [address] Specific gravity, ur 1.014 1.003 - 1.030 [facility] Comment:Testing performed by : [address] [address] pH, urine 6.0 [facility] Comment: Interpretive Data U rine pH is affected by diet, medications, systemic acid-base disturbances, and renal tubular function. pH may affect urinary stone formation. For example, urine pH below 6.0 may help reduce the tendency for calcium phosphate stones and pH greater than 6.0 may reduce the tendency for uric acid stone formation. Source: [facility] Current Interpretive Data was last revised on 2017 Testing performed by: [address] [address] Protein, ur ql Negative Negative [facility]VA Comment:Testing performed by : [address] [address] Glucose, ur ql Negative Negative [facility] Comment:Testing performed by : [address] [address] Ketones, ur 1+(A) Negative APURVA GIANG Comment:Testing performed by : [address] [address] Bilirubin, ur Negative Negative APURVA GIANG Comment:Testing performed by : [address] [address] Blood, ur Negative Negative APURVA GIANG Comment:Testing performed by : [address] [address] Urobilinogen, ur <2.0 <2.0 mg/dL APURVA GIANG Comment:Testing performed by : [address] [address] Nitrite, ur Negative Negative APURVA GIANG Comment:Testing performed by : [address] [address] Leukocyte esterase, ur Negative Negative APURVA GIANG Comment:Testing performed by : [address] [address] UA reflex comment Reflex conditions for microscopic UA and culture not met. APURVA GIANG Comment:Testing performed by : [address] [address] Urine 08/08/2024 9:27 AM PAY STATION COLLECTOR 08/08/2024 9:32 AM PAY STATION COLLECTOR us Iglesia Triplett MD LAB MICROBIOLOGY - GENERAL ORDER ASTRID Final Result [facility] [address] [facility] Department [place] [address] * (ABNORMAL) CBC with auto differential (08/08/2024 9:27 AM PAY STATION COLLECTOR) WBC 8.9 3.8 - 9.9 K/cumm Comment:Testing performed by : [address] [address] Hgb 15.3 13.0 - 17.5 g/dL APURVA GIANG Comment:Testing performed by : [address] [address] Hct 44.0 38.9 - 50.3 % AP[facility] GIANG Comment:Testing performed by : [address] [address] Plt 305 150 - 400 K/cumm APURVA GIANG Comment:Testing performed by : [address] [address] MPV 10.0 9.1 - 12.3 fL AP[facility] GIANG Comment:Testing performed by : [address] [address] RBC 5.68 4.30 - 5.80 M/cumm APURVA GIANG Comment:Testing performed by : [address] [address] MCV 77.5(L) 81.3 - 96.4 fL [facility] Comment:Testing performed by : [address] [address] MCH 26.9(L) 27.1 - 33.3 pg APURVA GIANG Comment:Testing performed by : [address] [address] MCHC 34.8 32.3 - 35.7 g/dL APURVA GIANG Comment:Testing performed by : [address], [address] RDW CV 14.2 11.1 - 14.9 % [facility] Comment:Testing performed by : [address], [address] RDW SD 38.9 35.7 - 48.1 fL [facility] Comment:Testing performed by : [address] [address] NRBC abs 0.00 0.00 - 0.01 K/cumm AP[facility]VA Comment:Testing performed by : [address], [address] Blood (Blood, Venous) 08/08/2024 9:27 AM PAY STATION COLLECTOR 08/08/2024 9:32 AM PAY STATION COLLECTOR us Iglesia Triplett MD LAB BLOOD ORDERABLES Final Resul t Performing Organization Address City/[facility]/ZIP Co de Phone Number [place] [phone] [facility] Department [place] [address] * Lipase (08/08/2024 9:27 AM PAY STATION COLLECTOR) Lipase 16 10 - 99 Units/L Comment:Testing performed by : [address] [address] Blood (Blood, Venous) 08/08/2024 9:27 AM PAY STATION COLLECTOR 08/08/2024 9:32 AM PAY STATION COLLECTOR us Iglesia Triplett MD LAB BLOOD ORDERABLES Final Resul t [facility] [address] [facility] Department [place] [address] * Comprehensive metabolic panel (08/08/2024 9:27 AM PAY STATION COLLECTOR) Sodium 137 135 - 145 mmol/L Comment:Testing performed by : [address] [address] Potassium, pl 3.7 3.3 - 4.9 mmol/L [facility] Comment:Testing performed by : [address], [place]., [address] Chloride 103 97 - 110 mmol/L [facility] Comment:Testing performed by : [address] [address] CO2 24 22 - 32 mmol/L [facility] Comment:Testing performed by : [address], [place]., [address] Anion gap 10 2 - 15 mmol/L [facility] Comment:Testing performed by : [address] [address] BUN 9 6 - 25 mg/dL [facility] Comment:Testing performed by : [address], [place]., [address] Creatinine 0.80 0.80 - 1.30 mg/dL [facility] Comment:Testing performed by : [address] [address] Glucose 91 70 - 199 mg/dL [facility] [...] was last revised 2022. Testing performed by: [address] [address] Calcium 9.7 8.5 - 10.3 mg/dL [facility] Comment:Testing performed by : [address] [address] Bilirubin, total 0.8 0.1 - 1.2 mg/dL [facility] Comment:Testing performed by : [address] [address] Protein, pl 7.3 6.5 - 8.5 g/dL [facility] Comment:Testing performed by : [address] [address] Albumin 4.7 3.5 - 5.0 g/dL [facility] Comment:Testing performed by : [address] [address] Alk phos 62 40 - 130 Units/L [facility] Comment:Testing performed by : [address] [address] ALT 26 7 - 55 Units/L [facility] Comment:Testing performed by : [address] [address] AST 18 10 - 50 Units/L [facility] Comment:Testing performed by : [address] [address] Blood 08/08/2024 9:27 AM PAY STATION COLLECTOR 08/08/2024 9:32 AM PAY STATION COLLECTOR us Iglesia Triplett MD LAB BLOOD ORDERABLES Final Resul t Performing Organization Address City/State/[facility] Co de Phone Number [place] [phone] [facility] Department [place] [address] * CT Abdomen Pelvis W Contrast (08/05/2024 6:19 PM PAY STATION COLLECTOR) Anatomical Region Laterality Modality Body N/A Computed Tomogra phy 08/05/2024 6:26 PM PAY STATION COLLECTOR Impressions 08/05/2024 6:30 PM PAY STATION COLLECTOR No acute finding in the abdomen or pelvis. Dictated by: James Harrell MD PHD The radiology attending physician has personally reviewed this study, and had reviewed and/or edited this written report and agrees with it. Electronically signed by: Bishop Viramontes M.D. Narrative 08/05/2024 6:30 PM PAY STATION COLLECTOR EXAMINATION: CT ABDOMEN PELVIS W CONTRAST HISTORY: [...] it. Electronically signed by: Bishop Viramontes M.D. us Wesley Tompkins NP IMG CT PROCEDURES Final Result * eGFR (08/05/2024 5:15 PM PAY STATION COLLECTOR) eGFR >90 >=60 mL/min/1. 73 m2 Comment: [...] last reviewed 2021. Blood 08/05/2024 5:15 PM PAY STATION COLLECTOR 08/05/2024 5:25 PM PAY STATION COLLECTOR Isacc Carolina MD LAB BLOOD ORDERABLES F inal Result [facility] Department [place] [address] * (ABNORMAL) Differential, auto (08/05/2024 5:15 PM PAY STATION COLLECTOR) Neutrophil abs 9.1(H) 1.5 - 6.5 K/cumm Imm gran abs 0.1 0.0 - 0.1 K/cumm [facility] Lymphocyte abs 1.7 0.8 - 3.3 K/cumm [facility] Monocyte abs 0.7 0.2 - 0.8 K/cumm [facility] Eosinophil abs 0.0 0.0 - 0.5 K/cumm [facility] Basophil abs 0.0 0.0 - 0.1 K/cumm [facility] Neutrophil pct 77.2 % [facility] Comment: Interpretive Data Percent cell count reference ranges are not reported, since discordance with absolute values may lead to misinterpretation of CBC data. Current Interpretive Data was last revised on 2017. Imm gran pct 1.2 % [facility] Comment: Interpretive Data Percent cell count reference ranges are not reported, since discordance with absolute values may lead to misinterpretation of CBC data. Current Interpretive Data was last revised on 2017. Lymphocyte pct 14.7 % [facility] Comment: Interpretive Data Percent cell count reference ranges are not reported, since discordance with absolute values may lead to misinterpretation of CBC data. Current Interpretive Data was last revised on 2017. Monocyte pct 6.3 % [facility] Comment: Interpretive Data Percent cell count reference ranges are not reported, since discordance with absolute values may lead to misinterpretation of CBC data. Current Interpretive Data was last revised on 2017. Eosinophil pct 0.3 % [facility] Comment: Interpretive Data Percent cell count reference ranges are not reported, since discordance with absolute values may lead to misinterpretation of CBC data. Current Interpretive Data was last revised on 2017. Basophil pct 0.3 % [facility] Comment: Interpretive Data Percent cell count reference ranges are not reported, since discordance with absolute values may lead to misinterpretation of CBC data. Current Interpretive Data was last revised on 2017. Blood 08/05/2024 5:15 PM PAY STATION COLLECTOR 08/05/2024 5:25 PM PAY STATION COLLECTOR us Isacc Carolina MD LAB BLOOD ORDERABLES F inal Result [facility] Department [place] [address] * (ABNORMAL) Urinalysis reflex to microscopic (08/05/2024 5:15 PM PAY STATION COLLECTOR) Color, ur Straw Yellow Clarity, ur Clear Clear [facility] Specific gravity, ur 1.017 1.003 - 1.030 [facility] pH, urine 7.5 [facility] Comment: Interpretive Data U rine pH is affected by diet, medications, systemic acid-base disturbances, and renal tubular function. pH may affect urinary stone formation. For example, urine pH below 6.0 may help reduce the tendency for calcium phosphate stones and pH greater than 6.0 may reduce the tendency for uric acid stone formation. Source: [facility] [employer] Current Interpretive Data was last revised on 2017 Protein, ur ql Trace Negative [facility] Glucose, ur ql Negative Negative [facility] Ketones, ur 2+(A) Negative [facility] Bilirubin, ur Negative Negative [facility] Blood, ur Negative Negative [facility] Urobilinogen, ur <2.0 <2.0 mg/dL [facility] Nitrite, ur Negative Negative [facility] Leukocyte esterase, ur Negative Negative [facility] UA reflex comment Reflex conditions for microscopic UA not met. [facility] Urine 08/05/2024 5:15 PM PAY STATION COLLECTOR 08/05/2024 5:20 PM PAY STATION COLLECTOR Isacc Carolina MD LAB URINE ORDERABLES F inal Result [facility] Department [place] [address] * (ABNORMAL) CBC with auto differential (08/05/2024 5:15 PM PAY STATION COLLECTOR) WBC 11.8(H) 3.8 - 9.9 K/cumm Hgb 17.0 13.0 - 17.5 g/dL [facility] Hct 48.5 38.9 - 50.3 % [facility] Plt 384 150 - 400 K/cumm [facility] MPV 10.2 9.1 - 12.3 fL [facility] RBC 6.30(H) 4.30 - 5.80 M/cumm [facility] MCV 77.0(L) 81.3 - 96.4 fL [facility] MCH 27.0(L) 27.1 - 33.3 pg [facility] MCHC 35.1 32.3 - 35.7 g/dL [facility] RDW CV 14.3 11.1 - 14.9 % [facility] RDW SD 37.9 35.7 - 48.1 fL [facility] NRBC abs 0.00 0.00 - 0.01 K/cumm [facility] Blood (Blood, Venous) 08/05/2024 5:15 PM PAY STATION COLLECTOR 08/05/2024 5:25 PM PAY STATION COLLECTOR Isacc Carolina MD LAB BLOOD ORDERABLES F inal Result Performing Organization Address City/[facility]/ZIP Co de Phone Number [facility] Department [place] [address] * Lipase (08/05/2024 5:15 PM PAY STATION COLLECTOR) [facility] Lipase 20 10 - 99 Units/L Blood (Blood, Venous) 08/05/2024 5:15 PM PAY STATION COLLECTOR 08/05/2024 5:25 PM PAY STATION COLLECTOR Isacc Carolina MD LAB BLOOD ORDERABLES F inal Result Performing Organization Address City/[facility]/ZIP Co de Phone Number [facility] Department [place] [address] * (ABNORMAL) Comprehensive metabolic panel (08/05/2024 5:15 PM PAY STATION COLLECTOR) [facility] Sodium 140 135 - 145 mmol/L Potassium, pl 4.7 3.3 - 4.9 mmol/L [facility] Comment:Hemolyzed; Potassium value may be falsely elevated by as much as 0.6-1.0 mmol/L. Suggest redraw and reanalysis. Chloride 99 97 - 110 mmol/L [facility] CO2 27 22 - 32 mmol/L [facility] Anion gap 14 2 - 15 mmol/L [facility] BUN 12 6 - 25 mg/dL [facility] Creatinine 0.91 0.80 - 1.30 mg/dL [facility] Glucose 97 70 - 199 mg/dL [facility] Comment: Interpretive Data Fasting glucose >/= [...] Calcium 10.5(H) 8.5 - 10.3 mg/dL [facility] Bilirubin, total 0.8 0.1 - 1.2 mg/dL [facility] Protein, pl 8.5 6.5 - 8.5 g/dL [facility] Albumin 5.3(H) 3.5 - 5.0 g/dL [facility] Alk phos 74 40 - 130 Units/L [facility] ALT 39 7 - 55 Units/L [facility] AST 35 10 - 50 Units/L [facility] Comment:Hemolyzed; result ma y be falsely elevated Blood 08/05/2024 5:15 PM PAY STATION COLLECTOR 08/05/2024 5:25 PM PAY STATION COLLECTOR Isacc Carolina MD LAB BLOOD ORDERABLES F inal Result [facility] [place] [address] from Last 3 Months Insurance [facility] Care Teams Lineworker Relationship Specialty Start Date End Date Sivan Boyd PA [phone] [address] PCP - General Family Medicine 08/24/24
--- OUTSIDE RECORDS SUMMARY | 2024-09-24 13:38 | XMS_ITS | Data Portability ---
Author Organization [facility] MELODYDarvin Sabillon Address [address] [place] [address] Care Team Providers Care Cloth Stretcher Name Role Phone IRENE DANG Primary Care Provider [phone] Assessment Encounter Date Assessment Date Assessment LastModified by Organization Details LastModified Time 11/24/2023 11/24/2023 Sections of the HPI, exam and assessment completed by DAKOTAH Nam student and have been reviewed by me. I agree with the exam findings, assessment and plan except where specifically documented or amended. -Irene Dang, [facility], EVELYN Not available 11/24/2023 14:25:25 Plan of Treatment Reminders Order Date Submit Date Provider Last Modified By Organization Details Last Modified Time Details Appointments None recorded. Lab H pylori urea breath test, co2 infrared 2024 025 [facility] (Lab), [address] [place], [address], 5 16:10:01 H pylori urea breath test, co2 infrared 2023 024 [facility] (Lab), [address] [place], [address], 4 16:13:40 H pylori urea breath test, co2 infrared 2023 024 [facility] (Lab), [address] [place], [address], 4 16:16:13 culture, urine 2022 023 [facility], [address] [place] [address] [address], [place], [address], 3 02:06:36 urinalysis , dipstick 2022 023 [facility] In-Office Order, Internal Use Only DO Not Attach Compendium DO Not Attach Compendium, Do Not Delete/merge, [id number] 3 16:55:15 Referral gastroente rologist referral 2023 024 [facility], [address], [place], [address], 4 17:01:52 Procedures gastric emptying study (PROC) 2024 025 API-830 [facility], [address] [facility], [place], [address], 5 15:39:46 Surgeries None recorded. Imaging None recorded. Medication Orders Senna with Docusate Sodium 8.6 mg-50 mg tablet 2024 025 [place] [facility][id number], [address] [facility], [place], [place], [id number], 5 12:09:10 lactulose 10 gram/15 mL oral solution 2024 025 [facility] #[id number], [address] [facility], [place], [place], [id number], 5 12:09:07 pantoprazo le 40 mg tablet,del ayed release 2023 024 [facility] #[id number], [address] [facility], [place], [place], [id number], 4 15:34:55 Patient TargetsNo targets recorded. 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 Gastroesophageal reflux disease without esophagitis Referring Physician: Irene Dang, Family Medicine, Encounter Date: 11/24/2023 Results Created Date Observation Date Name Description Value Unit Range Abnormal Flag Note LastModifiedBy Organization Detail LastModifiedTime 07/22/2007/25/2023 URINE CULTU RE, ROUTI NE urine culture, routine Final report Not Available [facility] ([facility]) [address] [facility], [place], [address], 07/25/2023 02:06:36 07/22/2007/25/2023 URINE CULTU RE, ROUTI NE result 1 Commen t Cultu re shows less than 10,00 0 colon y formi ng units of bacte kourtney per quinton liter of urine . This colon y count is not gener ally consi dered to be clini jonathan signi fican t. Not Available [facility] ([facility]) [address] [facility], [place], [address], 07/25/2023 02:06:36 07/23/2007/23/2023 urina lysis , dipst ick Leukocytes Negati ve Not Available In-Office Order Internal Use Only DO Not Attach Compendium DO Not Attach Compendium, Do Not Delete/merge, [id number] 07/22/2023 12:27:57 07/23/20 23 07/23/2023 urina lysis , dipst ick Nitrite negati ve Not Available In-Office Order Internal Use Only DO Not Attach Compendium DO Not Attach Compendium, Do Not Delete/merge, [id number] 07/22/2023 12:27:57 07/23/20 23 07/23/2023 urina lysis , dipst ick Urobilinogen .2 Not Available In-Of fice Order Internal Use Only DO Not Attach Compendium DO Not Attach Compendium, Do Not Delete/merge, [id number] 07/22/2023 12:27:57 07/23/20 23 07/23/2023 urina lysis , dipst ick Protein Negati ve Not Available In-Office Order Internal Use Only DO Not Attach Compendium DO Not Attach Compendium, Do Not Delete/merge, [id number] 07/22/2023 12:27:57 07/23/20 23 07/23/2023 urina lysis , dipst ick pH 6.0 Not Available In-Office Order Internal Use Only DO Not Attach Compendium DO Not Attach Compendium, Do Not Delete/merge, [id number] 07/22/2023 12:27:57 07/23/20 23 07/23/2023 urina lysis , dipst ick Blood Negati ve Not Available In-Office Order Internal Use Only DO Not Attach Compendium DO Not Attach Compendium, Do Not Delete/merge, [id number] 07/22/2023 12:27:57 07/23/20 23 07/23/2023 urina lysis , dipst ick Specific Nichols 1.015 Not Available In-Off ice Order Internal Use Only DO Not Attach Compendium DO Not Attach Compendium, Do Not Delete/merge, [id number] 07/22/2023 12:27:57 07/23/20 23 07/23/2023 urina lysis , dipst ick Ketone Negati ve Not Available In-Office Order Internal Use Only DO Not Attach Compendium DO Not Attach Compendium, Do Not Delete/merge, [id number] 07/22/2023 12:27:57 07/23/20 23 07/23/2023 urina lysis , dipst ick Bilirubin Negati ve Not Available In-Office Order Internal Use Only DO Not Attach Compendium DO Not Attach Compendium, Do Not Delete/merge, [id number] 07/22/2023 12:27:57 07/23/20 23 07/23/2023 urina lysis , dipst ick Glucose Negati ve Not Available In-Office Order Internal Use Only DO Not Attach Compendium DO Not Attach Compendium, Do Not Delete/merge, [id number] 07/22/2023 12:27:57 07/23/20 23 07/23/2023 urina lysis , dipst ick Appearance Clear Not Available In-Offi ce Order Internal Use Only DO Not Attach Compendium DO Not Attach Compendium, Do Not Delete/merge, [id number] 07/22/2023 12:27:57 07/23/20 23 07/23/2023 urina lysis , dipst ick Color Dark Yellow Not Available In-Office Order Internal Use Only DO Not Attach Compendium DO Not Attach Compendium, Do Not Delete/merge, [id number] 07/22/2023 12:27:57 12/14/19 24 12/16/2023 H PYLOR I BREAT H TEST H pylori breath test *ABNO RMAL* Posit brenda [facility]: [facility] [address] [place] [address] Lab Direc tor: Morgan arguello PhD, Phone : [phone] Not Available [facility] (Lab) [address] [place], [address], 12/16/2023 16:16:13 04/10/20 24 04/12/2024 H PYLOR I BREAT H TEST H pylori breath test Negat brenda [facility]med [facility]: [facility] [address] [place] [address] Lab Direc tor: Mogran arguello PhD, Phone : [phone] Not Available [facility] (Lab) [address] [place], [address], 04/12/2024 16:13:40 08/10/19 25 08/13/2024 H PYLOR I BREAT H TEST H pylori breath test Negat brenda [facility]med [facility]: [facility] [address] [place], [place] [address] Lab Direc tor: Morgan arguello PhD, Phone : [phone] Not Available [facility] (Lab) [address] [place], [address], 08/13/2024 16:10:00 08/23/19 25 08/24/2024 H. PYLOR I STOOL AG, EIA H. pylori stool Ag, EIA Negati ve negati ve [facility]med at: [facility] - [facility] [address] [place], [place] [address] Lab Direc tor: Morgan arguello PhD, Phone : [phone] Not Available [facility] (Lab) [address] [place], [address], 08/24/2024 11:12:22 08/23/19 25 08/24/2024 GIARD IA LAMBL IA AG, EIA giardia lamblia Ag, EIA Negat brenda Not Available [facility] (Lab) [address] [place], [address], 08/24/2024 14:10:53 08/23/19 25 08/24/2024 CRYPT OSPOR IDIUM EIA cryptosporid ium EIA Negat brenda Perfo rmed at: 01 - [facility] n [address] [place], [place] [address] Lab Direc tor: Morgan arguello PhD, Phone : [phone] Not Available [facility] (Lab) [address] [place], [address], 08/24/2024 14:10:53 08/23/19 25 08/24/2024 GIARD IA LAMBL IA AG, EIA giardia lamblia Ag, EIA Negat brenda Not Available [facility] (Lab) [address] [place], [address], 08/24/2024 14:10:55 08/23/19 25 08/24/2024 CRYPT OSPOR IDIUM EIA cryptosporid ium EIA Negat brenda Perfo rmed at: 01 - [facility] n [address] [facility] [place], [place] [address] Lab Direc tor: Morgan arguello PhD, Phone : [phone] Not Available [facility] (Lab) [address] [place], [address], 08/24/2024 14:10:55 08/23/1908/25/2024 OVA + KELLY ITE EXAM ova + parasite exam No ova, cysts , or kelly ites seen. One negat brenda speci men does not rule out the possi bilit y of a kelly itic infec tion. These resul ts were obtai yesika using wet prepa ratio n(s) and trich arcenio stain ed smear . This test does not inclu de testi ng for Crypt ospor idium parvu m, Cyclo spora , or Micro spori odalys. Perfo rmed at: 01 - [facility] n [address] [place] [address] Lab Direc tor: Morgan arguello PhD, Phone : [phone] Not Available [facility] (Lab) [address] [place], [address], 08/25/2024 19:13:17 08/23/19 25 08/24/2024 GIARD IA LAMBL IA AG, EIA giardia lamblia Ag, EIA Negat brenda Not Available [facility] (Lab) [address] [place], [address], 08/25/2024 19:13:18 08/23/19 25 08/24/2024 CRYPT OSPOR IDIUM EIA cryptosporid ium EIA Negat brenda Perfo rmed at: 01 - [facility] n [address] [place] [address] Lab Direc tor: Morgan arguello PhD, Phone : [phone] Not Available [facility] (Lab) [address] [place], [address], 08/25/2024 19:13:18 08/23/1908/26/2024 C DIFFI CILE TOXIN S A+B, EIA C difficile toxins A+B, EIA Negati ve negati ve [facility]: [facility] - [facility] [address] [place] [address] Lab Direc tor: Morgan arguello PhD, Phone : [phone] Not Available [facility] (Lab) [address] [place] [address], [address], 08/26/2024 14:09:12 08/23/19 25 08/24/2024 H. PYLOR I STOOL AG, EIA H. pylori stool Ag, EIA Negati ve negati ve Perfo rmed at: 01 - [facility] n [address] [facility], [facility] [place], [place] [address] Lab Direc tor: Morgan arguello PhD, Phone : [phone] Not Available [facility] (Lab) [address] [place] [address], [address], 08/26/2024 14:09:13 08/23/19 25 08/28/2024 PANCR EATIC ELAST ASE, FECAL pancreatic elastase, fecal >800 >200 Resul t Units : ug Elast ./g Sever e Pancr eatic Insuf ficie ncy: <100 Moder ate Pancr eatic Insuf ficie ncy: 100 - 200 Irma l: >200 [facility]: [facility] - [facility] [place] [address] [place] [address] Lab Direc tor: Brenda lopez MD, Phone : [phone] Not Available [facility] (Lab) [address] [place], [address], 08/28/2024 04:11:16 08/23/1908/28/2024 CALPR OTECT IN, FECAL calprotectin , fecal 12 ug/g 0-120 Monica ntrat ion Inter preta tion Follo w-Up < 5 - 50 ug/g Irma l None >50 -120 ug/g Borde rline Re-ev aluat e in 4-6 weeks >120 ug/g Abnor mal Repea t as clini jonathan indic ated Perfo rmed at: [facility] - [facility] [place] [facility] [address] [facility] [place] [address] Lab Direc tor: Brenda lopez MD, Phone : [phone] Not Available [facility] (Lab) [address] [place], [address], 08/28/2024 12:15:00 08/23/19 25 08/28/2024 PANCR EATIC ELAST ASE, FECAL pancreatic elastase, fecal >800 >200 Resul t Units : ug Elast ./g Sever e Pancr eatic Insuf ficie ncy: <100 Moder ate Pancr eatic Insuf ficie ncy: 100 - 200 Irma l: >200 Perfo rmed at: 01 - [facility] [place] [address] , [place] [address] Lab Direc tor: Brenda lopez MD, Phone : [phone] Not Available [facility] (Lab) [address], [place], [address], 08/28/2024 12:15:01 08/24/19 25 08/22/2024 gastr ic empty ing study (PROC ) No observ ation record ed. BARCODE Not Available 2024 13:24:54 Result Notes None recorded. Problems Name Problem SNOMED Code Status Onset Date Resolution Date Notes Provider Name and Address Organization Details Recorded Time Morbid obesity 764519239 Active 2022 DAKOTAH FARIA Attn: Olivier mishra,[address] [place], [address], [place] - [facility] 3 10:38:22 Mixed anxiety and depressive disorder 112217108 Active 2022 DAKOTAH FARIA Attn: Olivier mishra,[address] [place], [address], [place] [facility] 3 10:38:20 Essential hypertension 83144661 Active 2022 DAKOTAH FARIA Attn: Olivier mishra,[address] [place], [address], [place] [facility] 3 10:38:19 Gastroesophage al reflux disease without esophagitis 923750356 Active 2023 DAKOTAH FARIA Attn: Olivier mishra,[address] [facility], [place], [address], [facility] - SI 4 19:50:39 Notes:fatty liver disease..p re diabetic Problem Notes None recorded. Procedures Surgical History Date Name Laterality Status Provider Name and Address Organization Details Recorded Time Remove tonsils and adenoids completed Linda Singh MA [place] [facility] 09/11/2022 14:01:41 Imaging Results Imaging [...] mg tablet TAKE 2 TABLETS BY MOUTH FOR 1 DAY THEN TAKE 1 TABLET BY MOUTH DAILY [...] pantoprazol e 40 mg tablet,rell yed release TAKE 1 TABLET BY MOUTH EVERY DAY active Not Available Not Available No t [...] Updated DateTime 4 182.88 cm 39.7 kg/m2 922343. 56 g 97 % 97 % 86 /min 16 /min 143 mm[Hg] 80 mm[Hg] Linda Singh MA [facility] 14:01:38 Date Recorded Systolic blood pressure Diastolic blood pressure Provider Name and Address Organization Details Last Updated DateTime 11/24/2023 150 mm[Hg] 90 mm[Hg] DAKOTAH FARIA Attn: Accounting,[address] [facility], [place], [address], [facility] 11/24/2023 14:19:33 Date Recorded Body height Body mass index (BMI) Body weight Body temperature Heart rate Systolic blood pressure Diastolic blood pressure Provider Name and Address Organization Details Last Updated DateTime 4 182.88 cm 39.7 kg/m2 952980. 56 g 98.7 [degF] 67 /min 136 mm[Hg] 74 mm[Hg] Alexandra Brock MA [facility] 4 12:07:55 Date Recorded Body height Body mass index (BMI) Body weight Body temperature Heart rate Oxygen saturation Oxygen saturation in Arterial blood by Pulse oximetry Systolic blood pressure Diastolic blood pressure Provider Name and Address Organization Details Last Updated DateTime 4 182.88 cm 39.2 kg/m2 541040. 84 g 97.3 [degF] 79 /min 99 % 99 % 156 mm[Hg] 99 mm[Hg] Jeanie Goodsonborn [facility] 4 15:29:40 Date Recorded Body height Body mass index (BMI) Body weight Heart rate Respiratory rate Body temperature Pain severity - 0-10 verbal numeric rating [Score] - Reported Oxygen saturation Oxygen saturation in Arterial blood by Pulse oximetry Systolic blood pressure Diastolic blood pressure Provider Name and Address Organization Details Last Updated DateTime 5 182.88 cm 36.6 kg/m2 399689. 58 g 68 /min 18 /min 97.5 [degF] 0 99 % 99 % 120 mm[Hg] 77 mm[Hg] Rimma Marie MA [facility] 5 11:44:05 Social History Question Answer Notes LastModified by Organizat ion Details LastModified Time Tobacco Smoking Status Never Smoker Linda Singh MA [facility], [facility] 09/11/2022 14:01:23 What Is Your Level Of Alcohol Consumption? Occasional [email or web address] Information not available 09/11/2022 What Is Your Level Of Caffeine Consumption? Occasional [email or web address] Information not available 09/11/2022 In The 14 Days Before Symptom Onset, Have You Had Close Contact With A Laboratory-confir med COVID-19 While That Case Was Ill? No Information not available 09/11/2022 In The 14 Days Before Symptom Onset, Have You Had Close Contact With A Person Who Is Under Investigation For COVID-19 While That Person Was Ill? No [email or web address] Information not available 09/11/2022 Have You Been To An Area Known To Be High Risk For COVID-19? No [email or web address] Information not available 09/11/2022 Do You Or Have You Ever Used E-cigarettes Or Vape? Current User Of Electronic Cigarettes Information not available 11/24/2023 Are There Any Guns Present In Your Home? No Information not available 09/11/2022 What Was The Date Of Your Most Recent Tobacco Screening? 04/10/2024 Information not available 04/10/2024 Do You Have Smoke And Carbon Monoxide Detectors In Your Home? Yes [email or web address] Information not available 09/11/2022 Are You Passively Exposed To Smoke? No [email or web address] Information no t available 09/11/2022 Do You Use Any Illicit Or Recreational Drugs? No [email or web address] Information not available 09/11/2022 Do You Use Sunscreen Routinely? No [email or web address] Information not available 09/11/2022 Has Tobacco Cessation Counseling Been Provided? Yes [email or web address] Information not available 09/11/2022 On What Date Was Tobacco Cessation Counseling Provided? 04/10/2024 Information not available 04/10/2024 Do You Or Have You Ever Used Any Other Forms Of Tobacco Or Nicotine? Yes [email or web address] Information not available 11/24/2023 Sex: Male Functional Status None recorded. Mental Status None recorded. Family History Relationship Description Onset Age of this Age Resolved Age Notes LastModified by Organization Details LastModified Time Paternal Grandfather Hypertensive disorder [email or web address] Not available 2022 14:00:53 Paternal Grandmother Diabetes mellitus [email or web address] Not available 2022 14:01:01 Medical History Condition Response Coronary Artery Disease N Other N Atrial Fibrillation N High Blood Pressure N Depression N COPD N Blood Clots N Anxiety Disorder N Muscle, Joint, or Bone Problems N Acid Reflux (GERD) N Cancer N Stroke N ADHD N High Cholesterol N Liver Disease N Schizophrenia N Headaches N Kidney or Bladder Problems N Thyroid Problems N GI Problems N Eating Disorder N Skin Problems N Anemia N Heart Attack (CA) N Diabetes N Seizures/Epilepsy N Asthma N Allergies N Substance Abuse N Hepatitis N Osteoporosis N Heart Failure N Past Encounters Encounter ID Performer Location Encounter Start Date Encounter Closed Date Diagnosis/Indication Diagnosis SNOMED-CT Code Diagnosis ICD10 Code Diagnosis Note [id number] DAKOTAH FARIA [address] [place] [address] 09/11/2022 13:54:07 09/11/2022 14:47:51 Mixed anxiety and depressive disorder 567876327 F41.8 PHQ 5GAD 6discussed medication and counseling pt would like to try anxiety medication , aware of ADRf/u in 1 mo Essential hypertension 02064483 I10 BP 150/110, 160/114too k at [facility], 150/100asx start lisinopril 40advised to check BP at home, goal BP <130/80, f/u with BP log in 1 wk Morbid obesity 087471338 E66.01 BMI 46.4pre diabetic in the pasts tried diets and exercising w/o successdif ficulty losing weightwant s to try mounjaro with discount card, advised pt of ADRa1c 5.0 Nasal congestion 5167432 0 R09.81 tried OTC allergy meds w/o relieftria l singulairi f no relief will refer to wet inspector optical glass [id number] DAKOTAH FARIA [facility] [address] [place] [address] 11/16/2022 12:19:06 11/16/2022 13:47:30 Morbid obesity 171682243 E66.01 11/16/22:lo st 12 lbs since last visit 09/11/22:BM I 46.4pre diabetic in the tried diets and exercising w/o successdif ficulty losing weightwant s to try mounjaro with discount card, advised pt of ADRa1c 5.0 Mixed anxi ety and depressive disorder 362622373 F41.8 11/16/22:PH Q 11GAD 13mild improvemen t with buspirone, would like to increase dosetrial buspirone 15 mg BIDf/u if sx do not improve with increased doserefer to counseling at [email or web address] 09/11/22:PH Q 5GAD 6discussed medication and counseling pt would like to try anxiety medication , aware of ADRf/u in 1 mo Essential hypertension 61513293 I10 11/16/22:BP today 132/86not taking lisinopril , checking BP at home 110s-130s/ 70-80s 09/11/22:BP 150/110, 160/114too k at [facility], 150/100asx start lisinopril 40advised to check BP at home, goal BP <130/80, f/u with BP log in 1 wk [id number] DAKOTAH FARIA On license of [facility] [address] [place] [address] 04/19/2023 12:29:48 04/19/2023 13:22:39 Pharyngitis 098173343 J02.9 strep negative Productive cough-yellow sputum 181743992 R09.3 COVID and RSV negative Bacterial upper respiratory infection 023941646 A49.9 COVID 2 wks ago with symptoms [...] or on SSRI antidepres sants. Allergic rhinitis 682834 04 J30.9 tried singulairo n zyrtec and flonase PRN w/o reliefrefe r to wet inspector optical glass [id number] Lynnette Ibanez CMA On license of [facility] [address] [place] [address] 07/22/2023 12:01:00 07/28/2023 08:24:46 Dysuria 71870838 R30.0 [id number] DAKOTAH FARIA On license of [facility] [address] [place] [address] 11/24/2023 13:50:33 11/24/2023 14:25:41 Essential hypertension 45780212 I10 11/24/23: BP 143/80, 150/90stat es that BP was normal in EDadvised to check BP at home, goal BP <130/80, f/u with BP log in 1 wk 11/16/22:BP today 132/86not taking lisinopril , checking BP at home 110s-130s/ 70-80s 09/11/22:BP 150/110, 160/114too k at [facility], 150/100asx start lisinopril 40advised to check BP at home, goal BP <130/80, f/u with BP log in 1 wk Gastroesop hageal reflux disease without esophagitis 180807376 K21.9 belching and heart burn x3 days, took TUMS w/ reliefc/o sharp, stabbing epigastric pain x5 daysadmits to eating spicy foods frequently went to ER and was given pantoprazo le, pain has been controlled continue pantoprazo le 40pt requesting GI referral Depression screening 171 267174 Z13.31 0 Obesity 688774800 E66.9 discussed increasing exercise and healthier food options, high protein, low fat dietpt has lost 42 lbs since 04/2023 [id number] ADELITA CLAIRE [facility] [address] [place] [address] 12/14/2023 11:48:43 12/16/2023 11:31:01 Excessive belching 191198724 R14.2 Gastritis 4004855 K29.70 No epigastric or LUQ tenderness on today's exam. Discussed EGD to eval for possible ulceration . Patient has elected to defer at this time. Will rule out H. pylori today. Patient to continue consistent pantoprazo le daily x 4-6 weeks. If no improvemen t, can reconsider EGD evaluation . Patient is in agreement with this plan. [id number] ADELITA CLAIRE [facility] [address] [place] [address] 04/10/2024 15:17:07 04/12/2024 09:52:11 Excessive belching 025737614 R14.2 await H pylori results and continue daily PPI Gastritis 5690382 K29.70 Patient to continue consistent pantoprazo le daily x 4-6 weeks. If no improvemen t, can reconsider EGD evaluation . History of Helicobacter pylori infection 6149236044 5095437 Z86.19 completed clarithrom ycin triple therapy in December 2023.Eradi cation testing [id number] ADELITA CLAIRE [facility] [address] [place] [address] 08/10/2024 11:25:05 08/10/2024 14:40:54 Constipation 32613489 K59.00 Minimal relief with docusate sodium 100 mg BID with miralax. Patient to try either senna with docusate or lactulose. Both prescripti ons sent to pharmacy to see which option is more affordable via patient's insurance. Delayed ga stric emptying 295418520 K30 likely 2/2 ozempic use. Discussed with patient that there's a small percentage some patient's experience irreversib le symptoms. History of Helicobacter pylori infection 1545761628 3598750 Z86.19 completed clarithrom ycin triple therapy in [...] Barrientos Member ID Guarantor Name 07/22/2023 1 [facility] - DOS ON OR AFTER 21 (MEDICAID REPLACEMENT - HMO) Erick Triana [id number] Erick Triana 11/24/2023 1 [facility] - DOS ON OR AFTER 21 (MEDICAID REPLACEMENT - HMO) Erick Triana [id number] Erick Triana 12/14/2023 1 [facility] - DOS ON OR AFTER 21 (MEDICAID REPLACEMENT - HMO) Erick Triana [id number] Erick Triana 04/10/2024 1 [facility] - DOS ON OR AFTER 21 (MEDICAID REPLACEMENT - HMO) Erick Triana [id number] Erick Pembertonvan 08/10/2024 1 [facility] - DOS ON OR AFTER 21 (MEDICAID REPLACEMENT - HMO) Erick Triana [id number] Erick Triana Notes Date Note Type Note [...] vomiting, diarrhea, constipation. DAKOTAH FARIA Attn: Accounting,[address] [place], [address], [facility] 11/24/2023 19:50:51 12/14/2023 text/html Patient [...] the morning without having eaten. ADELITA CLAIRE [address], [place], [address], [facility] 12/14/2023 12:26:21 04/10/2024 text/html Patient presents today for follow up on H pylori infection. Was treated with triple therapy in December 2023. Symptoms have improved some, but still has a lot of belching. Rarely drinks alcohol or carbonated beverages. ADELITA CLAIRE [address] [place], [address], [facility] 04/10/2024 15:48:09 08/10/2024 text/html Patient presents today [...] pylori infection. ADELITA CLAIRE [address], [place], [address], [facility] 08/10/2024 12:20:52
--- OUTSIDE RECORDS SUMMARY | 2024-09-24 13:38 | XMS_ITS | Clinical Summary ---
Author Organization [facility] Address [address] [place] [address] Care Team Providers Care Payroll Technician Name Role Phone Godfrey Curry MD Primary Care Provider [phone] Dipika Reddy MD Unavailable [phone] Source Comments [facility],non-owned Affiliates and Associated Physician Practices is amultiple site organization consisting of ambulatory clinics and hospital sitesin [place], [place], [place] and [place]. This disclosure is being madepursuant to the Care Everywhere program and may not contain all information available regarding this patient. 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 [place] [address] UngureaGenia alcantara, CANDY WRAPPING MACHINE OPERATOR-CELL OPERATOR [address] [place] [address] Health Maintenance Due Date Last Done Comments [...] Reactive Non Reactive 11/12/2017 11:57 AM CDT [facility] HBsAg Non Reactive Non Reactive 11/12/2017 11:57 AM CDT [facility] HBc Antibody IgM Non Reactive Non Reactive 11/12/2017 11:57 AM CDT [facility] HCV Antibody Screen Non Reactive Non Reactive 11/12/2017 11:57 AM CDT [facility] HCV S/C Ratio 0.05 0.00 - 0.79 11/12/2017 11:57 AM CDT [facility] Comment: Cdgocv-xd-bcxjfn ratio (S/CO) <0.80: Non Reactive Blood BLOOD SPECIMEN / Unknown Lab Venipuncture / Unknown 11/12/2017 9:57 AM CDT 11/12/2017 10:52 AM CDT Narrative [facility] - 11/12/2017 11:57 AM CDT Non Reactive - Antibodies to Hepatitis C virus (HCV) were not detected, result does not exclude early acute HCV infection. Jose Rafael Thompson MD LAB - CHEMISTRY HILDA MARIO [facility] Organization Address City/State/ZIP Co de Phone Number [facility] [address] [place] [place] [address] from Last 3 Months or Most Recently Relevant to Health Maintenance Care Teams Payroll Technician Relationship Specialty Start Date End Date LabGodfrey griffin MD [address] [place] [phone] PCP - General Pediatrics 05/01/14 Dipika Reddy MD [address] [place] [phone] Resident Student Resident 11/27/15
[2024-09-24 13:44] VITALS: BP 125/71; PULSE 68; RESP 16; TEMP 36.3; O2SAT 100
--- NOTE | 2024-09-24 13:49 | ED.MALEGU ---
HPI - Male Genitourinary General Chief complaint: Urogenital-Male Stated complaint: uti symptoms Source: patient and RN notes reviewed Mode of arrival: ambulatory Limitations: no limitations History of Present Illness HPI Narrative: 24 y/o male presented for c/o burning with urination and cloudy urine x2 days. Says it crystal for hours after urinating. Took AZO yesterday. Denies urethral discharge or lesions, hematuria, nausea, vomiting, abdominal pain, flank pain, constipation, diarrhea, fevers or chills. Denies testicular pain or swelling. denies concern for std. Related Data Home Medications ?Medication ?Instructions ?Recorded ?Confirmed ?Last Taken ?Type Saccharomyces boulardii 250 mg 250 mg PO DAILY 08/23/24 09/13/24 09/06/24 History capsule (Daily Probiotic (S. boulardii)) Allergies Allergy/AdvReac Type Severity Reaction Status Date / Time No Known Allergies Allergy Verified 09/24/24 13:38 Review of Systems Review of Systems: CONSTITUTIONAL: Denies body aches, fever, chills, or sweats. CARDIOVASCULAR: Denies chest pain, palpitations, or edema. RESPIRATORY: Denies cough or dyspnea. GASTROINTESTINAL: Denies abdominal pain, nausea, vomiting, or diarrhea. GENITOURINARY: Reports dysuria, denies frequency, urgency, hematuria, flank pain SKIN: Denies rash, itching, or wounds. MUSCULOSKELETAL: Denies back pain or myalgia. [facility] Past Medical History Medical History (Updated 09/24/24 @ 14:02 by Jeanie Lnio APRN) Alternating constipation and diarrhea Abdominal pain Abdominal bloating Tenesmus (rectal) BRBPR (bright red blood per rectum) Mucus in stool H. pylori infection Gastritis Hypertension Surgical History Surgical History History of tonsillectomy Family History Family History Other Diabetes mellitus Heart disease Hypertension Social History Social History Smoking status: Never smoker Alcohol intake: current Substance use: never Do You Feel Safe in your Home?: Yes Lack of Transportation: No Lack of Food: Never True Current Housing: I Have Housing Concerned About Future Housing: No Difficulty Paying Gas/Electric Bills: No Difficulty Paying for Meds: No Currently Unemployed: YES Education: High School Diploma/GED Difficulty w/ Childcare or Family Care: No Living arrangements: with family Spiritual care concerns: No Comments At time of signature, I have reviewed and agree with nursing past medical, surgical, social and family history unless otherwise noted. Please see nursing chart for further information. There is no relevant family history pertinent to the presenting complaint Exam Narrative: GENERAL: Well-appearing ENT: Mucous membranes pink and moist. NECK: Normal AROM. Supple. CHEST: No respiratory distress. Clear to auscultation. HEART: Regular rate and rhythm. ABDOMEN: Soft, nontender, nondistended, normal active bowel sounds. No CVA tenderness SKIN: Warm, dry, no rash. NEURO: No focal deficits. Alert and oriented x3. Gait steady. Course Course Emergency Course: Patient is aware of diagnosis, understands and agrees to treatment plan. Anticipatory guidance given. Patient agrees to follow-up as directed and is aware of reasons to seek care at the emergency department. Portions of this record may have been created with voice recognition software Level of Care: Express Care Visit Vital Signs Vital signs: Vital Signs Temperature 97.4 F L 09/24/24 13:44 Pulse Rate 68 09/24/24 13:44 Respiratory Rate 16 09/24/24 13:44 Blood Pressure 125/71 09/24/24 13:44 Pulse Oximetry 100 09/24/24 13:44 Oxygen Delivery Room Air 09/24/24 13:44 Temperature 97.4 F L 09/24/24 13:44 Pulse Rate 68 09/24/24 13:44 Respiratory Rate 16 09/24/24 13:44 Blood Pressure 125/71 09/24/24 13:44 Pulse Oximetry 100 09/24/24 13:44 Oxygen Delivery Room Air 09/24/24 13:44 Reviewed MDM - Male Genitourinary MDM Narrative Medical decision making narrative: Discussed physical exam findings and urine dip. Advised supportive measures and signs/symptoms to go to the ER. Pt is appropriate for outpt treatment and f/u. Differential Diagnosis Differential diagnosis: Likely urinary tract infection, urethritis, epididymitis and genital herpes simplex Lab Data Labs: Lab Results 09/24/24 Range/Units 13:55 POC Urine Color Yellow POC Urine Clarity Clear POC Urine pH 7.0 POC Ur Specif [place] 1.020 POC Urine Protein Negative (Negative) POC Ur Glucose (UA) Negative (Negative) POC Urine Ketones Negative (Negative) POC Urine Blood Trace (Negative) POC Urine Nitrite Negative (Negative) POC Urine Bilirubin Negative (Negative) POC Urine Urobilinogen 0.2 POC U Leukocyte Esteras Negative (Negative) Discharge Plan Discharge Clinical Impression: Dysuria Patient Disposition: Home, Self-Care Condition: Stable Instructions: Antibiotic Form, Urinary Tract Infection in Men (ED) Additional Instructions: Your urine will be sent of for a culture to determine if bacteria is causing your symptoms. If the culture shows a UTI, you will be notified and an antibiotic will be called in for you. you will need to follow up with your PCP call to schedule follow-up appointment. Go to the ER for any worsening symptoms or concerns. Patient Language: Pashto Prescriptions: No Action Saccharomyces boulardii [Daily Probiotic (S. boulardii)] 250 mg capsule 250 mg PO DAILY dicyclomine 10 mg capsule 10 mg PO QID PRN (Reason: abdominal pain) Qty: 120 5RF hydrocortisone 2.5 % cream with perineal applicator 1 applic RECTAL BID PRN (Reason: pain) 7 Days Qty: 30 0RF Follow-up/Referrals: Oliver,Sivan Mullins PA-C [Primary Care Provider] - Time of Disposition: 14:02
[2024-09-24 13:57] LABS: EDUAAPPEAR Clear; EDUABILI Negative (Negative); EDUABLOOD Trace (Negative); EDUACOLOR1 Yellow; EDUAGLUCOSE Negative (Negative); EDUAKETONE Negative (Negative); EDUALEUKO Negative (Negative); EDUANITRATE Negative (Negative); EDUAPROTEIN Negative (Negative); EDUAUROBILI 0.2
== END 2024-09-24 14:08 | disposition home or self-care (01) ==
PROVIDERS: Emergency Provider Nurse Practitioner Family; PCP Physician Assistant
DX: R30.0 Dysuria (principal); I10 Essential (primary) hypertension
CPT/HCPCS: 81003; 87086; 99213; G0463

== ENCOUNTER 2024-10-17 15:46 | Outpatient (CLI) | payer OTHER, SELFPAY ==
--- OUTSIDE RECORDS SUMMARY | 2024-10-17 17:40 | XMS_ITS | Encounter Summary ---
Author Organization [facility] Address [address] [place] [address] Care Team Providers Care Corn Husker Name Role Phone Sivan Boyd Primary Care Provider + Reason for Visit * Reason Comments Follow-up Pt is having continu ing symptoms. Pt here for re evaluation. Encounter Details Date Type Department Care Team (Late st Contact Info) Description 10/16/2024 1:30 PM CDT Office Visit [facility] Family Medicine [address] [phone] Lamine Armstrong MD [address] [phone] Dysuria (Primary Dx); Penile discharge; Nausea and vomiting, unspecified vomiting type; Abnormal stools; Abdominal pain; Class 2 obesity due to excess calories without serious comorbidity with body mass index (BMI) of 35.0 to 35.9 in adult Social History Tobacco Use Types Packs/Day Years Used Date Smoking Tobacco: Never Smokeless Tobacco: Never AUDIT-C Answer Date Recorded Q1: How often do you have a drink containing alc ohol? Monthly or less 09/27/2024 Q2: How many drinks containi ng alcohol do you have on a typical day when you are drinking? 1 or 2 09/27/2024 Q3: How often do you have si x or more drinks on one occasion? Never 09/27/2024 PHQ-2 Answer Date Recorded PHQ-2 Total Score (If total score is 3 or more points, staff should administer the PHQ-9) 0 09/27/2024 PHQ-9 Answer Date Recorded PHQ-9 Total Score 8 08/24/2024 Personal Safety Answer Date Recorded Have you ever been in or are you currently in a harmful physical or emotional relationship or is someone making you feel afraid or unsafe? 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 Gender Identity Not on file Sexual Orientation Not on file documented as of this encounter Last Filed Vital Signs Vital Sign Reading Time Taken Comments Blood Pressure 118/70 10/16/2024 1:30 PM CDT Pulse 56 10/16/2024 1:30 PM CDT Temperature 36.3 C (97.4 F) 10/16/2024 1:30 PM CDT Respiratory Rate 18 10/16/2024 1:30 PM CDT Oxygen Saturation 99% 10/16/2024 1:30 PM CDT Inhaled Oxygen Concentration - - Weight 118.9 kg (262 lb 1.6 oz) 10/16/2024 1:30 PM CDT Height 182.9 cm (6') 10/16/2024 1:30 PM CDT Body Mass Index 35.55 10/16/2024 1:30 PM CDT documented in this encounter Progress Notes * Lamine Armstrong MD - 10/16/2024 1:30 PM CDT Subjective/Objective Patient ID: Erick Triana is a 24 y.o. male. Chief Complaint Chief Complaint Patient presents with Follow-up Pt is having continuing symptoms. Pt here for re evaluation. HPI The patient reports that his dysuria has improved, but still present. He is still having mucousy penile drainage however. He denies any rashes or sores. He saw the surgeon in regard to his abdominal pain and possible gallbladder disease. He reports that the surgeon is concerned it may be more of a parasitic problems so recommend he get testing done in that regard. He notes he continues to have nausea, though not as much vomiting anymore. His stools is very mucousy and yellow, he has frequent abdominal pain. This all started around [place], and if note [place] wasin [place] the [place] before. The patient's past medical history, surgical history, family history, and social history were reviewed today. Review of Systems Constitutional: Negative for activity change, appetite change, fatigue and fever. HENT: Negative for congestion, ear pain, rhinorrhea and sore throat. Eyes: Negative for discharge and visual disturbance. Respiratory: Negative for cough, shortness of breath and wheezing. Cardiovascular: Negative for chest pain and palpitations. Gastrointestinal: Positive for abdominal pain and nausea. Negative for constipation, diarrhea and vomiting. See HPI Endocrine: Negative for cold intolerance, heat intolerance, polydipsia and polyuria. Genitourinary: Positive for dysuria (Improved). Negative for frequency, hematuria, penile discharge, penile pain, penile swelling, scrotal swelling, testicular pain and urgency. See HPI Musculoskeletal: Negative for arthralgias, joint swelling and myalgias. Skin: Negative for rash. Neurological: Negative for dizziness, weakness, light-headedness and headaches. Psychiatric/Behavioral: Negative for decreased concentration and sleep disturbance. The patient is not nervous/anxious. Hyperactive: sfmbic. Physical Exam Assessment/Plan Diagnoses and all orders for this visit: Dysuria (Primary) - N. gonorrhoeae/C. trachomatis Amplification Urine; Future Penile discharge - N. gonorrhoeae/C. trachomatis Amplification Urine; Future Nausea and vomiting, unspecified vomiting type - Ova and parasite exam Stool; Future - Stool culture Stool Rectum; Future Abnormal stools - Ova and parasite exam Stool; Future - Stool culture Stool Rectum; Future Abdominal pain - Ova and parasite exam Stool; Future - Stool culture Stool Rectum; Future Class 2 obesity due to excess calories without serious comorbidity with body mass index (BMI) of 35.0 to 35.9 in adult Plan: 1. Dysuria and penile discharge: Discussed treatment options with the patient, including starting Rocephin and doxycycline. He wouldprefer to do testing first so I will check gonorrhea chlamydia tests. Continue the Bactrim. If symptoms persist, recommend urology evaluation. 2. Abdominal pain, nausea and vomiting, and abnormal stools: Stool culture ordered. O&P ordered. Follow-up with DAKOTAH Boyd. 3. Obesity: Weight loss needed Diet and exercise discussed BMI reviewed. BMI Follow-up includes: nutrition counseling and exercise counseling. . documented in this encounter Plan of Treatment Pending Results Name Type Priority Associated Diagnoses Date /Time N. gonorrhoeae/C. trachomatis Amplification Urine Microbiology Routine Dysuria Penile discharge 10/16/2024 2:29 PM CDT Scheduled Orders Name Type Priority Associated Diagnoses Orde r Schedule Ova and parasite exam Stool Microbiology Routine Nausea and vomiting, unspecified vomiting type Abnormal stools Abdominal pain Expected: 10/19/2024, Expires: 10/16/2025 Stool culture Stool Rectum Microbiology Routine Nausea and vomiting, unspecified vomiting type Abnormal stools Abdominal pain Expected: 10/19/2024, Expires: 10/16/2025 N. gonorrhoeae/C. trachomatis Amplification Urine Microbiology Routine Dysuria Penile discharge Expected: 10/19/2024, Expires: 10/16/2025 documented as of this encounter Visit Diagnoses Diagnosis Dysuria- Primary Penile discharge Urethral discharge Nausea and vomiting, unspecified vomiting type Abnormal stools Abnormal feces Abdominal pain Abdominal pain, unspecified site Class 2 obesity due to excess calories without serious comorbidity with body mass index (BMI) of 35.0 to 35.9 in adult documented in this encounter Care Teams Corn Husker Relationship Specialty Start Date End Date Sivan Boyd PA [address] [address] PCP - General Family Medicine 08/24/24 documented as of this encounter
--- OUTSIDE RECORDS SUMMARY | 2024-10-17 17:40 | XMS_ITS | Encounter Summary ---
Author Organization [facility] Address [address] [place] [address] Care Team Providers Care Core Worker Name Role Phone Godfrey Curry MD Primary Care Provider [phone] Dipika Reddy MD Unavailable [phone] Reason for Visit * Reason Onset Date Comments Refill Request 05/24/2017 Encounter Details Date Type Department Care Team (Late st Contact Info) Description 05/24/2017 Telephone [facility] [address] [place] [id number] Godfrey Curry MD [address] [place] [phone] Refill Request Social History Tobacco Use Types [...] trigger documented in this encounter Care Teams Core Worker Relationship Specialty Start Date End Date Godfrey Curry MD [address] [place] [phone] PCP - General Pediatrics 05/01/14 Dipika Reddy MD [address] [place] [phone] Resident Student Resident 11/27/15 documented as of this encounter
--- OUTSIDE RECORDS SUMMARY | 2024-10-17 17:40 | XMS_ITS | Encounter Summary ---
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 gonorrhoeae/C. trachomatis Amplification Urine Microbiology Routine Dysuria Penile discharge 10/16/2024 2:29 PM CDT documented as of this encounter Visit Diagnoses Diagnosis Dysuria Penile discharge Urethral discharge documented in this encounter Care Teams Farm Boss Relationship Specialty Start Date End Date Sivan Boyd PA [address] [address] PCP - General Family Medicine 08/24/24 documented as of this encounter
--- OUTSIDE RECORDS SUMMARY | 2024-10-17 17:40 | XMS_ITS | Data Portability ---
Author Organization [facility] MELODYDarvin Sabillon Address [address] [place] [address] Care Team Providers Care Reinforcing Steel Erector Name Role Phone IRENE DANG Primary Care Provider [phone] Assessment Encounter Date Assessment Date Assessment LastModified by Organization Details LastModified Time 11/24/2023 11/24/2023 Sections of the HPI, exam and assessment completed by DAKOTAH Nam student and have been reviewed by me. I agree with the exam findings, assessment and plan except where specifically documented or amended. -Irene Dang, [facility], EVELYN Not available 11/24/2023 14:25:25 Plan of Treatment Reminders Order Date Submit Date Provider Last Modified By Organization Details Last Modified Time Details Appointments None recorded. Lab H pylori urea breath test, co2 infrared 2024 025 [facility] (Lab), [address] [place], [address], 5 16:10:01 H pylori urea breath test, co2 infrared 2023 024 [facility] (Lab), [address] [place], [address], 4 16:13:40 H pylori urea breath test, co2 infrared 2023 024 [facility] (Lab), [address] [place], [address], 4 16:16:13 culture, urine [address] [facility], [address] [place] [address] [address], [place], [address], 3 02:06:36 urinalysis , dipstick 2022 023 CHELI In-Office Order, Internal Use Only DO Not Attach Compendium DO Not Attach Compendium, Do Not Delete/merge, [id number] 3 16:55:15 Referral gastroente rologist referral 2023 024 [facility], [address], [place], [address], 4 17:01:52 Procedures gastric emptying study (PROC) 2024 025 API-[id number], [address] [facility], [place], [address], 5 15:39:46 Surgeries None recorded. Imaging None recorded. Medication Orders Senna with Docusate Sodium 8.6 mg-50 mg tablet [address] [id number], [address] [facility], [place], [place], [id number], 5 12:09:10 lactulose 10 gram/15 mL oral solution 2024 025 [facility] #58389, [address] [facility], [place], [place], [id number], 5 12:09:07 pantoprazo le 40 mg tablet,del ayed release 2023 024 [facility], [address] [facility], [place], [place], [id number], 4 15:34:55 Patient TargetsNo targets recorded. Patient Instructions Encounter Date Encounter Id Patient Instructions Last Modified By Organization Details Last Modified Time 11/24/2023 [id number] A healthy lifestyle: care instructions [email or web address] Not available 11/24/2023 19:49:15 12/14/2023 [id number] Patient to call with update in 3-5 weeks [email or web address] Not available 12/14/2023 12:26:11 08/10/2024 [id number] Will follow up after GES and with H pylori results [email or web address] Not available 08/10/2024 12:20:37 Reason for Referral Produce Manager Referral for Gastroesophageal reflux disease without esophagitis Referring Physician: Irene Dang, Family Medicine, Encounter Date: 11/24/2023 Results Created Date Observation Date Name Description Value Unit Range Abnormal Flag Note LastModifiedBy Organization Detail LastModifiedTime 07/22/2007/25/2023 URINE CULTU RE, ROUTI NE urine culture, routine Final report Not Available [facility] ([facility]) [address] [facility], [place], [address], 07/25/2023 02:06:36 07/22/2007/25/2023 URINE CULTU RE, ROUTI NE result 1 Commen t Cultu re shows less than 10,00 0 colon y formi ng units of bacte kourtney per quinton liter of urine . This colon y count is not gener ally consi dered to be clini jonathan signi fican t. Not Available [facility] ([facility]) [address] [facility], [place], [address], 07/25/2023 02:06:36 07/23/2007/23/2023 urina lysis , dipst ick Leukocytes Negati ve Not Available In-Office Order Internal Use Only DO Not Attach Compendium DO Not Attach Compendium, Do Not Delete/merge, [id number] 07/22/2023 12:27:57 07/23/20 23 07/23/2023 urina lysis , dipst ick Nitrite negati ve Not Available In-Office Order Internal Use Only DO Not Attach Compendium DO Not Attach Compendium, Do Not Delete/merge, [id number] 07/22/2023 12:27:57 07/23/20 23 07/23/2023 urina lysis , dipst ick Urobilinogen .2 Not Available In-Of fice Order Internal Use Only DO Not Attach Compendium DO Not Attach Compendium, Do Not Delete/merge, [id number] 07/22/2023 12:27:57 07/23/20 23 07/23/2023 urina lysis , dipst ick Protein Negati ve Not Available In-Office Order Internal Use Only DO Not Attach Compendium DO Not Attach Compendium, Do Not Delete/merge, [id number] 07/22/2023 12:27:57 07/23/20 23 07/23/2023 urina lysis , dipst ick pH 6.0 Not Available In-Office Order Internal Use Only DO Not Attach Compendium DO Not Attach Compendium, Do Not Delete/merge, [id number] 07/22/2023 12:27:57 07/23/20 23 07/23/2023 urina lysis , dipst ick Blood Negati ve Not Available In-Office Order Internal Use Only DO Not Attach Compendium DO Not Attach Compendium, Do Not Delete/merge, [id number] 07/22/2023 12:27:57 07/23/20 23 07/23/2023 urina lysis , dipst ick Specific Wayne 1.015 Not Available In-Off ice Order Internal Use Only DO Not Attach Compendium DO Not Attach Compendium, Do Not Delete/merge, [id number] 07/22/2023 12:27:57 07/23/20 23 07/23/2023 urina lysis , dipst ick Ketone Negati ve Not Available In-Office Order Internal Use Only DO Not Attach Compendium DO Not Attach Compendium, Do Not Delete/merge, [id number] 07/22/2023 12:27:57 07/23/20 23 07/23/2023 urina lysis , dipst ick Bilirubin Negati ve Not Available In-Office Order Internal Use Only DO Not Attach Compendium DO Not Attach Compendium, Do Not Delete/merge, [id number] 07/22/2023 12:27:57 07/23/20 23 07/23/2023 urina lysis , dipst ick Glucose Negati ve Not Available In-Office Order Internal Use Only DO Not Attach Compendium DO Not Attach Compendium, Do Not Delete/merge, [id number] 07/22/2023 12:27:57 07/23/20 23 07/23/2023 urina lysis , dipst ick Appearance Clear Not Available In-Offi ce Order Internal Use Only DO Not Attach Compendium DO Not Attach Compendium, Do Not Delete/merge, [id number] 07/22/2023 12:27:57 07/23/20 23 07/23/2023 urina lysis , dipst ick Color Dark Yellow Not Available In-Office Order Internal Use Only DO Not Attach Compendium DO Not Attach Compendium, Do Not Delete/merge, [id number] 07/22/2023 12:27:57 12/14/19 24 12/16/2023 H PYLOR I BREAT H TEST H pylori breath test *ABNO RMAL* Posit brenda [facility] [address] [place] [address] Lab Direc tor: Morgan arguello PhD, Phone : [phone] Not Available [facility] (Lab) [address] [place], [address], 12/16/2023 16:16:13 04/10/20 24 04/12/2024 H PYLOR I BREAT H TEST H pylori breath test Negat brenda [facility]: [facility] [address] [facility] [place] [address] Lab Direc tor: Morgan arguello PhD, Phone : [phone] Not Available [facility] (Lab) [address] [place], [address], 04/12/2024 16:13:40 08/10/19 25 08/13/2024 H PYLOR I BREAT H TEST H pylori breath test Negat brenda [facility]: [facility] [address] [place], [place] [address] Lab Direc tor: Morgan arguello PhD, Phone : [phone] Not Available [facility] (Lab) [address] [place], [address], 08/13/2024 16:10:00 08/23/19 25 08/24/2024 H. PYLOR I STOOL AG, EIA H. pylori stool Ag, EIA Negati ve negati ve [facility]: [facility] [address] [place], [place] [address] Lab Direc tor: Morgan arguello PhD, Phone : [phone] Not Available [facility] (Lab) [address] [place], [address], 08/26/2024 14:09:13 08/23/19 25 08/24/2024 GIARD IA LAMBL IA AG, EIA giardia lamblia Ag, EIA Negat brenda Not Available [facility] (Lab) [address] [place], [address], 08/24/2024 14:10:53 08/23/19 25 08/24/2024 CRYPT OSPOR IDIUM EIA cryptosporid ium EIA Negat brenda Perfo rmed at: 01 - [facility] n [address] [place], [place] [address] Lab Direc tor: Morgan arguello PhD, Phone : [phone] Not Available [facility] (Lab) [address] [place], [address], 08/24/2024 14:10:53 08/23/19 25 08/24/2024 GIARD IA LAMBL IA AG, EIA giardia lamblia Ag, EIA Negat brenda Not Available [facility] (Lab) [address] [place], [address], 08/24/2024 14:10:55 08/23/19 25 08/24/2024 CRYPT OSPOR IDIUM EIA cryptosporid ium EIA Negat brenda Perfo rmed at: 01 - [facility] [address] [facility] [place], [place] [address] Lab Direc tor: Morgan arguello PhD, Phone : [phone] Not Available [facility] (Lab) [address] [place], [address], 08/24/2024 14:10:55 08/23/1908/25/2024 OVA + KELLY ITE [...] spori odalys. Perfo rmed at: 01 - [facility] n [address] [place] [address] Lab Direc tor: Morgan arguello PhD, Phone : [phone] Not Available [facility] (Lab) [address] [place], [address], 08/25/2024 19:13:17 08/23/19 25 08/24/2024 GIARD IA LAMBL IA AG, EIA giardia lamblia Ag, EIA Negat brenda Not Available [facility] (Lab) [address] [place], [address], 08/25/2024 19:13:18 08/23/19 25 08/24/2024 CRYPT OSPOR IDIUM EIA cryptosporid ium EIA Negat brenda Perfo rmed at: 01 - [facility] n [address] [place] [address] Lab Direc tor: Morgan arguello PhD, Phone : [phone] Not Available [facility] (Lab) [address] [place], [address], 08/25/2024 19:13:18 08/23/1908/26/2024 C DIFFI CILE TOXIN S A+B, EIA C difficile toxins A+B, EIA Negati ve negati ve [facility]: [facility] [address] [place] [address] Lab Direc tor: Morgan arguello PhD, Phone : [phone] Not Available [facility] (Lab) [address] [place], [address], 08/26/2024 14:09:12 08/23/19 25 08/28/2024 CALPR OTECT IN, FECAL calprotectin , fecal 12 ug/g 0-120 Monica ntrat ion Inter preta tion Follo w-Up < 5 - 50 ug/g Irma l None >50 -120 ug/g Borde rline Re-ev aluat e in 4-6 weeks >120 ug/g Abnor mal Repea t as clini jonathan indic ated [facility]: [facility] [address] [place] [address] Lab Direc tor: Brenda lopez MD, Phone : [phone] Not Available [facility] (Lab) [address] [place], [address], 08/28/2024 12:15:00 08/23/19 25 08/28/2024 PANCR EATIC ELAST ASE, FECAL pancreatic elastase, fecal >800 >200 Resul t Units : ug Elast ./g Sever e Pancr eatic Insuf ficie ncy: <100 Moder ate Pancr eatic Insuf ficie ncy: 100 - 200 Irma l: >200 [facility]: [facility] [address] [place] [address] Lab Direc tor: Brenda lopez MD, Phone : [phone] Not Available [facility] (Lab) [address] [place], [address], 08/28/2024 12:15:01 08/24/19 25 08/22/2024 gastr ic empty ing study (PROC ) No observ ation record ed. BARCODE Not Available 2024 13:24:54 Result Notes None recorded. Problems Name Problem SNOMED Code Status Onset Date Resolution Date Notes Provider Name and Address Organization Details Recorded Time Morbid obesity 517818286 Active 2022 DAKOTAH FARIA Attn: Olivier mishra,[address] [facility], [place], [address], [facility] 3 10:38:22 Mixed anxiety and depressive disorder 789517738 Active 2022 DAKOTAH FARIA Attn: Olivier g,[address] [facility], [place], [address], [facility] 3 10:38:20 Essential hypertension 21129618 Active 2022 DAKOTAH FARIA Attn: Accountwilfrido g,[address] [facility], [place], [address], [facility] 3 10:38:19 Gastroesophage al reflux disease without esophagitis 186691346 Active 2023 DAKOTAH FARIA Attn: Olivier g,[address] [facility], [place], [address], [facility] 4 19:50:39 Notes:fatty liver disease..p re diabetic Problem Notes None recorded. Procedures Surgical History Date Name Laterality Status Provider Name and Address Organization Details Recorded Time Remove tonsils and adenoids completed Linda Singh MA [facility] 09/11/2022 14:01:41 Imaging Results Imaging Date Name [...] Updated DateTime 4 182.88 cm 39.7 kg/m2 133877. 56 g 97 % 97 % 86 /min 16 /min 143 mm[Hg] 80 mm[Hg] Linda Singh MA [facility] 4 14:01:38 Date Recorded Systolic blood pressure Diastolic blood pressure Provider Name and Address Organization Details Last Updated DateTime 11/24/2023 150 mm[Hg] 90 mm[Hg] DAKOTAH FARIA Attn: Accounting,[address] [place], [address], [facility] 11/24/2023 14:19:33 Date Recorded Body height Body mass index (BMI) Body weight Body temperature Heart rate Systolic blood pressure Diastolic blood pressure Provider Name and Address Organization Details Last Updated DateTime 4 182.88 cm 39.7 kg/m2 529313. 56 g 98.7 [degF] 67 /min 136 mm[Hg] 74 mm[Hg] Alexandra Brock MA [facility] 4 12:07:55 Date Recorded Body height Body mass index (BMI) Body weight Body temperature Heart rate Oxygen saturation Oxygen saturation in Arterial blood by Pulse oximetry Systolic blood pressure Diastolic blood pressure Provider Name and Address Organization Details Last Updated DateTime 4 182.88 cm 39.2 kg/m2 488103. 84 g 97.3 [degF] 79 /min 99 % 99 % 156 mm[Hg] 99 mm[Hg] Jeanie Alvarado [facility] 4 15:29:40 Date Recorded Body height Body mass index (BMI) Body weight Heart rate Respiratory rate Body temperature Pain severity - 0-10 verbal numeric rating [Score] - Reported Oxygen saturation Oxygen saturation in Arterial blood by Pulse oximetry Systolic blood pressure Diastolic blood pressure Provider Name and Address Organization Details Last Updated DateTime 5 182.88 cm 36.6 kg/m2 905187. 58 g 68 /min 18 /min 97.5 [degF] 0 99 % 99 % 120 mm[Hg] 77 mm[Hg] Rimma Marie MA [facility] 11:44:05 Social History Question Answer Notes LastModified by Organizat ion Details LastModified Time Tobacco Smoking Status Never Smoker Linda Singh MA null, [place] - [facility] 09/11/2022 14:01:23 What Is Your Level Of Alcohol Consumption? Occasional [email or web address] Information not available 09/11/2022 What Is Your Level Of Caffeine Consumption? Occasional [email or web address] Information not available 09/11/2022 In The 14 Days Before Symptom Onset, Have You Had Close Contact With A Laboratory-confir med COVID-19 While That Case Was Ill? No [email or web address] Information not available 09/11/2022 In The 14 Days Before Symptom Onset, Have You Had Close Contact With A Person Who Is Under Investigation For COVID-19 While That Person Was Ill? No [email or web address] Information not available 09/11/2022 Have You Been To An Area Known To Be High Risk For COVID-19? No [email or web address] Information not available 09/11/2022 Do You Or Have You Ever Used E-cigarettes Or Vape? Current User Of Electronic Cigarettes [email or web address] Information not available 11/24/2023 Are There Any Guns Present In Your Home? No [email or web address] Information not available 09/11/2022 What Was The Date Of Your Most Recent Tobacco Screening? 04/10/2024 Information not available 04/10/2024 Do You Have Smoke And Carbon Monoxide Detectors In Your Home? Yes [email or web address] Information not available 09/11/2022 Are You Passively Exposed To Smoke? No [email or web address] Information no t available 09/11/2022 Do You Use Any Illicit Or Recreational Drugs? No [email or web address] Information not available 09/11/2022 Do You Use Sunscreen Routinely? No [email or web address] Information not available 09/11/2022 Has Tobacco Cessation Counseling Been Provided? Yes [email or web address] Information not available 09/11/2022 On What Date Was Tobacco Cessation Counseling Provided? 04/10/2024 Information not available 04/10/2024 Do You Or Have You Ever Used Any Other Forms Of Tobacco Or Nicotine? Yes [email or web address] Information not available 11/24/2023 Sex: Male Functional Status None recorded. Mental Status None recorded. Family History Relationship Description Onset Age of this Age Resolved Age Notes LastModified by Organization Details LastModified Time Paternal Grandfather Hypertensive disorder [email or web address] Not available 2022 14:00:53 Paternal Grandmother Diabetes [...] Liver Disease N Schizophrenia N Headaches N Thyroid Problems N Kidney or Bladder Problems N GI Problems N Eating Disorder N Skin Problems N Anemia N Heart Attack (ND) N Diabetes N Seizures/Epilepsy N Asthma N Allergies N Substance Abuse N Hepatitis N Heart Failure N Osteoporosis N Past Encounters Encounter ID Performer Location Encounter Start Date Encounter Closed Date Diagnosis/Indication Diagnosis SNOMED-CT Code Diagnosis ICD10 Code Diagnosis Note [id number] DAKOTAH FARIA [facility] [address] [place] [address] 09/11/2022 13:54:07 09/11/2022 14:47:51 Mixed anxiety and depressive disorder 632190162 F41.8 PHQ 5GAD 6discussed medication and counseling pt would like to try anxiety medication , aware of ADRf/u in 1 mo Essential hypertension 27841590 I10 BP 150/110, 160/114too k at [facility], 150/100asx start lisinopril 40advised to check BP at home, goal BP <130/80, f/u with BP log in 1 wk Morbid obesity 216324172 E66.01 BMI 46.4pre diabetic in the pasthas tried diets and exercising w/o successdif ficulty losing weightwant s to try mounjaro with discount card, advised pt of ADRa1c 5.0 Nasal congestion 2855856 0 R09.81 tried OTC allergy meds w/o relieftria l singulairi f no relief will refer to implementation architect [id number] DAKOTAH FARIA [facility] [address] [place] [address] 11/16/2022 12:19:06 11/16/2022 13:47:30 Morbid obesity 107273200 E66.01 11/16/22:lo st 12 lbs since last visit 09/11/22:BM I 46.4pre diabetic in the pasthas tried diets and exercising w/o successdif ficulty losing weightwant s to try mounjaro with discount card, advised pt of ADRa1c 5.0 Mixed anxi ety and depressive disorder 627747518 F41.8 11/16/22:PH Q 11GAD 13mild improvemen t with buspirone, would like to increase dosetrial buspirone 15 mg BIDf/u if sx do not improve with increased doserefer to counseling at [facility] 09/11/22:PH Q 5GAD 6discussed medication and counseling pt would like to try anxiety medication , aware of ADRf/u in 1 mo Essential hypertension 71984137 I10 11/16/22:BP today 132/86not taking lisinopril , checking BP at home 110s-130s/ 70-80s 09/11/22:BP 150/110, 160/114too k at [facility], 150/100asx start lisinopril 40advised to check BP at home, goal BP <130/80, f/u with BP log in 1 wk [id number] DAKOTAH FARIA [facility] [address] [place] [address] 04/19/2023 12:29:48 04/19/2023 13:22:39 Pharyngitis 920277330 J02.9 strep negative Productive cough-yellow sputum 847292423 R09.3 COVID and RSV negative Bacterial upper respiratory infection 552951869 A49.9 COVID 2 wks ago with symptoms [...] or on SSRI antidepres sants. Allergic rhinitis 931315 04 J30.9 tried singulairo n zyrtec and flonase PRN w/o reliefrefe r to implementation architect [id number] Lynnette Ibanez CMA [facility] [address] [place] [address] 07/22/2023 12:01:00 07/28/2023 08:24:46 Dysuria 15481426 R30.0 [id number] DAKOTAH FARIA [facility] [address] [place] [address] 11/24/2023 13:50:33 11/24/2023 14:25:41 Essential hypertension 84345156 I10 11/24/23: BP 143/80, 150/90stat es that BP was normal in EDadvised to check BP at home, goal BP <130/80, f/u with BP log in 1 wk 11/16/22:BP today 132/86not taking lisinopril , checking BP at home 110s-130s/ 70-80s 09/11/22:BP 150/110, 160/114too k at [facility], 150/100asx start lisinopril 40advised to check BP at home, goal BP <130/80, f/u with BP log in 1 wk Gastroesop hageal reflux disease without esophagitis 023702242 K21.9 belching and heart burn x3 days, took TUMS w/ reliefc/o sharp, stabbing epigastric pain x5 daysadmits to eating spicy foods frequently went to ER and was given pantoprazo le, pain has been controlled continue pantoprazo le 40pt requesting GI referral Depression screening 171 754959 Z13.31 0 Obesity 965034133 E66.9 discussed increasing exercise and healthier food options, high protein, low fat dietpt has lost 42 lbs since 04/2023 [id number] ADELITA CLAIRE [facility] [place] [address] [place] [address] 12/14/2023 11:48:43 12/16/2023 11:31:01 Excessive belching 335962338 R14.2 Gastritis 0745985 K29.70 No epigastric or LUQ tenderness on today's exam. Discussed EGD to eval for possible ulceration . Patient has elected to defer at this time. Will rule out H. pylori today. Patient to continue consistent pantoprazo le daily x 4-6 weeks. If no improvemen t, can reconsider EGD evaluation . Patient is in agreement with this plan. [id number] ADELITA CLAIRE [address] [address] 04/10/2024 15:17:07 04/12/2024 09:52:11 Excessive belching 077735308 R14.2 await H pylori results and continue daily PPI Gastritis 1722873 K29.70 Patient to continue consistent pantoprazo le daily x 4-6 weeks. If no improvemen t, can reconsider EGD evaluation . History of Helicobacter pylori infection 7868138999 1845436 Z86.19 completed clarithrom ycin triple therapy in December 2023.Eradi cation testing [id number] ADELITA CLAIRE [address] [address] 08/10/2024 11:25:05 08/10/2024 14:40:54 Constipation 61219447 K59.00 Minimal relief with docusate sodium 100 mg BID with miralax. Patient to try either senna with docusate or lactulose. Both prescripti ons sent to pharmacy to see which option is more affordable via patient's insurance. Delayed ga stric emptying 868199534 K30 likely 2/2 ozempic use. Discussed with patient that there's a small percentage some patient's experience irreversib le symptoms. History of Helicobacter pylori infection 8030484340 0541856 Z86.19 completed clarithrom ycin triple therapy in [...] Barrientos Member ID Guarantor Name 07/22/2023 1 [facility] ON OR AFTER 01/30/21 (MEDICAID REPLACEMENT - HMO) Erick Triana [id number] Erick Triana 11/24/2023 1 [facility] ON OR AFTER 01/30/21 (MEDICAID REPLACEMENT - HMO) Erick Triana [id number] Erick Triana 12/14/2023 1 [facility] ON OR AFTER 01/30/21 (MEDICAID REPLACEMENT - HMO) Erick Triana [id number] Erick Triana 04/10/2024 1 [facility] ON OR AFTER 01/30/21 (MEDICAID REPLACEMENT - HMO) Erick Triana [id number] Erick Triana 08/10/2024 1 [facility] ON OR AFTER 01/30/21 (MEDICAID REPLACEMENT - HMO) Erick Triana [id number] Erick Triana Notes Date Note Type Note [...] vomiting, diarrhea, constipation. DAKOTAH FARIA Attn: Accounting,[address] [place], [address], [facility] 11/24/2023 19:50:51 12/14/2023 text/html Patient [...] in the morning without having eaten. ADELITA Holman[address], [place], [address], [facility] 12/14/2023 12:26:21 04/10/2024 text/html Patient presents today for follow up on H pylori infection. Was treated with triple therapy in December 2023. Symptoms have improved some, but still has a lot of belching. Rarely drinks alcohol or carbonated beverages. ADELITA [address]man[address], [place], [address], [facility] 04/10/2024 15:48:09 08/10/2024 text/html Patient presents today [...] concered for recurrent H pylori infection. ADELITA Holman[address], [place], [address], [facility] 08/10/2024 12:20:52
--- OUTSIDE RECORDS SUMMARY | 2024-10-17 17:40 | XMS_ITS | Encounter Summary ---
Author Organization [facility] Address [address] [facility] [place] [address] Care Team Providers Care Side Seam Machine Operator Name Role Phone Godfrey Curry MD Primary Care Provider Dipika Reddy MD Unavailable [phone] Reason for Visit * Reason Onset Date Comments Concerns 02/03/2019 Encounter Details Date Type Department Care Team (Late st Contact Info) Description 02/03/2019 Telephone [facility] - [facility] Pediatrics [address] [place] [id number] Godfrey Curry MD [address] [place] [phone] Concerns Social History Tobacco Use Types [...] a provider please call her back at [phone] Instructed that provider will call back at their earliest convenience. Jelly Moulton 1671 documented in this encounter Plan of Treatment Not on file documented as of this encounter Visit Diagnoses Not on filedocumented in this encounter Care Teams Side Seam Machine Operator Relationship Specialty Start Date End Date Godfrey Curry MD [address] [place] [phone] PCP - General Pediatrics 05/01/14 Dipika Reddy MD [address] [place] [phone] Resident Student Resident 11/27/15 documented as of this encounter
--- OUTSIDE RECORDS SUMMARY | 2024-10-17 17:40 | XMS_ITS | Clinical Summary ---
Author Organization [facility] Address [facility] [place] [address] Care Team Providers Care Help Desk Operator Name Role Phone None, Provider MD Primary [...] Department Care Team Description 09/13/2024 2:59 AM HOSIERY OPERATOR - 09/13/2024 4:04 AM [facility] Emergency [facility] [place] [address] Dhruv Nettles MD Abdominal Pain Discharge Disposition: Home or Self Care (Routine Discharge) 09/13/2024 Travel 09/11/2024 8:40 PM HOSIERY OPERATOR - 09/11/2024 8:52 PM [facility] Emergency [facility] [place] [address] Unique Cardenas PA Abdominal Pain Discharge Disposition: Home or Self Care (Routine Discharge) 09/11/2024 Travel 08/22/2024 7:17 AM HOSIERY OPERATOR - 08/22/2024 11:59 PM HOSIERY OPERATOR Hospital Encounter [facility] [place] [address] Adelita Goldstein PA-C Discharge Disposition: Home or Self Care (Routine Discharge) 08/22/2024 Travel 07/28/2024 11:56 PM HOSIERY OPERATOR - 07/29/2024 12:27 AM HOSIERY OPERATOR Emergency [facility] [place] [address] Unique Cardenas PA Dizziness Discharge Disposition: Home or Self Care (Routine Discharge) 07/28/2024 4:21 PM HOSIERY OPERATOR - 07/28/2024 7:32 PM HOSIERY OPERATOR Emergency [facility] [place] [address] Dhruv Nettles MD Nausea Discharge Disposition: Home [...] Sex Assigned at Male 08/22/2024 7:16 AM HOSIERY OPERATOR Legal Sex Male 8:11 PM CDT Gender Identity Not on file Sexual Orientation Not on file Last Filed Vital Signs Vital Sign Reading Time Taken Comments Blood Pressure 182/107 09/13/2024 2:44 AM HOSIERY OPERATOR Pulse 67 09/13/2024 2:44 AM HOSIERY OPERATOR Temperature 36.2 C (97.1 F) 09/13/2024 2:44 AM HOSIERY OPERATOR Respiratory Rate 20 09/13/2024 2:44 AM HOSIERY OPERATOR Oxygen Saturation 99% 09/13/2024 2:44 AM HOSIERY OPERATOR Inhaled Oxygen Concentration - - Weight 117.9 kg (260 lb) 09/13/2024 2:44 AM HOSIERY OPERATOR Height 182.9 cm (6') 09/13/2024 2:44 AM HOSIERY OPERATOR Body Mass Index 35.26 09/13/2024 2:44 AM HOSIERY OPERATOR Plan of Treatment Health Maintenance Due [...] COMPREHENSIVE METABOLIC PANEL STAT 09/13/2024 2:49 AM HOSIERY OPERATOR CBC W/DIFF AUTOMATED STAT 09/13/2024 2:49 AM HOSIERY OPERATOR NM GASTRIC EMPTYING STUDY Routine 08/22/2024 10:44 AM HOSIERY OPERATOR Functional dyspepsia TSH W/REFLEX STAT 07/28/2024 4:24 PM HOSIERY OPERATOR MAGNESIUM STAT 07/28/2024 4:24 PM HOSIERY OPERATOR COMPREHENSIVE METABOLIC PANEL STAT 07/28/2024 4:24 PM HOSIERY OPERATOR CBC W/DIFF AUTOMATED STAT 07/28/2024 4:24 PM HOSIERY OPERATOR from Last 3 Months Results * (ABNORMAL) COMPREHENSIVE METABOLIC PANEL (09/13/2024 2:49 AM HOSIERY OPERATOR) Only the most recent of2 resultswithin the time period is included. [facility] Signature GLUCOSE 112(H) 70 - 99 MG/DL 09/13/2024 3:[address] [facility] BUN 8 7 - 18 MG/DL 09/13/2024 3:[address] [facility] CREATININE S/P/B 0.82 0.7 - 1.3 MG/DL 09/13/2024 3:[address] [facility] SODIUM S/P/B 136 136 - 145 MMOL/L 09/13/2024 3:[address] [facility] POTASSIUM S/P/B 3.5 3.5 - 5.1 MMOL/L 09/13/2024 3:[address] [facility] CHLORIDE S/P/B 103 97 - 115 MMOL/L 09/13/2024 3:[address] [facility] CO2 31.2 21 - 32 MMOL/L 09/13/2024 3:[address] [facility] CALCIUM S/P/B 10.3(H) 8.5 - 10.1 MG/DL 09/13/2024 3:[address] [facility] BILIRUBIN TOTAL S/P/B 0.7 0.2 - 1.2 MG/DL 09/13/2024 3:[address] [facility] Comment: THIS ASSAY IS NOT RECOMMENDED FOR PATIENTS UNDERGOING TREATMENT WITH ELTROMBOPAG DUE TO THE POTENTIAL FOR FALSELY ELEVATED RESULTS. TOTAL PROTEIN S/P/B 7.8 6.4 - 8.2 G/DL 09/13/2024 3:[address] [facility] ALBUMIN S/P/B 4.4 3.4 - 5.0 G/DL 09/13/2024 3:[address] [facility] AST 15 15 - 37 U/L 09/13/2024 3:[address] [facility] ALT 38 16 - 60 U/L 09/13/2024 3:[address] [facility] ALKALINE PHOSPHATASE S/P/B 62 50 - 136 U/L 09/13/2024 3:[address] [facility] ANION GAP 1.8(L) 2 - 10 MMOL/L 09/13/2024 3:[address] [facility] BUN CREATININE RATIO 9.7 6 - 26 09/13/2024 3:[address] [facility] A/G RATIO 1.3 1.0 - 2.0 RATIO 09/13/2024 3:[address] [facility] GFR ESTIMATE >90 >90 ML/MIN/1.7 3 M2 09/13/2024 3:[address] [facility] Comment: NOTE: eGFR is not calculated for patients <18 years of age or gender unknown. This is an estimated GFR calculation using the new CKD EPI creatinine equation without race and so does not require a correction factor for race. This estimated GFR should not be used for calculating drug doses. 09/13/2024 2:49 AM HOSIERY OPERATOR Dhruv Nettles MD LABORATORY Final Result [facility] [address] [place] [address], [place] [phone] * (ABNORMAL) CBC W/DIFF AUTOMATED (09/13/2024 2:49 AM HOSIERY OPERATOR) Only the most recent of2 resultswithin the time period is included. WBC 7.29 4.5 - 11.0 x10'3/uL 09/13/2024 3:[address] [facility] RBC 5.46 4.70 - 6.10 x10'6/uL 09/13/2024 3:[address] [facility] HGB 14.7 14.0 - 18.0 G/DL 09/13/2024 3:[address] [facility] HCT 42.6(L) 43.0 - 54.0 % 09/13/2024 3:[address] [facility] MCV 78.0(L) 80.0 - 94.0 FL 09/13/2024 3:[address] [facility] MCH 26.9(L) 27.0 - 31.0 PG 09/13/2024 3:[address] [facility] MCHC 34.5 32.0 - 36.0 G/DL 09/13/2024 3:[address] [facility] RDW 13.3 11.5 - 14.5 % 09/13/2024 3:[address] [facility] PLT 299 130 - 400 x10'3/uL 09/13/2024 3:[address] [facility] MPV 10.0 9.3 - 12.2 FL 09/13/2024 3:[address] [facility] DIFFERENTIAL TYPE AUTOMATED DIFFERENTIAL 09/13/2024 3:[address] [facility] NEUTROPHILS % 56.4 % 09/13/2024 3:[address] [facility] LYMPHOCYTES % 32.6 % 09/13/2024 3:[address] [facility] MONOCYTES % 7.3 % 09/13/2024 3:[address] [facility] EOSINOPHILS 2.9 % 09/13/2024 3:[address] [facility] BASOPHILS 0.4 % 09/13/2024 3:[address] [facility] IMMATURE GRANS % 0.4 % 09/13/19 25 3:02 AM HOSIERY OPERATOR [facility] ABS. NEUTROPHILS 4.11 1.80 - 7.70 x10'3/uL 09/13/2024 3:02 AM HOSIERY OPERATOR [facility] ABS. LYMPHOCYTES 2.38 1.00 - 4.80 x10'3/uL 09/13/2024 3:02 AM HOSIERY OPERATOR [facility] ABS. MONOCYTES 0.53 0.30 - 0.82 x10'3/uL 09/13/2024 3:02 AM HOSIERY OPERATOR [facility] ABS. EOSINOPHILS 0.21 0.04 - 0.54 x10'3/uL 09/13/2024 3:02 AM HOSIERY OPERATOR [facility] ABS. BASOPHILS 0.03 0.01 - 0.08 x10'3/uL 09/13/2024 3:02 AM HOSIERY OPERATOR [facility] ABS. IMMATURE GRANULOCYTES 0.03 0.00 - 0.49 x10'3/uL 09/13/2024 3:02 AM HOSIERY OPERATOR [facility] 09/13/2024 2:49 AM HOSIERY OPERATOR Dhruv Nettles MD LABORATORY Final Result [facility] [address] [place] [address], * NM GASTRIC EMPTYING STUDY (08/22/2024 10:44 AM HOSIERY OPERATOR) Anatomical Region Laterality Modality Abdomen Nuclear Medicine 08/22/2024 11:1 7 AM HOSIERY OPERATOR Impressions 08/22/2024 11:20 AM HOSIERY OPERATOR IMPRESSION: Normal gastric emptying study. Referred By: ADELITA GOLDSTEIN Interpreted By: Gino Morataya MD, 08/22/2024 11:17 AM Narrative 08/22/2024 11:20 AM HOSIERY OPERATOR [address] [address] Gastric Emptying Scintigraphy Exam date: 08/22/2024. Indications: [...] Procedure Note Gino Morataya MD - 08/22/[address] [address] Gastric Emptying Scintigraphy Exam date: 08/22/2024. Indications: [...] sult * TSH W/REFLEX (07/28/2024 4:24 PM HOSIERY OPERATOR) TSH 0.836 0.358 - 3.74 uIU/ML 07/28/2024 5:16 PM HOSIERY OPERATOR [facility] Comment: HIGH DOSES OF BIOTIN MAY INTERFERE WITH THIS TEST RESULT. CORRELATION TO CLINICAL HISTORY AND PRESENTATION RECOMMENDED. FREE T4 NOT INDICATED 07/28/2024 4:24 PM HOSIERY OPERATOR [facility] LABORATORY Final Result [facility] [address] [place] [address], [place] [phone] * MAGNESIUM (07/28/2024 4:24 PM HOSIERY OPERATOR) MAGNESIUM 2.1 1.8 - 2.4 MG/DL 07/28/2024 5:16 PM HOSIERY OPERATOR [facility] 07/28/2024 4:24 PM HOSIERY OPERATOR [facility] Final Result [facility] [address] [place] [address], [place] [phone] from Last 3 Months Insurance [employer] Care Teams Help Desk Operator Relationship Specialty Start Date End Date None, Provider, PCP - General 09/19/19
--- OUTSIDE RECORDS SUMMARY | 2024-10-17 17:40 | XMS_ITS | Encounter Summary ---
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
--- OUTSIDE RECORDS SUMMARY | 2024-10-17 17:40 | XMS_ITS | Encounter Summary ---
Author Organization [facility] Address [address] [place] [address] Care Team Providers Care Travel Pt Name Role Phone Sivan Boyd Primary Care Provider + Encounter Details Date Type Department Care Team (Late st Contact Info) Description 09/19/2024 Results Follow-Up [facility] Family Medicine [address] [phone] Sivan Boyd PA [address] [place] [address] Social History Tobacco Use Types [...] staff should administer the PHQ-9) 0 09/11/2024 PHQ-9 Answer Date Recorded PHQ-9 Total Score 8 08/24/2024 Personal Safety Answer Date Recorded Have you ever been in or are you currently in a harmful physical or emotional relationship or is someone making you feel afraid or unsafe? Denies 09/12/2024 Sex and Gender Information Value Date Recorded Sex Assigned at Not on file Legal Sex Male 12:57 PM FIELD ENGINEER Gender Identity Not on file Sexual Orientation Not on file documented as of this encounter Miscellaneous Notes * Result Encounter Note - Ananya Carlos LPN - 09/25/2024 3:21 PM CST Pt vu D ENGINEER * Telephone Encounter - Bridget Bateman MA - 09/22/2024 1:30 PM CST Called pt LVM for CB. D ENGINEER * Result Encounter Note - Janneth Gomez LPN - 09/20/2024 9:29 AM FIELD ENGINEER Call placed, no answer, lmtc D ENGINEER * Telephone Encounter - Janneth Gomez LPN - 09/19/2024 8:59 AM CST Call placed, no answer, lmtc. ----- Message from DAKOTAH Morales sent at 09/19/2024 7:39 AM FIELD ENGINEER ----- Let pt know his echo looks fairly normal overall. His top chambers of his heart are mildly dilated.Normal ejection fraction. Recommend he see cardiology - we already did referral but I don't see that's he scheduled yet D ENGINEER D ENGINEER documented in this encounter Plan of Treatment Not on file documented as of this encounter Visit Diagnoses Not on filedocumented in this encounter Care Teams Travel Pt Relationship Specialty Start Date End Date Sivan Boyd PA [address] [facility] [address] [place] [address] PCP - General Family Medicine 08/24/24 documented as of this encounter
--- OUTSIDE RECORDS SUMMARY | 2024-10-17 17:40 | XMS_ITS | Encounter Summary ---
Author Organization [facility] Address [address] [place] [address] Care Team Providers Care Alley Tender Name Role Phone Sivan Boyd Primary Care Provider + Encounter Details Date Type Department Care Team (Late st Contact Info) Description 09/25/2024 Results Follow-Up [facility] Family Medicine [address] [phone] Sivan Boyd PA [address] [place], [place] [id number] Social History Tobacco Use Types Packs/Day Years [...] on file Legal Sex Male 12:57 PM CORE DRILLER Gender Identity Not on file Sexual Orientation Not on file documented as of this encounter Functional Status * Audit-C Score Answer Date of Assessment Author 1 09/27/2024 3:50 PM CORE DRILLER Darian Mccauley MA * Question Answer Date of Assessment Author Q1: How often do you have a drink containing alcohol? Monthly or less 09/27/2024 3:50 PM Rossi Tabares MA Q2: How many drinks containing alcohol do you have on a typical day when you are drinking? 1 or 2 09/27/2024 3:50 PM Rossi Tabares MA Q3: How often do you have six or more drinks on one occasion? Never 09/27/2024 3:50 PM Rossi Tabares MA documented as of this encounter Miscellaneous Notes * Result Encounter Note - Ann-Marie Steele - 09/25/2024 2:55 PM CST Records faxed for review and scheduling. DRILLER * Telephone Encounter - Ananya Carlos LPN - 09/25/2024 2:50 PM CST Pt vu, referral placed to [facility]---- Message from DAKOTAH Morales sent at 09/25/2024 7:59 AM CORE DRILLER ----- Let patient know his HIDA scan is showing lower gallbladder ejection fraction. Possible problem with the gallbladder. This may or may not be contributing to the symptoms he's having. We can refer to general surgery for further eval DRILLER DRILLER documented in this encounter Plan of Treatment Not on file documented as of this encounter Visit Diagnoses Not on filedocumented in this encounter Care Teams Alley Tender Relationship Specialty Start Date End Date Sivan Boyd PA [address] [facility] [address] [place] [address] PCP - General Family Medicine 08/24/24 documented as of this encounter
--- OUTSIDE RECORDS SUMMARY | 2024-10-17 17:40 | XMS_ITS | Clinical Summary ---
Author Organization [facility] Address [address] [place] [address] Care Team Providers Care High Lift Operator Name Role Phone Sivan Boyd Primary Care Provider + Allergies No known active allergies Medications sulfamethoxazol e-trimethoprim (BACTRIM DS) 800-160 mg per tablet Take 1 tablet by mouth 2 (two) times a day for 14 days 28 tablet 5 10/21/19 25 Active ciprofloxacin (CIPRO) 500 mg tabletIndicatio ns:Dysuria,Clou dy urine Take 1 tablet (500 mg total) by mouth 2 (two) times a day for 10 days 20 tablet 5 10/16/19 25 Additional Information Patient not taking.Reported on 10/16/2024 Active Problems Problem Noted Date Diagnosed Date Weight loss 08/28/2024 Nausea and vomiting 08/28/2024 Abdominal pain 08/28/2024 Diverticulosis 08/25/2024 Assessment & Plan (08/25/2024 12:48 PM HIMS MANAGER): Diverticulosis seen on CT of the abdomen/pelvis. [...] Encounters Date Type Department Care Team Description 10/16/2024 2:[address] [facility] [address] [place] [id number] Dysuria; Penile discharge 10/16/2024 1:30 PM CDT Office Visit [address] [phone] Lamine Armstrong MD Dysuria (Primary Dx); Penile discharge; Nausea and vomiting, unspecified vomiting type; Abnormal stools; Abdominal pain; Class 2 obesity due to excess calories without serious comorbidity with body mass index (BMI) of 35.0 to 35.9 in adult 10/05/2024 12:15 PM HIMS MANAGER Office Visit [address] [phone] Lamine Armstrong MD Dysuria (Primary Dx); Cloudy urine; Class 2 obesity due to excess calories without serious comorbidity with body mass index (BMI) of 35.0 to 35.9 in adult 10/05/[address] [phone] Sivan Boyd PA 10/05/2024 Results Follow-Up [facility] Care at [address] [phone] Rubia Stephenson NP 10/03/2024 4:45 PM HIMS MANAGER - 10/03/2024 11:59 PM HIMS MANAGER Hospital Encounter [address] [address] Cloudy urine Discharge Disposition: Discharge to home or self care 10/03/2024 4:30 PM HIMS MANAGER Office Visit [facility] Care at [address] [phone] Sole Amador NP Cloudy urine (Primary Dx) 09/28/2024 Letter (Out) [address] [phone] 09/27/2024 4:00 PM HIMS MANAGER Office Visit [address] [phone] Sivan Boyd PA UTI symptoms (Primary Dx); Perineum pain, male 09/25/2024 Letter (Out) [address] [phone] 09/25/2024 Orders Only [address] [phone] Sivan Boyd PA Abdominal pain (Primary Dx); Abnormal biliary HIDA scan 09/25/2024 Results Follow-Up [address] [phone] Sivan Boyd PA 09/22/2024 12:46 PM HIMS MANAGER - 09/22/2024 11:59 PM HIMS MANAGER Hospital Encounter [facility] Nuclear Medicine [address] [place], [place] [phone] Abdominal pain; Elevated LFTs Discharge Disposition: Discharge to home or self care 09/19/2024 Results Follow-Up [address] [phone] Sivan Boyd PA 09/18/2024 1:47 PM HIMS MANAGER - 09/18/2024 11:59 PM HIMS MANAGER Hospital Encounter [facility] Cardiac Testing [address] [place] [address] Dizziness; Bradycardia; Abnormal EKG; Near syncope; New daily persistent headache Discharge Disposition: Discharge to home or self care 09/12/2024 12:44 AM HIMS MANAGER - 09/12/2024 3:09 AM HIMS MANAGER Emergency [facility] Emergency Department [address] [place] [address] Idris Crespo Jr., MD Gastrointestinal hemorrhage, unspecified gastrointestinal hemorrhage type (Primary Dx) Discharge Disposition: Discharge to home or self care 09/11/2024 2:00 PM HIMS MANAGER Office Visit [address] [phone] Sivan Boyd PA Rectal bleeding (Primary Dx); Abdominal pain; Bradycardia; Near syncope; Visual changes; UTI symptoms; Elevated liver enzymes; Belching; Hypercalcemia; Low serum parathyroid hormone (PTH); Anxiousness 09/11/2024 Telephone [facility] [address] [phone] Sivan Boyd PA 09/06/2024 2:43 PM HIMS MANAGER - 09/06/2024 3:49 PM [facility] Emergency Department [address] [place] [address] Kev Ackerman MD Left arm pain (Primary Dx) Discharge Disposition: Discharge to home or self care 09/05/2024 10:54 AM HIMS MANAGER - 09/05/2024 11:59 PM [facility] Cardiac Testing [address] [place] [phone] Bradycardia Discharge Disposition: Discharge to home or self care 09/04/2024 Telephone [facility] Gastroenterology at [address] [place] [phone] Omar Dao MD 08/28/2024 Orders Only [facility] Gastroenterology at [address] [place] [phone] Omar Dao MD Weight loss (Primary Dx); Nausea and vomiting, unspecified vomiting type; Abdominal pain 08/27/2024 8:13 AM HIMS MANAGER - 08/27/2024 11:03 AM [facility] Emergency Department [address] [place] [phone] Mello Ariza MD Abdominal pain (Primary Dx) Discharge Disposition: Discharge to home or self care 08/24/2024 12:30 PM HIMS MANAGER Office Visit [address] [phone] Sivan Boyd PA Dizziness (Primary Dx); Bradycardia; Abnormal EKG; Near syncope; New daily persistent headache; Diverticulosis 08/08/2024 10:30 AM HIMS MANAGER - 08/08/2024 12:50 PM [facility] Emergency Department [address] [place] [address] Intermittent abdominal pain (Primary Dx); Dizziness Discharge Disposition: Discharge to home or self care 08/05/2024 3:40 PM HIMS MANAGER - 08/05/2024 9:54 PM [facility] Emergency Emergency Department [address] [place] [phone] Epigastric pain (Primary Dx); Strain of neck [...] Influenza, Unspecified 09/11/2024(Deferr ed: Patient Refused),05/19/2024(Deferred: Patient decision),05/02/2024(Deferred: Patient decision),05/19/2023(Deferred: Patient decision),05/02/2023(Deferred: Patient decision),05/02/2023(Deferred: Patient Refused),06/23/2011 MMR 03/19/2006,07/22/2001 Meningococcal [...] on file Legal Sex Male 12:57 PM HIMS MANAGER Gender Identity Not on file Sexual Orientation [...] Mass Index 35.55 10/16/2024 1:30 PM CDT Plan of Treatment Health Maintenance Due Date Last Done Comments Hepatitis C Screening 2000 Regular Well Visit/Exam 18-64 2018 DTaP/Tdap/Td Vaccine (7 - Td or Tdap) 07/24/2021 07/24/2011, 03/19/2006, 01/19/2002, Additional history exists Influenza Vaccine (#1) 2025 5, 08/17/2013, 06/23/2011 Postponed from 04/02/2024 (Patient declined, but will receive in the future) Depression Screening 09/27/2025 09/27/2024, 09/11/2024, 08/24/2024, Additional history exists Pneumococcal vaccine <65 Completed 002, 01/17/2001, 2000, Additional history exists HPV Vaccines Completed 08/08/2012, 09/03, 07/24/2011 Hepatitis B Screening Completed 12/04/2015 , 01/19/2002, 2000, Additional history exists Varicella Vaccines Completed 12/04/2015, 07/22/2001 Procedures Procedure Name Priority Date/Time Associated Diagnosis Comments URINE CULTURE Routine 10/03/2024 4:45 PM HIMS MANAGER Cloudy urine POCT URINALYSIS DIPSTICK Routine 10/03/2024 4:44 PM HIMS MANAGER Cloudy urine NM HEPATOBILIARY IMAGING W PHARMACEUTICAL INTERVENTION Schedule Routine, Read Routine (OP Routine) 09/22/2024 3:27 PM HIMS MANAGER Abdominal pain Elevated LFTs TRANSTHORACIC ECHO (TTE) COMPLETE W DOPPLER/CF WO CONTRAST Routine 09/18/2024 2:26 PM HIMS MANAGER Dizziness Bradycardia Abnormal EKG Near syncope New daily persistent headache CTA ABDOMEN PELVIS W WO CONTRAST ED 09/12/2024 1:29 AM HIMS MANAGER EGFR STAT 09/12/2024 12:16 AM HIMS MANAGER DIFFERENTIAL AUTO STAT 09/12/2024 12: 16 AM HIMS MANAGER LIPASE STAT 09/12/2024 12:16 AM HIMS MANAGER COMPREHENSIVE METABOLIC PANEL STAT 09/12/2024 12:16 AM HIMS MANAGER CBC WITH AUTO DIFFERENTIAL STAT 09/12/2024 12:16 AM HIMS MANAGER URINE CULTURE Routine 09/11/2024 2:21 PM HIMS MANAGER UTI symptoms POCT URINALYSIS DIPSTICK Routine 09/11/2024 2:20 PM HIMS MANAGER UTI symptoms HM COLONOSCOPY Routine 09/07/2024 HOLTER MONITOR 24 HR Routine 09/05/2024 11:09 AM HIMS MANAGER Bradycardia FERRITIN Routine 08/31/2024 1:45 PM HIMS MANAGER IRON PROFILE W/ IBC Routine 08/31/2024 1 :45 PM HIMS MANAGER HEMOGLOBIN A1C Routine 08/31/2024 1:45 PM HIMS MANAGER Screening for diabetes mellitus VITAMIN B12 Routine 08/31/2024 1:45 PM HIMS MANAGER Encounter for vitamin deficiency screening VITAMIN D 25 HYDROXY Routine 08/31/2024 1:45 PM HIMS MANAGER Hypercalcemia Encounter for vitamin deficiency screening COMPREHENSIVE METABOLIC PANEL Routine 08/31/2024 1:45 PM HIMS MANAGER Hypercalcemia PTH Routine 08/31/2024 1:45 PM HIMS MANAGER Hypercalcemia CTA ABDOMEN PELVIS W WO CONTRAST ED 08/27/2024 9:33 AM HIMS MANAGER TROPONIN T HIGH-SENSITIVITY 2-HOUR Timed 08/27/2024 8:24 AM HIMS MANAGER URINALYSIS AND REFLEX TO MICROSCOPIC AND CULTURE STAT 08/27/2024 6:51 AM HIMS MANAGER ECG 12-LEAD STAT 08/27/2024 6:45 AM HIMS MANAGER EGFR STAT 08/27/2024 6:41 AM HIMS MANAGER DIFFERENTIAL AUTO STAT 08/27/2024 6:4 1 AM HIMS MANAGER PROTIME-INR STAT 08/27/2024 6:41 AM HIMS MANAGER THYROID FUNCTION CASCADE STAT 08/27/2024 6:41 AM HIMS MANAGER TROPONIN T HIGH-SENSITIVITY SERIES (BASELINE, 2HR, 4HR, 6HR) STAT 08/27/2024 6:41 AM HIMS MANAGER SEPSIS LACTATE WITH REFLEX STAT 08/27/2024 6:41 AM HIMS MANAGER LIPASE STAT 08/27/2024 6:41 AM HIMS MANAGER COMPREHENSIVE METABOLIC PANEL STAT 08/27/2024 6:41 AM HIMS MANAGER CBC WITH AUTO DIFFERENTIAL STAT 08/27/2024 6:41 AM HIMS MANAGER EGFR STAT 08/08/2024 9:27 AM HIMS MANAGER DIFFERENTIAL AUTO STAT 08/08/2024 9:2 7 AM HIMS MANAGER LIPASE STAT 08/08/2024 9:27 AM HIMS MANAGER COMPREHENSIVE METABOLIC PANEL STAT 08/08/2024 9:27 AM HIMS MANAGER CBC WITH AUTO DIFFERENTIAL STAT 08/08/2024 9:27 AM HIMS MANAGER URINALYSIS AND REFLEX TO MICROSCOPIC AND CULTURE STAT 08/08/2024 9:[address] ABDOMEN PELVIS W CONTRAST ED 08/05/2024 6:19 PM HIMS MANAGER EGFR STAT 08/05/2024 5:15 PM HIMS MANAGER DIFFERENTIAL AUTO STAT 08/05/2024 5:1 5 PM HIMS MANAGER URINALYSIS AND REFLEX TO MICROSCOPIC STAT 08/05/2024 5:15 PM HIMS MANAGER LIPASE STAT 08/05/2024 5:15 PM HIMS MANAGER COMPREHENSIVE METABOLIC PANEL STAT 08/05/2024 5:15 PM HIMS MANAGER CBC WITH AUTO DIFFERENTIAL STAT 08/05/2024 5:15 PM HIMS MANAGER from Last 3 Months Results * Urine culture Urine, clean voided (10/03/2024 4:45 PM HIMS MANAGER) Report Final Report: Less than 100,000 colonies/mL (clinically insignificant growth based on current clinical standards) Comment:Testing performed by : , [address] [place]., [address] Organism (CLINICALLY INSIGNIFICANT GROWTH [facility] Urine, clean voided 10/03/2024 4:45 PM HIMS MANAGER 10/04/2024 12:39 PM HIMS MANAGER Narrative AP[facility]VA NICHOLSON - 10/05/2024 1:12 PM HIMS MANAGER Testing performed by [facility] ([phone]) us Sole Amador NP LAB MICROBIOLOGY - GENERAL ORD ERABLES Final Result [facility] [address] Department [place] [address] * POCT urinalysis dipstick (10/03/2024 4:44 PM HIMS MANAGER) Color, Urine, POC Yellow Clarity, ur, POC Clear Clear Glucose, ur, POC Negative Negative MG/DL Bilirubin, ur, POC Negative Negative, Small, Moderate, Large Ketones, ur, POC Negative Negative Specific [place], POC 1.020 1.003 - 1.030 Blood, ur, POC Negative Negative pH, ur, POC 6.5 5.0 - 8.0 Protein, ur, POC Negative Negative Urobilinogen, urine, POC 0.2 0.2 - 1.0 mg/dL Nitrite, ur, POC Negative Negative Leukocytes, ur, POC Negative Negative Lot Number [id number] Urine 10/03/2024 4:4 4 PM HIMS MANAGER Sole ZapataMaricruz Amador NP POINT OF CARE TEST ORDERABLES Final Result * NM Hepatobiliary Imaging W GBEF (09/22/2024 3:27 PM HIMS MANAGER) Anatomical Region Laterality Modality Body N/A Nuclear Medicine 09/22/2024 3:33 PM HIMS MANAGER Narrative 09/22/2024 3:41 PM HIMS MANAGER EXAM DESCRIPTION: NM HEPATOBILIARY IMAGING W PHARMACEUTICAL [...] [place] Sawant M.D. CH: BHARAT Report ID: [id number] Reading Location: [place] [address] Procedure Note [place] Sawant Jr., MD - [...] by [place] Sawant M.D. CH: Report ID: [id number] Reading Location: [place] [address] Sivan CLAIRE [facility] Final Result * TRANSTHORACIC ECHO (TTE) COMPLETE W DOPPLER/CF WO CONTRAST (09/18/2024 2:26 PM HIMS MANAGER) LV EF 57 % CONS SCIMAGE Anatomical Region Laterality Modality Ultrasound 09/18/2024 1:50 PM HIMS MANAGER Narrative 09/18/2024 8:28 PM HIMS MANAGER Transthoracic Echocardiographic Report Patient Name: ERICK PIERRE L : 2000 (24y 1m) Gender: M Study Date: 09/18/2024 01:50:54 PM Ht(Inch): 72 Wt(Lb): 263.01 BSA: 2.46 Edge Molder: Christy Medellin RDCS Order Provider: SIVAN BOYD Heart Rate: 64 BMI: 35.67 BP: 130 / 80 Ref Provider: SIVAN BOYD PROCEDURES: Echocardiographic Report: ([id number]) Transthoracic complete echo, 2D, spectral and tissue [...] By: Sultan Michael NORTON 09/18/2024 8:27:56 PM HIMS MANAGER Procedure Note Sultan Mary Carmen Rodriguez MD - 09/18/2024 Transthoracic Echocardiographic Report Patient Name: ERICK PIERRE L : 2000 (24y 1m) Gender: M Study Date: 09/18/2024 01:50:54 PM Ht(Inch): 72 Wt(Lb): 263.01 BSA: 2.46 Edge Molder: Christy Medellin [facility] Order Provider: SIVAN BOYD Heart Rate: 64 BMI: 35.67 BP: 130 / 80 Ref Provider: SIVAN BOYD PROCEDURES: Echocardiographic Report: ([id number]) Transthoracic complete echo, 2D,spectral and tissue Doppler, [...] LA Length 4C 6.11 cm MV Decel Dhfu528.00 msec LA Volume BP 60.90 ml Med [...] By: Sultan Michael NORTON 09/18/2024 8:27:56 PM HIMS MANAGER us Sivan CLAIRE CV ECHO PROCEDURES Final Result * CTA Abdomen Pelvis (09/12/2024 1:29 AM HIMS MANAGER) Anatomical Region Laterality Modality Body N/A Computed Tomogra phy 09/12/2024 1:43 AM HIMS MANAGER Narrative 09/12/2024 1:48 AM HIMS MANAGER EXAM DESCRIPTION: CTA ABDOMEN PELVIS REASON FOR [...] Patric Schaefer M.D. AR: ANDRIY Report ID: [id number] Reading Location: [place] [address] Procedure Note Patric Schaefer MD - 09/12/2024 [...] Patric Schaefer M.D. AR: ANDRIY Report ID: [id number] Reading Location: [place] [address] PROCEDURES Final Re sult * eGFR (09/12/2024 12:16 AM HIMS MANAGER) eGFR >90 >=60 mL/min/1. 73 m2 Comment: [...] was last reviewed 2021. Testing performed by: [facility], [address] [place] [address], [place]., [address] Blood 09/12/2024 12:1 6 AM HIMS MANAGER 09/12/2024 12:39 AM HIMS MANAGER Xiomy CLAIRE LAB BLOOD ORDERABLES Final Result [facility] [address] [place] [address] Department [place] [address] * Differential, auto (09/12/2024 12:16 AM HIMS MANAGER) Neutrophil abs 4.9 1.5 - 6.5 K/cumm Comment:Testing performed by : [address] [address] Imm gran abs 0.1 0.0 - 0.1 K/cumm AP[facility] Comment:Testing performed by : [address] [address] Lymphocyte abs 2.6 0.8 - 3.3 K/cumm [facility] Comment:Testing performed by : [address] [address] Monocyte abs 0.6 0.2 - 0.8 K/cumm [facility] Comment:Testing performed by : [address] [address] Eosinophil abs 0.2 0.0 - 0.5 K/cumm AP[facility] Comment:Testing performed by : [address] [address] Basophil abs 0.0 0.0 - 0.1 K/cumm [facility] Comment:Testing performed by : [address] [address] Neutrophil pct 58.0 % [facility] Comment: Interpretive Data Percent cell count reference ranges are not reported, since discordance with absolute values may lead to misinterpretation of CBC data. Current Interpretive Data was last revised on 2017. Testing performed by: [address] [address] Imm gran pct 0.6 % CERNER Comment: Interpretive Data Percent cell count reference ranges are not reported, since discordance with absolute values may lead to misinterpretation of CBC data. Current Interpretive Data was last revised on 2017. Testing performed by: [address] [address] Lymphocyte pct 31.0 % CERNER Comment: Interpretive Data Percent cell count reference ranges are not reported, since discordance with absolute values may lead to misinterpretation of CBC data. Current Interpretive Data was last revised on 2017. Testing performed by: [address] [address] Monocyte pct 7.3 % AP[facility]VA Comment: Interpretive Data Percent cell count reference ranges are not reported, since discordance with absolute values may lead to misinterpretation of CBC data. Current Interpretive Data was last revised on 2017. Testing performed by: [address] [address] Eosinophil pct 2.6 % AP[facility] Comment: Interpretive Data Percent cell count reference ranges are not reported, since discordance with absolute values may lead to misinterpretation of CBC data. Current Interpretive Data was last revised on 2017. Testing performed by: [address] [address] Basophil pct 0.5 % AP[facility] Comment: Interpretive Data Percent cell count reference ranges are not reported, since discordance with absolute values may lead to misinterpretation of CBC data. Current Interpretive Data was last revised on 2017. Testing performed by: [address] [address] Blood 09/12/2024 12:1 6 AM HIMS MANAGER 09/12/2024 12:34 AM HIMS MANAGER Xiomy CLAIRE LAB BLOOD ORDERABLES Final Result Performing Organization Address City/State/[facility] Co de Phone Number [facility] [address] [facility] Department [place] [address] * (ABNORMAL) CBC with auto differential (09/12/2024 12:16 AM HIMS MANAGER) WBC 8.4 3.8 - 9.9 K/cumm Comment:Testing performed by : [address] [address] Hgb 14.9 13.0 - 17.5 g/dL AP[facility]VA GIANG Comment:Testing performed by : [address] [address] Hct 41.9 38.9 - 50.3 % AP[facility]VA Comment:Testing performed by : [address] [place]., [address] Plt 305 150 - 400 K/cumm AP[facility] Comment:Testing performed by : [facility], [address] [place] [address]., [address] MPV 10.5 9.1 - 12.3 fL [facility] Comment:Testing performed by : [address] [address] RBC 5.36 4.30 - 5.80 M/cumm AP[facility] Comment:Testing performed by : [address] [address] MCV 78.2(L) 81.3 - 96.4 fL [facility] Comment:Testing performed by : [address] [address] MCH 27.8 27.1 - 33.3 pg [facility] Comment:Testing performed by : [address] [address] MCHC 35.6 32.3 - 35.7 g/dL [facility] Comment:Testing performed by : [address], [address] RDW CV 13.3 11.1 - 14.9 % [facility] Comment:Testing performed by : [address], [address] RDW SD 37.3 35.7 - 48.1 fL [facility] Comment:Testing performed by : [address] [address] NRBC abs 0.00 0.00 - 0.01 K/cumm [facility] Comment:Testing performed by : [address] [address] Blood Venous blood specimen / Unknown 09/12/2024 12:16 AM HIMS MANAGER 09/12/2024 12:34 AM HIMS MANAGER us Idris Crespo Jr., MD LAB BLOOD ORDERABLES Fi nal Result [facility] [address] [facility] Department [place] [address] * Lipase (09/12/2024 12:16 AM HIMS MANAGER) Lipase 24 10 - 99 Units/L Comment:Testing performed by : [address] [address] Blood Venous blood specimen / Unknown 09/12/2024 12:16 AM HIMS MANAGER 09/12/2024 12:34 AM HIMS MANAGER Idris Crespo Jr., MD LAB BLOOD ORDERABLES Fi nal Result [facility] [address] [facility] Department [place] [address] * Comprehensive metabolic panel (09/12/2024 12:16 AM HIMS MANAGER) Pathologist [facility] Sodium 141 135 - 145 mmol/L Comment:Testing performed by : [address] [address] Potassium, pl 3.8 3.3 - 4.9 mmol/L AP[facility] Comment:Testing performed by : [address] [address] Chloride 103 97 - 110 mmol/L [facility] Comment:Testing performed by : [address] [address] CO2 27 22 - 32 mmol/L [facility] Comment:Testing performed by : [address] [address] Anion gap 11 2 - 15 mmol/L [facility] Comment:Testing performed by : [address] [address] BUN 12 6 - 25 mg/dL [facility] Comment:Testing performed by : [address] [address] Creatinine 0.82 0.80 - 1.30 mg/dL [facility] Comment:Testing performed by : [address] [address] Glucose 108 70 - 199 mg/dL AP[facility] [...] was last revised 2022. Testing performed by: [address] [address] Calcium 10.2 8.5 - 10.3 mg/dL [facility] Comment:Testing performed by : [address] [address] Bilirubin, total 0.4 0.1 - 1.2 mg/dL [facility] Comment:Testing performed by : [address] [address] Protein, pl 7.8 6.5 - 8.5 g/dL [facility] Comment:Testing performed by : [address] [address] Albumin 4.9 3.5 - 5.0 g/dL [facility] Comment:Testing performed by : [address] [address] Alk phos 65 40 - 130 Units/L [facility] Comment:Testing performed by : [address] [address] ALT 35 7 - 55 Units/L [facility] Comment:Testing performed by : [address] [address] AST 22 10 - 50 Units/L [facility] Comment:Testing performed by : [address] [address] Blood 09/12/2024 12:1 6 AM HIMS MANAGER 09/12/2024 12:34 AM HIMS MANAGER us Idris Crespo Jr., MD LAB BLOOD ORDERABLES Fi nal Result [facility] [address] [facility] Department [place] [address] * Urine culture Urine, clean voided (09/11/2024 2:21 PM HIMS MANAGER) Urine culture [facility] Comment: CULTURE, URINE, ROUTINE Micro Number: [id number] Test Status: Final Specimen Source: Urine Specimen Quality: Adequate Result: No Growth Urine, clean voided 09/11/2024 2:21 PM HIMS MANAGER 09/12/2024 3:07 AM HIMS MANAGER Sivan CLAIRE LAB MICROBIOLOGY - [facility] AL ORDERABLES Final Result [facility] [address] [place] [address] * POCT urinalysis dipstick (09/11/2024 2:20 PM HIMS MANAGER) Color, Urine, POC Light Yellow Clarity, ur, POC Clear Clear Glucose, ur, POC Negative Negative MG/DL Bilirubin, ur, POC Negative Negative, Small, Moderate, Large Ketones, ur, POC Negative Negative Specific [place], POC 1.020 1.003 - 1.030 Blood, ur, POC Negative Negative pH, ur, POC 8.0 5.0 - 8.0 Protein, ur, POC Negative Negative Urobilinogen, urine, POC 0.2 0.2 - 1.0 mg/dL Nitrite, ur, POC Negative Negative Leukocytes, ur, POC Negative Negative Lot Number [id number] Urine 09/11/2024 2:20 PM HIMS MANAGER Sivan CLAIRE POINT OF CARE TEST ORDER ASTRID Final Result * HM COLONOSCOPY (09/07/2024) Historical Provider HEALTH MAINTENANCE Final Result * 24 HR Holter Monitor (09/05/2024 11:09 AM HIMS MANAGER) Anatomical Region Laterality Modality Electrocardiogra phy Narrative 09/08/2024 4:25 PM HIMS MANAGER Patient Id: Erick Pierre is a 24 y.o. male. MR#: [id number] Date of the procedure: September 05, 2024 [...] Iron profile w/ IBC (08/31/2024 1:45 PM HIMS MANAGER) Pathologist [facility] Iron 91 50 - 195 mcg/dL [facility] TIBC 294 250 - 425 mcg/dL (calc) [facility] Iron saturation 31 20 - 48 % (calc) [facility] 08/31/2024 1:45 PM HIMS MANAGER 08/31/2024 1:45 PM HIMS MANAGER us Sivan CLAIRE LAB BLOOD ORDERABLES Fin al Result [facility] [address] [place] [address] * Vitamin D 25 hydroxy (08/31/2024 1:45 PM HIMS MANAGER) Vitamin D 25-OH 58 30 - 100 [...] D, (D2,D3), LC/MS/MS is recommended: order code 30778 (patients >2yrs). See Note 1 Note 1 For additional information, please refer to http://education.Bespoke/faq/KXJ523 (This link is being provided for informational/ educational purposes only.) Blood 08/31/2024 1:45 PM HIMS MANAGER 08/31/2024 1:45 PM HIMS MANAGER Sivan CLAIRE LAB BLOOD ORDERABLES Fin al Result Performing Organization Address [facility] de Phone Number [facility] [address] [place] [address] * (ABNORMAL) PTH (08/31/2024 1:45 PM HIMS MANAGER) Parathyroid hormone, intact 12(L) 16 - 77 pg/mL [facility] Comment: Interpretive Guide Intact PTH Calcium ------- Normal Parathyroid Normal Normal Hypoparathyroidism Low or Low Normal Low Hyperparathyroidism Primary Normal or High High Secondary High Normal or Low Tertiary High High Non-Parathyroid Hypercalcemia Low or Low Normal High Blood 08/31/2024 1:45 PM HIMS MANAGER 08/31/2024 1:45 PM HIMS MANAGER Sivan CLAIRE LAB BLOOD ORDERABLES Fin al Result Performing Organization Address [facility] de Phone Number [facility] [address] [place] [address] * Hemoglobin A1c (08/31/2024 1:45 PM HIMS MANAGER) Hgb A1C 4.8 <5.7 % of total Hgb [facility] Comment: For the purpose of screening for the presence of diabetes: <5.7% Consistent with the absence of diabetes 5.7-6.4% Consistent with increased risk for diabetes (prediabetes) > or =6.5% Consistent with diabetes This assay result is consistent with a decreased risk of diabetes. Currently, no consensus exists regarding use of hemoglobin A1c for diagnosis of diabetes in children. According to [place] [employer] (ADA) guidelines, hemoglobin A1c <7.0% represents optimal control in non- diabetic patients. Different metrics may apply to specific patient populations. Standards of Medical Care in Diabetes(ADA). Blood 08/31/2024 1:45 PM HIMS MANAGER 08/31/2024 1:45 PM HIMS MANAGER Sivan CLAIRE LAB BLOOD ORDERABLES Fin al Result Performing Organization Address [facility] Co de Phone Number QUEST [facility] [address] [place] [address] * Ferritin (08/31/2024 1:45 PM HIMS MANAGER) Ferritin 279 38 - 380 ng/mL Nanalysis-Dave exa 08/31/2024 1:45 PM HIMS MANAGER 08/31/2024 1:45 PM HIMS MANAGER Sivan CLAIRE LAB BLOOD ORDERABLES Fin al Result Performing Organization Address [facility] Phone Number QUEST [employer] [facility] [address] [place] [address] * Vitamin B12 (08/31/2024 1:45 PM HIMS MANAGER) Pathologist [facility] Vitamin B12 769 200 - 1,100 pg/mL Nanalysis-Le nexa Blood 08/31/2024 1:45 PM HIMS MANAGER 08/31/2024 1:45 PM HIMS MANAGER Sivan CLAIRE LAB BLOOD ORDERABLES Fin al Result Performing Organization Address [facility] Phone Number QUEST [employer] [facility] [address] [place] [address] * (ABNORMAL) Comprehensive metabolic panel (08/31/2024 1:45 PM HIMS MANAGER) Glucose 93 65 - 99 mg/dL [facility] Comment: Fasting reference interval BUN 13 7 - 25 mg/dL [facility] Creatinine 0.86 0.60 - 1.24 mg/dL [facility] eGFR 124 > OR = 60 mL/min/1.7 3m2 Reji Babb BUN/creat ratio SEE NOTE: 6 - 22 (calc) Reji Babb Comment: Not Reported: BUN and Creatinine are within reference range. Sodium 138 135 - 146 mmol/L Reji Babb Potassium, pl 4.4 3.5 - 5.3 mmol/L Reji Babb Chloride 101 98 - 110 mmol/L Reji Veliz-Nina Babb CO2 26 20 - 32 mmol/L Reji Veliz-Nina Babb Calcium 10.1 8.6 - 10.3 mg/dL Reji Veliz-Nina Babb Protein, sr 7.3 6.1 - 8.1 g/dL Reji Veliz-Nina Babb Albumin 5.1 3.6 - 5.1 g/dL Reji Veliz-Nina Babb GLOBULIN 2.2 1.9 - 3.7 g/dL (calc) Reji Babb Alb/glob ratio 2.3 1.0 - 2.5 (calc) Reji Babb Bilirubin, total 0.6 0.2 - 1.2 mg/dL Reji VelizNina Babb Alk phos 46 36 - 130 U/L Reji VelizErenisNina Babb AST 25 10 - 40 U/L Reji Babb ALT (SGPT) 50(H) 9 - 46 U/L Reji Babb Blood 08/31/2024 1:45 PM HIMS MANAGER 08/31/2024 1:45 PM HIMS MANAGER us Sivan CLAIRE LAB BLOOD ORDERABLES Fin al Result REJI Babb [address] [place] [address] * CTA Abdomen Pelvis (08/27/2024 9:33 AM HIMS MANAGER) Anatomical Region Laterality Modality Body N/A Computed Tomogra phy 08/27/2024 10:0 4 AM HIMS MANAGER Narrative 08/27/2024 10:17 AM HIMS MANAGER EXAM DESCRIPTION: CTA ABDOMEN PELVIS REASON FOR [...] is a late venous phase. Per the nuclear medicine technologist the bolus tracking never triggered. Repeat [...] thickening. Normal appendix. No significant diverticular disease. Wduy-zz-rhydimgv colonic stool burden may represent mild constipation [...] Ramon White M.D. MM: MM Report ID: [id number] Reading Location: [place] [address] Procedure Note Ramon White MD - 08/27/2024 [...] a.m. is a latevenous phase. Per the nuclear medicine technologist the bolus tracking never triggered.Repeat contrast [...] wall thickening. Normalappendix. No significant diverticular disease. Fsii-xi-gupxxctm colonic stoolburden may represent mild constipation in [...] Ramon White M.D. MM: MM Report ID: [id number] Reading Location: [place] [address] Mellojayme Ariza MD IM CT PROCEDURES F inal Result * Troponin T high-sensitivity 2-hour (08/27/2024 8:24 AM HIMS MANAGER) Trop T hs <6 <=22 ng/L Comment: Interpretive Data For further hscTnT resources including the diagnostic algorithm and an aid in interpretation, copy and paste this link: https://nrl.testcatalog.org/show/hsTrop Current Interpretive Data last revised 2020. Testing performed by: [address] [address] Trop T hs delta 0 ng/L APURVA GIANG Comment:Testing performed by : [address] [address] Trop T hs interp Insignificant APURVA GIANG Comment:Testing performed by : [address] [address] Blood 08/27/2024 8:24 AM HIMS MANAGER 08/27/2024 8:26 AM HIMS MANAGER us Mello Ariza MD LAB BLOOD ORDERABLE S Final Result APURVA [address] [facility] Department [place] [address] * Urinalysis reflex to microscopic and culture Urine (08/27/2024 6:51 AM HIMS MANAGER) Color, ur Straw Yellow Comment:Testing performed by : [address] [address] Clarity, ur Clear Clear APURVA GIANG Comment:Testing performed by : [address] [address] Specific gravity, ur 1.006 1.003 - 1.030 APURVA GIANG Comment:Testing performed by : [address] [address] pH, urine 6.0 APURVA GIANG Comment: Interpretive Data U rine pH is affected by diet, medications, systemic acid-base disturbances, and renal tubular function. pH may affect urinary stone formation. For example, urine pH below 6.0 may help reduce the tendency for calcium phosphate stones and pH greater than 6.0 may reduce the tendency for uric acid stone formation. Source: [employer] Current Interpretive Data was last revised on 2017 Testing performed by: [address] [address] Protein, ur ql Negative Negative APURVA GIANG Comment:Testing performed by : [facility], [address] [place] [address], [place]., [address] Glucose, ur ql Negative Negative APURVA Comment:Testing performed by : [address], [place]., [address] Ketones, ur Negative Negative APURVA Comment:Testing performed by : [address], [place]., [address] Bilirubin, ur Negative Negative APURVA Comment:Testing performed by : [address], [place]., [address] Blood, ur Negative Negative APURVA Comment:Testing performed by : [address], [place]., [address] Urobilinogen, ur <2.0 <2.0 mg/dL APURVA Comment:Testing performed by : [address], [place]., [address] Nitrite, ur Negative Negative APURVA Comment:Testing performed by : [address], [place]., [address] Leukocyte esterase, ur Negative Negative APURVA Comment:Testing performed by : [address], [place]., [address] UA reflex comment Reflex conditions for microscopic UA and culture not met. APURVA Comment:Testing performed by : [address], [place]., [address] Urine 08/27/2024 6:51 AM HIMS MANAGER 08/27/2024 6:56 AM HIMS MANAGER Mello Ariza MD LAB MICROBIOLOGY - GENERAL ORDERABLES Final Result APURVA [address] [facility] Department [place] [address] * ECG 12 lead (08/27/2024 6:45 AM HIMS MANAGER) Ventricular Rate EKG/Min 50 BPM [facility] Atrial Rate 50 BPM [facility] MO-Interval (MSEC) 168 ms [facility] QRS-Interval (MSEC) 112 ms [facility] QT-Interval (MSEC) 416 ms [facility] QTc 379 ms [facility] P Curran 13 degrees [facility] R Curran -16 degrees [facility] T Curran 2 degrees [facility] Diagnosis Sinus bradycardia with sinus arrhythmia Incomplete right bundle branch block Moderate voltage criteria for LVH, may be normal variant Borderline ECG No previous ECGs available Confirmed by TIMOTHY BEAUCHAMP M.D. ([id number]) on 08/28/2024 8:33:23 PM [facility] 08/27/2024 6:45 AM HIMS MANAGER 08/28/2024 8:33 PM HIMS MANAGER us Mello Ariza MD ECG ORDERABLES Fin al Result Performing Organization Address [facility] de Phone Number [facility] * Troponin T high-sensitivity series (baseline, 2hr, 4hr, 6hr) (08/27/2024 6:41 AM HIMS MANAGER) Trop T hs <6 <=22 ng/L Comment: Interpretive Data For further hscTnT resources including the diagnostic algorithm and an aid in interpretation, copy and paste this link: https://nrl.testcatalog.org/show/hsTrop Current Interpretive Data last revised 2020. Testing performed by: [address] [address] Blood 08/27/2024 6:41 AM HIMS MANAGER 08/27/2024 6:56 AM HIMS MANAGER us Mello Ariza MD LAB BLOOD ORDERABLE S Final Result Performing Organization Address City/[facility]/ZIP Co de Phone Number APURVA [address] [facility] Department [place] [address] * Sepsis Lactate w/ Reflex (08/27/2024 6:41 AM HIMS MANAGER) Sepsis Lactate 0.9 0.7 - 2.0 mmol/L Comment:Testing performed by : [address] [address] Blood 08/27/2024 6:41 AM HIMS MANAGER 08/27/2024 6:56 AM HIMS MANAGER us Mello Ariza MD LAB BLOOD ORDERABLE S Final Result APURVA [address] [place] [address] * eGFR (08/27/2024 6:41 AM HIMS MANAGER) eGFR >90 >=60 mL/min/1. 73 m2 Comment: [...] was last reviewed 2021. Testing performed by: [address] [address] Blood 08/27/2024 6:41 AM HIMS MANAGER 08/27/2024 6:56 AM HIMS MANAGER us Mello Ariza MD LAB BLOOD ORDERABLE S Final Result APURVA [address] [place] [address] * Differential, auto (08/27/2024 6:41 AM HIMS MANAGER) Neutrophil abs 4.7 1.5 - 6.5 K/cumm Comment:Testing performed by : [address] [address] Imm gran abs 0.0 0.0 - 0.1 K/cumm CERNER Comment:Testing performed by : [address] [address] Lymphocyte abs 2.4 0.8 - 3.3 K/cumm CERNER Comment:Testing performed by : [address] [address] Monocyte abs 0.7 0.2 - 0.8 K/cumm [facility] Comment:Testing performed by : [address], [place]., [address] Eosinophil abs 0.2 0.0 - 0.5 K/cumm CERNER Comment:Testing performed by : [address] [address] Basophil abs 0.0 0.0 - 0.1 K/cumm [facility] Comment:Testing performed by : [address] [address] Neutrophil pct 58.3 % [facility] Comment: Interpretive Data Percent cell count reference ranges are not reported, since discordance with absolute values may lead to misinterpretation of CBC data. Current Interpretive Data was last revised on 2017. Testing performed by: [address] [address] Imm gran pct 0.4 % CERNER Comment: Interpretive Data Percent cell count reference ranges are not reported, since discordance with absolute values may lead to misinterpretation of CBC data. Current Interpretive Data was last revised on 2017. Testing performed by: [address] [address] Lymphocyte pct 29.1 % CERNER Comment: Interpretive Data Percent cell count reference ranges are not reported, since discordance with absolute values may lead to misinterpretation of CBC data. Current Interpretive Data was last revised on 2017. Testing performed by: [address] [address] Monocyte pct 8.8 % CERNER Comment: Interpretive Data Percent cell count reference ranges are not reported, since discordance with absolute values may lead to misinterpretation of CBC data. Current Interpretive Data was last revised on 2017. Testing performed by: [address] [address] Eosinophil pct 3.0 % APURVA Comment: Interpretive Data Percent cell count reference ranges are not reported, since discordance with absolute values may lead to misinterpretation of CBC data. Current Interpretive Data was last revised on 2017. Testing performed by: [address] [address] Basophil pct 0.4 % APURVA Comment: Interpretive Data Percent cell count reference ranges are not reported, since discordance with absolute values may lead to misinterpretation of CBC data. Current Interpretive Data was last revised on 2017. Testing performed by: [address] [address] Blood 08/27/2024 6:41 AM HIMS MANAGER 08/27/2024 6:56 AM HIMS MANAGER Mello Ariza MD LAB BLOOD ORDERABLE S Final Result Performing Organization Address City/[facility]/ZIP Co de Phone Number [address] [place] [address] * Thyroid Function [place] (08/27/2024 6:41 AM HIMS MANAGER) Pathologist [facility] TSH 1.51 0.30 - 4.20 mcIUnit/mL Comment:Testing performed by : [address] [address] Blood 08/27/2024 6:41 AM HIMS MANAGER 08/27/2024 6:56 AM HIMS MANAGER Mello Ariza MD LAB BLOOD ORDERABLE S Final Result [address] [place] [address] * (ABNORMAL) CBC with auto differential (08/27/2024 6:41 AM HIMS MANAGER) Pathologist [facility] WBC 8.1 3.8 - 9.9 K/cumm Comment:Testing performed by : [address] [address] Hgb 14.7 13.0 - 17.5 g/dL APURVA Comment:Testing performed by : [address] [address] Hct 41.7 38.9 - 50.3 % APURVA Comment:Testing performed by : [address] [address] Plt 307 150 - 400 K/cumm APURVA Comment:Testing performed by : [address] [address] MPV 10.0 9.1 - 12.3 fL APURVA Comment:Testing performed by : [address], [address] RBC 5.43 4.30 - 5.80 M/cumm APURVA Comment:Testing performed by : [address] [address] MCV 76.8(L) 81.3 - 96.4 fL APURVA Comment:Testing performed by : [address] [address] MCH 27.1 27.1 - 33.3 pg APURVA Comment:Testing performed by : [address] [address] MCHC 35.3 32.3 - 35.7 g/dL APURVA Comment:Testing performed by : [address], [address] RDW CV 14.0 11.1 - 14.9 % APURVA Comment:Testing performed by : [address] [address] RDW SD 38.5 35.7 - 48.1 fL APURVA Comment:Testing performed by : [address] [address] NRBC abs 0.00 0.00 - 0.01 K/cumm APURVA Comment:Testing performed by : [address] [address] Blood 08/27/2024 6:41 AM HIMS MANAGER 08/27/2024 6:56 AM HIMS MANAGER Mello Arzia MD LAB BLOOD ORDERABLE S Final Result Performing Organization Address City/[facility]/ZIP Co de Phone Number APURVA [facility] [place] [address] * Protime-INR (08/27/2024 6:41 AM HIMS MANAGER) PT 13.4 12.0 - 14.6 sec Comment:Testing performed by : [address] [address] INR 1.0 0.9 - 1.2 APURVA Comment: Ref Range High Interpretive data Oral anticoagulant therapeutic ranges: Venous thromboembolism prophylaxis or treatment: 2.0-3.0 CARDIOLOGY Standard range: 2.0-3.0 High-intensity range: 2.5-3.5 Refer to indication-specific guidelines for appropriate target ranges for prosthetic heart valve replacement. Current interpretive data was last revised on 2019. Testing performed by: [address] [address] Blood 08/27/2024 6:41 AM HIMS MANAGER 08/27/2024 6:56 AM HIMS MANAGER us Mello Ariza MD LAB BLOOD ORDERABLE S Final Result Performing Organization Address [facility] Co de Phone Number APURVA [address] [place] [address] * Lipase (08/27/2024 6:41 AM HIMS MANAGER) Lipase 23 10 - 99 Units/L Comment:Testing performed by : [address] [address] Blood 08/27/2024 6:41 AM HIMS MANAGER 08/27/2024 6:56 AM HIMS MANAGER Mello Ariza MD LAB BLOOD ORDERABLE S Final Result APURVA [address] [facility] Department [place] [address] * (ABNORMAL) Comprehensive metabolic panel (08/27/2024 6:41 AM HIMS MANAGER) Sodium 138 135 - 145 mmol/L Comment:Testing performed by : [address] [address] Potassium, pl 4.6 3.3 - 4.9 mmol/L APURVA Comment: Hemolyzed; Potassium value may be falsely elevated by as much as 1.0 mmol/L. Suggest redraw and reanalysis. Testing performed by: [address] [address] Chloride 102 97 - 110 mmol/L APURVA Comment:Testing performed by : [address] [address] CO2 23 22 - 32 mmol/L APURVA Comment:Testing performed by : [address] [address] Anion gap 13 2 - 15 mmol/L APURVA Comment:Testing performed by : [address] [address] BUN 13 6 - 25 mg/dL APURVA Comment:Testing performed by : [address] [address] Creatinine 0.82 0.80 - 1.30 mg/dL APURVA Comment:Testing performed by : [address] [address] Glucose 93 70 - 199 mg/dL APURVA [...] was last revised 2022. Testing performed by: [address] [address] Calcium 10.8(H) 8.5 - 10.3 mg/dL APURVA Comment:Testing performed by : [address] [address] Bilirubin, total 0.5 0.1 - 1.2 mg/dL APURVA Comment:Testing performed by : [address] [address] Protein, pl 7.6 6.5 - 8.5 g/dL APURVA Comment:Testing performed by : [address] [address] Albumin 4.8 3.5 - 5.0 g/dL APURVA Comment:Testing performed by : [address] [address] Alk phos 58 40 - 130 Units/L APURVA Comment:Testing performed by : [address] [address] ALT 60(H) 7 - 55 Units/L APURVA Comment:Testing performed by : [address] [address] AST 41 10 - 50 Units/L APURVA Comment: Hemolyzed; result may be falsely elevated Testing performed by: [address] [address] Blood 08/27/2024 6:41 AM HIMS MANAGER 08/27/2024 6:56 AM HIMS MANAGER us Mello Ariza MD LAB BLOOD ORDERABLE S Final Result APURVA [address] [facility] Department [place] [address] * eGFR (08/08/2024 9:27 AM HIMS MANAGER) eGFR >90 >=60 mL/min/1. 73 m2 Comment: [...] was last reviewed 2021. Testing performed by: [address] [address] Blood 08/08/2024 9:27 AM HIMS MANAGER 08/08/2024 9:32 AM HIMS MANAGER us Iglesia Triplett MD LAB BLOOD ORDERABLES Final Resul t AP[facility]VA [address] [facility] Department [place] [address] * Differential, auto (08/08/2024 9:27 AM HIMS MANAGER) Neutrophil abs 6.1 1.5 - 6.5 K/cumm Comment:Testing performed by : [address] [address] Imm gran abs 0.1 0.0 - 0.1 K/cumm APURVA Comment:Testing performed by : [address] [address] Lymphocyte abs 2.0 0.8 - 3.3 K/cumm APURVA Comment:Testing performed by : [address] [address] Monocyte abs 0.6 0.2 - 0.8 K/cumm APURVA Comment:Testing performed by : [address] [address] Eosinophil abs 0.1 0.0 - 0.5 K/cumm APURVA Comment:Testing performed by : [address] [address] Basophil abs 0.0 0.0 - 0.1 K/cumm APURVA Comment:Testing performed by : [address] [address] Neutrophil pct 68.6 % [facility] Comment: Interpretive Data Percent cell count reference ranges are not reported, since discordance with absolute values may lead to misinterpretation of CBC data. Current Interpretive Data was last revised on 2017. Testing performed by: [address] [address] Imm gran pct 0.6 % APURVA Comment: Interpretive Data Percent cell count reference ranges are not reported, since discordance with absolute values may lead to misinterpretation of CBC data. Current Interpretive Data was last revised on 2017. Testing performed by: [address] [address] Lymphocyte pct 22.6 % [facility] Comment: Interpretive Data Percent cell count reference ranges are not reported, since discordance with absolute values may lead to misinterpretation of CBC data. Current Interpretive Data was last revised on 2017. Testing performed by: [address] [address] Monocyte pct 6.6 % [facility] Comment: Interpretive Data Percent cell count reference ranges are not reported, since discordance with absolute values may lead to misinterpretation of CBC data. Current Interpretive Data was last revised on 2017. Testing performed by: [address] [address] Eosinophil pct 1.3 % [facility] Comment: Interpretive Data Percent cell count reference ranges are not reported, since discordance with absolute values may lead to misinterpretation of CBC data. Current Interpretive Data was last revised on 2017. Testing performed by: [address] [address] Basophil pct 0.3 % [facility] Comment: Interpretive Data Percent cell count reference ranges are not reported, since discordance with absolute values may lead to misinterpretation of CBC data. Current Interpretive Data was last revised on 2017. Testing performed by: [address] [address] Blood 08/08/2024 9:27 AM HIMS MANAGER 08/08/2024 9:32 AM HIMS MANAGER us Iglesia Triplett MD LAB BLOOD ORDERABLES Final Resul t [facility] [address] [facility] [place] [address] * (ABNORMAL) Urinalysis reflex to microscopic and culture Urine (08/08/2024 9:27 AM HIMS MANAGER) Color, ur Yellow Yellow Comment:Testing performed by : [address] [address] Clarity, ur Clear Clear APURVA Comment:Testing performed by : [address] [address] Specific gravity, ur 1.014 1.003 - 1.030 APURVA Comment:Testing performed by : [address] [address] pH, urine 6.0 APURVA Comment: Interpretive Data U rine pH is affected by diet, medications, systemic acid-base disturbances, and renal tubular function. pH may affect urinary stone formation. For example, urine pH below 6.0 may help reduce the tendency for calcium phosphate stones and pH greater than 6.0 may reduce the tendency for uric acid stone formation. Source: [facility] [employer] Current Interpretive Data was last revised on 2017 Testing performed by: [address] [address] Protein, ur ql Negative Negative APURVA Comment:Testing performed by : [address] [address] Glucose, ur ql Negative Negative AP[facility]VA Comment:Testing performed by : [address] [address] Ketones, ur 1+(A) Negative APURVA Comment:Testing performed by : [address] [address] Bilirubin, ur Negative Negative APURVA Comment:Testing performed by : [address] [place] [address] Blood, ur Negative Negative APURVA GIANG Comment:Testing performed by : [address] [address] Urobilinogen, ur <2.0 <2.0 mg/dL APURVA GIANG Comment:Testing performed by : [address], [place]., [address] Nitrite, ur Negative Negative APURVA GIANG Comment:Testing performed by : [address] [address] Leukocyte esterase, ur Negative Negative APURVA GIANG Comment:Testing performed by : [address], [place]., [address] UA reflex comment Reflex conditions for microscopic UA and culture not met. APURVA GIANG Comment:Testing performed by : [address] [address] Urine 08/08/2024 9:27 AM HIMS MANAGER 08/08/2024 9:32 AM HIMS MANAGER us Iglesia Triplett MD LAB MICROBIOLOGY - GENERAL ORDER ASTRID Final Result [facility] Department of Laboratories [place], [place] [id number] * (ABNORMAL) CBC with auto differential (08/08/2024 9:27 AM HIMS MANAGER) WBC 8.9 3.8 - 9.9 K/cumm Comment:Testing performed by : [address] [address] Hgb 15.3 13.0 - 17.5 g/dL APURVA GIANG Comment:Testing performed by : [address] [address] Hct 44.0 38.9 - 50.3 % APURVA GIANG Comment:Testing performed by : [address] [address] Plt 305 150 - 400 K/cumm APURVA GIANG Comment:Testing performed by : [address] [address] MPV 10.0 9.1 - 12.3 fL APURVA GIANG Comment:Testing performed by : [address] [address] RBC 5.68 4.30 - 5.80 M/cumm APURVA GIANG Comment:Testing performed by : [address] [address] MCV 77.5(L) 81.3 - 96.4 fL APURVA Comment:Testing performed by : [address] [address] MCH 26.9(L) 27.1 - 33.3 pg APURVA Comment:Testing performed by : [address] [address] MCHC 34.8 32.3 - 35.7 g/dL APURVA Comment:Testing performed by : [address] [address] RDW CV 14.2 11.1 - 14.9 % APURVA Comment:Testing performed by : [address] [address] RDW SD 38.9 35.7 - 48.1 fL APURVA Comment:Testing performed by : [address] [address] NRBC abs 0.00 0.00 - 0.01 K/cumm APURVA Comment:Testing performed by : [address] [address] Blood Venous blood specimen / Unknown 08/08/2024 9:27 AM HIMS MANAGER 08/08/2024 9:32 AM HIMS MANAGER us Iglesia Triplett MD LAB BLOOD ORDERABLES Final Resul t [facility] Department [place] [address] * Lipase (08/08/2024 9:27 AM HIMS MANAGER) Lipase 16 10 - 99 Units/L Comment:Testing performed by : [address] [address] Blood Venous blood specimen / Unknown 08/08/2024 9:27 AM HIMS MANAGER 08/08/2024 9:32 AM HIMS MANAGER us Iglesia Triplett MD LAB BLOOD ORDERABLES Final Resul t [facility] [address] [facility] Department [place] [address] * Comprehensive metabolic panel (08/08/2024 9:27 AM HIMS MANAGER) Sodium 137 135 - 145 mmol/L Comment:Testing performed by : [address] [address] [address] Potassium, pl 3.7 3.3 - 4.9 mmol/L [facility] Comment:Testing performed by : [address] [address] Chloride 103 97 - 110 mmol/L [facility] Comment:Testing performed by : [address] [address] CO2 24 22 - 32 mmol/L [facility] Comment:Testing performed by : [address] [address] Anion gap 10 2 - 15 mmol/L [facility] Comment:Testing performed by : [address] [address] BUN 9 6 - 25 mg/dL [facility] Comment:Testing performed by : [address] [address] Creatinine 0.80 0.80 - 1.30 mg/dL [facility] Comment:Testing performed by : [address] [address] Glucose 91 70 - 199 mg/dL [facility] [...] was last revised 2022. Testing performed by: [address] [address] Calcium 9.7 8.5 - 10.3 mg/dL [facility] Comment:Testing performed by : [address] [address] Bilirubin, total 0.8 0.1 - 1.2 mg/dL [facility] Comment:Testing performed by : [address] [address] Protein, pl 7.3 6.5 - 8.5 g/dL [facility] Comment:Testing performed by : [address] [address] Albumin 4.7 3.5 - 5.0 g/dL [facility] Comment:Testing performed by : [address] [address] Alk phos 62 40 - 130 Units/L [facility] Comment:Testing performed by : [address] [address] ALT 26 7 - 55 Units/L [facility] Comment:Testing performed by : [address] [address] AST 18 10 - 50 Units/L [facility] Comment:Testing performed by : [address] [address] Blood 08/08/2024 9:27 AM HIMS MANAGER 08/08/2024 9:32 AM HIMS MANAGER us Iglesia Triplett MD LAB BLOOD ORDERABLES Final Resul t [facility] [address] [facility] Department [place] [address] * CT Abdomen Pelvis W Contrast (08/05/2024 6:19 PM HIMS MANAGER) Anatomical Region Laterality Modality Body N/A Computed Tomogra phy 08/05/2024 6:26 PM HIMS MANAGER Impressions 08/05/2024 6:30 PM HIMS MANAGER No acute finding in the abdomen or pelvis. Dictated by: James Harrell MD PHD The radiology attending physician has personally reviewed this study, and had reviewed and/or edited this written report and agrees with it. Electronically signed by: Bishop Viramontes M.D. Narrative 08/05/2024 6:30 PM HIMS MANAGER EXAMINATION: CT ABDOMEN PELVIS W CONTRAST HISTORY: [...] Wesley Tompkins NP IMG CT PROCEDURES Final R esult * eGFR (08/05/2024 5:15 PM HIMS MANAGER) eGFR >90 >=60 mL/min/1. 73 m2 Comment: [...] of Race in Diagnosing Kidney Disease, JASN 202). The CKD-EPI equation should not be used for patients with unstable renal function and has not been validated in children and those over 70. Current interpretive data was last reviewed 2021. Blood 08/05/2024 5:15 PM HIMS MANAGER 08/05/2024 5:25 PM HIMS MANAGER us Isacc Carolina MD LAB BLOOD ORDERABLES F inal Result [facility] Department [place] [address] * (ABNORMAL) Differential, auto (08/05/2024 5:15 PM HIMS MANAGER) Neutrophil abs 9.1(H) 1.5 - 6.5 K/cumm Imm gran abs 0.1 0.0 - 0.1 K/cumm [facility] Lymphocyte abs 1.7 0.8 - 3.3 K/cumm [facility] Monocyte abs 0.7 0.2 - 0.8 K/cumm [facility] Eosinophil abs 0.0 0.0 - 0.5 K/cumm [facility] Basophil abs 0.0 0.0 - 0.1 K/cumm [facility] Neutrophil pct 77.2 % [facility] Comment: Interpretive Data Percent cell count reference ranges are not reported, since discordance with absolute values may lead to misinterpretation of CBC data. Current Interpretive Data was last revised on 2017. Imm gran pct 1.2 % [facility] Comment: Interpretive Data Percent cell count reference ranges are not reported, since discordance with absolute values may lead to misinterpretation of CBC data. Current Interpretive Data was last revised on 2017. Lymphocyte pct 14.7 % [facility] Comment: Interpretive Data Percent cell count reference ranges are not reported, since discordance with absolute values may lead to misinterpretation of CBC data. Current Interpretive Data was last revised on 2017. Monocyte pct 6.3 % [facility] Comment: Interpretive Data Percent cell count reference ranges are not reported, since discordance with absolute values may lead to misinterpretation of CBC data. Current Interpretive Data was last revised on 2017. Eosinophil pct 0.3 % [facility] Comment: Interpretive Data Percent cell count reference ranges are not reported, since discordance with absolute values may lead to misinterpretation of CBC data. Current Interpretive Data was last revised on 2017. Basophil pct 0.3 % [facility] Comment: Interpretive Data Percent cell count reference ranges are not reported, since discordance with absolute values may lead to misinterpretation of CBC data. Current Interpretive Data was last revised on 2017. Blood 08/05/2024 5:15 PM HIMS MANAGER 08/05/2024 5:25 PM HIMS MANAGER us Isacc Carolina MD LAB BLOOD ORDERABLES F inal Result [facility] Department [place] [address] * (ABNORMAL) Urinalysis reflex to microscopic (08/05/2024 5:15 PM HIMS MANAGER) Color, ur Straw Yellow Clarity, ur Clear Clear [facility] Specific gravity, ur 1.017 1.003 - 1.030 [facility] pH, urine 7.5 [facility] Comment: Interpretive Data U rine pH is affected by diet, medications, systemic acid-base disturbances, and renal tubular function. pH may affect urinary stone formation. For example, urine pH below 6.0 may help reduce the tendency for calcium phosphate stones and pH greater than 6.0 may reduce the tendency for uric acid stone formation. Source: [facility] [employer] Current Interpretive Data was last revised on 2017 Protein, ur ql Trace Negative [facility] Glucose, ur ql Negative Negative [facility] Ketones, ur 2+(A) Negative [facility] Bilirubin, ur Negative Negative [facility] Blood, ur Negative Negative [facility] Urobilinogen, ur <2.0 <2.0 mg/dL [facility] Nitrite, ur Negative Negative [facility] Leukocyte esterase, ur Negative Negative [facility] UA reflex comment Reflex conditions for microscopic UA not met. [facility] Urine 08/05/2024 5:15 PM HIMS MANAGER 08/05/2024 5:20 PM HIMS MANAGER us Isacc Carolina MD LAB URINE ORDERABLES F inal Result [facility] Department [place] [address] * (ABNORMAL) CBC with auto differential (08/05/2024 5:15 PM HIMS MANAGER) WBC 11.8(H) 3.8 - 9.9 K/cumm Hgb 17.0 13.0 - 17.5 g/dL [facility] Hct 48.5 38.9 - 50.3 % [facility] Plt 384 150 - 400 K/cumm [facility] MPV 10.2 9.1 - 12.3 fL [facility] RBC 6.30(H) 4.30 - 5.80 M/cumm [facility] MCV 77.0(L) 81.3 - 96.4 fL [facility] MCH 27.0(L) 27.1 - 33.3 pg [facility] MCHC 35.1 32.3 - 35.7 g/dL [facility] RDW CV 14.3 11.1 - 14.9 % [facility] RDW SD 37.9 35.7 - 48.1 fL [facility] NRBC abs 0.00 0.00 - 0.01 K/cumm [facility] Blood Venous blood specimen / Unknown 08/05/2024 5:15 PM HIMS MANAGER 08/05/2024 5:25 PM HIMS MANAGER Isacc Carolina MD LAB BLOOD ORDERABLES F inal Result Performing Organization Address City/[facility]/ZIP Co de Phone Number [facility] [place] [employer] [address] * Lipase (08/05/2024 5:15 PM HIMS MANAGER) Pathologist [facility] Lipase 20 10 - 99 Units/L Blood Venous blood specimen / Unknown 08/05/2024 5:15 PM HIMS MANAGER 08/05/2024 5:25 PM HIMS MANAGER Isacc Carolina MD LAB BLOOD ORDERABLES F inal Result [facility] [place] [address] * (ABNORMAL) Comprehensive metabolic panel (08/05/2024 5:15 PM HIMS MANAGER) Pathologist [facility] Sodium 140 135 - 145 mmol/L Potassium, pl 4.7 3.3 - 4.9 mmol/L [facility] Comment:Hemolyzed; Potassium value may be falsely elevated by as much as 0.6-1.0 mmol/L. Suggest redraw and reanalysis. Chloride 99 97 - 110 mmol/L [facility] CO2 27 22 - 32 mmol/L [facility] Anion gap 14 2 - 15 mmol/L [facility] BUN 12 6 - 25 mg/dL [facility] Creatinine 0.91 0.80 - 1.30 mg/dL [facility] Glucose 97 70 - 199 mg/dL [facility] Comment: Interpretive Data Fasting glucose >/= 126 [...] 2022. Calcium 10.5(H) 8.5 - 10.3 mg/dL [facility] Bilirubin, total 0.8 0.1 - 1.2 mg/dL [facility] Protein, pl 8.5 6.5 - 8.5 g/dL [facility] Albumin 5.3(H) 3.5 - 5.0 g/dL [facility] Alk phos 74 40 - 130 Units/L [facility] ALT 39 7 - 55 Units/L [facility] AST 35 10 - 50 Units/L [facility] Comment:Hemolyzed; result ma y be falsely elevated Blood 08/05/2024 5:15 PM HIMS MANAGER 08/05/2024 5:25 PM HIMS MANAGER Isacc Carolina MD LAB BLOOD ORDERABLES F inal Result [facility] Department [place] [address] from Last 3 Months Insurance [facility] Care Teams High Lift Operator Relationship Specialty Start Date End Date Sivan Boyd PA [address] [address] PCP - General Family Medicine 08/24/24
--- OUTSIDE RECORDS SUMMARY | 2024-10-17 17:41 | XMS_ITS | Clinical Summary ---
Author Organization [facility] Address [address] [place] [address] Care Team Providers Care Emg Technician Name Role Phone Godfrye Curry MD Primary Care Provider [phone] Dipika Reddy MD Unavailable [phone] Source Comments [facility],non-owned Affiliates and Associated Physician Practices is amultiple site organization consisting of ambulatory clinics and hospital sitesin [place], [place], [place] and [place]. This disclosure is being madepursuant to the Care Everywhere program and may not contain all information available regarding this patient. Last updated 18.[facility] Allergies No known active allergies Medications [...] fluticasone propionate (FLONASE) 50 MCG/ACT nasal spray Erick 1 spray into each nostril once daily [...] 07/12/2015 Assessment & Plan (07/12/2015 5:00 PM PLANT FLOOR AUTOMATION MANAGER): Assessment: Has had 4 days of cough, [...] and 20/50 (right). Plan: - Optometry referral [facility] (well child check) 11/02/2013 Assessment & [...] management clinic if does not move to [place] - Also may be text for teens eligible if still living in [facility] in a year Allergic rhinitis [...] 12/07/2010 12/04/2015 Poor sleep hygiene 12/07/2010 6 Encounters Date Type Department Care Team Description 09/25/2024 Orders Only [facility] - [address] [facility] [address] [place] [address] Genia Del Angel APRN-CNP from Last 3 Months Immunizations Name Administration [...] 01/19/2002, 01/17/2001, 2000, Additional history exists MENINGOCOCCAL GROUPS A/C/Y/W VACCINE Aged Out 07/24/2011 No longer eligible based on patient's age to complete this topic HPV VACCINE Completed 08/08/2012, 09/03, 07/24/2011 HEPATITIS B VACCINE Completed 12/04/2015, 01/19/2002, 2000, Additional history exists HEPATITIS C SCREENING Completed 11/12/2017 MENINGOCOCCAL (Group B) VACCINE SHARED DECISION-MAKING Aged Out No longer eligible based on patient's age to complete this topic Procedures Procedure Name Priority Date/Time Associated Diagnosis Comments HEPATITIS SCREEN ACUTE Routine 11/12/2017 9:57 AM CDT Liver disorder from Last 3 Months or Most Recently Relevant to Health Maintenance Results * HEPATITIS SCREEN ACUTE (11/12/2017 9:57 AM CDT) HAV Antibody IgM Non Reactive Non Reactive 11/12/2017 11:57 AM CDT [facility] HBsAg Non Reactive Non Reactive 11/12/2017 11:57 AM CDT [facility] HBc Antibody IgM Non Reactive Non Reactive 11/12/2017 11:57 AM CDT [facility] HCV Antibody Screen Non Reactive Non Reactive 11/12/2017 11:57 AM CDT [facility] HCV S/C Ratio 0.05 0.00 - 0.79 11/12/2017 11:57 AM T [facility] Comment: Ppvddp-zr-qjrqme ratio (S/CO) <0.80: Non Reactive Blood BLOOD SPECIMEN / Unknown Lab Venipuncture / Unknown 11/12/2017 9:57 AM CDT 11/12/2017 10:52 AM CDT Narrative [facility] - 11/12/2017 11:57 AM CDT Non Reactive - Antibodies to Hepatitis C virus (HCV) were not detected, result does not exclude early acute HCV infection. Jose Rafael Thompson MD LAB - CHEMISTRY HILDA MARIO [facility] ([place], [place]) Organization Address City/State/ZIP Co de Phone Number [facility] [address] [place] [place] [address] from Last 3 Months or Most Recently Relevant to Health Maintenance Care Teams Emg Technician Relationship Specialty Start Date End Date Godfrey Curry MD [facility] [place] [address] PCP - General Pediatrics 05/01/14 Dipika Reddy MD [facility] [place] [address] Resident Student Resident 11/27/15
--- OUTSIDE RECORDS SUMMARY | 2024-10-17 17:41 | XMS_ITS | Referral Summary ---
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 Name Role Phone Sivan Boyd Primary Care Provider + Encounters Date Type Department Care Team Description 10/16/2024 2:15 PM CDT Lab [facility] Lab [address] [place] [address] Dysuria; Penile discharge 10/16/2024 1:30 PM CDT Office Visit [address] [phone] Lamine Armstrong MD Dysuria (Primary Dx); Penile discharge; Nausea and vomiting, unspecified vomiting type; Abnormal stools; Abdominal pain; Class 2 obesity due to excess calories without serious comorbidity with body mass index (BMI) of 35.0 to 35.9 in adult 10/05/[address] [phone] Sivan Boyd PA 10/05/2024 Results Follow-Up [facility] Care at [address] [phone] Rubia Stephenson NP 10/05/2024 12:15 PM SCRIPT ARTIST Office Visit [address] [phone] Lamine Armstrong MD Dysuria (Primary Dx); Cloudy urine; Class 2 obesity due to excess calories without serious comorbidity with body mass index (BMI) of 35.0 to 35.9 in adult 10/03/2024 4:45 PM SCRIPT ARTIST - 10/03/2024 11:59 PM SCRIPT ARTIST Hospital Encounter [address] [address] Cloudy urine Discharge Disposition: Discharge to home or self care 10/03/2024 4:30 PM SCRIPT ARTIST Office Visit [facility] Care at [address] [phone] Sole Amador NP Cloudy urine (Primary Dx) 09/28/2024 Letter (Out) [address] [phone] 09/27/2024 4:00 PM SCRIPT ARTIST Office Visit [address] [phone] Sivan Boyd PA UTI symptoms (Primary Dx); Perineum pain, male 09/25/2024 Letter (Out) [address] [address] 09/25/2024 Orders Only [address] [phone] Sivan Boyd PA Abdominal pain (Primary Dx); Abnormal biliary HIDA scan 09/25/2024 Results Follow-Up [address] [phone] Sivan Boyd PA 09/22/2024 12:46 PM SCRIPT ARTIST - 09/22/2024 11:59 PM SCRIPT ARTIST Hospital Encounter [facility] Nuclear Medicine [address] [place] [address] Abdominal pain; Elevated LFTs Discharge Disposition: Discharge to home or self care 09/19/2024 Results Follow-Up [address] [phone] Sivan Boyd PA 09/18/2024 1:47 PM SCRIPT ARTIST - 09/18/2024 11:59 PM SCRIPT ARTIST Hospital Encounter [facility] Cardiac Testing [address] [place] [address] Dizziness; Bradycardia; Abnormal EKG; Near syncope; New daily persistent headache Discharge Disposition: Discharge to home or self care 09/12/2024 12:44 AM SCRIPT ARTIST - 09/12/2024 3:09 AM [facility] Emergency [facility] Emergency Department [address] [place] [address] Idris Crespo Jr., MD Gastrointestinal hemorrhage, unspecified gastrointestinal hemorrhage type (Primary Dx) Discharge Disposition: Discharge to home or self care 09/11/2024 Telephone [facility] Medicine [address] [place] [phone] Sivan Boyd PA 09/11/2024 2:00 PM SCRIPT ARTIST Office Visit [facility] [address] [place] [phone] Sivan Boyd PA Rectal bleeding (Primary Dx); Abdominal pain; Bradycardia; Near syncope; Visual changes; UTI symptoms; Elevated liver enzymes; Belching; Hypercalcemia; Low serum parathyroid hormone (PTH); Anxiousness 09/06/2024 2:43 PM SCRIPT ARTIST - 09/06/2024 3:49 PM [facility] Emergency [facility] Emergency Department [address] [place] [phone] Kev Ackerman MD Left arm pain (Primary Dx) Discharge Disposition: Discharge to home or self care 09/05/2024 10:54 AM SCRIPT ARTIST - 09/05/2024 11:59 PM SCRIPT ARTIST Hospital Encounter [facility] Cardiac Testing [address] [place] [address] Bradycardia Discharge Disposition: Discharge to home or self care 09/04/2024 Telephone [facility] Gastroenterology at [address] [place] [phone] Omar Dao MD 08/28/2024 Orders Only [facility] Gastroenterology at [address] [place] [phone] Omar Dao MD Weight loss (Primary Dx); Nausea and vomiting, unspecified vomiting type; Abdominal pain 08/27/2024 8:13 AM SCRIPT ARTIST - 08/27/2024 11:03 AM [facility] Emergency Department [address] [place] [address] Mello Ariza MD Abdominal pain (Primary Dx) Discharge Disposition: Discharge to home or self care 08/24/2024 12:30 PM [facility] Office Visit [facility] Family Medicine [address] [phone] Sivan Boyd PA Dizziness (Primary Dx); Bradycardia; Abnormal EKG; Near syncope; New daily persistent headache; Diverticulosis 08/08/2024 10:30 AM SCRIPT ARTIST - 08/08/2024 12:50 PM [facility] Emergency [facility] Emergency Department [address] [place] [phone] Intermittent abdominal pain (Primary Dx); Dizziness Discharge Disposition: Discharge to home or self care 08/05/2024 3:40 PM SCRIPT ARTIST - 08/05/2024 9:54 PM [facility] Emergency [facility] Emergency Department [address] [place] [address] Epigastric pain (Primary Dx); Strain of neck muscle, initial encounter Discharge Disposition: Discharge to home or self care from Last 3 Months Allergies No known active allergies Medications sulfamethoxazol [...] 08/25/2024 Assessment & Plan (08/25/2024 12:48 PM SCRIPT ARTIST): Diverticulosis seen on CT of the abdomen/pelvis. [...] on file Legal Sex Male 12:57 PM SCRIPT ARTIST Gender Identity Not on file Sexual Orientation [...] 10/16/2024 1:30 PM CDT Plan of Treatment Not on file Procedures Procedure Name Priority Date/Time Associated Diagnosis Comments URINE CULTURE Routine 10/03/2024 4:45 PM SCRIPT ARTIST Cloudy urine POCT URINALYSIS DIPSTICK Routine 10/03/2024 4:44 PM SCRIPT ARTIST Cloudy urine NM HEPATOBILIARY IMAGING W PHARMACEUTICAL INTERVENTION Schedule Routine, Read Routine (OP Routine) 09/22/2024 3:27 PM SCRIPT ARTIST Abdominal pain Elevated LFTs TRANSTHORACIC ECHO (TTE) COMPLETE W DOPPLER/CF WO CONTRAST Routine 09/18/2024 2:26 PM SCRIPT ARTIST Dizziness Bradycardia Abnormal EKG Near syncope New daily persistent headache CTA ABDOMEN PELVIS W WO CONTRAST ED 09/12/2024 1:29 AM SCRIPT ARTIST EGFR STAT 09/12/2024 12:16 AM SCRIPT ARTIST DIFFERENTIAL AUTO STAT 09/12/2024 12: 16 AM SCRIPT ARTIST LIPASE STAT 09/12/2024 12:16 AM SCRIPT ARTIST COMPREHENSIVE METABOLIC PANEL STAT 09/12/2024 12:16 AM SCRIPT ARTIST CBC WITH AUTO DIFFERENTIAL STAT 09/12/2024 12:16 AM SCRIPT ARTIST URINE CULTURE Routine 09/11/2024 2:21 PM SCRIPT ARTIST UTI symptoms POCT URINALYSIS DIPSTICK Routine 09/11/2024 2:20 PM SCRIPT ARTIST UTI symptoms HM COLONOSCOPY Routine 09/07/2024 HOLTER MONITOR 24 HR Routine 09/05/2024 11:09 AM SCRIPT ARTIST Bradycardia FERRITIN Routine 08/31/2024 1:45 PM SCRIPT ARTIST IRON PROFILE W/ IBC Routine 08/31/2024 1 :45 PM SCRIPT ARTIST HEMOGLOBIN A1C Routine 08/31/2024 1:45 PM SCRIPT ARTIST Screening for diabetes mellitus VITAMIN B12 Routine 08/31/2024 1:45 PM SCRIPT ARTIST Encounter for vitamin deficiency screening VITAMIN D 25 HYDROXY Routine 08/31/2024 1:45 PM SCRIPT ARTIST Hypercalcemia Encounter for vitamin deficiency screening COMPREHENSIVE METABOLIC PANEL Routine 08/31/2024 1:45 PM SCRIPT ARTIST Hypercalcemia PTH Routine 08/31/2024 1:45 PM SCRIPT ARTIST Hypercalcemia CTA ABDOMEN PELVIS W WO CONTRAST ED 08/27/2024 9:33 AM SCRIPT ARTIST TROPONIN T HIGH-SENSITIVITY 2-HOUR Timed 08/27/2024 8:24 AM SCRIPT ARTIST URINALYSIS AND REFLEX TO MICROSCOPIC AND CULTURE STAT 08/27/2024 6:51 AM SCRIPT ARTIST ECG 12-LEAD STAT 08/27/2024 6:45 AM SCRIPT ARTIST EGFR STAT 08/27/2024 6:41 AM SCRIPT ARTIST DIFFERENTIAL AUTO STAT 08/27/2024 6:4 1 AM SCRIPT ARTIST PROTIME-INR STAT 08/27/2024 6:41 AM SCRIPT ARTIST THYROID FUNCTION CASCADE STAT 08/27/2024 6:41 AM SCRIPT ARTIST TROPONIN T HIGH-SENSITIVITY SERIES (BASELINE, 2HR, 4HR, 6HR) STAT 08/27/2024 6:41 AM SCRIPT ARTIST SEPSIS LACTATE WITH REFLEX STAT 08/27/2024 6:41 AM SCRIPT ARTIST LIPASE STAT 08/27/2024 6:41 AM SCRIPT ARTIST COMPREHENSIVE METABOLIC PANEL STAT 08/27/2024 6:41 AM SCRIPT ARTIST CBC WITH AUTO DIFFERENTIAL STAT 08/27/2024 6:41 AM SCRIPT ARTIST EGFR STAT 08/08/2024 9:27 AM SCRIPT ARTIST DIFFERENTIAL AUTO STAT 08/08/2024 9:2 7 AM SCRIPT ARTIST LIPASE STAT 08/08/2024 9:27 AM SCRIPT ARTIST COMPREHENSIVE METABOLIC PANEL STAT 08/08/2024 9:27 AM SCRIPT ARTIST CBC WITH AUTO DIFFERENTIAL STAT 08/08/2024 9:27 AM SCRIPT ARTIST URINALYSIS AND REFLEX TO MICROSCOPIC AND CULTURE STAT 08/08/2024 9:[address] ABDOMEN PELVIS W CONTRAST ED 08/05/2024 6:19 PM SCRIPT ARTIST EGFR STAT 08/05/2024 5:15 PM SCRIPT ARTIST DIFFERENTIAL AUTO STAT 08/05/2024 5:1 5 PM SCRIPT ARTIST URINALYSIS AND REFLEX TO MICROSCOPIC STAT 08/05/2024 5:15 PM SCRIPT ARTIST LIPASE STAT 08/05/2024 5:15 PM SCRIPT ARTIST COMPREHENSIVE METABOLIC PANEL STAT 08/05/2024 5:15 PM SCRIPT ARTIST CBC WITH AUTO DIFFERENTIAL STAT 08/05/2024 5:15 PM SCRIPT ARTIST from Last 3 Months Results * Urine culture Urine, clean voided (10/03/2024 4:45 PM SCRIPT ARTIST) Report Final Report: Less than 100,000 colonies/mL (clinically insignificant growth based on current clinical standards) Comment:Testing performed by : [facility], [address] [place]., [address] Organism (CLINICALLY INSIGNIFICANT [facility] Urine, clean voided 10/03/2024 4:45 PM SCRIPT ARTIST 10/04/2024 12:39 PM SCRIPT ARTIST Narrative [facility] - 10/05/2024 1:12 PM SCRIPT ARTIST Testing performed by [facility] Microbiology Laboratory ([phone]) us Sole Amador NP LAB MICROBIOLOGY - GENERAL ORD ERABLES Final Result [facility] NICHOLSON [address] Department [place] [address] * POCT urinalysis dipstick (10/03/2024 4:44 PM SCRIPT ARTIST) Color, Urine, POC Yellow Clarity, ur, POC Clear Clear Glucose, ur, POC Negative Negative MG/DL Bilirubin, ur, POC Negative Negative, Small, Moderate, Large Ketones, ur, POC Negative Negative Specific [place], POC 1.020 1.003 - 1.030 Blood, ur, POC Negative Negative pH, ur, POC 6.5 5.0 - 8.0 Protein, ur, POC Negative Negative Urobilinogen, urine, POC 0.2 0.2 - 1.0 mg/dL Nitrite, ur, POC Negative Negative Leukocytes, ur, POC Negative Negative Lot Number [id number] Urine 10/03/2024 4:44 PM SCRIPT ARTIST Sole Amador NP POINT OF CARE TEST ORDERABLES Final Result * NM Hepatobiliary Imaging W GBEF (09/22/2024 3:27 PM SCRIPT ARTIST) Anatomical Region Laterality Modality Body N/A Nuclear Medicine 09/22/2024 3:33 PM SCRIPT ARTIST Narrative 09/22/2024 3:41 PM SCRIPT ARTIST EXAM DESCRIPTION: NM HEPATOBILIARY IMAGING W PHARMACEUTICAL [...] Collins Sawant M.D. CH: BHARAT Report ID: [id number] Reading Location: [place] [address] Procedure Note Collins Sawant Jr., MD - [...] Electronically signed by Collins Sawant M.D. CH: CH Report ID: [id number] Reading Location: [place] [address] us Sivan CLAIRE IMMigdalia NM PROCEDURES Final Result * TRANSTHORACIC ECHO (TTE) COMPLETE W DOPPLER/CF WO CONTRAST (09/18/2024 2:26 PM SCRIPT ARTIST) LV EF 57 % CONS SCIMAGE Anatomical Region Laterality Modality Ultrasound 09/18/2024 1:50 PM SCRIPT ARTIST Narrative 09/18/2024 8:28 PM SCRIPT ARTIST Transthoracic Echocardiographic Report Patient Name: ERICK PIERRE L : 2000 (24y 1m) Gender: M Study Date: 09/18/2024 01:50:54 PM Ht(Inch): 72 Wt(Lb): 263.01 BSA: 2.46 Rickshaw Driver: Christy Medellin RDCS Order Provider: SIVAN BOYD Heart Rate: 64 BMI: 35.67 BP: 130 / 80 Ref Provider: SIVAN BOYD PROCEDURES: Echocardiographic Report: ([id number]) Transthoracic complete echo, 2D, spectral and tissue [...] By: Sultan Michael NORTON 09/18/2024 8:27:56 PM SCRIPT ARTIST Procedure Note Sultan Mary Carmen Rodriguez MD - 09/18/2024 Transthoracic Echocardiographic Report Patient Name: ERICK PIERRE L : 2000 (24y 1m) Gender: M Study Date: 09/18/2024 01:50:54 PM Ht(Inch): 72 Wt(Lb): 263.01 BSA: 2.46 Rickshaw Driver: Christy Medellin CONSTANCE Order Provider: SIVAN BOYD Heart Rate: 64 BMI: 35.67 BP: 130 / 80 Ref Provider: SIVAN BOYD PROCEDURES: Echocardiographic Report: ([id number]) Transthoracic complete echo, 2D,spectral and tissue Doppler, [...] LA Length 4C 6.11 cm MV Decel Aucs196.00 msec LA Volume BP 60.90 ml Med [...] By: Sultan Michael NORTON 09/18/2024 8:27:56 PM SCRIPT ARTIST us Sivan CLAIRE CV ECHO PROCEDURES Final Result * CTA Abdomen Pelvis (09/12/2024 1:29 AM SCRIPT ARTIST) Anatomical Region Laterality Modality Body N/A Computed Tomogra phy 09/12/2024 1:43 AM SCRIPT ARTIST Narrative 09/12/2024 1:48 AM SCRIPT ARTIST EXAM DESCRIPTION: CTA ABDOMEN PELVIS REASON FOR [...] Patric Schaefer M.D. AR: ANDRIY Report ID: [id number] Reading Location: [id number] Procedure Note Patric Schaefer MD - 09/12/2024 [...] Patric Schaefer M.D. AR: ANDRIY Report ID: [id number] Reading Location: [place] [address] PROCEDURES Final Re sult * eGFR (09/12/2024 12:16 AM SCRIPT ARTIST) eGFR >90 >=60 mL/min/1. 73 m2 Comment: [...] was last reviewed 2021. Testing performed by: [address] [address] Blood 09/12/2024 12:1 6 AM SCRIPT ARTIST 09/12/2024 12:39 AM SCRIPT ARTIST Xiomy CLAIRE LAB BLOOD ORDERABLES Final Result [place] [id number] [facility] Department [place] [address] * Differential, auto (09/12/2024 12:16 AM SCRIPT ARTIST) Neutrophil abs 4.9 1.5 - 6.5 K/cumm Comment:Testing performed by : [address] [address] Imm gran abs 0.1 0.0 - 0.1 K/cumm AP[facility] Comment:Testing performed by : [address] [address] Lymphocyte abs 2.6 0.8 - 3.3 K/cumm AP[facility]VA Comment:Testing performed by : [address] [address] Monocyte abs 0.6 0.2 - 0.8 K/cumm AP[facility]VA Comment:Testing performed by : [address] [address] Eosinophil abs 0.2 0.0 - 0.5 K/cumm AP[facility] Comment:Testing performed by : [address] [address] Basophil abs 0.0 0.0 - 0.1 K/cumm APURAV Comment:Testing performed by : [address] [address] Neutrophil pct 58.0 % [facility] Comment: Interpretive Data Percent cell count reference ranges are not reported, since discordance with absolute values may lead to misinterpretation of CBC data. Current Interpretive Data was last revised on 2017. Testing performed by: [address] [address] Imm gran pct 0.6 % [facility] Comment: Interpretive Data Percent cell count reference ranges are not reported, since discordance with absolute values may lead to misinterpretation of CBC data. Current Interpretive Data was last revised on 2017. Testing performed by: [address] [address] Lymphocyte pct 31.0 % [facility] Comment: Interpretive Data Percent cell count reference ranges are not reported, since discordance with absolute values may lead to misinterpretation of CBC data. Current Interpretive Data was last revised on 2017. Testing performed by: [address] [address] Monocyte pct 7.3 % [facility] Comment: Interpretive Data Percent cell count reference ranges are not reported, since discordance with absolute values may lead to misinterpretation of CBC data. Current Interpretive Data was last revised on 2017. Testing performed by: [address] [address] Eosinophil pct 2.6 % [facility] Comment: Interpretive Data Percent cell count reference ranges are not reported, since discordance with absolute values may lead to misinterpretation of CBC data. Current Interpretive Data was last revised on 2017. Testing performed by: [address] [address] Basophil pct 0.5 % [facility] Comment: Interpretive Data Percent cell count reference ranges are not reported, since discordance with absolute values may lead to misinterpretation of CBC data. Current Interpretive Data was last revised on 2017. Testing performed by: [address] [address] Blood 09/12/2024 12:1 6 AM SCRIPT ARTIST 09/12/2024 12:34 AM SCRIPT ARTIST us Xiomy CLAIRE LAB BLOOD ORDERABLES Final Result [facility] [address] [facility] Department [place] [address] [phone] * (ABNORMAL) CBC with auto differential (09/12/2024 12:16 AM SCRIPT ARTIST) [facility] WBC 8.4 3.8 - 9.9 K/cumm Comment:Testing performed by : [address] [address] Hgb 14.9 13.0 - 17.5 g/dL AP[facility]VA Comment:Testing performed by : [address] [address] Hct 41.9 38.9 - 50.3 % [facility] Comment:Testing performed by : [address], [address] Plt 305 150 - 400 K/cumm AP[facility] Comment:Testing performed by : [address] [address] MPV 10.5 9.1 - 12.3 fL [facility] Comment:Testing performed by : [address], [address] RBC 5.36 4.30 - 5.80 M/cumm [facility] Comment:Testing performed by : [address] [address] MCV 78.2(L) 81.3 - 96.4 fL [facility] Comment:Testing performed by : [address] [address] MCH 27.8 27.1 - 33.3 pg [facility] Comment:Testing performed by : [address] [address] MCHC 35.6 32.3 - 35.7 g/dL [facility] Comment:Testing performed by : [address], [address] RDW CV 13.3 11.1 - 14.9 % [facility] Comment:Testing performed by : [address] [address] RDW SD 37.3 35.7 - 48.1 fL [facility] Comment:Testing performed by : [address] [address] NRBC abs 0.00 0.00 - 0.01 K/cumm AP[facility] Comment:Testing performed by : [address] [address] Blood Venous blood specimen / Unknown 09/12/2024 12:16 AM SCRIPT ARTIST 09/12/2024 12:34 AM SCRIPT ARTIST Idris Crespo Jr., MD LAB BLOOD ORDERABLES Fi nal Result Performing Organization Address [facility] [[email or web address]] Co de Phone Number [address] [place] [address] * Lipase (09/12/2024 12:16 AM SCRIPT ARTIST) Pathologist [facility] Lipase 24 10 - 99 Units/L Comment:Testing performed by : [address] [address] Blood Venous blood specimen / Unknown 09/12/2024 12:16 AM SCRIPT ARTIST 09/12/2024 12:34 AM SCRIPT ARTIST Idris Crespo Jr., MD LAB BLOOD ORDERABLES Fi nal Result Performing Organization Address [facility] de Phone Number [address] [address] * Comprehensive metabolic panel (09/12/2024 12:16 AM SCRIPT ARTIST) Pathologist [facility] Sodium 141 135 - 145 mmol/L Comment:Testing performed by : [address] [address] Potassium, pl 3.8 3.3 - 4.9 mmol/L [facility] Comment:Testing performed by : [address] [address] Chloride 103 97 - 110 mmol/L [facility] Comment:Testing performed by : [address] [address] CO2 27 22 - 32 mmol/L [facility] Comment:Testing performed by : [address] [address] Anion gap 11 2 - 15 mmol/L [facility] Comment:Testing performed by : [address] [address] BUN 12 6 - 25 mg/dL [facility] Comment:Testing performed by : [address] [address] Creatinine 0.82 0.80 - 1.30 mg/dL [facility] Comment:Testing performed by : [address] [address] Glucose 108 70 - 199 mg/dL AP[facility]VA [...] was last revised 2022. Testing performed by: [address] [address] Calcium 10.2 8.5 - 10.3 mg/dL [facility] Comment:Testing performed by : [address] [address] Bilirubin, total 0.4 0.1 - 1.2 mg/dL [facility] Comment:Testing performed by : [address] [address] Protein, pl 7.8 6.5 - 8.5 g/dL [facility] Comment:Testing performed by : [address] [address] Albumin 4.9 3.5 - 5.0 g/dL [facility] Comment:Testing performed by : [address] [address] Alk phos 65 40 - 130 Units/L [facility] Comment:Testing performed by : [address] [address] ALT 35 7 - 55 Units/L [facility] Comment:Testing performed by : [address] [place] [address] AST 22 10 - 50 Units/L [facility] Comment:Testing performed by : [facility], [address] [place] [address]., [address] Blood 09/12/2024 12:1 6 AM SCRIPT ARTIST 09/12/2024 12:34 AM SCRIPT ARTIST us Idris Crespo Jr., MD LAB BLOOD ORDERABLES Fi nal Result Performing Organization Address City/[facility] [[email or web address]] Co de Phone Number [facility] [address] [facility] Department [place] [address] * Urine culture Urine, clean voided (09/11/2024 2:21 PM SCRIPT ARTIST) Urine culture [facility] Comment: CULTURE, URINE, ROUTINE Micro Number: [id number] Test Status: Final Specimen Source: Urine Specimen Quality: Adequate Result: No Growth Urine, clean voided 09/11/2024 2:21 PM SCRIPT ARTIST 09/12/2024 3:07 AM SCRIPT ARTIST us Sivan CLAIRE LAB MICROBIOLOGY - GENER AL ORDERABLES Final Result Performing Organization Address [facility] [[email or web address]] Co de Phone Number [facility] [address] [place] [address] * POCT urinalysis dipstick (09/11/2024 2:20 PM SCRIPT ARTIST) Color, Urine, POC Light Yellow Clarity, ur, POC Clear Clear Glucose, ur, POC Negative Negative MG/DL Bilirubin, ur, POC Negative Negative, Small, Moderate, Large Ketones, ur, POC Negative Negative Specific [place], POC 1.020 1.003 - 1.030 Blood, ur, POC Negative Negative pH, ur, POC 8.0 5.0 - 8.0 Protein, ur, POC Negative Negative Urobilinogen, urine, POC 0.2 0.2 - 1.0 mg/dL Nitrite, ur, POC Negative Negative Leukocytes, ur, POC Negative Negative Lot Number [id number] Urine 09/11/2024 2:20 PM SCRIPT ARTIST Sivan CLAIRE POINT OF CARE TEST ORDER ASTRID Final Result * COLONOSCOPY (09/07/2024) Historical Provider MD HEALTH MAINTENANCE Final Result * 24 HR Holter Monitor (09/05/2024 11:09 AM SCRIPT ARTIST) Anatomical Region Laterality Modality Electrocardiogra phy Narrative 09/08/2024 4:25 PM SCRIPT ARTIST Patient Id: Erick Pierre is a 24 y.o. male. MR#: [id number] Date of the procedure: September 05, 2024 [...] did not report any symptoms. Copy to iSvan Boyd PA 09/08/2024 Sivan CLAIRE CV CARDIAC SERVICES PROC EDURES Final Result * Iron profile w/ IBC (08/31/2024 1:45 PM SCRIPT ARTIST) Iron 91 50 - 195 mcg/dL [facility] TIBC 294 250 - 425 mcg/dL (calc) [facility] Iron saturation 31 20 - 48 % (calc) [facility] 08/31/2024 1:45 PM SCRIPT ARTIST 08/31/2024 1:45 PM SCRIPT ARTIST Sivan CLAIRE LAB BLOOD ORDERABLES Fin al Result [facility] [address] [address] * Vitamin D 25 hydroxy (08/31/2024 1:45 PM SCRIPT ARTIST) Vitamin D 25-OH 58 30 - 100 [...] D, (D2,D3), LC/MS/MS is recommended: order code 00931 (patients >2yrs). See Note 1 Note 1 For additional information, please refer to http://education.EdgeConneX/faq/OQS397 (This link is being provided for informational/ educational purposes only.) Blood 08/31/2024 1:45 PM SCRIPT ARTIST 08/31/2024 1:45 PM SCRIPT ARTIST Sivan CLAIRE LAB BLOOD ORDERABLES Fin al Result Performing Organization Address [facility] de Phone Number [facility] [address] [place] [address] * (ABNORMAL) PTH (08/31/2024 1:45 PM SCRIPT ARTIST) Parathyroid hormone, intact 12(L) 16 - 77 pg/mL [facility] Comment: Interpretive Guide Intact PTH Calcium ------- Normal Parathyroid Normal Normal Hypoparathyroidism Low or Low Normal Low Hyperparathyroidism Primary Normal or High High Secondary High Normal or Low Tertiary High High Non-Parathyroid Hypercalcemia Low or Low Normal High Blood 08/31/2024 1:45 PM SCRIPT ARTIST 08/31/2024 1:45 PM SCRIPT ARTIST Sivan CLAIRE LAB BLOOD ORDERABLES Fin al Result Performing Organization Address City/[facility]/ZIP Co de Phone Number [facility] [address] [facility] [place] [address] * Hemoglobin A1c (08/31/2024 1:45 PM SCRIPT ARTIST) [facility] Hgb A1C 4.8 <5.7 % of total Hgb [facility] Comment: For the purpose of screening for the presence of diabetes: <5.7% Consistent with the absence of diabetes 5.7-6.4% Consistent with increased risk for diabetes (prediabetes) > or =6.5% Consistent with diabetes This assay result is consistent with a decreased risk of diabetes. Currently, no consensus exists regarding use of hemoglobin A1c for diagnosis of diabetes in children. According to [place] [employer] (ADA) guidelines, hemoglobin A1c <7.0% represents optimal control in non- diabetic patients. Different metrics may apply to specific patient populations. Standards of Medical Care in Diabetes(ADA). Blood 08/31/2024 1:45 PM SCRIPT ARTIST 08/31/2024 1:45 PM SCRIPT ARTIST Sivan CLAIRE LAB BLOOD ORDERABLES Fin al Result [facility] [address] [place] [address] * Ferritin (08/31/2024 1:45 PM SCRIPT ARTIST) [facility] Ferritin 279 38 - 380 ng/mL [facility] 08/31/2024 1:45 PM SCRIPT ARTIST 08/31/2024 1:45 PM SCRIPT ARTIST Sivan CLAIRE LAB BLOOD ORDERABLES Fin al Result [facility] [address] [facility] [place] [address] * Vitamin B12 (08/31/2024 1:45 PM SCRIPT ARTIST) [facility] Vitamin B12 769 200 - 1,100 pg/mL [facility] Blood 08/31/2024 1:45 PM SCRIPT ARTIST 08/31/2024 1:45 PM SCRIPT ARTIST Sivan CLAIRE LAB BLOOD ORDERABLES Fin al Result REJI Hancock [address] [place] [address] * (ABNORMAL) Comprehensive metabolic panel (08/31/2024 1:45 PM SCRIPT ARTIST) Pathologist [facility] Glucose 93 65 - 99 mg/dL Reji Veliz-Nina Babb Comment: Fasting reference interval BUN 13 7 - 25 mg/dL Re[facility] Babb Creatinine 0.86 0.60 - 1.24 mg/dL Re[facility]Nina Babb eGFR 124 > OR = 60 mL/min/1.7 3m2 Reji Veliz-S millie Babb BUN/creat ratio SEE NOTE: 6 (calc) [facility] Comment: Not Reported: BUN and Creatinine are within reference range. Sodium 138 135 - 146 mmol/L [facility]S mill[facility] Babb Potassium, pl 4.4 3.5 - 5.3 mmol/L [facility]S mill[facility]inny Chloride 101 98 - 110 mmol/L [facility] CO2 26 20 - 32 mmol/L [facility] Calcium 10.1 8.6 - 10.3 mg/dL [facility] Protein, sr 7.3 6.1 - 8.1 g/dL [facility] Albumin 5.1 3.6 - 5.1 g/dL [facility] GLOBULIN 2.2 1.9 - 3.7 g/dL (calc) [facility] Alb/glob ratio 2.3 1.0 - 2.5 (calc) [facility] Bilirubin, total 0.6 0.2 - 1.2 mg/dL [facility] Alk phos 46 36 - 130 U/L [facility] AST 25 10 - 40 U/L [facility] ALT (SGPT) 50(H) 9 - 46 U/L [facility] Blood 08/31/2024 1:45 PM SCRIPT ARTIST 08/31/2024 1:45 PM SCRIPT ARTIST Sivan CLAIRE LAB BLOOD ORDERABLES Fin al Result [facility] [address] [place] [address] * CTA Abdomen Pelvis (08/27/2024 9:33 AM SCRIPT ARTIST) Anatomical Region Laterality Modality Body N/A Computed Tomogra phy 08/27/2024 10:0 4 AM SCRIPT ARTIST Narrative 08/27/2024 10:17 AM SCRIPT ARTIST EXAM DESCRIPTION: CTA ABDOMEN PELVIS REASON FOR [...] is a late venous phase. Per the systems technologist the bolus tracking never triggered. Repeat [...] thickening. Normal appendix. No significant diverticular disease. Stgj-cb-gjkvwajt colonic stool burden may represent mild constipation [...] Ramon White M.D. MM: MM Report ID: [id number] Reading Location: [place] [address] Procedure Note Ramon White MD - 08/27/2024 [...] a.m. is a latevenous phase. Per the systems technologist the bolus tracking never triggered.Repeat contrast [...] wall thickening. Normalappendix. No significant diverticular disease. Hcua-zs-wkubdgpi colonic stoolburden may represent mild constipation in [...] Ramon White M.D. MM: MM Report ID: [id number] Reading Location: [id number] us Mello Ariza MD IMG CT PROCEDURES F inal Result * Troponin T high-sensitivity 2-hour (08/27/2024 8:24 AM SCRIPT ARTIST) Trop T hs <6 <=22 ng/L Comment: Interpretive Data For further hscTnT resources including the diagnostic algorithm and an aid in interpretation, copy and paste this link: https://nrl.testcatalog.org/show/hsTrop Current Interpretive Data last revised 2020. Testing performed by: [address] [address] Trop T hs delta 0 ng/L [facility] Comment:Testing performed by : [address] [address] Trop T hs interp Insignificant [facility] Comment:Testing performed by : [address] [address] Blood 08/27/2024 8:24 AM SCRIPT ARTIST 08/27/2024 8:26 AM SCRIPT ARTIST us Mello Ariza MD LAB BLOOD ORDERABLE S Final Result [facility] [address] [facility] Department [place] [address] * Urinalysis reflex to microscopic and culture Urine (08/27/2024 6:51 AM SCRIPT ARTIST) Color, ur Straw Yellow Comment:Testing performed by : [address] [address] Clarity, ur Clear Clear [facility] Comment:Testing performed by : [address] [address] Specific gravity, ur 1.006 1.003 - 1.030 [facility] Comment:Testing performed by : [facility], [address] [place] [address], [place]., [address] pH, urine 6.0 [facility] Comment: Interpretive Data U rine pH is affected by diet, medications, systemic acid-base disturbances, and renal tubular function. pH may affect urinary stone formation. For example, urine pH below 6.0 may help reduce the tendency for calcium phosphate stones and pH greater than 6.0 may reduce the tendency for uric acid stone formation. Source: [facility] [employer] Current Interpretive Data was last revised on 2017 Testing performed by: [facility], [address] [place] [address], [place]., [address] Protein, ur ql Negative Negative [facility] Comment:Testing performed by : [address], [place]., [address] Glucose, ur ql Negative Negative [facility] Comment:Testing performed by : [address], [place]., [address] Ketones, ur Negative Negative [facility] Comment:Testing performed by : [address], [place]., [address] Bilirubin, ur Negative Negative [facility] Comment:Testing performed by : [address], [place]., [address] Blood, ur Negative Negative [facility] Comment:Testing performed by : [address], [place]., [address] Urobilinogen, ur <2.0 <2.0 mg/dL [facility] Comment:Testing performed by : [address], [place]., [address] Nitrite, ur Negative Negative [facility] Comment:Testing performed by : [address], [place]., [address] Leukocyte esterase, ur Negative Negative [facility] Comment:Testing performed by : [address], [place]., [address] UA reflex comment Reflex conditions for microscopic UA and culture not met. [facility] Comment:Testing performed by : [address], [place]., [address] Urine 08/27/2024 6:51 AM SCRIPT ARTIST 08/27/2024 6:56 AM SCRIPT ARTIST us Mello Ariza MD LAB MICROBIOLOGY - GENERAL ORDERABLES Final Result [facility] [address] [facility] Department [place] [address] * ECG 12 lead (08/27/2024 6:45 AM SCRIPT ARTIST) Ventricular Rate EKG/Min 50 BPM [facility] Atrial Rate 50 BPM [facility] IL-Interval (MSEC) 168 ms [facility] QRS-Interval (MSEC) 112 ms [facility] QT-Interval (MSEC) 416 ms [facility] QTc 379 ms [facility] P Holland 13 degrees [facility] R Holland -16 degrees [facility] T Holland 2 degrees [facility] Diagnosis Sinus bradycardia with sinus arrhythmia Incomplete right bundle branch block Moderate voltage criteria for LVH, may be normal variant Borderline ECG No previous ECGs available Confirmed by TIMOTHY BEAUCHAMP M.D. ([id number]) on 08/28/2024 8:33:23 PM [facility] 08/27/2024 6:45 AM SCRIPT ARTIST 08/28/2024 8:33 PM SCRIPT ARTIST us Mello Ariza MD ECG ORDERABLES Fin al Result Performing Organization Address City/[facility]/ZIP Co de Phone Number [facility] * Troponin T high-sensitivity series (baseline, 2hr, 4hr, 6hr) (08/27/2024 6:41 AM SCRIPT ARTIST) Trop T hs <6 <=22 ng/L Comment: Interpretive Data For further hscTnT resources including the diagnostic algorithm and an aid in interpretation, copy and paste this link: https://nrl.testcatalog.org/show/hsTrop Current Interpretive Data last revised 2020. Testing performed by: [facility], [address] [place] [address]., [address] Blood 08/27/2024 6:41 AM SCRIPT ARTIST 08/27/2024 6:56 AM SCRIPT ARTIST us Mello Ariza MD LAB BLOOD ORDERABLE S Final Result Performing Organization Address City/[facility]/ZIP Co de Phone Number [facility] [address] [place] [address] * Sepsis Lactate w/ Reflex (08/27/2024 6:41 AM SCRIPT ARTIST) Sepsis Lactate 0.9 0.7 - 2.0 mmol/L Comment:Testing performed by : [facility], [address] [place] [address]., [address] Blood 08/27/2024 6:41 AM SCRIPT ARTIST 08/27/2024 6:56 AM SCRIPT ARTIST Mello Ariza MD LAB BLOOD ORDERABLE S Final Result Performing Organization Address [facility] [[email or web address]] Co de Phone Number [facility] [address] [place] [address] * eGFR (08/27/2024 6:41 AM SCRIPT ARTIST) eGFR >90 >=60 mL/min/1. 73 m2 Comment: [...] was last reviewed 2021. Testing performed by: [address] [address] Blood 08/27/2024 6:41 AM SCRIPT ARTIST 08/27/2024 6:56 AM SCRIPT ARTIST us Mello Ariza MD LAB BLOOD ORDERABLE S Final Result [facility] [address] [facility] Department [place] [address] * Differential, auto (08/27/2024 6:41 AM SCRIPT ARTIST) Neutrophil abs 4.7 1.5 - 6.5 K/cumm Comment:Testing performed by : [address] [address] Imm gran abs 0.0 0.0 - 0.1 K/cumm [facility] Comment:Testing performed by : [address] [address] Lymphocyte abs 2.4 0.8 - 3.3 K/cumm [facility] Comment:Testing performed by : [address] [address] Monocyte abs 0.7 0.2 - 0.8 K/cumm [facility] Comment:Testing performed by : [address] [address] Eosinophil abs 0.2 0.0 - 0.5 K/cumm [facility] Comment:Testing performed by : [address] [address] Basophil abs 0.0 0.0 - 0.1 K/cumm [facility] Comment:Testing performed by : [address] [address] Neutrophil pct 58.3 % [facility] Comment: Interpretive Data Percent cell count reference ranges are not reported, since discordance with absolute values may lead to misinterpretation of CBC data. Current Interpretive Data was last revised on 2017. Testing performed by: [address] [address] Imm gran pct 0.4 % [facility] Comment: Interpretive Data Percent cell count reference ranges are not reported, since discordance with absolute values may lead to misinterpretation of CBC data. Current Interpretive Data was last revised on 2017. Testing performed by: [address] [address] Lymphocyte pct 29.1 % [facility] Comment: Interpretive Data Percent cell count reference ranges are not reported, since discordance with absolute values may lead to misinterpretation of CBC data. Current Interpretive Data was last revised on 2017. Testing performed by: [address] [address] Monocyte pct 8.8 % [facility] Comment: Interpretive Data Percent cell count reference ranges are not reported, since discordance with absolute values may lead to misinterpretation of CBC data. Current Interpretive Data was last revised on 2017. Testing performed by: [address] [address] Eosinophil pct 3.0 % [facility] Comment: Interpretive Data Percent cell count reference ranges are not reported, since discordance with absolute values may lead to misinterpretation of CBC data. Current Interpretive Data was last revised on 2017. Testing performed by: [address] [address] Basophil pct 0.4 % [facility] Comment: Interpretive Data Percent cell count reference ranges are not reported, since discordance with absolute values may lead to misinterpretation of CBC data. Current Interpretive Data was last revised on 2017. Testing performed by: [address] [address] Blood 08/27/2024 6:41 AM SCRIPT ARTIST 08/27/2024 6:56 AM SCRIPT ARTIST us Mello Ariza MD LAB BLOOD ORDERABLE S Final Result [facility] [address] [facility] Department [place] [address] * Thyroid Function [place] (08/27/2024 6:41 AM SCRIPT ARTIST) TSH 1.51 0.30 - 4.20 mcIUnit/mL Comment:Testing performed by : [address] [address] Blood 08/27/2024 6:41 AM SCRIPT ARTIST 08/27/2024 6:56 AM SCRIPT ARTIST us Mello Ariza MD LAB BLOOD ORDERABLE S Final Result [facility] [address] [facility] Department [place] [address] * (ABNORMAL) CBC with auto differential (08/27/2024 6:41 AM SCRIPT ARTIST) WBC 8.1 3.8 - 9.9 K/cumm Comment:Testing performed by : [address] [address] Hgb 14.7 13.0 - 17.5 g/dL [facility] Comment:Testing performed by : [address] [address] Hct 41.7 38.9 - 50.3 % [facility] Comment:Testing performed by : [address] [address] Plt 307 150 - 400 K/cumm [facility] Comment:Testing performed by : [address] [address] MPV 10.0 9.1 - 12.3 fL [facility] Comment:Testing performed by : [address] [address] RBC 5.43 4.30 - 5.80 M/cumm [facility] Comment:Testing performed by : [address] [address] MCV 76.8(L) 81.3 - 96.4 fL [facility] Comment:Testing performed by : [address] [address] MCH 27.1 27.1 - 33.3 pg [facility] Comment:Testing performed by : [address] [address] MCHC 35.3 32.3 - 35.7 g/dL [facility] Comment:Testing performed by : [address] [address] RDW CV 14.0 11.1 - 14.9 % [facility] GIANG Comment:Testing performed by : [address] [address] RDW SD 38.5 35.7 - 48.1 fL [facility] GIANG Comment:Testing performed by : [address] [address] NRBC abs 0.00 0.00 - 0.01 K/cumm [facility] GIANG Comment:Testing performed by : [address] [address] Blood 08/27/2024 6:41 AM SCRIPT ARTIST 08/27/2024 6:56 AM SCRIPT ARTIST Mello Ariza MD LAB BLOOD ORDERABLE S Final Result Performing Organization Address City/[facility]/ZIP Co de Phone Number [facility] [address] [facility] Department [place] [address] * Protime-INR (08/27/2024 6:41 AM SCRIPT ARTIST) PT 13.4 12.0 - 14.6 sec Comment:Testing performed by : [address] [address] INR 1.0 0.9 - 1.2 [facility] GIANG Comment: Ref Range High Interpretive data Oral anticoagulant therapeutic ranges: Venous thromboembolism prophylaxis or treatment: 2.0-3.0 CARDIOLOGY Standard range: 2.0-3.0 High-intensity range: 2.5-3.5 Refer to indication-specific guidelines for appropriate target ranges for prosthetic heart valve replacement. Current interpretive data was last revised on 2019. Testing performed by: [address] [address] Blood 08/27/2024 6:41 AM SCRIPT ARTIST 08/27/2024 6:56 AM SCRIPT ARTIST Mello Ariza MD LAB BLOOD ORDERABLE S Final Result Performing Organization Address City/[facility]/ZIP Co de Phone Number [facility] [address] [facility] Department [place] [address] * Lipase (08/27/2024 6:41 AM SCRIPT ARTIST) Pathologist [facility] Lipase 23 10 - 99 Units/L Comment:Testing performed by : [address] [address] Blood 08/27/2024 6:41 AM SCRIPT ARTIST 08/27/2024 6:56 AM SCRIPT ARTIST us Mello Ariza MD LAB BLOOD ORDERABLE S Final Result [address] [place] [address] * (ABNORMAL) Comprehensive metabolic panel (08/27/2024 6:41 AM SCRIPT ARTIST) [facility] Sodium 138 135 - 145 mmol/L Comment:Testing performed by : [address] [address] Potassium, pl 4.6 3.3 - 4.9 mmol/L [facility] Comment: Hemolyzed; Potassium value may be falsely elevated by as much as 1.0 mmol/L. Suggest redraw and reanalysis. Testing performed by: [address] [address] Chloride 102 97 - 110 mmol/L [facility] Comment:Testing performed by : [address] [address] CO2 23 22 - 32 mmol/L [facility] Comment:Testing performed by : [address] [address] Anion gap 13 2 - 15 mmol/L [facility] Comment:Testing performed by : [address] [address] BUN 13 6 - 25 mg/dL [facility] Comment:Testing performed by : [address] [address] Creatinine 0.82 0.80 - 1.30 mg/dL [facility] Comment:Testing performed by : [address] [place] [address] Glucose 93 70 - 199 mg/dL [facility] [...] was last revised 2022. Testing performed by: [address] [address] Calcium 10.8(H) 8.5 - 10.3 mg/dL [facility] Comment:Testing performed by : [address] [address] Bilirubin, total 0.5 0.1 - 1.2 mg/dL [facility] Comment:Testing performed by : [address] [address] Protein, pl 7.6 6.5 - 8.5 g/dL [facility] Comment:Testing performed by : [address] [address] Albumin 4.8 3.5 - 5.0 g/dL [facility] Comment:Testing performed by : [address] [address] Alk phos 58 40 - 130 Units/L [facility] Comment:Testing performed by : [address] [address] ALT 60(H) 7 - 55 Units/L [facility] Comment:Testing performed by : [address] [address] AST 41 10 - 50 Units/L [facility] Comment: Hemolyzed; result may be falsely elevated Testing performed by: [address] [address] Blood 08/27/2024 6:41 AM SCRIPT ARTIST 08/27/2024 6:56 AM SCRIPT ARTIST us Mello Ariza MD LAB BLOOD ORDERABLE S Final Result [facility] [address] [email or web address] [address] * eGFR (08/08/2024 9:27 AM SCRIPT ARTIST) eGFR >90 >=60 mL/min/1. 73 m2 Comment: [...] was last reviewed 2021. Testing performed by: [address] [address] Blood 08/08/2024 9:27 AM SCRIPT ARTIST 08/08/2024 9:32 AM SCRIPT ARTIST us Iglesia Triplett MD LAB BLOOD ORDERABLES Final Resul t [facility] [address] [email or web address] [address] * Differential, auto (08/08/2024 9:27 AM SCRIPT ARTIST) Neutrophil abs 6.1 1.5 - 6.5 K/cumm Comment:Testing performed by : [address] [address] Imm gran abs 0.1 0.0 - 0.1 K/cumm [facility] Comment:Testing performed by : [address] [address] Lymphocyte abs 2.0 0.8 - 3.3 K/cumm [facility] Comment:Testing performed by : [address] [address] Monocyte abs 0.6 0.2 - 0.8 K/cumm [facility] Comment:Testing performed by : [address] [address] Eosinophil abs 0.1 0.0 - 0.5 K/cumm [facility] Comment:Testing performed by : [address] [address] Basophil abs 0.0 0.0 - 0.1 K/cumm [facility] Comment:Testing performed by : [address] [address] Neutrophil pct 68.6 % [facility] Comment: Interpretive Data Percent cell count reference ranges are not reported, since discordance with absolute values may lead to misinterpretation of CBC data. Current Interpretive Data was last revised on 2017. Testing performed by: [address] [address] Imm gran pct 0.6 % [facility] Comment: Interpretive Data Percent cell count reference ranges are not reported, since discordance with absolute values may lead to misinterpretation of CBC data. Current Interpretive Data was last revised on 2017. Testing performed by: [address] [address] Lymphocyte pct 22.6 % [facility] Comment: Interpretive Data Percent cell count reference ranges are not reported, since discordance with absolute values may lead to misinterpretation of CBC data. Current Interpretive Data was last revised on 2017. Testing performed by: [address] [address] Monocyte pct 6.6 % [facility] Comment: Interpretive Data Percent cell count reference ranges are not reported, since discordance with absolute values may lead to misinterpretation of CBC data. Current Interpretive Data was last revised on 2017. Testing performed by: [address] [address] Eosinophil pct 1.3 % [facility] Comment: Interpretive Data Percent cell count reference ranges are not reported, since discordance with absolute values may lead to misinterpretation of CBC data. Current Interpretive Data was last revised on 2017. Testing performed by: [address] [address] Basophil pct 0.3 % [facility] Comment: Interpretive Data Percent cell count reference ranges are not reported, since discordance with absolute values may lead to misinterpretation of CBC data. Current Interpretive Data was last revised on 2017. Testing performed by: [address] [address] Blood 08/08/2024 9:27 AM SCRIPT ARTIST 08/08/2024 9:32 AM SCRIPT ARTIST us Iglesia Triplett MD LAB BLOOD ORDERABLES Final Resul t [facility] [address] [facility] Department [place] [address] * (ABNORMAL) Urinalysis reflex to microscopic and culture Urine (08/08/2024 9:27 AM SCRIPT ARTIST) Color, ur Yellow Yellow Comment:Testing performed by : [address] [address] Clarity, ur Clear Clear [facility] Comment:Testing performed by : [address] [address] Specific gravity, ur 1.014 1.003 - 1.030 [facility] Comment:Testing performed by : [address] [address] pH, urine 6.0 [facility] Comment: Interpretive Data U rine pH is affected by diet, medications, systemic acid-base disturbances, and renal tubular function. pH may affect urinary stone formation. For example, urine pH below 6.0 may help reduce the tendency for calcium phosphate stones and pH greater than 6.0 may reduce the tendency for uric acid stone formation. Source: [facility] [employer] Current Interpretive Data was last revised on 2017 Testing performed by: [facility], [address] [place] [address], [place]., [address] Protein, ur ql Negative Negative [facility] Comment:Testing performed by : [address], [place]., [address] Glucose, ur ql Negative Negative [facility] Comment:Testing performed by : [facility], [address] [place] [address], [place]., [address] Ketones, ur 1+(A) Negative [facility] Comment:Testing performed by : [facility], [address] [place] [address], [place]., [address] Bilirubin, ur Negative Negative [facility] Comment:Testing performed by : [address], [place]., [address] Blood, ur Negative Negative [facility] Comment:Testing performed by : [address], [place]., [address] Urobilinogen, ur <2.0 <2.0 mg/dL [facility] Comment:Testing performed by : [address], [place]., [address] Nitrite, ur Negative Negative [facility] Comment:Testing performed by : [address], [place]., [address] Leukocyte esterase, ur Negative Negative [facility] Comment:Testing performed by : [address], [place]., [address] UA reflex comment Reflex conditions for microscopic UA and culture not met. [facility] Comment:Testing performed by : [address], [place]., [address] Urine 08/08/2024 9:27 AM SCRIPT ARTIST 08/08/2024 9:32 AM SCRIPT ARTIST us Iglesia Triplett MD LAB MICROBIOLOGY - GENERAL ORDER ASTRID Final Result [facility]ANG [address] [facility] Department [place] [address] * (ABNORMAL) CBC with auto differential (08/08/2024 9:27 AM SCRIPT ARTIST) WBC 8.9 3.8 - 9.9 K/cumm Comment:Testing performed by : [address] [address] Hgb 15.3 13.0 - 17.5 g/dL [facility] Comment:Testing performed by : [address] [address] Hct 44.0 38.9 - 50.3 % [facility] Comment:Testing performed by : [address] [address] Plt 305 150 - 400 K/cumm [facility] Comment:Testing performed by : [address] [address] MPV 10.0 9.1 - 12.3 fL [facility] Comment:Testing performed by : [address], [address] RBC 5.68 4.30 - 5.80 M/cumm [facility] Comment:Testing performed by : [address] [address] MCV 77.5(L) 81.3 - 96.4 fL [facility] Comment:Testing performed by : [address], [address] MCH 26.9(L) 27.1 - 33.3 pg [facility] Comment:Testing performed by : [address], [address] MCHC 34.8 32.3 - 35.7 g/dL [facility] Comment:Testing performed by : [address], [address] RDW CV 14.2 11.1 - 14.9 % [facility] Comment:Testing performed by : [address] [address] RDW SD 38.9 35.7 - 48.1 fL [facility] Comment:Testing performed by : [address] [address] NRBC abs 0.00 0.00 - 0.01 K/cumm [facility] Comment:Testing performed by : [address] [address] Blood Venous blood specimen / Unknown 08/08/2024 9:27 AM SCRIPT ARTIST 08/08/2024 9:32 AM SCRIPT ARTIST us Iglesia Triplett MD LAB BLOOD ORDERABLES Final Resul t Performing Organization Address City/[facility] [[email or web address]] Co de Phone Number APUR[facility] [address] [address] * Lipase (08/08/2024 9:27 AM SCRIPT ARTIST) Pathologist [facility] Lipase 16 10 - 99 Units/L Comment:Testing performed by : [address] [address] Blood Venous blood specimen / Unknown 08/08/2024 9:27 AM SCRIPT ARTIST 08/08/2024 9:32 AM SCRIPT ARTIST us Iglesia Triplett MD LAB BLOOD ORDERABLES Final Resul t Performing Organization Address [facility] de Phone Number [id number] [place] [address] * Comprehensive metabolic panel (08/08/2024 9:27 AM SCRIPT ARTIST) [facility] Sodium 137 135 - 145 mmol/L Comment:Testing performed by : [address] [address] Potassium, pl 3.7 3.3 - 4.9 mmol/L [facility] Comment:Testing performed by : [address] [address] Chloride 103 97 - 110 mmol/L [facility] Comment:Testing performed by : [address] [address] CO2 24 22 - 32 mmol/L [facility] Comment:Testing performed by : [address] [address] Anion gap 10 2 - 15 mmol/L [facility] Comment:Testing performed by : [address] [address] BUN 9 6 - 25 mg/dL [facility] Comment:Testing performed by : [address] [address] Creatinine 0.80 0.80 - 1.30 mg/dL [facility] Comment:Testing performed by : [address] [address] Glucose 91 70 - 199 mg/dL [facility] [...] was last revised 2022. Testing performed by: [address] [address] Calcium 9.7 8.5 - 10.3 mg/dL [facility] Comment:Testing performed by : [address] [address] Bilirubin, total 0.8 0.1 - 1.2 mg/dL [facility] Comment:Testing performed by : [address] [address] Protein, pl 7.3 6.5 - 8.5 g/dL [facility] Comment:Testing performed by : [address] [address] Albumin 4.7 3.5 - 5.0 g/dL [facility] Comment:Testing performed by : [address] [address] Alk phos 62 40 - 130 Units/L [facility] Comment:Testing performed by : [address] [address] ALT 26 7 - 55 Units/L [facility] Comment:Testing performed by : [address] [address] AST 18 10 - 50 Units/L [facility] Comment:Testing performed by : [address] [address] Blood 08/08/2024 9:27 AM SCRIPT ARTIST 08/08/2024 9:32 AM SCRIPT ARTIST us Iglesia Triplett MD LAB BLOOD ORDERABLES Final Resul t [facility] [address] [facility] Department [place] [address] * CT Abdomen Pelvis W Contrast (08/05/2024 6:19 PM SCRIPT ARTIST) Anatomical Region Laterality Modality Body N/A Computed Tomogra phy 08/05/2024 6:26 PM SCRIPT ARTIST Impressions 08/05/2024 6:30 PM SCRIPT ARTIST No acute finding in the abdomen or pelvis. Dictated by: James Harrell MD PHD The radiology attending physician has personally reviewed this study, and had reviewed and/or edited this written report and agrees with it. Electronically signed by: Bishop Viramontes M.D. Narrative 08/05/2024 6:30 PM SCRIPT ARTIST EXAMINATION: CT ABDOMEN PELVIS W CONTRAST HISTORY: [...] by: Bishop Viramontes M.D. Wesley Tompkins NP IMG CT PROCEDURES Final R esult * eGFR (08/05/2024 5:15 PM SCRIPT ARTIST) eGFR >90 >=60 mL/min/1. 73 m2 Comment: [...] last reviewed 2021. Blood 08/05/2024 5:15 PM SCRIPT ARTIST 08/05/2024 5:25 PM SCRIPT ARTIST Isacc Carolina MD LAB BLOOD ORDERABLES F inal Result [facility] Department [place] [address] * (ABNORMAL) Differential, auto (08/05/2024 5:15 PM SCRIPT ARTIST) Neutrophil abs 9.1(H) 1.5 - 6.5 K/cumm [...] revised on 2017. Eosinophil pct 0.3 % [facility] Comment: Interpretive Data Percent cell count reference ranges are not reported, since discordance with absolute values may lead to misinterpretation of CBC data. Current Interpretive Data was last revised on 2017. Basophil pct 0.3 % [facility] Comment: Interpretive Data Percent cell count reference ranges are not reported, since discordance with absolute values may lead to misinterpretation of CBC data. Current Interpretive Data was last revised on 2017. Blood 08/05/2024 5:15 PM SCRIPT ARTIST 08/05/2024 5:25 PM SCRIPT ARTIST us Isacc Carolina MD LAB BLOOD ORDERABLES F inal Result [facility] Department [place] [address] * (ABNORMAL) Urinalysis reflex to microscopic (08/05/2024 5:15 PM SCRIPT ARTIST) Color, ur Straw Yellow Clarity, ur Clear [...] tendency for uric acid stone formation. Source: [facility] [employer] Current Interpretive Data was last revised on 2017 Protein, ur ql Trace Negative [facility] Glucose, ur ql Negative Negative [facility] Ketones, ur 2+(A) Negative [facility] Bilirubin, ur Negative Negative [facility] Blood, ur Negative Negative [facility] Urobilinogen, ur <2.0 <2.0 mg/dL [facility] Nitrite, ur Negative Negative [facility] Leukocyte esterase, ur Negative Negative [facility] UA reflex comment Reflex conditions for microscopic UA not met. [facility] Urine 08/05/2024 5:15 PM SCRIPT ARTIST 08/05/2024 5:20 PM SCRIPT ARTIST Isacc Carolina MD LAB URINE ORDERABLES F inal Result Performing Organization Address [facility] [[email or web address]] Co de Phone Number [facility] Department [place] [address] * (ABNORMAL) CBC with auto differential (08/05/2024 5:15 PM SCRIPT ARTIST) WBC 11.8(H) 3.8 - 9.9 K/cumm Hgb [...] K/cumm [facility] Blood Venous blood specimen / Unknown 08/05/2024 5:15 PM SCRIPT ARTIST 08/05/2024 5:25 PM SCRIPT ARTIST Isacc Carolina MD LAB BLOOD ORDERABLES F inal Result Performing Organization Address City/[facility]/ZIP Co de Phone Number [facility] [place] [address] * Lipase (08/05/2024 5:15 PM SCRIPT ARTIST) Pathologist [facility] Lipase 20 10 - 99 Units/L Blood Venous blood specimen / Unknown 08/05/2024 5:15 PM SCRIPT ARTIST 08/05/2024 5:25 PM SCRIPT ARTIST Isacc Carolina MD LAB BLOOD ORDERABLES F inal Result [facility] [place] [address] * (ABNORMAL) Comprehensive metabolic panel (08/05/2024 5:15 PM SCRIPT ARTIST) [facility] Sodium 140 135 - 145 mmol/L Potassium, [...] Alk phos 74 40 - 130 Units/L [facility] ALT 39 7 - 55 Units/L [facility] AST 35 10 - 50 Units/L [facility] Comment:Hemolyzed; result ma y be falsely elevated Blood 08/05/2024 5:15 PM SCRIPT ARTIST 08/05/2024 5:25 PM SCRIPT ARTIST us Isacc Carolina MD LAB BLOOD ORDERABLES F inal Result [facility] [place] [address] from Last 3 Months Insurance Care Teams Aircraft De Icer Installer Relationship Specialty Start Date End Date Sivan Boyd PA [address] [facility] [address] [place] [address] PCP - General Family Medicine 08/24/24
== END 2024-10-17 15:47 | disposition home or self-care (01) ==
PROVIDERS: PCP Physician Assistant; Visit Provider Nurse Practitioner Family
DX: R14.0 Abdominal distension (gaseous) (principal); R19.5 Other fecal abnormalities; R19.8 Other specified symptoms and signs involving the digestive system and abdomen
CPT/HCPCS: 87045; 87177; 87209; 87427; 87449